=== PATIENT | female | born 1945 | race Caucasian/White ===

== ENCOUNTER 2021-07-27 01:30 | Inpatient (IN) | payer OTHER ==
[2021-07-27] MEDS ORDERED: NA CHLORIDE 0.9% 500 ML ONE (02:03)
[2021-07-27] MEDS ORDERED: ACETAMINOPHEN 325 MG TABLET ONE (02:03)
[2021-07-27] MEDS ORDERED: METOPROLOL TARTRATE 5 MG/5 ML INJ IV ONE ×3 (02:03→02:58)
[2021-07-27 03:01] LABS: Urine RBC <5 /HPF (NONE SEEN)
[2021-07-27 03:02] LABS: Urine Bacteria >50 /HPF (<20); Urine Mucus 1+ /HPF (NONE SEEN)
[2021-07-27 03:08] LABS: Protime INR 1.06
[2021-07-27] MEDS ORDERED: dilTIAZem HCL 25 MG/5 ML VIAL IV ONE (03:15)
[2021-07-27 03:26] LABS: Absolute Lymphocytes (CBC) 0.9 K/uL (0.7-4.9); Hematocrit 38.6 % (36.0-45.0); Lymphocytes % 9.1 % (15.3-44.8); MPV 8.1 fL (7.6-11.3)
[2021-07-27] MEDS ORDERED: ONDANSETRON 4 MG/2 ML VIAL ONE ×2 (03:43→22:11)
[2021-07-27] MEDS ORDERED: FENTANYL CITR 100 MCG/2 ML ONE ×3 (03:43→22:11)
[2021-07-27 03:49] LABS: Albumin 3.1 g/dL (3.4-5.0); Bilirubin Direct 0.1 mg/dL (0-0.2); Bilirubin Total 0.4 mg/dL (0.2-1.0); Protein, Total 7.6 g/dL (6.4-8.2)
[2021-07-27 04:04] LABS: Troponin (Emerg Dept Use Only) 0.1 ng/mL (0.0-0.045)
[2021-07-27 04:06] LABS: Magnesium 1.4 mg/dL (1.8-2.4)
[2021-07-27] MEDS ORDERED: Magnesium Sulfate 2gm IVPB 2 G/50 ML BAG IV ONE (04:12)
[2021-07-27] MEDS ORDERED: POTASSIUM 25 MEQ EFFERV TAB ONE (04:12)
--- NOTE | 2021-07-27 04:48 | ER ---
Nurse's Notes [facility] Name: Neela Staton Age: 76 yrs Sex: Female : 1945 Arrival Date: 07/27/2021 Time: 01:36 Bed 18 Private MD: Diagnosis: Atrail fibrillation with RVR. Elevated Troponin. Cervical strain. S/P Fall. Hypomagnesemia. Hypokalemia Presentation: 07/27 01:43 Chief complaint: Patient states: " I have this pain in my neck that comes and goes." tw5 EMS states: " She was called because she had a fall last night and tonight. Her main complaint is a pain in her neck that is intermediate". Coronavirus screen: Vaccine status: Patient reports receiving the 2nd dose of the covid vaccine. Date October 2020. Ebola Screen: Patient negative for fever greater than or equal to 101.5 degrees Fahrenheit, and additional compatible Ebola Virus Disease symptoms Patient denies exposure to infectious person. Patient denies travel to an Ebola-affected area in the 21 days before illness onset. 01:43 Method Of Arrival: EMS: [facility] tw5 01:48 Care prior to arrival: None. Mechanism of Injury: Fall Daughter states " going to the 5 bathroom with her walker". Trauma event details: Injury occurred in the [facility], Injury occurred: at home. Injury occurred: July 27, 2021 Injury occurred at: 09:00. 01:48 Acuity: BETHANY 3 tw5 02:41 Initial Sepsis Screen: Does the patient meet any 2 criteria? HR > 90 bpm. Does the tw5 patient have a suspected source of infection? No. Patient's initial sepsis screen is negative. Risk Assessment: Do you want to hurt yourself or someone else? Patient reports no desire to harm self or others. Onset of symptoms is unknown. Trauma Activation: Alert Physician: ED Physician; Name: Dr. FARNSWORTH; Notified At: ; Arrived At: Physician: General Surgeon; Name: ; Notified At: ; Arrived At: Physician: Radiology; Name: ; Notified At: ; Arrived At: Physician: Respiratory; Name: ; Notified At: ; Arrived At: Physician: Lab; Name: ; Notified At: ; Arrived At: Trauma Activation: Alert Physician: ED Physician; Name: Paulie; Notified At: 01:46; Arrived At: 01:46 Physician: General Surgeon; Name: N/A; Notified At: 01:46; Arrived At: Physician: Radiology; Name: Poncho; Notified At: 01:46; Arrived At: 01:48 Physician: Respiratory; Name: N/A; Notified At: 01:46; Arrived At: Physician: Lab; Name: N/A; Notified At: 01:46; Arrived At: Historical: - Allergies: 01:58 Codeine; tw5 - Home Meds: 02:34 alprazolam 0.25 mg Oral tab 1 tab twice a day [Active]; esomeprazole magnesium 40 mg tw5 oral cpDR 1 cap once daily [Active]; levothyroxine 100 mcg cap 1 cap once daily [Active]; trazodone 100 mg Oral tab 1 tab once daily [Active]; cyclobenzaprine 10 mg Oral tab 1 tab once daily [Active]; metoprolol succinate 50 mg oral CSpX 1 cap once daily [Active]; ezetimibe 10 mg oral tab 1 tab once daily [Active]; tamsulosin 0.4 mg oral cap 1 cap once daily [Active]; hydrochlorothiazide 25 mg Oral tab 1 tab once daily [Active]; hydrochlorothiazide 25 mg Oral tab 1 tab once daily [Active]; amlodipine 10 mg tab 1 tab once daily [Active]; Cymbalta 30 mg oral cpDR 1 cap once daily [Active]; - Immunization history: Last tetanus immunization: unknown. - Social history:: Smoking status: Patient reports the use of cigarette tobacco products, smokes one-half pack cigarettes per day. Screenin:20 Abuse screen: Denies threats or abuse. Denies injuries from another. Nutritional tw5 screening: No deficits noted. Tuberculosis screening: No symptoms or risk factors identified. Fall Risk Fall in past 12 months (25 points). Secondary diagnosis (15 points) IV access (20 points). Ambulatory Aid- Crutches/Cane/Walker (15 pts). Gait- Weak (10 pts.). Mental Status- Oriented to own ability (0 pts). Primary Survey: 01:48 NO uncontrolled hemorrhage observed. A: Airway: patent. Breathing/Chest: Respiratory tw5 pattern: regular. Circulation: Cardiac rhythm: atrial fibrillation with rapid ventricular response. Disability Alert. Exposure/Environment: All clothing and personal items were removed. Forensic evidence collection is not deemed to be indicated at this time. Items placed in patient belonging bag. Reassessment Airway Airway Patent Breathing/Chest Respiratory pattern Regular Circulation Heart rhythm Atrial fibrillation Disability Alert. Assessment: 01:48 General: Appears in no apparent distress. Behavior is calm, cooperative, appropriate tw5 for age. Pain: Pain currently is 0 out of 10 on a pain scale. at worst was 10 out of 10 on a pain scale. Quality of pain is described as dull, " it a dull and quick pain." Is intermittent. Neuro: Level of Consciousness is awake, alert, obeys commands. 01:52 General: Daughter at the bedside states ' She had Afib at one point in time, but this tw5 Afib is new". 02:05 Derm: Skin is Bruising that is dark purple, on submental area. tw5 02:20 Cardiovascular: Capillary refill < 3 seconds Rhythm is atrial fibrillation with rapid tw5 ventricular response. Respiratory: Airway is patent Trachea midline Respiratory pattern is regular. : Urine is cloudy. 02:20 EENT: Oral mucosa is dry. Derm: Skin is fragile, is thin, with poor turgor Skin is dry, tw5 Skin is normal. 03:23 Reassessment: Patient appears in no apparent distress at this time. No changes from tw5 previously documented assessment. 04:07 Pain: Pain currently is 7 out of 10 on a pain scale. tw5 Vital Signs: 01:43 BP 178 / 79; Pulse 141; Resp 14; Temp 97.9; Pulse Ox 97% on R/A; Weight 81.65 kg; tw5 Height 5 ft. 7 in. (170.18 cm); Pain 0/10; 02:25 BP 135 / 68; Pulse 132; Resp 14; Pulse Ox 98% on R/A; tw5 02:25 BP 132 / 100; Pulse 149; Resp 16; Pulse Ox 99% on R/A; tw5 02:56 BP 139 / 95; Pulse 121; Resp 16; Pulse Ox 97% on R/A; tw5 03:08 BP 124 / 91; Pulse 139; Resp 14; Pulse Ox 97% on R/A; tw5 03:33 BP 115 / 97; Pulse 114; Resp 18; Pulse Ox 95% on R/A; tw5 03:47 Pulse 118; tw5 01:43 Body Mass Index 28.19 (81.65 kg, 170.18 cm) tw5 Homero Coma Score: 01:48 Eye Response: spontaneous(4). Verbal Response: oriented(5). Motor Response: obeys tw5 commands(6). Total: 15. Trauma Score (Adult): 01:48 Eye Response: spontaneous(1); Verbal Response: oriented(1); Motor Response: obeys tw5 commands(2); Systolic BP: > 89 mm Hg(4); Respiratory Rate: 10 to 29 per min(4); [place] Score: 15; Trauma Score: 12 ED Course: 01:36 Patient arrived in ED. mw2 01:36 Flaquito Farnsworth MD is Attending Physician. pkl 01:43 Steffi Burks is Primary Nurse. 01:49 Triage completed. tw 02:05 No apparent distress. Awaiting lab results, Awaiting CT Scan. tw 02:05 Initial lab(s) drawn, by me, sent to lab. Urine collected: straight cath specimen, cloudy, Amount Returned: 100mL. 02:05 Maintain EMS IV. Dressing intact. Good blood return noted. Site clean \\T\\ dry. Gauge \\T\\ tw 5 site: 20 LAC. 02:05 Thermoregulation: warm blanket given to patient. tw 02:16 Basic Metabolic Panel Sent. tw 02:16 Basic Metabolic Panel Sent. 02:16 CBC with Diff Sent. 02:16 Magnesium Sent. tw 02:16 PT-INR Sent. tw 02:16 NT PRO-BNP Sent. tw 02:16 LFT's Sent. 02:16 Troponin (emerg Dept Use Only) Sent. 02:20 X-ray(s) taken. tw 02:20 Patient has correct armband on for positive identification. Placed in gown. Bed in low tw5 position. Call light in reach. Side rails up X 1. Adult w/ patient. site monitor on. Pulse ox on. NIBP on. Door closed. Noise minimized. Lights dimmed. Moved to private room. Verbal reassurance given. 02:[address] tw5 02:26 XRAY Chest (1 view) In Process Unspecified. EDMS 02:[address]. tw5 02:57 Urine Microscopic Only Sent. tw 02:57 NT PRO-BNP Sent. tw 02:57 Magnesium Sent. tw 02:57 LFT's Sent. tw 02:57 CBC with Diff Sent. tw 02:57 PT-INR Sent. tw 02:57 Troponin (emerg Dept Use Only) Sent. tw5 03:02 CT Traumagram (Head C Spine CAP wo con) In Process Unspecified. EDMS 04:05 Notified ED physician of a critical lab result(s). Magnesium of 1.4. Informed by Pat soler from the Lab. 04:44 Reid Blakely DO is Hospitalizing Provider. pkl 09:34 No provider procedures requiring assistance completed. Patient admitted, IV remains in ll1 place. 09:35 Patient maintains SpO2 saturation greater than 95% on room air. ll1 09:35 Patient n/a. ll1 Administered Medications: 02:08 Drug: Tylenol 650 mg Route: PO; tw 02:57 Follow up: Response: No adverse reaction; Pain is unchanged, physician notified tw5 02:11 Drug: Lopressor (metoprolol) 5 mg Route: IVP; Site: left antecubital; 02:57 Follow up: Response: No adverse reaction; Cardiac rhythm is unchanged tw 02:16 Drug: NS 0.9% 1000 ml Route: IV; Rate: 100 ml/hr; Site: left antecubital; tw 07:15 Follow up: Response: No adverse reaction; IV Status: Completed infusion; IV Intake: ll1 500ml 02:57 Drug: Lopressor (metoprolol) 5 mg Route: IVP; Site: left antecubital; tw 02:58 Follow up: Response: No adverse reaction; Cardiac rhythm is unchanged tw 03:05 Drug: Lopressor (metoprolol) 5 mg Route: IVP; Site: left antecubital; tw 03:22 Follow up: Response: No adverse reaction; Cardiac rhythm is unchanged 03:17 Drug: Cardizem (diltiazem) 10 mg Route: IVP; Site: left antecubital; tw5 03:47 Follow up: Pulse 118 bpm; Response: No adverse reaction tw5 03:47 Not Given (Physician Discretion): Cardizem (diltiazem) 10 mg IVP once; Over 2 minutes tw5 03:47 Drug: Zofran (Ondansetron) 4 mg Route: IVP; Site: left antecubital; tw5 04:05 Follow up: Response: No adverse reaction tw5 03:49 Drug: fentaNYL (PF) 25 mcg Route: IVP; Site: left antecubital; tw5 04:11 Follow up: Response: No adverse reaction tw5 04:33 Drug: Magnesium Sulfate 2 grams Route: IVPB; Infused Over: 2 hrs; Site: left tw5 antecubital; 06:45 Follow up: Response: No adverse reaction; IV Status: Completed infusion; IV Intake: ll1 100ml 04:33 Drug: K-Lyte (potassium) Effervescent Tablet 50 mEq Route: PO; tw5 09:33 Follow up: Response: No adverse reaction ll1 05:12 Drug: Lovenox (enoxaparin) 1 mg/kg Route: Sub-Q; Site: left lower abdomen; tw5 09:31 Follow up: Response: No adverse reaction ll1 Intake: 01:48 PO: 0ml; Total: 0ml. tw5 06:45 IV: 100ml; Total: 100ml. ll1 07:15 IV: 500ml; Total: 600ml. ll1 Output: 01:48 Urine: 0ml; Total: 0ml. tw5 Outcome: 04:47 Decision to Hospitalize by Provider. pkl 09:34 Admitted to ICU accompanied by nurse, family with patient, via stretcher, room ER HOLD ll1 30, on monitor, with chart, Report called to PER DIEM INTERPRETER 09:34 Condition: stable 09:34 Instructed on the need for admit. 09:35 Patient's length of stay in the Emergency Department was greater than 2 hours. ll1 09:35 Patient left the ED. ll1 Signatures: Dispatcher [employer] EDMS Flaquito Farnsworth MD MD pkl Shira Hardwick, RN RN lp1 Abe Steward mw2 Owen Millan RN RN ll1 Steffi Burks tw5
--- NOTE | 2021-07-27 04:48 | EDPHYS ---
Physician Documentation [facility] Name: Neela Staton Age: 76 yrs Sex: Female : 1945 Arrival Date: 07/27/2021 Time: 01:36 Bed 18 Private MD: ED Physician Flaquito Apodaca HPI: 07/27 01:58 This 76 yrs old Female presents to ER via EMS with complaints of Facial pkl Injury. 01:58 Details of fall: The patient fell from an upright position. Onset: The symptoms/episode pkl began/occurred yesterday, Patient fell again tonight. Associated injuries: The patient sustained injury to the head, neck injury, pain with movement. Historical: - Allergies: 01:58 Codeine; tw5 - Home Meds: 02:34 alprazolam 0.25 mg Oral tab 1 tab twice a day [Active]; esomeprazole magnesium 40 mg tw5 oral cpDR 1 cap once daily [Active]; levothyroxine 100 mcg cap 1 cap once daily [Active]; trazodone 100 mg Oral tab 1 tab once daily [Active]; cyclobenzaprine 10 mg Oral tab 1 tab once daily [Active]; metoprolol succinate 50 mg oral CSpX 1 cap once daily [Active]; ezetimibe 10 mg oral tab 1 tab once daily [Active]; tamsulosin 0.4 mg oral cap 1 cap once daily [Active]; hydrochlorothiazide 25 mg Oral tab 1 tab once daily [Active]; hydrochlorothiazide 25 mg Oral tab 1 tab once daily [Active]; amlodipine 10 mg tab 1 tab once daily [Active]; Cymbalta 30 mg oral cpDR 1 cap once daily [Active]; - Immunization history: Last tetanus immunization: unknown. - Social history:: Smoking status: Patient reports the use of cigarette tobacco products, smokes one-half pack cigarettes per day. ROS: 01:58 Eyes: Negative for injury, pain, redness, and discharge, ENT: Negative for injury, pkl pain, and discharge. 01:58 Neck: Positive for pain with movement. 01:58 Cardiovascular: Negative for chest pain. 01:58 Respiratory: Negative for cough, shortness of breath. 01:58 Abdomen/GI: Negative for abdominal pain, nausea, vomiting, and diarrhea. 01:58 Back: Negative for injury or acute deformity, acute changes. 01:58 : Negative for urinary symptoms. 01:58 MS/extremity: Negative for acute changes, injury or acute deformity. 01:58 Skin: Positive for ecchymosis, of the chin. 01:58 Neuro: Negative for altered mental status, loss of consciousness. Exam: 01:58 Eyes: Pupils equal round and reactive to light, extra-ocular motions intact. Lids and pkl lashes normal. Conjunctiva and sclera are non-icteric and not injected. Cornea within normal limits. Periorbital areas with no swelling, redness, or edema. 01:58 Head/face: Noted is ecchymosis, that is mild, of the chin. 01:58 Neck: ROM/movement: pain, that is moderate, with any movement. 01:58 Chest/axilla: Exam negative for acute changes. 01:58 Cardiovascular: Rate: tachycardic, actual rate is 141 bpm, Rhythm: irregularly irregular. 01:58 ECG was reviewed by the Attending Physician. Atrial fib. with RVR ( 141 ) 01:58 Respiratory: the patient does not display signs of respiratory distress, Respirations: normal, Breath sounds: are clear throughout. 01:58 Abdomen/GI: Bowel sounds: normal, Palpation: abdomen is soft and non-tender, in all quadrants. 01:58 Back: Exam negative for acute changes. 01:58 : Exam negative for acute changes. 01:58 Musculoskeletal/extremity: Exam is negative for acute changes. 01:58 Skin: Exam negative for rash. 01:58 Neuro: Orientation: is normal, Mentation: is normal, Cranial nerves: grossly normal, Motor: is normal. Vital Signs: 01:43 BP 178 / 79; Pulse 141; Resp 14; Temp 97.9; Pulse Ox 97% on R/A; Weight 81.65 kg; tw5 Height 5 ft. 7 in. (170.18 cm); Pain 0/10; 02:25 BP 135 / 68; Pulse 132; Resp 14; Pulse Ox 98% on R/A; tw5 02:25 BP 132 / 100; Pulse 149; Resp 16; Pulse Ox 99% on R/A; tw5 02:56 BP 139 / 95; Pulse 121; Resp 16; Pulse Ox 97% on R/A; tw5 03:08 BP 124 / 91; Pulse 139; Resp 14; Pulse Ox 97% on R/A; tw5 03:33 BP 115 / 97; Pulse 114; Resp 18; Pulse Ox 95% on R/A; tw5 03:47 Pulse 118; tw5 01:43 Body Mass Index 28.19 (81.65 kg, 170.18 cm) tw5 Homero Coma Score: 01:48 Eye Response: spontaneous(4). Verbal Response: oriented(5). Motor Response: obeys tw5 commands(6). Total: 15. Trauma Score (Adult): 01:48 Eye Response: spontaneous(1); Verbal Response: oriented(1); Motor Response: obeys tw5 commands(2); Systolic BP: > 89 mm Hg(4); Respiratory Rate: 10 to 29 per min(4); Homero Score: 15; Trauma Score: 12 MDM: 01:36 Patient medically screened. pkl 04:40 Data reviewed: vital signs, nurses notes, lab test result(s), EKG, radiologic studies, pkl CT scan, plain films. ED course: Talked to Elmer Lui ( COMPOSITION MIXER ) Admit to Dr. Blakely. 07/27 01:54 Order name: Basic Metabolic Panel pkl 07/27 01:54 Order name: CBC with Diff; Complete Time: 03:30 pkl 07/27 01:54 Order name: LFT's; Complete Time: 04:10 pkl 07/27 01:54 Order name: Magnesium; Complete Time: 04:10 pkl 07/27 01:54 Order name: NT PRO-BNP; Complete Time: 04:10 pkl 07/27 01:54 Order name: PT-INR; Complete Time: 03:23 pkl 07/27 01:54 Order name: Troponin (emerg Dept Use Only); Complete Time: 04:10 pkl 07/27 01:54 Order name: COVID-19 SARS RT PCR (Document "Date of Onset" if Symptomatic); Complete pk Time: 03:25 07/27 01:54 Order name: Basic Metabolic Panel; Complete Time: 04:10 EDMS 07/27 02:39 Order name: Urine Microscopic Only; Complete Time: 03:07 mw2 07/27 03:04 Order name: Urine Culture EDMS 07/27 06:51 Order name: Procalcitonin; Complete Time: 19:04 EDMS 07/27 09:04 Order name: Troponin I; Complete Time: 19:04 [facility] 07/27 09:04 Order name: T4 Free; Complete Time: 19:04 [facility] 07/27 01:54 Order name: XRAY Chest (1 view); Complete Time: 19:04 [facility] 07/27 01:54 Order name: EKG; Complete Time: 01:54 [facility] 07/27 01:56 Order name: CT Traumagram (Head C Spine CAP wo con) pk 07/27 09:04 Order name: Thyroid Stimulating Hormone; Complete Time: 19:04 [facility] 07/27 01:54 Order name: Cardiac monitoring; Complete Time: 01:58 [facility] 07/27 01:54 Order name: EKG - Nurse/Tech; Complete Time: 02:16 [facility] 07/27 01:54 Order name: IV Saline Lock; Complete Time: 02:16 [facility] 07/27 01:54 Order name: Labs collected and sent; Complete Time: 02:16 [facility] 07/27 01:54 Order name: O2 Per Protocol; Complete Time: 02:16 [facility] 07/27 01:54 Order name: O2 Sat Monitoring; Complete Time: 02:16 [facility] 07/27 01:54 Order name: Urine Dipstick-Ancillary (obtain specimen); Complete Time: 02:16 pk Administered Medications: 02:08 Drug: Tylenol 650 mg Route: PO; tw5 02:57 Follow up: Response: No adverse reaction; Pain is unchanged, physician notified tw5 02:11 Drug: Lopressor (metoprolol) 5 mg Route: IVP; Site: left antecubital; tw5 02:57 Follow up: Response: No adverse reaction; Cardiac rhythm is unchanged tw5 02:16 Drug: NS 0.9% 1000 ml Route: IV; Rate: 100 ml/hr; Site: left antecubital; tw5 07:15 Follow up: Response: No adverse reaction; IV Status: Completed infusion; IV Intake: ll1 500ml 02:57 Drug: Lopressor (metoprolol) 5 mg Route: IVP; Site: left antecubital; tw5 02:58 Follow up: Response: No adverse reaction; Cardiac rhythm is unchanged tw5 03:05 Drug: Lopressor (metoprolol) 5 mg Route: IVP; Site: left antecubital; tw5 03:22 Follow up: Response: No adverse reaction; Cardiac rhythm is unchanged tw5 03:17 Drug: Cardizem (diltiazem) 10 mg Route: IVP; Site: left antecubital; tw5 03:47 Follow up: Pulse 118 bpm; Response: No adverse reaction tw 03:47 Not Given (Physician Discretion): Cardizem (diltiazem) 10 mg IVP once; Over 2 minutes tw5 03:47 Drug: Zofran (Ondansetron) 4 mg Route: IVP; Site: left antecubital; tw5 04:05 Follow up: Response: No adverse reaction tw5 03:49 Drug: fentaNYL (PF) 25 mcg Route: IVP; Site: left antecubital; tw5 04:11 Follow up: Response: No adverse reaction tw5 04:33 Drug: Magnesium Sulfate 2 grams Route: IVPB; Infused Over: 2 hrs; Site: left tw5 antecubital; 06:45 Follow up: Response: No adverse reaction; IV Status: Completed infusion; IV Intake: ll1 100ml 04:33 Drug: K-Lyte (potassium) Effervescent Tablet 50 mEq Route: PO; tw5 09:33 Follow up: Response: No adverse reaction ll1 05:12 Drug: Lovenox (enoxaparin) 1 mg/kg Route: Sub-Q; Site: left lower abdomen; tw5 09:31 Follow up: Response: No adverse reaction ll1 Disposition Summary: 07/27/21 04:47 Hospitalization Ordered Hospitalization Status: Inpatient Admission pkl Provider: Reid Blakely pkjef Condition: Stable pkl Problem: new pkl Symptoms: are unchanged pkl Bed/Room Type: Standard pkl Location: [facility] ER HOLD(07/27/21 05:22) Room Assignment: ERHOLD-(07/27/21 05:22) cg Diagnosis - Atrail fibrillation with RVR. Elevated Troponin. Cervical strain. S/P pkl Fall. Hypomagnesemia. Hypokalemia Forms: - Medication Reconciliation Form pkl - SBAR form pkl Signatures: Dispatcher [employer] Flaquito Mckeon MD MD pkl Shira Hardwick RN RN lp1 Elmer Lui, CRUZ-C WARDROBE MANAGER-[facility]1 Zo Wallace RN RN Steffi Marin tw5 Owen Millan RN ll1 Corrections: (The following items were deleted from the chart) 04:58 04:47 Telemetry/MedSurg (Inpatient) pkl la1 04:58 04:[facility] 05:22 04:58 Int[facility] cg 05: 04:58 [facility] cg
[2021-07-27] MEDS ORDERED: ENOXAPARIN 80 MG/0.8 ML SQ ONE ×3 (05:09→20:44)
--- NOTE | 2021-07-27 05:13 | P.HP ---
Certification for Inpatient Patient admitted to: Inpatient With expected LOS: >2 Midnights Patient will require the following post-hospital care: None Practitioner: I am a practitioner with admitting privileges, knowledge of patient current condition, hospital course, and medical plan of care. Services: Services provided to patient in accordance with Admission requirements found in Title 42 Section 412.3 of the Code of Federal Regulations Patient History Date of Service: 07/27/21 Primary Care Provider: Out of town Reason for admission: A. fib RVR History of Present Illness: 76-year-old female with history of hypertension, hypothyroidism, anxiety presents emergency department for weakness/multiple falls. Patient reports 2 falls over the course of the last 24 hours patient not sure why she fell denies slipping or tripping, denies loss of consciousness. Patient with bruising noted to chin, face upon arrival patient noted to be in A. fib RVR with rate around 140-150. Patient reports possible remote history of A. fib but not active that she is aware of, patient not on any anticoagulation. Patient was further evaluated in the emergency department labs were significant for potassium 3.0 BUN 19 GFR 56 glucose 134 calcium 8.4 magnesium 1.4 troponin 0.1 BNP 3465 urine microscopic dialysis with greater than 50 bacteria but also 10-20 squamous cells patient denies any urinary symptoms at this time no fever or elevated white blood cell count to suggest urinary tract infection. Covid swab negative patient had CT head neck/chest abdomen pelvis which was negative for any acute findings. Patient received Lopressor 5 mg IV x3 and Cardizem 10 mg IV x2, still in A. fib RVR with rate around 120, ED provider wishes to admit for further evaluation and management of A. fib RVR, hypomagnesemia, hypokalemia. - Past Medical/Surgical History -: Hypertension -: Hypothyroidism -: Anxiety -: Hysterectomy -: Cholecystectomy -: Back/ neck surgeries Psychosocial/ Personal History: Patient lives at home with her daughter - Family History Father -: Heart disease Mother -: Diabetes Sister -: Cancer - Social History Smoking Status: Current every day smoker Counseled patient to stop smoking for: less than 10 minutes Smoking therapy provided: No (Patient declined) Alcohol use: No CD- Drugs: No Caffeine use: Yes Place of Residence: Home Review of Systems 10-point ROS is otherwise unremarkable General: Weakness, Malaise Respiratory: Shortness of Breath, SOB with Excertion Physical Examination - Physical Exam General: Alert, In no apparent distress, Oriented x3 HEENT: Atraumatic, PERRLA, Mucous membr. moist/pink, EOMI, Sclerae nonicteric Neck: Supple, 2+ carotid pulse no bruit, No LAD, Without JVD or thyroid abnormality Respiratory: Clear to auscultation bilaterally, Normal air movement Cardiovascular: Irregular heart rate/rhythm (A. fib RVR rate 130) Capillary refill: <2 Seconds Gastrointestinal: Normal bowel sounds, No tenderness Musculoskeletal: No tenderness Integumentary: No rashes Neurological: Normal speech, Normal strength at 5/5 x4 extr, Normal tone, Normal affect - Studies Laboratory Data (last 24 hrs) 07/27/21 02:53: PT 12.2, INR 1.06 07/27/21 02:53: WBC 9.80, Hgb 12.5, Hct 38.6, Plt Count 298 07/27/21 02:53: Sodium 139, Potassium 3.0 L, BUN 19 H, Creatinine 0.97, Glucose 134 H, Magnesium 1.4 L*, Total Bilirubin 0.4, AST 14 L, ALT 14, Alkaline Phosphatase 89 Assessment and Plan - Plan Assessment: New onset atrial fibrillation with rapid ventricular response and elevated troponin likely demand ischemia Hypomagnesemia, hypokalemia Hypertension Hypothyroidism Anxiety Plan: New onset atrial fibrillation with rapid ventricular response and elevated troponin likely demand ischemia: Patient received 3 doses of IV Lopressor and 2 doses of IV Cardizem in the emergency department, currently receiving IV magnesium/potassium rate currently around 120-130. We will keep as ICU status at this time and monitor on telemetry, patient may require further therapy with possible amiodarone drip if rate does not become better controlled. Cardiology consult in place echocardiogram ordered, will continue patient's metoprolol 50 mg p.o. twice daily, await further recommendations from cardiology. Patient also covered with full dose Lovenox. Hypomagnesemia, hypokalemia: Replaced in ER, protocol in place Hypertension: Have continued metoprolol Hypothyroidism: Continue levothyroxine gather thyroid panel Anxiety: Xanax, trazodone continued DVT PPX: Full dose Lovenox Code status: Full code Discharge Plan: Home Plan to discharge in: 48 Hours - Advance Directives Does patient have a Living Will: No Does patient have a Durable POA for Healthcare: No - Code Status/Comfort Care Code Status Assessed: Yes (Full code) Critical Care: No Time Spent Managing Pts Care (In Minutes): 55
--- NOTE | 2021-07-27 05:58 | P.PN ---
Subjective Date of Service: 07/27/21 Primary Care Provider: Out of town Chief Complaint: A. fib RVR Subjective: Improving Physical Examination - Studies Laboratory Data (last 24 hrs) 07/27/21 02:53: PT 12.2, INR 1.06 07/27/21 02:53: WBC 9.80, Hgb 12.5, Hct 38.6, Plt Count 298 07/27/21 02:53: Sodium 139, Potassium 3.0 L, BUN 19 H, Creatinine 0.97, Glucose 134 H, Magnesium 1.4 L*, Total Bilirubin 0.4, AST 14 L, ALT 14, Alkaline Phosphatase 89 Assessment & Plan Discharge Plan: Home Plan to discharge in: 48 Hours Physician Review Additional Text: COVID: negative CXR: COMPARISON: None TECHNIQUE: AP portable chest image was obtained 07/27/2021 2:26 am . FINDINGS: Lungs are clear. Heart and vasculature are normal. No measurable pleural effusion and no pneumothorax. No gross bone deformity seen. Rib detail is limited on portable imaging. Concerns for rib fracture can be addressed with dedicated rib series or CT chest imaging. No acute aortic findings suspected. IMPRESSION: No acute cardiopulmonary process. Physical Exam: General: Alert, In no apparent distress, Oriented x3 HEENT: Atraumatic, PERRLA, Mucous membr. moist/pink, EOMI, Sclerae nonicteric Neck: Supple, 2+ carotid pulse no bruit, No LAD, Without JVD or thyroid abnormality Respiratory: Clear to auscultation bilaterally, Normal air movement Cardiovascular: A. fib rate around 110-120 Capillary refill: <2 Seconds Gastrointestinal: Normal bowel sounds, No tenderness Musculoskeletal: No tenderness Integumentary: No rashes Neurological: Normal speech, Normal strength at 5/5 x4 extr, Normal tone, Normal affect Impression: New onset atrial fibrillation with rapid ventricular response and elevated troponin likely demand ischemia Hypomagnesemia, hypokalemia Hypertension Hypothyroidism Anxiety Hyperlipidemia GERD Plan: New onset atrial fibrillation with rapid ventricular response and elevated troponin likely demand ischemia: Patient appears stable. Patient received IV Lopressor and IV Cardizem in the emergency room. Patient takes metoprolol at home. Will increase metoprolol to 50 mg 1 pill twice daily. Patient remains on Lovenox at 1 mg/kg subcu twice daily. Patient will require anticoagulation therapy at discharge. Echocardiogram obtained. Cardiology consulted. Await recommendations. Will replace electrolytes. We will continue to monitor closely. Anticipate improvement over the next 48 hours. Hypomagnesemia, hypokalemia: Electrolyte protocol in place. We will continue to monitor and adjust. Hypertension: Will increase metoprolol to 50 mg 1 pill twice daily Hypothyroidism: Continue levothyroxine 100 mcg daily Anxiety: Continue with Xanax as needed. Restart trazodone for insomnia. Hyperlipidemia: Restart home medication Zetia GERD: We will provide PPI. DVT PPX: Full dose Lovenox Code status: Full code Discharge Plan: Home at discharge Time Spent Managing Pts Care (In Minutes): 55
[2021-07-27 06:14] VITALS: BMI 28.1
[2021-07-27] MEDS ORDERED: TRAZODONE 50 MG TABLET PO PRN ×2 (06:26→09:50)
[2021-07-27] MEDS ORDERED: ALPRAZOLAM 0.25 MG TABLET PO PRN (06:26)
[2021-07-27] MEDS ORDERED: ONDANSETRON 4 MG/2 ML VIAL IV PRN (06:26)
[2021-07-27] MEDS ORDERED: PANTOPRAZOLE 40MG TABLET PO ONE (07:11)
[2021-07-27] MEDS ORDERED: METOPROLOL XL 50 MG TAB PO ONE (07:11)
[2021-07-27] MEDS: PANTOPRAZOLE 40MG TABLET PO SCH (07:31)
[2021-07-27] MEDS: METOPROLOL XL 50 MG TAB PO SCH ×2 (07:31→18:00)
[2021-07-27] MEDS: LEVOTHYROXINE SOD 0.1 MG TAB PO SCH (08:01)
[2021-07-27] MEDS ORDERED: TRAMADOL HCL 50 MG TAB ONE (08:02)
[2021-07-27] MEDS: TRAMADOL HCL 50 MG TAB PO PRN (08:04)
[2021-07-27 08:18] VITALS: O2SAT 95
[2021-07-27] MEDS ORDERED: MAGNESIUM SULFATE 1 gm IVPB 1 GM/100 ML BAG IV ONE ×2 (08:20→08:28)
[2021-07-27] MEDS ORDERED: POTASSIUM CL SA 10 MEQ TAB PO ONE ×2 (08:26→08:28)
[2021-07-27 09:00] LABS: Troponin I 0.1 ng/mL (0.0-0.045)
--- NOTE | 2021-07-27 09:01 | RAD REPORT ---
EXAM DESCRIPTION: RAD - Chest Single View - 07/27/2021 2:26 am CLINICAL HISTORY: fall COMPARISON: None TECHNIQUE: AP portable chest image was obtained 07/27/2021 2:26 am . FINDINGS: Lungs are clear. Heart and vasculature are normal. No measurable pleural effusion and no p neumothorax. No gross bone deformity seen. Rib detail is limited on portable imaging. Concerns for ri b fracture can be addressed with dedicated rib series or CT chest imaging. No acute aortic findings s uspected. IMPRESSION: No acute cardiopulmonary process.
[2021-07-27 09:04] LABS: Thyroid Stimulating Hormone 4.94 uIU/mL (0.360-3.740)
[2021-07-27] MEDS ORDERED: HYDROCODONE/APAP 7.5/325 MG TAB PO ONE (11:38)
[2021-07-27] MEDS ORDERED: PNEUMOCOCCAL VACCINE 0.5 ML IMVAC ONE (14:00)
--- NOTE | 2021-07-27 20:03 | RAD REPORT ---
EXAM DESCRIPTION: CT - Head C Spine Cap Wo Con - 07/27/2021 5:59 am CLINICAL HISTORY: 76 years Female fall TECHNIQUE: Multiple axial CT images of the brain and cervical spine were performed followed by sagit simon and coronal reconstructed images. The CT study is performed according to ALARA (as low as reasona chi achievable) or ALARA/IMAGE GENTLY, with automatic adjustment of mA and/or kV according to patient size. Performed on: 07/27/2021 at 2:10 AM COMPARISON: Head CT report from 12/15/2013, CT chest report from 02/12/[address] abdomen and pelvis re port from 02/10/2017. The images were not available for review. FINDINGS: CT HEAD: There is no evidence of mass, acute mass effect or midline shift. There are no acute extra-axial flui d collections. There is no evidence of acute intracranial hemorrhage. There is a probable arachnoid cyst over the left frontal convexity. This was described on the previous brain MRI from 02/26/2015. The cerebral sulci and ventricles are prominent consistent with moderate cerebral volume loss. There are scattered areas of decreased attenuation within the subcortical and periventricular white m atter most consistent with chronic moderate microangiopathy. There are mucous retention cysts within the maxillary sinuses. Paranasal sinuses are otherwise grossl y clear. The mastoid air cells are clear. The orbital contents are grossly unremarkable. No acute osseous abnormalities are identified. No focal soft tissue abnormalities are identified. CT CERVICAL SPINE: The cervical vertebrae are normal in height. There is normal alignment of the vertebrae. There are re mote postsurgical changes of the cervical spine consistent with anterior fusion of C5-C7. There is no evidence to suggest hardware failure. There are intervertebral disc spacers at these levels. The dis c spaces are otherwise well preserved in height. Bone mineralization is normal. The atlanto-axial articulation is preserved and the odontoid process is intact. There is normal alignment of the facet joints on the parasagittal images. There are mild degenerative changes of the cervical spine. There is no evidence of acute fracture or subluxation. There is no significant canal stenosis. Ther e is mild left C5-C6 and mild bilateral C6-C7 neural foraminal stenosis secondary to uncovertebral mendez int hypertrophy. The paravertebral and paraspinal soft tissues are unremarkable. The lung apices reveal mild emphysematous changes. CHEST: Lungs: The lungs are well-expanded. There is mild centrilobular emphysema best appreciated in the upp er lobes. There is mild subpleural interstitial thickening in the lower lobes which is likely related to fibrosis. No focal airspace consolidation is identified. There are no pleural effusions. There is no pneumothorax. The central airways are patent. Heart: The heart is normal in size. There is no pericardial effusion. There are mild coronary art giovanni calcifications. Mediastinum: The mediastinum is unremarkable. The mediastinal vessels are normal in caliber and con tour. There are moderate atherosclerotic calcifications along the thoracic aorta. Bones: No acute osseous abnormalities are identified. The thoracic vertebrae are normal in height and alignment. There is very mild degenerative spurring along the vertebral endplates. The bony thorax i s grossly unremarkable. Soft tissues: No focal soft tissue abnormalities are identified. Lymphadenopathy: No pathologic hilar, mediastinal or axillary lymphadenopathy is identified. ABDOMEN/PELVIS: Liver: The liver is normal in size and configuration. No focal hepatic abnormalities are identified. Liver attenuation is within normal limits. Spleen: The spleen is normal is size, configuration and attenuation. Gallbladder and bile duct: The gallbladder is not well visualized and is likely surgically absent. There is no biliary ductal dilatation. Pancreas: The pancreas is grossly normal in size and configuration. Adrenal Glands: The adrenal glands are normal in size and configuration. Kidneys: The kidneys are normal in size and configuration. There is no evidence of hydronephrosis. Th ere are punctate bilateral nonobstructing renal calculi. There are likely small bilateral renal cysts . Stomach: The stomach is grossly normal. There is a small hiatal hernia. Bowel: The bowel gas pattern is non specific and non obstructive. Appendix: There is no CT evidence of acute appendicitis. Free air: There is no evidence of free air. Free fluid: There is no evidence of free fluid. Vasculature: The aorta is normal in caliber and contour. The inferior vena cava is grossly unremarkab le. There are moderate atherosclerotic calcifications along the abdominal aorta and major branch vess els. Lymphadenopathy: No pathologic lymphadenopathy is identified. Bladder: The bladder is well distended and smooth in contour. Reproductive: The uterus is surgically absent. Bones: No acute osseous abnormalities are identified. There are postsurgical changes of the lumbar sp ine at the L4-L5 level with prior laminectomies. There are degenerative changes of the facet joints a t these levels. Soft tissues: No focal soft tissue abnormalities are identified. There is a small fat-containing vent ral umbilical hernia. IMPRESSION: CT HEAD: 1. There is no evidence of acute intracranial pathology. 2. Moderate cerebral atrophy with findings compatible with chronic microangiopathy. 3. Small bilateral maxillary sinus mucous retention cysts. CT CERVICAL SPINE: 1. No evidence of acute cervical spine injury. 2. Remote anterior cervical fusion of C5-C7 without definite hardware failure. 3. Mild degenerative changes of the cervical spine as described above. CT CHEST: 1. No evidence of acute intrathoracic disease. 2. Mild centrilobular emphysema predominantly involving the upper lobes. 3. Mild parenchymal fibrosis in the dependent portions of the lungs. 4. No definite acute osseous abnormality. No acute thoracic vertebral abnormalities are identified. CT ABDOMEN AND PELVIS: 1. No acute intra-abdominal or intrapelvic pathology. There is no evidence to suggest solid organ inj ury. 2. Remote cholecystectomy and hysterectomy. 3. Punctate bilateral nonobstructing renal calculi. 4. Small hiatal hernia. 5. Remote postsurgical changes of the lumbar spine consistent with prior laminectomies at L4 and L5. No acute lumbar vertebral abnormalities are identified. 6. Small fat-containing ventral umbilical hernia. 7. Moderate atherosclerotic calcifications. Electronically signed by: Lila Curry DO 07/27/2021 4:27 AM [employer] Due to temporary technical issues with the PACS/Fluency reporting system, reports are being signed by the in house radiologists without review as a courtesy to insure prompt reporting. The interpreting radiologist is fully responsible for the content of the report.
[2021-07-27] MEDS: ENOXAPARIN 80 MG/0.8 ML SQ SCH (20:47)
[2021-07-27] MEDS ORDERED: HYDROCODONE/APAP 7.5/325 MG TAB ONE (20:49)
[2021-07-27] MEDS ORDERED: ALPRAZOLAM 0.25 MG TABLET ONE (20:50)
[2021-07-27] MEDS: HYDROCODONE/APAP 7.5/325 MG TAB PO PRN (20:52)
[2021-07-27] MEDS ORDERED: MORPHINE 2 MG/ML SYR ONE (22:28)
[2021-07-27] MEDS: MORPHINE 2 MG/ML SYR IV PRN (22:31)
--- OUTSIDE RECORDS SUMMARY | 2021-07-27 23:28 | XMS REPORT | Continuity of Care Document ---
:1945 Author Organization [facility] t Address [address] [place] [address] 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 [facility] (periphera (periphera 0-15 He alth l arterial l arterial 00:00: occlusive occlusive 00 disease) disease) Rest pain Rest pain Disease Active 2020-09 [facility] of lower of lower 0-15 Health extremity extremity 00:00: due to due to 00 atheroscle atheroscle rosis rosis Allergies, Adverse Reactions, Alerts Allergy Allergy Status Severity Reaction(s) Onset Inactive Treating Comm ents Source Name Type Date Date Clinician Codeine Allergy Active Unknown [facility] to 03-30 [facility] 00:00: e 00 Social History Social Habit Start Date Stop Date Quantity Comments Source Tobacco use and 2021-06-28 2021-06-28 Smokeless tobacco [facility] exposure 00:00:00 00:00:00 non-user Sex Assigned At [birth year] [facility] 00:00:00 00:00:00 Smoking Status Start Date Stop Date Source Smokes tobacco daily 2021-06-28 00:00:00 [facility] Medications Ordered Filled Start Stop Current Ordering Indication Dosage Frequency Signature Comments Components Source Medication Medication Date Date Medication? Clinician (SIG) Name Name traMADol 2020-09- Yes [id number] 50mg Take 1 U T (Ultram) 50 1-02 11-08 tablet (50 H ealth MG tablet 00:00: 05:59 mg total) 00 :00 by mouth every 8 (eight) hours if needed for severe pain for up to 5 days. traMADol 2020-09- Yes [id number] 50mg Q6H Take 1 U T (Ultram) 50 0-15 10-23 tablet (50 H ealth MG tablet 00:00: 04:59 mg total) 00 :00 by mouth every 6 (six) hours if needed for severe pain for up to 7 days. amLODIPine Yes [facility] (Norvasc) 9-19 Health 10 MG 00:00: tablet 00 levothyroxi 2020-0 Yes [facility] ne 9-19 Health (Synthroid, 00:00: Levoxyl) 00 100 MCG tablet tamsulosin Yes [facility] (Flomax) 9-19 Health 0.4 MG 24 00:00: hr capsule 00 amLODIPine 2020-0 Yes [facility] (Norvasc) 9- Health 10 MG 00:00: tablet 00 levothyroxi 2020-0 Yes [facility] ne 9-19 [facility] (Synthroid, 00:00: Levoxyl) 00 100 MCG tablet tamsulosin 0 Yes [facility] (Flomax) 9-19 Health 0.4 MG 24 00:00: hr capsule 00 ALPRAZolam 0 Yes [facility] (Xanax) 9-08 Health 0.25 MG 00:00: tablet 00 ALPRAZolam 2020-0 Yes [facility] (Xanax) 9-08 Health 0.25 MG 00:00: tablet 00 traZODone 2020-0 Yes 100mg Take 100 [facility] (Desyrel) 9-02 mg by Health 100 MG 00:00: mouth tablet 00 every night. traZODone 2020-0 Yes 100mg Take 100 [facility] (Desyrel) 9-02 mg by Health 100 MG 00:00: mouth tablet 00 every night. metoprolol 2020-0 Yes [facility] succinate 05-14 Health XL 00:00: (Toprol-XL) 00 50 MG 24 hr tablet metoprolol 2020-0 Yes [facility] succinate 05-14 Health XL 00:00: (Toprol-XL) 00 50 MG 24 hr tablet ezetimibe 2020-0 Yes [facility] (Zetia) 10 8-15 Health MG tablet 00:00: 00 ezetimibe 1-0 Yes [facility] (Zetia) 10 8-15 Health MG tablet 00:00: 00 esomeprazol 2020-0 Yes 40mg Take 40 mg UT e (NexIUM) 8-06 by mouth [facility]alt [facility] [address] 00:00: every capsule 00 night. hydroCHLORO 1-0 Yes 25mg Take 25 mg [facility] thiazide 8-06 by mouth 1 Healt h (HYDRODiuri 00:00: (one) time l) 25 MG 00 each day tablet in the morning. esomeprazol 1-0 Yes 40mg Take 40 mg [facility] e (NexIUM) 8-06 by mouth [facility] [address] 00:00: every capsule 00 night. hydroCHLORO 2020-0 Yes 25mg Take 25 mg [facility] thiazide 8-06 by mouth 1 Healt h (HYDRODiuri 00:00: (one) time l) 25 MG 00 each day tablet in the morning. cyclobenzap 2020-0 Yes 10mg Take 10 mg UT rine 7-25 by mouth Health (Flexeril) 00:00: every 10 MG 00 night. tablet cyclobenzap 2020-0 Yes 10mg Take 10 mg UT rine 7-25 by mouth Health (Flexeril) 00:00: every 10 MG 00 night. tablet Procedures This patient has no known procedures. Encounters Start End Encounter Admission Attending Care Care Encounter Source Date/Time Date/Time Type Type Clinicians Facility Department ID 2021-07-23 Outpatient [facility] [id number] [place] 10:43:22 [facility] 2021-07-23 Outpatient [facility] [id number] [place] 10:42:25 [facility] 2021-07-23 Outpatient [facility] [id number] [place] 10:36:58 [facility] 2021-07-16 2021-07-16 Office Ko [facility] [id number] [place] 09:51:23 10:45:55 Visit [facility] [id number] [address] [id number] 2021-06-28 2021-06-28 Office Ko [facility] [id number] [place] 09:49:14 10:45:59 Visit [facility] [id number] [address] 1 [id number] Results This patient has no known results.
[2021-07-28 05:58] LABS: Basophils % 1.2 % (0-1.3); Hematocrit 34.4 % (36.0-45.0); Lymphocytes % 19.1 % (15.3-44.8); MPV 8.2 fL (7.6-11.3); RBC Red Blood Cell Count 3.97 M/uL (3.86-4.86)
--- NOTE | 2021-07-28 06:21 | P.PN ---
Subjective Date of Service: 07/28/21 Primary Care Provider: Out of town Chief Complaint: A. fib RVR Subjective: Improving, Doing well Physical Examination - Vital Signs Temperature: 98.1 F Blood Pressure: 170/77 Pulse: 60 Respirations: 14 Pulse Ox (%): 95 Assessment & Plan Discharge Plan: Home Plan to discharge in: 24 Hours Physician Review Additional Text: COVID: negative CXR: COMPARISON: None TECHNIQUE: AP portable chest image was obtained 07/27/2021 2:26 am . FINDINGS: Lungs are clear. Heart and vasculature are normal. No measurable pleural effusion and no pneumothorax. No gross bone deformity seen. Rib detail is limited on portable imaging. Concerns for rib fracture can be addressed with dedicated rib series or CT chest imaging. No acute aortic findings suspected. IMPRESSION: No acute cardiopulmonary process. CT Scan: COMPARISON: Head CT report from 12/15/2013, CT chest report from 02/12/[address] abdomen and pelvis report from 02/10/2017. The images were not available for review. FINDINGS: CT HEAD: There is no evidence of mass, acute mass effect or midline shift. There are no acute extra-axial fluid collections. There is no evidence of acute intracranial hemorrhage. There is a probable arachnoid cyst over the left frontal convexity. This was described on the previous brain MRI from 02/26/2015. The cerebral sulci and ventricles are prominent consistent with moderate cerebral volume loss. There are scattered areas of decreased attenuation within the subcortical and periventricular white matter most consistent with chronic moderate microangiopathy. There are mucous retention cysts within the maxillary sinuses. Paranasal sinuses are otherwise grossly clear. The mastoid air cells are clear. The orbital contents are grossly unremarkable. No acute osseous abnormalities are identified. No focal soft tissue abnormalities are identified. CT CERVICAL SPINE: The cervical vertebrae are normal in height. There is normal alignment of the vertebrae. There are remote postsurgical changes of the cervical spine consistent with anterior fusion of C5-C7. There is no evidence to suggest hardware failure. There are intervertebral disc spacers at these levels. The disc spaces are otherwise well preserved in height. Bone mineralization is normal. The atlanto-axial articulation is preserved and the odontoid process is intact. There is normal alignment of the facet joints on the parasagittal images. There are mild degenerative changes of the cervical spine. There is no evidence of acute fracture or subluxation. There is no significant canal stenosis. There is mild left C5-C6 and mild bilateral C6-C7 neural foraminal stenosis secondary to uncovertebral joint hypertrophy. The paravertebral and paraspinal soft tissues are unremarkable. The lung apices reveal mild emphysematous changes. CHEST: Lungs: The lungs are well-expanded. There is mild centrilobular emphysema best appreciated in the upper lobes. There is mild subpleural interstitial thickening in the lower lobes which is likely related to fibrosis. No focal airspace consolidation is identified. There are no pleural effusions. There is no pn eumothorax. The central airways are patent. Heart: The heart is normal in size. There is no pericardial effusion. There are mild coronary artery calcifications. Mediastinum: The mediastinum is unremarkable. The mediastinal vessels are normal in caliber and contour. There are moderate atherosclerotic calcifications along the thoracic aorta. Bones: No acute osseous abnormalities are identified. The thoracic vertebrae are normal in height and alignment. There is very mild degenerative spurring along the vertebral endplates. The bony thorax is grossly unremarkable. Soft tissues: No focal soft tissue abnormalities are identified. Lymphadenopathy: No pathologic hilar, mediastinal or axillary lymphadenopathy is identified. ABDOMEN/PELVIS: Liver: The liver is normal in size and configuration. No focal hepatic abnormalities are identified. Liver attenuation is within normal limits. Spleen: The spleen is normal is size, configuration and attenuation. Gallbladder and bile duct: The gallbladder is not well visualized and is likely surgically absent. There is no biliary ductal dilatation. Pancreas: The pancreas is grossly normal in size and configuration. Adrenal Glands: The adrenal glands are normal in size and configuration. Kidneys: The kidneys are normal in size and configuration. There is no evidence of hydronephrosis. There are punctate bilateral nonobstructing renal calculi. There are likely small bilateral renal cysts. Stomach: The stomach is grossly normal. There is a small hiatal hernia. Bowel: The bowel gas pattern is non specific and non obstructive. Appendix: There is no CT evidence of acute appendicitis. Free air: There is no evidence of free air. Free fluid: There is no evidence of free fluid. Vasculature: The aorta is normal in caliber and contour. The inferior vena cava is grossly unremarkable. There are moderate atherosclerotic calcifications along the abdominal aorta and major branch vessels. Lymphadenopathy: No pathologic lymphadenopathy is identified. Bladder: The bladder is well distended and smooth in contour. Reproductive: The uterus is surgically absent. Bones: No acute osseous abnormalities are identified. There are postsurgical changes of the lumbar spine at the L4-L5 level with prior laminectomies. There are degenerative changes of the facet joints at these levels. Soft tissues: No focal soft tissue abnormalities are identified. There is a small fat-containing ventral umbilical hernia. IMPRESSION: CT HEAD: 1. There is no evidence of acute intracranial pathology. 2. Moderate cerebral atrophy with findings compatible with chronic microangiopathy. 3. Small bilateral maxillary sinus mucous retention cysts. CT CERVICAL SPINE: 1. No evidence of acute cervical spine injury. 2. Remote anterior cervical fusion of C5-C7 without definite hardware failure. 3. Mild degenerative changes of the cervical spine as described above. CT CHEST: 1. No evidence of acute intrathoracic disease. 2. Mild centrilobular emphysema predominantly involving the upper lobes. 3. Mild parenchymal fibrosis in the dependent portions of the lungs. 4. No definite acute osseous abnormality. No acute thoracic vertebral abnormalities are identified. CT ABDOMEN AND PELVIS: 1. No acute intra-abdominal or intrapelvic pathology. There is no evidence to suggest solid organ injury. 2. Remote cholecystectomy and hysterectomy. 3. Punctate bilateral nonobstructing renal calculi. 4. Small hiatal hernia. 5. Remote postsurgical changes of the lumbar spine consistent with prior laminectomies at L4 and L5. No acute lumbar vertebral abnormalities are identified. 6. Small fat-containing ventral umbilical hernia. 7. Moderate atherosclerotic calcifications. Physical Exam: General: Alert, In no apparent distress, Oriented x3 HEENT: Atraumatic, PERRLA, Mucous membr. moist/pink, EOMI, Sclerae nonicteric Neck: Supple, 2+ carotid pulse no bruit, No LAD, Without JVD or thyroid abnormality Respiratory: Clear to auscultation bilaterally, Normal air movement Cardiovascular: A. fib rate around 110-120 Capillary refill: <2 Seconds Gastrointestinal: Normal bowel sounds, No tenderness Musculoskeletal: No tenderness Integumentary: No rashes Neurological: Normal speech, Normal strength at 5/5 x4 extr, Normal tone, Normal affect Impression: New onset atrial fibrillation with rapid ventricular response and elevated t roponin likely demand ischemia Hypomagnesemia, hypokalemia Hypertension Hypothyroidism Anxiety Hyperlipidemia Elevated liver function likely related to ischemic demand GERD with hiatal hernia Fall at home with bruise to the right foot Chronic back pain with history of anterior cervical fusion of see 5C7, prior laminectomy to L4-L5 Plan: New onset atrial fibrillation with rapid ventricular response and elevated troponin likely demand ischemia: Patient in sinus rhythm at this time. Continue metoprolol SR 50 mg 1 pill twice daily. Spoke with cardiology yesterday. No intervention required at this time. Cardiology recommends no chronic anticoagulation therapy at discharge due to risk of bleeding and fall. Patient may continue with aspirin 81 mg daily. Will have physical therapy assess ambulation. There was some question of UT await physical therapy recommendations. Likely discharge later today. Hypomagnesemia, hypokalemia: Electrolytes improved. Electrolyte protocol in place. We will continue to monitor and adjust. Hypertension: Blood pressure elevated this morning. Medications have been adjusted. Metoprolol SR increased to 50 mg 1 pill twice daily. Norvasc 10 mg restarted. Hydrochlorothiazide discontinued due to electrolyte abnormality. Hypothyroidism: Continue levothyroxine 100 mcg daily Anxiety: Continue with Xanax as needed. Continue with trazodone. Hyperlipidemia: Hold Zetia due to elevated liver function Elevated liver function likely related to ischemic demand: We will check liver ultrasound. May need to hold her cholesterol medication for at least 1 week. This can be followed as an outpatient. GERD with hiatal hernia: Continue with Protonix 40 mg daily Fall at home with bruise to the right foot: Fall precautions in place. Chronic back pain with history of anterior cervical fusion of see 5C7, prior laminectomy to L4-L5: Continue with medication for pain. Fall precautions in place. Physical therapy to assess ambulation. DVT PPX: Full dose Lovenox Code status: Full code Discharge Plan: Home at discharge Time Spent Managing Pts Care (In Minutes): 55
[2021-07-28 06:24] LABS: Bilirubin Total 0.5 mg/dL (0.2-1.0); Magnesium 2.1 mg/dL (1.8-2.4); Potassium 3.6 mmol/L (3.5-5.1); Protein, Total 7.3 g/dL (6.4-8.2)
[2021-07-28] MEDS ORDERED: POTASSIUM CL SA 10 MEQ TAB PO ONE ×2 (07:06→07:17)
[2021-07-28] MEDS ORDERED: METOPROLOL XL 50 MG TAB PO ONE (07:15)
[2021-07-28] MEDS ORDERED: PANTOPRAZOLE 40MG TABLET PO ONE (07:15)
[2021-07-28] MEDS ORDERED: ENOXAPARIN 80 MG/0.8 ML SQ ONE (07:16)
[2021-07-28] MEDS: PANTOPRAZOLE 40MG TABLET PO SCH (07:19)
[2021-07-28] MEDS: ENOXAPARIN 80 MG/0.8 ML SQ SCH (07:19)
[2021-07-28] MEDS: METOPROLOL XL 50 MG TAB PO SCH (07:19)
[2021-07-28] MEDS: LEVOTHYROXINE SOD 0.1 MG TAB PO SCH (07:19)
[2021-07-28] MEDS ORDERED: MORPHINE 2 MG/ML SYR ONE (07:49)
[2021-07-28] MEDS: MORPHINE 2 MG/ML SYR IV PRN (07:53)
[2021-07-28] MEDS ORDERED: AMLODIPINE 10 MG TAB ONE (08:32)
--- NOTE | 2021-07-28 08:41 | P.DS ---
Admission Date: 07/27/21 Discharge Date: 07/28/21 Primary Care Provider: LAURA Gerard Disposition: ROUTINE DISCHARGE Discharge Condition: GOOD Reason for Admission: A. ayla RVR Consultations: Cardiology-Dr. Kelley Procedures: COVID: negative CXR: COMPARISON: None TECHNIQUE: AP portable chest image was obtained 07/27/2021 2:26 am . FINDINGS: Lungs are clear. Heart and vasculature are normal. No measurable pleural effusion and no pneumothorax. No gross bone deformity seen. Rib detail is limited on portable imaging. Concerns for rib fracture can be addressed with dedicated rib series or CT chest imaging. No acute aortic findings suspected. IMPRESSION: No acute cardiopulmonary process. CT Scan: COMPARISON: Head CT report from 12/15/2013, CT chest report from 02/12/[address] abdomen and pelvis report from 02/10/2017. The images were not available for review. FINDINGS: CT HEAD: There is no evidence of mass, acute mass effect or midline shift. There are no acute extra-axial fluid collections. There is no evidence of acute intracranial hemorrhage. There is a probable arachnoid cyst over the left frontal convexity. This was described on the previous brain MRI from 02/26/2015. The cerebral sulci and ventricles are prominent consistent with moderate cerebral volume loss. There are scattered areas of decreased attenuation within the subcortical and periventricular white matter most consistent with chronic moderate microangiopathy. There are mucous retention cysts within the maxillary sinuses. Paranasal sinuses are otherwise grossly clear. The mastoid air cells are clear. The orbital contents are grossly unremarkable. No acute osseous abnormalities are identified. No focal soft tissue abnormalities are identified. CT CERVICAL SPINE: The cervical vertebrae are normal in height. There is normal alignment of the vertebrae. There are remote postsurgical changes of the cervical spine co nsistent with anterior fusion of C5-C7. There is no evidence to suggest hardware failure. There are intervertebral disc spacers at these levels. The disc spaces are otherwise well preserved in height. Bone mineralization is normal. The atlanto-axial articulation is preserved and the odontoid process is intact. There is normal alignment of the facet joints on the parasagittal images. There are mild degenerative changes of the cervical spine. There is no evidence of acute fracture or subluxation. There is no significant canal stenosis. There is mild left C5-C6 and mild bilateral C6-C7 neural foraminal stenosis secondary to uncovertebral joint hypertrophy. The paravertebral and paraspinal soft tissues are unremarkable. The lung apices reveal mild emphysematous changes. CHEST: Lungs: The lungs are well-expanded. There is mild centrilobular emphysema best appreciated in the upper lobes. There is mild subpleural interstitial thickening in the lower lobes which is likely related to fibrosis. No focal airspace consolidation is identified. There are no pleural effusions. There is no pneumothorax. The central airways are patent. Heart: The heart is normal in size. There is no pericardial effusion. There are mild coronary artery calcifications. Mediastinum: The mediastinum is unremarkable. The mediastinal vessels are normal in caliber and contour. There are moderate atherosclerotic calcifications along the thoracic aorta. Bones: No acute osseous abnormalities are identified. The thoracic vertebrae are normal in height and alignment. There is very mild degenerative spurring along the vertebral endplates. The bony thorax is grossly unremarkable. Soft tissues: No focal soft tissue abnormalities are identified. Lymphadenopathy: No pathologic hilar, mediastinal or axillary lymphadenopathy is identified. ABDOMEN/PELVIS: Liver: The liver is normal in size and configuration. No focal hepatic abnormalities are identified. Liver attenuation is within normal limits. Spleen: The spleen is normal is size, configuration and attenuation. Gallbladder and bile duct: The gallbladder is not well visualized and is likely surgically absent. There is no biliary ductal dilatation. Pancreas: The pancreas is grossly normal in size and configuration. Adrenal Glands: The adrenal glands are normal in size and configuration. Kidneys: The kidneys are normal in size and configuration. There is no evidence of hydronephrosis. There are punctate bilateral nonobstructing renal calculi. There are likely small bilateral renal cysts. Stomach: The stomach is grossly normal. There is a small hiatal hernia. Bowel: The bowel gas pattern is non specific and non obstructive. Appendix: There is no CT evidence of acute appendicitis. Free air: There is no evidence of free air. Free fluid: There is no evidence of free fluid. Vasculature: The aorta is normal in caliber and contour. The inferior vena cava is grossly unremarkable. There are moderate atherosclerotic calcifications along the abdominal aorta and major branch vessels. Lymphadenopathy: No pathologic lymphadenopathy is identified. Bladder: The bladder is well distended and smooth in contour. Reproductive: The uterus is surgically absent. Bones: No acute osseous abnormalities are identified. There are postsurgical changes of the lumbar spine at the L4-L5 level with prior laminectomies. There are degenerative changes of the facet joints at these levels. Soft tissues: No focal soft tissue abnormalities are identified. There is a small fat-containing ventral umbilical hernia. IMPRESSION: CT HEAD: 1. There is no evidence of acute intracranial pathology. 2. Moderate cerebral atrophy with findings compatible with chronic microangiopathy. 3. Small bilateral maxillary sinus mucous retention cysts. CT CERVICAL SPINE: 1. No evidence of acute cervical spine injury. 2. Remote anterior cervical fusion of C5-C7 without definite hardware failure. 3. Mild degenerative changes of the cervical spine as described above. CT CHEST: 1. No evidence of acute intrathoracic disease. 2. Mild centrilobular emphysema predominantly involving the upper lobes. 3. Mild parenchymal fibrosis in the dependent portions of the lungs. 4. No definite acute osseous abnormality. No acute thoracic vertebral abnormalities are identified. CT ABDOMEN AND PELVIS: 1. No acute intra-abdominal or intrapelvic pathology. There is no evidence to suggest solid organ injury. 2. Remote cholecystectomy and hysterectomy. 3. Punctate bilateral nonobstructing renal calculi. 4. Small hiatal hernia. 5. Remote postsurgical changes of the lumbar spine consistent with prior laminectomies at L4 and L5. No acute lumbar vertebral abnormalities are identified. 6. Small fat-containing ventral umbilical hernia. 7. Moderate atherosclerotic calcifications. Liver US: COMPARISON: No comparisons FINDINGS: The liver has a normal echotexture. No masses identifiedNo focal liver lesion or intrahepatic biliary dilatation.No evidence of portal vein thrombosis. Cholecystectomy.Common bile duct measures 5 millimeters. IMPRESSION: Unremarkable appearance of the liver. Cholecystectomy. Right knee xray: COMPARISON: <Comparisons> FINDINGS: No acute fracture. No malalignment. No significant focal degenerative changes. Arterial stent at the level of the mid femur. IMPRESSION: No acute osseous abnormality involving the right knee. Right foot xray: COMPARISON: No comparisonsNo comparisons FINDINGS: No acute fracture. No malalignment. Midfoot degenerative changes are noted. Calcaneal spurring. IMPRESSION: No acute osseous abnormality involving the right foot. Medical Problem List: New onset atrial fibrillation with rapid ventricular response and elevated tro ponin likely demand ischemia Hypomagnesemia, hypokalemia Hypertension Hypothyroidism Anxiety Hyperlipidemia Elevated liver function likely related to ischemic demand GERD with hiatal hernia Fall at home with bruise to the right foot Chronic back pain with history of anterior cervical fusion of see 5C7, prior laminectomy to L4-L5 Brief History of Present Illness: 76-year-old female with history of hypertension, hypothyroidism, chronic pain, GERD. Patient presented to the emergency room with increase weakness and multiple falls. She has had 2 falls over the course of 24 hours. Patient had bruising to the right foot. Upon her evaluation patient found to have atrial fibrillation with RVR. Rate around 140. Patient reports history of remote atrial fibrillation that was paroxysmal. Patient was evaluated further. CT scan of the head, neck, chest and pelvis showed no acute findings. Patient with chronic changes to her cervical and lumbar spine. Patient given Lopressor and Cardizem with improvement. Patient admitted for further evaluation and treatment. Hospital Course: Patient presented with fall. Patient with remote history of paroxysmal atrial fibrillation. Patient found to have atrial fibrillation with RVR. Patient was treated in the ER. She was admitted for further evaluation and treatment. Mild elevation in troponin likely ischemic demand noted. Patient was seen and evaluated by cardiology. Her condition improved. Cardiology suspected some orthostatic hypotension with her use of hydrochlorothiazide and Flomax. Both were discontinued and medications were adjusted. Metoprolol was increased to 50 mg 1 pill twice daily. Patient now in normal sinus rhythm. No further intervention needed at this time. White count within normal range. Procalcitonin was elevated but no evidence of infection noted. There was some suspicion of UTI but urine culture was negative. Chest x-ray unremarkable. CT scan of the head, neck, chest, abdomen and pelvis showed no acute findings. At discharge patient will continue with metoprolol SR 50 mg 1 pill twice daily for hypertension and atrial fibrillation. Cardiology recommends no chronic anticoagulation therapy at this time. At discharge she will continue with aspirin 81 mg daily. Recommend follow-up with cardiology in 1 to 2 weeks to follow-up his hospitalization. Further evaluation can be done as an outpatient. Patient is from [facility]. Daughter plans to find a PCP and cardiology in the area to continue patient's care. Patient also presented with fall at home. Patient has bruising to the right foot. Patient with chronic back pain with history of anterior cervical fusion to the C5-C7 region and prior laminectomy to L4-L5 region. X-rays to the right foot and knee unremarkable. Patient will continue with physical therapy recommendations. Fall precautions in place. At discharge patient will continue with Cymbalta 60 mg daily. Patient also takes Flexeril 10 mg daily. This should be used as needed for muscle spasm. Physical therapy worked with the patient and felt patient can be discharged home. No need for skilled placement. Physical therapy recommended pain control. I will arrange for home health and physical therapy at discharge with social media content specialist. This will likely be done tomorrow. Family wants to use [facility]. A limited supply of tramadol 50 mg 1 pill 3 times a day as needed for pain will be provided. Recommend to establish care with pain management in the local area to further address her pain. Patient has history of hypertension. Blood pressures were elevated upon admission. Medications were adjusted during the course of her stay. Cardiology suspected orthostatic hypertension as a cause of her falls. He recommended discontinuing hydrochlorothiazide due to the hypokalemia and discontinuing Flomax. Blood pressure medications were adjusted. Blood pressure improved. At discharge she will continue with metoprolol SR 50 mg 1 pill twice daily and Norvasc 10 mg daily. Recommend to monitor her blood pressure daily. Recommend to maintain blood pressure less than 130/80. If blood pressures remain above 140/90 further adjustment in her medication may be required. Additional medication would be considered. Recommend follow-up with her PCP within 1 week to follow-up his hospitalization. Patient also had some hypomagnesia and hypokalemia. Hydrochlorothiazide has been discontinued due to her hypokalemia. Electrolyte protocol improved her overall status. At discharge recommend to recheck labBMP and magnesium in 1 week to monitor progress. Patient with hypothyroidism. Overall stable. At discharge recommend to continue levothyroxine 100 mcg daily. Patient with anxiety. At discharge patient may continue with her medications including Xanax 0.25 mg 1 pill twice daily as needed for anxiety and trazodone 100 mg at bedtime as needed for insomnia. Patient with hyperlipidemia. Patient takes Zetia 10 mg daily daily. Patient had mild elevation in liver function likely from her ischemic demand. Liver ultrasound obtained. Recommend to hold Zetia for at least 1 week. Recommend to recheck labCMP in 1 week. If improved Zetia can be restarted. If elevated liver function test still noted this will need to be further evaluated by her PCP or GI. Patient with GERD and hiatal hernia. At discharge she will continue with Nexium 40 mg daily. Vital Signs/Physical Exam: Temp Pulse Resp BP Pulse Ox 98.1 F 60 14 170/77 H 95 07/28/21 08:40 07/28/21 08:40 07/28/21 08:40 07/28/21 08:40 07/28/21 08:40 General: Alert, In no apparent distress, Oriented x3, Cooperative HEENT: Atraumatic Neck: Supple Respiratory: Clear to auscultation bilaterally, Normal air movement Cardiovascular: Normal pulses, Regular rate/rhythm Gastrointestinal: Normal bowel sounds, No tenderness, No masses, No rebound, No guarding Musculoskeletal: No erythema, No tenderness, No warmth Integumentary: No tenderness/swelling, No erythema, No warmth, No cyanosis, Other (Some bruising to the right foot due to recent fall) Neurological: Normal speech, Normal strength at 5/5 x4 extr, Normal tone, Normal affect Laboratory Data at Discharge: WBC 5.40 K/uL (4.3-10.9) D 07/28/21 05:33 Hgb 11.3 g/dL (12.0-15.0) L 07/28/21 05:33 Hct 34.4 % (36.0-45.0) L 07/28/21 05:33 Plt Count 257 K/uL (152-406) 07/28/21 05:33 PT 12.2 SECONDS (9.5-12.5) 07/27/21 02:53 INR 1.06 07/27/21 02:53 Sodium 138 mmol/L (136-145) 07/28/21 05:33 Potassium 3.6 mmol/L (3.5-5.1) 07/28/21 05:33 BUN 20 mg/dL (7-18) H 07/28/21 05:33 Creatinine 1.05 mg/dL (0.55-1.3) 07/28/21 05:33 Glucose 95 mg/dL (74-106) 07/28/21 05:33 Magnesium 2.1 mg/dL (1.8-2.4) D 07/28/21 05:33 Total Bilirubin 0.5 mg/dL (0.2-1.0) 07/28/21 05:33 AST 271 U/L (15-37) H D 07/28/21 05:33 ALT 128 U/L (12-78) H D 07/28/21 05:33 Alkaline Phosphatase 170 U/L (45-117) H D 07/28/21 05:33 Troponin I 0.09 ng/mL (0.0-0.045) H 07/27/21 15:00 Home Medications: ALPRAZolam [Xanax*] 0.25 mg BID 07/27/21 Duloxetine HCl [Cymbalta] 60 mg DAILY 07/27/21 Esomeprazole Magnesium 40 mg DAILY 07/27/21 Ezetimibe 10 mg DAILY 07/27/21 Levothyroxine [Synthroid*] 0.1 mg DAILY 07/27/21 Trazodone [Desyrel*] 100 mg DAILY 07/27/21 Amlodipine [Norvasc*] 10 mg PO DAILY #30 tab 07/28/21 Aspirin [Aspirin EC 81 MG] 81 mg PO DAILY #90 tablet. 07/28/21 Metoprolol Succinate [Toprol Xl*] 50 mg PO BID 6AM 6PM #60 tab 07/28/21 New Medications: Aspirin [Aspirin EC 81 MG] 81 mg PO DAILY #90 tablet. Amlodipine [Norvasc*] 10 mg PO DAILY #30 tab Metoprolol Succinate [Toprol Xl*] 50 mg PO BID 6AM 6PM #60 tab Physician Discharge Instructions: Patient presented with fall. Patient with remote history of paroxysmal atrial fibrillation. Patient found to have atrial fibrillation with RVR. Patient was treated in the ER. She was admitted for further evaluation and treatment. Mild elevation in troponin likely ischemic demand noted. Patient was seen and evaluated by cardiology. Her condition improved. Cardiology suspected some orthostatic hypotension with her use of hydrochlorothiazide and Flomax. Both were discontinued and medications were adjusted. Metoprolol was increased to 50 mg 1 pill twice daily. Patient now in normal sinus rhythm. No further intervention needed at this time. White count within normal range. Procalcitonin was elevated but no evidence of infection noted. There was some suspicion of UTI but urine culture was negative. Chest x-ray unremarkable. CT scan of the head, neck, chest, abdomen and pelvis showed no acute findings. At discharge patient will continue with metoprolol SR 50 mg 1 pill twice daily for hypertension and atrial fibrillation. Cardiology recommends no chronic anticoagulation therapy at this time. At discharge she will continue with aspirin 81 mg daily. Recommend follow-up with cardiology in 1 to 2 weeks to follow-up his hospitalization. Further evaluation can be done as an outpatient. Patient is from [facility]. Daughter plans to find a PCP and cardiology in the area to continue patient's care. Patient also presented with fall at home. Patient has bruising to the right foot. Patient with chronic back pain with history of anterior cervical fusion to the C5-C7 region and prior laminectomy to L4-L5 region. X-rays to the right foot and knee unremarkable. Patient will continue with physical therapy recommendations. Fall precautions in place. At discharge patient will continue with Cymbalta 60 mg daily. Patient also takes Flexeril 10 mg daily. This should be used as needed for muscle spasm. Physical therapy worked with the patient and felt patient can be discharged home. No need for skilled placement. Physical therapy recommended pain control. I will arrange for home health and physical therapy at discharge with social media content specialist. This will likely be done tomorrow. Family wants to use [facility]. A limited supply of tramadol 50 mg 1 pill 3 times a day as needed for pain will be provided. Recommend to establish care with pain management in the local area to further address her pain. Patient has history of hypertension. Blood pressures were elevated upon admission. Medications were adjusted during the course of her stay. Cardiology suspected orthostatic hypertension as a cause of her falls. He recommended discontinuing hydrochlorothiazide due to the hypokalemia and discontinuing Flomax. Blood pressure medications were adjusted. Blood pressure improved. At discharge she will continue with metoprolol SR 50 mg 1 pill twice daily and Norvasc 10 mg daily. Recommend to monitor her blood pressure daily. Recommend to maintain blood pressure less than 130/80. If blood pressures remain above 140/90 further adjustment in her medication may be required. Additional m edication would be considered. Recommend follow-up with her PCP within 1 week to follow-up his hospitalization. Patient also had some hypomagnesia and hypokalemia. Hydrochlorothiazide has been discontinued due to her hypokalemia. Electrolyte protocol improved her overall status. At discharge recommend to recheck labBMP and magnesium in 1 week to monitor progress. Patient with hypothyroidism. Overall stable. At discharge recommend to continue levothyroxine 100 mcg daily. Patient with anxiety. At discharge patient may continue with her medications including Xanax 0.25 mg 1 pill twice daily as needed for anxiety and trazodone 100 mg at bedtime as needed for insomnia. Patient with hyperlipidemia. Patient takes Zetia 10 mg daily daily. Patient had mild elevation in liver function likely from her ischemic demand. Liver ultrasound obtained. Recommend to hold Zetia for at least 1 week. Recommend to recheck labCMP in 1 week. If improved Zetia can be restarted. If elevated liver function test still noted this will need to be further evaluated by her PCP or GI. Patient with GERD and hiatal hernia. At discharge she will continue with Nexium 40 mg daily. Diet: AHA Activity: Fall precautions Followup: Jayy Linda MD [ACTIVE - CAN ADMIT] - Scott Kelley MD [ACTIVE - CAN ADMIT] - NONE,NONE [Primary Care Provider] - Time spent managing pt's care (in minutes): 55
[2021-07-28] MEDS ORDERED: EZETIMIBE 10 MG TAB PO SCH (09:00)
[2021-07-28] MEDS ORDERED: HOME MED 1 EA UNK (Esomeprazole Magnesium [Esomeprazole Magnesium] 40 MG Capsule.Dr) PO SCH (09:00)
[2021-07-28] MEDS ORDERED: DULOXETINE 30 MG CAP PO SCH (09:00)
[2021-07-28] MEDS ORDERED: AMLODIPINE 10 MG TAB PO SCH (09:00)
--- NOTE | 2021-07-28 09:34 | RAD REPORT ---
EXAM DESCRIPTION: US - Liver Only - 07/28/2021 8:59 am CLINICAL HISTORY: elevated Liver function COMPARISON: No comparisons FINDINGS: The liver has a normal echotexture. No masses identifiedNo focal liver lesion or intrahepa tic biliary dilatation.No evidence of portal vein thrombosis. Cholecystectomy.Common bile duct measures 5 millimeters. IMPRESSION: Unremarkable appearance of the liver. Cholecystectomy.
--- NOTE | 2021-07-28 10:48 | RAD REPORT ---
EXAM DESCRIPTION: RAD - Knee Right 2 View - 07/28/2021 10:24 am CLINICAL HISTORY: recent fall and bruising COMPARISON: <Comparisons> FINDINGS: No acute fracture. No malalignment. No significant focal degenerative changes. Arterial st ent at the level of the mid femur. IMPRESSION: No acute osseous abnormality involving the right knee.
--- NOTE | 2021-07-28 10:48 | RAD REPORT ---
EXAM DESCRIPTION: RAD - Foot Right 3 View - 07/28/2021 10:24 am CLINICAL HISTORY: recent fall and bruising COMPARISON: No comparisonsNo comparisons FINDINGS: No acute fracture. No malalignment. Midfoot degenerative changes are noted. Calcaneal spur ring. IMPRESSION: No acute osseous abnormality involving the right foot.
[2021-07-28 11:15] VITALS: TEMP 97.8
[2021-07-28] MEDS ORDERED: HYDROCODONE/APAP 7.5/325 MG TAB ONE (12:37)
[2021-07-28] MEDS: HYDROCODONE/APAP 7.5/325 MG TAB PO PRN (12:38)
[2021-07-28] MEDS ORDERED: TRAMADOL HCL 50 MG TAB ONE (14:11)
[2021-07-28] MEDS: TRAMADOL HCL 50 MG TAB PO PRN (14:15)
[2021-07-28 14:28] VITALS: BP 146/79
== END 2021-07-28 15:28 | disposition home or self-care (01) | DRG 309 ==
LOC: ER 01:30 → ERHOLD 05:01
PROVIDERS: ADMIT Family Medicine; ATTEND Family Medicine
DX: I48.91 Unspecified atrial fibrillation (principal); I24.8 Other forms of acute ischemic heart disease; I95.1 Orthostatic hypotension; F17.210 Nicotine dependence, cigarettes, uncomplicated; E83.42 Hypomagnesemia; I10 Essential (primary) hypertension; E03.9 Hypothyroidism, unspecified; F41.9 Anxiety disorder, unspecified; K21.9 Gastro-esophageal reflux disease without esophagitis; K44.9 Diaphragmatic hernia without obstruction or gangrene; M62.838 Other muscle spasm; G89.29 Other chronic pain; M54.9 Dorsalgia, unspecified; E78.5 Hyperlipidemia, unspecified; E87.6 Hypokalemia; S09.93XA Unspecified injury of face, initial encounter; S19.9XXA Unspecified injury of neck, initial encounter; S90.31XA Contusion of right foot, initial encounter; R77.8 Other specified abnormalities of plasma proteins; W18.30XA Fall on same level, unspecified, initial encounter; Z88.5 Allergy status to narcotic agent; Z79.899 Other long term (current) drug therapy; Z79.82 Long term (current) use of aspirin; Z79.890 Hormone replacement therapy; Z90.710 Acquired absence of both cervix and uterus; Z20.822 Contact with and (suspected) exposure to COVID-19
CPT/HCPCS: 36415; 70450; 71045; 71250; 72125; 76705; 80048; 80053; 80061; 80076; 81015; 83735; 83880; 84145; 84439; 84443; 84484; 85025; 85610; 87086; 87088; 93005; 96361; 96365; 96366; 96372; 96375; 99285; J2270; J2405; J3010; J3475; J7040; U0003

== ENCOUNTER 2021-08-24 10:04 | Inpatient (IN) | payer OTHER ==
--- OUTSIDE RECORDS SUMMARY | 2021-08-24 10:07 | XMS REPORT | Continuity of Care Document ---
:1945 Author Organization [facility] t Address [address] [place] [address] [place] [id number] Care Team Providers Name Role Phone KO Attending Clinician Unavailable Payers Payer Name Policy Type Policy Number Effective Date Expiration Date S juan [employer] MED[employer]ARE PPO [id number] 2017 00:00:00 Problems Condition Condition Condition Status [...] Allergy Active Unknown [facility] 03-30 [facility] 00:00: e 00 Social History Social Habit Start Date Stop Date Quantity Comments Source Tobacco use and 2021-06-28 2021-06-28 Smokeless tobacco [facility] exposure 00:00:00 00:00:00 non-user Sex Assigned At [birth year] [place] [facility] 00:00:00 00:00:00 Smoking Status Start Date Stop Date Source Smokes tobacco daily 2021-06-28 00:00:00 [facility] Medications Ordered Filled Start Stop Current Ordering Indication Dosage Frequency Signature Comments Components Source Medication Medication Date Date Medication? Clinician (SIG) Name Name traMADol 2020-09- Yes [id number] 50mg Take 1 U T (Ultram) 50 1-02 11-08 tablet (50 H ealth MG tablet 00:00: 05:59 mg total) 00 :00 by mouth every 8 (eight) hours if needed for severe pain for up to 5 days. traMADol 2020-09- Yes [id number] 50mg Q6H Take 1 U T (Ultram) 50 0-15 10-23 tablet (50 [facility] e[facility] MG tablet 00:00: 04:59 mg total) 00 :00 by mouth every 6 (six) hours if needed for severe pain for up to 7 days. amLODIPine 2020-0 Yes [facility] (Norvasc) 9-19 Health 10 MG 00:00: tablet 00 levothyroxi 2020-0 Yes UT ne 9-19 Health (Synthroid, 00:00: Levoxyl) 00 100 MCG tablet tamsulosin Yes [facility] (Flomax) 9-19 Health 0.4 MG 24 00:00: hr capsule 00 amLODIPine 2020-0 Yes [facility] (Norvasc) 9-19 Health 10 MG 00:00: tablet 00 levothyroxi 2020-0 Yes UT ne 9-19 Health (Synthroid, 00:00: Levoxyl) 00 100 MCG tablet tamsulosin 0 Yes [facility] (Flomax) 9-19 Health 0.4 MG 24 00:00: hr capsule 00 ALPRAZolam 2020-0 Yes UT (Xanax) 9-08 [...] every night. metoprolol 2020-0 Yes UT succinate 8-31 Health XL 00:00: (Toprol-XL) 00 50 MG 24 hr tablet metoprolol 2020-0 Yes [facility] succinate 8-31 Health XL 00:00: (Toprol-XL) 00 50 MG 24 hr tablet ezetimibe 2020-0 Yes UT (Zetia) 10 8-15 Health MG tablet 00:00: 00 ezetimibe 1-0 Yes UT (Zetia) 10 8-15 Health MG tablet 00:00: 00 esomeprazol 2021-0 Yes 40mg Take 40 mg UT e (NexIUM) 8-06 by mouth Healt h [address] 00:00: every capsule 00 night. hydroCHLORO 2021-0 Yes 25mg Take 25 mg UT thiazide 8-06 by mouth 1 Healt h (HYDRODiuri 00:00: (one) time l) 25 MG 00 each day tablet in the morning. esomeprazol 2021-0 Yes 40mg Take 40 mg UT e (NexIUM) 8-06 by mouth Healt h [address] 00:00: every capsule 00 night. hydroCHLORO 2021-0 Yes 25mg Take 25 mg UT thiazide 8-06 by mouth 1 Healt h (HYDRODiuri 00:00: (one) time l) 25 MG 00 each day tablet in the morning. cyclobenzap 1-0 Yes 10mg Take 10 mg UT rine 7-25 by mouth Health (Flexeril) 00:00: every 10 MG 00 night. tablet cyclobenzap 1-0 Yes 10mg Take 10 mg UT rine 7-25 by mouth Health (Flexeril) 00:00: every 10 MG 00 night. tablet Procedures This patient has no known procedures. Encounters Start End Encounter Admission Attending Care Care Encounter Source Date/Time Date/Time Type Type Clinicians Facility Department ID 2021-08-19 Outpatient KO [facility] [id number] [place] 07:57:20 [facility] 2021-08-19 Outpatient [facility] [id number] [place] 07:56:39 [facility] 2021-08-19 Outpatient [facility] [id number] [place] 07:55:37 [facility] 2021-07-23 Outpatient [facility] [id number] [place] 10:43:22 [facility] 2021-07-23 Outpatient [facility] [id number] [place] 10:42:25 [facility] 2021-07-23 Outpatient [facility] [id number] [place] 10:36:58 [facility] 2021-07-16 2021-07-16 Office Ko [facility] [id number] [place] 09:51:23 10:45:55 Visit [facility] 350..13.58 Celestino lang ANGELITAMACIEJ 1 [id number] 2 2021-06-28 2021-06-28 Office ESPERANZA Connell [facility] [id number] [place] 09:49:14 10:45:59 Visit [facility] 350...58 Celestino lang [place] 1 [id number] 2 Results This patient has no known results.
[2021-08-24] MEDS ORDERED: NA CHLORIDE 0.9% 100 ML ONE (10:50)
[2021-08-24] MEDS ORDERED: AZITHROMYCIN 500 MG INJ IVPB ONE (10:50)
[2021-08-24] MEDS ORDERED: IPRATROPIUM BROM 0.5MG/2.5ML ONE ×2 (10:50→11:49)
[2021-08-24] MEDS ORDERED: ALBUTEROL 2.5 MG/3 ML NEB SOL ONE ×2 (10:50→11:49)
[2021-08-24] MEDS ORDERED: FUROSEMIDE 20 MG/ 2ML VIAL ONE (10:51)
[2021-08-24] MEDS ORDERED: METHYLPREDNISOLONE 125 MG INJ ONE (10:51)
[2021-08-24 10:59] LABS: Absolute Lymphocytes (CBC) 0.9 K/uL (0.7-4.9); Basophils % 0.9 % (0-1.3); Hematocrit 34.3 % (36.0-45.0); Lymphocytes % 8.7 % (15.3-44.8); MPV 8.2 fL (7.6-11.3); RBC Red Blood Cell Count 3.98 M/uL (3.86-4.86)
[2021-08-24 11:00] LABS: Protime INR 1.64
[2021-08-24 11:14] LABS: Albumin 3.2 g/dL (3.4-5.0); Bilirubin Direct 0.1 mg/dL (0-0.2); Bilirubin Total 0.4 mg/dL (0.2-1.0); Magnesium 1.7 mg/dL (1.8-2.4); Potassium 3.3 mmol/L (3.5-5.1); Troponin (Emerg Dept Use Only) 0.13 ng/mL (0.0-0.045)
--- NOTE | 2021-08-24 11:43 | RAD REPORT ---
EXAM DESCRIPTION: RAD - Chest Single View - 08/24/2021 10:59 am CLINICAL HISTORY: CONGESTION COMPARISON: Chest Single View dated 07/27/2021 FINDINGS: Lines: None. Lungs: Mild increased prominence of the pulmonary interstitium. Pleural: No significant pleural effusions or pneumothorax. Cardiac: The heart size is within normal limits. Bones: No acute fractures. ACDF in the cervical spine. Other: IMPRESSION: Nonspecific increased prominence of the pulmonary interstitium could reflect mild infect ion or inflammation.
[2021-08-24] MEDS ORDERED: ONDANSETRON 4 MG/2 ML VIAL ONE (11:46)
--- NOTE | 2021-08-24 11:50 | ER ---
Nurse's Notes [facility] Name: Neela Staton Age: 76 yrs Sex: Female : 1945 Arrival Date: 08/24/2021 Time: 10:04 Bed 13 Private MD: James Linda C Diagnosis: COPD/ Chronic obstructive pulmonary disease, unspecified;Acute on chronic systolic (congestive) heart failure Presentation: 08/24 10:15 Chief complaint: Patient states: SOB/difficulty breathing throughout the night; family vg1 member stated earlier this morning pt 'clutched chest'; at this time pt denies chest pain. Pt states had a stent placed in Right leg x1 month ago and 'it collapsed' about two weeks ago. Pt appears to have CHERYL leg swelling and Right foot appears to be purple in color and tender to touch. Pt 90% RA. Coronavirus screen: Vaccine status: Patient reports receiving the 2nd dose of the covid vaccine. Client denies travel out of the [place] in the last 14 days. Ebola Screen: Patient negative for fever greater than or equal to 101.5 degrees Fahrenheit, and additional compatible Ebola Virus Disease symptoms. Initial Sepsis Screen: Does the patient meet any 2 criteria? RR > 20 per min. Does the patient have a suspected source of infection? No. Patient's initial sepsis screen is negative. Risk Assessment: Do you want to hurt yourself or someone else? Patient reports no desire to harm self or others. Onset of symptoms was August 24, 2021. 10:15 Method Of Arrival: Wheelchair vg1 10:15 Acuity: BETHANY 2 vg1 Triage Assessment: 10:18 General: Appears in no apparent distress. uncomfortable, Behavior is cooperative. Pain: vg1 Complains of pain in chest and right leg Pain currently is 9 out of 10 on a pain scale. Respiratory: Reports shortness of breath at rest on exertion labored breathing Onset: The symptoms/episode began/occurred this morning, the patient has moderate shortness of breath. Historical: - Allergies: 10:18 Codeine; vg1 - Home Meds: 10:18 alprazolam 0.25 mg Oral tab 1 tab twice a day [Active]; amlodipine 10 mg tab 1 tab once vg1 daily [Active]; cyclobenzaprine 10 mg Oral tab 1 tab once daily [Active]; Cymbalta 30 mg Oral cpDR 1 cap once daily [Active]; esomeprazole magnesium 40 mg Oral cpDR 1 cap once daily [Active]; ezetimibe 10 mg Oral tab 1 tab once daily [Active]; hydrochlorothiazide 25 mg Oral tab 1 tab once daily [Active]; levothyroxine 100 mcg cap 1 cap once daily [Active]; metoprolol succinate 50 mg Oral CSpX 1 cap once daily [Active]; tamsulosin 0.4 mg Oral cap 1 cap once daily [Active]; trazodone 100 mg Oral tab 1 tab once daily [Active]; - PMHx: 10:18 Hypertensive disorder; Atrial fibrillation; vg1 - Immunization history:: Client reports receiving the 2nd dose of the Covid vaccine. - Social history:: Smoking status: Patient reports the use of cigarette tobacco products, smokes one-half pack cigarettes per day, Patient/guardian denies using alcohol, street drugs, The patient lives. - Family history:: not pertinent. Screenin:25 Abuse screen: Denies threats or abuse. Denies injuries from another. Nutritional jg9 screening: No deficits noted. Tuberculosis screening: No symptoms or risk factors identified. Fall Risk None identified. Assessment: 10:20 General: Appears uncomfortable, Behavior is calm, cooperative, appropriate for age. jg9 Pain: Denies pain. Neuro: No deficits noted. Cardiovascular: No deficits noted. Cardiovascular: 2+ non-pitting edema. Respiratory: Reports shortness of breath acute onset lastnight. Respiratory: Breath sounds are diminished bilaterally. worse on left. GI: No deficits noted. : No deficits noted. EENT: No deficits noted. Derm: No deficits noted. Musculoskeletal: No deficits noted. 10:20 Respiratory: Respiratory effort is unlabored. jg9 10:20 Respiratory: Airway is patent. jg9 10:26 Cardiovascular: Rhythm is sinus rhythm. jg9 11:46 Reassessment: Patient placed on purwick. jg9 14:52 Reassessment: Patient and/or family updated on plan of care and expected duration. Pain jg9 level reassessed. Patient states feeling better. Patient states symptoms have improved. Vital Signs: 10:15 BP 170 / 87; Pulse 80; Resp 28; Temp 97.6(O); Pulse Ox 98% on 3 lpm NC; Weight 77.56 vg1 kg; Height 5 ft. 7 in. (170.18 cm); Pain 9/10; 10:30 BP 149 / 85; Pulse 82; Resp 23; Pulse Ox 100% on 1.5 lpm NC; jg9 11:30 BP 165 / 89; Pulse 85; Resp 24; Pulse Ox 96% on 1.5 lpm NC; jg9 12:30 BP 172 / 88; Pulse 84; Resp 20; Pulse Ox 95% on 1.2 lpm NC; jg9 13:30 BP 145 / 75; Pulse 82; Resp 19 S; Pulse Ox 93% on 1.5 lpm NC; jg9 14:00 BP 151 / 68; Pulse 84; Resp 19 S; Pulse Ox 93% on 1.5 lpm NC; jg9 10:15 Body Mass Index 26.78 (77.56 kg, 170.18 cm) vg1 ED Course: 10:04 Patient arrived in ED. as 10:05 James Linda MD is Private Physician. as 10:08 Kapil Burnett MD is Attending Physician. ma2 10:14 Neo Laguna, RN is Primary Nurse. mr2 10:18 Triage completed. vg1 10:18 Arm band placed on. vg1 10:21 Primary Nurse role handed off by Neo Laguna, SUHAIL jg9 10:21 Lulu Catalan is Primary Nurse. jg9 10:26 Patient has correct armband on for positive identification. Bed in low position. Call jg9 light in reach. 10:42 First set of blood cultures drawn by me. kj1 10:44 First set of blood cultures drawn Second set of blood cultures drawn by me. kv1 10:44 Initial lab(s) drawn, by me, sent to lab. kv1 10:44 Inserted saline lock: 20 gauge in left antecubital area, using aseptic technique. Blood kv1 collected. 10:59 XRAY CXR (1 view) In Process Unspecified. EDMS 11:50 James Linda MD is Hospitalizing Provider. ma2 12:00 BMP Sent. jg9 14:53 No provider procedures requiring assistance completed. jg9 14:53 Patient admitted, IV remains in place. jg9 15:00 urine output 350mL. jg9 Administered Medications: 11:04 Drug: SOLU-Medrol (methylPrednisoLONE) 125 mg Route: IVP; Site: left antecubital; jg9 11:30 Follow up: Response: No adverse reaction jg9 11:05 Drug: Albuterol 2.5 mg Route: Inhalation; jg9 11:30 Follow up: Response: No adverse reaction; Wheezing increased jg9 11:05 Drug: AtroVENT (ipratropium) Aerosol 0.5 mg Route: Inhalation; jg9 11:30 Follow up: Response: No adverse reaction; Wheezing increased jg9 11:08 Drug: Lasix (furosemide) 20 mg Route: IVP; Site: left antecubital; jg9 11:57 Follow up: Response: No adverse reaction; Other jg9 11:12 Drug: AZITHromycin 500 mg Route: IVPB; Infused Over: 1 hrs; Site: left antecubital; jg9 13:00 Follow up: IV Status: Completed infusion; IV Intake: 250ml j9 11:47 Drug: Zofran (Ondansetron) 4 mg Route: IVP; Site: left antecubital; jg9 12:00 Follow up: Response: Nausea is decreased jg9 11:47 Drug: morphine 2 mg Route: IVP; Site: left antecubital; ll1 12:00 Follow up: Response: No change in condition j9 11:56 Drug: Albuterol 2.5 mg Route: Inhalation; jg9 12:46 Follow up: Response: No adverse reaction; Marked relief of symptoms jg9 11:56 CANCELLED (incorrect dosagee): morphine 4 mg IVP once; RASS on ADMIN: Combtv4, Very ll1 Agttd3, Agttd2, Rstlss1, AlertClm0, Drwsy-1, Lt Sdtn-2, Mod Sdtn-3, Dp Sdtn-4, UnArsble-5 11:57 Drug: AtroVENT (ipratropium) Aerosol 0.5 mg Route: Inhalation; jg9 12:46 Follow up: Response: No adverse reaction; Marked relief of symptoms j9 Intake: 13:00 IV: 250ml; Total: 250ml. jg9 Outcome: 11:50 Decision to Hospitalize by Provider. ma2 14:52 Admitted to Tele accompanied by tech, via stretcher, with oxygen, Report called to amanda Chew RN 14:53 Condition: stable jg9 14:53 Patient left the ED. jg9 Signatures: Dispatcher [employer] Nani Ching Mohammad, MD MD ma2 Cinthya Ma kj1 Rajani Wallace RN RN vg1 Owen Millan RN RN ll1 Neo Laguna RN RN mr2 Hossein, Lulu jg9 Ebenezer Lopez kv1 Corrections: (The following items were deleted from the chart) 10:50 10:49 Initial lab(s) drawn, by me, sent to lab. kv1 kv1 10:52 10:49 Inserted saline lock: 20 gauge in left antecubital area, using aseptic technique. kv1 Blood collected. kv1 11:56 11:55 morphine 4 mg IVP in left antecubital jg9 ll1
[2021-08-24] MEDS ORDERED: MORPHINE 2 MG/ML SYR ONE (11:51)
--- NOTE | 2021-08-24 11:51 | EDPHYS ---
Physician Documentation [facility] Name: Neela Staton Age: 76 yrs Sex: Female : 1945 Arrival Date: 08/24/2021 Time: 10:04 Bed 13 Private MD: James Linda C ED Physician Kapil Burnett HPI: 08/24 10:31 This 76 yrs old Female presents to ER via Wheelchair with complaints of Breathing ma2 Difficulty. 10:31 The patient has shortness of breath with light activity. Onset: The symptoms/episode ma2 began/occurred gradually, 2 day(s) ago. Associated signs and symptoms: Pertinent negatives: productive cough, dizziness, hemoptysis, nausea. Severity of symptoms: At their worst the symptoms were moderate in the emergency department the symptoms are unchanged. The patient has not experienced similar symptoms in the past. Historical: - Allergies: 10:18 Codeine; vg1 - Home Meds: 10:18 alprazolam 0.25 mg Oral tab 1 tab twice a day [Active]; amlodipine 10 mg tab 1 tab once vg1 daily [Active]; cyclobenzaprine 10 mg Oral tab 1 tab once daily [Active]; Cymbalta 30 mg Oral cpDR 1 cap once daily [Active]; esomeprazole magnesium 40 mg Oral cpDR 1 cap once daily [Active]; ezetimibe 10 mg Oral tab 1 tab once daily [Active]; hydrochlorothiazide 25 mg Oral tab 1 tab once daily [Active]; levothyroxine 100 mcg cap 1 cap once daily [Active]; metoprolol succinate 50 mg Oral CSpX 1 cap once daily [Active]; tamsulosin 0.4 mg Oral cap 1 cap once daily [Active]; trazodone 100 mg Oral tab 1 tab once daily [Active]; - PMHx: 10:18 Hypertensive disorder; Atrial fibrillation; vg1 - Immunization history:: Client reports receiving the 2nd dose of the Covid vaccine. - Social history:: Smoking status: Patient reports the use of cigarette tobacco products, smokes one-half pack cigarettes per day, Patient/guardian denies using alcohol, street drugs, The patient lives. - Family history:: not pertinent. ROS: 10:31 Constitutional: Negative for fever, chills, and weight loss. ma2 10:31 All other systems are negative. Exam: 10:31 Constitutional: This is a well developed, well nourished patient who is awake, alert, ma2 and in no acute distress. ENT: Nares patent. No nasal discharge, no septal abnormalities noted. Tympanic membranes are normal and external auditory canals are clear. Oropharynx with no redness, swelling, or masses, exudates, or evidence of obstruction, uvula midline. Mucous membranes moist. Neck: Trachea midline, no thyromegaly or masses palpated, and no cervical lymphadenopathy. Supple, full range of motion without nuchal rigidity, or vertebral point tenderness. No Meningismus. Chest/axilla: Normal chest wall appearance and motion. Nontender with no deformity. No lesions are appreciated. Cardiovascular: Regular rate and rhythm with a normal S1 and S2. No gallops, murmurs, or rubs. Normal PMI, no JVD. No pulse deficits. Respiratory: Lungs bilaterally rales and wheezes, , clear to percussion. No rales, rhonchi or wheezes noted. No increased work of breathing, no retractions or nasal flaring. Abdomen/GI: Soft, non-tender, with normal bowel sounds. No distension or tympany. No guarding or rebound. No evidence of tenderness throughout. Skin: Warm, dry with normal turgor. Normal color with no rashes, no lesions, and no evidence of cellulitis. MS/ Extremity: Pulses equal, no cyanosis. Neurovascular intact. Full, normal range of motion. Neuro: Awake and alert, GCS 15, oriented to person, place, time, and situation. Cranial nerves II-XII grossly intact. Motor strength 5/5 in all extremities. Sensory grossly intact. Cerebellar exam normal. Normal gait. Vital Signs: 10:15 BP 170 / 87; Pulse 80; Resp 28; Temp 97.6(O); Pulse Ox 98% on 3 lpm NC; Weight 77.56 vg1 kg; Height 5 ft. 7 in. (170.18 cm); Pain 9/10; 10:30 BP 149 / 85; Pulse 82; Resp 23; Pulse Ox 100% on 1.5 lpm NC; jg9 11:30 BP 165 / 89; Pulse 85; Resp 24; Pulse Ox 96% on 1.5 lpm NC; jg9 12:30 BP 172 / 88; Pulse 84; Resp 20; Pulse Ox 95% on 1.2 lpm NC; jg9 13:30 BP 145 / 75; Pulse 82; Resp 19 S; Pulse Ox 93% on 1.5 lpm NC; jg9 14:00 BP 151 / 68; Pulse 84; Resp 19 S; Pulse Ox 93% on 1.5 lpm NC; jg9 10:15 Body Mass Index 26.78 (77.56 kg, 170.18 cm) vg1 MDM: 10:08 Patient medically screened. ma2 11:49 Differential diagnosis: asthma, Bronchitis Chronic Obstructive Pulmonary Disease ma2 pneumonia, reactive airway disease. Data reviewed: vital signs, nurses notes, EMS record, residential records. Counseling: I had a detailed discussion with the patient and/or guardian regarding: the historical points, exam findings, and any diagnostic results supporting the discharge/admit diagnosis, the presence of at least one elevated blood pressure reading (>120/80) during this emergency department visit, lab results, the need for outpatient follow up. 08/24 10:27 Order name: BMP vt2 08/24 10:27 Order name: Blood Culture Adult (2) [facility] 08/24 10:27 Order name: CBC with Diff; Complete Time: 11:24 ma2 08/24 10:27 Order name: CPK; Complete Time: 11:24 ma2 08/24 10:27 Order name: Ckmb; Complete Time: 11:24 ma2 08/24 10:27 Order name: D-Dimer; Complete Time: 11:24 ma2 08/24 10:27 Order name: Hepatic Function; Complete Time: 11:24 ma2 08/24 10:27 Order name: Lipase; Complete Time: 11:24 ma2 08/24 10:27 Order name: Magnesium; Complete Time: 11:24 ma2 08/24 10:27 Order name: NT PRO-BNP; Complete Time: 11:24 ma2 08/24 10:27 Order name: PT-INR; Complete Time: 11:24 ma2 08/24 10:27 Order name: Ptt, Activated; Complete Time: 11:24 ma2 08/24 10:27 Order name: Troponin (emerg Dept Use Only); Complete Time: 11:24 ma2 08/24 10:28 Order name: Basic Metabolic Panel; Complete Time: 11:24 EDMS 08/24 10:27 Order name: XRAY CXR (1 view) ma2 08/24 11:02 Order name: CT Chest For PE Angio ma2 08/24 11:57 Order name: COVID-19 SARS RT PCR (Document "Date of Onset" if Symptomatic) em1 08/24 12:01 Order name: Basic Metabolic Panel EDMS 08/24 12:01 Order name: Basic Metabolic Panel EDMS 08/24 12:01 Order name: Troponin I EDMS 08/24 12:01 Order name: Troponin I EDMS 08/24 12:01 Order name: Troponin I EDMS 08/24 12:01 Order name: Troponin I EDMS 08/24 12:02 Order name: CBC with Automated Diff EDMS 08/24 12:02 Order name: CBC with Automated Diff EDMS 08/24 12:34 Order name: CT EDMS 08/24 10:27 Order name: EKG; Complete Time: 10:28 vt2 08/24 10:27 Order name: Cardiac monitoring; Complete Time: 10:44 vt2 08/24 10:27 Order name: EKG - Nurse/Tech; Complete Time: 10:48 ma2 08/24 10:27 Order name: IV Saline Lock; Complete Time: 10:48 ma2 08/24 10:27 Order name: Labs collected and sent; Complete Time: 10:48 ma2 08/24 10:27 Order name: O2 Per Protocol; Complete Time: 10:44 ma2 08/24 10:27 Order name: O2 Sat Monitoring; Complete Time: 10:44 ma2 08/24 12:01 Order name: CONS Physician Consult EDRI 08/24 12:01 Order name: 60g Consistent Carbohydrate (ADA 1800/2000) EDMS 08/24 12:01 Order name: EKG Electrocardiogram EDMS 08/24 12:01 Order name: EKG Electrocardiogram EDMS 08/24 12:02 Order name: EKG Electrocardiogram EDMS 08/24 12:02 Order name: EKG Electrocardiogram EDRI Administered Medications: 11:04 Drug: SOLU-Medrol (methylPrednisoLONE) 125 mg Route: IVP; Site: left antecubital; jg9 11:30 Follow up: Response: No adverse reaction j9 11:05 Drug: Albuterol 2.5 mg Route: Inhalation; jg9 11:30 Follow up: Response: No adverse reaction; Wheezing increased jg9 11:05 Drug: AtroVENT (ipratropium) Aerosol 0.5 mg Route: Inhalation; jg9 11:30 Follow up: Response: No adverse reaction; Wheezing increased j9 11:08 Drug: Lasix (furosemide) 20 mg Route: IVP; Site: left antecubital; jg9 11:57 Follow up: Response: No adverse reaction; Other j9 11:12 Drug: AZITHromycin 500 mg Route: IVPB; Infused Over: 1 hrs; Site: left antecubital; jg9 13:00 Follow up: IV Status: Completed infusion; IV Intake: 250ml j9 11:47 Drug: Zofran (Ondansetron) 4 mg Route: IVP; Site: left antecubital; j9 12:00 Follow up: Response: Nausea is decreased j9 11:47 Drug: morphine 2 mg Route: IVP; Site: left antecubital; ll1 12:00 Follow up: Response: No change in condition j9 11:56 Drug: Albuterol 2.5 mg Route: Inhalation; jg9 12:46 Follow up: Response: No adverse reaction; Marked relief of symptoms j9 11:56 CANCELLED (incorrect dosagee): morphine 4 mg IVP once; RASS on ADMIN: Combtv4, Very ll1 Agttd3, Agttd2, Rstlss1, AlertClm0, Drwsy-1, Lt Sdtn-2, Mod Sdtn-3, Dp Sdtn-4, UnArsble-5 11:57 Drug: AtroVENT (ipratropium) Aerosol 0.5 mg Route: Inhalation; j9 12:46 Follow up: Response: No adverse reaction; Marked relief of symptoms jg9 Disposition Summary: 08/24/21 11:50 Hospitalization Ordered Hospitalization Status: Inpatient Admission ma2 Provider: James Linda Location: Telemetry/MedSur (Inpatient) ma2 Condition: Stable ma2 Problem: new ma2 Symptoms: are unchanged ma2 Bed/Room Type: [facility] Room Assignment: 228(08/24/21 14:26) eb Diagnosis - COPD/ Chronic obstructive pulmonary disease, unspecified ma2 - Acute on chronic systolic (congestive) heart failure ma2 Forms: - Medication Reconciliation Form ma2 - SBAR form vt2 Signatures: Dispatcher [employer] EDKapil Black MD MD ma2 Toya Kelley Victoria RN RN imtiaz1 Owen Millan RN RN ll1 Lulu Catalan jg9 Corrections: (The following items were deleted from the chart) 11:51 11:50 Subsequent non-ST elevation (NSTEMI) myocardial infarction vt2 [facility] 11:56 11:55 morphine 4 mg IVP once; RASS on ADMIN: Combtv4, Very Agttd3, Agttd2, Rstlss1, ll1 AlertClm0, Drwsy-1, Lt Sdtn-2, Mod Sdtn-3, Dp Sdtn-4, UnArsble-5 ordered. 9 11:56 11:55 morphine 4 mg IVP once; RASS on ADMIN: Combtv4, Very Agttd3, Agttd2, Rstlss1, ll1 AlertClm0, Drwsy-1, Lt Sdtn-2, Mod Sdtn-3, Dp Sdtn-4, UnArsble-5 given. 9 11:56 11:56 morphine 4 mg IVP once; RASS on ADMIN: Combtv4, Very Agttd3, Agttd2, Rstlss1, ll1 AlertClm0, Drwsy-1, Lt Sdtn-2, Mod Sdtn-3, Dp Sdtn-4, UnArsble-5 ordered. [facility] 14:26 11:50 dionisio londono
[2021-08-24] MEDS ORDERED: HYDROCODONE/APAP 5/325 MG TAB PO PRN (11:57)
--- NOTE | 2021-08-24 12:33 | RAD REPORT ---
EXAM DESCRIPTION: CT - Chest For Pe Angio - 08/24/2021 12:21 pm CLINICAL HISTORY: CONGESTION COMPARISON: Chest Single View dated 08/24/2021 FINDINGS: Chest Wall: No suspicious thyroid nodules or pathologic lymphadenopathy. Lungs: Interlobular septal thickening. Emphysema. Pleura: Small pleural effusions. Mediastinum/jazzy: No pathologic lymphadenopathy. Small hiatal hernia. Pulmonary arteries/Aorta: No filling defect. Multi-vessel coronary artery disease. Cardiomegaly. Upper abdomen: No acute abnormality. Left upper pole renal cyst. Indeterminate 8 mm lesion in the upp er pole left kidney. Bones: No acute abnormality. ACDF in the cervical spine. All CT scans are performed using dose optimization technique as appropriate and may include automated exposure control or mA/KV adjustment according to patient size. IMPRESSION: Negative for pulmonary embolism. Interstitial pulmonary edema with small bilateral pleur al effusions.
[2021-08-24] MEDS ORDERED: POTASSIUM CL SA 10 MEQ TAB PO ONE (14:14)
[2021-08-24] MEDS ORDERED: MAGNESIUM SULFATE 1 gm IVPB 1 GM/100 ML BAG IV ONE (14:52)
[2021-08-24 15:47] VITALS: BMI 26.7
[2021-08-24] MEDS: FUROSEMIDE 20 MG/ 2ML VIAL IV SCH (16:01)
--- NOTE | 2021-08-24 18:23 | CON ---
Date of Consultation: 08/24/2021 Reason For Consultation: Shortness of breath and congestive heart failure. History Of Present Illness: This is a 76-year-old female with a past medical history of hypertension , hypothyroidism, atrial fibrillation, presented with shortness of breath and orthopnea. This starte d at night. She could not lay flat. She became scared, but upon arrival to the emergency room after receiving Lasix, she feels much better. Symptoms had completely resolved. Past Medical History: As outlined above in the HPI. Medications: Refer to reconciliation sheet for detailed list. Allergies: CODEINE. Family History: No premature coronary artery disease or cancer. Social History: Does not smoke or drink. Does not use any drugs. Review of Systems: All systems reviewed and they were negative except as mentioned in HPI. Physical Examination: Vital Signs: Temperature is 97.7, pulse 78, breathing 19, blood pressure is 153/78, saturating 93%. General: Pleasant elderly female, in no apparent distress. Head and Neck: Pupils are equal, reactive to light. Intact eye movements. No JVD. No cervical lym phadenopathy. Neck is supple. Thyroid is not enlarged. Lungs: Clear to auscultation bilaterally. No rhonchi, rales, crackles. No accessory muscle use. Heart: Irregularly irregular. No extra sounds. Abdomen: Soft, nontender. Bowel sounds positive. No organomegaly. No masses or hernia. No rigidi ty or rebound. Extremities: No edema, clubbing, or cyanosis. Intact pulses. Skin: No rash. Neurologic: Alert, awake, oriented x3. No acute focal deficits appreciated. Investigations: Creatinine is 1.0. Troponin 0.16. NT-proBNP 6551. Chest CTA showed a pulmonary ed nathalia. Assessment And Recommendation: 1.Acute congestive heart failure exacerbation. She is known to have normal ejection fraction, likel y diastolic dysfunction, doing much better with Lasix. Continue diuresis. She will benefit probably from increased dose of Lasix to 40 mg q.12 hours and monitor BUN, creatinine, electrolytes carefully . 2.Borderline elevated troponin. We will obtain the records from the office on the last ischemic wor kup that was done on her and further plan will be made accordingly. SR/MODL Voice ID: [id number] Report ID: [id number]
--- NOTE | 2021-08-24 18:35 | HP ---
Date of Admission: 08/24/2021 Chief Complaint: Chest pain and shortness of breath. History Of Present Illness: This is a 76-year-old female patient who started to have shortness of br eath this morning without any activity. She also started to have complaints of chest pain in the mid dle of the chest associated with this shortness of breath. Denies any cough, cold, congestion, fever , chills, nausea, vomiting. Today, she was brought into emergency room, and after she was evaluated, she was admitted to the hospital. I saw her in the emergency room, and when I saw her, her daughter and were present with her at bedside. Allergies: TO CODEINE CAUSING NAUSEA. Medications: Alprazolam 0.25 mg at bedtime, aspirin 81 mg daily, duloxetine 60 mg 2 times a day, eso meprazole 40 mg daily, levothyroxine 100 mcg daily, metoprolol 50 mg 2 times a day, tramadol 50 mg 2 times a day as needed for pain, trazodone 100 mg at bedtime, Eliquis 5 mg 2 times a day. Review of Systems: Respiratory: As mentioned above. Cardiovascular: As mentioned above. All other systems reviewed and negative. Past Medical History: Significant for hypothyroidism, COPD, hypertension, hyperlipidemia, paroxysmal atrial fibrillation, aortic atherosclerosis, peripheral vascular disease, gastroesophageal reflux di sease, kidney stone, osteoarthritis at multiple sites, anemia, anxiety, hypokalemia, hypomagnesemia. Past Surgical History: Stent placement in right leg in May 2021 and stent placement in left le g in 2000, cholecystectomy, hysterectomy, back surgery, cervical spine surgery. Family History: Father had heart disease. Mother had diabetes. Social History: The patient continues to smoke and denies any alcohol use. Immunization History: The patient had her COVID-19 vaccine, first dose on November 15, 2020, second dose on December 18, 2020 and her influenza vaccine was in May 2021. Physical Examination: Vital Signs: Temperature 97.6, pulse 80, respiratory rate 28, blood pressure 170/87, oxygen saturati on 98% on 3 L nasal cannula oxygen. Height 5 feet 7 inches, weight 171 pounds. General: Awake, alert, oriented, not in distress. HEENT: Head atraumatic, normocephalic. Conjunctivae nonerythematous. Sclerae white. Mouth, no thr ush or edema noted. Ears/Nose, no mass, lesion, discharge noted. Neck: Supple. No JVD, lymph nodes, bruit, thyromegaly noted. Lungs: Bilateral good equal air entry. Clear to auscultation. No rhonchi. Presence of rales noted i n bilateral lung bases. The patient not using any accessory muscles of respiration. Heart: Normal heart sounds, no murmur or gallop. Abdomen: Soft, bowel sounds normal. No guarding, rigidity, tenderness, mass, hepatosplenomegaly, dis tention, or bruit noted. Extremities: No leg edema. No calf tenderness. Skin: No rash, ulcer, cellulitis. Lymphatics: No lymph node enlargement in neck, supraclavicular, infraclavicular region. Neuro: No focal neurological deficit. Chest: Unremarkable. External Genitalia: Deferred. Rectal: Deferred. Laboratory Data: Sodium 140, potassium 3.3, chloride 106, bicarb 27, BUN 18, creatinine 1.08, glucos e 129, magnesium 1.7. Liver function tests unremarkable. Troponin 0.13 on the first set, second set 0.16. ProBNP 6551. Lipase 53. White count 10.1, hemoglobin 11, platelets 274. INR 1.64. D-dimer 841. COVID-19 test negative. Chest x-ray, increased prominence of pulmonary interstitial marking. CAT scan of the chest per PE protocol was negative for pulmonary embolism, but presence of interstit ial pulmonary edema with small bilateral pleural effusion. Impression: 1.Pulmonary edema. 2.Hypokalemia. 3.Hypomagnesemia. 4.Anemia, unspecified. 5.Paroxysmal atrial fibrillation. 6.Hypertension. 7.Hyperlipidemia. 8.Peripheral vascular disease. 9.Gastroesophageal reflux disease. 10.Insomnia. 11.Anxiety. 12.Hypothyroidism. 13.Chronic obstructive pulmonary disease. Plan: We will go ahead and admit the patient to hospital for further evaluation and management of th is problem. The patient is appropriate for inpatient and is expected to spend 2 midnights in [facility]. We will continue current medications. Get serial cardiac enzymes. Consult Cardiology. Get echo with Doppler. The patient has significant factors to have underlying coronary artery disease and wi ll follow up with wildlife ecology professor regarding further evaluation and management of this problem. The ivroy ent received 1 dose of Lasix 20 mg IV in the emergency room. We will continue Lasix. Continue Eliqu is. We will replace potassium per order and I will see her tomorrow for followup. Details and plan of treatment discussed with her. We will continue oxygen nebulizer treatment per order, and I will s ee her tomorrow morning for followup. LUIS/STEPHANI Voice ID: [id number]
[2021-08-24] MEDS: APIXABAN 5 MG TABLET PO SCH (20:20)
[2021-08-24] MEDS: METOPROLOL TAR 50 MG TAB PO SCH (20:21)
[2021-08-24] MEDS: DULOXETINE 30 MG CAP PO SCH (20:21)
[2021-08-24] MEDS: ALPRAZOLAM 0.25 MG TABLET PO SCH (20:21)
[2021-08-24] MEDS: POTASSIUM CL SA 10 MEQ TAB PO SCH (20:21)
[2021-08-24] MEDS: TRAZODONE 50 MG TABLET PO SCH (20:21)
[2021-08-25 03:43] LABS: Absolute Lymphocytes (CBC) 0.5 K/uL (0.7-4.9); Basophils % 0.3 % (0-1.3); Hematocrit 28.8 % (36.0-45.0); Lymphocytes % 7.9 % (15.3-44.8); MPV 8.2 fL (7.6-11.3); RBC Red Blood Cell Count 3.37 M/uL (3.86-4.86)
[2021-08-25 04:00] LABS: Magnesium 1.7 mg/dL (1.8-2.4); Potassium 4.4 mmol/L (3.5-5.1)
[2021-08-25] MEDS: PANTOPRAZOLE 40MG TABLET PO SCH (05:33)
[2021-08-25] MEDS: LEVOTHYROXINE SOD 0.1 MG TAB PO SCH (05:33)
[2021-08-25] MEDS ORDERED: MAGNESIUM SULFATE 1 gm IVPB 1 GM/100 ML BAG IV ONE (06:00)
[2021-08-25] MEDS: ALBUTEROL 2.5 MG/3 ML NEB SOL NEB PRN ×3 (06:40→18:11)
[2021-08-25] MEDS: APIXABAN 5 MG TABLET PO SCH ×2 (09:29→20:33)
[2021-08-25] MEDS: METOPROLOL TAR 50 MG TAB PO SCH ×2 (09:30→20:33)
[2021-08-25] MEDS: POTASSIUM CL SA 10 MEQ TAB PO SCH ×2 (09:30→20:32)
[2021-08-25] MEDS: DULOXETINE 30 MG CAP PO SCH ×2 (09:30→20:33)
[2021-08-25] MEDS: ASPIRIN EC 81 MG TAB PO SCH (09:30)
[2021-08-25] MEDS: AMLODIPINE 10 MG TAB PO SCH (09:31)
[2021-08-25] MEDS: FUROSEMIDE 20 MG/ 2ML VIAL IV SCH (09:31)
[2021-08-25] MEDS: DULERA 200/5 (MOMETASONE/FORMOTEROL) INHALER IH SCH ×2 (11:00→20:31)
--- NOTE | 2021-08-25 11:36 | PN ---
Date of Progress Note: 08/25/2021 Subjective: The patient was seen this morning for followup. No new complaints or problems reported by the patient. She still gets short of breath with any activity. For example, even adjusting the covers on her and changing position, she feels like she gets short of breath. Objective: Vital Signs: Reviewed. HEENT: Unremarkable. Lungs: Bilateral good equal air entry with presence of some rales noted in lung bases, unchanged from yesterday. The patient also has some wheezing present with expiration. Heart: Sounds normal. Abdomen: Soft. Bowel sounds normal. No guarding, rigidity, tenderness, or distention. Extremities: No leg edema. Laboratory Data: White count 6.4, hemoglobin 9.3. Sodium 141, potassium 4.4, chloride 106, bicarb 28, BUN 22, creatinine 1.12, glucose 120, magnesium 1.7, triglycerides 84, total cholesterol 141, LDL 85. Impression: 1. Acute exacerbation of chronic obstructive pulmonary disease. 2. Congestive heart failure, chronic, diastolic, with acute exacerbation. 3. Hypomagnesemia. 4. Anemia. 5. Hypertension. 6. Hyperlipidemia. 7. Peripheral vascular disease. Plan: We will go ahead and replace magnesium per protocol, increase dose of Lasix from 20 mg 2 times a day to 40 mg 2 times a day. Continue nebulizer treatment per order. We will add Dulera inhaler 2 puffs 2 times a day and continue to follow with hand cutter. We will repeat blood work tomorrow morning. LUIS/MODL Voice ID: [id number] Report ID: [id number]
[2021-08-25] MEDS ORDERED: FUROSEMIDE 20 MG/ 2ML VIAL IV SCH (17:00)
--- NOTE | 2021-08-25 17:30 | PN ---
Date of Progress Note: 08/25/2021 Subjective: Seen by bedside. She is having some shortness of breath and wheezing. Review of Systems: Mild shortness of breath with wheezing. No cough, nausea, vomiting, diarrhea. No dysuria, polyuria, or urinary urgency. All other systems reviewed and are negative. Physical Examination: Vital Signs: Temperature is 97.6, pulse 78, breathing at 26, blood pressure is 137/74, saturating 94 %. General: Pleasant elderly female, no apparent distress. Head and Neck: Pupils are equal, reactive to light. Intact eye movements. No JVD. No cervical lym phadenopathy. Neck: Supple. Thyroid is not enlarged. Lungs: Wheezing bilaterally. No accessory muscle use or muscle retraction. Heart: Irregularly irregular. No extra sounds. Abdomen: Soft, nontender. Bowel sounds positive. No organomegaly. No masses or hernia. No rigidi ty or rebound. Extremities: No edema, clubbing, or cyanosis. Intact pulses. Skin: No rash. Neuro: Alert, oriented x3. No acute focal deficits appreciated. Instigation: Creatinine is 1.1. Troponin 0.18. Assessment And Recommendations: 1.Acute on chronic diastolic heart failure exacerbation. Responding well to diuretics. Continue cu rrent management and re-evaluate labs in the morning. Might need to start backing off on IV Lasix to p.o. Lasix by tomorrow morning due to slight rise in her BUN. 2.Elevated troponin could be due to demand. We will give further recommendations on this once all records were reviewed on her last stress test. SR/MODL Voice ID: [id number] Report ID: [id number]
[2021-08-25] MEDS: TRAZODONE 50 MG TABLET PO SCH (20:32)
[2021-08-25] MEDS: ALPRAZOLAM 0.25 MG TABLET PO SCH (20:33)
[2021-08-26 04:06] LABS: Absolute Lymphocytes (CBC) 1.6 K/uL (0.7-4.9); Basophils % 0.9 % (0-1.3); Hematocrit 28.7 % (36.0-45.0); Lymphocytes % 18.2 % (15.3-44.8); MPV 8.5 fL (7.6-11.3); RBC Red Blood Cell Count 3.35 M/uL (3.86-4.86)
[2021-08-26 04:26] LABS: Magnesium 1.8 mg/dL (1.8-2.4); Potassium 3.7 mmol/L (3.5-5.1)
[2021-08-26] MEDS ORDERED: POTASSIUM CL SA 10 MEQ TAB PO ONE (04:29)
[2021-08-26] MEDS ORDERED: MAGNESIUM SULFATE 1 gm IVPB 1 GM/100 ML BAG IV ONE (04:29)
[2021-08-26] MEDS: PANTOPRAZOLE 40MG TABLET PO SCH (06:05)
[2021-08-26] MEDS: LEVOTHYROXINE SOD 0.1 MG TAB PO SCH (06:05)
[2021-08-26] MEDS ORDERED: METOPROLOL TARTRATE 5 MG/5 ML INJ IV STA (06:33)
[2021-08-26] MEDS ORDERED: DIGOXIN 0.25 MG/ML AMP IV ONE (07:00)
[2021-08-26] MEDS: ASPIRIN EC 81 MG TAB PO SCH (08:32)
[2021-08-26] MEDS: FUROSEMIDE 40 MG TABLET PO SCH (08:33)
[2021-08-26] MEDS: POTASSIUM CL SA 10 MEQ TAB PO SCH ×2 (08:33→20:57)
[2021-08-26] MEDS: AMLODIPINE 10 MG TAB PO SCH (08:33)
[2021-08-26] MEDS: DULOXETINE 30 MG CAP PO SCH ×2 (08:33→20:57)
[2021-08-26] MEDS: METOPROLOL TAR 50 MG TAB PO SCH ×2 (08:34→20:57)
[2021-08-26] MEDS: APIXABAN 5 MG TABLET PO SCH ×2 (08:34→20:56)
[2021-08-26] MEDS: predniSONE 20 MG TAB PO SCH (08:34)
[2021-08-26] MEDS: DULERA 200/5 (MOMETASONE/FORMOTEROL) INHALER IH SCH ×2 (08:42→21:02)
--- NOTE | 2021-08-26 14:00 | ECHO ---
HEIGHT: 5 ft 7 in WEIGHT: 171 lb 0 oz DATE OF STUDY: 08/26/[address]: Jayy Linda MD 2-DIMENSIONAL: YES M.MODE: YES DOPPLER: YES COLOR FLOW: YES TDS: NO PORTABLE: NO DEFINITY: NO BUBBLE STUDY: NO DIAGNOSIS: DYSPNEA CARDIAC HISTORY: CATHERIZATION: SURGERY: PROSTHETIC VALVE: PACEMAKER: MEASUREMENTS (cm) DIASTOLIC (NORMALS) SYSTOLIC (NORMALS) IVSd 1.1 (0.6-1.2) LA Diam 3.5 (1.9-4.0) LVEF 52% LVIDd 5.1 (3.5-5.7) LVIDs 3.7 (2.0-3.5) %FS 27% LVPWd 1.2 (0.6-1.2) Ao Diam 2.9 (2.0-3.7) 2 DIMENSIONAL ASSESSMENT: RIGHT ATRIUM: NORMAL LEFT ATRIUM: NORMAL RIGHT VENTRICLE: NORMAL LEFT VENTRICLE: NORMAL TRICUSPID VALVE: MODERATE TRICUSPID REGURGITATION MITRAL VALVE: MODERATE MITRAL REGURGITATION PULMONIC VALVE: NORMAL AORTIC VALVE: NORMAL PERICARDIAL EFFUSION: NONE AORTIC ROOT: NORMAL LEFT VENTRICULAR WALL MOTION: NORMAL. DOPPLER/COLOR FLOW: SEE BELOW. COMMENTS: NORMAL LEFT VENTRICULAR EJECTION FRACTION 55-60%. ATRIAL FIBRILLATION. MODERATE TRICUSPID REGURGITATION. MODERATE MTIRAL REGURGITATION. RIGHT VENTRICULAR SYSTOLIC PRESSURE OF 55-60mmHg, RIGHT ATRIAL PRESSURE GREATER THAN 20mmHg. TECHNOLOGIST: JOSELUIS GONSALEZ
--- NOTE | 2021-08-26 20:41 | PN ---
Date of Progress Note: 08/26/2021 Subjective: The patient was seen this morning for followup. She was lying in bed, not in any distre ss. On nasal cannula oxygen. She still gets short of breath with any activity as she reports and do es not feel much better compared to yesterday. Objective: Vital Signs: Reviewed. HEENT: Examination unremarkable. Lungs: Clear to auscultation. No rales. No wheezing. Heart: Sounds normal. Abdomen: Soft. Bowel sounds normal. No guarding, rigidity, tenderness, or distention. Extremities: No leg edema. Laboratory Data: White count 8.6, hemoglobin 9.3, platelets . Sodium 141, potassium 3.7, chloride 101, bicarb 32, BUN 23, creatinine 1.03, glucose 93, magnesium . Impression: 1.Acute exacerbation of chronic obstructive pulmonary disease. 2.Congestive heart failure, chronic, diastolic, with acute exacerbation. 3.Hypertension. 4.Type 2 diabetes mellitus. Plan: We will go ahead and consult Physical Therapy to help ambulate the patient. We will discontin ue IV Lasix and start her on Lasix 40 mg p.o. daily. Continue current inhaler Dulera 2 puffs 2 times a day as prescribed yesterday and we will start her on prednisone 20 mg daily. I have talked to res piratory therapist to try to wean off oxygen as long as oxygen saturation remains more than 90%. I w ill see her tomorrow for followup. This morning, she had rapid ventricular rate with atrial fibrilla tion. Heart rate was anywhere between 130 to 150 range and IV Lopressor x1 dose and IV digoxin was o rdered for her for rate control. The patient remains on Eliquis as anticoagulation therapy. LUIS/MODL Voice ID: [id number] Report ID: [id number]
[2021-08-26] MEDS: TRAZODONE 50 MG TABLET PO SCH (20:57)
[2021-08-26] MEDS: ALPRAZOLAM 0.25 MG TABLET PO SCH (20:57)
[2021-08-27] MEDS: PANTOPRAZOLE 40MG TABLET PO SCH (05:29)
[2021-08-27] MEDS: LEVOTHYROXINE SOD 0.1 MG TAB PO SCH (05:29)
[2021-08-27 05:53] LABS: Magnesium 2.1 mg/dL (1.8-2.4); Potassium 3.7 mmol/L (3.5-5.1)
[2021-08-27] MEDS: DULERA 200/5 (MOMETASONE/FORMOTEROL) INHALER IH SCH (08:02)
[2021-08-27] MEDS: ASPIRIN EC 81 MG TAB PO SCH (08:04)
[2021-08-27] MEDS: APIXABAN 5 MG TABLET PO SCH (08:05)
[2021-08-27] MEDS: predniSONE 20 MG TAB PO SCH (08:05)
[2021-08-27] MEDS: AMLODIPINE 10 MG TAB PO SCH (08:05)
[2021-08-27] MEDS: FUROSEMIDE 40 MG TABLET PO SCH (08:05)
[2021-08-27] MEDS: DULOXETINE 30 MG CAP PO SCH (08:05)
[2021-08-27] MEDS: POTASSIUM CL SA 10 MEQ TAB PO SCH (08:05)
[2021-08-27] MEDS ORDERED: METOPROLOL TAR 50 MG TAB PO SCH (09:00)
[2021-08-27 09:57] VITALS: O2SAT 93
[2021-08-27 10:33] VITALS: BP 129/61; TEMP 98.1
--- NOTE | 2021-08-28 06:39 | DS ---
Date of Discharge: 08/27/2021 Disposition: Discharged to go home. Physical Examination: HEENT: Unremarkable. Lungs: Clear to auscultation. No wheezing. No rales. Heart: Heart sounds normal. Abdomen: Soft, bowel sounds normal. No guarding, rigidity, tenderness, or distention. Extremities: No leg edema. Laboratory Data: Last chemistry done today; sodium 141, potassium 3.7, chloride 103, bicarb 33, BUN 20, creatinine 0.93, glucose 87, magnesium 2.1. Her hemoglobin A1c done on 08/25/2021 was 6.1. Her triglyceride 84, total cholesterol 141, HDL 39, and LDL 85. Echocardiogram done during this hospital ization shows ejection fraction 52%, moderate tricuspid regurgitation, moderate mitral regurgitation, and atrial fibrillation. Discharge Medications And Instructions: Medications except following changes include, 1.Metoprolol dose 250 mg and the patient to take 1-1/2 tablet by mouth 2 times a day. 2.Furosemide 40 mg daily. 3.Dulera inhaler 200 mcg, takes 2 puffs by mouth 2 times a day. 4.Add prednisone 10 mg tablets, patient to take 2 tablets daily for 4 days, then 1 tablet daily for 4 days, then half a tablet daily for 4 days, then stop. 5.Follow up at my office in 2 weeks. Hospital Course: This is a 76-year-old pleasant female patient, admitted to the hospital with shortn ess of breath problem. Please see dictated H and P for more information. After the patient came int o the emergency room, she was evaluated and admitted to the hospital with congestive heart failure an d chronic obstructive pulmonary disease exacerbation. The patient was started on IV Lasix. Cardiolo gy consultation was requested. Home medications were continued including her Eliquis. We did go up on the dose of metoprolol because of her atrial fibrillation with rapid ventricular rate. She remain ed in atrial fibrillation throughout this hospitalization and heart rate was faster, more than [address] of the time. We had to go up on the dose of Lasix and she responded well to a combination of diur etic therapy as well as oxygen nebulizer treatment and subsequently we had to add Dulera inhaler and oral prednisone. Overall with combination of all those her symptoms have improved. We were able to wean off oxygen and her room air oxygen saturation is normal. The patient was discharged to go home in stable and improved condition today with above-mentioned medications and instructions. The bunny t will follow up at my office in 2 weeks. Final Diagnoses: 1.Congestive heart failure, chronic, diastolic, with acute exacerbation. 2.Acute exacerbation of chronic obstructive pulmonary disease. 3.Peripheral vascular disease. 4.Hypertension. 5.Atrial fibrillation, chronic. 6.Chronic anticoagulation therapy. 7.Hyperlipidemia. LUIS/MODL Voice ID: [id number] Report ID: [id number]
== END 2021-08-27 09:30 | disposition home or self-care (01) | DRG 291 ==
LOC: ER 10:04 → ERHOLD 11:59 → 2ND 14:44
PROVIDERS: ADMIT Internal Medicine; ATTEND Internal Medicine
DX: I11.0 Hypertensive heart disease with heart failure (principal); I50.33 Acute on chronic diastolic (congestive) heart failure; J44.1 Chronic obstructive pulmonary disease with (acute) exacerbation; E78.5 Hyperlipidemia, unspecified; K21.9 Gastro-esophageal reflux disease without esophagitis; F41.9 Anxiety disorder, unspecified; E03.9 Hypothyroidism, unspecified; E11.9 Type 2 diabetes mellitus without complications; M19.90 Unspecified osteoarthritis, unspecified site; I73.9 Peripheral vascular disease, unspecified; G47.00 Insomnia, unspecified; D64.9 Anemia, unspecified; I48.0 Paroxysmal atrial fibrillation; E83.42 Hypomagnesemia; F17.210 Nicotine dependence, cigarettes, uncomplicated; E87.6 Hypokalemia; Z88.5 Allergy status to narcotic agent; Z79.890 Hormone replacement therapy; Z79.899 Other long term (current) drug therapy; Z79.82 Long term (current) use of aspirin; Z79.01 Long term (current) use of anticoagulants; Z90.49 Acquired absence of other specified parts of digestive tract; Z90.710 Acquired absence of both cervix and uterus; Z20.822 Contact with and (suspected) exposure to COVID-19
CPT/HCPCS: 36415; 71045; 71275; 80048; 80061; 80076; 82550; 82553; 83036; 83690; 83735; 83880; 84132; 84484; 85025; 85379; 85610; 85730; 87040; 93005; 93306; 94640; 96365; 96366; 96375; 97116; 97161; 97530; 99285; J0456; J1160; J1940; J2270; J2405; J2930; J3475; J7512; J7606; Q9967; U0003

== ENCOUNTER 2021-09-12 12:03 | Day surgery (SDC) | payer OTHER ==
[2021-09-10 15:16] LABS: Absolute Lymphocytes (CBC) 1.2 K/uL (0.7-4.9); Hematocrit 38.5 % (36.0-45.0); Lymphocytes % 15.6 % (15.3-44.8); MPV 8.1 fL (7.6-11.3); RBC Red Blood Cell Count 4.59 M/uL (3.86-4.86)
[2021-09-10 15:19] LABS: Protime INR 1.7
[~2021-09-12 12:03] MED LIST: HEPA 1000U/500MLS 2,000 UNIT/1,000 ML BAG IV ONE
[2021-09-12] MEDS ORDERED: NA CHLORIDE 0.9% 500 ML ONE (12:30)
[2021-09-12] MEDS ORDERED: MIDAZOLAM HCL 2 MG/2 ML INJ ONE (13:08)
[2021-09-12] MEDS ORDERED: VERAPAMIL HCL 10 MG/4 ML VIAL IV ONE (13:09)
[2021-09-12] MEDS ORDERED: FENTANYL CITR 100 MCG/2 ML ONE (13:09)
[2021-09-12] MEDS ORDERED: NITROGLYCERIN 100 MCG/ML SYR (for cath lab use only) IV ONE (13:09)
[2021-09-12] MEDS ORDERED: HEPARIN 5000 UNIT/ML 1 ML VIAL ONE (13:09)
[2021-09-12] MEDS ORDERED: ATROPINE SULF 1 MG/10 ML SYR IV ONE (13:09)
[2021-09-12] MEDS ORDERED: NITROGLYCERIN/D5W 25 MG/250 ML BTL IV ONE (13:10)
[2021-09-12] MEDS ORDERED: LIDOCAINE 1% 20 ML MDV ONE (13:49)
[2021-09-12] MEDS ORDERED: REGADENOSON 0.4 MG/5 ML SYR IV ONE (14:10)
[2021-09-12 15:28] VITALS: TEMP 97
[2021-09-12 17:25] VITALS: O2SAT 98
[2021-09-12 19:22] VITALS: BP 144/88
--- NOTE | 2021-09-16 19:54 | OP ---
Date of Procedure: 09/12/2021 Surgeon: STEPHANIE WATERS Procedures Performed: 1.Selective coronary angiogram. 2.FFR of OM1 branch, which was not significant of 0.87. 3.Right heart catheterization. Indication: Shortness of breath. Persistent shortness of breath. The access right radial artery 6- Mexican closed with TR band complications and right IJ 7-Mexican closed with manual pressure. Complications: None. Bleeding: Less than 20 mL. Description Of Procedure: After risks, benefits, and alternatives were explained, patient agreed to proceed. Also informed consent, the patient was brought into the cardiac catheterization laboratory, prepped and draped in usual sterile fashion. We access right radial artery using pediatric micropun cture kit, placed a 6-Mexican slender sheath and took a 5-Mexican tiger 4.0 catheter in the aortic root , engaged left main and the right coronary artery, took standard views and we gave systemic heparin a nd took a pressure wire into the aortic root, Equalized pressures and then after therapeutic ACT, we passed the pressure wire into the OM1 branch and we gave Lexiscan and FFR was recorded at 0.87. The wire was removed and pullback there was no drift. We then removed the catheter and sheath, placed TR band for hemostasis. The right IJ was accessed under ultrasound guidance and using micropuncture ki t and placed a 7-Mexican pinnacle catheter and then took a 7-Mexican balloon tipped [place] catheter into the RA, RV, PA, and took waveform and pressure and then obtained cardiac output and then removed the [place] catheter. Sheath was removed and placed a pressure with good hemostasis. Findings: 1.Left main is large and normal. 2.LAD has a diffuse mid 40% to 50% stenosis and rest of the arteries with luminal irregularities. 3.Left circumflex OM1 large vessel with diffuse 60% stenosis. FFR was -0.87 and distal left circumf jodie was a large vessel with 80% to 90% stenosis and it is large and dominant number of 4 RCA small no ndominant with diffuse 70% proximal stenosis. 4.Right heart catheterization numbers; RA pressure was 5, RV pressure was 22/2 with mean of 6. PA p ressure was 20/8, mean of 16. Pulmonary wedge pressure was 9 mmHg. 5.Severe left circumflex disease distally. No plan for staged PCI and at the same time, we will do the FFR of the LAD. 6.Moderate LAD disease and moderate OM1 disease and the OM1 FFR was -0.87. We will plan on doing FF R of the LAD once we fix the distal circ. 7.The severe proximal RCA stenosis, but it is a small non dominant. 8.Normal filling pressures. Impression: 1.Severe left circumflex distal stenosis, otherwise more coronary artery disease. 2.Normal filling pressures. Plan: PCI of the distal left circumflex in [place] or [place] complex intervention, which we will plan on doing stent. Also, we will plan on doing in the near future. The patient has severe periph eral vascular disease and she is getting a bypass surgery. We will wait on doing the left distal cir c until she gets the bypass surgery done as she is going to be placed on anti-platelet. Procedure #2: Peripheral angiogram was done also distal aorta aortogram with runoff. We took the pi gtail catheter into the distal aorta and evaluated distal aorta and runoff and then removed the brandy ter. Findings: Apparently on the findings on the peripheral angiogram; distal aorta is patent in bilatera l femoral arteries showing bilateral common iliac arteries are patent. Then, bilateral femoral arter ies are patent. There is a CTA of the right SFA and CTA of the left SFA profunda bilaterally patent and she has stents in both of the face are both occluded. Conclusion: 1.Moderate coronary artery disease with the exception of distal left circumflex. 2.Severe peripheral vascular disease. Plan: We will await on the Vascular Surgery to do an aortofemoral bypass bilaterally, and then we wi ll bring the patient back for a PCI of the left circumflex and FFR of LAD. SR/MODL Voice ID: [id number] Report ID: [id number]
== END 2021-09-12 19:56 | disposition home or self-care (01) ==
LOC: CCL 12:03
PROVIDERS: ATTEND Internal Medicine
DX: I25.10 Atherosclerotic heart disease of native coronary artery without angina pectoris (principal); I70.213 Atherosclerosis of native arteries of extremities with intermittent claudication, bilateral legs; I70.92 Chronic total occlusion of artery of the extremities; I48.91 Unspecified atrial fibrillation; I10 Essential (primary) hypertension; Z01.810 Encounter for preprocedural cardiovascular examination; Z87.891 Personal history of nicotine dependence; Z20.822 Contact with and (suspected) exposure to COVID-19; Z88.3 Allergy status to other anti-infective agents; Z88.6 Allergy status to analgesic agent; Z82.49 Family history of ischemic heart disease and other diseases of the circulatory system
CPT/HCPCS: 93005 ×2; 85025; 80048; 36415; 85610; 85730; 93456; 75630; 93571; U0003; C1893; J1644 ×2; J3010; J2785; J7040; J2250

== ENCOUNTER 2021-11-07 15:35 | Emergency (ER) | payer OTHER ==
--- OUTSIDE RECORDS SUMMARY | 2021-11-07 15:37 | XMS REPORT | Continuity of Care Document ---
:1945 Author Organization [facility] t Address [address] [place] [address] Care Team Providers Name Role Phone Unknown Primary Care Physician Unavailable KO Attending Clinician Unavailable [id number] Attending Clinician Unavailable LUBA GRIFFITH Attending Clinician Unavailable NOHEMI VELEZ Attending Clinician Unavailable [id number] Admitting Clinician Unavailable LUBA GRIFFITH Admitting Clinician Unavailable Payers Payer Name Policy Type Policy Number Effective Date Expiration Date S ourzeynep [employer] MEDICARE [id number] 2020 2024 PPO 00:00:00 00:00:00 Problems Condition Condition Condition Status Onset Resolution Last Treating Co mments Source Name Details Category Date Date Treatment Clinician Date Post-opera Post-opera Disease Active U T tive state tive state 10-15 He alth 00:00: 00 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 -06 [facility] foot, foot, 00:00: limited to limited to 00 breakdown breakdown of skin of skin PAOD PAOD Disease Active 2020-09 UT (periphera [...] ents Source Name Type Date Date Clinician Rober Allergy Active Unknown [facility] to 03-30 [facility] 00:00: e 00 Social History Social Habit Start Date Stop Date Quantity Comments Source Tobacco use and 2021-06-28 2021-06-28 Smokeless tobacco [facility] exposure 00:00:00 00:00:00 non-user Sex Assigned At [birth year] [facility] 00:00:00 00:00:00 Smoking Status Start Date Stop Date Source Smokes tobacco daily 2021-06-28 00:00:00 [facility] Medications Ordered Filled Start Stop Current Ordering Indication Dosage Frequency Signature Comments Components Source Medication Medication Date Date Medication? Clinician (SIG) Name Name Apixaban 2020-09 Yes Take by [facility] (ELIQUIS 2-06 mouth. Health PO) 12:07: 12 ASPIRIN 2020-09 Yes Take by [facility] ADULT PO 2-06 mouth. Health 12:07: 12 traMADol 2020-09- No [id number] 50mg Take 1 U T (Ultram) 50 - 11-08 tablet (50 H ealth MG tablet 00:00: 05:59 mg total) 00 :00 by mouth every 8 (eight) hours if needed for severe pain for up to 5 days. traMADol 2020-09- No [id number] 50mg Q6H Take 1 U T (Ultram) 50 0-15 10-23 tablet (50 H ealth MG tablet 00:00: 04:59 mg total) 00 :00 by mouth every 6 (six) hours if needed for severe pain for up to 7 days. amLODIPine Yes [facility] (Norvasc) 06-02 Health 10 MG 00:00: tablet 00 levothyroxi Yes UT ne 06-02 Health (Synthroid, 00:00: Levoxyl) 00 100 MCG tablet tamsulosin Yes [facility] (Flomax) 06-02 Health 0.4 MG 24 00:00: hr capsule 00 amLODIPine Yes [facility] (Norvasc) 06-02 Health 10 MG 00:00: tablet 00 levothyroxi Yes UT ne - Health (Synthroid, 00:00: Levoxyl) 00 100 MCG tablet tamsulosin 2021-0 Yes [facility] (Flomax) 9-19 Health 0.4 MG [...] Health 0.25 MG 00:00: tablet 00 ALPRAZolam 0 Yes UT (Xanax) 9-08 Health 0.25 MG 00:00: tablet 00 traZODone 2020-0 Yes 100mg Take 100 [facility] (Desyrel) 9-02 mg by Health 100 MG 00:00: mouth tablet 00 every night. traZODone 0 Yes 100mg Take 100 [facility] (Desyrel) 9-02 mg by Health 100 MG 00:00: mouth tablet 00 every night. traZODone 2020-0 Yes 100mg Take 100 UT (Desyrel) 9-02 mg by Health 100 MG 00:00: mouth tablet 00 every night. metoprolol 0 Yes UT succinate 8- Health XL 00:00: (Toprol-XL) 00 50 MG 24 hr tablet metoprolol 2020-0 Yes UT succinate 05-14 Health XL 00:00: (Toprol-XL) 00 50 MG 24 hr tablet metoprolol 2020-0 Yes UT succinate 8-31 Health XL 00:00: (Toprol-XL) 00 50 MG 24 hr tablet ezetimibe 2020-0 Yes UT (Zetia) 10 8-15 Health MG tablet 00:00: 00 ezetimibe 2020-0 Yes UT (Zetia) 10 8-15 Health MG tablet 00:00: 00 ezetimibe 2020-0 Yes UT (Zetia) 10 8-15 [...] each day tablet in the morning. cyclobenzap 2021-0 Yes 10mg Take 10 mg UT rine 7-25 by mouth Health (Flexeril) 00:00: every 10 MG 00 night. tablet cyclobenzap 2021-0 Yes 10mg Take 10 mg UT rine 7-25 by mouth Health (Flexeril) 00:00: every 10 MG 00 night. tablet cyclobenzap 2021-0 Yes 10mg Take 10 mg UT rine 7-25 by mouth Health (Flexeril) 00:00: every 10 MG 00 night. tablet Procedures This patient has no known procedures. Encounters Start End Encounter Admission Attending Care Care Encounter Source Date/Time Date/Time Type Type Clinicians Facility Department ID 2021-11-06 Outpatient [facility] [id number] [place] 11:27:26 [facility] 2021-10-22 Outpatient 3 [id number] E[facility] CRD [id number] [facility] 10:32:05 2072021-10-16 Outpatient 3 [id number] [facility] REF [id number] [facility] 10:31:34 2012021-10-01 Outpatient [facility] [id number] [place] 01:05:41 [facility] 2021-09-27 Inpatient KO, [facility] [id number] 14:57:03 [facility] [id number] [place] 14:24:58 [facility] 2021-09-16 Outpatient [facility] [id number] [place] 08:56:13 [facility] 2021-09-16 Outpatient [facility] [id number] [place] 08:54:24 [facility] 2021-08-19 Outpatient KO, [facility] [id number] [place] 07:57:20 [facility] 2021-08-19 Outpatient [facility] [id number] [place] 07:56:39 Health 2021-08-19 Outpatient [facility] [id number] [place] 07:55:37 [facility] 2021-07-23 Outpatient [facility] [id number] [place] 10:43:22 [facility] 2021-07-23 Outpatient KO, [facility] [id number] [place] 10:42:25 [facility] 2021-07-23 Outpatient [facility] [id number] [place] 10:36:58 [facility] 2021-11-06 2021-11-06 Office Ko [facility] [id number] [place] 10:45:00 11:24:42 Visit Arash [facility] [id number] [facility] [id number] 2021-09-27 2021-09-27 Emergency E ROSIE, [facility]SE [facility]SE [id number] 16:11:00 16:11:00 LAKSHMI ayoub [facility] 2021-07-16 2021-07-16 Office Ko [facility] [id number] [place] 09:51:23 10:45:[address] [facility] [id number] [facility] [place] 1 [id number] 2021-06-28 2021-06-28 Office Ko [facility] [id number] [place] 09:49:14 10:45:59 Visit [facility] [id number] [facility] [place] 1 [id number] Results This patient has no known results.
[2021-11-07 16:09] LABS: Absolute Lymphocytes (CBC) 1.1 K/uL (0.7-4.9); Lymphocytes % 17.4 % (15.3-44.8); MPV 7.4 fL (7.6-11.3)
[2021-11-07 16:22] LABS: Protime INR 1.73
[2021-11-07 16:40] LABS: Albumin 2.9 g/dL (3.4-5.0); Bilirubin Direct 0.1 mg/dL (0-0.2); Bilirubin Total 0.4 mg/dL (0.2-1.0); Magnesium 1.5 mg/dL (1.8-2.4); Protein, Total 7.3 g/dL (6.4-8.2); Troponin High Sensitivity 692.1 pg/mL (<58.9)
[2021-11-07 16:44] LABS: Potassium 2.9 mmol/L (3.5-5.1)
[2021-11-07 17:03] LABS: Urine Blood Negative (Negative); Urine Glucose Negative (Negative); Urine Protein Negative (Negative); Urine Specific Gravity 1.015 (1.005-1.030)
--- NOTE | 2021-11-07 17:03 | RAD REPORT ---
EXAM DESCRIPTION: US - Extremity Venous Uni Ltd - 11/07/2021 4:46 pm CLINICAL HISTORY: Pain;Swelling COMPARISON: Lower Extremity Artery Uni Ltd dated 11/07/2021 TECHNIQUE: Real-time sonographic evaluation of the lower extremity deep venous systems was performed using color Doppler, grayscale, and compression. FINDINGS: Normal compressibility, flow augmentation, phasic flow and spontaneous flow is identified in the right lower extremity deep venous systems. No intraluminal filling defects seen. 2.5 cm x 2.6 cm cystic mass in the medial aspect of the right thigh. IMPRESSION: No DVT in the right lower extremity. Cystic mass in the right thigh. This could be relat ed to trauma. Other etiologies not excluded. Recommend clinical correlation.
--- NOTE | 2021-11-07 17:05 | RAD REPORT ---
EXAM DESCRIPTION: US - Lower Extremity Artery Uni Ltd - 11/07/2021 4:53 pm CLINICAL HISTORY: Leg pain COMPARISON: None FINDINGS: Color Doppler, grayscale, and spectral analysis was performed. The right common femoral artery and superficial femoral artery to the midportion or occluded. Unable to assess the additional lower extremity vessels due to patient intolerant of pain. 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 Unable to evaluate the more distal lower extremity arteries due to patient's pain.
--- NOTE | 2021-11-07 17:09 | RAD REPORT ---
EXAM DESCRIPTION: RAD - Chest Single View - 11/07/2021 5:04 pm CLINICAL HISTORY: general weakness COMPARISON: Chest Single View dated 08/24/2021; Chest Single View dated 07/27/2021 FINDINGS: Lines: None. Lungs: No evidence of edema or pneumonia. Pleural: No significant pleural effusions or pneumothorax. Cardiac: Mild cardiomegaly. Bones: No acute fractures. ACDF in the cervical spine. Other: IMPRESSION: No acute cardiopulmonary disease.
[2021-11-07] MEDS ORDERED: ONDANSETRON 4 MG/2 ML VIAL ONE ×2 (17:10→18:31)
[2021-11-07] MEDS ORDERED: MORPHINE 4 MG/ML SYR ONE ×2 (17:12→18:27)
[2021-11-07 17:15] LABS: Urine Bacteria <20 /HPF (<20); Urine RBC <5 /HPF (NONE SEEN)
[2021-11-07] MEDS ORDERED: Magnesium Sulfate 2gm IVPB 2 G/50 ML BAG IV ONE (17:37)
[2021-11-07] MEDS ORDERED: KCL 20 MEQ/100 mL IVPB 100 ML IV ONE (17:37)
--- NOTE | 2021-11-07 17:51 | RAD REPORT ---
EXAM DESCRIPTION: CT - Head Brain Wo Cont - 11/07/2021 5:28 pm CLINICAL HISTORY: WEAKNESS COMPARISON: No comparisons TECHNIQUE: All CT scans are performed using dose optimization technique as appropriate and may inclu de automated exposure control or mA/KV adjustment according to patient size. FINDINGS: No intracranial hemorrhage, hydrocephalus or extra-axial fluid collection.No areas of brai n edema or evidence of midline shift. Chronic small vessel ischemic changes which are moderate. Cereb ral atrophy. Mucous retention cysts in the maxillary sinuses The calvarium is intact. IMPRESSION: No acute intracranial abnormality.
[2021-11-07] MEDS ORDERED: HYDRALAZINE HCL 20 MG/ML VIAL ONE (17:52)
[2021-11-07] MEDS ORDERED: NA CHLORIDE 0.9% 250 ML ONE (18:07)
--- NOTE | 2021-11-07 18:23 | ER ---
Nurse's Notes [facility] Name: Neela Staton Age: 76 yrs Sex: Female : 1945 Arrival Date: 11/07/2021 Time: 15:36 Bed 25 Private MD: Diagnosis: Non ST elevation [place];Right Femerol Artery Occlusion;Chronic atrial fibrillation Presentation: 11/07 15:47 Chief complaint: Patient states: generalized weakness, loss of appetite "for a while" eo2 EMS states: low BP reported by home health nurse, generalized weakess. Coronavirus screen: Vaccine status: Patient reports receiving the 2nd dose of the covid vaccine. with booster Client denies travel out of the [place] in the last 14 days. Ebola Screen: Patient negative for fever greater than or equal to 101.5 degrees Fahrenheit, and additional compatible Ebola Virus Disease symptoms Patient denies exposure to infectious person. Patient denies travel to an Ebola-affected area in the 21 days before illness onset. Initial Sepsis Screen: Does the patient meet any 2 criteria? No. Patient's initial sepsis screen is negative. Does the patient have a suspected source of infection? No. Patient's initial sepsis screen is negative. Risk Assessment: Do you want to hurt yourself or someone else? Patient reports no desire to harm self or others. Onset of symptoms is unknown. 15:47 Method Of Arrival: EMS: [facility] eo2 15:47 Acuity: BETHANY 2 eo2 Triage Assessment: 15:51 General: Appears in no apparent distress. comfortable, Behavior is calm, cooperative. eo2 Pain: Complains of pain in right leg. Historical: - Allergies: 15:50 Codeine; eo2 - Home Meds: 15:50 alprazolam 0.25 mg Oral tab 1 tab twice a day [Active]; amlodipine 10 mg tab 1 tab once eo2 daily [Active]; cyclobenzaprine 10 mg Oral tab 1 tab once daily [Active]; Cymbalta 30 mg Oral cpDR 1 cap once daily [Active]; esomeprazole magnesium 40 mg Oral cpDR 1 cap once daily [Active]; ezetimibe 10 mg Oral tab 1 tab once daily [Active]; hydrochlorothiazide 25 mg Oral tab 1 tab once daily [Active]; levothyroxine 100 mcg cap 1 cap once daily [Active]; metoprolol succinate 50 mg Oral CSpX 1 cap once daily [Active]; tamsulosin 0.4 mg Oral cap 1 cap once daily [Active]; trazodone 100 mg Oral tab 1 tab once daily [Active]; - PMHx: 15:50 Atrial fibrillation; Hypertensive disorder; eo2 15:51 GERD; Hypothyroidism; HIGH CHOLESTEROL; DEPRESSION; eo2 - Immunization history:: Adult Immunizations up to date, COVID X 3 DOSES. - Social history:: Smoking status: Patient/guardian denies using alcohol, street drugs, tobacco products. Screenin:53 Abuse screen: Denies threats or abuse. Denies injuries from another. Nutritional eo2 screening: No deficits noted. Tuberculosis screening: No symptoms or risk factors identified. Fall Risk None identified. Assessment: 15:53 General: Appears in no apparent distress. distressed, Behavior is calm, cooperative. eo2 Neuro: Level of Consciousness is awake, alert, obeys commands, Oriented to person, place, time, situation, Reports weakness Generalized Denies dizziness, headache. Cardiovascular: Denies chest pain, shortness of breath, Capillary refill < 3 seconds. Respiratory: Airway is patent Trachea midline Respiratory effort is even, unlabored, Respiratory pattern is regular, symmetrical, Breath sounds are clear bilaterally. GI: Reports loss of appetite Patient currently denies abdominal pain, nausea, vomiting. Musculoskeletal: Reports pain in right leg had vascular bypass surgery- unable to state when, noted bruising to distal thigh. 16:46 General: Informed primary nurse and P.A lab results K 2.9; Trop 692.10. cb5 18:10 Reassessment: Pt reporting epigastric pain and headache, Unruly WALDEN made aware. eo2 19:26 General: I had visited with the pt and her and was ready to call report, when halley her Covid came back positive. The transfer center was notified, as well as, the pt and her . We are awaiting another bed assignment, at present. She was to go to [facility] [place] and the number to call report, would have been, . . Vital Signs: 15:47 BP 146 / 79; Pulse 61; Resp 15; Temp 98.8; Pulse Ox 98% ; Weight 72.57 kg; Height 5 ft. eo2 7 in. (170.18 cm); Pain 3/10; 16:54 BP 207 / 95; Pulse 66; Resp 19; Pulse Ox 99% on 2 lpm NC; Pain 6/10; eo2 17:46 BP 205 / 80 LA (/reg); Pulse 65; Resp 17; Pulse Ox 100% ; Pain 0/10; eo2 18:00 BP 145 / 101; Pulse 79; Resp 19; Pulse Ox 99% on 2 lpm NC; eo2 18:30 BP 156 / 90; Pulse 76; Resp 20; Pulse Ox 100% ; Pain 10/10; eo2 19:23 BP 138 / 75; Pulse 68; Resp 16; Temp 98.5; Pulse Ox 100% on 2 lpm NC; Pain 3/10; halley 22:00 BP 109 / 66; Pulse 79; Resp 16; Pulse Ox 96% on R/A; ss7 23:02 BP 110 / 62; Pulse 73; Resp 18; Pulse Ox 100% ; lr4 15:47 Body Mass Index 25.06 (72.57 kg, 170.18 cm) eo2 17:46 Unruly PA aware eo2 Vitals: 18:30 Cardiac Rhythm Assessment Atrial fibrillation. eo2 ED Course: 15:36 Patient arrived in ED. am2 15:44 Unruly Urias PA is PHCP. cp 15:45 Carlos Hollingsworth MD is Attending Physician. cp 15:47 Kathleen Malagon, SUHAIL is Primary Nurse. eo2 15:50 Triage completed. eo2 15:51 Arm band placed on. eo2 15:53 Patient has correct armband on for positive identification. Pulse ox on. NIBP on. Door eo2 closed. Noise minimized. Warm blanket given. 15:53 No provider procedures requiring assistance completed. Maintain EMS IV. Dressing eo2 intact. 20g R.AC. 15:56 EKG done, by ED staff. lr4 15:58 Patient taken to ultrasound. via wheelchair. eo2 15:58 Basic Metabolic Panel Sent. eo2 15:58 CBC with Automated Diff Sent. eo2 15:58 Liver (Hepatic) Function Sent. eo2 15:58 Urine Microscopic Only Sent. eo2 15:58 Basic Metabolic Panel Sent. eo2 15:58 CBC with Diff Sent. eo2 15:58 LFT's Sent. eo2 16:05 LE Artery Uni Ltd Sent. lr4 16:06 US Extremity Venous Unilateral Ltd Sent. lr4 16:46 US Extremity Venous Unilateral Ltd In Process Unspecified. EDMS 16:53 US LE Artery Uni Ltd In Process Unspecified. EDMS 17:04 XRAY Chest (1 view) In Process Unspecified. EDMS 17:27 CT Head Brain wo Cont In Process Unspecified. EDMS 17:51 Transfer initiated with Sarah at the [facility]. em1 17:53 SARS-COV-2 RT PCR (Document "Date of Onset" if Symptomatic) Sent. eo2 18:30 Inserted saline lock: 22 gauge in left forearm, using aseptic technique. eo2 18:46 [facility] transfer called to request extension. em1 19:00 Report given to Stephanie JANG. eo2 19:07 acceptance from [facility] at 1908. mb4 19:19 Notified Nurse Practitioner and/or Physician Bracer of a critical lab result(s), bb COVID positive. 19:22 notified Sara at [facility] of pt's +covid19 status. She advised to mb4 standby, she will call back shortly. 19:28 Warm blanket given. Verbal reassurance given. halley 20:19 Report given to Kelsey with [facility]. ss7 20:23 [facility] ETA one hour. mb4 22:16 Repositioned patient. Cleaned of incontinence. ss7 23:02 Patient transferred, IV remains in place. lr4 23:06 Pt transported via stretcher per [facility] in [facility]. Heparin at \\T\\26ml/hr continues ss7 during transport. All personal belongings in one bag being sent with patient. Administered Medications: 16:55 CANCELLED (Physician Discretion): Aspirin Chewable Tablet 324 mg PO once; 81 mg tablets cp x 4 17:15 Drug: morphine 4 mg Route: IVP; Site: right antecubital; eo2 18:11 Follow up: Response: No adverse reaction; Pain is decreased; right leg Pain is decreasedeo2 17:15 Drug: Zofran (Ondansetron) 4 mg Route: IVP; Site: right antecubital; eo2 18:12 Follow up: Response: No adverse reaction eo2 17:43 Drug: Potassium Chloride 20 mEq Route: IV; Rate: calculated rate; Site: right eo2 antecubital; 20:00 Follow up: IV Status: Completed infusion ss7 17:43 Drug: Magnesium Sulfate 2 grams Route: IVPB; Infused Over: 2 hrs; Site: right eo2 antecubital; 19:22 Follow up: Response: No adverse reaction; IV Status: Completed infusion; IV Intake: 50mlbo 20:00 Follow up: IV Status: Completed infusion ss7 17:54 Drug: hydrALAZINE 10 mg Route: IVP; Site: right antecubital; eo2 18:40 Follow up: Response: No adverse reaction; Blood pressure is lowered eo2 18:07 Drug: NS 0.9% 250 ml Route: IV; Rate: 75 ml/hr; Site: right antecubital; eo2 18:35 Drug: ProTONIX (pantoprazole) 40 mg Route: IVP; Site: left forearm; eo2 19:01 Follow up: Response: No adverse reaction eo2 18:36 Drug: Zofran (Ondansetron) 4 mg Route: IVP; Site: left forearm; eo2 19:01 Follow up: Response: No adverse reaction; Nausea is decreased eo2 18:37 Drug: morphine 4 mg Route: IVP; Site: left forearm; eo2 19:01 Follow up: Response: No adverse reaction; Pain is decreased eo2 19:41 Drug: Heparin (DVT/PE Drip) 18 units/kg/hr - (HEParin 21167 units, D5W 500 ml) halley {Co-Signature: ss7 (Stephanie Ortega RN).} Route: IV; Rate: 26 mg/hr; Site: left forearm; 23:08 Follow up: Response: No adverse reaction ss7 Intake: 19:22 IV: 50ml; Total: 50ml. halley Outcome: 18:22 ER care complete, transfer ordered by MD. ramirez 22:26 Discharged to home ss7 22:26 Condition: good 22:26 Discharge instructions given to patient. 23:16 Patient left the ED. ss7 Signatures: Dispatcher [employer] EDMS Sara Roberts RN RN bb Martinez, Eric em1 Unruly Urias PA PA Nazanin Macedo am2 Giulia Amado mb4 Sara Walker RN RN halley Kathleen Malagon RN RN eo2 Deborah Herrera RN RN cb5 Stephanie Ortega RN RN ss7 Tarsha Cervantes RN RN lr4 Stephanie Ortega RN ss7 Corrections: (The following items were deleted from the chart) 17:44 16:54 BP 207 / 95; Pulse 66bpm; Resp 19bpm; Pulse Ox 99% 2 lpm Nasal Cannula; Pain eo2 3/10; eo2
--- NOTE | 2021-11-07 18:23 | EDPHYS ---
Physician Documentation [facility] Name: Neela Staton Age: 76 yrs Sex: Female : 1945 Arrival Date: 11/07/2021 Time: 15:36 Bed 25 Private MD: ED Physician Carlos Hollingsworth HPI: 11/07 15:45 This 76 yrs old Female presents to ER via EMS with complaints of Weakness and Right Leg cp Pain. 15:45 The patient's problem is reported as weakness, that is generalized, fatigue. cp 15:45 Onset: The symptoms/episode began/occurred today. cp 15:45 Duration: The episode is continuous. Associated signs and symptoms: Pertinent cp negatives: abdominal pain, chest pain, confusion, diarrhea, dizziness, palpitations, vomiting, fever. Patient's baseline: Neuro: alert and fully oriented, Motor: no deficits, Ambulation: walks without assistance, Speech: normal. Historical: - Allergies: 15:50 Codeine; eo2 - Home Meds: 15:50 alprazolam 0.25 mg Oral tab 1 tab twice a day [Active]; amlodipine 10 mg tab 1 tab once eo2 daily [Active]; cyclobenzaprine 10 mg Oral tab 1 tab once daily [Active]; Cymbalta 30 mg Oral cpDR 1 cap once daily [Active]; esomeprazole magnesium 40 mg Oral cpDR 1 cap once daily [Active]; ezetimibe 10 mg Oral tab 1 tab once daily [Active]; hydrochlorothiazide 25 mg Oral tab 1 tab once daily [Active]; levothyroxine 100 mcg cap 1 cap once daily [Active]; metoprolol succinate 50 mg Oral CSpX 1 cap once daily [Active]; tamsulosin 0.4 mg Oral cap 1 cap once daily [Active]; trazodone 100 mg Oral tab 1 tab once daily [Active]; - PMHx: 15:50 Atrial fibrillation; Hypertensive disorder; eo2 15:51 GERD; Hypothyroidism; HIGH CHOLESTEROL; DEPRESSION; eo2 - Immunization history:: Adult Immunizations up to date, COVID X 3 DOSES. - Social history:: Smoking status: Patient/guardian denies using alcohol, street drugs, tobacco products. ROS: 15:50 Constitutional: Negative for body aches, chills, fever, poor PO intake. cp 15:50 Cardiovascular: Negative for chest pain. cp 15:50 Respiratory: Negative for cough, shortness of breath, wheezing. 15:50 Abdomen/GI: Negative for abdominal pain, nausea, vomiting, and diarrhea. 15:50 Eyes: Negative for injury, pain, redness, and discharge. cp 15:50 ENT: Negative for ear pain, sore throat, difficulty swallowing, difficulty handling secretions. 15:50 Neuro: Positive for weakness, Negative for altered mental status, dizziness, headache, numbness, syncope. 15:50 Skin: Negative for cellulitis, rash. cp 15:50 All other systems are negative. Exam: 15:55 Constitutional: The patient appears in no acute distress, alert, awake, cp non-diaphoretic, non-toxic, well developed, well nourished. 15:55 Head/Face: Normocephalic, atraumatic. cp 15:55 Eyes: Periorbital structures: appear normal, Pupils: equal, round, and reactive to light and accomodation, Extraocular movements: intact throughout, Conjunctiva: normal, no exudate, no injection, Sclera: no appreciated abnormality, Lids and lashes: appear normal, bilaterally. 15:55 ENT: External ear(s): are unremarkable, Ear canal(s): are normal, clear, TM's: dullness, bilaterally, Nose: is normal, Mouth: Lips: moist, Oral mucosa: pink and intact, moist, Posterior pharynx: Airway: no evidence of obstruction, patent. 15:55 Neck: ROM/movement: is normal, is supple, without pain, no range of motions limitations. 15:55 Chest/axilla: Inspection: normal, Palpation: is normal, no crepitus, no tenderness. 15:55 Cardiovascular: Rate: normal, Rhythm: regular, Edema: is not appreciated, JVD: is not appreciated. 15:55 Respiratory: the patient does not display signs of respiratory distress, Respirations: normal, no use of accessory muscles, no retractions, labored breathing, is not present, Breath sounds: are clear throughout, no decreased breath sounds, no stridor, no wheezing. 15:55 Abdomen/GI: Inspection: abdomen appears normal, Bowel sounds: active, all quadrants, Palpation: abdomen is soft and non-tender, in all quadrants. 15:55 Back: pain, is absent, ROM is normal. 15:55 Neuro: Orientation: to person, place \\T\\ time. Mentation: is normal, Cerebellar function: Romberg testing is negative, Motor: moves all fours, strength is normal, Sensation: is normal. 16:01 ECG was reviewed by the Attending Physician. 18:08 Radiologist reports: no acute findings Vital Signs: 15:47 BP 146 / 79; Pulse 61; Resp 15; Temp 98.8; Pulse Ox 98% ; Weight 72.57 kg; Height 5 ft. eo2 7 in. (170.18 cm); Pain 3/10; 16:54 BP 207 / 95; Pulse 66; Resp 19; Pulse Ox 99% on 2 lpm NC; Pain 6/10; eo2 17:46 BP 205 / 80 LA (/reg); Pulse 65; Resp 17; Pulse Ox 100% ; Pain 0/10; eo2 18:00 BP 145 / 101; Pulse 79; Resp 19; Pulse Ox 99% on 2 lpm NC; eo2 18:30 BP 156 / 90; Pulse 76; Resp 20; Pulse Ox 100% ; Pain 10/10; eo2 19:23 BP 138 / 75; Pulse 68; Resp 16; Temp 98.5; Pulse Ox 100% on 2 lpm NC; Pain 3/10; halley 22:00 BP 109 / 66; Pulse 79; Resp 16; Pulse Ox 96% on R/A; ss7 23:02 BP 110 / 62; Pulse 73; Resp 18; Pulse Ox 100% ; lr4 15:47 Body Mass Index 25.06 (72.57 kg, 170.18 cm) eo2 17:46 Unruly PA aware eo2 MDM: 15:48 Patient medically screened. cp 16:00 Differential diagnosis: CVA, TIA, metabolic disorder, drug effects, acute SC, cp dehydration, UTI. 18:10 Data reviewed: vital signs, nurses notes, lab test result(s), EKG, radiologic studies, CT scan, plain films, ultrasound, I have discussed the patient's presentation/case with the attending Emergency Department Physician; and as a result, I will transfer patient. 18:10 Test interpretation: by ED physician or midlevel provider: ECG, plain radiologic studies. 19:10 Physician consultation: was contacted at 19:05, regarding regarding transfer, to [facility]. patient's condition, accepting physician will be DR Edward Garcia. Wants Heparin drip started. 11/07 15:46 Order name: Basic Metabolic Panel 11/07 15:46 Order name: CBC with Diff 11/07 15:46 Order name: LFT's 11/07 15:46 Order name: Magnesium; Complete Time: 16:47 cp 11/07 16:51 Interpretation: Abnormal: MG 1.5. 11/07 15:46 Order name: NT PRO-BNP; Complete Time: 16:47 cp 11/07 16:47 Interpretation: Abnormal: NT PRO-BNP 3815. 11/07 15:46 Order name: PT-INR; Complete Time: 16:47 cp 11/07 16:52 Interpretation: Reviewed. 11/07 15:46 Order name: Troponin HS; Complete Time: 16:47 cp 11/07 18:20 Interpretation: Troponin HS 692.10; Reviewed. 11/07 15:46 Order name: XRAY Chest (1 view); Complete Time: 17:14 11/07 15:46 Order name: Urine Microscopic Only; Complete Time: 18:02 11/07 15:47 Order name: Basic Metabolic Panel; Complete Time: 16:47 EDMS 11/07 16:53 Interpretation: Normal except: K 2.9; CO2 33; GFR 53; CA 8.2. 11/07 15:47 Order name: CBC with Automated Diff; Complete Time: 16:47 EDMS 11/07 16:52 Interpretation: Normal except: HGB 10.8; HCT 33.0; MCV 78.5; MCH 25.6; RDW 17.8; MPV cp 7.4; MN% 13.9. 11/07 15:47 Order name: Liver (Hepatic) Function; Complete Time: 16:47 EDMS 11/07 17:03 Order name: Urine Dipstick-Ancillary; Complete Time: 17:14 EDMS 11/07 17:42 Order name: SARS-COV-2 RT PCR (Document "Date of Onset" if Symptomatic) em1 11/07 15:46 Order name: EKG; Complete Time: 15:47 11/07 15:46 Order name: Cardiac monitoring; Complete Time: 16:06 11/07 15:46 Order name: CT Head Brain wo Cont; Complete Time: 18:02 cp 11/07 18:02 Interpretation: Report reviewed. cp 11/07 15:48 Order name: Extremity Venous Unilateral Ltd; Complete Time: 17:14 cp 11/07 15:48 Order name: LE Artery Uni Ltd; Complete Time: 17:14 cp 11/07 15:46 Order name: EKG - Nurse/Tech; Complete Time: 15:58 cp 11/07 15:46 Order name: IV Saline Lock; Complete Time: 15:58 cp 11/07 15:46 Order name: Labs collected and sent; Complete Time: 15:58 cp 11/07 15:46 Order name: O2 Per Protocol; Complete Time: 15:58 cp 11/07 15:46 Order name: O2 Sat Monitoring; Complete Time: 15:58 cp 11/07 15:46 Order name: Urine Dipstick-Ancillary (obtain specimen); Complete Time: 17:04 cp EC:01 Rate is 64 beats/min. Rhythm is irregular. QRS interval is normal. QT interval is cp normal. Interpreted by me. Reviewed by me. Administered Medications: 16:55 CANCELLED (Physician Discretion): Aspirin Chewable Tablet 324 mg PO once; 81 mg tablets cp x 4 17:15 Drug: morphine 4 mg Route: IVP; Site: right antecubital; eo2 18:11 Follow up: Response: No adverse reaction; Pain is decreased; right leg Pain is decreasedeo2 17:15 Drug: Zofran (Ondansetron) 4 mg Route: IVP; Site: right antecubital; eo2 18:12 Follow up: Response: No adverse reaction eo2 17:43 Drug: Potassium Chloride 20 mEq Route: IV; Rate: calculated rate; Site: right eo2 antecubital; 20:00 Follow up: IV Status: Completed infusion ss7 17:43 Drug: Magnesium Sulfate 2 grams Route: IVPB; Infused Over: 2 hrs; Site: right eo2 antecubital; 19:22 Follow up: Response: No adverse reaction; IV Status: Completed infusion; IV Intake: 50mlbo 20:00 Follow up: IV Status: Completed infusion ss7 17:54 Drug: hydrALAZINE 10 mg Route: IVP; Site: right antecubital; eo2 18:40 Follow up: Response: No adverse reaction; Blood pressure is lowered eo2 18:07 Drug: NS 0.9% 250 ml Route: IV; Rate: 75 ml/hr; Site: right antecubital; eo2 18:35 Drug: ProTONIX (pantoprazole) 40 mg Route: IVP; Site: left forearm; eo2 19:01 Follow up: Response: No adverse reaction eo2 18:36 Drug: Zofran (Ondansetron) 4 mg Route: IVP; Site: left forearm; eo2 19:01 Follow up: Response: No adverse reaction; Nausea is decreased eo2 18:37 Drug: morphine 4 mg Route: IVP; Site: left forearm; eo2 19:01 Follow up: Response: No adverse reaction; Pain is decreased eo2 19:41 Drug: Heparin (DVT/PE Drip) 18 units/kg/hr - (HEParin 84507 units, D5W 500 ml) halley {Co-Signature: ss7 (Stephanie Ortega RN).} Route: IV; Rate: 26 mg/hr; Site: left forearm; 23:08 Follow up: Response: No adverse reaction ss7 Disposition Summary: 11/07/21 18:22 Transfer Ordered Transfer Location: [facility] cp Reason: Higher level of care cp Condition: Stable cp Problem: new cp Symptoms: have improved cp Accepting Physician: DR Edward Garcia(11/07/21 23:16) ss7 Diagnosis - Non ST elevation SC cp - Right Femerol Artery Occlusion cp - Chronic atrial fibrillation cp Forms: - Medication Reconciliation Form cp - SBAR form cp Signatures: Dispatcher [employer] EDHI Unruly Urias PA PA cp Sara Walker RN RN bo Owoade, Eunice, RN RN eo2 Stephanie Ortega RN RN ss7 Stephanie Ortega RN ss7 Corrections: (The following items were deleted from the chart) 16:55 16:55 Aspirin Chewable Tablet 324 mg PO once; 81 mg tablets x 4 ordered. cp cp 19:15 18:22 Doctor cp cp 19:16 19:15 DR Edward Garcia cp cp 23:16 19:16 DR Edward Garcia cp ss7 11/08 02:30 11/07 15:45 The patient's problem is reported as weakness, that is generalized, cp cp
[2021-11-07] MEDS ORDERED: FAMOTIDINE 20 MG/2 ML VIAL IV ONE (18:27)
[2021-11-07] MEDS ORDERED: PANTOPRAZOLE 40 MG INJ ONE (18:28)
[2021-11-07] MEDS ORDERED: HEPARIN/D5W 25,000 UNIT/500 ML BAG IV ONE (19:33)
[2021-11-08 00:57] VITALS: TEMP 98.5
[2021-11-08 00:59] VITALS: BP 110/62; O2SAT 100
== END 2021-11-07 23:16 | disposition short-term general hospital (02) ==
LOC: ER 15:35
DX: I21.4 Non-ST elevation (NSTEMI) myocardial infarction (principal); U07.1 COVID-19; I70.90 Unspecified atherosclerosis; I48.20 Chronic atrial fibrillation, unspecified; I10 Essential (primary) hypertension; E03.9 Hypothyroidism, unspecified; E78.00 Pure hypercholesterolemia, unspecified; F32.A Depression, unspecified; Z88.5 Allergy status to narcotic agent
CPT/HCPCS: 93005; 85025; 80048; 36415; 83735; 85610; 80076; 84484; 83880; 70450; 71045; 93926; 93971; 99285; U0003; J0360; C9113; J3480; J3475; J7050; J1644; J2405 ×2; 81003; 81015

== ENCOUNTER 2022-01-31 15:53 | Inpatient (IN) | payer OTHER ==
--- OUTSIDE RECORDS SUMMARY | 2022-01-31 15:57 | XMS REPORT | Continuity of Care Document ---
:[address] [facility] t Address [address] [place] [address] Care Team Providers Name Role Phone Unknown Primary Care Physician Unavailable GLADIS Attending Clinician Unavailable Chayo Attending Clinician Unavailable [id number] Attending Clinician Unavailable LUBA CONNELL Attending Clinician Unavailable Galindo Attending Clinician Unavailable NOHEMI VELEZ Attending Clinician Unavailable Cabrera Linda Admitting Clinician Unavailable Physician, Primary or Family Admitting Clinician Unavailabl e [id number] Admitting Clinician Unavailable LUBA CONNELL Admitting Clinician Unavailable Chayo Admitting Clinician Unavailable Payers Payer Name Policy Type Policy Number Effective Date Expiration Date S juan [employer]ET[employer] MEDICARE [id number] 2020 2024 PPO 00:00:00 00:00:00 Problems Condition Condition Condition Status Onset Resolution Last Treating Co mments Source Name Details Category Date Date Treatment Clinician Date Post-opera Post-opera Disease Active U T tive state tive state 10-15 He alth 00:00: 00 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 2-06 He alth foot, foot, 00:00: limited to [...] ents Source Name Type Date Date Clinician No Known DA Active U [facility] Allergie 3-07 Clear s 00:00: Sampson 00 [facility] codeine DA Active [place] [facility] 307 Clear HERNIA 00:00: Sampson 00 [facility] Codeine Allergy Active Unknown [facility] to 03-30 [facility] 00:00: e 00 Social History Social Habit Start Date Stop Date Quantity Comments Source Tobacco use and 2021-06-28 2021-06-28 Smokeless tobacco [facility] exposure 00:00:00 00:00:00 non-user Sex Assigned At [birth year] [facility] 00:00:[facility] 00:00:00 Smoking Status Start Date Stop Date Source Smokes tobacco daily 2021-06-28 00:00:00 [facility] Medications Ordered Filled Start Stop Current Ordering Indication Dosage Frequency Signature Comments Components Source Medication Medication Date Date Medication? Clinician (SIG) Name Name acetaminoph Yes [id number] 1{tbl} Take 1 UT en-codeine 5-02 tablet by [facility] (TYLENOL/CO 00:00: mouth DEINE #3) 00 every 4 300-30 MG (four) tablet hours if needed for severe pain. naloxone 2022- Yes [id number] .4mg Administer UT (Narcan) 2 11-18 03-08 0.4 mL Health MG/2ML 00:00: 05:59 (0.4 mg injection 00 :00 total) into affected nostril(s) if needed for opioid reversal. May repeat every 2-3 minutes as needed until medical assistance available. naloxone 2022- Yes [id number] .4mg Administer [facility] (Narcan) 2 11-18-08 0.4 mL Health MG/2ML 00:00: 05:59 (0.4 mg injection 00 :00 total) into affected nostril(s) if needed for opioid reversal. May repeat every 2-3 minutes as needed until medical assistance available. naloxone 2022- Yes [id number] .4mg Administer UT (Narcan) 2 11-18- 0.4 mL Health MG/2ML 00:00: 05:59 (0.4 mg injection 00 :00 total) into affected nostril(s) if needed for opioid reversal. May repeat every 2-3 minutes as needed until medical assistance available. naloxone 2022- Yes [id number] .4mg Administer UT (Narcan) 2 11-18- 0.4 mL Health MG/2ML 00:00: 05:59 (0.4 mg injection 00 :00 total) into affected nostril(s) if needed for opioid reversal. May repeat every 2-3 minutes as needed until medical assistance available. traMADol 2021- Yes [id number] 50mg Take 1 UT (Ultram) 50 11-18 tablet (50 H ealth MG tablet 00:00: 05:59 mg total) 00 :00 by mouth every 8 (eight) hours if needed for severe pain for up to 5 days. Apixaban 2020-09 Yes Take by UT (ELIQUIS 2-06 mouth. Health PO) 12:07: 12 ASPIRIN 2020-09 Yes Take by [facility] ADULT PO 2-06 mouth. Health 12:07: 12 Apixaban 2020-09 Yes Take by UT (ELIQUIS 2-06 mouth. Health PO) 12:07: 12 ASPIRIN 2020-09 Yes Take by UT ADULT PO 2-06 mouth. Health 12:07: 12 Apixaban 2020-09 Yes Take by UT (ELIQUIS 2-06 mouth. Health PO) 12:07: 12 ASPIRIN 2020-09 Yes Take by UT ADULT PO 2-06 mouth. Health 12:07: 12 Apixaban 2020-09 Yes Take by UT (ELIQUIS 2-06 mouth. Health PO) 12:07: 12 ASPIRIN 2020-09 Yes Take by UT ADULT PO 2-06 mouth. Health 12:07: 12 Apixaban 2020-09 Yes Take by MD (ELIQUIS 2-06 mouth. Health PO) 12:07: 12 ASPIRIN 2020-09 Yes Take by MD ADULT PO 2-06 mouth. Health 12:07: 12 traMADol 2020-09- No [id number] 50mg Take 1 U T (Ultram) 50 1-02 11-08 tablet (50 H ealth MG tablet 00:00: 05:59 mg total) 00 :00 by mouth every 8 (eight) hours if needed for severe pain for up to 5 days. traMADol 2020-09- No [id number] 50mg Q6H Take 1 U T (Ultram) 50 0-15 10-23 tablet (50 H ealth MG tablet 00:00: 04:59 mg total) 00 :00 by mouth every 6 (six) hours if needed for severe pain for up to 7 days. amLODIPine Yes UT (Norvasc) 9- Health 10 MG 00:00: tablet 00 levothyroxi 0 Yes UT ne 9- Health (Synthroid, 00:00: Levoxyl) 00 100 MCG tablet tamsulosin 0 Yes UT (Flomax) 9 Health 0.4 MG 24 00:00: hr capsule 00 amLODIPine 2020-0 Yes UT (Norvasc) 9 Health 10 MG 00:00: tablet 00 levothyroxi 2020-0 Yes UT ne 9- Health (Synthroid, 00:00: Levoxyl) 00 100 MCG tablet tamsulosin 0 Yes UT (Flomax) 9-19 Health 0.4 MG 24 00:00: hr capsule 00 amLODIPine 2020-0 Yes UT (Norvasc) 9- Health 10 MG 00:00: tablet 00 levothyroxi 2020-0 Yes UT ne 9-19 Health (Synthroid, 00:00: Levoxyl) 00 100 MCG tablet tamsulosin 2020-0 Yes UT (Flomax) 9-19 Health 0.4 MG 24 00:00: hr capsule 00 amLODIPine 2020-0 Yes UT (Norvasc) 9- Health 10 MG 00:00: tablet 00 levothyroxi 2020-0 Yes UT ne 9-19 Health (Synthroid, 00:00: Levoxyl) 00 100 MCG tablet tamsulosin 2020-0 Yes UT (Flomax) 9-19 Health 0.4 MG 24 00:00: hr capsule 00 amLODIPine 2020-0 Yes UT (Norvasc) 9-19 Health 10 MG 00:00: tablet 00 levothyroxi 2020-0 Yes UT ne 9-19 Health (Synthroid, 00:00: Levoxyl) 00 100 MCG tablet tamsulosin 2020-0 Yes UT (Flomax) 9-19 Health 0.4 MG 24 00:00: hr capsule 00 amLODIPine 2020-0 Yes UT (Norvasc) 9-19 Health 10 MG 00:00: tablet 00 levothyroxi 2020-0 Yes UT ne 9-19 Health (Synthroid, 00:00: Levoxyl) 00 100 MCG tablet tamsulosin 2020-0 Yes UT (Flomax) 919 Health 0.4 MG 24 00:00: hr capsule 00 amLODIPine 2020-0 Yes UT (Norvasc) 9-19 Health 10 MG 00:00: tablet 00 levothyroxi 2020-0 Yes UT ne 9-19 Health (Synthroid, 00:00: Levoxyl) 00 100 MCG tablet tamsulosin 2020-0 Yes UT (Flomax) 9-19 Health 0.4 MG [...] 00:00: mouth tablet 00 every night. traZODone 1-0 Yes 100mg Take 100 UT (Desyrel) 9-02 mg by Health 100 MG 00:00: mouth tablet 00 every night. traZODone 1-0 Yes 100mg Take 100 UT (Desyrel) 9-02 mg by Health 100 MG 00:00: mouth tablet 00 every night. traZODone 1-0 Yes 100mg Take 100 UT (Desyrel) 9-02 mg by Health 100 MG 00:00: mouth tablet 00 every night. traZODone 1-0 Yes 100mg Take 100 UT (Desyrel) 9-02 mg by Health 100 MG 00:00: mouth tablet 00 every night. traZODone 1-0 Yes 100mg Take 100 UT (Desyrel) 9-02 mg by Health 100 MG 00:00: mouth tablet 00 every night. traZODone 2020-0 Yes 100mg Take 100 UT (Desyrel) 9-02 mg by Health 100 MG 00:00: mouth tablet 00 every night. metoprolol 2020-0 Yes UT succinate 8 Health XL 00:00: (Toprol-XL) 00 50 MG 24 hr tablet metoprolol 2020-0 Yes UT succinate 8 Health XL 00:00: (Toprol-XL) 00 50 MG 24 hr tablet metoprolol 2020-0 Yes UT succinate 8 Health XL 00:00: (Toprol-XL) 00 50 MG 24 hr tablet metoprolol 2020-0 Yes UT succinate 8 Health XL 00:00: (Toprol-XL) 00 50 MG 24 hr tablet metoprolol 2020-0 Yes UT succinate 8 Health XL 00:00: (Toprol-XL) 00 50 MG 24 hr tablet metoprolol 2020-0 Yes UT succinate 8 Health XL 00:00: (Toprol-XL) 00 50 MG 24 hr tablet metoprolol 2020-0 Yes UT succinate 8 Health XL 00:00: (Toprol-XL) 00 50 MG 24 hr tablet ezetimibe 2020-0 Yes UT (Zetia) 10 8-15 Health MG tablet 00:00: 00 ezetimibe 2021-0 Yes UT (Zetia) 10 8-15 Health MG tablet 00:00: 00 ezetimibe 2021-0 Yes UT (Zetia) 10 8-15 Health MG tablet 00:00: 00 ezetimibe 2021-0 Yes UT (Zetia) 10 8-15 Health MG tablet 00:00: 00 ezetimibe 2021-0 Yes UT (Zetia) 10 8-15 Health MG tablet 00:00: 00 ezetimibe 2021-0 Yes UT (Zetia) 10 8-15 Health MG tablet 00:00: 00 ezetimibe 2021-0 Yes UT (Zetia) 10 8-15 Health MG [...] every 10 MG 00 night. tablet cyclobenzap Yes 10mg Take 10 mg UT rine 7-25 by mouth Health (Flexeril) 00:00: every 10 MG 00 night. tablet Procedures Procedure Date / Time Performed Performing Clinician Ronald phillips [id number] 2021-11-20 00:00:00 ALDMO [facility] Encounters Start End Encounter Admission Attending Care Care Encounter Source Date/Time Date/Time Type Type Clinicians Facility Department ID 2022-01-30 Outpatient [facility] [id number] MD 08:25:37 [id number] [facility] 2022-01-13 [facility] [id number] MD 08:01:11 ARASH [id number] [facility] 2022-01-10 [facility] [id number] MD 01:05:02 ARASH [id number] [facility] 2022-01-08 Outpatient [facility] [id number] MD 08:51:18 [id number] [facility] 2022-01-01 [facility] [id number] MD 08:50:28 ARASH [id number] [facility] 2021-12-16 Inpatient HECTOR OlmosBERONICA OUTD [id number] [facility] 10:30:00 Ortiz [id number] [facility] 2021-12-05 [facility] [id number] MD 13:45:58 ARASH [id number] [facility] 2021-12-04 [facility] [id number] [facility] 08:40:17 ARASH [id number] [facility] 2021-12-03 [facility] [id number] [facility] 12:29:19 ARASH [id number] [facility] 2021-11-21 Outpatient [facility] [id number] [place] 10:56:53 [facility] 2021-11-21 Outpatient [facility] [id number] UT 10:55:46 [facility] 2021-11-18 Inpatient TRINI Olmos OUTD [id number] [facility] 13:00:00 Ortiz [id number] [facility] 2021-10-22 Outpatient [id number] [facility] CRD [id number] [facility] 10:32:05 [id number] 2021-10-16 Outpatient [id number] [facility] REF [id number] [facility] 10:31:34 2012021-10-01 Outpatient GLADIS, [facility] [id number] [place] 01:05:41 [facility] 2021-09-27 Inpatient GLADIS SE [facility] [id number] 14:57:03 [facility] 2021-09-24 Outpatient GLADIS, [facility] [id number] UT 14:24:58 [facility] 2021-09-16 Outpatient [facility] [id number] [place] 08:56:13 [facility] 2021-09-16 Outpatient [facility] [id number] UT 08:54:24 [facility] 2021-08-19 Outpatient GLADIS, [facility] [id number] UT 07:57:20 [facility] 2021-08-19 Outpatient [facility] [id number] UT 07:56:39 [facility] 2021-08-19 Outpatient [facility] [id number] UT 07:55:37 [facility] 2021-07-23 Outpatient [facility] [id number] UT 10:43:22 [facility] 2021-07-23 Outpatient GLADIS, [facility] [id number] [place] 10:42:25 [facility] 2021-07-23 Outpatient [facility] [id number] UT 10:36:58 [facility] 2022-01-13 2022-01-13 Office ESPERANZA Connell [facility] [id number] MD 10:00:00 10:15:00 Visit Arash CAMILLA [id number] [facility]key [place] [id number] [facility] [id number] 1 2022-01-01 2022-01-01 Telephonic ESPERANZA Connell [id number] MD 07:45:00 08:52:16 Encounter Arash BROTHERS [id number] [facility] [id number] 2021-12-18 2021-12-18 Outpatient TRINI Olmos [facility] [id number] [facility] 05:16:00 05:16:00 Ortiz [id number] [facility] 2021-12-18 2021-12-18 Outpatient TRINI Olmos [id number] [facility] 05:16:00 05:16:00 Ortiz 70 [facility] 2021-12-04 2021-12-04 Telephonic ESPERANZA Connell [id number] UT 07:45:00 08:47:54 Encounter Arash BROTHERS [id number] [facility] [id number] 2021-11-20 2021-11-21 Inpatient ANISA Medley, [facility] INTE.02 [id number] [facility] 14:27:00 13:39:00 [facility] [id number] [facility] 2021-11-20 2021-11-21 Inpatient EL Galindo, [facility] INTE.02 [id number] [facility] 14:27:00 13:39:00 [facility] 30 [facility] 2021-11-18 2021-11-18 Office ESPERANZA CONNELL [facility] [id number] UT 10:00:00 10:15:00 Visit ARASH SAMPSON [id number] [place]estino lang [facility]ABI[facility] [id number] [facility] [id number] 2021-11-06 2021-11-06 Office ESPERANZA Connell [id number] UT 10:45:00 11:24:42 Visit Arash BROTHERS [id number] Celestino alth [facility] [id number] 2021-09-27 2021-09-27 Emergency E ROSIE, MHSE [facility]SE [id number] 16:11:00 16:11:[address] [facility] 2021-07-16 2021-07-16 Office ESPERANZA Connell [facility] [id number] UT 09:51:23 10:45:55 Visit Arash MED [id number] [facility] [place] [address] [id number] 2021-06-28 2021-06-28 Office ESPERANZA Connell [facility] [id number] UT 09:49:14 10:45:59 Visit Arash MED [id number] [facility] [place] [id number] Results Test Description Test Time Test Comments Results Result Comments Source CBC W/AUTO DIFF 2021-12-18 15:36:00 Test Item Value Reference Range Interpretation Comme nts WHITE BLOOD CELL (test code = 12.0 x10 3/uL 4.5-11.0 H WBC) RED BLOOD CELL (test code = 3.62 x10 6/uL 3.54-5.02 N RBC) HEMOGLOBIN (test code = HGB) 8.9 g/dL 11.0-15.0 L HEMATOCRIT (test code = HCT) 29.4 % 33.0-45.0 L MEAN CELL VOLUME (test code = 81.2 fL 81.0-99.0 N MCV) MEAN CELL HGB (test code = MCH) 24.6 pg 27.0-33.0 L MEAN CELL HGB CONCETRATION 30.3 g/dL 33.0-37.0 L (test code = MCHC) RED CELL DISTRIBUTION WIDTH CV 16.5 % 11.5-14.5 H (test code = RDW) RED CELL DISTRIBUTION WIDTH SD 48.8 fL 37.0-54.0 N (test code = RDW-SD) PLATELET COUNT (test code = 237 x10 3/uL 150-400 N PLT) MEAN PLATELET VOLUME (test code 9.2 fL 7.0-9.0 H = MPV) NEUTROPHIL % (test code = NT%) 80.8 % 56.0-77.0 H LYMPHOCYTE % (test code = LY%) 10.8 % 14.0-32.0 L NEUTROPHIL # (test code = NT#) 9.69 x10 3/uL 2.0-7.6 H LYMPHOCYTE # (test code = LY#) 1.30 x10 3/uL 1.0-3.8 N MANUAL DIFF REQUIRED (test code NO SLIDE REVIEWED, CONSISTENT = MDIFF) WITH AUTO DIFF. IMMATURE GRANULOCYTE % (test 0.4 % 0.0-2.0 N code = IG%) MONOCYTE % (test code = MO%) 6.4 % 4.8-9.0 N EOSINOPHIL % (test code = EO%) 1.1 % 0.3-3.7 N BASOPHIL % (test code = BA%) 0.5 % 0.0-2.0 N NUCLEATED RBC % (test code = 0.0 % 0-0 N NRBC%) IMMATURE GRANULOCYTE # (test 0.05 x10 3/uL 0.00-0.03 H code = IG#) MONOCYTE # (test code = MO#) 0.77 x10 3/uL 0.1-0.8 N EOSINOPHIL # (test code = EO#) 0.13 x10 3/uL 0.0-0.2 N BASOPHIL # (test code = BA#) 0.06 x10 3/uL 0.0-0.2 N NUCLEATED RBC # (test code = 0.00 x10 3/uL 0.0-0.1 N NRBC#) BASIC METABOLIC [id number] 15:06:00 Test Item Value Reference Range Interpretation Comments SODIUM (test code = NA) 137 mEq/L 134-147 N POTASSIUM (test code = 3.7 mEq/L 3.4-5.0 N K) CHLORIDE (test code = 101 mEq/L 100-108 N CL) CARBON DIOXIDE (test 31 mEq/l 21-33 N code = CO2) ANION GAP (test code = 9 0-20 N GAP) GLUCOSE (test code = 140 mg/dL 70-110 H GLU) BLOOD UREA NITROGEN 10 mg/dL 7-18 N (test code = BUN) GLOMERULAR FILTRATION 60.7 70-80 L Units of measure = RATE (test code = GFR) ml/mi n/1.73 m2 CREATININE (test code = 0.9 mg/dL 0.6-1.3 N CREAT) CALCIUM (test code = 8.4 mg/dL 8.0-10.5 N CA) [id number] 12:54:00 Test Item Value Reference Range Interpretation Comments ACT-ISTAT (test code 273 SEC 74-137 H Perform ed 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 = ACTI) 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 [facility] [id number] 12:41:00 Test Item Value Reference Range Interpretation Comments ACT-ISTAT (test code 273 SEC 74-137 H Perform ed 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 = ACTI) 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 [facility] [id number] 12:27:00 Test Item Value Reference Range Interpretation Comments ACT-ISTAT (test code 249 SEC 74-137 H Perform ed 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 = ACTI) 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 Agustina t performance dep ends on theamount of vi anais (antigen) in th e sample.This agustina t has not been FDA cleare d or approved; the t est hasbeen authori zed by FDA under an Em ergency Use Authorizati on(EUA) for use by labo ratories certified under the CLIA thatmeet the requirements to perform moderate, high or waivedcomplexit y tests. BASIC METABOLIC [id number] 12:47:00 Test Item Value Reference Range Interpretation Comments SODIUM (test code = NA) 142 mEq/L 134-147 N POTASSIUM (test code = 3.6 mEq/L 3.4-5.0 N K) CHLORIDE (test code = 103 mEq/L 100-108 N CL) CARBON DIOXIDE (test 31 mEq/l 21-33 N code = CO2) ANION GAP (test code = 11 0-20 N GAP) GLUCOSE (test code = 117 mg/dL 70-110 H GLU) BLOOD UREA NITROGEN 10 mg/dL 7-18 N (test code = BUN) GLOMERULAR FILTRATION 48.2 70-80 L Units of measure = RATE (test code = GFR) ml/mi n/1.73 m2 CREATININE (test code = 1.1 mg/dL 0.6-1.3 N CREAT) CALCIUM (test code = 8.4 mg/dL 8.0-10.5 N CA) PROTHROMBIN [id number] 12:47:00 Test Item Value Reference Range Interpretation Comments PROTHROMBIN TIME 23.4 SECONDS 9.3-12.9 H PATIENT (test code = PTP) INTERNATIONAL NORMAL 2.1 0.8-1.2 H TARGET RATIO (test code = INR BY IN DICATION INR) Indication INR1. Prophyl axis of venous thrombos is 2.0 - 3. 0 (orthopedic william carol), Prophylaxis of venous thrombos is (other than hig h-risk surgery), Violeta tment of Deep Vein Thrombosis/Pulm onary Embolism, Preve ntion of systemic emb olism - Tissue heart va lves, Acute Myocardia l Infarction (to prevent systemic embo lism), Valvular heart disease, Atri al Fibrillation, Bileaflet mecha nical valve in aortic position.2. Mec hanical prosthetic valv es (high risk), 2.5 - 3.5 Presence of Lupus Anticoagu lant or Antiphospholi pid Antibodies, Pre vention of systemic e mbolism - Acute Myocard ial Infarction (t o prevent recurre nt infarct). CBC W/AUTO [id number] 12:33:00 Test Item Value Reference Range Interpretation Comments WHITE BLOOD CELL (test code = 8.4 x10 3/uL 4.5-11.0 N WBC) RED BLOOD CELL (test code = 3.88 x10 6/uL 3.54-5.02 N RBC) HEMOGLOBIN (test code = HGB) 9.2 g/dL 11.0-15.0 L HEMATOCRIT (test code = HCT) 31.9 % 33.0-45.0 L MEAN CELL VOLUME (test code = 82.2 fL 81.0-99.0 N MCV) MEAN CELL HGB (test code = MCH) 23.7 pg 27.0-33.0 L MEAN CELL HGB CONCETRATION 28.8 g/dL 33.0-37.0 L (test code = MCHC) RED CELL DISTRIBUTION WIDTH CV 16.4 % 11.5-14.5 H (test code = RDW) RED CELL DISTRIBUTION WIDTH SD 49.8 fL 37.0-54.0 N (test code = RDW-SD) PLATELET COUNT (test code = 277 x10 3/uL 150-400 N PLT) MEAN PLATELET VOLUME (test code 9.5 fL 7.0-9.0 H = MPV) NEUTROPHIL % (test code = NT%) 75.4 % 56.0-77.0 N IMMATURE GRANULOCYTE % (test 0.2 % 0.0-2.0 N code = IG%) LYMPHOCYTE % (test code = LY%) 14.2 % 14.0-32.0 N MONOCYTE % (test code = MO%) 9.1 % 4.8-9.0 H EOSINOPHIL % (test code = EO%) 0.0 % 0.3-3.7 L BASOPHIL % (test code = BA%) 1.1 % 0.0-2.0 N NUCLEATED RBC % (test code = 0.0 % 0-0 N NRBC%) NEUTROPHIL # (test code = NT#) 6.33 x10 3/uL 2.0-7.6 N IMMATURE GRANULOCYTE # (test 0.02 x10 3/uL 0.00-0.03 N code = IG#) LYMPHOCYTE # (test code = LY#) 1.19 x10 3/uL 1.0-3.8 N MONOCYTE # (test code = MO#) 0.76 x10 3/uL 0.1-0.8 N EOSINOPHIL # (test code = EO#) 0.00 x10 3/uL 0.0-0.2 N BASOPHIL # (test code = BA#) 0.09 x10 3/uL 0.0-0.2 N NUCLEATED RBC # (test code = 0.00 x10 3/uL 0.0-0.1 N NRBC#) MANUAL DIFF REQUIRED (test code NO = MDIFF) [id number] 08:53:00 Test Item Value Reference Range Interpretation Comments ACT-ISTAT (test code 148 SEC 74-137 H Perform ed 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 = ACTI) 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 [facility] BASIC METABOLIC [id number] 07:56:00 Test Item Value Reference Range Interpretation Comments SODIUM (test code = NA) 141 mEq/L 134-147 N POTASSIUM (test code = 4.1 mEq/L 3.4-5.0 N K) CHLORIDE (test code = 102 mEq/L 100-108 N CL) CARBON DIOXIDE (test 30 mEq/l 21-33 N code = CO2) ANION GAP (test code = 13 0-20 N GAP) GLUCOSE (test code = 124 mg/dL 70-110 H GLU) BLOOD UREA NITROGEN 15 mg/dL 7-18 N (test code = BUN) GLOMERULAR FILTRATION 39.7 70-80 L Units of measure = RATE (test code = GFR) ml/mi n/1.73 m2 CREATININE (test code = 1.3 mg/dL 0.6-1.3 N CREAT) CALCIUM (test code = 8.7 mg/dL 8.0-10.5 N CA) CBC W/AUTO [id number] 06:58:00 Test Item Value Reference Range Interpretation Comments WHITE BLOOD CELL (test code = 6.5 x10 3/uL 4.5-11.0 N WBC) RED BLOOD CELL (test code = 3.69 x10 6/uL 3.54-5.02 N RBC) HEMOGLOBIN (test code = HGB) 9.2 g/dL 11.0-15.0 L HEMATOCRIT (test code = HCT) 30.9 % 33.0-45.0 L MEAN CELL VOLUME (test code = 83.7 fL 81.0-99.0 N MCV) MEAN CELL HGB (test code = MCH) 24.9 pg 27.0-33.0 L MEAN CELL HGB CONCETRATION 29.8 g/dL 33.0-37.0 L (test code = MCHC) RED CELL DISTRIBUTION WIDTH CV 16.5 % 11.5-14.5 H (test code = RDW) PLATELET COUNT (test code = 302 x10 3/uL 150-400 N PLT) NEUTROPHIL % (test code = NT%) 86.9 % 56.0-77.0 H LYMPHOCYTE % (test code = LY%) 9.2 % 14.0-32.0 L NEUTROPHIL # (test code = NT#) 5.69 x10 3/uL 2.0-7.6 N LYMPHOCYTE # (test code = LY#) 0.60 x10 3/uL 1.0-3.8 L MANUAL DIFF REQUIRED (test code NO = MDIFF) RED CELL DISTRIBUTION WIDTH SD 50.8 fL 37.0-54.0 N (test code = RDW-SD) MEAN PLATELET VOLUME (test code 10.2 fL 7.0-9.0 H = MPV) IMMATURE GRANULOCYTE % (test 0.3 % 0.0-2.0 N code = IG%) MONOCYTE % (test code = MO%) 3.4 % 4.8-9.0 L EOSINOPHIL % (test code = EO%) 0.0 % 0.3-3.7 L BASOPHIL % (test code = BA%) 0.2 % 0.0-2.0 N NUCLEATED RBC % (test code = 0.0 % 0-0 N NRBC%) IMMATURE GRANULOCYTE # (test 0.02 x10 3/uL 0.00-0.03 N code = IG#) MONOCYTE # (test code = MO#) 0.22 x10 3/uL 0.1-0.8 N EOSINOPHIL # (test code = EO#) 0.00 x10 3/uL 0.0-0.2 N BASOPHIL # (test code = BA#) 0.01 x10 3/uL 0.0-0.2 N NUCLEATED RBC # (test code = 0.00 x10 3/uL 0.0-0.1 N NRBC#) [id number] 13:45:00 Test Item Value Reference Range Interpretation Comments ACT-ISTAT (test code 261 SEC 74-137 H Perform ed 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 = ACTI) 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 [facility] - XR CHEST 1 [id number] 00:00:00 [facility] : 1945 Sex: F FAX: Jayy Jefferson MD [phone] [place]: St: ADM FAX: Ortiz Glasgow MD [phone] FAX: Alan Toussaint [phone] Name: EDUARDO LA [facility] : 1945 Age/S: 76/F [address] [place] [address] Blvd Unit #: [id number] Loc: [place] [address] Phys: Alan Toussaint Acct: [id number] Dis Date: Status: ADM IN PHONE #: [phone] Exam Date: 11/20/2021 1551 FAX #: [phone] Reason: WATCHMAN EXAMS: CPT CODE: [id number] XR CHEST 1 V 45306 PROCEDURE INFORMATION: Exam: XR Chest Exam date and time: 11/20/2021 3:38 PM Age: 76 years old Clinical indication: Device placement; Other: Watchman TECHNIQUE: Imaging protocol: XR of the chest. Views: 1 view. COMPARISON: CR XR CHEST 2 V 11/18/2021 3:54 PM FINDINGS: Lungs: See "Pleural spaces" finding. Pleural spaces: No gross active pleural, parenchymal, or mediastinal abnormalities noted. Heart/Mediastinum: See "Pleural spaces" finding. Bones/joints: The visualized bones of the thorax are grossly unremarkable. The patient has had an anterior cervical fusion in the lower cervical spine. Soft tissues: No acute abnormality in the chest. IMPRESSION: No acute abnormality in the chest. No radiopaquedevice is seen in the chest. at 1604 Reported and signed by: Brooke Beaver M.D. CC: Jayy Linda MD; Ortiz Domingo MD; Alan Toussaint Technologist: RT Alexis(R) Trnscrd Date/Time/By: 11/20/2021 (1256) : By: [email or web address] Orig Print D/T: S: 11/20/2021 (2001) PAGE 1 Signed ReportBASIC METABOLIC [id number] 15:14:00 Test Item Value Reference Range Interpretation Comments SODIUM (test code = NA) 144 mEq/L 134-147 N POTASSIUM (test code = 4.2 mEq/L 3.4-5.0 N K) CHLORIDE (test code = 104 mEq/L 100-108 N CL) CARBON DIOXIDE (test 31 mEq/l 21-33 N code = CO2) ANION GAP (test code = 13 0-20 N GAP) GLUCOSE (test code = 113 mg/dL 70-110 H GLU) BLOOD UREA NITROGEN 13 mg/dL 7-18 N (test code = BUN) GLOMERULAR FILTRATION 39.7 70-80 L Units of measure = RATE (test code = GFR) ml/mi n/1.73 m2 CREATININE (test code = 1.3 mg/dL 0.6-1.3 N CREAT) CALCIUM (test code = 8.3 mg/dL 8.0-10.5 N CA) [id number] 15:14:00 Test Item Value Reference Range Interpretation Comments PREALBUMIN (test code = PREALB) 12.4 mg/dL 16.0-40.0 L PROTHROMBIN [id number] 15:06:00 Test Item Value Reference Range Interpretation Comments PROTHROMBIN TIME 21.7 SECONDS 9.3-12.9 H PATIENT (test code = PTP) INTERNATIONAL NORMAL 1.9 0.8-1.2 H TARGET RATIO (test code = INR BY IN DICATION INR) Indication INR1. Prophyl axis of venous thrombos is 2.0 - 3. 0 (orthopedic william carol), Prophylaxis of venous thrombos is (other than hig h-risk surgery), Violeta tment of Deep Vein Thrombosis/Pulm onary Embolism, Preve ntion of systemic emb olism - Tissue heart va lves, Acute Myocardia l Infarction (to prevent systemic embo lism), Valvular heart disease, Atri al Fibrillation, Bileaflet mecha nical valve in aortic position.2. Mec hanical prosthetic valv es (high risk), 2.5 - 3.5 Presence of Lupus Anticoagu lant or Antiphospholi pid Antibodies, Pre vention of systemic e mbolism - Acute Myocard ial Infarction (t o prevent recurre nt infarct). CBC W/AUTO [id number] 14:51:00 Test Item Value Reference Range Interpretation Comments WHITE BLOOD CELL (test code = 7.8 x10 3/uL 4.5-11.0 N WBC) RED BLOOD CELL (test code = 3.93 x10 6/uL 3.54-5.02 N RBC) HEMOGLOBIN (test code = HGB) 9.9 g/dL 11.0-15.0 L HEMATOCRIT (test code = HCT) 33.0 % 33.0-45.0 N MEAN CELL VOLUME (test code = 84.0 fL 81.0-99.0 N MCV) MEAN CELL HGB (test code = MCH) 25.2 pg 27.0-33.0 L MEAN CELL HGB CONCETRATION 30.0 g/dL 33.0-37.0 L (test code = MCHC) RED CELL DISTRIBUTION WIDTH CV 16.6 % 11.5-14.5 H (test code = RDW) PLATELET COUNT (test code = 308 x10 3/uL 150-400 N PLT) NEUTROPHIL % (test code = NT%) 68.6 % 56.0-77.0 N LYMPHOCYTE % (test code = LY%) 17.5 % 14.0-32.0 N NEUTROPHIL # (test code = NT#) 5.34 x10 3/uL 2.0-7.6 N LYMPHOCYTE # (test code = LY#) 1.36 x10 3/uL 1.0-3.8 N MANUAL DIFF REQUIRED (test code NO = MDIFF) RED CELL DISTRIBUTION WIDTH SD 51.4 fL 37.0-54.0 N (test code = RDW-SD) MEAN PLATELET VOLUME (test code 10.2 fL 7.0-9.0 H = MPV) IMMATURE GRANULOCYTE % (test 0.3 % 0.0-2.0 N code = IG%) MONOCYTE % (test code = MO%) 12.6 % 4.8-9.0 H EOSINOPHIL % (test code = EO%) 0.0 % 0.3-3.7 L BASOPHIL % (test code = BA%) 1.0 % 0.0-2.0 N NUCLEATED RBC % (test code = 0.0 % 0-0 N NRBC%) IMMATURE GRANULOCYTE # (test 0.02 x10 3/uL 0.00-0.03 N code = IG#) MONOCYTE # (test code = MO#) 0.98 x10 3/uL 0.1-0.8 H EOSINOPHIL # (test code = EO#) 0.00 x10 3/uL 0.0-0.2 N BASOPHIL # (test code = BA#) 0.08 x10 3/uL 0.0-0.2 N NUCLEATED RBC # (test code = 0.00 x10 3/uL 0.0-0.1 N NRBC#) - XR CHEST 2 [id number] 00:00:00 [facility] 1945 Sex: F FAX: Jayy Jefferson MD [phone] [place]: St: PRE FAX: Ortiz Glasgow MD [phone] Name: EDUARDO LA [facility] : 1945 Age/S: 76/F [address] [place] [address] Unit #: [id number] Loc: [place] [address] Phys: Ortiz Domingo MD Acct: [id number] Dis Date: Status: PRE [facility] [place] PHONE #: [phone] Exam Date: 11/18/2021 0968 FAX #: [phone] Reason: PREOP EXAMS: CPT CODE: [id number] XR CHEST 2 V 32835 PROCEDURE INFORMATION: Exam: XR Chest Exam date and time: 11/18/2021 3:54 PM Age: 76 years old Clinical indication: Other: Preop TECHNIQUE: Imaging protocol: XR of the chest. Views: 2 views. COMPARISON: No relevant prior studies available. The heart is normal in size. The thoracic aorta is mildly tortuous and contains atherosclerotic calcification. The lungs appear clear. The pulmonary vasculature is normal in caliber. No acute pleural space abnormalities are detected. IMPRESSION:1. No radiographic evidence of acute cardiopulmonary disease. SL: 131 at 7846 Reported and signed by: Saad Arboleda M.D. CC: Jayy Linda MD; Ortiz Domingo MD Technologist: RT Bayron(R) Trnscrd Date/Time/By: 11/18/2021 (1635) : By: [email or web address] Orig Print D/T: S: 11/18/2021 (7435) PAGE 1 Signed Report
[2022-01-31 17:51] LABS: Absolute Lymphocytes (CBC) 0.8 K/uL (0.7-4.9); Hematocrit 32.2 % (36.0-45.0); Lymphocytes % 8.4 % (15.3-44.8); MPV 7.3 fL (7.6-11.3); RBC Red Blood Cell Count 4.44 M/uL (3.86-4.86)
[2022-01-31 17:52] LABS: Protime INR 1.13
[2022-01-31 18:04] LABS: Albumin 3.1 g/dL (3.4-5.0); Bilirubin Direct 0.3 mg/dL (0-0.2); Bilirubin Total 0.6 mg/dL (0.2-1.0); Magnesium 1.7 mg/dL (1.8-2.4); Potassium 3.6 mmol/L (3.5-5.1); Protein, Total 8.4 g/dL (6.4-8.2)
--- NOTE | 2022-01-31 18:20 | RAD REPORT ---
EXAM DESCRIPTION: RAD - Chest Single View - 01/31/2022 5:54 pm CLINICAL HISTORY: SOB COMPARISON: Two view chest 01/30/2022, portable 11/07/2021 TECHNIQUE: AP portable chest image was obtained 01/31/2022 5:54 pm . FINDINGS: Extensive interstitial lung pattern noted without a focal consolidation or mass. Interstit ial pattern is similar or less pronounced compared to January 30 imaging. Lung pattern is more pronounced than seen on the November 07 study which is more likely the patient's baseline. Hilar regions are prominent but stable. Heart and vasculature are normal. No measurable pleural effus ion and no pneumothorax. No acute bony abnormality seen. No acute aortic findings suspected. IMPRESSION: Diffusely prominent interstitial pattern suspected to be a mild interstitial edema or in filtrate superimposed on chronic disease.
[2022-01-31 18:25] LABS: Troponin High Sensitivity 743.8 pg/mL (<58.9)
[2022-01-31] MEDS ORDERED: FUROSEMIDE 40 MG/4 ML VIAL ONE (18:37)
--- NOTE | 2022-01-31 19:13 | RAD REPORT ---
EXAM DESCRIPTION: US - Extremity Venous Uni Ltd - 01/31/2022 6:23 pm CLINICAL HISTORY: SWELLING COMPARISON: None. TECHNIQUE: Real-time sonographic evaluation of the right lower extremity deep venous systems was per formed. FINDINGS: Normal compressibility, flow augmentation, phasic flow and spontaneous flow are identified in the right lower extremity common femoral, superficial femoral, popliteal and posterior tibial vei ns. No intraluminal filling defects seen. IMPRESSION: No DVT in the right lower extremity.
[2022-01-31] MEDS ORDERED: ASPIRIN 81 MG CHEWABLE TABLET ONE (19:21)
[2022-01-31] MEDS ORDERED: ENOXAPARIN 80 MG/0.8 ML SQ ONE (19:22)
[2022-01-31] MEDS ORDERED: MAGNESIUM SULFATE 1 gm IVPB 1 GM/100 ML BAG IV ONE (19:22)
--- NOTE | 2022-01-31 19:27 | ER ---
Nurse's Notes [facility] Name: Neela Staton Age: 77 yrs Sex: Female : 1945 Arrival Date: 01/31/2022 Time: 15:58 Bed 6 Private MD: Diagnosis: Unspecified combined systolic (congestive) and diastolic (congestive) heart failure;Non ST elevation [place];Hypertensive heart disease with heart failure Presentation: 01/31 16:14 Chief complaint: Patient states: "I've been having trouble breathing, especially when ss I'm laying down. I had an XRAY yesterday and they told me I have fluid on my lungs. Dr. Linda told me to come in if it didn't get any better.". Coronavirus screen: Client denies travel out of the [place] in the last 14 days. Ebola Screen: Patient denies exposure to infectious person. Patient denies travel to an Ebola-affected area in the 21 days before illness onset. Initial Sepsis Screen: Does the patient meet any 2 criteria? No. Patient's initial sepsis screen is negative. Does the patient have a suspected source of infection? No. Patient's initial sepsis screen is negative. Risk Assessment: Do you want to hurt yourself or someone else? Patient reports no desire to harm self or others. Onset of symptoms was January 27, 2022. 16:14 Method Of Arrival: Ambulatory 16:14 Acuity: BETHANY 2 ss Historical: - Allergies: 16:16 Codeine; ss - PMHx: 16:16 Atrial fibrillation; GERD; Depression; High Cholesterol; Hypertensive disorder; ss Hypothyroidism; - PSHx: 18:00 Right leg stent; aa5 - Immunization history:: Client reports receiving the 2nd dose of the Covid vaccine. - Social history:: Smoking status: Patient denies any tobacco usage or history of. Screenin:00 Abuse screen: Denies threats or abuse. Nutritional screening: No deficits noted. aa5 Tuberculosis screening: No symptoms or risk factors identified. Fall Risk IV access (20 points). Assessment: 18:00 General: Appears comfortable, Behavior is calm, cooperative. Pain: Complains of pain in aa5 head Quality of pain is described as aching. Neuro: Level of Consciousness is awake, alert, obeys commands, Oriented to person, place, time, situation. Cardiovascular: Heart tones S1 S2 present Edema is 2+ to right lower extremity, pt reports swelling x 3-4 days ago, reports right leg stent placed back in October 2021. Rhythm is atrial fibrillation. Respiratory: Reports shortness of breath at rest on exertion since 3-4 days ago. Airway is patent Respiratory effort is even, unlabored, Respiratory pattern is regular, symmetrical, tachypnea Breath sounds with crackles in left posterior lower lobe and right posterior lower lobe. GI: Abdomen is round non-distended, Bowel sounds present X 4 quads. Abd is soft and non tender X 4 quads. : Pt reports urinary incontinence. EENT: No signs and/or symptoms were reported regarding the EENT system. Derm: Skin is pink, warm \\T\\ dry. Musculoskeletal: Range of motion: intact in all extremities. 18:02 Reassessment: Awaiting US. aa5 18:06 Reassessment: US at bedside. . aa5 18:40 Reassessment: Purewick female external catheter placed to suction.. aa5 18:40 Reassessment: Patient is alert, oriented x 3, equal unlabored respirations, skin aa5 warm/dry/pink. 19:50 General: Appears in no apparent distress. Behavior is cooperative. Pain: Denies pain. sm5 Neuro: No deficits noted. Level of Consciousness is awake, alert, obeys commands, Oriented to person, place, time, situation. Cardiovascular: Capillary refill < 3 seconds Patient's skin is warm and dry. Respiratory: Airway is patent Trachea midline Respiratory effort is even, unlabored. 20:34 Reassessment: attempted report to floor, nurse unavailable. sm5 21:30 Reassessment: No changes from previously documented assessment. Patient and/or family sm5 updated on plan of care and expected duration. Pain level reassessed. Patient is alert, oriented x 3, equal unlabored respirations, skin warm/dry/pink. 22:32 Reassessment: No changes from previously documented assessment. Patient and/or family sm5 updated on plan of care and expected duration. Pain level reassessed. Vital Signs: 16:14 Pulse 82; Resp 15; Temp 98.6(TE); Pulse Ox 99% on R/A; Weight 73.03 kg; Height 5 ft. 7 ss in. (170.18 cm); Pain 0/10; 16:17 BP 203 / 114; ss 18:00 BP 216 / 89; Pulse 79; Resp 25 S; Pulse Ox 99% on R/A; aa5 18:30 BP 214 / 80; Pulse 80; Resp 22 S; Pulse Ox 98% on R/A; aa5 19:40 BP 158 / 119; Pulse 86; Resp 20; Pulse Ox 97% on R/A; sm5 21:07 BP 187 / 89; Pulse 79; Resp 17; Pulse Ox 95% on R/A; sm5 16:14 Body Mass Index 25.22 (73.03 kg, 170.18 cm) ED Course: 15:58 Patient arrived in ED. ds1 16:14 Unruly Urias PA is PHCP. cp 16:14 Kapil Burnett MD is Attending Physician. cp 16:16 Triage completed. ss 16:16 Arm band placed on right wrist. ss 16:55 Unruly Urias PA is PHCP. cp 16:55 Kapil Burnett MD is Attending Physician. cp 17:43 Inserted saline lock: 20 gauge in left antecubital area, using aseptic technique. Blood tp1 collected. 17:44 Bed in low position. Call light in reach. tp1 17:46 Basic Metabolic Panel Sent. mb7 17:46 CBC with Diff Sent. mb7 17:46 PT-INR Sent. mb7 17:46 Troponin HS Sent. mb7 17:46 Magnesium Sent. mb7 17:46 NT PRO-BNP Sent. mb7 17:46 LFT's Sent. mb7 17:50 Parisa Cerda RN is Primary Nurse. aa5 17:56 XRAY Chest (1 view) In Process Unspecified. EDMS 17:56 EKG done, by ED staff, reviewed by Unruly WALDEN. mb7 18:00 Client placed on continuous cardiac and pulse oximetry monitoring. NIBP monitoring aa5 applied. 18:00 Patient has correct armband on for positive identification. Placed in gown. Bed in low aa5 position. Call light in reach. Side rails up X 1. Adult w/ patient. 18:25 US Extremity Venous Unilateral Ltd In Process Unspecified. EDMS 18:53 No provider procedures requiring assistance completed. Patient maintains SpO2 aa5 saturation greater than 95% on room air. 19:05 Report given to SUHAIL Renae. aa5 19:24 James Linda MD is Hospitalizing Provider. cp 19:48 COVID-19 SARS RT PCR (Document "Date of Onset" if Symptomatic) Sent. sm5 22:32 Patient admitted, IV remains in place. sm5 Administered Medications: 18:48 Drug: Lasix (furosemide) 40 mg Route: IVP; Site: left antecubital; aa5 22:20 Follow up: Response: No adverse reaction 5 19:26 Drug: Aspirin Chewable Tablet 324 mg Route: PO; sm5 22:20 Follow up: Response: No adverse reaction 5 19:26 Drug: Magnesium Sulfate 1 grams Route: IVPB; Infused Over: 1 hrs; Site: left sm5 antecubital; 20:30 Follow up: IV Status: Completed infusion; IV Intake: 100ml 5 19:26 Drug: Lovenox (enoxaparin) 1 mg/kg Route: Sub-Q; Site: right lower abdomen; sm5 22:19 Follow up: Response: No adverse reaction 5 19:48 Not Given (Hemodynamic Parameters): hydrALAZINE 10 mg IVP once 5 19:48 Drug: carvedilol 25 mg Route: PO; sm5 22:19 Follow up: Response: No adverse reaction 5 Medication: 21:05 VIS not applicable for this client. sm5 Intake: 20:30 IV: 100ml; Total: 100ml. 5 Output: 19:49 Urine: 950ml (Voided); Total: 950ml. 5 Outcome: 19:26 Decision to Hospitalize by Provider. cp 21:30 Admitted to Med/surg accompanied by nurse, via stretcher, room 206, Report called to domingo Wu RN 22:32 Condition: stable sm5 22:32 Instructed on the need for admit. 22:33 Patient left the ED. 5 Signatures: Dispatcher [employer] EDMS Alicia Brown RN RN Blanca Rasmussen ds1 Parisa Cerda RN RN aa5 Mimi Dupont RN RN ss Unruly Urias PA PA cp Parker, Tiffany tp1 Isabela Barnes mb7 Batool Flores RN RN sm5 Corrections: (The following items were deleted from the chart) 16:17 16:14 Acuity: BETHANY 3 ss ss 19:24 18:00 Respiratory: Reports shortness of breath at rest on exertion since 3-4 days ago. aa5 Airway is patent Respiratory effort is even, unlabored, Respiratory pattern is regular, symmetrical, Breath sounds with crackles in left posterior lower lobe and right posterior lower lobe aa5
--- NOTE | 2022-01-31 19:27 | EDPHYS ---
Physician Documentation [facility] Name: Neela Staton Age: 77 yrs Sex: Female : 1945 Arrival Date: 01/31/2022 Time: 15:58 Bed 6 Private MD: ED Physician Kapil Burnett HPI: 01/31 17:27 This 77 yrs old Female presents to ER via Ambulatory with complaints of Shortness of cp Breath, Abnormal Radiology results. 17:27 The patient has shortness of breath when lying flat. Onset: The symptoms/episode cp began/occurred 5 day(s) ago. Duration: The symptoms are continuous, and are steadily getting worse. Associated signs and symptoms: Pertinent positives: swelling of right leg. Historical: - Allergies: 16:16 Codeine; ss - PMHx: 16:16 Atrial fibrillation; GERD; Depression; High Cholesterol; Hypertensive disorder; ss Hypothyroidism; - PSHx: 18:00 Right leg stent; aa5 - Immunization history:: Client reports receiving the 2nd dose of the Covid vaccine. - Social history:: Smoking status: Patient denies any tobacco usage or history of. ROS: 17:30 Constitutional: Negative for body aches, chills, fever, poor PO intake. cp 17:30 Eyes: Negative for injury, pain, redness, and discharge. cp 17:30 ENT: Negative for drainage from ear(s), ear pain, sore throat, difficulty swallowing, difficulty handling secretions. 17:30 Cardiovascular: Positive for edema, Negative for chest pain, palpitations. 17:30 Respiratory: Positive for orthopnea, Negative for cough, wheezing. 17:30 Abdomen/GI: Negative for abdominal pain, nausea, vomiting, and diarrhea. 17:30 Neuro: Negative for altered mental status, headache, syncope, weakness. 17:30 All other systems are negative. Exam: 17:35 Constitutional: The patient appears in no acute distress, alert, awake, cp non-diaphoretic, non-toxic, well developed, well nourished. 17:35 Head/Face: Normocephalic, atraumatic. cp 17:35 Eyes: Periorbital structures: appear normal, Conjunctiva: normal, no exudate, no injection, Sclera: no appreciated abnormality, Lids and lashes: appear normal, bilaterally. 17:35 ENT: External ear(s): are unremarkable, Nose: is normal, Mouth: Lips: moist, Oral mucosa: moist, Posterior pharynx: Airway: no evidence of obstruction, patent. 17:35 Neck: ROM/movement: is normal, is supple, without pain, no range of motions limitations. 17:35 Chest/axilla: Inspection: normal, Palpation: is normal, no crepitus, no tenderness. 17:35 Cardiovascular: Rate: normal, Rhythm: regular, Edema: ankle edema, that is mild, JVD: is not appreciated. 17:35 Respiratory: the patient does not display signs of respiratory distress, Respirations: normal, no use of accessory muscles, no retractions, labored breathing, is not present, Breath sounds: rhonchi, that are mild, are heard diffusely, stridor, is not appreciated, wheezing: is not appreciated. 17:35 Abdomen/GI: Inspection: abdomen appears normal, Palpation: abdomen is soft and non-tender, in all quadrants. 17:35 Back: pain, is absent, ROM is normal. 17:35 Skin: cellulitis, is not appreciated, no rash present. 17:35 Neuro: Orientation: to person, place \\T\\ time. Mentation: is normal, Motor: moves all fours, strength is normal, Sensation: no obvious gross deficits. 17:53 ECG was reviewed by the Attending Physician. Vital Signs: 16:14 Pulse 82; Resp 15; Temp 98.6(TE); Pulse Ox 99% on R/A; Weight 73.03 kg; Height 5 ft. 7 ss in. (170.18 cm); Pain 0/10; 16:17 BP 203 / 114; ss 18:00 BP 216 / 89; Pulse 79; Resp 25 S; Pulse Ox 99% on R/A; aa5 18:30 BP 214 / 80; Pulse 80; Resp 22 S; Pulse Ox 98% on R/A; aa5 19:40 BP 158 / 119; Pulse 86; Resp 20; Pulse Ox 97% on R/A; sm5 21:07 BP 187 / 89; Pulse 79; Resp 17; Pulse Ox 95% on R/A; sm5 16:14 Body Mass Index 25.22 (73.03 kg, 170.18 cm) MDM: 17:41 Patient medically screened. cp 18:00 Differential diagnosis: CHF exacerbation, Chronic Obstructive Pulmonary Disease cp pneumonia, Pneumothorax pulmonary edema, Pulmonary Embolism Sepsis Unstable Angina. 19:25 Data reviewed: vital signs, nurses notes, lab test result(s), EKG, radiologic studies, cp plain films, ultrasound. 01/31 17:30 Order name: Basic Metabolic Panel; Complete Time: 18:33 cp 01/31 18:33 Interpretation: Normal except: NA 135; GFR 61. 01/31 17:30 Order name: CBC with Diff; Complete Time: 18:33 cp 01/31 18:33 Interpretation: Normal except: HGB 9.8; HCT 32.2; MCV 72.6; MCH 22.1; MCHC 30.4; PLT cp 411; RDW 19.7; MPV 7.3; SARAH% 82.2; LYM% 8.4. 01/31 17:30 Order name: LFT's; Complete Time: 18:33 cp 01/31 18:34 Interpretation: Normal except: AST 14; ALK 175; BILID 0.3; TP 8.4; ALB 3.1; GLOB 5.3; cp A/G 0.6. 01/31 17:30 Order name: Magnesium; Complete Time: 18:33 cp 01/31 18:35 Interpretation: Abnormal: MG 1.7. 01/31 17:30 Order name: NT PRO-BNP; Complete Time: 18:33 cp 01/31 18:35 Interpretation: NT PRO-BNP 9299; Reviewed. 01/31 17:30 Order name: PT-INR; Complete Time: 18:33 cp 01/31 17:30 Order name: Troponin HS; Complete Time: 18:33 cp 01/31 18:35 Interpretation: Abnormal: Troponin HS 743.8. 01/31 19:36 Order name: COVID-19 SARS RT PCR (Document "Date of Onset" if Symptomatic) sm5 01/31 19:52 Order name: Basic Metabolic Panel [facility] 01/31 19:52 Order name: Basic Metabolic Panel [facility] 01/31 19:52 Order name: CBC with Automated Diff [facility] 01/31 19:52 Order name: CBC with Automated Diff [facility] 01/31 19:52 Order name: NT PRO-BNP [facility] 01/31 19:52 Order name: NT PRO-BNP [facility] 01/31 17:30 Order name: XRAY Chest (1 view); Complete Time: 18:33 cp 01/31 17:30 Order name: EKG; Complete Time: 17:30 cp 01/31 17:30 Order name: Cardiac monitoring; Complete Time: 17:46 cp 01/31 17:30 Order name: EKG - Nurse/Tech; Complete Time: 17:50 cp 01/31 17:30 Order name: IV Saline Lock; Complete Time: 17:44 cp 01/31 17:30 Order name: Labs collected and sent; Complete Time: 17:44 cp 01/31 17:30 Order name: US Extremity Venous Unilateral Ltd; Complete Time: 19:23 cp 01/31 19:23 Interpretation: Report reviewed. cp 01/31 19:52 Order name: Low Sodium EDMS 01/31 19:52 Order name: EKG Electrocardiogram EDMS 01/31 19:52 Order name: EKG Electrocardiogram EDMS 01/31 17:30 Order name: O2 Per Protocol; Complete Time: 17:44 cp 01/31 17:30 Order name: O2 Sat Monitoring; Complete Time: 17:46 cp EC:53 Rate is 78 beats/min. Rhythm is irregular. QRS interval is normal. QT interval is cp normal. Interpreted by me. Reviewed by me. Administered Medications: 18:48 Drug: Lasix (furosemide) 40 mg Route: IVP; Site: left antecubital; aa5 22:20 Follow up: Response: No adverse reaction sm5 19:26 Drug: Aspirin Chewable Tablet 324 mg Route: PO; sm5 22:20 Follow up: Response: No adverse reaction 5 19:26 Drug: Magnesium Sulfate 1 grams Route: IVPB; Infused Over: 1 hrs; Site: left sm5 antecubital; 20:30 Follow up: IV Status: Completed infusion; IV Intake: 100ml sm5 19:26 Drug: Lovenox (enoxaparin) 1 mg/kg Route: Sub-Q; Site: right lower abdomen; sm5 22:19 Follow up: Response: No adverse reaction 5 19:48 Not Given (Hemodynamic Parameters): hydrALAZINE 10 mg IVP once sm5 19:48 Drug: carvedilol 25 mg Route: PO; sm5 22:19 Follow up: Response: No adverse reaction 5 Disposition Summary: 01/31/22 19:26 Hospitalization Ordered Hospitalization Status: Inpatient Admission cp Provider: James Linda cp Location: Telemetry/MedSurg (Inpatient) cp Condition: Stable cp Problem: new cp Symptoms: have improved cp Bed/Room Type: Standard cp Room Assignment: 206(01/31/22 20:47) mw Diagnosis - Unspecified combined systolic (congestive) and diastolic (congestive) heart failure cp - Non ST elevation [place] cp - Hypertensive heart disease with heart failure cp Forms: - Medication Reconciliation Form cp - SBAR form cp Signatures: Dispatcher [employer] EDAlicia Conn RN RN mw Calderon, Audri, RN RN aa5 Mimi Dupont RN RN ss Page, Corey, IRAM PA Batool Tian RN RN sm5 Corrections: (The following items were deleted from the chart) 20:47 19:26 cp mw
[2022-01-31] MEDS ORDERED: ONDANSETRON 4 MG/2 ML VIAL IV PRN (19:44)
[2022-01-31] MEDS ORDERED: carvediloL 6.25 MG TAB ONE (19:45)
[2022-01-31 23:47] VITALS: BMI 25.2
[2022-01-31] MEDS: ENOXAPARIN 80 MG/0.8 ML SQ SCH (23:55)
[2022-02-01] MEDS: PANTOPRAZOLE 40MG TABLET PO SCH ×2 (00:32→20:16)
[2022-02-01] MEDS: CODEINE 30MG/APAP 300MG TAB PO PRN ×3 (00:33→22:45)
[2022-02-01] MEDS: TICAGRELOR 90 MG TABLET PO SCH ×3 (00:33→20:14)
[2022-02-01] MEDS: DULOXETINE 30 MG CAP PO SCH ×3 (00:33→20:14)
[2022-02-01] MEDS: ALPRAZOLAM 0.25 MG TABLET PO PRN ×2 (00:33→20:19)
[2022-02-01] MEDS: MAGNESIUM OXIDE 400 MG TAB PO SCH ×3 (00:34→20:14)
[2022-02-01] MEDS: carvediloL 25 MG TAB PO SCH ×2 (00:35→08:50)
[2022-02-01 03:37] LABS: Absolute Lymphocytes (CBC) 0.9 K/uL (0.7-4.9); Lymphocytes % 10.9 % (15.3-44.8); MPV 7.2 fL (7.6-11.3); RBC Red Blood Cell Count 4.16 M/uL (3.86-4.86)
[2022-02-01 04:12] LABS: Potassium 3.2 mmol/L (3.5-5.1)
[2022-02-01] MEDS ORDERED: carvediloL 25 MG TAB PO SCH (06:00)
[2022-02-01] MEDS: AMLODIPINE 10 MG TAB PO SCH (08:49)
[2022-02-01] MEDS: ENOXAPARIN 80 MG/0.8 ML SQ SCH ×2 (08:51→20:15)
[2022-02-01] MEDS: FUROSEMIDE 40 MG/4 ML VIAL IV SCH ×2 (08:51→16:18)
[2022-02-01] MEDS ORDERED: POTASSIUM CL SA 10 MEQ TAB PO SCH (09:00)
[2022-02-01] MEDS ORDERED: DIGOXIN 0.125 MG TABLET PO SCH (09:00)
[2022-02-01] MEDS ORDERED: POTASSIUM CL SA 10 MEQ TAB PO ONE ×2 (10:51→20:00)
--- NOTE | 2022-02-01 11:07 | EKG ---
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
[2022-02-01] MEDS ORDERED: lisinopriL 10 MG TAB PO ONE (14:05)
[2022-02-01] MEDS: lisinopriL 10 MG TAB PO SCH (20:14)
[2022-02-01] MEDS: ATORVASTATIN 40 MG TAB PO SCH (20:15)
[2022-02-01] MEDS ORDERED: ATORVASTATIN 40 MG TAB PO SCH (21:00)
[2022-02-02] MEDS: cloNIDine HCL 0.1 MG TAB PO PRN (01:34)
[2022-02-02 04:08] LABS: Absolute Lymphocytes (CBC) 1.1 K/uL (0.7-4.9); Hematocrit 28.2 % (36.0-45.0); Lymphocytes % 13.9 % (15.3-44.8); MPV 7.2 fL (7.6-11.3); RBC Red Blood Cell Count 3.88 M/uL (3.86-4.86)
[2022-02-02 04:25] LABS: Magnesium 1.7 mg/dL (1.8-2.4); Potassium 3.9 mmol/L (3.5-5.1)
[2022-02-02] MEDS: ENOXAPARIN 80 MG/0.8 ML SQ SCH (09:00)
[2022-02-02] MEDS ORDERED: POTASSIUM CL SA 10 MEQ TAB PO ONE (09:00)
[2022-02-02] MEDS: AMLODIPINE 10 MG TAB PO SCH (09:22)
[2022-02-02] MEDS: TICAGRELOR 90 MG TABLET PO SCH ×2 (09:22→20:07)
[2022-02-02] MEDS: lisinopriL 10 MG TAB PO SCH ×2 (09:23→20:07)
[2022-02-02] MEDS: FUROSEMIDE 40 MG/4 ML VIAL IV SCH ×2 (09:23→16:44)
[2022-02-02] MEDS: MAGNESIUM OXIDE 400 MG TAB PO SCH ×2 (09:23→20:07)
[2022-02-02] MEDS: DULOXETINE 30 MG CAP PO SCH ×2 (09:23→20:07)
--- NOTE | 2022-02-02 09:27 | RAD REPORT ---
EXAM DESCRIPTION: RAD - Chest Pa And Lat (2 Views) - 02/02/2022 9:11 am CLINICAL HISTORY: CHF COMPARISON: Portable 01/31/2022, two view chest 01/30/2022 TECHNIQUE: Frontal and lateral views of the chest were obtained. FINDINGS: The lungs are fibrotic with diffusely prominent interstitial pattern showing improvement f rom prior day imaging. Heart size is upper normal. Upper lobe vasculature within normal limits. Trac hea is in midline. No pleural effusion or pneumothorax seen. No acute bony finding noted. No aortic abnormality. IMPRESSION: Interstitial edema/ infiltrate pattern shows slight improvement from prior day imaging.
[2022-02-02] MEDS: ATORVASTATIN 40 MG TAB PO SCH (20:06)
[2022-02-02] MEDS: PANTOPRAZOLE 40MG TABLET PO SCH (20:06)
--- NOTE | 2022-02-02 20:06 | PN ---
Ms. Staton is 77. Admitted on 01/31/[address] Linda with non-STEMI. Overnight, blood pressure is improved to 180/80. She is still in atrial fibrillation at a rate of 71, O2 saturation 96% on ro om air, mildly anemic at 8.9. Her creatinine is 1.0. Her last troponin was 675, which has decreased . She is presently on Xanax, amlodipine, digoxin, Lovenox, Lasix. She is on carvedilol. She is on clonidine and lisinopril. We can probably still afford increasing her lisinopril. She is on maximum dose of carvedilol. Again, consider hydralazine and/or Procardia for her blood pressure. Hold Love nox, plan for catheterization in the morning. RADHA/STEPHANI Voice ID: [id number] Report ID: [id number]
[2022-02-02] MEDS: ALPRAZOLAM 0.25 MG TABLET PO PRN (20:10)
--- NOTE | 2022-02-02 20:36 | CON ---
Date of Consultation: 02/01/2022 Reason For Consultation: Non-STEMI. History Of Present Illness: Ms. Staton is a 77-year-old woman. Has had a history of coronary a rtery disease. She is status post LAD and circumflex stents recently. She is known to have 100% SFA bilaterally. She has a history of atrial fibrillation, depression, hypertension, gastroesophageal r eflux, and hypothyroidism. Came in with shortness of breath, was found to have an elevated troponin of 743.8. She was hypertensive at 214/80. Her BNP is 9299. She had a venous Doppler that was negat kayley. Chest x-ray shows chronic interstitial changes. Denied any nausea, vomiting, diaphoresis, PND, orthopnea, pedal edema, palpitation, or syncope. Denied any fever or chills. Past Medical History: As stated above. Allergies: SHE IS ALLERGIC TO CODEINE. Review of Systems: Negative. Social History: Negative. Family History: Negative. Medications: Include Xanax, aspirin, Lipitor, Norvasc, Coreg, Neurontin, Lasix, Synthroid, Cymbalta, Brilinta, and inhalers. Physical Examination: Vital Signs: Stable, although she was in atrial fibrillation which is new, rate controlled. HEENT: Negative. Neck: Supple without any bruit, lymphadenopathy, JVD, or thyromegaly. Chest: Clear to auscultation and percussion. Cardiac: Revealed atrial fibrillation. No murmurs, gallops, or rubs. Abdomen: Benign. Extremities: Revealed no clubbing, cyanosis, or edema. Diagnostic Data: As stated earlier. Impression And Plan: 1.History of coronary artery disease, status post LAD and circumflex stent with new onset shortness of breath and positive troponin. We will plan for heart catheterization in the near future. The pat ient understands the risk and the benefits of the procedure and she agreed to proceed. 2.Peripheral arterial disease. I think she already had an SFA stent on the right. 3.Atrial fibrillation. I believe she has had a Watchman and anticoagulation. 4.Hypertension, very poorly controlled. We need to increase further dosages of her medications that she is taking already, which include Norvasc and Coreg and consider hydralazine and/or Procardia. H er other problems include gastroesophageal reflux disease, depression and hypothyroidism, all of them are stable. She is mildly anemic. Again, her main issues is a non-STEMI and we will plan for heart catheterization on the [address] Domingo. She understands the risk and the benefits of the procedure. She agreed to proceed. I will discuss the case further with Dr. Linda. RADHA/STEPHANI Voice ID: [id number] Report ID: [id number]
[2022-02-02] MEDS: CODEINE 30MG/APAP 300MG TAB PO PRN (22:14)
[2022-02-03] MEDS: CODEINE 30MG/APAP 300MG TAB PO PRN ×3 (05:45→21:44)
[2022-02-03] MEDS ORDERED: HEPA 1000U/500MLS 1,000 UNIT/500 ML BAG IV ONE (07:01)
--- NOTE | 2022-02-03 07:10 | PN ---
Date of Progress Note: 02/02/2022 Subjective: The patient was seen this morning for followup. No new complaints or problems reported by patient. She was feeling much better. Denies any chest pain. No shortness of breath. No nausea . No vomiting. Objective: Vital Signs: Reviewed. HEENT: Examination unremarkable. Lungs: Clear to auscultation. Not in respiratory distress. No rales. No wheezing. Heart: Sounds normal. Abdomen: Soft. Bowel sounds normal. No guarding, rigidity, tenderness, distention. Extremities: No leg edema. Laboratory Data: White count 8, hemoglobin 8.9, platelets 360. Sodium 138, potassium 3.9, chloride 104, bicarb 27, BUN 14, creatinine 1, glucose 100, magnesium 1.7, triglyceride , total chol esterol 82, LDL 29, HDL 28. Impression: 1.Non ST elevation myocardial infarction. 2.Coronary artery disease. 3.Hypertension. 4.Peripheral vascular disease. 5.Hyperlipidemia. 6.Hypomagnesemia. 7.Anemia. 8.Congestive heart failure. Plan: We will go ahead and continue current Lasix. Make adjustment on antihypertensive medication a s it becomes necessary. We will go ahead and continue current anticoagulation therapy. Replace magn esium per order and details were discussed with the patient's daughter who was at bedside. The patie nt is scheduled to have cardiac cath tomorrow and further plan of treatment will depend on findings of cardiac cath. LUIS/MODL Voice ID: [id number] Report ID: [id number]
[2022-02-03] MEDS ORDERED: LIDOCAINE 1% 20 ML MDV ONE (08:16)
[2022-02-03] MEDS: DULOXETINE 30 MG CAP PO SCH ×2 (08:35→21:36)
[2022-02-03] MEDS: MAGNESIUM OXIDE 400 MG TAB PO SCH ×2 (08:35→21:00)
[2022-02-03] MEDS: AMLODIPINE 10 MG TAB PO SCH (08:35)
[2022-02-03] MEDS: lisinopriL 10 MG TAB PO SCH ×2 (08:35→21:36)
[2022-02-03] MEDS: TICAGRELOR 90 MG TABLET PO SCH ×2 (08:36→21:36)
[2022-02-03] MEDS: FUROSEMIDE 40 MG/4 ML VIAL IV SCH ×2 (08:36→16:35)
[2022-02-03] MEDS ORDERED: NA CHLORIDE 0.9% 500 ML ONE (09:43)
[2022-02-03] MEDS ORDERED: NA CHLORIDE 0.9% 0 ML ONE (09:52)
[2022-02-03] MEDS ORDERED: MIDAZOLAM HCL 2 MG/2 ML INJ ONE (09:52)
[2022-02-03] MEDS ORDERED: ATROPINE SULF 1 MG/10 ML SYR IV ONE (09:52)
[2022-02-03] MEDS ORDERED: FENTANYL CITR 100 MCG/2 ML ONE (09:52)
--- NOTE | 2022-02-03 12:19 | HP ---
Date of Admission: 01/31/2022 Chief Complaint: Shortness of breath. History Of Present Illness: This is a very pleasant 77-year-old female patient, who came into emerge ncy room with complaints of shortness of breath and after she was evaluated in emergency room, she wa s admitted to the hospital. The patient came to see me recently on 01/29/2022 with few days history of paroxysmal nocturnal dyspnea and orthopnea and shortness of breath with any day to day activity an d she actually had run out of her furosemide and did not take it for almost a week and her blood pres sure was elevated, so we did send a refill for her furosemide, but also made adjustment on her antihy pertensive medication and day before yesterday, she contacted me and informed me that she was not imp roving and not getting any worse either, so I did inform her that if she feels like her symptoms get any worse, then she was to come to emergency room and she did come to ER yesterday because her shortn ess of breath was getting worse. After she was evaluated, she was admitted to the hospital with CHF exacerbation problem. Medications: Furosemide 40 mg daily, levothyroxine 100 mcg daily, digoxin 0.125 mg daily, amlodipine 10 mg daily which was just started 3 days ago, alprazolam 0.25 mg at bedtime, aspirin 81 mg daily, a torvastatin 40 mg daily at bedtime, carvedilol 25 mg 2 times a day, duloxetine 60 mg 2 times a day, e someprazole 40 mg daily, Dulera inhaler 2 puffs 2 times a day, gabapentin 100 mg 2 times a day, magne sium oxide 400 mg daily, Metamucil fiber gummies she takes 3 fiber gummies daily, Brilinta 90 mg 2 ti mes a day, potassium chloride 10 mEq daily, trazodone 100 mg daily at bedtime, tramadol 50 mg 2 times a day as needed for pain. Allergies: TO CODEINE CAUSING NAUSEA. Review of Systems: Cardiovascular: As mentioned above. All other systems reviewed and negative. Past Medical History: Significant for hypothyroidism, COPD, hypertension, hyperlipidemia, paroxysmal atrial fibrillation, coronary artery disease, aortic atherosclerosis, peripheral vascular disease, g astroesophageal reflux disease, kidney stone, osteoarthritis at multiple sites, anemia, anxiety, hypo kalemia, hypomagnesemia. Past Surgical History: Coronary artery angioplasty with stent placement on December 18, 2021, Watchman m edications procedure on november 20, 2021, right leg stent in May 2021, left leg stent in 2000, cho lecystectomy, hysterectomy, back surgery, cervical spine surgery. Family History: Father had heart disease. Mother had diabetes. Social History: Prior history of smoking, not at present time. Use of alcohol negative. Physical Examination: Vital Signs: Temperature 97.5, pulse 68, respiratory rate 16, blood pressure 187/86, oxygen saturati on 94% on room air. Height 5 feet 7 inches, weight 161 pounds. General: Awake, alert, oriented, not in distress. HEENT: Head atraumatic, normocephalic. Conjunctivae nonerythematous. Sclerae white. Mouth, no thr ush or edema noted. Ears/Nose, no mass, lesion, discharge noted. Neck: Supple. No JVD, lymph nodes, bruit, thyromegaly noted. Lungs: Presence of rales noted in lower lung yi. Not using any accessory muscles of respiration . Heart: Normal heart sounds, no murmur or gallop. Abdomen: Soft, bowel sounds normal. No guarding, rigidity, tenderness, mass, hepatosplenomegaly, dis tention, or bruit noted. Extremities: Bilateral grade 1 pedal edema. Skin: No rash, ulcer, cellulitis. Lymphatics: No lymph node enlargement in neck, supraclavicular, infraclavicular region. Neuro: No focal neurological deficit. Chest: Unremarkable. External Genitalia: Deferred. Rectal: Deferred. Laboratory Data: Yesterday; white count 9.4, hemoglobin 9.8, platelets 411. Today; white count 7.9, hemoglobin 9.5, platelets 362. Yesterday; sodium 135, potassium 3.6, chloride 102, bicarb 26, BUN 1 6, creatinine 0.96, glucose 98, magnesium 1.7, total bilirubin 0.6, AST 14, ALT 24, alkaline phosphat ase 175. First troponin level 743, second troponin 641, and last troponin 649. ProBNP 9299 yesterda y and today 6968. This morning; sodium 144, potassium 3.2, chloride 108, bicarb 26, BUN 16, creatini ne 0.92, glucose 103. COVID-19 test negative. Venous Doppler of right leg was negative for DVT and chest x-ray shows interstitial edema. Impression: 1.Acute pulmonary edema. 2.Congestive heart failure, diastolic, chronic, with acute exacerbation. 3.Anemia, chronic. 4.Hypokalemia. 5.Hypomagnesemia. 6.Coronary artery disease. 7.Non-ST segment elevation myocardial infarction. 8.Paroxysmal atrial fibrillation. 9.Peripheral vascular disease. 10.Aortic atherosclerosis. 11.Hyperlipidemia. 12.Hypertension, uncontrolled. 13.Chronic obstructive pulmonary disease. 14.Hypothyroidism. 15.Anxiety. Plan: We will go ahead and admit the patient to hospital for further evaluation and management of th is problem. The patient is appropriate for inpatient and is expected to spend 2 midnights in [facility]. We will go ahead and give her anticoagulation therapy per order, consult staff development nurse Dr. Kelley and details were discussed with him. Dr. Kelley is planning to do cardiac cath on her on Thursday to see any further cardiac intervention needs to be done or not depends on the cardiac cath results. W e will continue high dose statin therapy, continue antihypertensive medication. The patient has sign ificant sinus bradycardia with longest pause was 2.5 seconds this morning as reported by nursing staf f and with that, we will discontinue digoxin and carvedilol and if she still continues to have signif icant bradycardia with pause to qualify for pacemaker, then that should be considered in the future, but no such intervention is needed at this point. Continue her treatment for COPD. We will continue her other home medications including her treatment for her chronic health conditions. Details were discussed w geri her and her . LUIS/MODL Voice ID: [id number]
--- NOTE | 2022-02-03 15:25 | OP ---
Surgeon: Scott Kelley MD Philosophy Instructor: Ms. Jessica Adhikari. Brought to the [facility] today as an inpatient because of a non-STEMI, shortness of breath, congestive heart failure. History of CAD, and PAD. She was admitted to Dr. Linda on 01/31/2022. Procedure In Detail: In the [facility] today, she was brought into the [facility] as an inpatient. She was prepped and draped in routine sterile fashion. She underwent left heart catheterization, selecti ve coronary arteriogram, and a right common femoral artery angiogram. She was given Versed and fenta nyl for sedation, prepped and draped in routine sterile fashion. A 6-Guinean sheath introduced in the right common femoral artery successfully using 10 cc of lidocaine and Seldinger technique. I had di fficulty wiring the common femoral artery, so an angiogram was done showing an 80% common femoral art giovanni stenosis on the right. She had a patent stent in the SFA on the right. I had to use a Missy wi re to cross the lesion. César catheter 6-[place]inean left and right were used to cannulate the left natalya n and right main respectively. Her RCA had a 50% to 60% long RCA stenosis, but it is a small vessel, nondominant. Circumflex was very large with a circumflex stent that is patent. She was left domina nt. She had a 50% to 60% stenosis in the OM. The LAD appeared to be open with minimal diffuse plaqu ing throughout. There were no complications. Total conscious sedation was 45 minutes. Blood loss w as 5 mL. Hemostasis was obtained by holding pressure because of the severe stenosis in the right com mon femoral artery. I did not use a StarClose or Angio-Seal. Postoperative Diagnosis: Severe PAD. She will need a common femoral artery angioplasty and stent la ter. We will stage that. Moderate coronary artery disease. Continue medical therapy. The patient will remain at bedrest for 6 hours after the procedure. I would rather keep her overnigh t and sent her home in the morning, just observe her groin and her right lower extremity. Regarding her coronary arteries, we will continue aspirin, statin and Plavix for now. If she has any more pain down the road, we will reconsider doing a stent in the OM and may be the RCA. I will discuss the ca se further with Dr. Linda. NB/STEPHANI Voice ID: [id number] Report ID: [id number]
[2022-02-03] MEDS: cloNIDine HCL 0.1 MG TAB PO PRN (16:47)
[2022-02-03] MEDS ORDERED: MORPHINE 2 MG/ML SYR IV PRN (17:31)
--- NOTE | 2022-02-03 20:25 | PN ---
Date of Progress Note: 02/03/2022 Subjective: The patient was seen this morning for followup. No new complaints or problems reported by the patient. She was lying in bed, not in distress. No chest pain. No shortness of breath. Objective: Vital Signs: Reviewed. HEENT: Unremarkable. Lungs: Clear to auscultation. Heart: Sounds normal. Abdomen: Soft. Bowel sounds normal. No guarding, rigidity, tenderness, distention. Extremities: No leg edema. Impression: 1.Non-ST segment elevation myocardial infarction. 2.Coronary artery disease. 3.Peripheral vascular disease. 4.Hypertension. 5.Hyperlipidemia. Plan: The patient had a cardiac cath procedure done today. Dr. Kelley called me after the procedur e was done and informed me that the patient's stent that was placed this year by Dr. Domingo appears t o be patent, no evidence of any stenosis there. She has other area of coronary artery disease, but n o intervention was needed today for that. Dr. Kelley did detect some significant stenosis in the ar maine in her groin and he suggested that on an elective outpatient basis, she will need some further i ntervention for that and he will assist her when she comes back to his office for followup. The ivory ent was complaining of pain in her right foot and requested some medications for that as Tylenol was not helping, morphine was ordered and I will see her tomorrow for followup and possible discharge to go home tomorrow. LUIS/MODL Voice ID: [id number] Report ID: [id number]
[2022-02-03] MEDS ORDERED: ATORVASTATIN 80 MG TAB PO SCH (21:00)
[2022-02-03] MEDS: PANTOPRAZOLE 40MG TABLET PO SCH (21:37)
[2022-02-03] MEDS: ALPRAZOLAM 0.25 MG TABLET PO PRN (21:44)
[2022-02-04 03:59] VITALS: O2SAT 94
[2022-02-04 04:23] VITALS: BP 148/69; TEMP 98
[2022-02-04] MEDS: AMLODIPINE 10 MG TAB PO SCH (08:06)
[2022-02-04] MEDS: lisinopriL 10 MG TAB PO SCH (08:06)
[2022-02-04] MEDS: MAGNESIUM OXIDE 400 MG TAB PO SCH (08:07)
[2022-02-04] MEDS: TICAGRELOR 90 MG TABLET PO SCH (08:07)
[2022-02-04] MEDS: DULOXETINE 30 MG CAP PO SCH (08:07)
[2022-02-04] MEDS: FUROSEMIDE 40 MG/4 ML VIAL IV SCH (08:07)
--- NOTE | 2022-02-04 10:22 | ECHO ---
HEIGHT: 5 ft 7 in WEIGHT: 161 lb 1.6 oz DATE OF STUDY: 02/03/[address]: Scott Kelley MD 2-DIMENSIONAL: YES M.MODE: YES DOPPLER: YES COLOR FLOW: YES TDS: PORTABLE: YES DEFINITY: BUBBLE STUDY: DIAGNOSIS: CHEST PAIN CARDIAC HISTORY: CATHERIZATION: YES SURGERY: PROSTHETIC VALVE: PACEMAKER: MEASUREMENTS (cm) DIASTOLIC (NORMALS) SYSTOLIC (NORMALS) IVSd 0.9 (0.6-1.2) LA Diam 3.2 (1.9-4.0) LVEF 61% LVIDd 4.7 (3.5-5.7) LVIDs 3.1 (2.0-3.5) %FS 33% LVPWd 1.0 (0.6-1.2) Ao Diam 3.0 (2.0-3.7) 2 DIMENSIONAL ASSESSMENT: RIGHT ATRIUM: NORMAL LEFT ATRIUM: NORMAL RIGHT VENTRICLE: NORMAL LEFT VENTRICLE: NORMAL TRICUSPID VALVE: NORMAL MITRAL VALVE: NORMAL PULMONIC VALVE: NORMAL AORTIC VALVE: NORMAL PERICARDIAL EFFUSION: NONE AORTIC ROOT: NORMAL LEFT VENTRICULAR WALL MOTION: NORMAL DOPPLER/COLOR FLOW: TRICUSPID REGURGITATION MILD COMMENTS: ATRIAL FIBRILLATION. TRICUSPID REGURGITATION - NORMAL RIGHT VENTRICULAR SYSTOLIC PRESSURE. NORMAL LEFT VENTRICULAR SIZE AND FUNCTION. TECHNOLOGIST: JOSELUIS EVANS
--- NOTE | 2022-02-05 08:54 | DS ---
Date of Discharge: 02/04/2022 Disposition: Discharged to go home. Physical Examination: HEENT: Unremarkable. Lungs: Clear to auscultation. Heart: Sounds normal. Abdomen: Soft. Bowel sounds normal. No guarding, rigidity, tenderness, distention. Extremities: No leg edema. Laboratory Data: Upon admission, white count 9.4, hemoglobin 9.8, platelets 411 and on 02/02/2022, w dione count 8, hemoglobin 8.9, platelets 360. Chemistry on 02/02/2022, sodium 138, potassium 3.9, chl oride 104, bicarb 27, BUN 14, creatinine 1, glucose 100, magnesium 1.7. Her LDL cholesterol was 29. Her last troponin was 675, the one prior to that was 649. Potassium was 3.2 on 02/01/2022 and it wa s corrected. First troponin was 743 when she was admitted. Discharge Medications And Instructions: 1.Follow up with Dr. Linda next week on Thursday, which is 02/11/2022. Call office for appointment. 2.Follow up with Dr. Kelley in 2 weeks. 3.Stop digoxin. 4.Stop carvedilol. 5.Continue all your other home medications as below: Levothyroxine 100 mcg daily, amlodipine 10 mg daily, alprazolam 0.25 mg at bedtime, aspirin 81 mg daily, atorvastatin 40 mg daily at bedtime, dulox etine 60 mg 2 times a day, esomeprazole 40 mg daily, Dulera inhaler 2 puffs 2 times a day, gabapentin 100 mg 2 times a day, Metamucil fiber gummies 3 fiber gummies daily, Brilinta 90 mg 2 times a day, p otassium chloride 10 mEq daily, trazodone 100 mg daily at bedtime, tramadol 50 mg 2 times a day as ne eded for pain. 6.Change furosemide 40 mg tablet, the patient to take 1 tablet 2 times a day and magnesium oxide 400 mg 2 times a day. 7.New medication, lisinopril 20 mg take 1 tablet 2 times a day. Hospital Course: A 77-year-old female patient admitted to the hospital with shortness of breath. Pl ease see dictated H and P for more information. The patient was admitted to the hospital with acute pulmonary edema and acute exacerbation of chronic diastolic heart failure. Her cardiac enzymes were abnormal indicating non-STEMI. She did not have any chest pain. Cardiology consultation was request ed from Dr. Kelley. The patient was given anticoagulation therapy using Lovenox. Her home medicati ons were continued. She did have bradycardia with sinus pauses, maximum was 2.5 second pause, so we discontinued digoxin and carvedilol as per discussion with instrumentation supervisor and we did start her on lisin opril for blood pressure control. Cardiac cath was done yesterday by instrumentation supervisor and stent that was placed a few months ago appears patent. No evidence of any stent closure and remaining coronary art giovanni disease that was noted to be stable. No intervention was done during this cardiac cath procedure . The patient was noted to have some peripheral vascular disease, which was apparent at the time of cardiac catheterization and instrumentation supervisor will pursue further intervention on an elective outpatient b asis for that. The patient's shortness of breath problem has resolved with appropriate diuretic ther apy. Her venous Doppler of leg was negative for DVT and chest x-ray had shown interstitial edema whe n she came into the hospital. Final Diagnoses: 1.Acute pulmonary edema. 2.Congestive heart failure, chronic, diastolic, with acute exacerbation. 3.Hji-EK-jgnoexndt myocardial infarction. 4.Hypokalemia. 5.Hypomagnesemia. 6.Anemia, chronic. 7.Hypertension. 8.Coronary artery disease. 9.Hyperlipidemia. 10.Peripheral vascular disease. 11.Paroxysmal atrial fibrillation. 12.Aortic atherosclerosis. 13.Chronic obstructive pulmonary disease. 14.Hypothyroidism. 15.Anxiety. LUIS/MODL Voice ID: [id number] Report ID: [id number]
== END 2022-02-04 09:27 | disposition home or self-care (01) | DRG 280 ==
LOC: ER 15:53 → ERHOLD 19:42 → 2ND 21:53
PROVIDERS: ADMIT Internal Medicine; ATTEND Internal Medicine
PROC: B2011ZZ Plain Radiography of Multiple Coronary Arteries using Low Osmolar Contrast (ICD-10-PCS; principal; 2022-02-03)
PROC: B40F1ZZ Plain Radiography of Right Lower Extremity Arteries using Low Osmolar Contrast (ICD-10-PCS; 2022-02-03)
DX: I21.4 Non-ST elevation (NSTEMI) myocardial infarction (principal); I50.33 Acute on chronic diastolic (congestive) heart failure; I11.0 Hypertensive heart disease with heart failure; E87.6 Hypokalemia; E83.42 Hypomagnesemia; I48.0 Paroxysmal atrial fibrillation; E78.5 Hyperlipidemia, unspecified; I25.10 Atherosclerotic heart disease of native coronary artery without angina pectoris; F32.A Depression, unspecified; K21.9 Gastro-esophageal reflux disease without esophagitis; E03.9 Hypothyroidism, unspecified; D64.9 Anemia, unspecified; J44.9 Chronic obstructive pulmonary disease, unspecified; M15.9 Polyosteoarthritis, unspecified; I70.0 Atherosclerosis of aorta; F41.9 Anxiety disorder, unspecified; I70.201 Unspecified atherosclerosis of native arteries of extremities, right leg; Z95.5 Presence of coronary angioplasty implant and graft; Z20.822 Contact with and (suspected) exposure to COVID-19
CPT/HCPCS: 36415; 71045; 71046; 80048; 80061; 80076; 83735; 83880; 84132; 84484; 85025; 85610; 93005; 93306; 93454; 93971; 96365; 96372; 96375; 99285; C1893; J0583; J1644; J1940; J2250; J2270; J2405; J3010; J3475; J7040; Q9966; U0003

== ENCOUNTER 2022-02-17 10:52 | Inpatient (IN) | payer OTHER ==
--- OUTSIDE RECORDS SUMMARY | 2022-02-17 10:57 | XMS REPORT | Continuity of Care Document ---
:1945 Author Organization [facility] t Address [address] [place] [address] Care Team Providers Name Role Phone Unknown Primary Care Physician Unavailable GLADIS Attending Clinician Unavailable Chayo Attending Clinician Unavailable [id number] Attending Clinician Unavailable LUBA CONNELL Attending Clinician Unavailable Galindo Attending Clinician Unavailable NOHEMI VELEZ Attending Clinician Unavailable Cabrera Linda Admitting Clinician Unavailable Physician, Primary or Family Admitting Clinician Unavailabl e [id number] Admitting Clinician Unavailable LUBA CONNELL Admitting Clinician Unavailable Chayo Admitting Clinician Unavailable Payers Payer Name Policy Type Policy Number Effective Date Expiration Date S juan [employer] MEDICARE [id number] 2020 2024 PPO 00:00:00 00:00:00 Problems Condition [...] Allergie 3-07 Clear s 00:00: Sampson 00 [facility] codeine DA Active SD AFFECTS [facility] 307 Clear HERNIA 00:00: Sampson 00 [facility] Codeine Allergy Active Unknown [facility] to 03-30 [facility] 00:00: e 00 Social History Social Habit Start Date Stop Date Quantity Comments Source Tobacco use and 2021-06-28 2021-06-28 Smokeless tobacco [facility] exposure 00:00:00 00:00:00 non-user Sex Assigned At [birth year] [facility] 00:00:00 00:00:00 Smoking Status Start Date Stop Date Source Smokes tobacco daily 2021-06-28 00:00:00 [facility] Medications Ordered Filled Start Stop Current Ordering Indication Dosage Frequency Signature Comments Components Source Medication Medication Date Date Medication? Clinician (SIG) Name Name acetaminoph Yes [id number] 1{tbl} Take 1 UT en-codeine 5-02 tablet by [facility] (TYLENOL/CO 00:00: mouth DEINE #3) 00 every 4 300-30 MG (four) tablet hours if needed for severe pain. naloxone 2022- No [id number] .4mg Administer UT (Narcan) 2 11-18 03-08 0.4 mL Health MG/2ML 00:00: 05:59 (0.4 mg injection 00 :00 total) into affected nostril(s) if needed for opioid reversal. May repeat every 2-3 minutes as needed until medical assistance available. naloxone 2022- No [id number] .4mg Administer [facility] (Narcan) 2 11-18-08 0.4 mL Health MG/2ML 00:00: 05:59 (0.4 mg injection 00 :00 total) into affected nostril(s) if needed for opioid reversal. May repeat every 2-3 minutes as needed until medical assistance available. naloxone 2022- No [id number] .4mg Administer UT (Narcan) 2 11-18- 0.4 mL Health MG/2ML 00:00: 05:59 (0.4 mg injection 00 :00 total) into affected nostril(s) if needed for opioid reversal. May repeat every 2-3 minutes as needed until medical assistance available. naloxone 2022- No [id number] .4mg Administer UT (Narcan) 2 11-18 0.4 mL Health MG/2ML 00:00: 05:59 (0.4 mg injection 00 :00 total) into affected nostril(s) if needed for opioid reversal. May repeat every 2-3 minutes as needed until medical assistance available. traMADol 2021- No [id number] 50mg Take 1 UT (Ultram) 50 11-18 [...] 12:07: 12 Apixaban 2020-09 Yes Take by OR (ELIQUIS 2-06 mouth. Health PO) 12:07: 12 ASPIRIN 2020-09 Yes Take by OR ADULT PO 2-06 mouth. Health 12:07: 12 traMADol 2020-09- No [id number] 50mg Take 1 U T (Ultram) 50 1-02 11-08 tablet (50 H ealth MG tablet 00:00: 05:59 mg total) 00 :00 by mouth every 8 (eight) hours if needed for severe pain for up to 5 days. traMADol 2020-09- No [id number] 50mg Q6H Take 1 U T (Ultram) [...] / Time Performed Performing Clinician Ronald phillips [id number] 2021-11-20 00:00:00 ALDMO [facility] Encounters Start End Encounter Admission Attending Care Care Encounter Source Date/Time Date/Time Type Type Clinicians Facility Department ID 2022-02-06 Outpatient [facility] [id number] [place] 08:35:31 [id number] [facility] 2022-01-30 Outpatient [facility] [id number] [place] 08:25:37 [id number] [facility] 2022-01-13 Outpatient [facility] [id number] [place] 08:01:11 ARASH [id number] [facility] 2022-01-10 Inpatient [facility] [id number] [place] 01:05:02 ARASH [id number] [facility] 2022-01-08 Outpatient [facility] [id number] [place] 08:51:18 [id number] [facility] 2022-01-01 Outpatient [facility] [id number] [place] 08:50:28 ARASH [id number] [facility] 2021-12-16 Inpatient HECTOR OlmosBERONICA OUTD [id number] [facility] 10:30:00 Ortiz [id number] [facility] 2021-12-05 Outpatient [facility] [id number] [place] 13:45:58 ARASH [id number] [facility] 2021-12-04 Outpatient [facility] [id number] [place] 08:40:17 ARASH [id number] [facility] 2021-12-03 Outpatient [facility] [id number] [place] 12:29:19 ARASH [id number] [facility] 2021-11-21 Outpatient [facility] [id number] [place] 10:56:53 [facility] 2021-11-21 Outpatient [facility] [id number] [place] 10:55:46 [facility] 2021-11-18 Inpatient TRINI Olmos OUTD [id number] [facility] 13:00:00 Ortiz [id number] [facility] 2021-10-22 Outpatient [id number] [facility] CRD [id number] [facility] 10:32:05 2072021-10-16 Outpatient 3 [id number] [facility] REF [id number] [facility] 10:31:34 2012021-10-01 Outpatient GLADIS [facility] [id number] [place] 01:05:41 [facility] 2021-09-27 Inpatient GLADIS MHSE [facility]SE [id number] 14:57:03 [facility] 2021-09-24 Outpatient GLADIS [facility] [id number] [place] 14:24:58 [facility] 2021-09-16 Outpatient [facility] [id number] [place] 08:56:13 [facility] 2021-09-16 Outpatient [facility] [id number] [place] 08:54:24 [facility] 2021-08-19 Outpatient GLADIS, [facility] [id number] [place] 07:57:20 [facility] 2021-08-19 Outpatient [facility] [id number] OR 07:56:39 [facility] 2021-08-19 Outpatient [facility] [id number] OR 07:55:37 [facility] 2021-07-23 Outpatient [facility] [id number] [place] 10:43:22 [facility] 2021-07-23 Outpatient GLADIS, [facility] [id number] [place] 10:42:25 [facility] 2021-07-23 Outpatient [facility] [id number] [place] 10:36:58 [facility] 2022-01-13 2022-01-13 Office ESPERANZA Connell [facility] [id number] [place] 10:00:00 10:15:00 Visit Arash SAMPSON [id number] [facility] [id number] 2022-01-01 2022-01-01 Telephonic ESPERANZA Connell [id number] [place] 07:45:00 08:52:16 Encounter Arash BROTHERS [id number] [facility] [id number] 2021-12-18 2021-12-18 Outpatient HECTOR OlmosCL OUTD [id number] [facility] 05:16:00 05:16:00 Ortiz [id number] [facility] 2021-12-18 2021-12-18 Outpatient ANISA Domingo, HCACL HCACL [id number] [facility] 05:16:00 05:16:00 Ortiz 70 [facility] 2021-12-04 2021-12-04 Telephonic ESPERANZA Connell [id number] [place] 07:45:00 08:47:54 Encounter Arash BROTHERS [id number] [facility] CLINIC [id number] 2021-11-20 2021-11-21 Inpatient ANISA Medley, HCACL INTE.02 [id number] [facility] 14:27:00 13:39:00 [facility] [id number] [facility] 2021-11-20 2021-11-21 Inpatient ANISA Medley, HCACL INTE.02 [id number] [facility] 14:27:00 13:39:00 [facility] 30 [facility] 2021-11-18 2021-11-18 Office ESPERANZA CONNELL [facility] [id number] [place] 10:00:00 10:15:00 Visit ARASH SAMPSON [id number] He alth FABIEN 9.2.7.2.686 [facility] [id number] 2021-11-06 2021-11-06 Office ESPERANZA Connell [id number] [place] 10:45:00 11:24:42 Visit Arash BROTHERS [id number] He [facility] CLINIC [id number] 2021-09-27 2021-09-27 Emergency E BARTSOFF, MHSE MHSE [id number] 16:11:00 16:11:00 [facility] 2021-07-16 2021-07-16 Office ESPERANZA Connell [facility] [id number] UT 09:51:23 10:45:55 Visit Arash GAVIN [id number] He alth PLAZA 1 [id number] [id number] 2021-06-28 2021-06-28 Office ESPERANZA Connell [facility] [id number] UT 09:49:14 10:45:59 Visit Arash [facility] [id number] He rickey LOZANO 1 [id number] [id number] Results Test Description Test Time Test [...] x10 3/uL 0.0-0.1 N NRBC#) BASIC METABOLIC [id number] 15:06:00 Test Item Value Reference Range Interpretation [...] code = 8.4 mg/dL 8.0-10.5 N CA) [id number] 12:54:00 Test Item Value Reference Range Interpretation Comments ACT-ISTAT (test code 273 SEC 74-137 H Perform ed 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 = 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 BASIC METABOLIC [id number] 12:47:00 Test Item Value Reference Range Interpretation [...] = 8.4 mg/dL 8.0-10.5 N CA) PROTHROMBIN [id number] 12:47:00 Test Item Value Reference Range Interpretation [...] o prevent recurre nt infarct). 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 [facility] BASIC METABOLIC [id number] 07:56:00 Test Item Value Reference Range Interpretation [...] 8.7 mg/dL 8.0-10.5 N CA) CBC W/AUTO [id number] 06:58:00 Test Item Value Reference Range Interpretation [...] = 0.00 x10 3/uL 0.0-0.1 N NRBC#) [id number] 13:45:00 Test Item Value Reference Range Interpretation Comments ACT-ISTAT (test code 261 SEC 74-137 H 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 ed 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 = 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 [facility] - XR CHEST 1 [id number] 00:00:00 [facility] 1945 Sex: F FAX: Jayy Jefferson MD [phone] [place]: St: ADM FAX: Ortiz Glasgow MD [phone] FAX: Alan Toussaint [phone] Name: EDUARDO LA [facility] [place] : 1945 Age/S: 76/F [address] [place] [address] Unit #: [id number] Loc: [place] [address] Phys: Alan Toussaint Acct: [id number] Dis Date: Status: ADM IN PHONE #: [phone] Exam Date: 11/20/2021 1558 FAX #: [phone] Reason: WATCHMAN EXAMS: CPT CODE: [id number] XR CHEST 1 V 93511 PROCEDURE INFORMATION: Exam: XR Chest Exam date [...] Toussaint Technologist: RT Alexis(R) Trnscrd Date/Time/By: 11/20/2021 (6030) : By: [email or web address] Orig Print D/T: S: 11/20/2021 (4824) PAGE 1 Signed ReportPREALBUMIN 2021-11-18 15:14:00 Test Item Value Reference Range Interpretation Comments PREALBUMIN (test code = PREALB) 12.4 mg/dL 16.0-40.0 L BASIC METABOLIC [id number] 15:14:00 Test Item Value Reference Range Interpretation [...] code = 8.3 mg/dL 8.0-10.5 N CA) PROTHROMBIN [id number] 15:06:00 Test Item Value Reference Range Interpretation [...] o prevent recurre nt infarct). CBC W/AUTO [id number] 14:51:00 Test Item Value Reference Range Interpretation [...] 0.0-0.1 N NRBC#) - XR CHEST 2 [id number] 00:00:00 [facility] IRENA : 1945 Sex: F FAX: Jayy Jefferson MD [phone] [place]: St: PRE FAX: Ortiz Glasgow MD [phone] Name: EDUARDO LA [facility] : 1945 Age/S: 76/F [address] [place] [address] Unit #: [id number] Loc: [place] [address] Phys: Ortiz Domingo MD Acct: [id number] Dis Date: Status: PRE [facility] PHONE #: [phone] Exam Date: 11/18/2021 2029 FAX #: [phone] Reason: PREOP EXAMS: CPT CODE: [id number] XR CHEST 2 V 81497 PROCEDURE INFORMATION: Exam: XR Chest Exam date [...] of acute cardiopulmonary disease. SL: 131 at 9488 Reported and signed by: Saad Arboleda M.D. CC: Jayy Linda MD; Ortiz Domingo MD Technologist: RT Bayron(R) Trnscrd Date/Time/By: 11/18/2021 (2055) : By: Richi Orig Print D/T: S: 11/18/2021 (6440) PAGE 1 Signed Report
--- NOTE | 2022-02-17 11:48 | RAD REPORT ---
EXAM DESCRIPTION: RAD - Chest Single View - 02/17/2022 11:31 am CLINICAL HISTORY: PALPITATIONS Chest pain. COMPARISON: Chest Pa And Lat (2 Views) dated 02/02/2022; Chest Single View dated 01/31/2022; Chest Pa And Lat (2 Views) dated 01/30/2022; Chest Single View dated 11/07/2021 FINDINGS: Portable technique limits examination quality. The lungs are emphysematous but grossly clear. The heart is normal in size. No displaced fractures. IMPRESSION: No acute intrathoracic process suspected.
[2022-02-17 12:14] LABS: Absolute Lymphocytes (CBC) 0.8 K/uL (0.7-4.9); Hematocrit 35.5 % (36.0-45.0); Lymphocytes % 6.7 % (15.3-44.8); MPV 7.3 fL (7.6-11.3); RBC Red Blood Cell Count 4.92 M/uL (3.86-4.86)
--- NOTE | 2022-02-17 12:15 | ER ---
Nurse's Notes [facility] Name: Neela Staton Age: 77 yrs Sex: Female : 1945 Arrival Date: 02/17/2022 Time: 10:54 Bed 8 Private MD: James Linda C Diagnosis: Persistent atrial fibrillation;Hypokalemia Presentation: 02/17 11:10 Chief complaint: Patient states: was sent by Dr. Domingo , was seen by him this morning iw , was tols she was in Afib , has hx of afib, is also SOB, was admitted two weeks ago. Coronavirus screen: At this time, the client does not indicate any symptoms associated with coronavirus-19. Ebola Screen: Patient negative for fever greater than or equal to 101.5 degrees Fahrenheit, and additional compatible Ebola Virus Disease symptoms Patient denies exposure to infectious person. Patient denies travel to an Ebola-affected area in the 21 days before illness onset. No symptoms or risks identified at this time. Initial Sepsis Screen: Does the patient meet any 2 criteria? No. Patient's initial sepsis screen is negative. Does the patient have a suspected source of infection? No. Patient's initial sepsis screen is negative. Risk Assessment: Do you want to hurt yourself or someone else? Patient reports no desire to harm self or others. Onset of symptoms was February 17, 2022. 11:10 Method Of Arrival: Wheelchair iw 11:10 Acuity: BETHANY 3 iw 11:43 Acuity: BETHANY 2 iw Historical: - Allergies: 11:11 Codeine; iw - PMHx: 11:11 Atrial fibrillation; Depression; GERD; High Cholesterol; Hypertensive disorder; iw Hypothyroidism; 14:35 Neuropathy; aa5 - PSHx: 11:11 right leg stent; iw 14:35 heart stent; aa5 - Immunization history:: Flu vaccine status is unknown. - Family history:: not pertinent. - Social history:: Smoking status: unknown. - Hospitalizations: : The patient was recently seen at [facility]. Screenin:00 Abuse screen: Denies threats or abuse. Nutritional screening: No deficits noted. aa5 Tuberculosis screening: No symptoms or risk factors identified. Fall Risk None identified. Assessment: 11:40 General: Appears comfortable, Behavior is calm, cooperative. Pain: Denies pain. Neuro: aa5 Level of Consciousness is awake, alert, obeys commands, Oriented to person, place, time, situation. Cardiovascular: Denies chest pain, nausea, palpitations, Heart tones S1 S2 present Rhythm is atrial fibrillation with rapid ventricular response. Respiratory: Airway is patent Respiratory effort is even, unlabored, Respiratory pattern is regular, symmetrical, Denies shortness of breath. GI: Abdomen is round non-distended, Bowel sounds present X 4 quads. Abd is soft and non tender X 4 quads. Patient currently denies nausea, vomiting. : No signs and/or symptoms were reported regarding the genitourinary system. EENT: No signs and/or symptoms were reported regarding the EENT system. Derm: Skin is pink, warm \T\ dry. Musculoskeletal: Range of motion: intact in all extremities. 12:20 Reassessment: Pt resting in bed with eyes closed, respirations even and unlabored. . aa5 Cardiovascular: Rhythm is atrial fibrillation with rapid ventricular response. 12:37 Reassessment: Awaiting Amiodarone Drip from Pharmacy. aa5 12:50 Reassessment: Pt resting in bed with eyes closed, denies any complaints. . aa5 13:30 Reassessment: Patient is alert, oriented x 3, equal unlabored respirations, skin aa5 warm/dry/pink. Pt sitting up in bed watching TV. . 14:35 Reassessment: Patient is alert, oriented x 3, equal unlabored respirations, skin aa5 warm/dry/pink. Pt c/o luda leg pain, HR increased to 121 bpm, pt reports hx of neuropathy. MD was notified. . 15:45 Reassessment: Patient is alert, oriented x 3, equal unlabored respirations, skin aa5 warm/dry/pink. Patient states feeling better. Patient states symptoms have improved. 16:59 Reassessment: Patient is alert, oriented x 3, equal unlabored respirations, skin aa5 warm/dry/pink. Pt requesting pain medication, MD notified, see NOV. . 16:59 Cardiovascular: Rhythm is atrial fibrillation with rapid ventricular response. aa5 17:30 Reassessment: Patient is alert, oriented x 3, equal unlabored respirations, skin aa5 warm/dry/pink. Patient states feeling better. Patient states symptoms have improved. 17:30 Cardiovascular: Rhythm is atrial fibrillation. aa5 18:30 Reassessment: Patient is alert, oriented x 3, equal unlabored respirations, skin aa5 warm/dry/pink. Pt sitting up in bed eating dinner. . Vital Signs: 11:10 BP 130 / 69; Pulse 98; Resp 16; Temp 97.7(TE); Pulse Ox 99% on R/A; iw 11:48 BP 168 / 85; Pulse 112; Resp 18 S; Pulse Ox 99% on R/A; aa5 12:00 BP 121 / 73; Pulse 107; Resp 18 S; Pulse Ox 99% on R/A; aa5 12:30 BP 141 / 68; Pulse 119; Resp 16 S; Pulse Ox 100% on R/A; aa5 13:00 BP 105 / 86; Pulse 103; Resp 17 S; Pulse Ox 100% on R/A; aa5 13:30 BP 126 / 80; Pulse 107; Resp 16 S; Pulse Ox 100% on R/A; aa5 14:30 BP 116 / 88; Pulse 121; Resp 20 S; Pulse Ox 100% on R/A; aa5 15:00 BP 116 / 80; Pulse 128; Resp 16 S; Pulse Ox 99% on R/A; aa5 15:30 BP 147 / 93; Pulse 128; Resp 16 S; Pulse Ox 98% on R/A; aa5 16:00 BP 151 / 95; Pulse 122; Resp 14 S; Temp 97.9(TE); Pulse Ox 98% on R/A; aa5 16:30 BP 134 / 91; Pulse 118; Resp 16 S; Pulse Ox 98% on R/A; aa5 17:30 BP 127 / 85; Pulse 99; Resp 16 S; Pulse Ox 99% on R/A; aa5 ED Course: 10:54 Patient arrived in ED. am2 10:54 James Linda MD is Private Physician. am2 11:06 Robin Dee MD is Attending Physician. rn 11:11 Triage completed. iw 11:11 Arm band placed on. iw 11:33 XRAY Chest (1 view) In Process Unspecified. EDMS 11:40 Patient has correct armband on for positive identification. Placed in gown. Bed in low aa5 position. Call light in reach. Side rails up X2. Client placed on continuous cardiac and pulse oximetry monitoring. NIBP monitoring applied. 12:04 Parisa Cerda, RN is Primary Nurse. aa5 12:10 Inserted saline lock: 20 gauge in left antecubital area, using aseptic technique. Blood mb7 collected. 12:10 EKG done, by ED staff, reviewed by Robin Dee MD. mb7 12:10 CBC with Diff Sent. mb7 12:10 Basic Metabolic Panel Sent. mb7 12:11 NT PRO-BNP Sent. mb7 12:11 Troponin HS Sent. mb7 12:11 PT-INR Sent. mb7 12:15 James Linda MD is Hospitalizing Provider. rn 13:50 Missed attempt(s): 22 gauge in left forearm. Bleeding controlled, band aid applied, aa5 catheter tip intact. 13:55 Missed attempt(s): 22 gauge in left antecubital area. Bleeding controlled, band aid aa5 applied, catheter tip intact. 14:00 Inserted saline lock: 22 gauge in right forearm, using aseptic technique. aa5 14:00 Repeat lab(s) drawn. by pr, sent to lab. aa5 17:40 No provider procedures requiring assistance completed. Patient admitted, IV remains in aa5 place. 19:00 Report given to SUHAIL Jj and SUHAIL Kapadia. aa5 19:06 Primary Nurse role handed off by Parisa Cerda RN tw5 19:06 Steffi Burks is Primary Nurse. tw5 Administered Medications: 12:16 Drug: amiodarone 150 mg Volume: 100 ml; Route: IVPB; Infused Over: 10 mins; Site: left aa5 antecubital; 12:26 Follow up: IV Status: Completed infusion aa5 12:50 Drug: amiodarone 900 mg, D5W 500 ml Route: IVPB; Rate: 1 mg/min; Site: left antecubital;aa5 18:50 Follow up: Rate change 0.5 mg/min aa5 19:06 Follow up: currently at 0.5 \T\ 1850 tw5 14:34 Not Given (Duplicate Order): Potassium Chloride 10 mEq IV at calculated rate once; rn administer over 1-2 hours 15:20 Drug: Demerol (meperidine) 12.5 mg Route: IVP; Site: right forearm; aa5 15:45 Follow up: Response: No adverse reaction; Pain is decreased aa5 15:22 Drug: Potassium Chloride 20 mEq Route: IV; Rate: calculated rate; Site: right forearm; aa5 16:00 Follow up: Response: No adverse reaction aa5 16:59 Drug: Demerol (meperidine) 12.5 mg Route: IVP; Site: right forearm; aa5 17:05 Follow up: Response: No adverse reaction aa5 Medication: 21:51 VIS not applicable for this client. tw5 Intake: Outcome: 12:15 Decision to Hospitalize by Provider. rn 21:51 Admitted to ICU accompanied by nurse, via wheelchair, room 6, with chart, Report called tw5 to called to Romina. 21:51 Condition: stable tw5 21:51 Discharge instructions given to patient, Instructed on the need for admit. 21:58 Patient left the ED. tw5 Signatures: Dispatcher [employer] EDNaya Harris, RN RN Robin Dee MD MD rn Calderon, Audri, RN RN aa5 Nazanin Mendoza Tiffany tw5 Isabela Barnes mb7 Corrections: (The following items were deleted from the chart) 11:43 11:10 BP 130 / 69; Pulse 98bpm; Resp 16bpm; Pulse Ox 99% RA; iw
--- NOTE | 2022-02-17 12:15 | EDPHYS ---
Physician Documentation [facility] Name: Neela Staton Age: 77 yrs Sex: Female : 1945 Arrival Date: 02/17/2022 Time: 10:54 Bed 8 Private MD: James Linda C ED Physician Robin Dee HPI: 02/17 11:46 This 77 yrs old Female presents to ER via Wheelchair with complaints of afib. rn 11:46 The patient presents with a history of irregular heart beat. Context: The symptoms rn occur at rest. Onset: The symptoms/episode began/occurred at an unknown time. Duration: The patient or guardian reports a single episode. Modifying factors: The symptoms are aggravated by nothing. The symptoms are alleviated by nothing. Severity of symptoms: At their worst the symptoms were moderate in the emergency department the symptoms are unchanged. The patient has experienced similar episodes in the past. The patient has been recently seen by a physician:. Sent by Dr. Domingo for afib with RVR, wants patient admitted and placed on Amiodarone drip. Pt reports mild sob but no chest pain.. Historical: - Allergies: 11:11 Codeine; iw - PMHx: 11:11 Atrial fibrillation; Depression; GERD; High Cholesterol; Hypertensive disorder; iw Hypothyroidism; 14:35 Neuropathy; aa5 - PSHx: 11:11 right leg stent; iw 14:35 heart stent; aa5 - Immunization history:: Flu vaccine status is unknown. - Family history:: not pertinent. - Social history:: Smoking status: unknown. - Hospitalizations: : The patient was recently seen at [facility]. ROS: 11:46 Constitutional: Negative for fever, chills, and weight loss, Eyes: Negative for injury, rn pain, redness, and discharge, Neck: Negative for injury, pain, and swelling, Cardiovascular: + palpitations, neg for chest pain Respiratory: + mild sob Abdomen/GI: Negative for abdominal pain, nausea, vomiting, diarrhea, and constipation, MS/Extremity: Negative for injury and deformity, Skin: Negative for injury, rash, and discoloration, Neuro: Negative for headache, weakness, numbness, tingling, and seizure. Exam: 11:46 Constitutional: This is a well developed, well nourished patient who is awake, alert, rn and in no acute distress. Head/Face: Normocephalic, atraumatic. Eyes: Periorbital areas with no swelling, redness, or edema. Cardiovascular: Tachycardic, irregular Respiratory: No increased work of breathing, no retractions or nasal flaring. Skin: Warm, dry MS/ Extremity: Pulses equal, no cyanosis. Neuro: Awake and alert, GCS 15 11:47 ECG was reviewed by the Attending Physician. rn Vital Signs: 11:10 BP 130 / 69; Pulse 98; Resp 16; Temp 97.7(TE); Pulse Ox 99% on R/A; iw 11:48 BP 168 / 85; Pulse 112; Resp 18 S; Pulse Ox 99% on R/A; aa5 12:00 BP 121 / 73; Pulse 107; Resp 18 S; Pulse Ox 99% on R/A; aa5 12:30 BP 141 / 68; Pulse 119; Resp 16 S; Pulse Ox 100% on R/A; aa5 13:00 BP 105 / 86; Pulse 103; Resp 17 S; Pulse Ox 100% on R/A; aa5 13:30 BP 126 / 80; Pulse 107; Resp 16 S; Pulse Ox 100% on R/A; aa5 14:30 BP 116 / 88; Pulse 121; Resp 20 S; Pulse Ox 100% on R/A; aa5 15:00 BP 116 / 80; Pulse 128; Resp 16 S; Pulse Ox 99% on R/A; aa5 15:30 BP 147 / 93; Pulse 128; Resp 16 S; Pulse Ox 98% on R/A; aa5 16:00 BP 151 / 95; Pulse 122; Resp 14 S; Temp 97.9(TE); Pulse Ox 98% on R/A; aa5 16:30 BP 134 / 91; Pulse 118; Resp 16 S; Pulse Ox 98% on R/A; aa5 17:30 BP 127 / 85; Pulse 99; Resp 16 S; Pulse Ox 99% on R/A; aa5 MDM: 11:06 Patient medically screened. rn 12:14 Differential diagnosis: arrythmia, dehydration. Data reviewed: vital signs, nurses rn notes, EKG, and as a result, I will admit patient. Counseling: I had a detailed discussion with the patient and/or guardian regarding: the historical points, exam findings, and any diagnostic results supporting the discharge/admit diagnosis. Admission orders: after a detailed discussion of the patient's condition and case, the admit orders are written by me. 15:01 ED course: Troponin decreased, likely rate related, patient doing better. . rn 15:01 ED course: Pt requests pain medication for her legs, allergic to codeine, will give rn 12.5 mg demerol and reeval.. 02/17 11:06 Order name: Basic Metabolic Panel; Complete Time: 12:46 rn 02/17 11:06 Order name: CBC with Diff; Complete Time: 12:38 rn 02/17 11:06 Order name: NT PRO-BNP; Complete Time: 12:46 rn 02/17 11:06 Order name: PT-INR; Complete Time: 12:38 rn 02/17 11:06 Order name: Troponin HS; Complete Time: 12:46 rn 02/17 12:15 Order name: SARS-COV-2 RT PCR (Document "Date of Onset" if Symptomatic) 02/17 13:58 Order name: Basic Metabolic Panel EDMS 02/17 13:58 Order name: Basic Metabolic Panel EDMS 02/17 13:58 Order name: CBC with Automated Diff EDMS 02/17 13:58 Order name: CBC with Automated Diff EDMS 02/17 13:58 Order name: Troponin High Sensitivity EDMS 02/17 13:58 Order name: Troponin High Sensitivity EDMS 02/17 13:58 Order name: Troponin High Sensitivity EDMS 02/17 13:58 Order name: Troponin High Sensitivity EDMS 02/17 11:06 Order name: XRAY Chest (1 view); Complete Time: 11:49 rn 02/17 11:06 Order name: EKG; Complete Time: 11:07 rn 02/17 11:06 Order name: Cardiac monitoring; Complete Time: 12:10 rn 02/17 11:06 Order name: EKG - Nurse/Tech; Complete Time: 11:42 rn 02/17 11:06 Order name: IV Saline Lock; Complete Time: 12:10 rn 02/17 11:06 Order name: Labs collected and sent; Complete Time: 12:10 rn 02/17 13:58 Order name: EKG Electrocardiogram EDMS 02/17 13:58 Order name: EKG Electrocardiogram EDWV 02/17 13:58 Order name: EKG Electrocardiogram EDWV 02/17 13:58 Order name: EKG Electrocardiogram EDWV 02/17 11:06 Order name: O2 Per Protocol; Complete Time: 12:18 rn 02/17 11:06 Order name: O2 Sat Monitoring; Complete Time: 12:18 rn EC:47 Rate is 120 beats/min. Rhythm is irregularly irregular. QRS [place] is Normal. [place] interval rn is normal. QRS interval is normal. QT interval is normal. No Q waves. T waves are Normal. No ST changes noted. Clinical impression: Atrial Fibrillation. Interpreted by me. Reviewed by me. Administered Medications: 12:16 Drug: amiodarone 150 mg Volume: 100 ml; Route: IVPB; Infused Over: 10 mins; Site: left aa5 antecubital; 12:26 Follow up: IV Status: Completed infusion aa5 12:50 Drug: amiodarone 900 mg, D5W 500 ml Route: IVPB; Rate: 1 mg/min; Site: left antecubital;aa5 18:50 Follow up: Rate change 0.5 mg/min aa5 19:06 Follow up: currently at 0.5 \\T\\ 1850 tw5 14:34 Not Given (Duplicate Order): Potassium Chloride 10 mEq IV at calculated rate once; rn administer over 1-2 hours 15:20 Drug: Demerol (meperidine) 12.5 mg Route: IVP; Site: right forearm; aa5 15:45 Follow up: Response: No adverse reaction; Pain is decreased aa5 15:22 Drug: Potassium Chloride 20 mEq Route: IV; Rate: calculated rate; Site: right forearm; aa5 16:00 Follow up: Response: No adverse reaction aa5 16:59 Drug: Demerol (meperidine) 12.5 mg Route: IVP; Site: right forearm; aa5 17:05 Follow up: Response: No adverse reaction aa5 Disposition Summary: 02/17/22 12:15 Hospitalization Ordered Hospitalization Status: Inpatient Admission rn Provider: James Linda rn Location: Intensive Care Unit rn Condition: Stable rn Problem: an acute exacerbation rn Symptoms: have improved rn Bed/Room Type: Standard rn Room Assignment: 6-(02/17/22 20:42) bb Diagnosis - Persistent atrial fibrillation rn - Hypokalemia rn Forms: - Medication Reconciliation Form rn - SBAR form rn Signatures: Dispatcher [employer] Sara Reaves RN RN bb Naya Russell RN Robin Batista MD MD rn Calderon, Audri, Steffi Malik RN tw5 Corrections: (The following items were deleted from the chart) 20:42 12:15 reginaldo sultana
[2022-02-17] MEDS ORDERED: AMIODARONE HCL 150 MG/3 ML INJ IV ONE (12:17)
[2022-02-17] MEDS ORDERED: D5W 100 ML IV ONE (12:17)
[2022-02-17 12:22] LABS: Protime INR 1.04
[2022-02-17 12:45] LABS: Potassium 2.7 mmol/L (3.5-5.1); Troponin High Sensitivity 438.6 pg/mL (<58.9)
[2022-02-17] MEDS ORDERED: AMIODARONE HCL 900 MG in Dextrose 5%-Water 482 ML IV SCH ×2 (12:45→12:50)
--- NOTE | 2022-02-17 13:18 | EKG ---
Test Date: 2022-02-17 Test Time: 11:34:52 Back Maker: NIXON MEASUREMENT RESULTS: Intervals: Rate: 120 [place]: QRSD: 76 QT: 318 QTc: 449 [place]: P: FL: QRS: 60 T: 254 INTERPRETIVE STATEMENTS: Atrial fibrillation with rapid ventricular response ST & T wave abnormality, consider inferior ischemia or digitalis effect ST & T wave abnormality, consider anterolateral ischemia or digitalis effect Abnormal ECG Compared to ECG 01/31/2022 17:48:40 Possible ischemia now present ST (T wave) deviation still present Electronically Signed On 02-17-22 13:17:48 CDT by Ortiz Domingo
[2022-02-17] MEDS ORDERED: ONDANSETRON 4 MG/2 ML VIAL IV PRN (13:51)
[2022-02-17] MEDS ORDERED: NA CHLORIDE 0.9% 500 ML ONE (15:27)
[2022-02-17] MEDS ORDERED: MEPERIDINE HCL 25 MG/ML SYR ONE (15:27)
[2022-02-17] MEDS ORDERED: KCL 20 MEQ/100 mL IVPB 100 ML IV ONE (15:28)
[2022-02-17 22:38] VITALS: BMI 23.5
[2022-02-17] MEDS: lisinopriL 20 MG TAB PO SCH (23:17)
[2022-02-17] MEDS: DULOXETINE 30 MG CAP PO SCH (23:17)
[2022-02-17] MEDS: ALPRAZOLAM 0.25 MG TABLET PO SCH (23:17)
[2022-02-18] MEDS: MORPHINE 2 MG/ML SYR IV PRN ×2 (00:51→09:41)
[2022-02-18 05:03] LABS: Absolute Lymphocytes (CBC) 1.2 K/uL (0.7-4.9); Hematocrit 31.9 % (36.0-45.0); Lymphocytes % 11.3 % (15.3-44.8); MPV 7.5 fL (7.6-11.3); RBC Red Blood Cell Count 4.45 M/uL (3.86-4.86)
[2022-02-18 05:17] LABS: Potassium 2.6 mmol/L (3.5-5.1)
[2022-02-18] MEDS ORDERED: POTASSIUM 25 MEQ EFFERV TAB PO ONE ×2 (05:51→10:00)
--- NOTE | 2022-02-18 07:34 | HP ---
Date of Admission: 02/17/2022 Chief Complaint: Rapid heartbeat. History Of Present Illness: This is a 77-year-old very pleasant female patient who had appointment to see reservations sales supervisor, Dr. Domingo, today and she went to his office and was noted to have atrial fibrillation with rapid ventricular rate. The patient feels like a rapid heartbeat feeling when she has this kind of episode, and she was sent to emergency room by Dr. Domingo with instruction to start her on IV amiodarone drip. When she was evaluated, she was started on such treatment and I was contacted requesting admission to the hospital. I saw her this evening in the emergency room. She still had atrial fibrillation, but her heart rate was well controlled. It was between 90 to 100 per minute. She did not have any chest pain. No shortness of breath. No other complaints reported. No vomiting. No diarrhea. Medications: List reviewed. Allergies: TO CODEINE CAUSING NAUSEA. Review of Systems: Cardiovascular: As mentioned above. All other systems reviewed and negative. Past Medical History: Hypothyroidism, COPD, hypertension, hyperlipidemia, paroxysmal atrial fibrillation, coronary artery disease, peripheral vascular disease, aortic atherosclerosis, gastroesophageal reflux disease, kidney stone, osteoarthritis at multiple sites anemia, anxiety, hypokalemia, and hypomagnesemia and chronic diastolic heart failure. The patient had cardioversion for atrial fibrillation on February 28, 2022, and it was successful. She converted to sinus rhythm at that time. Past Surgical History: Coronary artery angioplasty with stent placement on December 19, 2019, Watchman's procedure on November 20, 2021, right leg stent in May 2021, left leg stent in 2000, cholecystectomy, hysterectomy, back surgery, and cervical spine surgery. Family History: Father had heart disease. Mother had diabetes. Social History: Prior history of smoking, not at present time. Use of alcohol negative. Physical Examination: Vital Signs: Height 5 feet 7 inches, weight 150 pounds. Temperature 97.7, pulse 98, respiratory rate 16, blood pressure 130/69, oxygen saturation 99%. General: Awake, alert, oriented, not in distress. HEENT: Head atraumatic, normocephalic. Conjunctivae nonerythematous. Sclerae white. Mouth, no thrush or edema noted. Ears/Nose, no mass, lesion, discharge noted. Neck: Supple. No JVD, lymph nodes, bruit, thyromegaly noted. Lungs: Bilateral good equal air entry. Clear to auscultation. No rhonchi. No rales. Heart: Normal heart sounds, no murmur or gallop. Abdomen: Soft, bowel sounds normal. No guarding, rigidity, tenderness, mass, hepatosplenomegaly, distention, or bruit noted. Extremities: No leg edema. No calf tenderness. Skin: No rash, ulcer, cellulitis. Lymphatics: No lymph node enlargement in neck, supraclavicular, infraclavicular region. Neuro: No focal neurological deficit. Chest: Unremarkable. External Genitalia: Deferred. Rectal: Deferred. Laboratory Data: White count 12.3, hemoglobin 10.9, platelets 449. Sodium 136, potassium 2.7, chloride 98, bicarb 27, BUN 24, creatinine 1.40. Troponin 438, second troponin 415, and third troponin this evening was 388. Impression: 1. Atrial fibrillation with rapid ventricular rate. 2. Coronary artery disease. 3. Hypertension. 4. Hyperlipidemia. 5. Peripheral vascular disease. 6. Hypokalemia. 7. Anemia. Plan: We will go ahead and admit the patient to hospital for further evaluation and management of this problem. The patient is appropriate for inpatient and is expected to spend 2 midnights in hospital. We will consult Cardiology. Replace electrolyte per protocol. Continue IV amiodarone drip per order and home medications will be continued per order. Details and plan of treatment discussed with the patient. The patient had Watchman procedure done by Dr. Domingo about 2 to 3 months ago, so any decision for anticoagulation therapy, we will leave it up to the reservations sales supervisor. Continue her antiplatelet therapy. The details and plan of treatment discussed with her. LUIS/MODL Voice ID: [id number] CJ
[2022-02-18] MEDS: lisinopriL 20 MG TAB PO SCH ×2 (07:58→19:52)
[2022-02-18] MEDS: TICAGRELOR 90 MG TABLET PO SCH ×2 (07:59→19:50)
[2022-02-18] MEDS: FUROSEMIDE 40 MG TABLET PO SCH (07:59)
[2022-02-18] MEDS: DULOXETINE 30 MG CAP PO SCH ×2 (07:59→19:51)
[2022-02-18] MEDS: LEVOTHYROXINE SOD 0.1 MG TAB PO SCH (07:59)
[2022-02-18] MEDS: ASPIRIN EC 81 MG TAB PO SCH (07:59)
[2022-02-18] MEDS: AMLODIPINE 10 MG TAB PO SCH (07:59)
[2022-02-18] MEDS ORDERED: PNEUMOCOCCAL VACCINE 0.5 ML IMVAC ONE (08:00)
[2022-02-18] MEDS: AMIODARONE HCL 200 MG TAB PO SCH ×2 (08:55→19:50)
[2022-02-18] MEDS: ENOXAPARIN 80 MG/0.8 ML SQ SCH ×2 (09:40→19:51)
--- NOTE | 2022-02-18 09:52 | EKG ---
Test Date: 2022-02-17 Test Time: 12:34:06 Gum Mixer: ALP MEASUREMENT RESULTS: Intervals: Rate: 98 [place]: QRSD: 74 QT: 328 QTc: 418 [place]: P: [place]: QRS: 77 T: 257 INTERPRETIVE STATEMENTS: Atrial fibrillation ST & T wave abnormality, consider inferior ischemia ST & T wave abnormality, consider anterolateral ischemia Abnormal ECG Compared to ECG 02/17/2022 12:33:36 No significant changes Electronically Signed On 02-18-22 09:49:54 CDT by Scott Kelley
--- NOTE | 2022-02-18 09:53 | EKG ---
Test Date: 2022-02-17 Test Time: 12:33:36 Retail Event And Sales Assistant: ALP MEASUREMENT RESULTS: Intervals: Rate: 98 [place]: QRSD: 80 QT: 328 QTc: 418 [place]: P: [place]: QRS: 74 T: 265 INTERPRETIVE STATEMENTS: Atrial fibrillation ST & T wave abnormality, consider inferior ischemia ST & T wave abnormality, consider anterolateral ischemia Abnormal ECG Compared to ECG 02/17/2022 11:34:52 No significant changes Electronically Signed On 02-18-22 09:49:55 CDT by Scott Kelley
[2022-02-18] MEDS ORDERED: MAGNESIUM SULFATE 1 gm IVPB 1 GM/100 ML BAG IV ONE (12:00)
[2022-02-18] MEDS ORDERED: POTASSIUM CL SA 10 MEQ TAB PO ONE (19:00)
[2022-02-18] MEDS: ALPRAZOLAM 0.25 MG TABLET PO SCH (19:51)
--- NOTE | 2022-02-18 20:35 | PN ---
Date of Progress Note: 02/18/2022 Subjective: The patient was seen this morning for followup. She was lying in bed, not in distress in ICU, on IV amiodarone drip. Still remains in atrial fibrillation with rapid ventricular rate anywhere between 110 to 120 per minute. Blood pressure is stable. Denies any chest pain or shortness of breath. Objective: Vital Signs: Reviewed. HEENT: Unremarkable. Lungs: Clear to auscultation. Heart: Sounds normal. Abdomen: Soft. Bowel sounds normal. No guarding, rigidity, tenderness, distention. Extremities: No leg edema. Laboratory Data: White count 10.6, hemoglobin 10, platelets 374. Sodium 136, potassium 2.6, chloride 101 bicarb 28, BUN 19, creatinine 1.03, glucose 106, magnesium 1.7. Impression: 1. Atrial fibrillation with rapid ventricular rate. 2. Hypokalemia. 3. Hypomagnesemia. 4. Anemia. 5. Hypertension. 6. Chronic obstructive pulmonary disease. 7. Hyperlipidemia. 8. Coronary artery disease. Plan: We will go ahead and continue current medications. Continue amiodarone. Details were discussed with aurist, Dr. Kelley who informed me that he will change the patient from IV to oral amiodarone, and by tomorrow if she does not convert to sinus rhythm, consider electrical cardioversion. The patient had a Watchman procedure done, so aurist is not recommending any anticoagulation therapy for her. The patient will continue to receive Brilinta. Continue current antihypertensive medication and statin therapy. The patient will get Lovenox as Dr. Kelley has ordered it and I will see her tomorrow for followup. Replace potassium as per order. LUIS/MODL Voice ID: [id number] Report ID: [id number]
[2022-02-18] MEDS ORDERED: ATORVASTATIN 40 MG TAB PO SCH (21:00)
[2022-02-18] MEDS ORDERED: HOME MED 1 EA UNK (Esomeprazole Mag Trihydrate [Nexium] 40 MG Capsule.Dr) PO SCH (21:00)
[2022-02-18] MEDS ORDERED: PANTOPRAZOLE 40MG TABLET PO SCH (21:00)
[2022-02-19] MEDS: MORPHINE 2 MG/ML SYR IV PRN ×3 (00:33→14:27)
[2022-02-19 05:33] LABS: Magnesium 1.8 mg/dL (1.8-2.4); Potassium 3.3 mmol/L (3.5-5.1)
[2022-02-19] MEDS: LEVOTHYROXINE SOD 0.1 MG TAB PO SCH (06:30)
[2022-02-19] MEDS ORDERED: MIDAZOLAM HCL 2 MG/2 ML INJ ONE (06:47)
[2022-02-19] MEDS ORDERED: MIDAZOLAM HCL 5 ML ONE (06:47)
[2022-02-19] MEDS ORDERED: FLUMAZENIL 0.1 MG/ML (5 mL VIAL) IV ONE (06:47)
[2022-02-19] MEDS ORDERED: METOPROLOL TARTRATE 5 MG/5 ML INJ IV ONE (06:47)
[2022-02-19] MEDS ORDERED: ATROPINE SULF 1 MG/10 ML SYR IV ONE (06:48)
[2022-02-19] MEDS ORDERED: NA CHLORIDE 0.9% 500 ML ONE (07:20)
[2022-02-19] MEDS: DULOXETINE 30 MG CAP PO SCH (09:00)
[2022-02-19] MEDS: ENOXAPARIN 80 MG/0.8 ML SQ SCH (09:00)
[2022-02-19] MEDS: AMIODARONE HCL 200 MG TAB PO SCH (09:13)
[2022-02-19] MEDS: lisinopriL 20 MG TAB PO SCH (09:50)
[2022-02-19] MEDS: FUROSEMIDE 40 MG TABLET PO SCH (09:51)
[2022-02-19] MEDS: ASPIRIN EC 81 MG TAB PO SCH (09:51)
[2022-02-19] MEDS: TICAGRELOR 90 MG TABLET PO SCH (09:51)
[2022-02-19] MEDS: AMLODIPINE 10 MG TAB PO SCH (09:51)
--- NOTE | 2022-02-19 10:11 | OP ---
Date of Procedure: 02/19/2022 Surgeon: Scott Kelley MD Balling Machine Operator: Ms. Viky Wallace. Indication: Ms. Staton is 77, admitted to Dr. Linda on 02/17/2022 with recurrent atrial fibrilla tion, symptomatic. Failed IV amiodarone, switched to p.o. amiodarone. She has had a Watchman before . Anticoagulations were not needed. She was on Lovenox. Proceudre In Detail: Brought to the senior label specialist today as an inpatient, received 8 mg of IV push of Vers ed for sedation. She received 1 shock of 200 joules and converted to sinus rhythm. There were no co mplications or blood loss. Postoperative Diagnosis: Successful cardioversion of atrial fibrillation to sinus bradycardia. Plan: To continue amiodarone 400 b.i.d. for a week and then switch to 200 mg daily. The case was di scussed with Dr. Linda. The patient can go home after she wakes up. I will see her in the office in 2 weeks. RADHA/STEPHANI Voice ID: [id number] Report ID: [id number]
[2022-02-19] MEDS ORDERED: POTASSIUM 25 MEQ EFFERV TAB PO ONE (11:50)
[2022-02-19] MEDS ORDERED: PNEUMOCOCCAL VACCINE 0.5 ML IMVAC ONE (13:00)
[2022-02-19 15:01] VITALS: TEMP 97.3
[2022-02-19] MEDS ORDERED: AMIODARONE HCL 200 MG TAB PO ONE (16:00)
[2022-02-19 16:45] VITALS: O2SAT 98
[2022-02-19 16:58] VITALS: BP 134/77
--- NOTE | 2022-02-20 13:43 | CON ---
Date of Consultation: 02/18/2022 Reason For Consultation: Atrial fibrillation. History Of Present Illness: Ms. Staton is 77. Has had a history of Watchman procedure for paro xysmal atrial fibrillation. 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 Has a history of paroxysmal atrial fibrillation, hypertension, dysli pidemia, and depression. Came in with rapid ventricular response, atrial fibrillation, rate of in 16 0s, was placed on IV amiodarone overnight. Her heart rate is controlled, but she remains in atrial f ibrillation. She is on Lovenox. She is not on anticoagulants p.o. because she was not tolerated, th is is why she had the Watchman. The patient complains of shortness of breath and palpitation. Denie s nausea, vomiting, diaphoresis, PND, orthopnea, pedal edema, or syncope. Denied any chest pain. De nies any fever or chills. Past Medical History: As stated above. Allergies: INCLUDE IODINE. Review of Systems: Negative. Social History: Negative. Family History: Noncontributory. Medications: Listed by Dr. Linda. In addition to that, she is on amiodarone IV, now on Lovenox. Physical Examination: Vital Signs: Heart rate was 130. Vital signs otherwise stable. Afebrile. HEENT: Negative. Neck: Supple with no bruit. Chest: Clear. Cardiac: Revealed atrial fibrillation. Abdomen: Benign. Extremities: Revealed no clubbing, cyanosis, or edema. Diagnostic Data: Showed a potassium of 2.6, troponin of 385. Impression And Plan: 1.Recurrent atrial fibrillation, failed IV amiodarone. The patient has had a Watchman, but she has never had an ablation or shock. I will plan to do a cardioversion tomorrow. Keep her on p.o. amioda salvatore 400 b.i.d., keep her on Lovenox. 2.Potassium of 2.6, needs to be corrected. 3.Allergy to iodine. 4.Elevated troponin secondary to atrial fibrillation. 5.History of coronary artery disease, status post stent, stable. 6.Peripheral arterial disease, stable. 7.Hypertension, well controlled. 8.Dyslipidemia, well controlled. 9.Depression. Again, continue amiodarone p.o. Continue Lovenox. Correct potassium. Cardioversion on the morning of 02/19/2022. If the cardioversion fails, we will consider ablation. RADHA/STEPHANI Voice ID: [id number] Report ID: [id number]
--- NOTE | 2022-02-20 14:21 | EKG ---
Test Date: 2022-02-19 Test Time: 07:43:16 Instructor Physical: NIXON MEASUREMENT RESULTS: Intervals: Rate: 74 MN: 168 QRSD: 68 QT: 462 QTc: 512 [place]: P: 63 MN: 168 QRS: 14 T: 80 INTERPRETIVE STATEMENTS: Sinus rhythm with marked sinus arrhythmia Septal infarct, age undetermined Prolonged QT Abnormal ECG Compared to ECG 02/17/2022 12:34:06 Myocardial infarct finding now present Prolonged QT interval now present Atrial fibrillation no longer present ST (T wave) deviation no longer present Possible ischemia no longer present Electronically Signed On 02-20-22 14:19:26 CDT by Ortiz Domingo
--- NOTE | 2022-03-11 10:41 | DS ---
Date of Discharge: 02/19/2022 Disposition: Discharged to go home. Physical Examination: HEENT: Unremarkable. Lungs: Clear to auscultation. Heart: Sounds normal. Abdomen: Soft. Bowel sounds normal. No guarding, rigidity, tenderness, or distention. Extremities: No leg edema. Laboratory Data: Upon admission on 02/17/2022; white count 12.3, hemoglobin 10.9, platelets 449. Da y after admission; white count was 10.6, hemoglobin 10, and platelets 374. Last chemistry on the day of discharge; sodium 137, potassium 3.3, chloride 101, bicarb 30, BUN 16, creatinine 1, glucose 104, magnesium 1.8. Potassium was low 80 on 11/18/2021 and potassium was 2.6. Magnesium level was 1.7. Upon admission; sodium 136, potassium 2.7, chloride 98, bicarb 27, BUN 24, creatinine 1.4. Initial troponin 438, second troponin 415, third troponin 388, and last troponin 385. Discharge Medications And Instructions: Continue all of your home medication as below which is; 1.Levothyroxine 100 mcg daily. 2.Amlodipine 10 mg daily. 3.Alprazolam 0.25 mg at bedtime. 4.Aspirin 81 mg daily. 5.Atorvastatin 40 mg daily at bedtime. 6.Duloxetine 60 mg 2 times a day. 7.Esomeprazole 40 mg daily. 8.Dulera inhaler 2 puffs by mouth 2 times a day. 9.Gabapentin 100 mg 2 times a day. 10.Metamucil fiber gummies, take 3 fiber gummies daily. 11.Brilinta 90 mg 2 times a day. 12.Trazodone 100 mg daily at bedtime. 13.Tramadol 50 mg 2 times a day as needed for pain. 14.Furosemide 40 mg 2 times a day. 15.Magnesium oxide 400 mg 2 times a day. 16.Lisinopril 20 mg 2 times a day. 17.Change potassium chloride 20 mEq, take 1 tablet by mouth 2 times a day. 18.Start amiodarone 200 mg, take 2 tablets by mouth 2 times a day for 1 week, then 1 tablet by mouth daily. 19.Follow up at my office next week on 02/26/2022. Call for appointment. 20.Followup with Dr. Kelley in 2 weeks. Hospital Course: This is a 77-year-old very pleasant female patient, who was admitted to [facility] with rapid heartbeat feeling. Please see dictated H and P for more information. The patient was a dmitted to the hospital with atrial fibrillation with rapid ventricular rate. Cardiology consultatio n was requested from Dr. Kelley and IV amiodarone was started. After IV amiodarone was started, the patient still remained in atrial fibrillation with rapid ventricular rate. She was kept in ICU and after IV amiodarone was loaded, Dr. Kelley took her to cardiac greenskeeper laborer for cardioversion where she was cardioverted to sinus rhythm. Subsequently, she was moved back to ICU and we were planning to di [facility], but prior to discharge, atrial fibrillation and Dr. Kelley suggested for her to go home with above-mentioned medications on outpatient basis. He will decide further plan of action on her. Final Diagnoses: 1.Atrial fibrillation with rapid ventricular rate. 2.Coronary artery disease. 3.Hypokalemia. 4.Hypomagnesemia. 5.Anemia. 6.Hypertension. 7.Hyperlipidemia. 8.Peripheral vascular disease. LUIS/MODL Voice ID: [id number] Report ID: [id number]
== END 2022-02-19 16:35 | disposition home or self-care (01) | DRG 310 ==
LOC: ER 10:52 → ERHOLD 13:56 → 3RD-ICU 21:21
PROVIDERS: ADMIT Internal Medicine; ATTEND Internal Medicine
PROC: 5A2204Z Restoration of Cardiac Rhythm, Single (ICD-10-PCS; principal; 2022-02-17)
DX: I48.91 Unspecified atrial fibrillation (principal); I25.10 Atherosclerotic heart disease of native coronary artery without angina pectoris; I10 Essential (primary) hypertension; E87.6 Hypokalemia; E83.42 Hypomagnesemia; E78.5 Hyperlipidemia, unspecified; I73.9 Peripheral vascular disease, unspecified; D64.9 Anemia, unspecified; J44.9 Chronic obstructive pulmonary disease, unspecified; F32.A Depression, unspecified; E03.9 Hypothyroidism, unspecified; G62.9 Polyneuropathy, unspecified; K21.9 Gastro-esophageal reflux disease without esophagitis; Z20.822 Contact with and (suspected) exposure to COVID-19; Z95.5 Presence of coronary angioplasty implant and graft; Z95.820 Peripheral vascular angioplasty status with implants and grafts; Z88.6 Allergy status to analgesic agent; Z91.041 Radiographic dye allergy status
CPT/HCPCS: 36415; 71045; 80048; 83735; 83880; 84132; 84484; 85025; 85610; 90471; 90732; 93005; 99285; J0282; J2175; J2250; J2270; J3475; J3480; J7040; J7060; U0003

== ENCOUNTER 2022-02-27 07:30 | Day surgery (SDC) | payer OTHER ==
[2022-02-26 14:50] LABS: Potassium 4.6 mmol/L (3.5-5.1)
[~2022-02-27 07:30] MED LIST changes: +ATROPINE SULF 1 MG/10 ML SYR IV ONE; +FENTANYL CITR 100 MCG/2 ML ONE; -HEPA 1000U/500MLS 2,000 UNIT/1,000 ML BAG IV ONE; +METOPROLOL TARTRATE 5 MG/5 ML INJ IV ONE; +MIDAZOLAM HCL 10 ML ONE; +MIDAZOLAM HCL 2 MG/2 ML INJ ONE
[2022-02-27] MEDS ORDERED: NA CHLORIDE 0.9% 500 ML ONE (08:51)
[2022-02-27 10:38] VITALS: TEMP 97
[2022-02-27 10:39] VITALS: BP 145/67; O2SAT 97
--- NOTE | 2022-02-28 14:57 | OP ---
Surgeon: Scott Kelley MD [employer]anal[employer] Team Lead: Ms. Viky Wallace. Procedure: Direct current cardioversion. Indication: Atrial fibrillation. History Of Present Illness: Ms. Staton is 77, had failed amiodarone. She is status post Watchm an for paroxysmal atrial fibrillation. She is not on anticoagulation. She has been on IV amiodarone as well as 100 mg p.o. b.i.d. for a week and she remained in atrial fibrillation. She is now on 200 mg twice a day. Procedure In Detail: Ms. Staton was brought to the recovery room today and underwent sedation w ith 11 mg of Versed. She received 1 shock of 200 joules and she converted to sinus rhythm. The ivory ent tolerated the procedure well without any complication. Final Diagnosis: Status post successful cardioversion of atrial fibrillation to sinus rhythm. She d oes not need anticoagulation. We will continue amiodarone 200 b.i.d. She can go home when she wakes up. I will see her in the office in 2 weeks. RADHA/STEPHANI Voice ID: [id number] Report ID: [id number]
--- NOTE | 2022-03-01 09:00 | EKG ---
Test Date: 2022-02-27 Test Time: 09:09:58 Abattoir Manager: NIXON MEASUREMENT RESULTS: Intervals: Rate: 64 PA: 148 QRSD: 74 QT: 452 QTc: 466 [place]: P: -29 PA: 148 QRS: 13 T: 70 INTERPRETIVE STATEMENTS: Normal sinus rhythm Normal ECG Compared to ECG 02/19/2022 07:43:16 Sinus arrhythmia no longer present Myocardial infarct finding no longer present Prolonged QT interval no longer present Electronically Signed On 03-01-22 08:55:47 CDT by Scott Kelley
== END 2022-02-27 10:30 | disposition home or self-care (01) ==
LOC: CCL 07:30
DX: I48.91 Unspecified atrial fibrillation (principal); I50.9 Heart failure, unspecified; F17.210 Nicotine dependence, cigarettes, uncomplicated; Z79.82 Long term (current) use of aspirin; Z88.3 Allergy status to other anti-infective agents; Z88.6 Allergy status to analgesic agent; Z79.899 Other long term (current) drug therapy; Z20.822 Contact with and (suspected) exposure to COVID-19; Z82.49 Family history of ischemic heart disease and other diseases of the circulatory system
CPT/HCPCS: 93005; 80048; 36415; 85730; 92960; U0003; J2250 ×2; J7040; J3010

== ENCOUNTER 2022-03-03 09:45 | Observation (INO) | payer OTHER ==
--- OUTSIDE RECORDS SUMMARY | 2022-03-03 09:50 | XMS REPORT | Continuity of Care Document ---
:1945 Author Organization [facility] t Address [address] [place] [address] Care Team Providers Name Role Phone Unknown Primary Care Physician Unavailable GLADIS Attending Clinician Unavailable Chayo Attending Clinician Unavailable [id number] Attending Clinician Unavailable LUBA CONNELL Attending Clinician Unavailable Galindo Attending Clinician Unavailable NOHEMI VELEZ Attending Clinician Unavailable Cabrera Linda Admitting Clinician Unavailable Physician, Primary or Family Admitting Clinician Unavailabl e [id number] Admitting Clinician Unavailable LUBA CONNELL Admitting Clinician Unavailable Chayo Admitting Clinician Unavailable Payers Payer Name Policy Type Policy Number Effective Date Expiration Date S juan [employer] MEDICARE [id number] 2020 2024 PPO 00:00:00 00:00:00 Problems Condition [...] Allergie 3-07 Clear s 00:00: Sampson 00 [facility] codeine DA Active [place] [facility] 307 Clear HERNIA 00:00: Sampson 00 [facility] Codeine Allergy Active Unknown [place] to 03-30 [facility] 00:00: e 00 Social History Social Habit Start Date Stop Date Quantity Comments Source Tobacco use and 2021-06-28 2021-06-28 Smokeless tobacco [facility] exposure 00:00:00 00:00:00 non-user Sex Assigned At 1945 [address] [facility] 00:00:00 00:00:00 Smoking Status Start Date Stop Date Source Smokes tobacco daily 2021-06-28 00:00:00 [facility] Medications Ordered Filled Start Stop Current Ordering Indication Dosage Frequency Signature Comments Components Source Medication Medication Date Date Medication? Clinician (SIG) Name Name acetaminoph Yes [id number] 1{tbl} Take 1 [place] en-codeine 5-02 tablet by [facility] (TYLENOL/CO 00:00: mouth DEINE #3) 00 every 4 300-30 MG (four) tablet hours if needed for severe pain. naloxone 2022- No [id number] .4mg Administer [place] (Narcan) 2 11-18 03-08 0.4 mL Health MG/2ML 00:00: 05:59 (0.4 mg injection 00 :00 total) into affected nostril(s) if needed for opioid reversal. May repeat every 2-3 minutes as needed until medical assistance available. naloxone 2022- No [id number] .4mg Administer [place] (Narcan) 2 11-18-08 0.4 mL Health MG/2ML 00:00: 05:59 (0.4 mg injection 00 :00 total) into affected nostril(s) if needed for opioid reversal. May repeat every 2-3 minutes as needed until medical assistance available. naloxone 2022- No [id number] .4mg Administer [place] (Narcan) 2 11-18- 0.4 mL Health MG/2ML 00:00: 05:59 (0.4 mg injection 00 :00 total) into affected nostril(s) if needed for opioid reversal. May repeat every 2-3 minutes as needed until medical assistance available. naloxone 2022- No [id number] .4mg Administer UT (Narcan) 2 11-18 0.4 mL Health MG/2ML 00:00: 05:59 (0.4 mg injection 00 :00 total) into affected nostril(s) if needed for opioid reversal. May repeat every 2-3 minutes as needed until medical assistance available. traMADol 2021- No [id number] 50mg Take 1 UT (Ultram) 50 11-18 [...] 12:07: 12 Apixaban 2020-[address] (ELIQUIS 2-06 mouth. Health PO) 12:07: 12 ASPIRIN 2020-[address] ADULT PO 2-06 mouth. Health 12:07: 12 traMADol 2020-09- No [id number] 50mg Take 1 U T (Ultram) 50 1-02 11-08 tablet (50 H ealth MG tablet 00:00: 05:59 mg total) 00 :00 by mouth every 8 (eight) hours if needed for severe pain for up to 5 days. traMADol 2020-09- No [id number] 50mg Q6H Take 1 U T (Ultram) [...] / Time Performed Performing Clinician Ronald phillips [id number] 2021-11-20 00:00:00 ALDMO [facility] Encounters Start End Encounter Admission Attending Care Care Encounter Source Date/Time Date/Time Type Type Clinicians Facility Department ID 2022-02-06 Outpatient [facility] [id number] CT 08:35:[id number] [facility] 2022-01-30 Outpatient [facility] [id number] CT 08:25:[id number] [facility] 2022-01-13 [facility] [id number] CT 08:01:11 ARASH [id number] [facility] 2022-01-10 [facility] [id number] CT 01:05:02 ARASH [id number] [facility] 2022-01-08 Outpatient [facility] [id number] CT 08:51:[id number] [facility] 2022-01-01 [facility] [id number] CT 08:50:28 ARASH [id number] [facility] 2021-12-16 Inpatient HECTOR OlmosBERONICA OUTD [id number] [facility] 10:30:00 Ortiz [id number] [facility] 2021-12-05 [facility] [id number] [place] 13:45:58 ARASH [id number] [facility] 2021-12-04 [facility] [id number] [place] 08:40:17 ARASH [id number] [facility] 2021-12-03 Out[facility] [id number] [place] 12:29:19 ARASH [id number] [facility] 2021-11-21 Outpatient [facility] [id number] [place] 10:56:[address] [facility] 2021-11-21 Outpatient [facility] [id number] [place] 10:55:[address] [facility] 2021-11-18 Inpatient TRINI Olmos OUTD [id number] [facility] 13:00:00 Ortiz [id number] [facility] 2021-10-22 Outpatient [id number] ENC[facility] CRD [id number] [facility] 10:32:05 2072021-10-16 Outpatient [id number] [facility] REF [id number] [facility] 10:31:34 2012021-10-01 Outpatient GLADIS [facility] [id number] [place] 01:05:41 [facility] 2021-09-27 Inpatient GLADIS MHSE MHSE [id number] 14:57:03 [facility] 2021-09-24 Outpatient GLADIS [facility] [id number] [place] 14:24:58 [facility] 2021-09-16 Outpatient [facility] [id number] [place] 08:56:[address] [facility] 2021-09-16 Outpatient [facility] [id number] [place] 08:54:[address] [facility] 2021-08-19 Outpatient GLADIS, [facility] [id number] [place] 07:57:20 [facility] 2021-08-19 Outpatient [facility] [id number] CT 07:56:[address] [facility] 2021-08-19 Outpatient [facility] [id number] CT 07:55:[address] [facility] 2021-07-23 Outpatient [facility] [id number] [place] 10:43:[address] [facility] 2021-07-23 Outpatient GLADIS, [facility] [id number] [place] 10:42:25 [facility] 2021-07-23 Outpatient [facility] [id number] [place] 10:36:[address] [facility] 2022-01-13 2022-01-13 Office ESPERANZA Connell [facility] [id number] 10:00:00 10:15:00 Visit Arash SAMPSON [id number] rickey CONN 9.2.7.2.686 [facility] [id number] 2022-01-01 2022-01-01 Telephonic ESPERANZA Connell [id number] [place] 07:45:00 08:52:16 Encounter Arash BROTHERS [id number] [facility] [id number] 2021-12-18 2021-12-18 Outpatient HECTOR OlmosCL OUTD [id number] [facility] 05:16:00 05:16:00 Ortiz [id number] [facility] 2021-12-18 2021-12-18 Outpatient ANISA Domingo, HCACL HCACL [id number] [facility] 05:16:00 05:16:00 Ortiz 70 [facility] 2021-12-04 2021-12-04 Telephonic ESPERANZA Connell [id number] [place] 07:45:00 08:47:54 Encounter Arash BROTHERS [id number] [facility] CLINIC [id number] 2021-11-20 2021-11-21 Inpatient ANISA Medley, HCACL INTE.02 [id number] [facility] 14:27:00 13:39:00 [facility] [id number] [facility] 2021-11-20 2021-11-21 Inpatient ANISA Medley, HCACL INTE.02 [id number] [facility] 14:27:00 13:39:00 [facility] 2021-11-18 2021-11-18 Office ESPERANZA CONNELL [facility] [id number] [place] 10:00:00 10:15:00 Visit ARASH SAMPSON [id number] He alth FABIEN 9.2.7.2.686 [facility] [id number] 2021-11-06 2021-11-06 Office ESPERANZA Connell [id number] [place] 10:45:00 11:24:42 Visit Arash BROTHERS [id number] He [facility] CLINIC [id number] [id number] 2021-09-27 2021-09-27 Emergency E BARTSOFF, MHSE MHSE [id number] 16:11:00 16:11:00 [facility] 2021-07-16 2021-07-16 Office ESPERANZA Connell [facility] [id number] [place] 09:51:23 10:45:55 Visit Arash GAVIN [id number] He alth [place] 1 9.2.7.2.686 [id number] 2021-06-28 2021-06-28 Office ESPERANZA Connell [facility] [id number] UT 09:49:14 10:45:59 Visit Arash [facility] [id number] He rickey LOZANO 1 [id number] [id number] Results Test Description Test Time Test [...] x10 3/uL 0.0-0.1 N NRBC#) BASIC METABOLIC [id number] 15:06:00 Test Item Value Reference Range Interpretation [...] code = 8.4 mg/dL 8.0-10.5 N CA) [id number] 12:54:00 Test Item Value Reference Range Interpretation Comments ACT-ISTAT (test code 273 SEC 74-137 H Perform ed 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 = ACTI) agency operator at [facility] [id number] 12:41:00 Test Item Value Reference Range Interpretation Comments ACT-ISTAT (test code 273 SEC 74-137 H Perform ed 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 = ACTI) agency operator at [facility] [id number] 12:27:00 Test Item Value Reference Range Interpretation Comments ACT-ISTAT (test code 249 SEC 74-137 H Perform ed 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 = ACTI) agency operator at [facility] COVID 19 Asymptomatic IH [id number] 09:36:00 Test Item Value Reference Range Interpretation [...] high or waivedcomplexit y tests. BASIC METABOLIC [id number] 12:47:00 Test Item Value Reference Range Interpretation [...] = 8.4 mg/dL 8.0-10.5 N CA) PROTHROMBIN [id number] 12:47:00 Test Item Value Reference Range Interpretation [...] o prevent recurre nt infarct). CBC W/AUTO [id number] 12:33:00 Test Item Value Reference Range Interpretation [...] DIFF REQUIRED (test code NO = MDIFF) [id number] 08:53:00 Test Item Value Reference Range Interpretation Comments ACT-ISTAT (test code 148 SEC 74-137 H Perform ed 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 = ACTI) agency operator at [facility] BASIC METABOLIC [id number] 07:56:00 Test Item Value Reference Range Interpretation [...] 8.7 mg/dL 8.0-10.5 N CA) CBC W/AUTO [id number] 06:58:00 Test Item Value Reference Range Interpretation [...] = 0.00 x10 3/uL 0.0-0.1 N NRBC#) [id number] 13:45:00 Test Item Value Reference Range Interpretation Comments ACT-ISTAT (test code 261 SEC 74-137 H Perform ed 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 = ACTI) agency operator at [facility] - XR CHEST 1 [id number] 00:00:00 [facility] 1945 Sex: F FAX: Jayy Jefferson MD [phone] [place]: St: ADM FAX: Ortiz Glasgow MD [phone] FAX: Alan Toussaint [phone] Name: EDUARDO LA [facility] [place] : 1945 Age/S: 76/F [address] [place] [address] Unit #: [id number] Loc: [place] [address] Phys: Alan Toussaint Acct: [id number] Dis Date: Status: ADM IN PHONE #: [phone] Exam Date: 11/20/2021 1558 FAX #: [phone] Reason: WATCHMAN EXAMS: CPT CODE: [id number] XR CHEST 1 V 49699 PROCEDURE INFORMATION: Exam: XR Chest Exam date [...] Brooke Beaver M.D. CC: Jayy Linda MD; rOtiz Domingo MD; Alan Toussaint Technologist: RT lAexis(R) Trnscrd Date/Time/By: 11/20/2021 (2323) : By: [email or web address] Orig Print D/T: S: 11/20/2021 (9486) PAGE 1 Signed ReportPREALBUMIN 2021-11-18 15:14:00 Test Item Value Reference Range Interpretation Comments PREALBUMIN (test code = PREALB) 12.4 mg/dL 16.0-40.0 L BASIC METABOLIC [id number] 15:14:00 Test Item Value Reference Range Interpretation [...] = 8.3 mg/dL 8.0-10.5 N CA) PROTHROMBIN [id number] 15:06:00 Test Item Value Reference Range Interpretation [...] o prevent recurre nt infarct). CBC W/AUTO [id number] 14:51:00 Test Item Value Reference Range Interpretation [...] 0.0-0.1 N NRBC#) - XR CHEST 2 [id number] 00:00:00 [facility] IRENA : 1945 Sex: F FAX: Jayy Jefferson MD [phone] [place]: St: PRE FAX: Ortiz Glasgow MD [phone] Name: EDUARDO LA [facility] : 1945 Age/S: 76/F [address] [place] [address] Unit #: [id number] Loc: [place] [address] Phys: Ortiz Domingo MD Acct: [id number] Dis Date: Status: PRE [facility] PHONE #: [phone] Exam Date: 11/18/2021 4228 FAX #: [phone] Reason: PREOP EXAMS: CPT CODE: [id number] XR CHEST 2 V 79572 PROCEDURE INFORMATION: Exam: XR Chest Exam date [...] of acute cardiopulmonary disease. SL: 131 at 1866 Reported and signed by: Saad Arboleda M.D. CC: Jayy Linda MD; Ortiz Domingo MD Technologist: RT Bayron(R) Trnscrd Date/Time/By: 11/18/2021 (3866) : By: Richi Orig Print D/T: S: 11/18/2021 (2535) PAGE 1 Signed Report
[2022-03-03] MEDS ORDERED: NA CHLORIDE 0.9% 500 ML ONE (10:14)
[2022-03-03] MEDS ORDERED: NA CHLORIDE 0.9% 1,000 ML ONE (10:14)
--- NOTE | 2022-03-03 11:01 | RAD REPORT ---
EXAM DESCRIPTION: RAD - Chest Single View - 03/03/2022 10:27 am CLINICAL HISTORY: COUGH COMPARISON: Portable 02/17/2022 TECHNIQUE: AP portable chest image was obtained 03/03/2022 10:27 am . FINDINGS: Chronic baseline interstitial lung pattern is seen with no superimposed mass or consolidat ion. Interstitial pattern is similar to comparison. Heart and vasculature are normal. No measurable p leural effusion and no pneumothorax. No acute bony abnormality seen. No acute aortic findings suspect ed. IMPRESSION: No acute cardiopulmonary process. No significant change from comparison study.
[2022-03-03 11:03] LABS: Absolute Lymphocytes (CBC) 0.7 K/uL (0.7-4.9); Hematocrit 34.4 % (36.0-45.0); Lymphocytes % 11.1 % (15.3-44.8); MPV 7.7 fL (7.6-11.3); RBC Red Blood Cell Count 4.82 M/uL (3.86-4.86)
[2022-03-03 11:06] LABS: Protime INR 0.97
[2022-03-03 11:28] LABS: Albumin 3.2 g/dL (3.4-5.0); Bilirubin Direct 0.1 mg/dL (0-0.2); Bilirubin Total 0.3 mg/dL (0.2-1.0); Magnesium 2.1 mg/dL (1.8-2.4); Potassium 3.6 mmol/L (3.5-5.1); Protein, Total 7.6 g/dL (6.4-8.2)
--- NOTE | 2022-03-03 11:28 | ER ---
Nurse's Notes [facility] Name: Neela Staton Age: 77 yrs Sex: Female : 1945 Arrival Date: 03/03/2022 Time: 09:46 Bed 2 Private MD: James Linda C Diagnosis: Weakness;Paroxysmal atrial fibrillation;Low back pain;Unspecified kidney failure Presentation: 03/03 10:00 Chief complaint: Patient states: "Dr. Tracy did a cardioversion recently and today I jd3 am back in A-fib and having some low blood pressure. we called his office and they said to come to the ER and probably get transfer for a pacemaker placement.". Coronavirus screen: At this time, the client does not indicate any symptoms associated with coronavirus-19. Ebola Screen: No symptoms or risks identified at this time. Initial Sepsis Screen: Does the patient meet any 2 criteria? No. Patient's initial sepsis screen is negative. Does the patient have a suspected source of infection? No. Patient's initial sepsis screen is negative. Risk Assessment: Do you want to hurt yourself or someone else? Patient reports no desire to harm self or others. Onset of symptoms was March 03, 2022. 10:00 Method Of Arrival: Wheelchair jd3 10:00 Acuity: BETHANY 2 jd3 Historical: - Allergies: 10:02 Codeine; jd3 - PMHx: 10:02 Atrial fibrillation; Depression; GERD; High Cholesterol; Hypertensive disorder; jd3 Hypothyroidism; neuropathy; - PSHx: 10:02 heart stent; right leg stent; jd3 - Immunization history:: Adult Immunizations up to date, Client reports receiving the 2nd dose of the Covid vaccine, Pneumococcal vaccine is up to date. - Social history:: Smoking status: Patient/guardian denies using tobacco, Stopped _ months ago 7. Screenin:04 Abuse screen: Denies threats or abuse. Nutritional screening: No deficits noted. jd3 Tuberculosis screening: No symptoms or risk factors identified. Fall Risk Ambulatory Aid- None/Bed Rest/Nurse Assist (0 pts). Gait- Weak (10 pts.). Mental Status- Oriented to own ability (0 pts). Total Ingram Fall Scale indicates No Risk (0-24 pts). Assessment: 10:03 General: Appears in no apparent distress. uncomfortable, Behavior is calm, cooperative, jd3 appropriate for age, Reports general weakness/fatigue. Pain: Complains of pain in chest Quality of pain is described as aching, pressure. Neuro: Wade Agitation-Sedation Scale (RASS): 0 - Alert and Calm Level of Consciousness is awake, alert, obeys commands, Oriented to person, place, time, situation. Cardiovascular: Heart tones present Capillary refill < 3 seconds Patient's skin is warm and dry. Rhythm is atrial fibrillation. Respiratory: Reports shortness of breath Airway is patent Respiratory effort is even, unlabored, Respiratory pattern is regular, symmetrical, Breath sounds are clear bilaterally. Denies cough. GI: No signs and/or symptoms were reported involving the gastrointestinal system. : No signs and/or symptoms were reported regarding the genitourinary system. EENT: No signs and/or symptoms were reported regarding the EENT system. Derm: Skin is intact, Skin is dry, Skin is normal, Skin temperature is warm. Musculoskeletal: Circulation, motion, and sensation intact. Range of motion: intact in all extremities. 10:11 Cardiovascular: Rhythm is sinus rhythm. jd3 11:21 Reassessment: Patient appears in no apparent distress at this time. No changes from jd3 previously documented assessment. Patient and/or family updated on plan of care and expected duration. Pain level reassessed. Patient is alert, oriented x 3, equal unlabored respirations, skin warm/dry/pink. 12:53 Reassessment: Patient appears in no apparent distress at this time. No changes from jd3 previously documented assessment. Patient and/or family updated on plan of care and expected duration. Pain level reassessed. Patient is alert, oriented x 3, equal unlabored respirations, skin warm/dry/pink. 12:54 Cardiovascular: Rhythm is atrial fibrillation. jd3 13:07 Reassessment: pt medicated with home meds per list from recent discharge. meds jd3 confirmed with pt. 13:54 Reassessment: Patient appears in no apparent distress at this time. No changes from jd3 previously documented assessment. Patient and/or family updated on plan of care and expected duration. Pain level reassessed. Patient is alert, oriented x 3, equal unlabored respirations, skin warm/dry/pink. 14:00 Reassessment: report attempt made. was told Rochelle JANG will call back. jd3 Vital Signs: 10:03 BP 152 / 89; Pulse 118; Resp 18 S; Temp 97.9(O); Pulse Ox 100% on R/A; Weight 66.68 kg jd3 (R); Height 5 ft. 7 in. (170.18 cm) (R); Pain 3/10; 10:12 Pulse 73; jd3 11:21 BP 183 / 73; Pulse 66; Resp 17 S; Pulse Ox 100% on R/A; jd3 12:53 BP 162 / 105; Pulse 105; Resp 18 S; Pulse Ox 100% on R/A; jd3 13:54 BP 156 / 94; Pulse 107; Resp 16 S; Pulse Ox 100% on R/A; jd3 10:03 Body Mass Index 23.02 (66.68 kg, 170.18 cm) jd3 12:53 provider notified of eleveated heart rate jd3 ED Course: 09:46 Patient arrived in ED. am2 09:47 James Linda MD is Private Physician. am2 09:47 Unruly Veras MD is Attending Physician. melchor 09:54 Maury Garcia, SUHAIL is Primary Nurse. jd3 10:02 Triage completed. jd3 10:03 Arm band placed on. EKG completed in triage. Results shown to MD. jd3 10:04 Patient has correct armband on for positive identification. Bed in low position. Call j light in reach. Side rails up X2. Adult w/ patient. Client placed on continuous cardiac and pulse oximetry monitoring. NIBP monitoring applied. vehicle monitor technician on. Pulse ox on. NIBP on. 10:12 EKG done, by ED staff, reviewed by Unruly Veras MD. mb7 10:28 XRAY Chest (1 view) In Process Unspecified. EDMS 10:29 Missed attempt(s): 20 gauge in right forearm. Bleeding controlled, band aid applied, em1 catheter tip intact. 10:48 Inserted saline lock: 22 gauge in left forearm, using aseptic technique. Blood jd3 collected. 11:26 James Linda MD is Hospitalizing Provider. melchor 13:53 No provider procedures requiring assistance completed. Patient admitted, IV remains in jd3 place. Administered Medications: 10:48 Drug: NS 0.9% 500 ml Route: IV; Rate: bolus; Site: left forearm; jd3 10:48 Drug: NS 0.9% 1000 ml Route: IV; Rate: 125 ml/hr; Site: left forearm; jd3 12:46 Drug: Lovenox (enoxaparin) 60 mg Route: Sub-Q; Site: abdomen; jd3 12:46 Drug: Aspirin 81 mg Route: PO; jd3 12:46 Drug: Brilinta - Ticagrelor 90 mg Route: PO; jd3 13:04 Drug: amiodarone 200 mg Route: PO; jd3 13:04 Drug: amLODIPine 10 mg Route: PO; jd3 13:04 Drug: Lisinopril 20 mg Route: PO; jd3 13:04 Drug: Furosemide 40 mg Route: PO; jd3 13:04 Drug: Magnesium 400 mg Route: PO; jd3 Medication: 10:04 VIS not applicable for this client. jd3 Outcome: 11:28 Decision to Hospitalize by Provider. melchor 14:47 Admitted to Tele accompanied by tech, via stretcher, room 216, with chart, Report jd3 called to Alecia JANG 14:47 Condition: stable 14:47 Instructed on the need for admit. 15:00 Patient left the ED. jd3 Signatures: Dispatcher [employer] Unruly Mandujano MD MD cha Martinez, Eric em1 Nazanin Mendoza am2 Maury Garcia RN RN Isabela Dennis mb7
--- NOTE | 2022-03-03 11:28 | EDPHYS ---
Physician Documentation [facility] Name: Neela Staton Age: 77 yrs Sex: Female : 1945 Arrival Date: 03/03/2022 Time: 09:46 Bed 2 Private MD: James Linda C ED Physician Unruly Veras HPI: 03/03 10:15 This 77 yrs old Female presents to ER via Wheelchair with complaints of afib, melchor Blood Pressure Problem - LOW, Back Pain. 10:15 The patient presents with pain that is chronic. melchor Historical: - Allergies: 10:02 Codeine; jd3 - PMHx: 10:02 Atrial fibrillation; Depression; GERD; High Cholesterol; Hypertensive disorder; jd3 Hypothyroidism; neuropathy; - PSHx: 10:02 heart stent; right leg stent; jd3 - Immunization history:: Adult Immunizations up to date, Client reports receiving the 2nd dose of the Covid vaccine, Pneumococcal vaccine is up to date. - Social history:: Smoking status: Patient/guardian denies using tobacco, Stopped _ months ago 7. ROS: 10:16 Constitutional: Negative for fever, chills, and weight loss, Eyes: Negative for injury, melchor pain, redness, and discharge, ENT: Negative for injury, pain, and discharge, Neck: Negative for injury, pain, and swelling, Respiratory: Negative for shortness of breath, cough, wheezing, and pleuritic chest pain, Abdomen/GI: Negative for abdominal pain, nausea, vomiting, diarrhea, and constipation, Back: Negative for injury and pain, : Negative for injury, bleeding, discharge, and swelling, MS/Extremity: Negative for injury and deformity, Skin: Negative for injury, rash, and discoloration, Psych: Negative for depression, anxiety, suicide ideation, homicidal ideation, and hallucinations, Allergy/Immunology: Negative for hives, rash, and allergies, Endocrine: Negative for neck swelling, polydipsia, polyuria, polyphagia, and marked weight changes, Hematologic/Lymphatic: Negative for swollen nodes, abnormal bleeding, and unusual bruising. 10:16 Cardiovascular: Positive for palpitations. 10:16 Neuro: Positive for weakness. Exam: 10:16 Constitutional: This is a well developed, well nourished patient who is awake, alert, melchor and in no acute distress. Head/Face: Normocephalic, atraumatic. Eyes: Pupils equal round and reactive to light, extra-ocular motions intact. Lids and lashes normal. Conjunctiva and sclera are non-icteric and not injected. Cornea within normal limits. Periorbital areas with no swelling, redness, or edema. ENT: Nares patent. No nasal discharge, no septal abnormalities noted. Tympanic membranes are normal and external auditory canals are clear. Oropharynx with no redness, swelling, or masses, exudates, or evidence of obstruction, uvula midline. Mucous membranes moist. Neck: Trachea midline, no thyromegaly or masses palpated, and no cervical lymphadenopathy. Supple, full range of motion without nuchal rigidity, or vertebral point tenderness. No Meningismus. Chest/axilla: Normal chest wall appearance and motion. Nontender with no deformity. No lesions are appreciated. Cardiovascular: Regular rate and rhythm with a normal S1 and S2. No gallops, murmurs, or rubs. Normal PMI, no JVD. No pulse deficits. Respiratory: Lungs have equal breath sounds bilaterally, clear to auscultation and percussion. No rales, rhonchi or wheezes noted. No increased work of breathing, no retractions or nasal flaring. Abdomen/GI: Soft, non-tender, with normal bowel sounds. No distension or tympany. No guarding or rebound. No evidence of tenderness throughout. Back: No spinal tenderness. No costovertebral tenderness. Full range of motion. Skin: Warm, dry with normal turgor. Normal color with no rashes, no lesions, and no evidence of cellulitis. MS/ Extremity: Pulses equal, no cyanosis. Neurovascular intact. Full, normal range of motion. Neuro: Awake and alert, GCS 15, oriented to person, place, time, and situation. Cranial nerves II-XII grossly intact. Motor strength 5/5 in all extremities. Sensory grossly intact. Cerebellar exam normal. Normal gait. Psych: Awake, alert, with orientation to person, place and time. Behavior, mood, and affect are within normal limits. 10:16 Musculoskeletal/extremity: DVT Exam: No signs of deep vein thrombosis. no pain, no swelling, no tenderness, negative Homans' sign noted on exam, no appreciated bluish discoloration, no erythema, no increased warmth. 10:19 ECG was reviewed by the Attending Physician. [facility] Vital Signs: 10:03 BP 152 / 89; Pulse 118; Resp 18 S; Temp 97.9(O); Pulse Ox 100% on R/A; Weight 66.68 kg jd3 (R); Height 5 ft. 7 in. (170.18 cm) (R); Pain 3/10; 10:12 Pulse 73; jd3 11:21 BP 183 / 73; Pulse 66; Resp 17 S; Pulse Ox 100% on R/A; jd3 12:53 BP 162 / 105; Pulse 105; Resp 18 S; Pulse Ox 100% on R/A; jd3 13:54 BP 156 / 94; Pulse 107; Resp 16 S; Pulse Ox 100% on R/A; jd3 10:03 Body Mass Index 23.02 (66.68 kg, 170.18 cm) jd3 12:53 provider notified of eleveated heart rate jd3 MDM: 09:47 Patient medically screened. [facility] 10:20 Differential diagnosis: arrythmia, dehydration, chronic back pain, Fatigue melchor Osteoarthritis. Data reviewed: vital signs, nurses notes, lab test result(s), EKG, radiologic studies, plain films. Data interpreted: software administrator: rate is 73 beats/min, rhythm is regular, Pulse oximetry: on room air is 100 %. Test interpretation: by ED physician or midlevel provider: ECG, plain radiologic studies. Counseling: I had a detailed discussion with the patient and/or guardian regarding: the historical points, exam findings, and any diagnostic results supporting the discharge/admit diagnosis, lab results, radiology results, the need for further work-up and treatment in the hospital. 03/03 09:54 Order name: Basic Metabolic Panel [facility] 03/03 09:54 Order name: CBC with Diff [facility] 03/03 09:54 Order name: LFT's [facility] 03/03 09:54 Order name: Magnesium [facility] 03/03 09:54 Order name: NT PRO-BNP [facility] 03/03 09:54 Order name: PT-INR; Complete Time: 11:19 [facility] 03/03 09:54 Order name: Troponin HS [facility] 03/03 09:54 Order name: XRAY Chest (1 view); Complete Time: 11:05 [facility] 03/03 09:54 Order name: TSH [facility] 03/03 10:22 Order name: SARS-COV-2 RT PCR (Document "Date of Onset" if Symptomatic) [facility] 03/03 11:36 Order name: T4 Free [facility] 03/03 12:05 Order name: Manual Differential [facility] 03/03 09:54 Order name: EKG; Complete Time: 09:54 [facility] 03/03 09:54 Order name: Cardiac monitoring; Complete Time: 10:05 [facility] 03/03 09:54 Order name: EKG - Nurse/Tech; Complete Time: 10:05 [facility] 03/03 09:54 Order name: IV Saline Lock; Complete Time: 10:49 [facility] 03/03 09:54 Order name: Labs collected and sent; Complete Time: 10:49 [facility] 03/03 09:54 Order name: O2 Per Protocol; Complete Time: 10:06 [facility] 03/03 09:54 Order name: O2 Sat Monitoring; Complete Time: 10:05 [facility] 03/03 11:44 Order name: CONS Physician Consult EDMS EC:19 Rate is 76 beats/min. Rhythm is regular. QRS [place] is Normal. CA interval is normal. QRS melchor interval is normal. QT interval is normal. No Q waves. T waves are Normal. No ST changes noted. Clinical impression: Normal ECG and No evidence of ischemia. Interpreted by me. Reviewed by me. Administered Medications: 10:48 Drug: NS 0.9% 500 ml Route: IV; Rate: bolus; Site: left forearm; jd3 10:48 Drug: NS 0.9% 1000 ml Route: IV; Rate: 125 ml/hr; Site: left forearm; jd3 12:46 Drug: Lovenox (enoxaparin) 60 mg Route: Sub-Q; Site: abdomen; jd3 12:46 Drug: Aspirin 81 mg Route: PO; jd3 12:46 Drug: Brilinta - Ticagrelor 90 mg Route: PO; jd3 13:04 Drug: amiodarone 200 mg Route: PO; jd3 13:04 Drug: amLODIPine 10 mg Route: PO; jd3 13:04 Drug: Lisinopril 20 mg Route: PO; jd3 13:04 Drug: Furosemide 40 mg Route: PO; jd3 13:04 Drug: Magnesium 400 mg Route: PO; jd3 Disposition Summary: 03/03/22 11:28 Hospitalization Ordered Hospitalization Status: Observation melchor Provider: James Linda cha Location: Telemetry/MedSurg (observation) melchor Condition: Fair melchor Problem: new melchor Symptoms: have improved melchor Bed/Room Type: Standard melchor Room Assignment: 216(03/03/22 13:41) dw Diagnosis - Weakness melchor - Paroxysmal atrial fibrillation melchor - Low back pain melchor - Unspecified kidney failure melchor Forms: - Medication Reconciliation Form melchor - SBAR form melchor Signatures: Dispatcher [employer] Violet Bloom RN RN dw Anderson, Corey, MD MD cha Davies, Jonathon, RN RN jd3 Corrections: (The following items were deleted from the chart) 13:41 11:28 melchor dw
[2022-03-03 11:30] LABS: Troponin High Sensitivity 272.4 pg/mL (<58.9)
[2022-03-03 11:34] LABS: Thyroid Stimulating Hormone 20.6 uIU/mL (0.360-3.740)
[2022-03-03 12:05] LABS: Anisocytosis SLIGHT; Blood Morphology Comment NOTED (NOT SEEN); Hypochromasia 1+; Platelet Estimate ADEQ
[2022-03-03] MEDS ORDERED: ENOXAPARIN 60 MG/0.6 ML SQ ONE (12:20)
[2022-03-03] MEDS ORDERED: ASPIRIN EC 81 MG TAB PO ONE (12:20)
[2022-03-03] MEDS ORDERED: TICAGRELOR 90 MG TABLET PO ONE (12:20)
[2022-03-03] MEDS ORDERED: AMLODIPINE 10 MG TAB ONE (13:06)
[2022-03-03] MEDS ORDERED: MAGNESIUM OXIDE 400 MG TAB ONE (13:06)
[2022-03-03] MEDS ORDERED: lisinopriL 20 MG TAB ONE (13:06)
[2022-03-03] MEDS ORDERED: AMIODARONE HCL 200 MG TAB ONE (13:06)
[2022-03-03] MEDS ORDERED: FUROSEMIDE 40 MG TABLET ONE (13:06)
[2022-03-03] MEDS: NA CHLORIDE 0.9% 1,000 ML IV SCH ×2 (15:47→22:07)
[2022-03-03] MEDS ORDERED: ONDANSETRON 4 MG/2 ML VIAL IV PRN (15:47)
[2022-03-03] MEDS ORDERED: ACETAMINOPHEN 325 MG TABLET PO PRN (15:52)
[2022-03-03] MEDS ORDERED: MORPHINE 2 MG/ML SYR IV PRN (15:53)
[2022-03-03 16:19] VITALS: BMI 23.0
--- NOTE | 2022-03-03 19:25 | CON ---
Date of Consultation: 03/03/2022 Reason For Consultation: Atrial fibrillation. History Of Present Illness: A 77-year-old female with history of atrial fibrillation, coronary arter y disease status post PCI in the past, peripheral vascular disease, and she is status post interventi on on her lower extremity and Watchman placement, presented with palpitations, shortness of breath on exertion, found to be in atrial fibrillation with rapid ventricular response. The patient was cardi overted recently back into atrial fibrillation. Past Medical History: As outlined above in the HPI. Medications: Refer to reconciliation sheet for detailed list. Allergies: CODEINE. Family History: No premature coronary artery disease or cancer. Social History: Does not drink, use any drugs. Review of Systems: All systems reviewed and they were negative except for what mentioned in HPI. Physical Examination: Vital Signs: Reviewed. Head and Neck: Pupils are equal, reactive to light. Intact eye movements. No JVD. No cervical lym phadenopathy. Neck is supple. Thyroid is not enlarged. Lungs: Clear to auscultation bilaterally. No rhonchi, wheezing, or crackles. No accessory muscle u se. Heart: Irregularly irregular. No extra sounds. Abdomen: Soft, nontender. Bowel sounds positive. No organomegaly. No masses or hernia. No rigidi ty or rebound. Extremities: No clubbing or cyanosis. Intact pulses. Skin: No rash. Neurologic: Alert, awake, oriented x3. No acute focal deficits appreciated. Investigations: Labs were reviewed. Troponin is 272. BNP is 450 and hemoglobin is 11.1. Assessment And Recommendations: 1.Atrial fibrillation with rapid ventricular response. Recommend to load again with IV amiodarone a nd monitor carefully on telemetry and monitor liver function tests while doing that and we will plan for outpatient atrial fibrillation ablation since she is having recurrent hospitalization due to rapi d atrial fibrillation. 2.Elevated troponins. No chest pain. Trend troponin further and decision on further workup will be made accordingly. 3.Hypothyroidism. Her TSH is very high. Recommend adjustment of her thyroid medications and close monitoring of her TSH level. SR/MODL Voice ID: [id number] Report ID: [id number]
[2022-03-03] MEDS: TICAGRELOR 90 MG TABLET PO SCH (20:48)
[2022-03-03] MEDS: AMIODARONE HCL 200 MG TAB PO SCH (20:48)
[2022-03-04 04:44] LABS: Hematocrit 29.2 % (36.0-45.0); Lymphocytes % 14.2 % (15.3-44.8); MPV 7.7 fL (7.6-11.3); RBC Red Blood Cell Count 4.04 M/uL (3.86-4.86)
[2022-03-04 05:04] LABS: Potassium 3.1 mmol/L (3.5-5.1)
[2022-03-04] MEDS: NA CHLORIDE 0.9% 1,000 ML IV SCH (05:07)
[2022-03-04] MEDS ORDERED: LEVOTHYROXINE SOD 0.1 MG TAB PO SCH (07:30)
[2022-03-04] MEDS ORDERED: POTASSIUM CL SA 10 MEQ TAB PO SCH (09:00)
[2022-03-04] MEDS ORDERED: ASPIRIN EC 81 MG TAB PO SCH (09:00)
[2022-03-04] MEDS: AMIODARONE HCL 200 MG TAB PO SCH (09:00)
[2022-03-04] MEDS ORDERED: GABAPENTIN 100 MG CAP PO SCH (09:00)
[2022-03-04] MEDS ORDERED: DULOXETINE 30 MG CAP PO SCH (09:00)
[2022-03-04] MEDS ORDERED: lisinopriL 20 MG TAB PO SCH (09:00)
[2022-03-04] MEDS ORDERED: MAGNESIUM OXIDE 400 MG TAB PO SCH (09:00)
[2022-03-04] MEDS ORDERED: FUROSEMIDE 40 MG TABLET PO SCH (09:00)
[2022-03-04] MEDS ORDERED: AMLODIPINE 10 MG TAB PO SCH (09:00)
[2022-03-04 09:06] VITALS: BP 185/92; TEMP 98.4
[2022-03-04 09:26] VITALS: O2SAT 97
[2022-03-04] MEDS: TICAGRELOR 90 MG TABLET PO SCH (09:26)
[2022-03-04] MEDS ORDERED: ATORVASTATIN 40 MG TAB PO SCH (21:00)
--- NOTE | 2022-03-05 06:54 | HP ---
Date of Admission: 03/03/2022 Chief Complaint: Low blood pressure and nausea. History Of Present Illness: This is a 77-year-old female patient, who has chronic back pain and came into emergency room with low blood pressure, says her blood pressure at home was around 80/50 or so. She was also having some nausea problem. No vomiting. No diarrhea. After she came into emergency room, she was admitted to the hospital. The patient reports that every now and then, she feels like she still has atrial fibrillation problem with some palpitation type of feeling, and obviously, we w ill monitor that while in the hospital on hall monitor. Medications: List reviewed. Allergies: TO CODEINE CAUSING NAUSEA. Review of Systems: Cardiovascular: As mentioned above. GI: As mentioned above. All other systems reviewed and negative. Past Medical History: Hypothyroidism, COPD, hypertension, hyperlipidemia, paroxysmal atrial fibrilla tion, coronary artery disease, peripheral vascular disease, aortic atherosclerosis, gastroesophageal reflux disease, kidney stone, osteoarthritis at multiple sites anemia, anxiety, hypokalemia, and hypo magnesemia and chronic diastolic heart failure. The patient had cardioversion for atrial fibrillatio n on no February 28, 2022, and it was successful. She converted to sinus rhythm at that time. Past Surgical History: Coronary artery angioplasty with stent placement on December 19, 2019, Watchman's procedure on November 20, 2021, right leg stent in May 2021, left leg stent in 2000, cholecystecto my, hysterectomy, back surgery, and cervical spine surgery. Family History: Father had heart disease. Mother had diabetes. Social History: Prior history of smoking, not at present time. Use of alcohol negative. Physical Examination: Vital Signs: Temperature 97.9, pulse 67, respiratory rate 14, blood pressure 117/59, and oxygen satu ration 97%. Height 5 feet 7 inches, weight 147 pounds. General: Awake, alert, oriented, not in distress. HEENT: Head atraumatic, normocephalic. Conjunctivae nonerythematous. Sclerae white. Mouth, no thr ush or edema noted. Ears/Nose, no mass, lesion, discharge noted. Neck: Supple. No JVD, lymph nodes, bruit, thyromegaly noted. Lungs: Bilateral good equal air entry. Clear to auscultation. No rhonchi. No rales. Heart: Normal heart sounds, no murmur or gallop. Abdomen: Soft, bowel sounds normal. No guarding, rigidity, tenderness, mass, hepatosplenomegaly, dis tention, or bruit noted. Extremities: No leg edema. No calf tenderness. Skin: No rash, ulcer, cellulitis. Lymphatics: No lymph node enlargement in neck, supraclavicular, infraclavicular region. Neuro: No focal neurological deficit. Chest: Unremarkable. External Genitalia: Deferred. Rectal: Deferred. Laboratory Data: White count 6.7, hemoglobin 11.1, and platelets 389. Sodium 135, potassium 3.6, ch loride 101, bicarb 26, BUN 21, creatinine 1.36, and glucose 99. Troponin 272. TSH 20.6. Upon revie w of her multiple prior hospital admission, her troponin always has been remaining high and this is t he lowest value that we have seen since October of this year. Chest x-ray, no acute cardiopulmonary changes. Impression: 1.Hypotension. 2.Hypothyroidism. 3.Chronic diastolic heart failure. 4.Anemia, chronic, unspecified. 5.Coronary artery disease. 6.Paroxysmal atrial fibrillation. 7.Peripheral vascular disease. 8.Aortic atherosclerosis. 9.Hyperlipidemia. 10.Hypertension. 11.Chronic obstructive pulmonary disease. 12.Anxiety. Plan: Admit the patient to hospital for further evaluation and management of this problem. We will consult Cardiology. The patient's nurse had informed me that the patient has not picked up her Brili nta prescription from the pharmacy and the patient does not remember exactly what she takes. I have reviewed her prior hospital admissions and medication list and I am not sure whether she is taking he r medication as prescribed or not, so it will be best for her to bring all her medication bottles to the office when she comes to see me so we can go over her medications and give her appropriate recomm endation. I will discuss details with barrel stave inspector. I will see her tomorrow for followup, monitor h er on telemetry for any recurrence of atrial fibrillation, and if that happens, obviously she will ne ed to consider ablation procedure. She has a Watchman's device in place, so she does not need any an ticoagulation at this time. LUIS/MODL Voice ID: [id number]
--- NOTE | 2022-03-05 07:09 | DS ---
Date of Discharge: 03/04/2022 Disposition: Discharged to go home. Physical Examination: HEENT: Unremarkable. Lungs: Clear to auscultation. Heart: Sounds normal. Abdomen: rigidity, tenderness, distention. Extremities: No leg edema. Laboratory Data: Sodium 136, potassium 3.1, chloride 102, bicarb 26, BUN 21, creatinine 1.19, glucos e 130. White count 7.1, hemoglobin 9.4, platelets . Discharge Diagnoses: 1.Hypotension. 2.Paroxysmal atrial fibrillation. 3.Chronic diastolic heart failure. 4.Hypertension. 5.Hyperlipidemia. 6.Coronary artery disease. 7.Peripheral vascular disease. 8.Hypokalemia. 9.Anemia, unspecified. 10.Aortic atherosclerosis. 11.Chronic obstructive pulmonary disease. 12.Hypothyroidism. Hospital Course: This is a 77-year-old very pleasant female patient, admitted to the hospital with l ow blood pressure problem. Please see dictated H and P for more information. After patient was eval uated, admitted to the hospital. We monitored her on telemetry, as patient reports that every now an d then she feels like she may still have some atrial fibrillation problem. Ever since she was admitt ed to hospital to telemetry unit, she has not had any recurrence of atrial fibrillation at all. She has remained in sinus rhythm. Hemodynamically, she is stable. Nurse has raised concern about her ma y not be taking medications as she should and what I have instructed today is that I would like to se e her tomorrow at office with all her medication bottles, so we can make sure that she is taking her medication as prescribed. I did talk to Dr. Kelley today and his planning to do 1 week long Holter monitor on her to document and see if there is any evidence of recurrence of atrial fibrillation afte r her cardioversion, which was done on February 28. If the patient still continues to have atrial fibr illation problem, then Dr. Kelley will refer her for ablation therapy. I will see her tomorrow for followup. LUIS/MODL Voice ID: [id number] Report ID: [id number]
--- NOTE | 2022-03-05 07:22 | EKG ---
Test Date: 2022-03-04 Test Time: 09:31:13 Sound System Installer: NIXON MEASUREMENT RESULTS: Intervals: Rate: 63 MN: 168 QRSD: 76 QT: 518 QTc: 530 [place]: P: 64 MN: 168 QRS: 49 T: 76 INTERPRETIVE STATEMENTS: Normal sinus rhythm Septal infarct, age undetermined Prolonged QT Abnormal ECG Compared to ECG 03/03/2022 10:04:58 Myocardial infarct finding now present Prolonged QT interval now present Electronically Signed On 03-05-22 07:17:46 CDT by Scott Kelley
--- NOTE | 2022-03-05 07:27 | EKG ---
Test Date: 2022-03-03 Test Time: 10:04:58 Supervisor Customer Services: HARIS MEASUREMENT RESULTS: Intervals: Rate: 76 NV: 128 QRSD: 80 QT: 416 QTc: 468 [place]: P: 76 NV: 128 QRS: 67 T: 84 INTERPRETIVE STATEMENTS: Normal sinus rhythm Normal ECG Compared to ECG 02/27/2022 09:09:58 No significant changes Electronically Signed On 03-05-22 07:19:58 CDT by Scott Kelley
== END 2022-03-04 10:39 | disposition home or self-care (01) ==
LOC: ER 09:45 → ERHOLD 11:39 → 2ND 14:36
PROVIDERS: ADMIT Internal Medicine; ATTEND Internal Medicine
DX: I95.9 Hypotension, unspecified (principal); I48.0 Paroxysmal atrial fibrillation; I11.0 Hypertensive heart disease with heart failure; I50.32 Chronic diastolic (congestive) heart failure; E03.9 Hypothyroidism, unspecified; I25.10 Atherosclerotic heart disease of native coronary artery without angina pectoris; I70.0 Atherosclerosis of aorta; E87.6 Hypokalemia; E78.5 Hyperlipidemia, unspecified; G89.29 Other chronic pain; M54.50 Low back pain, unspecified; I73.9 Peripheral vascular disease, unspecified; D64.9 Anemia, unspecified; J44.9 Chronic obstructive pulmonary disease, unspecified; K21.9 Gastro-esophageal reflux disease without esophagitis; M15.9 Polyosteoarthritis, unspecified; F41.9 Anxiety disorder, unspecified; Z20.822 Contact with and (suspected) exposure to COVID-19; Z87.891 Personal history of nicotine dependence; Z95.5 Presence of coronary angioplasty implant and graft; Z95.820 Peripheral vascular angioplasty status with implants and grafts; Z88.5 Allergy status to narcotic agent; Z90.49 Acquired absence of other specified parts of digestive tract; Z90.710 Acquired absence of both cervix and uterus; Z82.49 Family history of ischemic heart disease and other diseases of the circulatory system; Z83.3 Family history of diabetes mellitus
CPT/HCPCS: 93005 ×2; 85025 ×2; 80048 ×2; 36415; 83735; 85610; 80076; 84443; 84484 ×3; 84439; 83880; 71045; 96372; 99285; U0003; J1650; J7040; J7030 ×2; G0378 ×3

== ENCOUNTER 2022-08-17 08:31 | Observation (INO) | payer OTHER ==
--- OUTSIDE RECORDS SUMMARY | 2022-08-17 08:37 | XMS REPORT | Continuity of Care Document ---
:1945 Author Organization [facility] t Address [address] [place] [address] Care Team Providers Name Role Phone Unknown, Physician Primary Care Physician Unavailable ARASH CONNELL Attending Clinician Unavailable [id number] Attending Clinician Unavailable ARASH CONNELL Attending Clinician Unavailable Minesh Gallegos Attending Clinician RICHIE MARTIN Attending Clinician Unavailable Soha Montelongo Attending Clinician Ortiz Domingo Attending Clinician Unavailable Kenny Medley Attending Clinician Unavailable Severo Coleman Attending Clinician Darius Ybarra Attending Clinician Arash Connell Attending Clinician Sasha Valenzuela Attending Clinician LAKSHMI VELEZ Attending Clinician Unavailable [id number] Admitting Clinician Unavailable ARASH CONNELL Admitting Clinician Unavailable Jayy Linda Admitting Clinician Unavailable Ortiz Domingo Admitting Clinician Unavailable Reza Rojo Admitting Clinician Sasha Valenzuela Admitting Clinician Arash Connell Admitting Clinician Janny Wrencandaceluis Terell Admitting Clinician Payers Payer Name Policy Type Policy Number Effective Date Expiration Date S juan [employer] MEDICARE [id number] 2020 2024 PPO 00:00:00 00:00:00 Problems Condition [...] Source Name Type Date Date Clinician Codeine Propensi Active GI 2021-09 " It Methodi ty to Intolerance 0-[address] adverse 00:00: [facility]atal [facility]osp[facility] reaction 00 hernia" l s to drug No Known DA Active [facility] Allergie 3-07 Clear s 00:00: Sampson 00 [facility] codeine DA Active [place] [facility] HIATAL 3-07 Clear HERNIA 00:00: Sampson 00 [facility] Codeine Allergy Active Unknown [facility] to 7-17 Health substanc 00:00: e 00 Social History Social Habit Start Date Stop Date Quantity Comments Source Tobacco use and 2021-06-28 2021-06-28 Smokeless tobacco [facility] exposure 00:00:00 00:00:00 non-user Sex Assigned At [birth year] [facility] 00:[facility]00 Hospital Smoking Status Start Date Stop Date Source Tobacco smoking consumption unknown [facility] Smokes tobacco daily 2021-06-28 00:00:00 [facility] Medications Ordered Filled Start Stop Current Ordering Indication Dosage Frequency Signature Comments Components Source Medication Medication Date Date Medication? Clinician (SIG) Name Name acetaminoph Yes [id number] 1{tbl} Take 1 UT en-codeine 5-02 tablet by [facility]al th (TYLENOL/CO 00:00: mouth DEINE #3) 00 every 4 300-30 MG (four) tablet hours if needed for severe pain. naloxone 2022- No [id number] .4mg Administer UT (Narcan) 2 11-18-08 0.4 mL Health MG/2ML 00:00: 05:59 (0.4 mg injection 00 :00 total) into affected nostril(s) if needed for opioid reversal. May repeat every 2-3 minutes as needed until medical assistance available. naloxone 2022- No [id number] .4mg Administer [facility] (Narcan) 2 11-18-08 0.4 mL Health MG/2ML 00:00: 05:59 (0.4 mg injection 00 :00 total) into affected nostril(s) if needed for opioid reversal. May repeat every 2-3 minutes as needed until medical assistance available. naloxone 2022- No [id number] .4mg Administer [facility] (Narcan) 2 11-18-08 0.4 mL Health MG/2ML 00:00: 05:59 (0.4 mg injection 00 :00 total) into affected nostril(s) if needed for opioid reversal. May repeat every 2-3 minutes as needed until medical assistance available. naloxone 2022- No [id number] .4mg Administer [facility] (Narcan) 2 11-18-08 0.4 mL Health MG/2ML 00:00: 05:59 (0.4 mg injection 00 :00 total) into affected nostril(s) if needed for opioid reversal. May repeat every 2-3 minutes as needed until medical assistance available. traMADol 2021- No [id number] 50mg Take 1 UT (Ultram) 50 3-07 03-13 tablet (50 H ealth MG tablet 00:00: [...] 12:07: 12 ASPIRIN 2020-09 Yes Take by NM ADULT PO 2-06 mouth. Health 12:07: 12 traMADol 2020-09- No [id number] 50mg Take 1 U T (Ultram) 50 1-02 11-08 tablet (50 H ealth MG tablet 00:00: 05:59 mg total) 00 :00 by mouth every 8 (eight) hours if needed for severe pain for up to 5 days. traMADol 2020-09- No [id number] 50mg Q6H Take 1 U T (Ultram) 50 0-15 10-23 tablet (50 H ealth MG tablet 00:00: 04:59 mg total) 00 :00 by mouth every 6 (six) hours if needed for severe pain for up to 7 days. amLODIPine 2021-0 Yes UT (Norvasc) 9-19 Health 10 MG [...] MG 24 00:00: hr capsule 00 amLODIPine 1-0 Yes UT (Norvasc) 9-19 Health 10 MG 00:00: tablet 00 levothyroxi 2021-0 Yes UT ne 9-19 Health (Synthroid, 00:00: Levoxyl) 00 100 MCG tablet tamsulosin 2020-0 Yes UT (Flomax) 9-19 Health 0.4 MG 24 00:00: hr capsule 00 amLODIPine 1-0 Yes UT (Norvasc) 9-19 Health 10 MG 00:00: tablet 00 levothyroxi 2021-0 Yes UT ne 9-19 Health (Synthroid, 00:00: Levoxyl) 00 100 MCG tablet tamsulosin 1-0 Yes UT (Flomax) 9-19 Health 0.4 MG 24 00:00: hr capsule 00 amLODIPine 0 Yes UT (Norvasc) 06-02 Health 10 MG 00:00: tablet 00 levothyroxi 2020-0 Yes UT ne 9 Health (Synthroid, 00:00: Levoxyl) 00 100 MCG tablet tamsulosin 0 Yes UT (Flomax) 9 Health 0.4 MG 24 00:00: hr capsule 00 ALPRAZolam 0 Yes UT (Xanax) 908 Health 0.25 MG 00:00: tablet 00 ALPRAZolam 0 Yes UT (Xanax) 08 Health 0.25 MG 00:00: tablet 00 ALPRAZolam 0 Yes UT (Xanax) 05-22 Health 0.25 MG 00:00: tablet 00 ALPRAZolam 0 Yes UT (Xanax) 08 Health 0.25 MG 00:00: tablet 00 ALPRAZolam 0 Yes UT (Xanax) 05-22 Health 0.25 MG 00:00: tablet 00 ALPRAZolam 0 Yes UT (Xanax) 908 Health 0.25 MG 00:00: tablet 00 ALPRAZolam 0 Yes UT (Xanax) 908 Health 0.25 MG 00:00: tablet 00 traZODone [...] 00 50 MG 24 hr tablet metoprolol 0 Yes UT succinate 05-14 Health XL 00:00: (Toprol-XL) 00 50 MG 24 hr tablet metoprolol 0 Yes UT succinate 05-14 Health XL 00:00: (Toprol-XL) 00 50 MG 24 hr tablet metoprolol 0 Yes UT succinate 05-14 Health XL 00:00: (Toprol-XL) 00 50 MG 24 hr tablet metoprolol 0 Yes UT succinate 05-14 Health XL 00:00: (Toprol-XL) 00 50 MG 24 hr tablet metoprolol 0 Yes UT succinate 05-14 Health XL 00:00: (Toprol-XL) 00 50 MG 24 hr tablet metoprolol 0 Yes UT succinate 05-14 Health XL 00:00: [...] 00:00: every 10 MG 00 night. tablet Vital Signs Vital Name Observation Time Observation Value Comments Source Body height 2022-07-09 14:00:00 170.2 cm [facility] Body weight 2022-07-09 14:00:00 73.936 kg [facility] BMI 2022-07-09 14:00:00 25.53 kg/m2 [facility] Procedures Procedure Date / Time Performed Performing Clinician [facility] e CT ANGIOGRAM ABDOMINAL 2022-07-09 15:35:12 Richie Martin [facility] AORTA AND BILATERAL ILIOFEMORAL RUNOFF W WO CONTRAST POC CREATININE 2022-07-09 14:13:00 Javier Nunes [facility] ESTIMATED GFR 2022-07-09 14:13:00 Javier Nunes [facility] [id number] 2021-11-20 00:00:00 [facility] Clear [facility] Plan of Care Planned Activity Planned Date Details Comments Source Future Scheduled 2022-07-17 HEPATITIS B VACCINES Met [facility] Test 07:30:39 (1 of 3 - 3-dose series) [code = HEPATITIS B VACCINES (1 of 3 - 3-dose series)] Future Scheduled 2022-07-17 COVID-19 VACCINE (#1) [facility] Test 07:30:39 [code = COVID-19 VACCINE (#1)] Future Scheduled 2022-07-17 Hepatitis C screening Me [facility] Test 07:30:39 (procedure) [code = 926330761] Future Scheduled 2022-07-17 SHINGLES VACCINES (1 Met [facility] Test 07:30:39 of 2) [code = SHINGLES VACCINES (1 of 2)] Future Scheduled 2022-07-17 INFLUENZA VACCINE Method [facility] Test 07:30:39 [code = INFLUENZA VACCINE] Future Scheduled 2022-07-17 65+ PNEUMOCOCCAL Methodi [facility] Test 07:30:39 VACCINE (2 - PCV) [code = 65+ PNEUMOCOCCAL VACCINE (2 - PCV)] Encounters Start End Encounter Admission Attending Care Care Encounter Source Date/Time Date/Time Type Type Clinicians Facility Department ID 2022-04-03 Outpatient JUSTEN CONNELL [facility]SE [id number] 15:59:49 [facility] 2021-11-21 Outpatient [facility] [id number] [place] 10:56:53 Health 2021-11-21 Outpatient [facility] [id number] [place] 10:55:46 Health 2021-10-22 Outpatient 3 [id number] E[facility] CRD [id number] [facility] 10:32:05 [facility] 2021-10-16 Outpatient 3 [id number] ENC[facility] REF [id number] [facility] 10:31:34 [facility] 2021-10-01 [facility] [id number] [place] 01:05:41 [facility] 2021-09-27 Inpatient JUSTEN CONNELL [facility]SE [id number] 14:57:03 [facility] 2021-09-24 Outpatient KO [facility] [id number] [place] 14:24:58 [facility] 2021-09-16 Outpatient [facility] [id number] [place] 08:56:13 [facility] 2021-09-16 Outpatient [facility] [id number] [place] 08:54:24 [facility] 2021-08-19 Outpatient KO, [facility] [id number] [place] 07:57:20 [facility] 2021-08-19 Outpatient [facility] [id number] [place] 07:56:39 [facility] 2021-08-19 Outpatient [facility] [id number] [place] 07:55:37 [facility] 2021-07-23 Outpatient [facility] [id number] [place] 10:43:22 [facility] 2021-07-23 Outpatient KO, [facility] [id number] UT 10:42:25 [facility] 2021-07-23 Outpatient [facility] [id number] [place] 10:36:58 [facility] 2022-07-23 2022-07-23 Outpatient RATNA GallegosSCHMELIA [id number] 13:00:00 13:00:00 Minesh 06 [facility] 2022-07-09 2022-07-09 [facility] [id number] [place] 00:00:00 00:00:00 DIVYANG [address] 2022-07-03 2022-07-03 Transcribe Danii, 1.2.840.1 [id number] Methodi 00:00:00 00:00:00 Orders Divmariah C 63403.1.1 125 3.430.2.7 Hospit a .3.715394 l .8 2022-05-23 2022-05-23 Outpatient GOLD GallegosSCHMELIA MALCOLMSCHER [id number] 13:15:00 23:59:59 Minesh 05 [facility] 2022-04-29 2022-04-29 Outpatient KO [facility] [id number] [place] 10:00:00 10:00:00 [facility] 2022-04-10 2022-04-10 Outpatient RATNA GallegosSCHMELIA [id number] 08:15:00 23:59:59 Minesh 04 [facility] 2022-03-10 2022-03-10 Outpatient RATNA GallegosSCHER [id number] 11:30:00 23:59:59 Minesh 03 Andrei 2022-02-19 2022-02-19 Outpatient GOLD GallegosSCHMELIA MHMISCHER [id number] 15:15:00 15:15:00 Minesh 02 Andrei 2022-01-13 2022-01-13 Office ESPERANZA Connell [facility] 1.2.840.114 [id number] UT 10:00:00 10:15:00 Visit Arash CAMILLA [id number] [facility] CONN 9.2.7.2.686 CLINIC [id number] 2022-01-06 2022-01-06 [facility] [id number] 09:20:00 09:20:00 Soha Valencia 2022-01-01 2022-01-01 Telephonic ESPERANZA Connell 1.2.840.114 [id number] UT 07:45:00 08:52:16 Encounter Arash BROTHERS [id number] [facility] 9.2.7.2.686 [id number] 2021-12-18 2021-12-18 Inpatient ANISA Domingo, HCACL OUTD [id number] [facility] 05:16:00 05:16:00 Ortiz 70 [facility] 2021-12-04 2021-12-04 Telephonic ESPERANZA Connell 1.2.840.114 [id number] UT 07:45:00 08:47:54 Encounter Arash SILVERTER [id number] [facility] 9.2.7.2.686 [id number] 2021-11-20 2021-11-21 Inpatient ANISA Medley, HCACL INTE.02 [id number] [facility] 14:27:00 13:39:00 Molham 30 [facility] 2021-11-18 2021-11-18 Office KO [facility] 1.2.840.114 [id number] UT 10:00:00 10:15:00 Visit ARASH SAMPSON [id number] Celestino CONN 9.2.7.2.686 [facility] [id number] 2021-11-08 2021-11-11 Outpatient JUSTEN Coleman MHSE [id number] 00:30:00 12:32:00 Saliluis 55 Nochito[facility]wilfredo 2021-11-08 2021-11-08 Outpatient Jared, MHSE MHSE [id number] 00:30:00 00:30:00 Severo 55 Nochitojiwilfredo 2021-11-06 2021-11-06 Office ESPERANZA Connell 1.2.840.114 [id number] UT 10:45:00 11:24:42 Visit Arash SILVERTER 350.1.13.58 [facility] 9.2.7.2.686 [id number] 2021-11-04 2021-11-04 Outpatient Reginald, MHMG MG [id number] 09:40:00 23:59:59 Soha L 2021-10-11 2021-10-22 Outpatient Tate, MHSE MHSE [id number] 10:31:00 17:05:00 Darius 2021-10-11 2021-10-11 Outpatient Ko, MHSE MHSE [id number] 13:30:00 13:30:00 Arash Tsai 2021-10-11 2021-10-11 Outpatient Bianca, MHSE MHSE [id number] 10:31:00 10:31:00 Sasha 2021-10-11 2021-10-11 Outpatient Bianca, MHSE MHSE [id number] 10:31:00 10:31:00 Sasha 2021-10-11 2021-10-11 Outpatient Tate, MHSE MHSE [id number] 10:31:00 10:31:00 Darius 2021-09-27 2021-09-30 Outpatient Bianca, MHSE MHSE [id number] 16:11:44 15:55:00 Sasha 2021-09-27 2021-09-27 Outpatient Bianca, MHSE MHSE [id number] 16:11:44 16:11:44 Sasha 2021-09-27 2021-09-27 Emergency E ROSIE, MHSE MHSE [id number] MH 16:11:00 16:11:00 LAKSHMI ayoub [facility] 2021-07-16 2021-07-16 Office ESPERANZA Connell [facility] 1.2.840.114 [id number] NM 09:51:23 10:45:55 Visit [facility] 350.1.13.58 [address] 9.2.7.2.686 [id number] 2021-07-02 2021-07-02 Outpatient Ko [facility] [id number] 09:10:00 17:16:00 Arash Eulalio 2021-07-02 2021-07-02 Outpatient Ko [facility] [id number] 09:10:00 17:16:00 Arash Eulalio 2021-06-28 2021-06-28 Office Ko [facility] 1.2.840.114 [id number] NM 09:49:14 10:45:59 Visit [facility] 350.1.13.58 [address] 9.2.7.2.686 [id number] 2021-06-16 2021-06-16 Outpatient PRIV PRIV [id number] [facility] 00:00:00 00:00:00 [id number] Medica l Results Test Description Test Time Test Comments [...] x10 3/uL 0.0-0.1 N NRBC#) BASIC METABOLIC [id number] 15:06:00 Test Item Value Reference Range Interpretation [...] code = 8.4 mg/dL 8.0-10.5 N CA) [id number] 12:54:00 Test Item Value Reference Range Interpretation Comments ACT-ISTAT (test code 273 SEC 74-137 H Perform ed 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 = ACTI) 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 BASIC METABOLIC [id number] 12:47:00 Test Item Value Reference Range Interpretation [...] = 8.4 mg/dL 8.0-10.5 N CA) PROTHROMBIN [id number] 12:47:00 Test Item Value Reference Range Interpretation Comments PROTHROMBIN TIME 23.4 SECONDS 9.3-12.9 H PATIENT (test code = PTP) INTERNATIONAL NORMAL 2.1 0.8-1.2 H TARGET INR BY RATIO (test code = INDICATIO N Indication INR) INR1. Prophylax is of venous thrombos is 2.0 - 3.0 (orthoped ic surgery), Proph ylaxis of venous throm bosis (other than hig h-risk surgery), Treat ment of Deep Vein Thrombosis/Pulm onary Embolism, Preve ntion of systemic emb olism - Tissue heart va lves, Acute Myocardia l Infarction (to prevent systemic emboli sm), Valvular heart disease, Atrial Fibrillation, Bileaflet mecha nical valve in aortic position.2. Mec hanical prosthetic valv es (high risk), 2. 5 - 3.5 Presence of Lup us Anticoagulant o r Antiphospholipi d Antibodies, Pre vention of systemic emb olism - Acute Myocardia l Infarction (to prevent recurrent infar ct). 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 LAKEN[facility]: BESSIE, GLENDA [facility] : 1945 Sex: F FAX: Jayy Jefferson MD [phone] [place]: St: ADM FAX: rOtiz Krishnan MD [phone] FAX: Alan Toussaint [phone] Name: EDUARDO LA [facility] : 1945 Age/S: 76/F [address] [place] [address] Unit #: [id number] Loc: [place] [address] Phys: Alan Toussaint [facility] Acct: [id number] Dis Date: Status: ADM IN PHONE #: [phone] Exam Date: 11/20/2021 1558 FAX #: [phone] Reason: WATCHMAN EXAMS: CPT CODE: [id number] XR CHEST 1 V 68780 PROCEDURE INFORMATION: Exam: XR ChestExam date and time: 11/20/2021 3:38 PM Age: 76 years old Clinical indication: Device placement; Other:Watchman TECHNIQUE: Imaging protocol: XR of the chest. [...] No acute abnormality in the chest. No radiopaque device is seen in the chest. at 1604 Reported and signed by: Brooke Beaver M.D. CC: Jayy Linda MD; Ortiz Domingo MD; Alan Toussaint Technologist: XAVI Leonardo) Trnscrd Date/Time/By: 11/20/2021 (7860) : By: [email or web address] Orig Print D/T: S: 11/20/2021 (3135) PAGE 1 Signed [id number] 15:14:00 Test Item Value Reference Range Interpretation Comments PREALBUMIN (test code = PREALB) 12.4 mg/dL 16.0-40.0 L BASIC METABOLIC [id number] 15:14:00 Test Item Value Reference Range Interpretation [...] = 8.3 mg/dL 8.0-10.5 N CA) PROTHROMBIN [id number] 15:06:00 Test Item Value Reference Range Interpretation Comments PROTHROMBIN TIME 21.7 SECONDS 9.3-12.9 H PATIENT (test code = PTP) INTERNATIONAL NORMAL 1.9 0.8-1.2 H TARGET INR BY RATIO (test code = INDICATIO N Indication INR) INR1. Prophylax is of venous thrombos is 2.0 - 3.0 (orthoped ic surgery), Proph ylaxis of venous throm bosis (other than hig h-risk surgery), Treat ment of Deep Vein Thrombosis/Pulm onary Embolism, Preve ntion of systemic emb olism - Tissue heart va lves, Acute Myocardia l Infarction (to prevent systemic emboli sm), Valvular heart disease, Atrial Fibrillation, Bileaflet mecha nical valve in aortic position.2. Mec hanical prosthetic valv es (high risk), 2. 5 - 3.5 Presence of Lup us Anticoagulant o r Antiphospholipi d Antibodies, Pre vention of systemic emb olism - Acute Myocardia l Infarction (to prevent recurrent infar ct). CBC W/AUTO [id number] 14:51:00 Test Item Value Reference Range Interpretation [...] 0.0-0.1 N NRBC#) - XR CHEST 2 [id number] 00:00:00 [facility]: EDUARDO [facility] : 1945 Sex: F FAX: Jayy Jefferson MD [phone] [place]: GC St: PRE FAX: Ortiz Krishnan MD [phone] ---- Name: DAVID LA [facility] [place] : 1945 Age/S: 76/F [address] [place] [address] Blvd Unit #: [id number] Loc: [place] [address] Phys: Ortiz Domingo MD Acct: [id number] Dis Date: Status: PRE SDC PHONE #: Exam Date: 11/18/2021 9274 FAX #: [phone] Reason: PREOP EXAMS: CPT CODE: [id number] XR CHEST 2 V 31433 PROCEDURE INFORMATION: Exam: XR Chest Exam date [...] No acute pleural space abnormalities are detected. IMPRESSION: 1. Noradiographic evidence of acute cardiopulmonary disease. SL: 131 at 6116 Reported and signed by: Saad Arboleda M.D. CC: Jayy Linda MD; Ortiz Domingo MD Technologist: RT Bayron(Ilan) Trnscrd Date/Time/By: 11/18/2021 (798) : By: Richi Orig Print D/T: S: 11/18/2021 (8024) PAGE 1 Signed Report
[2022-08-17] MEDS ORDERED: FUROSEMIDE 40 MG/4 ML VIAL ONE (08:50)
[2022-08-17 09:16] LABS: Absolute Lymphocytes (CBC) 0.7 K/uL (0.7-4.9); Hematocrit 33.8 % (36.0-45.0); Lymphocytes % 10.7 % (15.3-44.8); MPV 7.8 fL (7.6-11.3); RBC Red Blood Cell Count 4.63 M/uL (3.86-4.86)
[2022-08-17 09:29] LABS: Albumin 3.5 g/dL (3.4-5.0); Bilirubin Direct 0.2 mg/dL (0-0.2); Bilirubin Total 0.5 mg/dL (0.2-1.0); Magnesium 2.4 mg/dL (1.8-2.4); Potassium 4.3 mmol/L (3.5-5.1); Protein, Total 8.4 g/dL (6.4-8.2)
[2022-08-17 09:32] LABS: Protime INR 0.99
[2022-08-17 09:33] LABS: Troponin High Sensitivity 258.6 pg/mL (<58.9)
[2022-08-17 09:40] LABS: Urine Blood Trace-lysed (Negative); Urine Glucose Negative (Negative); Urine Protein 3+ (Negative)
[2022-08-17 09:50] LABS: SARS-COV-2 RT PCR NEGATIVE (NEGATIVE)
--- NOTE | 2022-08-17 10:21 | RAD REPORT ---
EXAM DESCRIPTION: RAD - Chest Single View - 08/17/2022 10:01 am CLINICAL HISTORY: DYSPNEA COMPARISON: Single-view chest 03/03/2022 TECHNIQUE: AP portable chest image was obtained 08/17/2022 10:01 am . FINDINGS: No mass or consolidation. Interstitial pattern matches comparison. No hilar mass or lymphadenopathy. Heart and vasculature are normal. No measurable pleural effusion and no pneumothorax. No acute bony abnormality seen. No acute aortic f indings suspected. IMPRESSION: No acute cardiopulmonary process. No significant change from comparison study.
--- NOTE | 2022-08-17 10:29 | ER ---
Nurse's Notes [facility] Simone Name: Neela Staton Age: 77 yrs Sex: Female : 1945 Arrival Date: 08/17/2022 Time: 08:34 Bed 4 Private MD: James Linda C Diagnosis: Dyspnea;Non ST elevation NC;COPD/ Chronic obstructive pulmonary disease with acute lower respiratory infection;Diastolic (congestive) heart failure;Essential (primary) hypertension;UTI/ Urinary tract infection, site not specified Presentation: 08/17 08:37 Chief complaint: Patient's son or daughter states: pt has hx of CHF and has been SOB X iw 2 days. Coronavirus screen: At this time, the client does not indicate any symptoms associated with coronavirus-19. Ebola Screen: Patient negative for fever greater than or equal to 101.5 degrees Fahrenheit, and additional compatible Ebola Virus Disease symptoms Patient denies exposure to infectious person. Patient denies travel to an Ebola-affected area in the 21 days before illness onset. No symptoms or risks identified at this time. Initial Sepsis Screen: Does the patient meet any 2 criteria? No. Patient's initial sepsis screen is negative. Does the patient have a suspected source of infection? No. Patient's initial sepsis screen is negative. Risk Assessment: Do you want to hurt yourself or someone else? Patient reports no desire to harm self or others. Onset of symptoms was August 15, 2022. 08:37 Method Of Arrival: Wheelchair iw 08:37 Acuity: BETHANY 3 iw Triage Assessment: 09:46 Respiratory: Onset: The symptoms/episode began/occurred yesterday, the patient has mild ph shortness of breath. Historical: - Allergies: 08:38 Codeine; iw - PMHx: 08:38 Atrial fibrillation; Depression; GERD; High Cholesterol; Hypertensive disorder; iw Hypothyroidism; neuropathy; - PSHx: 08:38 heart stent; right leg stent; iw - Immunization history:: Adult Immunizations unknown. - Social history:: Smoking status: Patient denies any tobacco usage or history of. Screenin:43 Abuse screen: Denies threats or abuse. Denies injuries from another. Nutritional ph screening: No deficits noted. Tuberculosis screening: No symptoms or risk factors identified. Fall Risk None identified. Assessment: 09:44 General: Appears in no apparent distress. uncomfortable, Behavior is cooperative, ph anxious, crying, fussy, Denies fever. Pain: Complains of pain in chest. Neuro: Level of Consciousness is awake, alert, obeys commands, Oriented to person, place, time, situation. Cardiovascular: Reports chest pain, shortness of breath, Capillary refill < 3 seconds in bilateral fingers Patient's skin is warm and dry. Rhythm is regular. Respiratory: Reports shortness of breath at rest Airway is patent Respiratory effort is even, unlabored, Respiratory pattern is tachypnea. GI: No signs and/or symptoms were reported involving the gastrointestinal system. Derm: Skin is fragile, is thin, Skin is pink, warm \T\ dry. Derm: Wound noted plantar aspect of right third toe. Musculoskeletal: Circulation, motion, and sensation intact. Range of motion: intact in all extremities. Vital Signs: 08:37 BP 154 / 84; Pulse 66; Resp 20; Temp 97.2; Pulse Ox 100% on R/A; Weight 77.11 kg; iw Height 5 ft. 7 in. (170.18 cm); 08:46 BP 154 / 84; Pulse 66; Temp 97.2; Pulse Ox 100% ; Weight 77.11 kg; Height 5 ft. 7 in. eb (170.18 cm); 09:46 BP 190 / 80; Pulse 63; Resp 18; Pulse Ox 100% on 2 lpm NC; ph 11:52 BP 162 / 68; Pulse 65; Resp 22; Pulse Ox 100% on Nebulizer Mask; ph 13:00 BP 157 / 78; Pulse 72; Resp 18; Pulse Ox 99% on R/A; ph 14:00 BP 152 / 76; Pulse 69; Resp 16; Temp 97.9; Pulse Ox 99% on R/A; ph 15:33 BP 158 / 61; Pulse 68; Resp 18; Temp 97.4; Pulse Ox 98% on R/A; ph 08:46 Body Mass Index 26.63 (77.11 kg, 170.18 cm) eb 09:46 placed on oxygen for comfort ph ED Course: 08:34 Patient arrived in ED. mr 08:34 James Linda MD is Private Physician. mr 08:38 Triage completed. iw 08:38 Arm band placed on. iw 08:39 Unruly Veras MD is Attending Physician. melchor 08:47 Jacey Seo, RN is Primary Nurse. ph 09:13 EKG done, by ED staff. rs5 09:17 Patient has correct armband on for positive identification. Placed in gown. Bed in low mm9 position. Call light in reach. Side rails up X2. Adult w/ patient. Warm blanket given. monitoring manager on. Pulse ox on. NIBP on. 09:17 Initial lab(s) drawn, by me, sent to lab. Inserted saline lock: 20 gauge in right mm9 antecubital area, using aseptic technique. Blood collected. 09:25 Inserted saline lock: 22 gauge in left antecubital area, using aseptic technique. ph 09:38 COVID-19/FLU A+B Sent. mm9 09:38 Urine collected: COVID swab sent to lab. mm9 10:02 XRAY Chest (1 view) In Process Unspecified. EDMS 10:27 James Linda MD is Hospitalizing Provider. melchor 14:57 No provider procedures requiring assistance completed. Patient admitted, IV remains in ph place. Administered Medications: 09:29 Drug: Lasix (furosemide) 40 mg Route: IVP; Site: left antecubital; ph 15:35 Follow up: Response: No adverse reaction ph 11:35 Drug: Rocephin (cefTRIAXone) 1 grams Route: IV; Rate: per protocol; Site: left ph antecubital; 12:05 Follow up: Response: No adverse reaction; IV Status: Completed infusion ph 11:40 Drug: SOLU-Medrol (methylPrednisoLONE) 125 mg Route: IVP; Site: left antecubital; ph 15:35 Follow up: Response: No adverse reaction ph 11:40 Drug: Lovenox (enoxaparin) 70 mg Route: Sub-Q; Site: left lower abdomen; ph 15:35 Follow up: Response: No adverse reaction ph 11:45 Drug: Aspirin 81 mg Route: PO; ph 15:35 Follow up: Response: No adverse reaction ph 11:45 Drug: Xopenex (levalbuterol) 2.5 mg Route: Inhalation; ph 15:35 Follow up: Response: No adverse reaction ph 11:45 Drug: AtroVENT (ipratropium) Aerosol 0.5 mg Route: Inhalation; ph 15:35 Follow up: Response: No adverse reaction ph Medication: 09:44 VIS not applicable for this client. ph Outcome: 10:28 Decision to Hospitalize by Provider. [facility] 14:57 Admitted to Tele accompanied by tech, family with patient, via wheelchair, room 404, with chart, Report called to SUHAIL Flores 14:57 Condition: stable 14:57 Instructed on the need for admit. 15:35 Patient left the ED. ph Signatures: Dispatcher [employer] EDUnruly Fang MD MD cha Rivera, Isabela mr Naya Russell RN RN Jacey Seo RN RN ph Botello, Toya Farnsworth Aleisha mm9 Murphy Ma rs5
--- NOTE | 2022-08-17 10:29 | EDPHYS ---
Physician Documentation [facility] Name: Neela Staton Age: 77 yrs Sex: Female : 1945 Arrival Date: 08/17/2022 Time: 08:34 Bed 4 Private MD: James Linda C ED Physician Unruly Veras HPI: 08/17 10:23 This 77 yrs old Female presents to ER via Wheelchair with complaints of melchor Breathing Difficulty, CHF. 10:23 The patient has shortness of breath at rest, with light activity. Onset: The melchor symptoms/episode began/occurred 3 day(s) ago. Duration: The symptoms are continuous, and are steadily getting worse. The patient's shortness of breath is aggravated by nothing, is alleviated by nothing. Associated signs and symptoms: Pertinent positives: non-productive cough. Severity of symptoms: At their worst the symptoms were mild in the emergency department the symptoms are unchanged. The patient has experienced similar episodes in the past, multiple times. Historical: - Allergies: 08:38 Codeine; iw - PMHx: 08:38 Atrial fibrillation; Depression; GERD; High Cholesterol; Hypertensive disorder; iw Hypothyroidism; neuropathy; - PSHx: 08:38 heart stent; right leg stent; iw - Immunization history:: Adult Immunizations unknown. - Social history:: Smoking status: Patient denies any tobacco usage or history of. ROS: 10:24 Constitutional: Negative for fever, chills, and weight loss, Eyes: Negative for injury, melchor pain, redness, and discharge, ENT: Negative for injury, pain, and discharge, Neck: Negative for injury, pain, and swelling, Cardiovascular: Negative for chest pain, palpitations, and edema, Abdomen/GI: Negative for abdominal pain, nausea, vomiting, diarrhea, and constipation, Back: Negative for injury and pain, : Negative for injury, bleeding, discharge, and swelling, MS/Extremity: Negative for injury and deformity, Skin: Negative for injury, rash, and discoloration, Neuro: Negative for headache, weakness, numbness, tingling, and seizure, Psych: Negative for depression, anxiety, suicide ideation, homicidal ideation, and hallucinations, Allergy/Immunology: Negative for hives, rash, and allergies, Endocrine: Negative for neck swelling, polydipsia, polyuria, polyphagia, and marked weight changes, Hematologic/Lymphatic: Negative for swollen nodes, abnormal bleeding, and unusual bruising. 10:24 Respiratory: Positive for cough, dyspnea on exertion, shortness of breath, on exertion. Exam: 10:24 Constitutional: This is a well developed, well nourished patient who is awake, alert, melchor and in no acute distress. Head/Face: Normocephalic, atraumatic. Eyes: Pupils equal round and reactive to light, extra-ocular motions intact. Lids and lashes normal. Conjunctiva and sclera are non-icteric and not injected. Cornea within normal limits. Periorbital areas with no swelling, redness, or edema. ENT: Nares patent. No nasal discharge, no septal abnormalities noted. Tympanic membranes are normal and external auditory canals are clear. Oropharynx with no redness, swelling, or masses, exudates, or evidence of obstruction, uvula midline. Mucous membranes moist. Neck: Trachea midline, no thyromegaly or masses palpated, and no cervical lymphadenopathy. Supple, full range of motion without nuchal rigidity, or vertebral point tenderness. No Meningismus. Chest/axilla: Normal chest wall appearance and motion. Nontender with no deformity. No lesions are appreciated. Cardiovascular: Regular rate and rhythm with a normal S1 and S2. No gallops, murmurs, or rubs. Normal PMI, no JVD. No pulse deficits. Abdomen/GI: Soft, non-tender, with normal bowel sounds. No distension or tympany. No guarding or rebound. No evidence of tenderness throughout. Back: No spinal tenderness. No costovertebral tenderness. Full range of motion. Female : Normal external genitalia. Skin: Warm, dry with normal turgor. Normal color with no rashes, no lesions, and no evidence of cellulitis. MS/ Extremity: Pulses equal, no cyanosis. Neurovascular intact. Full, normal range of motion. Neuro: Awake and alert, GCS 15, oriented to person, place, time, and situation. Cranial nerves II-XII grossly intact. Motor strength 5/5 in all extremities. Sensory grossly intact. Cerebellar exam normal. Normal gait. Psych: Awake, alert, with orientation to person, place and time. Behavior, mood, and affect are within normal limits. 10:24 Respiratory: mild respiratory distress is noted, Respirations: labored breathing, that is mild, Breath sounds: bronchial sounds, that are mild, decreased breath sounds, that are mild, rhonchi, that are mild, stridor, is not appreciated, + upper airway congestion. wheezing: expiratory Respiratory rate: 20 10:25 ECG was reviewed by the Attending Physician. [facility] Vital Signs: 08:37 BP 154 / 84; Pulse 66; Resp 20; Temp 97.2; Pulse Ox 100% on R/A; Weight 77.11 kg; iw Height 5 ft. 7 in. (170.18 cm); 08:46 BP 154 / 84; Pulse 66; Temp 97.2; Pulse Ox 100% ; Weight 77.11 kg; Height 5 ft. 7 in. eb (170.18 cm); 09:46 BP 190 / 80; Pulse 63; Resp 18; Pulse Ox 100% on 2 lpm NC; ph 11:52 BP 162 / 68; Pulse 65; Resp 22; Pulse Ox 100% on Nebulizer Mask; ph 13:00 BP 157 / 78; Pulse 72; Resp 18; Pulse Ox 99% on R/A; ph 14:00 BP 152 / 76; Pulse 69; Resp 16; Temp 97.9; Pulse Ox 99% on R/A; ph 15:33 BP 158 / 61; Pulse 68; Resp 18; Temp 97.4; Pulse Ox 98% on R/A; ph 08:46 Body Mass Index 26.63 (77.11 kg, 170.18 cm) eb 09:46 placed on oxygen for comfort ph MDM: 08:39 Patient medically screened. melchor 10:26 Differential diagnosis: Anemia Anxiety Reaction Bronchitis CHF exacerbation, Chronic melchor Obstructive Pulmonary Disease Myocardial Infarction pulmonary edema, Pulmonary Embolism reactive airway disease. Antibiotic administration: Not indicated. The patient's Wells Deep Vein Thrombosis Score was calculated as follows: Total Score: 0-2 Pts- Low Risk. The patient's pulmonary embolism risk score was calculated as follows: Total Score: 0-2 points. This patient was found to be at low risk for a pulmonary embolism by using the Well's assessment criteria. Immunization status: Pneumococcal vaccine: Influenza vaccine: Data reviewed: vital signs, nurses notes, lab test result(s), EKG, radiologic studies, CT scan, plain films. Data interpreted: portfolio analyst: rate is 63 beats/min, Pulse oximetry: on room air is 100 %. Test interpretation: by ED physician or midlevel provider: ECG, plain radiologic studies. Counseling: I had a detailed discussion with the patient and/or guardian regarding: the historical points, exam findings, and any diagnostic results supporting the discharge/admit diagnosis, lab results, radiology results, the need for outpatient follow up, for definitive care, 08/17 08:41 Order name: Basic Metabolic Panel; Complete Time: 10:15 [facility] 08/17 08:41 Order name: CBC with Diff; Complete Time: 10:15 [facility] 08/17 08:41 Order name: LFT's; Complete Time: 10:15 [facility] 08/17 08:41 Order name: Magnesium; Complete Time: 10:15 [facility] 08/17 08:41 Order name: NT PRO-BNP; Complete Time: 10:15 [facility] 08/17 08:41 Order name: PT-INR; Complete Time: 10:15 [facility] 08/17 08:41 Order name: Troponin HS; Complete Time: 10:15 [facility] 08/17 08:41 Order name: XRAY Chest (1 view); Complete Time: 10:22 [facility] 08/17 08:41 Order name: Lipase; Complete Time: 10:15 [facility] 08/17 08:41 Order name: COVID-19/FLU A+B; Complete Time: 10:15 [facility] 08/17 09:40 Order name: Urine Dipstick-Ancillary; Complete Time: 10:15 [facility] 08/17 10:29 Order name: Urine Microscopic Only [facility] 08/17 08:41 Order name: EKG; Complete Time: 08:42 [facility] 08/17 08:41 Order name: Cardiac monitoring; Complete Time: 09:13 [facility] 08/17 08:41 Order name: EKG - Nurse/Tech; Complete Time: 09:13 [facility] 08/17 08:41 Order name: IV Saline Lock; Complete Time: 09:29 [facility] 08/17 08:41 Order name: Labs collected and sent; Complete Time: 09:29 [facility] 08/17 08:41 Order name: O2 Per Protocol; Complete Time: 09:29 [facility] 08/17 08:41 Order name: O2 Sat Monitoring; Complete Time: 09:29 [facility] 08/17 08:41 Order name: Urine Dipstick-Ancillary (obtain specimen); Complete Time: 09:38 [facility] 08/17 10:35 Order name: CONS Physician Consult [facility] 08/17 11:26 Order name: Diet Heart Healthy; Complete Time: 11:27 ph EC:25 Rate is 64 beats/min. QRS [place] is Normal. [place] interval is normal. QRS interval is melchor normal. QT interval is normal. No Q waves. T waves are Normal. ST Segment is depressed in leads I, aVL, V6. Clinical impression: NSR w/ Non-specific ST/T Changes. Interpreted by me. Reviewed by me. Administered Medications: 09:29 Drug: Lasix (furosemide) 40 mg Route: IVP; Site: left antecubital; ph 15:35 Follow up: Response: No adverse reaction ph 11:35 Drug: Rocephin (cefTRIAXone) 1 grams Route: IV; Rate: per protocol; Site: left ph antecubital; 12:05 Follow up: Response: No adverse reaction; IV Status: Completed infusion ph 11:40 Drug: SOLU-Medrol (methylPrednisoLONE) 125 mg Route: IVP; Site: left antecubital; ph 15:35 Follow up: Response: No adverse reaction ph 11:40 Drug: Lovenox (enoxaparin) 70 mg Route: Sub-Q; Site: left lower abdomen; ph 15:35 Follow up: Response: No adverse reaction ph 11:45 Drug: Aspirin 81 mg Route: PO; ph 15:35 Follow up: Response: No adverse reaction ph 11:45 Drug: Xopenex (levalbuterol) 2.5 mg Route: Inhalation; ph 15:35 Follow up: Response: No adverse reaction ph 11:45 Drug: AtroVENT (ipratropium) Aerosol 0.5 mg Route: Inhalation; ph 15:35 Follow up: Response: No adverse reaction ph Disposition Summary: 08/17/22 10:28 Hospitalization Ordered Hospitalization Status: Inpatient Admission melchor Provider: James Linda cha Location: Telemetry/MedSurg (Inpatient) melchor Condition: Fair melchor Problem: new melchor Symptoms: have improved melchor Bed/Room Type: Standard melchor Room Assignment: 404(08/17/22 14:11) eb Diagnosis - Dyspnea melchor - Non ST elevation [place] melchor - COPD/ Chronic obstructive pulmonary disease with acute lower respiratory infection melchor - Diastolic (congestive) heart failure melchor - Essential (primary) hypertension melchor - UTI/ Urinary tract infection, site not specified melchor Forms: - Medication Reconciliation Form melchor - SBAR form melchor Signatures: Dispatcher [employer] EDMS Rito, Unruly, MD MD melchor Drew, Naya, RN RN iw Seo, Jacey, RN RN ph Kelley, Toya eb Corrections: (The following items were deleted from the chart) 14:11 10:28 melchor londono
[2022-08-17 11:06] LABS: Urine Bacteria <20 /HPF (<20)
[2022-08-17] MEDS ORDERED: METHYLPREDNISOLONE 125 MG INJ ONE (11:07)
[2022-08-17] MEDS ORDERED: ASPIRIN 81 MG CHEWABLE TABLET ONE (11:07)
[2022-08-17] MEDS ORDERED: NA CHLORIDE 0.9% 100 ML IV ONE (11:08)
[2022-08-17] MEDS ORDERED: ENOXAPARIN 80 MG/0.8 ML SQ ONE (11:08)
[2022-08-17] MEDS ORDERED: CEFTRIAXONE 1000 MG/VIAL ONE (11:08)
[2022-08-17] MEDS ORDERED: IPRATROPIUM BROM 0.5MG/2.5ML ONE (11:08)
[2022-08-17] MEDS ORDERED: LEVALBUTEROL 1.25 MG/3 ML NEB ONE (11:08)
[2022-08-17] MEDS: AMLODIPINE 10 MG TAB PO SCH (15:40)
[2022-08-17] MEDS: SERTRALINE HCL 50 MG TAB PO SCH (15:41)
[2022-08-17 15:56] VITALS: BMI 26.6
[2022-08-17] MEDS ORDERED: ACETAMINOPHEN 500 MG TAB PO PRN (16:00)
[2022-08-17] MEDS ORDERED: ALBUTEROL 2.5 MG/3 ML NEB SOL NEB PRN (16:00)
[2022-08-17] MEDS ORDERED: IPRATROPIUM BROM 0.5MG/2.5ML NEB PRN (16:00)
[2022-08-17] MEDS ORDERED: ONDANSETRON 4 MG/2 ML VIAL IV PRN (16:00)
[2022-08-17] MEDS: METHYLPREDNISOLONE 40 MG INJ IV SCH (16:54)
[2022-08-17] MEDS ORDERED: FUROSEMIDE 20 MG/ 2ML VIAL IV SCH (17:00)
[2022-08-17] MEDS ORDERED: ALPRAZOLAM 0.25 MG TABLET PO PRN (20:20)
[2022-08-17] MEDS: POTASSIUM 25 MEQ EFFERV TAB PO SCH (20:36)
[2022-08-17] MEDS: PREGABALIN 50 MG CAP PO SCH (20:36)
[2022-08-17] MEDS: FAMOTIDINE 20 MG/2 ML VIAL IV SCH (20:36)
[2022-08-17] MEDS: lisinopriL 20 MG TAB PO SCH (20:37)
[2022-08-17] MEDS: TICAGRELOR 90 MG TABLET PO SCH (20:37)
[2022-08-17] MEDS: HYDRALAZINE HCL 10 MG TABLET PO SCH (20:37)
[2022-08-17] MEDS: DULOXETINE 30 MG CAP PO SCH (20:37)
[2022-08-17] MEDS ORDERED: ATORVASTATIN 40 MG TAB PO SCH (21:00)
--- NOTE | 2022-08-17 21:33 | HP ---
Date of Admission: 08/17/2022 Chief Complaint: Shortness of breath. History Of Present Illness: This is a 77-year-old very pleasant female patient who came into emergen cy room with few days history of increasing shortness of breath. After patient was evaluated in the emergency room, she was admitted to the hospital. I saw her in the emergency room this morning. Her and daughter both were present at bedside. Allergies: TO CODEINE CAUSING NAUSEA. Medication List: Reviewed. Review of Systems: Respiratory: As mentioned above. All other systems reviewed and negative. Past Medical History: Significant for peripheral vascular disease, hypothyroidism, COPD, hypertensio n, hyperlipidemia, paroxysmal atrial fibrillation, coronary artery disease, peripheral vascular disea se, aortic atherosclerosis, gastroesophageal reflux disease, kidney stone, osteoarthritis at multiple sites, anemia, anxiety, hypokalemia, hypomagnesemia, chronic diastolic heart failure. She had cardi oversion done for atrial fibrillation on February 28, 2022, and it was successful and she converted back to sinus rhythm at that time. Past Surgical History: Coronary artery angioplasty with stent placement on December 19, 2019; Watchman p rocedure on November 20, 2021; right leg stent in May 2021, left leg stent in 2000, cholecystectomy , hysterectomy, back surgery, cervical spine surgery. Family History: Father had heart disease. Mother had diabetes. Social History: Prior history of smoking, not at present time. Use of alcohol negative. Physical Examination: Vital Signs: Height 5 feet 7 inches, weight pounds. Temperature , pulse ____, respiratory rate , blood pressure , oxygen saturation . General: Awake, alert, oriented, not in distress. HEENT: Head atraumatic, normocephalic. Conjunctivae nonerythematous. Sclerae white. Mouth, no thr ush or edema noted. Ears/Nose, no mass, lesion, discharge noted. Neck: Supple. No JVD, lymph nodes, bruit, thyromegaly noted. Lungs: Presence of some rales noted in lower lung field. Not using any accessory muscles of respira tion. Heart: Normal heart sounds, no murmur or gallop. Abdomen: Soft, bowel sounds normal. No guarding, rigidity, tenderness, mass, hepatosplenomegaly, dis tention, or bruit noted. Extremities: No leg edema. No cyanosis. No redness. Right foot fourth toe on the dorsum aspect sanchez s superficial open about 4-5 mm around open wound which is improving as per the patient's daughter an d she applies topical cream as prescribed by her vascular surgeon. Skin: No rash, ulcer, cellulitis. Lymphatics: No lymph node enlargement in neck, supraclavicular, infraclavicular region. Neuro: No focal neurological deficit. Chest: Unremarkable. External Genitalia: Deferred. Rectal: Deferred. Laboratory Data: White count 6.6, hemoglobin 10.7, platelets 393. Influenza A, B, and COVID-19 test negative. Sodium 139, potassium 4.3, chloride 107, bicarb 25, BUN 23, creatinine 1.30, glucose 109. Liver function tests unremarkable except AST 39. Troponin elevated at 258. BNP 1112. Urinalysis: Trace esterase, trace blood, 3+ protein. Impression: 1.Chronic diastolic heart failure, with acute exacerbation. 2.Acute exacerbation of chronic obstructive pulmonary disease. 3.Rule out myocardial infarction. 4.Hypertension. 5.Paroxysmal atrial fibrillation. 6.Peripheral vascular disease. 7.Coronary artery disease. 8.Hyperlipidemia. 9.Aortic atherosclerosis. 10.Anxiety. 11.Osteoarthritis, multiple sites. Plan: Admit patient to hospital for further evaluation and management of this problem. Patient is a ppropriate for inpatient and is expected to spend 2 midnights in hospital. We will consult Cardiolog y. Her elevated troponin level could be due to demand ischemia, but we will further decis ion. Anticoagulation therapy will be given per order. For hypertension, we will give antihypertensi ve medication. Monitor blood pressure. If necessary, adjust medication. For hyperlipidemia, we carson l go ahead and give her statin therapy per order. For her shortness of breath, it is due to acute ex acerbation of COPD and congestive heart failure, we will go ahead and give diuretic therapy, oxygen n ebulizer treatment, IV steroids. We will see her tomorrow for followup. Details and plan of treatme nt discussed with the patient and her family members. LUIS/MODL Voice ID: [id number]
[2022-08-18] MEDS: METHYLPREDNISOLONE 40 MG INJ IV SCH ×2 (00:10→08:42)
[2022-08-18 03:50] LABS: Absolute Lymphocytes (CBC) 0.3 K/uL (0.7-4.9); Hematocrit 27.6 % (36.0-45.0); Lymphocytes % 5.9 % (15.3-44.8); MCV 73.2 fL (80-100); RBC Red Blood Cell Count 3.77 M/uL (3.86-4.86)
[2022-08-18 04:04] LABS: Potassium 3.9 mmol/L (3.5-5.1)
[2022-08-18 04:55] LABS: Blood Morphology Comment NOTED (NOT SEEN); Platelet Estimate ADEQ; Teardrop Cell 1+
[2022-08-18] MEDS ORDERED: LEVOTHYROXINE SOD 0.1 MG TAB PO SCH (06:30)
--- NOTE | 2022-08-18 07:21 | RAD REPORT ---
EXAM DESCRIPTION: RAD - Chest Single View - 08/18/2022 6:24 am CLINICAL HISTORY: Chest Pain COMPARISON: Portable 08/17/2022 TECHNIQUE: AP portable chest image was obtained 08/18/2022 6:24 am . FINDINGS: No new mass or consolidation. Subtle increased density in the right apex is believed to be the affects of the overlying first rib. No similar finding seen on the prior day study. Interstitial markings remain prominent. This is believed to be baseline for the patient but could mask mild inter stitial edema or infiltrate. Heart and vasculature are normal. No measurable pleural effusion and no pneumothorax. No acute bony abnormality seen. No acute aortic findings suspected. IMPRESSION: Stable portable chest as detailed.
[2022-08-18] MEDS ORDERED: INFLUENZA VACCINE (for 6+ mo) 0.5 ML DOSE IMVAC ONE (08:00)
[2022-08-18] MEDS: PREGABALIN 50 MG CAP PO SCH (08:40)
[2022-08-18] MEDS: lisinopriL 20 MG TAB PO SCH (08:40)
[2022-08-18] MEDS: POTASSIUM 25 MEQ EFFERV TAB PO SCH (08:41)
[2022-08-18] MEDS: DULOXETINE 30 MG CAP PO SCH (08:41)
[2022-08-18] MEDS: HYDRALAZINE HCL 10 MG TABLET PO SCH (08:41)
[2022-08-18] MEDS: SERTRALINE HCL 50 MG TAB PO SCH (08:41)
[2022-08-18] MEDS: FAMOTIDINE 20 MG/2 ML VIAL IV SCH (08:42)
[2022-08-18] MEDS: AMLODIPINE 10 MG TAB PO SCH (08:42)
[2022-08-18 08:43] VITALS: BP 172/70
[2022-08-18] MEDS ORDERED: AMIODARONE HCL 200 MG TAB PO SCH (09:00)
[2022-08-18] MEDS ORDERED: ASPIRIN EC 81 MG TAB PO SCH (09:00)
[2022-08-18] MEDS ORDERED: ENOXAPARIN 40 MG/0.4 ML SQ SCH (09:00)
[2022-08-18 09:36] VITALS: TEMP 97.9
[2022-08-18] MEDS: TICAGRELOR 90 MG TABLET PO SCH (09:41)
[2022-08-18 10:04] VITALS: O2SAT 94
--- NOTE | 2022-08-18 11:38 | CON ---
Date of Consultation: 08/18/2022 Reason For Consultation: COPD and congestive heart failure. History Of Present Illness: Ms. Staton is 77. Recently had a cardioversion for atrial fibrilla tion and remained on amiodarone for that and remained in sinus rhythm. Has had a Watchman procedure before. She has a history of hypertension, dyslipidemia, depression, neuropathy, gastroesophageal re flux disease, and hypothyroidism. She also has a history of CAD, status post stent. She has a histo ry of PAD, status post angioplasty. Comes in with shortness of breath, diuresed with 20 mg of Lasix fairly well overnight. Dr. Linda and I think that she probably had more of COPD exacerbation rather t mcclain CHF. Nevertheless, she admitted to eating too much salt and was instructed to be careful with th at. Allergies: SHE IS ALLERGIC TO CODEINE. Review of Systems: Negative. Social History: Negative. Family History: Negative. Medications: Include Xanax, Lipitor Norvasc, Lasix, hydralazine, Synthroid, Lyrica, Brilinta, and li sinopril. Physical Examination: Vital Signs: Stable, sinus rhythm, afebrile. HEENT: Negative. Neck: Supple with no bruit. Chest: Clear to auscultation and percussion. Cardiac: Revealed a regular rhythm and rate. No murmurs, gallops, or rubs. Abdomen: Benign. Extremities: Revealed no clubbing, cyanosis, or edema. Diagnostic Data: Includes a recent normal echocardiogram, sinus rhythm on EKG. Creatinine 1.49, hem oglobin 8.7, troponin is 230. BNP is 1506. Chest x-ray is unremarkable. EKG is normal. Impression And Plan: 1.Chronic obstructive pulmonary disease exacerbation. 2.Renal insufficiency. 3.Mild anemia. 4.Elevated troponin and BNP secondary to demand ischemia. 5.Anxiety. 6.Dyslipidemia. 7.Hypertension, well controlled. 8.Coronary artery disease, status post percutaneous coronary intervention, stable. 9.Peripheral arterial disease, stable. 10.Atrial fibrillation, in sinus rhythm, status post cardioversion, has a Watchman. No need for ant icoagulation. Continue present regimen. Her other problems include gastroesophageal reflux disease, depression, neuropathy, and hypothyroidism, all those problems are stable. Again, I agree with her present regimen. I am comfortable with her going home. I will see her in the office in the near fut ure. It may be reasonable to add a very low dose Lasix to her regimen when she goes home. She will keep an eye on her weight and her salt intake for sure. RADHA/STEPHANI Voice ID: [id number] Report ID: [id number]
--- NOTE | 2022-08-18 13:48 | EKG ---
Test Date: 2022-08-17 Test Time: 08:53:49 Visual Inspector: EARNEST MEASUREMENT RESULTS: Intervals: Rate: 64 ME: 142 QRSD: 76 QT: 506 QTc: 522 [place]: P: 90 ME: 142 QRS: 50 T: 79 INTERPRETIVE STATEMENTS: Normal sinus rhythm Prolonged QT Abnormal ECG Compared to ECG 03/04/2022 09:31:13 Myocardial infarct finding no longer present Electronically Signed On 08-18-22 13:46:20 SLATE WORKER by Ortiz Domingo
--- NOTE | 2022-08-18 13:48 | EKG ---
Test Date: 2022-08-17 Test Time: 08:54:22 [employer] Advisor: EARNEST MEASUREMENT RESULTS: Intervals: Rate: 64 LA: 136 QRSD: 78 QT: 504 QTc: 519 [place]: P: 84 LA: 136 QRS: 42 T: 105 INTERPRETIVE STATEMENTS: Normal sinus rhythm ST & T wave abnormality, consider lateral ischemia Prolonged QT Abnormal ECG Compared to ECG 08/17/2022 08:53:49 ST (T wave) deviation now present Possible ischemia now present Electronically Signed On 08-18-22 13:46:18 COOKY PACKER by Ortiz Domingo
--- NOTE | 2022-08-18 14:09 | ECHO ---
HEIGHT: 5 ft 7 in WEIGHT: 169 lb 15.975 oz DATE OF STUDY: 08/18/[address]: 2-DIMENSIONAL: YES M.MODE: YES DOPPLER: YES COLOR FLOW: YES TDS: PORTABLE: YES DEFINITY: BUBBLE STUDY: DIAGNOSIS: CONGESTIVE HEART FAILURE CARDIAC HISTORY: CATHERIZATION: YES SURGERY: NO PROSTHETIC VALVE: NO PACEMAKER: NO MEASUREMENTS (cm) DIASTOLIC (NORMALS) SYSTOLIC (NORMALS) IVSd 1.1 (0.6-1.2) LA Diam 2.7 (1.9-4.0) LVEF 60-65% LVIDd 5.6 (3.5-5.7) LVIDs 2.7 (2.0-3.5) %FS 53% LVPWd 1.1 (0.6-1.2) Ao Diam 3.0 (2.0-3.7) 2 DIMENSIONAL ASSESSMENT: RIGHT ATRIUM: NORMAL LEFT ATRIUM: NORMAL RIGHT VENTRICLE: NORMAL LEFT VENTRICLE: NORMAL TRICUSPID VALVE: MILD TRICUSPID REGURGITATION MITRAL VALVE: MILD MITRAL REGURGITATION PULMONIC VALVE: NORMAL AORTIC VALVE: NORMAL PERICARDIAL EFFUSION: NONE AORTIC ROOT: NORMAL LEFT VENTRICULAR WALL MOTION: NORMAL DOPPLER/COLOR FLOW: MILD TRICUSPID REGURGITATION, MILD MITRAL REGURGITATION COMMENTS: 1. NORMAL LEFT VENTRICULAR EJECTION FRACTION 60-65% 2. NORMAL WALL MOTION 3. MILD MITRAL REGURGITATION 4. MILD TRICUSPID REGURGITATION 5. GRADE I DIASTOLIC DYSFUNCTION TECHNOLOGIST: EVENS ZAVALA
--- NOTE | 2022-08-19 01:28 | DS ---
Date of Discharge: 08/18/2022 Disposition: Discharged to go home. Physical Examination: HEENT: Unremarkable. Lungs: Clear to auscultation. No wheezing, no rales, not in any respiratory distress. Heart: Sounds normal. Abdomen: Soft. Bowel sounds normal. No guarding, rigidity, tenderness, or distention. Extremities: No leg edema. Discharge Medications And Instructions: 1.Continue all prior home medications. 2.Trelegy inhaler 1 puff by mouth daily and the patient's daughter picked up samples from office and she was instructed about how to use this. Also instructed that the patient should rinse her mouth w ith water after using this inhaler. 3.Prednisone 10 mg tablet the patient to take 3 tablets daily for 3 days, then 2 tablets daily for 3 days, then 1 tablet daily for 3 days, and then stop. 4.Follow up at my office next week. Hospital Course: This is a 77-year-old pleasant female patient admitted to the hospital after she ca me into emergency room with complaints of shortness of breath. Please see dictated H and P for more information. The patient came into our hospital yesterday and after she was evaluated in the ER, she was admitted to the hospital. The patient received IV Lasix, IV steroid therapy, and oxygen nebuliz er treatment. Overall, her condition improved. The patient's room air oxygen saturation is 95% to 9 7% today. Overall, she feels a lot better and medically, she is stable for discharge. Discharge Diagnoses: 1.Acute exacerbation of chronic obstructive pulmonary disease. 2.Hypertension. 3.Hyperlipidemia. 4.Peripheral vascular disease. LUIS/MODL Voice ID: [id number] Report ID: [id number]
== END 2022-08-18 10:59 | disposition home or self-care (01) ==
LOC: ER 08:31 → ERHOLD 10:31 → INTOOBSV 10:31 → 4TH 14:57
PROVIDERS: ADMIT Internal Medicine; ATTEND Internal Medicine
DX: J44.1 Chronic obstructive pulmonary disease with (acute) exacerbation (principal); I73.9 Peripheral vascular disease, unspecified; E03.9 Hypothyroidism, unspecified; I10 Essential (primary) hypertension; I48.0 Paroxysmal atrial fibrillation; I25.10 Atherosclerotic heart disease of native coronary artery without angina pectoris; K21.9 Gastro-esophageal reflux disease without esophagitis; I70.0 Atherosclerosis of aorta; D64.9 Anemia, unspecified; F41.9 Anxiety disorder, unspecified; E87.6 Hypokalemia; E78.5 Hyperlipidemia, unspecified; Z20.822 Contact with and (suspected) exposure to COVID-19
CPT/HCPCS: 96365; 93005 ×2; 93306; 85025 ×2; 80048 ×2; 36415; 83735; 85610; 80076; 84484 ×3; 83690; 83880 ×2; 0240U; 71045 ×2; 96375; 96372; 99285; J1940 ×2; J7614; J7644; J1650; J2930; J2405; J2920 ×3; 81003; 81015; G0378

== ENCOUNTER 2022-08-19 10:02 | Inpatient (IN) | payer OTHER ==
--- OUTSIDE RECORDS SUMMARY | 2022-08-19 10:08 | XMS REPORT | Continuity of Care Document ---
:1945 Author Organization [facility] t Address [address] [place] [address] Dr. [address]. [address] [place] [address] Care Team Providers Name Role Phone Asked, No Pcp Primary Care Physician Unavailable ARASH CONNELL Attending Clinician Unavailable [id number] Attending Clinician Unavailable ARASH CONNELL Attending Clinician Unavailable RICHIE MARTIN Attending Clinician Unavailable Ortiz Domingo Attending Clinician Unavailable Kenny Medley Attending Clinician Unavailable LAKSHMI VELEZ Attending Clinician Unavailable [id number] Admitting Clinician Unavailable ARASH CONNELL Admitting Clinician Unavailable Jayy Linda Admitting Clinician Unavailable Ortiz Domingo Admitting Clinician Unavailable Payers Payer Name Policy Type Policy Number Effective Date Expiration Date S juan AET[employer] MEDICARE [id number] 2020 2024 PPO 00:00:00 00:00:00 Problems Condition Condition Condition Status Onset Resolution Last Treating Co mments Source Name Details Category Date Date Treatment Clinician Date Post-opera Post-opera Disease Active U T tive state tive state 2 He alth 00:00: 00 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 06 He alth foot, foot, 00:00: limited to [...] Source Name Type Date Date Clinician Rober Propi Active GI 2021-09 " It Methodi ty to Intolerance 0-[address] adverse 00:00: [facility] reaction 00 hernia" l s to drug No Known DA Active U [facility] Allergie 3-07 Clear s 00:00: [place] 00 [facility] codeine DA Active [place] [facility] HIATAL 3-07 Clear HERNIA 00:00: [place] 00 [facility] Codeine Allergy Active Unknown [facility] to 7-17 Health substan 00:00: e 00 Social History Social Habit Start Date Stop Date Quantity Comments Source Tobacco use and 2021-06-28 2021-06-28 Smokeless tobacco [facility] exposure 00:00:00 00:00:00 non-user Sex Ass[birth year] Nondenominational 00:00:00 00:00:00 Hospital Smoking Status Start Date Stop Date Source Tobacco smoking consumption unknown [facility] Smokes tobacco daily 2021-06-28 00:00:00 [facility] Medications Ordered Filled Start Stop Current Ordering Indication Dosage Frequency Signature Comments Components Source Medication Medication Date Date Medication? Clinician (SIG) Name Name acetaminoph Yes [id number] 1{tbl} Take 1 UT en-codeine 5-02 tablet by Heal th (TYLENOL/CO 00:00: mouth DEINE #3) 00 every 4 300-30 MG (four) tablet hours if needed for severe pain. naloxone 2022- No [id number] .4mg Administer UT (Narcan) 2 11-18-08 0.4 mL Health MG/2ML 00:00: 05:59 (0.4 mg injection 00 :00 total) into affected nostril(s) if needed for opioid reversal. May repeat every 2-3 minutes as needed until medical assistance available. naloxone 2022- No [id number] .4mg Administer UT (Narcan) 2 11-18-08 0.4 mL Health MG/2ML 00:00: 05:59 (0.4 mg injection 00 :00 total) into affected nostril(s) if needed for opioid reversal. May repeat every 2-3 minutes as needed until medical assistance available. naloxone No [id number] .4mg Administer UT (Narcan) 2 11-18- 0.4 mL Health MG/2ML 00:00: 05:59 (0.4 mg injection 00 :00 total) into affected nostril(s) if needed for opioid reversal. May repeat every 2-3 minutes as needed until medical assistance available. naloxone No [id number] .4mg Administer UT (Narcan) 2 11-18 0.4 mL Health MG/2ML 00:00: 05:59 (0.4 mg injection 00 :00 total) into affected nostril(s) if needed for opioid reversal. May repeat every 2-3 minutes as needed until medical assistance available. traMADol No [id number] 50mg Take 1 UT (Ultram) 50 11-18 [...] 12:07: 12 ASPIRIN 2020-09 Yes Take by ME ADULT PO 2-06 mouth. Health 12:07: 12 Apixaban 2020-09 Yes Take by UT (ELIQUIS 2-06 mouth. Health PO) 12:07: 12 ASPIRIN 2020-09 Yes Take by ME ADULT PO 2-06 mouth. Health 12:07: 12 Apixaban 2020-09 Yes Take by UT (ELIQUIS 2-06 mouth. Health PO) 12:07: 12 ASPIRIN 2020-09 Yes Take by ME ADULT PO 2-06 mouth. Health 12:07: 12 Apixaban 2020-09 Yes Take by ME (ELIQUIS 2-06 mouth. Health PO) 12:07: 12 ASPIRIN 2020-09 Yes Take by ME ADULT PO 2-06 mouth. Health 12:07: 12 traMADol 2020-09- No [id number] 50mg Take 1 U T (Ultram) 50 1-02 11-08 tablet (50 H ealth MG tablet 00:00: 05:59 mg total) 00 :00 by mouth every 8 (eight) hours if needed for severe pain for up to 5 days. traMADol 2020-09- No [id number] 50mg Q6H Take 1 U T (Ultram) [...] MCG tablet tamsulosin 0 Yes UT (Flomax) 9- Health 0.4 MG 24 00:00: hr capsule 00 amLODIPine Yes UT (Norvasc) 9- Health 10 MG 00:00: tablet 00 levothyroxi 2020-0 Yes UT ne 9-19 Health (Synthroid, 00:00: Levoxyl) 00 100 MCG tablet tamsulosin Yes UT (Flomax) 9 Health 0.4 MG 24 00:00: hr capsule 00 amLODIPine 2021-0 Yes UT (Norvasc) 9-19 Health [...] MCG tablet tamsulosin 2020-0 Yes UT (Flomax) 9 Health 0.4 MG 24 00:00: hr capsule 00 amLODIPine 1-0 Yes UT (Norvasc) 9 Health 10 MG 00:00: tablet 00 levothyroxi 2020-0 Yes UT ne 9-19 Health (Synthroid, 00:00: Levoxyl) 00 100 MCG tablet tamsulosin 2020-0 Yes UT (Flomax) 9 Health 0.4 MG 24 00:00: hr capsule 00 amLODIPine 1-0 Yes UT (Norvasc) 9 Health 10 MG 00:00: tablet 00 levothyroxi 1-0 Yes UT ne 9-19 Health (Synthroid, 00:00: Levoxyl) 00 100 MCG tablet tamsulosin 2020-0 Yes UT (Flomax) 9-19 Health 0.4 MG 24 00:00: hr capsule 00 ALPRAZolam 2020-0 Yes UT (Xanax) 9 Health 0.25 MG 00:00: tablet 00 ALPRAZolam 2020-0 Yes UT (Xanax) 908 Health 0.25 MG [...] Source Body height 2022-07-09 14:00:00 170.2 cm [facility] Body weight 2022-07-09 14:00:00 73.936 kg [facility] BMI 2022-07-09 14:00:00 25.53 kg/m2 [facility] Procedures Procedure Date / Time Performed Performing Clinician [facility] e CT ANGIOGRAM ABDOMINAL 2022-07-09 15:35:12 [facility] AORTA AND BILATERAL ILIOFEMORAL RUNOFF W WO CONTRAST POC CREATININE 2022-07-09 14:13:00 [facility] ESTIMATED GFR 2022-07-09 14:13:00 [facility] [id number] [facility] Planned Activity Planned Date Details Comments Source Future Scheduled 2022-07-17 HEPATITIS B VACCINES [facility] Test 07:30:39 (1 of 3 - 3-dose series) [code = HEPATITIS B VACCINES (1 of 3 - 3-dose series)] Future Scheduled 2022-07-17 COVID-19 VACCINE (#1) [facility] Test 07:30:39 [code = COVID-19 VACCINE (#1)] Future Scheduled 2022-07-17 Hepatitis C screening [facility] Test 07:30:39 (procedure) [code = 074135577] Future Scheduled 2022-07-17 SHINGLES VACCINES (1 Met [facility] Test 07:30:39 of 2) [code = SHINGLES VACCINES (1 of 2)] Future Scheduled 2022-07-17 INFLUENZA VACCINE Method is Hospital Test 07:30:39 [code = INFLUENZA VACCINE] Future Scheduled 2022-07-17 65+ PNEUMOCOCCAL Methodi [facility] Test 07:30:39 VACCINE (2 - PCV) [code = 65+ PNEUMOCOCCAL VACCINE (2 - PCV)] Future Scheduled 2022-07-17 HEPATITIS B VACCINES [facility] Test 07:30:39 (1 of 3 - 3-dose series) [code = HEPATITIS B VACCINES (1 of 3 - 3-dose series)] Future Scheduled 2022-07-17 COVID-19 VACCINE (#1) [facility] Test 07:30:39 [code = COVID-19 VACCINE (#1)] Future Scheduled 2022-07-17 Hepatitis C screening [facility] Test 07:30:39 (procedure) [code = [id number]] Future Scheduled 2022-07-17 SHINGLES VACCINES (1 Met [facility] Test 07:30:39 of 2) [code = SHINGLES VACCINES (1 of 2)] Future Scheduled 2022-07-17 INFLUENZA VACCINE Method [facility] Test 07:30:39 [code = INFLUENZA VACCINE] Future Scheduled 2022-07-17 65+ PNEUMOCOCCAL Methodi [facility] Test 07:30:39 VACCINE (2 - PCV) [code = 65+ PNEUMOCOCCAL VACCINE (2 - PCV)] Encounters Start End Encounter Admission Attending Care Care Encounter Source Date/Time Date/Time Type Type Clinicians Facility Department ID 2022-04-03 Outpatient JUSTEN CONNELL SE [id number] 15:59:49 [facility] 2021-11-21 Outpatient [facility] [id number] [place] 10:56:53 Health 2021-11-21 Outpatient [facility] [id number] [place] 10:55:46 Health 2021-10-22 Outpatient [id number] ENCPL CRD [id number] [facility] 10:32:05 [facility] [place] 2021-10-16 Outpatient 3 [id number] ENCPL REF [id number] [facility] 10:31:34 [facility] [place] 2021-10-01 Outpatient GLADIS, [facility] [id number] [place] 01:05:41 [facility] 2021-09-27 Inpatient GLADIS, [facility]SE [facility]SE 7501 14:57:03 [facility] 2021-09-24 Outpatient GLADIS, [facility] [id number] [place] 14:24:58 [facility] 2021-09-16 Outpatient [facility] [id number] [place] 08:56:[address] [facility] 2021-09-16 Outpatient [facility] [id number] [place] 08:54:[address] [facility] 2021-08-19 Outpatient GLADIS, [facility] [id number] [place] 07:57:20 [facility] 2021-08-19 Outpatient [facility] [id number] [place] 07:56:[address] [facility] 2021-08-19 Outpatient [facility] [id number] [place] 07:55:[address] [facility] 2021-07-23 Outpatient [facility] [id number] [place] 10:43:[address] [facility] 2021-07-23 Outpatient GLADIS, [facility] [id number] UT 10:42:25 [facility] 2021-07-23 Outpatient [facility] [id number] [place] 10:36:[address] [facility] 2022-07-09 2022-07-09 Outpatient DANII, [facility] [id number] [place] 00:00:00 00:00:00 DIVYANG [address] 2022-07-03 2022-07-03 Transcribe Ayar, 1.2.840.1 [id number] Methodi 00:00:00 00:00:00 Orders Divyang C 99927.1.[address] 3.430.2.7 Hospit a .3.707963 l .8 2022-07-03 2022-07-03 Transcribe Ayar, 1.2.840.1 [id number] Methodi 00:00:00 00:00:00 Orders Divyang C [address]444.1.[address] 3.430.2.7 Hospit a .3.002386 l .8 2022-04-29 2022-04-29 Outpatient GLADIS, [facility] [id number] UT 10:00:00 10:00:00 [facility] 2022-01-13 2022-01-13 Office ESPERANZA Connell [facility] 1.2.840.114 [id number] UT 10:00:00 10:15:00 Visit Arash CAMILLA [id number] Celestino lang FABIEN [address].7.[address] [facility] [id number] 1 2022-01-01 2022-01-01 Telephonic ESPERANZA Connell 1.2.840.114 [id number] UT 07:45:00 08:52:16 Encounter Arash SERRANO [id number] [facility] 9.2.7.2.686 [id number] 2 2021-12-18 2021-12-18 Inpatient ANISA Domingo, [facility] OUTD [id number] [facility] 05:16:00 05:16:00 Ortiz 70 [facility] 2021-12-04 2021-12-04 Telephonic ESPERANZA Connell 1.2.840.114 [id number] UT 07:45:00 08:47:54 Encounter Arash SERRANO [id number] [facility] 9.2.7.2.686 [id number] 2 2021-11-20 2021-11-21 Inpatient ANISA Medley, [facility]L INTE.02 [id number] [facility] 14:27:00 13:39:00 [place] 30 [facility] 2021-11-18 2021-11-18 Office ESPERANZA CONNELL [facility] 1.2.840.114 [id number] UT 10:00:00 10:15:00 Visit ARASH CAMILLA [id number] Celestino rickey CONN [address].7.[address] [facility] [id number] 2021-11-06 2021-11-06 Office ESPERANZA Connell 1.2.840.114 [id number] UT 10:45:00 11:24:42 Visit Arash SERRANO 350.1.13.58 [facility] 9.2.7.2.686 [id number] 2021-09-27 2021-09-27 Emergency E ROSIE, DANIASE MHSE [id number] MH 16:11:00 16:11:00 LAKSHMI [facility] anitra [facility] 2021-07-16 2021-07-16 Office ESPERANZA Connell [facility] 1.2.840.114 [id number] UT 09:51:23 10:45:55 Visit [facility] [id number] Celestino lang PLAMACIEJ 1 9.2.7.2.686 [id number] 2 2021-06-28 2021-06-28 Office ESPERANZA Connell [facility] 1.2.840.114 [id number] UT 09:49:14 10:45:59 Visit [facility] 350.1.13.58 Celestino alth PLAZA 1 9.2.7.2.686 [id number] 2 2021-06-16 2021-06-16 Outpatient PRIV PRIV [id number] [facility] 00:00:00 00:00:00 [id number] Medica l Results Test Description Test Time [...] x10 3/uL 0.0-0.1 N NRBC#) BASIC METABOLIC [id number] 15:06:00 Test Item Value Reference Range Interpretation [...] code = 8.4 mg/dL 8.0-10.5 N CA) [id number] 12:54:00 Test Item Value Reference Range Interpretation Comments ACT-ISTAT (test code 273 SEC 74-137 H Perform ed 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 = ACTI) power 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 runner operator at [facility] [id number] 12:41:00 Test Item Value Reference Range Interpretation Comments ACT-ISTAT (test code 273 SEC 74-137 H Perform ed 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 = ACTI) 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 BASIC METABOLIC [id number] 12:47:00 Test Item Value Reference Range Interpretation [...] = 8.4 mg/dL 8.0-10.5 N CA) PROTHROMBIN [id number] 12:47:00 Test Item Value Reference Range Interpretation [...] - Acute Myocardia l Infarction (to prevent recurre nt infarct). 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 [facility] BASIC METABOLIC [id number] 07:56:00 Test Item Value Reference Range Interpretation [...] 8.7 mg/dL 8.0-10.5 N CA) CBC W/AUTO [id number] 06:58:00 Test Item Value Reference Range Interpretation [...] = 0.00 x10 3/uL 0.0-0.1 N NRBC#) [id number] 13:45:00 Test Item Value Reference Range Interpretation Comments ACT-ISTAT (test code 261 SEC 74-137 H Perform ed 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 = ACTI) power 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 runner operator at [facility] Ctr - XR CHEST 1 [id number] 00:00:00 [facility] : 1945 Sex: F FAX: Jayy Jefferson MD [phone] [place]: St: ADM FAX: Ortiz Krishnan MD [phone] FAX: Alan Toussaint [phone] Name: EDUARDO [place] [facility] : 1945 Age/S: 76/F [address] [place] [address] Unit #: [id number] Loc: [place] [address] Phys: Alan Toussaint HOUSE STEWARD/STEWARDESS Acct: [id number] Dis Date: Status: ADM IN PHONE #: [phone] Exam Date: 11/20/2021 1558 FAX #: [phone] Reason: WATCHMAN EXAMS: CPT CODE: [id number] XR CHEST 1 V 73759 PROCEDURE INFORMATION: Exam: XR Chest Exam date and time: 11/20/2021 3:38 PM Age: 76 years old Clinical indication: Device placement; Other: Watchman TECHNIQUE: Imaging protocol: XR of the chest. Views: 1 view. COMPARISON: CR XR CHEST 2 V 11/18/2021 3:54 PM FINDINGS: Lungs: See "Pleural spaces" finding. Pleural spaces: No gross active pleural, p arenchymal, or mediastinal abnormalities noted. Heart/Mediastinum: See "Pleural [...] MD; Ortiz Domingo MD; Alan Toussaint Technologist: Shante Perez RT(R) Trnscrd Date/Time/By: 11/20/2021 (9555) : By: [email or web address] Orig Print D/T: S: 11/20/2021 (2600) PAGE 1 Signed [id number] 15:14:00 Test Item Value Reference Range Interpretation Comments PREALBUMIN (test code = PREALB) 12.4 mg/dL 16.0-40.0 L BASIC METABOLIC [id number] 15:14:00 Test Item Value Reference Range Interpretation [...] = 8.3 mg/dL 8.0-10.5 N CA) PROTHROMBIN [id number] 15:06:00 Test Item Value Reference Range Interpretation [...] (to prevent recurrent infar ct). CBC W/AUTO [id number] 14:51:00 Test Item Value Reference Range Interpretation [...] 0.0-0.1 N NRBC#) - XR CHEST 2 [id number] 00:00:00 [facility] : 1945 Sex: F FAX: Jayy Jefferson MD [phone] [place]: St: PRE FAX: Ortiz Krishnan MD [phone] ---- Name: DAVID [place] [facility] : 1945 Age/S: 76/F [address] [place] [address] Unit #: [id number] Loc: [place] [address] Phys: Ortiz Domingo MD Acct: [id number] Dis Date: Status: PRE SDC PHONE #: [phone] Exam Date: 11/18/2021 4431 FAX #: [phone] Reason: PREOP EXAMS: CPT CODE: [id number] XR CHEST 2 V 98816 PROCEDURE INFORMATION: Exam: XR Chest Exam date [...] of acute cardiopulmonary disease. SL: 131 at 2857 Reported and signed by: Saad Arboleda M.D.CC: Jayy Linda MD; Ortiz Domingo MD Technologist: Delmi Muñoz RT(R) Trnscrd Date/Time/By: 11/18/2021 (1789) : By: Richi Orig Print D/T: S: 11/18/2021 (9539) PAGE 1 Signed Report
[2022-08-19 10:51] LABS: Absolute Lymphocytes (CBC) 0.5 K/uL (0.7-4.9); Hematocrit 29.9 % (36.0-45.0); Lymphocytes % 2.6 % (15.3-44.8); MCV 73.9 fL (80-100); MPV 8.2 fL (7.6-11.3); RBC Red Blood Cell Count 4.05 M/uL (3.86-4.86)
[2022-08-19 10:58] LABS: Protime INR 0.95
[2022-08-19 11:13] LABS: ALT/SGPT 69 U/L (12-78); AST/SGOT 76 U/L (15-37); Albumin 3.2 g/dL (3.4-5.0); Alkaline Phosphatase 112 U/L (45-117); BUN Blood Urea Nitrogen 46 mg/dL (7-18); Bicarbonate 25 mmol/L (21-32); Bilirubin Total 0.4 mg/dL (0.2-1.0); Creatine Phosphokinase 50 U/L (26-192); Glomerular Filtration Rate 31 ml/min (=/>90); Glucose Level 114 mg/dL (74-106); NT PRO-BNP 649 pg/mL (<450); Potassium 3.8 mmol/L (3.5-5.1); Protein, Total 7.5 g/dL (6.4-8.2); Sodium Level 137 mmol/L (136-145)
[2022-08-19 11:15] LABS: Bilirubin Direct < 0.1 mg/dL (0-0.2); Troponin High Sensitivity 163.4 pg/mL (<58.9)
[2022-08-19 11:38] LABS: SARS-COV-2 RT PCR NEGATIVE (NEGATIVE)
[2022-08-19 11:54] LABS: Anisocytosis 1+; Blood Morphology Comment NOTED (NOT SEEN); Hypochromasia 1+; Platelet Estimate ADEQ; White Blood Cell Scan OK (OK)
--- NOTE | 2022-08-19 12:16 | RAD REPORT ---
EXAM DESCRIPTION: CT - CTHCSPWOC - 08/19/2022 12:06 pm CLINICAL HISTORY: Trauma, head and neck injury. fall, head injury COMPARISON: No comparisons TECHNIQUE: Axial 5 mm thick images of the head were obtained. Axial 2 mm thick images of the cervical spine were obtained with sagittal and coronal reconstruction images generated and reviewed. All CT scans are performed using dose optimization technique as appropriate and may include automated exposure control or mA/KV adjustment according to patient size. FINDINGS: CT HEAD WITHOUT CONTRAST: No acute hemorrhage, hydrocephalus or extra-axial collection is identified.Moderate generalized brain atrophy is present with advanced periventricular and deep white matter chronic microvascular ischemi c changes.No areas of brain edema or midline shift. Mild mucous retention cysts or polyps in both maxillary antra.The calvarium is intact. CT CERVICAL SPINE WITHOUT CONTRAST: No fracture or subluxation.Bony fusion is present spanning C5-7. 3 mm degenerative anterolisthesis C4 on 5.No prevertebral soft tissues swelling is identified. Upper lung yi are emphysematous. IMPRESSION: No acute intracranial or cervical spine findings. Postoperative fusion changes lower cervical spine.
--- NOTE | 2022-08-19 12:39 | RAD REPORT ---
EXAM DESCRIPTION: Maria C Single View08/19/2022 12:27 pm CLINICAL HISTORY: sob COMPARISON: August 17, 2022 FINDINGS: The lungs appear clear of acute infiltrate. The heart is borderline enlarged IMPRESSION: No acute abnormalities displayed
--- NOTE | 2022-08-19 12:40 | RAD REPORT ---
EXAM DESCRIPTION: RAD - Lumbar Spine 3 Views - 08/19/2022 12:27 pm CLINICAL HISTORY: Pain Radiculopathy COMPARISON: No comparisons FINDINGS: Vertebral body heights appear maintained. No compression fracture noted. Disc thinning is present with small endplate osteophyte, most notable at L4-5. Laminectomy defects are present at L4 a nd L5. Iliac stenting is present. A mild degenerative dextroscoliosis is seen. IMPRESSION: No acute lumbar spine abnormality is seen. Mild lower lumbar degenerative spondylosis with postsurgical changes.
--- NOTE | 2022-08-19 12:43 | RAD REPORT ---
EXAM DESCRIPTION: US - Lower Extremity Arterial Bilat - 08/19/2022 12:25 pm CLINICAL HISTORY: Pain Bilateral leg claudication. COMPARISON: Lower Extremity Artery Uni Ltd dated 06/02/2022 TECHNIQUE: Bilateral lower extremity arterial Doppler examination was performed with grayscale, colo r and Doppler interrogation. FINDINGS: There is a patent right SFA stent. Right-sided flow is partially triphasic and biphasic with adequate amplitude. Left lower extremity arterial flow is diffusely monophasic and blunted suggesting moderate inflow sven nosis. No complete occlusion seen. IMPRESSION: Diffusely monophasic and blunted left lower extremity arterial flow is seen. This likely is related a significant inflow stenosis. No complete occlusion is seen.
--- NOTE | 2022-08-19 12:53 | ER ---
Nurse's Notes [facility] Name: Neela Staton Age: 77 yrs Sex: Female : 1945 Arrival Date: 08/19/2022 Time: 10:04 Bed 15 Private MD: Diagnosis: Unspecified injury of head, initial encounter;Fall on same level from slipping, tripping and stumbling with subsequent striking against object;Facial weakness Presentation: 08/19 10:06 Chief complaint: EMS states: family called and stated the has low blood pressure. kc6 client got weak and fell back against a wall. no LOC. Ebola Screen: No symptoms or risks identified at this time. Initial Sepsis Screen: Does the patient meet any 2 criteria? No. Patient's initial sepsis screen is negative. Does the patient have a suspected source of infection? No. Patient's initial sepsis screen is negative. Risk Assessment: Do you want to hurt yourself or someone else? Patient reports no desire to harm self or others. Onset of symptoms was August 19, 2022. 10:06 Method Of Arrival: EMS: [facility] kc6 10:06 Acuity: BETHANY 2 kc6 10:13 Coronavirus screen: Vaccine status: Patient reports receiving the 2nd dose of the covid kc6 vaccine. At this time, the client does not indicate any symptoms associated with coronavirus-19. Triage Assessment: 10:10 General: Appears in no apparent distress. comfortable, Behavior is calm, cooperative, kc6 appropriate for age. Pain: Complains of pain in left low back and right low back Pain does not radiate. Also complains of no other associated symptoms. Unable to use pain scale. Patient appears quiet, FLACC scale score is 0 out of 10. EENT: No signs and/or symptoms were reported regarding the EENT system. Neuro: Wade Agitation-Sedation Scale (RASS): 0 - Alert and Calm Level of Consciousness is awake, alert, obeys commands, Oriented to person, place, time, situation, Appropriate for age. Cardiovascular: Heart tones S1 S2 present Capillary refill < 3 seconds. Respiratory: Airway is patent Trachea midline Respiratory effort is even, unlabored, Respiratory pattern is regular, symmetrical, Breath sounds are clear bilaterally. GI: No signs and/or symptoms were reported involving the gastrointestinal system. : No signs and/or symptoms were reported regarding the genitourinary system. Derm: No signs and/or symptoms reported regarding the dermatologic system. Skin is intact, Skin is pink, warm \T\ dry. Musculoskeletal: No signs and/or symptoms reported regarding the musculoskeletal system. Circulation, motion, and sensation intact. Capillary refill < 3 seconds, Range of motion: intact in all extremities. Historical: - Allergies: 10:15 Codeine; kc6 - Home Meds: 12:18 Aspirin Oral [Active]; Cymbalta 60 mg oral cpDR [Active]; levothyroxine 100 mcg oral kc6 cap [Active]; furosemide 40 mg oral tab [Active]; lisinopril 20 mg oral tab [Active]; potassium chloride 20 mEq oral TbER [Active]; amlodipine 10 mg oral tab [Active]; magnesium oxide 400 mg magnesium oral tab [Active]; Brilinta 90 mg oral tab [Active]; sertraline 25 mg oral tab [Active]; pregabalin 100 mg oral cap [Active]; amiodarone 200 mg oral tab [Active]; dulera 200/5mcg 2puffs 2xday [Active]; - PMHx: 10:15 Atrial fibrillation; Depression; GERD; High Cholesterol; Hypertensive disorder; kc6 Hypothyroidism; neuropathy; - PSHx: 10:15 heart stent; right leg stent; kc6 - Immunization history:: Client reports receiving the 2nd dose of the Covid vaccine, Flu vaccine status is unknown. - Social history:: Smoking status: Patient denies any tobacco usage or history of. - Family history:: not pertinent. - Hospitalizations: : The patient was recently seen at [facility]. Screenin:28 Abuse screen: Denies threats or abuse. Denies injuries from another. Nutritional kc6 screening: No deficits noted. Tuberculosis screening: No symptoms or risk factors identified. 12:29 Fall Risk Fall in past 12 months (25 points). No secondary diagnosis (0 pts). IV access kc6 (20 points). Ambulatory Aid- None/Bed Rest/Nurse Assist (0 pts). Gait- Weak (10 pts.). Mental Status- Oriented to own ability (0 pts). Total Ingram Fall Scale indicates High Risk Score (45 or more points). Fall prevention measures have been instituted. Side Rails Up X 2 Placed Close to Nursing Station Frequent Obs/Assessments Occuring Family Present and informed to notify staff if the need to leave the bedside As available patient and family educated on Fall Prevention Program and Strategies. Assessment: 10:16 Reassessment: please see triage assessment. kc6 11:16 Reassessment: Patient appears in no apparent distress at this time. [facility] from [facility] previously documented assessment. Patient and/or family updated on plan of care and expected duration. Pain level reassessed. Patient is alert, oriented x 3, equal unlabored respirations, skin warm/dry/pink. 12:16 Reassessment: Patient appears in no apparent distress at this time. No changes from 6 previously documented assessment. Patient and/or family updated on plan of care and expected duration. Pain level reassessed. Patient is alert, oriented x 3, equal unlabored respirations, skin warm/dry/pink. 13:13 Reassessment: Patient appears in no apparent distress at this time. No changes from kc6 previously documented assessment. Patient and/or family updated on plan of care and expected duration. Pain level reassessed. Patient is alert, oriented x 3, equal unlabored respirations, skin warm/dry/pink. 14:10 Reassessment: Patient appears in no apparent distress at this time. No changes from kc6 previously documented assessment. Patient and/or family updated on plan of care and expected duration. Pain level reassessed. Patient is alert, oriented x 3, equal unlabored respirations, skin warm/dry/pink. Vital Signs: 10:06 BP 151 / 61; Pulse 61; Resp 16 S; Temp 97.8(O); Pulse Ox 94% on R/A; Weight 70.31 kg kc6 (R); Height 5 ft. 7 in. (170.18 cm) (R); 13:13 BP 160 / 64; Pulse 65; Resp 20 S; Pulse Ox 99% on R/A; kc6 14:10 BP 142 / 57; Pulse 69; Resp 14 S; Pulse Ox 98% on R/A; kc6 10:06 Body Mass Index 24.28 (70.31 kg, 170.18 cm) 6 ED Course: 10:04 Patient arrived in ED. rn 10:05 Robin Dee MD is Attending Physician. rn 10:06 Shreya Shelton RN is Primary Nurse. 6 10:10 Triage completed. kc6 10:19 Radiology exam delayed due to pt had rt leg scanned in may of this year- waiting to hr see if md wants repeated. 10:44 COVID-19/FLU A+B Sent. kc6 10:44 BMP Sent. kc6 10:44 CBC with Diff Sent. kc6 10:44 CPK Sent. kc6 10:44 Hepatic Function Sent. kc6 10:44 NT PRO-BNP Sent. kc6 10:44 PT-INR Sent. kc6 10:44 Ptt, Activated Sent. kc6 10:44 Troponin HS Sent. kc6 10:45 Maintain EMS IV. Dressing intact. Good blood return noted. Site clean \T\ dry. Gauge \T\ sha 6 site: 20G RAC. 12:08 CT Head C Spine In Process Unspecified. EDMS 12:27 Lower Extremity Arterial Bilat US In Process Unspecified. EDMS 12:29 XRAY CXR (1 view) In Process Unspecified. EDMS 12:29 XRAY Lumbar Spine (3 Views) In Process Unspecified. EDMS 12:41 Inserted saline lock: 20 gauge in left forearm, using aseptic technique. Blood jh5 collected. 12:52 James Linda MD is Hospitalizing Provider. rn 13:04 Straight cath inserted, using sterile technique, 16 Fr. Specimen obtained. Patient jd3 tolerated well. 13:04 Arm band placed on. jd3 13:07 Urine Microscopic Only [facility]. [facility] 15:29 No provider procedures requiring assistance completed. Patient admitted, IV remains in [facility] place. 15:29 Patient has correct armband on for positive identification. Bed in low position. Call [facility] light in reach. Side rails up X2. Adult w/ patient. Administered Medications: 13:34 Drug: Calcium Carbonate 500 mg Route: PO; [facility] 15:30 Follow up: Response: No adverse reaction [facility] 13:34 Drug: Magnesium Sulfate 1 grams Route: IVPB; Infused Over: 1 hrs; Site: right [facility] antecubital; 15:30 Follow up: Response: No adverse reaction; IV Status: Completed infusion [facility] Medication: 15:29 VIS not applicable for this client. [facility] Outcome: 12:53 Decision to Hospitalize by Provider. rn 15:29 Admitted to Med/surg accompanied by tech, via stretcher, with chart, Report [facility] to [facility] SUHAIL Granados 15:29 Condition: stable 15:29 Instructed on the need for admit. 16:10 Patient left the ED. kc6 Signatures: Dispatcher [employer] EDMS Oralia Way Roman, MD MD rn Davies, Jonathon, RN RN jd3 Delmi Miranda RN RN jh5 Shreya Shelton RN RN kc6 Corrections: (The following items were deleted from the chart) 10:13 10:06 BP 151 / 61; Pulse 61bpm; Resp 16bpm; Spontaneous; Pulse Ox 94% RA; Temp 97.8F kc6 Oral; kc6 12:29 12:28 Fall Risk None identified. kc6 kc6
--- NOTE | 2022-08-19 12:53 | EDPHYS ---
Physician Documentation [facility] Name: Neela Staton Age: 77 yrs Sex: Female : 1945 Arrival Date: 08/19/2022 Time: 10:04 Bed 15 Private MD: ED Physician Robin Dee HPI: 08/19 10:31 This 77 yrs old Female presents to ER via EMS with complaints of fall, head injury. rn 10:31 Details of fall: The patient fell from an upright position, while walking. Onset: The rn symptoms/episode began/occurred just prior to arrival. Associated injuries: The patient sustained injury to the head, injury to the low back. Severity of symptoms: At their worst the symptoms were mild, in the emergency department the symptoms are unchanged. The patient has experienced similar episodes in the past. The patient has been recently been admitted at [facility]. Pt reports feels generalized weakness, fell while walking, got lightheaded, no syncope, hit head, has pain to head and lower back. Reports was trying to get ready to go to appt today. Reports takes blood thinners. No extremity injury. . Historical: - Allergies: 10:15 Codeine; kc6 - Home Meds: 12:18 Aspirin Oral [Active]; Cymbalta 60 mg oral cpDR [Active]; levothyroxine 100 mcg oral kc6 cap [Active]; furosemide 40 mg oral tab [Active]; lisinopril 20 mg oral tab [Active]; potassium chloride 20 mEq oral TbER [Active]; amlodipine 10 mg oral tab [Active]; magnesium oxide 400 mg magnesium oral tab [Active]; Brilinta 90 mg oral tab [Active]; sertraline 25 mg oral tab [Active]; pregabalin 100 mg oral cap [Active]; amiodarone 200 mg oral tab [Active]; dulera 200/5mcg 2puffs 2xday [Active]; - PMHx: 10:15 Atrial fibrillation; Depression; GERD; High Cholesterol; Hypertensive disorder; kc6 Hypothyroidism; neuropathy; - PSHx: 10:15 heart stent; right leg stent; kc6 - Immunization history:: Client reports receiving the 2nd dose of the Covid vaccine, Flu vaccine status is unknown. - Social history:: Smoking status: Patient denies any tobacco usage or history of. - Family history:: not pertinent. - Hospitalizations: : The patient was recently seen at [facility]. ROS: 10:31 Constitutional: Negative for fever, chills, and weight loss, Eyes: Negative for injury, rn pain, redness, and discharge, Neck: Negative for injury, pain, and swelling, Cardiovascular: Negative for chest pain, palpitations, and edema, Respiratory: Negative for shortness of breath, cough, wheezing, and pleuritic chest pain, Abdomen/GI: Negative for abdominal pain, nausea, vomiting, diarrhea, and constipation, Back: + lower back pain MS/Extremity: Negative for injury and deformity, Skin: Negative for injury, rash, and discoloration, Neuro: + headache and generalized weakness Exam: 10:31 Constitutional: This is a well developed, well nourished patient who is somnolent, rn slow to respond Head/Face: Normocephalic, no laceration Eyes: Periorbital areas with no swelling, redness, or edema. ENT: dry MM Neck: No midline tenderness Chest/axilla: Normal chest wall appearance and motion. Nontender with no deformity. No lesions are appreciated. Cardiovascular: Irregular rhythm, regular rate Respiratory: No increased work of breathing, no retractions or nasal flaring. Diminished breath sounds bilateral bases Abdomen/GI: Soft, non-tender Back: + perispinal lumbar tenderness without ecchymosis Skin: Warm, dry MS/ Extremity: Palpable pulses dorsalis pedis bilaterally, RLE slightly edematous, no cyanosis. Neuro: Awake and alert, GCS 15, oriented to person, place, time, and situation. Cranial nerves II-XII grossly intact. Motor strength 5/5 in all extremities. Sensory grossly intact. Cerebellar exam normal. Normal gait. 12:45 ECG was reviewed by the Attending Physician. rn Vital Signs: 10:06 BP 151 / 61; Pulse 61; Resp 16 S; Temp 97.8(O); Pulse Ox 94% on R/A; Weight 70.31 kg kc6 (R); Height 5 ft. 7 in. (170.18 cm) (R); 13:13 BP 160 / 64; Pulse 65; Resp 20 S; Pulse Ox 99% on R/A; kc6 14:10 BP 142 / 57; Pulse 69; Resp 14 S; Pulse Ox 98% on R/A; kc6 10:06 Body Mass Index 24.28 (70.31 kg, 170.18 cm) 6 MDM: 10:05 Patient medically screened. rn 12:52 Differential diagnosis: closed head injury, contusion. Data reviewed: vital signs, rn nurses notes, lab test result(s), radiologic studies, CT scan, doppler, plain films, and as a result, I will admit patient. Counseling: I had a detailed discussion with the patient and/or guardian regarding: the historical points, exam findings, and any diagnostic results supporting the discharge/admit diagnosis, lab results, radiology results, the need for further work-up and treatment in the hospital. Response to treatment: the patient's symptoms have mildly improved after treatment, and as a result, I will admit patient. Admission orders: after a detailed discussion of the patient's condition and case, the admit orders are written by me. 08/19 10:12 Order name: BMP; Complete Time: 11:18 rn 08/19 10:12 Order name: Blood Culture Adult (2) rn 08/19 10:12 Order name: CBC with Diff; Complete Time: 12:42 rn 08/19 10:12 Order name: CPK; Complete Time: 11:18 rn 08/19 10:12 Order name: Hepatic Function; Complete Time: 11:18 rn 08/19 10:12 Order name: NT PRO-BNP; Complete Time: 11:18 rn 08/19 10:12 Order name: PT-INR; Complete Time: 11:18 rn 08/19 10:12 Order name: Ptt, Activated; Complete Time: 11:18 rn 08/19 10:12 Order name: Troponin HS; Complete Time: 11:18 rn 08/19 10:12 Order name: XRAY CXR (1 view); Complete Time: 12:42 rn 08/19 10:12 Order name: COVID-19/FLU A+B; Complete Time: 12:42 rn 08/19 10:23 Order name: Urine Microscopic Only; Complete Time: 13:29 rn 08/19 10:56 Order name: CBC Smear Scan; Complete Time: 12:42 EDIN 08/19 13:07 Order name: Urine Dipstick-Ancillary; Complete Time: 13:29 EDIN 08/19 10:12 Order name: EKG; Complete Time: 10:13 rn 08/19 10:12 Order name: Cardiac monitoring; Complete Time: 12:28 rn 08/19 10:12 Order name: EKG - Nurse/Tech; Complete Time: 12:28 rn 08/19 10:12 Order name: IV Saline Lock; Complete Time: 10:44 rn 08/19 10:12 Order name: Labs collected and sent; Complete Time: 10:44 rn 08/19 10:12 Order name: O2 Per Protocol; Complete Time: 10:18 rn 08/19 10:12 Order name: O2 Sat Monitoring; Complete Time: 10:18 rn 08/19 10:12 Order name: CT Head C Spine; Complete Time: 12:42 rn 08/19 10:12 Order name: XRAY Lumbar Spine (3 Views); Complete Time: 12:42 rn 08/19 10:12 Order name: Lower Extremity Arterial Bilat US; Complete Time: 12:51 rn 08/19 10:23 Order name: Urine Dipstick-Ancillary (obtain specimen); Complete Time: 13:05 rn 08/19 10:39 Order name: Lower Extremity Arterial Bilat US rn EC:45 Rate is 61 beats/min. Rhythm is regular. QRS [place] is Normal. WA interval is normal. QRS rn interval is normal. QT interval is prolonged. No Q waves. T waves are Normal. No ST changes noted. Clinical impression: NSR w/ Non-specific ST/T Changes and prolonged QT. Interpreted by me. Reviewed by me. Administered Medications: 13:34 Drug: Calcium Carbonate 500 mg Route: PO; [facility] 15:30 Follow up: Response: No adverse reaction [facility] 13:34 Drug: Magnesium Sulfate 1 grams Route: IVPB; Infused Over: 1 hrs; Site: right [facility] antecubital; 15:30 Follow up: Response: No adverse reaction; IV Status: Completed infusion [facility] Disposition Summary: 08/19/22 12:53 Hospitalization Ordered Hospitalization Status: Observation rn Provider: James Linda rn Location: Telemetry/MedSurg (observation) rn Condition: Stable rn Problem: new rn Symptoms: have improved rn Bed/Room Type: Standard rn Room Assignment: 405(08/19/22 14:38) dw Diagnosis - Unspecified injury of head, initial encounter rn - Fall on same level from slipping, tripping and stumbling with subsequent striking rn against object - Facial weakness rn Forms: - Medication Reconciliation Form rn - SBAR form rn Signatures: Dispatcher [employer] Eden Ramos Diana, RN RN dw Nieto, Roman, MD MD rn Campbell, Kaitlyn, RN RN kc6 Corrections: (The following items were deleted from the chart) 14:36 12:53 rn 14:38 14:36 405 bd 14:38 14:38 [facility]
[2022-08-19 13:07] LABS: Urine Blood Negative (Negative); Urine Glucose Negative (Negative); Urine Protein 2+ (Negative); Urine pH 5.5 (5.0-7.0)
[2022-08-19 13:16] LABS: Renal Epithelial <5 /HPF (None Seen); Urine Bacteria <20 /HPF (<20); Urine Mucus Slight /HPF (None Seen); Urine RBC <5 /HPF (None Seen)
[2022-08-19] MEDS ORDERED: MAGNESIUM SULFATE 1 gm IVPB 1 GM/100 ML BAG IV ONE (13:26)
[2022-08-19] MEDS ORDERED: CALCIUM CARBONATE CHEW 500MG TAB ONE (13:29)
[2022-08-19] MEDS ORDERED: ONDANSETRON 4 MG/2 ML VIAL IV PRN (17:07)
[2022-08-19 20:11] VITALS: BMI 25.8
[2022-08-19] MEDS ORDERED: HYDROCODONE/APAP 5/325 MG TAB PO PRN (20:50)
[2022-08-19] MEDS: MORPHINE 2 MG/ML SYR IV PRN (22:42)
[2022-08-20] MEDS: MORPHINE 2 MG/ML SYR IV PRN (02:35)
[2022-08-20 04:48] LABS: Absolute Lymphocytes (CBC) 0.9 K/uL (0.7-4.9); Hematocrit 29.5 % (36.0-45.0); Lymphocytes % 8.7 % (15.3-44.8); MCV 73.8 fL (80-100); MPV 8.2 fL (7.6-11.3)
[2022-08-20 05:04] LABS: Potassium 4.3 mmol/L (3.5-5.1)
[2022-08-20] MEDS: lisinopriL 20 MG TAB PO SCH ×2 (08:39→20:40)
[2022-08-20] MEDS: methocarbamoL 500 MG TAB PO SCH ×3 (08:40→20:40)
[2022-08-20] MEDS: ASPIRIN 81 MG CHEWABLE TABLET PO SCH (08:41)
[2022-08-20] MEDS: LEVOTHYROXINE SOD 0.1 MG TAB PO SCH (08:41)
[2022-08-20] MEDS: AMIODARONE HCL 200 MG TAB PO SCH (08:42)
[2022-08-20] MEDS: PREGABALIN 50 MG CAP PO SCH ×2 (08:42→20:40)
[2022-08-20] MEDS: FUROSEMIDE 40 MG TABLET PO SCH ×2 (08:42→13:09)
[2022-08-20] MEDS: predniSONE 20 MG TAB PO SCH (08:45)
[2022-08-20] MEDS: AMLODIPINE 10 MG TAB PO SCH (08:46)
[2022-08-20] MEDS: SERTRALINE HCL 50 MG TAB PO SCH (08:47)
[2022-08-20] MEDS: DULOXETINE 30 MG CAP PO SCH ×2 (08:47→20:40)
[2022-08-20] MEDS: MAGNESIUM OXIDE 400 MG TAB PO SCH ×2 (08:49→20:40)
[2022-08-20] MEDS: POTASSIUM CL SA 10 MEQ TAB PO SCH ×2 (08:50→20:40)
[2022-08-20] MEDS: ACETAMINOPHEN 500 MG TAB PO SCH ×3 (08:50→20:40)
[2022-08-20] MEDS: TICAGRELOR 90 MG TABLET PO SCH ×2 (08:53→20:39)
[2022-08-20] MEDS: DULERA 200/5 (MOMETASONE/FORMOTEROL) INHALER IH SCH ×2 (09:00→20:41)
--- NOTE | 2022-08-20 20:31 | HP ---
Date of Admission: 08/19/2022 Chief Complaint: Fall and back pain. History Of Present Illness: This is a 77-year-old female patient who was doing fine in her normal [facility] state [facility] until yesterday. While she was in the bathroom at her daughter's house, she was not using walker, normally at her house she uses walker, but because she was at her daughter's house it was not possible for her to use walker and as she was getting out of the bathroom, she fell backwa rds. No loss of consciousness. Ambulance was called and she was brought into emergency room. After she was evaluated in the ER, she was admitted to the hospital. This morning when I saw her, besides back pain denies any other complaints. She was given hydrocodone for her back pain yesterday, which did not help and she requested more stronger pain medications so IV morphine was ordered and that ac tually has helped her. Physical Examination: Vital Signs: Temperature 97.5, pulse 60, respiratory rate 18, blood pressure 154/65, oxygen saturati on 96% on room air, height 5 feet 7 inches, and weight 165 pounds. General: Awake, alert, oriented, not in distress. HEENT: Head atraumatic, normocephalic. Conjunctivae nonerythematous. Sclerae white. Mouth, no thr ush or edema noted. Ears/Nose, no mass, lesion, discharge noted. Neck: Supple. No JVD, lymph nodes, bruit, thyromegaly noted. Lungs: Bilateral good equal air entry. Clear to auscultation. No rhonchi. No rales. Heart: Normal heart sounds, no murmur or gallop. Abdomen: Soft, bowel sounds normal. No guarding, rigidity, tenderness, mass, hepatosplenomegaly, dis tention, or bruit noted. Extremities: No leg edema. No calf tenderness. Skin: No rash, ulcer, cellulitis. Lymphatics: No lymph node enlargement in neck, supraclavicular, infraclavicular region. Neuro: No focal neurological deficit. Chest: Unremarkable. External Genitalia: Deferred. Rectal: Deferred. Laboratory Data: Yesterday white count 21.3, hemoglobin 9.2, and platelets 373. Today white count i s 10.2, hemoglobin 9.3, and platelets 329. Yesterday sodium 137, potassium 3.8, chloride 105, bicarb 25, BUN 46, creatinine 1.69, and glucose 114. Liver function tests unremarkable except AST 76. Tro ponin 163. Today sodium is 138, potassium 4.3, chloride 106, bicarb 27, BUN 38, creatinine 1.34, and glucose 113. Urinalysis negative. Influenza A and B and COVID-19 test negative. Lumbar spine x-ra y: No acute traumatic injury. Mild lower lumbar spine degenerative changes. CAT scan of the head a nd cervical spine: No acute injury. Arterial Doppler of lower extremity shows evidence of periphera l vascular disease, but no complete occlusion. Chest x-ray: No acute cardiopulmonary changes. Impression: 1.Syncope. 2.Orthostatic hypotension. 3.Chronic diastolic heart failure. 4.Chronic obstructive pulmonary disease. 5.Hypertension. 6.Paroxysmal atrial fibrillation. 7.Coronary artery disease. 8.Peripheral vascular disease. 9.Hyperlipidemia. 10.Aortic atherosclerosis. 11.Anxiety. 12.Osteoarthritis, multiple sites. Plan: We will go ahead and admit patient to hospital for further evaluation and management of this alexia jay. The patient is not 100% sure, but she thinks that very likely she had fainted for a very alivia ef period of time when she fell down, but she was not able to get up on her own until EMS came to hel p her. Today after I saw her orthostatic changes were done and she has significant drop in her blood pressure in standing position from sitting and supine position. We will continue current pain medic ation, re-evaluate her tomorrow, and we will evaluate her medications to see if there is any medicati on that could contribute to this problem and we may have to consider to change medications accordingly. Otherwise, I will see her tomorrow for followup. She was advised to use wa lker all the time. LUIS/MODL Voice ID: [id number]
[2022-08-20] MEDS: PANTOPRAZOLE 40MG TABLET PO SCH (20:40)
[2022-08-20] MEDS: ATORVASTATIN 40 MG TAB PO SCH (20:40)
--- NOTE | 2022-08-21 05:47 | EKG ---
Test Date: 2022-08-19 Test Time: 12:24:59 Electro Tech: GLENNA MEASUREMENT RESULTS: Intervals: Rate: 61 NJ: 152 QRSD: 90 QT: 508 QTc: 511 [place]: P: 64 NJ: 152 QRS: 29 T: 66 INTERPRETIVE STATEMENTS: Normal sinus rhythm Prolonged QT Abnormal ECG Compared to ECG 08/17/2022 08:54:22 ST (T wave) deviation no longer present Possible ischemia no longer present Electronically Signed On 08-21-22 05:44:56 [employer] by Scott Kelley
[2022-08-21] MEDS: LEVOTHYROXINE SOD 0.1 MG TAB PO SCH (06:58)
[2022-08-21] MEDS: DULOXETINE 30 MG CAP PO SCH ×2 (07:46→20:28)
[2022-08-21] MEDS: methocarbamoL 500 MG TAB PO SCH ×3 (07:47→20:29)
[2022-08-21] MEDS: ASPIRIN 81 MG CHEWABLE TABLET PO SCH (07:47)
[2022-08-21] MEDS: SERTRALINE HCL 50 MG TAB PO SCH (07:48)
[2022-08-21] MEDS: TICAGRELOR 90 MG TABLET PO SCH ×2 (07:48→20:29)
[2022-08-21] MEDS: predniSONE 20 MG TAB PO SCH (07:49)
[2022-08-21] MEDS: AMIODARONE HCL 200 MG TAB PO SCH (07:50)
[2022-08-21] MEDS: PREGABALIN 50 MG CAP PO SCH ×2 (07:50→20:29)
[2022-08-21] MEDS: ACETAMINOPHEN 500 MG TAB PO SCH ×3 (07:51→20:29)
[2022-08-21] MEDS: POTASSIUM CL SA 10 MEQ TAB PO SCH ×2 (07:51→20:29)
[2022-08-21] MEDS: MAGNESIUM OXIDE 400 MG TAB PO SCH ×2 (07:52→20:29)
[2022-08-21] MEDS: FUROSEMIDE 40 MG TABLET PO SCH ×2 (07:52→14:12)
[2022-08-21] MEDS: lisinopriL 20 MG TAB PO SCH ×2 (07:53→20:29)
[2022-08-21] MEDS: AMLODIPINE 10 MG TAB PO SCH (07:53)
[2022-08-21] MEDS: DULERA 200/5 (MOMETASONE/FORMOTEROL) INHALER IH SCH ×2 (07:54→20:30)
[2022-08-21] MEDS ORDERED: NA CHLORIDE 0.9% 250 ML IV ONE (08:35)
[2022-08-21] MEDS ORDERED: MIDODRINE HCL 5 MG TABLET PO ONE ×3 (09:45→18:00)
[2022-08-21] MEDS: ATORVASTATIN 40 MG TAB PO SCH (20:29)
[2022-08-21] MEDS: PANTOPRAZOLE 40MG TABLET PO SCH (20:29)
--- NOTE | 2022-08-22 03:23 | PN ---
Date of Progress Note: 08/21/2022 Subjective: Patient was seen this morning for followup. No new complaints or problems reported by h er. Today, her orthostatic vital signs were checked and she still had significant drop in her systol ic blood pressure while she was sitting and even worse while she was standing. Objective: This morning when I saw her: HEENT: Unremarkable. Lungs: Clear to auscultation. Heart: Sounds normal. Abdomen: Soft. Bowel sounds normal. No guarding, rigidity, tenderness, distention. Extremities: No leg edema. Impression: 1.Orthostatic hypotension. 2.Syncope. 3.Hypertension. 4.Hyperlipidemia. 5.Peripheral vascular disease. 6.Chronic obstructive pulmonary disease. Plan: We will go ahead and start the patient on midodrine. Today, we gave her 250 cc of IV fluid halley betro and her orthostatic vitals were measured and she continued to have this problem, so we started he r on midodrine and she received 2 doses of midodrine today and after each dose was given, an hour aft er the dose, we checked her orthostatic vitals and she still continues to have trouble with that, so third dose will be given this evening, and starting tomorrow we will give another dose at 7 a.m. We will repeat the orthostatic vitals tomorrow morning and possibly discharge tomorrow depending on her condition. LUIS/MODL Voice ID: [id number] Report ID: [id number]
[2022-08-22] MEDS ORDERED: MIDODRINE HCL 5 MG TABLET PO ONE ×2 (07:00)
[2022-08-22] MEDS ORDERED: INFLUENZA VACCINE (for 6+ mo) 0.5 ML DOSE IMVAC ONE (08:00)
[2022-08-22] MEDS: LEVOTHYROXINE SOD 0.1 MG TAB PO SCH (08:12)
[2022-08-22] MEDS: ACETAMINOPHEN 500 MG TAB PO SCH (09:00)
[2022-08-22] MEDS: DULERA 200/5 (MOMETASONE/FORMOTEROL) INHALER IH SCH (09:00)
[2022-08-22] MEDS: ASPIRIN 81 MG CHEWABLE TABLET PO SCH (09:04)
[2022-08-22] MEDS: POTASSIUM CL SA 10 MEQ TAB PO SCH (09:04)
[2022-08-22] MEDS: DULOXETINE 30 MG CAP PO SCH (09:04)
[2022-08-22] MEDS: PREGABALIN 50 MG CAP PO SCH (09:04)
[2022-08-22] MEDS: AMLODIPINE 10 MG TAB PO SCH (09:05)
[2022-08-22] MEDS: lisinopriL 20 MG TAB PO SCH (09:05)
[2022-08-22] MEDS: MAGNESIUM OXIDE 400 MG TAB PO SCH (09:05)
[2022-08-22] MEDS: methocarbamoL 500 MG TAB PO SCH (09:05)
[2022-08-22] MEDS: SERTRALINE HCL 50 MG TAB PO SCH (09:06)
[2022-08-22] MEDS: FUROSEMIDE 40 MG TABLET PO SCH (09:07)
[2022-08-22] MEDS: predniSONE 20 MG TAB PO SCH (09:07)
[2022-08-22] MEDS: AMIODARONE HCL 200 MG TAB PO SCH (09:08)
[2022-08-22 09:12] VITALS: TEMP 97.1
[2022-08-22] MEDS: TICAGRELOR 90 MG TABLET PO SCH (09:13)
[2022-08-22 10:08] VITALS: BP 162/70
[2022-08-22 12:21] VITALS: O2SAT 95
== END 2022-08-22 13:34 | disposition home or self-care (01) | DRG 312 ==
LOC: ER 10:02 → ERHOLD 13:50 → 4TH 15:33 → OBSVTOIN 08-21 12:42
PROVIDERS: ADMIT Internal Medicine; ATTEND Internal Medicine
DX: I95.1 Orthostatic hypotension (principal); I50.32 Chronic diastolic (congestive) heart failure; I11.0 Hypertensive heart disease with heart failure; J44.9 Chronic obstructive pulmonary disease, unspecified; S09.90XA Unspecified injury of head, initial encounter; W01.10XA Fall on same level from slipping, tripping and stumbling with subsequent striking against unspecified object, initial encounter; Y92.002 Bathroom of unspecified non-institutional (private) residence as the place of occurrence of the external cause; M54.9 Dorsalgia, unspecified; I48.0 Paroxysmal atrial fibrillation; I73.9 Peripheral vascular disease, unspecified; I25.10 Atherosclerotic heart disease of native coronary artery without angina pectoris; I70.0 Atherosclerosis of aorta; E78.5 Hyperlipidemia, unspecified; E03.9 Hypothyroidism, unspecified; E78.00 Pure hypercholesterolemia, unspecified; K21.9 Gastro-esophageal reflux disease without esophagitis; G62.9 Polyneuropathy, unspecified; M15.9 Polyosteoarthritis, unspecified; R29.810 Facial weakness; F32.A Depression, unspecified; F41.9 Anxiety disorder, unspecified; Z20.822 Contact with and (suspected) exposure to COVID-19; Z95.5 Presence of coronary angioplasty implant and graft; Z95.828 Presence of other vascular implants and grafts; Z23 Encounter for immunization
CPT/HCPCS: 0240U; 36415; 51702; 70450; 71045; 72100; 72125; 80048; 80076; 81003; 81015; 82550; 82947; 83880; 84484; 85025; 85610; 85730; 87040; 90471; 93005; 93925; 96365; 96366; 97112; 97161; 99285; G0378; J2270; J2405; J3475; J3535; J7050; J7512; Q2035

== ENCOUNTER 2022-08-27 19:07 | Inpatient (IN) | payer OTHER ==
[2022-08-27] MEDS ORDERED: FUROSEMIDE 40 MG/4 ML VIAL IV ONE (21:58)
--- OUTSIDE RECORDS SUMMARY | 2022-08-27 21:58 | XMS REPORT | Continuity of Care Document ---
:1945 Author Organization [facility] t Address [address] [place] [address] Care Team Providers Name Role Phone Asked, No Pcp Primary Care Physician Unavailable ARASH CONNELL Attending Clinician Unavailable [id number] Attending Clinician Unavailable ARASH CONNELL Attending Clinician Unavailable Minesh Gallegos Attending Clinician RICHIE MARTIN Attending Clinician Unavailable Soha Montelongo Attending Clinician Ortiz Domingo Attending Clinician Unavailable Kenny Medley Attending Clinician Unavailable Severo Coleman Attending Clinician Darius Ybarra Attending Clinician Arash Connell Attending Clinician Sasha Valenzuela Attending Clinician LAKSHMI VELEZ Attending Clinician Unavailable [id number] Admitting Clinician Unavailable ARASH CONNELL Admitting Clinician Unavailable Jayy Linda Admitting Clinician Unavailable Ortiz Domingo Admitting Clinician Unavailable Reza Rojo Admitting Clinician Sasha Valenzuela Admitting Clinician Arash Connell Admitting Clinician LazaramarcinLori ayoubcandaceluis Terell Admitting Clinician Payers Payer Name Policy Type Policy Number Effective Date Expiration Date Sanjana martinez AETLORI MEDICARE [id number] 2020 2024 PPO 00:00:00 00:00:00 Problems Condition Condition Condition Status Onset Resolution Last Treating Co mments Source Name Details Category Date Date Treatment Clinician Date Post-opera Post-opera Disease Active U T tive state tive state -01 He alth 00:00: 00 Non-healin Non-healin Disease [...] 3-07 Clear s 00:00: Sampson 00 [facility] codeine DA Active [place] [facility] HIATAL 3-07 Clear HERNIA 00:00: Sampson 00 [facility] Codeine Allergy Active Unknown [facility] to 7-17 Health substanc 00:00: e 00 Social History Social Habit Start Date Stop Date Quantity Comments Source Tobacco use and 2021-06-28 2021-06-28 Smokeless tobacco [facility] exposure 00:00:00 00:00:00 non-user Sex Assigned At [birth year] [facility] Smoking Status Start Date Stop Date Source Tobacco smoking consumption unknown [facility] Smokes tobacco daily 2021-06-28 00:00:00 [facility] Medications Ordered Filled Start Stop Current Ordering Indication Dosage Frequency Signature Comments Components Source Medication Medication Date Date Medication? Clinician (SIG) Name Name acetaminoph Yes [id number] 1{tbl} Take 1 UT en-codeine 5-02 tablet by [facility]al [facility] (TYLENOL/CO 00:00: mouth DEINE #3) 00 every 4 300-30 MG (four) tablet hours if needed for severe pain. naloxone 2022- No [id number] .4mg Administer [facility] (Narcan) 2 11-18-08 0.4 mL Health MG/2ML 00:00: 05:59 (0.4 mg injection 00 :00 total) into affected nostril(s) if needed for opioid reversal. May repeat every 2-3 minutes as needed until medical assistance available. naloxone 2022- No [id number] .4mg Administer [facility] (Narcan) 2 11-18-08 0.4 mL Health MG/2ML 00:00: 05:59 (0.4 mg injection 00 :00 total) into affected nostril(s) if needed for opioid reversal. May repeat every 2-3 minutes as needed until medical assistance available. naloxone 2022- No [id number] .4mg Administer [facility] (Narcan) 2 11-18-08 0.4 mL Health MG/2ML 00:00: 05:59 (0.4 mg injection 00 :00 total) into affected nostril(s) if needed for opioid reversal. May repeat every 2-3 minutes as needed until medical assistance available. naloxone 2022- No [id number] .4mg Administer [facility] (Narcan) 2 11-18-08 0.4 mL Health MG/2ML 00:00: 05:59 (0.4 mg injection 00 :00 total) into affected nostril(s) if needed for opioid reversal. May repeat every 2-3 minutes as needed until medical assistance available. traMADol 2021- No [id number] 50mg Take 1 UT (Ultram) 50 3-07 [...] mouth. Health 12:07: 12 traMADol 2020-09- No [id number] 50mg Take 1 U T (Ultram) 50 1-02 11-08 tablet (50 H ealth MG tablet 00:00: 05:59 mg total) 00 :00 by mouth every 8 (eight) hours if needed for severe pain for up to 5 days. traMADol 2020-09- No [id number] 50mg Q6H Take 1 U T (Ultram) [...] capsule 00 amLODIPine 2020-0 Yes UT (Norvasc) 06-02 Health 10 MG 00:00: tablet 00 levothyroxi 2020-0 Yes UT ne 06-02 Health (Synthroid, 00:00: Levoxyl) 00 100 MCG tablet tamsulosin 0 Yes UT (Flomax) 06-02 Health 0.4 MG 24 00:00: hr capsule 00 ALPRAZolam 2020-0 Yes UT (Xanax) 908 Health 0.25 MG 00:00: tablet 00 ALPRAZolam 2020-0 Yes UT (Xanax) 08 Health 0.25 MG [...] 40mg Take 40 mg UT e (NexIUM) 806 by mouth Healt h [address] [...] Source Body height 2022-07-09 14:00:[address] [facility] Body weight 2022-07-09 14:00:[address] [facility] BMI 2022-07-09 14:00:00 25.53 kg/m2 [facility] Procedures Procedure Date / Time Performed Performing Clinician [facility] e CT ANGIOGRAM ABDOMINAL 2022-07-09 15:35:12 [facility] AORTA AND BILATERAL ILIOFEMORAL RUNOFF W WO CONTRAST POC CREATININE 2022-07-09 14:13:00 Javier Nunes [facility] ESTIMATED GFR 2022-07-09 14:13:00 [place], [facility] [id number] 2021-11-20 00:00:00 [facility] Plan of Care Planned Activity Planned Date Details Comments Source Future Scheduled 2022-08-27 COVID-19 VACCINE (#1) [facility] Test 06:40:57 [code = COVID-19 VACCINE (#1)] Future Scheduled 2022-08-27 Hepatitis C screening [facility] Test 06:40:57 (procedure) [code = [id number]] Future Scheduled 2022-08-27 SHINGLES VACCINES (1 Met [facility] Hospital Test 06:40:57 of 2) [code = SHINGLES VACCINES (1 of 2)] Future Scheduled 2022-08-27 INFLUENZA VACCINE Method [facility] Test 06:40:57 [code = INFLUENZA VACCINE] Future Scheduled 2022-08-27 65+ [facility] 06:40:57 VACCINE (2 - PCV) [code = 65+ PNEUMOCOCCAL VACCINE (2 - PCV)] Future Scheduled 2022-07-17 HEPATITIS B VACCINES Met [facility] Test 07:30:39 (1 of 3 - 3-dose series) [code = HEPATITIS B VACCINES (1 of 3 - 3-dose series)] Future Scheduled 2022-07-17 COVID-19 VACCINE (#1) [facility] Test 07:30:39 [code = COVID-19 VACCINE (#1)] Future Scheduled 2022-07-17 Hepatitis C screening [facility] Test 07:30:39 (procedure) [code = [id number]] Future Scheduled 2022-07-17 SHINGLES VACCINES (1 Met [facility] Test 07:30:39 of 2) [code = SHINGLES VACCINES (1 of 2)] Future Scheduled 2022-07-17 INFLUENZA VACCINE Method [facility] Test 07:30:39 [code = INFLUENZA VACCINE] Future Scheduled 2022-07-17 65+ [facility]OCOCCAL [facility] Test 07:30:39 VACCINE (2 - PCV) [code = 65+ PNEUMOCOCCAL VACCINE (2 - PCV)] Future Scheduled 2022-07-17 HEPATITIS B VACCINES Met [facility] Test 07:30:39 (1 of 3 - 3-dose series) [code = HEPATITIS B VACCINES (1 of 3 - 3-dose series)] Future Scheduled 2022-07-17 COVID-19 VACCINE (#1) [facility] Test 07:30:39 [code = COVID-19 VACCINE (#1)] Future Scheduled 2022-07-17 Hepatitis C screening [facility] Test 07:30:39 (procedure) [code = [id number]] Future Scheduled 2022-07-17 SHINGLES VACCINES (1 Met [facility] Test 07:30:39 of 2) [code = SHINGLES VACCINES (1 of 2)] Future Scheduled 2022-07-17 INFLUENZA VACCINE [facility] Test 07:30:39 [code = INFLUENZA VACCINE] Future Scheduled 2022-07-17 65+ P[facility]UMOCOCCAL [facility] Test 07:30:39 VACCINE (2 - PCV) [code = 65+ PNEUMOCOCCAL VACCINE (2 - PCV)] Encounters Start End Encounter Admission Attending Care Care Encounter Source Date/Time Date/Time Type Type Clinicians Facility Department ID 2022-04-03 Outpatient KOJUTSEN [facility]SE [id number] 15:59:49 [facility] 2021-11-21 Outpatient [facility] [id number] [place] 10:56:53 [facility] 2021-11-21 Outpatient [facility] [id number] [place] 10:55:46 [facility] 2021-10-22 Outpatient [id number] E[facility] CRD [facility] 10:32:05 [facility] 2021-10-16 Outpatient 3 [id number] E[facility] REF [id number] [facility] 10:31:34 [facility] [place] [facility] 2021-10-01 Outpatient KO [facility] [id number] [place] 01:05:41 [facility] 2021-09-27 Inpatient KO SE MHSE [id number] 14:57:03 [facility] 2021-09-24 Outpatient KO [facility] [id number] UT 14:24:58 [facility] 2021-09-16 Outpatient [facility] [id number] [place] 08:56:13 [facility] 2021-09-16 Outpatient [facility] [id number] [place] 08:54:24 [facility] 2021-08-19 Outpatient KO [facility] [id number] UT 07:57:20 [facility] 2021-08-19 Outpatient [facility] [id number] [place] 07:56:39 [facility] 2021-08-19 Outpatient [facility] [id number] UT 07:55:37 [facility] 2021-07-23 Outpatient [facility] [id number] UT 10:43:22 [facility] 2021-07-23 Outpatient KO, [facility] [id number] UT 10:42:25 [facility] 2021-07-23 Outpatient [facility] [id number] UT 10:36:58 [facility] 2022-07-23 2022-07-23 Outpatient RATNA Gallegos [id number] 13:00:00 13:00:00 Minesh 06 [facility] 2022-07-09 2022-07-09 Outpatient DANII, [facility] [id number] Elsie 00:00:00 00:00:00 DIVYANG [address] 2022-07-03 2022-07-03 Transcribe Ayar, 1.2.840.1 [id number] Methodi 00:00:00 00:00:00 Orders Divyang C [address]52.1.[address] 3.430.2.7 Hospit a .3.624958 l .8 2022-07-03 2022-07-03 Transcribe Ayar, 1.2.840.1 [id number] Methodi 00:00:00 00:00:00 Orders Divyang C [address]69.1.[address] 3.430.2.7 Hospit a .3.523532 l .8 2022-05-23 2022-05-23 Outpatient RATNA Gallegos [id number] 13:15:00 23:59:59 Minesh 05 [facility] 2022-04-29 2022-04-29 Outpatient [facility] [id number] UT 10:00:00 10:00:00 [facility] 2022-04-10 2022-04-10 Outpatient RATNA Gallegos [id number] 08:15:00 23:59:59 Minesh 04 [facility] 2022-03-10 2022-03-10 Outpatient RATNA Gallegos [id number] 11:30:00 23:59:59 Minesh 03 [facility] 2022-02-19 2022-02-19 [facility] [id number] 15:15:00 15:15:00 Minesh 02 Andrei 2022-01-13 2022-01-13 Office ESPERANZA Connell [facility] 1.2.840.114 [id number] UT 10:00:00 10:15:00 Visit Arash SAMPSON 350.1.13.58 Celestino rickey CONN 9.2.7.2.686 CLINIC [id number] 2022-01-06 2022-01-06 Outpatient DANIA MontelongoMG MG [id number] 09:20:00 09:20:00 Soha Valencia 2022-01-01 2022-01-01 Telephonic ESPERANZA Connell 1.2.840.114 [id number] UT 07:45:00 08:52:16 Encounter Arash SERRANO 350.1.13.58 [facility] 9.2.7.2.686 [id number] 2021-12-18 2021-12-18 Inpatient ANISA Domingo, HECTORCL OUTD [id number] [facility] 05:16:00 05:16:00 Ortiz 70 [facility] 2021-12-04 2021-12-04 Telephonic ESPERANZA Connell 1.2.840.114 [id number] UT 07:45:00 08:47:54 Encounter Arash SERRANO 350.1.13.58 [facility] 9.2.7.2.686 [id number] 2021-11-20 2021-11-21 Inpatient HECTOR AndrewsCL INTE.02 [id number] [facility] 14:27:00 13:39:00 Molham 30 [facility] 2021-11-18 2021-11-18 Office KO [facility] 1.2.840.114 [id number] UT 10:00:00 10:15:00 Visit ARASH SAMPSON 350.1.13.58 Celestino CONN 9.2.7.2.686 [facility] [id number] 2021-11-08 2021-11-11 Outpatient DANIA ColemanSE MHSE [id number] 00:30:00 12:32:00 Severo Phillips 2021-11-08 2021-11-08 Outpatient Jared, MHSE MHSE [id number] 00:30:00 00:30:00 Severo Katz Jacqueline 2021-11-06 2021-11-06 Office ESPERANZA Connell 1.2.840.114 [id number] UT 10:45:00 11:24:42 Visit Arash SERRANO 350.1.13.58 Celestino HART 9.2.7.2.686 [id number] 2021-11-04 2021-11-04 Outpatient Reginald, MHMG MHMG [id number] 09:40:00 23:59:59 Soha Annie 2021-10-11 2021-10-22 Outpatient Tate, MHSE MHSE [id number] 10:31:00 17:05:00 Darius 2021-10-11 2021-10-11 Outpatient Ko, MHSE MHSE [id number] 13:30:00 13:30:00 Arash Myrtle Tsai 2021-10-11 2021-10-11 Outpatient Bianca, MHSE MHSE [id number] 10:31:00 10:31:00 Sasha 2021-10-11 2021-10-11 Outpatient Bianca, MHSE MHSE [id number] 10:31:00 10:31:00 Sasha 2021-10-11 2021-10-11 Outpatient Tate, MHSE MHSE [id number] 10:31:00 10:31:00 Darius 2021-09-27 2021-09-30 Outpatient Bianca, MHSE MHSE [id number] 16:11:44 15:55:00 Sasha 2021-09-27 2021-09-27 Outpatient Bianca, MHSE MHSE [id number] 16:11:44 16:11:44 Sasha 2021-09-27 2021-09-27 Emergency E ROSIE, MHSE MHSE [id number] MH 16:11:00 16:11:00 LAKSHMI [facility]b [facility] 2021-07-16 2021-07-16 Office ESPERANZA Connell [facility] 1.2.840.114 [id number] UT 09:51:23 10:45:55 Visit Arash MED 350.1.13.58 [facility] [address] 1 9.2.7.2.686 [id number] 2021-07-02 2021-07-02 Outpatient JUSTEN Connell [facility] [id number] 09:10:00 17:16:00 Arash Tsai 2021-07-02 2021-07-02 Outpatient JUSTEN Connell [facility] [id number] 09:10:00 17:16:00 Arash Eulalio 2021-06-28 2021-06-28 Office Ko [facility] 1.2.840.114 [id number] UT 09:49:14 10:45:59 Visit [facility] 350.1.13.58 [place] [address] 9.2.7.2.686 [id number] 2021-06-16 2021-06-16 Outpatient PRIV PRIV [id number] [facility] 00:00:00 00:00:00 [id number] Medica l Results Test Description Test Time [...] x10 3/uL 0.0-0.1 N NRBC#) BASIC METABOLIC [id number] 15:06:00 Test Item Value Reference Range Interpretation [...] code = 8.4 mg/dL 8.0-10.5 N CA) [id number] 12:54:00 Test Item Value Reference Range Interpretation Comments ACT-ISTAT (test code 273 SEC 74-137 H Perform ed 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 = ACTI) 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 COVID 19 Asymptomatic IH [id number] 09:36:00 Test Item Value Reference Range Interpretation [...] high or waivedcomplexit y tests. BASIC METABOLIC [id number] 12:47:00 Test Item Value Reference Range Interpretation [...] = 8.4 mg/dL 8.0-10.5 N CA) PROTHROMBIN [id number] 12:47:00 Test Item Value Reference Range Interpretation [...] prevent systemic emboli sm), Valvular heart disease, Atria l Fibrillation, Bileaflet mecha nical valve in aortic position.2. Mec hanical prosthetic valv es (high risk), 2. 5 - 3.5 Presence of Lup us Anticoagulant o r Antiphospholipi d Antibodies, Pre vention of systemic emb olism - Acute Myocardia l Infarction (to prevent recurrent infar ct). 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 : 1945 Age/S: 76/F [address] [place] [address] Unit #: [id number] Loc: [place] [address] Phys: Alan Toussaint [facility] Acct: [id number] Dis Date: Status: ADM IN PHONE #: [phone] Exam Date: 11/20/20218 FAX #: [phone] Reason: WATCHMAN EXAMS: CPT CODE: [id number] XR CHEST 1 V 67236 PROCEDURE INFORMATION: Exam: XR ChestExam date and [...] Ortiz Domingo MD; Alan Toussaint Technologist: RT Alexis(Ilan) Trnscrd Date/Time/By: 11/20/2021 (8463) : By: [email or web address] Orig Print D/T: S: 11/20/2021 (3758) PAGE 1 Signed [id number] 15:14:00 Test Item Value Reference Range Interpretation Comments PREALBUMIN (test code = PREALB) 12.4 mg/dL 16.0-40.0 L BASIC METABOLIC [id number] 15:14:00 Test Item Value Reference Range Interpretation [...] = 8.3 mg/dL 8.0-10.5 N CA) PROTHROMBIN [id number] 15:06:00 Test Item Value Reference Range Interpretation [...] (to prevent recurrent infar ct). CBC W/AUTO [id number] 14:51:00 Test Item Value Reference Range Interpretation [...] 0.0-0.1 N NRBC#) - XR CHEST 2 [id number] 00:00:00 [facility] LA [facility] : 1945 Sex: F FAX: Jayy Jefferson MD [phone] [place]: GC St: PRE FAX: Ortiz Krishnan MD [phone] ---- Name: DAVID LA [facility] [place] : 1945 Age/S: 76/F [address] [place] [address] Blvd Unit #: [id number] Loc: [place] [address] Phys: Ortiz Domingo MD Acct: [id number] Dis Date: Status: PRE SDC PHONE #: Exam Date: 11/18/2021 1552 FAX #: [phone] Reason: PREOP EXAMS: CPT CODE: [id number] XR CHEST 2 V 09660 PROCEDURE INFORMATION: Exam: XR Chest Exam date and time: 11/18/2021 3:54 PM Age: 76years old Clinical indication: Other: Preop TECHNIQUE: Imaging protocol: XR of the chest. Views: 2 views. COMPARISON: No relevant prior studies available. The heart is normal in size. The thoracic aorta is mildly tortuous and contains atherosclerotic calcification. The lungs appear clear. The pulmonary vasculature is normal in caliber. No acute pleural space abnormalities are detected. IMPRESSION: 1. No radiographic evidence of acute cardiopulmonary disease. SL: 131 at 1626 Reported and signed by: Saad Arboleda M.D. CC: Jayy Linda MD; Ortiz Domingo MD Technologist: RT Bayron(R) Trnscrd Date/Time/By: 11/18/2021 (9659) : By: Richi Orig Print D/T: S: 11/18/2021 (9576) PAGE 1 Signed Report
[2022-08-27] MEDS ORDERED: ACETAMINOPHEN 500 MG TAB PO PRN (22:09)
[2022-08-27 22:42] LABS: Magnesium 2.4 mg/dL (1.6-2.4)
[2022-08-27 23:03] VITALS: BMI 22.7
[2022-08-28] MEDS: HYDROCODONE/APAP 5/325 MG TAB PO PRN ×3 (00:10→23:09)
[2022-08-28 03:48] LABS: Absolute Lymphocytes (CBC) 1.1 K/uL (0.7-4.9); Hematocrit 29.6 % (36.0-45.0); Lymphocytes % 12.3 % (15.3-44.8); MCV 72.7 fL (80-100); MPV 7.9 fL (7.6-11.3); RBC Red Blood Cell Count 4.07 M/uL (3.86-4.86)
[2022-08-28 04:08] LABS: Magnesium 2.2 mg/dL (1.6-2.4); Potassium 3.6 mmol/L (3.5-5.1)
[2022-08-28 04:09] LABS: Troponin High Sensitivity 178.9 pg/mL (<58.9)
[2022-08-28] MEDS: MIDODRINE HCL 5 MG TABLET PO SCH ×3 (07:00→16:58)
--- NOTE | 2022-08-28 07:43 | RAD REPORT ---
EXAM DESCRIPTION: RAD - Spine Lumbar W obliques - 08/28/2022 7:28 am CLINICAL HISTORY: back pain COMPARISON: Lumbar Spine 3 Views dated 08/19/2022; Chest Single View dated 08/19/2022 FINDINGS: A five-view lumbar spine examination was performed. Underlying osteopenic changes are present. L2-L5 vertebral body height and alignment have not changed since short interval August 19 imaging. There is slight concavity to the inferior endplate of L1. A slight wedging of the L1 body is seen. L1 posterior wall height is preserved. This may be due to sli ght positioning differences between the 2 examinations rather than an acute L1 process. Slight retrolisthesis of L3 on L4 is noted. There is right lateral tilt of the lumbar spine as part o f a thoracolumbar right convex degenerative scoliotic curvature. No lytic or blastic component has de veloped since the short interval August 19 imaging. Posterior decompression surgical changes noted L 4-L5. Prominent mid and lower lumbar facet joint degenerative changes are present. Oblique imaging is limited in pars interarticularis assessment. Pars defects are not suspected. Posterior L4-5 disc space narrowing present. Very dense nonaneurysmal aortoiliac atherosclerotic calcifications are present. Left iliac artery sven nt in place. IMPRESSION: Slight wedging of the L1 body is suspected though this could be an artifact of differenc es in positioning for the 2 examinations. Osteopenic and degenerative pattern in the lumbar spine is otherwise unchanged. If the patient's symptoms localize to the thoracolumbar junction region, follow-up MR imaging of the lumbar spine could be performed to evaluate for acute marrow edema abnormalities of the L1 vertebral body.
--- NOTE | 2022-08-28 07:47 | RAD REPORT ---
EXAM DESCRIPTION: RAD - Thoracic Spine Ap/Lat - 08/28/2022 7:28 am CLINICAL HISTORY: back pain COMPARISON: Spine Lumbar W obliques dated 08/28/2022 FINDINGS: AP & lateral views of the thoracic spine were obtained. Underlying osteopenic changes are present. There is slight wedging of a vertebral body near the thora columbar junction. This is suspected to be the L1 body based on the lumbar spine imaging. There is sl ight loss in height and concavity to the inferior endplate of the involved vertebral body. The service center appraiser ior wall height is preserved with no central canal encroachment. No associated lytic or blastic compo nent. Elsewhere thoracic vertebrae more normal in height. No pathologic bone process seen. Endplate spurrin g seen throughout the thoracic spine relatively mild in severity. No significant disc space narrowing . No paraspinal masses are identified. Aortic atherosclerotic calcifications are present. IMPRESSION: Slight 10% wedging of a vertebral body near the thoracolumbar junction believed to be th e L1 vertebral body. Posterior wall height is preserved with no canal encroachment. Thoracic vertebrae are osteopenic but otherwise normal in height. Correlation is needed with localizing symptoms to the thoracolumbar junction. If clinically warranted , MR imaging of the lumbar spine could be performed to evaluate for acute compression fracture.
[2022-08-28] MEDS: ENOXAPARIN 40 MG/0.4 ML SQ SCH (08:54)
[2022-08-28] MEDS: TICAGRELOR 90 MG TABLET PO SCH ×2 (08:54→21:54)
[2022-08-28] MEDS: FUROSEMIDE 40 MG/4 ML VIAL IV SCH ×3 (08:54→23:06)
[2022-08-28] MEDS: AMIODARONE HCL 200 MG TAB PO SCH (08:55)
[2022-08-28] MEDS ORDERED: POTASSIUM CL SA 10 MEQ TAB PO ONE (09:00)
[2022-08-28] MEDS ORDERED: AMLODIPINE 10 MG TAB PO ONE (10:04)
[2022-08-28] MEDS ORDERED: ASPIRIN EC 81 MG TAB PO ONE (10:04)
[2022-08-28] MEDS ORDERED: HYDRALAZINE HCL 10 MG TABLET PO ONE (10:04)
[2022-08-28] MEDS ORDERED: lisinopriL 20 MG TAB PO ONE (10:04)
[2022-08-28] MEDS: HYDRALAZINE HCL 10 MG TABLET PO SCH (21:54)
[2022-08-28] MEDS: lisinopriL 20 MG TAB PO SCH (21:55)
[2022-08-28] MEDS ORDERED: cloNIDine HCL 0.1 MG TAB PO PRN (23:07)
[2022-08-29 04:04] VITALS: O2SAT 97
[2022-08-29 04:24] LABS: Potassium 3.2 mmol/L (3.5-5.1)
[2022-08-29] MEDS ORDERED: POTASSIUM CL SA 10 MEQ TAB PO ONE (05:09)
[2022-08-29] MEDS: MIDODRINE HCL 5 MG TABLET PO SCH (07:00)
[2022-08-29 08:30] VITALS: BP 172/89; TEMP 97.4
[2022-08-29] MEDS: TICAGRELOR 90 MG TABLET PO SCH (08:49)
[2022-08-29] MEDS: HYDRALAZINE HCL 10 MG TABLET PO SCH (08:50)
[2022-08-29] MEDS: AMIODARONE HCL 200 MG TAB PO SCH (08:50)
[2022-08-29] MEDS: lisinopriL 20 MG TAB PO SCH (08:50)
[2022-08-29] MEDS: FUROSEMIDE 40 MG/4 ML VIAL IV SCH (08:51)
[2022-08-29] MEDS: ENOXAPARIN 40 MG/0.4 ML SQ SCH (08:54)
[2022-08-29] MEDS: HYDROCODONE/APAP 5/325 MG TAB PO PRN (08:54)
[2022-08-29] MEDS ORDERED: AMLODIPINE 10 MG TAB PO SCH (09:00)
[2022-08-29] MEDS ORDERED: PREGABALIN 50 MG CAP PO SCH (09:00)
[2022-08-29] MEDS ORDERED: ASPIRIN EC 81 MG TAB PO SCH (09:00)
[2022-08-29] MEDS ORDERED: SERTRALINE HCL 50 MG TAB PO SCH (09:00)
--- NOTE | 2022-08-29 18:31 | PN ---
Date of Progress Note: 08/28/2022 Subjective: The patient was seen this morning for followup. She was lying in bed, not in distress. Denies any chest pain. No shortness of breath this morning when I saw her. Objective: Vital Signs: Reviewed. HEENT: Examination unremarkable. Lungs: Bilateral good equal entry except presence of rales noted in lower lung yi, better today than yesterday. Heart: Sounds normal. Abdomen: Soft. Bowel sounds normal. No guarding, rigidity, tenderness, distention. Extremities: No leg edema. Laboratory Data: White count 9.2, hemoglobin 9.4, platelets 381. Sodium 137, potassium 3.6, chlorid e 105, bicarb 26, BUN 23, creatinine 1.20, glucose 98. Impression: 1.Chronic diastolic heart failure, with acute exacerbation. 2.Chronic obstructive pulmonary disease. 3.Hypertension. Plan: We will go ahead and continue current medication. Continue IV diuretic therapy. Continue ant ihypertensive medications. Monitor electrolytes, intake, output. I will see her tomorrow for follow up. LUIS/MODL Voice ID: [id number] Report ID: [id number]
--- NOTE | 2022-08-31 08:25 | DS ---
Date of Discharge: 08/29/2022 Disposition: Discharged to go home. Physical Examination: HEENT: Unremarkable. Lungs: Clear to auscultation. Heart: Sounds normal. Abdomen: Soft. Bowel sounds normal. No guarding, rigidity, tenderness, distention. Extremities: No leg edema. Discharge Medications And Instructions: Continue all prior home medication except following changes; 1.Change furosemide 40 mg take 1-1/2 tablet by mouth 2 times a day. 2.Change potassium chloride 20 mEq, take 1 tablet by mouth 3 times a day. 3.Start [place] 5 mg 1 tablet by mouth 4 times a day as needed for back pain. 4.Start Miacalcin nasal spray, take 1 spray in 1 nostril daily. The patient was advised to make william e to alternate nostril on a daily basis for example right nostril today and left nostril tomorrow. 5.Take cecz-bgz-udzouga calcium supplement, Caltrate plus D 1 tablet by mouth 2 times a day, take it after meal. 6.Follow up at my office during first or second week of September 2022. Call office for appointment. Laboratory Data: Upon admission on 08/28/2022; white count 9.2, hemoglobin 9.4, platelets 388. On D ecember 14; sodium 138, potassium 4, chloride 107, bicarb 27, BUN 23, creatinine 1.18, glucose 109. Troponin 178. Last chemistry on day of discharge; sodium 134, potassium 3.2, chloride 100, bicarb 27 , BUN 20, creatinine 1.18, glucose 114. X-ray of thoracic spine and lumbar spine shows about 10% com pression deformity of L1 spine, also presence of degenerative joint changes noted. Hospital Course: This is a 77-year-old female patient, who was admitted to the hospital with shortne ss of breath complaints. Please see dictated H and P for more information. After the patient was ev aluated at the office, decision was made to admit her to the hospital for congestive heart failure pr oblem. The patient has diastolic heart failure. She takes her medications as prescribed, but for la st few days prior to admission, she was having worsening shortness of breath with paroxysmal nocturna l dyspnea and orthopnea. The patient was also noted to have significant pain in her back with any ch shin of position and she was very uncomfortable. She had fallen down at home with syncopal episode a bout 2 weeks ago and this was determined to be due to orthostatic hypotension during her last [facility] admission. She takes all her medication as prescribed including new medication, midodrine to help with her orthostatic hypotension problem. After we admitted her to the hospital, we started her on I V Lasix. The patient has slightly elevated troponin level, which has been elevated during her last c ouple of admissions every time and this was determined due to demand ischemia. The patient was given IV Lasix. During this hospitalization, we monitored her electrolytes and renal function and her low potassium was corrected according to potassium replacement protocol. She was started on hydrocodone , which actually has helped to control her pain. Overall her back pain is under control. Congestive heart failure has improved with Lasix. Today when I saw her, there was no evidence of any fluid hollins ldup in her lungs and the patient's and daughter both were present at bedside and I did commu nicate with them regarding spine x-ray results. We also talked about conservative management to see if her pain would continue to improve with time, pain medication and also suggested to try using nasa l spray, Miacalcin. If she does not improve with conservative treatment, then 1 may have to consider kyphoplasty type of procedure and all these details were discussed with the patient and the patient' s family member today. The patient was discharged to go home in stable condition today with above-me ntioned medications and instructions. Final Diagnoses: 1.Congestive heart failure, chronic, diastolic, with acute exacerbation. 2.Compression fracture, L1 spine, initial encounter. 3.Orthostatic hypotension. 4.Chronic obstructive pulmonary disease. 5.Osteoarthritis, multiple sites. 6.Hypertension. 7.Paroxysmal atrial fibrillation. 8.Coronary artery disease. 9.Peripheral vascular disease. 10.Hyperlipidemia. 11.Aortic atherosclerosis. 12.Anxiety. LUIS/MODL Voice ID: [id number] Report ID: [id number]
--- NOTE | 2022-08-31 14:28 | HP ---
Date of Admission: 08/27/2022 Chief Complaint: Shortness of breath. History Of Present Illness: This is a 77-year-old very pleasant female patient, who was brought into office today by her daughter and with worsening problem with shortness of breath. For last 3-4 days, her shortness of breath has gotten worse to the extent that at nighttime she has trouble lying in the bed and she has to get up several times during nighttime and has to stay upright in order for her to breathe better. She gets short of breath with any minimal day-to-day activity. Denies any chest pain. No fever. No expectoration. She is also having lot of back pain and pain is worse with any movement. No radiation of pain. After she was evaluated at office, decision was made to go ahead and admit her to the hospital for further evaluation and management of this problem. Allergies: TO CODEINE CAUSING NAUSEA. Medication List: Reviewed. Review of Systems: Respiratory: As mentioned above. All other systems reviewed and negative. Past Medical History: Significant for peripheral vascular disease, hypothyroidism, COPD, hypertension, hyperlipidemia, paroxysmal atrial fibrillation, coronary artery disease, peripheral vascular disease, aortic atherosclerosis, gastroesophageal reflux disease, kidney stone, osteoarthritis at multiple sites, anemia, anxiety, hypokalemia, hypomagnesemia, chronic diastolic heart failure. She had cardioversion done for atrial fibrillation on February 28, 2022, and it was successful and she converted back to sinus rhythm at that time. Past Surgical History: Coronary artery angioplasty with stent placement on December 19, 2019; Watchman procedure on November 20, 2021; right leg stent in May 2021, left leg stent in 2000, cholecystectomy, hysterectomy, back surgery, cervical spine surgery. Family History: Father had heart disease. Mother had diabetes. Social History: Prior history of smoking, not at present time. Use of alcohol negative. Physical Examination: Vital Signs: Temperature 97.6, pulse 63, respiratory rate 17, blood pressure 179/74, oxygen saturation 98%. Height 5 feet 7 inches, weight 145 pounds. General: Awake, alert, oriented, not in distress. HEENT: Head atraumatic, normocephalic. Conjunctivae nonerythematous. Sclerae white. Mouth, no thrush or edema noted. Ears/Nose, no mass, lesion, discharge noted. Neck: Supple. No JVD, lymph nodes, bruit, thyromegaly noted. Lungs: Bilateral good equal entry. Presence of rales noted in lower 1/3 to lower 1/2 of each lung yi. Heart: Normal heart sounds, no murmur or gallop. Abdomen: Soft, bowel sounds normal. No guarding, rigidity, tenderness, mass, hepatosplenomegaly, distention, or bruit noted. Extremities: No leg edema. No calf tenderness. Skin: No rash, ulcer, cellulitis. Lymphatics: No lymph node enlargement in neck, supraclavicular, infraclavicular region. Neuro: No focal neurological deficit. Chest: Unremarkable. External Genitalia: Deferred. Rectal: Deferred. Laboratory Data: Sodium 138, potassium 4, chloride 107, bicarb 27, BUN 23, creatinine 1.18, glucose 109, magnesium 2.4. Impression: 1. Congestive heart failure, chronic, diastolic, with acute exacerbation. 2. Chronic obstructive pulmonary disease. 3. Orthostatic hypotension. 4. Osteoarthritis, multiple sites. 5. Hypertension. 6. Paroxysmal atrial fibrillation. 7. Coronary artery disease. 8. Peripheral vascular disease. 9. Hyperlipidemia. 10. Aortic atherosclerosis. 11. Anxiety. 12. Back pain, rule out compression fracture. Plan: Admit the patient to hospital for further evaluation and management of this problem. We will go ahead and start her on IV Lasix per order. We will repeat spine x-ray including thoracic and lumbar spine. For orthostatic hypotension, we will continue midodrine 2.5 mg 3 times a day. For COPD, continue her nebulizer treatment. We will go ahead and start her on hydrocodone per order for her back pain. For hypertension, we will continue her antihypertensive medication. For hyperlipidemia, continue her statin therapy. We will continue IV Lasix, monitor electrolytes, renal function, and I will see her tomorrow for followup. Details and plan of treatment discussed with the patient and her family. LUIS/MODL Voice ID: [id number]
== END 2022-08-29 13:07 | disposition home or self-care (01) | DRG 291 ==
LOC: 2ND 21:54
PROVIDERS: ADMIT Internal Medicine; ATTEND Internal Medicine
DX: I11.0 Hypertensive heart disease with heart failure (principal); I50.33 Acute on chronic diastolic (congestive) heart failure; I24.8 Other forms of acute ischemic heart disease; M48.56XA Collapsed vertebra, not elsewhere classified, lumbar region, initial encounter for fracture; E03.9 Hypothyroidism, unspecified; E78.5 Hyperlipidemia, unspecified; I95.1 Orthostatic hypotension; I48.0 Paroxysmal atrial fibrillation; I73.9 Peripheral vascular disease, unspecified; I70.0 Atherosclerosis of aorta; F41.9 Anxiety disorder, unspecified; M19.09 Primary osteoarthritis, other specified site; M54.9 Dorsalgia, unspecified; J44.9 Chronic obstructive pulmonary disease, unspecified; K21.9 Gastro-esophageal reflux disease without esophagitis; I25.10 Atherosclerotic heart disease of native coronary artery without angina pectoris; Z88.5 Allergy status to narcotic agent; Z95.5 Presence of coronary angioplasty implant and graft; Z90.49 Acquired absence of other specified parts of digestive tract; Z90.710 Acquired absence of both cervix and uterus; Z20.822 Contact with and (suspected) exposure to COVID-19
CPT/HCPCS: 36415; 72070; 72110; 80048; 83735; 83880; 84132; 84484; 85025; J1650; J1940; U0003

== ENCOUNTER 2022-09-10 18:13 | Emergency (ER) | payer OTHER ==
--- OUTSIDE RECORDS SUMMARY | 2022-09-10 18:17 | XMS REPORT | Continuity of Care Document ---
:1945 Author Organization [facility] t Address [address] [place] [address] Care Team Providers Name Role Phone Asked, No Pcp Primary Care Physician Unavailable ARASH CONNELL Attending Clinician Unavailable [id number] Attending Clinician Unavailable ARASH CONNELL Attending Clinician Unavailable Minesh Gallegos Attending Clinician RICHIE MARTIN Attending Clinician Unavailable Soha Montelongo Attending Clinician Ortiz Domingo Attending Clinician Unavailable Kenny Medley Attending Clinician Unavailable Severo Coleman Attending Clinician Darius Ybarra Attending Clinician Arash Connell Attending Clinician Sasha Valenzuela Attending Clinician LAKSHMI VELEZ Attending Clinician Unavailable [id number] Admitting Clinician Unavailable ARASH CONNELL Admitting Clinician Unavailable Jayy Linda Admitting Clinician Unavailable Ortiz Domingo Admitting Clinician Unavailable Reza Rojo Admitting Clinician Sasha Valenzuela Admitting Clinician Arash Connell Admitting Clinician Janny Wrencandaceluis Terell Admitting Clinician [phone] Payers Payer Name Policy Type Policy Number Effective Date Expiration Date Sanjana martinez [employer] MEDICARE [id number] 2020 2024 PPO 00:00:00 00:00:00 Problems Condition [...] Allergie 3-07 Clear s 00:00: Sampson 00 [facility] codeine DA Active [place] [facility] HIATAL 3-07 Clear HERNIA 00:00: Sampson 00 [facility] Codeine Allergy Active Unknown [facility] to 7-17 Health substanc 00:00: e 00 Social History Social Habit Start Date Stop Date Quantity Comments Source Tobacco use and 2021-06-28 2021-06-28 Smokeless tobacco [facility] exposure 00:00:00 00:00:00 non-user Sex Ass[birth year] At [birth year] [facility] 00:00:00 00:00:00 Hospital Smoking Status Start Date Stop Date Source Tobacco smoking consumption unknown [facility] Smokes tobacco daily 2021-06-28 00:00:00 [facility] Medications Ordered Filled Start Stop Current Ordering Indication Dosage Frequency Signature Comments Components Source Medication Medication Date Date Medication? Clinician (SIG) Name Name acetaminoph Yes [id number] 1{tbl} Take 1 [facility] en-codeine 5-02 tablet by [facility] (TYLENOL/CO 00:00: mouth DEINE #3) 00 every 4 300-30 MG (four) tablet hours if needed for severe pain. naloxone 2022- No [id number] .4mg Administer [facility] (Narcan) 2 11-18-08 0.4 mL Health MG/2ML 00:00: 05:59 (0.4 mg injection 00 :00 total) into affected nostril(s) if needed for opioid reversal. May repeat every 2-3 minutes as needed until medical assistance available. naloxone 2022- No [id number] .4mg Administer [facility] (Narcan) 2 11-18-08 0.4 mL Health MG/2ML 00:00: 05:59 (0.4 mg injection 00 :00 total) into affected nostril(s) if needed for opioid reversal. May repeat every 2-3 minutes as needed until medical assistance available. naloxone 2022- No [id number] .4mg Administer [facility] (Narcan) 2 11-18-08 0.4 mL Health MG/2ML 00:00: 05:59 (0.4 mg injection 00 :00 total) into affected nostril(s) if needed for opioid reversal. May repeat every 2-3 minutes as needed until medical assistance available. naloxone 2022- No [id number] .4mg Administer [facility] (Narcan) 2 11-18-08 0.4 mL Health MG/2ML 00:00: 05:59 (0.4 mg injection 00 :00 total) into affected nostril(s) if needed for opioid reversal. May repeat every 2-3 minutes as needed until medical assistance available. traMADol 2021- No [id number] 50mg Take 1 UT (Ultram) 50 3-07 [...] mouth. Health 12:07: 12 traMADol 2020-09- No [id number] 50mg Take 1 U T (Ultram) 50 1-02 11-08 tablet (50 H ealth MG tablet 00:00: 05:59 mg total) 00 :00 by mouth every 8 (eight) hours if needed for severe pain for up to 5 days. traMADol 2020-09- No [id number] 50mg Q6H Take 1 U T (Ultram) [...] every night. metoprolol 2020-0 Yes UT succinate 831 Health XL 00:00: (Toprol-XL) 00 50 MG [...] Source Body height 2022-07-09 14:00:00 170.2 cm [facility] Body weight 2022-07-09 14:00:00 73.936 kg [facility] BMI 2022-07-09 14:00:00 25.53 kg/m2 [facility] Procedures Procedure Date / Time Performed Performing Clinician [facility] e CT ANGIOGRAM ABDOMINAL 2022-07-09 15:35:12 [facility] AORTA AND BILATERAL ILIOFEMORAL RUNOFF W WO CONTRAST POC CREATININE 2022-07-09 14:13:00 Javier Nunes [facility] ESTIMATED GFR 2022-07-09 14:13:00 [place], Javier Forbes [facility] [id number] 2021-11-20 00:00:00 [facility] Plan of Care Planned Activity Planned Date Details Comments Source Future Scheduled 2022-08-27 COVID-19 VACCINE (#1) [facility] Test 06:40:57 [code = COVID-19 VACCINE (#1)] Future Scheduled 2022-08-27 Hepatitis C screening [facility] Test 06:40:57 (procedure) [code = 292552038] Future Scheduled 2022-08-27 SHINGLES VACCINES (1 [facility] Test 06:40:57 of 2) [code = SHINGLES VACCINES (1 of 2)] Future Scheduled 2022-08-27 INFLUENZA VACCINE [facility] Test 06:40:57 [code = INFLUENZA VACCINE] Future Scheduled 2022-08-27 65+ [facility] Test 06:40:57 VACCINE (2 - PCV) [code = 65+ PNEUMOCOCCAL VACCINE (2 - PCV)] Future Scheduled 2022-08-27 COVID-19 VACCINE (#1) [facility] Test 06:40:57 [code = COVID-19 VACCINE (#1)] Future Scheduled 2022-08-27 Hepatitis C screening [facility] Test 06:40:57 (procedure) [code = 817215534] Future Scheduled 2022-08-27 SHINGLES VACCINES (1 [facility] Test 06:40:57 of 2) [code = SHINGLES VACCINES (1 of 2)] Future Scheduled 2022-08-27 INFLUENZA VACCINE [facility] Test 06:40:57 [code = INFLUENZA VACCINE] Future Scheduled 2022-08-27 65+ PNEUMOCOCCAL Methodi [facility] Test 06:40:57 VACCINE (2 - PCV) [code = 65+ PNEUMOCOCCAL VACCINE (2 - PCV)] Future Scheduled 2022-07-17 HEPATITIS B VACCINES Met [facility] Test 07:30:39 (1 of 3 - 3-dose series) [code = HEPATITIS B VACCINES (1 of 3 - 3-dose series)] Future Scheduled 2022-07-17 COVID-19 VACCINE (#1) [facility] Test 07:30:39 [code = COVID-19 VACCINE (#1)] Future Scheduled 2022-07-17 Hepatitis C screening [facility] Test 07:30:39 (procedure) [code = 885343077] Future Scheduled 2022-07-17 SHINGLES VACCINES (1 Met [facility] Test 07:30:39 of 2) [code = SHINGLES VACCINES (1 of 2)] Future Scheduled 2022-07-17 INFLUENZA VACCINE Method is Hospital Test 07:30:39 [code = INFLUENZA VACCINE] Future Scheduled 2022-07-17 65+ PNEUMOCOCCAL Methodi Hospital Test 07:30:39 VACCINE (2 - PCV) [code = 65+ PNEUMOCOCCAL VACCINE (2 - PCV)] Future Scheduled 2022-07-17 HEPATITIS B VACCINES Met [facility] Test 07:30:39 (1 of 3 - 3-dose series) [code = HEPATITIS B VACCINES (1 of 3 - 3-dose series)] Future Scheduled 2022-07-17 COVID-19 VACCINE (#1) [facility] Test 07:30:39 [code = COVID-19 VACCINE (#1)] Future Scheduled 2022-07-17 Hepatitis C screening [facility] Test 07:30:39 (procedure) [code = [id number]] Future Scheduled 2022-07-17 SHINGLES VACCINES (1 Met [facility] Test 07:30:39 of 2) [code = SHINGLES VACCINES (1 of 2)] Future Scheduled 2022-07-17 INFLUENZA VACCINE [facility] Test 07:30:39 [code = INFLUENZA VACCINE] Future Scheduled 2022-07-17 65+ PNEUMOCOCCAL Methodi [facility] Test 07:30:39 VACCINE (2 - PCV) [code = 65+ PNEUMOCOCCAL VACCINE (2 - PCV)] Encounters Start End Encounter Admission Attending Care Care Encounter Source Date/Time Date/Time Type Type Clinicians Facility Department ID 2022-04-03 Outpatient KO, JUSTEN MHSE [id number] 15:59:49 [facility] 2021-11-21 Outpatient [facility] [id number] [place] 10:56:53 Health 2021-11-21 Outpatient [facility] [id number] [place] 10:55:46 Health 2021-10-22 Outpatient 3 [id number] ENCPL CRD [id number] [facility] 10:32:05 [facility] [place] 2021-10-16 Outpatient 3 [id number] ENCPL REF [id number] [facility] 10:31:34 0202 [facility] [place] 2021-10-01 Outpatient KO, [facility] [id number] [place] 01:05:41 [facility] 2021-09-27 Inpatient KO, MHSE MHSE [id number] MH 14:57:03 [facility] 2021-09-24 Outpatient KO, [facility] [id number] [place] 14:24:58 [facility] 2021-09-16 Outpatient [facility] [id number] [place] 08:56:13 [facility] 2021-09-16 Outpatient [facility] [id number] [place] 08:54:24 [facility] 2021-08-19 Outpatient KO [facility] [id number] [place] 07:57:20 [facility] 2021-08-19 Outpatient [facility] [id number] [place] 07:56:39 [facility] 2021-08-19 Outpatient [facility] [id number] [place] 07:55:37 [facility] 2021-07-23 Outpatient [facility] [id number] [place] 10:43:22 [facility] 2021-07-23 Outpatient KO, [facility] [id number] [place] 10:42:25 [facility] 2021-07-23 Outpatient [facility] [id number] [place] 10:36:58 [facility] 2022-07-23 2022-07-23 [id number] 13:00:00 13:00:00 Minesh 06 [facility] 2022-07-09 2022-07-09 Outpatient DANII [facility] [id number] [facility] 00:00:00 00:00:00 DIVYANG [address] 2022-07-03 2022-07-03 Transcribe Rozar, 1.2.840.1 [id number] Methodi 00:00:00 00:00:00 Orders Divyang C [address].1.[address] 3.430.2.7 Hospit a .3.963720 l .8 2022-07-03 2022-07-03 Transcribe Ayar, 1.2.840.1 [id number] Methodi 00:00:00 00:00:00 Orders Divyang C 15776.1.[address] 3.430.2.7 Hospit a .3.067119 l .8 2022-05-23 2022-05-23 Outpatient GOLD GallegosSCHER MHMISCHER [id number] 13:15:00 23:59:59 Minesh 05 Andrei 2022-04-29 2022-04-29 Outpatient KO [facility] [id number] [place] 10:00:00 10:00:00 [facility] 2022-04-10 2022-04-10 Outpatient DANIA GallegosMISCHER MHMISCHER [id number] 08:15:00 23:59:59 Minesh 04 Andrei 2022-03-10 2022-03-10 Outpatient Rosy MHMISCHER MHMISCHER [id number] 11:30:00 23:59:59 Minesh 03 Andrei 2022-02-19 2022-02-19 Outpatient Rosy GOLDSCHER MHMISCHER [id number] 15:15:00 15:15:00 Minesh 02 Andrei 2022-01-13 2022-01-13 Office Ko [facility] 1.2.840.114 [id number] [place] 10:00:00 10:15:00 Visit Arash SAMPSON 350.1.13.58 rickey CONN 9.2.7.2.686 [facility] [id number] 2022-01-06 2022-01-06 Outpatient Reginald [facility] [id number] 09:20:00 09:20:00 Soha Annie 2022-01-01 2022-01-01 Telephonic ESPERANZA Connell 1.2.840.114 [id number] [place] 07:45:00 08:52:16 Encounter Arash BROTHERS 350.1.13.58 [facility] 9.2.7.2.686 [id number] 2021-12-18 2021-12-18 Inpatient HECTOR OlmosBERONICA OUTD [id number] [facility] 05:16:00 05:16:00 Ortiz 70 [facility] 2021-12-04 2021-12-04 Telephonic ESPERANZA Connell 1.2.840.114 [id number] [place] 07:45:00 08:47:54 Encounter Arash BROTHERS 350.1.13.58 [facility] 9.2.7.2.686 [id number] 2021-11-20 2021-11-21 Inpatient HECTOR nAdrewsCL INTE.02 [id number] [facility] 14:27:00 13:39:00 [facility] 2021-11-18 2021-11-18 Office ESPERANZA CONNELL [facility] 1.2.840.114 [id number] [place] 10:00:00 10:15:00 Visit ARASH SAMPSON 350.1.13.58 [facility] 9.2.7.2.686 [facility] [id number] 2021-11-08 2021-11-11 Outpatient Jared, MHSE MHSE [id number] 00:30:00 12:32:00 Saliluis 55 Jacqueline 2021-11-08 2021-11-08 Outpatient Jared, MHSE MHSE [id number] 00:30:00 00:30:00 Severo 55 Jacqueline 2021-11-06 2021-11-06 Office ESPERANZA Connell 1.2.840.114 [id number] [place] 10:45:00 11:24:42 Visit Arash BROTHERS 350.1.13.58 [facility] 9.2.7.2.686 [id number] 2021-11-04 2021-11-04 Outpatient DANIA MontelongoMG [facility] [id number] 09:40:00 23:59:59 Soha Annie 2021-10-11 2021-10-22 Outpatient Tate, MHSE MHSE [id number] 10:31:00 17:05:00 Darius 2021-10-11 2021-10-11 Outpatient Ko, MHSE MHSE [id number] 13:30:00 13:30:00 Arash Myrtle Eulalio 2021-10-11 2021-10-11 Outpatient Bianca, MHSE MHSE [id number] 10:31:00 10:31:00 Sasha 2021-10-11 2021-10-11 Outpatient Bianca MHSE MHSE [id number] 10:31:00 10:31:00 Sasha 2021-10-11 2021-10-11 Outpatient Tate MHSE MHSE [id number] 10:31:00 10:31:00 Darius 2021-09-27 2021-09-30 [facility] [id number] 16:11:44 15:55:00 Sasha 2021-09-27 2021-09-27 [facility] [id number] 16:11:44 16:11:44 Sasha 2021-09-27 2021-09-27 Emergency E NERYAVELINA, SE SE [id number] 16:11:00 16:11:00 [facility] 2021-07-16 2021-07-16 Office ESPERANZA Connell [facility] 1.2.840.114 [id number] [place] 09:51:23 10:45:55 Visit [facility] 350.1.13.58 [address] 1 9.2.7.2.686 [id number] 2021-07-02 2021-07-02 Outpatient Ko [facility] [id number] 09:10:00 17:16:00 Arash Tsai 2021-07-02 2021-07-02 [facility] [id number] 09:10:00 17:16:00 Arash Eulalio 2021-06-28 2021-06-28 Office ESPERANZA Connell [facility] 1.2.840.114 [id number] [place] 09:49:14 10:45:59 Visit [facility] 350.1.13.58 [address] 9.2.7.2.686 [id number] 2 2021-06-16 2021-06-16 Outpatient PRIV PRIV [id number] [facility] 00:00:00 00:00:00 [id number] Medica l Results Test Description Test Time [...] x10 3/uL 0.0-0.1 N NRBC#) BASIC METABOLIC [id number] 15:06:00 Test Item Value Reference Range Interpretation [...] code = 8.4 mg/dL 8.0-10.5 N CA) [id number] 12:54:00 Test Item Value Reference Range Interpretation Comments ACT-ISTAT (test code 273 SEC 74-137 H Perform ed 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 = ACTI) nitrocellulose operator at [facility] [id number] 12:41:00 Test Item Value Reference Range Interpretation Comments ACT-ISTAT (test code 273 SEC 74-137 H Perform ed 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 = ACTI) nitrocellulose operator at [facility] [id number] 12:27:00 Test Item Value Reference Range Interpretation Comments ACT-ISTAT (test code 249 SEC 74-137 H Perform ed 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 = ACTI) nitrocellulose operator at [facility] COVID 19 Asymptomatic IH [id number] 09:36:00 Test Item Value Reference Range Interpretation [...] on theamount of vi anais (antigen) in e sample.This agustina t has not been FDA cleare d or approved; the t est hasbeen authori zed by FDA under an Em ergency Use Authorizati on(EUA) for use by labo ratories certified under the CLIA thatmeet the requirements to perform moderate, high or waivedcomplexit y tests. BASIC METABOLIC [id number] 12:47:00 Test Item Value Reference Range Interpretation [...] = 8.4 mg/dL 8.0-10.5 N CA) PROTHROMBIN [id number] 12:47:00 Test Item Value Reference Range Interpretation [...] (to prevent recurrent infar ct). CBC W/AUTO [id number] 12:33:00 Test Item Value Reference Range Interpretation [...] DIFF REQUIRED (test code NO = MDIFF) [id number] 08:53:00 Test Item Value Reference Range Interpretation Comments ACT-ISTAT (test code 148 SEC 74-137 H Perform ed 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 = ACTValentina) nitrocellulose operator at [facility] BASIC METABOLIC [id number] 07:56:00 Test Item Value Reference Range Interpretation [...] 8.7 mg/dL 8.0-10.5 N CA) CBC W/AUTO [id number] 06:58:00 Test Item Value Reference Range Interpretation [...] = 0.00 x10 3/uL 0.0-0.1 N NRBC#) [id number] 13:45:00 Test Item Value Reference Range Interpretation Comments RADHA (test code 261 SEC 74-137 H Perform ed 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 = ACTI) nitrocellulose operator at [facility] - XR CHEST 1 [id number] 00[facility]00:[address] [facility] 1945 Sex: F FAX: Jayy Jefferson MD [phone] [place]: St: ADM FAX: Ortiz Krishnan MD [phone] FAX: Alan Toussaint [phone] Name: EDUARDO LA [facility] : 1945 Age/S: 76/F [address] [place] [address] Bl Unit #: [id number] Loc: [place] [address] Phys: Alan ToussaintP Acct: [id number] Dis Date: Status: ADM IN PHONE #: [phone] Exam Date: 11/20/2021 1558 FAX #: [phone] Reason: WATCHMAN EXAMS: CPT CODE: [id number] XR CHEST 1 V 97315 PROCEDURE INFORMATION: Exam: XR Chest Exam date [...] Toussaint Technologist: RT Alexis(Ilan) Trnscrd Date/Time/By: 11/20/2021 (2227) : By: [email or web address] Orig Print D/T: S: 11/20/2021 (5406) PAGE 1 Signed [id number] 15:14:00 Test Item Value Reference Range Interpretation Comments PREALBUMIN (test code = PREALB) 12.4 mg/dL 16.0-40.0 L BASIC METABOLIC [id number] 15:14:00 Test Item Value Reference Range Interpretation [...] = 8.3 mg/dL 8.0-10.5 N CA) PROTHROMBIN [id number] 15:06:00 Test Item Value Reference Range Interpretation [...] (to prevent recurrent infar ct). CBC W/AUTO [id number] 14:51:00 Test Item Value Reference Range Interpretation [...] 0.0-0.1 N NRBC#) - XR CHEST 2 [id number] 00:00:00 [facility] : 1945 Sex: F FAX: Jayy Jefferson MD [phone] [place]: St: PRE FAX: Ortiz Krishnan MD [phone] ---- Name: DAVID LA [facility] : 1945 Age/S: 76/F [address] [place] [address] Unit #: [id number] Loc: [place] [address] Phys: Ortiz Domingo MD Acct: [id number] Dis Date: Status: PRE [facility] PHONE #: Exam Date: 11/18/2021 1551 FAX #: [phone] Reason: PREOP EXAMS: CPT CODE: [id number] XR CHEST 2 V 87478 PROCEDURE INFORMATION: Exam: XR Chest Exam date [...] of acute cardiopulmonary disease. SL: 131 at 7746 Reported and signed by: Saad Arboleda M.D. CC: Jayy Linda MD; Ortiz Domingo MD Technologist: RT Bayron(R[facility] Date/Time/By: 11/18/2021 (9289) : By: Richi Orig Print D/T: S: 11/18/2021 (2496) PAGE 1 Signed Report
--- NOTE | 2022-09-10 20:16 | RAD REPORT ---
EXAM DESCRIPTION: CT - Pelvis Wo Cont - 09/10/2022 7:43 pm CLINICAL HISTORY: fall, L buttock painfollowing fall September 07 COMPARISON: Spine Lumbar W obliques dated 08/28/2022 TECHNIQUE: Axial noncontrast 2 millimeter thick images of the pelvis were obtained. Sagittal and cor onal reformatted images were generated and reviewed. All CT scans are performed using dose optimization technique as appropriate and may include automate d exposure control or mA/KV adjustment according to patient size. FINDINGS: No fracture of the bony pelvis or proximal femora. SI joint degenerative changes minimal. Sacral ala are intact. Hip joint degenerative changes mild for age. Lower lumbar spine degenerative a nd post surgical decompression changes are noted. Contusion changes are seen in the subcutaneous fatty tissues over the left buttocks. The deeper glute al musculature is unremarkable. No suspicious bowel finding. Moderately large stool volume seen throughout the visualized portions of the colon. Dense vascular calcifications are present. Right-sided femoral stenting changes are prese nt. Left common iliac stent in place. IMPRESSION: Contusion in the subcutaneous fatty tissues over the left buttocks with no hematoma. Deeper gluteal musculature on the left shows no suspicious findings. No acute bone finding.
[2022-09-10] MEDS ORDERED: HYDROCODONE/APAP 5/325 MG TAB ONE (20:21)
--- NOTE | 2022-09-10 20:42 | ER ---
Nurse's Notes [facility] Name: Neela Staton Age: 77 yrs Sex: Female : 1945 Arrival Date: 09/10/2022 Time: 18:16 Bed Treatment Private MD: James Linda C Diagnosis: Orthostatic hypotension;Fall on same level, unspecified;Contusion of lower back and pelvis-buttock Presentation: 09/10 18:39 Chief complaint: Patient states: L buttock pain that began after falling from standing ss position on morning. Coronavirus screen: Client denies travel out of the [place] in the last 14 days. Ebola Screen: Patient denies exposure to infectious person. Patient denies travel to an Ebola-affected area in the 21 days before illness onset. Initial Sepsis Screen: Does the patient meet any 2 criteria? No. Patient's initial sepsis screen is negative. Does the patient have a suspected source of infection? No. Patient's initial sepsis screen is negative. Risk Assessment: Do you want to hurt yourself or someone else? Patient reports no desire to harm self or others. Onset of symptoms was September 07, 2022. 18:39 Method Of Arrival: Wheelchair ss 18:39 Acuity: BETHANY 3 ss Historical: - Allergies: 18:41 Codeine; ss - Home Meds: 20:23 midodrine 2.5 mg oral tab 1 tab 3 times per day [Active]; tw5 - PMHx: 18:41 Atrial fibrillation; Depression; GERD; High Cholesterol; Hypertensive disorder; ss Hypothyroidism; neuropathy; - PSHx: 18:41 heart stent; right leg stent; ss - Immunization history:: Client reports receiving the 2nd dose of the Covid vaccine. - Social history:: Smoking status: Patient denies any tobacco usage or history of. Screenin:21 [facility] ED Fall Risk Assessment (Adult) History of falling in the last 3 months, tw5 including since admission Yes- fall prone (multiple falls) (3 pts). Abuse screen: Denies threats or abuse. Denies injuries from another. Nutritional screening: No deficits noted. Tuberculosis screening: No symptoms or risk factors identified. Assessment: 20:21 General: Appears uncomfortable, Behavior is calm, cooperative, appropriate for age. tw5 General: Family reports " She fell lars day and the pain isn't getting any better. It is right under the cleft of the butt ' the butt bone' has a goose egg on it.". Pain: Complains of pain in left gluteal fold Pain currently is 8 out of 10 on a pain scale. Neuro: Level of Consciousness is awake, alert, obeys commands, Oriented to person, place, time, situation. Respiratory: Airway is patent Trachea midline Respiratory effort is even, unlabored. 20:26 General: "Her doctor was worried about her blood pressure that it was dropping each tw5 time she stood up.". 21:01 Reassessment: Patient states feeling better. Patient states symptoms have improved. tw5 Pain: Pain currently is 5 out of 10 on a pain scale. Vital Signs: 18:39 BP 105 / 67; Pulse 83; Resp 16; Temp 98.6(O); Pulse Ox 98% on R/A; Weight 66.68 kg; ss Height 5 ft. 7 in. (170.18 cm); Pain 8/10; 20:21 BP 141 / 52; Pulse 72; Resp 18; Pulse Ox 97% on R/A; Pain 8/10; tw5 20:27 BP 160 / 60 Supine; Pulse 69; Pulse Ox 99% on R/A; tw5 20:27 BP 121 / 58 Sitting; Pulse 92; tw5 20:27 BP 94 / 49 Standing; Pulse 94; tw5 18:39 Body Mass Index 23.02 (66.68 kg, 170.18 cm) ED Course: 18:16 Patient arrived in ED. as 18:16 James Linda MD is Private Physician. as 18:41 Triage completed. ss 18:41 Arm band placed on right wrist. ss 18:56 Ada Stallworth FNP-C is PHCP. snw 18:56 John Lopez MD is Attending Physician. snw 19:45 CT Pelvis wo Cont In Process Unspecified. EDMS 20:16 Steffi Burks is Primary Nurse. tw5 20:21 Patient has correct armband on for positive identification. Bed in low position. Call tw5 light in reach. Side rails up X2. Adult w/ patient. Pulse ox on. NIBP on. Door closed. Noise minimized. Lights dimmed. Warm blanket given. Verbal reassurance given. 20:39 James Linda MD is Referral Physician. snw 21: No provider procedures requiring assistance completed. Patient did not have IV access tw5 during this emergency room visit. Administered Medications: 20:24 Drug: [place] (HYDROcodone-acetaminophen) 5 mg-325 mg 1 tabs Route: PO; tw5 21: Follow up: Response: No adverse reaction; RASS: Alert and Calm (0) tw5 Medication: 20:21 VIS not applicable for this client. tw5 Outcome: 20:41 Discharge ordered by MD. snw 21: Discharged to home via wheelchair, with family. tw5 21: Condition: improved 21: Discharge instructions given to patient, family, Instructed on discharge instructions, follow up and referral plans. Demonstrated understanding of instructions, follow-up care. 21:02 Patient left the ED. tw5 Signatures: Dispatcher [employer] EDMS Ada Stallworth, RONC METER ATTENDANT-Nani Velasco [place], SUHAIL RN Steffi Bell tw5
--- NOTE | 2022-09-10 20:42 | EDPHYS ---
Physician Documentation [facility] Name: Neela Staton Age: 77 yrs Sex: Female : 1945 Arrival Date: 09/10/2022 Time: 18:16 Bed Treatment Private MD: James Linda C ED Physician John Lopez HPI: 09/10 19:59 This 77 yrs old Female presents to ER via Wheelchair with complaints of Fall Injury, snw Blood Pressure Problem. 19:59 Details of fall: The patient fell from an upright position, pt has a hx of orthostatic snw hypotension. Onset: The symptoms/episode began/occurred suddenly, 09/07/22. Associated injuries: The patient sustained injury to the low back, pain with movement, tenderness. Severity of symptoms: At their worst the symptoms were moderate. It is unknown whether or not the patient has had similar symptoms in the past. Sees Dr. Linda. Pt fell upon standing on . Positive pain to buttocks. Historical: - Allergies: 18:41 Codeine; ss - Home Meds: 20:23 midodrine 2.5 mg oral tab 1 tab 3 times per day [Active]; tw5 - PMHx: 18:41 Atrial fibrillation; Depression; GERD; High Cholesterol; Hypertensive disorder; ss Hypothyroidism; neuropathy; - PSHx: 18:41 heart stent; right leg stent; ss - Immunization history:: Client reports receiving the 2nd dose of the Covid vaccine. - Social history:: Smoking status: Patient denies any tobacco usage or history of. ROS: 20:00 Constitutional: Negative for fever, chills, and weight loss, Eyes: Negative for injury, snw pain, redness, and discharge, ENT: Negative for injury, pain, and discharge, Neck: Negative for injury, pain, and swelling, Cardiovascular: Negative for chest pain, palpitations, and edema, Respiratory: Negative for shortness of breath, cough, wheezing, and pleuritic chest pain, Abdomen/GI: Negative for abdominal pain, nausea, vomiting, diarrhea, and constipation, : Negative for injury, bleeding, discharge, and swelling, MS/Extremity: Negative for injury and deformity, Skin: Negative for injury, rash, and discoloration, Neuro: Negative for headache, weakness, numbness, tingling, and seizure, Psych: Negative for depression, anxiety, suicide ideation, homicidal ideation, and hallucinations. 20:00 Back: Positive for injury or acute deformity, pain at rest, pain with movement. Exam: 20:01 Constitutional: This is a well developed, well nourished patient who is awake, alert, snw and in no acute distress. Head/Face: Normocephalic, atraumatic. Eyes: Pupils equal round and reactive to light, extra-ocular motions intact. Lids and lashes normal. Conjunctiva and sclera are non-icteric and not injected. Cornea within normal limits. Periorbital areas with no swelling, redness, or edema. ENT: Nares patent. No nasal discharge, no septal abnormalities noted. Tympanic membranes are normal and external auditory canals are clear. Oropharynx with no redness, swelling, or masses, exudates, or evidence of obstruction, uvula midline. Mucous membranes moist. Neck: Trachea midline, no thyromegaly or masses palpated, and no cervical lymphadenopathy. Supple, full range of motion without nuchal rigidity, or vertebral point tenderness. No Meningismus. Chest/axilla: Normal chest wall appearance and motion. Nontender with no deformity. No lesions are appreciated. Cardiovascular: Regular rate and rhythm with a normal S1 and S2. No gallops, murmurs, or rubs. Normal PMI, no JVD. No pulse deficits. Respiratory: Lungs have equal breath sounds bilaterally, clear to auscultation and percussion. No rales, rhonchi or wheezes noted. No increased work of breathing, no retractions or nasal flaring. Abdomen/GI: Soft, non-tender, with normal bowel sounds. No distension or tympany. No guarding or rebound. No evidence of tenderness throughout. Skin: Warm, dry with normal turgor. Normal color with no rashes, no lesions, and no evidence of cellulitis.Ecchymosis to right hand MS/ Extremity: Pulses equal, no cyanosis. Neurovascular intact. Full, normal range of motion. Neuro: Awake and alert, GCS 15, oriented to person, place, time, and situation. Cranial nerves II-XII grossly intact. Motor strength 5/5 in all extremities. Sensory grossly intact. Cerebellar exam normal. Normal gait. Psych: Awake, alert, with orientation to person, place and time. Behavior, mood, and affect are within normal limits. 20:01 Back: pain, that is moderate, of the sacrum. Vital Signs: 18:39 BP 105 / 67; Pulse 83; Resp 16; Temp 98.6(O); Pulse Ox 98% on R/A; Weight 66.68 kg; ss Height 5 ft. 7 in. (170.18 cm); Pain 8/10; 20:21 BP 141 / 52; Pulse 72; Resp 18; Pulse Ox 97% on R/A; Pain 8/10; tw5 20:27 BP 160 / 60 Supine; Pulse 69; Pulse Ox 99% on R/A; tw5 20:27 BP 121 / 58 Sitting; Pulse 92; tw5 20:27 BP 94 / 49 Standing; Pulse 94; tw5 18:39 Body Mass Index 23.02 (66.68 kg, 170.18 cm) ss MDM: 19:59 Patient medically screened. snw 20:41 Data reviewed: vital signs, nurses notes. Data interpreted: Pulse oximetry: on room air snw is 99 %. Interpretation: normal. Counseling: I had a detailed discussion with the patient and/or guardian regarding: the historical points, exam findings, and any diagnostic results supporting the discharge/admit diagnosis, radiology results, the need for outpatient follow up, to return to the emergency department if symptoms worsen or persist or if there are any questions or concerns that arise at home. Special discussion: Based on the history and exam findings, there is no indication for further emergent testing or inpatient evaluation. I discussed with the patient/guardian the need to see the primary care provider for further evaluation of the symptoms. 09/10 18:43 Order name: CT Pelvis wo Cont; Complete Time: 20:36 ss 09/10 20:25 Order name: Orthostatic Blood Pressure; Complete Time: 20:33 tw5 Administered Medications: 20:24 Drug: [place] (HYDROcodone-acetaminophen) 5 mg-325 mg 1 tabs Route: PO; tw5 21:01 Follow up: Response: No adverse reaction; RASS: Alert and Calm (0) tw5 Disposition Summary: 09/10/22 20:41 Discharge Ordered Location: Home snw Condition: Stable snw Diagnosis - Orthostatic hypotension snw - Fall on same level, unspecified snw - Contusion of lower back and pelvis - buttock snw Followup: snw - With: James Linda MD - When: 1 - 2 days - Reason: Recheck today's complaints, Continuance of care, Re-evaluation by your physician Followup: snw - With: Emergency Department - When: As needed - Reason: Worsening of condition Discharge Instructions: - Discharge Summary Sheet snw - Contusion snw - Fall Prevention in the Home, Adult snw - Orthostatic Hypotension snw Forms: - Medication Reconciliation Form snw - Thank You Letter snw - Antibiotic Education snw - Prescription Opioid Use snw Signatures: Dispatcher [employer] EDMS Ada Stallworth, LEATHER TACKER-C LEATHER TACKER-Csnw Mimi Dupont, RN RN Steffi Burks tw5
[2022-09-10 21:39] VITALS: TEMP 98.6
[2022-09-10 21:41] VITALS: BP 94/49; O2SAT 99
== END 2022-09-10 21:02 | disposition home or self-care (01) ==
LOC: ER 18:13
DX: I95.1 Orthostatic hypotension (principal); S30.0XXA Contusion of lower back and pelvis, initial encounter; W18.30XA Fall on same level, unspecified, initial encounter; I10 Essential (primary) hypertension; Z95.818 Presence of other cardiac implants and grafts; Z88.5 Allergy status to narcotic agent
CPT/HCPCS: 72192

== ENCOUNTER 2022-09-22 13:19 | Observation (INO) | payer OTHER ==
--- OUTSIDE RECORDS SUMMARY | 2022-09-22 13:25 | XMS REPORT | Continuity of Care Document ---
:1945 Author Organization [facility] t Address [address] [place] [address] Care Team Providers Name Role Phone Unknown, Physician Primary Care Physician Unavailable ARASH CONNELL Attending Clinician Unavailable [id number] Attending Clinician Unavailable ARASH CONNELL Attending Clinician Unavailable Minesh Gallegos Attending Clinician RICHIE MARTIN Attending Clinician Unavailable Soha Montelongo Attending Clinician Ortiz Domingo Attending Clinician Unavailable Kenny Medley Attending Clinician Unavailable Severo Coleman Attending Clinician Darius Ybarra Attending Clinician Arash Connell Attending Clinician Sasha Valenzuela Attending Clinician LAKSHMI VELEZ Attending Clinician Unavailable [id number] Admitting Clinician Unavailable ARASH CONNELL Admitting Clinician Unavailable Jayy Linda Admitting Clinician Unavailable Ortiz Domingo Admitting Clinician Unavailable Reza Rojo Admitting Clinician Sasha Valenzuela Admitting Clinician Arash Connell Admitting Clinician Janny Wrencandaceluis Terell Admitting Clinician Payers Payer Name Policy Type Policy Number Effective Date Expiration Date S juan [employer] MEDICARE [id number] 2020 2024 PPO 00:00:00 00:00:00 Problems Condition [...] Allergie 3-07 Clear s 00:00: Sampson 00 [facility] codeine DA Active DE AFFECTS [facility] HIATAL 3-07 Clear HERNIA 00:00: Sampson 00 [facility] Codeine Allergy Active Unknown [facility] to 7-17 Health substanc 00:00: e 00 Social History Social Habit Start Date Stop Date Quantity Comments Source Tobacco use and 2021-06-28 2021-06-28 Smokeless tobacco [facility] exposure 00:00:00 00:00:00 non-user Sex Ass[birth year] [facility] 00:00:00 00:00:00 Hospital Smoking Status Start Date Stop Date Source Tobacco smoking consumption unknown [facility] Smokes tobacco daily 2021-06-28 00:00:00 [facility] Medications Ordered Filled Start Stop Current Ordering Indication Dosage Frequency Signature Comments Components Source Medication Medication Date Date Medication? Clinician (SIG) Name Name acetaminoph Yes [id number] 1{tbl} Take 1 [facility] en-codeine 5-02 tablet by [facility] (TYLENOL/CO 00:00: mouth DEINE #3) 00 every 4 300-30 MG (four) tablet hours if needed for severe pain. naloxone 2022- No [id number] .4mg Administer [facility] (Narcan) 2 11-18-08 0.4 mL Health MG/2ML 00:00: 05:59 (0.4 mg injection 00 :00 total) into affected nostril(s) if needed for opioid reversal. May repeat every 2-3 minutes as needed until medical assistance available. naloxone 2022- No [id number] .4mg Administer [facility] (Narcan) 2 11-18-08 0.4 mL Health MG/2ML 00:00: 05:59 (0.4 mg injection 00 :00 total) into affected nostril(s) if needed for opioid reversal. May repeat every 2-3 minutes as needed until medical assistance available. naloxone 2022- No [id number] .4mg Administer [facility] (Narcan) 2 11-18-08 0.4 mL Health MG/2ML 00:00: 05:59 (0.4 mg injection 00 :00 total) into affected nostril(s) if needed for opioid reversal. May repeat every 2-3 minutes as needed until medical assistance available. naloxone 2022- No [id number] .4mg Administer [facility] (Narcan) 2 11-18-08 0.4 mL Health MG/2ML 00:00: 05:59 (0.4 mg injection 00 :00 total) into affected nostril(s) if needed for opioid reversal. May repeat every 2-3 minutes as needed until medical assistance available. traMADol 2021- No [id number] 50mg Take 1 [facility] (Ultram) 50 3-07 [...] 12:07: 12 ASPIRIN 2020-09 Yes Take by [place] ADULT PO 2-06 mouth. Health 12:07: 12 traMADol 2020-09- No [id number] 50mg Take 1 U T (Ultram) 50 1-02 11-08 tablet (50 H ealth MG tablet 00:00: 05:59 mg total) 00 :00 by mouth every 8 (eight) hours if needed for severe pain for up to 5 days. traMADol 2020-09- No [id number] 50mg Q6H Take 1 U T (Ultram) [...] Source Body height 2022-07-09 14:00:00 170.2 cm [facility] Body weight 2022-07-09 14:00:00 73.936 kg [facility] BMI 2022-07-09 14:00:00 25.53 kg/m2 [facility] Procedures Procedure Date / Time Performed Performing Clinician [facility] e CT ANGIOGRAM ABDOMINAL 2022-07-09 15:35:12 Richie Martin [facility] AORTA AND BILATERAL ILIOFEMORAL RUNOFF W WO CONTRAST POC CREATININE 2022-07-09 14:13:00 Javier Nunes [facility] ESTIMATED GFR 2022-07-09 14:13:00 Javier Nunes [facility] [id number] 2021-11-20 00:00:00 [facility] Plan of Care Planned Activity Planned Date Details Comments Source Future Scheduled 2022-08-27 [facility]ACCINE [facility] Test 06:40:57 [code = INFLUENZA VACCINE] Future Scheduled 2022-08-27 65+ P[facility]UMOCOCCAL [facility] Test 06:40:57 VACCINE (2 - PCV) [code = 65+ PNEUMOCOCCAL VACCINE (2 - PCV)] Future Scheduled 2022-08-27 COVID-19 [facility]ACCINE (#[facility]) [facility] 06:40:57 [code = COVID-19 VACCINE (#1)] Future Scheduled 2022-08-27 [facility] 06[facility]:57 (procedure) [code = [id number]] Future Scheduled 2022-08-27 SHINGLES VACCINES (1 [facility] Test 06:40:57 of 2) [code = SHINGLES VACCINES (1 of 2)] Future Scheduled 2022-08-27 INFLUENZA VACCINE [facility] Test 06:40:57 [code = INFLUENZA VACCINE] Future Scheduled 2022-08-27 65+ PNEUMOCOCCAL [facility] Test 06:40:57 VACCINE (2 - PCV) [code = 65+ PNEUMOCOCCAL VACCINE (2 - PCV)] Future Scheduled 2022-08-27 COVID-19 VACCINE (#[facility]) [facility] Test 06:40:57 [code = COVID-19 VACCINE (#1)] Future Scheduled 2022-08-27 [facility] Test 06:40:57 (procedure) [code = [id number]] Future Scheduled 2022-08-27 SHINGLES VACCINES (1 [facility] Test 06:40:57 of 2) [code = SHINGLES VACCINES (1 of 2)] Future Scheduled 2022-08-27 INFLUENZA VACCINE [facility] Test 06:40:57 [code = INFLUENZA VACCINE] Future Scheduled 2022-08-27 65+ PNEUMOCOCCAL [facility] Test 06:40:57 VACCINE (2 - PCV) [code = 65+ PNEUMOCOCCAL VACCINE (2 - PCV)] Future Scheduled 2022-08-27 COVID-19 VACCINE (#1) [facility] 06:40:57 [code = COVID-19 VACCINE (#1)] Future Scheduled 2022-08-27 [facility] 06:40:57 (procedure) [code = [id number]] Future Scheduled 2022-08-27 SHINGLES VACCINES (1 [facility] Test 06:40:57 of 2) [code = SHINGLES VACCINES (1 of 2)] Future Scheduled 2022-08-27 INFLUENZA VACCINE [facility] Test 06:40:57 [code = INFLUENZA VACCINE] Future Scheduled 2022-08-27 65+ [facility]OCOCCAL [facility] Test 06:40:57 VACCINE (2 - PCV) [code = 65+ PNEUMOCOCCAL VACCINE (2 - PCV)] Future Scheduled 2022-08-27 COVID-19 VACCINE (#1) [facility] 06:40:57 [code = COVID-19 VACCINE (#1)] Future Scheduled 2022-08-27 [facility] 06:40:57 (procedure) [code = 793755281] Future Scheduled 2022-08-27 SHINGLES VACCINES (1 [facility] Test 06:40:57 of 2) [code = SHINGLES VACCINES (1 of 2)] Future Scheduled 2022-08-27 INFLUENZA VACCINE [facility] Test 06:40:57 [code = INFLUENZA VACCINE] Future Scheduled 2022-08-27 65+ PNEUMOCOCCAL [facility] Test 06:40:57 VACCINE (2 - PCV) [code = 65+ PNEUMOCOCCAL VACCINE (2 - PCV)] Future Scheduled 2022-08-27 COVID-19 VACCINE (#1) [facility] 06:40:57 [code = COVID-19 VACCINE (#1)] Future Scheduled 2022-08-27 [facility] Test 06:40:57 (procedure) [code = 655572779] Future Scheduled 2022-08-27 SHINGLES VACCINES (1 [facility] Test 06:40:57 of 2) [code = SHINGLES VACCINES (1 of 2)] Future Scheduled 2022-08-27 INFLUENZA VACCINE [facility] Test 06:40:57 [code = INFLUENZA VACCINE] Future Scheduled 2022-08-27 65+ [facility]OCOCC[facility] Test 06:40:57 VACCINE (2 - PCV) [code = 65+ PNEUMOCOCCAL VACCINE (2 - PCV)] Future Scheduled 2022-08-27 COVID-19 VACCINE (#1) [facility] Test 06:40:57 [code = COVID-19 VACCINE (#1)] Future Scheduled 2022-08-27 Hepatitis C screening [facility] Test 06:40:57 (procedure) [code = 403282186] Future Scheduled 2022-08-27 SHINGLES VACCINES (1 [facility] Test 06:40:57 of 2) [code = SHINGLES VACCINES (1 of 2)] Future Scheduled 2022-07-17 HEPATITIS B VACCINES [facility] Test 07:30:39 (1 of 3 - 3-dose series) [code = HEPATITIS B VACCINES (1 of 3 - 3-dose series)] Future Scheduled 2022-07-17 COVID-19 VACCINE (#1) [facility] Test 07:30:39 [code = COVID-19 VACCINE (#1)] Future Scheduled 2022-07-17 Hepatitis C screening [facility] Test 07:30:39 (procedure) [code = 077997770] Future Scheduled 2022-07-17 SHINGLES VACCINES (1 [facility] Test 07:30:39 of 2) [code = SHINGLES VACCINES (1 of 2)] Future Scheduled 2022-07-17 INFLUENZA VACCINE Method [facility] Test 07:30:39 [code = INFLUENZA VACCINE] Future Scheduled 2022-07-17 65[facility] 07:30:39 VACCINE (2 - PCV) [code = 65+ PNEUMOCOCCAL VACCINE (2 - PCV)] Future Scheduled 2022-07-17 HEPATITIS B VACCINES [facility] Test 07:30:39 (1 of 3 - 3-dose series) [code = HEPATITIS B VACCINES (1 of 3 - 3-dose series)] Future Scheduled 2022-07-17 COVID-19 VACCINE (#1) [facility] Test 07:30:39 [code = COVID-19 VACCINE (#1)] Future Scheduled 2022-07-17 Hepatitis C screening [facility] Test 07:30:39 (procedure) [code = 503697749] Future Scheduled 2022-07-17 SHINGLES VACCINES (1 [facility] Test 07:30:39 of 2) [code = SHINGLES VACCINES (1 of 2)] Future Scheduled 2022-07-17 INFLUENZA VACCINE Method [facility] Test 07:30:39 [code = INFLUENZA VACCINE] Future Scheduled 2022-07-17 65+ [facility]NEUMOCOCC[address] [facility] Test 07:30:39 VACCINE (2 - PCV) [code = 65+ PNEUMOCOCCAL VACCINE (2 - PCV)] Encounters Start End Encounter Admission Attending Care Care Encounter Source Date/Time Date/Time Type Type Clinicians Facility Department ID 2022-04-03 Outpatient JUSTEN CONNELL [facility]SE [id number] 15:59:49 [facility] 2021-11-21 Outpatient [facility] [id number] [place] 10:56:53 Health 2021-11-21 Outpatient [facility] [id number] [place] 10:55:46 Health 2021-10-22 Outpatient 3 [id number] ENCPL CRD [id number] [facility] 10:32:05 [facility] [place] [facility] 2021-10-16 Outpatient 3 [id number] ENCPL REF [id number] [facility] 10:31:34 0[facility] [place] 2021-10-01 Outpatient KO, [facility] [id number] [place] 01:05:41 [facility] 2021-09-27 Inpatient DANIA CONNELLSE MHSE [id number] 14:57:03 [facility] 2021-09-24 Outpatient KO, [facility] [id number] [place] 14:24:58 [facility] 2021-09-16 Outpatient [facility] [id number] [place] 08:56:13 [facility] 2021-09-16 Outpatient [facility] [id number] [place] 08:54:24 [facility] 2021-08-19 Outpatient KO, [facility] [id number] [place] 07:57:20 [facility] 2021-08-19 Outpatient [facility] [id number] [place] 07:56:39 [facility] 2021-08-19 Outpatient [facility] [id number] [place] 07:55:37 [facility] 2021-07-23 Outpatient [facility] [id number] [place] 10:43:22 [facility] 2021-07-23 Outpatient KO, [facility] [id number] [place] 10:42:25 [facility] 2021-07-23 Outpatient [facility] [id number] [place] 10:36:58 [facility] 2022-07-23 2022-07-23 Outpatient Rosy, MHMISCHER MHMISCHER [id number] 13:00:00 13:00:00 Minesh 06 [facility] 2022-07-09 2022-07-09 Outpatient DANII [facility] [id number] [place] 00:00:00 00:00:00 DIVYANG [address] 2022-07-03 2022-07-03 Transcribe Danii, 1.2.840.1 [id number] Methodi 00:00:00 00:00:00 Orders Divyang C [address].1.[address] 3.430.2.7 Hospit a .3.605866 l .8 2022-07-03 2022-07-03 Transcribe Danii, 1.2.840.1 [id number] Methodi 00:00:00 00:00:00 Orders Divyang C [address]57.1.[address] 3.430.2.7 Hospit a .3.275549 l .8 2022-05-23 2022-05-23 Outpatient Evieterence, MHMISCHER MHMISCHER [id number] 13:15:00 23:59:59 Minesh 05 [facility] 2022-04-29 2022-04-29 Outpatient [facility] [id number] [place] 10:00:00 10:00:00 [facility] 2022-04-10 2022-04-10 Outpatient Evieterence, MHMISCHER MHMISCHER [id number] 08:15:00 23:59:59 Minesh 04 [facility] 2022-03-10 2022-03-10 Outpatient Evieterence, MHMISCHER MHMISCHER [id number] 11:30:00 23:59:59 Minesh 03 [facility] 2022-02-19 2022-02-19 Outpatient Evieterence, MHMISCHER MHMISCHER [id number] 15:15:00 15:15:00 Minesh 02 [facility] 2022-01-13 2022-01-13 Office Ko [facility] 1.2.840.114 [id number] [place] 10:00:00 10:15:00 Visit [facility] 350.1.13.58 rickey CONN 9.2.7.2.686 [facility] [id number] 1 2022-01-06 2022-01-06 Outpatient [facility] [id number] 09:20:00 09:20:00 Soha Valencia 01 2022-01-01 2022-01-01 Telephonic ESPERANZA Connell 1.2.840.114 [id number] [place] 07:45:00 08:52:16 Encounter Arash BROTHERS 350.1.13.58 [facility] 9.2.7.2.686 [id number] 2021-12-18 2021-12-18 Inpatient ANISA Domingo, HECTORCL OUTD [id number] [facility] 05:16:00 05:16:00 Ortiz 70 [facility] 2021-12-04 2021-12-04 TelephESPERANZA Carranza 1.2.840.114 [id number] [place] 07:45:00 08:47:54 Encounter Arash BROTHERS 350.1.13.58 [facility] 9.2.7.2.686 [id number] 2021-11-20 2021-11-21 Inpatient ANISA Medley, HECTORCL INTE.02 [id number] [facility] 14:27:00 13:39:00 Molham 30 [facility] 2021-11-18 2021-11-18 Office ESPERANZA CONNELL [facility] 1.2.840.114 [id number] [place] 10:00:00 10:15:00 Visit ARASH SAMPSON 350.1.13.58 Celestino CONN 9.2.7.2.686 [facility] [id number] 2021-11-08 2021-11-11 Outpatient DANIA ColemanSE SE [id number] 00:30:00 12:32:00 Salim 55 Jacqueline 2021-11-08 2021-11-08 Outpatient DANIA ColemanSE SE [id number] 00:30:00 00:30:00 Salim 55 Jacqueline 2021-11-06 2021-11-06 Office ESPERANZA Connell 1.2.840.114 [id number] [place] 10:45:00 11:24:42 Visit Arash BROTHERS 350.1.13.58 Celestino lang [facility] 9.2.7.2.686 [id number] 2 2021-11-04 2021-11-04 Outpatient Reginald, MHMG MG [id number] 09:40:00 23:59:59 Soha L 2021-10-11 2021-10-22 Outpatient Tate, MHSE MHSE [id number] 10:31:00 17:05:00 Darius 2021-10-11 2021-10-11 Outpatient Ko, MHSE MHSE [id number] 13:30:00 13:30:00 Arash 2021-10-11 2021-10-11 Outpatient Bianca, MHSE MHSE [id number] 10:31:00 10:31:00 Sasha 2021-10-11 2021-10-11 Outpatient Bianca, MHSE MHSE [id number] 10:31:00 10:31:00 Sasha 2021-10-11 2021-10-11 Outpatient Tate, MHSE MHSE [id number] 10:31:00 10:31:00 Darius 2021-09-27 2021-09-30 Outpatient Bianca, MHSE MHSE [id number] 16:11:44 15:55:00 Sasha 2021-09-27 2021-09-27 Outpatient Bianca, MHSE MHSE [id number] 16:11:44 16:11:44 Sasha 2021-09-27 2021-09-27 Emergency E ROSIE, MHSE MHSE [id number] 16:11:00 16:11:00 LAKSHMI ayoub [facility] 2021-07-16 2021-07-16 Office ESPERANZA Connell [facility] 1.2.840.114 [id number] [place] 09:51:23 10:45:55 Visit [facility] 350.1.13.58 [address] 1 9.2.7.2.686 [id number] 2 2021-07-02 2021-07-02 Outpatient Ko, MHSE MHSE [id number] 09:10:00 17:16:00 Arash Eulalio 2021-07-02 2021-07-02 Outpatient Ko, MHSE MHSE [id number] 09:10:00 17:16:00 Arash Eulalio 2021-06-28 2021-06-28 Office ESPERANZA Connell [facility] 1.2.840.114 [id number] [place] 09:49:14 10:45:59 Visit [facility] 350.1.13.58 Celestino LOZANO 1 9.2.7.2.686 [id number] 2 2021-06-16 2021-06-16 Outpatient PRIV PRIV [id number] [facility] 00:00:00 00:00:00 [id number] Medica l Results Test Description Test Time [...] x10 3/uL 0.0-0.1 N NRBC#) BASIC METABOLIC [id number] 15:06:00 Test Item Value Reference Range Interpretation [...] code = 8.4 mg/dL 8.0-10.5 N CA) [id number] 12:54:00 Test Item Value Reference Range Interpretation Comments ACT-ISTAT (test code 273 SEC 74-137 H Perform ed 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 = ACTI) 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 BASIC METABOLIC [id number] 12:47:00 Test Item Value Reference Range Interpretation [...] = 8.4 mg/dL 8.0-10.5 N CA) PROTHROMBIN [id number] 12:47:00 Test Item Value Reference Range Interpretation [...] (to prevent recurrent infar ct). 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 - XR CHEST 1 [id number] 00:00:00 [facility] 1945 Sex: F FAX: Jayy Jefferson MD [phone] [place]: St: ADM FAX: Ortiz Krishnan MD [phone] FAX: Alan Toussaint [phone] Name: EDUARDO [facility] [place] : 1945 Age/S: 76/F [address] [place] [address] Unit #: [id number] Loc: [place] [address] Phys: Alan Toussaint Acct: [id number] Dis Date: Status: ADM IN PHONE #: [phone] Exam Date: 11/20/2021 1558 FAX #: [phone] Reason: WATCHMAN EXAMS: CPT CODE: [id number] XR CHEST 1 V 67470 PROCEDURE INFORMATION: Exam: XR Chest Exam date [...] Ortiz Domingo MD; Alan Toussaint Technologist: XAVI Espinoza) Trnscrd Date/Time/By: 11/20/2021 (9773) : By: [email or web address] Orig Print D/T: S: 11/20/2021 (4650) PAGE 1 Signed [id number] 15:14:00 Test Item Value Reference Range Interpretation Comments PREALBUMIN (test code = PREALB) 12.4 mg/dL 16.0-40.0 L BASIC METABOLIC [id number] 15:14:00 Test Item Value Reference Range Interpretation [...] = 8.3 mg/dL 8.0-10.5 N CA) PROTHROMBIN [id number] 15:06:00 Test Item Value Reference Range Interpretation [...] (to prevent recurrent infar ct). CBC W/AUTO [id number] 14:51:00 Test Item Value Reference Range Interpretation [...] 0.0-0.1 N NRBC#) - XR CHEST 2 [id number] 00:00:00 [facility] 1945 Sex: F FAX: Jayy Jefferson MD [phone] [place]: St: PRE FAX: Ortiz Krishnan MD [phone] ---- Name: DAVID LA [facility] : 1945 Age/S: 76/F [address] [place] [address] Unit #: [id number] Loc: [place] [address] Phys: Ortiz Domingo MD Acct: [id number] Dis Date: Status: PRE SDC PHONE #: Exam Date: 11/18/2021 1559 FAX #: [phone] Reason: PREOP EXAMS: CPT CODE: [id number] XR CHEST 2 V 22131 PROCEDURE INFORMATION: Exam: XR Chest Exam date [...] of acute cardiopulmonary disease. SL: 131 at 2696 Reported and signed by: Saad Arboleda M.D. CC: Jayy Linda MD; Ortiz Domingo MD Technologist: RT Bayron(R) Trnscrd Date/Time/By: 11/18/2021 (2529) : By: Richi Orig Print D/T: S: 11/18/2021 (3050) PAGE 1 Signed Report
[2022-09-22] MEDS ORDERED: FAMOTIDINE 20 MG/2 ML VIAL IV ONE (14:24)
[2022-09-22] MEDS ORDERED: NA CHLORIDE 0.9% 1,000 ML ONE ×2 (14:24→21:59)
--- NOTE | 2022-09-22 14:38 | RAD REPORT ---
EXAM DESCRIPTION: CT - Abdomen Pelvis Wo Contrast - 09/22/2022 2:31 pm CLINICAL HISTORY: Abdominal pain. VD COMPARISON: Spine Lumbar W obliques dated 08/28/2022 TECHNIQUE: CT imaging of the abdomen and pelvis was performed without contrast. Solid organ, bowel a nd vascular assessment is limited due to lack of IV and oral contrast. All CT scans are performed using dose optimization technique as appropriate and may include automated exposure control or mA/KV adjustment according to patient size. FINDINGS: The lung bases are mildly emphysematous. No liver mass or biliary dilatation. Cholecystectomy clips. The spleen, pancreas, adrenal glands are normal. Small cysts are present in both kidneys.No hydronephrosis. Aortoiliac atherosclerosis. No bowel obstruction, free air, free fluid or abscess. Mild to moderate stool retained throughout the colon. The appendix is normal. Mild lumbar degenerative changes are present. IMPRESSION: No acute intra-abdominal or pelvic findings. A limited non-contrast examination was performed as detailed.
[2022-09-22 14:39] LABS: Absolute Lymphocytes (CBC) 0.4 K/uL (0.7-4.9); Hematocrit 30.4 % (36.0-45.0); Lymphocytes % 3.4 % (15.3-44.8); MCV 71.9 fL (80-100); MPV 7.3 fL (7.6-11.3); RBC Red Blood Cell Count 4.22 M/uL (3.86-4.86)
[2022-09-22 14:41] LABS: Protime INR 1.08
[2022-09-22 14:48] LABS: SARS-CoV-2 Antigen Rapid Res Negative (Negative)
[2022-09-22 14:54] LABS: Albumin 2.7 g/dL (3.4-5.0); Bilirubin Direct 0.2 mg/dL (0-0.2); Bilirubin Total 0.7 mg/dL (0.2-1.0); Protein, Total 7.1 g/dL (6.4-8.2)
[2022-09-22 14:56] LABS: Magnesium 1.8 mg/dL (1.6-2.4); Potassium 3.6 mmol/L (3.5-5.1)
[2022-09-22 14:57] LABS: Troponin High Sensitivity 105.5 pg/mL (<58.9)
--- NOTE | 2022-09-22 15:38 | RAD REPORT ---
EXAM DESCRIPTION: RAD - Chest Single View - 09/22/2022 3:23 pm CLINICAL HISTORY: COUGH Chest pain. COMPARISON: Chest Single View dated 08/19/2022; Chest Single View dated 08/18/2022; Chest Single View dated 08/17/2022; Chest Single View dated 03/03/2022 FINDINGS: Portable technique limits examination quality. The lungs are emphysematous but grossly clear. The heart is normal in size. No displaced fractures.Lo wer cervical hardware plate. IMPRESSION: No acute intrathoracic process suspected.
--- NOTE | 2022-09-22 16:49 | ER ---
Nurse's Notes [facility] Name: Neela Staton Age: 77 yrs Sex: Female : 1945 Arrival Date: 09/22/2022 Time: 13:21 Bed 19 Private MD: James Robles C Diagnosis: Vomiting;Diarrhea, unspecified;Dehydration;Non ST elevation SD Presentation: 09/22 13:30 Chief complaint: Patient's son or daughter states: can't keep anything down and has iw been having diarrhea for several days, since , was sent by Dr. Robles. Coronavirus screen: Client presents with at least one sign or symptom that may indicate coronavirus-19. Ebola Screen: Patient negative for fever greater than or equal to 101.5 degrees Fahrenheit, and additional compatible Ebola Virus Disease symptoms Patient denies exposure to infectious person. Patient denies travel to an Ebola-affected area in the 21 days before illness onset. No symptoms or risks identified at this time. Initial Sepsis Screen: Does the patient meet any 2 criteria? No. Patient's initial sepsis screen is negative. Does the patient have a suspected source of infection? No. Patient's initial sepsis screen is negative. Risk Assessment: Do you want to hurt yourself or someone else? Patient reports no desire to harm self or others. Onset of symptoms was September 18, 2022. 13:30 Method Of Arrival: Wheelchair iw 13:30 Acuity: BETHANY 3 iw Historical: - Allergies: 13:31 Codeine; iw - Home Meds: 13:31 sertraline 25 mg Oral tab once daily [Active]; amiodarone 200 mg Oral tab once daily iw [Active]; amlodipine 10 mg tab once daily [Active]; aspirin 81 mg oral cap once daily [Active]; BRILINTA 90 mg Oral tab 2 times per day [Active]; Cymbalta 60 mg Oral cpDR twice a day [Active]; furosemide 40 mg Oral tab 2 times per day [Active]; levothyroxine 100 mcg cap once daily [Active]; lisinopril 20 mg Oral tab twice a day [Active]; magnesium oxide 400 mg magnesium Oral tab twice a day [Active]; Dulera 200-5 mcg/actuation inhalation HFAA 2 puffs 2 times per day [Active]; midodrine 5 mg oral tab 3 times per day [Active]; potassium chloride 20 mEq Oral TbER 2 times per day [Active]; Xanax 0.25 mg Oral tab nightly [Active]; Nexium Oral once daily [Active]; - PMHx: 13:31 Atrial fibrillation; Hypertensive disorder; GERD; High Cholesterol; Hypothyroidism; iw neuropathy; Depression; - PSHx: 13:31 heart stent; right leg stent; iw - Immunization history:: Client reports receiving the 2nd dose of the Covid vaccine. - Social history:: Smoking status: Patient denies any tobacco usage or history of. Screenin:46 [facility] ED Fall Risk Assessment (Adult) History of falling in the last 3 months, mb9 including since admission Yes- physiologic fall (2 pts) Confusion or Disorientation No (0 pts) Intoxicated or Sedated No (0 pts) Impaired Gait Yes (1 pt) Mobility Assist Device Used Yes (1 pt) Altered Elimination No (0 pt) Score/Fall Risk Level 3 or more points = High Risk Oriented to surroundings, Maintained a safe environment, Educated pt \T\ family on fall prevention, incl call for assistance when getting out of bed, Hourly rounding (assess needs \T\ fall precautionary measures) done. Abuse screen: Denies threats or abuse. Nutritional screening: No deficits noted. Tuberculosis screening: No symptoms or risk factors identified. Assessment: 13:47 General: Appears uncomfortable, Behavior is calm, cooperative. Pain: Complains of pain mb9 in LLQ Pain does not radiate. Pain currently is 5 out of 10 on a pain scale. Quality of pain is described as aching. Neuro: Wade Agitation-Sedation Scale (RASS): 0 - Alert and Calm Level of Consciousness is awake, alert, obeys commands, Oriented to person, place, time, situation, Appropriate for age. Cardiovascular: Heart tones S1 S2 present Rhythm is regular. Respiratory: Airway is patent Respiratory effort is even, unlabored, Respiratory pattern is regular, symmetrical, Breath sounds are clear bilaterally. GI: Abdomen is flat, non-distended, Bowel sounds present X 4 quads. Abd is soft Abdomen is tender to palpation in left lower quadrant Reports diarrhea, intolerance of fluids, intolerance of food, nausea, vomiting, since . : No signs and/or symptoms were reported regarding the genitourinary system. EENT: No signs and/or symptoms were reported regarding the EENT system. Derm: Skin is fragile, is thin, Skin is dry, Skin is normal, Skin temperature is warm. Musculoskeletal: Capillary refill < 3 seconds. 14:24 Reassessment: pt taken to CT via stretcher. mb9 15:28 Reassessment: No changes from previously documented assessment. Patient and/or family mb9 updated on plan of care and expected duration. Pain level reassessed. Patient is alert, oriented x 3, equal unlabored respirations, skin warm/dry/pink. 17:24 Reassessment: No changes from previously documented assessment. Patient and/or family mb9 updated on plan of care and expected duration. Pain level reassessed. Patient is alert, oriented x 3, equal unlabored respirations, skin warm/dry/pink. 18:45 Reassessment: No changes from previously documented assessment. Patient and/or family mb9 updated on plan of care and expected duration. Pain level reassessed. Patient is alert, oriented x 3, equal unlabored respirations, skin warm/dry/pink. 19:31 Reassessment: Gave report to SUHAIL Davis. mb9 09/23 08:00 Reassessment: nurse attempted to give report. ap3 Vital Signs: 09/22 13:30 BP 99 / 55; Pulse 82; Resp 16; Temp 98.3; Weight 63.96 kg; Height 5 ft. 7 in. (170.18 iw cm); 13:49 BP 136 / 68; Pulse 87; Resp 16; Pulse Ox 99% on R/A; mb9 15:28 BP 158 / 72; Pulse 74; Resp 20; Pulse Ox 99% on R/A; mb9 17:24 BP 175 / 75; Pulse 84; Resp 20; Pulse Ox 100% ; mb9 19:32 BP 169 / 96; Pulse 74; Resp 19; Pulse Ox 100% on R/A; mb9 13:30 Body Mass Index 22.08 (63.96 kg, 170.18 cm) iw ED Course: 13:21 Patient arrived in ED. rg4 13:21 James Robles MD is Private Physician. rg4 13:31 Triage completed. iw 13:35 Arm band placed on. mb9 13:37 Isabela Barnes RN is Primary Nurse. mb9 13:47 Placed in gown. Bed in low position. Call light in reach. Side rails up X 1. Client mb9 placed on continuous cardiac and pulse oximetry monitoring. NIBP monitoring applied. child monitor on. Door closed. Noise minimized. Warm blanket given. 13:50 Unruly Veras MD is Attending Physician. melchor 14:18 Lipase Sent. mb9 14:18 SARS RAPID Sent. mb9 14:19 Basic Metabolic Panel Sent. mb9 14:19 CBC with Diff Sent. mb9 14:19 Troponin HS Sent. mb9 14:19 LFT's Sent. mb9 14:19 Magnesium Sent. mb9 14:19 NT PRO-BNP Sent. mb9 14:19 PT-INR Sent. mb9 14:32 Abdomen In Process Unspecified. EDMS 15:11 XRAY Chest (1 view) In Process Unspecified. EDMS 16:41 James Robles MD is Hospitalizing Provider. [facility] 09/23 09:44 No provider procedures requiring assistance completed. Patient admitted, IV remains in ap3 place. Administered Medications: 09/22 14:18 Not Given (Physician Discretion): Zofran (Ondansetron) 4 mg IVP once; over 2 minutes mb9 14:24 Drug: NS 0.9% 1000 ml Route: IV; Rate: 1 bolus; Site: right antecubital; mb9 15:29 Follow up: Response: No adverse reaction; IV Status: Completed infusion mb9 14:24 Drug: Pepcid (famotidine) 20 mg Route: IVP; Site: right antecubital; mb9 15:29 Follow up: Response: No adverse reaction mb9 16:56 Drug: Aspirin 81 mg Route: PO; mb9 16:56 Drug: Lovenox (enoxaparin) 60 mg Route: Sub-Q; Site: right lower abdomen; mb9 Medication: 13:47 VIS not applicable for this client. mb9 Outcome: 16:48 Decision to Hospitalize by Provider. [facility] 09/23 09:44 Admitted to ER Hold. Please see [facility] for further documentation. ap3 Condition: good Instructed on the need for admit. 10:04 Patient left the ED. ap3 Signatures: Dispatcher [employer] EDDC Unruly Veras MD MD cha Williams, Irene, RN RN iw Garcia, Rubi 4 Nazanin Andreson RN RN ap3 Isabela Barnes RN RN mb9 Corrections: (The following items were deleted from the chart) 09/22 13:35 13:31 Home Meds: dulera 200/5mcg 2puffs 2xday twice a day; iw iw
--- NOTE | 2022-09-22 16:49 | EDPHYS ---
Physician Documentation [facility] Name: Neela Staton Age: 77 yrs Sex: Female : 1945 Arrival Date: 09/22/2022 Time: 13:21 Bed 19 Private MD: James Linda C ED Physician Unruly Veras HPI: 09/22 16:30 This 77 yrs old Female presents to ER via Wheelchair with complaints of melchor Vomiting/Diarrhea. 16:30 The patient presents to the emergency department with nausea, vomiting, diarrhea, melchor abdominal pain, of the right upper quadrant, left upper quadrant, right lower quadrant and left lower quadrant. Onset: The symptoms/episode began/occurred 2 day(s) ago. Possible causes: unknown. The symptoms are aggravated by nothing. The symptoms are alleviated by nothing. Associated signs and symptoms: The patient has no apparent associated signs or symptoms. Severity of symptoms: At their worst the symptoms were mild. The patient has experienced similar episodes in the past, a few times. Historical: - Allergies: 13:31 Codeine; iw - Home Meds: 13:31 sertraline 25 mg Oral tab once daily [Active]; amiodarone 200 mg Oral tab once daily iw [Active]; amlodipine 10 mg tab once daily [Active]; aspirin 81 mg oral cap once daily [Active]; BRILINTA 90 mg Oral tab 2 times per day [Active]; Cymbalta 60 mg Oral cpDR twice a day [Active]; furosemide 40 mg Oral tab 2 times per day [Active]; levothyroxine 100 mcg cap once daily [Active]; lisinopril 20 mg Oral tab twice a day [Active]; magnesium oxide 400 mg magnesium Oral tab twice a day [Active]; Dulera 200-5 mcg/actuation inhalation HFAA 2 puffs 2 times per day [Active]; midodrine 5 mg oral tab 3 times per day [Active]; potassium chloride 20 mEq Oral TbER 2 times per day [Active]; Xanax 0.25 mg Oral tab nightly [Active]; Nexium Oral once daily [Active]; - PMHx: 13:31 Atrial fibrillation; Hypertensive disorder; GERD; High Cholesterol; Hypothyroidism; iw neuropathy; Depression; - PSHx: 13:31 heart stent; right leg stent; iw - Immunization history:: Client reports receiving the 2nd dose of the Covid vaccine. - Social history:: Smoking status: Patient denies any tobacco usage or history of. ROS: 16:31 Constitutional: Negative for fever, chills, and weight loss, Eyes: Negative for injury, melchor pain, redness, and discharge, ENT: Negative for injury, pain, and discharge, Neck: Negative for injury, pain, and swelling, Cardiovascular: Negative for chest pain, palpitations, and edema, Respiratory: Negative for shortness of breath, cough, wheezing, and pleuritic chest pain, Back: Negative for injury and pain, : Negative for injury, bleeding, discharge, and swelling, MS/Extremity: Negative for injury and deformity, Skin: Negative for injury, rash, and discoloration, Neuro: Negative for headache, weakness, numbness, tingling, and seizure, Psych: Negative for depression, anxiety, suicide ideation, homicidal ideation, and hallucinations, Allergy/Immunology: Negative for hives, rash, and allergies, Endocrine: Negative for neck swelling, polydipsia, polyuria, polyphagia, and marked weight changes, Hematologic/Lymphatic: Negative for swollen nodes, abnormal bleeding, and unusual bruising. 16:31 Abdomen/GI: Positive for abdominal pain, nausea and vomiting, diarrhea, of the right upper quadrant, left upper quadrant, right lower quadrant and left lower quadrant. Exam: 16:31 Constitutional: This is a well developed, well nourished patient who is awake, alert, melchor and in no acute distress. Head/Face: Normocephalic, atraumatic. Eyes: Pupils equal round and reactive to light, extra-ocular motions intact. Lids and lashes normal. Conjunctiva and sclera are non-icteric and not injected. Cornea within normal limits. Periorbital areas with no swelling, redness, or edema. ENT: Nares patent. No nasal discharge, no septal abnormalities noted. Tympanic membranes are normal and external auditory canals are clear. Oropharynx with no redness, swelling, or masses, exudates, or evidence of obstruction, uvula midline. Mucous membranes moist. Neck: Trachea midline, no thyromegaly or masses palpated, and no cervical lymphadenopathy. Supple, full range of motion without nuchal rigidity, or vertebral point tenderness. No Meningismus. Cardiovascular: Regular rate and rhythm with a normal S1 and S2. No gallops, murmurs, or rubs. Normal PMI, no JVD. No pulse deficits. Respiratory: Lungs have equal breath sounds bilaterally, clear to auscultation and percussion. No rales, rhonchi or wheezes noted. No increased work of breathing, no retractions or nasal flaring. Abdomen/GI: Soft, non-tender, with normal bowel sounds. No distension or tympany. No guarding or rebound. No evidence of tenderness throughout. Back: No spinal tenderness. No costovertebral tenderness. Full range of motion. Skin: Warm, dry with normal turgor. Normal color with no rashes, no lesions, and no evidence of cellulitis. MS/ Extremity: Pulses equal, no cyanosis. Neurovascular intact. Full, normal range of motion. Neuro: Awake and alert, GCS 15, oriented to person, place, time, and situation. Cranial nerves II-XII grossly intact. Motor strength 5/5 in all extremities. Sensory grossly intact. Cerebellar exam normal. Normal gait. Psych: Awake, alert, with orientation to person, place and time. Behavior, mood, and affect are within normal limits. 16:31 Chest/axilla: Inspection: normal, Palpation: is normal, no crepitus, no tenderness, Axilla: are normal, no acute changes. 16:31 ECG was reviewed by the Attending Physician. 16:31 Abdomen/GI: Inspection: abdomen appears normal, Bowel sounds: active, all quadrants, Palpation: mild abdominal tenderness, in all quadrants. Vital Signs: 13:30 BP 99 / 55; Pulse 82; Resp 16; Temp 98.3; Weight 63.96 kg; Height 5 ft. 7 in. (170.18 iw cm); 13:49 BP 136 / 68; Pulse 87; Resp 16; Pulse Ox 99% on R/A; mb9 15:28 BP 158 / 72; Pulse 74; Resp 20; Pulse Ox 99% on R/A; mb9 17:24 BP 175 / 75; Pulse 84; Resp 20; Pulse Ox 100% ; mb9 19:32 BP 169 / 96; Pulse 74; Resp 19; Pulse Ox 100% on R/A; mb9 13:30 Body Mass Index 22.08 (63.96 kg, 170.18 cm) iw MDM: 13:50 Patient medically screened. melchor 09/22 13:53 Order name: Basic Metabolic Panel; Complete Time: 16:04 [facility] 09/22 13:53 Order name: CBC with Diff; Complete Time: 16:04 [facility] 09/22 13:53 Order name: LFT's; Complete Time: 16:04 [facility] 09/22 13:53 Order name: Magnesium; Complete Time: 16:04 [facility] 09/22 13:53 Order name: NT PRO-BNP; Complete Time: 16:04 [facility] 09/22 13:53 Order name: PT-INR; Complete Time: 16:04 [facility] 09/22 13:53 Order name: Troponin HS; Complete Time: 16:04 [facility] 09/22 13:53 Order name: Stool Culture [facility] 09/22 13:53 Order name: Lipase; Complete Time: 16:04 [facility] 09/22 13:53 Order name: SARS RAPID; Complete Time: 16:04 [facility] 09/22 13:53 Order name: Lactate w/ 2H reflex if indic.; Complete Time: 16:04 [facility] 09/23 03:02 Order name: CBC with Automated Diff [facility] 09/23 03:33 Order name: Comprehensive Metabolic Panel [facility] 09/23 03:33 Order name: Troponin High Sensitivity [facility] 09/22 13:53 Order name: XRAY Chest (1 view); Complete Time: 16:04 [facility] 09/22 13:53 Order name: EKG; Complete Time: 13:53 [facility] 09/22 13:53 Order name: Cardiac monitoring; Complete Time: 13:56 [facility] 09/22 13:53 Order name: EKG - Nurse/Tech; Complete Time: 14:18 [facility] 09/22 13:53 Order name: IV Saline Lock; Complete Time: 14:19 [facility] 09/22 13:53 Order name: Labs collected and sent; Complete Time: 14:19 [facility] 09/22 13:53 Order name: O2 Per Protocol; Complete Time: 13:56 [facility] 09/22 13:53 Order name: CT Abd/Pelvis - Without Contrast [facility] 09/22 13:57 Order name: Abdomen ; Complete Time: 16:04 [facility] 09/22 16:55 Order name: CONS Physician Consult [facility] 09/23 08:40 Order name: RAD [facility] 09/22 13:53 Order name: O2 Sat Monitoring; Complete Time: 13:56 [facility] 09/22 13:53 Order name: IV Saline Lock - Large Bore; Complete Time: 14:18 melchor EC:31 Rate is 71 beats/min. Rhythm is regular. QRS [place] is Normal. NC interval is normal. QRS melchor interval is normal. QT interval is normal. No Q waves. T waves are Normal. ST Segment is depressed in leads II, III, aVF. Clinical impression: [facility]. Administered Medications: 14:18 Not Given (Physician Discretion): Zofran (Ondansetron) 4 mg IVP once; over 2 minutes mb9 14:24 Drug: NS 0.9% 1000 ml Route: IV; Rate: 1 bolus; Site: right antecubital; mb9 15:29 Follow up: Response: No adverse reaction; IV Status: Completed infusion mb9 14:24 Drug: Pepcid (famotidine) 20 mg Route: IVP; Site: right antecubital; mb9 15:29 Follow up: Response: No adverse reaction mb9 16:56 Drug: Aspirin 81 mg Route: PO; mb9 16:56 Drug: Lovenox (enoxaparin) 60 mg Route: Sub-Q; Site: right lower abdomen; mb9 Disposition Summary: 09/22/22 16:48 Hospitalization Ordered Hospitalization Status: Inpatient Admission melchor Provider: James Linda cha Condition: Fair melchor Problem: new melchor Symptoms: have improved melchor Bed/Room Type: Standard [facility] Location: [facility] ER HOLD(09/23/22 09:55) Room Assignment: ERHOLD-(09/23/22 09:55) Diagnosis - Vomiting melchor - Diarrhea, unspecified melchor - Dehydration melchor - Non ST elevation [place] melchor Forms: - Medication Reconciliation Form melchor - SBAR form melchor Signatures: Dispatcher [employer] Eden Ramos Corey, MD MD cha Williams, Irene, RN RN Mimi Dupont RN RN ss Zo Wallace RN RN Isabela Barnes RN RN mb9 Corrections: (The following items were deleted from the chart) 13:35 13:31 Home Meds: dulera 200/5mcg 2puffs 2xday twice a day; iw iw 18:54 16:48 Telemetry/MedSurg (observation) melchor 18:54 16:48 melchor 09/23 07:08 09/22 18:[address] [facility] ER HOLD [facility] 09/23 07:08 09/22 18:54 ERHOLD- cg 09/23 09:47 07:[address] [place] [address] 09:55 07:08 Telemetry/MedSurg (Inpatient) [facility] 09:55 09:47 bd
[2022-09-22] MEDS ORDERED: ASPIRIN 81 MG CHEWABLE TABLET ONE (16:51)
[2022-09-22] MEDS ORDERED: ENOXAPARIN 60 MG/0.6 ML SQ ONE ×2 (16:51→21:59)
[2022-09-22 18:29] VITALS: BMI 22.1
[2022-09-22] MEDS ORDERED: ONDANSETRON 4 MG/2 ML VIAL IV PRN (18:29)
[2022-09-22] MEDS ORDERED: ACETAMINOPHEN 500 MG TAB PO PRN (18:29)
[2022-09-22] MEDS: NA CHLORIDE 0.9% 1,000 ML IV SCH (18:29)
--- NOTE | 2022-09-22 20:40 | CON ---
Date of Consultation: 09/22/2022 Reason For Consultation: Elevated troponin. History Of Present Illness: This is a 77-year-old female very well known to me from the office and h as medical history of atrial fibrillation, status post left atrial appendage closure, history of hype rtension, dyslipidemia, hypothyroidism, coronary artery disease status post cardiac stents in the pas t, and severe peripheral vascular disease status post multiple interventions and surgery who presente d to the emergency room with nausea and diarrhea with some abdominal discomfort. Workup is being don e in the emergency room. Troponin included was slightly elevated. The patient denies having any ilsa st pain and there is no shortness of breath. She is lying flat without difficulty. Past Medical History: As outlined above in the HPI. Medications: Refer to reconciliation sheet for detailed list. Allergies: NO KNOWN DRUG ALLERGIES. Family History: No premature coronary artery disease or cancer. Social History: She does not smoke or drink. Does not use any drugs. Review of Systems: All systems reviewed and they were negative except for what is mentioned in HPI. Physical Examination: Vital Signs: Reviewed. Head And Neck: Pupils are equal and reactive to light. Intact eye movements. No JVD. No cervical lymphadenopathy. Neck is supple. Thyroid is not enlarged. Lungs: Clear to auscultation bilaterally. No rhonchi, wheezing, or crackles. No accessory muscle u se. Heart: Irregular. No extra sounds. Abdomen: Soft, nontender. Bowel sounds positive. No organomegaly. No masses or hernia. No rigidi ty or rebound. Extremities: No edema, clubbing, or cyanosis. Intact pulses. Skin: No rash. Neurologic: Alert, awake, and oriented x3. No acute focal deficits appreciated. Investigations: Troponin was 105. NT-proBNP was 1463. ALT is 212, AST 272, BUN 17, and creatinine 1.23. Assessment And Recommendations: 1.Elevated troponin. There is no chest pain. She is known to have history of coronary artery disea se, but this is likely demand ischemia. Recommend to trend troponin 2 more sets and further recommen dations will be made according to that. Likely she has an intraabdominal issue going on causing diar zuleyka, nausea, and vomiting that could be gastroenteritis or other pathology and workup is in progress . 2.Elevated NT-proBNP. She is known to have history of congestive heart failure with the last echoca rdiogram being done last month on August 18, 2022. The ejection fraction was normal with grade 1 di astolic dysfunction. At this point, the patient is having diarrhea and she appears to be on the dry side. We will monitor her condition closely. /STEPHANI Voice ID: [id number] Report ID: [id number]
[2022-09-22] MEDS ORDERED: ALPRAZOLAM 0.25 MG TABLET PO SCH (21:00)
[2022-09-22] MEDS ORDERED: TICAGRELOR 90 MG TABLET PO SCH (21:00)
[2022-09-22] MEDS ORDERED: ENOXAPARIN 60 MG/0.6 ML SQ SCH (21:00)
[2022-09-22] MEDS ORDERED: Ciprofloxacin 200mg IV 200 MG/100 ML IV.SOLN. IV SCH (21:00)
[2022-09-22] MEDS ORDERED: ALPRAZOLAM 0.25 MG TABLET ONE (21:58)
[2022-09-22] MEDS ORDERED: TICAGRELOR 90 MG TABLET PO ONE (21:59)
[2022-09-22] MEDS ORDERED: CIPROFLOXACIN 400mg IV 400 MG/200 ML BAG IV ONE (22:00)
[2022-09-23] MEDS ORDERED: MORPHINE 2 MG/ML SYR ONE ×2 (00:27→04:46)
[2022-09-23] MEDS ORDERED: ONDANSETRON 4 MG/2 ML VIAL ONE (00:28)
[2022-09-23] MEDS: MORPHINE 2 MG/ML SYR IV PRN ×2 (00:35→04:40)
[2022-09-23] MEDS: NA CHLORIDE 0.9% 1,000 ML IV SCH (01:34)
[2022-09-23 02:43] VITALS: O2SAT 96
[2022-09-23 02:55] LABS: Absolute Lymphocytes (CBC) 0.6 K/uL (0.7-4.9); Hematocrit 27.1 % (36.0-45.0); Lymphocytes % 5.7 % (15.3-44.8); MCV 71.4 fL (80-100); MPV 7.3 fL (7.6-11.3)
[2022-09-23 03:26] LABS: Albumin 2.4 g/dL (3.4-5.0); Bilirubin Total 0.7 mg/dL (0.2-1.0); Potassium 3.3 mmol/L (3.5-5.1); Protein, Total 6.4 g/dL (6.4-8.2)
[2022-09-23 03:43] VITALS: TEMP 97.9
--- NOTE | 2022-09-23 06:31 | HP ---
Date of Admission: 09/22/2022 Chief Complaint: Nausea, vomiting, diarrhea, and feeling weak. History Of Present Illness: A 77-year-old female patient who came into emergency room with 3 to 4 da ys history of nausea, vomiting, diarrhea, and feeling weak. Denies any fever or chills. No blood in stool. No blood in urine. She contacted office with these complaints and was advised to come to em ergency room. After she was evaluated, she was admitted to the hospital. Denies any chest pain or s hortness of breath. Allergies: NO KNOWN ALLERGIES. Physical Examination: Vital Signs: Height 5 feet 7 inches, weight 141 pounds. General: Awake, alert, oriented, not in distress. HEENT: Head atraumatic, normocephalic. Conjunctivae nonerythematous. Sclerae white. Mouth, no thr ush or edema noted. Ears/Nose, no mass, lesion, discharge noted. Neck: Supple. No JVD, lymph nodes, bruit, thyromegaly noted. Lungs: Bilateral good equal air entry. Clear to auscultation. No rhonchi. No rales. Heart: Normal heart sounds, no murmur or gallop. Abdomen: Soft, bowel sounds normal. No guarding, rigidity, tenderness, mass, hepatosplenomegaly, dis tention, or bruit noted. Extremities: No leg edema. No calf tenderness. Skin: No rash, ulcer, cellulitis. Lymphatics: No lymph node enlargement in neck, supraclavicular, infraclavicular region. Neuro: No focal neurological deficit. Chest: Unremarkable. External Genitalia: Deferred. Rectal: Deferred. Laboratory Data: Sodium 136, potassium 3.6, chloride 99, bicarb 27, BUN 17, creatinine 1.23, glucose 102, magnesium 1.8. AST 272, ALT 212, alkaline phosphatase 245. Troponin 105.5, total bilirubin 0. 7, direct bilirubin 0.2, lipase 86. CAT scan of the abdomen and pelvis, no acute intraabdominal find ing. Chest x-ray, no acute intrathoracic process noted. WBC , hemoglobin , plat elets . Impression: 1.Acute gastroenteritis. 2.Chronic obstructive pulmonary disease. 3.Chronic diastolic heart failure. 4.Orthostatic hypotension. 5.Coronary artery disease. 6.Peripheral vascular disease. 7.Hypertension. 8.Paroxysmal atrial fibrillation. 9.Hyperlipidemia. 10.Aortic atherosclerosis. 11.Anxiety. 12.Compression fracture of lumbar spine. Plan: Admit patient to hospital for further evaluation and management of this problem. Patient is a ppropriate for inpatient and is expected to spend 2 midnights in hospital. We will go ahead and give IV Cipro per order. Continue home medications for hypertension per order. Monitor blood pressure. If necessary, adjust antihypertensive medication. For orthostatic hypotension, she is on midodrine. We will continue that. For hyperlipidemia, we will continue her statin therapy. For coronary binu ry disease and elevated troponin level, which could be demand ischemia, Cardiology consultation has ping ramos requested. We will continue her home medication including anti-platelet therapy. COPD problem i s stable and at this time, no further intervention is needed. Details and plan of treatment discusse d with her. I will see her tomorrow for followup. LUIS/MODL Voice ID: [id number]
[2022-09-23] MEDS ORDERED: POTASSIUM CL SA 10 MEQ TAB PO ONE (07:19)
--- NOTE | 2022-09-23 08:40 | RAD REPORT ---
EXAM DESCRIPTION: RAD - Hip Left 2 View - 09/23/2022 8:20 am CLINICAL HISTORY: Left hip pain FINDINGS: No acute fracture or dislocation seen. Left femoral stent in place. Osteoporosis. Mild osteoarthritis left hip
[2022-09-23] MEDS ORDERED: FAMOTIDINE 20 MG TAB PO SCH (09:00)
[2022-09-23] MEDS ORDERED: FAMOTIDINE 20 MG/2 ML VIAL IV SCH (09:00)
[2022-09-23] MEDS ORDERED: ASPIRIN EC 81 MG TAB PO SCH (09:00)
[2022-09-23 09:44] VITALS: BP 117/50
--- NOTE | 2022-09-23 14:24 | EKG ---
Test Date: 2022-09-22 Test Time: 14:04:50 [employer]: MB MEASUREMENT RESULTS: Intervals: Rate: 71 RI: 160 QRSD: 80 QT: 462 QTc: 502 [place]: P: 89 RI: 160 QRS: 82 T: 82 INTERPRETIVE STATEMENTS: Normal sinus rhythm Nonspecific ST abnormality Prolonged QT Abnormal ECG Compared to ECG 08/19/2022 12:24:59 ST (T wave) deviation now present Electronically Signed On 09-23-22 14:22:18 [employer] by Ortiz Domingo
--- NOTE | 2022-09-23 19:28 | DS ---
Date of Discharge: 09/23/2022 Disposition: Discharged to go home. Physical Examination: HEENT: Unremarkable. Lungs: Clear to auscultation. Heart: Sounds normal. Abdomen: Soft. Bowel sounds normal. No guarding, rigidity, tenderness, distention. Extremities: No leg edema. Final Diagnoses: 1.Acute gastroenteritis. 2.Chronic obstructive pulmonary disease. 3.Chronic diastolic heart failure. 4.Orthostatic hypotension. 5.Coronary artery disease. 6.Peripheral vascular disease. 7.Hypertension. 8.Paroxysmal atrial fibrillation. 9.Hyperlipidemia. 10.Aortic atherosclerosis. 11.Anxiety. 12.Compression fracture of lumbar spine. Laboratory Data: Yesterday, white count 11.6, hemoglobin 9.7, platelets 441. Today, white count 10. 10, hemoglobin 8.8, platelets 392. Yesterday, sodium 136, potassium 3.6, chloride 99, bicarb 27, BUN 17, creatinine 1.23, glucose 102. Liver function tests; AST 272, ALT 212, alkaline phosphatase 245. Troponin 105 and this morning, the AST 284, ALT 191, alkaline phosphatase 226. Troponin 105. BUN 16, creatinine 1.04, potassium 3.3, sodium 135. Discharge Medications: Continue all prior home medications except do not take any atorvastatin and d o not take any amiodarone and I have called the patient's daughter this morning and given her instruc tions personally on the phone about stopping these 2 medications in view of abnormal liver function t ests. Instructions: 1.Follow up at my office next week. 2.Patient to come to office day before office appointment to get liver function tests done and will follow up on that. 3.Take Cipro 250 mg 2 times a day for 1 week. Hospital Course: This is a 77-year-old very pleasant female patient admitted to the hospital with na usea, vomiting, diarrhea, feeling weak. After she was admitted to the hospital, she was given IV Cip ro, IV antibiotics, and overall her condition has improved. This morning, she was evaluated and was discharged to go home in stable condition with above-mentioned medications and instructions. LUIS/MODL Voice ID: [id number] Report ID: [id number]
== END 2022-09-23 10:03 | disposition home or self-care (01) ==
LOC: ER 13:19 → ERHOLD 16:51 → INTOOBSV 16:51 → ERHOLD 20:13
PROVIDERS: ADMIT Internal Medicine; ATTEND Internal Medicine
DX: K52.9 Noninfective gastroenteritis and colitis, unspecified (principal); R19.7 Diarrhea, unspecified; J44.9 Chronic obstructive pulmonary disease, unspecified; I50.32 Chronic diastolic (congestive) heart failure; I25.10 Atherosclerotic heart disease of native coronary artery without angina pectoris; I73.9 Peripheral vascular disease, unspecified; I10 Essential (primary) hypertension; I48.0 Paroxysmal atrial fibrillation; E78.5 Hyperlipidemia, unspecified; F41.9 Anxiety disorder, unspecified; I70.0 Atherosclerosis of aorta; M48.56XA Collapsed vertebra, not elsewhere classified, lumbar region, initial encounter for fracture; Z20.822 Contact with and (suspected) exposure to COVID-19
CPT/HCPCS: 36415; 71045; 74176; 80048; 80053; 80076; 83605; 83690; 83735; 83880; 84484; 85025; 85610; 87811; 93005; 96361; 96372; 96374; 99285; G0378; J0744; J1650; J2270; J2405; J7030

== ENCOUNTER 2022-10-13 10:20 | Observation (INO) | payer OTHER ==
--- OUTSIDE RECORDS SUMMARY | 2022-10-13 10:25 | XMS REPORT | Continuity of Care Document ---
:1945 Author Organization [facility] t Address [address] [place] [address] Care Team Providers Name Role Phone Asked, No Pcp Primary Care Physician Unavailable [id number] Attending Clinician Unavailable ARASH CONNELL Attending Clinician Unavailable ARASH CONNELL Attending Clinician Unavailable Minesh Gallegos Attending Clinician RICHIE MARTIN Attending Clinician Unavailable Soha Montelongo Attending Clinician Ortiz Domingo Attending Clinician Unavailable Kenny Medley Attending Clinician Unavailable Severo Coleman Attending Clinician Darius Ybarra Attending Clinician Arash Connell Attending Clinician Sasha Valenzuela Attending Clinician LAKSHMI VELEZ Attending Clinician Unavailable [id number] Admitting Clinician Unavailable ARASH CONNELL Admitting Clinician Unavailable Jayy Linda Admitting Clinician Unavailable Ortiz Domingo Admitting Clinician Unavailable Reza Rojo Admitting Clinician Sasha Valenzuela Admitting Clinician Arash Connell Admitting Clinician Kathy Wren Terell Admitting Clinician Payers Payer Name Policy Type Policy Number Effective Date Expiration Date S ource AETM AETM [id number] AETNA MEDICARE [id number] 2020 2024 PPO 00:00:00 00:00:00 Problems Condition [...] Allergie 3-07 Clear s 00:00: Sampson 00 [facility] codeine DA Active NE AFFECTS [facility] HIATAL 3-07 Clear HERNIA 00:00: Sampson 00 [facility] Codeine Allergy Active Unknown 2019-0 [facility] to 7-17 Health substanc 00:00: e 00 Social History Social Habit Start Date Stop Date Quantity Comments Source Tobacco use and 2021-06-28 2021-06-28 Smokeless tobacco [facility] exposure 00:00:00 00:00:00 non-user Sex Ass[birth year] [facility] 00:00:00 00:00:00 Hospital Smoking Status Start Date Stop Date Source Tobacco smoking consumption unknown [facility] Smokes tobacco daily 2021-06-28 00:00:00 [facility] Medications Ordered Filled Start Stop Current Ordering Indication Dosage Frequency Signature Comments Components Source Medication Medication Date Date Medication? Clinician (SIG) Name Name acetaminoph Yes [id number] 1{tbl} Take 1 UT en-codeine 5-02 tablet by [facility]al [facility] (TYLENOL/CO 00:00: mouth DEINE #3) 00 every 4 300-30 MG (four) tablet hours if needed for severe pain. naloxone 2022- No [id number] .4mg Administer [facility] (Narcan) 2 11-18-08 0.4 mL Health MG/2ML 00:00: 05:59 (0.4 mg injection 00 :00 total) into affected nostril(s) if needed for opioid reversal. May repeat every 2-3 minutes as needed until medical assistance available. naloxone 2022- No [id number] .4mg Administer [facility] (Narcan) 2 11-18-08 0.4 mL Health MG/2ML 00:00: 05:59 (0.4 mg injection 00 :00 total) into affected nostril(s) if needed for opioid reversal. May repeat every 2-3 minutes as needed until medical assistance available. naloxone 2022- No [id number] .4mg Administer [facility] (Narcan) 2 11-18-08 0.4 mL Health MG/2ML 00:00: 05:59 (0.4 mg injection 00 :00 total) into affected nostril(s) if needed for opioid reversal. May repeat every 2-3 minutes as needed until medical assistance available. naloxone 2022- No [id number] .4mg Administer UT (Narcan) 2 11-18-08 0.4 mL Health MG/2ML 00:00: 05:59 (0.4 mg injection 00 :00 total) into affected nostril(s) if needed for opioid reversal. May repeat every 2-3 minutes as needed until medical assistance available. traMADol 2021- No [id number] 50mg Take 1 UT (Ultram) 50 3-07 [...] 12:07: 12 ASPIRIN 2020-09 Yes Take by GA ADULT PO 2-06 mouth. Health 12:07: 12 Apixaban 2020-09 Yes Take by GA (ELIQUIS 2-06 mouth. Health PO) 12:07: 12 ASPIRIN 2020-09 Yes Take by GA ADULT PO 2-06 mouth. Health 12:07: 12 traMADol 2020-09- No [id number] 50mg Take 1 U T (Ultram) 50 1-02 11-08 tablet (50 H ealth MG tablet 00:00: 05:59 mg total) 00 :00 by mouth every 8 (eight) hours if needed for severe pain for up to 5 days. traMADol 2020-09- No [id number] 50mg Q6H Take 1 U T (Ultram) 50 0-15 10-23 tablet (50 H ealth MG tablet 00:00: 04:59 mg total) 00 :00 by mouth every 6 (six) hours if needed for severe pain for up to 7 days. amLODIPine 1-0 Yes [facility] (Norvasc) 9-19 Health [...] tablet 00 ALPRAZolam 0 Yes UT (Xanax) 9 Health 0.25 MG 00:00: tablet 00 ALPRAZolam 0 Yes UT (Xanax) 908 Health 0.25 MG 00:00: tablet 00 ALPRAZolam 0 Yes UT (Xanax) 908 Health 0.25 MG 00:00: tablet 00 ALPRAZolam 0 Yes UT (Xanax) 908 Health 0.25 MG 00:00: tablet 00 ALPRAZolam 0 Yes UT (Xanax) 908 Health 0.25 MG 00:00: tablet 00 traZODone 0 Yes 100mg Take 100 UT [...] every night. metoprolol 0 Yes UT succinate 8-31 Health XL 00:00: [...] Source Body height 2022-07-09 14:00:00 170.2 cm [facility] Body weight 2022-07-09 14:00:00 73.936 kg [facility] BMI 2022-07-09 14:00:00 25.53 kg/m2 [facility] Procedures Procedure Date / Time Performed Performing Clinician [facility] e CT ANGIOGRAM ABDOMINAL 2022-07-09 15:35:12 Richie Martin [facility] AORTA AND BILATERAL ILIOFEMORAL RUNOFF W WO CONTRAST POC CREATININE 2022-07-09 14:13:00 Javier Nunes [facility] ESTIMATED GFR 2022-07-09 14:13:00 Mnaju Javier Forbes [facility] [id number] [facility] Planned Activity Planned Date Details Comments Source Future Scheduled 2022-10-09 COVID-19 VACCINE (#1) [facility] Test 11:17:54 [code = COVID-19 VACCINE (#1)] Future Scheduled 2022-10-09 [facility] Test 11:17:54 (procedure) [code = 670020139] Future Scheduled 2022-10-09 SHINGLES VACCINES (1 [facility] Test 11:17:54 of 2) [code = SHINGLES VACCINES (1 of 2)] Future Scheduled 2022-10-09 INFLUENZA VACCINE [facility] Test 11:17:54 [code = INFLUENZA VACCINE] Future Scheduled 2022-10-09 65+ PNEUMOCOCCAL [facility] Test 11:17:54 VACCINE (2 - PCV) [code = 65+ PNEUMOCOCCAL VACCINE (2 - PCV)] Future Scheduled 2022-09-28 COVID-19 VACCINE (#1) [facility] Test 10:31:23 [code = COVID-19 VACCINE (#1)] Future Scheduled 2022-09-28 [facility] Test 10:31:23 (procedure) [code = 405744114] Future Scheduled 2022-09-28 SHINGLES VACCINES (1 [facility] Test 10:31:23 of 2) [code = SHINGLES VACCINES (1 of 2)] Future Scheduled 2022-09-28 INFLUENZA VACCINE [facility] Test 10:31:23 [code = INFLUENZA VACCINE] Future Scheduled 2022-09-28 65+ PNEUMOCOCCAL [facility] Test 10:31:23 VACCINE (2 - PCV) [code = 65+ PNEUMOCOCCAL VACCINE (2 - PCV)] Future Scheduled 2022-09-28 COVID-19 VACCINE (#1) [facility] Test 10:31:23 [code = COVID-19 VACCINE (#1)] Future Scheduled 2022-09-28 [facility] Test 10:31:23 (procedure) [code = 071780713] Future Scheduled 2022-09-28 SHINGLES VACCINES (1 [facility] Test 10:31:23 of 2) [code = SHINGLES VACCINES (1 of 2)] Future Scheduled 2022-09-28 INFLUENZA VACCINE [facility] Test 10:31:23 [code = INFLUENZA VACCINE] Future Scheduled 2022-09-28 65+ PNEUMOCOCCAL [facility] Test 10:31:23 VACCINE (2 - PCV) [code = 65+ PNEUMOCOCCAL VACCINE (2 - PCV)] Future Scheduled 2022-08-27 COVID-19 VACCINE (#1) [facility] Test 06:40:57 [code = COVID-19 VACCINE (#1)] Future Scheduled 2022-08-27 [facility] Test 06:40:57 (procedure) [code = 086482728] Future Scheduled 2022-08-27 SHINGLES VACCINES (1 [facility] Test 06:40:57 of 2) [code = SHINGLES VACCINES (1 of 2)] Future Scheduled 2022-08-27 INFLUENZA VACCINE [facility] Test 06:40:57 [code = INFLUENZA VACCINE] Future Scheduled 2022-08-27 65+ PNEUMOCOCCAL [facility] Test 06:40:57 VACCINE (2 - PCV) [code = 65+ PNEUMOCOCCAL VACCINE (2 - PCV)] Future Scheduled 2022-08-27 COVID-19 VACCINE (#1) [facility] Test 06:40:57 [code = COVID-19 VACCINE (#1)] Future Scheduled 2022-08-27 [facility] Test 06:40:57 (procedure) [code = 410223076] Future Scheduled 2022-08-27 SHINGLES VACCINES (1 [facility] Test 06:40:57 of 2) [code = SHINGLES VACCINES (1 of 2)] Future Scheduled 2022-08-27 INFLUENZA VACCINE [facility] Test 06:40:57 [code = INFLUENZA VACCINE] Future Scheduled 2022-08-27 65+ PNEUMOCOCCAL [facility] Test 06:40:57 VACCINE (2 - PCV) [code = 65+ PNEUMOCOCCAL VACCINE (2 - PCV)] Future Scheduled 2022-08-27 COVID-19 VACCINE (#1) [facility] Test 06:40:57 [code = COVID-19 VACCINE (#1)] Future Scheduled 2022-08-27 [facility] Test 06:40:57 (procedure) [code = 568191675] Future Scheduled 2022-08-27 SHINGLES VACCINES (1 [facility] Test 06:40:57 of 2) [code [...] (#1)] Future Scheduled 2022-08-27 [facility] Test 06:40:57 (procedure) [code = 961748192] Future Scheduled 2022-08-27 SHINGLES VACCINES (1 [facility] Test 06:40:57 of 2) [code = SHINGLES VACCINES (1 of 2)] Future Scheduled 2022-08-27 [facility]FLUENZA VACCINE [facility] Test 06:40:57 [code = INFLUENZA VACCINE] Future Scheduled 2022-08-27 65+ PNEUMOCOCCAL [facility] Test 06:40:57 VACCINE (2 - PCV) [code = 65+ PNEUMOCOCCAL VACCINE (2 - PCV)] Future Scheduled 2022-08-27 COVID-19 VACCINE (#1) [facility] Test 06:40:57 [code = COVID-19 VACCINE (#1)] Future Scheduled 2022-08-27 [facility] Test 06:40:57 (procedure) [code = 712866189] Future Scheduled 2022-08-27 SHINGLES VACCINES (1 [facility] Test 06:40:57 of 2) [code [...] (#1)] Future Scheduled 2022-08-27 Hepatitis C screening [facility] Test 06:40:57 (procedure) [code = 776037543] Future Scheduled 2022-08-27 SHINGLES VACCINES (1 [facility] Test 06:40:57 of 2) [code = SHINGLES VACCINES (1 of 2)] Future Scheduled 2022-08-27 INFLUENZA VACCINE [facility] Test 06:40:57 [code = INFLUENZA VACCINE] Future Scheduled 2022-08-27 65+ [address] [facility] Test 06:40:57 VACCINE (2 - PCV) [code = 65+ PNEUMOCOCCAL VACCINE (2 - PCV)] Future Scheduled 2022-07-17 HEPATITIS B VACCINES [facility] Test 07:30:39 (1 of 3 - 3-dose series) [code = HEPATITIS B VACCINES (1 of 3 - 3-dose series)] Future Scheduled 2022-07-17 COVID-19 VACCINE (#1) [facility] Test 07:30:39 [code = COVID-19 VACCINE (#1)] Future Scheduled 2022-07-17 Hepatitis C screening [facility] Test 07:30:39 (procedure) [code = 731486899] Future Scheduled 2022-07-17 SHINGLES VACCINES (1 [facility] Test 07:30:39 of 2) [code = SHINGLES VACCINES (1 of 2)] Future Scheduled 2022-07-17 INFLUENZA VACCINE [facility] Test 07:30:39 [code = INFLUENZA VACCINE] Future Scheduled 2022-07-17 65+ [facility]OCO[address] [facility] Test 07:30:39 VACCINE (2 - PCV) [code = 65+ PNEUMOCOCCAL VACCINE (2 - PCV)] Future Scheduled 2022-07-17 HEPATITIS B VACCINES [facility] Test 07:30:39 (1 of 3 - 3-dose series) [code = HEPATITIS B VACCINES (1 of 3 - 3-dose series)] Future Scheduled 2022-07-17 COVID-19 VACCINE (#1) [facility] Test 07:30:39 [code = COVID-19 VACCINE (#1)] Future Scheduled 2022-07-17 Hepatitis C screening [facility] Test 07:30:39 (procedure) [code = 870580372] Future Scheduled 2022-07-17 SHINGLES VACCINES (1 [facility] Test 07:30:39 of 2) [code = SHINGLES VACCINES (1 of 2)] Future Scheduled 2022-07-17 INFLUENZA VACCINE [facility] Test 07:30:39 [code = INFLUENZA VACCINE] Future Scheduled 2022-07-17 65+ [facility]UMOCO[address] [facility] Test 07:30:39 VACCINE (2 - PCV) [code = 65+ PNEUMOCOCCAL VACCINE (2 - PCV)] Encounters Start End Encounter Admission Attending Care Care Encounter Source Date/Time Date/Time Type Type Clinicians Facility Department ID 2022-10-13 Outpatient 3 [id number] [facility] CRD [id number] [facility] 09:51:27 [facility] 2022-09-26 Outpatient 3 [id number] [facility] CRD [id number] [facility] 10:45:58 [facility] [place] [facility] 2022-09-25 Outpatient 3 [id number] [facility] REF [id number] [facility] 12:30:18 0[facility] [place] 2022-04-03 Outpatient JUSTEN CONNELL MHSE [id number] MH 15:59:49 [facility] 2021-11-21 Outpatient [facility] [id number] [place] 10:56:53 Health 2021-11-21 Outpatient [facility] [id number] [place] 10:55:46 Health 2021-10-22 Outpatient 3 [id number] ENC[facility] CRD [id number] [facility] 10:32:05 0208 [facility] [place] 2021-10-16 Outpatient 3 [id number] ENC[facility] REF [id number] [facility] 10:31:34 0202 [facility] [place] 2021-10-01 Outpatient KO [facility] [id number] [place] 01:05:41 [facility] 2021-09-27 Inpatient DANIA CONNELLSE MHSE [id number] MH 14:57:03 [facility] 2021-09-24 Outpatient KO [facility] [id number] [place] 14:24:58 [facility] 2021-09-16 Outpatient [facility] [id number] [place] 08:56:13 [facility] 2021-09-16 Outpatient [facility] [id number] [place] 08:54:24 [facility] 2021-08-19 Outpatient KO, [facility] [id number] [place] 07:57:20 [facility] 2021-08-19 Outpatient [facility] [id number] [place] 07:56:39 [facility] 2021-08-19 Outpatient [facility] [id number] [place] 07:55:37 [facility] 2021-07-23 Outpatient [facility] [id number] UT 10:43:22 [facility] 2021-07-23 Outpatient KO, [facility] [id number] UT 10:42:25 [facility] 2021-07-23 Outpatient [facility] [id number] UT 10:36:58 [facility] 2022-07-23 2022-07-23 Outpatient RATNA Gallegos [id number] 13:00:00 13:00:00 Minesh 06 [facility] 2022-07-09 2022-07-09 [facility] [id number] 067 [place] 00:00:00 00:00:00 DIVYANG [address] 2022-07-03 2022-07-03 Transcribe Ayar, 1.2.840.1 [id number] [id number] Methodi 00:00:00 00:00:00 Orders Divyang C [address]249.1.[address] 3.430.2.7 Hospit a .3.830717 l .8 2022-07-03 2022-07-03 Transcribe Ayar, 1.2.840.1 [id number] [facility]i 00:00:00 00:00:00 Orders Divyang C [address]16.1.[address] 3.430.2.7 Hospit a .3.154458 l .8 2022-05-23 2022-05-23 Outpatient RATNA Gallegos [id number] 13:15:00 23:59:59 Minesh 05 [facility] 2022-04-29 2022-04-29 Outpatient [facility] [id number] UT 10:00:00 10:00:00 [facility] 2022-04-10 2022-04-10 Outpatient RATNA Gallegos [id number] 08:15:00 23:59:59 Minesh 04 Andrei 2022-03-10 2022-03-10 Outpatient GOLD GallegosSCHER MHMISCHER [id number] 11:30:00 23:59:59 Minesh 03 Andrei 2022-02-19 2022-02-19 Outpatient DANIA GallegosMISCHER MHMISCHER [id number] 15:15:00 15:15:00 Minesh 02 Andrei 2022-01-13 2022-01-13 Office ESPERANZA Connell [facility] 1.2.840.114 [id number] [place] 10:00:00 10:15:00 Visit Arash SAMPSON 350.1.13.58 [facility] CONN 9.2.7.2.686 CLINIC [id number] 2022-01-06 2022-01-06 Outpatient [facility] [id number] 09:20:00 09:20:00 Soha Valencia 2022-01-01 2022-01-01 Telephonic ESPERANZA Connell 1.2.840.114 [id number] UT 07:45:00 08:52:16 Encounter Arash SERRANO 350.1.13.58 Health CLINIC 9.2.7.2.686 [id number] 2021-12-18 2021-12-18 Inpatient ANISA Domingo, HECTORCL OUTD [id number] [facility] 05:16:00 05:16:00 Ortiz 70 [facility] 2021-12-04 2021-12-04 Telephonic ESPERANZA Connell 1.2.840.114 [id number] UT 07:45:00 08:47:54 Encounter Arash SERRANO 350.1.13.58 [facility] 9.2.7.2.686 [id number] 2021-11-20 2021-11-21 Inpatient ANISA Medley, HECTORCL INTE.02 [id number] [facility] 14:27:00 13:39:00 Molham 30 [facility] 2021-11-18 2021-11-18 Office ESPERANZA CONNELL [facility] 1.2.840.114 [id number] UT 10:00:00 10:15:00 Visit ARASH SAMPSON 350.1.13.58 Celestino CONN 9.2.7.2.686 [facility] [id number] 2021-11-08 2021-11-11 Outpatient Jared, MHSE MHSE [id number] 00:30:00 12:32:00 Saliluis 55 Noorjijimenaangela 2021-11-08 2021-11-08 Outpatient Jared, MHSE MHSE [id number] 00:30:00 00:30:00 Salim 55 Noorjijimenaai 2021-11-06 2021-11-06 Office ESPERANZA Connell 1.2.840.114 [id number] [place] 10:45:00 11:24:42 Visit Arash SILVERTER 350.1.13.58 [facility] 9.2.7.2.686 [id number] 2021-11-04 2021-11-04 Outpatient Reginald, MHMG MG [id number] 09:40:00 23:59:59 Soha L 2021-10-11 2021-10-22 Outpatient Tate, MHSE MHSE [id number] 10:31:00 17:05:00 Darius 2021-10-11 2021-10-11 Outpatient Ko, MHSE MHSE [id number] 13:30:00 13:30:00 Arash Tsai 2021-10-11 2021-10-11 Outpatient Bianca, MHSE MHSE [id number] 10:31:00 10:31:00 Sasha 2021-10-11 2021-10-11 Outpatient Bianca, MHSE MHSE [id number] 10:31:00 10:31:00 Sasha 2021-10-11 2021-10-11 Outpatient Tate, MHSE MHSE [id number] 10:31:00 10:31:00 Darius 2021-09-27 2021-09-30 Outpatient Bianca, MHSE MHSE [id number] 16:11:44 15:55:00 Sasha 2021-09-27 2021-09-27 Outpatient Bianca, MHSE MHSE [id number] 16:11:44 16:11:44 Sasha 2021-09-27 2021-09-27 Emergency E ROSIE, MHSE MHSE [id number] 16:11:00 16:11:00 LAKSHMI ayoub [facility] 2021-07-16 2021-07-16 Office Ko [facility] 1.2.840.114 [id number] [place] 09:51:23 10:45:55 Visit [facility] 350.1.13.58 [address] 9.2.7.2.686 [id number] 2 2021-07-02 2021-07-02 Outpatient Ko [facility] [id number] 09:10:00 17:16:00 [place] [id number] Eulalio 2021-07-02 2021-07-02 [facility] [id number] 09:10:00 17:16:00 Arash Eulalio 2021-06-28 2021-06-28 Office Ko [facility] 1.2.840.114 [id number] UT 09:49:14 10:45:59 Visit [facility] 350.1.13.58 [address] 9.2.7.2.686 [id number] 2021-06-16 2021-06-16 Outpatient PRIV PRIV [id number] [facility] 00:00:00 00:00:00 [id number] Medica l Results Test Description Test Time [...] x10 3/uL 0.0-0.1 N NRBC#) BASIC METABOLIC [id number] 15:06:00 Test Item Value Reference Range Interpretation [...] code = 8.4 mg/dL 8.0-10.5 N CA) [id number] 12:54:00 Test Item Value Reference Range Interpretation Comments ACT-ISTAT (test code 273 SEC 74-137 H Perform ed 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 = ACTI) 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 BASIC METABOLIC [id number] 12:47:00 Test Item Value Reference Range Interpretation [...] = 8.4 mg/dL 8.0-10.5 N CA) PROTHROMBIN [id number] 12:47:00 Test Item Value Reference Range Interpretation [...] (to prevent recurrent infar ct). 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 [facility] BASIC METABOLIC [id number] 07:56:00 Test Item Value Reference Range Interpretation [...] 8.7 mg/dL 8.0-10.5 N CA) CBC W/AUTO [id number] 06:58:00 Test Item Value Reference Range Interpretation [...] = 0.00 x10 3/uL 0.0-0.1 N NRBC#) [id number] 13:45:00 Test Item Value Reference Range Interpretation Comments ACT-ISTAT (test code 261 SEC 74-137 H Perform ed 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 = ACTI) 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 [facility] - XR CHEST 1 [id number] 00:00:00 [facility] EDUARDO [place] : 1945 Sex: F FAX: Jayy Jefferson MD [phone] Solomon: St: ADM FAX: Ortiz Krishnan MD [phone] FAX: Alan Toussaint [phone] Name: EDUARDO [facility] : 1945 Age/S: 76/F [address] [place] [address] Unit #: [id number] Loc: [place] [address] Phys: Alan Toussaint 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 at 1604 Reported and signed by: Ernesto Anthony CC: Jayy Linda MD; Ortiz Domingo MD; Alan Toussaint Technologist: RT Alexis(Ilan) Trnscrd Date/Time/By: 11/20/2021 (3291) : By: [email or web address] Orig Print D/T: S: 11/20/2021 (3564) PAGE 1 Signed [id number] 15:14:00 Test Item Value Reference Range Interpretation Comments PREALBUMIN (test code = PREALB) 12.4 mg/dL 16.0-40.0 L BASIC METABOLIC [id number] 15:14:00 Test Item Value Reference Range Interpretation [...] = 8.3 mg/dL 8.0-10.5 N CA) PROTHROMBIN [id number] 15:06:00 Test Item Value Reference Range Interpretation [...] (to prevent recurrent infar ct). CBC W/AUTO [id number] 14:51:00 Test Item Value Reference Range Interpretation [...] 0.0-0.1 N NRBC#) - XR CHEST 2 [id number] 00:00:00 [facility]: EDUARDO LA [facility] : 1945 Sex: F FAX: Jayy Jefferson MD [phone] Solomon: St: PRE FAX: Ortiz Krishnan MD [phone] ---- Name: DAVID LA [facility] : 1945 Age/S: 76/F [address] [place] [address] Blvd Unit #: [id number] Loc: [place] [address] Phys: Ortiz Domingo MD Acct: [id number] Dis Date: Status: PRE SDC PHONE #: [phone] Exam Date: 11/18/2021 1553 FAX #: [phone] Reason: PREOP EXAMS: CPT CODE: [id number] XR CHEST 2 V 19843 PROCEDURE INFORMATION: Exam: XR Chest Exam date [...] of acute cardiopulmonary disease. SL: 131 at 0370 Reported and signed by: Saad Arboleda M.D.CC: Jayy Linda MD; Ortiz Domingo MD Technologist: XAVI Verma) Trnscrd Date/Time/By: 11/18/2021 (0148) : By: Richi Orig Print D/T: S: 11/18/2021 (2472) PAGE 1 Signed Report
[2022-10-13] MEDS ORDERED: ONDANSETRON 4 MG/2 ML VIAL ONE (11:06)
[2022-10-13] MEDS ORDERED: Ringers Lactate 1,000 ML IV ONE (11:08)
[2022-10-13 11:18] LABS: Absolute Lymphocytes (CBC) 0.8 K/uL (0.7-4.9); Hematocrit 33.8 % (36.0-45.0); Lymphocytes % 6.7 % (15.3-44.8); MCV 71.8 fL (80-100); MPV 7.3 fL (7.6-11.3); RBC Red Blood Cell Count 4.71 M/uL (3.86-4.86)
[2022-10-13 11:28] LABS: Albumin 2.9 g/dL (3.4-5.0); Potassium 3.1 mmol/L (3.5-5.1)
[2022-10-13 11:30] LABS: Bilirubin Total 0.4 mg/dL (0.2-1.0); Protein, Total 7.9 g/dL (6.4-8.2)
[2022-10-13 12:09] LABS: SARS-COV-2 RT PCR NEGATIVE (NEGATIVE)
--- NOTE | 2022-10-13 12:33 | RAD REPORT ---
EXAM DESCRIPTION: CTAbdomen Pelvis W Contrast - 10/13/2022 11:52 am CLINICAL HISTORY: Abdominal pain. lower abdominal pain, vomiting, diarrhea COMPARISON: Hip Left 2 View dated 09/23/2022 TECHNIQUE: Biphasic CT imaging of the abdomen and pelvis was performed with 100 ml non-ionic IV cont rast. All CT scans are performed using dose optimization technique as appropriate and may include automated exposure control or mA/KV adjustment according to patient size. FINDINGS: The lung bases are clear. The liver, spleen, pancreas, adrenal glands and kidneys are within normal limits. Small benign cysts are present both kidneys. No bowel obstruction, free air, free fluid or abscess. Nonvisualized appendix. Prominent aortoiliac atherosclerosis. No evidence of significant lymphadenopathy. Subacute fracture noted left inferior pubic ramus near the symphysis. IMPRESSION: No acute intra-abdominal or pelvic finding.
--- NOTE | 2022-10-13 13:03 | EDPHYS ---
Physician Documentation [facility] Name: Neela Staton Age: 77 yrs Sex: Female : 1945 Arrival Date: 10/13/2022 Time: 10:22 Bed 15 Private MD: James Linda C ED Physician Robin Dee HPI: 10/13 13:00 This 77 yrs old Female presents to ER via Wheelchair with complaints of Vomiting. jm 13:00 The patient presents to the emergency department with nausea, vomiting. Onset: The jm symptoms/episode began/occurred gradually, 1 week(s) ago. This is a 77-year-old female with history of atrial fibrillation, depression, GERD, hyperlipidemia, hypertension the presents emerged department with multiple episodes of vomiting and diarrhea over the past week. Patient does have some mild abdominal pain. Denies any recent antibiotic use. Was advised by Dr. Linda to go to the ED for further evaluation.. Historical: - Allergies: 10:55 Codeine; jl7 - Home Meds: 10:55 amiodarone 200 mg Oral tab once daily [Active]; amlodipine 5 mg oral tab once daily jl7 [Active]; aspirin 81 mg Oral cap once daily [Active]; BRILINTA 90 mg Oral tab 2 times per day [Active]; Cymbalta 60 mg Oral cpDR twice a day [Active]; Dulera 200-5 mcg/actuation inhalation HFAA 2 puffs 2 times per day [Active]; furosemide 40 mg Oral tab 2 times per day [Active]; levothyroxine 100 mcg cap once daily [Active]; lisinopril 20 mg Oral tab twice a day [Active]; magnesium oxide 400 mg magnesium Oral tab twice a day [Active]; midodrine 5 mg Oral tab 3 times per day [Active]; potassium chloride 20 mEq Oral TbER 2 times per day [Active]; sertraline 25 mg Oral tab once daily [Active]; Xanax 0.25 mg Oral tab nightly [Active]; Nexium Oral once daily [Active]; - PMHx: 10:55 Atrial fibrillation; Depression; GERD; High Cholesterol; Hypertensive disorder; jl7 Hypothyroidism; neuropathy; - Immunization history:: Client reports receiving the 2nd dose of the Covid vaccine. - Social history:: Smoking status: Patient denies any tobacco usage or history of. ROS: 13:00 Constitutional: Negative for fever, chills, and weight loss, Cardiovascular: Negative [facility] for chest pain, palpitations, and edema, Respiratory: Negative for shortness of breath, cough, wheezing, and pleuritic chest pain. 13:00 Abdomen/GI: Positive for abdominal pain, nausea and vomiting, diarrhea. 13:00 All other systems are negative. Exam: 13:00 Constitutional: This is a well developed, well nourished patient who is awake, alert, jmm and in no acute distress. Head/Face: atraumatic. Eyes: EOMI, no conjunctival erythema appreciated ENT: Moist Mucus Membranes Neck: Trachea midline, Supple Chest/axilla: Normal chest wall appearance and motion. Cardiovascular: Regular rate and rhythm. No edema appreciated Respiratory: Normal respirations, no respiratory distress appreciated 13:00 Back: Normal ROM Skin: General appearance color normal MS/ Extremity: Moves all extremities, no obvious deformities appreciated, no edema noted to the lower extremities Neuro: Awake and alert Psych: Behavior is normal, Mood is normal, Patient is cooperative and pleasant 13:00 Abdomen/GI: Inspection: abdomen appears normal, Bowel sounds: normal, Palpation: soft, mild abdominal tenderness, in the left lower quadrant. Vital Signs: 10:45 BP 156 / 73; Pulse 70; Resp 18; Pulse Ox 97% on R/A; db 10:53 BP 110 / 65; Pulse 84; Resp 17 S; Temp 97.4(O); Pulse Ox 99% on R/A; Weight 63.96 kg jl7 (R); Height 5 ft. 7 in. (170.18 cm); Pain 0/10; 13:27 BP 166 / 74; Pulse 73; Resp 18; Pulse Ox 97% on R/A; ld1 15:15 BP 197 / 87; Pulse 78; Resp 18; Pulse Ox 99% ; db 10:53 Body Mass Index 22.08 (63.96 kg, 170.18 cm) jl7 MDM: 10:51 Patient medically screened. [facility] 13:01 Data reviewed: vital signs, nurses notes. Consideration of Admission/Observation [facility] Patient was admitted/placed on observation. Management of patient was discussed with the following: Dr. Linda. I considered the following discharge prescriptions or medication management in the emergency department Medications were administered in the Emergency Department. See MAR. Historians other than the Patient: Daughter and . Counseling: I had a detailed discussion with the patient and/or guardian regarding: the historical points, exam findings, and any diagnostic results supporting the discharge/admit diagnosis, lab results, radiology results, the need for further work-up and treatment in the hospital. 10/13 10:52 Order name: CBC with Diff; Complete Time: 11:25 [facility] 10/13 10:52 Order name: CMP; Complete Time: 11:34 [facility] 10/13 10:52 Order name: Lipase; Complete Time: 11: [facility] 10/13 10:52 Order name: CDIFF [facility] 10/13 10:52 Order name: COVID-19/FLU A+B; Complete Time: 12: [facility] 10/13 12:57 Order name: Hepatitis Panel; Complete Time: 15: [facility] 10/13 10:52 Order name: CT Abd/Pelvis - IV Contrast Only; Complete Time: 12:34 [facility] 10/13 13:09 Order name: Basic Metabolic Panel [facility] 10/13 13:09 Order name: Basic Metabolic Panel [facility] 10/13 13:09 Order name: CBC with Automated Diff [facility] 10/13 13:09 Order name: CBC with Automated Diff [facility] 10/13 13:10 Order name: Clear Liquid [facility] 10/13 10:52 Order name: IV Saline Lock; Complete Time: 11: [facility] 10/13 10:52 Order name: Labs collected and sent; Complete Time: 11:09 [facility] Administered Medications: 11:08 Drug: Zofran (Ondansetron) 4 mg Route: IVP; Site: right antecubital; db 15:54 Follow up: Response: No adverse reaction db 11:08 Drug: Lactated Ringers Solution 1000 ml Route: IV; Rate: 250 ml/hr; Site: right db antecubital; 15:54 Follow up: Response: No adverse reaction; IV Status: Completed infusion; IV Intake: db 1000ml Disposition: 16:24 Co-signature as Attending Physician, Robin Dee MD I reviewed the patient's care rn provided by the Advanced Practice Provider and agree with the diagnosis and treatment plan. Disposition Summary: 10/13/22 13:02 Hospitalization Ordered Hospitalization Status: Observation [facility] Provider: James Linda Location: Telemetry/MedSurg (observation) jmm Condition: Stable jmm Problem: new jmm Symptoms: are unchanged jmm Bed/Room Type: Standard [facility] Room Assignment: 214(10/13/22 15:02) bd Diagnosis - Vomiting jmm - Dehydration jmm - Diarrhea, unspecified jmm Forms: - Medication Reconciliation Form jmm - SBAR form jmm Signatures: Dispatcher [employer] EDEden Diaz Joel, PA PA jmm Robin Dee MD MD rn Leal, Jahala, RN RN jl7 Vanita Castaneda RN RN db Corrections: (The following items were deleted from the chart) 10:57 10:55 PSHx: right leg stent; jl7 jl7 10:57 10:55 PSHx: heart stent; jl7 jl7 15:02 13:02 jmm bd
--- NOTE | 2022-10-13 13:03 | ER ---
Nurse's Notes [facility] Name: Neela Staton Age: 77 yrs Sex: Female : 1945 Arrival Date: 10/13/2022 Time: 10:22 Bed 15 Private MD: James Linda C Diagnosis: Vomiting;Dehydration;Diarrhea, unspecified Presentation: 10/13 10:53 Chief complaint: Patient states: N/V/D x 1 week. Coronavirus screen: Vaccine status: jl7 Patient reports receiving the 2nd dose of the covid vaccine. diarrhea, nausea, vomiting. Client presents with at least one sign or symptom that may indicate coronavirus-19. Ebola Screen: No symptoms or risks identified at this time. Initial Sepsis Screen: Does the patient meet any 2 criteria? No. Patient's initial sepsis screen is negative. Does the patient have a suspected source of infection? No. Patient's initial sepsis screen is negative. Risk Assessment: Do you want to hurt yourself or someone else? Patient reports no desire to harm self or others. Onset of symptoms was October 06, 2022. 10:53 Method Of Arrival: Wheelchair [facility] 10:53 Acuity: BETHANY 3 jl7 Triage Assessment: 10:55 General: Appears in no apparent distress. uncomfortable, Behavior is calm, cooperative, jl7 appropriate for age. Pain: Denies pain. GI: Reports diarrhea, nausea, vomiting. Historical: - Allergies: 10:55 Codeine; jl7 - Home Meds: 10:55 amiodarone 200 mg Oral tab once daily [Active]; amlodipine 5 mg oral tab once daily jl7 [Active]; aspirin 81 mg Oral cap once daily [Active]; BRILINTA 90 mg Oral tab 2 times per day [Active]; Cymbalta 60 mg Oral cpDR twice a day [Active]; Dulera 200-5 mcg/actuation inhalation HFAA 2 puffs 2 times per day [Active]; furosemide 40 mg Oral tab 2 times per day [Active]; levothyroxine 100 mcg cap once daily [Active]; lisinopril 20 mg Oral tab twice a day [Active]; magnesium oxide 400 mg magnesium Oral tab twice a day [Active]; midodrine 5 mg Oral tab 3 times per day [Active]; potassium chloride 20 mEq Oral TbER 2 times per day [Active]; sertraline 25 mg Oral tab once daily [Active]; Xanax 0.25 mg Oral tab nightly [Active]; Nexium Oral once daily [Active]; - PMHx: 10:55 Atrial fibrillation; Depression; GERD; High Cholesterol; Hypertensive disorder; jl7 Hypothyroidism; neuropathy; - Immunization history:: Client reports receiving the 2nd dose of the Covid vaccine. - Social history:: Smoking status: Patient denies any tobacco usage or history of. Screenin:22 [facility] ED Fall Risk Assessment (Adult) History of falling in the last 3 months, db including since admission No falls in past 3 months (0 pts) Confusion or Disorientation No (0 pts) Intoxicated or Sedated No (0 pts) Impaired Gait No (0 pts) Mobility Assist Device Used No (0 pt) Altered Elimination No (0 pt) Score/Fall Risk Level 0 - 2 = Low Risk Oriented to surroundings, Maintained a safe environment. Abuse screen: Denies threats or abuse. Denies injuries from another. Nutritional screening: No deficits noted. Tuberculosis screening: No symptoms or risk factors identified. Assessment: 11:21 Reassessment: Patient appears in no apparent distress at this time. Patient and/or db family updated on plan of care and expected duration. Pain level reassessed. Patient is alert, oriented x 3, equal unlabored respirations, skin warm/dry/pink. vomiting and diarrhea. General: Appears in no apparent distress. comfortable, Behavior is calm, cooperative. Neuro: Level of Consciousness is awake, alert, obeys commands, Oriented to person, place, time, situation. Respiratory: Airway is patent Respiratory effort is even, unlabored, Respiratory pattern is regular, symmetrical. GI: Abdomen is flat, non-distended. GI: Reports diarrhea, nausea, vomiting. 11:53 Reassessment: patient in CT. db 13:00 Reassessment: Patient appears in no apparent distress at this time. No changes from db previously documented assessment. Patient and/or family updated on plan of care and expected duration. Pain level reassessed. Patient is alert, oriented x 3, equal unlabored respirations, skin warm/dry/pink. 14:00 Reassessment: Patient appears in no apparent distress at this time. No changes from db previously documented assessment. Patient and/or family updated on plan of care and expected duration. Pain level reassessed. Patient is alert, oriented x 3, equal unlabored respirations, skin warm/dry/pink. 15:53 Reassessment: Patient appears in no apparent distress at this time. No changes from db previously documented assessment. Patient and/or family updated on plan of care and expected duration. Pain level reassessed. Patient is alert, oriented x 3, equal unlabored respirations, skin warm/dry/pink. family with patient going up to 2nd floor for admission. Vital Signs: 10:45 BP 156 / 73; Pulse 70; Resp 18; Pulse Ox 97% on R/A; db 10:53 BP 110 / 65; Pulse 84; Resp 17 S; Temp 97.4(O); Pulse Ox 99% on R/A; Weight 63.96 kg jl7 (R); Height 5 ft. 7 in. (170.18 cm); Pain 0/10; 13:27 BP 166 / 74; Pulse 73; Resp 18; Pulse Ox 97% on R/A; ld1 15:15 BP 197 / 87; Pulse 78; Resp 18; Pulse Ox 99% ; db 10:53 Body Mass Index 22.08 (63.96 kg, 170.18 cm) jl7 ED Course: 10:22 Patient arrived in ED. as 10:23 James Linda MD is Private Physician. as 10:28 [facility] 10:28 Robin Dee MD is Attending Physician. [facility] 10:55 Triage completed. jl7 10:55 Arm band placed on right wrist. 7 10:56 Vanita Castaneda, RN is Primary Nurse. db 11:09 CBC with Diff Sent. em1 11:09 CMP Sent. em1 11:09 Lipase Sent. em1 11:09 COVID-19/FLU A+B Sent. em1 11:10 Initial lab(s) drawn, by ut, sent to lab. Inserted saline lock: 20 gauge in right em1 antecubital area, using aseptic technique. Blood collected. 11:20 Patient has correct armband on for positive identification. Bed in low position. Call db light in reach. Side rails up X2. Pulse ox on. NIBP on. Warm blanket given. 11:53 CT Abd/Pelvis - IV Contrast Only In Process Unspecified. EDMS 13:02 James Linda MD is Hospitalizing Provider. [facility] 15:44 No provider procedures requiring assistance completed. Patient admitted, IV remains in ld1 place. 15:52 Report given to 2nd floor RN by SUHAIL Vanegas. db Administered Medications: 11:08 Drug: Zofran (Ondansetron) 4 mg Route: IVP; Site: right antecubital; db 15:54 Follow up: Response: No adverse reaction db 11:08 Drug: Lactated Ringers Solution 1000 ml Route: IV; Rate: 250 ml/hr; Site: right db antecubital; 15:54 Follow up: Response: No adverse reaction; IV Status: Completed infusion; IV Intake: db 1000ml Medication: 15:44 VIS not applicable for this client. ld1 Intake: 15:54 IV: 1000ml; Total: 1000ml. db Outcome: 13:02 Decision to Hospitalize by Provider. [facility] 15:44 Admitted to Med/surg room 214, with chart, Report called to SUHAIL Joy ld1 15:44 Condition: stable 15:44 Instructed on the need for admit. 15:58 Patient left the ED. db Signatures: Dispatcher [employer] EDMS Juan Louie PA PA jmm Martinez, Amelia as Martinez, Eric em1 Laura Mohan RN RN jl7 Romina Lay, SUHAIL RN ld1 Vanita Castaneda, SUHAIL RN db Corrections: (The following items were deleted from the chart) 10:57 10:55 PSHx: right leg stent; jl7 jl7 10:57 10:55 PSHx: heart stent; jl7 jl7
[2022-10-13] MEDS ORDERED: ONDANSETRON 4 MG/2 ML VIAL IV PRN (13:05)
[2022-10-13] MEDS ORDERED: ACETAMINOPHEN 500 MG TAB PO PRN (13:05)
[2022-10-13] MEDS ORDERED: LOPERAMIDE HCL 2 MG CAPSULE PO PRN (13:05)
[2022-10-13 14:57] LABS: Hepatitis B Core IgM Nonreactive (Nonreactive); Hepatitis B surface AG Interp. Nonreactive (Nonreactive); Hepatitis C Virus Ab Nonreactive (Nonreactive)
[2022-10-13] MEDS ORDERED: POTASSIUM 25 MEQ EFFERV TAB PO ONE (16:12)
[2022-10-13 16:25] VITALS: BMI 22.1
[2022-10-13] MEDS: NA CHLORIDE 0.9% 1,000 ML IV SCH (17:04)
[2022-10-13] MEDS: TICAGRELOR 90 MG TABLET PO SCH (21:59)
[2022-10-13] MEDS: ALPRAZOLAM 0.25 MG TABLET PO PRN (21:59)
[2022-10-14] MEDS ORDERED: AMLODIPINE 5 MG TAB PO ONE (02:56)
[2022-10-14] MEDS: HYDROCODONE/APAP 5/325 MG TAB PO PRN ×3 (03:08→21:16)
[2022-10-14] MEDS: NA CHLORIDE 0.9% 1,000 ML IV SCH ×2 (05:35→21:15)
[2022-10-14 05:42] LABS: Hematocrit 29.5 % (36.0-45.0); Lymphocytes % 10.3 % (15.3-44.8); MCV 72.4 fL (80-100); MPV 7.2 fL (7.6-11.3); RBC Red Blood Cell Count 4.08 M/uL (3.86-4.86)
[2022-10-14 05:59] LABS: Potassium 3.4 mmol/L (3.5-5.1)
[2022-10-14] MEDS: MIDODRINE HCL 5 MG TABLET PO SCH ×3 (07:00→16:43)
[2022-10-14] MEDS: FUROSEMIDE 40 MG TABLET PO SCH ×2 (08:22→21:17)
[2022-10-14] MEDS: TICAGRELOR 90 MG TABLET PO SCH ×2 (08:22→21:16)
[2022-10-14] MEDS: ASPIRIN 81 MG CHEWABLE TABLET PO SCH (08:23)
[2022-10-14] MEDS: DULOXETINE 30 MG CAP PO SCH ×2 (08:23→21:15)
[2022-10-14] MEDS: lisinopriL 20 MG TAB PO SCH ×2 (08:24→21:20)
[2022-10-14] MEDS: MAGNESIUM OXIDE 400 MG TAB PO SCH ×2 (08:24→21:20)
[2022-10-14] MEDS: SERTRALINE HCL 50 MG TAB PO SCH (08:24)
[2022-10-14] MEDS: AMLODIPINE 10 MG TAB PO SCH (08:24)
[2022-10-14] MEDS: POTASSIUM CL SA 10 MEQ TAB PO SCH ×3 (08:24→21:19)
[2022-10-14] MEDS: DULERA 200/5 (MOMETASONE/FORMOTEROL) INHALER IH SCH ×2 (08:25→21:00)
[2022-10-14] MEDS: LEVOTHYROXINE SOD 0.1 MG TAB PO SCH (08:25)
--- NOTE | 2022-10-14 08:50 | HP ---
Date of Admission: 10/13/2022 Chief Complaint: Nausea, vomiting, and diarrhea. History Of Present Illness: This is a 77-year-old female patient, who came into emergency room with few days history of nausea, vomiting, and diarrhea. The patient reports that every time she eats or drinks anything she ends up having vomiting and diarrhea. Has some abdominal cramps with this, but n o abdominal pain. No fever. No chills. No blood in vomiting and no blood in stool. After she call ed office today, she was advised to come to emergency room as she was not able to keep any food or li quids down into her stomach and after she was evaluated in the ER, she was admitted to the hospital. Physical Examination: Vital Signs: Temperature 97.4, pulse 82, respiratory rate 18, blood pressure 160/86, oxygen saturati on 94% on room air. Height 5 feet 7 inches, weight 141 pounds. General: Awake, alert, oriented, not in distress. HEENT: Head atraumatic, normocephalic. Conjunctivae nonerythematous. Sclerae white. Mouth, no thr ush or edema noted. Ears/Nose, no mass, lesion, discharge noted. Neck: Supple. No JVD, lymph nodes, bruit, thyromegaly noted. Lungs: Bilateral good equal air entry. Clear to auscultation. No rhonchi. No rales. Heart: Normal heart sounds, no murmur or gallop. Abdomen: Soft, bowel sounds normal. No guarding, rigidity, tenderness, mass, hepatosplenomegaly, dis tention, or bruit noted. Extremities: No leg edema. No calf tenderness. Skin: No rash, ulcer, cellulitis. Lymphatics: No lymph node enlargement in neck, supraclavicular, infraclavicular region. Neuro: No focal neurological deficit. Chest: Unremarkable. External Genitalia: Deferred. Rectal: Deferred. Laboratory Data: WBC count 11.4, hemoglobin 10.7, platelets 639. Sodium 136, potassium 3.1, chlorid e 100, bicarb 29, BUN 22, creatinine 1.15, glucose 129. AST 149, ALT 130, alkaline phosphatase 210, total bilirubin 0.4, lipase 182. CAT scan of abdomen and pelvis done in the emergency room shows luda ateral renal cysts and aortic atherosclerosis. No acute intraabdominal findings. Impression: 1.Nausea with vomiting. 2.Diarrhea. 3.Abnormal liver function tests. 4.Anemia. 5.Coronary artery disease. 6.Hypertension. 7.Hypothyroidism. 8.Chronic obstructive pulmonary disease. 9.Hyperlipidemia. 10.Paroxysmal atrial fibrillation. 11.Peripheral vascular disease. 12.Aortic atherosclerosis. 13.Bilateral renal cysts. 14.Gastroesophageal reflux disease. 15.Osteoarthritis, multiple sites. 16.Anxiety. Plan: We will go ahead and admit the patient to hospital for further evaluation and management of th is problem. The patient is appropriate for observation. Her nausea, vomiting, and diarrhea appears small acute gastroenteritis type of picture, but at the same time, nausea and vomiting, we have to ke ep in mind about possibility of acute hepatitis contributing to this such problem also. Her liver fu nction tests actually have improved compared to 3 weeks ago when she was in the hospital. During her last hospital stay, we decided to discharge her to go home with instruction to stop atorvastatin and amiodarone and today when I was talking to her, she could not tell me if she is taking those medicat ions or not. These medications do appear on her home medication list, but at the same time, I am not 100% sure if this medication list is accurate or not, so we will have to communicate with her daught er because at the time of last hospital discharge, I did call the patient's daughter and gave her ins tructions to discontinue those 2 medications. I suspect her abnormal liver function tests could be v giovanni well due to amiodarone. The patient was advised to follow up at my office a week after she was d ischarged from last hospital stay, but she never came back to office for followup visit. We will go ahead and keep her in the hospital overnight, monitor her blood work, replace her potassium. For hyp ertension, we will continue her antihypertensive medication. For coronary artery disease and periphe ral vascular disease, we will continue her anti-platelet therapy per order. We will continue her lev othyroxine for her hypothyroidism. Details and plan of treatment discussed with the patient. I will see her tomorrow morning for followup and we will repeat blood work tomorrow morning. LUIS/MODL Voice ID: [id number]
[2022-10-14] MEDS ORDERED: PANTOPRAZOLE 40MG TABLET PO SCH (21:00)
[2022-10-14] MEDS ORDERED: ATORVASTATIN 40 MG TAB PO SCH (21:00)
[2022-10-14] MEDS: ALPRAZOLAM 0.25 MG TABLET PO PRN (21:19)
[2022-10-14 23:08] VITALS: O2SAT 95
[2022-10-15] MEDS: MIDODRINE HCL 5 MG TABLET PO SCH (07:00)
[2022-10-15] MEDS: NA CHLORIDE 0.9% 1,000 ML IV SCH (08:54)
[2022-10-15] MEDS: MAGNESIUM OXIDE 400 MG TAB PO SCH (09:00)
[2022-10-15] MEDS: DULERA 200/5 (MOMETASONE/FORMOTEROL) INHALER IH SCH (09:00)
[2022-10-15 10:01] VITALS: BP 153/71; TEMP 98.5
[2022-10-15] MEDS: POTASSIUM CL SA 10 MEQ TAB PO SCH (10:05)
[2022-10-15] MEDS: LEVOTHYROXINE SOD 0.1 MG TAB PO SCH (10:06)
[2022-10-15] MEDS: DULOXETINE 30 MG CAP PO SCH (10:06)
[2022-10-15] MEDS: SERTRALINE HCL 50 MG TAB PO SCH (10:06)
[2022-10-15] MEDS: lisinopriL 20 MG TAB PO SCH (10:06)
[2022-10-15] MEDS: AMLODIPINE 10 MG TAB PO SCH (10:07)
[2022-10-15] MEDS: FUROSEMIDE 40 MG TABLET PO SCH (10:07)
[2022-10-15] MEDS: ASPIRIN 81 MG CHEWABLE TABLET PO SCH (10:08)
[2022-10-15] MEDS: TICAGRELOR 90 MG TABLET PO SCH (10:08)
--- NOTE | 2022-10-15 10:47 | PN ---
Date of Progress Note: 10/14/2022 Subjective: Patient was seen this morning for followup. No new complaints or problems reported by h er. No vomiting or diarrhea overnight. She was on clear liquid diet, feels hungry for regular meal. Denies any abdominal pain this morning. Objective: Vital Signs: Reviewed. HEENT: Unremarkable. Lungs: Clear to auscultation. Heart: Sounds normal. Abdomen: Soft. Bowel sounds normal. No guarding, rigidity, tenderness, distention. Extremities: No leg edema. Laboratory Data: White count 9.3, hemoglobin 9.4, platelets 495. Sodium 138, potassium 3.4, chlorid e 103, bicarb 26, BUN 13, creatinine 0.90, glucose 138. Impression: 1.Nausea with vomiting. 2.Diarrhea. 3.Acute hepatitis. 4.Hypertension. 5.Peripheral vascular disease. Plan: We will go ahead and advance her diet to 2 g sodium diet. We will continue current symptomati c treatment for nausea, vomiting. Continue home medications per order for hypertension as well as or thostatic hypotension. She takes midodrine, which will be continued as well. We will not give any amiodarone and depending on how she tolerates her diet, we will decide further plan of treatment for her. LUIS/MODL Voice ID: [id number] Report ID: [id number]
--- NOTE | 2022-10-16 01:50 | DS ---
Date of Discharge: 10/15/2022 Disposition: Discharged to go home. Physical Examination: HEENT: Unremarkable. Lungs: Clear to auscultation. No wheezing. No rales. Heart: Sounds normal. Abdomen: Soft. Bowel sounds normal. No guarding, rigidity, tenderness, or distention. Extremities: No leg edema. Discharge Medications/instructions: 1.Continue all prior home medications except following changes: a.Do not take any amiodarone. b.Do not take any atorvastatin. 2.Follow up at my office next week. 3.Follow up with well puller head in 1 to 2 weeks to discuss different treatment options including tyree belle. Hospital Course: A 77-year-old pleasant female patient came into emergency room with complaints of n ausea, vomiting, diarrhea. Please see dictated H and P for more information. The patient was rose jalloh in the ER, she was admitted to the hospital. Initially, she advanced her diet to regular diet. Since her hospital admission, she has not had any episode of vomiting or diarrhea. Denies any abdomi nal pain. Overall, her condition has remained stable and today she was discharged to go home in stab le condition. Her hepatitis profile came back negative. I suspect that abnormal liver function test was noted is likely due to side effect from amiodarone. I have advised her to discontinue both of t hese medications. The patient was discharged to go home in stable condition with above-mentioned med ications and instructions. Final Diagnoses: 1.Nausea with vomiting. 2.Diarrhea. 3.Abnormal liver function tests. 4.Anemia, unspecified. LUIS/MODL Voice ID: [id number] Report ID: [id number]
== END 2022-10-15 10:57 | disposition home or self-care (01) ==
LOC: ER 10:20 → ERHOLD 13:04 → 2ND 15:44
PROVIDERS: ADMIT Internal Medicine; ATTEND Internal Medicine
DX: R11.2 Nausea with vomiting, unspecified (principal); R19.7 Diarrhea, unspecified; B17.9 Acute viral hepatitis, unspecified; D64.9 Anemia, unspecified; R79.89 Other specified abnormal findings of blood chemistry; I25.10 Atherosclerotic heart disease of native coronary artery without angina pectoris; I10 Essential (primary) hypertension; E03.9 Hypothyroidism, unspecified; J44.9 Chronic obstructive pulmonary disease, unspecified; E78.5 Hyperlipidemia, unspecified; I48.0 Paroxysmal atrial fibrillation; I73.9 Peripheral vascular disease, unspecified; I70.0 Atherosclerosis of aorta; N28.1 Cyst of kidney, acquired; K21.9 Gastro-esophageal reflux disease without esophagitis; M19.90 Unspecified osteoarthritis, unspecified site; F41.9 Anxiety disorder, unspecified; Z20.822 Contact with and (suspected) exposure to COVID-19
CPT/HCPCS: 96361; 85025 ×2; 80048; 36415; 83690; 80053; 0240U; 80074; 74177; 96374; 99285; J3535; J7120; J7030 ×3; J2405 ×2; G0378

== ENCOUNTER 2022-12-02 18:27 | Inpatient (IN) | payer OTHER ==
--- OUTSIDE RECORDS SUMMARY | 2022-12-02 18:39 | XMS REPORT | Continuity of Care Document ---
:1945 Author Organization [facility] t Address [address] [facility] [address] [place] [address] Care Team Providers Name Role Phone Asked, No Pcp Primary Care Physician Unavailable [id number] Attending Clinician Unavailable ARASH CONNELL Attending Clinician Unavailable ARASH CONNELL Attending Clinician Unavailable Minesh Gallegos Attending Clinician RICHIE MARTIN Attending Clinician Unavailable Soha Montelongo Attending Clinician Ortiz Domingo Attending Clinician Unavailable Kenny Medley Attending Clinician Unavailable Severo Coleman Attending Clinician Darius Ybarra Attending Clinician Arash Connell Attending Clinician Sasha Valenzuela Attending Clinician LAKSHMI VELEZ Attending Clinician Unavailable [id number] Admitting Clinician Unavailable ARASH CONNELL Admitting Clinician Unavailable Jayy Linda Admitting Clinician Unavailable Ortiz Domingo Admitting Clinician Unavailable Reza Rojo Admitting Clinician Sasha Valenzuela Admitting Clinician Arash Connell Admitting Clinician AllenJanyn [email or web address] Terell Admitting Clinician [phone] Payers Payer Name Policy Type Policy Number Effective Date Expiration Date S ource AETM AETM [id number] [employer]ET[employer] MEDICARE [id number] 2020 2024 PPO 00:00:00 00:00:00 Problems Condition Condition Condition Status Onset Resolution Last Treating Co mments Source Name Details Category Date Date Treatment Clinician Date UNK UNK Diagnosis Active 2022-04-10 Mem oria Active 03-05 10:25:00 l 03/05/2022 00:00: Luis mckeon 00 [facility] OCCLUDED OCCLUDED Diagnosis Active 2021-12-04 Memoria RIGHT RIGHT 11-07 21:46:00 l FEMORAL FEMORAL 00:00: Obie ARTERY S/P ARTERY S/P 00 PROCED PROCED Active 11/07/2021 [facility] Post-opera Post-opera Disease Active U T tive state tive state 10-15 He alth 00:00: 00 AFIB AFIB Diagnosis Active 2021-09-29 Mem oria Active 09-27 11:55:00 l 09/27/2021 00:00: Luis mckeon MH 00 [facility] CHEST PAIN CHEST Diagnosis Active 2021-09-27 Memoria PAIN 09-27 19:49:00 l Active 00:00: Obie 09/27/2021 00 [facility] DISORDER DISORDER Diagnosis Active 2021-11-07 Memoria OF OF 09-24 21:47:00 l ARTERIES ARTERIES 00:00: Luis mckeon Active 00 09/24/2021 [facility] 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 U T [...] due to 00 atheroscle atheroscle rosis rosis Unspecifie Unspecifi Problem 2021-10-02 Memoria d atrial ed atrial 22:42:05 l fibrillati fibrillati He rmann on on 10/02/2021 [facility] Embolism Embolism Problem 2021-11-13 Memoria and and 22:44:38 l 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 of of arteries arteries of the of the lower lower extremitie extremitie s s 11/13/2021 [facility] Atrial Atrial Problem Resolve 2022-05-26 Mem oria fibrillati fibrillati d 03:23:33 l on on Obie (disorder) (disorder) Resolved Problem 05/26/2022 [facility] Deep Deep Problem Resolve 2022-05-26 Eric oracio venous venous d 03:23:33 l 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 (disorder) (disorder) Resolved Problem 05/26/2022 [facility] Transient Transient Problem Resolve 2022-05-26 Memoria ischemic ischemic d 03:23:33 l attack attack Obie (disorder) (disorder) Resolved Problem 05/26/2022 [facility] Chronic Chronic Problem Active 2022-07-26 M emoria atrial atrial 00:02:46 l fibrillati fibrillati He rmann on on (disorder) (disorder) Active Problem 07/26/2022 [facility] Chronic Chronic Problem Active 2022-07-26 M emoria 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:02:46 l heart heart [place] failure failure (disorder) (disorder) Active Problem 07/26/2022 [facility] Congestive Problem Active 2022-07-26 M emoria heart Congestive 00:02:46 l failure heart Obie (disorder) failure (disorder) Active Problem 07/26/2022 controlled with medication [facility] Dyslipidem Dyslipide Problem Active 2022-07-26 Memoria ia el 00:02:46 l (disorder) (disorder) He rmann Active Problem 07/26/2022 [facility] Gastroesop Gastroeso Problem Active 2022-07-26 Memoria hageal phageal 00:02:46 l reflux reflux Obie disease disease (disorder) (disorder) Active Problem 07/26/2022 controlled with medication [facility] 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-26 Memoria - Deep of - Deep 00:02:46 l Vein Vein Obie Thrombosis Thrombosis (context-d (context-d ependent ependent category) category) Active Problem 07/26/2022 [facility] 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 ) (situation ) Active Problem 07/26/2022 [facility] Hyperlipid Hyperlipi Problem Active 2022-07-26 Memoria emia demia 00:02:46 l (disorder) (disorder) He rmann Active Problem 07/26/2022 controlled with medication [facility] Hypertensi Hypertens Problem Active 2022-07-26 Memoria ve kayley 00:02:46 l disorder, disorder, Herm juan m systemic systemic arterial arterial (disorder) (disorder) Active Problem 07/26/2022 controlled with medication [facility] Hypothyroi Problem Active 2022-07-26 M emoria dism Hypothyroi 00:02:46 l (disorder) dism Luis n (disorder) Active Problem 07/26/2022 [facility] Long-term Problem Active 2022-07-26 Me moria current Long-term 00:02:46 l use of current [place] anticoagul use of ant anticoagul (situation ant ) (situation ) Active Problem 07/26/2022 [facility] Myoclonus Myoclonus Problem Active 2022-07-26 Memoria (finding) (finding) 00:02:46 l Active Obie Problem 07/26/2022 [facility] Peripheral Periphera Problem Active 2022-07-26 Memoria nerve l nerve 00:02:46 l disease disease Obie (disorder) (disorder) Active Problem 07/26/2022 [facility] Peripheral Periphera Problem Active 2022-07-26 Memoria vascular l vascular 00:02:46 l disease disease Obie (disorder) (disorder) Active Problem 07/26/2022 [facility] Benign Benign Problem Active 2021-11-07 Eric oracio essential essential 01:53:16 l hypertensi hypertensi He rmann on on (disorder) (disorder) Active Problem 11/07/2021 [facility] Chronic Problem Active 2021-11-07 Me moria congestive congestive 01:53:16 l heart heart Obie failure failure (disorder) (disorder) Active Problem 11/07/2021 [facility] Constipati Constipat Problem Active 2021-11-07 Memoria on ion 01:53:16 l (disorder) (disorder) He rmann Active Problem 11/07/2021 Medical Group 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:53:16 l lymphoma lymphoma Luis n (disorder) (disorder) Active Problem 11/07/2021 [facility] 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-07 Memoria bladder e bladder 01:53:16 l Active [place] Problem 11/07/2021 [facility] Retention Retention Problem Active 2021-11-07 Memoria of urine of urine 01:53:16 l (disorder) (disorder) He rmann Active Problem 11/07/2021 Medical Group UNSPECIFIE UNSPECIFI Diagnosis Active 2021-09-29 Memoria D ATRIAL ED ATRIAL 11:55:00 l FIBRILLATI FIBRILLATI He rmann ON ON Active [facility] DISORDER DISORDER Diagnosis Active 2021-11-07 Memoria OF OF 21:47:00 l ARTERIES ARTERIES Luis n AND AND ARTERIOLES ARTERIOLES , UNS , UNS Active [facility] DISORDER DISORDER Diagnosis Active 2021-10-21 Memoria OF OF 11:49:00 l ARTERIES ARTERIES Luis n AND AND ARTERIOLES ARTERIOLES , , UNSPECIFIE UNSPECIFIE D D Active [facility] EMBOLISM EMBOLISM Diagnosis Active 2021-12-04 Memoria AND AND 21:46:00 l THROMBOSIS THROMBOSIS He rmann OF OF ARTERIES ARTERIES OF T OF T Active [facility] EMBOLISM EMBOLISM Diagnosis Active 2021-11-11 Memoria AND AND 13:16:00 l THROMBOSIS THROMBOSIS He rmann OF OF ARTERIES ARTERIES OF THE OF THE LOWER LOWER EXTRE EXTRE Active [facility] History of Past Illness Condition Condition Condition Status Onset Resolution Last Treating Co mments Source Name Details Category Date Date Treatment Clinician Date Acute Acute Problem 2021-10-25 2021-10-25 M emoria posthemorr posthemorr 10-14 00:00:43 00:00:43 l hagic hagic 18:05: Obie anemia anemia 13 10/14/2021 10/25/2021 [facility] Allergies, Adverse Reactions, Alerts Allergy Allergy Status Severity Reaction(s) Onset Inactive Treating Comm ents Source Name Type Date Date Clinician Codeine Propensi Active GI 2021-09 " It Methodi ty to Intolerance 0-[address] adverse 00:00: [facility]atal [facility] reaction 00 hernia" l s to drug No Known DA Active [facility] Allergie 3-07 Clear s 00:00: Sampson 00 [facility] codeine DA Active [place] [facility] HIATAL 3-07 Clear HERNIA 00:00: Sampson 00 [facility] codeine codeine Active Memoria sulfate sulfate l [place] Social History Social Habit Start Date Stop Date Quantity Comments Source Social History 2021-10-03 2021-10-03 [facility] william 16:23:14 16:23:14 Tobacco use and 2021-06-28 2021-06-28 Smokeless tobacco [facility] exposure 00:00:00 00:00:00 non-user Sex Ass[birth year] Religious 00:00:00 00:00:00 Hospital Smoking Status Start Date Stop Date Source Tobacco smoking consumption [facility] unknown Tobacco smoking status 2022-05-23 18:21:06 2022-05-23 18:21:06 Luis Ragland Smokes tobacco daily 2021-06-28 00:[facility] Medications Ordered Filled Start Stop Current Ordering Indication Dosage Frequency Signature Comments Components Source Medication Medication Date Date Medication? Clinician (SIG) Name Name Lyrica 100 Yes 100 mg = 1 M emoria mg oral 9-09 cap, PO, l capsule 18:59: BID, # 60 Maribel nn 00 cap, 2 Refill(s), Pharmacy: [facility][id number], 167.64, cm, 05/23/22 13:34:00 CDT, Height, 74.545, kg, 05/23/22 13:34:00 CDT, Weight Lyrica 75 2021-0 No 75 mg = 1 Mem oria mg oral 8-02 cap, PO, l capsule 16:56: BID, # 60 Maribel nn 00 cap, 1 Refill(s), Pharmacy: [facility] #[id number], 165.1, cm, 04/10/22 8:31:00 CDT, Height, 73.239, kg, 04/10/22 8:31:00 CDT, Weight Lyrica 75 0 No 75 mg = 1 Mem oria mg oral 7-29 cap, PO, l capsule 22:23: BID, X 30 Maribel nn 00 day, # 60 cap, 1 Refill(s), Pharmacy: [facility] #[id number], 165.1, cm, 04/10/22 8:31:00 CDT, Height, 73.239, kg, 04/10/22 8:31:00 CDT, Weight gabapentin 2021-0 No 200 mg = 2 M emoria 100 mg oral 7-28 cap, PO, l capsule 14:15: BID, # 120 Herm juan m 00 cap, 3 Refill(s), Pharmacy: [facility] #[id number], 165.1, cm, 04/10/22 8:31:00 CDT, Height, 73.239, kg, 04/10/22 8:31:00 CDT, Weight lisinopril 0 Yes TAKE 1 Memor ia 20 mg oral 6-27 TABLET BY l tablet 16:31: MOUTH [place] 00 TWICE DAILY amLODIPine 0 Yes TAKE 1 Memor ia 10 mg oral 6-27 TABLET BY l tablet 16:31: MOUTH [place] 00 DAILY IN THE MORNING Brilinta Yes TAKE ONE Memor ia (ticagrelor 6-27 (1) l ) 90 mg 16:31: TABLET(S) Maribel nn oral tablet 00 BY MOUTH TWICE A DAY. magnesium Yes 400 mg = 1 Me moria oxide 400 6-27 tab, PO, l mg oral 16:31: Daily, 0 Luis n tablet 00 Refill(s) gabapentin Yes TAKE 1 Memor ia 100 mg oral 6-27 CAPSULE BY l capsule 16:31: MOUTH Obie 00 TWICE DAILY acetaminoph Yes [id number] 1{tbl} Take 1 [facility] en-codeine 5-02 tablet by Heal [facility] (TYLENOL/CO 00:00: mouth DEINE #3) 00 every 4 300-30 MG (four) tablet hours if needed for severe pain. naloxone 2022- No [id number] .4mg Administer [facility] (Narcan) 2 11-18-08 0.4 mL Health MG/2ML 00:00: 05:59 (0.4 mg injection 00 :00 total) into affected nostril(s) if needed for opioid reversal. May repeat every 2-3 minutes as needed until medical assistance available. naloxone 2022- No [id number] .4mg Administer [facility] (Narcan) 2 11-18- 0.4 mL Health MG/2ML 00:00: 05:59 (0.4 mg injection 00 :00 total) into affected nostril(s) if needed for opioid reversal. May repeat every 2-3 minutes as needed until medical assistance available. naloxone 2022- No [id number] .4mg Administer [facility] (Narcan) 2 11-18- 0.4 mL Health MG/2ML 00:00: 05:59 (0.4 mg injection 00 :00 total) into affected nostril(s) if needed for opioid reversal. May repeat every 2-3 minutes as needed until medical assistance available. naloxone 2022- No [id number] .4mg Administer [facility] (Narcan) 2 11-18-08 0.4 mL Health MG/2ML 00:00: 05:59 (0.4 mg injection 00 :00 total) into affected nostril(s) if needed for opioid reversal. May repeat every 2-3 minutes as needed until medical assistance available. traMADol 2021- No [id number] 50mg Take 1 [facility] (Ultram) 50 3-07 03-13 tablet (50 H ealth MG tablet 00:00: 05:59 mg total) 00 :00 by mouth every 8 (eight) hours if needed for severe pain for up to 5 days. Eliquis No Notes: Memoria 2-28 Same as: l 15:00: Eliquis [place] 00 Coreg 25 mg Yes 25 mg = 1 M emoria oral tablet 2-28 tab, PO, l 13:05: BID, # 60 Obie 00 tab, 0 Refill(s), Pharmacy: [facility] #[id number], 170.18, cm, 11/08/21 4:09:00 IRRADIATED F[employer]EL HANDLER, Height, 75.318, kg, 11/08/21 0:40:00 [employer]RADI[employer]ER, Weight carvedilol Yes 25 mg = 1 Me moria 25 MG Oral 2-28 tab, PO, l Tablet 13:05: BID, # 60 Luis n [Coreg] 00 tab, 0 Refill(s), Pharmacy: [facility] #[id number], 170.18, cm, 11/08/21 4:09:00 IRRADIATED F[employer]EL HANDLER, Height, 75.318, kg, 11/08/21 0:40:00 IRRADIATED F[employer]EL HANDLER, Weight atorvastati Yes 40 mg = 1 M emoria n 40 mg 2-28 tab, PO, l oral tablet 13:04: Bedtime, # [place] 00 30 tab, 0 Refill(s), Pharmacy: [facility] #[id number], 170.18, cm, 11/08/21 4:09:00 IRRADIATED F[employer]EL HANDLER, Height, 75.318, kg, 11/08/21 0:40:00 IRRADIATED F[employer]EL HANDLER, Weight doxycycline Yes 100 mg = 2 Memoria hyclate 50 2-28 cap, PO, l MG Oral 13:04: [id number], X Herm juan m Capsule 00 7 day, # 28 cap, 0 Refill(s), Pharmacy: [facility] #[id number], 170.18, cm, 11/08/21 4:09:00 IRRADIATED FUEL HANDLER, Height, 75.318, kg, 11/08/21 0:40:00 IRRADIATED F[employer]EL HANDLER, Weight Magnesium No Notes: Memori a Sulfate 2-28 WASTE: F/P l 13:01: - Sink; E Obie 00 - Municipal Trash Bin Potassium No Notes: Memori a Chloride -27 (Same as: l 18:53: K-Dur 20) Obie 00 "Do Not Crush" Give with food and full glass of water For patients unable to swallow tablet, dissolve in one half glass of water. Allow about 2 minutes for the tablets to disintegra te. Stir before giving to prepare slurry and administer . Please exclude Patient s with feeding tube less than 14 American (Dobhoff, J-tube etc) and pediatric and patients. Protonix No Notes: Memoria 2-27 Tablet l 13:30: should not [place] 00 be chewed or crushed. (Same as: Protonix) tramadol No Notes: Not Mem oria hydrochlori 2-27 to exceed l de 50 MG 06:14: 400mg/day. Her song Oral Tablet 00 (Same As: Ultram) Tramadol No 25 mg, Memoria 11-10 Route: PO, l 06:02: Drug form: Obie 00 TAB, Q6H, Dosing Weight 75.318, kg, PRN Pain Score 4-6, Start date: 11/10/21 0:02:00 IRRADIATED F[employer] HAND[employer]ER, Duration: 30 day, Stop date: 12/10/21 0:01:00 CDT Acetaminoph No Notes: Eric oracio en 325 MG / 2-27 (Same as: l Hydrocodone 06:01: [place] Maribel nn Bitartrate 00 325/5) Do 5 MG Oral not exceed Tablet 4gm/day of [[place] acetaminop 5/325] hen. Rocephin + No Notes: Memor ia Sodium 2-26 (Same As: l Chloride 17:00: Rocephin). Her song 0.9% IV 100 00 Use with mL 100 mL NS and infuse over 30 min MEDICATION WASTE Product Size: 1000 mg Product Wasted: ___ mg doxycycline No 100 mg, 2 M emoria hyclate 2-26 cap, l 17:00: Route: PO, [place] 00 Drug form: CAP, [id number], Dosing Weight 75.318, kg, Start date: 11/09/21 11:00:00 [employer]RAD[employer] HAND[employer]ER, Duration: 5 day, Stop date: 11/13/21 23:00:00 IRRADI[employer] F[employer]EL HANDLER, ABX Indication : Skin/Soft Tissue Infection, 0 Cymbalta No Notes: Memoria 11-09 (Same as: l 15:00: Cymbalta) Obie 00 (Do Not Crush) Dulera 200 No 2 puff, Eric oracio mcg-5 11-09 Route: l mcg/inh 15:00: INHALER, Luis n inhalation 00 Drug Form: aerosol AERO, Dosing Weight 75.318, kg, Q12H, Start date: 11/09/21 9:00:00 IRRADIATED F[employer]EL HANDLER, Duration: 30 day, Stop date: 12/08/21 21:00:00 CDT RN-Pls No RN-Pls Memor ia bring pt's 11-09 bring pt's l DULERA inh 15:00: DULERA inh H ermann to pharmacy 00 to for pharmacy label for label, Attn:RN, Drug form: MISC, Route: MISC, QSHIFT, 11/09/21 9:00:00 IRRADIATED F[employer] HANDLER, Duration: 30 day, Stop date: 12/09/21 8:00:00 CDT, 0 Diltiazem No Notes: Memori a 11-09 (Same as: l 14:00: Cardizem) [place] Before meals phenol No Notes: Memoria 11-09 WASTE: F/P l 13:33: - Black; E Obie - Municipal Trash Bin Artificial No 1 drp, Memor ia Tears 11-09 Route: l 13:33: Each [place] Affected Eye, QID, Drug form: SOLN, PRN Dry Eyes, Start date: 11/09/21 7:33:00 IRRADIATED F[employer] HANDLER, Duration: 30 day, Stop date: 12/09/21 7:32:00 CDT, 0 Dulcolax No Notes: Memoria Laxative 11-09 (Same As: l 13:33: Dulcolax, [place] 00 Correctol) (Do Not Crush) "Do Not Crush" Guaifenesin No Notes: Eric oracio 20 MG/ML 2- (Same as: l Oral 13:33: Robitussin [place] Solution ) Hydralazine No Notes: Eric oracio 2-26 (Same as: l 13:33: Apresoline [place] ) Melatonin 3 No 3 mg, 1 Mem oria MG Extended 2-26 tab, l Release 13:33: Route: PO, Herm juan m Tablet 00 Dosing Weight 75.318, kg, Bedtime, PRN Insomnia, Start date: 11/09/21 7:33:00 IRRADIATED F[employer] HANDLER, Duration: 30 day, Stop date: 12/09/21 7:32:00 CDT Miralax No Notes: Memoria 2-26 Dissolve l 13:33: in 8 oz of Obie water or juice. (Same as: Miralax) Tums No Notes: Memoria 2-26 (Same As: l 13:33: Tums) Obie Calcium Carbonate 500 mg = 200 mg elemental calcium Dose = mg calcium carbonate ( mg elemental calcium) Zofran No Notes: Memoria 2-26 (Same as: l 13:33: Zofran) Obie 00 MEDICATION WASTE Product Size: 4 mg Product Wasted: ___ mg Zyrtec No Notes: Memoria 2-26 (Same As: l 13:33: Zyrtec) [place] 00 Ventolin No Notes: Memoria HFA 90 2 Albuterol l mcg/inh 13:33: 90 [place] inhalation 00 microgram/ aerosol inh 8gm with HFA WASTE: adapter Aerosol - Return to Pharmacy Same as: Ventolin, Proventil Trazodone No Notes: Memori a Hydrochlori 2- (Same As: l de 100 MG 03:00: Desyrel) Herm juan m Oral Tablet 00 atorvastati No Notes: Eric oracio n 2- (Same as: l 03:00: Lipitor) Obie 00 carvedilol No Notes: Memor ia 2-25 Give with l 16:05: food. [place] 00 (Same As: Coreg) Hydralazine No Notes: Eric oracio 2-25 (Same as: l 15:34: Apresoline ) Push over 5 minutes esomeprazol Yes 40 mg = 1 M emoria e 40 mg 2-25 cap, PO, l oral 15:33: Daily [place] delayed 00 release capsule trazodone Yes 100 mg = 1 Me moria 100 mg oral 2-25 tab, PO, l tablet 15:33: Bedtime Dulera 200 Yes 2 puff, Eric oracio mcg-5 2-25 INHALER, l mcg/inh 15:33: Q12H [place] inhalation 00 aerosol Esomeprazol Yes 40 mg = 1 M emoria e 40 MG 2-25 cap, PO, l Enteric 15:33: Daily [place] Coated 00 Capsule Trazodone Yes 100 mg = 1 Me moria Hydrochlori 2-25 tab, PO, l de 100 MG 15:33: Bedtime Maribel nn Oral Tablet 00 Xanax 0.25 Yes 0.25 mg = Me moria mg oral 2-25 1 tab, PO, l tablet 15:32: QPM diltiazem No 60 mg = 1 Mem oria 60 mg oral 2-25 tab, PO, l tablet 15:32: Q8H Alprazolam Yes 0.25 mg = Me moria 0.25 MG 2-25 1 tab, PO, l Oral Tablet 15:32: QPM Luis n [Xanax] 00 levothyroxi Yes 100 Memori a ne 100 mcg 2-25 microgram l (0.1 mg) 15:31: = 1 tab, Maribel nn oral tablet 00 PO, Daily furosemide Yes 40 mg = 1 Me moria 40 mg oral 2-25 tab, PO, l tablet 15:31: Daily 00 Potassium Yes 10 mEq = 1 Me moria Chloride 2-25 tab, PO, l (Eqv-K-Tab) 15:31: Daily Maribel nn 10 mEq oral 00 tablet, extended release Furosemide Yes 40 mg = 1 Me moria 40 MG Oral 2-25 tab, PO, l Tablet 15:31: Daily [place] 00 carvedilol No 12.5 mg = Me moria 12.5 mg 2-25 1 tab, PO, l oral tablet 15:31: Q12H Luis n 00 Digoxin No 125 Memoria 0.125 MG 2-25 microgram l Oral Tablet 15:31: = 1 tab, He rmann 00 PO, Daily, 0 Refill(s) aspirin 81 Yes 81 mg = 1 Me moria mg tablet, 2-25 tab, PO, l enteric 15:30: Daily [place] coated 00 Cymbalta 60 Yes 60 mg = 1 M emoria mg oral 2-25 cap, PO, l delayed 15:30: Daily Obie release 00 capsule Eliquis 5 Yes 5 mg = 1 Eric oracio mg oral 2-25 tab, PO, l tablet 15:30: Q12H [place] 00 Aspirin 81 Yes 81 mg = 1 Me moria MG Enteric 2-25 tab, PO, l Coated 15:30: Daily [place] Tablet 00 duloxetine Yes 60 mg = 1 Me moria 60 MG 2-25 cap, PO, l Enteric 15:30: Daily [place] Coated 00 Capsule [Cymbalta] apixaban 5 Yes 5 mg = 1 Mem oria MG Oral 2-25 tab, PO, l Tablet 15:30: Q12H Obie [Eliquis] 00 Furosemide No Notes: Memor ia 40 MG Oral 2-25 (Same as: l Tablet 15:00: Lasix) May Maribel nn [Lasix] 00 cause GI upset. Give with food or milk. carvedilol No Notes: Memor ia 2-25 Give with l 15:00: food. Obie 00 (Same As: Coreg) Digoxin No Notes: Memoria 0.125 MG 2-25 Take on an l Oral Tablet 15:00: Empty Maribel nn 00 Stomach (Same as: Lanoxin) Famotidine No Notes: Memor ia 2-25 (Same as: l 15:00: Pepcid) [place] 00 Can be dilute in 5-10cc NS IVP: Slow IV push over at least 2 minutes. Saline No Notes: Memoria Flush 0.9% 2-25 (Same as: l 15:00: BD [place] 00 Posiflush) Aspirin No Notes: Do Memor ia 2-25 not crush l 15:00: or chew. [place] 00 (Same As: Ecotrin) 200 ACTUAT No Notes: Memor ia Albuterol 2-25 Albuterol l 0.09 14:00: 90 [place] MG/ACTUAT 00 microgram/ Metered inh 8gm Dose HFA WASTE: Inhaler Aerosol - [Proventil] Return to Pharmacy Same as: Ventolin, Proventil Albuterol No Notes: SEE Me moria 2-25 RT l 14:00: DOCUMENTAT Obie 00 ION (Same as: Proventil) Thyroxine No Notes: Memori a 2-25 Take 1 l 12:30: hour [place] 00 before or 2 hours after meal; Enteral feeds may interefere with the absorption of this medication . (Same as:Levothr oid, Synthroid) Alprazolam No Notes: Memor ia 0.25 MG 2-25 With food l Oral Tablet 11:39: or milk Her song [Xanax] 00 (Same as: Xanax) albuterol No 2 puff, Memor ia 90 mcg/inh 2-25 Route: l inhalation 08:00: INHALER, Her song aerosol 00 Dosing Weight 75.318, kg, RQ6H, Start date: 11/08/21 2:00:00 IRRADIATED F[employer]EL HANDLER, Duration: 30 day, Stop date: 12/07/21 20:00:00 CDT Heparin 80 No Route: Memor ia unit/kg 2-25 IVP, PRN, l Bolus 07:53: 5,400 [place] (Heparin 00 unit, 5.4 Dosing mL, Drug Weight) form: INJ, PRN Heparin Protocol, Start date: 11/08/21 1:53:00 IRRADIATED F[employer]EL HANDLER, Stop date: 12/08/21 2:52:00 CDT, 30 day, 0 Heparin 40 No Route: Memor ia unit/kg 2-25 IVP, PRN, l Bolus 07:53: 2,700 [place]ie (Heparin 00 unit, 2.7 Dosing mL, Drug Weight) form: INJ, PRN Heparin Protocol, Start date: 11/08/21 1:53:00 IRRADIATED FUEL HANDLER, Stop date: 12/08/21 2:52:00 CDT, 30 day, 0 heparin No Notes: Memoria additive 2-25 Total l 25,000 unit 07:53: Concentrat [place]ie [18 00 ion = 50 unit/kg/hr] unit/ ml + Premix Total Diluent volume = Sodium 500 ml Chloride Send Med 0.45% 500 Request 2 mL hours prior to next bag Nystatin No Notes: Memoria 100 UNT/MG 2-25 (Same l Topical 07:48: as:Mycosta Herm juan m Powder 00 tin, Nilstat) For external use only. Bisacodyl No Notes: Memori a 2-25 (Same As: l 07:48: Dulcolax, [place] 00 Bisco-Lax) Docusate No Notes: Memoria Sodium 50 2-25 (Same as l MG / 07:48: Senokot-S) [place] sennosides, 00 Equiv. to LONG-TERM 8.6 MG Bettie-Colac Oral Tablet e. Saline No Notes: Memoria Flush 0.9% 2-25 (Same as: l 07:48: BD [place] 00 Posiflush) Potassium No Notes: Memori a Chloride 2-25 (Same as: l 07:48: KCL) 10 [place] 00 mEq/100ml product recommende d for peripheral line administra tion. Infuse no faster than 10 mEq/hr if given peripheral ly. sodium No Notes: Memoria phosphate 2-25 Infuse l 07:48: over 4 [place] 00 hour. Do not infuse phosphorou s concurrent ly in the same line as TPN or IVF that contains calcium. For double lumen central lines, phosphorou s may be infused in a separate lumen from TPN. potassium No Notes: Memori a phosphate 2-25 (Same as: l 07:48: K [place] 00 Phosphate. ) Do not infuse phosphorou s concurrent ly in the same line as TPN or IVF that contains calcium. For double lumen central lines, phosphorou s may be infused in a separate lumen from TPN. 1 mMol phoshate has 1.47 mEq potassium Infuse over 4 hours Magnesium No Notes: Memori a Sulfate -25 WASTE: F/P l 07:48: - Sink; E [place] - Municipal Trash Bin heparin No 500 mL, Memoria 2-25 Rate: 26 l 07:21: ml/hr, Infuse over: 19.2 hr, Route: IV, Dosing Weight 75.318 kg, Total Volume: 500, Start date: 11/08/21 1:21:00 IRRADIATED F[employer]EL HAND[employer]ER, Duration: 30 day, Stop date: 12/08/21 1:20:00 CDT, BSA: 1.9 m2 Acetaminoph Yes 1 tab, PO, Memoria en 325 MG / 2-08 Q6H, PRN l Hydrocodone 20:36: Pain Score [place] Bitartrate 00 1-3, X 7 5 MG Oral day, # 20 Tablet tab, 0 [[place] Refill(s), ] Pharmacy: [facility] #[id number], 170.1, cm, 10/12/21 5:21:00 IRRADIATED F[employer]EL [employer]ER, Height, 80.005, kg, 10/11/21 17:51:00 IRRADIATED F[employer]EL HAND[employer]ER, Weight Bisacodyl No Notes: Memori a 2-03 (Same As: l 20:26: Dulcolax, Bisco-Lax) Docusate No Notes: Memoria Sodium 50 2-01 (Same as l MG / 15:10: Senokot-S) [place] sennosides, 00 Equiv. to LONG-TERM 8.6 MG Bettie-Colac Oral Tablet e. Miralax No Notes: Memoria 2-01 Dissolve l 15:10: in 8 oz of water or juice. (Same as: Miralax) Docusate No Notes: Memoria Sodium 100 2-01 (Same as: l MG Oral 15:00: Colace) [place] Capsule 00 (Do Not [Colace] Crush) sennosides, No Notes: Eric oracio LONG-TERM 2-01 (Same as: l 13:32: Senokot) [place] 00 Flomax No Notes: Memoria - (Same As: l 23:00: Flomax) [place] "Do Not Crush" Sodium No 250 mL, Memoria Chloride 10-14 Rate: To l 0.9% 11:57: prime line [place] (titrate) 00 and flush 250 mL remaining blood products., Dosing Weight 80.005, kg, Route: IV, Total Volume: 250, Start Date: 10/14/21 5:57:00 IRRADIATED F[employer]EL HAND[employer]ER, Duration: 1 day, Stop date: 10/15/21 5:56:00 IRRADIATED FUEL HAND[employer]ER, Replace Every: 24 hr, 0 remove No 1 patch, Memoria patch 10-14 Route: l 03:00: TOP, [place] Bedtime, Drug form: ERFILM, Start date: 10/13/21 21:00:00 IRRAD[employer]ATED F[employer] HAND[employer]ER, Duration: 30 day, Stop date: 11/11/21 21:00:00 IRRADIATED F[employer]EL HANDLER, 0 lidocaine No 1 patch, Eric oracio 4% patch 10-13 Route: l 18:33: TOP, [place] Daily, Drug form: FILM, Start date: 10/13/21 12:33:00 IRRADIATED FUEL HANDLER, Duration: 30 day, Stop date: 11/12/21 9:00:00 IRRADIATED FUEL HANDLER, 0 Tylenol No Notes: Do Memor ia -30 not exceed l 18:27: 4 gm/day. [place] (Same as: Tylenol) tizanidine No Notes: Memor ia 1-30 (Same As: l 18:27: Zanaflex) [place] Zofran No Notes: Memoria 1-30 (Same as: l 18:27: Zofran) [place] MEDICATION WASTE Product Size: 4 mg Product Wasted: ___ mg Melatonin 3 No Notes: Eric oracio MG Extended 10-13 (Same as: l Release 18:27: Melatonin) Herm juan m Tablet 00 Docusate No 1 tab, Memoria Sodium 50 10-13 Route: PO, l MG / 18:27: Drug Form: [place] sennosides, 00 TAB, LONG-TERM 8.6 MG Dosing Oral Tablet Weight 80.005, kg, BID, PRN Constipati on, Start date: 10/13/21 12:27:00 IRRADIATED F[employer] HAND[employer]ER, Duration: 30 day, Stop date: 11/12/21 12:26:00 IRRADIATED F[employer]EL HANDLER Ceftriaxone No Notes: Eric oracio -30 (Same As: l 17:00: Rocephin). [place] 00 Use with 100 mL NS and infuse over 30 min MEDICATION WASTE Product Size: 1000 mg Product Wasted: ___ mg Levothroid No 100 Memoria 1-30 microgram, l 12:30: 1 tab, [place] 00 Route: PO, Drug form: TAB, Q630AM, Dosing Weight 80.005, kg, Start date: 10/13/21 6:30:00 IRRADIATED F[employer] HAND[employer]ER, Duration: 30 day, Stop date: 11/11/21 6:30:00 IRRADIATED FUEL HANDLER, 0 Trazodone No Notes: Memori a Hydrochlori 10-13 (Same As: l de 100 MG 03:00: Desyrel) Herm juan m Oral Tablet 00 Diltiazem No Notes: Memori a - (Same as: l 22:00: Cardizem) [place] 00 Before meals Dilaudid No Notes: Memoria 10-12 Same as: l 17:57: Dilaudid [place] 00 Albuterol No Notes: SEE Me moria - RT l 17:00: DOCUMENTAT [place] 00 ION (Same as: Proventil) Aspirin 81 No Notes: Do Me moria MG Enteric - not crush l Coated 15:00: or chew. [place] Tablet 00 (Same As: Ecotrin) carvedilol No Notes: Memor ia - Give with l 15:00: food. [place] 00 (Same As: Coreg) Digoxin No Notes: Memoria 0.125 MG - Take on an l Oral Tablet 15:00: Empty Maribel nn 00 Stomach (Same as: Lanoxin) Cymbalta No Notes: Memoria 1- (Same as: l 15:00: Cymbalta) [place] 00 (Do Not Crush) Dulera 100 No 2 puff, Eric oracio mcg-5 10-12 Route: l mcg/inh 15:00: INHALER, Luis n inhalation Drug Form: aerosol AERO, Dosing Weight 80.005, kg, BID, Start date: 10/12/21 9:00:00 IRRADIATED F[employer] HAND[employer]ER, Duration: 30 day, Stop date: 11/10/21 17:00:00 IRRADIATED F[employer] HAND[employer]ER Furosemide No Notes: Memor ia 10-12 (Same as: l 15:00: Lasix) May cause GI upset. Give with food or milk. gabapentin No Notes: Memor ia 10-12 (Same as: l 15:00: Neurontin) Potassium No Notes: Memori a Chloride 10-12 (Same as: l 15:00: K-Dur 10) "Do Not Crush" With food and full glass of water Eliquis No Notes: Memoria 10-12 Same as: l 15:00: Eliquis Pulmicort No Notes: Memori a Respules 10-12 (Same As: l 14:39: Pulmicort respule). Docusate No Notes: Memoria Sodium 50 10-12 (Same as l MG / 14:33: Senokot-S) sennosides, 00 Equiv. to LONG-TERM 8.6 MG Bettie-Colac Oral Tablet e. Acetaminoph No Notes: Eric oracio en 325 MG / 10-12 (Same as: l Hydrocodone 01:07: [place] Maribel nn Bitartrate 00 325/5) Do 5 MG Oral not exceed Tablet 4gm/day of [[place] acetaminop 5/325] hen. Calcium No 1,000 mL, Memor ia Chloride 10-11 Rate: 125 l 0.0014 23:08: ml/hr, [place] MEQ/ML / 00 Infuse Potassium over: 8 Chloride hr, Route: 0.004 IV, Dosing MEQ/ML / Weight Sodium 76.864 kg, Chloride Total 0.103 Volume: MEQ/ML / 1,000, Sodium Start Lactate date: 0.028 10/11/21 MEQ/ML 17:08:00 Injectable [employer]ER, Solution Duration: 30 day, Stop date: 11/10/21 17:07:00 [employer]RADI[employer]ER, BSA: 1.92 m2, 0 Hydralazine 2021-0 No 10 mg, Eric oracio 10-11 Route: l 23:08: IVP, [place] 00 Q20Min, Dosing Weight 76.864, kg, PRN Elevated BP, Start date: 10/11/21 17:08:00 [employer]ER, Duration: 2 doses or times, Stop date: Limited # of times Acetaminoph 2021-0 No 1,000 mg, M emoria en 10-11 Route: PO, l 23:08: Drug form: [place] 00 TAB, ONCE, Dosing Weight 76.864, kg, PRN Pain Score 1-3, Start date: 10/11/21 17:08:00 [employer]ER Fentanyl 2021-0 No 25 Memoria 10-11 microgram, l 23:08: Route: [place] 00 IVP, Q5Min, Dosing Weight 76.864, kg, PRN Pain Score 4-6, Priority: Routine, Start date: 10/11/21 17:08:00 IRRADIATED F[employer] HAND[employer]ER, Duration: 4 doses or times, Stop date: Limited # of times Hydromorpho 2021-0 No 0.5 mg, Mem oria ne 10-11 Route: l 23:08: IVP, [place] 00 Q5Min, Dosing Weight 76.864, kg, PRN Pain Score 7-10, Start date: 10/11/21 17:08:00 IRRADIATED F[employer] HAND[employer]ER, Duration: 4 doses or times, Stop date: Limited # of times Flumazenil 2021-0 No 0.2 mg, Eric oracio 10-11 Route: l 23:08: IVP, PRN, [place] 00 Dosing Weight 76.864, kg, PRN Benzodiaze pine Reversal, Initial dose, Start date: 10/11/21 17:08:00 IRRADIATED F[employer] HAND[employer]ER, Duration: 30 day, Stop date: 11/10/21 17:07:00 IRRADIATED FU[employer] HANDLER Naloxone 2-0 No 0.4 mg, Memori a 10-11 Route: l 23:08: IVP, [place] 00 Q2MIN, Dosing Weight 76.864, kg, PRN Narcotic Reversal, Start date: 10/11/21 17:08:00 IRRADIATED F[employer]EL HANDLER, Duration: 8 doses or times, Stop date: Limited # of times Ondansetron No 4 mg, Memor ia 10-11 Route: l 23:08: IVP, ONCE, Dosing Weight 76.864, kg, PRN Nausea & Vomiting, Start date: 10/11/21 17:08:00 [employer]RADIATED [employer]ER Lovenox No Notes: Memoria 10-11 (Same as: l 23:00: Lovenox) metoprolol No Route: IV, M emoria (ANES) 10-11 Drug form: l 22:53: INJ, ONCE, Stop date: 10/11/21 16:53:00 [employer]RADI[employer] F[employer]ER hydrALAZINE No Route: IV, Memoria (ANES) 10-11 Drug form: l 22:53: INJ, ONCE, Stop date: 10/11/21 16:53:00 IRRADIATED F[employer] HAND[employer]ER ondansetron No Route: IV, Memoria (ANES) 10-11 Drug form: l 22:43: INJ, ONCE, Stop date: 10/11/21 16:43:00 IRRADIATED F[employer] HANDLER glycopyrrol No Route: IV, Memoria ate (ANES) 10-11 Drug form: l 22:43: INJ, ONCE, Stop date: 10/11/21 16:43:00 IRRADIATED F[employer] HAND[employer]ER neostigmine No Route: IV, Memoria (ANES) 10-11 Drug form: l 22:43: INJ, ONCE, Stop date: 10/11/21 16:43:00 IRRADI[employer] F[employer]ER normal No 1,000 mL, Memori a saline 0.9% 10-11 Rate: 100 l IV 1,000 mL 22:37: ml/hr, Infuse over: 10 hr, Route: IV, Dosing Weight 76.864 kg, Total Volume: 1,000, Start date: 10/11/21 16:37:00 IRRADIATED F[employer] HANDLER, Duration: 30 day, Stop date: 11/10/21 16:36:00 IRRADIATED FUEL HANDLER, BSA: 1.92 m2, 0 protamine No Route: IV, Me moria (ANES) 10-11 Drug form: l 22:32: INJ, ONCE, Stop date: 10/11/21 16:32:00 IRRADIATED F[employer] HAND[employer]ER heparin 2021-0 No Route: IV, Eric oracio (ANES) 10-11 Drug form: l 21:11: INJ, ONCE, Stop date: 10/11/21 15:11:00 IRRADIATED F[employer]EL HAND[employer]ER rocuronium No Route: IV, Luis emoria (ANES) 10-11 Drug form: l 20:25: INJ, ONCE, Stop date: 10/11/21 14:25:00 IRRADIATED FUEL HANDLER dexamethaso No Route: IV, Memoria ne (ANES) 10-11 Drug form: l 20:25: INJ, ONCE, Stop date: 10/11/21 14:25:00 IRRADIATED FUEL HANDLER fentaNYL No Route: IV, Mem oria (ANES) 10-11 Drug form: l 19:55: INJ, ONCE, Stop date: 10/11/21 13:55:00 IRRADIATED FUEL HANDLER propofol 2021- No Route: IV, Mem oria (ANES) 10-11 Drug form: l 19:55: INJ, ONCE, Stop date: 10/11/21 13:55:00 IRRADIATED FUEL HANDLER ceFAZolin No Route: IV, Me moria (ANES) 10-11 Drug form: l 19:55: INJ, ONCE, Stop date: 10/11/21 13:55:00 IRRADIATED FUEL HANDLER lidocaine 2021-0 No Route: IV, Me moria (ANES) 10-11 Drug form: l 19:55: INJ, ONCE, Stop date: 10/11/21 13:55:00 IRRADIATED F[employer] HAND[employer]ER vancomycin 2021-0 No Route: IV, M emoria (ANES) 1000 10-11 Drug form: l mg 19:20: INJ, Start date: 10/11/21 13:20:00 IRRADIATED FUEL HANDLER, Stop date: 10/11/21 14:20:00 IRRADIATED F[employer] HAND[employer]ER midazolam 0 No Route: IV, Me moria (ANES) 10-11 Drug form: l 19:09: SOLN, ONCE, Stop date: 10/11/21 13:09:00 IRRADIATED FU[employer] HANDLER Sodium 2021-0 No Route: IV, Memor ia Chloride 10-11 Total l 0.9% IV 18:50: Volume: [place] (ANES) 1000 00 1,000, mL Start date: 10/11/21 12:50:00 IRRADIATED FUEL HANDLER, Stop date: 10/11/21 13:50:00 IRRADIATED FUEL HANDLER Lactated 0 No Route: IV, Mem oria Ringers -28 Total l Injection 18:36: Volume: Maribel nn IV (ANES) 00 1,000, 1000 mL Start date: 10/11/21 12:36:00 IRRADIATED FUEL HANDLER, Stop date: 10/11/21 13:36:00 IRRADIATED FUEL HANDLER Lactated No 1,000 mL, Eric oracio Ringers IV 10-11 Rate: 75 l 1,000 mL 18:34: ml/hr, [place] 00 Infuse over: 13.3 hr, Route: IV, Dosing Weight 76.864 kg, Total Volume: 1,000, Start date: 10/11/21 12:34:00 IRRADIATED FU[employer] HAND[employer]ER, Duration: 30 day, Stop date: 11/10/21 12:33:00 IRRADIATED FUEL HANDLER, BSA: 1.92 m2, 0 Calcium No 1,000 mL, Memor ia Chloride 10-03 Rate: 75 l 0.0014 16:59: ml/hr, [place] MEQ/ML / 00 Infuse Potassium over: 13.3 Chloride hr, Route: 0.004 IV, Dosing MEQ/ML / Weight Sodium 76.864 kg, Chloride Total 0.103 Volume: MEQ/ML / 1,000, Sodium Start Lactate date: 0.028 10/03/21 MEQ/ML 10:59:00 Injectable [employer]ER, Solution Duration: 30 day, Stop date: 11/02/21 10:58:00 IRRADIATED FUEL HANDLER, BSA: 1.92 m2 carvedilol Yes 25 mg = 2 Me moria 12.5 mg 1-17 tab, PO, l oral tablet 20:47: Q12H, # Her song 00 120 tab, 1 Refill(s), Pharmacy: [facility] #[id number], 170.18, cm, 09/29/21 4:04:00 IRRADIATED FUEL HANDLER, Height, 76.864, kg, 09/29/21 4:04:00 IRRADIATED FUEL HANDLER, Weight Digoxin Yes 0.125 mg = Eric oracio 0.125 MG 1-17 1 tab, PO, l Oral Tablet 20:47: Daily, # He rmann 00 30 tab, 1 Refill(s), Pharmacy: [facility] #[id number], 170.18, cm, 09/29/21 4:04:00 IRRADIATED FUEL HANDLER, Height, 76.864, kg, 09/29/21 4:04:00 IRRADIATED FUEL HANDLER, Weight diltiazem Yes 60 mg = 1 Mem oria 60 mg oral 1-17 tab, PO, l tablet 20:47: Q8H, # 90 Luis n 00 tab, 1 Refill(s), Pharmacy: [facility] #[id number], 170.18, cm, 09/29/21 4:04:00 IRRADIATED FUEL HANDLER, Height, 76.864, kg, 09/29/21 4:04:00 IRRADIATED FUEL HANDLER, Weight Docusate Yes 1 tab, PO, Mem oria Sodium 50 1-17 BID, PRN l MG / 20:47: Constipati [place] [facility], 00 on, X 14 LONG-TERM 8.6 MG day, # 30 Oral Tablet tab, 0 Refill(s), Pharmacy: [facility] #[id number], 170.18, cm, 09/29/21 4:04:00 IRRADIATED FUEL HANDLER, Height, 76.864, kg, 09/29/21 4:04:00 IRRADIATED FUEL HANDLER, Weight Docusate No Notes: Memoria Sodium 50 1-17 (Same as l MG / 14:18: Senokot-S) [facility], 00 Equiv. to LONG-TERM 8.6 MG Bettie-Colac Oral Tablet e. Diltiazem No Notes: Memori a 1-16 (Same as: l 23:21: Cardizem) [place] 00 Before meals Potassium No Notes: Memori a Chloride 1-16 (Same as: l 17:15: K-Dur 20) [place] 00 "Do Not Crush" Give with food and full glass of water For patients unable to swallow tablet, dissolve in one half glass of water. Allow about 2 minutes for the tablets to disintegra te. Stir before giving to prepare slurry and administer . Please exclude Patient s with feeding tube less than 14 American (Dobhoff, J-tube etc) and pediatric and patients. Metoprolol No Notes: Memor ia 1-16 (Same as: l 14:44: Lopressor) Push over 2 minutes Trazodone No Notes: Memori a Hydrochlori 1-16 (Same As: l de 100 MG 03:00: Desyrel) Herm juan m Oral Tablet 00 Coreg No Notes: Memoria 1-16 Give with l 03:00: food. [place] 00 (Same As: Coreg) Albuterol No Notes: SEE Me moria 1-15 RT l 17:00: DOCUMENTAT [place] ION (Same as: Proventil) Aspirin 81 No Notes: Do Me moria MG Enteric 1-15 not crush l Coated 15:00: or chew. [place] Tablet (Same As: Ecotrin) Cymbalta No Notes: Memoria 1-15 (Same as: l 15:00: Cymbalta) (Do Not Crush) Esomeprazol No 40 mg, 1 Me moria e 1-15 cap, l 15:00: Route: PO, [place] Drug form: ECCAP, Daily, Dosing Weight 77.273, kg, Start date: 09/28/21 9:00:00 IRRADIATED FUEL HANDLER, Duration: 30 day, Stop date: 10/27/21 9:00:00 IRRADIATED FUEL HANDLER Dulera 100 No 2 puff, Eric oracio mcg-5 1-15 Route: l mcg/inh 15:00: INHALER, Luis n inhalation Drug Form: aerosol AERO, Dosing Weight 77.273, kg, BID, Start date: 09/28/21 9:00:00 IRRADIATED FUEL HANDLER, Duration: 30 day, Stop date: 10/27/21 17:00:00 IRRADIATED FUEL HANDLER gabapentin No Notes: Memor ia 1-15 (Same as: l 15:00: Neurontin) Furosemide No Notes: Memor ia 1-15 (Same as: l 15:00: Lasix) MEDICATION WASTE Product Size: 40 mg Product Wasted: ___ mg metoprolol No Notes: Memor ia tartrate 1-15 (Same as: l 15:00: Lopressor) Saline No Notes: Memoria Flush 0.9% 1-15 (Same as: l 15:00: BD Posiflush) Eliquis No Notes: Memoria 1-15 Same as: l 15:00: Eliquis [place] 00 Digoxin No Notes: Memoria 0.125 MG 1-15 Take on an l Oral Tablet 15:00: Empty Maribel nn Stomach (Same as: Lanoxin) Coreg No Notes: Memoria 1-15 Give with l 15:00: food. [place] (Same As: Coreg) Pulmicort No Notes: Memori a Respules 1-15 (Same As: l 14:36: Pulmicort respule). Protonix No Notes: Memoria 1-15 Tablet l 13:30: should not be chewed or crushed. (Same as: Protonix) Synthroid No 100 Memoria 1-15 microgram, l 12:30: 1 tab, [place] Route: PO, Drug form: TAB, Q630AM, Dosing Weight 77.727, kg, Start date: 09/28/21 6:30:00 IRRADIATED FUEL HANDLER, Duration: 30 day, Stop date: 10/27/21 6:30:00 IRRADIATED FUEL HANDLER, 0 pneumococca No Notes: Eric oracio l capsular 1-15 (Same as: l polysacchar 09:01: Pneumovax H ermann chelsea type 1 56 23) vaccine / Refrigerat pneumococca e l capsular polysacchar che[place]sea type 10A vaccine / pneumococca l capsular polysacchar [place] type 11A vaccine / pneumococca l capsular polysacchar [place] type 12F vaccine / pneumococca l capsular polysacchar Magnesium No Notes: Memori a Sulfate 1-15 WASTE: F/P l 05:58: - Sink; E - Municipal Trash Bin Potassium No Notes: Memori a Chloride 1-15 (Same as: l 05:50: K-Dur 10) "Do Not Crush" With food and full glass of water Ondansetron No Notes: Eric oracio 1-15 (Same as: l 03:44: Zofran) MEDICATION WASTE Product Size: 4 mg Product Wasted: ___ mg Melatonin No Notes: Memori a 1-15 (Same as: l 03:44: Melatonin) Saline No Notes: Memoria Flush 0.9% 1-15 (Same as: l 03:44: BD Posiflush) Hydralazine No Notes: Eric oracio 1-15 (Same as: l 03:40: Apresoline ) Push over 5 minutes Furosemide No Notes: Memor ia 1-15 (Same as: l 03:40: Lasix) MEDICATION WASTE Product Size: 40 mg Product Wasted: ___ mg Nitroglycer No Notes: 1 Me moria in 0.02 1-15 gram is l MG/MG 03:12: approximat Luis n Topical 00 alvarez 1 inch Ointment of nitroglyce rin ointment (20 mg NTG per gram) (Same as:Nitro-B id) Potassium No Notes: Memori a Chloride 1-15 Infuse at l 03:12: a rate of 10 mEq/hr. (Same as: KCL) Lasix No Notes: Memoria 1-15 (Same as: l 03:10: Lasix) MEDICATION WASTE Product Size: 40 mg Product Wasted: ___ mg Aspirin No 325 mg, Memoria 1-15 Route: PO, l 02:51: ONCE, Dosing Weight 77.727, kg, Start date: 09/27/21 20:51:00 IRRADIATED FUEL HANDLER, Stop date: 09/27/21 20:51:00 IRRADIATED FUEL HANDLER Digoxin No Notes: Memoria 1-15 (Same as: l 02:32: Lanoxin) Diltiazem No 60 mg, Memori a 1-15 Route: PO, l 02:27: ONCE, Dosing Weight 77.727, kg, Start date: 09/27/21 20:27:00 IRRADIATED FUEL HANDLER, Stop date: 09/27/21 20:27:00 IRRADIATED FUEL HANDLER Diltiazem No Notes: Memori a 1-15 (Same as: l 01:22: Cardizem) Diltiazem No Notes: Memori a 1-14 (Same as: l 22:46: Cardizem) Saline No Notes: Memoria Flush 0.9% -14 (Same as: l 22:45: BD Posiflush) metoprolol No Notes: Memor ia tartrate 14 (Same as: l 22:44: Lopressor) Vancomycin No 2001 mg: Me moria 1-14 infuse l 22:00: over 2.5 hours For adult patients only: Round to nearest 250 mg per Medical Staff approval MEDICATION WASTE Product Size: 1000 mg Product Wasted: ___ mg Ancef + No Notes: Memoria sterile -14 (Same As: l water 20 mL 22:00: Ancef, Kefzol) MEDICATION WASTE Product Size: 1000 mg Product Wasted: ___ mg Dulera 100 Yes 2 puff, Eric oracio mcg-5 -14 INHALER, l mcg/inh 21:25: BID, # 1 Luis n inhalation 00 ea, 3 aerosol Refill(s) Furosemide Yes 40 mg, PO, M emoria 1-14 Daily, 0 l 21:24: Refill(s) Potassium Yes 10 mEq, Memor ia Chloride 1-14 PO, Daily, l 21:24: 0 Refill(s) gabapentin Yes 100 mg, Eric oracio 1-14 PO, BID, 0 l 21:24: Refill(s) metoprolol No 100 mg, Eric oracio tartrate 1-14 PO, BID, 0 l 21:23: Refill(s) Eliquis Yes 5 mg, PO, Memor ia 1-14 Q12H, 0 l 21:23: Refill(s) Aspirin 81 Yes 81 mg = 1 Me moria MG Enteric 1-14 tab, PO, l Coated 21:22: Daily, # Obie Tablet 00 90 tab, 3 Refill(s) Apixaban 2020-09 Yes Take by ME (ELIQUIS [...] mouth. Health 12:07: 12 traMADol 2020-09- No [id number] 50mg Take 1 U T (Ultram) 50 09-15 tablet (50 H ealth MG tablet 00:00: 05:59 mg total) 00 :00 by mouth every 8 (eight) hours if needed for severe pain for up to 5 days. clopidogrel 2020-09 Yes 75 mg = 1 M emoria 75 MG Oral 0-19 tab, PO, l Tablet 19:20: Daily, # [place] [Plavix] 00 90 tab, 3 Refill(s) heparin 2020-09 No Route: IV, Eric oracio (ANES) 0-19 Drug form: l 18:15: INJ, ONCE, Ob[place] 00 Stop date: 07/02/21 13:15:00 CDT lidocaine 2020-09 No Route: IV, Me moria (ANES) 0-19 Drug form: l 18:04: INJ, ONCE, [place] Stop date: 07/02/21 13:04:00 CDT fentaNYL 2020-09 No Route: IV, Mem oria (ANES) 0-19 Drug form: l 18:04: INJ, ONCE, Stop date: 07/02/21 13:04:00 CDT propofol 2020-09 No Route: IV, Mem oria (ANES) 0-19 Drug form: l 18:04: INJ, ONCE, Stop date: 07/02/21 13:04:00 CDT ondansetron 2020-09 No Route: IV, Memoria (ANES) 0-19 Drug form: l 18:04: INJ, ONCE, Stop date: 07/02/21 13:04:00 CDT ceFAZolin 2020-09 No Route: IV, Me moria (ANES) 0-19 Drug form: l 17:54: INJ, ONCE, Stop date: 07/02/21 12:54:00 CDT midazolam 2020-09 No Route: IV, Me moria (ANES) 0-19 Drug form: l 17:54: SOLN, ONCE, Stop date: 07/02/21 12:54:00 CDT vancomycin 2020-09 No Route: IV, M emoria (ANES) 1000 0-19 Drug form: l mg 17:20: INJ, Start date: 07/02/21 12:20:00 CDT, Stop date: 07/02/21 13:20:00 CDT Lactated 2020-09 No Route: IV, Mem oria Ringers 0-19 Total l Injection 17:12: Volume: Maribel nn IV (ANES) 00 1,000, 1000 mL Start date: 07/02/21 12:12:00 CDT, Stop date: 07/02/21 13:12:00 CDT duloxetine 2020-09 Yes 60 mg = 1 Me moria 60 MG 0-19 cap, PO, l Enteric 15:42: Daily, # Luis n Coated 00 30 cap, 0 Capsule Refill(s) [Cymbalta] Trazodone 2020-09 Yes 100 mg = 1 Me moria Hydrochlori 0-19 tab, PO, l de 100 MG 15:42: Bedtime, # Celestino rmann Oral Tablet 00 30 tab, 0 Refill(s) tamsulosin 2020-09 Yes 0.4 mg = 1 M emoria 0.4 mg oral 0-19 cap, PO, l capsule 15:41: Daily, # Luis n 00 30 cap, 0 Refill(s) Hydrochloro 2020-09 Yes 25 mg = 1 M emoria thiazide 25 0-19 tab, PO, l MG Oral 15:41: Daily, # Luis n Tablet 00 30 tab, 0 Refill(s) amLODIPine 2020-09 Yes 10 mg = 1 Me moria 10 mg oral 0-19 tab, PO, l tablet 15:41: Daily, # Obie 00 90 tab, 0 Refill(s) cyclobenzap 2020-09 Yes 10 mg = 1 M emoria rine 10 mg 0-19 tab, PO, l oral tablet 15:40: Bedtime, 0 Obie 00 Refill(s) metoprolol 2020-09 Yes 50 mg = 1 Me moria tartrate 50 0-19 tab, PO, l mg oral 15:40: BID, # 180 Herm juan m tablet 00 tab, 0 Refill(s) ezetimibe 2020-09 Yes 10 mg = 1 Mem oria 10 mg oral 0-19 tab, PO, l tablet 15:40: Daily, # [place] 00 30 tab, 0 Refill(s) Esomeprazol 2020-09 Yes 40 mg = 1 M emoria e 40 MG 0-19 cap, PO, l Enteric 15:39: Daily, # Luis n Coated 00 30 cap, 0 Capsule Refill(s) Levothroid 2020-09 Yes 100 Memoria 100 mcg 0-19 microgram l (0.1 mg) 15:39: = 1 tab, Maribel nn oral tablet 00 PO, Daily, # 30 tab, 0 Refill(s) Alprazolam 2020-09 Yes 0.25 mg = Me moria 0.25 MG 0-19 1 tab, PO, l Oral Tablet 15:38: BID, PRN He rmann 00 anxiety, stress, # 20 tab, 0 Refill(s) Calcium 2020-09 No 1,000 mL, Memor ia Chloride 0-19 Rate: 75 l 0.0014 15:19: ml/hr, [place] MEQ/ML / 00 Infuse Potassium over: 13.3 Chloride hr, Route: 0.004 IV, Total MEQ/ML / Volume: Sodium 1,000, Chloride Start 0.103 date: MEQ/ML / 07/02/21 Sodium 10:19:00 Lactate CDT, 0.028 Duration: MEQ/ML 1 day, Injectable Stop date: Solution 07/03/21 10:18:00 CDT, 0 Ancef + 2020-09 No Notes: Memoria sterile 0-18 (Same As: l water 20 mL 21:00: Ancef, Herm juan m 00 Kefzol) MEDICATION WASTE Product Size: 1000 mg Product Wasted: ___ mg Vancomycin 2020-09 No 2000 mg: Me moria 0-18 infuse l 21:00: over 2.5 [place] 00 hours For adult patients only: Round to nearest 250 mg per Medical Staff approval MEDICATION WASTE Product Size: 1000 mg Product Wasted: ___ mg traMADol 2020-09 No [id number] 50mg Q6H Take 1 U T (Ultram) [...] Health 0.25 MG 00:00: tablet 00 ALPRAZolam 2021-0 Yes [facility] (Xanax) 9-08 Health 0.25 MG [...] 00 50 MG 24 hr tablet metoprolol 2021-0 Yes [facility] succinate 8-31 Health XL 00:00: (Toprol-XL) 00 50 MG 24 hr tablet metoprolol 2020-0 Yes [facility] succinate 8-31 Health XL 00:00: (Toprol-XL) 00 50 MG 24 hr tablet ezetimibe 1-0 Yes [facility] (Zetia) 10 8-15 [...] Source Body height 2022-07-09 14:00:00 170.2 cm [facility] Body weight 2022-07-09 14:00:00 73.936 kg [facility] BMI 2022-07-09 14:00:00 25.53 kg/m2 [facility] Systolic (mm Hg) 2022-05-23 19:00:00 Eric rial [place] Diastolic (mm Hg) 2022-05-23 19:00:00 [facility] orial [place] Heart Rate 2022-05-23 18:20:00 [facility] [place] Respitory Rate 2022-05-23 18:20:00 Memori al [place] Height 2022-05-23 18:20:00 167.64 cm [facility] Weight 2022-05-23 18:20:00 [facility] BMI Calculated 2022-05-23 18:20:00 Memori al [place] Systolic (mm Hg) 2022-04-10 13:18:00 Eric rial [place] Diastolic (mm Hg) 2022-04-10 13:18:00 [facility] orial [place] Heart Rate 2022-04-10 13:18:00 [facility] [place] Respitory Rate 2022-04-10 13:18:00 Memori al [place] Height 2022-04-10 13:18:[address] [facility]:18[facility] BMI Calculated 2022-04-10 13:18:00 Memori al [place] Systolic (mm Hg) 2022-03-10 16:31:00 [facility] Diastolic (mm Hg) 2022-03-10 16:31:00 [facility] [place] Heart Rate 2022-03-10 16:31:00 [facility] [place] Respitory Rate 2022-03-10 16:31:00 [facility] [place] Height 2022-03-10 16:31:00 170.18 cm [facility] Weight 2022-03-10 16:31:00 [facility] [place] BMI Calculated 2022-03-10 16:31:00 [facility] [place] Temperature Oral (F) 2021-11-11 17:48:00 97.9 F [facility] [place] Heart Rate 2021-11-11 17:48:00 [facility] [place] Respitory Rate 2021-11-11 17:48:00 [facility] [place] Systolic (mm Hg) 2021-11-11 17:48:00 [facility] Diastolic (mm Hg) 2021-11-11 17:48:00 [facility] [place] Respitory Rate 2021-11-11 14:13:00 [facility] [place] Systolic (mm Hg) 2021-11-11 14:13:00 [facility] [place] Diastolic (mm Hg) 2021-11-11 14:13:00 [facility] Temperature Oral (F) 2021-11-11 14:13:00 98.4 F [facility] [place] Respitory Rate 2021-11-11 13:45:00 [facility] [place] Temperature Oral (F) 2021-11-11 09:08:00 98.2 F [facility] [place] Heart Rate 2021-11-11 09:08:00 [facility] Respitory Rate 2021-11-11 09:08:00 [facility] [place] Systolic (mm Hg) 2021-11-11 09:08:00 [facility] Diastolic (mm Hg) 2021-11-11 09:08:00 [facility] [place] Systolic (mm Hg) 2021-11-11 05:21:00 [facility] [place] Diastolic (mm Hg) 2021-11-11 05:21:00 [facility] [place] Heart Rate 2021-11-11 05:21:00 [facility] Temperature Oral (F) 2021-11-11 05:21:00 98.3 F [facility] [place] Respitory Rate 2021-11-11 05:21:00 [facility] [place] Respitory Rate 2021-11-11 02:00:00 [facility] Heart Rate 2021-11-11 01:41:18 [facility] [place] Systolic (mm Hg) 2021-11-11 01:41:07 [facility] [place] Diastolic (mm Hg) 2021-11-11 01:41:07 [facility] Temperature Oral (F) 2021-11-11 01:40:40 98.8 F [facility] [place] Height 2021-11-08 10:09:00 170.18 cm [facility] Height 2021-11-08 06:40:00 170.18 cm [facility] Weight 2021-11-08 06:40:00 [facility] [place] BMI Calculated 2021-11-08 06:40:00 [facility] Heart Rate 2021-11-04 15:51:00 [facility] Systolic (mm Hg) 2021-11-04 15:51:00 [facility] [place] Diastolic (mm Hg) 2021-11-04 15:51:00 [facility] [place] Height 2021-11-04 15:51:00 170.18 cm [facility] [place] Weight 2021-11-04 15:51:00 [facility] BMI Calculated 2021-11-04 15:51:00 [facility] Heart Rate 2021-10-22 13:43:37 [facility] Systolic (mm Hg) 2021-10-22 13:43:33 [facility] [place] Diastolic (mm Hg) 2021-10-22 13:43:33 [facility] [place] Heart Rate 2021-10-22 13:43:33 [facility] Temperature Oral (F) 2021-10-22 13:42:37 98.1 F [facility] Respitory Rate 2021-10-22 12:54:00 [facility] Heart Rate 2021-10-22 05:29:53 [facility] [place] Systolic (mm Hg) 2021-10-22 05:29:29 [facility] [place] Diastolic (mm Hg) 2021-10-22 05:29:29 [facility] [place] Temperature Oral (F) 2021-10-22 05:29:23 98.3 F [facility] Systolic (mm Hg) 2021-10-22 03:16:00 [facility] [place] Diastolic (mm Hg) 2021-10-22 03:16:00 [facility] [place] Respitory Rate 2021-10-22 01:15:00 [facility] [place] Temperature Oral (F) 2021-10-21 21:49:32 97.4 F [facility] [place] Respitory Rate 2021-10-21 14:10:00 [facility] [place] Temperature Oral (F) 2021-10-21 05:14:00 98.6 F [facility] Heart Rate 2021-10-21 05:14:00 [facility] [place] Respitory Rate 2021-10-21 05:14:00 [facility] [place] Systolic (mm Hg) 2021-10-21 05:14:00 [facility] [place] Diastolic (mm Hg) 2021-10-21 05:14:00 [facility] [place] Systolic (mm Hg) 2021-10-21 04:17:00 [facility] [place] Diastolic (mm Hg) 2021-10-21 04:17:00 [facility] Heart Rate 2021-10-21 04:17:00 [facility] Respitory Rate 2021-10-21 01:49:00 [facility] Temperature Oral (F) 2021-10-20 21:41:00 98.7 F [facility] [place] Heart Rate 2021-10-20 21:41:00 [facility] Systolic (mm Hg) 2021-10-20 21:41:00 [facility] [place] Diastolic (mm Hg) 2021-10-20 21:41:00 [facility] [place] Respitory Rate 2021-10-20 13:48:00 [facility] [place] Temperature Oral (F) 2021-10-20 13:27:46 98.4 F [facility] Heart Rate 2021-10-14 05:25:01 [facility] Systolic (mm Hg) 2021-10-14 05:24:53 [facility] [place] Diastolic (mm Hg) 2021-10-14 05:24:53 [facility] [place] Heart Rate 2021-10-14 05:24:53 [facility] Temperature Oral (F) 2021-10-14 05:24:34 100 F [facility] Temperature Oral (F) 2021-10-14 04:22:00 98.6 F [facility] Respitory Rate 2021-10-14 01:00:00 [facility] Heart Rate 2021-10-13 22:10:06 [facility] Respitory Rate 2021-10-13 22:10:06 [facility] [place] Systolic (mm Hg) 2021-10-13 22:09:57 [facility] [place] Diastolic (mm Hg) 2021-10-13 22:09:57 [facility] Temperature Oral (F) 2021-10-13 22:09:47 100.4 F [facility] [place] Systolic (mm Hg) 2021-10-13 21:18:37 [facility] [place] Diastolic (mm Hg) 2021-10-13 21:18:37 [facility] [place] Respitory Rate 2021-10-13 13:33:00 [facility] [place] Height 2021-10-12 11:21:00 170.1 cm [facility] Height 2021-10-11 23:51:00 167.64 cm [facility] Weight 2021-10-11 23:51:00 [facility] [place] BMI Calculated 2021-10-11 23:51:00 [facility] Respitory Rate 2021-10-03 16:20:00 [facility] [place] Systolic (mm Hg) 2021-10-03 16:20:00 [facility] [place] Diastolic (mm Hg) 2021-10-03 16:20:00 [facility] [place] Heart Rate 2021-09-30 21:26:42 [facility] [place] Systolic (mm Hg) 2021-09-30 21:26:10 [facility] [place] Diastolic (mm Hg) 2021-09-30 21:26:10 [facility] Heart Rate 2021-09-30 21:26:10 [facility] Temperature Oral (F) 2021-09-30 21:24:46 98 F [facility] [place] Respitory Rate 2021-09-30 14:01:00 [facility] [place] Heart Rate 2021-09-30 13:52:01 [facility] [place] Systolic (mm Hg) 2021-09-30 13:51:46 [facility] [place] Diastolic (mm Hg) 2021-09-30 13:51:46 [facility] Temperature Oral (F) 2021-09-30 13:50:49 98 F [facility] [place] Systolic (mm Hg) 2021-09-30 06:36:00 [facility] [place] Diastolic (mm Hg) 2021-09-30 06:36:00 [facility] Heart Rate 2021-09-30 06:36:00 [facility] Heart Rate 2021-09-30 05:04:05 [facility] Systolic (mm Hg) 2021-09-30 05:03:59 [facility] [place] Diastolic (mm Hg) 2021-09-30 05:03:59 [facility] Heart Rate 2021-09-30 05:03:59 [facility] Temperature Oral (F) 2021-09-30 05:03:36 97.1 F [facility] [place] Systolic (mm Hg) 2021-09-30 02:40:00 [facility] [place] Diastolic (mm Hg) 2021-09-30 02:40:00 [facility] Respitory Rate 2021-09-30 02:18:00 [facility] [place] Temperature Oral (F) 2021-09-29 22:44:45 97.7 F [facility] [place] Respitory Rate 2021-09-29 14:13:00 [facility] Height 2021-09-29 10:04:00 170.18 cm [facility] Weight 2021-09-29 10:04:00 [facility] BMI Calculated 2021-09-29 10:04:00 [facility] [place] Respitory Rate 2021-09-29 00:52:00 [facility] Temperature Oral (F) 2021-09-28 13:16:08 97.4 F [facility] [place] Height 2021-09-28 08:50:00 170.18 cm [facility] Weight 2021-09-28 08:50:00 [facility] [place] BMI Calculated 2021-09-28 08:50:00 [facility] BMI Calculated 2021-09-27 22:45:00 [facility] [place] Height 2021-09-27 22:19:00 170.18 cm [facility] Weight 2021-09-27 22:19:00 [facility] Heart Rate 2021-09-27 22:10:00 [facility] Respitory Rate 2021-09-27 22:10:00 [facility] [place] Systolic (mm Hg) 2021-09-27 22:10:00 [facility] [place] Diastolic (mm Hg) 2021-09-27 22:10:00 [facility] Height 2021-09-27 21:44:00 170.18 cm [facility] Weight 2021-09-27 21:44:00 [facility] BMI Calculated 2021-09-27 21:44:00 [facility] [place] Respitory Rate 2021-07-02 22:00:00 [facility] [place] Systolic (mm Hg) 2021-07-02 22:00:00 [facility] [place] Diastolic (mm Hg) 2021-07-02 22:00:00 [facility] [place] Respitory Rate 2021-07-02 21:30:00 [facility] [place] Systolic (mm Hg) 2021-07-02 21:30:00 [facility] [place] Diastolic (mm Hg) 2021-07-02 21:30:00 [facility] [place] Respitory Rate 2021-07-02 21:00:00 [facility] [place] Systolic (mm Hg) 2021-07-02 21:00:00 [facility] [place] Diastolic (mm Hg) 2021-07-02 21:00:00 [facility] Heart Rate 2021-07-02 19:08:00 [facility] [place] Heart Rate 2021-07-02 16:17:00 [facility] Height 2021-07-02 15:19:00 170.18 cm [facility] [place] Weight 2021-07-02 15:19:00 [facility] BMI Calculated 2021-07-02 15:19:00 [facility] [place] Procedures Procedure Date / Time Performing Clinician Source Performed CT ANGIOGRAM ABDOMINAL 2022-07-09 15:35:12 Richie Martin [facility] AORTA AND BILATERAL ILIOFEMORAL RUNOFF W WO CONTRAST ESTIMATED GFR 2022-07-09 14:13:00 [facility] POC CREATININE 2022-07-09 14:13:00 [facility] [id number] 2021-11-20 00:00:00 ALDMO [facility] Aortofemoral to popliteal [facility] [place] vascular bypass Coronary artery [facility] [place] closure<sup>1</sup> Placement of [facility] stent<sup>2</sup> Neck procedure [facility] Cholecyst[facility] Plan of Care Planned Activity Planned Date Details Comments Source Future Scheduled 2022-11-19 COVID-19 VACCINE (#1) [facility] Hospital Test 07:00:50 [code = COVID-19 VACCINE (#1)] Future Scheduled 2022-11-19 Hepatitis C screening [facility] Hospital Test 07:00:50 (procedure) [code = 631776020] Future Scheduled 2022-11-19 SHINGLES VACCINES ([address] [facility] Test 07:00:50 of 2) [code = SHINGLES VACCINES (1 of 2)] Future Scheduled 2022-11-19 INFLUENZA VACCINE [facility] Hospital Test 07:00:50 [code = INFLUENZA VACCINE] Future Scheduled 2022-11-19 65+ PNEUMOCOCCAL [facility] Hospital Test 07:00:50 VACCINE (2 - PCV) [code = 65+ PNEUMOCOCCAL VACCINE (2 - PCV)] Future Scheduled 2022-10-09 COVID-19 VACCINE (#1) [facility] Hospital Test 11:17:54 [code = COVID-19 VACCINE (#1)] Future Scheduled 2022-10-09 Hepatitis C screening [facility] Hospital Test 11:17:54 (procedure) [code = [id number]] Future Scheduled 2022-10-09 SHINGLES VACCINES ([address] [facility] Test 11:17:54 of 2) [code = SHINGLES VACCINES (1 of 2)] Future Scheduled 2022-10-09 INFLUENZA VACCINE Method [facility] Hospital Test 11:17:54 [code = INFLUENZA VACCINE] Future Scheduled 2022-10-09 65+ PNEUMOCOCCAL [facility] Hospital Test 11:17:54 VACCINE (2 - PCV) [code = 65+ PNEUMOCOCCAL VACCINE (2 - PCV)] Future Scheduled 2022-09-28 COVID-19 VACCINE (#1) [facility] Hospital Test 10:31:23 [code = COVID-19 VACCINE (#1)] Future Scheduled 2022-09-28 Hepatitis C screening [facility] Hospital Test 10:31:23 (procedure) [code = [id number]] Future Scheduled 2022-09-28 SHINGLES VACCINES (1 Met [facility] Hospital Test 10:31:23 of 2) [code = SHINGLES VACCINES (1 of 2)] Future Scheduled 2022-09-28 INFLUENZA VACCINE Method [facility] Hospital Test 10:31:23 [code = INFLUENZA VACCINE] Future Scheduled 2022-09-28 65+ PNEUMOCOCCAL [facility] Hospital Test 10:31:23 VACCINE (2 - PCV) [code = 65+ PNEUMOCOCCAL VACCINE (2 - PCV)] Future Scheduled 2022-09-28 COVID-19 VACCINE (#1) [facility] Hospital Test 10:31:23 [code = COVID-19 VACCINE (#1)] Future Scheduled 2022-09-28 Hepatitis C screening [facility] Hospital Test 10:31:23 (procedure) [code = [id number]] Future Scheduled 2022-09-28 SHINGLES VACCINES (1 Met [facility] Hospital Test 10:31:23 of 2) [code = SHINGLES VACCINES (1 of 2)] Future Scheduled 2022-09-28 INFLUENZA VACCINE Method [facility] Hospital Test 10:31:23 [code = INFLUENZA VACCINE] Future Scheduled 2022-09-28 65+ PNEUMOCOCCAL [facility] Hospital Test 10:31:23 VACCINE (2 - PCV) [code = 65+ PNEUMOCOCCAL VACCINE (2 - PCV)] Future Scheduled 2022-08-27 COVID-19 VACCINE (#1) [facility] Hospital Test 06:40:57 [code = COVID-19 VACCINE (#1)] Future Scheduled 2022-08-27 Hepatitis C screening [facility] Hospital Test 06:40:57 (procedure) [code = [id number]] Future Scheduled 2022-08-27 SHINGLES VACCINES (1 Met [facility] Hospital Test 06:40:57 of 2) [code = SHINGLES VACCINES (1 of 2)] Future Scheduled 2022-08-27 INFLUENZA VACCINE Method [facility] Hospital Test 06:40:57 [code = INFLUENZA VACCINE] Future Scheduled 2022-08-27 65+ PNEUMOCOCCAL [facility] Hospital Test 06:40:57 VACCINE (2 - PCV) [code = 65+ PNEUMOCOCCAL VACCINE (2 - PCV)] Future Scheduled 2022-08-27 COVID-19 VACCINE (#1) [facility] Hospital Test 06:40:57 [code = COVID-19 VACCINE (#1)] Future Scheduled 2022-08-27 [facility] 06:[facility]:57 (procedure) [code = [id number]] Future Scheduled 2022-08-27 [facility]57 of 2) [code = [facility] Test 06:40:57 (procedure) [code = 452316889] Future Scheduled 2022-08-27 [facility]ACCINES ([facility] 06[facility]:57 of 2) [code = [...] [facility] Test 06:40:57 (procedure) [code = 742491865] Future Scheduled 2022-08-27 [facility]IN[facility] ([facility] 06:40:57 of 2) [code = SHINGLES VACCINES (1 of 2)] Future Scheduled 2022-08-27 INFLUENZA VACCINE [facility] Hospital Test 06:40:57 [code = INFLUENZA VACCINE] Future Scheduled 2022-08-27 65+ [facility]OCOCC[facility] Test 06:40:57 VACCINE (2 - PCV) [code = 65+ PNEUMOCOCCAL VACCINE (2 - PCV)] Future Scheduled 2022-08-27 COVID-19 VACCINE (#1) [facility] 06:40:57 [code = COVID-19 VACCINE (#1)] Future Scheduled 2022-08-27 [facility] Test 06:40:57 (procedure) [code = [id number]] Future Scheduled 2022-08-27 SHINGLES VACCINES (1 Met [facility] Test 06:40:57 of 2) [code = SHINGLES VACCINES (1 of 2)] Future Scheduled 2022-08-27 INFLUENZA VACCINE [facility] Hospital Test 06:40:57 [code = INFLUENZA VACCINE] Future Scheduled 2022-08-27 65+ PNEUMOCOCCAL [facility] Hospital Test 06:40:57 VACCINE (2 - PCV) [code = 65+ PNEUMOCOCCAL VACCINE (2 - PCV)] Future Scheduled 2022-08-27 [facility] 06:40:57 [code = COVID-19 VACCINE (#1)] Future Scheduled 2022-08-27 [facility] Test 06:40:57 (procedure) [code = 907672611] Future Scheduled 2022-08-27 SHINGLES VACCINES (1 Met [facility] Test 06:40:57 of 2) [code = SHINGLES VACCINES (1 of 2)] Future Scheduled 2022-08-27 INFLUENZA VACCINE Method [facility] Hospital Test 06:40:57 [code = INFLUENZA VACCINE] Future Scheduled 2022-08-27 65+ PNEUMOCOCCAL [facility] Test 06:40:57 VACCINE (2 - PCV) [code = 65+ PNEUMOCOCCAL VACCINE (2 - PCV)] Future Scheduled 2022-07-17 HEPATITIS B VACCINES Met [facility] Hospital Test 07:30:39 (1 of 3 - 3-dose series) [code = HEPATITIS B VACCINES (1 of 3 - 3-dose series)] Future Scheduled 2022-07-17 COVID-19 [facility]ACCINE (#1) [facility] 07:30:39 [code = COVID-19 VACCINE (#1)] Future Scheduled 2022-07-17 Hepatitis C screening [facility] Test 07:30:39 (procedure) [code = 169228129] Future Scheduled 2022-07-17 SHINGLES VACCINES (1 Met [facility] Test 07:30:39 of 2) [code = SHINGLES VACCINES (1 of 2)] Future Scheduled 2022-07-17 INFLUENZA VACCINE Method [facility] Test 07:30:39 [code = INFLUENZA VACCINE] Future Scheduled 2022-07-17 65+ PNEUMOCOCCAL [facility] Test 07:30:39 VACCINE (2 - PCV) [code = 65+ PNEUMOCOCCAL VACCINE (2 - PCV)] Future Scheduled 2022-07-17 HEPATITIS B VACCINES Met [facility] Test 07:30:39 (1 of 3 - 3-dose series) [code = HEPATITIS B VACCINES (1 of 3 - 3-dose series)] Future Scheduled 2022-07-17 COVID-19 VACCINE (#1) [facility] Test 07:30:39 [code = COVID-19 VACCINE (#1)] Future Scheduled 2022-07-17 Hepatitis C screening [facility] Test 07:30:39 (procedure) [code = 750814920] Future Scheduled 2022-07-17 SHINGLES VACCINES ([address] [facility] Test 07:30:39 of 2) [code = SHINGLES VACCINES (1 of 2)] Future Scheduled 2022-07-17 INFLUENZA VACCINE [facility] Test 07:30:39 [code = INFLUENZA VACCINE] Future Scheduled 2022-07-17 65+ PNEUMOCOCCAL [facility] Test 07:30:39 VACCINE (2 - PCV) [code = 65+ PNEUMOCOCCAL VACCINE (2 - PCV)] Encounters Start End Encounter Admission Attending Care Care Encounter Source Date/Time Date/Time Type Type Clinicians Facility Department ID 2022-10-13 Outpatient 3 [id number] [facility] CRD [id number] [facility] 09:51:27 [facility] 2022-09-26 Outpatient 3 [id number] [facility] CRD [id number] [facility] 10:45:58 [facility] [place] [facility] 2022-09-25 Outpatient 3 [id number] [facility] REF [id number] [facility] 12:30:18 0[facility] [place] [facility] 2022-04-03 Outpatient DANIA CONNELLSE MHSE [id number] 15:59:49 [facility] 2021-11-21 Outpatient [facility] [id number] [place] 10:56:53 Health 2021-11-21 Outpatient [facility] [id number] [place] 10:55:46 [facility] 2021-10-22 Outpatient 3 [id number] ENCPL CRD [id number] [facility] 10:32:05 0208 [facility] [place] [facility] 2021-10-16 Outpatient 3 [id number] E[facility] REF [id number] [facility] 10:31:34 0202 [facility] [place] [facility] 2021-10-01 Outpatient KO [facility] [id number] [place] 01:05:41 [facility] 2021-09-27 Inpatient KO SE MHSE [id number] 14:57:03 [facility] 2021-09-24 Outpatient KO [facility] [id number] [place] 14:24:58 [facility] 2021-09-16 Outpatient [facility] [id number] [place] 08:56:13 [facility] 2021-09-16 Outpatient [facility] [id number] [place] 08:54:24 [facility] 2021-08-19 Outpatient KO [facility] [id number] [place] 07:57:20 [facility] 2021-08-19 Outpatient [facility] [id number] [place] 07:56:39 [facility] 2021-08-19 Outpatient [facility] [id number] [place] 07:55:37 [facility] 2021-07-23 Outpatient [facility] [id number] [place] 10:43:22 [facility] 2021-07-23 Outpatient KO [facility] [id number] [place] 10:42:25 [facility] 2021-07-23 Outpatient [facility] [id number] [place] 10:36:58 [facility] 2022-07-23 2022-07-23 Ambulatory nullFlavo MNA [id number] [facility] 19:00:00 19:00:00 Pre-Reg r Neurology 06 l Qiana [place] 2022-07-23 2022-07-23 Outpatient MHIE DANIAIE [id number] [facility] 13:00:00 13:00:00 06 l Obie 2022-07-23 2022-07-23 Outpatient RATNA Gallegos [id number] 13:00:00 13:00:00 Minesh Forbes 2022-07-09 2022-07-09 Outpatient DANII [facility] [id number] [place] 00:00:00 00:00:00 DIVYANG [address] 2022-07-03 2022-07-03 Transcribe Ayar, 1.2.840.1 [id number] Methodi 00:00:00 00:00:00 Orders Divyang C [address]14.1.[address] 3.430.2.7 Hospit a .3.675726 l .8 2022-07-03 2022-07-03 Transcribe Ayar, 1.2.840.1 [id number] Methodi 00:00:00 00:00:00 Orders Divyang C [address]444.1.[address] 3.430.2.7 Hospit a .3.493124 l .8 2022-05-23 2022-05-24 Outpatient nullFlavo MNA [id number] [facility] 18:15:00 04:59:59 r Neurology 05 l Qiana Ragland 2022-05-23 2022-05-23 Outpatient RATNA Gallegos [id number] 13:15:00 23:59:59 Minesh Wyatt Andrei 2022-05-23 2022-05-23 Outpatient MHIE DANIAIE [id number] [facility] 13:15:00 13:15:00 05 jef Obie 2022-04-29 2022-04-29 Outpatient [facility] [id number] [place] 10:00:00 10:00:00 [facility] 2022-04-10 2022-04-11 Outpatient nullFlavo MNA [id number] [facility] 13:15:00 04:59:59 r Neurology 04 l Qiana Ragland 2022-04-10 2022-04-10 Outpatient RATNA Gallegos [id number] 08:15:00 23:59:59 Minesh Rigoberto Andrei 2022-04-10 2022-04-10 Outpatient MHIE MHIE [id number] Memoria 08:15:00 08:15:00 04 jef Ragland 2022-03-10 2022-03-11 Outpatient nullFlavo MNA [id number] [facility] 16:30:00 04:59:59 r Neurology 03 l Qiana Ragland 2022-03-10 2022-03-10 [id number] 11:30:00 23:59:59 Minesh Andrei 2022-03-10 2022-03-10 Outpatient MHIE MHIE [id number] [facility] 11:30:00 11:30:00 03 jef Ragland 2022-02-19 2022-02-19 Ambulatory nullFlavo MNA [id number] [facility] 20:15:00 20:15:00 Pre-Reg r Neurology 02 l Catron [place] 2022-02-19 2022-02-19 Outpatient MHIE MHIE [id number] [facility]oria 15:15:00 15:15:00 02 jef Obie 2022-02-19 2022-02-19 Outpatient GOLD GallegosSCHMELIA MHMISCHER [id number] 15:15:00 15:15:00 Minesh Andrei 2022-01-13 2022-01-13 Office ESPERANZA Connell [facility] 1.2.840.114 [id number] [place] 10:00:00 10:15:00 Visit Arash SAMPSON [id number] [facility] 9.2.7.2.686 [facility] [id number] 2022-01-06 2022-01-06 Ambulatory nullFlavo [facility] [id number] Mem[facility] 14:20:00 14:20:00 Pre-Reg r Specialty 01 l [facility] juan m Anil 2022-01-06 2022-01-06 Outpatient PERLITA Montelongo MG [id number] 09:20:00 09:20:00 Soha 2022-01-01 2022-01-01 Telephonic ESPERANZA Connell 1.2.840.114 [id number] [place] 07:45:00 08:52:16 Encounter Arash BROTHERS [id number] [facility] 9.2.7.2.686 [id number] 2021-12-30 2021-12-30 Outpatient MHIE MHIE [id number] [facility] 09:20:00 09:20:00 jef Ragland 2021-12-18 2021-12-18 Inpatient ANISA TjTRINI wells OUTD [id number] [facility] 05:16:00 05:16:00 Ortiz 70 [facility] 2021-12-04 2021-12-04 Telephonic Ko [facility] 1.2.840.114 [id number] [place] 07:45:00 08:47:54 Encounter Arash MAGGIE [id number] [facility] [id number] 2021-11-20 2021-11-21 Inpatient HECTOR AndrewsCL INTE.02 [id number] [facility] 14:27:00 13:39:00 [facility] [facility] 2021-11-18 2021-11-18 Office KO [facility] 1.2.840.114 [id number] [place] 10:00:00 10:15:00 Visit ARASH SAMPSON [id number] [facility] 9.2.7.2.686 [facility] [id number] 2021-11-08 2021-11-11 Inpatient nullFlavo [facility] [id number] Memoria 06:30:00 18:32:00 r Obie 55 [facility] 2021-11-08 2021-11-11 Out[place] [id number] 00:30:00 12:32:00 Saliluis 55 [facility] 2021-11-08 2021-11-08 Outpatient [place], [place] [id number] 00:30:00 00:30:00 Salim 54 [place] 2021-11-06 2021-11-06 Office Ko [facility] [id number] [place] 10:45:00 11:24:42 Visit Arash BROTHERS [id number] [facility] [id number] 2021-11-04 2021-11-05 Outpatient nullFlavo MG [facility] 55 [id number] Memoria 15:40:00 05:59:59 r Specialty 00 l [facility] mcgowan Keene 2021-11-04 2021-11-04 Outpatient Reginald MG MG [id number] 09:40:00 23:59:59 Soha L 00 2021-11-04 2021-11-04 Outpatient MHIE IE [id number] Memoria 09:40:00 09:40:00 00 jef Ragland 2021-10-11 2021-10-22 Inpatient nullFlavo [facility] [id number] Memoria 16:31:00 23:05:00 gloria Ragland [facility] 2021-10-11 2021-10-22 Outpatient Tate, MHSE MHSE [id number] 10:31:00 17:05:00 Darius 2021-10-11 2021-10-11 Outpatient Ko, MHSE MHSE [id number] 13:30:00 13:30:00 Arash Myrtle Eulalio 2021-10-11 2021-10-11 Outpatient Bianca, MHSE MHSE [id number] 10:31:00 10:31:00 Sasha 2021-10-11 2021-10-11 Outpatient Tate, MHSE MHSE [id number] 10:31:00 10:31:00 Darius 2021-10-11 2021-10-11 Outpatient Bianca, MHSE MHSE [id number] 10:31:00 10:31:00 Sasha 2021-09-27 2021-09-30 Inpatient nullFlavo [facility] [id number] Memoria 22:11:44 21:55:00 gloria Ragland [facility] 2021-09-27 2021-09-30 Outpatient Bianca, MHSE MHSE [id number] 16:11:44 15:55:00 Sasha 2021-09-27 2021-09-27 Outpatient Bianca, MHSE MHSE [id number] 16:11:44 16:11:44 Sasha 2021-09-27 2021-09-27 Emergency E ROSIE, MHSE MHSE 7502 MH 16:11:00 16:11:00 [facility] a [facility] 2021-07-16 2021-07-16 Office ESPERANZA [facility] [id number] [place] 09:51:23 10:45:55 Visit [facility] [id number] Cel[place] lang [place] [address] [id number] 2021-07-02 2021-07-02 [facility] [id number] Memoria 14:10:00 22:16:00 Surgery gloria Ragland 00 l [facility] 2021-07-02 2021-07-02 Outpatient Ko [facility] [id number] 175 09:10:00 17:16:00 Arash Tsai 2021-07-02 2021-07-02 Outpatient Ko [facility] [id number] 09:10:00 17:16:00 Arash Tsai 2021-06-28 2021-06-28 Office Ko [facility] [id number] [place] 09:49:14 10:45:59 Visit [facility] [id number] He alth [place] 1 [id number] [id number] 2021-06-16 2021-06-16 Outpatient PRIV PRIV [id number] 9-2 [facility] 00:00:00 00:00:00 [id number] Medica l Results Test Description Test Time [...] x10 3/uL 0.0-0.1 N NRBC#) BASIC METABOLIC [id number] 15:06:00 Test Item Value Reference Range Interpretation [...] code = 8.4 mg/dL 8.0-10.5 N CA) [id number] 12:54:00 Test Item Value Reference Range Interpretation Comments ACT-ISTAT (test code 273 SEC 74-137 H Perform ed 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 = ACTI) 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 BASIC METABOLIC [id number] 12:47:00 Test Item Value Reference Range Interpretation [...] = 8.4 mg/dL 8.0-10.5 N CA) PROTHROMBIN [id number] 12:47:00 Test Item Value Reference Range Interpretation [...] (to prevent recurrent infar ct). 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 [facility] BASIC METABOLIC [id number] 07:56:00 Test Item Value Reference Range Interpretation [...] 8.7 mg/dL 8.0-10.5 N CA) CBC W/AUTO [id number] 06:58:00 Test Item Value Reference Range Interpretation [...] = 0.00 x10 3/uL 0.0-0.1 N NRBC#) [id number] 13:45:00 Test Item Value Reference Range Interpretation Comments ACT-ISTAT (test code 261 SEC 74-137 H Perform ed 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 = ACTI) 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 [facility] - XR CHEST 1 [id number] 00:00:00 [facility]RE[facility] : 1945 Sex: F FAX: Jayy Jefferson MD [phone] [place]: St: ADM FAX: Ortiz Krishnan MD [phone] FAX: Alan Toussaint [phone] Name: EDUARDO LA [facility] : 1945 Age/S: 76/F [address] [place] [address] Unit #: [id number] Loc: [place] [address] Phys: Alan Toussaint [facility] Acct: [id number] Dis Date: Status: ADM IN PHONE #: [phone] Exam Date: 11/20/2021 1558 FAX #: [phone] Reason: WATCHMAN EXAMS: CPT CODE: [id number] XR CHEST 1 V 01465 PROCEDURE INFORMATION: Exam: XR Chest Exam date [...] tissues: No acute abnormality in the chest. IMP RESSION: No acute abnormality in the chest. No radiopaque device is seen in the chest. at 1604 Reported and signed by: Brooke Beaver M.D. CC: Jayy Linda MD; Ortiz Domingo MD; Alan Toussaint Technologist: XAVI Espinoza) Trnscrd Date/Time/By: 11/20/2021 (7021) : By: [email or web address] Orig Print D/T: S: 11/20/2021 (4315) PAGE 1 Signed [id number] 15:14:00 Test Item Value Reference Range Interpretation Comments PREALBUMIN (test code = PREALB) 12.4 mg/dL 16.0-40.0 L BASIC METABOLIC [id number] 15:14:00 Test Item Value Reference Range Interpretation [...] = 8.3 mg/dL 8.0-10.5 N CA) PROTHROMBIN [id number] 15:06:00 Test Item Value Reference Range Interpretation [...] (to prevent recurrent infar ct). CBC W/AUTO [id number] 14:51:00 Test Item Value Reference Range Interpretation [...] 0.0-0.1 N NRBC#) - XR CHEST 2 [id number] 00:00:00 [facility] : 1945 Sex: F FAX: Jayy Jefferson MD [phone] [place]: St: PRE FAX: Ortiz Krishnan MD [phone] ---- Name: DAVID LA [facility] : 1945 Age/S: 76/F [address] [place] [address] Blvd Unit #: [id number] Loc: [place] [address] Phys: Ortiz Domingo MD Acct: [id number] Dis Date: Status: PRE SDC PHONE #: Exam Date: 11/18/2021 1559 FAX #: [phone] Reason: PREOP EXAMS: CPT CODE: [id number] XR CHEST 2 V 09934 PROCEDURE INFORMATION: Exam: XR Chest Exam date and time: 11/18/2021 3:54 PM Age: 76 years old Clinical indication: Other: Preop TECHNIQUE: Imaging protocol: XR of the chest. Views: 2 views. COMPARISON: No relevant prior studies available. The heart is normal in size. The thoracic aortais mildly tortuous and contains atherosclerotic calcification. The lungs appear clear. The pulmonaryvasculature is normal in caliber. No acute pleural space abnormalities are detected. IMPRESSION: 1.No radiographic evidence of acute cardiopulmonary disease. SL: 131 at 4274 Reported and signed by: Saad Arboleda M.D. CC: Jayy Linda MD; Ortiz Domingo MD Technologist: RT Bayron(R) Trnscrd Date/Time/By: 11/18/2021 (4307) : By: [email or web address] Orig Print D/T: S: 11/18/2021 (6309) PAGE 1 Signed [facility]2022-02-28 12:44:00 Test Item Value Reference Range Interpretation Comments Glucose Lvl (test code = Glucose Lvl) 122 70-99 [facility]2022-02-28 12:44:00 Test Item Value Reference Range Interpretation Comments BUN (test code = BUN) 16 7-22 [facility] [id number] 12:44:00 Test Item Value Reference Range Interpretation Comments Creatinine Lvl (test code = Creatinine 1.09 0.50-1.40 Lvl) [facility] [id number] 12:44:00 Test Item Value Reference Range Interpretation Comments Sodium Lvl (test code = Sodium Lvl) 139 135-145 [place] 033772-02-28 12:44:00 Test Item Value Reference Range Interpretation Comments Potassium Lvl (test code = Potassium 3.7 3.5-5.1 Lvl) [place] 033772-02-28 12:44:00 Test Item Value Reference Range Interpretation Comments Chloride Lvl (test code = Chloride Lvl) 106 95-109 [place] 033772-02-28 12:44:00 Test Item Value Reference Range Interpretation Comments CO2 (test code = CO2) 30 24-32 [place] 033772-02-28 12:44:00 Test Item Value Reference Range Interpretation Comments Calcium Lvl (test code = Calcium Lvl) 8.6 8.5-10.5 [place] 033772-02-28 12:44:00 Test Item Value Reference Range Interpretation Comments AGAP (test code = AGAP) 6.7 10.0-20.0 [place] 033772-02-28 12:44:00 Test Item Value Reference Range Interpretation Comments eGFR (test code = eGFR) 49 [id number] 12:44:00 Test Item Value Reference Range Interpretation Comments PTT (test code = PTT) 49.7 s 22.9-35.8 [place] 185092-02-27 19:08:00 Test Item Value Reference Range Interpretation Comments PTT (test code = PTT) 72.2 s 22.9-35.8 [facility]2022-02-27 12:39:00 Test Item Value Reference Range Interpretation Comments Ferritin Lvl (test code = Ferritin Lvl) 25 5-204 [facility]2022-02-27 12:39:00 Test Item Value Reference Range Interpretation Comments Phosphorus (test code = Phosphorus) 3.5 2.5-4.5 [facility]2022-02-27 12:39:00 Test Item Value Reference Range Interpretation Comments Magnesium Lvl (test code = Magnesium 1.7 1.8-2.4 Lvl) [place] 033772-02-27 12:39:00 Test Item Value Reference Range Interpretation Comments Glucose Lvl (test code = Glucose Lvl) 104 70-99 [place] 033772-02-27 12:39:00 Test Item Value Reference Range Interpretation Comments BUN (test code = BUN) 16 7-22 [place] 033772-02-27 12:39:00 Test Item Value Reference Range Interpretation Comments Creatinine Lvl (test code = Creatinine 0.99 0.50-1.40 Lvl) [place] 033772-02-27 12:39:00 Test Item Value Reference Range Interpretation Comments Sodium Lvl (test code = Sodium Lvl) 139 135-145 [place] 033772-02-27 12:39:00 Test Item Value Reference Range Interpretation Comments Potassium Lvl (test code = Potassium 3.2 3.5-5.1 Lvl) [address]02-27 12:39:00 Test Item Value Reference Range Interpretation Comments Chloride Lvl (test code = Chloride Lvl) 106 95-109 [place] 033772-02-27 12:39:00 Test Item Value Reference Range Interpretation Comments CO2 (test code = CO2) 31 24-32 [place] 033772-02-27 12:39:00 Test Item Value Reference Range Interpretation Comments Calcium Lvl (test code = Calcium Lvl) 8.6 8.5-10.5 [place] 033772-02-27 12:39:00 Test Item Value Reference Range Interpretation Comments Total Protein (test code = Total 6.2 6.4-8.4 Protein) [place] 033772-02-27 12:39:00 Test Item Value Reference Range Interpretation Comments Albumin Lvl (test code = Albumin Lvl) 2.5 3.5-5.0 [place] [address]-02-27 12:39:00 Test Item Value Reference Range Interpretation Comments ALT (test code = ALT) 64 See_Comment [Auto mated message] The system which ge nerated this result transmit shubham reference range : <=65. The reference range was not used to interpr et this result as halina l/abnormal. [place] [address]-02-27 12:39:00 Test Item Value Reference Range Interpretation Comments AST (test code = AST) 31 See_Comment [Auto mated message] The system which ge nerated this result transmit shubham reference range : <=37. The reference range was not used to interpr et this result as halina l/abnormal. [place] [address]-02-27 12:39:00 Test Item Value Reference Range Interpretation Comments Alk Phos (test code = Alk Phos) 135 39-136 [place] 033772-02-27 12:39:00 Test Item Value Reference Range Interpretation Comments Bili Total (test code = Bili Total) 0.3 0.2-1.3 [place] 033772-02-27 12:39:00 Test Item Value Reference Range Interpretation Comments AGAP (test code = AGAP) 5.2 10.0-20.0 [place] 033772-02-27 12:39:00 Test Item Value Reference Range Interpretation Comments B/C Ratio (test code = B/C Ratio) 16 1 6-25 [place] 033772-02-27 12:39:00 Test Item Value Reference Range Interpretation Comments Globulin (test code = Globulin) 3.7 2.7-4.2 [place] 033772-02-27 12:39:00 Test Item Value Reference Range Interpretation Comments A/G Ratio (test code = A/G Ratio) 0.7 1 0.7-1.6 [place] [address]-02-27 12:39:00 Test Item Value Reference Range Interpretation Comments eGFR (test code = eGFR) 55 [place] 185092-02-27 12:39:00 Test Item Value Reference Range Interpretation Comments PTT (test code = PTT) 82.2 s 22.9-35.8 [place] [address]-02-27 12:39:00 Test Item Value Reference Range Interpretation Comments WBC (test code = WBC) 5.5 3.7-10.4 [place] [address]-02-27 12:39:00 Test Item Value Reference Range Interpretation Comments RBC (test code = RBC) 3.77 4.20-5.40 [place] [address]-02-27 12:39:00 Test Item Value Reference Range Interpretation Comments Hgb (test code = Hgb) 9.7 12.0-16.0 [place] [address]-02-27 12:39:00 Test Item Value Reference Range Interpretation Comments Hct (test code = Hct) 30.2 36.0-48.0 [place] [address]-02-27 12:39:00 Test Item Value Reference Range Interpretation Comments MCV (test code = MCV) 79.9 80.0-98.0 [place] [address]-02-27 12:39:00 Test Item Value Reference Range Interpretation Comments MCH (test code = MCH) 25.7 pg 27.0-31.0 [place] [address]-02-27 12:39:00 Test Item Value Reference Range Interpretation Comments MCHC (test code = MCHC) 32.2 32.0-36.0 [place] [address]-02-27 12:39:00 Test Item Value Reference Range Interpretation Comments RDW (test code = RDW) 17.8 11.5-14.5 [place] [address]-02-27 12:39:00 Test Item Value Reference Range Interpretation Comments Platelet (test code = Platelet) 224 133-450 [place] 185092-02-27 12:39:00 Test Item Value Reference Range Interpretation Comments MPV (test code = MPV) 7.8 7.4-10.4 [place] [address]-02-27 12:39:00 Test Item Value Reference Range Interpretation Comments Segs (test code = Segs) 56.4 45.0-75.0 [place] [address]-02-27 12:39:00 Test Item Value Reference Range Interpretation Comments Lymphocytes (test code = Lymphocytes) 28.2 20.0-40.0 [place] [address]-02-27 12:39:00 Test Item Value Reference Range Interpretation Comments Monocytes (test code = Monocytes) 14.2 2.0-12.0 [place] [address]-02-27 12:39:00 Test Item Value Reference Range Interpretation Comments Basophils (test code = 1.2 See_Comment [Aut omated message] The Basophils) system which ge nerated this result tra nsmitted reference range : <=1.0. The reference r shin was not used to int erpret this result as normal/abnormal . [place] [address]-02-27 12:39:00 Test Item Value Reference Range Interpretation Comments Neutrophils # (test code = Neutrophils 3.1 1.5-8.1 #) [place] [address]-02-27 12:39:00 Test Item Value Reference Range Interpretation Comments Lymphocytes # (test code = Lymphocytes 1.5 1.0-5.5 #) [id number] 12:39:00 Test Item Value Reference Range Interpretation Comments Monocytes # (test code 0.8 See_Comment [Aut omated message] The = Monocytes #) system which generated this result tra nsmitted reference range : <=0.8. The reference r shin was not used to int erpret this result as normal/abnormal . [place] [address]-02-27 12:39:00 Test Item Value Reference Range Interpretation Comments Basophils # (test code 0.1 See_Comment [Aut omated message] The = Basophils #) system which generated this result tra nsmitted reference range : <=0.2. The reference r shin was not used to int erpret this result as normal/abnormal . [facility] NorthwestCrlqtmfTGUARTILZC5988-41-53 12:39:00 Test Item Value Reference Range Interpretation Comments C-REACTIVE PROTEIN (test code = 6.6 C-REACTIVE PROTEIN) [place] [address]-02-27 04:45:00 Test Item Value Reference Range Interpretation Comments PTT (test code = PTT) 198.0 s 22.9-35.8 [place] 033772-02-26 19:48:00 Test Item Value Reference Range Interpretation Comments Glucose Lvl (test code = Glucose Lvl) 109 70-99 [place] 033772-02-26 19:48:00 Test Item Value Reference Range Interpretation Comments BUN (test code = BUN) 12 7-22 [place] 033772-02-26 19:48:00 Test Item Value Reference Range Interpretation Comments Creatinine Lvl (test code = Creatinine 1.13 0.50-1.40 Lvl) [place] 033772-02-26 19:48:00 Test Item Value Reference Range Interpretation Comments Sodium Lvl (test code = Sodium Lvl) 137 135-145 [place] 033772-02-26 19:48:00 Test Item Value Reference Range Interpretation Comments Potassium Lvl (test code = Potassium 3.8 3.5-5.1 Lvl) [place] 033772-02-26 19:48:00 Test Item Value Reference Range Interpretation Comments Chloride Lvl (test code = Chloride Lvl) 103 95-109 [place] 033772-02-26 19:48:00 Test Item Value Reference Range Interpretation Comments CO2 (test code = CO2) 32 24-32 [place] 033772-02-26 19:48:00 Test Item Value Reference Range Interpretation Comments Calcium Lvl (test code = Calcium Lvl) 8.4 8.5-10.5 [place] 033772-02-26 19:48:00 Test Item Value Reference Range Interpretation Comments Total Protein (test code = Total 6.4 6.4-8.4 Protein) [place] 033772-02-26 19:48:00 Test Item Value Reference Range Interpretation Comments Albumin Lvl (test code = Albumin Lvl) 2.8 3.5-5.0 [place] 033772-02-26 19:48:00 Test Item Value Reference Range Interpretation Comments ALT (test code = ALT) 94 See_Comment [Auto mated message] The system which ge nerated this result transmit shubham reference range : <=65. The reference range was not used to interpr et this result as halina l/abnormal. [place] 033772-02-26 19:48:00 Test Item Value Reference Range Interpretation Comments AST (test code = AST) 69 See_Comment [Auto mated message] The system which ge nerated this result transmit shubham reference range : <=37. The reference range was not used to interpr et this result as halina l/abnormal. [place] 033772-02-26 19:48:00 Test Item Value Reference Range Interpretation Comments Alk Phos (test code = Alk Phos) 154 39-136 [place] 033772-02-26 19:48:00 Test Item Value Reference Range Interpretation Comments Bili Total (test code = Bili Total) 0.3 0.2-1.3 [place] [address]-02-26 19:48:00 Test Item Value Reference Range Interpretation Comments AGAP (test code = AGAP) 5.8 10.0-20.0 [place] 033772-02-26 19:48:00 Test Item Value Reference Range Interpretation Comments B/C Ratio (test code = B/C Ratio) 11 1 6-25 [place] [address]-02-26 19:48:00 Test Item Value Reference Range Interpretation Comments Globulin (test code = Globulin) 3.6 2.7-4.2 [place] 033772-02-26 19:48:00 Test Item Value Reference Range Interpretation Comments A/G Ratio (test code = A/G Ratio) 0.8 1 0.7-1.6 [place] 033772-02-26 19:48:00 Test Item Value Reference Range Interpretation Comments eGFR (test code = eGFR) 47 [place] 033772-02-26 12:38:00 Test Item Value Reference Range Interpretation Comments Magnesium Lvl (test code = Magnesium 1.8 1.8-2.4 Lvl) [place] 033772-02-26 12:38:00 Test Item Value Reference Range Interpretation Comments Phosphorus (test code = Phosphorus) 3.3 2.5-4.5 [place] 033772-02-26 12:38:00 Test Item Value Reference Range Interpretation Comments Procalcitonin Lvl (test 0.06 See_Comment [Au tomated message] code = Procalcitonin Lvl) e system which generated this result transmitted ref erence range: <=0.10. The reference range was not used to interpr et this result as normal/abnormal . [facility] NorthwestLmuuwdhROANOJEDWV1264-70-70 12:38:00 Test Item Value Reference Range Interpretation Comments Digoxin Lvl (test code = Digoxin Lvl) 1.3 0.8-2.0 [place] 033772-02-26 07:36:58 Test Item Value Reference Range Interpretation Comments Glucose Lvl (test code = Glucose Lvl) 103 70-99 [place] 033772-02-26 07:36:58 Test Item Value Reference Range Interpretation Comments BUN (test code = BUN) 14 7-22 [place] 033772-02-26 07:36:58 Test Item Value Reference Range Interpretation Comments Creatinine Lvl (test code = Creatinine 0.97 0.50-1.40 Lvl) [place] 033772-02-26 07:36:58 Test Item Value Reference Range Interpretation Comments Sodium Lvl (test code = Sodium Lvl) 138 135-145 [place] 033772-02-26 07:36:58 Test Item Value Reference Range Interpretation Comments Potassium Lvl (test code = Potassium 3.6 3.5-5.1 Lvl) [place] 033772-02-26 07:36:58 Test Item Value Reference Range Interpretation Comments Chloride Lvl (test code = Chloride Lvl) 102 95-109 [place] 033772-02-26 07:36:58 Test Item Value Reference Range Interpretation Comments CO2 (test code = CO2) 31 24-32 [place] 033772-02-26 07:36:58 Test Item Value Reference Range Interpretation Comments Calcium Lvl (test code = Calcium Lvl) 8.6 8.5-10.5 [place] 033772-02-26 07:36:58 Test Item Value Reference Range Interpretation Comments Total Protein (test code = Total 6.5 6.4-8.4 Protein) [place] 033772-02-26 07:36:58 Test Item Value Reference Range Interpretation Comments Albumin Lvl (test code = Albumin Lvl) 2.8 3.5-5.0 [place] 033772-02-26 07:36:58 Test Item Value Reference Range Interpretation Comments ALT (test code = ALT) 131 See_Comment [Auto mated message] The system which ge nerated this result transmit shubham reference range : <=65. The reference range was not used to interpr et this result as halina l/abnormal. [place] 033772-02-26 07:36:58 Test Item Value Reference Range Interpretation Comments AST (test code = AST) 150 See_Comment [Auto mated message] The system which ge nerated this result transmit shubham reference range : <=37. The reference range was not used to interpr et this result as halina l/abnormal. [place] 033772-02-26 07:36:58 Test Item Value Reference Range Interpretation Comments Alk Phos (test code = Alk Phos) 172 39-136 [place] 033772-02-26 07:36:58 Test Item Value Reference Range Interpretation Comments Bili Total (test code = Bili Total) 0.3 0.2-1.3 [place] 033772-02-26 07:36:58 Test Item Value Reference Range Interpretation Comments AGAP (test code = AGAP) 8.6 10.0-20.0 [place] 033772-02-26 07:36:58 Test Item Value Reference Range Interpretation Comments B/C Ratio (test code = B/C Ratio) 14 1 6-25 [facility] [id number] 07:36:58 Test Item Value Reference Range Interpretation Comments Globulin (test code = Globulin) 3.7 2.7-4.2 [facility] [id number] 07:36:58 Test Item Value Reference Range Interpretation Comments A/G Ratio (test code = A/G Ratio) 0.8 1 0.7-1.6 [facility] [id number] 07:36:58 Test Item Value Reference Range Interpretation Comments eGFR (test code = eGFR) 57 [facility]annCARDIAC [id number] 23:10:00 Test Item Value Reference Range Interpretation Comments HS Troponin I (test code = HS Troponin 676 I) [facility] [id number] 23:09:00 Test Item Value Reference Range Interpretation Comments Phosphorus (test code = Phosphorus) 4.0 2.5-4.5 [facility] [id number] 23:09:00 Test Item Value Reference Range Interpretation Comments Magnesium Lvl (test code = Magnesium 2.0 1.8-2.4 Lvl) [facility] CenterTcypbkiZEORVUWKXH4500-63-53 09:29:00 Test Item Value Reference Range Interpretation Comments Coronavirus (COVID-19) Detected MADELINE (test code = 4*ABN*(11/08/21 3:29 Coronavirus (COVID-19) AM) MADELINE) [facility] [id number] 09:29:00 Test Item Value Reference Range Interpretation Comments UA Color (test code = Yellow *NA*(11/08/21 UA Color) 3:29 AM) [facility] [id number] 09:29:00 Test Item Value Reference Range Interpretation Comments UA Turbidity (test code = Clear (11/08/21 3:29 UA Turbidity) AM) [facility] [id number] 09:29:00 Test Item Value Reference Range Interpretation Comments UA Spec Grav (test code = UA Spec 1.020 1 Grav) [facility] [id number] 09:29:00 Test Item Value Reference Range Interpretation Comments UA pH (test code = UA pH) 6.0 1 5.0-8.0 [facility] [id number] 09:29:00 Test Item Value Reference Range Interpretation Comments UA Protein (test code = UA Protein) 30 mg/dL [facility] [id number] 09:29:00 Test Item Value Reference Range Interpretation Comments UA Glucose (test code Negative (11/08/21 3:29 = UA Glucose) AM) [facility] [id number] 09:29:00 Test Item Value Reference Range Interpretation Comments UA Ketones (test code Negative *NA*(11/08/21 = UA Ketones) 3:29 AM) [facility] AND [id number] 09:29:00 Test Item Value Reference Range Interpretation Comments UA Bili (test code = Negative *NA*(11/08/21 UA Bili) 3:29 AM) [facility] AND [id number] 09:29:00 Test Item Value Reference Range Interpretation Comments UA Blood (test code = Negative (11/08/21 3:29 UA Blood) AM) [facility] AND [id number] 09:29:00 Test Item Value Reference Range Interpretation Comments UA Urobilinogen (test code = UA 2.0 0.1-1.0 Urobilinogen) [facility] AND [id number] 09:29:00 Test Item Value Reference Range Interpretation Comments UA Nitrite (test code Negative (11/08/21 3:29 = UA Nitrite) AM) [facility] [id number] 09:29:00 Test Item Value Reference Range Interpretation Comments UA Leuk Est (test code Trace *ABN*(11/08/21 = UA Leuk Est) 3:29 AM) [facility] [id number] 09:29:00 Test Item Value Reference Range Interpretation Comments UA Sq Epi (test code = UA Sq Moderate /LPF Epi) [facility] [id number] 09:29:00 Test Item Value Reference Range Interpretation Comments UA WBC (test code = 5 See_Comment [Automa shubham message] The UA WBC) system which ge nerated this result transmit shubham reference range : <=5. The reference range was not used to interpr et this result as halina l/abnormal. [facility] [id number] 09:29:00 Test Item Value Reference Range Interpretation Comments UA RBC (test code = 3 See_Comment [Automa shubham message] The UA RBC) system which ge nerated this result transmit shubham reference range : <=2. The reference range was not used to interpr et this result as halina l/abnormal. [facility] [id number] 09:29:00 Test Item Value Reference Range Interpretation Comments UA Mucus (test code = UA Mucus) Few /LPF [facility] CenterannBACTERIAL - [id number] 08:10:00 Test Item Value Reference Range Interpretation Comments MRSA by PCR (test Negative (11/08/21 2:10 code = MRSA by PCR) AM) [facility] [id number] 08:10:00 Test Item Value Reference Range Interpretation Comments BNP (test code = BNP) 134 [facility] [id number] 08:10:00 Test Item Value Reference Range Interpretation Comments HS Troponin I Baseline (test code = HS 612 Troponin I Baseline) [facility] [id number] 08:10:00 Test Item Value Reference Range Interpretation Comments HS Troponin I 1 Hr (test code = HS 599 Troponin I [address]) [facility] [id number] 08:10:00 Test Item Value Reference Range Interpretation Comments HS Troponin I 0 to 1 Hour Delta (test -13 code = HS Troponin I 0 to [address]) [facility]annCHEM [id number] 08:10:00 Test Item Value Reference Range Interpretation Comments Procalcitonin Lvl (test 0.05 See_Comment [Au tomated message] code = Procalcitonin Lvl) Th e system which generated this result transmitted ref erence range: <=0.10. The reference range was not used to interpr et this result as normal/abnormal . [facility] CenterAuuxagyBMJYHAAIKM9415-16-18 08:10:00 Test Item Value Reference Range Interpretation Comments PT (test code = PT) 17.4 s 12.0-14.7 [facility] CenterUsretpjYQDGEGQGSH2467-93-65 08:10:00 Test Item Value Reference Range Interpretation Comments INR (test code = INR) 1.44 1 0.85-1.17 [facility]KbfmfrfNJOCNXYRLD9797-78-67 08:10:00 Test Item Value Reference Range Interpretation Comments WBC (test code = WBC) 5.8 3.7-10.4 [place] [address]-02-25 08:10:00 Test Item Value Reference Range Interpretation Comments RBC (test code = RBC) 4.11 4.20-5.40 [place] [address]-02-25 08:10:00 Test Item Value Reference Range Interpretation Comments Hgb (test code = Hgb) 10.3 12.0-16.0 [place] [address]-02-25 08:10:00 Test Item Value Reference Range Interpretation Comments Hct (test code = Hct) 32.9 36.0-48.0 [place] [address]-02-25 08:10:00 Test Item Value Reference Range Interpretation Comments MCV (test code = MCV) 80.1 80.0-98.0 [place] [address]-02-25 08:10:00 Test Item Value Reference Range Interpretation Comments MCH (test code = MCH) 25.0 pg 27.0-31.0 [place] [address]-02-25 08:10:00 Test Item Value Reference Range Interpretation Comments MCHC (test code = MCHC) 31.2 32.0-36.0 [place] [address]-02-25 08:10:00 Test Item Value Reference Range Interpretation Comments RDW (test code = RDW) 17.6 11.5-14.5 [place] [address]-02-25 08:10:00 Test Item Value Reference Range Interpretation Comments Platelet (test code = Platelet) 269 133-450 [place] [address]-02-25 08:10:00 Test Item Value Reference Range Interpretation Comments MPV (test code = MPV) 7.8 7.4-10.4 [place] [address]-02-25 08:10:00 Test Item Value Reference Range Interpretation Comments Segs (test code = Segs) 72.6 45.0-75.0 [place] [address]-02-25 08:10:00 Test Item Value Reference Range Interpretation Comments Lymphocytes (test code = Lymphocytes) 16.8 20.0-40.0 [place] [address]-02-25 08:10:00 Test Item Value Reference Range Interpretation Comments Monocytes (test code = Monocytes) 9.5 2.0-12.0 [facility] HospitalIfolavsFZRWREXCJU7177-20-73 08:10:00 Test Item Value Reference Range Interpretation Comments Basophils (test code = 1.1 See_Comment [Aut omated message] The Basophils) system which ge nerated this result tra nsmitted reference range : <=1.0. The reference r shin was not used to int erpret this result as normal/abnormal . [facility] HospitalFrrngphYFSWDSQLTH8610-90-62 08:10:00 Test Item Value Reference Range Interpretation Comments Neutrophils # (test code = Neutrophils 4.2 1.5-8.1 #) [facility] HospitalUfrstvqOSRONXIKOT7260-61-97 08:10:00 Test Item Value Reference Range Interpretation Comments Lymphocytes # (test code = Lymphocytes 1.0 1.0-5.5 #) [facility] HospitalNodgzljCKPMVRTOKC7353-79-69 08:10:00 Test Item Value Reference Range Interpretation Comments Monocytes # (test code 0.6 See_Comment [Aut omated message] The = Monocytes #) system which generated this result tra nsmitted reference range : <=0.8. The reference r shin was not used to int erpret this result as normal/abnormal . [facility] H[id number] 08:10:00 Test Item Value Reference Range Interpretation Comments Basophils # (test code 0.1 See_Comment [Aut omated message] The = Basophils #) system which generated this result tra nsmitted reference range : <=0.2. The reference r shin was not used to int erpret this result as normal/abnormal . [facility] [id number] 16:36:00 Test Item Value Reference Range Interpretation Comments Result 2 (Urine Culture) See Result Comment (test code = Result 2 (Urine Culture)) [facility] HospitalHcchnoeCTNDTQHNHW6564-23-15 10:23:00 Test Item Value Reference Range Interpretation Comments WBC (test code = WBC) 6.8 3.7-10.4 [facility] HospitalSeqseukIHVJPHXKCC6661-99-93 10:23:00 Test Item Value Reference Range Interpretation Comments RBC (test code = RBC) 3.46 4.20-5.40 [facility] HospitalWnphetoJQXMXHLZBN7405-01-24 10:23:00 Test Item Value Reference Range Interpretation Comments Hgb (test code = Hgb) 9.1 12.0-16.0 [place] [address]-02-08 10:23:00 Test Item Value Reference Range Interpretation Comments Hct (test code = Hct) 28.9 36.0-48.0 [place] [address]-02-08 10:23:00 Test Item Value Reference Range Interpretation Comments MCV (test code = MCV) 83.6 80.0-98.0 [place] [address]-02-08 10:23:00 Test Item Value Reference Range Interpretation Comments MCH (test code = MCH) 26.4 pg 27.0-31.0 [place] [address]-02-08 10:23:00 Test Item Value Reference Range Interpretation Comments MCHC (test code = MCHC) 31.6 32.0-36.0 [place] [address]-02-08 10:23:00 Test Item Value Reference Range Interpretation Comments RDW (test code = RDW) 18.2 11.5-14.5 [place] [address]-02-08 10:23:00 Test Item Value Reference Range Interpretation Comments Platelet (test code = Platelet) 400 133-450 [facility] HospitalLhqyzklITPLGWZPIE6259-66-29 10:23:00 Test Item Value Reference Range Interpretation Comments MPV (test code = MPV) 7.2 7.4-10.4 [facility]2022-02-07 10:52:00 Test Item Value Reference Range Interpretation Comments Glucose Lvl (test code = Glucose Lvl) 96 70-99 [facility]2022-02-07 10:52:00 Test Item Value Reference Range Interpretation Comments BUN (test code = BUN) 11 7-22 [place] 033772-02-07 10:52:00 Test Item Value Reference Range Interpretation Comments Creatinine Lvl (test code = Creatinine 0.89 0.50-1.40 Lvl) [place] 033772-02-07 10:52:00 Test Item Value Reference Range Interpretation Comments Sodium Lvl (test code = Sodium Lvl) 138 135-145 [facility]2022-02-07 10:52:00 Test Item Value Reference Range Interpretation Comments Potassium Lvl (test code = Potassium 4.0 3.5-5.1 Lvl) [facility]2022-02-07 10:52:00 Test Item Value Reference Range Interpretation Comments Chloride Lvl (test code = Chloride Lvl) 102 95-109 [place] 033772-02-07 10:52:00 Test Item Value Reference Range Interpretation Comments CO2 (test code = CO2) 32 24-32 [facility]2022-02-07 10:52:00 Test Item Value Reference Range Interpretation Comments AGAP (test code = AGAP) 8.0 10.0-20.0 [facility]2022-02-07 10:52:00 Test Item Value Reference Range Interpretation Comments Calcium Lvl (test code = Calcium Lvl) 8.2 8.5-10.5 [facility]2022-02-07 10:52:00 Test Item Value Reference Range Interpretation Comments B/C Ratio (test code = B/C Ratio) 12 1 6-25 [place] 033772-02-07 10:52:00 Test Item Value Reference Range Interpretation Comments Total Protein (test code = Total 5.9 6.4-8.4 Protein) [facility]2022-02-07 10:52:00 Test Item Value Reference Range Interpretation Comments ALT (test code = ALT) 19 See_Comment [Auto mated message] The system which ge nerated this result transmit shubham reference range : <=65. The reference range was not used to interpr et this result as halina l/abnormal. [facility]2022-02-07 10:52:00 Test Item Value Reference Range Interpretation Comments AST (test code = AST) 11 See_Comment [Auto mated message] The system which ge nerated this result transmit shubham reference range : <=37. The reference range was not used to interpr et this result as halina l/abnormal. [place] 033772-02-07 10:52:00 Test Item Value Reference Range Interpretation Comments Alk Phos (test code = Alk Phos) 99 39-136 [facility]2022-02-07 10:52:00 Test Item Value Reference Range Interpretation Comments Bili Total (test code = Bili Total) 0.3 0.2-1.3 [place] 033772-02-07 10:52:00 Test Item Value Reference Range Interpretation Comments eGFR (test code = eGFR) 63 [facility]2022-02-07 10:52:00 Test Item Value Reference Range Interpretation Comments Albumin Lvl (test code = Albumin Lvl) 2.2 3.5-5.0 [facility]2022-02-07 10:52:00 Test Item Value Reference Range Interpretation Comments Globulin (test code = Globulin) 3.7 2.7-4.2 [facility]2022-02-07 10:52:00 Test Item Value Reference Range Interpretation Comments A/G Ratio (test code = A/G Ratio) 0.6 1 0.7-1.6 [facility]2022-02-06 10:05:00 Test Item Value Reference Range Interpretation Comments Glucose Lvl (test code = Glucose Lvl) 116 70-99 [facility]2022-02-06 10:05:00 Test Item Value Reference Range Interpretation Comments BUN (test code = BUN) 13 7-22 [facility]2022-02-06 10:05:00 Test Item Value Reference Range Interpretation Comments Creatinine Lvl (test code = Creatinine 0.95 0.50-1.40 Lvl) [facility]2022-02-06 10:05:00 Test Item Value Reference Range Interpretation Comments Sodium Lvl (test code = Sodium Lvl) 138 135-145 [facility]2022-02-06 10:05:00 Test Item Value Reference Range Interpretation Comments Potassium Lvl (test code = Potassium 3.9 3.5-5.1 Lvl) [facility]2022-02-06 10:05:00 Test Item Value Reference Range Interpretation Comments Chloride Lvl (test code = Chloride Lvl) 101 95-109 [facility]2022-02-06 10:05:00 Test Item Value Reference Range Interpretation Comments CO2 (test code = CO2) 32 24-32 [facility]2022-02-06 10:05:00 Test Item Value Reference Range Interpretation Comments AGAP (test code = AGAP) 8.9 10.0-20.0 [facility]2022-02-06 10:05:00 Test Item Value Reference Range Interpretation Comments Calcium Lvl (test code = Calcium Lvl) 8.4 8.5-10.5 [facility]2022-02-06 10:05:00 Test Item Value Reference Range Interpretation Comments eGFR (test code = eGFR) 58 [facility] HospitalUheilvrJVNJVUHSVV5118-40-82 10:05:00 Test Item Value Reference Range Interpretation Comments WBC (test code = WBC) 8.2 3.7-10.4 [facility] HospitalVuyguupUOOYNYSSRO9498-68-29 10:05:00 Test Item Value Reference Range Interpretation Comments RBC (test code = RBC) 3.43 4.20-5.40 [facility] HospitalWglvgkyYTYZXAVWRX2808-25-02 10:05:00 Test Item Value Reference Range Interpretation Comments Hgb (test code = Hgb) 9.1 12.0-16.0 [facility] HospitalYnstsjgCWVIBSKPBH2286-51-22 10:05:00 Test Item Value Reference Range Interpretation Comments Hct (test code = Hct) 28.5 36.0-48.0 [facility] HospitalImvpapyRBTENTWMDQ7633-48-05 10:05:00 Test Item Value Reference Range Interpretation Comments MCV (test code = MCV) 83.0 80.0-98.0 [place] [address]-02-06 10:05:00 Test Item Value Reference Range Interpretation Comments MCH (test code = MCH) 26.7 pg 27.0-31.0 [facility] HospitalPosnomrAWBRCQWPYJ9781-68-70 10:05:00 Test Item Value Reference Range Interpretation Comments MCHC (test code = MCHC) 32.1 32.0-36.0 [facility] HospitalHajrzxdGAOZXMPTDT3142-12-39 10:05:00 Test Item Value Reference Range Interpretation Comments RDW (test code = RDW) 17.9 11.5-14.5 [facility] HospitalDhgzxbtXNQUXDBZPL1901-83-26 10:05:00 Test Item Value Reference Range Interpretation Comments Platelet (test code = Platelet) 376 133-450 [facility] HospitalFwvjemoDGMDXRJLER3230-34-87 10:05:00 Test Item Value Reference Range Interpretation Comments MPV (test code = MPV) 7.0 7.4-10.4 [facility]2022-02-05 11:10:00 Test Item Value Reference Range Interpretation Comments Glucose Lvl (test code = Glucose Lvl) 109 70-99 [facility]2022-02-05 11:10:00 Test Item Value Reference Range Interpretation Comments BUN (test code = BUN) 14 7-22 [facility]2022-02-05 11:10:00 Test Item Value Reference Range Interpretation Comments Creatinine Lvl (test code = Creatinine 0.92 0.50-1.40 Lvl) [place] 033772-02-05 11:10:00 Test Item Value Reference Range Interpretation Comments Sodium Lvl (test code = Sodium Lvl) 139 135-145 [place] 033772-02-05 11:10:00 Test Item Value Reference Range Interpretation Comments Potassium Lvl (test code = Potassium 3.7 3.5-5.1 Lvl) [place] 033772-02-05 11:10:00 Test Item Value Reference Range Interpretation Comments Chloride Lvl (test code = Chloride Lvl) 103 95-109 [place] 033772-02-05 11:10:00 Test Item Value Reference Range Interpretation Comments CO2 (test code = CO2) 31 24-32 [place] 033772-02-05 11:10:00 Test Item Value Reference Range Interpretation Comments Calcium Lvl (test code = Calcium Lvl) 8.2 8.5-10.5 [place] 033772-02-05 11:10:00 Test Item Value Reference Range Interpretation Comments AGAP (test code = AGAP) 8.7 10.0-20.0 [place] 033772-02-05 11:10:00 Test Item Value Reference Range Interpretation Comments eGFR (test code = eGFR) 60 [facility] HospitalMomhfbpFDSYRUBNVA1650-42-02 11:10:00 Test Item Value Reference Range Interpretation Comments WBC (test code = WBC) 7.2 3.7-10.4 [place] [address]-02-05 11:10:00 Test Item Value Reference Range Interpretation Comments RBC (test code = RBC) 3.30 4.20-5.40 [place] [address]-02-05 11:10:00 Test Item Value Reference Range Interpretation Comments Hgb (test code = Hgb) 8.7 12.0-16.0 [place] [address]-02-05 11:10:00 Test Item Value Reference Range Interpretation Comments Hct (test code = Hct) 27.7 36.0-48.0 [place] [address]-02-05 11:10:00 Test Item Value Reference Range Interpretation Comments MCV (test code = MCV) 84.0 80.0-98.0 [place] [address]-02-05 11:10:00 Test Item Value Reference Range Interpretation Comments MCH (test code = MCH) 26.4 pg 27.0-31.0 [place] [address]-02-05 11:10:00 Test Item Value Reference Range Interpretation Comments MCHC (test code = MCHC) 31.4 32.0-36.0 [place] [address]-02-05 11:10:00 Test Item Value Reference Range Interpretation Comments RDW (test code = RDW) 17.9 11.5-14.5 [place] [address]-02-05 11:10:00 Test Item Value Reference Range Interpretation Comments Platelet (test code = Platelet) 328 133-450 [place] [address]-02-05 11:10:00 Test Item Value Reference Range Interpretation Comments MPV (test code = MPV) 7.2 7.4-10.4 [place] 033772-02-04 11:51:00 Test Item Value Reference Range Interpretation Comments Glucose Lvl (test code = Glucose Lvl) 98 70-99 [place] 033772-02-04 11:51:00 Test Item Value Reference Range Interpretation Comments BUN (test code = BUN) 12 7-22 [place] 033772-02-04 11:51:00 Test Item Value Reference Range Interpretation Comments Creatinine Lvl (test code = Creatinine 0.88 0.50-1.40 Lvl) [place] 033772-02-04 11:51:00 Test Item Value Reference Range Interpretation Comments Sodium Lvl (test code = Sodium Lvl) 140 135-145 [place] 033772-02-04 11:51:00 Test Item Value Reference Range Interpretation Comments Potassium Lvl (test code = Potassium 3.9 3.5-5.1 Lvl) [place] 033772-02-04 11:51:00 Test Item Value Reference Range Interpretation Comments Chloride Lvl (test code = Chloride Lvl) 103 95-109 [place] 033772-02-04 11:51:00 Test Item Value Reference Range Interpretation Comments CO2 (test code = CO2) 32 24-32 [place] 033772-02-04 11:51:00 Test Item Value Reference Range Interpretation Comments Calcium Lvl (test code = Calcium Lvl) 8.5 8.5-10.5 [facility] [id number] 11:51:00 Test Item Value Reference Range Interpretation Comments AGAP (test code = AGAP) 8.9 10.0-20.0 [facility] [id number] 11:51:00 Test Item Value Reference Range Interpretation Comments eGFR (test code = eGFR) 64 [facility] HospitalZqktiukWEWTJPPKOH3442-16-12 11:51:00 Test Item Value Reference Range Interpretation Comments WBC (test code = WBC) 7.1 3.7-10.4 [place] [address]-02-04 11:51:00 Test Item Value Reference Range Interpretation Comments RBC (test code = RBC) 3.54 4.20-5.40 [facility] HospitalVlthnzdDPHSBVOIDF0374-94-10 11:51:00 Test Item Value Reference Range Interpretation Comments Hgb (test code = Hgb) 9.3 12.0-16.0 [place] [address]-02-04 11:51:00 Test Item Value Reference Range Interpretation Comments Hct (test code = Hct) 29.5 36.0-48.0 [place] [address]-02-04 11:51:00 Test Item Value Reference Range Interpretation Comments MCV (test code = MCV) 83.5 80.0-98.0 [facility] HospitalVfxegmjUWOIAVUNDB5402-21-74 11:51:00 Test Item Value Reference Range Interpretation Comments MCH (test code = MCH) 26.3 pg 27.0-31.0 [facility] HospitalIhpgsofSMLIWCXRXO2875-03-70 11:51:00 Test Item Value Reference Range Interpretation Comments MCHC (test code = MCHC) 31.5 32.0-36.0 [facility] HospitalAbqwqnhZCZRUMSUEX7339-37-63 11:51:00 Test Item Value Reference Range Interpretation Comments RDW (test code = RDW) 17.4 11.5-14.5 [place] [address]-02-04 11:51:00 Test Item Value Reference Range Interpretation Comments Platelet (test code = Platelet) 355 133-450 [facility] HospitalSaqiiajTXZNZBANWO9970-63-81 11:51:00 Test Item Value Reference Range Interpretation Comments MPV (test code = MPV) 7.4 7.4-10.4 [facility]fagjsiRJBPZQIHKD6502-35-33 03:17:00 Test Item Value Reference Range Interpretation Comments Coronavirus (COVID-19) Not Detected (10/17/21 MADELINE (test code = 9:17 PM) Coronavirus (COVID-19) MADELINE) [place] [address]-02-02 12:50:00 Test Item Value Reference Range Interpretation Comments Segs (test code = Segs) 70.7 45.0-75.0 [place] [address]-02-02 12:50:00 Test Item Value Reference Range Interpretation Comments Lymphocytes (test code = Lymphocytes) 14.4 20.0-40.0 [place] [address]-02-02 12:50:00 Test Item Value Reference Range Interpretation Comments Monocytes (test code = Monocytes) 14.0 2.0-12.0 [place] [address]-02-02 12:50:00 Test Item Value Reference Range Interpretation Comments Basophils (test code = 0.9 See_Comment [Aut omated message] The Basophils) system which ge nerated this result tra nsmitted reference range : <=1.0. The reference r shin was not used to int erpret this result as normal/abnormal . [facility] HospitalOqijjfcMTXBGPDPUG6984-63-90 12:50:00 Test Item Value Reference Range Interpretation Comments Neutrophils # (test code = Neutrophils 4.3 1.5-8.1 #) [facility] HospitalHvcvfxaJCXBMVQJVX6681-24-69 12:50:00 Test Item Value Reference Range Interpretation Comments Lymphocytes # (test code = Lymphocytes 0.9 1.0-5.5 #) [place] [address]-02-02 12:50:00 Test Item Value Reference Range Interpretation Comments Monocytes # (test code 0.9 See_Comment [Aut omated message] The = Monocytes #) system which generated this result tra nsmitted reference range : <=0.8. The reference r shin was not used to int erpret this result as normal/abnormal . [place] [address]-02-02 12:50:00 Test Item Value Reference Range Interpretation Comments Basophils # (test code 0.1 See_Comment [Aut omated message] The = Basophils #) system which generated this result tra nsmitted reference range : <=0.2. The reference r shin was not used to int erpret this result as normal/abnormal . [address]02-01 12:13:00 Test Item Value Reference Range Interpretation Comments Plt Morph (test code = Normal (10/15/21 6:13 AM) Plt Morph) [place] [address]-02-01 12:13:00 Test Item Value Reference Range Interpretation Comments Segs (test code = Segs) 79.0 45.0-75.0 [place] [address]-02-01 12:13:00 Test Item Value Reference Range Interpretation Comments Bands (test code = 3.0 See_Comment [Automat ed message] The Bands) system which ge nerated this result transmit shubham reference range : <=11.0. The reference r shin was not used to interpr et this result as halina l/abnormal. [place] [address]-02-01 12:13:00 Test Item Value Reference Range Interpretation Comments Lymphocytes (test code = Lymphocytes) 8.0 20.0-40.0 [place] [address]-02-01 12:13:00 Test Item Value Reference Range Interpretation Comments Monocytes (test code = Monocytes) 10.0 2.0-12.0 [place] [address]-02-01 12:13:00 Test Item Value Reference Range Interpretation Comments Neutrophils # (test code = Neutrophils 5.8 1.5-8.1 #) [place] [address]-02-01 12:13:00 Test Item Value Reference Range Interpretation Comments Lymphocytes # (test code = Lymphocytes 0.6 1.0-5.5 #) [place] [address]-02-01 12:13:00 Test Item Value Reference Range Interpretation Comments Monocytes # (test code 0.7 See_Comment [Aut omated message] The = Monocytes #) system which generated this result tra nsmitted reference range : <=0.8. The reference r shin was not used to int erpret this result as normal/abnormal . [place] [address]-02-01 12:13:00 Test Item Value Reference Range Interpretation Comments Microcyte (test code = 1+ *ABN*(10/15/21 6:13 Microcyte) AM) [place] [address]-02-01 12:13:00 Test Item Value Reference Range Interpretation Comments Hypochrom (test code = 1+ (10/15/21 6:13 AM) Hypochrom) [facility] [id number] 15:02:00 Test Item Value Reference Range Interpretation Comments RBC product (test code Product available = RBC product) (10/14/21 9:02 AM) [facility] KEIARLZ2653-98-26 12:40:00 Test Item Value Reference Range Interpretation Comments ABO/Rh (test code = ABO/Rh) O POS [facility] [id number] 12:40:00 Test Item Value Reference Range Interpretation Comments Antibody Scrn (test Negative (10/14/21 6:40 code = Antibody Scrn) AM) [facility] [id number] 11:57:00 Test Item Value Reference Range Interpretation Comments RBC product (test code Product available = RBC product) 4(10/14/21 5:57 AM) [facility] [id number] 10:48:00 Test Item Value Reference Range Interpretation Comments Ferritin Lvl (test code = Ferritin Lvl) 29 5-204 [facility] [id number] 10:48:00 Test Item Value Reference Range Interpretation Comments Iron (test code = Iron) 10 [facility] [id number] 10:48:00 Test Item Value Reference Range Interpretation Comments TIBC (test code = TIBC) 253 [facility] [id number] 10:48:00 Test Item Value Reference Range Interpretation Comments % Satur Fe (test code = % Satur Fe) 4 [facility] [id number] 10:48:00 Test Item Value Reference Range Interpretation Comments Folate Lvl (test code = Folate Lvl) 2.9 [facility]2022-01-31 10:48:00 Test Item Value Reference Range Interpretation Comments Vitamin B12 Lvl (test code = Vitamin 181 B12 Lvl) [facility]FqdkixhCUVLKGPKFP3611-25-41 10:48:00 Test Item Value Reference Range Interpretation Comments Segs (test code = Segs) 75.9 45.0-75.0 [facility] HospitalXbuxjafUDSNTXZGTQ3876-34-93 10:48:00 Test Item Value Reference Range Interpretation Comments Lymphocytes (test code = Lymphocytes) 12.6 20.0-40.0 [facility] HospitalCnkqpslSJIILTQWQP7796-39-27 10:48:00 Test Item Value Reference Range Interpretation Comments Monocytes (test code = Monocytes) 11.0 2.0-12.0 [facility] HospitalRylpygvTYIMWFOLWV6695-97-92 10:48:00 Test Item Value Reference Range Interpretation Comments Basophils (test code = 0.5 See_Comment [Aut omated message] The Basophils) system which ge nerated this result tra nsmitted reference range : <=1.0. The reference r shin was not used to int erpret this result as normal/abnormal . [facility] HospitalPrftxedVMHVIDZOGG0457-33-67 10:48:00 Test Item Value Reference Range Interpretation Comments Neutrophils # (test code = Neutrophils 7.1 1.5-8.1 #) [facility] HospitalSbnqmikTXZIOBDLFP7742-79-76 10:48:00 Test Item Value Reference Range Interpretation Comments Lymphocytes # (test code = Lymphocytes 1.2 1.0-5.5 #) [facility] HospitalSxkstioTHBWWKSBSR9528-52-42 10:48:00 Test Item Value Reference Range Interpretation Comments Monocytes # (test code 1.0 See_Comment [Aut omated message] The = Monocytes #) system which generated this result tra nsmitted reference range : <=0.8. The reference r shin was not used to int erpret this result as normal/abnormal . [facility] HospitalUcifdkyGHBNZTHOBH7235-02-46 10:48:00 Test Item Value Reference Range Interpretation Comments Basophils # (test code 0.1 See_Comment [Aut omated message] The = Basophils #) system which generated this result tra nsmitted reference range : <=0.2. The reference r shin was not used to int erpret this result as normal/abnormal . [facility] HospitalGtwogmsSBVAZQXIEX8503-66-95 10:48:00 Test Item Value Reference Range Interpretation Comments Retic Perf (test code = Yes (10/14/21 4:48 AM) Retic Perf) [facility] HospitalGzrajizMUYSWRQTDP9428-76-48 10:48:00 Test Item Value Reference Range Interpretation Comments Retic Auto (test code = Retic Auto) 1.8 0.5-1.5 [facility] HospitalOehinpmICNURSSKOB9928-70-54 20:45:00 Test Item Value Reference Range Interpretation Comments Hgb (test code = Hgb) 7.7 12.0-16.0 [facility] HospitalKybmjclECVZIOOXUQ0780-00-10 20:45:00 Test Item Value Reference Range Interpretation Comments Hct (test code = Hct) 24.5 36.0-48.0 [facility]annCHE[facility] [id number] 15:44:00 Test Item Value Reference Range Interpretation Comments Lactic Acid Lvl (test code = Lactic 1.8 0.5-2.2 Acid Lvl) [facility]PiwkykaOXSQHCPFKJ2785-50-38 14:53:00 Test Item Value Reference Range Interpretation Comments Coronavirus (COVID-19) Not Detected (10/13/21 MADELINE (test code = 8:53 AM) Coronavirus (COVID-19) MADELINE) [facility] [id number] 14:53:00 Test Item Value Reference Range Interpretation Comments UA Color (test code = Yellow *NA*(10/13/21 UA Color) 8:53 AM) [facility] [id number] 14:53:00 Test Item Value Reference Range Interpretation Comments UA Turbidity (test code = Clear (10/13/21 8:53 UA Turbidity) AM) [facility] [id number] 14:53:00 Test Item Value Reference Range Interpretation Comments UA Spec Grav (test code = UA Spec 1.017 1 Grav) [facility] [id number] 14:53:00 Test Item Value Reference Range Interpretation Comments UA pH (test code = UA pH) 5.0 1 5.0-8.0 [facility] [id number] 14:53:00 Test Item Value Reference Range Interpretation Comments UA Protein (test code = UA Protein) 30 mg/dL [facility] [id number] 14:53:00 Test Item Value Reference Range Interpretation Comments UA Glucose (test code = UA Negative mg/dL Glucose) [facility] [id number] 14:53:00 Test Item Value Reference Range Interpretation Comments UA Ketones (test code = UA Negative mg/dL Ketones) [facility] [id number] 14:53:00 Test Item Value Reference Range Interpretation Comments UA Bili (test code = Negative *NA*(10/13/21 UA Bili) 8:53 AM) [facility] [id number] 14:53:00 Test Item Value Reference Range Interpretation Comments UA Blood (test code = Small *ABN*(10/13/21 UA Blood) 8:53 AM) [facility] [id number] 14:53:00 Test Item Value Reference Range Interpretation Comments UA Urobilinogen (test code = UA 2.0 0.1-1.0 Urobilinogen) [facility] [id number] 14:53:00 Test Item Value Reference Range Interpretation Comments UA Nitrite (test code Negative (10/13/21 8:53 = UA Nitrite) AM) [facility]ann[facility] [id number] 14:53:00 Test Item Value Reference Range Interpretation Comments UA Leuk Est (test code Small *ABN*(10/13/21 = UA Leuk Est) 8:53 AM) [facility]ann[facility] [id number] 14:53:00 Test Item Value Reference Range Interpretation Comments UA Sq Epi (test code = UA Sq Occasional /LPF Epi) [facility] [id number] 14:53:00 Test Item Value Reference Range Interpretation Comments UA WBC (test code = 26 See_Comment [Automa shubham message] The UA WBC) system which ge nerated this result transmit shubham reference range : <=5. The reference range was not used to interpr et this result as halina l/abnormal. [facility]ann[facility] [id number] 14:53:00 Test Item Value Reference Range Interpretation Comments UA RBC (test code = 44 See_Comment [Automa shubham message] The UA RBC) system which ge nerated this result transmit shubham reference range : <=2. The reference range was not used to interpr et this result as halina l/abnormal. [facility] [id number] 14:53:00 Test Item Value Reference Range Interpretation Comments UA Bacteria (test code = UA Occasional /HPF Bacteria) [facility]ann[facility] [id number] 14:53:00 Test Item Value Reference Range Interpretation Comments UA Mucus (test code = UA Mucus) Moderate /LPF [facility] CenterannCulture: [id number] 14:53:00 Test Item Value Reference Range Interpretation Comments Culture: Urine (test code = No Growth Culture: Urine) [facility] CenterannCHEM [id number] 12:16:00 Test Item Value Reference Range Interpretation Comments Glucose Lvl (test code = Glucose Lvl) 121 70-99 [place] 033772-01-30 12:16:00 Test Item Value Reference Range Interpretation Comments BUN (test code = BUN) 18 7-22 [place] 033772-01-30 12:16:00 Test Item Value Reference Range Interpretation Comments Creatinine Lvl (test code = Creatinine 0.97 0.50-1.40 Lvl) [place] 033772-01-30 12:16:00 Test Item Value Reference Range Interpretation Comments Sodium Lvl (test code = Sodium Lvl) 138 135-145 [place] 033772-01-30 12:16:00 Test Item Value Reference Range Interpretation Comments Potassium Lvl (test code = Potassium 4.1 3.5-5.1 Lvl) [place] 033772-01-30 12:16:00 Test Item Value Reference Range Interpretation Comments Chloride Lvl (test code = Chloride Lvl) 105 95-109 [place] 033772-01-30 12:16:00 Test Item Value Reference Range Interpretation Comments CO2 (test code = CO2) 29 24-32 [place] 033772-01-30 12:16:00 Test Item Value Reference Range Interpretation Comments Calcium Lvl (test code = Calcium Lvl) 8.3 8.5-10.5 [place] 033772-01-30 12:16:00 Test Item Value Reference Range Interpretation Comments AGAP (test code = AGAP) 8.1 10.0-20.0 [place] 033772-01-30 12:16:00 Test Item Value Reference Range Interpretation Comments eGFR (test code = eGFR) 57 [place] 185092-01-30 12:16:00 Test Item Value Reference Range Interpretation Comments WBC (test code = WBC) 11.6 3.7-10.4 [place] [address]-01-30 12:16:00 Test Item Value Reference Range Interpretation Comments RBC (test code = RBC) 3.03 4.20-5.40 [place] 185092-01-30 12:16:00 Test Item Value Reference Range Interpretation Comments Hgb (test code = Hgb) 7.7 12.0-16.0 [place] 185092-01-30 12:16:00 Test Item Value Reference Range Interpretation Comments Hct (test code = Hct) 25.0 36.0-48.0 [facility] HospitalKgchzkxJVFBIIEBUX4107-79-19 12:16:00 Test Item Value Reference Range Interpretation Comments MCV (test code = MCV) 82.6 80.0-98.0 [facility] HospitalTswxlemJMAVXSANDZ2209-55-39 12:16:00 Test Item Value Reference Range Interpretation Comments MCH (test code = MCH) 25.5 pg 27.0-31.0 [facility] HospitalSxbvihbJEAFLUAFGA0411-18-21 12:16:00 Test Item Value Reference Range Interpretation Comments MCHC (test code = MCHC) 30.8 32.0-36.0 [facility] HospitalKwutioeOQJGAWNPYG1507-99-83 12:16:00 Test Item Value Reference Range Interpretation Comments RDW (test code = RDW) 17.5 11.5-14.5 [facility] HospitalHweuvtbHTZDEQBYDV0924-18-01 12:16:00 Test Item Value Reference Range Interpretation Comments Platelet (test code = Platelet) 233 133-450 [facility] HospitalXvvdremKROICMOZBS6467-40-51 12:16:00 Test Item Value Reference Range Interpretation Comments MPV (test code = MPV) 7.4 7.4-10.4 [facility] HospitalCogivadUNRXKUPKUK9745-12-71 12:16:00 Test Item Value Reference Range Interpretation Comments Segs (test code = Segs) 79.9 45.0-75.0 [facility] HospitalDtmsrwyUZSLWOTENS4054-86-98 12:16:00 Test Item Value Reference Range Interpretation Comments Lymphocytes (test code = Lymphocytes) 10.4 20.0-40.0 [facility] HospitalUtnqgzwHPKKJWKEDE7758-29-89 12:16:00 Test Item Value Reference Range Interpretation Comments Monocytes (test code = Monocytes) 9.4 2.0-12.0 [place] 185092-01-30 12:16:00 Test Item Value Reference Range Interpretation Comments Basophils (test code = 0.3 See_Comment [Aut omated message] The Basophils) system which ge nerated this result tra nsmitted reference range : <=1.0. The reference r shin was not used to int erpret this result as normal/abnormal . [facility] HospitalVlbemufTHIUWSZEEW1407-07-23 12:16:00 Test Item Value Reference Range Interpretation Comments Neutrophils # (test code = Neutrophils 9.3 1.5-8.1 #) [place] [address]-01-30 12:16:00 Test Item Value Reference Range Interpretation Comments Lymphocytes # (test code = Lymphocytes 1.2 1.0-5.5 #) [place] 1850[address]-01-30 12:16:00 Test Item Value Reference Range Interpretation Comments Monocytes # (test code 1.1 See_Comment [Aut omated message] The = Monocytes #) system which generated this result tra nsmitted reference range : <=0.8. The reference r shin was not used to int erpret this result as normal/abnormal . [place] 033772-01-29 08:52:00 Test Item Value Reference Range Interpretation Comments Glucose Lvl (test code = Glucose Lvl) 130 70-99 [place] 033772-01-29 08:52:00 Test Item Value Reference Range Interpretation Comments BUN (test code = BUN) 13 7-22 [place] 033772-01-29 08:52:00 Test Item Value Reference Range Interpretation Comments Creatinine Lvl (test code = Creatinine 0.88 0.50-1.40 Lvl) [place] 033772-01-29 08:52:00 Test Item Value Reference Range Interpretation Comments Sodium Lvl (test code = Sodium Lvl) 142 135-145 [place] 033772-01-29 08:52:00 Test Item Value Reference Range Interpretation Comments Potassium Lvl (test code = Potassium 4.3 3.5-5.1 Lvl) [place] 033772-01-29 08:52:00 Test Item Value Reference Range Interpretation Comments Chloride Lvl (test code = Chloride Lvl) 110 95-109 [place] 033772-01-29 08:52:00 Test Item Value Reference Range Interpretation Comments CO2 (test code = CO2) 28 24-32 [place] 033772-01-29 08:52:00 Test Item Value Reference Range Interpretation Comments Calcium Lvl (test code = Calcium Lvl) 8.3 8.5-10.5 [place] 033772-01-29 08:52:00 Test Item Value Reference Range Interpretation Comments AGAP (test code = AGAP) 8.3 10.0-20.0 [place] 033772-01-29 08:52:00 Test Item Value Reference Range Interpretation Comments eGFR (test code = eGFR) 63 [place] 185092-01-29 08:52:00 Test Item Value Reference Range Interpretation Comments RBC Morph (test code = Normal (10/12/21 2:52 RBC Morph) AM) [place] 185092-01-29 08:52:00 Test Item Value Reference Range Interpretation Comments Plt Morph (test code = Normal (10/12/21 2:52 Plt Morph) AM) [place] 1850[address]-01-29 08:52:00 Test Item Value Reference Range Interpretation Comments Segs (test code = Segs) 91.1 45.0-75.0 [place] [address]-01-29 08:52:00 Test Item Value Reference Range Interpretation Comments Lymphocytes (test code = Lymphocytes) 4.6 20.0-40.0 [place] [address]-01-29 08:52:00 Test Item Value Reference Range Interpretation Comments Monocytes (test code = Monocytes) 3.9 2.0-12.0 [place] [address]-01-29 08:52:00 Test Item Value Reference Range Interpretation Comments Basophils (test code = 0.4 See_Comment [Aut omated message] The Basophils) system which ge nerated this result tra nsmitted reference range : <=1.0. The reference r shin was not used to int erpret this result as normal/abnormal . [facility] HospitalRaknediMPTWJIYZCI6955-08-55 08:52:00 Test Item Value Reference Range Interpretation Comments Neutrophils # (test code = Neutrophils 9.1 1.5-8.1 #) [place] [address]-01-29 08:52:00 Test Item Value Reference Range Interpretation Comments Lymphocytes # (test code = Lymphocytes 0.5 1.0-5.5 #) [place] [address]-01-29 08:52:00 Test Item Value Reference Range Interpretation Comments Monocytes # (test code 0.4 See_Comment [Aut omated message] The = Monocytes #) system which generated this result tra nsmitted reference range : <=0.8. The reference r shin was not used to int erpret this result as normal/abnormal . [place] [address]-01-29 08:52:00 Test Item Value Reference Range Interpretation Comments WBC (test code = WBC) 9.9 3.7-10.4 [facility] HospitalPxwezqqQAXERADBJZ2171-93-79 08:52:00 Test Item Value Reference Range Interpretation Comments RBC (test code = RBC) 3.80 4.20-5.40 [facility] HospitalQnsjoqpHBUWHSCPLA8932-13-80 08:52:00 Test Item Value Reference Range Interpretation Comments Hgb (test code = Hgb) 10.0 12.0-16.0 [facility]SdgxmhwOVGPNGTHNI7914-37-72 08:52:00 Test Item Value Reference Range Interpretation Comments Hct (test code = Hct) 31.7 36.0-48.0 [facility] NorthwestGpougrmDVYQFENLYA1534-07-66 08:52:00 Test Item Value Reference Range Interpretation Comments MCV (test code = MCV) 83.4 80.0-98.0 [facility] NorthwestZqudthzYCIEVAXSIP1204-34-39 08:52:00 Test Item Value Reference Range Interpretation Comments MCH (test code = MCH) 26.3 pg 27.0-31.0 [facility] NorthwestAiuqsbmYUPVIOHNND7813-02-09 08:52:00 Test Item Value Reference Range Interpretation Comments MCHC (test code = MCHC) 31.6 32.0-36.0 [facility] NorthwestVoxupahGPCDYUTCMF3986-08-45 08:52:00 Test Item Value Reference Range Interpretation Comments RDW (test code = RDW) 17.1 11.5-14.5 [facility] NorthwestUorsxexCZXGHWBIDZ3716-93-16 08:52:00 Test Item Value Reference Range Interpretation Comments Platelet (test code = Platelet) 283 133-450 [facility] HospitalIccpixfSZUKREJAGE6415-27-10 08:52:00 Test Item Value Reference Range Interpretation Comments MPV (test code = MPV) 7.3 7.4-10.4 [facility] [employer] LOWYUCE1854-63-63 19:43:00 Test Item Value Reference Range Interpretation Comments RBC product (test code Product available = RBC product) 5(10/11/21 1:43 PM) [facility] [employer] DCWKQMJ5780-80-20 18:49:00 Test Item Value Reference Range Interpretation Comments ABO/Rh (test code = ABO/Rh) O POS [facility] [employer] [id number] 18:49:00 Test Item Value Reference Range Interpretation Comments Antibody Scrn (test Negative (10/11/21 code = Antibody Scrn) 12:49 PM) [facility] [employer] LESYUQK1675-16-13 17:23:00 Test Item Value Reference Range Interpretation Comments RBC product (test code Product available = RBC product) 4(10/11/21 11:23 AM) [facility] CenterByobetpUIGCKDNTOA7421-30-40 16:38:00 Test Item Value Reference Range Interpretation Comments Coronavirus (COVID-19) Not Detected (10/11/21 MADELINE (test code = 10:38 AM) Coronavirus (COVID-19) MADELINE) [facility] [employer] XUJRVQN2829-08-33 16:24:00 Test Item Value Reference Range Interpretation Comments ABO/Rh (test code = ABO/Rh) O POS [facility] [employer] NFLIYIW4733-10-93 16:24:00 Test Item Value Reference Range Interpretation Comments Antibody Scrn (test Negative (10/03/21 code = Antibody Scrn) 10:24 AM) [facility] PqyizhiLDULZWLXOP4622-92-66 15:00:00 Test Item Value Reference Range Interpretation Comments Coronavirus (COVID-19) Not Detected (10/03/21 MADELINE (test code = 9:00 AM) Coronavirus (COVID-19) MADELINE) [facility] [employer] [id number] 11:56:00 Test Item Value Reference Range Interpretation Comments Glucose Lvl (test code = Glucose Lvl) 111 70-99 [facility] [employer] ZKVHD1723-20-85 11:56:00 Test Item Value Reference Range Interpretation Comments BUN (test code = BUN) 21 7-22 [facility] [employer] UANZG5700-28-72 11:56:00 Test Item Value Reference Range Interpretation Comments Creatinine Lvl (test code = Creatinine 1.29 0.50-1.40 Lvl) [facility] [employer] EFXET8710-72-00 11:56:00 Test Item Value Reference Range Interpretation Comments Sodium Lvl (test code = Sodium Lvl) 141 135-145 [facility] [employer] [id number] 11:56:00 Test Item Value Reference Range Interpretation Comments Potassium Lvl (test code = Potassium 3.9 3.5-5.1 Lvl) [employer] [id number] 11:56:00 Test Item Value Reference Range Interpretation Comments Chloride Lvl (test code = Chloride Lvl) 102 95-109 [facility] [employer] [id number] 11:56:00 Test Item Value Reference Range Interpretation Comments CO2 (test code = CO2) 33 24-32 [place] 033772-01-17 11:56:00 Test Item Value Reference Range Interpretation Comments Calcium Lvl (test code = Calcium Lvl) 8.5 8.5-10.5 [place] 033772-01-17 11:56:00 Test Item Value Reference Range Interpretation Comments AGAP (test code = AGAP) 9.9 10.0-20.0 [place] 033772-01-17 11:56:00 Test Item Value Reference Range Interpretation Comments eGFR (test code = eGFR) 40 [place] 033772-01-17 11:56:00 Test Item Value Reference Range Interpretation Comments Magnesium Lvl (test code = Magnesium 1.9 1.8-2.4 Lvl) [place] 033772-01-17 11:56:00 Test Item Value Reference Range Interpretation Comments Phosphorus (test code = Phosphorus) 3.5 2.5-4.5 [place] 1850[address]-01-17 11:56:00 Test Item Value Reference Range Interpretation Comments Segs (test code = Segs) 61.4 45.0-75.0 [place] [address]-01-17 11:56:00 Test Item Value Reference Range Interpretation Comments Lymphocytes (test code = Lymphocytes) 25.3 20.0-40.0 [place] [address]-01-17 11:56:00 Test Item Value Reference Range Interpretation Comments Monocytes (test code = Monocytes) 12.7 2.0-12.0 [place] [address]-01-17 11:56:00 Test Item Value Reference Range Interpretation Comments Basophils (test code = 0.6 See_Comment [Aut omated message] The Basophils) system which ge nerated this result tra nsmitted reference range : <=1.0. The reference r shin was not used to int erpret this result as normal/abnormal . [place] 1850[address]-01-17 11:56:00 Test Item Value Reference Range Interpretation Comments Neutrophils # (test code = Neutrophils 3.7 1.5-8.1 #) [place] [address]-01-17 11:56:00 Test Item Value Reference Range Interpretation Comments Lymphocytes # (test code = Lymphocytes 1.5 1.0-5.5 #) [facility] HospitalYriddqgYOXLFBYDMX9142-98-16 11:56:00 Test Item Value Reference Range Interpretation Comments Monocytes # (test code 0.8 See_Comment [Aut omated message] The = Monocytes #) system which generated this result tra nsmitted reference range : <=0.8. The reference r shin was not used to int erpret this result as normal/abnormal . [facility] HospitalGnfxasuMVXJJQRXBV9945-75-81 11:56:00 Test Item Value Reference Range Interpretation Comments WBC (test code = WBC) 6.0 3.7-10.4 [facility] HospitalUlpfbonCSJQXVGTYX1821-40-27 11:56:00 Test Item Value Reference Range Interpretation Comments RBC (test code = RBC) 4.13 4.20-5.40 [facility] HospitalFzaifndRSYMIGLXKT5865-97-30 11:56:00 Test Item Value Reference Range Interpretation Comments Hgb (test code = Hgb) 10.9 12.0-16.0 [facility] HospitalNveegpsWNBDFDRXAQ0054-47-01 11:56:00 Test Item Value Reference Range Interpretation Comments Hct (test code = Hct) 34.2 36.0-48.0 [facility] HospitalTsdlrpqIDLSCRTHUZ8341-57-22 11:56:00 Test Item Value Reference Range Interpretation Comments MCV (test code = MCV) 82.9 80.0-98.0 [facility] HospitalBvbrqztFXAQDRAMJH3284-64-00 11:56:00 Test Item Value Reference Range Interpretation Comments MCH (test code = MCH) 26.4 pg 27.0-31.0 [facility] HospitalFqginqhOTHXZHCHGP7205-73-80 11:56:00 Test Item Value Reference Range Interpretation Comments MCHC (test code = MCHC) 31.9 32.0-36.0 [facility] HospitalRchhwhsMKXVXPVLGX3123-54-40 11:56:00 Test Item Value Reference Range Interpretation Comments RDW (test code = RDW) 17.0 11.5-14.5 [facility] HospitalPzkuxbrMPDKETVHRX4423-25-55 11:56:00 Test Item Value Reference Range Interpretation Comments Platelet (test code = Platelet) 279 133-450 [facility] HospitalTmdchgrJZKYLVMYBG7952-82-03 11:56:00 Test Item Value Reference Range Interpretation Comments MPV (test code = MPV) 7.8 7.4-10.4 [facility]2022-01-16 10:21:00 Test Item Value Reference Range Interpretation Comments Glucose Lvl (test code = Glucose Lvl) 110 70-99 [facility]2022-01-16 10:21:00 Test Item Value Reference Range Interpretation Comments BUN (test code = BUN) 17 7-22 [facility]2022-01-16 10:21:00 Test Item Value Reference Range Interpretation Comments Creatinine Lvl (test code = Creatinine 1.17 0.50-1.40 Lvl) [facility]2022-01-16 10:21:00 Test Item Value Reference Range Interpretation Comments Sodium Lvl (test code = Sodium Lvl) 141 135-145 [facility]2022-01-16 10:21:00 Test Item Value Reference Range Interpretation Comments Potassium Lvl (test code = Potassium 3.1 3.5-5.1 Lvl) [facility]2022-01-16 10:21:00 Test Item Value Reference Range Interpretation Comments Chloride Lvl (test code = Chloride Lvl) 99 95-109 [facility]2022-01-16 10:21:00 Test Item Value Reference Range Interpretation Comments CO2 (test code = CO2) 35 24-32 [facility]2022-01-16 10:21:00 Test Item Value Reference Range Interpretation Comments Calcium Lvl (test code = Calcium Lvl) 8.6 8.5-10.5 [facility]2022-01-16 10:21:00 Test Item Value Reference Range Interpretation Comments AGAP (test code = AGAP) 10.1 10.0-20.0 [facility]2022-01-16 10:21:00 Test Item Value Reference Range Interpretation Comments eGFR (test code = eGFR) 45 [facility]2022-01-16 10:21:00 Test Item Value Reference Range Interpretation Comments Magnesium Lvl (test code = Magnesium 1.9 1.8-2.4 Lvl) [facility]2022-01-16 10:21:00 Test Item Value Reference Range Interpretation Comments Phosphorus (test code = Phosphorus) 3.1 2.5-4.5 [facility]BA[facility] 10:21:00 Test Item Value Reference Range Interpretation Comments Segs (test code = Segs) 65.8 45.0-75.0 [facility]nnkqebMVPOIWDBFO1234-48-70 10:21:00 Test Item Value Reference Range Interpretation Comments Lymphocytes (test code = Lymphocytes) 20.6 20.0-40.0 [facility] HospitalZlrqgueLPFMZMIMPF4291-80-98 10:21:00 Test Item Value Reference Range Interpretation Comments Monocytes (test code = Monocytes) 12.8 2.0-12.0 [facility] HospitalUcnxvdsRBLWIXXWTM6592-36-47 10:21:00 Test Item Value Reference Range Interpretation Comments Basophils (test code = 0.8 See_Comment [Aut omated message] The Basophils) system which ge nerated this result tra nsmitted reference range : <=1.0. The reference r shin was not used to int erpret this result as normal/abnormal . [facility] HospitalQchxlojTTJILMRRTT6842-98-95 10:21:00 Test Item Value Reference Range Interpretation Comments Neutrophils # (test code = Neutrophils 4.3 1.5-8.1 #) [facility] HospitalTdkyeyxPHWZFQJJDT1496-79-56 10:21:00 Test Item Value Reference Range Interpretation Comments Lymphocytes # (test code = Lymphocytes 1.3 1.0-5.5 #) [facility] HospitalJujnriqXWBPRGUTAB8568-84-63 10:21:00 Test Item Value Reference Range Interpretation Comments Monocytes # (test code 0.8 See_Comment [Aut omated message] The = Monocytes #) system which generated this result tra nsmitted reference range : <=0.8. The reference r shin was not used to int erpret this result as normal/abnormal . [facility] HospitalYhbrgigMQXXLHBJFT3622-44-43 10:21:00 Test Item Value Reference Range Interpretation Comments WBC (test code = WBC) 6.5 3.7-10.4 [place] [address]-01-16 10:21:00 Test Item Value Reference Range Interpretation Comments RBC (test code = RBC) 4.15 4.20-5.40 [facility] HospitalGfecgefWIJJMRVJTF4650-72-58 10:21:00 Test Item Value Reference Range Interpretation Comments Hgb (test code = Hgb) 11.1 12.0-16.0 [facility] HospitalBkohlwuLECPDBMRYO3601-47-46 10:21:00 Test Item Value Reference Range Interpretation Comments Hct (test code = Hct) 34.2 36.0-48.0 [place] [address]-01-16 10:21:00 Test Item Value Reference Range Interpretation Comments MCV (test code = MCV) 82.3 80.0-98.0 [place] [address]-01-16 10:21:00 Test Item Value Reference Range Interpretation Comments MCH (test code = MCH) 26.7 pg 27.0-31.0 [place] [address]-01-16 10:21:00 Test Item Value Reference Range Interpretation Comments MCHC (test code = MCHC) 32.5 32.0-36.0 [place] [address]-01-16 10:21:00 Test Item Value Reference Range Interpretation Comments RDW (test code = RDW) 16.6 11.5-14.5 [place] [address]-01-16 10:21:00 Test Item Value Reference Range Interpretation Comments Platelet (test code = Platelet) 267 133-450 [facility] HospitalNoxrisdAMOFUIUHNN5770-70-85 10:21:00 Test Item Value Reference Range Interpretation Comments MPV (test code = MPV) 8.2 7.4-10.4 [facility]2022-01-15 10:01:00 Test Item Value Reference Range Interpretation Comments Glucose Lvl (test code = Glucose Lvl) 98 70-99 [facility]2022-01-15 10:01:00 Test Item Value Reference Range Interpretation Comments BUN (test code = BUN) 15 7-22 [facility]2022-01-15 10:01:00 Test Item Value Reference Range Interpretation Comments Creatinine Lvl (test code = Creatinine 1.13 0.50-1.40 Lvl) [facility]2022-01-15 10:01:00 Test Item Value Reference Range Interpretation Comments Sodium Lvl (test code = Sodium Lvl) 142 135-145 [facility]2022-01-15 10:01:00 Test Item Value Reference Range Interpretation Comments Potassium Lvl (test code = Potassium 3.4 3.5-5.1 Lvl) [facility]2022-01-15 10:01:00 Test Item Value Reference Range Interpretation Comments Chloride Lvl (test code = Chloride Lvl) 101 95-109 [facility]2022-01-15 10:01:00 Test Item Value Reference Range Interpretation Comments CO2 (test code = CO2) 35 24-32 [place] 033772-01-15 10:01:00 Test Item Value Reference Range Interpretation Comments Calcium Lvl (test code = Calcium Lvl) 8.3 8.5-10.5 [place] 033772-01-15 10:01:00 Test Item Value Reference Range Interpretation Comments AGAP (test code = AGAP) 9.4 10.0-20.0 [place] 033772-01-15 10:01:00 Test Item Value Reference Range Interpretation Comments eGFR (test code = eGFR) 47 [place] 033772-01-15 10:01:00 Test Item Value Reference Range Interpretation Comments Magnesium Lvl (test code = Magnesium 1.9 1.8-2.4 Lvl) [place] [address]-01-15 10:01:00 Test Item Value Reference Range Interpretation Comments Segs (test code = Segs) 69.2 45.0-75.0 [place] [address]-01-15 10:01:00 Test Item Value Reference Range Interpretation Comments Lymphocytes (test code = Lymphocytes) 19.9 20.0-40.0 [place] [address]-01-15 10:01:00 Test Item Value Reference Range Interpretation Comments Monocytes (test code = Monocytes) 10.2 2.0-12.0 [place] [address]-01-15 10:01:00 Test Item Value Reference Range Interpretation Comments Basophils (test code = 0.7 See_Comment [Aut omated message] The Basophils) system which ge nerated this result tra nsmitted reference range : <=1.0. The reference r shin was not used to int erpret this result as normal/abnormal . [facility] HospitalBrisiagRGJQKMTIMR9476-77-14 10:01:00 Test Item Value Reference Range Interpretation Comments Neutrophils # (test code = Neutrophils 4.2 1.5-8.1 #) [place] [address]-01-15 10:01:00 Test Item Value Reference Range Interpretation Comments Lymphocytes # (test code = Lymphocytes 1.2 1.0-5.5 #) [place] [address]-01-15 10:01:00 Test Item Value Reference Range Interpretation Comments Monocytes # (test code 0.6 See_Comment [Aut omated message] The = Monocytes #) system which generated this result tra nsmitted reference range : <=0.8. The reference r shin was not used to int erpret this result as normal/abnormal . [facility] HospitalByjdbosDURHUCQVLC4652-92-21 10:01:00 Test Item Value Reference Range Interpretation Comments WBC (test code = WBC) 6.0 3.7-10.4 [facility] HospitalUebpgpvRUWIIBBOQT5042-65-20 10:01:00 Test Item Value Reference Range Interpretation Comments RBC (test code = RBC) 3.59 4.20-5.40 [facility] HospitalTaomhwcEYNBEPSDCM8927-59-25 10:01:00 Test Item Value Reference Range Interpretation Comments Hgb (test code = Hgb) 9.8 12.0-16.0 [facility] HospitalEbxkrcmHLNEVMSYFS8516-88-54 10:01:00 Test Item Value Reference Range Interpretation Comments Hct (test code = Hct) 29.8 36.0-48.0 [facility] HospitalYscdwpyKAAMYQCLEC8098-52-68 10:01:00 Test Item Value Reference Range Interpretation Comments MCV (test code = MCV) 82.8 80.0-98.0 [facility] HospitalKziqwvnGHXYFPNREN3580-76-26 10:01:00 Test Item Value Reference Range Interpretation Comments MCH (test code = MCH) 27.3 pg 27.0-31.0 [facility] HospitalVbixldpVCEJCQRICE1003-59-06 10:01:00 Test Item Value Reference Range Interpretation Comments MCHC (test code = MCHC) 32.9 32.0-36.0 [facility] HospitalQstheaxTVEILJZNWL4959-38-62 10:01:00 Test Item Value Reference Range Interpretation Comments RDW (test code = RDW) 16.7 11.5-14.5 [facility]NnnmdtaCRABJKNMGU7706-09-97 10:01:00 Test Item Value Reference Range Interpretation Comments Platelet (test code = Platelet) 248 133-450 [facility]MhgsippPZLDSZXXZV2121-56-41 10:01:00 Test Item Value Reference Range Interpretation Comments MPV (test code = MPV) 8.4 7.4-10.4 [facility] VCKFACH9735-84-73 05:42:00 Test Item Value Reference Range Interpretation Comments HS Troponin I 1 Hr (test code = HS 386.4 Troponin I 1 Hr) [facility] UXSXSXJ4097-88-00 05:42:00 Test Item Value Reference Range Interpretation Comments HS Troponin I 0 to 1 Hour Delta (test 23.4 1 code = HS Troponin I 0 to 1 Hour Delta) [facility] NorthwestCAREpic!AC AKVDFIA2568-27-88 04:43:00 Test Item Value Reference Range Interpretation Comments HS Troponin I Baseline (test code = HS 363.0 Troponin I Baseline) [facility] NorthwestHkkuijzPADPSCZJGH0234-13-76 02:19:00 Test Item Value Reference Range Interpretation Comments Coronavirus (COVID-19) Not Detected (09/27/21 MADELINE (test code = 8:19 PM) Coronavirus (COVID-19) MADELINE) [facility] NorthwestSpeedyboyR[facility] VFMVJGZ6807-04-02 01:49:00 Test Item Value Reference Range Interpretation Comments Total CK (test code = Total CK) 51 12-191 [facility] ZXKTEVQ7492-21-49 01:49:00 Test Item Value Reference Range Interpretation Comments HS Troponin I (test code = HS Troponin 366.9 I) [facility] NorthwestUppidy HAMGHWX5656-67-96 01:49:00 Test Item Value Reference Range Interpretation Comments BNP (test code = BNP) [address] [facility] [id number] 01:49:00 Test Item Value Reference Range Interpretation Comments Glucose Lvl (test code = Glucose Lvl) 114 70-99 [facility] [id number] 01:49:00 Test Item Value Reference Range Interpretation Comments BUN (test code = BUN) 15 04-04 [facility] [id number] 01:49:00 Test Item Value Reference Range Interpretation Comments Creatinine Lvl (test code = Creatinine 1.06 0.50-1.40 Lvl) [facility] [id number] 01:49:00 Test Item Value Reference Range Interpretation Comments Sodium Lvl (test code = Sodium Lvl) 138 135-145 [facility] [id number] 01:49:00 Test Item Value Reference Range Interpretation Comments Potassium Lvl (test code = Potassium 3.5 3.5-5.1 Lvl) [facility] [id number] 01:49:00 Test Item Value Reference Range Interpretation Comments Chloride Lvl (test code = Chloride Lvl) 101 95-109 [facility] [id number] 01:49:00 Test Item Value Reference Range Interpretation Comments CO2 (test code = CO2) 34 24-32 [facility] [id number] 01:49:00 Test Item Value Reference Range Interpretation Comments Calcium Lvl (test code = Calcium Lvl) 8.0 8.5-10.5 [facility]2022-01-15 01:49:00 Test Item Value Reference Range Interpretation Comments Total Protein (test code = Total 6.8 6.4-8.4 Protein) [facility] NorthwestTranquilMed [id number] 01:49:00 Test Item Value Reference Range Interpretation Comments Albumin Lvl (test code = Albumin Lvl) 2.7 3.5-5.0 [facility] [id number] 01:49:00 Test Item Value Reference Range Interpretation Comments ALT (test code = ALT) 126 See_Comment [Auto mated message] The system which ge nerated this result transmit shubham reference range : <=65. The reference range was not used to interpr et this result as halina l/abnormal. [facility] [id number] 01:49:00 Test Item Value Reference Range Interpretation Comments AST (test code = AST) 91 See_Comment [Auto mated message] The system which ge nerated this result transmit shubham reference range : <=37. The reference range was not used to interpr et this result as halina l/abnormal. [facility] [employer] [id number] 01:49:00 Test Item Value Reference Range Interpretation Comments Alk Phos (test code = Alk Phos) 98 39-136 [facility] [employer] [id number] 01:49:00 Test Item Value Reference Range Interpretation Comments Bili Total (test code = Bili Total) 0.9 0.2-1.3 [facility] [id number] 01:49:00 Test Item Value Reference Range Interpretation Comments AGAP (test code = AGAP) 6.5 10.0-20.0 [facility] [id number] 01:49:00 Test Item Value Reference Range Interpretation Comments B/C Ratio (test code = B/C Ratio) 14 1 6-25 [facility] [id number] 01:49:00 Test Item Value Reference Range Interpretation Comments Globulin (test code = Globulin) 4.1 2.7-4.[address]01-15 01:49:00 Test Item Value Reference Range Interpretation Comments A/G Ratio (test code = A/G Ratio) 0.7 1 0.7-1.6 [address]01-15 01:49:00 Test Item Value Reference Range Interpretation Comments eGFR (test code = eGFR) [address]01-15 01:49:00 Test Item Value Reference Range Interpretation Comments Magnesium Lvl (test code = Magnesium 1.4 1.8-2.4 Lvl) [address]01-15 01:49:00 Test Item Value Reference Range Interpretation Comments Phosphorus (test code = Phosphorus) 3.1 2.5-4.5 [place] [address]-01-14 22:57:00 Test Item Value Reference Range Interpretation Comments WBC (test code = WBC) 6.6 3.7-10.4 [place] [address]-01-14 22:57:00 Test Item Value Reference Range Interpretation Comments RBC (test code = RBC) 4.02 4.20-5.40 [place] [address]-01-14 22:57:00 Test Item Value Reference Range Interpretation Comments Hgb (test code = Hgb) 10.8 12.0-16.0 [place] [address]-01-14 22:57:00 Test Item Value Reference Range Interpretation Comments Hct (test code = Hct) 33.6 36.0-48.0 [place] [address]-01-14 22:57:00 Test Item Value Reference Range Interpretation Comments MCV (test code = MCV) 83.7 80.0-98.0 [place] [address]-01-14 22:57:00 Test Item Value Reference Range Interpretation Comments MCH (test code = MCH) 26.9 pg 27.0-31.0 [place] [address]-01-14 22:57:00 Test Item Value Reference Range Interpretation Comments MCHC (test code = MCHC) 32.1 32.0-36.0 [place] [address]-01-14 22:57:00 Test Item Value Reference Range Interpretation Comments RDW (test code = RDW) 16.2 11.5-14.5 [place] [address]-01-14 22:57:00 Test Item Value Reference Range Interpretation Comments Platelet (test code = Platelet) 263 133-450 [place] [address]-01-14 22:57:00 Test Item Value Reference Range Interpretation Comments MPV (test code = MPV) 8.9 7.4-10.4 [place] [address]-01-14 22:57:00 Test Item Value Reference Range Interpretation Comments Segs (test code = Segs) 71.2 45.0-75.0 [place] [address]-01-14 22:57:00 Test Item Value Reference Range Interpretation Comments Lymphocytes (test code = Lymphocytes) 18.4 20.0-40.0 [place] [address]-01-14 22:57:00 Test Item Value Reference Range Interpretation Comments Monocytes (test code = Monocytes) 9.3 2.0-12.0 [place] [address]-01-14 22:57:00 Test Item Value Reference Range Interpretation Comments Basophils (test code = 1.1 See_Comment [Aut omated message] The Basophils) system which ge nerated this result tra nsmitted reference range : <=1.0. The reference r shin was not used to int erpret this result as normal/abnormal . [place] [address]-01-14 22:57:00 Test Item Value Reference Range Interpretation Comments Neutrophils # (test code = Neutrophils 4.7 1.5-8.1 #) [place] [address]-01-14 22:57:00 Test Item Value Reference Range Interpretation Comments Lymphocytes # (test code = Lymphocytes 1.2 1.0-5.5 #) [place] [address]-01-14 22:57:00 Test Item Value Reference Range Interpretation Comments Monocytes # (test code 0.6 See_Comment [Aut omated message] The = Monocytes #) system which generated this result tra nsmitted reference range : <=0.8. The reference r shin was not used to int erpret this result as normal/abnormal . [place] [address]-01-14 22:57:00 Test Item Value Reference Range Interpretation Comments Basophils # (test code 0.1 See_Comment [Aut omated message] The = Basophils #) system which generated this result tra nsmitted reference range : <=0.2. The reference r shin was not used to int erpret this result as normal/abnormal . [facility] NorthwestJjxzhwlNFIICUCAHN1512-35-33 22:51:00 Test Item Value Reference Range Interpretation Comments PT (test code = PT) 18.8 s 12.0-14.7 [facility] HospitalWtwoexzWYJXJGQLDO7383-96-88 22:51:00 Test Item Value Reference Range Interpretation Comments INR (test code = INR) 1.59 1 0.85-1.17 [facility] NorthwestWcfcgfiSTGFIRFWUW2383-85-54 22:51:00 Test Item Value Reference Range Interpretation Comments PTT (test code = PTT) 30.7 s 22.9-35.8 [facility] [employer] [id number] 15:55:00 Test Item Value Reference Range Interpretation Comments ABO/Rh (test code = ABO/Rh) O POS [facility] [id number] 15:55:00 Test Item Value Reference Range Interpretation Comments Antibody Scrn (test Negative (07/02/21 code = Antibody Scrn) 10:55 AM) [facility] [employer] [id number] 15:55:00 Test Item Value Reference Range Interpretation Comments Glucose Lvl (test code = Glucose Lvl) 97 70-99 [facility] [employer] [id number] 15:55:00 Test Item Value Reference Range Interpretation Comments BUN (test code = BUN) 19 7- [facility] [employer] [id number] 15:55:00 Test Item Value Reference Range Interpretation Comments Creatinine Lvl (test code = Creatinine 1.01 0.50-1.40 Lvl) [facility] [id number] 15:55:00 Test Item Value Reference Range Interpretation Comments Sodium Lvl (test code = Sodium Lvl) 140 135-145 [facility] [employer] [id number] 15:55:00 Test Item Value Reference Range Interpretation Comments Potassium Lvl (test code = Potassium 3.2 3.5-5.1 Lvl) [facility] [employer] [id number] 15:55:00 Test Item Value Reference Range Interpretation Comments Chloride Lvl (test code = Chloride Lvl) 102 95-109 [facility] [id number] 15:55:00 Test Item Value Reference Range Interpretation Comments CO2 (test code = CO2) 31 24-32 [facility] HermUNC HealthWZPCK4432-33-03 15:55:00 Test Item Value Reference Range Interpretation Comments Calcium Lvl (test code = Calcium Lvl) 8.8 8.5-10.5 [place] 033771-10-19 15:55:00 Test Item Value Reference Range Interpretation Comments AGAP (test code = AGAP) 10.2 10.0-20.0 [place] 033771-10-19 15:55:00 Test Item Value Reference Range Interpretation Comments eGFR (test code = eGFR) 54 [place] [address]-10-19 15:55:00 Test Item Value Reference Range Interpretation Comments Segs (test code = Segs) 72.3 45.0-75.0 [place] [address]-10-19 15:55:00 Test Item Value Reference Range Interpretation Comments Lymphocytes (test code = Lymphocytes) 16.8 20.0-40.0 [place] [address]-10-19 15:55:00 Test Item Value Reference Range Interpretation Comments Monocytes (test code = Monocytes) 9.8 2.0-12.0 [place] [address]-10-19 15:55:00 Test Item Value Reference Range Interpretation Comments Basophils (test code = 1.1 See_Comment [Aut omated message] The Basophils) system which ge nerated this result tra nsmitted reference range : <=1.0. The reference r shin was not used to int erpret this result as normal/abnormal . [place] [address]-10-19 15:55:00 Test Item Value Reference Range Interpretation Comments Neutrophils # (test code = Neutrophils 4.7 1.5-8.1 #) [place] [address]-10-19 15:55:00 Test Item Value Reference Range Interpretation Comments Lymphocytes # (test code = Lymphocytes 1.1 1.0-5.5 #) [place] [address]-10-19 15:55:00 Test Item Value Reference Range Interpretation Comments Monocytes # (test code 0.6 See_Comment [Aut omated message] The = Monocytes #) system which generated this result tra nsmitted reference range : <=0.8. The reference r shin was not used to int erpret this result as normal/abnormal . [place] [address]-10-19 15:55:00 Test Item Value Reference Range Interpretation Comments Basophils # (test code 0.1 See_Comment [Aut omated message] The = Basophils #) system which generated this result tra nsmitted reference range : <=0.2. The reference r shin was not used to int erpret this result as normal/abnormal . [facility] HospitalXffiiviPDQSMGPYIH2954-69-28 15:55:00 Test Item Value Reference Range Interpretation Comments WBC (test code = WBC) 6.5 3.7-10.4 [facility] HospitalAzcywtjRSFUTTGNVR9880-04-16 15:55:00 Test Item Value Reference Range Interpretation Comments RBC (test code = RBC) 4.02 4.20-5.40 [facility] HospitalStmjcsdKBJFXKHTVW7949-83-50 15:55:00 Test Item Value Reference Range Interpretation Comments Hgb (test code = Hgb) 11.4 12.0-16.0 [facility] HospitalImxnodrMIVMJRDEUM4043-91-28 15:55:00 Test Item Value Reference Range Interpretation Comments Hct (test code = Hct) 35.0 36.0-48.0 [facility] HospitalBfmjrnkGPQBAYZYDK9359-53-75 15:55:00 Test Item Value Reference Range Interpretation Comments MCV (test code = MCV) 86.9 80.0-98.0 [facility] HospitalLzddkcvKHFGJESZKM7894-20-90 15:55:00 Test Item Value Reference Range Interpretation Comments MCH (test code = MCH) 28.4 pg 27.0-31.0 [facility] HospitalJsxqznvYQYMOEMYNX7686-88-38 15:55:00 Test Item Value Reference Range Interpretation Comments MCHC (test code = MCHC) 32.7 32.0-36.0 [facility] HospitalHsjjjfrVTVNDDOQQX6049-06-24 15:55:00 Test Item Value Reference Range Interpretation Comments RDW (test code = RDW) 14.5 11.5-14.5 [facility] HospitalOvpfienXMBZXYXEWK6743-11-94 15:55:00 Test Item Value Reference Range Interpretation Comments Platelet (test code = Platelet) 256 133-450 [facility] HospitalIfngeajHDTDFSICLV2414-78-87 15:55:00 Test Item Value Reference Range Interpretation Comments MPV (test code = MPV) 8.1 7.4-10.4 [place] [address]-10-19 15:55:00 Test Item Value Reference Range Interpretation Comments PT (test code = PT) 12.2 s 12.0-14.7 [facility]cypohCBQDCZJVSA8981-44-92 15:55:00 Test Item Value Reference Range Interpretation Comments INR (test code = INR) 0.91 1 0.85-1.17 [facility] HospitalIeksipmMZGRKVGIBI3931-87-58 15:55:00 Test Item Value Reference Range Interpretation Comments PTT (test code = PTT) 26.8 s 22.9-35.8 [facility] NorthwestRavrqkuVATDGHSEIK3824-85-50 14:24:00 Test Item Value Reference Range Interpretation Comments Coronavirus (COVID-19) Not Detected MADELINE (test code = (07/02/21 9:24 AM) Coronavirus (COVID-19) MADELINE) [facility]
[2022-12-02] MEDS ORDERED: HYDROMORPHONE HCL 1 MG/ML INJ ONE (20:00)
[2022-12-02 20:05] LABS: Absolute Lymphocytes (CBC) 1.2 K/uL (0.7-4.9); Hematocrit 30.1 % (36.0-45.0); Lymphocytes % 6.7 % (15.3-44.8); MCV 73.9 fL (80-100); MPV 7.5 fL (7.6-11.3); RBC Red Blood Cell Count 4.07 M/uL (3.86-4.86)
--- NOTE | 2022-12-02 20:06 | RAD REPORT ---
EXAM DESCRIPTION: RAD - Chest Single View - 12/02/2022 7:32 pm CLINICAL HISTORY: abdominal pain Chest pain. COMPARISON: Chest Single View dated 09/22/2022; Chest Single View dated 08/19/2022; Chest Single View d ated 08/18/2022; Chest Single View dated 08/17/2022 FINDINGS: Portable technique limits examination quality. The lungs are emphysematous but grossly clear. The heart is normal in size. No displaced fractures.Ce rvical spine hardware plate IMPRESSION: COPD.
[2022-12-02 20:12] LABS: Protime INR 1.02
[2022-12-02] MEDS ORDERED: PROMETHAZINE INJ 25 MG/ML AMP ONE (20:26)
[2022-12-02] MEDS ORDERED: NA CHLORIDE 0.9% 250 ML ONE (20:27)
[2022-12-02 20:46] LABS: Potassium 3.8 mEq/L (3.5-5.1)
[2022-12-02 20:47] LABS: Bilirubin Direct 0.4 mg/dL (0-0.2); Bilirubin Total 0.6 mg/dL (0.2-1.0)
[2022-12-02 20:48] LABS: Albumin 2.8 g/dL (3.4-5.0); Anisocytosis 1+; Blood Morphology Comment NOTED (NOT SEEN); Hypochromasia 1+; Platelet Estimate INCR; Protein, Total 8.3 g/dL (6.4-8.2); White Blood Cell Scan OK (OK)
[2022-12-02 20:50] LABS: Troponin High Sensitivity 250.3 (<58.9)
[2022-12-02 21:08] LABS: Magnesium 2.1
--- NOTE | 2022-12-02 21:12 | RAD REPORT ---
EXAM DESCRIPTION: CTAbdomen Pelvis W Contrast - 12/02/2022 9:04 pm CLINICAL HISTORY: Abdominal pain. ABD PAIN COMPARISON: <Comparisons> TECHNIQUE: Biphasic CT imaging of the abdomen and pelvis was performed with 100 ml non-ionic IV cont rast. All CT scans are performed using dose optimization technique as appropriate and may include automated exposure control or mA/KV adjustment according to patient size. FINDINGS: The lung bases are clear.Small hiatal hernia. The liver, spleen, pancreas, adrenal glands and kidneys are within normal limits. Small left renal ca lculus without hydronephrosis. Small left renal cysts. No bowel obstruction, free air, free fluid or abscess. Moderate stool is retained throughout the colo n. The appendix is normal. No evidence of significant lymphadenopathy. Aortoiliac atherosclerosis. Postsurgical lower lumbar spine. IMPRESSION: No acute intra-abdominal or pelvic finding.
--- NOTE | 2022-12-02 21:28 | EDPHYS ---
Physician Documentation [facility] Name: Neela Staton Age: 77 yrs Sex: Female : 1945 Arrival Date: 12/02/2022 Time: 18:35 Bed 13 Private MD: ED Physician Ankit Gonzalez HPI: 12/02 19:31 This 77 yrs old Female presents to ER via Wheelchair with complaints of Abdominal Pain, snw Flank Pain. 19:31 The patient presents with abdominal pain in the right upper quadrant. Onset: The snw symptoms/episode began/occurred acutely, and became persistent. The symptoms radiate to right back. Associated signs and symptoms: Pertinent positives: anorexia, constipation, nausea, +flatus, constant right upper quad pain. The symptoms are described as sharp. Severity of pain: At its worst the pain was moderate severe in the emergency department the pain is unchanged. It is unknown whether or not the patient has had similar symptoms in the past. as noted. Historical: - Allergies: 19:15 Codeine; ll3 - Home Meds: 19:15 Cymbalta 60 mg Oral cpDR twice a day [Active]; levothyroxine 100 mcg cap once daily ll3 [Active]; furosemide 60 mg Oral tab 2 times per day [Active]; lisinopril 20 mg Oral tab nightly [Active]; potassium chloride 20 mEq Oral TbER 2 times per day [Active]; BRILINTA 90 mg Oral tab 2 times per day [Active]; sertraline 25 mg Oral tab once daily [Active]; midodrine 5 mg Oral tab 3 times per day [Active]; Dulera 200-5 mcg/actuation inhalation HFAA 2 puffs 2 times per day [Active]; - PMHx: 19:15 Atrial fibrillation; Depression; GERD; High Cholesterol; Hypertensive disorder; ll3 Hypothyroidism; neuropathy; - PSHx: 19:15 Cholecystectomy; Total abdominal hysterectomy; Back SX; ll3 - Immunization history:: Client reports receiving the 2nd dose of the Covid vaccine. - Social history:: Smoking status: Patient denies any tobacco usage or history of. ROS: 19:29 Eyes: Negative for injury, pain, redness, and discharge, ENT: Negative for injury, snw pain, and discharge, Neck: Negative for injury, pain, and swelling, Cardiovascular: Negative for chest pain, palpitations, and edema, Respiratory: Negative for shortness of breath, cough, wheezing, and pleuritic chest pain. 19:29 Back: Negative for injury and pain, : Negative for injury, bleeding, discharge, and swelling, MS/Extremity: Negative for injury and deformity, Skin: Negative for injury, rash, and discoloration, Neuro: Negative for headache, weakness, numbness, tingling, and seizure, Psych: Negative for depression, anxiety, suicide ideation, homicidal ideation, and hallucinations. 19:29 Constitutional: Positive for abdominal pain 06/23. 19:29 Abdomen/GI: Positive for abdominal pain, nausea, of the right upper quadrant, pt has had cholecystectomy and hysterectomy. 2 weeks ago pt had endoscopy and colonoscopy, numerous polyps removed. Pt had resultant bloating and is now having constant pain to right upper quad. Exam: 19:24 Constitutional: This is a well developed, well nourished patient who is awake, alert, snw and in no acute distress. Head/Face: Normocephalic, atraumatic. Eyes: Pupils equal round and reactive to light, extra-ocular motions intact. Lids and lashes normal. Conjunctiva and sclera are non-icteric and not injected. Cornea within normal limits. Periorbital areas with no swelling, redness, or edema. 19:24 Neck: Trachea midline, no thyromegaly or masses palpated, and no cervical lymphadenopathy. Supple, full range of motion without nuchal rigidity, or vertebral point tenderness. No Meningismus. Chest/axilla: Normal chest wall appearance and motion. Nontender with no deformity. No lesions are appreciated. Cardiovascular: Regular rate and rhythm with a normal S1 and S2. No gallops, murmurs, or rubs. Normal PMI, no JVD. No pulse deficits. vein stripping yesterday and pt was seen today for dopplers of bilateral legs with normal results Respiratory: Lungs have equal breath sounds bilaterally, clear to auscultation and percussion. No rales, rhonchi or wheezes noted. No increased work of breathing, no retractions or nasal flaring. MS/ Extremity: Pulses equal, no cyanosis. Neurovascular intact. Full, normal range of motion. Neuro: Awake and alert, GCS 15, oriented to person, place, time, and situation. Cranial nerves II-XII grossly intact. Motor strength 5/5 in all extremities. Sensory grossly intact. Cerebellar exam normal. Normal gait. Psych: Awake, alert, with orientation to person, place and time. Behavior, mood, and affect are within normal limits. 19:24 Back: No spinal tenderness. No costovertebral tenderness. Full range of motion. Skin: Warm, dry with normal turgor. Normal color with no rashes, no lesions, and no evidence of cellulitis. 19:24 ENT: Mouth: Oral mucosa: dry, noted to have obvious stomatitis. 19:24 Abdomen/GI: Inspection: distension, Bowel sounds: diminished, in all quadrants, Palpation: moderate abdominal tenderness, severe abdominal tenderness, in the right upper quadrant. 21:26 ECG was reviewed by the Attending Physician. EKG demonstrates normal sinus rhythm at 70 sp3 bpm with normal intervals, normal axis, and normal QRS, nonspecific diffuse ST/T changes without evidence of acute ischemia. QTc is 503 which is borderline. Vital Signs: 19:12 BP 172 / 77; Pulse 81; Resp 18; Temp 97.3(O); Pulse Ox 100% on R/A; Weight 63.5 kg (R); ll3 Height 5 ft. 7 in. (R); Pain 10/10; 21:30 BP 190 / 85; Pulse 86; Resp 21; Pulse Ox 99% on R/A; ll3 23:09 BP 176 / 63; Pulse 93; Resp 19; Pulse Ox 99% on R/A; ll3 19:12 Body Mass Index 21.93 (63.50 kg, 170.18 cm) ll3 19:12 Pain Scale: Adult ll3 MDM: 19:23 Patient medically screened. [facility] 19:27 Data reviewed: vital signs, nurses notes. ED course: vein stripping performed per [facility] vascular surgery Thursday. Pt seen today and bilateral lower extremity dopplers had good results. Dr. Ferguson has stat abd CT ordered for tomorrow, will complete that today. 19:52 Transition of care: After a detail discussion of the patient's case, care is snw transferred to Ankit Gonzalez MD. 19:52 I considered the following discharge prescriptions or medication management in the [facility] emergency department Medications were administered in the Emergency Department. See DAVID Duque for 10/10 pain. Discussed hand off with Dr. Gonzalez. 19:54 Differential diagnosis: acute coronary syndrome, gastritis, Mesenteric ischemia or snw infarction, pancreatitis. 12/02 18:38 Order name: Basic Metabolic Panel; Complete Time: 07:56 snw 12/02 18:38 Order name: CBC with Diff; Complete Time: 20:50 snw 12/02 18:38 Order name: LFT's; Complete Time: 07:56 snw 12/02 18:38 Order name: Magnesium; Complete Time: 07:56 snw 12/02 18:38 Order name: NT PRO-BNP; Complete Time: 07:56 snw 12/02 18:38 Order name: PT-INR; Complete Time: 20:16 snw 12/02 18:38 Order name: Troponin HS; Complete Time: 07:56 snw 12/02 18:38 Order name: Lactate w/ 2H reflex if indic.; Complete Time: 07:56 snw 12/02 18:38 Order name: Urinalysis w/ reflexes; Complete Time: 07:56 snw 12/02 20:49 Order name: CBC Smear Scan; Complete Time: 20:50 EDMS 12/02 21:41 Order name: SARS RAPID; Complete Time: 07:56 ll3 12/02 22:10 Order name: Troponin High Sensitivity; Complete Time: 07:56 ll3 12/02 18:38 Order name: XRAY Chest (1 view); Complete Time: 20:16 snw 12/02 19:24 Order name: CT Abd/Pelvis - IV Contrast Only; Complete Time: 07:56 snw 12/02 18:38 Order name: EKG; Complete Time: 18:40 snw 12/02 18:38 Order name: Cardiac monitoring; Complete Time: 20:18 snw 12/02 18:38 Order name: EKG - Nurse/Tech; Complete Time: 21:08 snw 12/02 18:38 Order name: IV Saline Lock; Complete Time: 19:58 snw 12/02 18:38 Order name: Labs collected and sent; Complete Time: 19:58 snw 12/02 18:38 Order name: O2 Per Protocol; Complete Time: 20:18 snw 12/02 18:38 Order name: O2 Sat Monitoring; Complete Time: 20:18 snw Administered Medications: 19:49 CANCELLED (Other Intervention Used): fentaNYL (PF) IVP 25 mcg IVP once snw 20:18 Drug: HYDROmorphone IVP 1 mg Route: IVP; Site: right antecubital; kr3 23:53 Follow up: Response: No adverse reaction ll3 20:29 Drug: Promethazine IVP 6.25 mg Route: IVP; Site: right antecubital; kr3 23:53 Follow up: Response: No adverse reaction ll3 Disposition: 21:26 I agree with the assessment and plan of care. I reviewed the patient's care provided by sp3 Advanced Practice Provider \T\ agree w/ the diagnosis \T\ care plan. I personally saw the pt \T\ performed a substantive portion of the visit, incldng all aspects of the (History/Exam/Medical Decision Making). Disposition Summary: 12/02/22 21:27 Hospitalization Ordered Hospitalization Status: Observation sp3 Provider: Jayy Linda sp3 [facility] sp3 Condition: Stable sp3 Problem: an acute exacerbation sp3 Symptoms: have worsened sp3 Bed/Room Type: Standard sp3 Room Assignment: 232(12/02/22 22:52) Diagnosis - Subsequent non-ST elevation (NSTEMI) myocardial infarction sp3 Forms: - Medication Reconciliation Form sp3 - SBAR form sp3 Signatures: Dispatcher [employer] EDAda Greer FNP-C FNP-CsnZo [place] RN RN cg Ankit Gonzalez MD MD sp3 Cheri Villar RN RN 3 Imani Tijerina RN RN kr3 Corrections: (The following items were deleted from the chart) 19:49 19:24 fentaNYL (PF) IVP 25 mcg IVP once ordered. snw snw 22:52 21:27 sp3 cg
--- NOTE | 2022-12-02 21:28 | ER ---
Nurse's Notes [facility] Name: Neela Staton Age: 77 yrs Sex: Female : 1945 Arrival Date: 12/02/2022 Time: 18:35 Bed 13 Private MD: Diagnosis: Subsequent non-ST elevation (NSTEMI) myocardial infarction Presentation: 12/02 19:12 Chief complaint: Patient states: States had an upper and lower GI and they removed ll3 about 17 polyps 2 weeks ago and has had right sided abdominal pain ever since, states pain is 10/10. Coronavirus screen: Vaccine status: Patient reports receiving the 2nd dose of the covid vaccine. At this time, the client does not indicate any symptoms associated with coronavirus-19. Ebola Screen: No symptoms or risks identified at this time. Initial Sepsis Screen: Does the patient meet any 2 criteria? No. Patient's initial sepsis screen is negative. Does the patient have a suspected source of infection? No. Patient's initial sepsis screen is negative. Risk Assessment: Do you want to hurt yourself or someone else? Patient reports no desire to harm self or others. Onset of symptoms was November 18, 2022. Care prior to arrival: Medication(s) given: Tylenol, at 3:30. 19:12 Method Of Arrival: Wheelchair ll3 19:12 Acuity: BETHANY 3 ll3 Triage Assessment: 19:15 General: Appears uncomfortable, Behavior is calm, cooperative. Pain: Complains of pain ll3 in anterior aspect of right lateral abdomen Pain does not radiate. Pain currently is 10 out of 10 on a pain scale. Pain began 2 weeks ago Is continuous. GI: Abdomen is round non-distended, Abdomen is tender to palpation in right upper quadrant and right lower quadrant Reports constipation, nausea, vomiting. Derm: Skin is pink, warm \T\ dry. Historical: - Allergies: 19:15 Codeine; ll3 - Home Meds: 19:15 Cymbalta 60 mg Oral cpDR twice a day [Active]; levothyroxine 100 mcg cap once daily ll3 [Active]; furosemide 60 mg Oral tab 2 times per day [Active]; lisinopril 20 mg Oral tab nightly [Active]; potassium chloride 20 mEq Oral TbER 2 times per day [Active]; BRILINTA 90 mg Oral tab 2 times per day [Active]; sertraline 25 mg Oral tab once daily [Active]; midodrine 5 mg Oral tab 3 times per day [Active]; Dulera 200-5 mcg/actuation inhalation HFAA 2 puffs 2 times per day [Active]; - PMHx: 19:15 Atrial fibrillation; Depression; GERD; High Cholesterol; Hypertensive disorder; ll3 Hypothyroidism; neuropathy; - PSHx: 19:15 Cholecystectomy; Total abdominal hysterectomy; Back SX; ll3 - Immunization history:: Client reports receiving the 2nd dose of the Covid vaccine. - Social history:: Smoking status: Patient denies any tobacco usage or history of. Screenin:05 [facility] ED Fall Risk Assessment (Adult) History of falling in the last 3 months, ll3 including since admission No falls in past 3 months (0 pts) Confusion or Disorientation No (0 pts) Intoxicated or Sedated No (0 pts) Impaired Gait No (0 pts) Mobility Assist Device Used Yes (1 pt) Altered Elimination No (0 pt) Score/Fall Risk Level 0 - 2 = Low Risk Oriented to surroundings, Maintained a safe environment, Educated pt \T\ family on fall prevention, incl call for assistance when getting out of bed. Abuse screen: Denies threats or abuse. Denies injuries from another. Nutritional screening: No deficits noted. Tuberculosis screening: No symptoms or risk factors identified. Assessment: 19:15 General: See triage assessment. ll3 19:15 GI: Bowel sounds present X 4 quads. ll3 Vital Signs: 19:12 BP 172 / 77; Pulse 81; Resp 18; Temp 97.3(O); Pulse Ox 100% on R/A; Weight 63.5 kg (R); ll3 Height 5 ft. 7 in. (R); Pain 10/10; 21:30 BP 190 / 85; Pulse 86; Resp 21; Pulse Ox 99% on R/A; ll3 23:09 BP 176 / 63; Pulse 93; Resp 19; Pulse Ox 99% on R/A; ll3 19:12 Body Mass Index 21.93 (63.50 kg, 170.18 cm) ll3 19:12 Pain Scale: Adult ll3 ED Course: 18:35 Patient arrived in ED. rg4 18:36 Ada Stallworth FNP-C is PHCP. snw 18:36 Dee, Robin, MD is Attending Physician. snw 19:15 Triage completed. ll3 19:15 Arm band placed on Patient placed in waiting room, Patient notified of wait time. ll3 19:26 Radiology exam delayed due to IV insertion attempt and/or patient not having jg10 appropriate IV at this time. 19:26 Radiology exam delayed due to lab results not completed at this time. jg10 19:34 XRAY Chest (1 view) In Process Unspecified. EDMS 19:51 Imani Tijerina, SUHAIL is Primary Nurse. kr3 19:58 Basic Metabolic Panel Sent. as7 19:58 CBC with Diff Sent. as7 19:58 LFT's Sent. as7 19:58 Magnesium Sent. as7 19:58 NT PRO-BNP Sent. as7 19:58 PT-INR Sent. as7 19:58 Troponin HS Sent. as7 19:58 Inserted saline lock: 20 gauge in right antecubital area, using aseptic technique. as7 Blood collected. 20:02 Attending Physician role handed off by Robin Dee MD sp3 20:02 Ankit Gonzalez MD is Attending Physician. sp3 20:50 Notified ED physician of a critical lab result(s). troponin of 250 [address] Gonzalez notified. bb 21:04 CT completed. jg10 21:06 CT Abd/Pelvis - IV Contrast Only In Process Unspecified. EDMS 21:27 James Linda MD is Hospitalizing Provider. sp3 21:27 Hospitalizing Provider role handed off by James Linda MD sp3 21:27 Jayy Linda MD is Hospitalizing Provider. sp3 23:08 Patient has correct armband on for positive identification. Placed in gown. Bed in low ll3 position. Call light in reach. Side rails up X 1. Adult w/ patient. 23:08 No provider procedures requiring assistance completed. ll3 23:52 Patient admitted, IV remains in place. ll3 Administered Medications: 19:49 CANCELLED (Other Intervention Used): fentaNYL (PF) IVP 25 mcg IVP once snw 20:18 Drug: HYDROmorphone IVP 1 mg Route: IVP; Site: right antecubital; kr3 23:53 Follow up: Response: No adverse reaction ll3 20:29 Drug: Promethazine IVP 6.25 mg Route: IVP; Site: right antecubital; kr3 23:53 Follow up: Response: No adverse reaction ll3 Medication: 23:08 VIS not applicable for this client. ll3 Outcome: 21:27 Decision to Hospitalize by Provider. iveth 23:52 Admitted to Med/surg accompanied by tech, via wheelchair, room 232, with chart, Report ll3 called to SUHAIL Mayes 23:52 Condition: stable 23:52 Instructed on the need for admit. 23:53 Patient left the ED. ll3 Signatures: Dispatcher [employer] EDMS Ada Stallworth, TAXATION ECONOMIST-C TAXATION ECONOMIST-Csnw Sara Roberts RN RN Gunjan Javier rg4 Ankit Gonzalez MD MD sp3 Cheri Villar RN RN ll3 Imani Tijerina RN RN kr3 Doretha Davis0 Kalani Pathak as7 Corrections: (The following items were deleted from the chart) 19:23 19:15 GI: Abdomen is round non-distended, Abdomen is tender to palpation in right upper ll3 quadrant and right lower quadrant ll3
[2022-12-02 22:23] LABS: Specific Gravity > 1.030 (1.005-1.030); Urine Bacteria None Seen /HPF (<20); Urine Bilirubin NEGATIVE (Negative); Urine Blood Negative (Negative); Urine Clarity Clear (Clear); Urine Color Yellow (Yellow); Urine Crystals Unidentified Few /HPF (None Seen); Urine Glucose NEGATIVE (Negative); Urine Protein 1+ (Negative); Urine RBC <5 /HPF (None Seen); Urine Urobilinogen Normal (Normal); Urine pH 6.5 (5.0-7.0)
[2022-12-02 22:26] LABS: SARS-CoV-2 Antigen Rapid Res Negative (Negative)
[2022-12-02] MEDS ORDERED: ONDANSETRON 4 MG/2 ML VIAL IV PRN (23:21)
[2022-12-03] MEDS ORDERED: AMLODIPINE 5 MG TAB PO ONE ×2 (00:19→12:12)
[2022-12-03 00:41] VITALS: BMI 21.9
[2022-12-03] MEDS: DIAZEPAM 5 MG TABLET PO PRN ×2 (00:44→21:06)
[2022-12-03] MEDS: HYDROCODONE/APAP 5/325 MG TAB PO PRN ×4 (00:44→22:56)
[2022-12-03 03:41] LABS: Absolute Lymphocytes (CBC) 1.4 K/uL (0.7-4.9); Hematocrit 25.4 % (36.0-45.0); Lymphocytes % 9.9 % (15.3-44.8); MCV 74.3 fL (80-100); MPV 7.5 fL (7.6-11.3); RBC Red Blood Cell Count 3.42 M/uL (3.86-4.86)
[2022-12-03 03:55] LABS: Magnesium 1.9 mg/dL (1.6-2.4); Phosphorus 2.1 mg/dL (2.5-4.9); Potassium 3.3 mEq/L (3.5-5.1)
[2022-12-03 03:58] LABS: Troponin High Sensitivity 212.3 pg/mL (<58.9)
[2022-12-03] MEDS ORDERED: HOME MED 1 EA UNK (Fluticasone/Umeclidin/Vilanter [Trelegy Ellipta 100-62.5-25] Blst.W.Dev IH SCH (09:00)
[2022-12-03] MEDS: MAGNESIUM OXIDE 400 MG TAB PO SCH ×2 (09:00→21:00)
[2022-12-03] MEDS: MIDODRINE HCL 5 MG TABLET PO SCH ×3 (09:00→17:00)
[2022-12-03] MEDS: ASPIRIN 81 MG CHEWABLE TABLET PO SCH (09:03)
[2022-12-03] MEDS: TICAGRELOR 90 MG TABLET PO SCH ×2 (09:03→21:06)
[2022-12-03] MEDS: SERTRALINE HCL 50 MG TAB PO SCH (09:16)
[2022-12-03] MEDS: FUROSEMIDE 20 MG TABLET PO SCH ×2 (09:17→16:34)
[2022-12-03] MEDS: DULOXETINE 30 MG CAP PO SCH ×2 (09:18→21:06)
[2022-12-03] MEDS: POTASSIUM CL SA 10 MEQ TAB PO SCH ×3 (09:19→21:06)
[2022-12-03] MEDS: LEVOTHYROXINE SOD 0.1 MG TAB PO SCH (09:24)
[2022-12-03] MEDS ORDERED: cloNIDine HCL 0.1 MG TAB PO PRN (12:01)
[2022-12-03] MEDS: ACETAMINOPHEN 500 MG TAB PO PRN (13:34)
[2022-12-03 13:36] LABS: Troponin High Sensitivity 247.7 pg/mL (<58.9)
[2022-12-03 14:47] VITALS: O2SAT 96
--- NOTE | 2022-12-03 16:35 | CON ---
Date of Consultation: 12/03/2022 Reason For Consultation: Elevated troponin. History Of Present Illness: This is a 77-year-old female with past medical history of peripheral vas cular disease, coronary artery disease, atrial fibrillation, dyslipidemia, acid reflux, who presented to the emergency room with some abdominal discomfort. She apparently had colonoscopy recently, mult iple polyps removed. She had a CT scan of the abdomen that was negative. She declines having any ch est pain, but troponin was borderline elevated. Past Medical History: As outlined above in HPI. Medications: Refer to reconciliation sheet for detailed list. Allergies: NO KNOWN DRUG ALLERGIES. Family History: No premature coronary artery disease or cancer. Social History: Does not smoke or drink. Does not use any drugs. Review of Systems: All systems reviewed and they were negative except what mentioned in HPI. Physical Examination: Vital Signs: Reviewed. Head and Neck: Pupils are equal, reactive to light. Intact eye movements. No JVD. No cervical lym phadenopathy. Neck is supple. Thyroid is not enlarged. Lungs: Clear to auscultation bilaterally. No rhonchi, wheezing, or crackles. No accessory muscle u se. Heart: Irregular. No extra sounds. Abdomen: Soft, nontender. Bowel sounds positive. No organomegaly. No masses or hernia. No rigidi ty or rebound. Extremities: No clubbing or cyanosis. Intact pulses. Skin: No rash. Neurologic: Alert, awake, oriented x3. No acute focal deficits appreciated. Investigations: Troponin peaked at 250. BUN is 15, creatinine 0.74, and hemoglobin is 8.1. Assessment And Recommendations: 1.Elevated troponin, possible non-ST elevation myocardial infarction. Plan for coronary angiogram t omorrow. Keep n.p.o. past midnight. 2.Peripheral vascular disease, status post intervention recently. Continue Brilinta and baby aspiri n. 3.Hypertension. Blood pressure is controlled. SR/MODL Voice ID: [id number] Report ID: [id number]
--- NOTE | 2022-12-03 17:22 | EKG ---
Test Date: 2022-12-02 Test Time: 20:40:48 Contract Technician: ELADIO MEASUREMENT RESULTS: Intervals: Rate: 78 FL: 146 QRSD: 70 QT: 442 QTc: 503 [place]: P: 89 FL: 146 QRS: 26 T: 101 INTERPRETIVE STATEMENTS: Normal sinus rhythm with sinus arrhythmia Nonspecific ST and T wave abnormality Prolonged QT Abnormal ECG Compared to ECG 09/22/2022 14:04:50 No significant changes Electronically Signed On 12-03-22 17:20:32 CDT by Ortiz Domingo
[2022-12-03] MEDS ORDERED: ATORVASTATIN 40 MG TAB PO SCH (21:00)
[2022-12-03] MEDS ORDERED: PANTOPRAZOLE 40MG TABLET PO SCH (21:00)
[2022-12-03] MEDS ORDERED: HOME MED 1 EA UNK (Esomeprazole Mag Trihydrate [Nexium] 40 MG Capsule.Dr) PO SCH (21:00)
[2022-12-03] MEDS ORDERED: lisinopriL 20 MG TAB PO SCH (21:00)
[2022-12-04] MEDS: LEVOTHYROXINE SOD 0.1 MG TAB PO SCH (06:04)
[2022-12-04] MEDS: ASPIRIN 81 MG CHEWABLE TABLET PO SCH (06:04)
[2022-12-04] MEDS: TICAGRELOR 90 MG TABLET PO SCH (06:04)
[2022-12-04 06:41] LABS: Absolute Lymphocytes (CBC) 1.2 K/uL (0.7-4.9); Hematocrit 30.4 % (36.0-45.0); MCV 74.2 fL (80-100); MPV 7.5 fL (7.6-11.3)
[2022-12-04 07:00] LABS: Magnesium 2.1 mg/dL (1.6-2.4); Potassium 3.4 mEq/L (3.5-5.1)
[2022-12-04] MEDS ORDERED: ONDANSETRON 4 MG/2 ML VIAL IV PRN (07:11)
--- NOTE | 2022-12-04 07:12 | ECHO ---
HEIGHT: 5 ft 7 in WEIGHT: 140 lb 0 oz DATE OF STUDY: 12/03/[address]: Jayy Linda MD 2-DIMENSIONAL: YES M.MODE: YES DOPPLER: YES COLOR FLOW: YES TDS: PORTABLE: YES DEFINITY: BUBBLE STUDY: DIAGNOSIS: NON ST ELEVATION MYOCARDIAL INFARCTION CARDIAC HISTORY: CATHERIZATION: SURGERY: PROSTHETIC VALVE: PACEMAKER: MEASUREMENTS (cm) DIASTOLIC (NORMALS) SYSTOLIC (NORMALS) IVSd 0.9 (0.6-1.2) LA Diam 4.3 (1.9-4.0) LVEF 62% LVIDd 4.6 (3.5-5.7) LVIDs 3.1 (2.0-3.5) %FS 33% LVPWd 1.1 (0.6-1.2) Ao Diam 3.1 (2.0-3.7) 2 DIMENSIONAL ASSESSMENT: RIGHT ATRIUM: NORMAL LEFT ATRIUM: ENLARGED RIGHT VENTRICLE: NORMAL LEFT VENTRICLE: NORMAL TRICUSPID VALVE: MILD TRICUSPID REGURGITATION MITRAL VALVE: MILD MITRAL REGURGITATION PULMONIC VALVE: NORMAL AORTIC VALVE: NORMAL PERICARDIAL EFFUSION: NONE AORTIC ROOT: NORMAL LEFT VENTRICULAR WALL MOTION: NORMAL DOPPLER/COLOR FLOW: SEE BELOW COMMENTS: 1. NORMAL LEFT VENTRICULAR EJECTION FRACTION 60-65% 2. NORMAL WALL MOTION 3. LEFT ATRIAL ENLARGEMENT 4. MILD TRICUSPID REGURGITATION, MILD MITRAL REGURGITATION TECHNOLOGIST: JOSELUIS EVANS
--- NOTE | 2022-12-04 07:29 | HP ---
LUIS/STEPHANI Voice ID: [id number] [id number]
[2022-12-04] MEDS: MAGNESIUM OXIDE 400 MG TAB PO SCH (09:00)
[2022-12-04] MEDS ORDERED: Fluticasone/Umeclidin/Vilanter [Trelegy Ellipta 100-62.5-25] Blst.W.Dev IH SCH (09:00)
--- NOTE | 2022-12-04 10:13 | HP ---
Date of Admission: 12/03/2022 Chief Complaint: Abdominal pain. History Of Present Illness: This is a 77-year-old female patient with coronary artery disease, peripheral vascular disease, and multiple other chronic comorbidities, came into emergency room with complaints of abdominal pain and after she was evaluated in the ER, she was noted to have abnormal cardiac enzymes and I was contacted requesting admission to the hospital with non-STEMI. The patient denies any chest pain. Denies any shortness of breath or diaphoresis. She has been seeing Dr. Martin, vascular surgeon for her peripheral vascular disease and I did talk to him today and he informed me that in the past he had placed multiple stents in her right leg, almost entirely between the right groin and the right knee area and this week on Thursday, which is day before yesterday, he did another procedure, where on same right leg, had 2 to 3 different areas of blockage inside the stent and also had blockage proximal and distal to the stent area, so he was able to percutaneously intervene all these areas day before yesterday. He did not put another stent. Yesterday, the patient noted that she has bruising on the right posterior and lateral and to some extent anterior abdominal wall area and she does not report any fall or injury. The vascular approach that Dr. Martin performed was through her right foot and there was no puncture site in the groin. CAT scan of the abdomen and pelvis done in the emergency room yesterday after she came in, was negative for any acute intraabdominal changes. Allergies: TO CODEINE. Review of Systems: GI: As mentioned above. Cardiovascular: As mentioned above. All other systems reviewed and negative. Medications: Aspirin 81 mg daily, Brilinta 90 mg 2 times a day, duloxetine 60 mg 2 times a day, Trelegy inhaler 1 puff daily, esomeprazole 40 mg daily, furosemide 40 mg takes 1-1/2 tablet 2 times a day, levothyroxine 100 mcg daily, Linzess 145 mcg daily, lisinopril 20 mg daily at bedtime, magnesium oxide 400 mg 2 times a day, Metamucil 3 fiber gummies daily, methocarbamol 500 mg 3 times a day as needed for back pain and muscle spasm, midodrine 5 mg 3 times a day, potassium chloride 20 mEq 3 times a day, Miacalcin nasal spray daily, sertraline 25 mg daily, trazodone 50 mg takes 3 tablets daily at bedtime. Past Medical History: Significant for hypothyroidism, COPD, hypertension, hyperlipidemia, coronary artery disease, paroxysmal atrial fibrillation, aortic atherosclerosis, peripheral vascular disease, gastroesophageal reflux disease, kidney stone, osteoarthritis at multiple sites, anemia, anxiety, hypokalemia, insomnia, hypomagnesemia. Past Surgical History: Coronary artery stent placement on December 18, 2021, Watchman's procedure on november 20, [address] Domingo, right leg stent placement May 2021, left leg stent placement 2000, cholecystectomy, hysterectomy, back surgery, cervical spine surgery. Family History: Father had heart disease. Mother had diabetes. Social History: Prior history of smoking, alcohol use negative. Physical Examination: Vital Signs: Temperature 98.8, pulse 93, respiratory rate 18, blood pressure 142/72, oxygen saturation 91% on room air. Height 5 feet and 7 inches, weight 140 pounds. General: Awake, alert, oriented, not in distress. HEENT: Head atraumatic, normocephalic. Conjunctivae nonerythematous. Sclerae white. Mouth, no thrush or edema noted. Ears/Nose, no mass, lesion, discharge noted. Neck: Supple. No JVD, lymph nodes, bruit, thyromegaly noted. Lungs: Bilateral good equal air entry. Clear to auscultation. No rhonchi. No rales. Heart: Normal heart sounds, no murmur or gallop. Abdomen: Patient has bruising of her lateral and posterior abdominal wall skin and to some extent, anterior. There is no hematoma. Abdomen soft. No guarding, rigidity, tenderness, or distention. Bowel sounds normoactive. Extremities: No leg edema. No calf tenderness. Skin: No rash, ulcer, cellulitis. Lymphatics: No lymph node enlargement in neck, supraclavicular, infraclavicular region. Neuro: No focal neurological deficit. Chest: Unremarkable. External Genitalia: Deferred. Rectal: Deferred. Laboratory Data: Yesterday; white count 17.4, hemoglobin 9.5, platelets 589. Today; white count 14.2, hemoglobin 8.1, platelets 470. Yesterday; sodium 133, potassium 3.8, chloride 97, bicarb 30, BUN 19, creatinine 0.89, glucose 115. AST 138, ALT 95, alkaline phosphatase 297. Troponin 250 on the first set, second set 215, third set 212. Today; sodium 135, potassium 3.3, chloride 101, bicarb 29, BUN 15, creatinine 0.74, glucose 103. Her chest x-ray shows changes of COPD and CAT scan of the abdomen and pelvis does not show any acute intraabdominal changes or no acute pelvic findings. Impression: 1. Non-ST elevation myocardial infarction. 2. Coronary artery disease. 3. Hypertension. 4. Chronic atrial fibrillation. 5. Peripheral vascular disease. 6. Hyperlipidemia. 7. Chronic obstructive pulmonary disease. 8. Hypothyroidism. 9. Gastroesophageal reflux disease. 10. Anemia. 11. Hypokalemia. 12. Anxiety. 13. Insomnia. Plan: We will go ahead and admit the patient to hospital for further evaluation and management of this problem. The patient is appropriate for inpatient and is expected to spend 2 midnights in hospital. We will go ahead and continue her anti-platelet therapy. Details were discussed with field laborer, Dr. Domingo, who is planning to do cardiac cath procedure tomorrow. I did communicate with the patient's vascular surgeon, Dr. Martin also. At this point, Dr. Martin and I both believe that the bruising that she has on her right side of the abdominal wall is likely due to trauma. She does not recollect any trauma, but at this point, there is no acute intraabdominal findings to worry about, so we will just have to monitor this closely. Anemia quintanilla, she does not need any intervention except monitoring. For low potassium, we will continue to replace potassium per order. For her hypertension, continue antihypertensive therapy and for cholesterol, we will continue her statin therapy. We will get a fasting lipid profile tomorrow morning. Details and plan of treatment discussed with the patient this morning. I will see her tomorrow morning for followup. LUIS/MODL Voice ID: [id number]
[2022-12-04] MEDS ORDERED: REGADENOSON 0.4 MG/5 ML SYR IV ONE (10:18)
[2022-12-04] MEDS: SERTRALINE HCL 50 MG TAB PO SCH (11:29)
[2022-12-04] MEDS: DULOXETINE 30 MG CAP PO SCH (11:30)
[2022-12-04] MEDS: POTASSIUM CL SA 10 MEQ TAB PO SCH (11:30)
[2022-12-04] MEDS: FUROSEMIDE 20 MG TABLET PO SCH (11:30)
[2022-12-04] MEDS: ACETAMINOPHEN 500 MG TAB PO PRN (11:33)
--- NOTE | 2022-12-04 11:34 | RAD REPORT ---
EXAM DESCRIPTION: NM - Rest Stress Cardiac Imaging - 12/04/2022 11:11 am CLINICAL HISTORY: . Chest pain. COMPARISON: No comparisons TECHNIQUE: The patient was administered approximately 10.8 mCi of Tc 99m Sestamibi prior to resting SPECT imaging of the heart. The patient was then administered approximately 28.9 mCi of Tc 99m Sestam ibi following exercise or pharmacologic stress. Multiplanar SPECT images were reviewed. FINDINGS: Splanchnic uptake specially on the rest images somewhat limits evaluation. No stress induc ed ischemic defect is seen to suggest stress induced ischemia. Moderate-sized fixed defect along the apical and mid segments of the left ventricle inferior and inferolateral pereyra. The end diastolic volume is 85 ml, the end systolic volume is 29 ml, and the ejection fraction is 66 %. IMPRESSION: No scintigraphic evidence of stress induced ischemia. Moderate-sized fixed defect along the apical and mid segments of the inferior and inferolateral pereyra , suggestive of an infarct. Normal left ventricular ejection fraction, 66%.
--- NOTE | 2022-12-04 11:50 | TREADPHA ---
DX: NON ST ELEVATION MYOCARDIAL INFARCTION Date of Study: 12/04/2022 Ht: 5' 7 " Wt: 140 lb 0 oz Consulting Physician: JT MEDICATIONS: TYLENOL, NORCO, ASPIRIN, LIPITOR, CATAPRES, VALIUM, CYMBALTA, LASIX, SYNTHROID, LISINOPRIL, MAGNESIUM OXIDE, PROAMATINE, ZOFRAN, PROTONIX, KLOR-CON, ZOLOFT, BRILINTA HISTORY: CARDIAC STENTS TIMES TWO, HYPERTENSION, THYROID, ATRIAL FIBRILLATION, POST WATCHMAN 2021 PHYSICIAL EXAMINATION: RESTING B.P.: 176/70 RESTING H.R.: 79 RESTING EKG: PROTOCOL: PHARMACOLOGIC EXERCISE TIME: 3:30 B.P. AT PEAK STRESS: 140/67 IMPRESSION: LEXISCAN STRESS PERFORMED ORDERED. CARDIOLITE INJECTED PER PROTOCOL. NO SUPRAVENTRICULAR TACHYCARDIA, NO PREMATURE VENTRICULAR COMPLEXES, NO ARRHYTHMIAS NOTED. PATIENT DENIES ANY SHORTNESS OF BREATH OR ANGINA. NO ELECTROCARDIOGRAM CHANGES WITH LEXISCAN.
--- NOTE | 2022-12-04 12:23 | PN ---
Date of Progress Note: 12/04/2022 Subjective: Seen by bedside. Doing clinically doing well. No chest pain, shortness of breath, orth opnea, cough, nausea, vomiting, diarrhea. All other systems reviewed and they were negative. Physical Examination: Vital Signs: Reviewed. Head and Neck: Pupils are equal, reactive to light. Intact eye movements. No JVD. No cervical lym phadenopathy. Neck is supple. Thyroid is not enlarged. Lungs: Clear to auscultation bilaterally. No rhonchi, wheezing, or crackles. No accessory muscle u se. Heart: Irregular. No extra sounds. Abdomen: Soft, nontender. Bowel sounds positive. No organomegaly. No masses or hernia. No rigidi ty or rebound. Extremities: No edema, clubbing, or cyanosis. Intact pulses. Skin: No rash. Neurologic: Alert, awake, oriented x3. No acute focal deficits appreciated. Investigations: BUN 13, creatinine 0.7, troponin 247, and LDL is 149. Stress test was negative for ischemia. Assessment And Recommendations: 1.Elevated troponin. Negative stress test for ischemia. No further cardiac workup is recommended d uring this hospital stay. From Cardiology standpoint, the patient can be released to follow up as an outpatient. Ejection fraction on echo was normal. 2.Dyslipidemia. Continue Lipitor 80 mg at bedtime. 3.Chronic heart failure, diastolic, euvolemic, on Lasix. Continue current management. SR/MODL Voice ID: [id number] Report ID: [id number]
[2022-12-04 13:26] VITALS: BP 137/90; TEMP 98.6
[2022-12-04] MEDS ORDERED: ATORVASTATIN 80 MG TAB PO SCH (21:00)
--- NOTE | 2022-12-04 23:23 | DS ---
Date of Discharge: 12/04/2022 Disposition: Discharged to go home. Physical Examination: HEENT: Unremarkable. Lungs: Clear to auscultation. Heart: Sounds normal. Abdomen: Soft. Bowel sounds normal. No guarding, rigidity, tenderness, or distention. Extremities: No leg edema. Skin: Presence of large area of bruising on the right posterolateral and anterior abdominal wall and this bruising is more today than yesterday. Laboratory Data: Upon admission white count was 17.4, hemoglobin 9.5, and platelets 589. Yesterday white count was 14.2, hemoglobin 8.1, and platelets 470. Today white count is 16.6, hemoglobin 9.5, and platelets 608. Upon admission sodium was 133, potassium 3.8, chloride 97, bicarb 30, BUN 19, cre atinine 0.89 glucose 115, AST 138, ALT 95, and alkaline phosphatase 297. Initial troponin 250, secon d troponin 215, third troponin 212, and last troponin 247. Last chemistry today sodium is 133, potas sium 3.4, chloride 98, bicarb 29, BUN 13, creatinine 0.79, and glucose 123. Total cholesterol 209, t riglyceride 221, LDL 149, and HDL 60. Echocardiogram shows ejection fraction 62% and mild tricuspid and mitral regurgitation. Lexiscan stress test came back negative for stress-induced ischemia. Final Diagnoses: 1.Non-ST elevation myocardial infarction. 2.Coronary artery disease. 3.Anemia, unspecified. 4.Abnormal liver function test. 5.Hypertension. 6.Chronic atrial fibrillation. 7.Peripheral vascular disease. 8.Hyperlipidemia. 9.Chronic obstructive pulmonary disease. 10.Hypothyroidism. 11.Gastroesophageal reflux disease. 12.Hypokalemia. 13.Anxiety. 14.Insomnia. Hospital Course: This 77-year-old very pleasant female patient came into emergency room with complai nts of abdominal pain. Please see dictated H and P for more information. After the patient was eval uated in the ER, she was admitted to the hospital. Her cardiac enzymes were abnormal, consistent wit h non-STEMI. At home she takes aspirin and Brilinta and these 2 antiplatelet therapies were continue d. Cardiology consultation was requested from Dr. Domingo. The patient has extensive bruising on her right abdominal wall and she does not recollect or report any history of fall or injury, but that is what we are suspecting is the underlying cause for this large area of bruising. In any case Dr. jT wells saw her yesterday and we talked about possibility of doing cardiac cath on her, which was ayah sarah scheduled for today, but after I saw her this morning, I noticed that her bruising was worse toda y compared to yesterday, so obviously I was concerned about possibility of more bleeding in this area and more serious complication with bleeding because the procedure of cardiac cath will require IV he patricia use. So I did communicate with Dr. Domingo and we both agreed about concern of bleeding with he patricia use during the cardiac cath procedure and so we decided to do Lexiscan stress test, which was d one today and it came back negative so the patient was discharged to go home in stable condition. Th e patient's LDL is still higher than goal so she takes atorvastatin 40 mg daily. I have instructed h er to take 2 tablets daily so total dose will be 80 mg daily. We will see her at our office for outp atient followup and we will monitor her liver function as well as her lipid profile on outpatient bas is. Her WBC was elevated during this hospital admission, but she does not have any signs or symptoms of any infection anywhere. Chest x-ray was negative for any acute changes. Urinalysis was normal. Clinically, there is no definite evidence of any infection. 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 I have ordered blood cultures today and I will follow up on those results as well. All these details were discussed with the patient's daughter and the patient as well as her this morning. LUIS/MODL Voice ID: [id number] Report ID: [id number]
== END 2022-12-04 14:25 | disposition home or self-care (01) | DRG 281 ==
LOC: ER 18:27 → ERHOLD 21:40 → 2ND 23:00
PROVIDERS: ADMIT Internal Medicine; ATTEND Internal Medicine
DX: I21.4 Non-ST elevation (NSTEMI) myocardial infarction (principal); I48.20 Chronic atrial fibrillation, unspecified; I50.32 Chronic diastolic (congestive) heart failure; I11.0 Hypertensive heart disease with heart failure; E03.9 Hypothyroidism, unspecified; D64.9 Anemia, unspecified; E87.6 Hypokalemia; G47.00 Insomnia, unspecified; F41.9 Anxiety disorder, unspecified; I73.9 Peripheral vascular disease, unspecified; I08.1 Rheumatic disorders of both mitral and tricuspid valves; K21.9 Gastro-esophageal reflux disease without esophagitis; E78.00 Pure hypercholesterolemia, unspecified; I25.10 Atherosclerotic heart disease of native coronary artery without angina pectoris; D72.829 Elevated white blood cell count, unspecified; S30.1XXA Contusion of abdominal wall, initial encounter; R77.8 Other specified abnormalities of plasma proteins; R94.5 Abnormal results of liver function studies; Z90.49 Acquired absence of other specified parts of digestive tract; Z88.5 Allergy status to narcotic agent; Z90.710 Acquired absence of both cervix and uterus; Z79.890 Hormone replacement therapy; Z79.899 Other long term (current) drug therapy; Z20.822 Contact with and (suspected) exposure to COVID-19
CPT/HCPCS: 36415; 71045; 74177; 78452; 80048; 80061; 80076; 81001; 82550; 83605; 83735; 83880; 84100; 84484; 85025; 85610; 87040; 87811; 93005; 93017; 93306; 96374; 96375; 99285; A9500; J1170; J2550; J2785; J7050; Q9967

== ENCOUNTER 2023-03-16 13:29 | Emergency (ER) | payer OTHER ==
--- OUTSIDE RECORDS SUMMARY | 2023-03-16 13:51 | XMS REPORT | Continuity of Care Document ---
:1945 Author Organization [facility] t Address [address] [place] [address] Care Team Providers Name Role Phone Asked, No Pcp Primary Care Physician Unavailable [id number] Attending Clinician Unavailable ARASH CONNELL Attending Clinician Unavailable ARASH CONNELL Attending Clinician Unavailable RICHIE MARTIN Attending Clinician Unavailable Ortiz Domingo Attending Clinician Unavailable Kenny Medley Attending Clinician Unavailable LAKSHMI VELEZ Attending Clinician Unavailable [id number] Admitting Clinician Unavailable ARASH CONNELL Admitting Clinician Unavailable Jayy Linda Admitting Clinician Unavailable Ortiz Domingo Admitting Clinician Unavailable Payers Payer Name Policy Type Policy Number Effective Date Expiration Date S ourzeynep AETNA MEDICARE [id number] 2020 2024 PPO 00:00:00 00:00:00 AETM ISSAC [id number] Problems Condition Condition Condition Status Onset Resolution Last Treating Co mments Source Name Details Category Date Date Treatment Clinician Date UNK UNK Diagnosis Active 2022-04-10 Mem oria Active 03-05 10:25:00 l 03/05/2022 00:00: Luis mckeon 00 [facility] OCCLUDED OCCLUDED Diagnosis Active 2021-12-04 Memoria RIGHT RIGHT 11-07 21:46:00 l FEMORAL FEMORAL 00:00: Obie ARTERY S/P ARTERY S/P 00 PROCED PROCED Active 11/07/2021 [facility] Post-opera Post-opera Disease Active U T tive state tive state 10-15 He alth 00:00: 00 AFIB AFIB Diagnosis Active 2021-09-29 Mem oria Active 09-27 11:55:00 l 09/27/2021 00:00: Luis mckeon 00 [facility] CHEST PAIN CHEST Diagnosis Active 2021-09-27 Memoria PAIN 09-27 19:49:00 l Active 00:00: Obie 09/27/2021 00 [facility] DISORDER DISORDER Diagnosis Active 2021-11-07 Memoria OF OF 09-24 21:47:00 l ARTERIES ARTERIES 00:00: Luis mckeon Active 00 09/24/2021 [facility] 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 U T [...] fibrillati fibrillati He rmann on on 10/02/2021 [facility] Embolism Embolism Problem 2021-11-13 Memoria and and 22:44:38 l 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 of of arteries arteries of the of [facility] extremitie s s 11/13/2021 [facility] Atrial Atrial Problem Resolve 2022-05-26 Mem oria fibrillati fibrillati d 03:23:33 l on on [place] (disorder) (disorder) Resolved Problem 05/26/2022 Medical Group,[facility] Deep Deep Problem Resolve 2022-05-26 Eric oracio venous venous d 03:23:33 l 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 (disorder) (disorder) Resolved Problem 05/26/2022 Medical Group,[facility] Transient Transient Problem Resolve 2022-05-26 Memoria ischemic ischemic d 03:23:33 l attack attack Obie (disorder) (disorder) Resolved Problem 05/26/2022 [facility] Group,[facility] Neuro,[facility] Chronic Chronic Problem Active 2022-07-26 Me moria atrial atrial 00:02:46 l fibrillati fibrillati He rmann on on (disorder) (disorder) Active Problem 07/26/2022 Medical Group,[facility] Chronic Chronic Problem Active 2022-07-26 Me moria 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:02:46 l heart heart [place] failure failure (disorder) (disorder) Active Problem 07/26/2022 Medical Group,[facility] Congestive Congestiv Problem Active 2022-07-26 Memoria heart e heart 00:02:46 l failure failure [place] (disorder) (disorder) Active Problem 07/26/2022 controlled with medication [facility] Dyslipidem Dyslipide Problem Active 2022-07-26 Memoria ia el 00:02:46 l (disorder) (disorder) He rmann Active Problem 07/26/2022 [facility] Gastroeso Problem Active 2022-07-26 Memoria hageal phageal 00:02:46 l reflux reflux Obie disease disease (disorder) (disorder) Active Problem 07/26/2022 controlled with medication [facility] 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-26 Memoria - Deep of - Deep 00:02:46 l Vein Vein [place] Thrombosis Thrombosis (context-d (context-d ependent ependent category) category) Active Problem 07/26/2022 Medical Group,[facility] 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 ) (situation ) Active Problem 07/26/2022 Medical Group,[facility] Neuro,[facility] Hyperlipid Hyperlipi Problem Active 2022-07-26 Memoria emia demia 00:02:46 l (disorder) (disorder) He rmann Active Problem 07/26/2022 controlled with medication [facility] Hypertensi Hypertens Problem Active 2022-07-26 Memoria ve kayley 00:02:46 l disorder, disorder, Herm juan m systemic systemic arterial arterial (disorder) (disorder) Active Problem 07/26/2022 controlled with medication Medical Group,[facility] Hypothyroi Hypothyro Problem Active 2022-07-26 Memoria dism idism 00:02:46 l (disorder) (disorder) He rmann Active Problem 07/26/2022 Medical Group,[facility] Long-term Long-term Problem Active 2022-07-26 Memoria current current 00:02:46 l use of use of [place] anticoagul anticoagul ant ant (situation (situation ) ) Active Problem 07/26/2022 Medical Group,[facility] Myoclonus Myoclonus Problem Active 2022-07-26 Memoria (finding) (finding) 00:02:46 l Active [place] Problem 07/26/2022 [facility] Peripheral Periphera Problem Active 2022-07-26 Memoria nerve l nerve 00:02:46 l disease disease Obie (disorder) (disorder) Active Problem 07/26/2022 [facility] Peripheral Problem Active 2022-07-26 M emoria vascular Peripheral 00:02:46 l disease vascular [place] (disorder) disease (disorder) Active Problem 07/26/2022 Medical Group,[facility] Benign Benign Problem Active 2021-11-07 Mem oria essential essential 01:53:16 l hypertensi hypertensi He rmann on on (disorder) (disorder) Active Problem 11/07/2021 Medical [facility] Chronic Chronic Problem Active 2021-11-07 M emoria congestive congestive 01:53:16 l heart heart [place] failure failure (disorder) (disorder) Active [facility] Constipati Constipat Problem Active 2021-11-07 Memoria on ion 01:53:16 l (disorder) (disorder) He rmann Active Problem 11/07/2021 Medical Group 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-07 Memoria bladder e bladder 01:53:16 l Active [place] Problem 11/07/2021 [facility] Group Retention Problem Active 2021-11-07 Me moria of urine Retention 01:53:16 l (disorder) of urine Herm juan m (disorder) Active Problem 11/07/2021 [facility] UNSPECIFIE UNSPECIFI Diagnosis Active 2021-09-29 Memoria D ATRIAL ED ATRIAL 11:55:00 l FIBRILLATI FIBRILLATI He rmann ON ON Active [facility] DISORDER DISORDER Diagnosis Active 2021-11-07 Memoria OF OF 21:47:00 l ARTERIES ARTERIES Luis n AND AND ARTERIOLES ARTERIOLES , UNS , UNS Active [facility] DISORDER DISORDER Diagnosis Active 2021-10-21 Memoria OF OF 11:49:00 l ARTERIES ARTERIES Luis n AND AND ARTERIOLES ARTERIOLES , , UNSPECIFIE UNSPECIFIE D D Active [facility] EMBOLISM EMBOLISM Diagnosis Active 2021-12-04 Memoria AND AND 21:46:00 l THROMBOSIS THROMBOSIS He rmann OF OF ARTERIES ARTERIES OF T OF T Active [facility] EMBOLISM EMBOLISM Diagnosis Active 2021-11-11 Memoria AND AND 13:16:00 l THROMBOSIS THROMBOSIS He rmann OF OF ARTERIES ARTERIES OF THE OF THE LOWER LOWER EXTRE EXTRE Active [facility] History of Past Illness Condition Condition Condition Status Onset Resolution Last Treating Co mments Source Name Details Category Date Date Treatment Clinician Date Acute Acute Problem 2021-10-25 2021-10-25 M emoria posthemorr posthemorr 10-14 00:00:43 00:00:43 l hagic hagic 18:05: [place] anemia anemia 13 10/14/2021 10/25/2021 [facility] Allergies, Adverse Reactions, Alerts Allergy Allergy Status Severity Reaction(s) Onset Inactive Treating Comm ents Source Name Type Date Date Clinician Rober Amaro Active GI 2021-09 " It Methodi ty to Intolerance 0-[address] adverse 00:00: [facility]atal [facility] reaction 00 hernia" l s to drug No Known DA Active U [facility] Allergie 3-07 Clear s 00:00: Sampson 00 [facility] codeine DA Active MD [facility] HIATAL 3-07 Clear HERNIA 00:00: Sampson 00 [facility] codeine codeine Active Memoria sulfate sulfate l [place] Social History Social Habit Start Date Stop Date Quantity Comments Source Gender identity [facility] Sexual orientation Method [facility] Social History 2021-10-03 2021-10-03 [facility] 16:23:14 16:23:14 Tobacco use and 2021-06-28 2021-06-28 Smokeless [facility] exposure 00:00:00 00:00:00 tobacco non-user Sex Assigned At [birth year] [facility] 00:00:00 00:00:00 Hospital Smoking Status Start Date Stop Date Source Tobacco smoking consumption [facility] unknown Tobacco smoking status 2022-05-23 18:21:06 2022-05-23 18:21:06 [facility] [place] Smokes tobacco daily 2021-06-28 00:00:00 [facility] th Medications Ordered Filled Start Stop Current Ordering Indication Dosage Frequency Signature Comments Components Source Medication Medication Date Date Medication? Clinician (SIG) Name Name Esmer Queen Yes 100 mg = 1 M emoria mg oral 05-23 cap, PO, l capsule 18:59: BID, # 60 Maribel nn 00 cap, 2 Refill(s), Pharmacy: [facility] STORE #[id number], 167.64, cm, 05/23/22 13:34:00 CDT, Height, 74.545, kg, 05/23/22 13:34:00 CDT, Weight Esmer Queen Yes 100 mg = 1 M emoria mg oral 9- cap, PO, l capsule 18:59: BID, # 60 Maribel nn 00 cap, 2 Refill(s), Pharmacy: [facility] STORE #[id number], 167.64, cm, 05/23/22 13:34:00 CDT, Height, 74.545, kg, 05/23/22 13:34:00 CDT, Weight Lyrica 100 2022-0 Yes 100 mg = 1 M emoria mg oral 9-09 cap, PO, l capsule 18:59: BID, # 60 Maribel nn 00 cap, 2 Refill(s), [id number], 167.64, cm, 05/23/22 13:34:00 CDT, Height, 74.545, kg, 05/23/22 13:34:00 CDT, Weight Lyrica 75 2022-0 No 75 mg = 1 Mem oria mg oral 8-02 cap, PO, l capsule 16:56: BID, # 60 Maribel nn 00 cap, 1 Refill(s), [id number], 165.1, cm, 04/10/22 8:31:00 CDT, Height, 73.239, kg, 04/10/22 8:31:00 CDT, Weight Lyrica 75 2022-0 No 75 mg = 1 Mem oria mg oral 8-02 cap, PO, l capsule 16:56: BID, # 60 Maribel nn 00 cap, 1 Refill(s), [facility][id number], 165.1, cm, 04/10/22 8:31:00 CDT, Height, 73.239, kg, 04/10/22 8:31:00 CDT, Weight Lyrica 75 2022-0 No 75 mg = 1 Mem oria mg oral 8-02 cap, PO, l capsule 16:56: BID, # 60 Maribel nn 00 cap, 1 Refill(s), [id number], 165.1, cm, 04/10/22 8:31:00 CDT, Height, 73.239, kg, 04/10/22 8:31:00 CDT, Weight Lyrica 75 2022-0 No 75 mg = 1 Mem oria mg oral 7-29 cap, PO, l capsule 22:23: BID, X 30 Maribel nn 00 day, # 60 cap, 1 Refill(s), Pharmacy: [facility] #[id number], 165.1, cm, 04/10/22 8:31:00 CDT, Height, 73.239, kg, 04/10/22 8:31:00 CDT, Weight Lyrica 75 2022-0 No 75 mg = 1 Mem oria mg oral 7-29 cap, PO, l capsule 22:23: BID, X 30 Maribel nn 00 day, # 60 cap, 1 Refill(s), Pharmacy: [facility] #[id number], 165.1, cm, 04/10/22 8:31:00 CDT, Height, 73.239, kg, 04/10/22 8:31:00 CDT, Weight Lyrica 75 2022-0 No 75 mg = 1 Mem oria mg oral 7-29 cap, PO, l capsule 22:23: BID, X 30 Maribel nn 00 day, # 60 cap, 1 Refill(s), Pharmacy: [facility] #[id number], 165.1, cm, 04/10/22 8:31:00 CDT, Height, 73.239, kg, 04/10/22 8:31:00 CDT, Weight gabapentin 2022-0 No 200 mg = 2 M emoria 100 mg oral 7-28 cap, PO, l capsule 14:15: BID, # 120 Herm juan m 00 cap, 3 Refill(s), Pharmacy: [facility] #[id number], 165.1, cm, 04/10/22 8:31:00 CDT, Height, 73.239, kg, 04/10/22 8:31:00 CDT, Weight gabapentin 2022-0 No 200 mg = 2 M emoria 100 mg oral 7-28 cap, PO, l capsule 14:15: BID, # 120 Herm juan m 00 cap, 3 Refill(s), [id number], 165.1, cm, 04/10/22 8:31:00 CDT, Height, 73.239, kg, 04/10/22 8:31:00 CDT, Weight gabapentin 2022-0 No 200 mg = 2 M emoria 100 mg oral 7-28 cap, PO, l capsule 14:15: BID, # 120 Herm juan m 00 cap, 3 Refill(s), Pharmacy: [facility] #[id number], 165.1, cm, 04/10/22 8:31:00 CDT, Height, 73.239, kg, 04/10/22 8:31:00 CDT, Weight lisinopril Yes TAKE 1 Memor ia 20 mg oral 6-27 TABLET BY l tablet 16:31: MOUTH Obie 00 TWICE DAILY amLODIPine Yes TAKE 1 Memor ia 10 mg oral 6-27 TABLET BY l tablet 16:31: MOUTH [place] 00 DAILY IN THE MORNING Brilinta Yes [...] 6-27 CAPSULE BY l capsule 16:31: MOUTH [place] 00 TWICE DAILY lisinopril Yes TAKE 1 Memor ia 20 mg oral 6-27 TABLET BY l tablet 16:31: MOUTH [place] 00 TWICE DAILY amLODIPine Yes TAKE 1 Memor ia 10 mg oral 6-27 TABLET BY l tablet 16:31: MOUTH Obie 00 DAILY IN THE MORNING Brilin Yes TAKE ONE Memor ia (ticagrelor 6-27 [...] capsule 16:31: MOUTH [place] 00 TWICE DAILY lisinopril Yes TAKE 1 Memor ia 20 mg oral 6-27 TABLET BY l tablet 16:31: MOUTH [place] 00 TWICE DAILY amLODIPine Yes TAKE 1 Memor ia 10 mg oral 6-27 TABLET BY l tablet 16:31: MOUTH [place] 00 DAILY IN THE MORNING Brilinta Yes [...] MOUTH Obie 00 TWICE DAILY acetaminoph Yes [id number] 1{tbl} Take 1 [facility] en-codeine 5-02 tablet by [facility]al [facility] (TYLENOL/CO 00:00: mouth DEINE #3) 00 every 4 300-30 MG (four) tablet hours if needed for severe pain. naloxone 2022- No [id number] .4mg Administer [facility] (Narcan) 2 11-18-08 0.4 mL Health MG/2ML 00:00: 05:59 (0.4 mg injection 00 :00 total) into affected nostril(s) if needed for opioid reversal. May repeat every 2-3 minutes as needed until medical assistance available. naloxone 2022- No [id number] .4mg Administer [place] (Narcan) 2 11-18-08 0.4 mL Health MG/2ML 00:00: 05:59 (0.4 mg injection 00 :00 total) into affected nostril(s) if needed for opioid reversal. May repeat every 2-3 minutes as needed until medical assistance available. naloxone 2022- No [id number] .4mg Administer [place] (Narcan) 2 11-18-08 0.4 mL Health MG/2ML 00:00: 05:59 (0.4 mg injection 00 :00 total) into affected nostril(s) if needed for opioid reversal. May repeat every 2-3 minutes as needed until medical assistance available. naloxone 2022- No [id number] .4mg Administer [place] (Narcan) 2 11-18-08 0.4 mL Health MG/2ML 00:00: 05:59 (0.4 mg injection 00 :00 total) into affected nostril(s) if needed for opioid reversal. May repeat every 2-3 minutes as needed until medical assistance available. traMADol 2021- No [id number] 50mg Take 1 UT (Ultram) 50 3-07 03-13 tablet (50 H ealth MG tablet 00:00: 05:59 mg total) 00 :00 by mouth every 8 (eight) hours if needed for severe pain for up to 5 days. Eliquis No Notes: Memoria 2-28 Same as: l 15:00: Eliquis Obie 00 Eliquis No Notes: Memoria 2-28 Same as: l 15:00: Eliquis Obie 00 Eliquis No Notes: Memoria 2-28 Same as: l 15:00: Eliquis [place] 00 Coreg 25 mg 2021- Yes 25 mg = 1 M emoria oral tablet 2-28 tab, PO, l 13:05: BID, # 60 Obie 00 tab, 0 Refill(s), Pharmacy: [facility] STORE #[id number], 170.18, cm, 11/08/21 4:09:00 MARKET REPORTER, Height, 75.318, kg, 11/08/21 0:40:00 MARKET REPORTER, Weight carvedilol Yes 25 mg = 1 Me moria 25 MG Oral 2-28 tab, PO, l Tablet 13:05: BID, # 60 Luis n [Coreg] 00 tab, 0 Refill(s), Pharmacy: [facility] STORE #[id number], 170.18, cm, 11/08/21 4:09:00 MARKET REPORTER, Height, 75.318, kg, 11/08/21 0:40:00 MARKET REPORTER, Weight Coreg 25 mg 2021-0 Yes 25 mg = 1 M emoria oral tablet 2-28 tab, PO, l 13:05: BID, # 60 [place] 00 tab, 0 Refill(s), Pharmacy: [facility] ST[facility] #[id number], 170.18, cm, 11/08/21 4:09:00 MARKET REPORTER, Height, 75.318, kg, 11/08/21 0:40:00 MARKET REPORTER, Weight carvedilol 2021-0 Yes 25 mg = 1 Me moria 25 MG Oral 2-28 tab, PO, l Tablet 13:05: BID, # 60 Luis n [Coreg] 00 tab, 0 Refill(s), Pharmacy: [facility] #[id number], 170.18, cm, 11/08/21 4:09:00 MARKET REPORTER, Height, 75.318, kg, 11/08/21 0:40:00 MARKET REPORTER, Weight Coreg 25 mg 2021-0 Yes 25 mg = 1 M emoria oral tablet 2-28 tab, PO, l 13:05: BID, # 60 Obie 00 tab, 0 Refill(s), Pharmacy: [facility] #[id number], 170.18, cm, 11/08/21 4:09:00 MARKET REPORTER, Height, 75.318, kg, 11/08/21 0:40:00 MARKET REPORTER, Weight carvedilol 2021-0 Yes 25 mg = 1 Me moria 25 MG Oral 2-28 tab, PO, l Tablet 13:05: BID, # 60 Luis n [Coreg] 00 tab, 0 Refill(s), Pharmacy: [facility] #[id number], 170.18, cm, 11/08/21 4:09:00 MARKET REPORTER, Height, 75.318, kg, 11/08/21 0:40:00 MARKET REPORTER, Weight atorvastati 2021-0 Yes 40 mg = 1 M emoria n 40 mg 2-28 tab, PO, l oral tablet 13:04: Bedtime, # Obie 00 30 tab, 0 Refill(s), Pharmacy: [facility] #[id number], 170.18, cm, 11/08/21 4:09:00 MARKET REPORTER, Height, 75.318, kg, 11/08/21 0:40:00 MARKET REPORTER, Weight doxycycline 2021-0 Yes 100 mg = 2 Memoria hyclate 50 2-28 cap, PO, l MG Oral 13:04: [id number], X Herm juan m Capsule 00 7 day, # 28 cap, 0 Refill(s), Pharmacy: [facility] #[id number], 170.18, cm, 11/08/21 4:09:00 MARKET REPORTER, Height, 75.318, kg, 11/08/21 0:40:00 MARKET REPORTER, Weight atorvastati 2021-0 Yes 40 mg = 1 M emoria n 40 mg 2-28 tab, PO, l oral tablet 13:04: Bedtime, # [place] 00 30 tab, 0 Refill(s), Pharmacy: [facility] #[id number], 170.18, cm, 11/08/21 4:09:00 MARKET REPORTER, Height, 75.318, kg, 11/08/21 0:40:00 MARKET REPORTER, Weight doxycycline Yes 100 mg = 2 Memoria hyclate 50 2-28 cap, PO, l MG Oral 13:04: [id number], X Herm juan m Capsule 00 7 day, # 28 cap, 0 Refill(s), Pharmacy: [facility] #[id number], 170.18, cm, 11/08/21 4:09:00 MARKET REPORTER, Height, 75.318, kg, 11/08/21 0:40:00 MARKET REPORTER, Weight atorvastati Yes 40 mg = 1 M emoria n 40 mg 2-28 tab, PO, l oral tablet 13:04: Bedtime, # Obie 00 30 tab, 0 Refill(s), Pharmacy: [facility] #[id number], 170.18, cm, 11/08/21 4:09:00 MARKET REPORTER, Height, 75.318, kg, 11/08/21 0:40:00 MARKET REPORTER, Weight doxycycline Yes 100 mg = 2 Memoria hyclate 50 2-28 cap, PO, l MG Oral 13:04: [id number], X Herm juan m Capsule 00 7 day, # 28 cap, 0 Refill(s), Pharmacy: [facility] #[id number], 170.18, cm, 11/08/21 4:09:00 MARKET REPORTER, Height, 75.318, kg, 11/08/21 0:40:00 MARKET REPORTER, Weight Magnesium No Notes: Memori a Sulfate 2-28 WASTE: F/P l 13:01: - Sink; E [place] [facility] Magnesium No Notes: Memori a Sulfate 2-28 WASTE: F/P l 13:01: - Sink; E [place] [facility] Magnesium No Notes: Memori a Sulfate 2-28 WASTE: F/P l 13:01: - Sink; [place] [facility] Potassium No Notes: Memori a Chloride 2-27 (Same as: l 18:53: K-Dur 20) [place] 00 "Do Not Crush" Give with food and full glass of water For patients unable to swallow tablet, dissolve in one half glass of water. Allow about 2 minutes for the tablets to disintegra te. Stir before giving to prepare slurry and administer . Please exclude Patient s with feeding tube less than 14 [place]amese (Dobhoff, J-tube etc) and pediatric and patients. Potassium No Notes: Memori a Chloride 2-27 (Same as: l 18:53: K-Dur 20) Obie 00 "Do Not Crush" Give with food and full glass of water For patients unable to swallow tablet, dissolve in one half glass of water. Allow about 2 minutes for the tablets to disintegra te. Stir before giving to prepare slurry and administer . Please exclude Patient s with feeding tube less than 14 [place] (Dobhoff, J-tube etc) and pediatric and patients. Potassium No Notes: Memori a Chloride 2-27 (Same as: l 18:53: K-Dur 20) [place] 00 "Do Not Crush" Give with food and full glass of water For patients unable to swallow tablet, dissolve in one half glass of water. Allow about 2 minutes for the tablets to disintegra te. Stir before giving to prepare slurry and administer . Please exclude Patient s with feeding tube less than 14 [place] (Dobhoff, J-tube etc) and pediatric and patients. Protonix No Notes: Memoria 2-27 Tablet l 13:30: should not Obie 00 be chewed or crushed. (Same as: Protonix) Protonix No Notes: Memoria 2-27 Tablet l 13:30: should not Obie 00 be chewed or crushed. (Same as: Protonix) Protonix No Notes: Memoria 2-27 Tablet l 13:30: should not Obie 00 be chewed or crushed. (Same as: Protonix) tramadol No Notes: Not Mem oria hydrochlori 2-27 to exceed l de 50 MG 06:14: 400mg/day. Her song Oral Tablet 00 (Same As: Ultram) tramadol No Notes: Not Mem oria hydrochlori 11-10 to exceed l de 50 MG 06:14: 400mg/day. Her song Oral Tablet 00 (Same As: Ultram) tramadol No Notes: Not Mem oria hydrochlori 11-10 to exceed l de 50 MG 06:14: 400mg/day. Her song Oral Tablet 00 (Same As: Ultram) Tramadol No 25 mg, Memoria 11-10 Route: PO, l 06:02: Drug form: Obie 00 TAB, Q6H, Dosing Weight 75.318, kg, PRN Pain Score 4-6, Start date: 11/10/21 0:02:00 MARKET REPORTER, Duration: 30 day, Stop date: 12/10/21 0:01:00 CDT Tramadol No 25 mg, Memoria 11-10 Route: PO, l 06:02: Drug form: Obie 00 TAB, Q6H, Dosing Weight 75.318, kg, PRN Pain Score 4-6, Start date: 11/10/21 0:02:00 MARKET REPORTER, Duration: 30 day, Stop date: 12/10/21 0:01:00 CDT Tramadol No 25 mg, Memoria 11-10 Route: PO, l 06:02: Drug form: Obie 00 TAB, Q6H, Dosing Weight 75.318, kg, PRN Pain Score 4-6, Start date: 11/10/21 0:02:00 MARKET REPORTER, Duration: 30 day, Stop date: 12/10/21 0:01:00 CDT Acetaminoph No Notes: Eric oracio en 325 MG / 11-10 (Same as: l Hydrocodone 06:01: Challenge Maribel nn Bitartrate 00 325/5) Do 5 MG Oral not exceed Tablet 4gm/day of [Challenge acetaminop 5/325] hen. Acetaminoph No Notes: Eric oracio en 325 MG / 11-10 (Same as: l Hydrocodone 06:01: Challenge Maribel nn Bitartrate 00 325/5) Do 5 MG Oral not exceed Tablet 4gm/day of [Challenge acetaminop 5/325] hen. Acetaminoph No Notes: Eric oracio en 325 MG / 2-27 (Same as: l Hydrocodone 06:01: Challenge Maribel nn Bitartrate 00 325/5) Do 5 MG Oral not exceed Tablet 4gm/day of [Challenge acetaminop 5/325] hen. Rocephin + 2021-0 No Notes: Memor ia Sodium 2-26 (Same As: l Chloride 17:00: Rocephin). Her song 0.9% IV 100 00 Use with mL 100 mL NS and infuse over 30 min MEDICATION WASTE Product Size: 1000 mg Product Wasted: ___ mg doxycycline 2021-0 No 100 mg, 2 M emoria hyclate 2-26 cap, l 17:00: Route: PO, [place] 00 Drug form: CAP, [id number], Dosing Weight 75.318, kg, Start date: 11/09/21 11:00:00 MARKET REPORTER, Duration: 5 day, Stop date: 11/13/21 23:00:00 MARKET REPORTER, ABX Indication : Skin/Soft Tissue Infection, 0 Rocephin + 2021-0 No Notes: Memor ia Sodium 2-26 (Same As: l Chloride 17:00: Rocephin). Her song 0.9% IV 100 00 Use with mL 100 mL NS and infuse over 30 min MEDICATION WASTE Product Size: 1000 mg Product Wasted: ___ mg doxycycline 2021-0 No 100 mg, 2 M emoria hyclate 2-26 cap, l 17:00: Route: PO, [place] 00 Drug form: CAP, [id number], Dosing Weight 75.318, kg, Start date: 11/09/21 11:00:00 MARKET REPORTER, Duration: 5 day, Stop date: 11/13/21 23:00:00 MARKET REPORTER, ABX Indication : Skin/Soft Tissue Infection, 0 Rocephin + 202-0 No Notes: Memor ia Sodium 2-26 (Same As: l Chloride 17:00: Rocephin). Her song 0.9% IV 100 00 Use with mL 100 mL NS and infuse over 30 min MEDICATION WASTE Product Size: 1000 mg Product Wasted: ___ mg doxycycline 2021-0 No 100 mg, 2 M emoria hyclate 2-26 cap, l 17:00: Route: PO, [place] 00 Drug form: CAP, [id number], Dosing Weight 75.318, kg, Start date: 11/09/21 11:00:00 MARKET REPORTER, Duration: 5 day, Stop date: 11/13/21 23:00:00 MARKET REPORTER, ABX Indication : Skin/Soft Tissue Infection, 0 Cymbalta No Notes: Memoria 2-26 (Same as: l 15:00: Cymbalta) [place] 00 (Do Not Crush) Dulera 200 No 2 puff, Eric oracio mcg-5 11-09 Route: l mcg/inh 15:00: INHALER, Luis n inhalation 00 Drug Form: aerosol AERO, Dosing Weight 75.318, kg, Q12H, Start date: 11/09/21 9:00:00 MARKET REPORTER, Duration: 30 day, Stop date: 12/08/21 21:00:00 CDT RN-Pls No RN-Pls Memor ia bring pt's 11-09 bring pt's l DULERA inh 15:00: DULERA inh H ermann to pharmacy 00 to for pharmacy label for label, Attn:RN, Drug form: MISC, Route: MISC, QSHIFT, 11/09/21 9:00:00 MARKET REPORTER, Duration: 30 day, Stop date: 12/09/21 8:00:00 CDT, 0 Cymbalta No Notes: Memoria - (Same as: l 15:00: Cymbalta) [place] (Do Not Crush) Dulera 200 No 2 puff, Eric oracio mcg-5 11-09 Route: l mcg/inh 15:00: INHALER, Luis n inhalation 00 Drug Form: aerosol AERO, Dosing Weight 75.318, kg, Q12H, Start date: 11/09/21 9:00:00 MARKET REPORTER, Duration: 30 day, Stop date: 12/08/21 21:00:00 CDT RN-Pls No RN-Pls Memor ia bring pt's 11-09 bring pt's l DULERA inh 15:00: DULERA inh H ermann to pharmacy 00 to for pharmacy label for label, Attn:SUHAIL, Drug form: MISC, Route: MISC, QSHIFT, 11/09/21 9:00:00 MARKET REPORTER, Duration: 30 day, Stop date: 12/09/21 8:00:00 CDT, 0 Cymbalta No Notes: Memoria 2- (Same as: l 15:00: Cymbalta) [place] 00 (Do Not Crush) Dulera 200 No 2 puff, Eric oracio mcg-5 11-09 Route: l mcg/inh 15:00: INHALER, Luis n inhalation 00 Drug Form: aerosol AERO, Dosing Weight 75.318, kg, Q12H, Start date: 11/09/21 9:00:00 MARKET REPORTER, Duration: 30 day, Stop date: 12/08/21 21:00:00 CDT RN-Pls No RN-Pls Memor ia bring pt's 11-09 bring pt's l DULERA inh 15:00: DULERA inh H ermann to pharmacy 00 to for pharmacy label for label, Attn:SUHAIL, Drug form: MISC, Route: MISC, QSHIFT, 11/09/21 9:00:00 MARKET REPORTER, Duration: 30 day, Stop date: 12/09/21 8:00:00 CDT, 0 Diltiazem No Notes: Memori a 2-26 (Same as: l 14:00: Cardizem) [place] 00 Before meals Diltiazem No Notes: Memori a 2-26 (Same as: l 14:00: Cardizem) [place] 00 Before meals Diltiazem No Notes: Memori a 2-26 (Same as: l 14:00: Cardizem) [place] 00 Before meals Guaifenesin No Notes: Eric oracio 20 MG/ML 11-09 (Same as: l Oral 13:33: Robitussin [place] Solution 00 ) Hydralazine No Notes: Eric oracio - (Same as: l 13:33: Apresoline [place] 00 ) Melatonin 3 No 3 mg, 1 Mem oria MG Extended 2- tab, l Release 13:33: Route: PO, Herm juan m Tablet 00 Dosing Weight 75.318, kg, Bedtime, PRN Insomnia, Start date: 11/09/21 7:33:00 MARKET REPORTER, Duration: 30 day, Stop date: 12/09/21 7:32:00 CDT Miralax No Notes: Memoria 2- Dissolve l 13:33: in 8 oz of [place] 00 water or juice. (Same as: Miralax) Tums No Notes: Memoria - (Same As: l 13:33: Tums) [place] Calcium Carbonate 500 mg = 200 mg elemental calcium Dose = mg calcium carbonate ( mg elemental calcium) Zofran No Notes: Memoria - (Same as: l 13:33: Zofran) [place] 00 MEDICATION WASTE Product Size: 4 mg Product Wasted: ___ mg Zyrtec No Notes: Memoria - (Same As: l 13:33: Zyrtec) [place] 00 Ventolin No Notes: Memoria HFA 90 11-09 Albuterol l mcg/inh 13:33: 90 [place] inhalation 00 microgram/ aerosol inh 8gm with HFA WASTE: adapter Aerosol - Return to Pharmacy Same as: Ventolin, Proventil phenol No Notes: Memoria 11-09 WASTE: F/P l 13:33: - Black; E [place] - Municipal Trash Bin Artificial No 1 drp, Memor ia Tears 11-09 Route: l 13:33: Each [place] 00 Affected Eye, QID, Drug form: SOLN, PRN Dry Eyes, Start date: 11/09/21 7:33:00 MARKET REPORTER, Duration: 30 day, Stop date: 12/09/21 7:32:00 CDT, 0 Dulcolax No Notes: Memoria Laxative 11-09 (Same As: l 13:33: Dulcolax, [place] 00 Correctol) (Do Not Crush) "Do Not Crush" Guaifenesin No Notes: Eric oracio 20 MG/ML - (Same as: l Oral 13:33: Robitussin [place] Solution ) Hydralazine No Notes: Eric oracio 2-26 (Same as: l 13:33: Apresoline [place] ) Melatonin 3 No 3 mg, 1 Mem oria MG Extended 2-26 tab, l Release 13:33: Route: PO, Herm juan m Tablet 00 Dosing Weight 75.318, kg, Bedtime, PRN Insomnia, Start date: 11/09/21 7:33:00 MARKET REPORTER, Duration: 30 day, Stop date: 12/09/21 7:32:00 CDT Miralax No Notes: Memoria 2-26 Dissolve l 13:33: in 8 oz of [place] water or juice. (Same as: Miralax) Tums No Notes: Memoria 2- (Same As: l 13:33: Tums) [place] Calcium Carbonate 500 mg = 200 mg elemental calcium Dose = mg calcium carbonate ( mg elemental calcium) Zofran No Notes: Memoria 2- (Same as: l 13:33: Zofran) [place] MEDICATION WASTE Product Size: 4 mg Product Wasted: ___ mg Zyrtec No Notes: Memoria 2-26 (Same As: l 13:33: Zyrtec) [place] 00 Ventolin No Notes: Memoria HFA 90 11-09 Albuterol l mcg/inh 13:33: 90 [place] inhalation 00 microgram/ aerosol inh 8gm with HFA WASTE: adapter Aerosol - Return to Pharmacy Same as: Ventolin, Proventil phenol No Notes: Memoria 11-09 WASTE: F/P l 13:33: - Black; E [place] - Municipal Trash Bin Artificial No 1 drp, Memor ia Tears 11-09 Route: l 13:33: Each [place] 00 Affected Eye, QID, Drug form: SOLN, PRN Dry Eyes, Start date: 11/09/21 7:33:00 MARKET REPORTER, Duration: 30 day, Stop date: 12/09/21 7:32:00 CDT, 0 Dulcolax No Notes: Memoria Laxative 2- (Same As: l 13:33: Dulcolax, [place] 00 Correctol) (Do Not Crush) "Do Not Crush" Guaifenesin No Notes: Eric oracio 20 MG/ML - (Same as: l Oral 13:33: Robitussin [place] Solution 00 ) Hydralazine No Notes: Eric oracio 2- (Same as: l 13:33: Apresoline [place] ) Melatonin 3 No 3 mg, 1 Mem oria MG Extended 2- tab, l Release 13:33: Route: PO, Herm juan m Tablet 00 Dosing Weight 75.318, kg, Bedtime, PRN Insomnia, Start date: 11/09/21 7:33:00 MARKET REPORTER, Duration: 30 day, Stop date: 12/09/21 7:32:00 CDT Miralax No Notes: Memoria 2-26 Dissolve l 13:33: in 8 oz of [place] 00 water or juice. (Same as: Miralax) Tums No Notes: Memoria 2- (Same As: l 13:33: Tums) [place] Calcium Carbonate 500 mg = 200 mg elemental calcium Dose = mg calcium carbonate ( mg elemental calcium) Zofran No Notes: Memoria 2- (Same as: l 13:33: Zofran) [place] 00 MEDICATION WASTE Product Size: 4 mg Product Wasted: ___ mg Zyrtec No Notes: Memoria 2-26 (Same As: l 13:33: Zyrtec) [place] 00 Ventolin No Notes: Memoria HFA 90 - Albuterol l mcg/inh 13:33: 90 [place] inhalation 00 microgram/ aerosol inh 8gm with HFA WASTE: adapter Aerosol - Return to Pharmacy Same as: Ventolin, Proventil phenol No Notes: Memoria - WASTE: F/P l 13:33: - Black; E [place] 00 - Municipal Trash Bin Artificial 2022-0 No 1 drp, Memor ia Tears 2- Route: l 13:33: Each Affected Eye, QID, Drug form: SOLN, PRN Dry Eyes, Start date: 11/09/21 7:33:00 MARKET REPORTER, Duration: 30 day, Stop date: 12/09/21 7:32:00 CDT, 0 Dulcolax No Notes: Memoria Laxative 2- (Same As: l 13:33: Dulcolax, Correctol) (Do Not Crush) "Do Not Crush" Trazodone No Notes: Memori a Hydrochlori 2-26 (Same As: l de 100 MG 03:00: Desyrel) Herm juan m Oral Tablet atorvastati No Notes: Eric oracio n 2-26 (Same as: l 03:00: Lipitor) Trazodone No Notes: Memori a Hydrochlori 2-26 (Same As: l de 100 MG 03:00: Desyrel) Herm juan m Oral Tablet 00 atorvastati No Notes: Eric oracio n 2-26 (Same as: l 03:00: Lipitor) Trazodone No Notes: Memori a Hydrochlori 2-26 (Same As: l de 100 MG 03:00: Desyrel) Herm juan m Oral Tablet 00 atorvastati No Notes: Eric oracio n 2-26 (Same as: l 03:00: Lipitor) carvedilol No Notes: Memor ia 2-25 Give with l 16:05: food. (Same As: Coreg) carvedilol No Notes: Memor ia 2-25 Give with l 16:05: food. (Same As: Coreg) carvedilol No Notes: Memor ia 2-25 Give with l 16:05: food. (Same As: Coreg) Hydralazine No Notes: Eric oracio 2-25 (Same as: l 15:34: Apresoline ) Push over 5 minutes Hydralazine No Notes: Eric oracio 2-25 (Same as: l 15:34: Apresoline ) Push over 5 minutes Hydralazine No Notes: Eric oracio 2-25 (Same as: l 15:34: Apresoline ) Push over 5 minutes esomeprazol Yes 40 mg = 1 M emoria e 40 mg 2-25 cap, PO, l oral 15:33: Daily [place] delayed 00 release capsule trazodone Yes 100 mg = 1 Me moria 100 mg oral 2-25 tab, PO, l tablet 15:33: Bedtime [place] 00 Dulera 200 Yes 2 puff, Eric oracio mcg-5 2-25 INHALER, l mcg/inh 15:33: Q12H [place] inhalation aerosol Esomeprazol Yes 40 mg = 1 M emoria e 40 MG 2-25 cap, PO, l Enteric 15:33: Daily [place] Coated 00 Capsule Trazodone Yes 100 mg = 1 Me moria Hydrochlori 2-25 tab, PO, l de 100 MG 15:33: Bedtime Amribel nn Oral Tablet 00 esomeprazol Yes 40 mg = 1 M emoria e 40 mg 2-25 cap, PO, l oral 15:33: Daily [place] delayed 00 release capsule trazodone Yes 100 mg = 1 Me moria 100 mg oral 2-25 tab, PO, l tablet 15:33: Bedtime [place] 200 Yes 2 puff, Eric oracio mcg-5 2-25 INHALER, l mcg/inh 15:33: Q12H [place] inhalation 00 aerosol Esomeprazol Yes 40 mg = 1 M emoria e 40 MG 2-25 cap, PO, l Enteric 15:33: Daily [place] Coated 00 Capsule Trazodone Yes 100 mg = 1 Me moria Hydrochlori 2-25 tab, PO, l de 100 MG 15:33: Bedtime Maribel nn Oral Tablet 00 esomeprazol Yes 40 mg = 1 M emoria e 40 mg 2-25 cap, PO, l oral 15:33: Daily [place] delayed 00 release capsule trazodone Yes 100 mg = 1 Me moria 100 mg oral 2-25 tab, PO, l tablet 15:33: Bedtime [place] 200 Yes 2 puff, Eric oracio mcg-5 2-25 INHALER, l mcg/inh 15:33: Q12H [place] inhalation aerosol Esomeprazol Yes 40 mg = 1 M emoria e 40 MG 2-25 cap, PO, l Enteric 15:33: Daily [place] Coated Capsule Trazodone Yes 100 mg = 1 Me moria Hydrochlori 2-25 tab, PO, l de 100 MG 15:33: Bedtime [place]ibel nn Oral Tablet Alprazolam Yes 0.25 mg = Me moria 0.25 MG 2-25 1 tab, PO, l Oral Tablet 15:32: QPM Luis n [Xanax] Xanax 0.25 Yes 0.25 mg = Me moria mg oral 2-25 1 tab, PO, l tablet 15:32: QPM [place] 00 diltiazem No 60 mg = 1 Mem oria 60 mg oral 2-25 tab, PO, l tablet 15:32: Q8H Alprazolam Yes 0.25 mg = Me moria 0.25 MG 2-25 1 tab, PO, l Oral Tablet 15:32: QPM Luis n [Xanax] Xanax 0.25 Yes 0.25 mg = Me moria mg oral 2-25 1 tab, PO, l tablet 15:32: QPM [place] 00 diltiazem No 60 mg = 1 Mem oria 60 mg oral 2-25 tab, PO, l tablet 15:32: Q8H Alprazolam Yes 0.25 mg = Me moria 0.25 MG 2-25 1 tab, PO, l Oral Tablet 15:32: QPM Luis n [Xanax] Xanax 0.25 Yes 0.25 mg = Me moria mg oral 2-25 1 tab, PO, l tablet 15:32: QPM [place] 00 diltiazem No 60 mg = 1 Mem oria 60 mg oral 2-25 tab, PO, l tablet 15:32: Q8H [place] levothyroxi Yes 100 Memori a ne 100 mcg 2-25 microgram l (0.1 mg) 15:31: = 1 tab, Maribel nn oral tablet 00 PO, Daily furosemide Yes 40 mg = 1 Me moria 40 mg oral 2-25 tab, PO, l tablet 15:31: Daily [place] levothyroxi Yes 100 Memori a ne 100 mcg 2-25 microgram l (0.1 mg) 15:31: = 1 tab, [place]ibel nn oral tablet 00 PO, Daily furosemide Yes 40 mg = 1 Me moria 40 mg oral 2-25 tab, PO, l tablet 15:31: Daily [place] 00 Potassium Yes 10 mEq = 1 Me moria Chloride 2-25 tab, PO, l (Eqv-K-Tab) 15:31: Daily [place] nn 10 mEq oral 00 tablet, extended release Furosemide Yes 40 mg = 1 Me moria 40 MG Oral 2-25 tab, PO, l Tablet 15:31: Daily [place] carvedilol No 12.5 mg = Me moria 12.5 mg 2-25 1 tab, PO, l oral tablet 15:31: Q12H Luis n Digoxin No 125 Memoria 0.125 MG 2-25 microgram l Oral Tablet 15:31: = 1 tab, [place] 00 PO, Daily, 0 Refill(s) Potassium Yes 10 mEq = 1 Me moria Chloride 2-25 tab, PO, l (Eqv-K-Tab) 15:31: Daily [place] nn 10 mEq oral 00 tablet, extended release Furosemide Yes 40 mg = 1 Me moria 40 MG Oral 2-25 tab, PO, l Tablet 15:31: Daily [place] carvedilol No 12.5 mg = Me moria 12.5 mg 2-25 1 tab, PO, l oral tablet 15:31: Q12H Luis n 00 Digoxin No 125 Memoria 0.125 MG 2-25 microgram l Oral Tablet 15:31: = 1 tab, [place] 00 PO, Daily, 0 Refill(s) levothyroxi Yes 100 Memori a ne 100 mcg 2-25 microgram l (0.1 mg) 15:31: = 1 tab, Maribel nn oral tablet 00 PO, Daily furosemide Yes 40 mg = 1 Me moria 40 mg oral 2-25 tab, PO, l tablet 15:31: Daily [place] 00 Potassium Yes 10 mEq = 1 Me moria Chloride 2-25 tab, PO, l (Eqv-K-Tab) 15:31: Daily [place] nn 10 mEq oral 00 tablet, extended release Furosemide Yes 40 mg = 1 Me moria 40 MG Oral 2-25 tab, PO, l Tablet 15:31: Daily [place] 00 carvedilol No 12.5 mg = Me moria 12.5 mg 2-25 1 tab, PO, l oral tablet 15:31: Q12H Luis n 00 Digoxin No 125 Memoria 0.125 MG 2-25 microgram l Oral Tablet 15:31: = 1 tab, [place] 00 PO, Daily, 0 Refill(s) aspirin 81 Yes 81 mg = 1 Me moria mg tablet, 2-25 tab, PO, l enteric 15:30: Daily [place] coated 00 Cymbalta 60 Yes 60 mg = 1 M emoria mg oral 2-25 cap, PO, l delayed 15:30: Daily [place] release 00 capsule Eliquis 5 Yes 5 mg = 1 Eric oracio mg oral 2-25 tab, PO, l tablet 15:30: Q12H [place] 00 Aspirin 81 Yes 81 mg = 1 Me moria MG Enteric 2-25 tab, PO, l Coated 15:30: Daily [place] Tablet 00 duloxetine Yes 60 mg = 1 Me moria 60 MG 2-25 cap, PO, l Enteric 15:30: Daily [place] Coated 00 Capsule [Cymbalta] apixaban 5 Yes 5 mg = 1 Mem oria MG Oral 2-25 tab, PO, l Tablet 15:30: Q12H [place] [Eliquis] 00 aspirin 81 Yes 81 mg = 1 Me moria mg tablet, 2-25 tab, PO, l enteric 15:30: Daily [place] coated 00 Cymbalta 60 Yes 60 mg = 1 M emoria mg oral 2-25 cap, PO, l delayed 15:30: Daily [place] release 00 capsule Eliquis 5 Yes 5 mg = 1 Eric oracio mg oral 2-25 tab, PO, l tablet 15:30: Q12H [place] 00 Aspirin 81 Yes 81 mg = 1 Me moria MG Enteric 2-25 tab, PO, l Coated 15:30: Daily [place] Tablet 00 duloxetine Yes 60 mg = 1 Me moria 60 MG 2-25 cap, PO, l Enteric 15:30: Daily [place] Coated 00 Capsule [Cymbalta] apixaban 5 Yes 5 mg = 1 Mem oria MG Oral 2-25 tab, PO, l Tablet 15:30: Q12H [place] [Eliquis] 00 aspirin 81 Yes 81 mg = 1 Me moria mg tablet, 2-25 tab, PO, l enteric 15:30: Daily [place] coated 00 Cymbalta 60 Yes 60 mg = 1 M emoria mg oral 2-25 cap, PO, l delayed 15:30: Daily [place] release 00 capsule Eliquis 5 Yes 5 mg = 1 Eric oracio mg oral 2-25 tab, PO, l tablet 15:30: Q12H [place] 00 Aspirin 81 Yes 81 mg = 1 Me moria MG Enteric 2-25 tab, PO, l Coated 15:30: Daily [place] Tablet 00 duloxetine Yes 60 mg = 1 Me moria 60 MG 2-25 cap, PO, l Enteric 15:30: Daily [place] Coated 00 Capsule [Cymbalta] apixaban 5 Yes 5 mg = 1 Mem oria MG Oral 2-25 tab, PO, l Tablet 15:30: Q12H [place] [Eliquis] 00 Furosemide No Notes: Memor ia 40 MG Oral 2-25 (Same as: l Tablet 15:00: Lasix) May Maribel nn [Lasix] 00 cause GI upset. Give with food or milk. carvedilol No Notes: Memor ia 2-25 Give with l 15:00: food. [place] 00 (Same As: Coreg) Digoxin No Notes: Memoria 0.125 MG 2-25 Take on an l Oral Tablet 15:00: Empty [place] nn 00 Stomach (Same as: Lanoxin) Famotidine No Notes: Memor ia 2-25 (Same as: l 15:00: Pepcid) [place] 00 Can be dilute in 5-10cc NS IVP: Slow IV push over at least 2 minutes. Saline No Notes: Memoria Flush 0.9% 2-25 (Same as: l 15:00: BD [place] 00 Posiflush) Aspirin No Notes: Do Memor ia 2-25 not crush l 15:00: or chew. [place] 00 (Same As: Ecotrin) Furosemide No Notes: Memor ia 40 MG [...] ia 2-25 (Same as: l 15:00: Pepcid) [place] 00 Can be dilute in 5-10cc NS IVP: Slow IV push over at least 2 minutes. Saline No Notes: Memoria Flush 0.9% 2-25 (Same as: l 15:00: BD [place] 00 Posiflush) Aspirin No Notes: Do Memor ia 2-25 not crush l 15:00: or chew. [place] 00 (Same As: Ecotrin) Furosemide No Notes: Memor ia 40 MG Oral 2-25 (Same as: l Tablet 15:00: Lasix) May Maribel nn [Lasix] 00 cause GI upset. Give with food or milk. carvedilol No Notes: Memor ia 2-25 Give with l 15:00: food. [place] 00 (Same As: Coreg) Digoxin No Notes: Memoria 0.125 MG 2-25 Take on an l Oral Tablet 15:00: Empty [place] nn 00 Stomach (Same as: Lanoxin) Famotidine No Notes: Memor ia 2-25 (Same as: l 15:00: Pepcid) [place] 00 Can be dilute in 5-10cc NS IVP: Slow IV push over at least 2 minutes. Saline No Notes: Memoria Flush 0.9% 2-25 (Same as: l 15:00: BD [place] 00 Posiflush) Aspirin No Notes: Do Memor ia 2-25 not crush l 15:00: or chew. [place] 00 (Same As: Ecotrin) 200 ACTUAT No Notes: Memor ia Albuterol 2-25 Albuterol l 0.09 14:00: 90 [place] MG/ACTUAT 00 microgram/ Metered inh 8gm Dose HFA WASTE: Inhaler Aerosol - [Proventil] Return to Pharmacy Same as: Ventolin, Proventil Albuterol No Notes: SEE Me moria 2-25 RT l 14:00: DOCUMENTAT [place] 00 ION (Same as: Proventil) 200 ACTUAT No Notes: Memor ia Albuterol 2-25 Albuterol l 0.09 14:00: 90 [place] MG/ACTUAT 00 microgram/ Metered inh 8gm Dose HFA WASTE: Inhaler Aerosol - [Proventil] Return to Pharmacy Same as: Ventolin, Proventil Albuterol No Notes: SEE Me moria 2-25 RT l 14:00: DOCUMENTAT [place] 00 ION (Same as: Proventil) 200 ACTUAT No Notes: Memor ia Albuterol 2-25 Albuterol l 0.09 14:00: 90 [place] MG/ACTUAT 00 microgram/ Metered inh 8gm Dose HFA Inhaler WASTE: [Proventil] Aerosol - Return to Pharmacy Same as: Ventolin, Proventil Albuterol No Notes: SEE Me moria 2-25 RT l 14:00: DOCUMENTAT [place] 00 ION (Same as: Proventil) Thyroxine No Notes: Memori a 2-25 Take 1 l 12:30: hour [place] 00 before or 2 hours after meal; Enteral feeds may interefere with the absorption of this medication . (Same as:Levothr oid, Synthroid) Thyroxine No Notes: Memori a 2-25 Take 1 l 12:30: hour [place] 00 before or 2 hours after meal; Enteral feeds may interefere with the absorption of this medication . (Same as:Levothr oid, Synthroid) Thyroxine No Notes: Memori a 2-25 Take 1 l 12:30: hour [place] 00 before or 2 hours after meal; Enteral feeds may interefere with the absorption of this medication . (Same as:Levothr oid, Synthroid) Alprazolam No Notes: Memor ia 0.25 MG 2-25 With food l Oral Tablet 11:39: or milk Her song [Xanax] 00 (Same as: Xanax) Alprazolam No Notes: Memor ia 0.25 MG 2-25 With food l Oral Tablet 11:39: or milk Her song [Xanax] 00 (Same as: Xanax) Alprazolam No Notes: Memor ia 0.25 MG 2-25 With food l Oral Tablet 11:39: or milk Her song [Xanax] 00 (Same as: Xanax) albuterol No 2 puff, Memor ia 90 mcg/inh 2-25 Route: l inhalation 08:00: INHALER, Her song aerosol 00 Dosing Weight 75.318, kg, RQ6H, Start date: 11/08/21 2:00:00 MARKET REPORTER, Duration: 30 day, Stop date: 12/07/21 20:00:00 CDT albuterol 0 No 2 puff, Memor ia 90 mcg/inh 2-25 Route: l inhalation 08:00: INHALER, Her song aerosol 00 Dosing Weight 75.318, kg, RQ6H, Start date: 11/08/21 2:00:00 MARKET REPORTER, Duration: 30 day, Stop date: 12/07/21 20:00:00 CDT albuterol 0 No 2 puff, Memor ia 90 mcg/inh 2-25 Route: l inhalation 08:00: INHALER, Her song aerosol 00 Dosing Weight 75.318, kg, RQ6H, Start date: 11/08/21 2:00:00 MARKET REPORTER, Duration: 30 day, Stop date: 12/07/21 20:00:00 CDT Heparin 80 No Route: Memor ia unit/kg 2-25 IVP, PRN, l Bolus 07:53: 5,400 [place] (Heparin 00 unit, 5.4 Dosing mL, Drug Weight) form: INJ, PRN Heparin Protocol, Start date: 11/08/21 1:53:00 MARKET REPORTER, Stop date: 12/08/21 2:52:00 CDT, 30 day, 0 Heparin 40 No Route: Memor ia unit/kg 2-25 IVP, PRN, l Bolus 07:53: 2,700 [place] (Heparin 00 unit, 2.7 Dosing mL, Drug Weight) form: INJ, PRN Heparin Protocol, Start date: 11/08/21 1:53:00 MARKET REPORTER, Stop date: 12/08/21 2:52:00 CDT, 30 day, 0 heparin No Notes: Memoria additive 2-25 Total l 25,000 unit 07:53: Concentrat [place] [18 00 ion = 50 unit/kg/hr] unit/ ml + Premix Total Diluent volume = Sodium 500 ml Chloride Send Med 0.45% 500 Request 2 mL hours prior to next bag Heparin 80 No Route: Memor ia unit/kg 2-25 IVP, PRN, l Bolus 07:53: 5,400 [place] (Heparin 00 unit, 5.4 Dosing mL, Drug Weight) form: INJ, PRN Heparin Protocol, Start date: 11/08/21 1:53:00 MARKET REPORTER, Stop date: 12/08/21 2:52:00 CDT, 30 day, 0 Heparin 40 No Route: Memor ia unit/kg 2-25 IVP, PRN, l Bolus 07:53: 2,700 [place] (Heparin 00 unit, 2.7 Dosing mL, Drug Weight) form: INJ, PRN Heparin Protocol, Start date: 11/08/21 1:53:00 MARKET REPORTER, Stop date: 12/08/21 2:52:00 CDT, 30 day, 0 heparin No Notes: Memoria additive 2-25 Total l 25,000 unit 07:53: Concentrat [place] [18 00 ion = 50 unit/kg/hr] unit/ ml + Premix Total Diluent volume = Sodium 500 ml Chloride Send Med 0.45% 500 Request 2 mL hours prior to next bag Heparin 80 No Route: Memor ia unit/kg 2-25 IVP, PRN, l Bolus 07:53: 5,400 [place] (Heparin 00 unit, 5.4 Dosing mL, Drug Weight) form: INJ, PRN Heparin Protocol, Start date: 11/08/21 1:53:00 MARKET REPORTER, Stop date: 12/08/21 2:52:00 CDT, 30 day, 0 Heparin 40 No Route: Memor ia unit/kg 2-25 IVP, PRN, l Bolus 07:53: 2,700 [place] (Heparin 00 unit, 2.7 Dosing mL, Drug Weight) form: INJ, PRN Heparin Protocol, Start date: 11/08/21 1:53:00 MARKET REPORTER, Stop date: 12/08/21 2:52:00 CDT, 30 day, [...] Memori a 2-25 (Same As: l 07:48: DulcolaxObie 00 Bisco-Lax) Docusate No Notes: Memoria Sodium 50 2-25 (Same as l MG / 07:48: Senokot-S) [place] sennosides, 00 Equiv. to GROUP HOME 8.6 MG Bettie-Colac Oral Tablet e. Saline No Notes: Memoria Flush 0.9% 2-25 (Same as: l 07:48: BD [place] 00 Posiflush) Potassium No Notes: Memori a Chloride 2-25 (Same as: l 07:48: KCL) 10 [place] 00 mEq/100ml product recommende d for peripheral line administra tion. Infuse no faster than 10 mEq/hr if given peripheral ly. sodium No Notes: Memoria phosphate 2-25 Infuse l 07:48: over 4 [place] 00 hour. Do not infuse phosphorou s concurrent ly in the same line as TPN or IVF that contains calcium. For double lumen central lines, phosphorou s may be infused in a separate lumen from TPN. potassium No Notes: Memori a phosphate 2-25 (Same as: l 07:48: K [place] 00 Phosphate. ) Do not infuse phosphorou s concurrent ly in the same line as TPN or IVF that contains calcium. For double lumen central lines, phosphorou s may be infused in a separate lumen from TPN. 1 mMol phoshate has 1.47 mEq potassium Infuse over 4 hours Magnesium No Notes: Memori a Sulfate 2-25 WASTE: F/P l 07:48: - Sink; E [place] 00 - Municipal Trash Bin Nystatin No Notes: Memoria 100 UNT/MG 2-25 (Same l Topical 07:48: as:Mycosta Herm juan m Powder 00 tin, Nilstat) For external use only. Bisacodyl No Notes: Memori a 2-25 (Same As: l 07:48: Dulcolax, [place] 00 Bisco-Lax) Docusate No Notes: Memoria Sodium 50 2-25 (Same as l MG / 07:48: Senokot-S) [place] sennosides, 00 Equiv. to [facility] 8.6 MG Bettie-Colac Oral Tablet e. Saline No Notes: Memoria Flush 0.9% 2-25 (Same as: l 07:48: BD [place] 00 Posiflush) Potassium No Notes: Memori a Chloride 2-25 (Same as: l 07:48: KCL) 10 [place] 00 mEq/100ml product recommende d for peripheral [...] phosphate 2-25 (Same as: l 07:48: K [place] 00 Phosphate. ) Do not infuse phosphorou s concurrent ly in the same line as TPN or IVF that contains calcium. For double lumen central lines, phosphorou s may be infused in a separate lumen from TPN. 1 mMol phoshate has 1.47 mEq potassium Infuse over 4 hours Magnesium No Notes: Memori a Sulfate 2-25 WASTE: F/P l 07:48: - Sink; E [place] 00 - [facility] Trash Bin Nystatin No Notes: Memoria 100 UNT/MG 2-25 (Same l Topical 07:48: as:Mycosta Herm juan m Powder 00 tin, Nilstat) For external use only. Bisacodyl No Notes: Memori a 2-25 (Same As: l 07:48: Dulcolax, [place] 00 Bisco-Lax) Docusate No Notes: Memoria Sodium 50 2-25 (Same as l MG / 07:48: Senokot-S) [place] sennosides, 00 Equiv. to [facility] 8.6 MG Bettie-Colac Oral Tablet e. Saline No Notes: [facility] Flush 0.9% 2-25 (Same as: l 07:48: BD [place] 00 Posiflush) Potassium No Notes: Memori a Chloride 2-25 (Same as: l 07:48: KCL) 10 [place] 00 mEq/100ml product recommende d for peripheral line administra tion. Infuse no faster than 10 mEq/hr if given peripheral ly. sodium No Notes: Memoria phosphate 2-25 Infuse l 07:48: over 4 [place] 00 hour. Do not infuse phosphorou s concurrent ly in the same line as TPN or IVF that contains calcium. For double lumen central lines, phosphorou s may be infused in a separate lumen from TPN. potassium No Notes: Memori a phosphate 2-25 (Same as: l 07:48: K Phosphate. ) Do not infuse phosphorou s concurrent ly in the same line as TPN or IVF that contains calcium. For double lumen central lines, phosphorou s may be infused in a separate lumen from TPN. 1 mMol phoshate has 1.47 mEq potassium Infuse over 4 hours Magnesium No Notes: Memori a Sulfate 2-25 WASTE: F/P l 07:48: - Sink; E [place] 00 - Municipal Trash Bin heparin No 500 mL, Memoria 2-25 Rate: 26 l 07:21: ml/hr, [place] Infuse over: 19.2 hr, Route: IV, Dosing Weight 75.318 kg, Total Volume: 500, Start date: 11/08/21 1:21:00 MARKET REPORTER, Duration: 30 day, Stop date: 12/08/21 1:20:00 CDT, BSA: 1.9 m2 heparin No 500 mL, Memoria 2-25 Rate: 26 l 07:21: ml/hr, [place] 00 Infuse over: 19.2 hr, Route: IV, Dosing Weight 75.318 kg, Total Volume: 500, Start date: 11/08/21 1:21:00 MARKET REPORTER, Duration: 30 day, Stop date: 12/08/21 1:20:00 CDT, BSA: 1.9 m2 heparin No 500 mL, Memoria 2-25 Rate: 26 l 07:21: ml/hr, [place] 00 Infuse over: 19.2 hr, Route: IV, Dosing Weight 75.318 kg, Total Volume: 500, Start date: 11/08/21 1:21:00 MARKET REPORTER, Duration: 30 day, Stop date: 12/08/21 1:20:00 CDT, BSA: 1.9 m2 Acetaminoph Yes 1 tab, PO, Memoria en 325 MG / 2-08 Q6H, PRN l Hydrocodone 20:36: Pain Score [place] Bitartrate 00 1-3, X 7 5 MG Oral day, # 20 Tablet tab, 0 [Challenge Refill(s), 5/325] [id number], 170.1, cm, 10/12/21 5:21:00 MARKET REPORTER, Height, 80.005, kg, 10/11/21 17:51:00 MARKET REPORTER, Weight Acetaminoph Yes 1 tab, PO, Memoria en 325 MG / 2-08 Q6H, PRN l Hydrocodone 20:36: Pain Score [place] Bitartrate 00 1-3, X 7 5 MG Oral day, # 20 Tablet tab, 0 [Challenge Refill(s), ] Pharmacy: [facility] STORE #[id number], 170.1, cm, 10/12/21 5:21:00 MARKET REPORTER, Height, 80.005, kg, 10/11/21 17:51:00 MARKET REPORTER, Weight Acetaminoph Yes 1 tab, PO, Memoria en 325 MG / 2-08 Q6H, PRN l Hydrocodone 20:36: Pain Score [place] Bitartrate 00 1-3, X 7 5 MG Oral day, # 20 Tablet tab, 0 [Challenge Refill(s), ] Pharmacy: [facility] STORE #[id number], 170.1, cm, 10/12/21 5:21:00 MARKET REPORTER, Height, 80.005, kg, 10/11/21 17:51:00 MARKET REPORTER, Weight Bisacodyl No Notes: Memori a 2-03 (Same As: l 20:26: Dulcolax, [place] 00 Bisco-Lax) Bisacodyl No Notes: Memori a 2-03 (Same As: l 20:26: Dulcolax, [place] 00 Bisco-Lax) Bisacodyl No Notes: Memori a 2-03 (Same As: l 20:26: Dulcolax, [place] 00 Bisco-Lax) Docusate No Notes: Memoria Sodium 50 2-01 (Same as l MG / 15:10: Senokot-S) [place] sennosides, 00 Equiv. to GROUP HOME 8.6 MG Bettie-Colac Oral Tablet e. Miralax No Notes: Memoria 2-01 Dissolve l 15:10: in 8 oz of [place] 00 water or juice. (Same as: Miralax) Docusate No Notes: Memoria Sodium 50 2-01 (Same as l MG / 15:10: Senokot-S) [place] sennosides, 00 Equiv. to GROUP HOME 8.6 MG Bettie-Colac Oral Tablet e. Miralax No Notes: Memoria 2-01 Dissolve l 15:10: in 8 oz of [place] 00 water or juice. (Same as: Miralax) Docusate No Notes: Memoria Sodium 50 2-01 (Same as l MG / 15:10: Senokot-S) [place] sennosides, 00 Equiv. to GROUP HOME 8.6 MG Bettie-Colac Oral Tablet e. Miralax No Notes: Memoria 2-01 Dissolve l 15:10: in 8 oz of [place] 00 water or juice. (Same as: Miralax) Docusate No Notes: Memoria Sodium 100 2-01 (Same as: l MG Oral 15:00: Colace) [place] Capsule 00 (Do Not [Colace] Crush) Docusate No Notes: Memoria Sodium 100 2-01 (Same as: l MG Oral 15:00: Colace) [place] Capsule 00 (Do Not [Colace] Crush) Docusate No Notes: Memoria Sodium 100 2-01 (Same as: l MG Oral 15:00: Colace) [place] Capsule 00 (Do Not [Colace] Crush) sennosides, No Notes: Eric oracio GROUP HOME 2-01 (Same as: l 13:32: Senokot) [place] 00 sennosides, No Notes: Eric oracio GROUP HOME 2-01 (Same as: l 13:32: Senokot) [place] 00 sennosides, No Notes: Eric oracio GROUP HOME 2-01 (Same as: l 13:32: Senokot) [place] 00 Flomax No Notes: Memoria 1-31 (Same As: l 23:00: Flomax) [place] 00 "Do Not Crush" Flomax No Notes: Memoria 1-31 (Same As: l 23:00: Flomax) [place] 00 "Do Not Crush" Flomax 2021-0 No Notes: Memoria 1- (Same As: l 23:00: Flomax) [place] 00 "Do Not Crush" Sodium 2-0 No 250 mL, Memoria Chloride - Rate: To l 0.9% 11:57: prime line [place] (titrate) 00 and flush 250 mL remaining blood products., Dosing Weight 80.005, kg, Route: IV, Total Volume: 250, Start Date: 10/14/21 5:57:00 MARKET REPORTER, Duration: 1 day, Stop date: 10/15/21 5:56:00 MARKET REPORTER, Replace Every: 24 hr, 0 Sodium 2-0 No 250 mL, Memoria Chloride - Rate: To l 0.9% 11:57: prime line [place] (titrate) 00 and flush 250 mL remaining blood products., Dosing Weight 80.005, kg, Route: IV, Total Volume: 250, Start Date: 10/14/21 5:57:00 MARKET REPORTER, Duration: 1 day, Stop date: 10/15/21 5:56:00 MARKET REPORTER, Replace Every: 24 hr, 0 Sodium 2-0 No 250 mL, Memoria Chloride 10-14 Rate: To l 0.9% 11:57: prime line [place] (titrate) 00 and flush 250 mL remaining blood products., Dosing Weight 80.005, kg, Route: IV, Total Volume: 250, Start Date: 10/14/21 5:57:00 MARKET REPORTER, Duration: 1 day, Stop date: 10/15/21 5:56:00 MARKET REPORTER, Replace Every: 24 hr, 0 remove 2021-0 No 1 patch, Memoria patch 10-14 Route: l 03:00: TOP, [place] 00 Bedtime, Drug form: ERFILM, Start date: 10/13/21 21:00:00 MARKET REPORTER, Duration: 30 day, Stop date: 11/11/21 21:00:00 MARKET REPORTER, 0 remove 2-0 No 1 patch, Memoria patch 10-14 Route: l 03:00: TOP, [place] 00 Bedtime, Drug form: ERFILM, Start date: 10/13/21 21:00:00 MARKET REPORTER, Duration: 30 day, Stop date: 11/11/21 21:00:00 MARKET REPORTER, 0 remove 2021- No 1 patch, Memoria patch 10-14 Route: l 03:00: TOP, [place] Bedtime, Drug form: ERFILM, Start date: 10/13/21 21:00:00 MARKET REPORTER, Duration: 30 day, Stop date: 11/11/21 21:00:00 MARKET REPORTER, 0 lidocaine 2021-0 No 1 patch, Eric oracio 4% patch 10-13 Route: l 18:33: TOP, [place] Daily, Drug form: FILM, Start date: 10/13/21 12:33:00 MARKET REPORTER, Duration: 30 day, Stop date: 11/12/21 9:00:00 MARKET REPORTER, 0 lidocaine 2021-0 No 1 patch, Eric oracio 4% patch 10-13 Route: l 18:33: TOP, [place] Daily, Drug form: FILM, Start date: 10/13/21 12:33:00 MARKET REPORTER, Duration: 30 day, Stop date: 11/12/21 9:00:00 MARKET REPORTER, 0 lidocaine 2021-0 No 1 patch, Eric oracio 4% patch 10-13 Route: l 18:33: TOP, [place] Daily, Drug form: FILM, Start date: 10/13/21 12:33:00 MARKET REPORTER, Duration: 30 day, Stop date: 11/12/21 9:00:00 MARKET REPORTER, 0 Tylenol No Notes: Do Memor ia 1-30 not exceed l 18:27: 4 gm/day. [place] 00 (Same as: Tylenol) tizanidine No Notes: Memor ia 1-30 (Same As: l 18:27: Zanaflex) [place] 00 Zofran No Notes: Memoria 1-30 (Same as: l 18:27: Zofran) [place] 00 MEDICATION WASTE Product Size: 4 mg Product Wasted: ___ mg Melatonin 3 No Notes: Eric oracio MG Extended 1-30 (Same as: l Release 18:27: Melatonin) Herm juan m Tablet 00 Docusate No 1 tab, Memoria Sodium 50 1-30 Route: PO, l MG / 18:27: Drug Form: [place] sennosides, 00 TAB, GROUP HOME 8.6 MG Dosing Oral Tablet Weight 80.005, kg, BID, PRN Constipati on, Start date: 10/13/21 12:27:00 MARKET REPORTER, Duration: 30 day, Stop date: 11/12/21 12:26:00 MARKET REPORTER Tylenol No Notes: Do Memor ia 1-30 not exceed l 18:27: 4 gm/day. [place] (Same as: Tylenol) tizanidine No Notes: Memor ia 1-30 (Same As: l 18:27: Zanaflex) [place] Zofran No Notes: Memoria 1-30 (Same as: l 18:27: Zofran) MEDICATION WASTE Product Size: 4 mg Product Wasted: ___ mg Melatonin 3 No Notes: Eric oracio MG Extended 1-30 (Same as: l Release 18:27: Melatonin) Herm juan m Tablet 00 Docusate No 1 tab, Memoria Sodium 50 1-30 Route: PO, l MG / 18:27: Drug Form: [place] sennosides, 00 TAB, GROUP HOME 8.6 MG Dosing Oral Tablet Weight 80.005, kg, BID, PRN Constipati on, Start date: 10/13/21 12:27:00 MARKET REPORTER, Duration: 30 day, Stop date: 11/12/21 12:26:00 MARKET REPORTER Tylenol No Notes: Do Memor ia 1-30 not exceed l 18:27: 4 gm/day. [place] 00 (Same as: Tylenol) tizanidine No Notes: Memor ia 1-30 (Same As: l 18:27: Zanaflex) [place] Zofran No Notes: Memoria 1-30 (Same as: l 18:27: Zofran) [place] 00 MEDICATION WASTE Product Size: 4 mg Product Wasted: ___ mg Melatonin 3 No Notes: Eric oracio MG Extended 1-30 (Same as: l Release 18:27: Melatonin) Herm juan m Tablet 00 Docusate No 1 tab, Memoria Sodium 50 1-30 Route: PO, l MG / 18:27: Drug Form: [place] sennosides, 00 TAB, GROUP HOME 8.6 MG Dosing Oral Tablet Weight 80.005, kg, BID, PRN Constipati on, Start date: 10/13/21 12:27:00 MARKET REPORTER, Duration: 30 day, Stop date: 11/12/21 12:26:00 MARKET REPORTER Ceftriaxone 2-0 No Notes: Eric oracio 1-30 (Same As: l 17:00: Rocephin). Use with 100 mL NS and infuse over 30 min MEDICATION WASTE Product Size: 1000 mg Product Wasted: ___ mg Ceftriaxone 202-0 No Notes: Eric oracio 1-30 (Same As: l 17:00: Rocephin). Use with 100 mL NS and infuse over 30 min MEDICATION WASTE Product Size: 1000 mg Product Wasted: ___ mg Ceftriaxone 2021-0 No Notes: Eric oracio 1-30 (Same As: l 17:00: Rocephin). Use with 100 mL NS and infuse over 30 min MEDICATION WASTE Product Size: 1000 mg Product Wasted: ___ mg Levothroid 202-0 No 100 Memoria 1-30 microgram, l 12:30: 1 tab, Route: PO, Drug form: TAB, Q630AM, Dosing Weight 80.005, kg, Start date: 10/13/21 6:30:00 MARKET REPORTER, Duration: 30 day, Stop date: 11/11/21 6:30:00 MARKET REPORTER, 0 Levothroid 2022-0 No 100 Memoria 1-30 microgram, l 12:30: 1 tab, Route: PO, Drug form: TAB, Q630AM, Dosing Weight 80.005, kg, Start date: 10/13/21 6:30:00 MARKET REPORTER, Duration: 30 day, Stop date: 11/11/21 6:30:00 MARKET REPORTER, 0 Levothroid 2022-0 No 100 Memoria 1-30 microgram, l 12:30: 1 tab, Route: PO, Drug form: TAB, Q630AM, Dosing Weight 80.005, kg, Start date: 10/13/21 6:30:00 MARKET REPORTER, Duration: 30 day, Stop date: 11/11/21 6:30:00 MARKET REPORTER, 0 Trazodone No Notes: Memori a Hydrochlori 1-30 (Same As: l de 100 MG 03:00: Desyrel) Herm juan m Oral Tablet 00 Trazodone No Notes: Memori a Hydrochlori 1-30 (Same As: l de 100 MG 03:00: Desyrel) Herm juan m Oral Tablet 00 Trazodone No Notes: Memori a Hydrochlori 1-30 (Same As: l de 100 MG 03:00: Desyrel) Herm juan m Oral Tablet 00 Diltiazem No Notes: Memori a - (Same as: l 22:00: Cardizem) [place] 00 Before meals Diltiazem No Notes: Memori a - (Same as: l 22:00: Cardizem) [place] 00 Before meals Diltiazem No Notes: Memori a -29 (Same as: l 22:00: Cardizem) [place] 00 Before meals Dilaudid No Notes: Memoria - Same as: l 17:57: Dilaudid [place] 00 Dilaudid No Notes: Memoria - Same as: l 17:57: Dilaudid [place] 00 Dilaudid No Notes: Memoria 10-12 Same as: l 17:57: Dilaudid [place] 00 Albuterol No Notes: SEE Me moria -29 RT l 17:00: DOCUMENTAT [place] 00 ION (Same as: Proventil) Albuterol No Notes: SEE Me moria -29 RT l 17:00: DOCUMENTAT [place] 00 ION (Same as: Proventil) Albuterol No Notes: SEE Me moria -29 RT l 17:00: DOCUMENTAT [place] 00 ION (Same as: Proventil) Aspirin 81 No Notes: Do Me moria MG Enteric 10-12 not crush l Coated 15:00: or chew. [place] Tablet 00 (Same As: Ecotrin) carvedilol No Notes: Memor ia 10-12 Give with l 15:00: food. [place] 00 (Same As: Coreg) Digoxin No Notes: Memoria 0.125 MG 1-29 Take on an l Oral Tablet 15:00: Empty Maribel nn 00 Stomach (Same as: Lanoxin) Cymbalta No Notes: Memoria 1-29 (Same as: l 15:00: Cymbalta) [place] 00 (Do Not Crush) Dulera 100 No 2 puff, Eric oracio mcg-5 - Route: l mcg/inh 15:00: INHALER, Luis n inhalation 00 Drug Form: aerosol AERO, Dosing Weight 80.005, kg, BID, Start date: 10/12/21 9:00:00 MARKET REPORTER, Duration: 30 day, Stop date: 11/10/21 17:00:00 MARKET REPORTER Furosemide No Notes: Memor ia 1-29 (Same as: l 15:00: Lasix) May [place] cause GI upset. Give with food or milk. gabapentin No Notes: Memor ia 1- (Same as: l 15:00: Neurontin) [place] Potassium No Notes: Memori a Chloride - (Same as: l 15:00: K-Dur 10) [place] 00 "Do Not Crush" With food and full glass of water Eliquis No Notes: Memoria 1-29 Same as: l 15:00: Eliquis [place] 00 Aspirin 81 No Notes: Do Me moria MG Enteric - not crush l Coated 15:00: or chew. [place] Tablet 00 (Same As: Ecotrin) carvedilol No Notes: Memor ia 1-29 Give with l 15:00: food. [place] 00 (Same As: Coreg) Digoxin No Notes: Memoria 0.125 MG 1-29 Take on an l Oral Tablet 15:00: Empty [place] nn 00 Stomach (Same as: Lanoxin) Cymbalta No Notes: Memoria 1-29 (Same as: l 15:00: Cymbalta) [place] 00 (Do Not Crush) Dulera 100 No 2 puff, Eric oracio mcg-5 10-12 Route: l mcg/inh 15:00: INHALER, Luis n inhalation 00 Drug Form: aerosol AERO, Dosing Weight 80.005, kg, BID, Start date: 10/12/21 9:00:00 MARKET REPORTER, Duration: 30 day, Stop date: 11/10/21 17:00:00 MARKET REPORTER Furosemide No Notes: Memor ia - (Same as: l 15:00: Lasix) May [place] cause GI upset. Give with food or milk. gabapentin No Notes: Memor ia - (Same as: l 15:00: Neurontin) [place] Potassium No Notes: Memori a Chloride - (Same as: l 15:00: K-Dur 10) [place] "Do Not Crush" With food and full glass of water Eliquis No Notes: Memoria - Same as: l 15:00: Eliquis [place] 00 Aspirin 81 No Notes: Do Me moria MG Enteric 10-12 not crush l Coated 15:00: or chew. [place] Tablet 00 (Same As: Ecotrin) carvedilol No Notes: Memor ia - Give with l 15:00: food. [place] 00 (Same As: Coreg) Digoxin No Notes: Memoria 0.125 MG - Take on an l Oral Tablet 15:00: Empty [place]ibel nn 00 Stomach (Same as: Lanoxin) Cymbalta No Notes: Memoria - (Same as: l 15:00: Cymbalta) [place] 00 (Do Not Crush) Dulera 100 No 2 puff, Eric oracio mcg-5 10-12 Route: l mcg/inh 15:00: INHALER, Luis n inhalation 00 Drug Form: aerosol AERO, Dosing Weight 80.005, kg, BID, Start date: 10/12/21 9:00:00 MARKET REPORTER, Duration: 30 day, Stop date: 11/10/21 17:00:00 MARKET REPORTER Furosemide No Notes: Memor ia - (Same as: l 15:00: Lasix) May [place] cause GI upset. Give with food or milk. gabapentin No Notes: Memor ia 10-12 (Same as: l 15:00: Neurontin) [place] Potassium No Notes: Memori a Chloride 10-12 (Same as: l 15:00: K-Dur 10) [place] "Do Not Crush" With food and full glass of water Eliquis No Notes: Memoria 10-12 Same as: l 15:00: Eliquis [place] 00 Pulmicort No Notes: Memori a Respules - (Same As: l 14:39: Pulmicort [place] 00 respule). Pulmicort No Notes: Memori a Respules - (Same As: l 14:39: Pulmicort [place] 00 respule). Pulmicort No Notes: Memori a Respules - (Same As: l 14:39: Pulmicort [place] 00 respule). Docusate No Notes: Memoria Sodium 50 - (Same as l MG / 14:33: Senokot-S) [place] sennosides, 00 Equiv. to GROUP HOME 8.6 MG Bettie-Col[place] Oral Tablet e. Docusate No Notes: Memoria Sodium 50 - (Same as l MG / 14:33: Senokot-S) [place] sennosides, 00 Equiv. to GROUP HOME 8.6 MG Bettie-[place] Oral Tablet e. Docusate No Notes: Memoria Sodium 50 - (Same as l MG / 14:33: Senokot-S) [place] sennosides, 00 Equiv. to GROUP HOME 8.6 MG Bettie-[place] Oral Tablet e. Acetaminoph No Notes: Eric oracio en 325 MG / 10-12 (Same as: l Hydrocodone 01:07: Challenge [place] nn Bitartrate 00 325/5) Do 5 MG Oral not exceed Tablet 4gm/day of [Challenge acetaminop 5/325] hen. Acetaminoph No Notes: Eric oracio en 325 MG / 10-12 (Same as: l Hydrocodone 01:07: Challenge [place] nn Bitartrate 00 325/5) Do 5 MG Oral not exceed Tablet 4gm/day of [Challenge acetaminop 5/325] hen. Acetaminoph 2021-0 No Notes: Eric oracio en 325 MG / 10-12 (Same as: l Hydrocodone 01:07: Challenge [place] nn Bitartrate 325/5) Do 5 MG Oral not exceed Tablet 4gm/day of [Challenge acetaminop 5/325] hen. Calcium 2021-0 No 1,000 mL, Memor ia Chloride 10-11 Rate: 125 l 0.0014 23:08: ml/hr, [place] MEQ/ML / 00 Infuse Potassium over: 8 Chloride hr, Route: 0.004 IV, Dosing MEQ/ML / Weight Sodium 76.864 kg, Chloride Total 0.103 Volume: MEQ/ML / 1,000, Sodium Start Lactate date: 0.028 10/11/21 MEQ/ML 17:08:00 Injectable MARKET REPORTER, Solution Duration: 30 day, Stop date: 11/10/21 17:07:00 MARKET REPORTER, BSA: 1.92 m2, 0 Hydralazine 2021-0 No 10 mg, Eric oracio 10-11 Route: l 23:08: IVP, [place] 00 Q20Min, Dosing Weight 76.864, kg, PRN Elevated BP, Start date: 10/11/21 17:08:00 MARKET REPORTER, Duration: 2 doses or times, Stop date: Limited # of times Acetaminoph 2021-0 No 1,000 mg, M emoria en 10-11 Route: PO, l 23:08: Drug form: [place] 00 TAB, ONCE, Dosing Weight 76.864, kg, PRN Pain Score 1-3, Start date: 10/11/21 17:08:00 MARKET REPORTER Fentanyl 2021-0 No 25 Memoria 10-11 microgram, l 23:08: Route: [place] 00 IVP, Q5Min, Dosing Weight 76.864, kg, PRN Pain Score 4-6, Priority: Routine, Start date: 10/11/21 17:08:00 MARKET REPORTER, Duration: 4 doses or times, Stop date: Limited # of times Hydromorpho 2021-0 No 0.5 mg, Mem oria ne 10-11 Route: l 23:08: IVP, [place] 00 Q5Min, Dosing Weight 76.864, kg, PRN Pain Score 7-10, Start date: 10/11/21 17:08:00 MARKET REPORTER, Duration: 4 doses or times, Stop date: Limited # of times Flumazenil 2-0 No 0.2 mg, Eric oracio 10-11 Route: l 23:08: IVP, PRN, Dosing Weight 76.864, kg, PRN Benzodiaze pine Reversal, Initial dose, Start date: 10/11/21 17:08:00 MARKET REPORTER, Duration: 30 day, Stop date: 11/10/21 17:07:00 MARKET REPORTER Naloxone 2-0 No 0.4 mg, Memori a 10-11 Route: l 23:08: IVP, [place] 00 Q2MIN, Dosing Weight 76.864, kg, PRN Narcotic Reversal, Start date: 10/11/21 17:08:00 MARKET REPORTER, Duration: 8 doses or times, Stop date: Limited # of times Ondansetron 2-0 No 4 mg, Memor ia 10-11 Route: l 23:08: IVP, ONCE, Dosing Weight 76.864, kg, PRN Nausea & Vomiting, Start date: 10/11/21 17:08:00 MARKET REPORTER Calcium 2-0 No 1,000 mL, Memor ia Chloride 10-11 Rate: 125 l 0.0014 23:08: ml/hr, MEQ/ML / 00 Infuse Potassium over: 8 Chloride hr, Route: 0.004 IV, Dosing MEQ/ML / Weight Sodium 76.864 kg, Chloride Total 0.103 Volume: MEQ/ML / 1,000, Sodium Start Lactate date: 0.028 10/11/21 MEQ/ML 17:08:00 Injectable MARKET REPORTER, Solution Duration: 30 day, Stop date: 11/10/21 17:07:00 MARKET REPORTER, BSA: 1.92 m2, 0 Hydralazine 2-0 No 10 mg, Eric oracio 10-11 Route: l 23:08: IVP, [place] 00 Q20Min, Dosing Weight 76.864, kg, PRN Elevated BP, Start date: 10/11/21 17:08:00 MARKET REPORTER, Duration: 2 doses or times, Stop date: Limited # of times Acetaminoph 2022-0 No 1,000 mg, M roloria en 10-11 Route: PO, l 23:08: Drug form: [place] 00 TAB, ONCE, Dosing Weight 76.864, kg, PRN Pain Score 1-3, Start date: 10/11/21 17:08:00 MARKET REPORTER Fentanyl 2-0 No 25 Memoria 10-11 microgram, l 23:08: Route: [place] 00 IVP, Q5Min, Dosing Weight 76.864, kg, PRN Pain Score 4-6, Priority: Routine, Start date: 10/11/21 17:08:00 MARKET REPORTER, Duration: 4 doses or times, Stop date: Limited # of times Hydromorpho 2021-0 No 0.5 mg, Mem oria ne 10-11 Route: l 23:08: IVP, [place] 00 Q5Min, Dosing Weight 76.864, kg, PRN Pain Score 7-10, Start date: 10/11/21 17:08:00 MARKET REPORTER, Duration: 4 doses or times, Stop date: Limited # of times Flumazenil 2021-0 No 0.2 mg, Eric oracio 10-11 Route: l 23:08: IVP, PRN, Dosing Weight 76.864, kg, PRN Benzodiaze pine Reversal, Initial dose, Start date: 10/11/21 17:08:00 MARKET REPORTER, Duration: 30 day, Stop date: 11/10/21 17:07:00 MARKET REPORTER Naloxone 2-0 No 0.4 mg, Memori a 10-11 Route: l 23:08: IVP, [place] 00 Q2MIN, Dosing Weight 76.864, kg, PRN Narcotic Reversal, Start date: 10/11/21 17:08:00 MARKET REPORTER, Duration: 8 doses or times, Stop date: Limited # of times Ondansetron 2-0 No 4 mg, Memor ia 10-11 Route: l 23:08: IVP, ONCE, [place] 00 Dosing Weight 76.864, kg, PRN Nausea & Vomiting, Start date: 10/11/21 17:08:00 MARKET REPORTER Calcium 2-0 No 1,000 mL, Memor ia Chloride 10-11 Rate: 125 l 0.0014 23:08: ml/hr, [place] MEQ/ML / 00 Infuse Potassium over: 8 Chloride hr, Route: 0.004 IV, Dosing MEQ/ML / Weight Sodium 76.864 kg, Chloride Total 0.103 Volume: MEQ/ML / 1,000, Sodium Start Lactate date: 0.028 10/11/21 MEQ/ML 17:08:00 Injectable MARKET REPORTER, Solution Duration: 30 day, Stop date: 11/10/21 17:07:00 MARKET REPORTER, BSA: 1.92 m2, 0 Hydralazine 2-0 No 10 mg, Eric oracio 10-11 Route: l 23:08: IVP, [place] 00 Q20Min, Dosing Weight 76.864, kg, PRN Elevated BP, Start date: 10/11/21 17:08:00 MARKET REPORTER, Duration: 2 doses or times, Stop date: Limited # of times Acetaminoph 2-0 No 1,000 mg, M emoria en 10-11 Route: PO, l 23:08: Drug form: [place] 00 TAB, ONCE, Dosing Weight 76.864, kg, PRN Pain Score 1-3, Start date: 10/11/21 17:08:00 MARKET REPORTER Fentanyl 2021-0 No 25 Memoria 10-11 microgram, l 23:08: Route: [place] 00 IVP, Q5Min, Dosing Weight 76.864, kg, PRN Pain Score 4-6, Priority: Routine, Start date: 10/11/21 17:08:00 MARKET REPORTER, Duration: 4 doses or times, Stop date: Limited # of times Hydromorpho 2-0 No 0.5 mg, Mem oria ne 10-11 Route: l 23:08: IVP, [place] 00 Q5Min, Dosing Weight 76.864, kg, PRN Pain Score 7-10, Start date: 10/11/21 17:08:00 MARKET REPORTER, Duration: 4 doses or times, Stop date: Limited # of times Flumazenil 2-0 No 0.2 mg, Eric oracio 10-11 Route: l 23:08: IVP, PRN, [place] 00 Dosing Weight 76.864, kg, PRN Benzodiaze pine Reversal, Initial dose, Start date: 10/11/21 17:08:00 MARKET REPORTER, Duration: 30 day, Stop date: 11/10/21 17:07:00 MARKET REPORTER Naloxone 2021-0 No 0.4 mg, Memori a 10-11 Route: l 23:08: IVP, Q2MIN, Dosing Weight 76.864, kg, PRN Narcotic Reversal, Start date: 10/11/21 17:08:00 MARKET REPORTER, Duration: 8 doses or times, Stop date: Limited # of times Ondansetron 0 No 4 mg, Memor ia 10-11 Route: l 23:08: IVP, ONCE, Dosing Weight 76.864, kg, PRN Nausea & Vomiting, Start date: 10/11/21 17:08:00 MARKET REPORTER Lovenox 2021-0 No Notes: Memoria 10-11 (Same as: l 23:00: Lovenox) Lovenox 0 No Notes: Memoria 10-11 (Same as: l 23:00: Lovenox) Lovenox 2021-0 No Notes: Memoria 10-11 (Same as: l 23:00: Lovenox) metoprolol 0 No Route: IV, M emoria (ANES) 10-11 Drug form: l 22:53: INJ, ONCE, Stop date: 10/11/21 16:53:00 MARKET REPORTER hydrALAZINE 2021-0 No Route: IV, Memoria (ANES) 10-11 Drug form: l 22:53: INJ, ONCE, Stop date: 10/11/21 16:53:00 MARKET REPORTER metoprolol 2021-0 No Route: IV, M emoria (ANES) 10-11 Drug form: l 22:53: INJ, ONCE, Stop date: 10/11/21 16:53:00 MARKET REPORTER hydrALAZINE 2021-0 No Route: IV, Memoria (ANES) 10-11 Drug form: l 22:53: INJ, ONCE, Stop date: 10/11/21 16:53:00 MARKET REPORTER metoprolol 2021-0 No Route: IV, M emoria (ANES) 10-11 Drug form: l 22:53: INJ, ONCE, Stop date: 10/11/21 16:53:00 MARKET REPORTER hydrALAZINE 2021-0 No Route: IV, Memoria (ANES) 10-11 Drug form: l 22:53: INJ, ONCE, Stop date: 10/11/21 16:53:00 MARKET REPORTER ondansetron 2021-0 No Route: IV, Memoria (ANES) 10-11 Drug form: l 22:43: INJ, ONCE, Stop date: 10/11/21 16:43:00 MARKET REPORTER glycopyrrol 2021-0 No Route: IV, Memoria ate (ANES) 10-11 Drug form: l 22:43: INJ, ONCE, Stop date: 10/11/21 16:43:00 MARKET REPORTER neostigmine 2021-0 No Route: IV, Memoria (ANES) 10-11 Drug form: l 22:43: INJ, ONCE, Stop date: 10/11/21 16:43:00 MARKET REPORTER ondansetron 2021-0 No Route: IV, Memoria (ANES) 10-11 Drug form: l 22:43: INJ, ONCE, Stop date: 10/11/21 16:43:00 MARKET REPORTER glycopyrrol 2021-0 No Route: IV, Memoria ate (ANES) 10-11 Drug form: l 22:43: INJ, ONCE, Stop date: 10/11/21 16:43:00 MARKET REPORTER neostigmine 2021-0 No Route: IV, Memoria (ANES) 10-11 Drug form: l 22:43: INJ, ONCE, Stop date: 10/11/21 16:43:00 MARKET REPORTER ondansetron 2021-0 No Route: IV, Memoria (ANES) 10-11 Drug form: l 22:43: INJ, ONCE, Stop date: 10/11/21 16:43:00 MARKET REPORTER glycopyrrol 2021-0 No Route: IV, Memoria ate (ANES) 10-11 Drug form: l 22:43: INJ, ONCE, Stop date: 10/11/21 16:43:00 MARKET REPORTER neostigmine 2021-0 No Route: IV, Memoria (ANES) 10-11 Drug form: l 22:43: INJ, ONCE, Stop date: 10/11/21 16:43:00 MARKET REPORTER normal 2021-0 No 1,000 mL, Memori a saline 0.9% - Rate: 100 l IV 1,000 mL 22:37: ml/hr, Herm juan m 00 Infuse over: 10 hr, Route: IV, Dosing Weight 76.864 kg, Total Volume: 1,000, Start date: 10/11/21 16:37:00 MARKET REPORTER, Duration: 30 day, Stop date: 11/10/21 16:36:00 MARKET REPORTER, BSA: 1.92 m2, 0 normal 2021-0 No 1,000 mL, Memori a saline 0.9% 10-11 Rate: 100 l IV 1,000 mL 22:37: ml/hr, Herm juan m 00 Infuse over: 10 hr, Route: IV, Dosing Weight 76.864 kg, Total Volume: 1,000, Start date: 10/11/21 16:37:00 MARKET REPORTER, Duration: 30 day, Stop date: 11/10/21 16:36:00 MARKET REPORTER, BSA: 1.92 m2, 0 normal 2021-0 No 1,000 mL, Memori a saline 0.9% 10-11 Rate: 100 l IV 1,000 mL 22:37: ml/hr, Herm juan m 00 Infuse over: 10 hr, Route: IV, Dosing Weight 76.864 kg, Total Volume: 1,000, Start date: 10/11/21 16:37:00 MARKET REPORTER, Duration: 30 day, Stop date: 11/10/21 16:36:00 MARKET REPORTER, BSA: 1.92 m2, 0 protamine No Route: IV, Me moria (ANES) 10-11 Drug form: l 22:32: INJ, ONCE, Stop date: 10/11/21 16:32:00 MARKET REPORTER protamine 2021-0 No Route: IV, Me moria (ANES) 10-11 Drug form: l 22:32: INJ, ONCE, Stop date: 10/11/21 16:32:00 MARKET REPORTER protamine 2021-0 No Route: IV, Me moria (ANES) 10-11 Drug form: l 22:32: INJ, ONCE, Stop date: 10/11/21 16:32:00 MARKET REPORTER heparin 2021-0 No Route: IV, Eric oracio (ANES) 10-11 Drug form: l 21:11: INJ, ONCE, Stop date: 10/11/21 15:11:00 MARKET REPORTER heparin 2021-0 No Route: IV, Eric oracio (ANES) 10-11 Drug form: l 21:11: INJ, ONCE, Stop date: 10/11/21 15:11:00 MARKET REPORTER heparin 2021-0 No Route: IV, Eric oracio (ANES) 10-11 Drug form: l 21:11: INJ, ONCE, Stop date: 10/11/21 15:11:00 MARKET REPORTER rocuronium 2021-0 No Route: IV, M emoria (ANES) 10-11 Drug form: l 20:25: INJ, ONCE, Stop date: 10/11/21 14:25:00 MARKET REPORTER dexamethaso 2021-0 No Route: IV, Memoria ne (ANES) 10-11 Drug form: l 20:25: INJ, ONCE, Stop date: 10/11/21 14:25:00 MARKET REPORTER rocuronium 2021-0 No Route: IV, M emoria (ANES) 10-11 Drug form: l 20:25: INJ, ONCE, Stop date: 10/11/21 14:25:00 MARKET REPORTER dexamethaso 2021-0 No Route: IV, Memoria ne (ANES) 10-11 Drug form: l 20:25: INJ, ONCE, Stop date: 10/11/21 14:25:00 MARKET REPORTER rocuronium 2-0 No Route: IV, M emoria (ANES) 10-11 Drug form: l 20:25: INJ, ONCE, Stop date: 10/11/21 14:25:00 MARKET REPORTER dexamethaso 2021-0 No Route: IV, Memoria ne (ANES) 10-11 Drug form: l 20:25: INJ, ONCE, Stop date: 10/11/21 14:25:00 MARKET REPORTER fentaNYL 2021-0 No Route: IV, Mem oria (ANES) 10-11 Drug form: l 19:55: INJ, ONCE, Stop date: 10/11/21 13:55:00 MARKET REPORTER propofol 2021-0 No Route: IV, Mem oria (ANES) 10-11 Drug form: l 19:55: INJ, ONCE, Stop date: 10/11/21 13:55:00 MARKET REPORTER ceFAZolin 2021-0 No Route: IV, Me moria (ANES) 10-11 Drug form: l 19:55: INJ, ONCE, Stop date: 10/11/21 13:55:00 MARKET REPORTER lidocaine 2021-0 No Route: IV, Me moria (ANES) 10-11 Drug form: l 19:55: INJ, ONCE, Stop date: 10/11/21 13:55:00 MARKET REPORTER fentaNYL 2021-0 No Route: IV, Mem oria (ANES) 10-11 Drug form: l 19:55: INJ, ONCE, Stop date: 10/11/21 13:55:00 MARKET REPORTER propofol 2021-0 No Route: IV, Mem oria (ANES) 10-11 Drug form: l 19:55: INJ, ONCE, Stop date: 10/11/21 13:55:00 MARKET REPORTER ceFAZolin 2021-0 No Route: IV, Me moria (ANES) 10-11 Drug form: l 19:55: INJ, ONCE, Stop date: 10/11/21 13:55:00 MARKET REPORTER lidocaine 2021-0 No Route: IV, Me moria (ANES) 10-11 Drug form: l 19:55: INJ, ONCE, Stop date: 10/11/21 13:55:00 MARKET REPORTER fentaNYL 2021-0 No Route: IV, Mem oria (ANES) 10-11 Drug form: l 19:55: INJ, ONCE, Stop date: 10/11/21 13:55:00 MARKET REPORTER propofol 2021-0 No Route: IV, Mem oria (ANES) 10-11 Drug form: l 19:55: INJ, ONCE, Stop date: 10/11/21 13:55:00 MARKET REPORTER ceFAZolin 2021-0 No Route: IV, Me moria (ANES) 10-11 Drug form: l 19:55: INJ, ONCE, Stop date: 10/11/21 13:55:00 MARKET REPORTER lidocaine 2021-0 No Route: IV, Me moria (ANES) 10-11 Drug form: l 19:55: INJ, ONCE, Stop date: 10/11/21 13:55:00 MARKET REPORTER vancomycin 2021-0 No Route: IV, Salas sethria (ANES) 1000 10-11 Drug form: l mg 19:20: INJ, Start date: 10/11/21 13:20:00 MARKET REPORTER, Stop date: 10/11/21 14:20:00 MARKET REPORTER vancomycin 2021-0 No Route: IV, Salas sethria (ANES) 1000 10-11 Drug form: l mg 19:20: INJ, Start date: 10/11/21 13:20:00 MARKET REPORTER, Stop date: 10/11/21 14:20:00 MARKET REPORTER vancomycin 2021-0 No Route: IV, Salas sethria (ANES) 1000 10-11 Drug form: l mg 19:20: INJ, Start date: 10/11/21 13:20:00 MARKET REPORTER, Stop date: 10/11/21 14:20:00 MARKET REPORTER midazolam 2021-0 No Route: IV, moria (ANES) 10-11 Drug form: l 19:09: SOLN, [place] 00 ONCE, Stop date: 10/11/21 13:09:00 MARKET REPORTER midazolam 2021-0 No Route: IV, moria (ANES) 10-11 Drug form: l 19:09: SOLN, [place] 00 ONCE, Stop date: 10/11/21 13:09:00 MARKET REPORTER midazolam 2021-0 No Route: IV, moria (ANES) 10-11 Drug form: l 19:09: SOLN, [place] 00 ONCE, Stop date: 10/11/21 13:09:00 MARKET REPORTER Sodium 2021-0 No Route: IV, Memor ia Chloride 10-11 Total l 0.9% IV 18:50: Volume: Obie (ANES) 1000 00 1,000, mL Start date: 10/11/21 12:50:00 MARKET REPORTER, Stop date: 10/11/21 13:50:00 MARKET REPORTER Sodium 2021-0 No Route: IV, Memor ia Chloride 10-11 Total l 0.9% IV 18:50: Volume: [place] (ANES) 1000 1,000, mL Start date: 10/11/21 12:50:00 MARKET REPORTER, Stop date: 10/11/21 13:50:00 MARKET REPORTER Sodium 2-0 No Route: IV, Memor ia Chloride - Total l 0.9% IV 18:50: Volume: [place] (ANES) 1000 00 1,000, mL Start date: 10/11/21 12:50:00 MARKET REPORTER, Stop date: 10/11/21 13:50:00 MARKET REPORTER Lactated 2021-0 No Route: IV, Mem oria Ringers 1-28 Total l Injection 18:36: Volume: Maribel nn IV (ANES) 00 1,000, 1000 mL Start date: 10/11/21 12:36:00 MARKET REPORTER, Stop date: 10/11/21 13:36:00 MARKET REPORTER Lactated 2021-0 No Route: IV, Mem oria Ringers 1-28 Total l Injection 18:36: Volume: Maribel nn IV (ANES) 00 1,000, 1000 mL Start date: 10/11/21 12:36:00 MARKET REPORTER, Stop date: 10/11/21 13:36:00 MARKET REPORTER Lactated 2021-0 No Route: IV, Mem oria Ringers 1-28 Total l Injection 18:36: Volume: Maribel nn IV (ANES) 00 1,000, 1000 mL Start date: 10/11/21 12:36:00 MARKET REPORTER, Stop date: 10/11/21 13:36:00 MARKET REPORTER Lactated 2021-0 No 1,000 mL, Eric oracio Ringers IV 10-11 Rate: 75 l 1,000 mL 18:34: ml/hr, [place] Infuse over: 13.3 hr, Route: IV, Dosing Weight 76.864 kg, Total Volume: 1,000, Start date: 10/11/21 12:34:00 MARKET REPORTER, Duration: 30 day, Stop date: 11/10/21 12:33:00 MARKET REPORTER, BSA: 1.92 m2, 0 Lactated 2021-0 No 1,000 mL, Eric oracio Ringers IV 10-11 Rate: 75 l 1,000 mL 18:34: ml/hr, [place] 00 Infuse over: 13.3 hr, Route: IV, Dosing Weight 76.864 kg, Total Volume: 1,000, Start date: 10/11/21 12:34:00 MARKET REPORTER, Duration: 30 day, Stop date: 11/10/21 12:33:00 MARKET REPORTER, BSA: 1.92 m2, 0 Lactated 2-0 No 1,000 mL, Eric oracio Ringers IV 10-11 Rate: 75 l 1,000 mL 18:34: ml/hr, [place] 00 Infuse over: 13.3 hr, Route: IV, Dosing Weight 76.864 kg, Total Volume: 1,000, Start date: 10/11/21 12:34:00 MARKET REPORTER, Duration: 30 day, Stop date: 11/10/21 12:33:00 MARKET REPORTER, BSA: 1.92 m2, 0 Calcium 2022-0 No 1,000 mL, Memor ia Chloride 1-20 Rate: 75 l 0.0014 16:59: ml/hr, [place] MEQ/ML / 00 Infuse Potassium over: 13.3 Chloride hr, Route: 0.004 IV, Dosing MEQ/ML / Weight Sodium 76.864 kg, Chloride Total 0.103 Volume: MEQ/ML / 1,000, Sodium Start Lactate date: 0.028 10/03/21 MEQ/ML 10:59:00 Injectable MARKET REPORTER, Solution Duration: 30 day, Stop date: 11/02/21 10:58:00 MARKET REPORTER, BSA: 1.92 m2 Calcium 2022-0 No 1,000 mL, Memor ia Chloride 1-20 Rate: 75 l 0.0014 16:59: ml/hr, [place] MEQ/ML / 00 Infuse Potassium over: 13.3 Chloride hr, Route: 0.004 IV, Dosing MEQ/ML / Weight Sodium 76.864 kg, Chloride Total 0.103 Volume: MEQ/ML / 1,000, Sodium Start Lactate date: 0.028 10/03/21 MEQ/ML 10:59:00 Injectable MARKET REPORTER, Solution Duration: 30 day, Stop date: 11/02/21 10:58:00 MARKET REPORTER, BSA: 1.92 m2 Calcium 2022-0 No 1,000 mL, Memor ia Chloride 1-20 Rate: 75 l 0.0014 16:59: ml/hr, Ob[place] MEQ/ML / 00 Infuse Potassium over: 13.3 Chloride hr, Route: 0.004 IV, Dosing MEQ/ML / Weight Sodium 76.864 kg, Chloride Total 0.103 Volume: MEQ/ML / 1,000, Sodium Start Lactate date: 0.028 10/03/21 MEQ/ML 10:59:00 Injectable MARKET REPORTER, Solution Duration: 30 day, Stop date: 11/02/21 10:58:00 MARKET REPORTER, BSA: 1.92 m2 carvedilol 2021-0 Yes 25 mg = 2 Me moria 12.5 mg 1-17 tab, PO, l oral tablet 20:47: Q12H, # Her song 00 120 tab, 1 Refill(s), Pharmacy: [facility] #[id number], 170.18, cm, 09/29/21 4:04:00 MARKET REPORTER, Height, 76.864, kg, 09/29/21 4:04:00 MARKET REPORTER, Weight Digoxin 2021-0 Yes 0.125 mg = Eric oracio 0.125 MG 1-17 1 tab, PO, l Oral Tablet 20:47: Daily, # He rmann 00 30 tab, 1 Refill(s), [id number], 170.18, cm, 09/29/21 4:04:00 MARKET REPORTER, Height, 76.864, kg, 09/29/21 4:04:00 MARKET REPORTER, Weight diltiazem 0 Yes 60 mg = 1 Mem oria 60 mg oral 1-17 tab, PO, l tablet 20:47: Q8H, # 90 Luis n 00 tab, 1 Refill(s), [facility][id number], 170.18, cm, 09/29/21 4:04:00 MARKET REPORTER, Height, 76.864, kg, 09/29/21 4:04:00 MARKET REPORTER, Weight Docusate 2021-0 Yes 1 tab, PO, Mem oria Sodium 50 1-17 BID, PRN l MG / 20:47: Constipati [place] sennosides, 00 on, X 14 GROUP HOME 8.6 MG day, # 30 Oral Tablet tab, 0 Refill(s), [facility][id number], 170.18, cm, 09/29/21 4:04:00 MARKET REPORTER, Height, 76.864, kg, 09/29/21 4:04:00 MARKET REPORTER, Weight carvedilol 2021-0 Yes 25 mg = 2 Me moria 12.5 mg 1-17 tab, PO, l oral tablet 20:47: Q12H, # song 00 120 tab, 1 Refill(s), Pharmacy: [facility] ST[facility] #[id number], 170.18, cm, 09/29/21 4:04:00 MARKET REPORTER, Height, 76.864, kg, 09/29/21 4:04:00 MARKET REPORTER, Weight Digoxin 2021-0 Yes 0.125 mg = Eric oracio 0.125 MG 1-17 1 tab, PO, l Oral Tablet 20:47: Daily, # He rmann 00 30 tab, 1 Refill(s), Pharmacy: [facility] ST[facility] #[id number], 170.18, cm, 09/29/21 4:04:00 MARKET REPORTER, Height, 76.864, kg, 09/29/21 4:04:00 MARKET REPORTER, Weight diltiazem 0 Yes 60 mg = 1 Mem oria 60 mg oral 1-17 tab, PO, l tablet 20:47: Q8H, # 90 Luis n 00 tab, 1 Refill(s), Pharmacy: [facility] ST[facility] #[id number], 170.18, cm, 09/29/21 4:04:00 MARKET REPORTER, Height, 76.864, kg, 09/29/21 4:04:00 MARKET REPORTER, Weight Docusate 0 Yes 1 tab, PO, Mem oria Sodium 50 1-17 BID, PRN l MG / 20:47: [facility], 00 on, X 14 GROUP HOME 8.6 MG day, # 30 Oral Tablet tab, 0 Refill(s), Pharmacy: [facility] ST[facility] #[id number], 170.18, cm, 09/29/21 4:04:00 MARKET REPORTER, Height, 76.864, kg, 09/29/21 4:04:00 MARKET REPORTER, Weight carvedilol 2021-0 Yes 25 mg = 2 Me moria 12.5 mg 1-17 tab, PO, l oral tablet 20:47: Q12H, # song 00 120 tab, 1 Refill(s), Pharmacy: [facility] ST[facility] #[id number], 170.18, cm, 09/29/21 4:04:00 MARKET REPORTER, Height, 76.864, kg, 09/29/21 4:04:00 MARKET REPORTER, Weight Digoxin Yes 0.125 mg = Eric oracio 0.125 MG 1-17 1 tab, PO, l Oral Tablet 20:47: Daily, # He rmann 00 30 tab, 1 Refill(s), Pharmacy: [facility] ST[facility] #[id number], 170.18, cm, 09/29/21 4:04:00 MARKET REPORTER, Height, 76.864, kg, 09/29/21 4:04:00 MARKET REPORTER, Weight diltiazem Yes 60 mg = 1 Mem oria 60 mg oral 1-17 tab, PO, l tablet 20:47: Q8H, # 90 Luis n 00 tab, 1 Refill(s), [facility][id number], 170.18, cm, 09/29/21 4:04:00 MARKET REPORTER, Height, 76.864, kg, 09/29/21 4:04:00 MARKET REPORTER, Weight Docusate Yes 1 tab, PO, Mem oria Sodium 50 1-17 BID, PRN l MG / 20:47: Constipati [place] sennosides, 00 on, X 14 GROUP HOME 8.6 MG day, # 30 Oral Tablet tab, 0 Refill(s), [facility][id number], 170.18, cm, 09/29/21 4:04:00 MARKET REPORTER, Height, 76.864, kg, 09/29/21 4:04:00 MARKET REPORTER, Weight Docusate No Notes: Memoria Sodium 50 1-17 (Same as l MG / 14:18: Senokot-S) Obie sennosides, 00 Equiv. to GROUP HOME 8.6 MG [place]ett[place] Oral Tablet e. Docusate No Notes: Memoria Sodium 50 1-17 (Same as l MG / 14:18: Senokot-S) [place] sennosides, 00 Equiv. to GROUP HOME 8.6 MG Bettie-[place] Oral Tablet e. Docusate No Notes: Memoria Sodium 50 1-17 (Same as l MG / 14:18: Senokot-S) [place] sennosides, 00 Equiv. to GROUP HOME 8.6 MG Bettie-[place] Oral Tablet e. Diltiazem No Notes: Memori a 1-16 (Same as: l 23:21: Cardizem) [place] 00 Before meals Diltiazem No Notes: Memori a 1-16 (Same as: l 23:21: Cardizem) [place] 00 Before meals Diltiazem No Notes: Memori a 1-16 (Same as: l 23:21: Cardizem) [place] 00 Before meals Potassium No Notes: Memori [...] s with feeding tube less than 14 [place] (Dobhoff, J-tube etc) and pediatric and patients. Potassium No Notes: Memori a Chloride 1-16 (Same as: l 17:15: K-Dur 20) [place] 00 "Do Not Crush" Give with food and full glass of water For patients unable to swallow tablet, dissolve in one half glass of water. Allow about 2 minutes for the tablets to disintegra te. Stir before giving to prepare slurry and administer . Please exclude Patient s with feeding tube less than 14 [place] (Dobhoff, J-tube etc) and pediatric and patients. Potassium No Notes: Memori a Chloride 1-16 [...] s with feeding tube less than 14 [place] (Dobhoff, J-tube etc) and pediatric and patients. Metoprolol No Notes: Memor ia 1-16 (Same as: l 14:44: Lopressor) Push over 2 minutes Metoprolol No Notes: Memor ia 1-16 (Same as: l 14:44: Lopressor) [place] Push over 2 minutes Metoprolol No Notes: Memor ia 1-16 (Same as: l 14:44: Lopressor) [place] 00 Push over 2 minutes Trazodone No Notes: Memori a Hydrochlori 1-16 (Same As: l de 100 MG 03:00: Desyrel) Herm juan m Oral Tablet 00 Coreg No Notes: Memoria 1-16 Give with l 03:00: food. [place] 00 (Same As: Coreg) Trazodone No Notes: Memori a Hydrochlori 1-16 (Same As: l de 100 MG 03:00: Desyrel) Herm juan m Oral Tablet 00 Coreg No Notes: Memoria 1-16 Give with l 03:00: food. [place] 00 (Same As: Coreg) Trazodone No Notes: Memori a Hydrochlori 1-16 (Same As: l de 100 MG 03:00: Desyrel) Herm juan m Oral Tablet 00 Coreg No Notes: Memoria 1-16 Give with l 03:00: food. [place] 00 (Same As: Coreg) Albuterol No Notes: SEE Me moria 1-15 RT l 17:00: DOCUMENTAT [place] 00 ION (Same as: Proventil) Albuterol No Notes: SEE Me moria 1-15 RT l 17:00: DOCUMENTAT [place] 00 ION (Same as: Proventil) Albuterol No Notes: SEE Me moria 1-15 RT l 17:00: DOCUMENTAT [place] 00 ION (Same as: Proventil) Aspirin 81 No Notes: Do Me moria MG Enteric 1-15 not crush l Coated 15:00: or chew. [place] Tablet 00 (Same As: Ecotrin) Cymbalta No Notes: Memoria 1-15 (Same as: l 15:00: Cymbalta) [place] 00 (Do Not Crush) Esomeprazol No 40 mg, 1 Me moria e 1-15 cap, l 15:00: Route: PO, [place] 00 Drug form: ECCAP, Daily, Dosing Weight 77.273, kg, Start date: 09/28/21 9:00:00 MARKET REPORTER, Duration: 30 day, Stop date: 10/27/21 9:00:00 MARKET REPORTER Dulera 100 No 2 puff, Eric oracio mcg-5 1-15 Route: l mcg/inh 15:00: INHALER, Luis n inhalation 00 Drug Form: aerosol AERO, Dosing Weight 77.273, kg, BID, Start date: 09/28/21 9:00:00 MARKET REPORTER, Duration: 30 day, Stop date: 10/27/21 17:00:00 MARKET REPORTER gabapentin No Notes: Memor ia 1-15 (Same as: l 15:00: Neurontin) [place] Furosemide No Notes: Memor ia 1-15 (Same as: l 15:00: Lasix) MEDICATION WASTE Product Size: 40 mg Product Wasted: ___ mg metoprolol No Notes: Memor ia tartrate 1-15 (Same as: l 15:00: Lopressor) [place] 00 Saline No Notes: Memoria Flush 0.9% 1-15 (Same as: l 15:00: BD [place] 00 Posiflush) Eliquis No Notes: Memoria 1-15 Same as: l 15:00: Eliquis Digoxin No Notes: Memoria 0.125 MG 1-15 Take on an l Oral Tablet 15:00: Empty Maribel nn 00 Stomach (Same as: Lanoxin) Coreg No Notes: Memoria 1-15 Give with l 15:00: food. Ob[place] (Same As: Coreg) Aspirin 81 No Notes: Do Me moria MG Enteric 1-15 not crush l Coated 15:00: or chew. [place] Tablet 00 (Same As: Ecotrin) Cymbalta No Notes: Memoria 1-15 (Same as: l 15:00: Cymbalta) [place] (Do Not Crush) Esomeprazol No 40 mg, 1 Me moria e 1-15 cap, l 15:00: Route: PO, [place] 00 Drug form: ECCAP, Daily, Dosing Weight 77.273, kg, Start date: 09/28/21 9:00:00 MARKET REPORTER, Duration: 30 day, Stop date: 10/27/21 9:00:00 MARKET REPORTER Dulera 100 No 2 puff, Eric oracio mcg-5 1-15 Route: l mcg/inh 15:00: INHALER, Luis n inhalation 00 Drug Form: aerosol AERO, Dosing Weight 77.273, kg, BID, Start date: 09/28/21 9:00:00 MARKET REPORTER, Duration: 30 day, Stop date: 10/27/21 17:00:00 MARKET REPORTER gabapentin No Notes: Memor ia 1-15 (Same as: l 15:00: Neurontin) [place] Furosemide No Notes: Memor ia 1-15 (Same as: l 15:00: Lasix) MEDICATION WASTE Product Size: 40 mg Product Wasted: ___ mg metoprolol No Notes: Memor ia tartrate 1-15 (Same as: l 15:00: Lopressor) Saline No Notes: Memoria Flush 0.9% 1-15 (Same as: l 15:00: BD [place] 00 Posiflush) Eliquis No Notes: Memoria 1-15 Same as: l 15:00: Eliquis Digoxin No Notes: Memoria 0.125 MG 1-15 Take on an l Oral Tablet 15:00: Empty Maribel nn 00 Stomach (Same as: Lanoxin) Coreg No Notes: Memoria 1-15 Give with l 15:00: food. [place] (Same As: Coreg) Aspirin 81 No Notes: Do Me moria MG Enteric 1-15 not crush l Coated 15:00: or chew. [place] Tablet 00 (Same As: Ecotrin) Cymbalta No Notes: Memoria 1-15 (Same as: l 15:00: Cymbalta) [place] (Do Not Crush) Esomeprazol No 40 mg, 1 Me moria e 1-15 cap, l 15:00: Route: PO, [place] 00 Drug form: ECCAP, Daily, Dosing Weight 77.273, kg, Start date: 09/28/21 9:00:00 MARKET REPORTER, Duration: 30 day, Stop date: 10/27/21 9:00:00 MARKET REPORTER Dulera 100 No 2 puff, Eric oracio mcg-5 1-15 Route: l mcg/inh 15:00: INHALER, Luis n inhalation 00 Drug Form: aerosol AERO, Dosing Weight 77.273, kg, BID, Start date: 09/28/21 9:00:00 MARKET REPORTER, Duration: 30 day, Stop date: 10/27/21 17:00:00 MARKET REPORTER gabapentin No Notes: Memor ia 1-15 (Same as: l 15:00: Neurontin) [place] Furosemide No Notes: Memor ia 1-15 (Same as: l 15:00: Lasix) MEDICATION WASTE Product Size: 40 mg Product Wasted: ___ mg metoprolol No Notes: Memor ia tartrate 1-15 (Same as: l 15:00: Lopressor) [place] 00 Saline No Notes: Memoria Flush 0.9% 1-15 (Same as: l 15:00: BD [place] 00 Posiflush) Eliquis No Notes: Memoria 1-15 Same as: l 15:00: Eliquis Digoxin No Notes: Memoria 0.125 MG 1-15 Take on an l Oral Tablet 15:00: Empty Maribel nn Stomach (Same as: Lanoxin) Coreg No Notes: Memoria 1-15 Give with l 15:00: food. [place] 00 (Same As: Coreg) Pulmicort No Notes: Memori a Respules 1-15 (Same As: l 14:36: Pulmicort Ob[place] 00 respule). Pulmicort No Notes: Memori a Respules 1-15 (Same As: l 14:36: Pulmicort [place] 00 respule). Pulmicort No Notes: Memori a Respules 1-15 (Same As: l 14:36: Pulmicort [place] 00 respule). Protonix 2022-0 No Notes: Memoria 1-15 Tablet l 13:30: should not Obie 00 be chewed or crushed. (Same as: Protonix) Protonix No Notes: Memoria 1-15 Tablet l 13:30: should not [place] 00 be chewed or crushed. (Same as: Protonix) Protonix No Notes: Memoria 1-15 Tablet l 13:30: should not Obie 00 be chewed or crushed. (Same as: Protonix) Synthroid No 100 Memoria 1-15 microgram, l 12:30: 1 tab, Obie 00 Route: PO, Drug form: TAB, Q630AM, Dosing Weight 77.727, kg, Start date: 09/28/21 6:30:00 MARKET REPORTER, Duration: 30 day, Stop date: 10/27/21 6:30:00 MARKET REPORTER, 0 Synthroid No 100 Memoria 1-15 microgram, l 12:30: 1 tab, Obie 00 Route: PO, Drug form: TAB, Q630AM, Dosing Weight 77.727, kg, Start date: 09/28/21 6:30:00 MARKET REPORTER, Duration: 30 day, Stop date: 10/27/21 6:30:00 MARKET REPORTER, 0 Synthroid No 100 Memoria 1-15 microgram, l 12:30: 1 tab, [place] 00 Route: PO, Drug form: TAB, Q630AM, Dosing Weight 77.727, kg, Start date: 09/28/21 6:30:00 MARKET REPORTER, Duration: 30 day, Stop date: 10/27/21 6:30:00 MARKET REPORTER, 0 pneumococca No Notes: Eric oracio l capsular 1-15 (Same as: l polysacchar 09:01: Pneumovax H ermann [place] type 1 56 23) vaccine / Refrigerat pneumococca e l capsular polysacchar [place] type 10A vaccine / pneumococca l capsular polysacchar [place] type 11A vaccine / pneumococca l capsular polysacchar [place] type 12F vaccine / pneumococca l capsular polysacchar pneumococca No Notes: Eric oracio l capsular 1-15 (Same as: l polysacchar 09:01: Pneumovax H ermann [place] type 1 56 23) vaccine / Refrigerat pneumococca e l capsular polysacchar [place] type 10A vaccine / pneumococca l capsular polysacchar [place] type 11A vaccine / pneumococca l capsular polysacchar [place] type 12F vaccine / pneumococca l capsular polysacchar pneumococca No Notes: Eric oracio l capsular [...] WASTE: F/P l 05:58: - Sink; E [place] [facility] Magnesium No Notes: Memori a Sulfate 1-15 WASTE: F/P l 05:58: - Sink; E [place] [facility] Magnesium No Notes: Memori a Sulfate 1-15 WASTE: F/P l 05:58: - Sink; E [place] [facility] Potassium No Notes: Memori a Chloride 1-15 (Same as: l 05:50: K-Dur 10) [place] 00 "Do Not Crush" With food and full glass of water Potassium No Notes: Memori a Chloride 1-15 (Same as: l 05:50: K-Dur 10) [place] 00 "Do Not Crush" With food and full glass of water Potassium No Notes: Memori a Chloride 1-15 (Same as: l 05:50: K-Dur 10) [place] "Do Not Crush" With food and full glass of water Ondansetron No Notes: Eric oracio 1-15 (Same as: l 03:44: Zofran) MEDICATION WASTE Product Size: 4 mg Product Wasted: ___ mg Melatonin No Notes: Memori a 1-15 (Same as: l 03:44: Melatonin) Saline No Notes: Memoria Flush 0.9% 1-15 (Same as: l 03:44: BD [place] 00 Posiflush) Ondansetron No Notes: Eric oracio 1-15 (Same as: l 03:44: Zofran) [place] 00 MEDICATION WASTE Product Size: 4 mg Product Wasted: ___ mg Melatonin No Notes: Memori a 1-15 (Same as: l 03:44: Melatonin) [place] Saline No Notes: Memoria Flush 0.9% 1-15 (Same as: l 03:44: BD [place] 00 Posiflush) Ondansetron No Notes: Eric oracio 1-15 (Same as: l 03:44: Zofran) MEDICATION WASTE Product Size: 4 mg Product Wasted: ___ mg Melatonin No Notes: Memori a 1-15 (Same as: l 03:44: Melatonin) [place] 00 Saline No Notes: Memoria Flush 0.9% 1-15 (Same as: l 03:44: BD Posiflush) Hydralazine No Notes: Eric oracio 1-15 (Same as: l 03:40: Apresoline [place] 00 ) Push over 5 minutes Furosemide No Notes: Memor ia 1-15 (Same as: l 03:40: Lasix) [place] 00 MEDICATION WASTE Product Size: 40 mg Product Wasted: ___ mg Hydralazine No Notes: Eric oracio 1-15 (Same as: l 03:40: Apresoline [place] 00 ) Push over 5 minutes Furosemide No Notes: Memor ia 1-15 (Same as: l 03:40: Lasix) [place] 00 MEDICATION WASTE Product Size: 40 mg Product Wasted: ___ mg Hydralazine No Notes: Eric oracio 1-15 (Same as: l 03:40: Apresoline [place] 00 ) Push over 5 minutes Furosemide No Notes: Memor ia 1-15 (Same as: l 03:40: Lasix) [place] 00 MEDICATION WASTE Product Size: 40 mg Product Wasted: ___ mg Nitroglycer 2022-0 No Notes: 1 Me moria in 0.02 1-15 gram is l MG/MG 03:12: approximat Luis n Topical 00 alvarez 1 inch Ointment of nitroglyce rin ointment (20 mg NTG per gram) (Same as:Nitro-B id) Potassium 0 No Notes: Memori a Chloride 1-15 Infuse at l 03:12: a rate of [place] 00 10 mEq/hr. (Same as: KCL) Nitroglycer 0 No Notes: 1 Me moria in 0.02 1-15 gram is l MG/MG 03:12: approximat Luis n Topical 00 alvarez 1 inch Ointment of nitroglyce rin ointment (20 mg NTG per gram) (Same as:Nitro-B id) Potassium No Notes: Memori a Chloride 1-15 Infuse at l 03:12: a rate of [place] 00 10 mEq/hr. (Same as: KCL) Nitroglycer No Notes: 1 Me moria in 0.02 1-15 gram is l MG/MG 03:12: approximat Luis n Topical 00 alvarez 1 inch Ointment of nitroglyce rin ointment (20 mg NTG per gram) (Same as:Nitro-B id) Potassium 0 No Notes: Memori a Chloride 1-15 Infuse at l 03:12: a rate of [place] 00 10 mEq/hr. (Same as: KCL) Lasix 0 No Notes: Memoria 09-28 (Same as: l 03:10: Lasix) [place] 00 MEDICATION WASTE Product Size: 40 mg Product Wasted: ___ mg Lasix 2021-0 No Notes: Memoria 15 (Same as: l 03:10: Lasix) [place] 00 MEDICATION WASTE Product Size: 40 mg Product Wasted: ___ mg Lasix 2021-0 No Notes: Memoria -15 (Same as: l 03:10: Lasix) [place] 00 MEDICATION WASTE Product Size: 40 mg Product Wasted: ___ mg Aspirin 2021-0 No 325 mg, Memoria 09-28 Route: PO, l 02:51: ONCE, [place] 00 Dosing Weight 77.727, kg, Start date: 09/27/21 20:51:00 [employer], Stop date: 09/27/21 20:51:00 [employer] RE[employer] Aspirin 2021-0 No 325 mg, Memoria 1-15 Route: PO, l 02:51: ONCE, Dosing Weight 77.727, kg, Start date: 09/27/21 20:51:00 MARK[employer] REPORTER, Stop date: 09/27/21 20:51:00 [employer] RE[employer] Aspirin 2021-0 No 325 mg, Memoria 1-15 Route: PO, l 02:51: ONCE, Dosing Weight 77.727, kg, Start date: 09/27/21 20:51:00 MARKET REPORTER, Stop date: 09/27/21 20:51:00 MARKET REPORTER Digoxin 2021-0 No Notes: Memoria 1-15 (Same as: l 02:32: Lanoxin) Digoxin 2021-0 No Notes: Memoria 1-15 (Same as: l 02:32: Lanoxin) Digoxin 2021-0 No Notes: Memoria 1-15 (Same as: l 02:32: Lanoxin) Diltiazem 2021-0 No 60 mg, Memori a 1-15 Route: PO, l 02:27: ONCE, Dosing Weight 77.727, kg, Start date: 09/27/21 20:27:00 MARKET REPORTER, Stop date: 09/27/21 20:27:00 MARKET REPORTER Diltiazem 2021-0 No 60 mg, Memori a 1-15 Route: PO, l 02:27: ONCE, Dosing Weight 77.727, kg, Start date: 09/27/21 20:27:00 MARKET REPORTER, Stop date: 09/27/21 20:27:00 MARKET REPORTER Diltiazem 2021-0 No 60 mg, Memori a 1-15 Route: PO, l 02:27: ONCE, Dosing Weight 77.727, kg, Start date: 09/27/21 20:27:00 MARKET REPORTER, Stop date: 09/27/21 20:27:00 MARKET REPORTER Diltiazem 2021-0 No Notes: Memori a 1-15 (Same as: l 01:22: Cardizem) Diltiazem 2022-0 No Notes: Memori a 1-15 (Same as: l 01:22: Cardizem) Diltiazem No Notes: Memori a 1-15 (Same as: l 01:22: Cardizem) [place] 00 Diltiazem No Notes: Memori a 1-14 (Same as: l 22:46: Cardizem) Diltiazem No Notes: Memori a 1-14 (Same as: l 22:46: Cardizem) Diltiazem No Notes: Memori a 1-14 (Same as: l 22:46: Cardizem) Saline No Notes: Memoria Flush 0.9% 1-14 (Same as: l 22:45: BD [place] Posiflush) Saline No Notes: Memoria Flush 0.9% 1-14 (Same as: l 22:45: BD [place] Posiflush) Saline No Notes: Memoria Flush 0.9% 1-14 (Same as: l 22:45: BD [place] Posiflush) metoprolol No Notes: Memor ia tartrate 1-14 (Same as: l 22:44: Lopressor) metoprolol No Notes: Memor ia tartrate 1-14 (Same as: l 22:44: Lopressor) metoprolol No Notes: Memor ia tartrate 1-14 (Same as: l 22:44: Lopressor) Vancomycin No 2000 mg: Me moria 1-14 infuse l 22:00: over 2.5 [place] 00 hours For adult patients only: Round to nearest 250 mg per Medical Staff approval MEDICATION WASTE Product Size: 1000 mg Product Wasted: ___ mg Ancef + No Notes: Memoria sterile 1-14 (Same As: l water 20 mL 22:00: Ancef, Herm juan m Kefzol) MEDICATION WASTE Product Size: 1000 mg Product Wasted: ___ mg Vancomycin No 2001 mg: Me moria 1-14 infuse l 22:00: over 2.5 [place] 00 hours For adult patients only: Round to nearest 250 mg per Medical Staff approval MEDICATION WASTE Product Size: 1000 mg Product Wasted: ___ mg Ancef + No Notes: Memoria sterile 14 (Same As: l water 20 mL 22:00: Ancef, Herm juan m 00 Kefzol) MEDICATION WASTE Product Size: 1000 mg Product Wasted: ___ mg Vancomycin No 2000 mg: Me moria 1-14 infuse l 22:00: over 2.5 [place] 00 hours For adult patients only: Round to nearest 250 mg per Medical Staff approval MEDICATION WASTE Product Size: 1000 mg Product Wasted: ___ mg Ancef + No Notes: Memoria sterile 14 (Same As: l water 20 mL 22:00: Ancef, Herm juan m 00 Kefzol) MEDICATION WASTE Product Size: 1000 mg Product Wasted: ___ mg Dulera 100 0 Yes 2 puff, Eric oracio mcg-5 -14 INHALER, l mcg/inh 21:25: BID, # 1 Luis n inhalation 00 ea, 3 aerosol Refill(s) Dulera 100 0 Yes 2 puff, Eric oracio mcg-5 -14 INHALER, l mcg/inh 21:25: BID, # 1 Luis n inhalation 00 ea, 3 aerosol Refill(s) Dulera 100 Yes 2 puff, Eric oracio mcg-5 -14 INHALER, l mcg/inh 21:25: BID, # 1 Luis n inhalation 00 ea, 3 aerosol Refill(s) Furosemide Yes 40 mg, PO, M emoria 1-14 Daily, 0 l 21:24: Refill(s) Potassium Yes 10 mEq, Memor ia Chloride 1-14 PO, Daily, l 21:24: 0 [place] 00 Refill(s) gabapentin Yes 100 mg, Eric oracio 1-14 PO, BID, 0 l 21:24: Refill(s) Furosemide Yes 40 mg, PO, M emoria 1-14 Daily, 0 l 21:24: Refill(s) Potassium Yes 10 mEq, Memor ia Chloride 1-14 PO, Daily, l 21:24: 0 Refill(s) gabapentin Yes 100 mg, Eric oracio 1-14 PO, BID, 0 l 21:24: Refill(s) Furosemide Yes 40 mg, PO, M [...] ia 1-14 Q12H, 0 l 21:23: Refill(s) metoprolol No 100 mg, Eric oracio tartrate 1-14 PO, BID, 0 l 21:23: Refill(s) Eliquis Yes 5 mg, PO, Memor ia 1-14 Q12H, 0 l 21:23: Refill(s) metoprolol No 100 mg, Eric oracio tartrate 1-14 PO, BID, 0 l 21:23: Refill(s) Eliquis Yes 5 mg, PO, Memor ia 1-14 Q12H, 0 l 21:23: Refill(s) Aspirin 81 Yes 81 mg = 1 Me moria MG Enteric 1-14 tab, PO, l Coated 21:22: Daily, # [place] Tablet 00 90 tab, 3 Refill(s) Aspirin 81 Yes 81 mg = 1 Me moria MG Enteric 1-14 tab, PO, l Coated 21:22: Daily, # [place] Tablet 00 90 tab, 3 Refill(s) Aspirin 81 Yes 81 mg = 1 Me moria MG Enteric 1-14 tab, PO, l Coated 21:22: Daily, # [place] Tablet 00 90 tab, 3 Refill(s) Apixaban 2020-09 Yes Take by [facility] (ELIQUIS 2-06 mouth. Health PO) 12:07: 12 ASPIRIN 2020-09 Yes Take by [facility] ADULT PO 2-06 mouth. Health 12:07: 12 Apixaban 2020-09 Yes Take by MI (ELIQUIS 2-06 mouth. Health PO) 12:07: 12 ASPIRIN 2020-09 Yes Take by MI ADULT PO 2-06 mouth. Health 12:07: 12 Apixaban 2020-09 Yes Take by MI (ELIQUIS 2-06 mouth. Health PO) 12:07: 12 ASPIRIN 2020-09 Yes Take by MI ADULT PO 2-06 mouth. Health 12:07: 12 Apixaban 2020-09 Yes Take by MI (ELIQUIS 2-06 mouth. Health PO) 12:07: 12 ASPIRIN 2020-09 Yes Take by MI ADULT PO 2-06 mouth. Health 12:07: 12 Apixaban 2020-09 Yes Take by MI (ELIQUIS 2-06 mouth. Health PO) 12:07: 12 ASPIRIN 2020-09 Yes Take by MI ADULT PO 2-06 mouth. Health 12:07: 12 traMADol 2020-09- No [id number] 50mg Take 1 U T (Ultram) 50 09-15-08 tablet (50 H ealth MG tablet 00:00: 05:59 mg total) 00 :00 by mouth every 8 (eight) hours if needed for severe pain for up to 5 days. clopidogrel 2020-09 Yes 75 mg = 1 M emoria 75 MG Oral 0-19 tab, PO, l Tablet 19:20: Daily, # [place] [Plavix] 00 90 tab, 3 Refill(s) clopidogrel 2020-09 Yes 75 mg = 1 M emoria 75 MG Oral 0-19 tab, PO, l Tablet 19:20: Daily, # [place] [Plavix] 00 90 tab, 3 Refill(s) clopidogrel 2020-09 Yes 75 mg = 1 M emoria 75 MG Oral 0-19 tab, PO, l Tablet 19:20: Daily, # [place] [Plavix] 00 90 tab, 3 Refill(s) heparin 2020-09 No Route: IV, Eric oracio (ANES) 0-19 Drug form: l 18:15: INJ, ONCE, Stop date: 07/02/21 13:15:00 CDT heparin 2020-09 No Route: IV, Eric oracio (ANES) 0-19 Drug form: l 18:15: INJ, ONCE, Stop date: 07/02/21 13:15:00 CDT heparin 2020-09 No Route: IV, Eric oracio (ANES) 0-19 Drug form: l 18:15: INJ, ONCE, Stop date: 07/02/21 13:15:00 CDT lidocaine 2020-09 No Route: IV, Me moria (ANES) 0-19 Drug form: l 18:04: INJ, ONCE, Stop date: 07/02/21 13:04:00 CDT fentaNYL 2020-09 [...] INJ, ONCE, Stop date: 07/02/21 13:04:00 CDT lidocaine 2020-09 No Route: IV, Me moria (ANES) 0-19 Drug form: l 18:04: INJ, ONCE, Stop date: 07/02/21 13:04:00 CDT fentaNYL 2020-09 [...] INJ, ONCE, Stop date: 07/02/21 13:04:00 CDT lidocaine 2020-09 No Route: IV, Me moria (ANES) 0-19 Drug form: l 18:04: INJ, ONCE, Stop date: 07/02/21 13:04:00 CDT fentaNYL 2020-09 [...] (ANES) 0-19 Drug form: l 17:54: SOLN, [place] 00 ONCE, Stop date: 07/02/21 12:54:00 CDT ceFAZolin 2020-09 No Route: IV, Me moria (ANES) 0-19 Drug form: l 17:54: INJ, ONCE, Stop date: 07/02/21 12:54:00 CDT midazolam 2020-09 No Route: IV, Me moria (ANES) 0-19 Drug form: l 17:54: SOLN, [place] ONCE, Stop date: 07/02/21 12:54:00 CDT ceFAZolin 2020-09 No Route: IV, Me moria (ANES) 0-19 Drug form: l 17:54: INJ, ONCE, Stop date: 07/02/21 12:54:00 CDT midazolam 2020-09 No Route: IV, moria (ANES) 0-19 Drug form: l 17:54: SOLN, ONCE, Stop date: 07/02/21 12:54:00 CDT vancomycin 2020-09 No Route: IV, [place] emoria (ANES) 1000 0-19 Drug form: l mg 17:20: INJ, Start date: 07/02/21 12:20:00 CDT, Stop date: 07/02/21 13:20:00 CDT vancomycin 2020-09 No Route: IV, [place] emoria (ANES) 1000 0-19 Drug form: l mg 17:20: INJ, Start date: 07/02/21 12:20:00 CDT, Stop date: 07/02/21 13:20:00 CDT vancomycin 2020-09 No Route: IV, [place] emoria (ANES) 1000 0-19 Drug form: l mg 17:20: INJ, Start date: 07/02/21 12:20:00 CDT, Stop date: 07/02/21 13:20:00 CDT Lactated 2020-09 No Route: IV, Mem oria Ringers 0-19 Total l Injection 17:12: Volume: Maribel nn IV (ANES) 00 1,000, 1000 mL Start date: 07/02/21 12:12:00 CDT, Stop date: 07/02/21 13:12:00 CDT Lactated 2020-09 No Route: IV, Mem oria Ringers 0-19 Total l Injection 17:12: Volume: Maribel nn IV (ANES) 00 1,000, 1000 mL Start date: 07/02/21 12:12:00 CDT, Stop date: 07/02/21 13:12:00 CDT Lactated 2020-09 No Route: IV, Mem [...] Oral Tablet 00 30 tab, 0 Refill(s) duloxetine 2020-09 Yes 60 mg = 1 Me moria 60 MG 0-19 cap, PO, l Enteric 15:42: Daily, # Luis n Coated 00 30 cap, 0 Capsule Refill(s) [Cymbalta] Trazodone 2020-09 Yes 100 mg = 1 Me moria Hydrochlori 0-19 tab, PO, l de 100 MG 15:42: Bedtime, # Celestino rmann Oral Tablet 00 30 tab, 0 Refill(s) duloxetine 2020-09 Yes 60 mg = 1 [...] # [place] 00 90 tab, 0 Refill(s) tamsulosin 2020-09 Yes 0.4 [...] tab, PO, l tablet 15:41: Daily, # [place] 00 90 tab, 0 Refill(s) tamsulosin 2020-09 Yes 0.4 [...] PO, l oral tablet 15:40: Bedtime, 0 [place] 00 Refill(s) metoprolol 2020-09 Yes 50 mg = 1 Me moria tartrate 50 0-19 tab, PO, l mg oral 15:40: BID, # 180 Herm juan m tablet 00 tab, 0 Refill(s) ezetimibe 2020-09 Yes 10 mg = 1 Mem oria 10 mg oral 0-19 tab, PO, l tablet 15:40: Daily, # [place] 00 30 tab, 0 Refill(s) cyclobenzap 2020-09 Yes 10 [...] tab, PO, l tablet 15:40: Daily, # [place] 00 30 tab, 0 Refill(s) cyclobenzap 2020-09 Yes 10 mg = 1 M emoria rine 10 mg 0-19 tab, PO, l oral tablet 15:40: Bedtime, 0 [place] 00 Refill(s) metoprolol 2020-09 Yes 50 mg = 1 Me moria tartrate 50 0-19 tab, PO, l mg oral 15:40: BID, # 180 Herm juan m tablet 00 tab, 0 Refill(s) ezetimibe 2020-09 Yes 10 mg = 1 Mem oria 10 mg oral 0-19 tab, PO, l tablet 15:40: Daily, # [place] 00 30 tab, 0 Refill(s) Esomeprazol 2020-09 Yes 40 mg = 1 M emoria e 40 MG 0-19 cap, PO, l Enteric 15:39: Daily, # Luis n Coated 00 30 cap, 0 Capsule Refill(s) Levothroid 2020-09 Yes 100 Memoria 100 mcg 0-19 microgram l (0.1 mg) 15:39: = 1 tab, Maribel nn oral tablet 00 PO, Daily, # 30 tab, 0 Refill(s) Esomeprazol 2020-09 Yes 40 mg = 1 M emoria e 40 MG 0-19 cap, PO, l Enteric 15:39: Daily, # Luis n Coated 00 30 cap, 0 Capsule Refill(s) Levothroid 2020-09 Yes 100 Memoria 100 mcg 0-19 microgram l (0.1 mg) 15:39: = 1 tab, Maribel nn oral tablet 00 PO, Daily, # 30 tab, 0 Refill(s) Esomeprazol 2020-09 Yes [...] anxiety, stress, # 20 tab, 0 Refill(s) Alprazolam 2020-09 Yes 0.25 mg = Me moria 0.25 MG 0-19 1 tab, PO, l Oral Tablet 15:38: BID, PRN He rmann 00 anxiety, stress, # 20 tab, 0 Refill(s) Alprazolam 2020-09 Yes 0.25 [...] Stop date: Solution 07/03/21 10:18:00 CDT, 0 Calcium 2020-09 No 1,000 mL, Memor ia Chloride 0-19 Rate: 75 l 0.0014 15:19: ml/hr, [place] MEQ/ML / 00 Infuse Potassium over: 13.3 Chloride hr, Route: 0.004 IV, Total MEQ/ML / Volume: Sodium 1,000, Chloride Start 0.103 date: MEQ/ML / 07/02/21 Sodium 10:19:00 Lactate CDT, 0.028 Duration: MEQ/ML 1 day, Injectable Stop date: Solution 07/03/21 10:18:00 CDT, 0 Calcium 2020-09 No 1,000 mL, Memor ia Chloride 0-19 Rate: 75 l 0.0014 15:19: ml/hr, [place] MEQ/ML / 00 Infuse Potassium over: 13.3 [...] moria 0-18 infuse l 21:00: over 2.5 [place] 00 hours For adult patients only: Round to nearest 250 mg per Medical Staff approval MEDICATION WASTE Product Size: 1000 mg Product Wasted: ___ mg Ancef + 2020-09 No Notes: Memoria sterile 0-18 (Same As: l water 20 mL 21:00: Ancef, Herm juan m 00 Kefzol) MEDICATION WASTE Product Size: 1000 mg Product Wasted: ___ mg Vancomycin 2020-09 No 2000 mg: Me moria 0-18 infuse l 21:00: over 2.5 [place] 00 hours For adult patients only: Round to nearest 250 mg per Medical Staff approval MEDICATION WASTE Product Size: 1000 mg Product Wasted: ___ mg Ancef + 2020-09 No Notes: Memoria sterile 0-18 (Same As: l water 20 mL 21:00: Ancef, Herm juan m 00 Kefzol) MEDICATION WASTE Product Size: 1000 mg Product Wasted: ___ mg Vancomycin 2020-09 No 2000 mg: Me moria 0-18 infuse l 21:00: over 2.5 [place] 00 hours For adult patients only: Round to nearest 250 mg per Medical Staff approval MEDICATION WASTE Product Size: 1000 mg Product Wasted: ___ mg traMADol 2020-09 No [id number] 50mg Q6H Take 1 U T (Ultram) [...] Observation Time Observation Value Comments Source Body weight 2022-07-09 14:00:00 73.936 kg [facility] BMI 2022-07-09 14:00:00 25.53 kg/m2 [facility] Body height 2022-07-09 14:00:00 170.2 cm [facility] Systolic (mm Hg) 2022-05-23 19:00:00 [facility] juan jose [place] Diastolic (mm Hg) 2022-05-23 19:00:00 [facility] [place] Heart Rate 2022-05-23 18:20:00 [facility] Respitory Rate 2022-05-23 18:20:00 [facility] al [place] Height 2022-05-23 18:20:00 167.64 cm [facility] [place] Weight 2022-05-23 18:20:00 [facility] [place] BMI Calculated 2022-05-23 18:20:00 Memori al [place] Systolic (mm Hg) 2022-04-10 13:18:00 Eric rial [place] Diastolic (mm Hg) 2022-04-10 13:18:00 Mem orial [place] Heart Rate 2022-04-10 13:18:00 [facility] [place] Respitory Rate 2022-04-10 13:18:00 Memori al [place] Height 2022-04-10 13:18:00 165.1 cm [facility] [place] Weight 2022-04-10 13:18:00 [facility] [place] BMI Calculated 2022-04-10 13:18:00 Memori al [place] Systolic (mm Hg) 2022-03-10 16:31:00 Eric rial [place] Diastolic (mm Hg) 2022-03-10 16:31:00 Mem orial [place] Heart Rate 2022-03-10 16:31:00 [facility] [place] Respitory Rate 2022-03-10 16:31:00 Memori al [place] Height 2022-03-10 16:31:00 170.18 cm [facility] [place] Weight 2022-03-10 16:31:00 [facility] [place] BMI Calculated 2022-03-10 16:31:00 Memori al [place] Temperature Oral (F) 2021-11-11 17:48:00 97.9 F [facility] [place] Heart Rate 2021-11-11 17:48:00 [facility] [place] Respitory Rate 2021-11-11 17:48:00 Memori al [place] Systolic (mm Hg) 2021-11-11 17:48:00 Eric rial [place] Diastolic (mm Hg) 2021-11-11 17:48:00 Mem orial [place] Respitory Rate 2021-11-11 14:13:00 Memori al [place] Systolic (mm Hg) 2021-11-11 14:13:00 Eric rial [place] Diastolic (mm Hg) 2021-11-11 14:13:00 Mem orial [place] Temperature Oral (F) 2021-11-11 14:13:00 98.4 F [facility] [place] Respitory Rate 2021-11-11 13:45:00 Memori al [place] Temperature Oral (F) 2021-11-11 09:08:00 98.2 F [facility] [place] Heart Rate 2021-11-11 09:08:00 [facility] [place] Respitory Rate 2021-11-11 09:08:00 Memori al [place] Systolic (mm Hg) 2021-11-11 09:08:00 Eric rial [place] Diastolic (mm Hg) 2021-11-11 09:08:00 Mem orial [place] Systolic (mm Hg) 2021-11-11 05:21:00 Eric rial [place] Diastolic (mm Hg) 2021-11-11 05:21:00 Mem orial [place] Heart Rate 2021-11-11 05:21:00 [facility] [place] Temperature Oral (F) 2021-11-11 05:21:00 98.3 F [facility] [place] Respitory Rate 2021-11-11 05:21:00 Memori al [place] Respitory Rate 2021-11-11 02:00:00 Memori al [place] Heart Rate 2021-11-11 01:41:18 [facility] [place] Systolic (mm Hg) 2021-11-11 01:41:07 Eric rial [place] Diastolic (mm Hg) 2021-11-11 01:41:07 Mem orial [place] Temperature Oral (F) 2021-11-11 01:40:40 98.8 F [facility] [place] Height 2021-11-08 10:09:00 170.18 cm [facility] [place] Height 2021-11-08 06:40:00 170.18 cm [facility] [place] Weight 2021-11-08 06:40:00 [facility] [place] BMI Calculated 2021-11-08 06:40:00 Memori al [place] Heart Rate 2021-11-04 15:51:00 [facility] [place] Systolic (mm Hg) 2021-11-04 15:51:00 Eric rial [place] Diastolic (mm Hg) 2021-11-04 15:51:00 Mem orial [place] Height 2021-11-04 15:51:00 170.18 cm [facility] [place] Weight 2021-11-04 15:51:00 [facility] [place] BMI Calculated 2021-11-04 15:51:00 Memori al [place] Heart Rate 2021-10-22 13:43:37 [facility] [place] Systolic (mm Hg) 2021-10-22 13:43:33 Eric rial [place] Diastolic (mm Hg) 2021-10-22 13:43:33 Mem orial [place] Heart Rate 2021-10-22 13:43:33 [facility] [place] Temperature Oral (F) 2021-10-22 13:42:37 98.1 F [facility] [place] Respitory Rate 2021-10-22 12:54:00 Memori al [place] Heart Rate 2021-10-22 05:29:53 [facility] [place] Systolic (mm Hg) 2021-10-22 05:29:29 Eric rial [place] Diastolic (mm Hg) 2021-10-22 05:29:29 Mem orial [place] Temperature Oral (F) 2021-10-22 05:29:23 98.3 F [facility] [place] Systolic (mm Hg) 2021-10-22 03:16:00 Eric rial [place] Diastolic (mm Hg) 2021-10-22 03:16:00 Mem orial [place] Respitory Rate 2021-10-22 01:15:00 Memori al [place] Temperature Oral (F) 2021-10-21 21:49:32 97.4 F [facility] [place] Respitory Rate 2021-10-21 14:10:00 Memori al [place] Temperature Oral (F) 2021-10-21 05:14:00 98.6 F [facility] [place] Heart Rate 2021-10-21 05:14:00 [facility] [place] Respitory Rate 2021-10-21 05:14:00 Memori al [place] Systolic (mm Hg) 2021-10-21 05:14:00 Eric rial [place] Diastolic (mm Hg) 2021-10-21 05:14:00 Mem orial [place] Systolic (mm Hg) 2021-10-21 04:17:00 Eric rial [place] Diastolic (mm Hg) 2021-10-21 04:17:00 Mem orial [place] Heart Rate 2021-10-21 04:17:00 [facility] [place] Respitory Rate 2021-10-21 01:49:00 Memori al [place] Temperature Oral (F) 2021-10-20 21:41:00 98.7 F [facility] [place] Heart Rate 2021-10-20 21:41:00 [facility] [place] Systolic (mm Hg) 2021-10-20 21:41:00 Eric rial [place] Diastolic (mm Hg) 2021-10-20 21:41:00 Mem orial [place] Respitory Rate 2021-10-20 13:48:00 Memori al [place] Temperature Oral (F) 2021-10-20 13:27:46 98.4 F [facility] [place] Heart Rate 2021-10-14 05:25:01 [facility] [place] Systolic (mm Hg) 2021-10-14 05:24:53 Eric rial [place] Diastolic (mm Hg) 2021-10-14 05:24:53 Mem orial [place] Heart Rate 2021-10-14 05:24:53 [facility] [place] Temperature Oral (F) 2021-10-14 05:24:34 100 F [facility] [place] Temperature Oral (F) 2021-10-14 04:22:00 98.6 F [facility] [place] Respitory Rate 2021-10-14 01:00:00 Memori al [place] Heart Rate 2021-10-13 22:10:06 [facility] [place] Respitory Rate 2021-10-13 22:10:06 Memori al [place] Systolic (mm Hg) 2021-10-13 22:09:57 Eric rial [place] Diastolic (mm Hg) 2021-10-13 22:09:57 Mem orial [place] Temperature Oral (F) 2021-10-13 22:09:47 100.4 F [facility] [place] Systolic (mm Hg) 2021-10-13 21:18:37 Eric rial [place] Diastolic (mm Hg) 2021-10-13 21:18:37 Mem orial [place] Respitory Rate 2021-10-13 13:33:00 Memori al [place] Height 2021-10-12 11:21:00 170.1 cm [facility] [place] Height 2021-10-11 23:51:00 167.64 cm [facility] [place] Weight 2021-10-11 23:51:00 [facility] [place] BMI Calculated 2021-10-11 23:51:00 Memori al [place] Respitory Rate 2021-10-03 16:20:00 Memori al [place] Systolic (mm Hg) 2021-10-03 16:20:00 Eric rial [place] Diastolic (mm Hg) 2021-10-03 16:20:00 Mem orial [place] Heart Rate 2021-09-30 21:26:42 [facility] [place] Systolic (mm Hg) 2021-09-30 21:26:10 Eric rial [place] Diastolic (mm Hg) 2021-09-30 21:26:10 Mem orial [place] Heart Rate 2021-09-30 21:26:10 [facility] [place] Temperature Oral (F) 2021-09-30 21:24:46 98 F [facility] [place] Respitory Rate 2021-09-30 14:01:00 Memori al [place] Heart Rate 2021-09-30 13:52:01 [facility] [place] Systolic (mm Hg) 2021-09-30 13:51:46 Eric rial [place] Diastolic (mm Hg) 2021-09-30 13:51:46 Mem orial [place] Temperature Oral (F) 2021-09-30 13:50:49 98 F [facility] [place] Systolic (mm Hg) 2021-09-30 06:36:00 Eric rial [place] Diastolic (mm Hg) 2021-09-30 06:36:00 Mem orial [place] Heart Rate 2021-09-30 06:36:00 [facility] [place] Heart Rate 2021-09-30 05:04:05 [facility] [place] Systolic (mm Hg) 2021-09-30 05:03:59 Eric rial [place] Diastolic (mm Hg) 2021-09-30 05:03:59 Mem orial [place] Heart Rate 2021-09-30 05:03:59 [facility] [place] Temperature Oral (F) 2021-09-30 05:03:36 97.1 F [facility] [place] Systolic (mm Hg) 2021-09-30 02:40:00 Eric rial [place] Diastolic (mm Hg) 2021-09-30 02:40:00 Mem orial [place] Respitory Rate 2021-09-30 02:18:00 Memori al [place] Temperature Oral (F) 2021-09-29 22:44:45 97.7 F [facility] [place] Respitory Rate 2021-09-29 14:13:00 Memori al [place] Height 2021-09-29 10:04:00 170.18 cm [facility] [place] Weight 2021-09-29 10:04:00 [facility] [place] BMI Calculated 2021-09-29 10:04:00 Memori al [place] Respitory Rate 2021-09-29 00:52:00 Memori al [place] Temperature Oral (F) 2021-09-28 13:16:08 97.4 F [facility] [place] Height 2021-09-28 08:50:00 170.18 cm [facility] [place] Weight 2021-09-28 08:50:00 [facility] [place] BMI Calculated 2021-09-28 08:50:00 Memori al [place] BMI Calculated 2021-09-27 22:45:00 Memori al [place] Height 2021-09-27 22:19:00 170.18 cm [facility] [place] Weight 2021-09-27 22:19:00 [facility] [place] Heart Rate 2021-09-27 22:10:00 [facility] [place] Respitory Rate 2021-09-27 22:10:00 Memori al [place] Systolic (mm Hg) 2021-09-27 22:10:00 Eric rial [place] Diastolic (mm Hg) 2021-09-27 22:10:00 Mem orial [place] Height 2021-09-27 21:44:00 170.18 cm [facility] [place] Weight 2021-09-27 21:44:00 [facility] [place] BMI Calculated 2021-09-27 21:44:00 Memori al [place] Respitory Rate 2021-07-02 22:00:00 Memori al [place] Systolic (mm Hg) 2021-07-02 22:00:00 Eric rial [place] Diastolic (mm Hg) 2021-07-02 22:00:00 Mem orial [place] Respitory Rate 2021-07-02 21:30:00 Memori al [place] Systolic (mm Hg) 2021-07-02 21:30:00 Eric rial [place] Diastolic (mm Hg) 2021-07-02 21:30:00 Mem orial [place] Respitory Rate 2021-07-02 21:00:00 Memori al [place] Systolic (mm Hg) 2021-07-02 21:00:00 Eric rial [place] Diastolic (mm Hg) 2021-07-02 21:00:00 Mem orial [place] Heart Rate 2021-07-02 19:08:00 [facility] [place] Heart Rate 2021-07-02 16:17:00 [facility] [place] Height 2021-07-02 15:19:00 170.18 cm [facility] [place] Weight 2021-07-02 15:19:00 [facility] [place] BMI Calculated 2021-07-02 15:19:00 Verna soto [place] Procedures Procedure Date / Time Performing Clinician Source Performed CT ANGIOGRAM ABDOMINAL 2022-07-09 15:35:12 Richie [facility] AORTA AND BILATERAL ILIOFEMORAL RUNOFF W WO CONTRAST POC CREATININE 2022-07-09 14:13:00 [facility] ESTIMATED GFR 2022-07-09 14:13:00 [facility] [id number] 2021-11-20 00:00:00 [facility] Aortofemoral to popliteal Verna soto [place] vascular bypass Coronary artery [facility] [place] closure<sup>1</sup> Placement of [facility] [place] stent<sup>1</sup> Neck procedure [facility] [place] Hemorrhoidectomy [facility] n Hyste[facility] [facility] Planned Activity Planned Date Details Comments Source Future Scheduled 2023-03-04 COVID-19 VACCINE (#1) [facility] Test 06:53:51 [code = COVID-19 VACCINE (#1)] Future Scheduled 2023-03-04 Hepatitis C screening [facility] Test 06:53:51 (procedure) [code = [id number]] Future Scheduled 2023-03-04 SHINGLES VACCINES (1 [facility] Test 06:53:51 of 2) [code = SHINGLES VACCINES (1 of 2)] Future Scheduled 2023-03-04 65+ [facility]INE (2 - PCV) [code = 65+ PNEUMOCOCCAL VACCINE (2 - PCV)] Future Scheduled 2023-03-04 INFLUENZA VACCINE Method [facility] Test 06:53:51 [code = INFLUENZA VACCINE] Future Scheduled 2023-02-23 65+ [facility] VACCINE (2 - PCV) [code = 65+ PNEUMOCOCCAL VACCINE (2 - PCV)] Future Scheduled 2023-02-23 [facility] 07:20:59 [code = INFLUENZA VACCINE] Future Scheduled 2023-02-23 COVID-19 VACCINE (#1) [facility] Test 07:20:59 [code = COVID-19 VACCINE (#1)] Future Scheduled 2023-02-23 [facility] C screening [facility] Test 07:20:59 (procedure) [code = [id number]] Future Scheduled 2023-02-23 SHINGLES VACCINES (1 Met [facility] Test 07:20:59 of 2) [code = SHINGLES VACCINES (1 of 2)] Future Scheduled 2023-01-22 COVID-19 VACCINE (#1) [facility] Test 16:29:02 [code = COVID-19 VACCINE (#1)] Future Scheduled 2023-01-22 [facility] C [facility] Test 16:29:02 (procedure) [code = [id number]] Future Scheduled 2023-01-22 SHINGLES VACCINES (1 Met [facility] Test 16:29:02 of 2) [code = SHINGLES VACCINES (1 of 2)] Future Scheduled 2023-01-22 65+ [facility] 16:29:02 VACCINE (2 - PCV) [code = 65+ PNEUMOCOCCAL VACCINE (2 - PCV)] Future Scheduled 2023-01-22 IN[facility]UENZA VACCINE [facility] Test 16:29:02 [code = INFLUENZA VACCINE] Future Scheduled 2022-11-19 COVID-19 VACCINE (#1) [facility] Test 07:00:50 [code = COVID-19 VACCINE (#1)] Future Scheduled 2022-11-19 [facility] C [facility] Test 07:00:50 (procedure) [code = [id number]] Future Scheduled 2022-11-19 [facility]INES ([facility] 07:00:50 of 2) [code = SHINGLES VACCINES (1 of 2)] Future Scheduled 2022-11-19 [facility]ZA VACCINE [facility] 07:00:50 [code = INFLUENZA VACCINE] Future Scheduled 2022-11-19 65+ [facility]AL [facility] 07:00:50 VACCINE (2 - PCV) [code = 65+ PNEUMOCOCCAL VACCINE (2 - PCV)] Future Scheduled 2022-11-19 COVID-19 VACCINE (#1) [facility] 07:00:50 [code = COVID-19 VACCINE (#1)] Future Scheduled 2022-11-19 [facility]atitis C [facility] 07:00:50 (procedure) [code = 193095661] Future Scheduled 2022-11-19 SHINGLES VACCINES (1 [facility] Test 07:00:50 of 2) [code = SHINGLES VACCINES (1 of 2)] Future Scheduled 2022-11-19 [facility]UENZA VACCINE [facility] 07:00:50 [code = INFLUENZA VACCINE] Future Scheduled 2022-11-19 65+ [facility]CCAL [facility] 07:00:50 VACCINE (2 - PCV) [code = 65+ PNEUMOCOCCAL VACCINE (2 - PCV)] Future Scheduled 2022-10-09 COVID-19 VACCINE (#1) [facility] 11:17:54 [code = COVID-19 VACCINE (#1)] Future Scheduled 2022-10-09 [facility] 11:17:54 (procedure) [code = 197864967] Future Scheduled 2022-10-09 SHINGLES VACCINES (1 [facility] Test 11:17:54 of 2) [code [...] (#1)] Future Scheduled 2022-09-28 [facility] 10:31:23 (procedure) [code = 000908320] Future Scheduled 2022-09-28 SHINGLES VACCINES (1 [facility] Test 10:31:23 of 2) [code [...] (#1)] Future Scheduled 2022-09-28 [facility] screening [facility] Test 10:31:23 (procedure) [code = 013211111] Future Scheduled 2022-09-28 SHINGLES VACCINES (1 [facility] Test 10:31:23 of 2) [code = SHINGLES VACCINES (1 of 2)] Future Scheduled 2022-09-28 INFLUENZA VACCINE [facility] 10:31:23 [code = INFLUENZA VACCINE] Future Scheduled 2022-09-28 65+ [facility]OCOCCAL [facility] 10:31:23 VACCINE (2 - PCV) [code = 65+ PNEUMOCOCCAL VACCINE (2 - PCV)] Future Scheduled 2022-08-27 COVID-19 VACCINE (#1) [facility] Test 06:40:57 [code = COVID-19 VACCINE (#1)] Future Scheduled 2022-08-27 [facility] C screening [facility] Test 06:40:57 (procedure) [code = 600824841] Future Scheduled 2022-08-27 SHINGLES VACCINES (1 [facility] Test 06:40:57 of 2) [...] (#1)] Future Scheduled 2022-08-27 [facility] Test 06:40:57 (procedure) [code = 074773877] Future Scheduled 2022-08-27 SHINGLES VACCINES (1 [facility] Test 06:40:57 of 2) [facility] 06:40:57 (procedure) [code = 995506101] Future Scheduled 2022-08-27 SHINGLES VACCINES (1 [facility] Test 06:40:57 of 2) [...] (#1)] Future Scheduled 2022-08-27 [facility] 06:40:57 (procedure) [code = 481427737] Future Scheduled 2022-08-27 SHINGLES VACCINES (1 [facility] Test 06:40:57 of 2) [...] [facility] 06:40:57 (procedure) [code = 971106660] Future Scheduled 2022-08-27 SHINGLES VACCINES (1 [facility] Test 06:40:57 of 2) [code = SHINGLES VACCINES (1 of 2)] Future Scheduled 2022-08-27 [facility]ZA [facility]ACCINE [facility] 06:40:57 [code = INFLUENZA VACCINE] Future Scheduled 2022-08-27 65+ [facility]CCAL [facility] 06:40:57 VACCINE (2 - PCV) [code = 65+ PNEUMOCOCCAL VACCINE (2 - PCV)] Future Scheduled 2022-08-27 COVID-19 VACCINE (#1) [facility] Test 06:40:57 [code = COVID-19 VACCINE (#1)] Future Scheduled 2022-08-27 Hepatitis C screening [facility] Test 06:40:57 (procedure) [code = 514351751] Future Scheduled 2022-08-27 SHINGLES VACCINES (1 [facility] Test 06:40:57 of 2) [code = SHINGLES VACCINES (1 of 2)] Future Scheduled 2022-08-27 [facility]FLUENZA VACCINE [facility] Test 06:40:57 [code = INFLUENZA VACCINE] Future Scheduled 2022-08-27 65+ [facility]OCOCCAL [facility] 06:40:57 VACCINE (2 - PCV) [code = 65+ PNEUMOCOCCAL VACCINE (2 - PCV)] Future Scheduled 2022-07-17 HEPATITIS B VACCINES [facility] Test 07:30:39 (1 of 3 - 3-dose series) [code = HEPATITIS B VACCINES (1 of 3 - 3-dose series)] Future Scheduled 2022-07-17 COVID-19 VACCINE (#1) [facility] Test 07:30:39 [code = COVID-19 VACCINE (#1)] Future Scheduled 2022-07-17 Hepatitis C screening [facility] Test 07:30:39 (procedure) [code = 067123825] Future Scheduled 2022-07-17 SHINGLES VACCINES (1 [facility] Test 07:30:39 of 2) [code = SHINGLES VACCINES (1 of 2)] Future Scheduled 2022-07-17 INFLUENZA VACCINE [facility] Test 07:30:39 [code = INFLUENZA VACCINE] Future Scheduled 2022-07-17 65+ [facility]OCOCCAL [facility] 07:30:39 VACCINE (2 - PCV) [code = 65+ PNEUMOCOCCAL VACCINE (2 - PCV)] Future Scheduled 2022-07-17 HEPATITIS B VACCINES [facility] Test 07:30:39 (1 of 3 - 3-dose series) [code = HEPATITIS B VACCINES (1 of 3 - 3-dose series)] Future Scheduled 2022-07-17 COVID-19 VACCINE (#1) [facility] Test 07:30:39 [code = COVID-19 VACCINE (#1)] Future Scheduled 2022-07-17 Hepatitis C screening [facility] Test 07:30:39 (procedure) [code = 055291702] Future Scheduled 2022-07-17 SHINGLES VACCINES (1 [facility] Test 07:30:39 of 2) [code = SHINGLES VACCINES (1 of 2)] Future Scheduled 2022-07-17 INFLUENZA VACCINE [facility] Test 07:30:39 [code = INFLUENZA VACCINE] Future Scheduled 2022-07-17 65+ PNEUMOCOCCAL [facility] Test 07:30:39 VACCINE (2 - PCV) [code = 65+ PNEUMOCOCCAL VACCINE (2 - PCV)] Encounters Start End Encounter Admission Attending Care Care Encounter Source Date/Time Date/Time Type Type Clinicians Facility Department ID 2023-03-02 Outpatient [facility] [id number] [place] 14:34:33 [id number] Health 2022-10-13 Outpatient 3 [id number] E[facility] CRD [id number] [facility] 09:51:27 [facility] [place] 2022-09-26 Outpatient 3 [id number] ENC[facility] CRD [id number] [facility] 10:45:58 0[facility] [place] 2022-09-25 Outpatient 3 [id number] ENC[facility] REF [id number] [facility] 12:30:18 0112 [facility] [place] 2022-04-03 Outpatient KO, DANIASE MHSE [id number] 15:59:49 [facility] 2021-11-21 Outpatient [facility] [id number] [place] 10:56:53 Health 2021-11-21 Outpatient [facility] [id number] [place] 10:55:46 Health 2021-10-22 Outpatient 3 [id number] ENCPL CRD [id number] [facility] 10:32:05 0208 [facility] [place] 2021-10-16 Outpatient 3 [id number] ENC[facility] REF [id number] [facility] 10:31:34 020 [facility] [place] 2021-10-01 Outpatient KO [facility] [id number] [place] 01:05:41 [facility] 2021-09-27 Inpatient KO MHSE MHSE [id number] MH 14:57:03 [facility] 2021-09-24 Outpatient KO [facility] [id number] [place] 14:24:58 [facility] 2021-09-16 Outpatient [facility] [id number] [place] 08:56:13 [facility] 2021-09-16 Outpatient [facility] [id number] [place] 08:54:24 [facility] 2021-08-19 Outpatient KO [facility] [id number] [place] 07:57:20 [facility] 2021-08-19 Outpatient [facility] [id number] [place] 07:56:39 [facility] 2021-08-19 Outpatient [facility] [id number] [place] 07:55:37 [facility] 2021-07-23 Outpatient [facility] [id number] [place] 10:43:22 [facility] 2021-07-23 Outpatient KO [facility] [id number] [place] 10:42:25 [facility] 2021-07-23 Outpatient [facility] [id number] [place] 10:36:58 [facility] 2022-07-23 2022-07-23 Ambulatory nullFlavo MNA [id number] Memoria 19:00:00 19:00:00 Pre-Reg r Neurology 06 l Qiana [place] 2022-07-23 2022-07-23 Outpatient MHIE IE [id number] [facility]oria 13:00:00 13:00:00 06 l [place] 2022-07-09 2022-07-09 Outpatient VERONICA [facility] [id number] [place] 00:00:00 00:00:00 [address] 2022-07-03 2022-07-03 Transcribe Veronica, 1.2.840.1 [id number] [facility] 00:00:00 00:00:00 Orders Divyang C [address]46.1.[address] 3.430.2.7 Hospit a .3.697544 l .8 2022-07-03 2022-07-03 Transcribe Rozshoshana, 1.2.840.1 [id number] [facility] 00:00:00 00:00:00 Orders Richie Rees 76329.1.[address] 3.430.2.7 Hospit a .3.803788 l .8 2022-05-23 2022-05-24 Outpatient nullFlavo MNA [id number] Memoria 18:15:00 04:59:59 r Neurology 05 l Furn[place] 2022-05-23 2022-05-23 Outpatient MHIE MHIE [id number] Memoria 13:15:00 13:15:00 05 l Obie 2022-04-29 2022-04-29 Outpatient KO [facility] [id number] [place] 10:00:00 10:00:00 [facility] 2022-04-10 2022-04-11 Outpatient nullFlavo MNA [id number] Memoria 13:15:00 04:59:59 r Neurology 04 l [place] 2022-04-10 2022-04-10 Outpatient MHIE MHIE [id number] Memoria 08:15:00 08:15:00 04 l [place] 2022-03-10 2022-03-11 Outpatient nullFlavo MNA [id number] Mem[facility] 16:30:00 04:59:59 r Neurology 03 l Qiana Sadlerann 2022-03-10 2022-03-10 Outpatient MHIE MHIE [id number] Memoria 11:30:00 11:30:00 03 l [place] 2022-02-19 2022-02-19 Ambulatory nullFlavo MNA [id number] Memoria 20:15:00 20:15:00 Pre-Reg r Neurology 02 l [place] 2022-02-19 2022-02-19 Outpatient MHIE MHIE [id number] Memoria 15:15:00 15:15:00 02 l [place] 2022-01-13 2022-01-13 Office Ko [facility] 1.2.840.114 [id number] [place] 10:00:00 10:15:00 Visit [facility] 350.1.13.58 [place] 9.2.7.2.686 [facility] [id number] 1 2022-01-06 2022-01-06 Ambulatory nullFlavo [facility] 55 [id number] Memoria 14:20:00 14:20:00 Pre-Reg r Specialty 01 l [facility] [place] [facility] 2022-01-01 2022-01-01 Telephonic ESPERANZA Connell 1.2.840.114 [id number] [place] 07:45:00 08:52:16 Encounter Arash SERRANO 350.1.13.58 [facility] 9.2.7.2.686 [id number] 2 2021-12-30 2021-12-30 Outpatient MHIE IE [id number] Memoria 09:20:00 09:20:00 01 [place]ef [place] 2021-12-18 2021-12-18 Inpatient HECTOR OlmosCL OUTD [id number] [facility] 05:16:00 05:16:00 Ortiz 70 [facility] 2021-12-04 2021-12-04 Telephonic ESPERANZA Connell 1.2.840.114 [id number] [place] 07:45:00 08:47:54 Encounter Arash SERRANO 350.1.13.58 [facility] 9.2.7.2.686 [id number] 2 2021-11-20 2021-11-21 Inpatient HECTOR AndrewsCL INTE.02 [id number] [facility] 14:27:00 13:39:00 [place] 30 [facility] 2021-11-18 2021-11-18 Office ESPERANZA CONNELL [facility] 1.2.840.114 [id number] [place] 10:00:00 10:15:00 Visit ARASH SAMPSON 350.1.13.58 [place] lang FABIEN 9.2.7.2.686 [facility] [id number] 1 2021-11-08 2021-11-11 Inpatient [facility] [id number] Memoria 06:30:00 18:32:[address] [facility] 2021-11-06 2021-11-06 Office ESPERANZA Connell 1.2.840.114 [id number] [place] 10:45:00 11:24:42 Visit Arash SERRANO 350.1.13.58 [facility] 9.2.7.2.686 [id number] 2 2021-11-04 2021-11-05 Outpatient nullFlavo [facility] 55 [id number] Memoria 15:40:00 05:59:59 r Specialty 00 l [facility] [place] 2021-11-04 2021-11-04 Outpatient MHIE MHIE [id number] Memoria 09:40:00 09:40:00 00 l [place] 2021-10-11 2021-10-22 Inpatient nullFlavo [facility] [id number] Memoria 16:31:00 23:05:00 r Obie 01 [place] 2021-09-27 2021-09-30 Inpatient nullFlavo [facility] [id number] Memoria 22:11:44 21:55:00 r Obie 02 [facility] 2021-09-27 2021-09-27 Emergency E ROSIE, SE MHSE [id number] 16:11:00 16:11:00 LAKSHMI ayoub [facility] 2021-07-16 2021-07-16 Office Ko [facility] 1.2.840.114 [id number] [place] 09:51:23 10:45:55 Visit [facility] MED 350.1.13.58 [place] [address] 9.2.7.2.686 [id number] 2 2021-07-02 2021-07-02 Day nullFlavo [facility] [id number] Memoria 14:10:00 22:16:00 Surgery r [place] 2021-06-28 2021-06-28 Office Ko [facility] 1.2.840.114 [id number] [place] 09:49:14 10:45:59 Visit [facility] MED 350.1.13.58 [address] 9.2.7.2.686 [id number] 2 2021-06-16 2021-06-16 Outpatient PRIV PRIV [id number] [facility] 00:00:00 00:00:00 [id number] Medica l 2021-06-16 2021-06-16 Outpatient PRIV PRIV [id number] 9-2 [facility] 00:00:00 00:00:00 [id number] Medica l Results Test Description Test Time [...] x10 3/uL 0.0-0.1 N NRBC#) BASIC METABOLIC [id number] 15:06:00 Test Item Value Reference Range Interpretation [...] code = 8.4 mg/dL 8.0-10.5 N CA) [id number] 12:54:00 Test Item Value Reference Range Interpretation Comments ACT-ISTAT (test code 273 SEC 74-137 H Perform ed 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 = 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 [facility] [id number] 12:41:00 Test Item Value Reference Range Interpretation Comments ACT-ISTAT (test code 273 SEC 74-137 H Perform ed 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 = 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 [facility] [id number] 12:27:00 Test Item Value Reference Range Interpretation Comments ACT-ISTAT (test code 249 SEC 74-137 H 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 BASIC METABOLIC [id number] 12:47:00 Test Item Value Reference Range Interpretation [...] = 8.4 mg/dL 8.0-10.5 N CA) PROTHROMBIN [id number] 12:47:00 Test Item Value Reference Range Interpretation [...] (to prevent recurrent infar ct). 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[facility] BASIC METABOLIC [id number] 07:56:00 Test Item Value Reference Range Interpretation [...] 8.7 mg/dL 8.0-10.5 N CA) CBC W/AUTO [id number] 06:58:00 Test Item Value Reference Range Interpretation [...] = 0.00 x10 3/uL 0.0-0.1 N NRBC#) [id number] 13:45:00 Test Item Value Reference Range Interpretation Comments ACT-ISTAT (test code 261 SEC 74-137 H Perform ed 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 = 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 [facility] - XR CHEST 1 [id number] 00:00:00 [facility] 1945 Sex: F FAX: Jayy Jefferson MD [phone] [place]: St: ADM FAX: Ortiz Krishnan MD [phone] FAX: Alan Toussaint [phone] Name: NEELA LA [facility] : 1945 Age/S: 76/[address] Unit #: [id number] Loc: [place] [address] Phys: Alan Toussaint Acct: [id number] Dis Date: Status: ADM IN PHONE #: [phone] Exam Date: 11/20/2021 1558 FAX #: [phone] Reason: WATCHMAN EXAMS: CPT CODE: [id number] XR CHEST 1 V 27512 PROCEDURE INFORMATION: Exam: XR Chest Exam date [...] Toussaint Technologist: RT Alexis(Ilan) Trnscrd Date/Time/By: 11/20/2021 (4924) : By: [email or web address] Orig Print D/T: S: 11/20/2021 (4181) PAGE 1 Signed ReportBASIC METABOLIC [id number] 15:14:00 Test Item Value Reference Range Interpretation [...] code = 8.3 mg/dL 8.0-10.5 N CA) [id number] 15:14:00 Test Item Value Reference Range Interpretation Comments PREALBUMIN (test code = PREALB) 12.4 mg/dL 16.0-40.0 L PROTHROMBIN [id number] 15:06:00 Test Item Value Reference Range Interpretation [...] (to prevent recurrent infar ct). CBC W/AUTO [id number] 14:51:00 Test Item Value Reference Range Interpretation [...] 0.0-0.1 N NRBC#) - XR CHEST 2 [id number] 00:00:00 [facility] 1945 Sex: F FAX: Jayy Jefferson MD [phone] [place]: St: PRE FAX: Ortiz Krishnan MD [phone] --- Name: NEELA LA [facility] : 1945 Age/S: 76/F [address] [place] [address] Unit #: [id number] Loc: [place] [address] Phys: Ortiz Domingo MD Acct: [id number] Dis Date: Status: PRE [facility] PHONE #: Exam Date: 11/18/2021 1559 FAX #: [phone] Reason: PREOP EXAMS: CPT CODE: [id number] XR CHEST 2 V 04981 PROCEDURE INFORMATION: Exam: XR Chest Exam date [...] Technologist: Delmi Muñoz RT(R) Trnscrd Date/Time/By: 11/18/2021 (1625) : By: [email or web address] Orig Print D/T: S: 11/18/2021 (1647) PAGE 1 [facility]2022-02-28 12:44:00 Test Item Value Reference Range Interpretation Comments Glucose Lvl (test code = Glucose Lvl) 122 70-99 [place] [id number] 12:44:00 Test Item Value Reference Range Interpretation Comments BUN (test code = BUN) 16 7-22 [place] [id number] 12:44:00 Test Item Value Reference Range Interpretation Comments Creatinine Lvl (test code = Creatinine 1.09 0.50-1.40 Lvl) [place] 720082-02-28 12:44:00 Test Item Value Reference Range Interpretation Comments Sodium Lvl (test code = Sodium Lvl) 139 135-145 [place] 720082-02-28 12:44:00 Test Item Value Reference Range Interpretation Comments Potassium Lvl (test code = Potassium 3.7 3.5-5.1 Lvl) [place] 720082-02-28 12:44:00 Test Item Value Reference Range Interpretation Comments Chloride Lvl (test code = Chloride Lvl) 106 95-109 [place] 720082-02-28 12:44:00 Test Item Value Reference Range Interpretation Comments CO2 (test code = CO2) 30 24-32 [place] 720082-02-28 12:44:00 Test Item Value Reference Range Interpretation Comments Calcium Lvl (test code = Calcium Lvl) 8.6 8.5-10.5 [place] 720082-02-28 12:44:00 Test Item Value Reference Range Interpretation Comments AGAP (test code = AGAP) 6.7 10.0-20.0 [place] 720082-02-28 12:44:00 Test Item Value Reference Range Interpretation Comments eGFR (test code = eGFR) 49 [place] [id number] 12:44:00 Test Item Value Reference Range Interpretation Comments PTT (test code = PTT) 49.7 s 22.9-35.8 [place] 720082-02-28 12:44:00 Test Item Value Reference Range Interpretation Comments Glucose Lvl (test code = Glucose Lvl) 122 70-99 [place] 720082-02-28 12:44:00 Test Item Value Reference Range Interpretation Comments BUN (test code = BUN) 16 7-22 [place] 720082-02-28 12:44:00 Test Item Value Reference Range Interpretation Comments Creatinine Lvl (test code = Creatinine 1.09 0.50-1.40 Lvl) [place] 720082-02-28 12:44:00 Test Item Value Reference Range Interpretation Comments Sodium Lvl (test code = Sodium Lvl) 139 135-145 [place] 720082-02-28 12:44:00 Test Item Value Reference Range Interpretation Comments Potassium Lvl (test code = Potassium 3.7 3.5-5.1 Lvl) [place] 720082-02-28 12:44:00 Test Item Value Reference Range Interpretation Comments Chloride Lvl (test code = Chloride Lvl) 106 95-109 [place] 720082-02-28 12:44:00 Test Item Value Reference Range Interpretation Comments CO2 (test code = CO2) 30 24-32 [place] 720082-02-28 12:44:00 Test Item Value Reference Range Interpretation Comments Calcium Lvl (test code = Calcium Lvl) 8.6 8.5-10.5 [place] 720082-02-28 12:44:00 Test Item Value Reference Range Interpretation Comments AGAP (test code = AGAP) 6.7 10.0-20.0 [place] 720082-02-28 12:44:00 Test Item Value Reference Range Interpretation Comments eGFR (test code = eGFR) 49 [place] 475322-02-28 12:44:00 Test Item Value Reference Range Interpretation Comments PTT (test code = PTT) 49.7 s 22.9-35.8 [place] 720082-02-28 12:44:00 Test Item Value Reference Range Interpretation Comments Glucose Lvl (test code = Glucose Lvl) 122 70-99 [place] 720082-02-28 12:44:00 Test Item Value Reference Range Interpretation Comments BUN (test code = BUN) 16 7-22 [place] 720082-02-28 12:44:00 Test Item Value Reference Range Interpretation Comments Creatinine Lvl (test code = Creatinine 1.09 0.50-1.40 Lvl) [place] 720082-02-28 12:44:00 Test Item Value Reference Range Interpretation Comments Sodium Lvl (test code = Sodium Lvl) 139 135-145 [place] 720082-02-28 12:44:00 Test Item Value Reference Range Interpretation Comments Potassium Lvl (test code = Potassium 3.7 3.5-5.1 Lvl) [place] 720082-02-28 12:44:00 Test Item Value Reference Range Interpretation Comments Chloride Lvl (test code = Chloride Lvl) 106 95-109 [place] 720082-02-28 12:44:00 Test Item Value Reference Range Interpretation Comments CO2 (test code = CO2) 30 24-32 [place] 720082-02-28 12:44:00 Test Item Value Reference Range Interpretation Comments Calcium Lvl (test code = Calcium Lvl) 8.6 8.5-10.5 [place] 720082-02-28 12:44:00 Test Item Value Reference Range Interpretation Comments AGAP (test code = AGAP) 6.7 10.0-20.0 [place] 720082-02-28 12:44:00 Test Item Value Reference Range Interpretation Comments eGFR (test code = eGFR) 49 [place] 475322-02-28 12:44:00 Test Item Value Reference Range Interpretation Comments PTT (test code = PTT) 49.7 s 22.9-35.8 [place] 475322-02-27 19:08:00 Test Item Value Reference Range Interpretation Comments PTT (test code = PTT) 72.2 s 22.9-35.8 [place] 475322-02-27 19:08:00 Test Item Value Reference Range Interpretation Comments PTT (test code = PTT) 72.2 s 22.9-35.8 [id number]:08:00 Test Item Value Reference Range Interpretation Comments PTT (test code = PTT) 72.2 s 22.9-35.8 [facility] [id number] 12:39:00 Test Item Value Reference Range Interpretation Comments Ferritin Lvl (test code = Ferritin Lvl) 25 -204 [facility]2022-02-27 12:39:00 Test Item Value Reference Range Interpretation Comments Phosphorus (test code = Phosphorus) 3.5 2.5-4.5 [facility]2022-02-27 12:39:00 Test Item Value Reference Range Interpretation Comments Magnesium Lvl (test code = Magnesium 1.7 1.8-2.4 Lvl) [facility]2022-02-27 12:39:00 Test Item Value Reference Range Interpretation Comments Glucose Lvl (test code = Glucose Lvl) 104 70-99 [facility]2022-02-27 12:39:00 Test Item Value Reference Range Interpretation Comments BUN (test code = BUN) 16 - [facility]2022-02-27 12:39:00 Test Item Value Reference Range Interpretation Comments Creatinine Lvl (test code = Creatinine 0.99 0.50-1.40 Lvl) [facility]2022-02-27 12:39:00 Test Item Value Reference Range Interpretation Comments Sodium Lvl (test code = Sodium Lvl) 139 135-145 [facility]2022-02-27 12:39:00 Test Item Value Reference Range Interpretation Comments Potassium Lvl (test code = Potassium 3.2 3.5-5.1 Lvl) [facility]2022-02-27 12:39:00 Test Item Value Reference Range Interpretation Comments Chloride Lvl (test code = Chloride Lvl) 106 95-109 [facility]2022-02-27 12:39:00 Test Item Value Reference Range Interpretation Comments CO2 (test code = CO2) 31 24-32 [place] 720082-02-27 12:39:00 Test Item Value Reference Range Interpretation Comments Calcium Lvl (test code = Calcium Lvl) 8.6 8.5-10.5 [place] 720082-02-27 12:39:00 Test Item Value Reference Range Interpretation Comments Total Protein (test code = Total 6.2 6.4-8.4 Protein) [facility] [id number] 12:39:00 Test Item Value Reference Range Interpretation Comments Albumin Lvl (test code = Albumin Lvl) 2.5 3.5-5.0 [facility] [id number] 12:39:00 Test Item Value Reference Range Interpretation Comments ALT (test code = ALT) 64 See_Comment [Auto mated message] The system which ge nerated this result transmit shubham reference range : <=65. The reference range was not used to interpr et this result as halina l/abnormal. [facility] [facility] [id number] 12:39:00 Test Item Value Reference Range Interpretation Comments AST (test code = AST) 31 See_Comment [Auto mated message] The system which ge nerated this result transmit shubham reference range : <=37. The reference range was not used to interpr et this result as halina l/abnormal. [facility] [id number] 12:39:00 Test Item Value Reference Range Interpretation Comments Alk Phos (test code = Alk Phos) 135 39-136 [facility] [id number] 12:39:00 Test Item Value Reference Range Interpretation Comments Bili Total (test code = Bili Total) 0.3 0.2-1.3 [facility] [id number] 12:39:00 Test Item Value Reference Range Interpretation Comments AGAP (test code = AGAP) 5.2 10.0-20.0 [facility] [id number] 12:39:00 Test Item Value Reference Range Interpretation Comments B/C Ratio (test code = B/C Ratio) 16 1 6-25 [facility] [id number] 12:39:00 Test Item Value Reference Range Interpretation Comments Globulin (test code = Globulin) 3.7 2.7-4.2 [facility] [id number] 12:39:00 Test Item Value Reference Range Interpretation Comments A/G Ratio (test code = A/G Ratio) 0.7 1 0.7-1.6 [facility] [id number] 12:39:00 Test Item Value Reference Range Interpretation Comments eGFR (test code = eGFR) 55 [facility]WxvbcgiQKXXJLKGEV3608-84-42 12:39:00 Test Item Value Reference Range Interpretation Comments PTT (test code = PTT) 82.2 s 22.9-35.8 [facility] NorthwestObmmhzcPDHYTJGKMK1212-66-02 12:39:00 Test Item Value Reference Range Interpretation Comments WBC (test code = WBC) 5.5 3.7-10.4 [facility] NorthwestCptakjmRGQFGQQCFD7684-43-24 12:39:00 Test Item Value Reference Range Interpretation Comments RBC (test code = RBC) 3.77 4.20-5.40 [facility] NorthwestKniaedoPXIRBOJNCZ4224-44-99 12:39:00 Test Item Value Reference Range Interpretation Comments Hgb (test code = Hgb) 9.7 12.0-16.0 [facility] NorthwestUlvtjjeEOPTKYPLBZ7259-25-41 12:39:00 Test Item Value Reference Range Interpretation Comments Hct (test code = Hct) 30.2 36.0-48.0 [facility] NorthwestNdkljfeZKLZIPMXGW3732-48-75 12:39:00 Test Item Value Reference Range Interpretation Comments MCV (test code = MCV) 79.9 80.0-98.0 [facility] NorthwestXtqoducCLYNDRHWIM1543-05-17 12:39:00 Test Item Value Reference Range Interpretation Comments MCH (test code = MCH) 25.7 pg 27.0-31.0 [facility] NorthwestEodoirmIMFELVFFOJ4647-31-09 12:39:00 Test Item Value Reference Range Interpretation Comments MCHC (test code = MCHC) 32.2 32.0-36.0 [facility] NorthwestXihccnhMOBXAJCIOJ2406-44-66 12:39:00 Test Item Value Reference Range Interpretation Comments RDW (test code = RDW) 17.8 11.5-14.5 [place] 475322-02-27 12:39:00 Test Item Value Reference Range Interpretation Comments Platelet (test code = Platelet) 224 133-450 [facility] NorthwestNsxkxqaCPXSTAQOBY3000-60-16 12:39:00 Test Item Value Reference Range Interpretation Comments MPV (test code = MPV) 7.8 7.4-10.4 [facility] NorthwestJsphardJYVQBINYOE9165-09-62 12:39:00 Test Item Value Reference Range Interpretation Comments Segs (test code = Segs) 56.4 45.0-75.0 [place] [address]-02-27 12:39:00 Test Item Value Reference Range Interpretation Comments Lymphocytes (test code = Lymphocytes) 28.2 20.0-40.0 [facility] NorthwestOktmubjNPPGOIQXUY5581-12-87 12:39:00 Test Item Value Reference Range Interpretation Comments Monocytes (test code = Monocytes) 14.2 2.0-12.0 [facility] NorthwestNspkoxrPJSVQDDVPG5708-35-20 12:39:00 Test Item Value Reference Range Interpretation Comments Basophils (test code = 1.2 See_Comment [Aut omated message] The Basophils) system which ge nerated this result tra nsmitted reference range : <=1.0. The reference r shin was not used to int erpret this result as normal/abnormal . [facility] NorthwestCdvfdgmIQVZEBUNJT3345-41-45 12:39:00 Test Item Value Reference Range Interpretation Comments Neutrophils # (test code = Neutrophils 3.1 1.5-8.1 #) [facility] NorthwestYfcsbvwLGLZHRWDQF0382-94-02 12:39:00 Test Item Value Reference Range Interpretation Comments Lymphocytes # (test code = Lymphocytes 1.5 1.0-5.5 #) [facility] NorthwestBeycjoxSRFIHDZWSV5894-48-93 12:39:00 Test Item Value Reference Range Interpretation Comments Monocytes # (test code 0.8 See_Comment [Aut omated message] The = Monocytes #) system which generated this result tra nsmitted reference range : <=0.8. The reference r shin was not used to int erpret this result as normal/abnormal . [facility] NorthwestTpylzwzOBZOVIKHDE9225-52-04 12:39:00 Test Item Value Reference Range Interpretation Comments Basophils # (test code 0.1 See_Comment [Aut omated message] The = Basophils #) system which generated this result tra nsmitted reference range : <=0.2. The reference r shin was not used to int erpret this result as normal/abnormal . [facility]zlelaqTKEIQDCVSY4710-18-49 12:39:00 Test Item Value Reference Range Interpretation Comments C-REACTIVE PROTEIN (test code = 6.6 C-REACTIVE PROTEIN) [facility]2022-02-27 12:39:00 Test Item Value Reference Range Interpretation Comments Ferritin Lvl (test code = Ferritin Lvl) 25 5-204 [facility] OJKYE2463-29-97 12:39:00 Test Item Value Reference Range Interpretation Comments Phosphorus (test code = Phosphorus) 3.5 2.5-4.5 [place] 720082-02-27 12:39:00 Test Item Value Reference Range Interpretation Comments Magnesium Lvl (test code = Magnesium 1.7 1.8-2.4 Lvl) [place] 720082-02-27 12:39:00 Test Item Value Reference Range Interpretation Comments Glucose Lvl (test code = Glucose Lvl) 104 70-99 [place] 720082-02-27 12:39:00 Test Item Value Reference Range Interpretation Comments BUN (test code = BUN) 16 7-22 [place] 720082-02-27 12:39:00 Test Item Value Reference Range Interpretation Comments Creatinine Lvl (test code = Creatinine 0.99 0.50-1.40 Lvl) [place] 720082-02-27 12:39:00 Test Item Value Reference Range Interpretation Comments Sodium Lvl (test code = Sodium Lvl) 139 135-145 [place] 720082-02-27 12:39:00 Test Item Value Reference Range Interpretation Comments Potassium Lvl (test code = Potassium 3.2 3.5-5.1 Lvl) [place] 720082-02-27 12:39:00 Test Item Value Reference Range Interpretation Comments Chloride Lvl (test code = Chloride Lvl) 106 95-109 [place] 720082-02-27 12:39:00 Test Item Value Reference Range Interpretation Comments CO2 (test code = CO2) 31 24-32 [place] 720082-02-27 12:39:00 Test Item Value Reference Range Interpretation Comments Calcium Lvl (test code = Calcium Lvl) 8.6 8.5-10.5 [place] 720082-02-27 12:39:00 Test Item Value Reference Range Interpretation Comments Total Protein (test code = Total 6.2 6.4-8.4 Protein) [place] 720082-02-27 12:39:00 Test Item Value Reference Range Interpretation Comments Albumin Lvl (test code = Albumin Lvl) 2.5 3.5-5.0 [place] 720082-02-27 12:39:00 Test Item Value Reference Range Interpretation Comments ALT (test code = ALT) 64 See_Comment [Auto mated message] The system which ge nerated this result transmit shubham reference range : <=65. The reference range was not used to interpr et this result as halina l/abnormal. [facility] [id number] 12:39:00 Test Item Value Reference Range Interpretation Comments AST (test code = AST) 31 See_Comment [Auto mated message] The system which ge nerated this result transmit shubham reference range : <=37. The reference range was not used to interpr et this result as halina l/abnormal. [facility] [id number] 12:39:00 Test Item Value Reference Range Interpretation Comments Alk Phos (test code = Alk Phos) 135 39-136 [facility] [id number] 12:39:00 Test Item Value Reference Range Interpretation Comments Bili Total (test code = Bili Total) 0.3 0.2-1.3 [facility] CCZAB8144-14-02 12:39:00 Test Item Value Reference Range Interpretation Comments AGAP (test code = AGAP) 5.2 10.0-20.0 [facility] WLTJX5099-92-24 12:39:00 Test Item Value Reference Range Interpretation Comments B/C Ratio (test code = B/C Ratio) 16 1 6-25 [facility] [id number] 12:39:00 Test Item Value Reference Range Interpretation Comments Globulin (test code = Globulin) 3.7 2.7-4.2 [facility] TMJAI8910-04-17 12:39:00 Test Item Value Reference Range Interpretation Comments A/G Ratio (test code = A/G Ratio) 0.7 1 0.7-1.6 [facility] NKCFL0537-31-36 12:39:00 Test Item Value Reference Range Interpretation Comments eGFR (test code = eGFR) 55 [place] [address]-02-27 12:39:00 Test Item Value Reference Range Interpretation Comments PTT (test code = PTT) 82.2 s 22.9-35.8 [place] [address]-02-27 12:39:00 Test Item Value Reference Range Interpretation Comments WBC (test code = WBC) 5.5 3.7-10.4 [place] [address]-02-27 12:39:00 Test Item Value Reference Range Interpretation Comments RBC (test code = RBC) 3.77 4.20-5.40 [place] [address]-02-27 12:39:00 Test Item Value Reference Range Interpretation Comments Hgb (test code = Hgb) 9.7 12.0-16.0 [place] [address]-02-27 12:39:00 Test Item Value Reference Range Interpretation Comments Hct (test code = Hct) 30.2 36.0-48.0 [place] [address]-02-27 12:39:00 Test Item Value Reference Range Interpretation Comments MCV (test code = MCV) 79.9 80.0-98.0 [place] [address]-02-27 12:39:00 Test Item Value Reference Range Interpretation Comments MCH (test code = MCH) 25.7 pg 27.0-31.0 [place] [address]-02-27 12:39:00 Test Item Value Reference Range Interpretation Comments MCHC (test code = MCHC) 32.2 32.0-36.0 [place] 475322-02-27 12:39:00 Test Item Value Reference Range Interpretation Comments RDW (test code = RDW) 17.8 11.5-14.5 [place] [address]-02-27 12:39:00 Test Item Value Reference Range Interpretation Comments Platelet (test code = Platelet) 224 133-450 [place] 475322-02-27 12:39:00 Test Item Value Reference Range Interpretation Comments MPV (test code = MPV) 7.8 7.4-10.4 [place] [address]-02-27 12:39:00 Test Item Value Reference Range Interpretation Comments Segs (test code = Segs) 56.4 45.0-75.0 [place] [address]-02-27 12:39:00 Test Item Value Reference Range Interpretation Comments Lymphocytes (test code = Lymphocytes) 28.2 20.0-40.0 [place] [address]-02-27 12:39:00 Test Item Value Reference Range Interpretation Comments Monocytes (test code = Monocytes) 14.2 2.0-12.0 [place] [address]-02-27 12:39:00 Test Item Value Reference Range Interpretation Comments Basophils (test code = 1.2 See_Comment [Aut omated message] The Basophils) system which ge nerated this result tra nsmitted reference range : <=1.0. The reference r shin was not used to int erpret this result as normal/abnormal . [facility] NorthwestYziengnVOBURDYUAJ1876-11-68 12:39:00 Test Item Value Reference Range Interpretation Comments Neutrophils # (test code = Neutrophils 3.1 1.5-8.1 #) [place] 475322-02-27 12:39:00 Test Item Value Reference Range Interpretation Comments Lymphocytes # (test code = Lymphocytes 1.5 1.0-5.5 #) [facility] NorthwestTikqhwmLCLYNVHLEL4952-36-39 12:39:00 Test Item Value Reference Range Interpretation Comments Monocytes # (test code 0.8 See_Comment [Aut omated message] The = Monocytes #) system which generated this result tra nsmitted reference range : <=0.8. The reference r shin was not used to int erpret this result as normal/abnormal . [facility] NorthwestYdwyzsbKQWXZMSKVK0472-25-21 12:39:00 Test Item Value Reference Range Interpretation Comments Basophils # (test code 0.1 See_Comment [Aut omated message] The = Basophils #) system which generated this result tra nsmitted reference range : <=0.2. The reference r shin was not used to int erpret this result as normal/abnormal . [facility] HospitalRdzbifpKIERZFTCJJ7018-97-53 12:39:00 Test Item Value Reference Range Interpretation Comments C-REACTIVE PROTEIN (test code = 6.6 C-REACTIVE PROTEIN) [facility]2022-02-27 12:39:00 Test Item Value Reference Range Interpretation Comments Ferritin Lvl (test code = Ferritin Lvl) 25 5-204 [facility]2022-02-27 12:39:00 Test Item Value Reference Range Interpretation Comments Phosphorus (test code = Phosphorus) 3.5 2.5-4.5 [facility]2022-02-27 12:39:00 Test Item Value Reference Range Interpretation Comments Magnesium Lvl (test code = Magnesium 1.7 1.8-2.4 Lvl) [facility]2022-02-27 12:39:00 Test Item Value Reference Range Interpretation Comments Glucose Lvl (test code = Glucose Lvl) 104 70-99 [place] 720082-02-27 12:39:00 Test Item Value Reference Range Interpretation Comments BUN (test code = BUN) 16 7-22 [place] [address]-02-27 12:39:00 Test Item Value Reference Range Interpretation Comments Creatinine Lvl (test code = Creatinine 0.99 0.50-1.40 Lvl) [address]02-27 12:39:00 Test Item Value Reference Range Interpretation Comments Sodium Lvl (test code = Sodium Lvl) 139 135-145 [place] 720082-02-27 12:39:00 Test Item Value Reference Range Interpretation Comments Potassium Lvl (test code = Potassium 3.2 3.5-5.1 Lvl) [address]02-27 12:39:00 Test Item Value Reference Range Interpretation Comments Chloride Lvl (test code = Chloride Lvl) 106 95-109 [address]02-27 12:39:00 Test Item Value Reference Range Interpretation Comments CO2 (test code = CO2) 31 24-32 [place] 720082-02-27 12:39:00 Test Item Value Reference Range Interpretation Comments Calcium Lvl (test code = Calcium Lvl) 8.6 8.5-10.5 [place] [address]-02-27 12:39:00 Test Item Value Reference Range Interpretation Comments Total Protein (test code = Total 6.2 6.4-8.4 Protein) [address]02-27 12:39:00 Test Item Value Reference Range Interpretation Comments Albumin Lvl (test code = Albumin Lvl) 2.5 3.5-5.0 [place] [address]-02-27 12:39:00 Test Item Value Reference Range Interpretation Comments ALT (test code = ALT) 64 See_Comment [Auto mated message] The system which ge nerated this result transmit shubham reference range : <=65. The reference range was not used to interpr et this result as halina l/abnormal. [place] [address]-02-27 12:39:00 Test Item Value Reference Range Interpretation Comments AST (test code = AST) 31 See_Comment [Auto mated message] The system which ge nerated this result transmit shubham reference range : <=37. The reference range was not used to interpr et this result as halina l/abnormal. [place] 720082-02-27 12:39:00 Test Item Value Reference Range Interpretation Comments Alk Phos (test code = Alk Phos) 135 39-136 [place] 720082-02-27 12:39:00 Test Item Value Reference Range Interpretation Comments Bili Total (test code = Bili Total) 0.3 0.2-1.3 [place] 720082-02-27 12:39:00 Test Item Value Reference Range Interpretation Comments AGAP (test code = AGAP) 5.2 10.0-20.0 [place] 720082-02-27 12:39:00 Test Item Value Reference Range Interpretation Comments B/C Ratio (test code = B/C Ratio) 16 1 6-25 [place] 720082-02-27 12:39:00 Test Item Value Reference Range Interpretation Comments Globulin (test code = Globulin) 3.7 2.7-4.2 [place] 720082-02-27 12:39:00 Test Item Value Reference Range Interpretation Comments A/G Ratio (test code = A/G Ratio) 0.7 1 0.7-1.6 [place] 720082-02-27 12:39:00 Test Item Value Reference Range Interpretation Comments eGFR (test code = eGFR) 55 [facility] NorthwestXqryrctWTRADWEZZC1324-95-25 12:39:00 Test Item Value Reference Range Interpretation Comments PTT (test code = PTT) 82.2 s 22.9-35.8 [place] 475322-02-27 12:39:00 Test Item Value Reference Range Interpretation Comments WBC (test code = WBC) 5.5 3.7-10.4 [place] 475322-02-27 12:39:00 Test Item Value Reference Range Interpretation Comments RBC (test code = RBC) 3.77 4.20-5.40 [place] 475322-02-27 12:39:00 Test Item Value Reference Range Interpretation Comments Hgb (test code = Hgb) 9.7 12.0-16.0 [place] 475322-02-27 12:39:00 Test Item Value Reference Range Interpretation Comments Hct (test code = Hct) 30.2 36.0-48.0 [place] 475322-02-27 12:39:00 Test Item Value Reference Range Interpretation Comments MCV (test code = MCV) 79.9 80.0-98.0 [place] 475322-02-27 12:39:00 Test Item Value Reference Range Interpretation Comments MCH (test code = MCH) 25.7 pg 27.0-31.0 [place] 475322-02-27 12:39:00 Test Item Value Reference Range Interpretation Comments MCHC (test code = MCHC) 32.2 32.0-36.0 [place] 475322-02-27 12:39:00 Test Item Value Reference Range Interpretation Comments RDW (test code = RDW) 17.8 11.5-14.5 [place] 475322-02-27 12:39:00 Test Item Value Reference Range Interpretation Comments Platelet (test code = Platelet) 224 133-450 [place] 475322-02-27 12:39:00 Test Item Value Reference Range Interpretation Comments MPV (test code = MPV) 7.8 7.4-10.4 [place] 475322-02-27 12:39:00 Test Item Value Reference Range Interpretation Comments Segs (test code = Segs) 56.4 45.0-75.0 [place] 475322-02-27 12:39:00 Test Item Value Reference Range Interpretation Comments Lymphocytes (test code = Lymphocytes) 28.2 20.0-40.0 [place] [address]-02-27 12:39:00 Test Item Value Reference Range Interpretation Comments Monocytes (test code = Monocytes) 14.2 2.0-12.0 [place] [address]-02-27 12:39:00 Test Item Value Reference Range Interpretation Comments Basophils (test code = 1.2 See_Comment [Aut omated message] The Basophils) system which ge nerated this result tra nsmitted reference range : <=1.0. The reference r shin was not used to int erpret this result as normal/abnormal . [facility] NorthwestMmqbzjyRZJOUZLECH3357-36-04 12:39:00 Test Item Value Reference Range Interpretation Comments Neutrophils # (test code = Neutrophils 3.1 1.5-8.1 #) [place] 475322-02-27 12:39:00 Test Item Value Reference Range Interpretation Comments Lymphocytes # (test code = Lymphocytes 1.5 1.0-5.5 #) [place] [address]-02-27 12:39:00 Test Item Value Reference Range Interpretation Comments Monocytes # (test code 0.8 See_Comment [Aut omated message] The = Monocytes #) system which generated this result tra nsmitted reference range : <=0.8. The reference r shin was not used to int erpret this result as normal/abnormal . [place] 475322-02-27 12:39:00 Test Item Value Reference Range Interpretation Comments Basophils # (test code 0.1 See_Comment [Aut omated message] The = Basophils #) system which generated this result tra nsmitted reference range : <=0.2. The reference r shin was not used to int erpret this result as normal/abnormal . [facility]WmxekeaFWBTLEVTUX4204-01-31 12:39:00 Test Item Value Reference Range Interpretation Comments C-REACTIVE PROTEIN (test code = 6.6 C-REACTIVE PROTEIN) [place] 475322-02-27 04:45:00 Test Item Value Reference Range Interpretation Comments PTT (test code = PTT) 198.0 s 22.9-35.8 [place] [address]-02-27 04:45:00 Test Item Value Reference Range Interpretation Comments PTT (test code = PTT) 198.0 s 22.9-35.8 [place] 475322-02-27 04:45:00 Test Item Value Reference Range Interpretation Comments PTT (test code = PTT) 198.0 s 22.9-35.8 [place] 720082-02-26 19:48:00 Test Item Value Reference Range Interpretation Comments Glucose Lvl (test code = Glucose Lvl) 109 70-99 [place] 720082-02-26 19:48:00 Test Item Value Reference Range Interpretation Comments BUN (test code = BUN) 12 7-22 [facility]2022-02-26 19:48:00 Test Item Value Reference Range Interpretation Comments Creatinine Lvl (test code = Creatinine 1.13 0.50-1.40 Lvl) [place] 720082-02-26 19:48:00 Test Item Value Reference Range Interpretation Comments Sodium Lvl (test code = Sodium Lvl) 137 135-145 [place] 720082-02-26 19:48:00 Test Item Value Reference Range Interpretation Comments Potassium Lvl (test code = Potassium 3.8 3.5-5.1 Lvl) [address]02-26 19:48:00 Test Item Value Reference Range Interpretation Comments Chloride Lvl (test code = Chloride Lvl) 103 95-109 [address]02-26 19:48:00 Test Item Value Reference Range Interpretation Comments CO2 (test code = CO2) 32 24-32 [place] [address]-02-26 19:48:00 Test Item Value Reference Range Interpretation Comments Calcium Lvl (test code = Calcium Lvl) 8.4 8.5-10.5 [place] [address]-02-26 19:48:00 Test Item Value Reference Range Interpretation Comments Total Protein (test code = Total 6.4 6.4-8.4 Protein) [address]02-26 19:48:00 Test Item Value Reference Range Interpretation Comments Albumin Lvl (test code = Albumin Lvl) 2.8 3.5-5.0 [place] 720082-02-26 19:48:00 Test Item Value Reference Range Interpretation Comments ALT (test code = ALT) 94 See_Comment [Auto mated message] The system which ge nerated this result transmit shubham reference range : <=65. The reference range was not used to interpr et this result as halina l/abnormal. [place] 720082-02-26 19:48:00 Test Item Value Reference Range Interpretation Comments AST (test code = AST) 69 See_Comment [Auto mated message] The system which ge nerated this result transmit shubham reference range : <=37. The reference range was not used to interpr et this result as halina l/abnormal. [place] 720082-02-26 19:48:00 Test Item Value Reference Range Interpretation Comments Alk Phos (test code = Alk Phos) 154 39-136 [place] 720082-02-26 19:48:00 Test Item Value Reference Range Interpretation Comments Bili Total (test code = Bili Total) 0.3 0.2-1.3 [place] [address]-02-26 19:48:00 Test Item Value Reference Range Interpretation Comments AGAP (test code = AGAP) 5.8 10.0-20.0 [facility]2022-02-26 19:48:00 Test Item Value Reference Range Interpretation Comments B/C Ratio (test code = B/C Ratio) 11 1 03-08 [place] 720082-02-26 19:48:00 Test Item Value Reference Range Interpretation Comments Globulin (test code = Globulin) 3.6 2.7-4.2 [place] 720082-02-26 19:48:00 Test Item Value Reference Range Interpretation Comments A/G Ratio (test code = A/G Ratio) 0.8 1 0.7-1.6 [place] 720082-02-26 19:48:00 Test Item Value Reference Range Interpretation Comments eGFR (test code = eGFR) 47 [place] 720082-02-26 19:48:00 Test Item Value Reference Range Interpretation Comments Glucose Lvl (test code = Glucose Lvl) 109 70-99 [place] 720082-02-26 19:48:00 Test Item Value Reference Range Interpretation Comments BUN (test code = BUN) 12 04-04 [place] 720082-02-26 19:48:00 Test Item Value Reference Range Interpretation Comments Creatinine Lvl (test code = Creatinine 1.13 0.50-1.40 Lvl) [facility]2022-02-26 19:48:00 Test Item Value Reference Range Interpretation Comments Sodium Lvl (test code = Sodium Lvl) 137 135-145 [place] 720082-02-26 19:48:00 Test Item Value Reference Range Interpretation Comments Potassium Lvl (test code = Potassium 3.8 3.5-5.1 Lvl) [place] 720082-02-26 19:48:00 Test Item Value Reference Range Interpretation Comments Chloride Lvl (test code = Chloride Lvl) 103 95-109 [place] 720082-02-26 19:48:00 Test Item Value Reference Range Interpretation Comments CO2 (test code = CO2) 32 24-32 [place] 720082-02-26 19:48:00 Test Item Value Reference Range Interpretation Comments Calcium Lvl (test code = Calcium Lvl) 8.4 8.5-10.5 [place] 720082-02-26 19:48:00 Test Item Value Reference Range Interpretation Comments Total Protein (test code = Total 6.4 6.4-8.4 Protein) [place] 720082-02-26 19:48:00 Test Item Value Reference Range Interpretation Comments Albumin Lvl (test code = Albumin Lvl) 2.8 3.5-5.0 [facility] [id number] 19:48:00 Test Item Value Reference Range Interpretation Comments ALT (test code = ALT) 94 See_Comment [Auto mated message] The system which ge nerated this result transmit shubham reference range : <=65. The reference range was not used to interpr et this result as halina l/abnormal. [facility] [id number] 19:48:00 Test Item Value Reference Range Interpretation Comments AST (test code = AST) 69 See_Comment [Auto mated message] The system which ge nerated this result transmit shubham reference range : <=37. The reference range was not used to interpr et this result as halina l/abnormal. [facility] [id number] 19:48:00 Test Item Value Reference Range Interpretation Comments Alk Phos (test code = Alk Phos) 154 39-136 [facility] [id number] 19:48:00 Test Item Value Reference Range Interpretation Comments Bili Total (test code = Bili Total) 0.3 0.2-1.3 [facility] [id number] 19:48:00 Test Item Value Reference Range Interpretation Comments AGAP (test code = AGAP) 5.8 10.0-20.0 [facility] [id number] 19:48:00 Test Item Value Reference Range Interpretation Comments B/C Ratio (test code = B/C Ratio) 11 1 6-25 [facility] [id number] 19:48:00 Test Item Value Reference Range Interpretation Comments Globulin (test code = Globulin) 3.6 2.7-4.2 [facility] [id number] 19:48:00 Test Item Value Reference Range Interpretation Comments A/G Ratio (test code = A/G Ratio) 0.8 1 0.7-1.6 [facility] [id number] 19:48:00 Test Item Value Reference Range Interpretation Comments eGFR (test code = eGFR) 47 [place] 720082-02-26 19:48:00 Test Item Value Reference Range Interpretation Comments Glucose Lvl (test code = Glucose Lvl) 109 70-99 [place] 720082-02-26 19:48:00 Test Item Value Reference Range Interpretation Comments BUN (test code = BUN) 12 7-22 [place] 720082-02-26 19:48:00 Test Item Value Reference Range Interpretation Comments Creatinine Lvl (test code = Creatinine 1.13 0.50-1.40 Lvl) [place] 720082-02-26 19:48:00 Test Item Value Reference Range Interpretation Comments Sodium Lvl (test code = Sodium Lvl) 137 135-145 [place] 720082-02-26 19:48:00 Test Item Value Reference Range Interpretation Comments Potassium Lvl (test code = Potassium 3.8 3.5-5.1 Lvl) [place] 720082-02-26 19:48:00 Test Item Value Reference Range Interpretation Comments Chloride Lvl (test code = Chloride Lvl) 103 95-109 [place] [address]-02-26 19:48:00 Test Item Value Reference Range Interpretation Comments CO2 (test code = CO2) 32 24-32 [place] 720082-02-26 19:48:00 Test Item Value Reference Range Interpretation Comments Calcium Lvl (test code = Calcium Lvl) 8.4 8.5-10.5 [place] 720082-02-26 19:48:00 Test Item Value Reference Range Interpretation Comments Total Protein (test code = Total 6.4 6.4-8.4 Protein) [place] 720082-02-26 19:48:00 Test Item Value Reference Range Interpretation Comments Albumin Lvl (test code = Albumin Lvl) 2.8 3.5-5.0 [place] 720082-02-26 19:48:00 Test Item Value Reference Range Interpretation Comments ALT (test code = ALT) 94 See_Comment [Auto mated message] The system which ge nerated this result transmit shubham reference range : <=65. The reference range was not used to interpr et this result as halina l/abnormal. [place] 720082-02-26 19:48:00 Test Item Value Reference Range Interpretation Comments AST (test code = AST) 69 See_Comment [Auto mated message] The system which ge nerated this result transmit shubham reference range : <=37. The reference range was not used to interpr et this result as halina l/abnormal. [facility] [id number] 19:48:00 Test Item Value Reference Range Interpretation Comments Alk Phos (test code = Alk Phos) 154 39-136 [facility] [id number] 19:48:00 Test Item Value Reference Range Interpretation Comments Bili Total (test code = Bili Total) 0.3 0.2-1.3 [place] [address]-02-26 19:48:00 Test Item Value Reference Range Interpretation Comments AGAP (test code = AGAP) 5.8 10.0-20.0 [place] [address]-02-26 19:48:00 Test Item Value Reference Range Interpretation Comments B/C Ratio (test code = B/C Ratio) 11 1 6-25 [place] [address]-02-26 19:48:00 Test Item Value Reference Range Interpretation Comments Globulin (test code = Globulin) 3.6 2.7-4.2 [place] [address]-02-26 19:48:00 Test Item Value Reference Range Interpretation Comments A/G Ratio (test code = A/G Ratio) 0.8 1 0.7-1.6 [place] [address]-02-26 19:48:00 Test Item Value Reference Range Interpretation Comments eGFR (test code = eGFR) 47 [place] 720082-02-26 12:38:00 Test Item Value Reference Range Interpretation Comments Magnesium Lvl (test code = Magnesium 1.8 1.8-2.4 Lvl) [place] 720082-02-26 12:38:00 Test Item Value Reference Range Interpretation Comments Phosphorus (test code = Phosphorus) 3.3 2.5-4.5 [place] [address]-02-26 12:38:00 Test Item Value Reference Range Interpretation Comments Procalcitonin Lvl (test 0.06 See_Comment [Au tomated message] code = Procalcitonin Lvl) Th e system which generated this result transmitted ref erence range: <=0.10. The reference range was not used to interpr et this result as normal/abnormal . [address]02-26 12:38:00 Test Item Value Reference Range Interpretation Comments Digoxin Lvl (test code = Digoxin Lvl) 1.3 0.8-2.0 [place] [address]-02-26 12:38:00 Test Item Value Reference Range Interpretation Comments Magnesium Lvl (test code = Magnesium 1.8 1.8-2.4 Lvl) [place] [address]-02-26 12:38:00 Test Item Value Reference Range Interpretation Comments Phosphorus (test code = Phosphorus) 3.3 2.5-4.5 [place] [address]-02-26 12:38:00 Test Item Value Reference Range Interpretation Comments Procalcitonin Lvl (test 0.06 See_Comment [Au tomated message] code = Procalcitonin Lvl) Th e system which generated this result transmitted ref erence range: <=0.10. The reference range was not used to interpr et this result as normal/abnormal . [place] [address]-02-26 12:38:00 Test Item Value Reference Range Interpretation Comments Digoxin Lvl (test code = Digoxin Lvl) 1.3 0.8-2.0 [place] [address]-02-26 12:38:00 Test Item Value Reference Range Interpretation Comments Magnesium Lvl (test code = Magnesium 1.8 1.8-2.4 Lvl) [place] 720082-02-26 12:38:00 Test Item Value Reference Range Interpretation Comments Phosphorus (test code = Phosphorus) 3.3 2.5-4.5 [place] [address]-02-26 12:38:00 Test Item Value Reference Range Interpretation Comments Procalcitonin Lvl (test 0.06 See_Comment [Au tomated message] code = Procalcitonin Lvl) Th e system which generated this result transmitted ref erence range: <=0.10. The reference range was not used to interpr et this result as normal/abnormal . [place] [address]-02-26 12:38:00 Test Item Value Reference Range Interpretation Comments Digoxin Lvl (test code = Digoxin Lvl) 1.3 0.8-2.0 [place] [address]-02-26 07:36:58 Test Item Value Reference Range Interpretation Comments Glucose Lvl (test code = Glucose Lvl) 103 70-99 [place] 720082-02-26 07:36:58 Test Item Value Reference Range Interpretation Comments BUN (test code = BUN) 14 7-22 [place] 720082-02-26 07:36:58 Test Item Value Reference Range Interpretation Comments Creatinine Lvl (test code = Creatinine 0.97 0.50-1.40 Lvl) [place] 720082-02-26 07:36:58 Test Item Value Reference Range Interpretation Comments Sodium Lvl (test code = Sodium Lvl) 138 135-145 [place] 720082-02-26 07:36:58 Test Item Value Reference Range Interpretation Comments Potassium Lvl (test code = Potassium 3.6 3.5-5.1 Lvl) [place] 720082-02-26 07:36:58 Test Item Value Reference Range Interpretation Comments Chloride Lvl (test code = Chloride Lvl) 102 95-109 [place] 720082-02-26 07:36:58 Test Item Value Reference Range Interpretation Comments CO2 (test code = CO2) 31 24-32 [place] 720082-02-26 07:36:58 Test Item Value Reference Range Interpretation Comments Calcium Lvl (test code = Calcium Lvl) 8.6 8.5-10.5 [place] 720082-02-26 07:36:58 Test Item Value Reference Range Interpretation Comments Total Protein (test code = Total 6.5 6.4-8.4 Protein) [place] 720082-02-26 07:36:58 Test Item Value Reference Range Interpretation Comments Albumin Lvl (test code = Albumin Lvl) 2.8 3.5-5.0 [place] 720082-02-26 07:36:58 Test Item Value Reference Range Interpretation Comments ALT (test code = ALT) 131 See_Comment [Auto mated message] The system which ge nerated this result transmit shubham reference range : <=65. The reference range was not used to interpr et this result as halina l/abnormal. [place] 720082-02-26 07:36:58 Test Item Value Reference Range Interpretation Comments AST (test code = AST) 150 See_Comment [Auto mated message] The system which ge nerated this result transmit shubham reference range : <=37. The reference range was not used to interpr et this result as halina l/abnormal. [facility]2022-02-26 07:36:58 Test Item Value Reference Range Interpretation Comments Alk Phos (test code = Alk Phos) 172 39-136 [place] 720082-02-26 07:36:58 Test Item Value Reference Range Interpretation Comments Bili Total (test code = Bili Total) 0.3 0.2-1.3 [place] 720082-02-26 07:36:58 Test Item Value Reference Range Interpretation Comments AGAP (test code = AGAP) 8.6 10.0-20.0 [facility]2022-02-26 07:36:58 Test Item Value Reference Range Interpretation Comments B/C Ratio (test code = B/C Ratio) 14 1 6- [place] 720082-02-26 07:36:58 Test Item Value Reference Range Interpretation Comments Globulin (test code = Globulin) 3.7 2.7-4.2 [facility]2022-02-26 07:36:58 Test Item Value Reference Range Interpretation Comments A/G Ratio (test code = A/G Ratio) 0.8 1 0.7-1.6 [place] 720082-02-26 07:36:58 Test Item Value Reference Range Interpretation Comments eGFR (test code = eGFR) 57 [place] 720082-02-26 07:36:58 Test Item Value Reference Range Interpretation Comments Glucose Lvl (test code = Glucose Lvl) 103 70-99 [place] 720082-02-26 07:36:58 Test Item Value Reference Range Interpretation Comments BUN (test code = BUN) 14 7- [place] 720082-02-26 07:36:58 Test Item Value Reference Range Interpretation Comments Creatinine Lvl (test code = Creatinine 0.97 0.50-1.40 Lvl) [place] 720082-02-26 07:36:58 Test Item Value Reference Range Interpretation Comments Sodium Lvl (test code = Sodium Lvl) 138 135-145 [place] 720082-02-26 07:36:58 Test Item Value Reference Range Interpretation Comments Potassium Lvl (test code = Potassium 3.6 3.5-5.1 Lvl) [place] [address]-02-26 07:36:58 Test Item Value Reference Range Interpretation Comments Chloride Lvl (test code = Chloride Lvl) 102 95-109 [place] [address]-02-26 07:36:58 Test Item Value Reference Range Interpretation Comments CO2 (test code = CO2) 31 24-32 [place] [address]-02-26 07:36:58 Test Item Value Reference Range Interpretation Comments Calcium Lvl (test code = Calcium Lvl) 8.6 8.5-10.5 [place] [address]-02-26 07:36:58 Test Item Value Reference Range Interpretation Comments Total Protein (test code = Total 6.5 6.4-8.4 Protein) [place] [address]-02-26 07:36:58 Test Item Value Reference Range Interpretation Comments Albumin Lvl (test code = Albumin Lvl) 2.8 3.5-5.0 [place] 720082-02-26 07:36:58 Test Item Value Reference Range Interpretation Comments ALT (test code = ALT) 131 See_Comment [Auto mated message] The system which ge nerated this result transmit shubham reference range : <=65. The reference range was not used to interpr et this result as halina l/abnormal. [place] 720082-02-26 07:36:58 Test Item Value Reference Range Interpretation Comments AST (test code = AST) 150 See_Comment [Auto mated message] The system which ge nerated this result transmit shubham reference range : <=37. The reference range was not used to interpr et this result as halina l/abnormal. [place] 720082-02-26 07:36:58 Test Item Value Reference Range Interpretation Comments Alk Phos (test code = Alk Phos) 172 39-136 [place] 720082-02-26 07:36:58 Test Item Value Reference Range Interpretation Comments Bili Total (test code = Bili Total) 0.3 0.2-1.3 [place] [address]-02-26 07:36:58 Test Item Value Reference Range Interpretation Comments AGAP (test code = AGAP) 8.6 10.0-20.0 [place] 720082-02-26 07:36:58 Test Item Value Reference Range Interpretation Comments B/C Ratio (test code = B/C Ratio) 14 1 6- [place] 720082-02-26 07:36:58 Test Item Value Reference Range Interpretation Comments Globulin (test code = Globulin) 3.7 2.7-4.2 [place] 720082-02-26 07:36:58 Test Item Value Reference Range Interpretation Comments A/G Ratio (test code = A/G Ratio) 0.8 1 0.7-1.6 [place] 720082-02-26 07:36:58 Test Item Value Reference Range Interpretation Comments eGFR (test code = eGFR) 57 [place] 720082-02-26 07:36:58 Test Item Value Reference Range Interpretation Comments Glucose Lvl (test code = Glucose Lvl) 103 70-99 [place] 720082-02-26 07:36:58 Test Item Value Reference Range Interpretation Comments BUN (test code = BUN) 14 - [place] 720082-02-26 07:36:58 Test Item Value Reference Range Interpretation Comments Creatinine Lvl (test code = Creatinine 0.97 0.50-1.40 Lvl) [place] 720082-02-26 07:36:58 Test Item Value Reference Range Interpretation Comments Sodium Lvl (test code = Sodium Lvl) 138 135-145 [place] 720082-02-26 07:36:58 Test Item Value Reference Range Interpretation Comments Potassium Lvl (test code = Potassium 3.6 3.5-5.1 Lvl) [place] 720082-02-26 07:36:58 Test Item Value Reference Range Interpretation Comments Chloride Lvl (test code = Chloride Lvl) 102 95-109 [place] 720082-02-26 07:36:58 Test Item Value Reference Range Interpretation Comments CO2 (test code = CO2) 31 - [place] 720082-02-26 07:36:58 Test Item Value Reference Range Interpretation Comments Calcium Lvl (test code = Calcium Lvl) 8.6 8.5-10.5 [place] 720082-02-26 07:36:58 Test Item Value Reference Range Interpretation Comments Total Protein (test code = Total 6.5 6.4-8.4 Protein) [facility] K Murphy [id number] 07:36:58 Test Item Value Reference Range Interpretation Comments Albumin Lvl (test code = Albumin Lvl) 2.8 3.5-5.0 [facility] K Murphy [id number] 07:36:58 Test Item Value Reference Range Interpretation Comments ALT (test code = ALT) 131 See_Comment [Auto mated message] The system which ge nerated this result transmit shubham reference range : <=65. The reference range was not used to interpr et this result as halina l/abnormal. [facility] K Murphy [id number] 07:36:58 Test Item Value Reference Range Interpretation Comments AST (test code = AST) 150 See_Comment [Auto mated message] The system which ge nerated this result transmit shubham reference range : <=37. The reference range was not used to interpr et this result as halina l/abnormal. [facility] K Murphy [id number] 07:36:58 Test Item Value Reference Range Interpretation Comments Alk Phos (test code = Alk Phos) 172 39-136 [facility] Penem[facility] K Murphy [id number] 07:36:58 Test Item Value Reference Range Interpretation Comments Bili Total (test code = Bili Total) 0.3 0.2-1.3 [facility] K Murphy [id number] 07:36:58 Test Item Value Reference Range Interpretation Comments AGAP (test code = AGAP) 8.6 10.0-20.0 [facility] K Murphy [id number] 07:36:58 Test Item Value Reference Range Interpretation Comments B/C Ratio (test code = B/C Ratio) 14 1 6-25 [facility] K Murphy [id number] 07:36:58 Test Item Value Reference Range Interpretation Comments Globulin (test code = Globulin) 3.7 2.7-4.2 [facility] K Murphy [id number] 07:36:58 Test Item Value Reference Range Interpretation Comments A/G Ratio (test code = A/G Ratio) 0.8 1 0.7-1.6 [facility] K Murphy [id number] 07:36:58 Test Item Value Reference Range Interpretation Comments eGFR (test code = eGFR) 57 [facility] [id number] 23:10:00 Test Item Value Reference Range Interpretation Comments HS Troponin I (test code = HS Troponin 676 I) [facility] [id number] 23:10:00 Test Item Value Reference Range Interpretation Comments HS Troponin I (test code = HS Troponin 676 I) [facility] [id number] 23:10:00 Test Item Value Reference Range Interpretation Comments HS Troponin I (test code = HS Troponin 676 I) [facility] [id number] 23:09:00 Test Item Value Reference Range Interpretation Comments Phosphorus (test code = Phosphorus) 4.0 2.5-4.5 [facility] [id number] 23:09:00 Test Item Value Reference Range Interpretation Comments Magnesium Lvl (test code = Magnesium 2.0 1.8-2.4 Lvl) [facility] [id number] 23:09:00 Test Item Value Reference Range Interpretation Comments Phosphorus (test code = Phosphorus) 4.0 2.5-4.5 [facility] [id number] 23:09:00 Test Item Value Reference Range Interpretation Comments Magnesium Lvl (test code = Magnesium 2.0 1.8-2.4 Lvl) [facility] [id number] 23:09:00 Test Item Value Reference Range Interpretation Comments Phosphorus (test code = Phosphorus) 4.0 2.5-4.5 [facility] [id number] 23:09:00 Test Item Value Reference Range Interpretation Comments Magnesium Lvl (test code = Magnesium 2.0 1.8-2.4 Lvl) [facility] [id number] 09:29:00 Test Item Value Reference Range Interpretation Comments Coronavirus (COVID-19) Detected MADELINE (test code = 4*ABN*(11/08/21 3:29 Coronavirus (COVID-19) AM) MADELINE) [facility] [id number] 09:29:00 Test Item Value Reference Range Interpretation Comments UA Color (test code = Yellow *NA*(11/08/21 UA Color) 3:29 AM) [facility] [id number] 09:29:00 Test Item Value Reference Range Interpretation Comments UA Turbidity (test code = Clear (11/08/21 3:29 UA Turbidity) AM) [facility] AND [id number] 09:29:00 Test Item Value Reference Range Interpretation Comments UA Spec Grav (test code = UA Spec 1.020 1 Grav) [facility] AND [id number] 09:29:00 Test Item Value Reference Range Interpretation Comments UA pH (test code = UA pH) 6.0 1 5.0-8.[address] [facility] AND [id number] 09:29:00 Test Item Value Reference Range Interpretation Comments UA Protein (test code = UA Protein) 30 mg/dL [facility] AND [id number] 09:29:00 Test Item Value Reference Range Interpretation Comments UA Glucose (test code Negative (11/08/21 3:29 = UA Glucose) AM) [facility] AND [id number] 09:29:00 Test Item Value Reference Range Interpretation Comments UA Ketones (test code Negative *NA*(11/08/21 = UA Ketones) 3:29 AM) [facility] AND [id number] 09:29:00 Test Item Value Reference Range Interpretation Comments UA Bili (test code = Negative *NA*(11/08/21 UA Bili) 3:29 AM) [facility] AND [id number] 09:29:00 Test Item Value Reference Range Interpretation Comments UA Blood (test code = Negative (11/08/21 3:29 UA Blood) AM) [facility] AND [id number] 09:29:00 Test Item Value Reference Range Interpretation Comments UA Urobilinogen (test code = UA 2.0 0.1-1.0 Urobilinogen) [facility] AND [id number] 09:29:00 Test Item Value Reference Range Interpretation Comments UA Nitrite (test code Negative (11/08/21 3:29 = UA Nitrite) AM) [facility] AND [id number] 09:29:00 Test Item Value Reference Range Interpretation Comments UA Leuk Est (test code Trace *ABN*(11/08/21 = UA Leuk Est) 3:29 AM) [facility] AND [id number] 09:29:00 Test Item Value Reference Range Interpretation Comments UA Sq Epi (test code = UA Sq Moderate /LPF Epi) [facility] [id number] 09:29:00 Test Item Value Reference Range Interpretation Comments UA WBC (test code = 5 See_Comment [Automa shubham message] The UA WBC) system which ge nerated this result transmit shubham reference range : <=5. The reference range was not used to interpr et this result as halina l/abnormal. [facility] [id number] 09:29:00 Test Item Value Reference Range Interpretation Comments UA RBC (test code = 3 See_Comment [Automa shubham message] The UA RBC) system which ge nerated this result transmit shubham reference range : <=2. The reference range was not used to interpr et this result as halina l/abnormal. [facility] [id number] 09:29:00 Test Item Value Reference Range Interpretation Comments UA Mucus (test code = UA Mucus) Few /LPF [facility] [id number] 09:29:00 Test Item Value Reference Range Interpretation Comments Coronavirus (COVID-19) Detected MADELINE (test code = 4*ABN*(11/08/21 3:29 Coronavirus (COVID-19) AM) MADELINE) [facility] [id number] 09:29:00 Test Item Value Reference Range Interpretation Comments UA Color (test code = Yellow *NA*(11/08/21 UA Color) 3:29 AM) [facility] [id number] 09:29:00 Test Item Value Reference Range Interpretation Comments UA Turbidity (test code = Clear (11/08/21 3:29 UA Turbidity) AM) [facility] [id number] 09:29:00 Test Item Value Reference Range Interpretation Comments UA Spec Grav (test code = UA Spec 1.020 1 Grav) [facility] [id number] 09:29:00 Test Item Value Reference Range Interpretation Comments UA pH (test code = UA pH) 6.0 1 5.0-8.0 [facility] [id number] 09:29:00 Test Item Value Reference Range Interpretation Comments UA Protein (test code = UA Protein) 30 mg/dL [facility] [id number] 09:29:00 Test Item Value Reference Range Interpretation Comments UA Glucose (test code Negative (11/08/21 3:29 = UA Glucose) AM) [facility] [id number] 09:29:00 Test Item Value Reference Range Interpretation Comments UA Ketones (test code Negative *NA*(11/08/21 = UA Ketones) 3:29 AM) [facility] [id number] 09:29:00 Test Item Value Reference Range Interpretation Comments UA Bili (test code = Negative *NA*(11/08/21 UA Bili) 3:29 AM) [facility] [id number] 09:29:00 Test Item Value Reference Range Interpretation Comments UA Blood (test code = Negative (11/08/21 3:29 UA Blood) AM) [facility] [id number] 09:29:00 Test Item Value Reference Range Interpretation Comments UA Urobilinogen (test code = UA 2.0 0.1-1.0 Urobilinogen) [facility] AND [id number] 09:29:00 Test Item Value Reference Range Interpretation Comments UA Nitrite (test code Negative (11/08/21 3:29 = UA Nitrite) AM) [facility] AND [id number] 09:29:00 Test Item Value Reference Range Interpretation Comments UA Leuk Est (test code Trace *ABN*(11/08/21 = UA Leuk Est) 3:29 AM) [facility] AND [id number] 09:29:00 Test Item Value Reference Range Interpretation Comments UA Sq Epi (test code = UA Sq Moderate /LPF Epi) [facility] AND [id number] 09:29:00 Test Item Value Reference Range Interpretation Comments UA WBC (test code = 5 See_Comment [Automa shubham message] The UA WBC) system which ge nerated this result transmit shubham reference range : <=5. The reference range was not used to interpr et this result as halina l/abnormal. [facility] [id number] 09:29:00 Test Item Value Reference Range Interpretation Comments UA RBC (test code = 3 See_Comment [Automa shubham message] The UA RBC) system which ge nerated this result transmit shubham reference range : <=2. The reference range was not used to interpr et this result as halina l/abnormal. [facility] AND [id number] 09:29:00 Test Item Value Reference Range Interpretation Comments UA Mucus (test code = UA Mucus) Few /LPF [id number] 09:29:00 Test Item Value Reference Range Interpretation Comments Coronavirus (COVID-19) Detected MADELINE (test code = 4*ABN*(11/08/21 3:29 Coronavirus (COVID-19) AM) MADELINE) [facility] AND [id number] 09:29:00 Test Item Value Reference Range Interpretation Comments UA Color (test code = Yellow *NA*(11/08/21 UA Color) 3:29 AM) [facility] AND [id number] 09:29:00 Test Item Value Reference Range Interpretation Comments UA Turbidity (test code = Clear (11/08/21 3:29 UA Turbidity) AM) [facility] AND [id number] 09:29:00 Test Item Value Reference Range Interpretation Comments UA Spec Grav (test code = UA Spec 1.020 1 Grav) [facility] AND [id number] 09:29:00 Test Item Value Reference Range Interpretation Comments UA pH (test code = UA pH) 6.0 1 5.0-8.0 [facility] AND [id number] 09:29:00 Test Item Value Reference Range Interpretation Comments UA Protein (test code = UA Protein) 30 mg/dL [facility] AND [id number] 09:29:00 Test Item Value Reference Range Interpretation Comments UA Glucose (test code Negative (11/08/21 3:29 = UA Glucose) AM) [facility] AND [id number] 09:29:00 Test Item Value Reference Range Interpretation Comments UA Ketones (test code Negative *NA*(11/08/21 = UA Ketones) 3:29 AM) [facility] AND [id number] 09:29:00 Test Item Value Reference Range Interpretation Comments UA Bili (test code = Negative *NA*(11/08/21 UA Bili) 3:29 AM) [facility] AND [id number] 09:29:00 Test Item Value Reference Range Interpretation Comments UA Blood (test code = Negative (11/08/21 3:29 [facility]A Blood) AM) [facility] [id number] 09:29:00 Test Item Value Reference Range Interpretation Comments UA Urobilinogen (test code = UA 2.0 0.1-1.0 Urobilinogen) [facility] [id number] 09:29:00 Test Item Value Reference Range Interpretation Comments UA Nitrite (test code Negative (11/08/21 3:29 = UA Nitrite) AM) [facility] [id number] 09:29:00 Test Item Value Reference Range Interpretation Comments UA Leuk Est (test code Trace *ABN*(11/08/21 = UA Leuk Est) 3:29 AM) [facility] [id number] 09:29:00 Test Item Value Reference Range Interpretation Comments UA Sq Epi (test code = UA Sq Moderate /LPF Epi) [facility] [id number] 09:29:00 Test Item Value Reference Range Interpretation Comments UA WBC (test code = 5 See_Comment [Automa shubham message] The UA WBC) system which ge nerated this result transmit shubham reference range : <=5. The reference range was not used to interpr et this result as halina l/abnormal. [facility] [id number] 09:29:00 Test Item Value Reference Range Interpretation Comments UA RBC (test code = 3 See_Comment [Automa shubham message] The UA RBC) system which ge nerated this result transmit shubham reference range : <=2. The reference range was not used to interpr et this result as halina l/abnormal. [facility] [id number] 09:29:00 Test Item Value Reference Range Interpretation Comments UA Mucus (test code = UA Mucus) Few /LPF [facility] - [id number] 08:10:00 Test Item Value Reference Range Interpretation Comments MRSA by PCR (test Negative (11/08/21 2:10 code = MRSA by PCR) AM) [facility] [id number] 08:10:00 Test Item Value Reference Range Interpretation Comments BNP (test code = BNP) 134 [facility] [id number] 08:10:00 Test Item Value Reference Range Interpretation Comments HS Troponin I Baseline (test code = HS 612 Troponin I Baseline) [facility] [id number] 08:10:00 Test Item Value Reference Range Interpretation Comments HS Troponin I 1 Hr (test code = HS 599 Troponin I 1 Hr) [facility] [id number] 08:10:00 Test Item Value Reference Range Interpretation Comments HS Troponin I 0 to 1 Hour Delta (test -13 code = HS Troponin I 0 to 1 Hour Delta) [facility] [id number] 08:10:00 Test Item Value Reference Range Interpretation Comments Procalcitonin Lvl (test 0.05 See_Comment [Au tomated message] code = Procalcitonin Lvl) Th e system which generated this result transmitted ref erence range: <=0.10. The reference range was not used to interpr et this result as normal/abnormal . [facility] NorthwestUfmqqewUPHVDKZBXH3167-72-72 08:10:00 Test Item Value Reference Range Interpretation Comments PT (test code = PT) 17.4 s 12.0-14.7 [place] 475322-02-25 08:10:00 Test Item Value Reference Range Interpretation Comments INR (test code = INR) 1.44 1 0.85-1.17 [place] 475322-02-25 08:10:00 Test Item Value Reference Range Interpretation Comments WBC (test code = WBC) 5.8 3.7-10.4 [facility] NorthwestYsujizkFOSGURUWHP5886-02-34 08:10:00 Test Item Value Reference Range Interpretation Comments RBC (test code = RBC) 4.11 4.20-5.40 [place] 475322-02-25 08:10:00 Test Item Value Reference Range Interpretation Comments Hgb (test code = Hgb) 10.3 12.0-16.0 [place] 475322-02-25 08:10:00 Test Item Value Reference Range Interpretation Comments Hct (test code = Hct) 32.9 36.0-48.0 [place] 475322-02-25 08:10:00 Test Item Value Reference Range Interpretation Comments MCV (test code = MCV) 80.1 80.0-98.0 [place] 475322-02-25 08:10:00 Test Item Value Reference Range Interpretation Comments MCH (test code = MCH) 25.0 pg 27.0-31.0 [place] 475322-02-25 08:10:00 Test Item Value Reference Range Interpretation Comments MCHC (test code = MCHC) 31.2 32.0-36.0 [place] 475322-02-25 08:10:00 Test Item Value Reference Range Interpretation Comments RDW (test code = RDW) 17.6 11.5-14.5 [place] 475322-02-25 08:10:00 Test Item Value Reference Range Interpretation Comments Platelet (test code = Platelet) 269 133-450 [place] 475322-02-25 08:10:00 Test Item Value Reference Range Interpretation Comments MPV (test code = MPV) 7.8 7.4-10.4 [place] 475322-02-25 08:10:00 Test Item Value Reference Range Interpretation Comments Segs (test code = Segs) 72.6 45.0-75.0 [place] 475322-02-25 08:10:00 Test Item Value Reference Range Interpretation Comments Lymphocytes (test code = Lymphocytes) 16.8 20.0-40.0 [place] 475322-02-25 08:10:00 Test Item Value Reference Range Interpretation Comments Monocytes (test code = Monocytes) 9.5 2.0-12.0 [place] [address]-02-25 08:10:00 Test Item Value Reference Range Interpretation Comments Basophils (test code = 1.1 See_Comment [Aut omated message] The Basophils) system which ge nerated this result tra nsmitted reference range : <=1.0. The reference r shin was not used to int erpret this result as normal/abnormal . [facility] NorthwestNxjekraPQBQLSQGTY2811-45-25 08:10:00 Test Item Value Reference Range Interpretation Comments Neutrophils # (test code = Neutrophils 4.2 1.5-8.1 #) [place] 475322-02-25 08:10:00 Test Item Value Reference Range Interpretation Comments Lymphocytes # (test code = Lymphocytes 1.0 1.0-5.5 #) [place] 475322-02-25 08:10:00 Test Item Value Reference Range Interpretation Comments Monocytes # (test code 0.6 See_Comment [Aut omated message] The = Monocytes #) system which generated this result tra nsmitted reference range : <=0.8. The reference r shin was not used to int erpret this result as normal/abnormal . [facility] PasoRyepcqhCBBHDUKFTL6362-72-57 08:10:00 Test Item Value Reference Range Interpretation Comments Basophils # (test code 0.1 See_Comment [Aut omated message] The = Basophils #) system which generated this result tra nsmitted reference range : <=0.2. The reference r shin was not used to int erpret this result as normal/abnormal . [facility] PasoEnSolve BiosystemsBACTERIAL - [id number] 08:10:00 Test Item Value Reference Range Interpretation Comments MRSA by PCR (test Negative (11/08/21 2:10 code = MRSA by PCR) AM) [facility]CARD[facility] [id number] 08:10:00 Test Item Value Reference Range Interpretation Comments BNP (test code = BNP) 134 [facility] PasoEnSolve BiosystemsCARGradient XAC [id number] 08:10:00 Test Item Value Reference Range Interpretation Comments HS Troponin I Baseline (test code = HS 612 Troponin I Baseline) [facility] PasoEnSolve BiosystemsCARDIAC [id number] 08:10:00 Test Item Value Reference Range Interpretation Comments HS Troponin I 1 Hr (test code = HS 599 Troponin I 1 Hr) [facility] PasoEnSolve BiosystemsCARDIAC [id number] 08:10:00 Test Item Value Reference Range Interpretation Comments HS Troponin I 0 to 1 Hour Delta (test -13 code = HS Troponin I 0 to 1 Hour Delta) [facility] PasoEnSolve BiosystemsCHEM [id number] 08:10:00 Test Item Value Reference Range Interpretation Comments Procalcitonin Lvl (test 0.05 See_Comment [Au tomated message] code = Procalcitonin Lvl) Th e system which generated this result transmitted ref erence range: <=0.10. The reference range was not used to interpr et this result as normal/abnormal . [facility] PasoDflcinmADBPMKHEXY2500-56-29 08:10:00 Test Item Value Reference Range Interpretation Comments PT (test code = PT) 17.4 s 12.0-14.7 [facility] PasoPjfmfipYHTIAZMYZU6253-35-03 08:10:00 Test Item Value Reference Range Interpretation Comments INR (test code = INR) 1.44 1 0.85-1.17 [place] 475322-02-25 08:10:00 Test Item Value Reference Range Interpretation Comments WBC (test code = WBC) 5.8 3.7-10.4 [place] 475322-02-25 08:10:00 Test Item Value Reference Range Interpretation Comments RBC (test code = RBC) 4.11 4.20-5.40 [place] 475322-02-25 08:10:00 Test Item Value Reference Range Interpretation Comments Hgb (test code = Hgb) 10.3 12.0-16.0 [place] [address]-02-25 08:10:00 Test Item Value Reference Range Interpretation Comments Hct (test code = Hct) 32.9 36.0-48.0 [place] 475322-02-25 08:10:00 Test Item Value Reference Range Interpretation Comments MCV (test code = MCV) 80.1 80.0-98.0 [place] 475322-02-25 08:10:00 Test Item Value Reference Range Interpretation Comments MCH (test code = MCH) 25.0 pg 27.0-31.0 [place] 475322-02-25 08:10:00 Test Item Value Reference Range Interpretation Comments MCHC (test code = MCHC) 31.2 32.0-36.0 [facility] NorthwestFjjwnrmKLFBARCART0653-17-36 08:10:00 Test Item Value Reference Range Interpretation Comments RDW (test code = RDW) 17.6 11.5-14.5 [place] 475322-02-25 08:10:00 Test Item Value Reference Range Interpretation Comments Platelet (test code = Platelet) 269 133-450 [place] 475322-02-25 08:10:00 Test Item Value Reference Range Interpretation Comments MPV (test code = MPV) 7.8 7.4-10.4 [place] 475322-02-25 08:10:00 Test Item Value Reference Range Interpretation Comments Segs (test code = Segs) 72.6 45.0-75.0 [place] 475322-02-25 08:10:00 Test Item Value Reference Range Interpretation Comments Lymphocytes (test code = Lymphocytes) 16.8 20.0-40.0 [facility]XkqcjtiLVITULIRGO4115-68-[facility] 08:10:00 Test Item Value Reference Range Interpretation Comments Monocytes (test code = Monocytes) 9.5 2.0-12.0 [facility] HospitalYwelbeiPTARUGPTYB6280-95-63 08:10:00 Test Item Value Reference Range Interpretation Comments Basophils (test code = 1.1 See_Comment [Aut omated message] The Basophils) system which ge nerated this result tra nsmitted reference range : <=1.0. The reference r shin was not used to int erpret this result as normal/abnormal . [facility] NorthwestRhinlusPVPKLDBRGQ7307-18-10 08:10:00 Test Item Value Reference Range Interpretation Comments Neutrophils # (test code = Neutrophils 4.2 1.5-8.1 #) [facility] NorthwestDyzvhicZUZXPWZACH4075-19-86 08:10:00 Test Item Value Reference Range Interpretation Comments Lymphocytes # (test code = Lymphocytes 1.0 1.0-5.5 #) [facility] NorthwestVtsmugyYCIACJMAZL5067-38-16 08:10:00 Test Item Value Reference Range Interpretation Comments Monocytes # (test code 0.6 See_Comment [Aut omated message] The = Monocytes #) system which generated this result tra nsmitted reference range : <=0.8. The reference r shin was not used to int erpret this result as normal/abnormal . [facility] NorthwestAkoczvnORMSHYTNEY2303-47-85 08:10:00 Test Item Value Reference Range Interpretation Comments Basophils # (test code 0.1 See_Comment [Aut omated message] The = Basophils #) system which generated this result tra nsmitted reference range : <=0.2. The reference r shin was not used to int erpret this result as normal/abnormal . [facility]BACT[facility] - [id number] 08:10:00 Test Item Value Reference Range Interpretation Comments MRSA by PCR (test Negative (11/08/21 2:10 code = MRSA by PCR) AM) [facility]CARD[facility] [id number] 08:10:00 Test Item Value Reference Range Interpretation Comments BNP (test code = BNP) 134 [facility] [id number] 08:10:00 Test Item Value Reference Range Interpretation Comments HS Troponin I Baseline (test code = HS 612 Troponin I Baseline) [facility] [id number] 08:10:00 Test Item Value Reference Range Interpretation Comments HS Troponin I 1 Hr (test code = HS 599 Troponin I 1 Hr) [facility]AC [id number] 08:10:00 Test Item Value Reference Range Interpretation Comments HS Troponin I 0 to 1 Hour Delta (test -13 code = HS Troponin I 0 to 1 Hour Delta) [facility] HospitalCHEM [id number] 08:10:00 Test Item Value Reference Range Interpretation Comments Procalcitonin Lvl (test 0.05 See_Comment [Au tomated message] code = Procalcitonin Lvl) Th e system which generated this result transmitted ref erence range: <=0.10. The reference range was not used to interpr et this result as normal/abnormal . [facility] NorthwestGquooltISPMCJYEWS3631-74-43 08:10:00 Test Item Value Reference Range Interpretation Comments PT (test code = PT) 17.4 s 12.0-14.7 [facility] NorthwestQdeszyyRTICCILSXV3171-56-91 08:10:00 Test Item Value Reference Range Interpretation Comments INR (test code = INR) 1.44 1 0.85-1.17 [facility] NorthwestWhkpyniQUJQXRHUDI6514-27-02 08:10:00 Test Item Value Reference Range Interpretation Comments WBC (test code = WBC) 5.8 3.7-10.4 [facility] NorthwestCvvmbnvQCRCNZPOJA0291-78-45 08:10:00 Test Item Value Reference Range Interpretation Comments RBC (test code = RBC) 4.11 4.20-5.40 [facility] NorthwestAxricqiSERDJIXFMS2267-03-05 08:10:00 Test Item Value Reference Range Interpretation Comments Hgb (test code = Hgb) 10.3 12.0-16.0 [facility] NorthwestLllrtjpQYICFKNQUB3727-94-99 08:10:00 Test Item Value Reference Range Interpretation Comments Hct (test code = Hct) 32.9 36.0-48.0 [facility] NorthwestDtcuunxEVVZTMDYTH5823-73-69 08:10:00 Test Item Value Reference Range Interpretation Comments MCV (test code = MCV) 80.1 80.0-98.0 [facility] HospitalJsejdraCUQFWRCRGU8031-73-29 08:10:00 Test Item Value Reference Range Interpretation Comments MCH (test code = MCH) 25.0 pg 27.0-31.0 [place] [address]-02-25 08:10:00 Test Item Value Reference Range Interpretation Comments MCHC (test code = MCHC) 31.2 32.0-36.0 [place] 475322-02-25 08:10:00 Test Item Value Reference Range Interpretation Comments RDW (test code = RDW) 17.6 11.5-14.5 [place] 475322-02-25 08:10:00 Test Item Value Reference Range Interpretation Comments Platelet (test code = Platelet) 269 133-450 [place] 475322-02-25 08:10:00 Test Item Value Reference Range Interpretation Comments MPV (test code = MPV) 7.8 7.4-10.4 [place] [address]-02-25 08:10:00 Test Item Value Reference Range Interpretation Comments Segs (test code = Segs) 72.6 45.0-75.0 [place] [address]-02-25 08:10:00 Test Item Value Reference Range Interpretation Comments Lymphocytes (test code = Lymphocytes) 16.8 20.0-40.0 [place] [address]-02-25 08:10:00 Test Item Value Reference Range Interpretation Comments Monocytes (test code = Monocytes) 9.5 2.0-12.0 [place] [address]-02-25 08:10:00 Test Item Value Reference Range Interpretation Comments Basophils (test code = 1.1 See_Comment [Aut omated message] The Basophils) system which ge nerated this result tra nsmitted reference range : <=1.0. The reference r shin was not used to int erpret this result as normal/abnormal . [place] 475322-02-25 08:10:00 Test Item Value Reference Range Interpretation Comments Neutrophils # (test code = Neutrophils 4.2 1.5-8.1 #) [place] [address]-02-25 08:10:00 Test Item Value Reference Range Interpretation Comments Lymphocytes # (test code = Lymphocytes 1.0 1.0-5.5 #) [place] [address]-02-25 08:10:00 Test Item Value Reference Range Interpretation Comments Monocytes # (test code 0.6 See_Comment [Aut omated message] The = Monocytes #) system which generated this result tra nsmitted reference range : <=0.8. The reference r shin was not used to int erpret this result as normal/abnormal . [facility] NorthwestHaanhikOIACVILFDK0518-17-32 08:10:00 Test Item Value Reference Range Interpretation Comments Basophils # (test code 0.1 See_Comment [Aut omated message] The = Basophils #) system which generated this result tra nsmitted reference range : <=0.2. The reference r hsin was not used to int erpret this result as normal/abnormal . [facility] HospitaleTimesheets.comWAKEM[facility] [id number] 16:36:00 Test Item Value Reference Range Interpretation Comments Result 2 (Urine Culture) See Result Comment (test code = Result 2 (Urine Culture)) [facility] [id number] 16:36:00 Test Item Value Reference Range Interpretation Comments Result 2 (Urine Culture) See Result Comment (test code = Result 2 (Urine Culture)) [facility] [id number] 16:36:00 Test Item Value Reference Range Interpretation Comments Result 2 (Urine Culture) See Result Comment (test code = Result 2 (Urine Culture)) [facility] NorthwestEppvhqxUJBPXCLTSE9916-07-38 10:23:00 Test Item Value Reference Range Interpretation Comments WBC (test code = WBC) 6.8 3.7-10.4 [facility] NorthwestRdqhndxQNNKZHDXIA8280-62-72 10:23:00 Test Item Value Reference Range Interpretation Comments RBC (test code = RBC) 3.46 4.20-5.40 [facility] NorthwestLryorhmDDNWXLTWCG1590-67-69 10:23:00 Test Item Value Reference Range Interpretation Comments Hgb (test code = Hgb) 9.1 12.0-16.0 [facility] HospitalMbamjmtWHUQLIFBQX0868-88-91 10:23:00 Test Item Value Reference Range Interpretation Comments Hct (test code = Hct) 28.9 36.0-48.0 [facility] HospitalGvkylxiXSREGNNDMU2768-91-58 10:23:00 Test Item Value Reference Range Interpretation Comments MCV (test code = MCV) 83.6 80.0-98.0 [facility] NorthwestBogebofQGVLJGHXYO5967-53-71 10:23:00 Test Item Value Reference Range Interpretation Comments MCH (test code = MCH) 26.4 pg 27.0-31.0 [facility] NorthwestSgeccveIIRJNIQCXQ9499-95-27 10:23:00 Test Item Value Reference Range Interpretation Comments MCHC (test code = MCHC) 31.6 32.0-36.0 [facility] NorthwestHjkjxwaBRMBAMDVVE1714-38-05 10:23:00 Test Item Value Reference Range Interpretation Comments RDW (test code = RDW) 18.2 11.5-14.5 [facility] NorthwestQyijsbxDLXYYTCZCF9661-08-21 10:23:00 Test Item Value Reference Range Interpretation Comments Platelet (test code = Platelet) 400 133-450 [facility] NorthwestMjdjlwsYZKDAIKAXK8172-77-78 10:23:00 Test Item Value Reference Range Interpretation Comments MPV (test code = MPV) 7.2 7.4-10.4 [facility] NorthwestLqeqextEYDASJIMCG2645-60-40 10:23:00 Test Item Value Reference Range Interpretation Comments WBC (test code = WBC) 6.8 3.7-10.4 [facility] NorthwestFquqasqNGPMVDZLCX2565-78-90 10:23:00 Test Item Value Reference Range Interpretation Comments RBC (test code = RBC) 3.46 4.20-5.40 [facility] NorthwestTjncsbkZLQREKLQAN2446-08-17 10:23:00 Test Item Value Reference Range Interpretation Comments Hgb (test code = Hgb) 9.1 12.0-16.0 [facility] NorthwestBeccupnOBSRJFXUTQ3486-38-43 10:23:00 Test Item Value Reference Range Interpretation Comments Hct (test code = Hct) 28.9 36.0-48.0 [facility] NorthwestDaejjmpZNURPUEKRA3908-82-33 10:23:00 Test Item Value Reference Range Interpretation Comments MCV (test code = MCV) 83.6 80.0-98.0 [facility] NorthwestMhrkslhLTNNLVVTTB9639-20-27 10:23:00 Test Item Value Reference Range Interpretation Comments MCH (test code = MCH) 26.4 pg 27.0-31.0 [facility] NorthwestSsoccoaAJAGQPXUSJ1100-75-57 10:23:00 Test Item Value Reference Range Interpretation Comments MCHC (test code = MCHC) 31.6 32.0-36.0 [facility] NorthwestJytbvpqNRRCIEUTKI9947-39-76 10:23:00 Test Item Value Reference Range Interpretation Comments RDW (test code = RDW) 18.2 11.5-14.5 [place] [address]322-02-08 10:23:00 Test Item Value Reference Range Interpretation Comments Platelet (test code = Platelet) 400 133-450 [facility] NorthwestGvumpiiFUZEVVIJDX1068-82-77 10:23:00 Test Item Value Reference Range Interpretation Comments MPV (test code = MPV) 7.2 7.4-10.4 [facility] NorthwestHxooeqgBMCONBZFNS0157-21-03 10:23:00 Test Item Value Reference Range Interpretation Comments WBC (test code = WBC) 6.8 3.7-10.4 [facility] NorthwestUuitbfzWGYXGPSJNN6514-79-28 10:23:00 Test Item Value Reference Range Interpretation Comments RBC (test code = RBC) 3.46 4.20-5.40 [facility] NorthwestCctbeohOMFRFDEFGZ7977-14-80 10:23:00 Test Item Value Reference Range Interpretation Comments Hgb (test code = Hgb) 9.1 12.0-16.0 [facility] NorthwestAxgigidFQWFOPMPJD6545-25-75 10:23:00 Test Item Value Reference Range Interpretation Comments Hct (test code = Hct) 28.9 36.0-48.0 [facility] NorthwestHsojeagWAPGTHXGRG6693-87-67 10:23:00 Test Item Value Reference Range Interpretation Comments MCV (test code = MCV) 83.6 80.0-98.0 [facility] NorthwestOolhfgsJCRUBHHAJO5454-94-34 10:23:00 Test Item Value Reference Range Interpretation Comments MCH (test code = MCH) 26.4 pg 27.0-31.0 [facility] NorthwestEqlaixeANIJHHYSLN7770-99-12 10:23:00 Test Item Value Reference Range Interpretation Comments MCHC (test code = MCHC) 31.6 32.0-36.0 [facility] NorthwestOhjoeclNQQCRKSUFQ2866-33-32 10:23:00 Test Item Value Reference Range Interpretation Comments RDW (test code = RDW) 18.2 11.5-14.5 [facility] NorthwestTywchlzGGYQVUFHCS5442-54-27 10:23:00 Test Item Value Reference Range Interpretation Comments Platelet (test code = Platelet) 400 133-450 [facility] NorthwestEskruqbPQHDOOFYXV0549-47-62 10:23:00 Test Item Value Reference Range Interpretation Comments MPV (test code = MPV) 7.2 7.4-10.4 [facility]2022-02-07 10:52:00 Test Item Value Reference Range Interpretation Comments Glucose Lvl (test code = Glucose Lvl) 96 70-99 [facility]2022-02-07 10:52:00 Test Item Value Reference Range Interpretation Comments BUN (test code = BUN) 11 7-22 [place] 720082-02-07 10:52:00 Test Item Value Reference Range Interpretation Comments Creatinine Lvl (test code = Creatinine 0.89 0.50-1.40 Lvl) [facility]2022-02-07 10:52:00 Test Item Value Reference Range Interpretation Comments Sodium Lvl (test code = Sodium Lvl) 138 135-145 [place] 720082-02-07 10:52:00 Test Item Value Reference Range Interpretation Comments Potassium Lvl (test code = Potassium 4.0 3.5-5.1 Lvl) [place] 720082-02-07 10:52:00 Test Item Value Reference Range Interpretation Comments Chloride Lvl (test code = Chloride Lvl) 102 95-109 [facility]2022-02-07 10:52:00 Test Item Value Reference Range Interpretation Comments CO2 (test code = CO2) 32 24-32 [facility]2022-02-07 10:52:00 Test Item Value Reference Range Interpretation Comments AGAP (test code = AGAP) 8.0 10.0-20.0 [facility]2022-02-07 10:52:00 Test Item Value Reference Range Interpretation Comments Calcium Lvl (test code = Calcium Lvl) 8.2 8.5-10.5 [place] 720082-02-07 10:52:00 Test Item Value Reference Range Interpretation Comments B/C Ratio (test code = B/C Ratio) 12 1 6-25 [facility]2022-02-07 10:52:00 Test Item Value Reference Range Interpretation Comments Total Protein (test code = Total 5.9 6.4-8.4 Protein) [facility]2022-02-07 10:52:00 Test Item Value Reference Range Interpretation Comments ALT (test code = ALT) 19 See_Comment [Auto mated message] The system which ge nerated this result transmit shubham reference range : <=65. The reference range was not used to interpr et this result as halina l/abnormal. [facility] [id number] 10:52:00 Test Item Value Reference Range Interpretation Comments AST (test code = AST) 11 See_Comment [Auto mated message] The system which ge nerated this result transmit shubham reference range : <=37. The reference range was not used to interpr et this result as halina l/abnormal. [facility]2022-02-07 10:52:00 Test Item Value Reference Range Interpretation Comments Alk Phos (test code = Alk Phos) 99 39-136 [place] 720082-02-07 10:52:00 Test Item Value Reference Range Interpretation Comments Bili Total (test code = Bili Total) 0.3 0.2-1.3 [place] 720082-02-07 10:52:00 Test Item Value Reference Range Interpretation Comments eGFR (test code = eGFR) 63 [facility]2022-02-07 10:52:00 Test Item Value Reference Range Interpretation Comments Albumin Lvl (test code = Albumin Lvl) 2.2 3.5-5.0 [place] 720082-02-07 10:52:00 Test Item Value Reference Range Interpretation Comments Globulin (test code = Globulin) 3.7 2.7-4.2 [facility]2022-02-07 10:52:00 Test Item Value Reference Range Interpretation Comments A/G Ratio (test code = A/G Ratio) 0.6 1 0.7-1.6 [facility]2022-02-07 10:52:00 Test Item Value Reference Range Interpretation Comments Glucose Lvl (test code = Glucose Lvl) 96 70-99 [facility]2022-02-07 10:52:00 Test Item Value Reference Range Interpretation Comments BUN (test code = BUN) 11 7-22 [place] 720082-02-07 10:52:00 Test Item Value Reference Range Interpretation Comments Creatinine Lvl (test code = Creatinine 0.89 0.50-1.40 Lvl) [place] 720082-02-07 10:52:00 Test Item Value Reference Range Interpretation Comments Sodium Lvl (test code = Sodium Lvl) 138 135-145 [place] 720082-02-07 10:52:00 Test Item Value Reference Range Interpretation Comments Potassium Lvl (test code = Potassium 4.0 3.5-5.1 Lvl) [place] 720082-02-07 10:52:00 Test Item Value Reference Range Interpretation Comments Chloride Lvl (test code = Chloride Lvl) 102 95-109 [place] 720082-02-07 10:52:00 Test Item Value Reference Range Interpretation Comments CO2 (test code = CO2) 32 24-32 [facility]2022-02-07 10:52:00 Test Item Value Reference Range Interpretation Comments AGAP (test code = AGAP) 8.0 10.0-20.0 [facility]2022-02-07 10:52:00 Test Item Value Reference Range Interpretation Comments Calcium Lvl (test code = Calcium Lvl) 8.2 8.5-10.5 [facility]2022-02-07 10:52:00 Test Item Value Reference Range Interpretation Comments B/C Ratio (test code = B/C Ratio) 12 1 6-25 [place] 720082-02-07 10:52:00 Test Item Value Reference Range Interpretation Comments Total Protein (test code = Total 5.9 6.4-8.4 Protein) [facility]2022-02-07 10:52:00 Test Item Value Reference Range Interpretation Comments ALT (test code = ALT) 19 See_Comment [Auto mated message] The system which ge nerated this result transmit shubham reference range : <=65. The reference range was not used to interpr et this result as halina l/abnormal. [facility]2022-02-07 10:52:00 Test Item Value Reference Range Interpretation Comments AST (test code = AST) 11 See_Comment [Auto mated message] The system which ge nerated this result transmit shubham reference range : <=37. The reference range was not used to interpr et this result as halina l/abnormal. [place] 720082-02-07 10:52:00 Test Item Value Reference Range Interpretation Comments Alk Phos (test code = Alk Phos) 99 39-136 [facility]2022-02-07 10:52:00 Test Item Value Reference Range Interpretation Comments Bili Total (test code = Bili Total) 0.3 0.2-1.3 [place] 720082-02-07 10:52:00 Test Item Value Reference Range Interpretation Comments eGFR (test code = eGFR) 63 [facility]2022-02-07 10:52:00 Test Item Value Reference Range Interpretation Comments Albumin Lvl (test code = Albumin Lvl) 2.2 3.5-5.0 [facility]2022-02-07 10:52:00 Test Item Value Reference Range Interpretation Comments Globulin (test code = Globulin) 3.7 2.7-4.2 [place] 720082-02-07 10:52:00 Test Item Value Reference Range Interpretation Comments A/G Ratio (test code = A/G Ratio) 0.6 1 0.7-1.6 [place] 720082-02-07 10:52:00 Test Item Value Reference Range Interpretation Comments Glucose Lvl (test code = Glucose Lvl) 96 70-99 [facility]2022-02-07 10:52:00 Test Item Value Reference Range Interpretation Comments BUN (test code = BUN) 11 7-22 [place] 720082-02-07 10:52:00 Test Item Value Reference Range Interpretation Comments Creatinine Lvl (test code = Creatinine 0.89 0.50-1.40 Lvl) [facility]2022-02-07 10:52:00 Test Item Value Reference Range Interpretation Comments Sodium Lvl (test code = Sodium Lvl) 138 135-145 [facility]2022-02-07 10:52:00 Test Item Value Reference Range Interpretation Comments Potassium Lvl (test code = Potassium 4.0 3.5-5.1 Lvl) [facility]2022-02-07 10:52:00 Test Item Value Reference Range Interpretation Comments Chloride Lvl (test code = Chloride Lvl) 102 95-109 [place] 720082-02-07 10:52:00 Test Item Value Reference Range Interpretation Comments CO2 (test code = CO2) 32 24-32 [place] 720082-02-07 10:52:00 Test Item Value Reference Range Interpretation Comments AGAP (test code = AGAP) 8.0 10.0-20.0 [facility]2022-02-07 10:52:00 Test Item Value Reference Range Interpretation Comments Calcium Lvl (test code = Calcium Lvl) 8.2 8.5-10.5 [place] 720082-02-07 10:52:00 Test Item Value Reference Range Interpretation Comments B/C Ratio (test code = B/C Ratio) 12 1 6-25 [facility] [id number] 10:52:00 Test Item Value Reference Range Interpretation Comments Total Protein (test code = Total 5.9 6.4-8.4 Protein) [facility] [id number] 10:52:00 Test Item Value Reference Range Interpretation Comments ALT (test code = ALT) 19 See_Comment [Auto mated message] The system which ge nerated this result transmit shubham reference range : <=65. The reference range was not used to interpr et this result as halina l/abnormal. [facility] [id number] 10:52:00 Test Item Value Reference Range Interpretation Comments AST (test code = AST) 11 See_Comment [Auto mated message] The system which ge nerated this result transmit shubham reference range : <=37. The reference range was not used to interpr et this result as halina l/abnormal. [facility] [id number] 10:52:00 Test Item Value Reference Range Interpretation Comments Alk Phos (test code = Alk Phos) 99 39-136 [facility] [id number] 10:52:00 Test Item Value Reference Range Interpretation Comments Bili Total (test code = Bili Total) 0.3 0.2-1.3 [facility] [id number] 10:52:00 Test Item Value Reference Range Interpretation Comments eGFR (test code = eGFR) 63 [facility] [id number] 10:52:00 Test Item Value Reference Range Interpretation Comments Albumin Lvl (test code = Albumin Lvl) 2.2 3.5-5.0 [facility] [id number] 10:52:00 Test Item Value Reference Range Interpretation Comments Globulin (test code = Globulin) 3.7 2.7-4.2 [facility] Pen[facility] K Murphy [id number] 10:52:00 Test Item Value Reference Range Interpretation Comments A/G Ratio (test code = A/G Ratio) 0.6 1 0.7-1.6 [facility] K [facility] [id number] 10:05:00 Test Item Value Reference Range Interpretation Comments Glucose Lvl (test code = Glucose Lvl) 116 70-99 [facility] K Murphy [id number] 10:05:00 Test Item Value Reference Range Interpretation Comments BUN (test code = BUN) 13 7-22 [facility]2022-02-06 10:05:00 Test Item Value Reference Range Interpretation Comments Creatinine Lvl (test code = Creatinine 0.95 0.50-1.40 Lvl) [facility]2022-02-06 10:05:00 Test Item Value Reference Range Interpretation Comments Sodium Lvl (test code = Sodium Lvl) 138 135-145 [facility]2022-02-06 10:05:00 Test Item Value Reference Range Interpretation Comments Potassium Lvl (test code = Potassium 3.9 3.5-5.1 Lvl) [facility]2022-02-06 10:05:00 Test Item Value Reference Range Interpretation Comments Chloride Lvl (test code = Chloride Lvl) 101 95-109 [facility]2022-02-06 10:05:00 Test Item Value Reference Range Interpretation Comments CO2 (test code = CO2) 32 24-32 [facility]2022-02-06 10:05:00 Test Item Value Reference Range Interpretation Comments AGAP (test code = AGAP) 8.9 10.0-20.0 [facility]2022-02-06 10:05:00 Test Item Value Reference Range Interpretation Comments Calcium Lvl (test code = Calcium Lvl) 8.4 8.5-10.5 [facility]2022-02-06 10:05:00 Test Item Value Reference Range Interpretation Comments eGFR (test code = eGFR) 58 [id number] 10:05:00 Test Item Value Reference Range Interpretation Comments WBC (test code = WBC) 8.2 3.7-10.4 [place] 475322-02-06 10:05:00 Test Item Value Reference Range Interpretation Comments RBC (test code = RBC) 3.43 4.20-5.40 [place] 475322-02-06 10:05:00 Test Item Value Reference Range Interpretation Comments Hgb (test code = Hgb) 9.1 12.0-16.0 [place] 475322-02-06 10:05:00 Test Item Value Reference Range Interpretation Comments Hct (test code = Hct) 28.5 36.0-48.0 [place] 475322-02-06 10:05:00 Test Item Value Reference Range Interpretation Comments MCV (test code = MCV) 83.0 80.0-98.0 [place] 475322-02-06 10:05:00 Test Item Value Reference Range Interpretation Comments MCH (test code = MCH) 26.7 pg 27.0-31.0 [place] 475322-02-06 10:05:00 Test Item Value Reference Range Interpretation Comments MCHC (test code = MCHC) 32.1 32.0-36.0 [place] 475322-02-06 10:05:00 Test Item Value Reference Range Interpretation Comments RDW (test code = RDW) 17.9 11.5-14.5 [place] 475322-02-06 10:05:00 Test Item Value Reference Range Interpretation Comments Platelet (test code = Platelet) 376 666-450 [facility] NorthwestBwvpjxyMAVDAEHZZG6543-34-55 10:05:00 Test Item Value Reference Range Interpretation Comments MPV (test code = MPV) 7.0 7.4-10.4 [facility]2022-02-06 10:05:00 Test Item Value Reference Range Interpretation Comments Glucose Lvl (test code = Glucose Lvl) 116 70-99 [facility]2022-02-06 10:05:00 Test Item Value Reference Range Interpretation Comments BUN (test code = BUN) 13 7-22 [facility]2022-02-06 10:05:00 Test Item Value Reference Range Interpretation Comments Creatinine Lvl (test code = Creatinine 0.95 0.50-1.40 Lvl) [facility]2022-02-06 10:05:00 Test Item Value Reference Range Interpretation Comments Sodium Lvl (test code = Sodium Lvl) 138 135-145 [facility]2022-02-06 10:05:00 Test Item Value Reference Range Interpretation Comments Potassium Lvl (test code = Potassium 3.9 3.5-5.1 Lvl) [facility]2022-02-06 10:05:00 Test Item Value Reference Range Interpretation Comments Chloride Lvl (test code = Chloride Lvl) 101 95-109 [facility]2022-02-06 10:05:00 Test Item Value Reference Range Interpretation Comments CO2 (test code = CO2) 32 24-32 [facility] [id number] 10:05:00 Test Item Value Reference Range Interpretation Comments AGAP (test code = AGAP) 8.9 10.0-20.0 [facility] [id number] 10:05:00 Test Item Value Reference Range Interpretation Comments Calcium Lvl (test code = Calcium Lvl) 8.4 8.5-10.5 [facility] [id number] 10:05:00 Test Item Value Reference Range Interpretation Comments eGFR (test code = eGFR) 58 [facility] NorthwestVcwzlloNCERFBVPSL2119-33-69 10:05:00 Test Item Value Reference Range Interpretation Comments WBC (test code = WBC) 8.2 3.7-10.4 [facility] NorthwestHsilxryPVKJYMVSSN1907-53-07 10:05:00 Test Item Value Reference Range Interpretation Comments RBC (test code = RBC) 3.43 4.20-5.40 [facility] NorthwestWbvstuoCYDVNFSGVP7753-69-95 10:05:00 Test Item Value Reference Range Interpretation Comments Hgb (test code = Hgb) 9.1 12.0-16.0 [facility] NorthwestPieumswXTZFRANABA2390-67-72 10:05:00 Test Item Value Reference Range Interpretation Comments Hct (test code = Hct) 28.5 36.0-48.0 [facility] NorthwestRjlkroqIJVSGNYZVL6571-90-98 10:05:00 Test Item Value Reference Range Interpretation Comments MCV (test code = MCV) 83.0 80.0-98.0 [facility] NorthwestLjsnhofMCBYKQKZVK4331-44-63 10:05:00 Test Item Value Reference Range Interpretation Comments MCH (test code = MCH) 26.7 pg 27.0-31.0 [facility] NorthwestOwlsxdrCNSZWDMPCM0306-53-99 10:05:00 Test Item Value Reference Range Interpretation Comments MCHC (test code = MCHC) 32.1 32.0-36.0 [facility] NorthwestRevvlnxRKAZOFOBNN1827-75-14 10:05:00 Test Item Value Reference Range Interpretation Comments RDW (test code = RDW) 17.9 11.5-14.5 [facility] NorthwestOervkpeXFFOUMBGWK1681-42-90 10:05:00 Test Item Value Reference Range Interpretation Comments Platelet (test code = Platelet) 376 133-450 [facility] NorthwestQlelzwnJNDGEVTOLV8140-58-48 10:05:00 Test Item Value Reference Range Interpretation Comments MPV (test code = MPV) 7.0 7.4-10.4 [facility]2022-02-06 10:05:00 Test Item Value Reference Range Interpretation Comments Glucose Lvl (test code = Glucose Lvl) 116 70-99 [facility]2022-02-06 10:05:00 Test Item Value Reference Range Interpretation Comments BUN (test code = BUN) 13 7-22 [facility]2022-02-06 10:05:00 Test Item Value Reference Range Interpretation Comments Creatinine Lvl (test code = Creatinine 0.95 0.50-1.40 Lvl) [facility]2022-02-06 10:05:00 Test Item Value Reference Range Interpretation Comments Sodium Lvl (test code = Sodium Lvl) 138 135-145 [facility]2022-02-06 10:05:00 Test Item Value Reference Range Interpretation Comments Potassium Lvl (test code = Potassium 3.9 3.5-5.1 Lvl) [facility]2022-02-06 10:05:00 Test Item Value Reference Range Interpretation Comments Chloride Lvl (test code = Chloride Lvl) 101 95-109 [facility]2022-02-06 10:05:00 Test Item Value Reference Range Interpretation Comments CO2 (test code = CO2) 32 24-32 [facility]2022-02-06 10:05:00 Test Item Value Reference Range Interpretation Comments AGAP (test code = AGAP) 8.9 10.0-20.0 [facility]2022-02-06 10:05:00 Test Item Value Reference Range Interpretation Comments Calcium Lvl (test code = Calcium Lvl) 8.4 8.5-10.5 [facility]2022-02-06 10:05:00 Test Item Value Reference Range Interpretation Comments eGFR (test code = eGFR) 58 [facility] NorthwestEqiardgATXIUEPGAU7593-29-83 10:05:00 Test Item Value Reference Range Interpretation Comments WBC (test code = WBC) 8.2 3.7-10.4 [facility] NorthwestZhvbxdvDHDCPKBQRH3916-94-29 10:05:00 Test Item Value Reference Range Interpretation Comments RBC (test code = RBC) 3.43 4.20-5.40 [place] 475322-02-06 10:05:00 Test Item Value Reference Range Interpretation Comments Hgb (test code = Hgb) 9.1 12.0-16.0 [place] 475322-02-06 10:05:00 Test Item Value Reference Range Interpretation Comments Hct (test code = Hct) 28.5 36.0-48.0 [place] 475322-02-06 10:05:00 Test Item Value Reference Range Interpretation Comments MCV (test code = MCV) 83.0 80.0-98.0 [place] 475322-02-06 10:05:00 Test Item Value Reference Range Interpretation Comments MCH (test code = MCH) 26.7 pg 27.0-31.0 [facility] NorthwestCydltnqGJPCLZDTKQ1214-80-04 10:05:00 Test Item Value Reference Range Interpretation Comments MCHC (test code = MCHC) 32.1 32.0-36.0 [facility] NorthwestWmcpuhgLTYFUBNHCC8145-62-48 10:05:00 Test Item Value Reference Range Interpretation Comments RDW (test code = RDW) 17.9 11.5-14.5 [place] 475322-02-06 10:05:00 Test Item Value Reference Range Interpretation Comments Platelet (test code = Platelet) 376 133-450 [facility] NorthwestYiqjtpoZLSKMPVUCI2718-99-13 10:05:00 Test Item Value Reference Range Interpretation Comments MPV (test code = MPV) 7.0 7.4-10.4 [facility]2022-02-05 11:10:00 Test Item Value Reference Range Interpretation Comments Glucose Lvl (test code = Glucose Lvl) 109 70-99 [facility]2022-02-05 11:10:00 Test Item Value Reference Range Interpretation Comments BUN (test code = BUN) 14 7-22 [facility]2022-02-05 11:10:00 Test Item Value Reference Range Interpretation Comments Creatinine Lvl (test code = Creatinine 0.92 0.50-1.40 Lvl) [facility]2022-02-05 11:10:00 Test Item Value Reference Range Interpretation Comments Sodium Lvl (test code = Sodium Lvl) 139 135-145 [facility]2022-02-05 11:10:00 Test Item Value Reference Range Interpretation Comments Potassium Lvl (test code = Potassium 3.7 3.5-5.1 Lvl) [place] 720082-02-05 11:10:00 Test Item Value Reference Range Interpretation Comments Chloride Lvl (test code = Chloride Lvl) 103 95-109 [place] 720082-02-05 11:10:00 Test Item Value Reference Range Interpretation Comments CO2 (test code = CO2) 31 24-32 [place] 720082-02-05 11:10:00 Test Item Value Reference Range Interpretation Comments Calcium Lvl (test code = Calcium Lvl) 8.2 8.5-10.5 [place] 720082-02-05 11:10:00 Test Item Value Reference Range Interpretation Comments AGAP (test code = AGAP) 8.7 10.0-20.0 [place] 720082-02-05 11:10:00 Test Item Value Reference Range Interpretation Comments eGFR (test code = eGFR) 60 [place] 475322-02-05 11:10:00 Test Item Value Reference Range Interpretation Comments WBC (test code = WBC) 7.2 3.7-10.4 [place] 475322-02-05 11:10:00 Test Item Value Reference Range Interpretation Comments RBC (test code = RBC) 3.30 4.20-5.40 [place] 475322-02-05 11:10:00 Test Item Value Reference Range Interpretation Comments Hgb (test code = Hgb) 8.7 12.0-16.0 [place] 475322-02-05 11:10:00 Test Item Value Reference Range Interpretation Comments Hct (test code = Hct) 27.7 36.0-48.0 [place] 475322-02-05 11:10:00 Test Item Value Reference Range Interpretation Comments MCV (test code = MCV) 84.0 80.0-98.0 [place] 475322-02-05 11:10:00 Test Item Value Reference Range Interpretation Comments MCH (test code = MCH) 26.4 pg 27.0-31.0 [place] 475322-02-05 11:10:00 Test Item Value Reference Range Interpretation Comments MCHC (test code = MCHC) 31.4 32.0-36.0 [address]02-05 11:10:00 Test Item Value Reference Range Interpretation Comments RDW (test code = RDW) 17.9 11.5-14.5 [place] 475322-02-05 11:10:00 Test Item Value Reference Range Interpretation Comments Platelet (test code = Platelet) 328 133-450 [place] 475322-02-05 11:10:00 Test Item Value Reference Range Interpretation Comments MPV (test code = MPV) 7.2 7.4-10.4 [facility]2022-02-05 11:10:00 Test Item Value Reference Range Interpretation Comments Glucose Lvl (test code = Glucose Lvl) 109 70-99 [place] 720082-02-05 11:10:00 Test Item Value Reference Range Interpretation Comments BUN (test code = BUN) 14 7-22 [place] 720082-02-05 11:10:00 Test Item Value Reference Range Interpretation Comments Creatinine Lvl (test code = Creatinine 0.92 0.50-1.40 Lvl) [facility]2022-02-05 11:10:00 Test Item Value Reference Range Interpretation Comments Sodium Lvl (test code = Sodium Lvl) 139 135-145 [place] 720082-02-05 11:10:00 Test Item Value Reference Range Interpretation Comments Potassium Lvl (test code = Potassium 3.7 3.5-5.1 Lvl) [facility]2022-02-05 11:10:00 Test Item Value Reference Range Interpretation Comments Chloride Lvl (test code = Chloride Lvl) 103 95-109 [place] 720082-02-05 11:10:00 Test Item Value Reference Range Interpretation Comments CO2 (test code = CO2) 31 24-32 [place] 720082-02-05 11:10:00 Test Item Value Reference Range Interpretation Comments Calcium Lvl (test code = Calcium Lvl) 8.2 8.5-10.5 [place] 720082-02-05 11:10:00 Test Item Value Reference Range Interpretation Comments AGAP (test code = AGAP) 8.7 10.0-20.0 [place] 720082-02-05 11:10:00 Test Item Value Reference Range Interpretation Comments eGFR (test code = eGFR) 60 [facility] NorthwestNgzuehgRAHWGDIARJ5217-30-37 11:10:00 Test Item Value Reference Range Interpretation Comments WBC (test code = WBC) 7.2 3.7-10.4 [place] 475322-02-05 11:10:00 Test Item Value Reference Range Interpretation Comments RBC (test code = RBC) 3.30 4.20-5.40 [place] 475322-02-05 11:10:00 Test Item Value Reference Range Interpretation Comments Hgb (test code = Hgb) 8.7 12.0-16.0 [place] 475322-02-05 11:10:00 Test Item Value Reference Range Interpretation Comments Hct (test code = Hct) 27.7 36.0-48.0 [place] 475322-02-05 11:10:00 Test Item Value Reference Range Interpretation Comments MCV (test code = MCV) 84.0 80.0-98.0 [place] 475322-02-05 11:10:00 Test Item Value Reference Range Interpretation Comments MCH (test code = MCH) 26.4 pg 27.0-31.0 [facility] NorthwestYdhuvldNXUHGWVDKB6697-27-69 11:10:00 Test Item Value Reference Range Interpretation Comments MCHC (test code = MCHC) 31.4 32.0-36.0 [facility] NorthwestLdcfcawAQWCMDGNSB4852-13-06 11:10:00 Test Item Value Reference Range Interpretation Comments RDW (test code = RDW) 17.9 11.5-14.5 [facility] NorthwestAzbpskbPFPOBKGAHO0557-63-27 11:10:00 Test Item Value Reference Range Interpretation Comments Platelet (test code = Platelet) 328 133-450 [facility] NorthwestWfsooiaZJQTJVXGFF6170-16-54 11:10:00 Test Item Value Reference Range Interpretation Comments MPV (test code = MPV) 7.2 7.4-10.4 [facility]2022-02-05 11:10:00 Test Item Value Reference Range Interpretation Comments Glucose Lvl (test code = Glucose Lvl) 109 70-99 [facility]2022-02-05 11:10:00 Test Item Value Reference Range Interpretation Comments BUN (test code = BUN) 14 7-22 [place] 720082-02-05 11:10:00 Test Item Value Reference Range Interpretation Comments Creatinine Lvl (test code = Creatinine 0.92 0.50-1.40 Lvl) [place] 720082-02-05 11:10:00 Test Item Value Reference Range Interpretation Comments Sodium Lvl (test code = Sodium Lvl) 139 135-145 [place] 720082-02-05 11:10:00 Test Item Value Reference Range Interpretation Comments Potassium Lvl (test code = Potassium 3.7 3.5-5.1 Lvl) [place] 720082-02-05 11:10:00 Test Item Value Reference Range Interpretation Comments Chloride Lvl (test code = Chloride Lvl) 103 95-109 [place] 720082-02-05 11:10:00 Test Item Value Reference Range Interpretation Comments CO2 (test code = CO2) 31 24-32 [place] 720082-02-05 11:10:00 Test Item Value Reference Range Interpretation Comments Calcium Lvl (test code = Calcium Lvl) 8.2 8.5-10.5 [place] 720082-02-05 11:10:00 Test Item Value Reference Range Interpretation Comments AGAP (test code = AGAP) 8.7 10.0-20.0 [place] 720082-02-05 11:10:00 Test Item Value Reference Range Interpretation Comments eGFR (test code = eGFR) 60 [place] 475322-02-05 11:10:00 Test Item Value Reference Range Interpretation Comments WBC (test code = WBC) 7.2 3.7-10.4 [place] 475322-02-05 11:10:00 Test Item Value Reference Range Interpretation Comments RBC (test code = RBC) 3.30 4.20-5.40 [place] 475322-02-05 11:10:00 Test Item Value Reference Range Interpretation Comments Hgb (test code = Hgb) 8.7 12.0-16.0 [place] [address]-02-05 11:10:00 Test Item Value Reference Range Interpretation Comments Hct (test code = Hct) 27.7 36.0-48.0 [place] 475322-02-05 11:10:00 Test Item Value Reference Range Interpretation Comments MCV (test code = MCV) 84.0 80.0-98.0 [place] 475322-02-05 11:10:00 Test Item Value Reference Range Interpretation Comments MCH (test code = MCH) 26.4 pg 27.0-31.0 [place] 475322-02-05 11:10:00 Test Item Value Reference Range Interpretation Comments MCHC (test code = MCHC) 31.4 32.0-36.0 [facility] NorthwestWaffqdlJJBXLVPTAR6011-93-79 11:10:00 Test Item Value Reference Range Interpretation Comments RDW (test code = RDW) 17.9 11.5-14.5 [place] 475322-02-05 11:10:00 Test Item Value Reference Range Interpretation Comments Platelet (test code = Platelet) 328 133-450 [place] 475322-02-05 11:10:00 Test Item Value Reference Range Interpretation Comments MPV (test code = MPV) 7.2 7.4-10.4 [place] 720082-02-04 11:51:00 Test Item Value Reference Range Interpretation Comments Sodium Lvl (test code = Sodium Lvl) 140 135-145 [place] 720082-02-04 11:51:00 Test Item Value Reference Range Interpretation Comments Potassium Lvl (test code = Potassium 3.9 3.5-5.1 Lvl) [facility]2022-02-04 11:51:00 Test Item Value Reference Range Interpretation Comments Chloride Lvl (test code = Chloride Lvl) 103 95-109 [place] 720082-02-04 11:51:00 Test Item Value Reference Range Interpretation Comments CO2 (test code = CO2) 32 24-32 [place] 720082-02-04 11:51:00 Test Item Value Reference Range Interpretation Comments Calcium Lvl (test code = Calcium Lvl) 8.5 8.5-10.5 [place] 720082-02-04 11:51:00 Test Item Value Reference Range Interpretation Comments AGAP (test code = AGAP) 8.9 10.0-20.0 [facility]2022-02-04 11:51:00 Test Item Value Reference Range Interpretation Comments eGFR (test code = eGFR) 64 [facility] NorthwestIpxwbiiZXWSNLYZAX7093-18-05 11:51:00 Test Item Value Reference Range Interpretation Comments WBC (test code = WBC) 7.1 3.7-10.4 [place] [address]-02-04 11:51:00 Test Item Value Reference Range Interpretation Comments RBC (test code = RBC) 3.54 4.20-5.40 [place] 475322-02-04 11:51:00 Test Item Value Reference Range Interpretation Comments Hgb (test code = Hgb) 9.3 12.0-16.0 [place] 475322-02-04 11:51:00 Test Item Value Reference Range Interpretation Comments Hct (test code = Hct) 29.5 36.0-48.0 [place] 475322-02-04 11:51:00 Test Item Value Reference Range Interpretation Comments MCV (test code = MCV) 83.5 80.0-98.0 [place] 475322-02-04 11:51:00 Test Item Value Reference Range Interpretation Comments MCH (test code = MCH) 26.3 pg 27.0-31.0 [place] 475322-02-04 11:51:00 Test Item Value Reference Range Interpretation Comments MCHC (test code = MCHC) 31.5 32.0-36.0 [place] 475322-02-04 11:51:00 Test Item Value Reference Range Interpretation Comments RDW (test code = RDW) 17.4 11.5-14.5 [place] 475322-02-04 11:51:00 Test Item Value Reference Range Interpretation Comments Platelet (test code = Platelet) 355 133-450 [facility] NorthwestVyvsfjyZDIFBDEKNC9303-77-96 11:51:00 Test Item Value Reference Range Interpretation Comments MPV (test code = MPV) 7.4 7.4-10.4 [facility]2022-02-04 11:51:00 Test Item Value Reference Range Interpretation Comments Glucose Lvl (test code = Glucose Lvl) 98 70-99 [facility]2022-02-04 11:51:00 Test Item Value Reference Range Interpretation Comments BUN (test code = BUN) 12 - [facility]2022-02-04 11:51:00 Test Item Value Reference Range Interpretation Comments Creatinine Lvl (test code = Creatinine 0.88 0.50-1.40 Lvl) [facility]2022-02-04 11:51:00 Test Item Value Reference Range Interpretation Comments Sodium Lvl (test code = Sodium Lvl) 140 135-145 [place] 720082-02-04 11:51:00 Test Item Value Reference Range Interpretation Comments Potassium Lvl (test code = Potassium 3.9 3.5-5.1 Lvl) [place] 720082-02-04 11:51:00 Test Item Value Reference Range Interpretation Comments Chloride Lvl (test code = Chloride Lvl) 103 95-109 [facility]2022-02-04 11:51:00 Test Item Value Reference Range Interpretation Comments CO2 (test code = CO2) 32 24-32 [place] 720082-02-04 11:51:00 Test Item Value Reference Range Interpretation Comments Calcium Lvl (test code = Calcium Lvl) 8.5 8.5-10.5 [place] 720082-02-04 11:51:00 Test Item Value Reference Range Interpretation Comments AGAP (test code = AGAP) 8.9 10.0-20.0 [place] 720082-02-04 11:51:00 Test Item Value Reference Range Interpretation Comments eGFR (test code = eGFR) 64 [facility] NorthwestVvdcahmJJXQEQCHOI5613-43-75 11:51:00 Test Item Value Reference Range Interpretation Comments WBC (test code = WBC) 7.1 3.7-10.4 [place] 475322-02-04 11:51:00 Test Item Value Reference Range Interpretation Comments RBC (test code = RBC) 3.54 4.20-5.40 [place] 475322-02-04 11:51:00 Test Item Value Reference Range Interpretation Comments Hgb (test code = Hgb) 9.3 12.0-16.0 [place] 475322-02-04 11:51:00 Test Item Value Reference Range Interpretation Comments Hct (test code = Hct) 29.5 36.0-48.0 [place] 475322-02-04 11:51:00 Test Item Value Reference Range Interpretation Comments MCV (test code = MCV) 83.5 80.0-98.0 [place] 475322-02-04 11:51:00 Test Item Value Reference Range Interpretation Comments MCH (test code = MCH) 26.3 pg 27.0-31.0 [place] [address]-02-04 11:51:00 Test Item Value Reference Range Interpretation Comments MCHC (test code = MCHC) 31.5 32.0-36.0 [place] 475322-02-04 11:51:00 Test Item Value Reference Range Interpretation Comments RDW (test code = RDW) 17.4 11.5-14.5 [place] [address]-02-04 11:51:00 Test Item Value Reference Range Interpretation Comments Platelet (test code = Platelet) 355 133-450 [place] 475322-02-04 11:51:00 Test Item Value Reference Range Interpretation Comments MPV (test code = MPV) 7.4 7.4-10.4 [place] 720082-02-04 11:51:00 Test Item Value Reference Range Interpretation Comments Glucose Lvl (test code = Glucose Lvl) 98 70-99 [facility]2022-02-04 11:51:00 Test Item Value Reference Range Interpretation Comments BUN (test code = BUN) 12 7-22 [place] 720082-02-04 11:51:00 Test Item Value Reference Range Interpretation Comments Creatinine Lvl (test code = Creatinine 0.88 0.50-1.40 Lvl) [facility]2022-02-04 11:51:00 Test Item Value Reference Range Interpretation Comments Sodium Lvl (test code = Sodium Lvl) 140 135-145 [place] 720082-02-04 11:51:00 Test Item Value Reference Range Interpretation Comments Potassium Lvl (test code = Potassium 3.9 3.5-5.1 Lvl) [place] 720082-02-04 11:51:00 Test Item Value Reference Range Interpretation Comments Chloride Lvl (test code = Chloride Lvl) 103 95-109 [place] 720082-02-04 11:51:00 Test Item Value Reference Range Interpretation Comments CO2 (test code = CO2) 32 24-32 [place] 720082-02-04 11:51:00 Test Item Value Reference Range Interpretation Comments Calcium Lvl (test code = Calcium Lvl) 8.5 8.5-10.5 [place] 720082-02-04 11:51:00 Test Item Value Reference Range Interpretation Comments AGAP (test code = AGAP) 8.9 10.0-20.0 [facility]2022-02-04 11:51:00 Test Item Value Reference Range Interpretation Comments eGFR (test code = eGFR) 64 [facility] NorthwestVbapeaiQOZNBREBYI6971-54-85 11:51:00 Test Item Value Reference Range Interpretation Comments WBC (test code = WBC) 7.1 3.7-10.4 [place] 475322-02-04 11:51:00 Test Item Value Reference Range Interpretation Comments RBC (test code = RBC) 3.54 4.20-5.40 [place] 475322-02-04 11:51:00 Test Item Value Reference Range Interpretation Comments Hgb (test code = Hgb) 9.3 12.0-16.0 [place] 475322-02-04 11:51:00 Test Item Value Reference Range Interpretation Comments Hct (test code = Hct) 29.5 36.0-48.0 [place] 475322-02-04 11:51:00 Test Item Value Reference Range Interpretation Comments MCV (test code = MCV) 83.5 80.0-98.0 [place] 475322-02-04 11:51:00 Test Item Value Reference Range Interpretation Comments MCH (test code = MCH) 26.3 pg 27.0-31.0 [facility] NorthwestPqbasbuMXXFLQKDMA9084-11-74 11:51:00 Test Item Value Reference Range Interpretation Comments MCHC (test code = MCHC) 31.5 32.0-36.0 [facility] NorthwestGekjlarSGDKHMSHDQ6937-45-63 11:51:00 Test Item Value Reference Range Interpretation Comments RDW (test code = RDW) 17.4 11.5-14.5 [facility] NorthwestWjlmcleYPQXDWKUWW5006-15-57 11:51:00 Test Item Value Reference Range Interpretation Comments Platelet (test code = Platelet) 355 133-450 [facility] NorthwestZdcrxmoVNEBHAFBLS9077-30-81 11:51:00 Test Item Value Reference Range Interpretation Comments MPV (test code = MPV) 7.4 7.4-10.4 [facility]2022-02-04 11:51:00 Test Item Value Reference Range Interpretation Comments Glucose Lvl (test code = Glucose Lvl) 98 70-99 [facility]2022-02-04 11:51:00 Test Item Value Reference Range Interpretation Comments BUN (test code = BUN) 12 04-04 [facility]2022-02-04 11:51:00 Test Item Value Reference Range Interpretation Comments Creatinine Lvl (test code = Creatinine 0.88 0.50-1.40 Lvl) [facility]ERHPKID6636[facility] 03:17:00 Test Item Value Reference Range Interpretation Comments Coronavirus (COVID-19) Not Detected (10/17/21 MADELINE (test code = 9:17 PM) Coronavirus (COVID-19) MADELINE) [place] 632042-02-04 03:17:00 Test Item Value Reference Range Interpretation Comments Coronavirus (COVID-19) Not Detected (10/17/21 MADELINE (test code = 9:17 PM) Coronavirus (COVID-19) MADELINE) [facility]lakeGacimdlYJSVDPHPXA6512-28-60 03:17:00 Test Item Value Reference Range Interpretation Comments Coronavirus (COVID-19) Not Detected (10/17/21 MADELINE (test code = 9:17 PM) Coronavirus (COVID-19) MADELINE) [facility] NorthwestMgycijjHPYWRBIZGE1551-65-38 12:50:00 Test Item Value Reference Range Interpretation Comments Segs (test code = Segs) 70.7 45.0-75.0 [facility] NorthwestShylfnsANVBDLOXGI0086-15-43 12:50:00 Test Item Value Reference Range Interpretation Comments Lymphocytes (test code = Lymphocytes) 14.4 20.0-40.0 [facility] NorthwestPwevmrhVQCRODZNEX1292-94-75 12:50:00 Test Item Value Reference Range Interpretation Comments Monocytes (test code = Monocytes) 14.0 2.0-12.0 [place] 475322-02-02 12:50:00 Test Item Value Reference Range Interpretation Comments Basophils (test code = 0.9 See_Comment [Aut omated message] The Basophils) system which ge nerated this result tra nsmitted reference range : <=1.0. The reference r shin was not used to int erpret this result as normal/abnormal . [facility] NorthwestYknoynoDJJMUZZWIP1770-26-41 12:50:00 Test Item Value Reference Range Interpretation Comments Neutrophils # (test code = Neutrophils 4.3 1.5-8.1 #) [facility] NorthwestXgskbebQEVZSRSMEE2009-70-31 12:50:00 Test Item Value Reference Range Interpretation Comments Lymphocytes # (test code = Lymphocytes 0.9 1.0-5.5 #) [place] 475322-02-02 12:50:00 Test Item Value Reference Range Interpretation Comments Monocytes # (test code 0.9 See_Comment [Aut omated message] The = Monocytes #) system which generated this result tra nsmitted reference range : <=0.8. The reference r shin was not used to int erpret this result as normal/abnormal . [place] 475322-02-02 12:50:00 Test Item Value Reference Range Interpretation Comments Basophils # (test code 0.1 See_Comment [Aut omated message] The = Basophils #) system which generated this result tra nsmitted reference range : <=0.2. The reference r shin was not used to int erpret this result as normal/abnormal . [place] 475322-02-02 12:50:00 Test Item Value Reference Range Interpretation Comments Segs (test code = Segs) 70.7 45.0-75.0 [place] 475322-02-02 12:50:00 Test Item Value Reference Range Interpretation Comments Lymphocytes (test code = Lymphocytes) 14.4 20.0-40.0 [place] 475322-02-02 12:50:00 Test Item Value Reference Range Interpretation Comments Monocytes (test code = Monocytes) 14.0 2.0-12.0 [place] 475322-02-02 12:50:00 Test Item Value Reference Range Interpretation Comments Basophils (test code = 0.9 See_Comment [Aut omated message] The Basophils) system which ge nerated this result tra nsmitted reference range : <=1.0. The reference r shin was not used to int erpret this result as normal/abnormal . [place] 475322-02-02 12:50:00 Test Item Value Reference Range Interpretation Comments Neutrophils # (test code = Neutrophils 4.3 1.5-8.1 #) [place] 475322-02-02 12:50:00 Test Item Value Reference Range Interpretation Comments Lymphocytes # (test code = Lymphocytes 0.9 1.0-5.5 #) [place] 475322-02-02 12:50:00 Test Item Value Reference Range Interpretation Comments Monocytes # (test code 0.9 See_Comment [Aut omated message] The = Monocytes #) system which generated this result tra nsmitted reference range : <=0.8. The reference r shin was not used to int erpret this result as normal/abnormal . [place] 475322-02-02 12:50:00 Test Item Value Reference Range Interpretation Comments Basophils # (test code 0.1 See_Comment [Aut omated message] The = Basophils #) system which generated this result tra nsmitted reference range : <=0.2. The reference r shin was not used to int erpret this result as normal/abnormal . [address]02-02 12:50:00 Test Item Value Reference Range Interpretation Comments Segs (test code = Segs) 70.7 45.0-75.0 [place] 475322-02-02 12:50:00 Test Item Value Reference Range Interpretation Comments Lymphocytes (test code = Lymphocytes) 14.4 20.0-40.0 [place] [address]-02-02 12:50:00 Test Item Value Reference Range Interpretation Comments Monocytes (test code = Monocytes) 14.0 2.0-12.0 [place] [address]-02-02 12:50:00 Test Item Value Reference Range Interpretation Comments Basophils (test code = 0.9 See_Comment [Aut omated message] The Basophils) system which ge nerated this result tra nsmitted reference range : <=1.0. The reference r shin was not used to int erpret this result as normal/abnormal . [place] 475322-02-02 12:50:00 Test Item Value Reference Range Interpretation Comments Neutrophils # (test code = Neutrophils 4.3 1.5-8.1 #) [place] [address]-02-02 12:50:00 Test Item Value Reference Range Interpretation Comments Lymphocytes # (test code = Lymphocytes 0.9 1.0-5.5 #) [place] [address]-02-02 12:50:00 Test Item Value Reference Range Interpretation Comments Monocytes # (test code 0.9 See_Comment [Aut omated message] The = Monocytes #) system which generated this result tra nsmitted reference range : <=0.8. The reference r shin was not used to int erpret this result as normal/abnormal . [facility] NorthwestTsztmgiFCWIGKWFBJ5631-06-94 12:50:00 Test Item Value Reference Range Interpretation Comments Basophils # (test code 0.1 See_Comment [Aut omated message] The = Basophils #) system which generated this result tra nsmitted reference range : <=0.2. The reference r shin was not used to int erpret this result as normal/abnormal . [facility] NorthwestUlyddlbEKVJSQYZSB0771-07-99 12:13:00 Test Item Value Reference Range Interpretation Comments Plt Morph (test code = Normal (10/15/21 6:13 AM) Plt Morph) [facility] NorthwestVfqwslzUJKYOGQFKS2491-94-28 12:13:00 Test Item Value Reference Range Interpretation Comments Segs (test code = Segs) 79.0 45.0-75.0 [facility] NorthwestEejrbeiPEQPFIOPDD4550-40-76 12:13:00 Test Item Value Reference Range Interpretation Comments Bands (test code = 3.0 See_Comment [Automat ed message] The Bands) system which ge nerated this result transmit shubham reference range : <=11.0. The reference r shin was not used to interpr et this result as halina l/abnormal. [facility] NorthwestOnxgzvgMYGQHOXJZS0958-75-90 12:13:00 Test Item Value Reference Range Interpretation Comments Lymphocytes (test code = Lymphocytes) 8.0 20.0-40.0 [facility] NorthwestHmazyjbCJKXBYKSBD0563-66-09 12:13:00 Test Item Value Reference Range Interpretation Comments Monocytes (test code = Monocytes) 10.0 2.0-12.0 [facility] NorthwestVqbqcgfXWQLXABEUJ2400-42-48 12:13:00 Test Item Value Reference Range Interpretation Comments Neutrophils # (test code = Neutrophils 5.8 1.5-8.1 #) [facility] NorthwestMikisqmJFLRPZJZRP1074-49-75 12:13:00 Test Item Value Reference Range Interpretation Comments Lymphocytes # (test code = Lymphocytes 0.6 1.0-5.5 #) [facility] NorthwestLfazohgNWVAHVTLCR8050-28-22 12:13:00 Test Item Value Reference Range Interpretation Comments Monocytes # (test code 0.7 See_Comment [Aut omated message] The = Monocytes #) system which generated this result tra nsmitted reference range : <=0.8. The reference r shin was not used to int erpret this result as normal/abnormal . [place] [address]-02-01 12:13:00 Test Item Value Reference Range Interpretation Comments Microcyte (test code = 1+ *ABN*(10/15/21 6:13 Microcyte) AM) [place] [address]-02-01 12:13:00 Test Item Value Reference Range Interpretation Comments Hypochrom (test code = 1+ (10/15/21 6:13 AM) Hypochrom) [place] [address]-02-01 12:13:00 Test Item Value Reference Range Interpretation Comments Plt Morph (test code = Normal (10/15/21 6:13 AM) Plt Morph) [place] [address]-02-01 12:13:00 Test Item Value Reference Range Interpretation Comments Segs (test code = Segs) 79.0 45.0-75.0 [place] [address]-02-01 12:13:00 Test Item Value Reference Range Interpretation Comments Bands (test code = 3.0 See_Comment [Automat ed message] The Bands) system which ge nerated this result transmit shubham reference range : <=11.0. The reference r shin was not used to interpr et this result as halina l/abnormal. [place] [address]-02-01 12:13:00 Test Item Value Reference Range Interpretation Comments Lymphocytes (test code = Lymphocytes) 8.0 20.0-40.0 [place] [address]-02-01 12:13:00 Test Item Value Reference Range Interpretation Comments Monocytes (test code = Monocytes) 10.0 2.0-12.0 [place] [address]-02-01 12:13:00 Test Item Value Reference Range Interpretation Comments Neutrophils # (test code = Neutrophils 5.8 1.5-8.1 #) [place] [address]-02-01 12:13:00 Test Item Value Reference Range Interpretation Comments Lymphocytes # (test code = Lymphocytes 0.6 1.0-5.5 #) [place] [address]-02-01 12:13:00 Test Item Value Reference Range Interpretation Comments Monocytes # (test code 0.7 See_Comment [Aut omated message] The = Monocytes #) system which generated this result tra nsmitted reference range : <=0.8. The reference r shin was not used to int erpret this result as normal/abnormal . [place] 475322-02-01 12:13:00 Test Item Value Reference Range Interpretation Comments Microcyte (test code = 1+ *ABN*(10/15/21 6:13 Microcyte) AM) [place] 475322-02-01 12:13:00 Test Item Value Reference Range Interpretation Comments Hypochrom (test code = 1+ (10/15/21 6:13 AM) Hypochrom) [place] [address]-02-01 12:13:00 Test Item Value Reference Range Interpretation Comments Plt Morph (test code = Normal (10/15/21 6:13 AM) Plt Morph) [place] 475322-02-01 12:13:00 Test Item Value Reference Range Interpretation Comments Segs (test code = Segs) 79.0 45.0-75.0 [place] [address]-02-01 12:13:00 Test Item Value Reference Range Interpretation Comments Bands (test code = 3.0 See_Comment [Automat ed message] The Bands) system which ge nerated this result transmit shubham reference range : <=11.0. The reference r shin was not used to interpr et this result as halina l/abnormal. [place] 475322-02-01 12:13:00 Test Item Value Reference Range Interpretation Comments Lymphocytes (test code = Lymphocytes) 8.0 20.0-40.0 [place] [address]-02-01 12:13:00 Test Item Value Reference Range Interpretation Comments Monocytes (test code = Monocytes) 10.0 2.0-12.0 [place] [address]-02-01 12:13:00 Test Item Value Reference Range Interpretation Comments Neutrophils # (test code = Neutrophils 5.8 1.5-8.1 #) [place] [address]-02-01 12:13:00 Test Item Value Reference Range Interpretation Comments Lymphocytes # (test code = Lymphocytes 0.6 1.0-5.5 #) [place] [address]-02-01 12:13:00 Test Item Value Reference Range Interpretation Comments Monocytes # (test code 0.7 See_Comment [Aut omated message] The = Monocytes #) system which generated this result tra nsmitted reference range : <=0.8. The reference r shin was not used to int erpret this result as normal/abnormal . [facility] NorthwestDyzmbrlXECIVLUTBB0294-65-48 12:13:00 Test Item Value Reference Range Interpretation Comments Microcyte (test code = 1+ *ABN*(10/15/21 6:13 Microcyte) AM) [facility] NorthwestOzdhirrXVGYMBGSSO1913-00-47 12:13:00 Test Item Value Reference Range Interpretation Comments Hypochrom (test code = 1+ (10/15/21 6:13 AM) Hypochrom) [facility] LXMAULX3711-71-61 15:02:00 Test Item Value Reference Range Interpretation Comments RBC product (test code Product available = RBC product) (10/14/21 9:02 AM) [facility] [id number] 15:02:00 Test Item Value Reference Range Interpretation Comments RBC product (test code Product available = RBC product) (10/14/21 9:02 AM) [facility] [id number] 15:02:00 Test Item Value Reference Range Interpretation Comments RBC product (test code Product available = RBC product) (10/14/21 9:02 AM) [facility] [id number] 12:40:00 Test Item Value Reference Range Interpretation Comments ABO/Rh (test code = ABO/Rh) O POS [facility] [id number] 12:40:00 Test Item Value Reference Range Interpretation Comments Antibody Scrn (test Negative (10/14/21 6:40 code = Antibody Scrn) AM) [facility] [id number] 12:40:00 Test Item Value Reference Range Interpretation Comments ABO/Rh (test code = ABO/Rh) O POS [facility] [id number] 12:40:00 Test Item Value Reference Range Interpretation Comments Antibody Scrn (test Negative (10/14/21 6:40 code = Antibody Scrn) AM) [facility] [id number] 12:40:00 Test Item Value Reference Range Interpretation Comments ABO/Rh (test code = ABO/Rh) O POS [facility] [id number] 12:40:00 Test Item Value Reference Range Interpretation Comments Antibody Scrn (test Negative (10/14/21 6:40 code = Antibody Scrn) AM) [facility] [id number] 11:57:00 Test Item Value Reference Range Interpretation Comments RBC product (test code Product available = RBC product) 4(10/14/21 5:57 AM) [facility] [id number] 11:57:00 Test Item Value Reference Range Interpretation Comments RBC product (test code Product available = RBC product) 4(10/14/21 5:57 AM) [facility] [id number] 11:57:00 Test Item Value Reference Range Interpretation Comments RBC product (test code Product available = RBC product) 4(10/14/21 5:57 AM) [facility]2022-01-31 10:48:00 Test Item Value Reference Range Interpretation Comments Ferritin Lvl (test code = Ferritin Lvl) 29 [facility]2022-01-31 10:48:00 Test Item Value Reference Range Interpretation Comments Iron (test code = Iron) 10 [facility]2022-01-31 10:48:00 Test Item Value Reference Range Interpretation Comments TIBC (test code = TIBC) 253 [facility] [id number] 10:48:00 Test Item Value Reference Range Interpretation Comments % Satur Fe (test code = % Satur Fe) 4 [facility] [id number] 10:48:00 Test Item Value Reference Range Interpretation Comments Folate Lvl (test code = Folate Lvl) 2.9 [facility]2022-01-31 10:48:00 Test Item Value Reference Range Interpretation Comments Vitamin B12 Lvl (test code = Vitamin 181 B12 Lvl) [id number] 10:48:00 Test Item Value Reference Range Interpretation Comments Segs (test code = Segs) 75.9 45.0-75.0 [facility] No[id number] 10:48:00 Test Item Value Reference Range Interpretation Comments Lymphocytes (test code = Lymphocytes) 12.6 20.0-40.0 [facility] NorthwestUvvlnugOEVMDMBDGG2854-06-94 10:48:00 Test Item Value Reference Range Interpretation Comments Monocytes (test code = Monocytes) 11.0 2.0-12.0 [facility] No[id number] 10:48:00 Test Item Value Reference Range Interpretation Comments Basophils (test code = 0.5 See_Comment [Aut omated message] The Basophils) system which ge nerated this result tra nsmitted reference range : <=1.0. The reference r shin was not used to int erpret this result as normal/abnormal . [facility] Nor[id number] 10:48:00 Test Item Value Reference Range Interpretation Comments Neutrophils # (test code = Neutrophils 7.1 1.5-8.1 #) [facility] No[id number] 10:48:00 Test Item Value Reference Range Interpretation Comments Lymphocytes # (test code = Lymphocytes 1.2 1.0-5.5 #) [facility] Northwe[id number] 10:48:00 Test Item Value Reference Range Interpretation Comments Monocytes # (test code 1.0 See_Comment [Aut omated message] The = Monocytes #) system which generated this result tra nsmitted reference range : <=0.8. The reference r shin was not used to int erpret this result as normal/abnormal . [facility] NorthwestRvfrkoxXAKGRMNHIX5655-95-50 10:48:00 Test Item Value Reference Range Interpretation Comments Basophils # (test code 0.1 See_Comment [Aut omated message] The = Basophils #) system which generated this result tra nsmitted reference range : <=0.2. The reference r shin was not used to int erpret this result as normal/abnormal . [facility] NorthwestKracygbTIORLVWVQN0363-51-76 10:48:00 Test Item Value Reference Range Interpretation Comments Retic Perf (test code = Yes (10/14/21 4:48 AM) Retic Perf) [facility] NorthwestFoorimuHKSTQWSFHN3447-13-32 10:48:00 Test Item Value Reference Range Interpretation Comments Retic Auto (test code = Retic Auto) 1.8 0.5-1.5 [facility]2022-01-31 10:48:00 Test Item Value Reference Range Interpretation Comments Ferritin Lvl (test code = Ferritin Lvl) 29 - [facility]2022-01-31 10:48:00 Test Item Value Reference Range Interpretation Comments Iron (test code = Iron) 10 [facility]2022-01-31 10:48:00 Test Item Value Reference Range Interpretation Comments TIBC (test code = TIBC) 253 [facility]2022-01-31 10:48:00 Test Item Value Reference Range Interpretation Comments % Satur Fe (test code = % Satur Fe) 4 [facility]2022-01-31 10:48:00 Test Item Value Reference Range Interpretation Comments Folate Lvl (test code = Folate Lvl) 2.9 [facility]2022-01-31 10:48:00 Test Item Value Reference Range Interpretation Comments Vitamin B12 Lvl (test code = Vitamin 181 B12 Lvl) [place]322-01-31 10:48:00 Test Item Value Reference Range Interpretation Comments Segs (test code = Segs) 75.9 45.0-75.0 [place] 475322-01-31 10:48:00 Test Item Value Reference Range Interpretation Comments Lymphocytes (test code = Lymphocytes) 12.6 20.0-40.0 [place] 475322-01-31 10:48:00 Test Item Value Reference Range Interpretation Comments Monocytes (test code = Monocytes) 11.0 2.0-12.0 [place] 475322-01-31 10:48:00 Test Item Value Reference Range Interpretation Comments Basophils (test code = 0.5 See_Comment [Aut omated message] The Basophils) system which ge nerated this result tra nsmitted reference range : <=1.0. The reference r shin was not used to int erpret this result as normal/abnormal . [facility] NorthwestQpsvomvXDRPXJSQIR7061-27-78 10:48:00 Test Item Value Reference Range Interpretation Comments Neutrophils # (test code = Neutrophils 7.1 1.5-8.1 #) [facility] NorthwestAfbhsebMCIZCPURJL8000-36-21 10:48:00 Test Item Value Reference Range Interpretation Comments Lymphocytes # (test code = Lymphocytes 1.2 1.0-5.5 #) [place] 475322-01-31 10:48:00 Test Item Value Reference Range Interpretation Comments Monocytes # (test code 1.0 See_Comment [Aut omated message] The = Monocytes #) system which generated this result tra nsmitted reference range : <=0.8. The reference r shin was not used to int erpret this result as normal/abnormal . [place] 475322-01-31 10:48:00 Test Item Value Reference Range Interpretation Comments Basophils # (test code 0.1 See_Comment [Aut omated message] The = Basophils #) system which generated this result tra nsmitted reference range : <=0.2. The reference r shin was not used to int erpret this result as normal/abnormal . [facility] NorthwestFxixzvvLTXPOKVPGT2159-21-04 10:48:00 Test Item Value Reference Range Interpretation Comments Retic Perf (test code = Yes (10/14/21 4:48 AM) Retic Perf) [facility] NorthwestNmuyswbKYLTEAVJLM0731-24-06 10:48:00 Test Item Value Reference Range Interpretation Comments Retic Auto (test code = Retic Auto) 1.8 0.5-1.5 [facility]2022-01-31 10:48:00 Test Item Value Reference Range Interpretation Comments Ferritin Lvl (test code = Ferritin Lvl) 29 5-204 [facility]2022-01-31 10:48:00 Test Item Value Reference Range Interpretation Comments Iron (test code = Iron) 10 [facility]2022-01-31 10:48:00 Test Item Value Reference Range Interpretation Comments TIBC (test code = TIBC) 253 [facility]2022-01-31 10:48:00 Test Item Value Reference Range Interpretation Comments % Satur Fe (test code = % Satur Fe) 4 [facility]2022-01-31 10:48:00 Test Item Value Reference Range Interpretation Comments Folate Lvl (test code = Folate Lvl) 2.9 [facility]2022-01-31 10:48:00 Test Item Value Reference Range Interpretation Comments Vitamin B12 Lvl (test code = Vitamin 181 B12 Lvl) [facility] NorthwestQtxkhwyEEDREBHIVS5318-83-83 10:48:00 Test Item Value Reference Range Interpretation Comments Segs (test code = Segs) 75.9 45.0-75.0 [facility] NorthwestZzmnbqzIFJYLVZFOV4361-37-16 10:48:00 Test Item Value Reference Range Interpretation Comments Lymphocytes (test code = Lymphocytes) 12.6 20.0-40.0 [facility] NorthwestJfrnukdEHQWJPANUX6784-04-90 10:48:00 Test Item Value Reference Range Interpretation Comments Monocytes (test code = Monocytes) 11.0 2.0-12.0 [place] 475322-01-31 10:48:00 Test Item Value Reference Range Interpretation Comments Basophils (test code = 0.5 See_Comment [Aut omated message] The Basophils) system which ge nerated this result tra nsmitted reference range : <=1.0. The reference r shin was not used to int erpret this result as normal/abnormal . [facility] NorthwestUfbaperTAVQNXTJKF4050-64-03 10:48:00 Test Item Value Reference Range Interpretation Comments Neutrophils # (test code = Neutrophils 7.1 1.5-8.1 #) [facility] NorthwestPxiubvtDELTCLBVGQ8702-86-81 10:48:00 Test Item Value Reference Range Interpretation Comments Lymphocytes # (test code = Lymphocytes 1.2 1.0-5.5 #) [facility] NorthwestLcagtkmKCTVXETJDQ0676-04-55 10:48:00 Test Item Value Reference Range Interpretation Comments Monocytes # (test code 1.0 See_Comment [Aut omated message] The = Monocytes #) system which generated this result tra nsmitted reference range : <=0.8. The reference r shin was not used to int erpret this result as normal/abnormal . [facility] NorthwestOhqwzeeHLEHZVEFXR4653-66-98 10:48:00 Test Item Value Reference Range Interpretation Comments Basophils # (test code 0.1 See_Comment [Aut omated message] The = Basophils #) system which generated this result tra nsmitted reference range : <=0.2. The reference r shin was not used to int erpret this result as normal/abnormal . [facility] NorthwestRzxywqkMLQCNWXLOF3129-41-95 10:48:00 Test Item Value Reference Range Interpretation Comments Retic Perf (test code = Yes (10/14/21 4:48 AM) Retic Perf) [facility] NorthwestHpajojrEVTBYWNZFU9618-15-22 10:48:00 Test Item Value Reference Range Interpretation Comments Retic Auto (test code = Retic Auto) 1.8 0.5-1.5 [facility] NorthwestVdmbbhcBQMUSWTZNF1009-00-16 20:45:00 Test Item Value Reference Range Interpretation Comments Hgb (test code = Hgb) 7.7 12.0-16.0 [facility] NorthwestRuctjlwCTTFQSUIMJ1053-34-49 20:45:00 Test Item Value Reference Range Interpretation Comments Hct (test code = Hct) 24.5 36.0-48.0 [facility] NorthwestSvhrqfnLRBKCSYTKP3396-67-64 20:45:00 Test Item Value Reference Range Interpretation Comments Hgb (test code = Hgb) 7.7 12.0-16.0 [facility]XUZJ4580[facility] 20:45:00 Test Item Value Reference Range Interpretation Comments Hct (test code = Hct) 24.5 36.0-48.0 [facility] 20:45:00 Test Item Value Reference Range Interpretation Comments Hgb (test code = Hgb) 7.7 12.0-16.0 [facility]YesaqwfHRFSWMZFLV8108-01-73 20:45:00 Test Item Value Reference Range Interpretation Comments Hct (test code = Hct) 24.5 36.0-48.0 [facility] [id number] 15:44:00 Test Item Value Reference Range Interpretation Comments Lactic Acid Lvl (test code = Lactic 1.8 0.5-2.2 Acid Lvl) [facility]2022-01-30 15:44:00 Test Item Value Reference Range Interpretation Comments Lactic Acid Lvl (test code = Lactic 1.8 0.5-2.2 Acid Lvl) [facility]2022-01-30 15:44:00 Test Item Value Reference Range Interpretation Comments Lactic Acid Lvl (test code = Lactic 1.8 0.5-2.2 Acid Lvl) [facility]NckkycoTBPWUZHGKB5953-05-61 14:53:00 Test Item Value Reference Range Interpretation Comments Coronavirus (COVID-19) Not Detected (10/13/21 MADELINE (test code = 8:53 AM) Coronavirus (COVID-19) MADELINE) [facility] [id number] 14:53:00 Test Item Value Reference Range Interpretation Comments UA Color (test code = Yellow *NA*(10/13/21 UA Color) 8:53 AM) [facility] [id number] 14:53:00 Test Item Value Reference Range Interpretation Comments UA Turbidity (test code = Clear (10/13/21 8:53 UA Turbidity) AM) [facility] [id number] 14:53:00 Test Item Value Reference Range Interpretation Comments UA Spec Grav (test code = UA Spec 1.017 1 Grav) [facility] [id number] 14:53:00 Test Item Value Reference Range Interpretation Comments UA pH (test code = UA pH) 5.0 1 5.0-8.0 [facility] [id number] 14:53:00 Test Item Value Reference Range Interpretation Comments UA Protein (test code = UA Protein) 30 mg/dL [facility] [id number] 14:53:00 Test Item Value Reference Range Interpretation Comments UA Glucose (test code = UA Negative mg/dL Glucose) [facility] [id number] 14:53:00 Test Item Value Reference Range Interpretation Comments UA Ketones (test code = UA Negative mg/dL Ketones) [facility] [id number] 14:53:00 Test Item Value Reference Range Interpretation Comments UA Bili (test code = Negative *NA*(10/13/21 UA Bili) 8:53 AM) [facility] [id number] 14:53:00 Test Item Value Reference Range Interpretation Comments UA Blood (test code = Small *ABN*(10/13/21 UA Blood) 8:53 AM) [facility] [id number] 14:53:00 Test Item Value Reference Range Interpretation Comments UA Urobilinogen (test code = UA 2.0 0.1-1.0 Urobilinogen) [facility] [id number] 14:53:00 Test Item Value Reference Range Interpretation Comments UA Nitrite (test code Negative (10/13/21 8:53 = UA Nitrite) AM) [facility] [id number] 14:53:00 Test Item Value Reference Range Interpretation Comments UA Leuk Est (test code Small *ABN*(10/13/21 = UA Leuk Est) 8:53 AM) [facility] [id number] 14:53:00 Test Item Value Reference Range Interpretation Comments UA Sq Epi (test code = UA Sq Occasional /LPF Epi) [facility] [id number] 14:53:00 Test Item Value Reference Range Interpretation Comments UA WBC (test code = 26 See_Comment [Automa shubham message] The UA WBC) system which ge nerated this result transmit shubham reference range : <=5. The reference range was not used to interpr et this result as halina l/abnormal. [facility] [id number] 14:53:00 Test Item Value Reference Range Interpretation Comments UA RBC (test code = 44 See_Comment [Automa shubham message] The UA RBC) system which ge nerated this result transmit shubham reference range : <=2. The reference range was not used to interpr et this result as halina l/abnormal. [facility] [id number] 14:53:00 Test Item Value Reference Range Interpretation Comments UA Bacteria (test code = UA Occasional /HPF Bacteria) [facility] [id number] 14:53:00 Test Item Value Reference Range Interpretation Comments UA Mucus (test code = UA Mucus) Moderate /LPF [facility]: [id number] 14:53:00 Test Item Value Reference Range Interpretation Comments Culture: Urine (test code = No Growth Culture: Urine) [facility] HospitalWodpcocYHQDHJFFNJ3375-95-24 14:53:00 Test Item Value Reference Range Interpretation Comments Coronavirus (COVID-19) Not Detected (10/13/21 MADELINE (test code = 8:53 AM) Coronavirus (COVID-19) MADELINE) [facility] [id number] 14:53:00 Test Item Value Reference Range Interpretation Comments UA Color (test code = Yellow *NA*(10/13/21 UA Color) 8:53 AM) [facility] [id number] 14:53:00 Test Item Value Reference Range Interpretation Comments UA Turbidity (test code = Clear (10/13/21 8:53 UA Turbidity) AM) [facility] [id number] 14:53:00 Test Item Value Reference Range Interpretation Comments UA Spec Grav (test code = UA Spec 1.017 1 Grav) [facility] [id number] 14:53:00 Test Item Value Reference Range Interpretation Comments UA pH (test code = UA pH) 5.0 1 5.0-8.0 [facility] [id number] 14:53:00 Test Item Value Reference Range Interpretation Comments UA Protein (test code = UA Protein) 30 mg/dL [facility] [id number] 14:53:00 Test Item Value Reference Range Interpretation Comments UA Glucose (test code = UA Negative mg/dL Glucose) [facility] [id number] 14:53:00 Test Item Value Reference Range Interpretation Comments UA Ketones (test code = UA Negative mg/dL Ketones) [facility] [id number] 14:53:00 Test Item Value Reference Range Interpretation Comments UA Bili (test code = Negative *NA*(10/13/21 UA Bili) 8:53 AM) [facility] [id number] 14:53:00 Test Item Value Reference Range Interpretation Comments UA Blood (test code = Small *ABN*(10/13/21 UA Blood) 8:53 AM) [facility] AND [id number] 14:53:00 Test Item Value Reference Range Interpretation Comments UA Urobilinogen (test code = UA 2.0 0.1-1.0 Urobilinogen) [facility] [id number] 14:53:00 Test Item Value Reference Range Interpretation Comments UA Nitrite (test code Negative (10/13/21 8:53 = UA Nitrite) AM) [facility] [id number] 14:53:00 Test Item Value Reference Range Interpretation Comments UA Leuk Est (test code Small *ABN*(10/13/21 = UA Leuk Est) 8:53 AM) [facility] [id number] 14:53:00 Test Item Value Reference Range Interpretation Comments UA Sq Epi (test code = UA Sq Occasional /LPF Epi) [facility] AND [id number] 14:53:00 Test Item Value Reference Range Interpretation Comments UA WBC (test code = 26 See_Comment [Automa shubham message] The UA WBC) system which ge nerated this result transmit shubham reference range : <=5. The reference range was not used to interpr et this result as halina l/abnormal. [facility] AND [id number] 14:53:00 Test Item Value Reference Range Interpretation Comments UA RBC (test code = 44 See_Comment [Automa shubham message] The UA RBC) system which ge nerated this result transmit shubham reference range : <=2. The reference range was not used to interpr et this result as halina l/abnormal. [facility] AND [id number] 14:53:00 Test Item Value Reference Range Interpretation Comments UA Bacteria (test code = UA Occasional /HPF Bacteria) [facility] [id number] 14:53:00 Test Item Value Reference Range Interpretation Comments UA Mucus (test code = UA Mucus) Moderate /LPF [facility] [id number] 14:53:00 Test Item Value Reference Range Interpretation Comments Culture: Urine (test code = No Growth Culture: Urine) [facility] Hospit[id number] 14:53:00 Test Item Value Reference Range Interpretation Comments Coronavirus (COVID-19) Not Detected (10/13/21 MADELINE (test code = 8:53 AM) Coronavirus (COVID-19) MADELINE) [facility] [id number] 14:53:00 Test Item Value Reference Range Interpretation Comments UA Color (test code = Yellow *NA*(10/13/21 UA Color) 8:53 AM) [facility] AND [id number] 14:53:00 Test Item Value Reference Range Interpretation Comments UA Turbidity (test code = Clear (10/13/21 8:53 UA Turbidity) AM) [facility] AND [id number] 14:53:00 Test Item Value Reference Range Interpretation Comments UA Spec Grav (test code = UA Spec 1.017 1 Grav) [facility] AND [id number] 14:53:00 Test Item Value Reference Range Interpretation Comments UA pH (test code = UA pH) 5.0 1 5.0-8.0 [facility] AND [id number] 14:53:00 Test Item Value Reference Range Interpretation Comments UA Protein (test code = UA Protein) 30 mg/dL [facility] AND [id number] 14:53:00 Test Item Value Reference Range Interpretation Comments UA Glucose (test code = UA Negative mg/dL Glucose) [facility] AND [id number] 14:53:00 Test Item Value Reference Range Interpretation Comments UA Ketones (test code = UA Negative mg/dL Ketones) [facility] AND [id number] 14:53:00 Test Item Value Reference Range Interpretation Comments UA Bili (test code = Negative *NA*(10/13/21 UA Bili) 8:53 AM) [facility] AND [id number] 14:53:00 Test Item Value Reference Range Interpretation Comments UA Blood (test code = Small *ABN*(10/13/21 UA Blood) 8:53 AM) [facility] [id number] 14:53:00 Test Item Value Reference Range Interpretation Comments UA Urobilinogen (test code = UA 2.0 0.1-1.0 Urobilinogen) [facility] [id number] 14:53:00 Test Item Value Reference Range Interpretation Comments UA Nitrite (test code Negative (10/13/21 8:53 = UA Nitrite) AM) [facility] [id number] 14:53:00 Test Item Value Reference Range Interpretation Comments UA Leuk Est (test code Small *ABN*(10/13/21 = UA Leuk Est) 8:53 AM) [facility] [id number] 14:53:00 Test Item Value Reference Range Interpretation Comments UA Sq Epi (test code = UA Sq Occasional /LPF Epi) [facility] [id number] 14:53:00 Test Item Value Reference Range Interpretation Comments UA WBC (test code = 26 See_Comment [Automa shubham message] The UA WBC) system which ge nerated this result transmit shubham reference range : <=5. The reference range was not used to interpr et this result as halina l/abnormal. [facility] AND [id number] 14:53:00 Test Item Value Reference Range Interpretation Comments UA RBC (test code = 44 See_Comment [Automa shubham message] The UA RBC) system which ge nerated this result transmit shubham reference range : <=2. The reference range was not used to interpr et this result as halina l/abnormal. [facility] [id number] 14:53:00 Test Item Value Reference Range Interpretation Comments UA Bacteria (test code = UA Occasional /HPF Bacteria) [facility] [id number] 14:53:00 Test Item Value Reference Range Interpretation Comments UA Mucus (test code = UA Mucus) Moderate /LPF [facility]: [id number] 14:53:00 Test Item Value Reference Range Interpretation Comments Culture: Urine (test code = No Growth Culture: Urine) [facility] [id number] 12:16:00 Test Item Value Reference Range Interpretation Comments Glucose Lvl (test code = Glucose Lvl) 121 70-99 [place] 720082-01-30 12:16:00 Test Item Value Reference Range Interpretation Comments BUN (test code = BUN) 18 7-22 [place] 720082-01-30 12:16:00 Test Item Value Reference Range Interpretation Comments Creatinine Lvl (test code = Creatinine 0.97 0.50-1.40 Lvl) [place] 720082-01-30 12:16:00 Test Item Value Reference Range Interpretation Comments Sodium Lvl (test code = Sodium Lvl) 138 135-145 [place] 720082-01-30 12:16:00 Test Item Value Reference Range Interpretation Comments Potassium Lvl (test code = Potassium 4.1 3.5-5.1 Lvl) [facility]2022-01-30 12:16:00 Test Item Value Reference Range Interpretation Comments Chloride Lvl (test code = Chloride Lvl) 105 95-109 [facility]2022-01-30 12:16:00 Test Item Value Reference Range Interpretation Comments CO2 (test code = CO2) 29 24-32 [facility]2022-01-30 12:16:00 Test Item Value Reference Range Interpretation Comments Calcium Lvl (test code = Calcium Lvl) 8.3 8.5-10.5 [facility]2022-01-30 12:16:00 Test Item Value Reference Range Interpretation Comments AGAP (test code = AGAP) 8.1 10.0-20.0 [place] 720082-01-30 12:16:00 Test Item Value Reference Range Interpretation Comments eGFR (test code = eGFR) 57 [facility]RijuvqaPLDYZMNXNS5519-60-00 12:16:00 Test Item Value Reference Range Interpretation Comments WBC (test code = WBC) 11.6 3.7-10.4 [place] 475322-01-30 12:16:00 Test Item Value Reference Range Interpretation Comments RBC (test code = RBC) 3.03 4.20-5.40 [place] 475322-01-30 12:16:00 Test Item Value Reference Range Interpretation Comments Hgb (test code = Hgb) 7.7 12.0-16.0 [place] 475322-01-30 12:16:00 Test Item Value Reference Range Interpretation Comments Hct (test code = Hct) 25.0 36.0-48.0 [place] 475322-01-30 12:16:00 Test Item Value Reference Range Interpretation Comments MCV (test code = MCV) 82.6 80.0-98.0 [place] 475322-01-30 12:16:00 Test Item Value Reference Range Interpretation Comments MCH (test code = MCH) 25.5 pg 27.0-31.0 [place] 475322-01-30 12:16:00 Test Item Value Reference Range Interpretation Comments MCHC (test code = MCHC) 30.8 32.0-36.0 [place] 475322-01-30 12:16:00 Test Item Value Reference Range Interpretation Comments RDW (test code = RDW) 17.5 11.5-14.5 [place] 475322-01-30 12:16:00 Test Item Value Reference Range Interpretation Comments Platelet (test code = Platelet) 233 133-450 [facility] NorthwestWymipnkJIWEHOKEWV9400-53-12 12:16:00 Test Item Value Reference Range Interpretation Comments MPV (test code = MPV) 7.4 7.4-10.4 [place] 475322-01-30 12:16:00 Test Item Value Reference Range Interpretation Comments Segs (test code = Segs) 79.9 45.0-75.0 [place] 475322-01-30 12:16:00 Test Item Value Reference Range Interpretation Comments Lymphocytes (test code = Lymphocytes) 10.4 20.0-40.0 [place] 475322-01-30 12:16:00 Test Item Value Reference Range Interpretation Comments Monocytes (test code = Monocytes) 9.4 2.0-12.0 [place] 475322-01-30 12:16:00 Test Item Value Reference Range Interpretation Comments Basophils (test code = 0.3 See_Comment [Aut omated message] The Basophils) system which ge nerated this result tra nsmitted reference range : <=1.0. The reference r shin was not used to int erpret this result as normal/abnormal . [facility] NorthwestOoeeshvEIJPZMFVEC8953-91-59 12:16:00 Test Item Value Reference Range Interpretation Comments Neutrophils # (test code = Neutrophils 9.3 1.5-8.1 #) [facility] NorthwestVtpkvglJXMCBIPZAI3851-40-95 12:16:00 Test Item Value Reference Range Interpretation Comments Lymphocytes # (test code = Lymphocytes 1.2 1.0-5.5 #) [place] 475322-01-30 12:16:00 Test Item Value Reference Range Interpretation Comments Monocytes # (test code 1.1 See_Comment [Aut omated message] The = Monocytes #) system which generated this result tra nsmitted reference range : <=0.8. The reference r shin was not used to int erpret this result as normal/abnormal . [place] 720082-01-30 12:16:00 Test Item Value Reference Range Interpretation Comments Glucose Lvl (test code = Glucose Lvl) 121 70-99 [place] 720082-01-30 12:16:00 Test Item Value Reference Range Interpretation Comments BUN (test code = BUN) 18 7-22 [place] 720082-01-30 12:16:00 Test Item Value Reference Range Interpretation Comments Creatinine Lvl (test code = Creatinine 0.97 0.50-1.40 Lvl) [facility]2022-01-30 12:16:00 Test Item Value Reference Range Interpretation Comments Sodium Lvl (test code = Sodium Lvl) 138 135-145 [place] 720082-01-30 12:16:00 Test Item Value Reference Range Interpretation Comments Potassium Lvl (test code = Potassium 4.1 3.5-5.1 Lvl) [place] 720082-01-30 12:16:00 Test Item Value Reference Range Interpretation Comments Chloride Lvl (test code = Chloride Lvl) 105 95-109 [place] 720082-01-30 12:16:00 Test Item Value Reference Range Interpretation Comments CO2 (test code = CO2) 29 24-32 [place] 720082-01-30 12:16:00 Test Item Value Reference Range Interpretation Comments Calcium Lvl (test code = Calcium Lvl) 8.3 8.5-10.5 [place] 720082-01-30 12:16:00 Test Item Value Reference Range Interpretation Comments AGAP (test code = AGAP) 8.1 10.0-20.0 [facility]2022-01-30 12:16:00 Test Item Value Reference Range Interpretation Comments eGFR (test code = eGFR) 57 [facility] NorthwestYdmbrqiHSOEOINFWL9253-85-60 12:16:00 Test Item Value Reference Range Interpretation Comments WBC (test code = WBC) 11.6 3.7-10.4 [facility] NorthwestSxcdbxlVUZTMVFWWZ0380-85-65 12:16:00 Test Item Value Reference Range Interpretation Comments RBC (test code = RBC) 3.03 4.20-5.40 [facility] NorthwestFkdhsgzGGXRUGJKZK2056-27-17 12:16:00 Test Item Value Reference Range Interpretation Comments Hgb (test code = Hgb) 7.7 12.0-16.0 [place] 475322-01-30 12:16:00 Test Item Value Reference Range Interpretation Comments Hct (test code = Hct) 25.0 36.0-48.0 [facility] NorthwestUpdzsbqGWEAMCCFGW3373-71-66 12:16:00 Test Item Value Reference Range Interpretation Comments MCV (test code = MCV) 82.6 80.0-98.0 [facility] NorthwestOlwqokcUPPKOLFYQW2512-78-75 12:16:00 Test Item Value Reference Range Interpretation Comments MCH (test code = MCH) 25.5 pg 27.0-31.0 [facility] NorthwestFfcsimcTKTBFQWTUR5740-91-50 12:16:00 Test Item Value Reference Range Interpretation Comments MCHC (test code = MCHC) 30.8 32.0-36.0 [facility] NorthwestEjlukvfEXENMJCZZC2927-76-05 12:16:00 Test Item Value Reference Range Interpretation Comments RDW (test code = RDW) 17.5 11.5-14.5 [facility] NorthwestQfeamvgSJAKSEDDZS3753-07-51 12:16:00 Test Item Value Reference Range Interpretation Comments Platelet (test code = Platelet) 233 133-450 [facility] NorthwestPxqhqkhPVRLFSDEYU6799-10-68 12:16:00 Test Item Value Reference Range Interpretation Comments MPV (test code = MPV) 7.4 7.4-10.4 [place] 475322-01-30 12:16:00 Test Item Value Reference Range Interpretation Comments Segs (test code = Segs) 79.9 45.0-75.0 [facility] NorthwestIsynuciRSLCNQYVPR1656-17-09 12:16:00 Test Item Value Reference Range Interpretation Comments Lymphocytes (test code = Lymphocytes) 10.4 20.0-40.0 [place] 475322-01-30 12:16:00 Test Item Value Reference Range Interpretation Comments Monocytes (test code = Monocytes) 9.4 2.0-12.0 [place] 475322-01-30 12:16:00 Test Item Value Reference Range Interpretation Comments Basophils (test code = 0.3 See_Comment [Aut omated message] The Basophils) system which ge nerated this result tra nsmitted reference range : <=1.0. The reference r shin was not used to int erpret this result as normal/abnormal . [place] 475322-01-30 12:16:00 Test Item Value Reference Range Interpretation Comments Neutrophils # (test code = Neutrophils 9.3 1.5-8.1 #) [place] 475322-01-30 12:16:00 Test Item Value Reference Range Interpretation Comments Lymphocytes # (test code = Lymphocytes 1.2 1.0-5.5 #) [place] 475322-01-30 12:16:00 Test Item Value Reference Range Interpretation Comments Monocytes # (test code 1.1 See_Comment [Aut omated message] The = Monocytes #) system which generated this result tra nsmitted reference range : <=0.8. The reference r shin was not used to int erpret this result as normal/abnormal . [place] 720082-01-30 12:16:00 Test Item Value Reference Range Interpretation Comments Glucose Lvl (test code = Glucose Lvl) 121 70-99 [place] 720082-01-30 12:16:00 Test Item Value Reference Range Interpretation Comments BUN (test code = BUN) 18 7-22 [place] 720082-01-30 12:16:00 Test Item Value Reference Range Interpretation Comments Creatinine Lvl (test code = Creatinine 0.97 0.50-1.40 Lvl) [place] 720082-01-30 12:16:00 Test Item Value Reference Range Interpretation Comments Sodium Lvl (test code = Sodium Lvl) 138 135-145 [place] 720082-01-30 12:16:00 Test Item Value Reference Range Interpretation Comments Potassium Lvl (test code = Potassium 4.1 3.5-5.1 Lvl) [place] 720082-01-30 12:16:00 Test Item Value Reference Range Interpretation Comments Chloride Lvl (test code = Chloride Lvl) 105 95-109 [place] 720082-01-30 12:16:00 Test Item Value Reference Range Interpretation Comments CO2 (test code = CO2) 29 24-32 [place] 720082-01-30 12:16:00 Test Item Value Reference Range Interpretation Comments Calcium Lvl (test code = Calcium Lvl) 8.3 8.5-10.5 [place] 720082-01-30 12:16:00 Test Item Value Reference Range Interpretation Comments AGAP (test code = AGAP) 8.1 10.0-20.0 [place] 720082-01-30 12:16:00 Test Item Value Reference Range Interpretation Comments eGFR (test code = eGFR) 57 [place] 475322-01-30 12:16:00 Test Item Value Reference Range Interpretation Comments WBC (test code = WBC) 11.6 3.7-10.4 [place] 475322-01-30 12:16:00 Test Item Value Reference Range Interpretation Comments RBC (test code = RBC) 3.03 4.20-5.40 [place] 475322-01-30 12:16:00 Test Item Value Reference Range Interpretation Comments Hgb (test code = Hgb) 7.7 12.0-16.0 [place] 475322-01-30 12:16:00 Test Item Value Reference Range Interpretation Comments Hct (test code = Hct) 25.0 36.0-48.0 [place] [address]-01-30 12:16:00 Test Item Value Reference Range Interpretation Comments MCV (test code = MCV) 82.6 80.0-98.0 [place] 475322-01-30 12:16:00 Test Item Value Reference Range Interpretation Comments MCH (test code = MCH) 25.5 pg 27.0-31.0 [place] 475322-01-30 12:16:00 Test Item Value Reference Range Interpretation Comments MCHC (test code = MCHC) 30.8 32.0-36.0 [place] 475322-01-30 12:16:00 Test Item Value Reference Range Interpretation Comments RDW (test code = RDW) 17.5 11.5-14.5 [place] 475322-01-30 12:16:00 Test Item Value Reference Range Interpretation Comments Platelet (test code = Platelet) 233 133-450 [facility] NorthwestYhyjlfjLOYWFWSQUS1786-02-75 12:16:00 Test Item Value Reference Range Interpretation Comments MPV (test code = MPV) 7.4 7.4-10.4 [facility] NorthwestYxbxxguRZDYOOMWFD5837-20-39 12:16:00 Test Item Value Reference Range Interpretation Comments Segs (test code = Segs) 79.9 45.0-75.0 [facility] NorthwestHbcsdutFXJQHYFSKV4529-01-62 12:16:00 Test Item Value Reference Range Interpretation Comments Lymphocytes (test code = Lymphocytes) 10.4 20.0-40.0 [place] 475322-01-30 12:16:00 Test Item Value Reference Range Interpretation Comments Monocytes (test code = Monocytes) 9.4 2.0-12.0 [facility] NorthwestRkoahjnMQGLHIMLXX7187-59-69 12:16:00 Test Item Value Reference Range Interpretation Comments Basophils (test code = 0.3 See_Comment [Aut omated message] The Basophils) system which ge nerated this result tra nsmitted reference range : <=1.0. The reference r shin was not used to int erpret this result as normal/abnormal . [facility] NorthwestMaefdwpVEXYJQEVER1093-28-81 12:16:00 Test Item Value Reference Range Interpretation Comments Neutrophils # (test code = Neutrophils 9.3 1.5-8.1 #) [facility] NorthwestPrsoizmUQYIDEHJOC9101-42-14 12:16:00 Test Item Value Reference Range Interpretation Comments Lymphocytes # (test code = Lymphocytes 1.2 1.0-5.5 #) [place] 475322-01-30 12:16:00 Test Item Value Reference Range Interpretation Comments Monocytes # (test code 1.1 See_Comment [Aut omated message] The = Monocytes #) system which generated this result tra nsmitted reference range : <=0.8. The reference r shin was not used to int erpret this result as normal/abnormal . [facility]2022-01-29 08:52:00 Test Item Value Reference Range Interpretation Comments Glucose Lvl (test code = Glucose Lvl) 130 70-99 [place] 720082-01-29 08:52:00 Test Item Value Reference Range Interpretation Comments BUN (test code = BUN) 13 7-22 [place] 720082-01-29 08:52:00 Test Item Value Reference Range Interpretation Comments Creatinine Lvl (test code = Creatinine 0.88 0.50-1.40 Lvl) [place] 720082-01-29 08:52:00 Test Item Value Reference Range Interpretation Comments Sodium Lvl (test code = Sodium Lvl) 142 135-145 [place] 720082-01-29 08:52:00 Test Item Value Reference Range Interpretation Comments Potassium Lvl (test code = Potassium 4.3 3.5-5.1 Lvl) [place] 720082-01-29 08:52:00 Test Item Value Reference Range Interpretation Comments Chloride Lvl (test code = Chloride Lvl) 110 95-109 [place] 720082-01-29 08:52:00 Test Item Value Reference Range Interpretation Comments CO2 (test code = CO2) 28 24-32 [place] 720082-01-29 08:52:00 Test Item Value Reference Range Interpretation Comments Calcium Lvl (test code = Calcium Lvl) 8.3 8.5-10.5 [place] 720082-01-29 08:52:00 Test Item Value Reference Range Interpretation Comments AGAP (test code = AGAP) 8.3 10.0-20.0 [place] 720082-01-29 08:52:00 Test Item Value Reference Range Interpretation Comments eGFR (test code = eGFR) 63 [place] 475322-01-29 08:52:00 Test Item Value Reference Range Interpretation Comments RBC Morph (test code = Normal (10/12/21 2:52 RBC Morph) AM) [place] 475322-01-29 08:52:00 Test Item Value Reference Range Interpretation Comments Plt Morph (test code = Normal (10/12/21 2:52 Plt Morph) AM) [place] 475322-01-29 08:52:00 Test Item Value Reference Range Interpretation Comments Segs (test code = Segs) 91.1 45.0-75.0 [place] 475322-01-29 08:52:00 Test Item Value Reference Range Interpretation Comments Lymphocytes (test code = Lymphocytes) 4.6 20.0-40.0 [place] 475322-01-29 08:52:00 Test Item Value Reference Range Interpretation Comments Monocytes (test code = Monocytes) 3.9 2.0-12.0 [place] 475322-01-29 08:52:00 Test Item Value Reference Range Interpretation Comments Basophils (test code = 0.4 See_Comment [Aut omated message] The Basophils) system which ge nerated this result tra nsmitted reference range : <=1.0. The reference r shin was not used to int erpret this result as normal/abnormal . [place] 475322-01-29 08:52:00 Test Item Value Reference Range Interpretation Comments Neutrophils # (test code = Neutrophils 9.1 1.5-8.1 #) [place] 475322-01-29 08:52:00 Test Item Value Reference Range Interpretation Comments Lymphocytes # (test code = Lymphocytes 0.5 1.0-5.5 #) [place] 475322-01-29 08:52:00 Test Item Value Reference Range Interpretation Comments Monocytes # (test code 0.4 See_Comment [Aut omated message] The = Monocytes #) system which generated this result tra nsmitted reference range : <=0.8. The reference r shin was not used to int erpret this result as normal/abnormal . [place] 475322-01-29 08:52:00 Test Item Value Reference Range Interpretation Comments WBC (test code = WBC) 9.9 3.7-10.4 [place] 475322-01-29 08:52:00 Test Item Value Reference Range Interpretation Comments RBC (test code = RBC) 3.80 4.20-5.40 [place] 475322-01-29 08:52:00 Test Item Value Reference Range Interpretation Comments Hgb (test code = Hgb) 10.0 12.0-16.0 [place] 475322-01-29 08:52:00 Test Item Value Reference Range Interpretation Comments Hct (test code = Hct) 31.7 36.0-48.0 [place] 475322-01-29 08:52:00 Test Item Value Reference Range Interpretation Comments MCV (test code = MCV) 83.4 80.0-98.0 [place] [address]-01-29 08:52:00 Test Item Value Reference Range Interpretation Comments MCH (test code = MCH) 26.3 pg 27.0-31.0 [place] 475322-01-29 08:52:00 Test Item Value Reference Range Interpretation Comments MCHC (test code = MCHC) 31.6 32.0-36.0 [place] 475322-01-29 08:52:00 Test Item Value Reference Range Interpretation Comments RDW (test code = RDW) 17.1 11.5-14.5 [place] 475322-01-29 08:52:00 Test Item Value Reference Range Interpretation Comments Platelet (test code = Platelet) 283 133-450 [place] 475322-01-29 08:52:00 Test Item Value Reference Range Interpretation Comments MPV (test code = MPV) 7.3 7.4-10.4 [place] 720082-01-29 08:52:00 Test Item Value Reference Range Interpretation Comments Glucose Lvl (test code = Glucose Lvl) 130 70-99 [place] 720082-01-29 08:52:00 Test Item Value Reference Range Interpretation Comments BUN (test code = BUN) 13 7-22 [place] 720082-01-29 08:52:00 Test Item Value Reference Range Interpretation Comments Creatinine Lvl (test code = Creatinine 0.88 0.50-1.40 Lvl) [place] 720082-01-29 08:52:00 Test Item Value Reference Range Interpretation Comments Sodium Lvl (test code = Sodium Lvl) 142 135-145 [place] 720082-01-29 08:52:00 Test Item Value Reference Range Interpretation Comments Potassium Lvl (test code = Potassium 4.3 3.5-5.1 Lvl) [place] 720082-01-29 08:52:00 Test Item Value Reference Range Interpretation Comments Chloride Lvl (test code = Chloride Lvl) 110 95-109 [place] 720082-01-29 08:52:00 Test Item Value Reference Range Interpretation Comments CO2 (test code = CO2) 28 24-32 [place] 720082-01-29 08:52:00 Test Item Value Reference Range Interpretation Comments Calcium Lvl (test code = Calcium Lvl) 8.3 8.5-10.5 [place] 720082-01-29 08:52:00 Test Item Value Reference Range Interpretation Comments AGAP (test code = AGAP) 8.3 10.0-20.0 [place] 720082-01-29 08:52:00 Test Item Value Reference Range Interpretation Comments eGFR (test code = eGFR) 63 [place] 475322-01-29 08:52:00 Test Item Value Reference Range Interpretation Comments RBC Morph (test code = Normal (10/12/21 2:52 RBC Morph) AM) [place] 475322-01-29 08:52:00 Test Item Value Reference Range Interpretation Comments Plt Morph (test code = Normal (10/12/21 2:52 Plt Morph) AM) [place] 475322-01-29 08:52:00 Test Item Value Reference Range Interpretation Comments Segs (test code = Segs) 91.1 45.0-75.0 [place] 475322-01-29 08:52:00 Test Item Value Reference Range Interpretation Comments Lymphocytes (test code = Lymphocytes) 4.6 20.0-40.0 [place] 475322-01-29 08:52:00 Test Item Value Reference Range Interpretation Comments Monocytes (test code = Monocytes) 3.9 2.0-12.0 [place] 475322-01-29 08:52:00 Test Item Value Reference Range Interpretation Comments Basophils (test code = 0.4 See_Comment [Aut omated message] The Basophils) system which ge nerated this result tra nsmitted reference range : <=1.0. The reference r shin was not used to int erpret this result as normal/abnormal . [place] 475322-01-29 08:52:00 Test Item Value Reference Range Interpretation Comments Neutrophils # (test code = Neutrophils 9.1 1.5-8.1 #) [place] 475322-01-29 08:52:00 Test Item Value Reference Range Interpretation Comments Lymphocytes # (test code = Lymphocytes 0.5 1.0-5.5 #) [place] 475322-01-29 08:52:00 Test Item Value Reference Range Interpretation Comments Monocytes # (test code 0.4 See_Comment [Aut omated message] The = Monocytes #) system which generated this result tra nsmitted reference range : <=0.8. The reference r shin was not used to int erpret this result as normal/abnormal . [facility] NorthwestZnmapurLYDZDQUQTZ0174-52-45 08:52:00 Test Item Value Reference Range Interpretation Comments WBC (test code = WBC) 9.9 3.7-10.4 [facility] NorthwestDmleuekSCYFJMYBZI6995-53-86 08:52:00 Test Item Value Reference Range Interpretation Comments RBC (test code = RBC) 3.80 4.20-5.40 [facility] NorthwestEawpqlpJKRYJIFBLQ3301-32-14 08:52:00 Test Item Value Reference Range Interpretation Comments Hgb (test code = Hgb) 10.0 12.0-16.0 [facility] NorthwestLxnyougFLWLOZLSUL4154-36-80 08:52:00 Test Item Value Reference Range Interpretation Comments Hct (test code = Hct) 31.7 36.0-48.0 [facility] NorthwestGoqxieqJOPBUQJCUI1526-85-00 08:52:00 Test Item Value Reference Range Interpretation Comments MCV (test code = MCV) 83.4 80.0-98.0 [facility] NorthwestYiurgozLOOEAEZTOW9466-11-27 08:52:00 Test Item Value Reference Range Interpretation Comments MCH (test code = MCH) 26.3 pg 27.0-31.0 [facility] NorthwestSwhpuirDGWXOYFAYX8812-90-29 08:52:00 Test Item Value Reference Range Interpretation Comments MCHC (test code = MCHC) 31.6 32.0-36.0 [facility] NorthwestMiwosouXRSCMWEJZK5580-86-48 08:52:00 Test Item Value Reference Range Interpretation Comments RDW (test code = RDW) 17.1 11.5-14.5 [place] 475322-01-29 08:52:00 Test Item Value Reference Range Interpretation Comments Platelet (test code = Platelet) 283 133-450 [facility] NorthwestVtdractELVTPYRDLZ4270-21-35 08:52:00 Test Item Value Reference Range Interpretation Comments MPV (test code = MPV) 7.3 7.4-10.4 [facility]2022-01-29 08:52:00 Test Item Value Reference Range Interpretation Comments Glucose Lvl (test code = Glucose Lvl) 130 70-99 [place] 720082-01-29 08:52:00 Test Item Value Reference Range Interpretation Comments BUN (test code = BUN) 13 7-22 [place] 720082-01-29 08:52:00 Test Item Value Reference Range Interpretation Comments Creatinine Lvl (test code = Creatinine 0.88 0.50-1.40 Lvl) [place] 720082-01-29 08:52:00 Test Item Value Reference Range Interpretation Comments Sodium Lvl (test code = Sodium Lvl) 142 135-145 [place] 720082-01-29 08:52:00 Test Item Value Reference Range Interpretation Comments Potassium Lvl (test code = Potassium 4.3 3.5-5.1 Lvl) [place] 720082-01-29 08:52:00 Test Item Value Reference Range Interpretation Comments Chloride Lvl (test code = Chloride Lvl) 110 95-109 [place] 720082-01-29 08:52:00 Test Item Value Reference Range Interpretation Comments CO2 (test code = CO2) 28 24-32 [place] 720082-01-29 08:52:00 Test Item Value Reference Range Interpretation Comments Calcium Lvl (test code = Calcium Lvl) 8.3 8.5-10.5 [place] 720082-01-29 08:52:00 Test Item Value Reference Range Interpretation Comments AGAP (test code = AGAP) 8.3 10.0-20.0 [place] 720082-01-29 08:52:00 Test Item Value Reference Range Interpretation Comments eGFR (test code = eGFR) 63 [place] 475322-01-29 08:52:00 Test Item Value Reference Range Interpretation Comments RBC Morph (test code = Normal (10/12/21 2:52 RBC Morph) AM) [place] 475322-01-29 08:52:00 Test Item Value Reference Range Interpretation Comments Plt Morph (test code = Normal (10/12/21 2:52 Plt Morph) AM) [facility] NorthwestNefsfubDKLMQOTALW5763-07-60 08:52:00 Test Item Value Reference Range Interpretation Comments Segs (test code = Segs) 91.1 45.0-75.0 [place] 475322-01-29 08:52:00 Test Item Value Reference Range Interpretation Comments Lymphocytes (test code = Lymphocytes) 4.6 20.0-40.0 [place] 475322-01-29 08:52:00 Test Item Value Reference Range Interpretation Comments Monocytes (test code = Monocytes) 3.9 2.0-12.0 [place] 475322-01-29 08:52:00 Test Item Value Reference Range Interpretation Comments Basophils (test code = 0.4 See_Comment [Aut omated message] The Basophils) system which ge nerated this result tra nsmitted reference range : <=1.0. The reference r shin was not used to int erpret this result as normal/abnormal . [place] 475322-01-29 08:52:00 Test Item Value Reference Range Interpretation Comments Neutrophils # (test code = Neutrophils 9.1 1.5-8.1 #) [place] 475322-01-29 08:52:00 Test Item Value Reference Range Interpretation Comments Lymphocytes # (test code = Lymphocytes 0.5 1.0-5.5 #) [place] 475322-01-29 08:52:00 Test Item Value Reference Range Interpretation Comments Monocytes # (test code 0.4 See_Comment [Aut omated message] The = Monocytes #) system which generated this result tra nsmitted reference range : <=0.8. The reference r shin was not used to int erpret this result as normal/abnormal . [facility]TwoifcgNRFEPDZVMU4392-28-97 08:52:00 Test Item Value Reference Range Interpretation Comments WBC (test code = WBC) 9.9 3.7-10.4 [place] 475322-01-29 08:52:00 Test Item Value Reference Range Interpretation Comments RBC (test code = RBC) 3.80 4.20-5.40 [place] [address]-01-29 08:52:00 Test Item Value Reference Range Interpretation Comments Hgb (test code = Hgb) 10.0 12.0-16.0 [place] [address]686-01-29 08:52:00 Test Item Value Reference Range Interpretation Comments Hct (test code = Hct) 31.7 36.0-48.0 [place] 475322-01-29 08:52:00 Test Item Value Reference Range Interpretation Comments MCV (test code = MCV) 83.4 80.0-98.0 [facility]DENAG[facility]BJA7938[facility]40-36 08:52:00 Test Item Value Reference Range Interpretation Comments MCH (test code = MCH) 26.3 pg 27.0-31.0 [facility] NorthwestMfvuuiaDUDTUXVTLH6308-67-21 08:52:00 Test Item Value Reference Range Interpretation Comments MCHC (test code = MCHC) 31.6 32.0-36.0 [facility] NorthwestSwjwwrzCYPAURFBGN8368-73-49 08:52:00 Test Item Value Reference Range Interpretation Comments RDW (test code = RDW) 17.1 11.5-14.5 [facility] HospitalZfljxftFBVCOBMRXS8397-85-66 08:52:00 Test Item Value Reference Range Interpretation Comments Platelet (test code = Platelet) 283 133-450 [facility] NorthwestRqhvsydLRCDAHQIFU2506-20-14 08:52:00 Test Item Value Reference Range Interpretation Comments MPV (test code = MPV) 7.3 7.4-10.4 [facility] HospitalBiozone Pharmaceuticals [id number] 19:43:00 Test Item Value Reference Range Interpretation Comments RBC product (test code Product available = RBC product) 5(10/11/21 1:43 PM) [facility] [id number] 19:43:00 Test Item Value Reference Range Interpretation Comments RBC product (test code Product available = RBC product) 5(10/11/21 1:43 PM) [facility] [employer] [id number] 19:43:00 Test Item Value Reference Range Interpretation Comments RBC product (test code Product available = RBC product) 5(10/11/21 1:43 PM) [facility] [id number] 18:49:00 Test Item Value Reference Range Interpretation Comments ABO/Rh (test code = ABO/Rh) O POS [facility] [employer] [id number] 18:49:00 Test Item Value Reference Range Interpretation Comments Antibody Scrn (test Negative (10/11/21 code = Antibody Scrn) 12:49 PM) [facility] [id number] 18:49:00 Test Item Value Reference Range Interpretation Comments ABO/Rh (test code = ABO/Rh) O POS [facility] [employer] [id number] 18:49:00 Test Item Value Reference Range Interpretation Comments Antibody Scrn (test Negative (10/11/21 code = Antibody Scrn) 12:49 PM) [facility] [id number] 18:49:00 Test Item Value Reference Range Interpretation Comments ABO/Rh (test code = ABO/Rh) O POS [facility] [id number] 18:49:00 Test Item Value Reference Range Interpretation Comments Antibody Scrn (test Negative (10/11/21 code = Antibody Scrn) 12:49 PM) [facility] [id number] 17:23:00 Test Item Value Reference Range Interpretation Comments RBC product (test code Product available = RBC product) 4(10/11/21 11:23 AM) [facility] [id number] 17:23:00 Test Item Value Reference Range Interpretation Comments RBC product (test code Product available = RBC product) 4(10/11/21 11:23 AM) [facility] [id number] 17:23:00 Test Item Value Reference Range Interpretation Comments RBC product (test code Product available = RBC product) 4(10/11/21 11:23 AM) [id number] 16:38:00 Test Item Value Reference Range Interpretation Comments Coronavirus (COVID-19) Not Detected (10/11/21 MADELINE (test code = 10:38 AM) Coronavirus (COVID-19) MADELINE) [facility]la[id number] 16:38:00 Test Item Value Reference Range Interpretation Comments Coronavirus (COVID-19) Not Detected (10/11/21 MADELINE (test code = 10:38 AM) Coronavirus (COVID-19) MADELINE) [id number] 16:38:00 Test Item Value Reference Range Interpretation Comments Coronavirus (COVID-19) Not Detected (10/11/21 MADELINE (test code = 10:38 AM) Coronavirus (COVID-19) MADELINE) [facility] [id number] 16:24:00 Test Item Value Reference Range Interpretation Comments ABO/Rh (test code = ABO/Rh) O POS [facility] [id number] 16:24:00 Test Item Value Reference Range Interpretation Comments Antibody Scrn (test Negative (10/03/21 code = Antibody Scrn) 10:24 AM) [facility] [employer] [id number] 16:24:00 Test Item Value Reference Range Interpretation Comments ABO/Rh (test code = ABO/Rh) O POS [facility] [employer] [id number] 16:24:00 Test Item Value Reference Range Interpretation Comments Antibody Scrn (test Negative (10/03/21 code = Antibody Scrn) 10:24 AM) [facility] [employer] [id number] 16:24:00 Test Item Value Reference Range Interpretation Comments ABO/Rh (test code = ABO/Rh) O POS [facility] [employer] [id number] 16:24:00 Test Item Value Reference Range Interpretation Comments Antibody Scrn (test Negative (10/03/21 code = Antibody Scrn) 10:24 AM) [facility] [id number] 15:00:00 Test Item Value Reference Range Interpretation Comments Coronavirus (COVID-19) Not Detected (10/03/21 MADELINE (test code = 9:00 AM) Coronavirus (COVID-19) MADELINE) [facility]oSrfrpllTOIOJUQRPW3374-90-17 15:00:00 Test Item Value Reference Range Interpretation Comments Coronavirus (COVID-19) Not Detected (10/03/21 MADELINE (test code = 9:00 AM) Coronavirus (COVID-19) MADELINE) [facility] [id number] 15:00:00 Test Item Value Reference Range Interpretation Comments Coronavirus (COVID-19) Not Detected (10/03/21 MADELINE (test code = 9:00 AM) Coronavirus (COVID-19) MADELINE) [employer]2022-01-17 11:56:00 Test Item Value Reference Range Interpretation Comments Glucose Lvl (test code = Glucose Lvl) 111 70-99 [facility] [employer]2022-01-17 11:56:00 Test Item Value Reference Range Interpretation Comments BUN (test code = BUN) 21 - [facility] Penemarie K Murphy [id number] 11:56:00 Test Item Value Reference Range Interpretation Comments Creatinine Lvl (test code = Creatinine 1.29 0.50-1.40 Lvl) [facility] [employer]2022-01-17 11:56:00 Test Item Value Reference Range Interpretation Comments Sodium Lvl (test code = Sodium Lvl) 141 135-145 [place] 720082-01-17 11:56:00 Test Item Value Reference Range Interpretation Comments Potassium Lvl (test code = Potassium 3.9 3.5-5.1 Lvl) [place] 720082-01-17 11:56:00 Test Item Value Reference Range Interpretation Comments Chloride Lvl (test code = Chloride Lvl) 102 95-109 [place] 720082-01-17 11:56:00 Test Item Value Reference Range Interpretation Comments CO2 (test code = CO2) 33 24-32 [place] 720082-01-17 11:56:00 Test Item Value Reference Range Interpretation Comments Calcium Lvl (test code = Calcium Lvl) 8.5 8.5-10.5 [place] 720082-01-17 11:56:00 Test Item Value Reference Range Interpretation Comments AGAP (test code = AGAP) 9.9 10.0-20.0 [place] 720082-01-17 11:56:00 Test Item Value Reference Range Interpretation Comments eGFR (test code = eGFR) 40 [place] 720082-01-17 11:56:00 Test Item Value Reference Range Interpretation Comments Magnesium Lvl (test code = Magnesium 1.9 1.8-2.4 Lvl) [place] 720082-01-17 11:56:00 Test Item Value Reference Range Interpretation Comments Phosphorus (test code = Phosphorus) 3.5 2.5-4.5 [place] 475322-01-17 11:56:00 Test Item Value Reference Range Interpretation Comments Segs (test code = Segs) 61.4 45.0-75.0 [place] 66[address]-01-17 11:56:00 Test Item Value Reference Range Interpretation Comments Lymphocytes (test code = Lymphocytes) 25.3 20.0-40.0 [place] 66[address]-01-17 11:56:00 Test Item Value Reference Range Interpretation Comments Monocytes (test code = Monocytes) 12.7 2.0-12.0 [place] 66[address]-01-17 11:56:00 Test Item Value Reference Range Interpretation Comments Basophils (test code = 0.6 See_Comment [Aut omated message] The Basophils) system which ge nerated this result tra nsmitted reference range : <=1.0. The reference r shin was not used to int erpret this result as normal/abnormal . [place] 475322-01-17 11:56:00 Test Item Value Reference Range Interpretation Comments Neutrophils # (test code = Neutrophils 3.7 1.5-8.1 #) [facility] No[id number] 11:56:00 Test Item Value Reference Range Interpretation Comments Lymphocytes # (test code = Lymphocytes 1.5 1.0-5.5 #) [place] 475322-01-17 11:56:00 Test Item Value Reference Range Interpretation Comments Monocytes # (test code 0.8 See_Comment [Aut omated message] The = Monocytes #) system which generated this result tra nsmitted reference range : <=0.8. The reference r shin was not used to int erpret this result as normal/abnormal . [place] 475322-01-17 11:56:00 Test Item Value Reference Range Interpretation Comments WBC (test code = WBC) 6.0 3.7-10.4 [place] 475322-01-17 11:56:00 Test Item Value Reference Range Interpretation Comments RBC (test code = RBC) 4.13 4.20-5.40 [place] 475322-01-17 11:56:00 Test Item Value Reference Range Interpretation Comments Hgb (test code = Hgb) 10.9 12.0-16.0 [place] 475322-01-17 11:56:00 Test Item Value Reference Range Interpretation Comments Hct (test code = Hct) 34.2 36.0-48.0 [place] 475322-01-17 11:56:00 Test Item Value Reference Range Interpretation Comments MCV (test code = MCV) 82.9 80.0-98.0 [place] [address]-01-17 11:56:00 Test Item Value Reference Range Interpretation Comments MCH (test code = MCH) 26.4 pg 27.0-31.0 [place] 475322-01-17 11:56:00 Test Item Value Reference Range Interpretation Comments MCHC (test code = MCHC) 31.9 32.0-36.0 [place] 475322-01-17 11:56:00 Test Item Value Reference Range Interpretation Comments RDW (test code = RDW) 17.0 11.5-14.5 [place] 475322-01-17 11:56:00 Test Item Value Reference Range Interpretation Comments Platelet (test code = Platelet) 279 133-450 [place] 475322-01-17 11:56:00 Test Item Value Reference Range Interpretation Comments MPV (test code = MPV) 7.8 7.4-10.4 [place] 720082-01-17 11:56:00 Test Item Value Reference Range Interpretation Comments Glucose Lvl (test code = Glucose Lvl) 111 70-99 [place] 720082-01-17 11:56:00 Test Item Value Reference Range Interpretation Comments BUN (test code = BUN) 21 7-22 [place] 720082-01-17 11:56:00 Test Item Value Reference Range Interpretation Comments Creatinine Lvl (test code = Creatinine 1.29 0.50-1.40 Lvl) [place] 720082-01-17 11:56:00 Test Item Value Reference Range Interpretation Comments Sodium Lvl (test code = Sodium Lvl) 141 135-145 [place] 720082-01-17 11:56:00 Test Item Value Reference Range Interpretation Comments Potassium Lvl (test code = Potassium 3.9 3.5-5.1 Lvl) [facility]2022-01-17 11:56:00 Test Item Value Reference Range Interpretation Comments Chloride Lvl (test code = Chloride Lvl) 102 95-109 [place] 720082-01-17 11:56:00 Test Item Value Reference Range Interpretation Comments CO2 (test code = CO2) 33 24-32 [place] 720082-01-17 11:56:00 Test Item Value Reference Range Interpretation Comments Calcium Lvl (test code = Calcium Lvl) 8.5 8.5-10.5 [place] 720082-01-17 11:56:00 Test Item Value Reference Range Interpretation Comments AGAP (test code = AGAP) 9.9 10.0-20.0 [place] 720082-01-17 11:56:00 Test Item Value Reference Range Interpretation Comments eGFR (test code = eGFR) 40 [place] 720082-01-17 11:56:00 Test Item Value Reference Range Interpretation Comments Magnesium Lvl (test code = Magnesium 1.9 1.8-2.4 Lvl) [facility]2022-01-17 11:56:00 Test Item Value Reference Range Interpretation Comments Phosphorus (test code = Phosphorus) 3.5 2.5-4.5 [place] 475322-01-17 11:56:00 Test Item Value Reference Range Interpretation Comments Segs (test code = Segs) 61.4 45.0-75.0 [place] 475322-01-17 11:56:00 Test Item Value Reference Range Interpretation Comments Lymphocytes (test code = Lymphocytes) 25.3 20.0-40.0 [place] 475322-01-17 11:56:00 Test Item Value Reference Range Interpretation Comments Monocytes (test code = Monocytes) 12.7 2.0-12.0 [place] 475322-01-17 11:56:00 Test Item Value Reference Range Interpretation Comments Basophils (test code = 0.6 See_Comment [Aut omated message] The Basophils) system which ge nerated this result tra nsmitted reference range : <=1.0. The reference r shin was not used to int erpret this result as normal/abnormal . [place] [address]-01-17 11:56:00 Test Item Value Reference Range Interpretation Comments Neutrophils # (test code = Neutrophils 3.7 1.5-8.1 #) [place] [address]-01-17 11:56:00 Test Item Value Reference Range Interpretation Comments Lymphocytes # (test code = Lymphocytes 1.5 1.0-5.5 #) [place] [address]-01-17 11:56:00 Test Item Value Reference Range Interpretation Comments Monocytes # (test code 0.8 See_Comment [Aut omated message] The = Monocytes #) system which generated this result tra nsmitted reference range : <=0.8. The reference r shin was not used to int erpret this result as normal/abnormal . [place] [address]-01-17 11:56:00 Test Item Value Reference Range Interpretation Comments WBC (test code = WBC) 6.0 3.7-10.4 [place] 475322-01-17 11:56:00 Test Item Value Reference Range Interpretation Comments RBC (test code = RBC) 4.13 4.20-5.40 [place] 475322-01-17 11:56:00 Test Item Value Reference Range Interpretation Comments Hgb (test code = Hgb) 10.9 12.0-16.0 [place] 475322-01-17 11:56:00 Test Item Value Reference Range Interpretation Comments Hct (test code = Hct) 34.2 36.0-48.0 [place] 475322-01-17 11:56:00 Test Item Value Reference Range Interpretation Comments MCV (test code = MCV) 82.9 80.0-98.0 [place] 475322-01-17 11:56:00 Test Item Value Reference Range Interpretation Comments MCH (test code = MCH) 26.4 pg 27.0-31.0 [place] 475322-01-17 11:56:00 Test Item Value Reference Range Interpretation Comments MCHC (test code = MCHC) 31.9 32.0-36.0 [place] 475322-01-17 11:56:00 Test Item Value Reference Range Interpretation Comments RDW (test code = RDW) 17.0 11.5-14.5 [place] 475322-01-17 11:56:00 Test Item Value Reference Range Interpretation Comments Platelet (test code = Platelet) 279 133-450 [place] 475322-01-17 11:56:00 Test Item Value Reference Range Interpretation Comments MPV (test code = MPV) 7.8 7.4-10.4 [facility]2022-01-17 11:56:00 Test Item Value Reference Range Interpretation Comments Glucose Lvl (test code = Glucose Lvl) 111 70-99 [place] 720082-01-17 11:56:00 Test Item Value Reference Range Interpretation Comments BUN (test code = BUN) 21 7-22 [place] 720082-01-17 11:56:00 Test Item Value Reference Range Interpretation Comments Creatinine Lvl (test code = Creatinine 1.29 0.50-1.40 Lvl) [place] 720082-01-17 11:56:00 Test Item Value Reference Range Interpretation Comments Sodium Lvl (test code = Sodium Lvl) 141 135-145 [place] 720082-01-17 11:56:00 Test Item Value Reference Range Interpretation Comments Potassium Lvl (test code = Potassium 3.9 3.5-5.1 Lvl) [place] 720082-01-17 11:56:00 Test Item Value Reference Range Interpretation Comments Chloride Lvl (test code = Chloride Lvl) 102 95-109 [place] 720082-01-17 11:56:00 Test Item Value Reference Range Interpretation Comments CO2 (test code = CO2) 33 24-32 [place] 720082-01-17 11:56:00 Test Item Value Reference Range Interpretation Comments Calcium Lvl (test code = Calcium Lvl) 8.5 8.5-10.5 [place] 720082-01-17 11:56:00 Test Item Value Reference Range Interpretation Comments AGAP (test code = AGAP) 9.9 10.0-20.0 [place] 720082-01-17 11:56:00 Test Item Value Reference Range Interpretation Comments eGFR (test code = eGFR) 40 [place] 720082-01-17 11:56:00 Test Item Value Reference Range Interpretation Comments Magnesium Lvl (test code = Magnesium 1.9 1.8-2.4 Lvl) [place] 720082-01-17 11:56:00 Test Item Value Reference Range Interpretation Comments Phosphorus (test code = Phosphorus) 3.5 2.5-4.5 [place] [address]-01-17 11:56:00 Test Item Value Reference Range Interpretation Comments Segs (test code = Segs) 61.4 45.0-75.0 [place] 475322-01-17 11:56:00 Test Item Value Reference Range Interpretation Comments Lymphocytes (test code = Lymphocytes) 25.3 20.0-40.0 [place] [address]-01-17 11:56:00 Test Item Value Reference Range Interpretation Comments Monocytes (test code = Monocytes) 12.7 2.0-12.0 [place] [address]-01-17 11:56:00 Test Item Value Reference Range Interpretation Comments Basophils (test code = 0.6 See_Comment [Aut omated message] The Basophils) system which ge nerated this result tra nsmitted reference range : <=1.0. The reference r shin was not used to int erpret this result as normal/abnormal . [place] [address]-01-17 11:56:00 Test Item Value Reference Range Interpretation Comments Neutrophils # (test code = Neutrophils 3.7 1.5-8.1 #) [place] 475322-01-17 11:56:00 Test Item Value Reference Range Interpretation Comments Lymphocytes # (test code = Lymphocytes 1.5 1.0-5.5 #) [place] 475322-01-17 11:56:00 Test Item Value Reference Range Interpretation Comments Monocytes # (test code 0.8 See_Comment [Aut omated message] The = Monocytes #) system which generated this result tra nsmitted reference range : <=0.8. The reference r shin was not used to int erpret this result as normal/abnormal . [place] [address]-01-17 11:56:00 Test Item Value Reference Range Interpretation Comments WBC (test code = WBC) 6.0 3.7-10.4 [place] 475322-01-17 11:56:00 Test Item Value Reference Range Interpretation Comments RBC (test code = RBC) 4.13 4.20-5.40 [place] [address]-01-17 11:56:00 Test Item Value Reference Range Interpretation Comments Hgb (test code = Hgb) 10.9 12.0-16.0 [place] [address]-01-17 11:56:00 Test Item Value Reference Range Interpretation Comments Hct (test code = Hct) 34.2 36.0-48.0 [place] [address]-01-17 11:56:00 Test Item Value Reference Range Interpretation Comments MCV (test code = MCV) 82.9 80.0-98.0 [place] [address]-01-17 11:56:00 Test Item Value Reference Range Interpretation Comments MCH (test code = MCH) 26.4 pg 27.0-31.0 [place] [address]-01-17 11:56:00 Test Item Value Reference Range Interpretation Comments MCHC (test code = MCHC) 31.9 32.0-36.0 [place] [address]-01-17 11:56:00 Test Item Value Reference Range Interpretation Comments RDW (test code = RDW) 17.0 11.5-14.5 [place] 475322-01-17 11:56:00 Test Item Value Reference Range Interpretation Comments Platelet (test code = Platelet) 279 133-450 [place] 475322-01-17 11:56:00 Test Item Value Reference Range Interpretation Comments MPV (test code = MPV) 7.8 7.4-10.4 [place] 720082-01-16 10:21:00 Test Item Value Reference Range Interpretation Comments Glucose Lvl (test code = Glucose Lvl) 110 70-99 [place] 720082-01-16 10:21:00 Test Item Value Reference Range Interpretation Comments BUN (test code = BUN) 17 7-22 [place] 720082-01-16 10:21:00 Test Item Value Reference Range Interpretation Comments Creatinine Lvl (test code = Creatinine 1.17 0.50-1.40 Lvl) [place] 720082-01-16 10:21:00 Test Item Value Reference Range Interpretation Comments Sodium Lvl (test code = Sodium Lvl) 141 135-145 [place] 720082-01-16 10:21:00 Test Item Value Reference Range Interpretation Comments Potassium Lvl (test code = Potassium 3.1 3.5-5.1 Lvl) [facility]2022-01-16 10:21:00 Test Item Value Reference Range Interpretation Comments Chloride Lvl (test code = Chloride Lvl) 99 95-109 [place] 720082-01-16 10:21:00 Test Item Value Reference Range Interpretation Comments CO2 (test code = CO2) 35 24-32 [place] 720082-01-16 10:21:00 Test Item Value Reference Range Interpretation Comments Calcium Lvl (test code = Calcium Lvl) 8.6 8.5-10.5 [place] 720082-01-16 10:21:00 Test Item Value Reference Range Interpretation Comments AGAP (test code = AGAP) 10.1 10.0-20.0 [place] 720082-01-16 10:21:00 Test Item Value Reference Range Interpretation Comments eGFR (test code = eGFR) 45 [place] 720082-01-16 10:21:00 Test Item Value Reference Range Interpretation Comments Magnesium Lvl (test code = Magnesium 1.9 1.8-2.4 Lvl) [facility]2022-01-16 10:21:00 Test Item Value Reference Range Interpretation Comments Phosphorus (test code = Phosphorus) 3.1 2.5-4.5 [place] 475322-01-16 10:21:00 Test Item Value Reference Range Interpretation Comments Segs (test code = Segs) 65.8 45.0-75.0 [place] 475322-01-16 10:21:00 Test Item Value Reference Range Interpretation Comments Lymphocytes (test code = Lymphocytes) 20.6 20.0-40.0 [place] 475322-01-16 10:21:00 Test Item Value Reference Range Interpretation Comments Monocytes (test code = Monocytes) 12.8 2.0-12.0 [place] 475322-01-16 10:21:00 Test Item Value Reference Range Interpretation Comments Basophils (test code = 0.8 See_Comment [Aut omated message] The Basophils) system which ge nerated this result tra nsmitted reference range : <=1.0. The reference r shin was not used to int erpret this result as normal/abnormal . [facility]su[facility]PZNU[facility]KSJ1959-89-77 10:21:00 Test Item Value Reference Range Interpretation Comments Neutrophils # (test code = Neutrophils 4.3 1.5-8.1 #) [place] 475322-01-16 10:21:00 Test Item Value Reference Range Interpretation Comments Lymphocytes # (test code = Lymphocytes 1.3 1.0-5.5 #) [place] [address]-01-16 10:21:00 Test Item Value Reference Range Interpretation Comments Monocytes # (test code 0.8 See_Comment [Aut omated message] The = Monocytes #) system which generated this result tra nsmitted reference range : <=0.8. The reference r shin was not used to int erpret this result as normal/abnormal . [place] [address]-01-16 10:21:00 Test Item Value Reference Range Interpretation Comments WBC (test code = WBC) 6.5 3.7-10.4 [place] 475322-01-16 10:21:00 Test Item Value Reference Range Interpretation Comments RBC (test code = RBC) 4.15 4.20-5.40 [place] 475322-01-16 10:21:00 Test Item Value Reference Range Interpretation Comments Hgb (test code = Hgb) 11.1 12.0-16.0 [place] 475322-01-16 10:21:00 Test Item Value Reference Range Interpretation Comments Hct (test code = Hct) 34.2 36.0-48.0 [place] 475322-01-16 10:21:00 Test Item Value Reference Range Interpretation Comments MCV (test code = MCV) 82.3 80.0-98.0 [place] 475322-01-16 10:21:00 Test Item Value Reference Range Interpretation Comments MCH (test code = MCH) 26.7 pg 27.0-31.0 [facility] NorthwestZkshifdROSJSWEXPF6321-75-86 10:21:00 Test Item Value Reference Range Interpretation Comments MCHC (test code = MCHC) 32.5 32.0-36.0 [facility] NorthwestVocrtzfQKRHHFBFQF9615-23-18 10:21:00 Test Item Value Reference Range Interpretation Comments RDW (test code = RDW) 16.6 11.5-14.5 [facility] NorthwestAxwcrjqFTANHHGAEM2360-20-58 10:21:00 Test Item Value Reference Range Interpretation Comments Platelet (test code = Platelet) 267 133-450 [facility] NorthwestDesjfubPOXSYQCMDG9808-03-30 10:21:00 Test Item Value Reference Range Interpretation Comments MPV (test code = MPV) 8.2 7.4-10.4 [facility]2022-01-16 10:21:00 Test Item Value Reference Range Interpretation Comments Glucose Lvl (test code = Glucose Lvl) 110 70-99 [facility]2022-01-16 10:21:00 Test Item Value Reference Range Interpretation Comments BUN (test code = BUN) 17 7-22 [place] 720082-01-16 10:21:00 Test Item Value Reference Range Interpretation Comments Creatinine Lvl (test code = Creatinine 1.17 0.50-1.40 Lvl) [place] 720082-01-16 10:21:00 Test Item Value Reference Range Interpretation Comments Sodium Lvl (test code = Sodium Lvl) 141 135-145 [facility]2022-01-16 10:21:00 Test Item Value Reference Range Interpretation Comments Potassium Lvl (test code = Potassium 3.1 3.5-5.1 Lvl) [place] 720082-01-16 10:21:00 Test Item Value Reference Range Interpretation Comments Chloride Lvl (test code = Chloride Lvl) 99 95-109 [place] 720082-01-16 10:21:00 Test Item Value Reference Range Interpretation Comments CO2 (test code = CO2) 35 24-32 [place] 720082-01-16 10:21:00 Test Item Value Reference Range Interpretation Comments Calcium Lvl (test code = Calcium Lvl) 8.6 8.5-10.5 [place] 720082-01-16 10:21:00 Test Item Value Reference Range Interpretation Comments AGAP (test code = AGAP) 10.1 10.0-20.0 [place] 720082-01-16 10:21:00 Test Item Value Reference Range Interpretation Comments eGFR (test code = eGFR) 45 [place] 720082-01-16 10:21:00 Test Item Value Reference Range Interpretation Comments Magnesium Lvl (test code = Magnesium 1.9 1.8-2.4 Lvl) [place] 720082-01-16 10:21:00 Test Item Value Reference Range Interpretation Comments Phosphorus (test code = Phosphorus) 3.1 2.5-4.5 [place] 475322-01-16 10:21:00 Test Item Value Reference Range Interpretation Comments Segs (test code = Segs) 65.8 45.0-75.0 [place] 475322-01-16 10:21:00 Test Item Value Reference Range Interpretation Comments Lymphocytes (test code = Lymphocytes) 20.6 20.0-40.0 [place] 66686-01-16 10:21:00 Test Item Value Reference Range Interpretation Comments Monocytes (test code = Monocytes) 12.8 2.0-12.0 [place] 66686-01-16 10:21:00 Test Item Value Reference Range Interpretation Comments Basophils (test code = 0.8 See_Comment [Aut omated message] The Basophils) system which ge nerated this result tra nsmitted reference range : <=1.0. The reference r shin was not used to int erpret this result as normal/abnormal . [facility] NorthwestQlqnsquHWOCMWSGFL7799-23-40 10:21:00 Test Item Value Reference Range Interpretation Comments Neutrophils # (test code = Neutrophils 4.3 1.5-8.1 #) [facility] NorthwestBcykqgoIICVUYOADY3804-12-04 10:21:00 Test Item Value Reference Range Interpretation Comments Lymphocytes # (test code = Lymphocytes 1.3 1.0-5.5 #) [facility] NorthwestFjrgltcLKTDWWUKQR9812-94-50 10:21:00 Test Item Value Reference Range Interpretation Comments Monocytes # (test code 0.8 See_Comment [Aut omated message] The = Monocytes #) system which generated this result tra nsmitted reference range : <=0.8. The reference r shin was not used to int erpret this result as normal/abnormal . [facility] NorthwestYryvpcaODJPQBGSQJ6178-47-63 10:21:00 Test Item Value Reference Range Interpretation Comments WBC (test code = WBC) 6.5 3.7-10.4 [place] 475322-01-16 10:21:00 Test Item Value Reference Range Interpretation Comments RBC (test code = RBC) 4.15 4.20-5.40 [facility] NorthwestCsfqgcoTPOUMIRYOZ7646-42-95 10:21:00 Test Item Value Reference Range Interpretation Comments Hgb (test code = Hgb) 11.1 12.0-16.0 [facility] NorthwestXlqvpvdSCOUTLFKUJ3773-53-24 10:21:00 Test Item Value Reference Range Interpretation Comments Hct (test code = Hct) 34.2 36.0-48.0 [facility] NorthwestOfbcwqmNMYFRNVPMQ4052-85-20 10:21:00 Test Item Value Reference Range Interpretation Comments MCV (test code = MCV) 82.3 80.0-98.0 [facility] NorthwestNmdqxfiUGFTGZOMVY9620-23-68 10:21:00 Test Item Value Reference Range Interpretation Comments MCH (test code = MCH) 26.7 pg 27.0-31.0 [facility] NorthwestAzgepmsOFTHTULUMF6617-03-88 10:21:00 Test Item Value Reference Range Interpretation Comments MCHC (test code = MCHC) 32.5 32.0-36.0 [place] 475322-01-16 10:21:00 Test Item Value Reference Range Interpretation Comments RDW (test code = RDW) 16.6 11.5-14.5 [place] 475322-01-16 10:21:00 Test Item Value Reference Range Interpretation Comments Platelet (test code = Platelet) 267 133-450 [place] 475322-01-16 10:21:00 Test Item Value Reference Range Interpretation Comments MPV (test code = MPV) 8.2 7.4-10.4 [place] 720082-01-16 10:21:00 Test Item Value Reference Range Interpretation Comments Glucose Lvl (test code = Glucose Lvl) 110 70-99 [place] 720082-01-16 10:21:00 Test Item Value Reference Range Interpretation Comments BUN (test code = BUN) 17 7-22 [place] 720082-01-16 10:21:00 Test Item Value Reference Range Interpretation Comments Creatinine Lvl (test code = Creatinine 1.17 0.50-1.40 Lvl) [place] 720082-01-16 10:21:00 Test Item Value Reference Range Interpretation Comments Sodium Lvl (test code = Sodium Lvl) 141 135-145 [place] 720082-01-16 10:21:00 Test Item Value Reference Range Interpretation Comments Potassium Lvl (test code = Potassium 3.1 3.5-5.1 Lvl) [facility]2022-01-16 10:21:00 Test Item Value Reference Range Interpretation Comments Chloride Lvl (test code = Chloride Lvl) 99 95-109 [place] 720082-01-16 10:21:00 Test Item Value Reference Range Interpretation Comments CO2 (test code = CO2) 35 24-32 [place] 720082-01-16 10:21:00 Test Item Value Reference Range Interpretation Comments Calcium Lvl (test code = Calcium Lvl) 8.6 8.5-10.5 [facility]2022-01-16 10:21:00 Test Item Value Reference Range Interpretation Comments AGAP (test code = AGAP) 10.1 10.0-20.0 [place] 720082-01-16 10:21:00 Test Item Value Reference Range Interpretation Comments eGFR (test code = eGFR) 45 [place] 720082-01-16 10:21:00 Test Item Value Reference Range Interpretation Comments Magnesium Lvl (test code = Magnesium 1.9 1.8-2.4 Lvl) [facility]2022-01-16 10:21:00 Test Item Value Reference Range Interpretation Comments Phosphorus (test code = Phosphorus) 3.1 2.5-4.5 [facility] NorthwestClibgzzONNLVAIKYL5535-04-11 10:21:00 Test Item Value Reference Range Interpretation Comments Segs (test code = Segs) 65.8 45.0-75.0 [facility] NorthwestIkcictjDAPKXRWORX3671-60-45 10:21:00 Test Item Value Reference Range Interpretation Comments Lymphocytes (test code = Lymphocytes) 20.6 20.0-40.0 [place] 475322-01-16 10:21:00 Test Item Value Reference Range Interpretation Comments Monocytes (test code = Monocytes) 12.8 2.0-12.0 [place] 475322-01-16 10:21:00 Test Item Value Reference Range Interpretation Comments Basophils (test code = 0.8 See_Comment [Aut omated message] The Basophils) system which ge nerated this result tra nsmitted reference range : <=1.0. The reference r shin was not used to int erpret this result as normal/abnormal . [facility] NorthwestWcqxlsmVLREAADMMM7053-54-71 10:21:00 Test Item Value Reference Range Interpretation Comments Neutrophils # (test code = Neutrophils 4.3 1.5-8.1 #) [facility] NorthwestHsnvvyxCYNHHFKRSG0150-85-91 10:21:00 Test Item Value Reference Range Interpretation Comments Lymphocytes # (test code = Lymphocytes 1.3 1.0-5.5 #) [facility] NorthwestGxjqawzSPAOLJFGWI3196-48-82 10:21:00 Test Item Value Reference Range Interpretation Comments Monocytes # (test code 0.8 See_Comment [Aut omated message] The = Monocytes #) system which generated this result tra nsmitted reference range : <=0.8. The reference r shin was not used to int erpret this result as normal/abnormal . [facility] NorthwestPiyxlubVTDEHFIBCK9166-45-29 10:21:00 Test Item Value Reference Range Interpretation Comments WBC (test code = WBC) 6.5 3.7-10.4 [place] 475322-01-16 10:21:00 Test Item Value Reference Range Interpretation Comments RBC (test code = RBC) 4.15 4.20-5.40 [place] 475322-01-16 10:21:00 Test Item Value Reference Range Interpretation Comments Hgb (test code = Hgb) 11.1 12.0-16.0 [facility] NorthwestHjxbslkXXNBFPNOHR8274-88-56 10:21:00 Test Item Value Reference Range Interpretation Comments Hct (test code = Hct) 34.2 36.0-48.0 [facility] NorthwestRhxrggsLOTVZKRIFT3501-41-19 10:21:00 Test Item Value Reference Range Interpretation Comments MCV (test code = MCV) 82.3 80.0-98.0 [facility] NorthwestAkkcqhvJEBKUEWPFX3166-99-93 10:21:00 Test Item Value Reference Range Interpretation Comments MCH (test code = MCH) 26.7 pg 27.0-31.0 [facility] NorthwestMdfowsxCIPXFTBOSR5185-55-36 10:21:00 Test Item Value Reference Range Interpretation Comments MCHC (test code = MCHC) 32.5 32.0-36.0 [facility] NorthwestIixpdtcQKXRIUPYVM0705-61-41 10:21:00 Test Item Value Reference Range Interpretation Comments RDW (test code = RDW) 16.6 11.5-14.5 [facility] NorthwestGlvewbvBCBQSVDFQC0705-26-65 10:21:00 Test Item Value Reference Range Interpretation Comments Platelet (test code = Platelet) 267 133-450 [facility] NorthwestPelnchgLLRNNUQNJE5181-98-30 10:21:00 Test Item Value Reference Range Interpretation Comments MPV (test code = MPV) 8.2 7.4-10.4 [facility]2022-01-15 10:01:00 Test Item Value Reference Range Interpretation Comments Glucose Lvl (test code = Glucose Lvl) 98 70-99 [facility]2022-01-15 10:01:00 Test Item Value Reference Range Interpretation Comments BUN (test code = BUN) 15 7-22 [facility]2022-01-15 10:01:00 Test Item Value Reference Range Interpretation Comments Creatinine Lvl (test code = Creatinine 1.13 0.50-1.40 Lvl) [facility]2022-01-15 10:01:00 Test Item Value Reference Range Interpretation Comments Sodium Lvl (test code = Sodium Lvl) 142 135-145 [facility]2022-01-15 10:01:00 Test Item Value Reference Range Interpretation Comments Potassium Lvl (test code = Potassium 3.4 3.5-5.1 Lvl) [facility]2022-01-15 10:01:00 Test Item Value Reference Range Interpretation Comments Chloride Lvl (test code = Chloride Lvl) 101 95-109 [place] 720082-01-15 10:01:00 Test Item Value Reference Range Interpretation Comments CO2 (test code = CO2) 35 24-32 [place] 720082-01-15 10:01:00 Test Item Value Reference Range Interpretation Comments Calcium Lvl (test code = Calcium Lvl) 8.3 8.5-10.5 [place] 720082-01-15 10:01:00 Test Item Value Reference Range Interpretation Comments AGAP (test code = AGAP) 9.4 10.0-20.0 [place] 720082-01-15 10:01:00 Test Item Value Reference Range Interpretation Comments eGFR (test code = eGFR) 47 [place] 720082-01-15 10:01:00 Test Item Value Reference Range Interpretation Comments Magnesium Lvl (test code = Magnesium 1.9 1.8-2.4 Lvl) [facility] NorthwestRfgaasqWONXGFNIUR9401-03-73 10:01:00 Test Item Value Reference Range Interpretation Comments Segs (test code = Segs) 69.2 45.0-75.0 [place] 475322-01-15 10:01:00 Test Item Value Reference Range Interpretation Comments Lymphocytes (test code = Lymphocytes) 19.9 20.0-40.0 [place] 475322-01-15 10:01:00 Test Item Value Reference Range Interpretation Comments Monocytes (test code = Monocytes) 10.2 2.0-12.0 [place] 475322-01-15 10:01:00 Test Item Value Reference Range Interpretation Comments Basophils (test code = 0.7 See_Comment [Aut omated message] The Basophils) system which ge nerated this result tra nsmitted reference range : <=1.0. The reference r shin was not used to int erpret this result as normal/abnormal . [place] 475322-01-15 10:01:00 Test Item Value Reference Range Interpretation Comments Neutrophils # (test code = Neutrophils 4.2 1.5-8.1 #) [place] 475322-01-15 10:01:00 Test Item Value Reference Range Interpretation Comments Lymphocytes # (test code = Lymphocytes 1.2 1.0-5.5 #) [facility] NorthwestNbzvwbhLQVCGPVIWB7007-06-69 10:01:00 Test Item Value Reference Range Interpretation Comments Monocytes # (test code 0.6 See_Comment [Aut omated message] The = Monocytes #) system which generated this result tra nsmitted reference range : <=0.8. The reference r shin was not used to int erpret this result as normal/abnormal . [facility] NorthwestYpebvmlHGNXRTSAUH5326-71-82 10:01:00 Test Item Value Reference Range Interpretation Comments WBC (test code = WBC) 6.0 3.7-10.4 [facility] NorthwestTobtavbDFRMEBHGRD2188-18-21 10:01:00 Test Item Value Reference Range Interpretation Comments RBC (test code = RBC) 3.59 4.20-5.40 [facility] NorthwestPyksyvyDASYAZDTGY7779-07-57 10:01:00 Test Item Value Reference Range Interpretation Comments Hgb (test code = Hgb) 9.8 12.0-16.0 [facility] NorthwestJdsdwwyLWFZNWVJSF4251-43-48 10:01:00 Test Item Value Reference Range Interpretation Comments Hct (test code = Hct) 29.8 36.0-48.0 [facility] NorthwestVdvqpitXZKLPXDJQY6600-74-15 10:01:00 Test Item Value Reference Range Interpretation Comments MCV (test code = MCV) 82.8 80.0-98.0 [facility] NorthwestGixjyhhOFESXTMMNJ4678-85-80 10:01:00 Test Item Value Reference Range Interpretation Comments MCH (test code = MCH) 27.3 pg 27.0-31.0 [facility] NorthwestQdewapnBOBJVXRGHD1783-55-81 10:01:00 Test Item Value Reference Range Interpretation Comments MCHC (test code = MCHC) 32.9 32.0-36.0 [facility] NorthwestAqqqdwqDBCCLTODOT3993-86-39 10:01:00 Test Item Value Reference Range Interpretation Comments RDW (test code = RDW) 16.7 11.5-14.5 [facility] NorthwestBrtanjyMGONCYZGVA0927-94-86 10:01:00 Test Item Value Reference Range Interpretation Comments Platelet (test code = Platelet) 248 133-450 [facility] NorthwestHjmeperZJGKKWBFIB7732-07-45 10:01:00 Test Item Value Reference Range Interpretation Comments MPV (test code = MPV) 8.4 7.4-10.4 [facility]2022-01-15 10:01:00 Test Item Value Reference Range Interpretation Comments Glucose Lvl (test code = Glucose Lvl) 98 70-99 [facility]2022-01-15 10:01:00 Test Item Value Reference Range Interpretation Comments BUN (test code = BUN) 15 7-22 [facility]2022-01-15 10:01:00 Test Item Value Reference Range Interpretation Comments Creatinine Lvl (test code = Creatinine 1.13 0.50-1.40 Lvl) [facility]2022-01-15 10:01:00 Test Item Value Reference Range Interpretation Comments Sodium Lvl (test code = Sodium Lvl) 142 135-145 [facility]2022-01-15 10:01:00 Test Item Value Reference Range Interpretation Comments Potassium Lvl (test code = Potassium 3.4 3.5-5.1 Lvl) [facility]2022-01-15 10:01:00 Test Item Value Reference Range Interpretation Comments Chloride Lvl (test code = Chloride Lvl) 101 95-109 [facility]2022-01-15 10:01:00 Test Item Value Reference Range Interpretation Comments CO2 (test code = CO2) 35 24-32 [facility]2022-01-15 10:01:00 Test Item Value Reference Range Interpretation Comments Calcium Lvl (test code = Calcium Lvl) 8.3 8.5-10.5 [facility]2022-01-15 10:01:00 Test Item Value Reference Range Interpretation Comments AGAP (test code = AGAP) 9.4 10.0-20.0 [facility]2022-01-15 10:01:00 Test Item Value Reference Range Interpretation Comments eGFR (test code = eGFR) 47 [facility]2022-01-15 10:01:00 Test Item Value Reference Range Interpretation Comments Magnesium Lvl (test code = Magnesium 1.9 1.8-2.4 Lvl) [facility] NorthwestBzmgvgzYBQOLMXBWY7101-46-72 10:01:00 Test Item Value Reference Range Interpretation Comments Segs (test code = Segs) 69.2 45.0-75.0 [facility] NorthwestWrbgbbtKEAMETJYCZ8131-68-20 10:01:00 Test Item Value Reference Range Interpretation Comments Lymphocytes (test code = Lymphocytes) 19.9 20.0-40.0 [facility] NorthwestEdxgoasQFUMDBKMMN4459-27-86 10:01:00 Test Item Value Reference Range Interpretation Comments Monocytes (test code = Monocytes) 10.2 2.0-12.0 [facility] NorthwestCdalnyjSDFJTCUBLQ8821-51-17 10:01:00 Test Item Value Reference Range Interpretation Comments Basophils (test code = 0.7 See_Comment [Aut omated message] The Basophils) system which ge nerated this result tra nsmitted reference range : <=1.0. The reference r shin was not used to int erpret this result as normal/abnormal . [facility] NorthwestFfjunmdNZCHKVHTYG3194-74-84 10:01:00 Test Item Value Reference Range Interpretation Comments Neutrophils # (test code = Neutrophils 4.2 1.5-8.1 #) [facility] NorthwestJwxwfaaJZDPZVQYUW8922-73-39 10:01:00 Test Item Value Reference Range Interpretation Comments Lymphocytes # (test code = Lymphocytes 1.2 1.0-5.5 #) [facility] NorthwestKjyfnfhEVHRYNRPRN6310-49-79 10:01:00 Test Item Value Reference Range Interpretation Comments Monocytes # (test code 0.6 See_Comment [Aut omated message] The = Monocytes #) system which generated this result tra nsmitted reference range : <=0.8. The reference r shin was not used to int erpret this result as normal/abnormal . [facility] NorthwestLtywnfeSQDOCSYRDR0493-42-03 10:01:00 Test Item Value Reference Range Interpretation Comments WBC (test code = WBC) 6.0 3.7-10.4 [facility] NorthwestMdtfefiJSRIUJXHZO6710-81-01 10:01:00 Test Item Value Reference Range Interpretation Comments RBC (test code = RBC) 3.59 4.20-5.40 [facility] NorthwestGisqdxsIHDCDJXTVT0325-19-18 10:01:00 Test Item Value Reference Range Interpretation Comments Hgb (test code = Hgb) 9.8 12.0-16.0 [facility] NorthwestJtlctwzUSWGPMGZWO8189-95-65 10:01:00 Test Item Value Reference Range Interpretation Comments Hct (test code = Hct) 29.8 36.0-48.0 [facility] NorthwestKdkaywqTUWOKXETYE8799-30-86 10:01:00 Test Item Value Reference Range Interpretation Comments MCV (test code = MCV) 82.8 80.0-98.0 [place] 475322-01-15 10:01:00 Test Item Value Reference Range Interpretation Comments MCH (test code = MCH) 27.3 pg 27.0-31.0 [facility] NorthwestWkjdmhmCZVATCOLSP1552-73-96 10:01:00 Test Item Value Reference Range Interpretation Comments MCHC (test code = MCHC) 32.9 32.0-36.0 [facility] NorthwestIrpomozMJVHDCVLUS0054-00-13 10:01:00 Test Item Value Reference Range Interpretation Comments RDW (test code = RDW) 16.7 11.5-14.5 [facility] NorthwestNifnslhUVSIYACXMM9092-31-06 10:01:00 Test Item Value Reference Range Interpretation Comments Platelet (test code = Platelet) 248 133-450 [facility] NorthwestEeotwxzGHNOSDEQEV5464-06-82 10:01:00 Test Item Value Reference Range Interpretation Comments MPV (test code = MPV) 8.4 7.4-10.4 [facility]2022-01-15 10:01:00 Test Item Value Reference Range Interpretation Comments Glucose Lvl (test code = Glucose Lvl) 98 70-99 [facility]2022-01-15 10:01:00 Test Item Value Reference Range Interpretation Comments BUN (test code = BUN) 15 7-22 [facility]2022-01-15 10:01:00 Test Item Value Reference Range Interpretation Comments Creatinine Lvl (test code = Creatinine 1.13 0.50-1.40 Lvl) [facility]2022-01-15 10:01:00 Test Item Value Reference Range Interpretation Comments Sodium Lvl (test code = Sodium Lvl) 142 135-145 [facility]2022-01-15 10:01:00 Test Item Value Reference Range Interpretation Comments Potassium Lvl (test code = Potassium 3.4 3.5-5.1 Lvl) [facility]2022-01-15 10:01:00 Test Item Value Reference Range Interpretation Comments Chloride Lvl (test code = Chloride Lvl) 101 95-109 [facility]2022-01-15 10:01:00 Test Item Value Reference Range Interpretation Comments CO2 (test code = CO2) 35 24-32 [facility]2022-01-15 10:01:00 Test Item Value Reference Range Interpretation Comments Calcium Lvl (test code = Calcium Lvl) 8.3 8.5-10.5 [place] 720082-01-15 10:01:00 Test Item Value Reference Range Interpretation Comments AGAP (test code = AGAP) 9.4 10.0-20.0 [facility]2022-01-15 10:01:00 Test Item Value Reference Range Interpretation Comments eGFR (test code = eGFR) 47 [facility]2022-01-15 10:01:00 Test Item Value Reference Range Interpretation Comments Magnesium Lvl (test code = Magnesium 1.9 1.8-2.4 Lvl) [place] 475322-01-15 10:01:00 Test Item Value Reference Range Interpretation Comments Segs (test code = Segs) 69.2 45.0-75.0 [facility] NorthwestTamtsqsKDQBNACIJS1020-87-68 10:01:00 Test Item Value Reference Range Interpretation Comments Lymphocytes (test code = Lymphocytes) 19.9 20.0-40.0 [facility] NorthwestUecvhcrNQPQOHIBWM9838-52-89 10:01:00 Test Item Value Reference Range Interpretation Comments Monocytes (test code = Monocytes) 10.2 2.0-12.0 [facility] NorthwestLuhkexaYPOVPPMUVE7319-21-58 10:01:00 Test Item Value Reference Range Interpretation Comments Basophils (test code = 0.7 See_Comment [Aut omated message] The Basophils) system which ge nerated this result tra nsmitted reference range : <=1.0. The reference r shin was not used to int erpret this result as normal/abnormal . [facility] NorthwestIpfkwerDTHSCQVNWL9881-09-79 10:01:00 Test Item Value Reference Range Interpretation Comments Neutrophils # (test code = Neutrophils 4.2 1.5-8.1 #) [place] 475322-01-15 10:01:00 Test Item Value Reference Range Interpretation Comments Lymphocytes # (test code = Lymphocytes 1.2 1.0-5.5 #) [place] 475322-01-15 10:01:00 Test Item Value Reference Range Interpretation Comments Monocytes # (test code 0.6 See_Comment [Aut omated message] The = Monocytes #) system which generated this result tra nsmitted reference range : <=0.8. The reference r shin was not used to int erpret this result as normal/abnormal . [facility] NorthwestFzgghfjLNAFRBQTYJ3560-91-29 10:01:00 Test Item Value Reference Range Interpretation Comments WBC (test code = WBC) 6.0 3.7-10.4 [facility] NorthwestXaapxocRAXACCWQZK0374-41-72 10:01:00 Test Item Value Reference Range Interpretation Comments RBC (test code = RBC) 3.59 4.20-5.40 [facility] NorthwestFbhyslyZJBEEJVZZI3946-99-16 10:01:00 Test Item Value Reference Range Interpretation Comments Hgb (test code = Hgb) 9.8 12.0-16.0 [facility] NorthwestSyuuisgVAFHTECZIY2744-36-38 10:01:00 Test Item Value Reference Range Interpretation Comments Hct (test code = Hct) 29.8 36.0-48.0 [facility] NorthwestFyclpzjMNPNATQVZU0932-48-78 10:01:00 Test Item Value Reference Range Interpretation Comments MCV (test code = MCV) 82.8 80.0-98.0 [facility] NorthwestNstbfymQCEVODVHMW8599-51-35 10:01:00 Test Item Value Reference Range Interpretation Comments MCH (test code = MCH) 27.3 pg 27.0-31.0 [facility] NorthwestNoqimeiWAYAXVRTYI6156-43-88 10:01:00 Test Item Value Reference Range Interpretation Comments MCHC (test code = MCHC) 32.9 32.0-36.0 [facility] NorthwestBfjmnwoNLCAMIYKWU5492-69-17 10:01:00 Test Item Value Reference Range Interpretation Comments RDW (test code = RDW) 16.7 11.5-14.5 [facility] NorthwestPyikssjSESVRWYJIG9574-75-67 10:01:00 Test Item Value Reference Range Interpretation Comments Platelet (test code = Platelet) 248 133-450 [facility] NorthwestHvbvmirDDBHSENHHI3119-86-34 10:01:00 Test Item Value Reference Range Interpretation Comments MPV (test code = MPV) 8.4 7.4-10.4 [facility] [id number] 05:42:00 Test Item Value Reference Range Interpretation Comments HS Troponin I 1 Hr (test code = HS 386.4 Troponin I 1 Hr) [facility] [id number] 05:42:00 Test Item Value Reference Range Interpretation Comments HS Troponin I 0 to 1 Hour Delta (test 23.4 1 code = HS Troponin I 0 to 1 Hour Delta) [facility] [id number] 05:42:00 Test Item Value Reference Range Interpretation Comments HS Troponin I 1 Hr (test code = HS 386.4 Troponin I 1 Hr) [facility] [id number] 05:42:00 Test Item Value Reference Range Interpretation Comments HS Troponin I 0 to 1 Hour Delta (test 23.4 1 code = HS Troponin I 0 to 1 Hour Delta) [facility] [id number] 05:42:00 Test Item Value Reference Range Interpretation Comments HS Troponin I 1 Hr (test code = HS 386.4 Troponin I 1 Hr) [facility] [id number] 05:42:00 Test Item Value Reference Range Interpretation Comments HS Troponin I 0 to 1 Hour Delta (test 23.4 1 code = HS Troponin I 0 to 1 Hour Delta) [facility] [id number] 04:43:00 Test Item Value Reference Range Interpretation Comments HS Troponin I Baseline (test code = HS 363.0 Troponin I Baseline) [facility] [id number] 04:43:00 Test Item Value Reference Range Interpretation Comments HS Troponin I Baseline (test code = HS 363.0 Troponin I Baseline) [facility] [id number] 04:43:00 Test Item Value Reference Range Interpretation Comments HS Troponin I Baseline (test code = HS 363.0 Troponin I Baseline) [facility]HlzifryDOLJWHXIAJ2486-70-53 02:19:00 Test Item Value Reference Range Interpretation Comments Coronavirus (COVID-19) Not Detected (09/27/21 MADELINE (test code = 8:19 PM) Coronavirus (COVID-19) MADELINE) [facility]SwvxndfPDEYPQYVBW9931-54-86 02:19:00 Test Item Value Reference Range Interpretation Comments Coronavirus (COVID-19) Not Detected (09/27/21 MADELINE (test code = 8:19 PM) Coronavirus (COVID-19) MADELINE) [facility]lakeJthnlreZTICAXUEKX1007-35-18 02:19:00 Test Item Value Reference Range Interpretation Comments Coronavirus (COVID-19) Not Detected (09/27/21 MADELINE (test code = 8:19 PM) Coronavirus (COVID-19) MADELINE) [facility] HospitalBrozengoGSBALFR8931-36-92 01:49:00 Test Item Value Reference Range Interpretation Comments Total CK (test code = Total CK) 51 12-191 [facility] [id number] 01:49:00 Test Item Value Reference Range Interpretation Comments HS Troponin I (test code = HS Troponin 366.9 I) [facility] [id number] 01:49:00 Test Item Value Reference Range Interpretation Comments BNP (test code = BNP) 3 [facility] [id number] 01:49:00 Test Item Value Reference Range Interpretation Comments Glucose Lvl (test code = Glucose Lvl) 114 70-99 [facility] [id number] 01:49:00 Test Item Value Reference Range Interpretation Comments BUN (test code = BUN) 15 7-22 [facility] [id number] 01:49:00 Test Item Value Reference Range Interpretation Comments Creatinine Lvl (test code = Creatinine 1.06 0.50-1.40 Lvl) [facility] [id number] 01:49:00 Test Item Value Reference Range Interpretation Comments Sodium Lvl (test code = Sodium Lvl) 138 135-145 [facility] [id number] 01:49:00 Test Item Value Reference Range Interpretation Comments Potassium Lvl (test code = Potassium 3.5 3.5-5.1 Lvl) [facility] [id number] 01:49:00 Test Item Value Reference Range Interpretation Comments Chloride Lvl (test code = Chloride Lvl) 101 95-109 [facility] [id number] 01:49:00 Test Item Value Reference Range Interpretation Comments CO2 (test code = CO2) 34 24-32 [facility] [id number] 01:49:00 Test Item Value Reference Range Interpretation Comments Calcium Lvl (test code = Calcium Lvl) 8.0 8.5-10.5 [facility] [id number] 01:49:00 Test Item Value Reference Range Interpretation Comments Total Protein (test code = Total 6.8 6.4-8.4 Protein) [facility] [id number] 01:49:00 Test Item Value Reference Range Interpretation Comments Albumin Lvl (test code = Albumin Lvl) 2.7 3.5-5.0 [facility] [id number] 01:49:00 Test Item Value Reference Range Interpretation Comments ALT (test code = ALT) 126 See_Comment [Auto mated message] The system which ge nerated this result transmit shubham reference range : <=65. The reference range was not used to interpr et this result as halina l/abnormal. [facility] [id number] 01:49:00 Test Item Value Reference Range Interpretation Comments AST (test code = AST) 91 See_Comment [Auto mated message] The system which ge nerated this result transmit shubham reference range : <=37. The reference range was not used to interpr et this result as halina l/abnormal. [facility] [id number] 01:49:00 Test Item Value Reference Range Interpretation Comments Alk Phos (test code = Alk Phos) 98 39-136 [facility] [id number] 01:49:00 Test Item Value Reference Range Interpretation Comments Bili Total (test code = Bili Total) 0.9 0.2-1.3 [facility] [id number] 01:49:00 Test Item Value Reference Range Interpretation Comments AGAP (test code = AGAP) 6.5 10.0-20.0 [facility] [id number] 01:49:00 Test Item Value Reference Range Interpretation Comments B/C Ratio (test code = B/C Ratio) 14 1 6-25 [facility] [id number] 01:49:00 Test Item Value Reference Range Interpretation Comments Globulin (test code = Globulin) 4.1 2.7-4.2 [facility] [id number] 01:49:00 Test Item Value Reference Range Interpretation Comments A/G Ratio (test code = A/G Ratio) 0.7 1 0.7-1.6 [facility] [id number] 01:49:00 Test Item Value Reference Range Interpretation Comments eGFR (test code = eGFR) 51 [facility] [id number] 01:49:00 Test Item Value Reference Range Interpretation Comments Magnesium Lvl (test code = Magnesium 1.4 1.8-2.4 Lvl) [facility] [id number] 01:49:00 Test Item Value Reference Range Interpretation Comments Phosphorus (test code = Phosphorus) 3.1 2.5-4.5 [facility] [id number] 01:49:00 Test Item Value Reference Range Interpretation Comments Total CK (test code = Total CK) 51 12-191 [facility] [id number] 01:49:00 Test Item Value Reference Range Interpretation Comments HS Troponin I (test code = HS Troponin 366.9 I) [facility] [id number] 01:49:00 Test Item Value Reference Range Interpretation Comments BNP (test code = BNP) [facility] [id number] 01:49:00 Test Item Value Reference Range Interpretation Comments Glucose Lvl (test code = Glucose Lvl) 114 70-99 [facility] [id number] 01:49:00 Test Item Value Reference Range Interpretation Comments BUN (test code = BUN) 15 7-22 [facility] [id number] 01:49:00 Test Item Value Reference Range Interpretation Comments Creatinine Lvl (test code = Creatinine 1.06 0.50-1.40 Lvl) [facility] [id number] 01:49:00 Test Item Value Reference Range Interpretation Comments Sodium Lvl (test code = Sodium Lvl) 138 135-145 [facility] [id number] 01:49:00 Test Item Value Reference Range Interpretation Comments Potassium Lvl (test code = Potassium 3.5 3.5-5.1 Lvl) [facility] [id number] 01:49:00 Test Item Value Reference Range Interpretation Comments Chloride Lvl (test code = Chloride Lvl) 101 95-109 [facility] [id number] 01:49:00 Test Item Value Reference Range Interpretation Comments CO2 (test code = CO2) 34 24-32 [facility] [id number] 01:49:00 Test Item Value Reference Range Interpretation Comments Calcium Lvl (test code = Calcium Lvl) 8.0 8.5-10.5 [facility] [id number] 01:49:00 Test Item Value Reference Range Interpretation Comments Total Protein (test code = Total 6.8 6.4-8.4 Protein) [facility] [id number] 01:49:00 Test Item Value Reference Range Interpretation Comments Albumin Lvl (test code = Albumin Lvl) 2.7 3.5-5.0 [place] [id number] 01:49:00 Test Item Value Reference Range Interpretation Comments ALT (test code = ALT) 126 See_Comment [Auto mated message] The system which ge nerated this result transmit shubham reference range : <=65. The reference range was not used to interpr et this result as halina l/abnormal. [facility] [id number] 01:49:00 Test Item Value Reference Range Interpretation Comments AST (test code = AST) 91 See_Comment [Auto mated message] The system which ge nerated this result transmit shubham reference range : <=37. The reference range was not used to interpr et this result as halina l/abnormal. [facility] [id number] 01:49:00 Test Item Value Reference Range Interpretation Comments Alk Phos (test code = Alk Phos) 98 39-136 [facility] [id number] 01:49:00 Test Item Value Reference Range Interpretation Comments Bili Total (test code = Bili Total) 0.9 0.2-1.3 [facility] [id number] 01:49:00 Test Item Value Reference Range Interpretation Comments AGAP (test code = AGAP) 6.5 10.0-20.0 [facility] [id number] 01:49:00 Test Item Value Reference Range Interpretation Comments B/C Ratio (test code = B/C Ratio) 14 1 6-25 [facility] [id number] 01:49:00 Test Item Value Reference Range Interpretation Comments Globulin (test code = Globulin) 4.1 2.7-4.2 [facility] [id number] 01:49:00 Test Item Value Reference Range Interpretation Comments A/G Ratio (test code = A/G Ratio) 0.7 1 0.7-1.6 [facility] [id number] 01:49:00 Test Item Value Reference Range Interpretation Comments eGFR (test code = eGFR) 51 [facility] [id number] 01:49:00 Test Item Value Reference Range Interpretation Comments Magnesium Lvl (test code = Magnesium 1.4 1.8-2.4 Lvl) [facility] [id number] 01:49:00 Test Item Value Reference Range Interpretation Comments Phosphorus (test code = Phosphorus) 3.1 2.5-4.5 [facility] [id number] 01:49:00 Test Item Value Reference Range Interpretation Comments Total CK (test code = Total CK) 51 12-191 [facility] [id number] 01:49:00 Test Item Value Reference Range Interpretation Comments HS Troponin I (test code = HS Troponin 366.9 I) [facility] [id number] 01:49:00 Test Item Value Reference Range Interpretation Comments BNP (test code = BNP) 2022 [facility] [id number] 01:49:00 Test Item Value Reference Range Interpretation Comments Glucose Lvl (test code = Glucose Lvl) 114 70-99 [facility] [id number] 01:49:00 Test Item Value Reference Range Interpretation Comments BUN (test code = BUN) 15 7-22 [facility] [id number] 01:49:00 Test Item Value Reference Range Interpretation Comments Creatinine Lvl (test code = Creatinine 1.06 0.50-1.40 Lvl) [facility] [id number] 01:49:00 Test Item Value Reference Range Interpretation Comments Sodium Lvl (test code = Sodium Lvl) 138 135-145 [facility] [id number] 01:49:00 Test Item Value Reference Range Interpretation Comments Potassium Lvl (test code = Potassium 3.5 3.5-5.1 Lvl) [facility] [id number] 01:49:00 Test Item Value Reference Range Interpretation Comments Chloride Lvl (test code = Chloride Lvl) 101 95-109 [facility] [id number] 01:49:00 Test Item Value Reference Range Interpretation Comments CO2 (test code = CO2) 34 24-32 [facility] [id number] 01:49:00 Test Item Value Reference Range Interpretation Comments Calcium Lvl (test code = Calcium Lvl) 8.0 8.5-10.5 [facility] [id number] 01:49:00 Test Item Value Reference Range Interpretation Comments Total Protein (test code = Total 6.8 6.4-8.4 Protein) [facility] [id number] 01:49:00 Test Item Value Reference Range Interpretation Comments Albumin Lvl (test code = Albumin Lvl) 2.7 3.5-5.0 [facility] [id number] 01:49:00 Test Item Value Reference Range Interpretation Comments ALT (test code = ALT) 126 See_Comment [Auto mated message] The system which ge nerated this result transmit shubham reference range : <=65. The reference range was not used to interpr et this result as halina l/abnormal. [facility] [id number] 01:49:00 Test Item Value Reference Range Interpretation Comments AST (test code = AST) 91 See_Comment [Auto mated message] The system which ge nerated this result transmit shubham reference range : <=37. The reference range was not used to interpr et this result as halina l/abnormal. [facility] [id number] 01:49:00 Test Item Value Reference Range Interpretation Comments Alk Phos (test code = Alk Phos) 98 39-136 [facility] [id number] 01:49:00 Test Item Value Reference Range Interpretation Comments Bili Total (test code = Bili Total) 0.9 0.2-1.3 [facility] [id number] 01:49:00 Test Item Value Reference Range Interpretation Comments AGAP (test code = AGAP) 6.5 10.0-20.0 [facility] [id number] 01:49:00 Test Item Value Reference Range Interpretation Comments B/C Ratio (test code = B/C Ratio) 14 1 6-25 [facility] [id number] 01:49:00 Test Item Value Reference Range Interpretation Comments Globulin (test code = Globulin) 4.1 2.7-4.2 [facility] [id number] 01:49:00 Test Item Value Reference Range Interpretation Comments A/G Ratio (test code = A/G Ratio) 0.7 1 0.7-1.6 [facility] [id number] 01:49:00 Test Item Value Reference Range Interpretation Comments eGFR (test code = eGFR) 51 [facility]2022-01-15 01:49:00 Test Item Value Reference Range Interpretation Comments Magnesium Lvl (test code = Magnesium 1.4 1.8-2.4 Lvl) [place] [id number] 01:49:00 Test Item Value Reference Range Interpretation Comments Phosphorus (test code = Phosphorus) 3.1 2.5-4.5 [place] [address]-01-14 22:57:00 Test Item Value Reference Range Interpretation Comments WBC (test code = WBC) 6.6 3.7-10.4 [place] [address]-01-14 22:57:00 Test Item Value Reference Range Interpretation Comments RBC (test code = RBC) 4.02 4.20-5.40 [place] [address]-01-14 22:57:00 Test Item Value Reference Range Interpretation Comments Hgb (test code = Hgb) 10.8 12.0-16.0 [place] [address]-01-14 22:57:00 Test Item Value Reference Range Interpretation Comments Hct (test code = Hct) 33.6 36.0-48.0 [place] 475322-01-14 22:57:00 Test Item Value Reference Range Interpretation Comments MCV (test code = MCV) 83.7 80.0-98.0 [place] [address]-01-14 22:57:00 Test Item Value Reference Range Interpretation Comments MCH (test code = MCH) 26.9 pg 27.0-31.0 [place] 475322-01-14 22:57:00 Test Item Value Reference Range Interpretation Comments MCHC (test code = MCHC) 32.1 32.0-36.0 [place] 475322-01-14 22:57:00 Test Item Value Reference Range Interpretation Comments RDW (test code = RDW) 16.2 11.5-14.5 [place] [address]-01-14 22:57:00 Test Item Value Reference Range Interpretation Comments Platelet (test code = Platelet) 263 133-450 [place] 475322-01-14 22:57:00 Test Item Value Reference Range Interpretation Comments MPV (test code = MPV) 8.9 7.4-10.4 [place] 475322-01-14 22:57:00 Test Item Value Reference Range Interpretation Comments Segs (test code = Segs) 71.2 45.0-75.0 [place] [address]-01-14 22:57:00 Test Item Value Reference Range Interpretation Comments Lymphocytes (test code = Lymphocytes) 18.4 20.0-40.0 [place] [address]-01-14 22:57:00 Test Item Value Reference Range Interpretation Comments Monocytes (test code = Monocytes) 9.3 2.0-12.0 [place] [address]-01-14 22:57:00 Test Item Value Reference Range Interpretation Comments Basophils (test code = 1.1 See_Comment [Aut omated message] The Basophils) system which ge nerated this result tra nsmitted reference range : <=1.0. The reference r shin was not used to int erpret this result as normal/abnormal . [place] [address]-01-14 22:57:00 Test Item Value Reference Range Interpretation Comments Neutrophils # (test code = Neutrophils 4.7 1.5-8.1 #) [place] [address]-01-14 22:57:00 Test Item Value Reference Range Interpretation Comments Lymphocytes # (test code = Lymphocytes 1.2 1.0-5.5 #) [place] [address]-01-14 22:57:00 Test Item Value Reference Range Interpretation Comments Monocytes # (test code 0.6 See_Comment [Aut omated message] The = Monocytes #) system which generated this result tra nsmitted reference range : <=0.8. The reference r shin was not used to int erpret this result as normal/abnormal . [place] [address]-01-14 22:57:00 Test Item Value Reference Range Interpretation Comments Basophils # (test code 0.1 See_Comment [Aut omated message] The = Basophils #) system which generated this result tra nsmitted reference range : <=0.2. The reference r shin was not used to int erpret this result as normal/abnormal . [place] [address]-01-14 22:57:00 Test Item Value Reference Range Interpretation Comments WBC (test code = WBC) 6.6 3.7-10.4 [place] [address]-01-14 22:57:00 Test Item Value Reference Range Interpretation Comments RBC (test code = RBC) 4.02 4.20-5.40 [place] 475322-01-14 22:57:00 Test Item Value Reference Range Interpretation Comments Hgb (test code = Hgb) 10.8 12.0-16.0 [place] 475322-01-14 22:57:00 Test Item Value Reference Range Interpretation Comments Hct (test code = Hct) 33.6 36.0-48.0 [place] 475322-01-14 22:57:00 Test Item Value Reference Range Interpretation Comments MCV (test code = MCV) 83.7 80.0-98.0 [place] 475322-01-14 22:57:00 Test Item Value Reference Range Interpretation Comments MCH (test code = MCH) 26.9 pg 27.0-31.0 [place] 475322-01-14 22:57:00 Test Item Value Reference Range Interpretation Comments MCHC (test code = MCHC) 32.1 32.0-36.0 [place] 475322-01-14 22:57:00 Test Item Value Reference Range Interpretation Comments RDW (test code = RDW) 16.2 11.5-14.5 [place] 475322-01-14 22:57:00 Test Item Value Reference Range Interpretation Comments Platelet (test code = Platelet) 263 133-450 [facility]MpxpmtzHCMGHQKPJX4309-60-91 22:57:00 Test Item Value Reference Range Interpretation Comments MPV (test code = MPV) 8.9 7.4-10.4 [place] 475322-01-14 22:57:00 Test Item Value Reference Range Interpretation Comments Segs (test code = Segs) 71.2 45.0-75.0 [place] 475322-01-14 22:57:00 Test Item Value Reference Range Interpretation Comments Lymphocytes (test code = Lymphocytes) 18.4 20.0-40.0 [place] 475322-01-14 22:57:00 Test Item Value Reference Range Interpretation Comments Monocytes (test code = Monocytes) 9.3 2.0-12.0 [place] 475322-01-14 22:57:00 Test Item Value Reference Range Interpretation Comments Basophils (test code = 1.1 See_Comment [Aut omated message] The Basophils) system which ge nerated this result tra nsmitted reference range : <=1.0. The reference r shin was not used to int erpret this result as normal/abnormal . [place] [address]-01-14 22:57:00 Test Item Value Reference Range Interpretation Comments Neutrophils # (test code = Neutrophils 4.7 1.5-8.1 #) [place] 475322-01-14 22:57:00 Test Item Value Reference Range Interpretation Comments Lymphocytes # (test code = Lymphocytes 1.2 1.0-5.5 #) [place] [address]-01-14 22:57:00 Test Item Value Reference Range Interpretation Comments Monocytes # (test code 0.6 See_Comment [Aut omated message] The = Monocytes #) system which generated this result tra nsmitted reference range : <=0.8. The reference r shin was not used to int erpret this result as normal/abnormal . [place] [address]-01-14 22:57:00 Test Item Value Reference Range Interpretation Comments Basophils # (test code 0.1 See_Comment [Aut omated message] The = Basophils #) system which generated this result tra nsmitted reference range : <=0.2. The reference r shin was not used to int erpret this result as normal/abnormal . [place] 475322-01-14 22:57:00 Test Item Value Reference Range Interpretation Comments WBC (test code = WBC) 6.6 3.7-10.4 [place] 475322-01-14 22:57:00 Test Item Value Reference Range Interpretation Comments RBC (test code = RBC) 4.02 4.20-5.40 [place] [address]-01-14 22:57:00 Test Item Value Reference Range Interpretation Comments Hgb (test code = Hgb) 10.8 12.0-16.0 [place] [address]-01-14 22:57:00 Test Item Value Reference Range Interpretation Comments Hct (test code = Hct) 33.6 36.0-48.0 [place] [address]-01-14 22:57:00 Test Item Value Reference Range Interpretation Comments MCV (test code = MCV) 83.7 80.0-98.0 [place] [address]-01-14 22:57:00 Test Item Value Reference Range Interpretation Comments MCH (test code = MCH) 26.9 pg 27.0-31.0 [place] 475322-01-14 22:57:00 Test Item Value Reference Range Interpretation Comments MCHC (test code = MCHC) 32.1 32.0-36.0 [place] 475322-01-14 22:57:00 Test Item Value Reference Range Interpretation Comments RDW (test code = RDW) 16.2 11.5-14.5 [place] 475322-01-14 22:57:00 Test Item Value Reference Range Interpretation Comments Platelet (test code = Platelet) 263 133-450 [place] 475322-01-14 22:57:00 Test Item Value Reference Range Interpretation Comments MPV (test code = MPV) 8.9 7.4-10.4 [place] 475322-01-14 22:57:00 Test Item Value Reference Range Interpretation Comments Segs (test code = Segs) 71.2 45.0-75.0 [place] 475322-01-14 22:57:00 Test Item Value Reference Range Interpretation Comments Lymphocytes (test code = Lymphocytes) 18.4 20.0-40.0 [place] 475322-01-14 22:57:00 Test Item Value Reference Range Interpretation Comments Monocytes (test code = Monocytes) 9.3 2.0-12.0 [place] 475322-01-14 22:57:00 Test Item Value Reference Range Interpretation Comments Basophils (test code = 1.1 See_Comment [Aut omated message] The Basophils) system which ge nerated this result tra nsmitted reference range : <=1.0. The reference r shin was not used to int erpret this result as normal/abnormal . [place] 475322-01-14 22:57:00 Test Item Value Reference Range Interpretation Comments Neutrophils # (test code = Neutrophils 4.7 1.5-8.1 #) [place] 475322-01-14 22:57:00 Test Item Value Reference Range Interpretation Comments Lymphocytes # (test code = Lymphocytes 1.2 1.0-5.5 #) [place] 475322-01-14 22:57:00 Test Item Value Reference Range Interpretation Comments Monocytes # (test code 0.6 See_Comment [Aut omated message] The = Monocytes #) system which generated this result tra nsmitted reference range : <=0.8. The reference r shin was not used to int erpret this result as normal/abnormal . [place] [address]-01-14 22:57:00 Test Item Value Reference Range Interpretation Comments Basophils # (test code 0.1 See_Comment [Aut omated message] The = Basophils #) system which generated this result tra nsmitted reference range : <=0.2. The reference r shin was not used to int erpret this result as normal/abnormal . [facility]apfdoKQAPFOVNHY3548-24-41 22:51:00 Test Item Value Reference Range Interpretation Comments PT (test code = PT) 18.8 s 12.0-14.7 [place] 475322-01-14 22:51:00 Test Item Value Reference Range Interpretation Comments INR (test code = INR) 1.59 1 0.85-1.17 [place] 475322-01-14 22:51:00 Test Item Value Reference Range Interpretation Comments PTT (test code = PTT) 30.7 s 22.9-35.8 [facility] NorthwestPqqgvrrGXOCEXRQBO6882-09-65 22:51:00 Test Item Value Reference Range Interpretation Comments PT (test code = PT) 18.8 s 12.0-14.7 [facility] NorthwestIkzjaggPMDHRFDNFU0358-18-96 22:51:00 Test Item Value Reference Range Interpretation Comments INR (test code = INR) 1.59 1 0.85-1.17 [place] 475322-01-14 22:51:00 Test Item Value Reference Range Interpretation Comments PTT (test code = PTT) 30.7 s 22.9-35.8 [place] 475322-01-14 22:51:00 Test Item Value Reference Range Interpretation Comments PT (test code = PT) 18.8 s 12.0-14.7 [place] [address]-01-14 22:51:00 Test Item Value Reference Range Interpretation Comments INR (test code = INR) 1.59 1 0.85-1.17 [place] 475322-01-14 22:51:00 Test Item Value Reference Range Interpretation Comments PTT (test code = PTT) 30.7 s 22.9-35.8 [facility] IWZYBHY8807-04-74 15:55:00 Test Item Value Reference Range Interpretation Comments ABO/Rh (test code = ABO/Rh) O POS [facility] [id number] 15:55:00 Test Item Value Reference Range Interpretation Comments Antibody Scrn (test Negative (07/02/21 code = Antibody Scrn) 10:55 AM) [facility] MKVVP7270-87-79 15:55:00 Test Item Value Reference Range Interpretation Comments Glucose Lvl (test code = Glucose Lvl) 97 70-99 [facility] WLWDZ1505-97-18 15:55:00 Test Item Value Reference Range Interpretation Comments BUN (test code = BUN) 19 7- [facility] KUHTE2095-84-07 15:55:00 Test Item Value Reference Range Interpretation Comments Creatinine Lvl (test code = Creatinine 1.01 0.50-1.40 Lvl) [facility] [id number] 15:55:00 Test Item Value Reference Range Interpretation Comments Sodium Lvl (test code = Sodium Lvl) 140 135-145 [facility] ECKGU3315-85-73 15:55:00 Test Item Value Reference Range Interpretation Comments Potassium Lvl (test code = Potassium 3.2 3.5-5.1 Lvl) [facility] XIDRH0930-05-25 15:55:00 Test Item Value Reference Range Interpretation Comments Chloride Lvl (test code = Chloride Lvl) 102 95-109 [facility] TIECX9051-53-31 15:55:00 Test Item Value Reference Range Interpretation Comments CO2 (test code = CO2) 31 24-32 [facility] [id number] 15:55:00 Test Item Value Reference Range Interpretation Comments Calcium Lvl (test code = Calcium Lvl) 8.8 8.5-10.5 [facility] [id number] 15:55:00 Test Item Value Reference Range Interpretation Comments AGAP (test code = AGAP) 10.2 10.0-20.0 [facility] [id number] 15:55:00 Test Item Value Reference Range Interpretation Comments eGFR (test code = eGFR) 54 [facility] NorthwestUjwywrxCQCRNLOASO6169-20-84 15:55:00 Test Item Value Reference Range Interpretation Comments Segs (test code = Segs) 72.3 45.0-75.0 [place] 475321-10-19 15:55:00 Test Item Value Reference Range Interpretation Comments Lymphocytes (test code = Lymphocytes) 16.8 20.0-40.0 [place] 475321-10-19 15:55:00 Test Item Value Reference Range Interpretation Comments Monocytes (test code = Monocytes) 9.8 2.0-12.0 [place] 475321-10-19 15:55:00 Test Item Value Reference Range Interpretation Comments Basophils (test code = 1.1 See_Comment [Aut omated message] The Basophils) system which ge nerated this result tra nsmitted reference range : <=1.0. The reference r shin was not used to int erpret this result as normal/abnormal . [place] 475321-10-19 15:55:00 Test Item Value Reference Range Interpretation Comments Neutrophils # (test code = Neutrophils 4.7 1.5-8.1 #) [facility] NorthwestZoanhnlDOVRUUNZLX9834-95-71 15:55:00 Test Item Value Reference Range Interpretation Comments Lymphocytes # (test code = Lymphocytes 1.1 1.0-5.5 #) [facility] NorthwestFkmufpoVZPJHRKCSF9161-71-66 15:55:00 Test Item Value Reference Range Interpretation Comments Monocytes # (test code 0.6 See_Comment [Aut omated message] The = Monocytes #) system which generated this result tra nsmitted reference range : <=0.8. The reference r shin was not used to int erpret this result as normal/abnormal . [place] 475321-10-19 15:55:00 Test Item Value Reference Range Interpretation Comments Basophils # (test code 0.1 See_Comment [Aut omated message] The = Basophils #) system which generated this result tra nsmitted reference range : <=0.2. The reference r shin was not used to int erpret this result as normal/abnormal . [facility] NorthwestAsxmdctIFAYGXSAAR1722-81-78 15:55:00 Test Item Value Reference Range Interpretation Comments WBC (test code = WBC) 6.5 3.7-10.4 [place] 475321-10-19 15:55:00 Test Item Value Reference Range Interpretation Comments RBC (test code = RBC) 4.02 4.20-5.40 [facility] IjhdcrcXQZHKUNYVD5839-07-46 15:55:00 Test Item Value Reference Range Interpretation Comments Hgb (test code = Hgb) 11.4 12.0-16.0 [facility] WfucahyDMKOOGLDMJ2117-37-52 15:55:00 Test Item Value Reference Range Interpretation Comments Hct (test code = Hct) 35.0 36.0-48.0 [facility] RiftdfwVACZMCNFXL9848-61-77 15:55:00 Test Item Value Reference Range Interpretation Comments MCV (test code = MCV) 86.9 80.0-98.0 [facility] AqcsaiuDGFWCXRUJL4380-00-64 15:55:00 Test Item Value Reference Range Interpretation Comments MCH (test code = MCH) 28.4 pg 27.0-31.0 [facility] YmxaxewRNJYXJDKFT2295-74-26 15:55:00 Test Item Value Reference Range Interpretation Comments MCHC (test code = MCHC) 32.7 32.0-36.0 [facility] LatqvniMIALARFPRH0008-52-05 15:55:00 Test Item Value Reference Range Interpretation Comments RDW (test code = RDW) 14.5 11.5-14.5 [facility] UdlxcnmEKTKGKEKZQ5274-68-19 15:55:00 Test Item Value Reference Range Interpretation Comments Platelet (test code = Platelet) 256 133-450 [facility] PasoRulkxrxHTNRLXSLID8401-26-16 15:55:00 Test Item Value Reference Range Interpretation Comments MPV (test code = MPV) 8.1 7.4-10.4 [facility] PrxjbwhYAIZVCFPME7942-22-34 15:55:00 Test Item Value Reference Range Interpretation Comments PT (test code = PT) 12.2 s 12.0-14.7 [facility] NtehyfxYDNDYCQVHQ1714-03-45 15:55:00 Test Item Value Reference Range Interpretation Comments INR (test code = INR) 0.91 1 0.85-1.17 [facility] SvjasggMZCMQWJGGF2197-01-34 15:55:00 Test Item Value Reference Range Interpretation Comments PTT (test code = PTT) 26.8 s 22.9-35.8 [employer] YWILJGC8960-65-39 15:55:00 Test Item Value Reference Range Interpretation Comments ABO/Rh (test code = ABO/Rh) O POS [employer] IKKKZOJ6199-81-58 15:55:00 Test Item Value Reference Range Interpretation Comments Antibody Scrn (test Negative (07/02/21 code = Antibody Scrn) 10:55 AM) [facility]2021-10-19 15:55:00 Test Item Value Reference Range Interpretation Comments Glucose Lvl (test code = Glucose Lvl) 97 70-99 [facility]2021-10-19 15:55:00 Test Item Value Reference Range Interpretation Comments BUN (test code = BUN) 19 7-22 [facility]2021-10-19 15:55:00 Test Item Value Reference Range Interpretation Comments Creatinine Lvl (test code = Creatinine 1.01 0.50-1.40 Lvl) [facility]2021-10-19 15:55:00 Test Item Value Reference Range Interpretation Comments Sodium Lvl (test code = Sodium Lvl) 140 135-145 [facility] CTGXY4460-93-99 15:55:00 Test Item Value Reference Range Interpretation Comments Potassium Lvl (test code = Potassium 3.2 3.5-5.1 Lvl) [facility]2021-10-19 15:55:00 Test Item Value Reference Range Interpretation Comments Chloride Lvl (test code = Chloride Lvl) 102 95-109 [facility]2021-10-19 15:55:00 Test Item Value Reference Range Interpretation Comments CO2 (test code = CO2) 31 24-32 [facility]2021-10-19 15:55:00 Test Item Value Reference Range Interpretation Comments Calcium Lvl (test code = Calcium Lvl) 8.8 8.5-10.5 [facility]2021-10-19 15:55:00 Test Item Value Reference Range Interpretation Comments AGAP (test code = AGAP) 10.2 10.0-20.0 [facility]2021-10-19 15:55:00 Test Item Value Reference Range Interpretation Comments eGFR (test code = eGFR) 54 [facility] NorthwestRngqgunVWBNHATWWZ2673-36-18 15:55:00 Test Item Value Reference Range Interpretation Comments Segs (test code = Segs) 72.3 45.0-75.0 [facility] NorthwestRufaydrFCVIOUQBZJ9425-68-52 15:55:00 Test Item Value Reference Range Interpretation Comments Lymphocytes (test code = Lymphocytes) 16.8 20.0-40.0 [facility] NorthwestIoqmskzPYDYRBWPYH2760-12-29 15:55:00 Test Item Value Reference Range Interpretation Comments Monocytes (test code = Monocytes) 9.8 2.0-12.0 [facility] NorthwestDgobvlfKXYKPYCAFX8570-35-89 15:55:00 Test Item Value Reference Range Interpretation Comments Basophils (test code = 1.1 See_Comment [Aut omated message] The Basophils) system which ge nerated this result tra nsmitted reference range : <=1.0. The reference r shin was not used to int erpret this result as normal/abnormal . [facility] NorthwestBilcowpUWGBZPJJTM9477-86-60 15:55:00 Test Item Value Reference Range Interpretation Comments Neutrophils # (test code = Neutrophils 4.7 1.5-8.1 #) [facility] NorthwestPqujxmySVLVFEMNEE7671-11-89 15:55:00 Test Item Value Reference Range Interpretation Comments Lymphocytes # (test code = Lymphocytes 1.1 1.0-5.5 #) [facility] NorthwestXtszzcdLOPRRYJXNX8344-72-13 15:55:00 Test Item Value Reference Range Interpretation Comments Monocytes # (test code 0.6 See_Comment [Aut omated message] The = Monocytes #) system which generated this result tra nsmitted reference range : <=0.8. The reference r shin was not used to int erpret this result as normal/abnormal . [facility] NorthwestQpzhoypPGDKMVZPRH1740-97-94 15:55:00 Test Item Value Reference Range Interpretation Comments Basophils # (test code 0.1 See_Comment [Aut omated message] The = Basophils #) system which generated this result tra nsmitted reference range : <=0.2. The reference r shin was not used to int erpret this result as normal/abnormal . [facility] NorthwestHtvflbgVHCEGLEKGC1454-27-03 15:55:00 Test Item Value Reference Range Interpretation Comments WBC (test code = WBC) 6.5 3.7-10.4 [facility] NorthwestFcctvfuUHWURSRIHJ9959-48-55 15:55:00 Test Item Value Reference Range Interpretation Comments RBC (test code = RBC) 4.02 4.20-5.40 [facility] NorthwestVnteomhROZXCBHJCL7232-93-05 15:55:00 Test Item Value Reference Range Interpretation Comments Hgb (test code = Hgb) 11.4 12.0-16.0 [facility] NorthwestPpxismlBWUJGWQSXK4086-88-93 15:55:00 Test Item Value Reference Range Interpretation Comments Hct (test code = Hct) 35.0 36.0-48.0 [facility]oSijaqntYRMQRJXLMF0581-29-63 15:55:00 Test Item Value Reference Range Interpretation Comments MCV (test code = MCV) 86.9 80.0-98.0 [facility] PasoZreuhnuAUVQRQNYAK3399-70-17 15:55:00 Test Item Value Reference Range Interpretation Comments MCH (test code = MCH) 28.4 pg 27.0-31.0 [facility] PasoWkzpwwbGYGWAUMLAB6093-58-62 15:55:00 Test Item Value Reference Range Interpretation Comments MCHC (test code = MCHC) 32.7 32.0-36.0 [facility] BvwayqoLSIMQEUCXD4455-03-94 15:55:00 Test Item Value Reference Range Interpretation Comments RDW (test code = RDW) 14.5 11.5-14.5 [facility] PasoHzmlezaNQNTGZNSIH3583-82-44 15:55:00 Test Item Value Reference Range Interpretation Comments Platelet (test code = Platelet) 256 133-450 [facility] PasoKafmlluEFKMYLVWHA4327-62-25 15:55:00 Test Item Value Reference Range Interpretation Comments MPV (test code = MPV) 8.1 7.4-10.4 [facility] PasoEdmlnalXBCXFTMPTT7140-81-39 15:55:00 Test Item Value Reference Range Interpretation Comments PT (test code = PT) 12.2 s 12.0-14.7 [facility] PasoYlrdacvFYLJSBIGJR9876-96-70 15:55:00 Test Item Value Reference Range Interpretation Comments INR (test code = INR) 0.91 1 0.85-1.17 [facility] PasoRualqwjCVELFBLWGI7221-75-64 15:55:00 Test Item Value Reference Range Interpretation Comments PTT (test code = PTT) 26.8 s 22.9-35.8 [facility] [employer] HWZYMVL8862-23-32 15:55:00 Test Item Value Reference Range Interpretation Comments ABO/Rh (test code = ABO/Rh) O POS [facility] [employer] SUCVDKM7034-03-12 15:55:00 Test Item Value Reference Range Interpretation Comments Antibody Scrn (test Negative (07/02/21 code = Antibody Scrn) 10:55 AM) [facility] Penemarie K Murphy LGZWY9871-21-95 15:55:00 Test Item Value Reference Range Interpretation Comments Glucose Lvl (test code = Glucose Lvl) 97 70-99 [facility]2021-10-19 15:55:00 Test Item Value Reference Range Interpretation Comments BUN (test code = BUN) 19 7-22 [place] 720081-10-19 15:55:00 Test Item Value Reference Range Interpretation Comments Creatinine Lvl (test code = Creatinine 1.01 0.50-1.40 Lvl) [facility]2021-10-19 15:55:00 Test Item Value Reference Range Interpretation Comments Sodium Lvl (test code = Sodium Lvl) 140 135-145 [facility]2021-10-19 15:55:00 Test Item Value Reference Range Interpretation Comments Potassium Lvl (test code = Potassium 3.2 3.5-5.1 Lvl) [facility]2021-10-19 15:55:00 Test Item Value Reference Range Interpretation Comments Chloride Lvl (test code = Chloride Lvl) 102 95-109 [facility]2021-10-19 15:55:00 Test Item Value Reference Range Interpretation Comments CO2 (test code = CO2) 31 24-32 [facility]2021-10-19 15:55:00 Test Item Value Reference Range Interpretation Comments Calcium Lvl (test code = Calcium Lvl) 8.8 8.5-10.5 [facility]2021-10-19 15:55:00 Test Item Value Reference Range Interpretation Comments AGAP (test code = AGAP) 10.2 10.0-20.0 [facility]2021-10-19 15:55:00 Test Item Value Reference Range Interpretation Comments eGFR (test code = eGFR) 54 [facility] NorthwestEabjreiQHKLAIFXMO2608-87-99 15:55:00 Test Item Value Reference Range Interpretation Comments Segs (test code = Segs) 72.3 45.0-75.0 [place] 475321-10-19 15:55:00 Test Item Value Reference Range Interpretation Comments Lymphocytes (test code = Lymphocytes) 16.8 20.0-40.0 [place] 475321-10-19 15:55:00 Test Item Value Reference Range Interpretation Comments Monocytes (test code = Monocytes) 9.8 2.0-12.0 [place] [address]-10-19 15:55:00 Test Item Value Reference Range Interpretation Comments Basophils (test code = 1.1 See_Comment [Aut omated message] The Basophils) system which ge nerated this result tra nsmitted reference range : <=1.0. The reference r shin was not used to int erpret this result as normal/abnormal . [facility] NorthwestGklznwcBCIPQUHRHN8539-55-03 15:55:00 Test Item Value Reference Range Interpretation Comments Neutrophils # (test code = Neutrophils 4.7 1.5-8.1 #) [facility] NorthwestTvtstyhKLRHMYTGDK4867-77-46 15:55:00 Test Item Value Reference Range Interpretation Comments Lymphocytes # (test code = Lymphocytes 1.1 1.0-5.5 #) [facility] NorthwestGpasedsELIMEWBQBN9431-76-77 15:55:00 Test Item Value Reference Range Interpretation Comments Monocytes # (test code 0.6 See_Comment [Aut omated message] The = Monocytes #) system which generated this result tra nsmitted reference range : <=0.8. The reference r shin was not used to int erpret this result as normal/abnormal . [place] 475321-10-19 15:55:00 Test Item Value Reference Range Interpretation Comments Basophils # (test code 0.1 See_Comment [Aut omated message] The = Basophils #) system which generated this result tra nsmitted reference range : <=0.2. The reference r shin was not used to int erpret this result as normal/abnormal . [facility] NorthwestGyknqlsBSMBAJEHCE3612-80-71 15:55:00 Test Item Value Reference Range Interpretation Comments WBC (test code = WBC) 6.5 3.7-10.4 [place] 475321-10-19 15:55:00 Test Item Value Reference Range Interpretation Comments RBC (test code = RBC) 4.02 4.20-5.40 [place] 475321-10-19 15:55:00 Test Item Value Reference Range Interpretation Comments Hgb (test code = Hgb) 11.4 12.0-16.0 [place] 475321-10-19 15:55:00 Test Item Value Reference Range Interpretation Comments Hct (test code = Hct) 35.0 36.0-48.0 [place] 475321-10-19 15:55:00 Test Item Value Reference Range Interpretation Comments MCV (test code = MCV) 86.9 80.0-98.0 [facility] NorthwestYruihzhTVPLRMLQZV5446-12-05 15:55:00 Test Item Value Reference Range Interpretation Comments MCH (test code = MCH) 28.4 pg 27.0-31.0 [facility] NorthwestMrqhukiCVGHAYMLKN8844-64-88 15:55:00 Test Item Value Reference Range Interpretation Comments MCHC (test code = MCHC) 32.7 32.0-36.0 [facility] NorthwestVxqkhugNDNPQVCPLD5366-13-45 15:55:00 Test Item Value Reference Range Interpretation Comments RDW (test code = RDW) 14.5 11.5-14.5 [facility] NorthwestYjnglnrOIRCDORVIG0058-17-42 15:55:00 Test Item Value Reference Range Interpretation Comments Platelet (test code = Platelet) 256 133-450 [facility] NorthwestLdlbobgXFWEEHJTGY7197-65-90 15:55:00 Test Item Value Reference Range Interpretation Comments MPV (test code = MPV) 8.1 7.4-10.4 [facility] NorthwestAzosafpGTBCOLBANA2741-00-26 15:55:00 Test Item Value Reference Range Interpretation Comments PT (test code = PT) 12.2 s 12.0-14.7 [facility] NorthwestTsuvrwtLURAACFROI9231-63-93 15:55:00 Test Item Value Reference Range Interpretation Comments INR (test code = INR) 0.91 1 0.85-1.17 [facility] NorthwestDuqiajdTWYVBTMGRJ8765-03-65 15:55:00 Test Item Value Reference Range Interpretation Comments PTT (test code = PTT) 26.8 s 22.9-35.8 [facility]NvkfrlmAWVAJPMUCW4525-18-20 14:24:00 Test Item Value Reference Range Interpretation Comments Coronavirus (COVID-19) Not Detected MADELINE (test code = (07/02/21 9:24 AM) Coronavirus (COVID-19) MADELINE) [facility]lakeLibwmmiBLISYYMCMD5803-11-44 14:24:00 Test Item Value Reference Range Interpretation Comments Coronavirus (COVID-19) Not Detected MADELINE (test code = (07/02/21 9:24 AM) Coronavirus (COVID-19) MADELINE) [facility]lakeXbiacesPLKHXOSDGF1849-87-86 14:24:00 Test Item Value Reference Range Interpretation Comments Coronavirus (COVID-19) Not Detected MADELINE (test code = (07/02/21 9:24 AM) Coronavirus (COVID-19) MADELINE) [facility] Notes Date/Time Note Provider Source 2022-01-01 13:23:00-00:00 [id number] [place] [address] PATIENT NAME: NEELA LA ADMIT DATE: 12/18/21 ACCOUNT NO: [id number] ROOM NO: AGE: 76 REPORT TYPE: eTRANSESOPHAGEAL ECHO REPORT SEX: F ADMITTING PHYSICIAN: ATTENDING PHYSICIAN:Ortiz Domingo MD *[place] [address] Transesophageal Echocardiogram Patient: Neela La Study Date: 12/18/2021 BP: Location: [facility] URN: [id number] : 1945 Age: 76 Height: 67 in / 170.2 cm Gender: F Weight: 160 .7 lb / 73 kg BMI/BSA: 25.2 kg/m 2 / 1.84 m 2 *Ordering Physician: * Ortiz Domingo *Interpreting Physician: * Chayo Alcantar MD *[employer] Attendant: * Susy Easton Indications: POST WATCHMAN. Study data: Consent: The risks, benefits, and al ternatives to the procedure were explained to the patient and info rmed consent was obtained. Procedure: Initial setup: The patient was brought to the laboratory in the fasting state.Intravenous acce ss was obtained. Surface ECG leads and pulse oximetric signals were monit ored. Sedation. Moderate sedation was administered by cardiology staff. T ransesophageal echocardiography was performed. Topical anesthes ia was obtained using benzocaine spray. A transesophageal probe (SN: [id number]) was inserted by the attending supervisor aircraft cleaning without difficulty. L ocation: Procedure room. Patient status: Outpatient. Patient room n umber: CATHLAB. Study status: Routine. Study completion: The patient t olerated the procedure well. There were no complications. PATIENT NAME: NEELA LA Findings Left ventricle: The cavity size is normal. Systo lic function is normal. Right ventricle: The cavity size is normal. Syst olic function is normal. Left atrium: The atrium is normal in size. Post Watchman: There is no evidence of residual flow around the Watchman oc cluder device. Right atrium: The atrium is normal in size. Mitral valve: The valve is structurally normal. There is no evidence of a vegetation. There is mild regurgit ation. Conclusions Summary: 1. Left ventricle: The cavity size is normal. Sy stolic function is normal. 2. Left atrium: Post Watchman: There is no evide nce of residual flow around the Watchman occluder device. 3. Mitral valve: There is no evidence of a veget ation. Prepared and electronically signed by Chayo Alcantar MD 01/01/2022 13:23 Electronically Signed by Ortiz Domingo MD on at 1323 PATIENT NAME: NEELA LA 2021-12-18 13:15:00-00:00 [id number] [place] [address] PATIENT NAME: NEELA LA ADMIT DATE: 12/18/21 ACCOUNT NO: [id number] ROOM NO: AGE: 76 REPORT TYPE: eELECTROCARDIOGRAM REPORT SEX: F ADMITTING PHYSICIAN: ATTENDING PHYSICIAN:Ortiz Domingo MD Order: [id number] Test Reason : S/P PCI Test Date/Time Stamp: ThuDec 18 2021 13:15:12 Blood Pressure : / mmHG Vent. Rate : 059 BPM Atrial Rate : 312 BPM P-R Int : 000 ms QRS Dur : 074 ms QT Int : 378 ms P-R-T Axes : 000 023 -42 degree s QTc Int : 374 ms Atrial fibrillation with slow ventricular respon se Nonspecific ST and T wave abnormality Abnormal ECG Confirmed by TANYA CENTENO MD ([id number]) on 9:14:18 AM Referred By: Ortiz Domingo Confirmed by:TANYA STEEL MD at 0914 PATIENT NAME: NEELA LA 2021-12-18 13:15:00-00:00 [id number] [place] [address] PATIENT NAME: NEELA LA ADMIT DATE: 12/18/21 ACCOUNT NO: [id number] ROOM NO: AGE: 76 REPORT TYPE: OPERATIVE REPORT SEX: F ADMITTING PHYSICIAN: ATTENDING PHYSICIAN:Ortiz Domingo MD OPERATION DATE: 12/18/2021 PREOPERATIVE DIAGNOSIS: POSTOPERATIVE DIAGNOSIS: SURGEON: Ortiz Domingo MD COAL HANDLER: PROCEDURES PERFORMED: 1. Post-Watchman transesophageal echocardiogram. 2. FFR of the proximal LAD stenosis shows insign ificant at 0.85 to 0.9. 3. PCI of severe distal left circumflex, large v essel. I used 2.75 x 20 mm Synergy drug-eluting stent. COMPLICATIONS: None. BLEEDING: Less than 10 mL. INDICATIONS: 1. Known severe coronary artery disease with ang gracie. 2. Post-Watchman implantation. ACCESS: Right radial artery, 6-Surinamese closed wit h TR band. TOTAL SEDATION TIME: 75 minutes. ANESTHESIA: Local anesthesia, moderate sedation. DESCRIPTION OF PROCEDURE: After risks, benefits, and alternatives were explained, the patient agreed to proceed and sig ivon informed consent. The patient was brought into cardiac catheterization laboratory and then after applying local anesthetic to the back of the thr oat, moderate sedation was applied using Versed and fentanyl, and then VIANCA probe was inserted without difficulties. A VIANCA images were obtained and the n probe was removed without complications. Then the patient was draped in th e usual sterile fashion. She was given 180 of Brilinta. She received aspirin already today. We accessed right radial artery using pediatric micr opuncture kit, placed 6-Surinamese slender sheath and then took a 6-Surinamese XB3.5 guide into the aortic root, engaged the left main, took a Runthrough wire through the left circumflex crossing with the area of stenosis. The area was predilate d and then used a 2.75 x 20 mm Synergy drug-eluting stent with excellent results. Then, I took a Comet wire into the PATIENT NAME: NEELA LA PAT aortic root, pressures were equalized. Heparin w as given throughout the procedure from the beginning to assure A CT level above 250. The Comet wire was then advanced through the LA D and passing the proximal LAD stenosis and FFR was done and it was insignificant value of 0.85 to 0 .9, pulling back there was no drift. Then, final angiogram was satisfactory an d removed the guide and the sheath, placed TR band with good hemostasis. CONCLUSION: 1. Successful PCI of severe distal left circumflex stenosis as outlined above. 2. Moderate LAD stenosis with negative FFR of 0. 85. 3. Satisfactory Watchman device position with no leak or thrombus. PLAN: Aspirin and Brilinta, and discontinue Xare lto. Follow up with me in the office in 1 month. Dictated By: Ortiz Domingo MD WT: OP:EFRA/ESTEPHANIA/NTS Conf#: [id number]/DID#: [id number] Authenticated by Ortiz Domingo MD On 01/15/2022 09:18:51 AM Electronically Signed by Ortiz Domingo MD on at 0918 PATIENT NAME: NEELA LA 2021-12-16 12:05:00-00:00 [id number] [place] [address] PATIENT NAME: NEELA LA ADMIT DATE: ACCOUNT NO: [id number] ROOM NO: AGE: 76 REPORT TYPE: eELECTROCARDIOGRAM REPORT SEX: F ADMITTING PHYSICIAN: ATTENDING PHYSICIAN:Ortiz Domingo MD Order: [id number] Test Reason : PREOP Test Date/Time Stamp: ThuDec 16 2021 12:05:59 Blood Pressure : / mmHG Vent. Rate : 056 BPM Atrial Rate : 300 BPM P-R Int : 000 ms QRS Dur : 074 ms QT Int : 412 ms P-R-T Axes : 000 063 090 degre es QTc Int : 397 ms Atrial fibrillation with slow ventricular respon se Abnormal ECG PRE_OP Confirmed by TANYA CENTENO MD ([id number]) on 3:03:13 PM Referred By: Ortiz Domingo Confirmed by:TANYA STEEL MD at 1503 PATIENT NAME: NEELA LA 2021-11-21 11:05:00-00:00 [facility] ([facility]) Discharge Summary REPORT#:[id number] REPORT STATUS: Signed DATE:11/21/21 TIME: 1105 PATIENT: NEELA LA UNIT #: [id number] ROOM/BED: [place] [address] : 44 AGE: 76 SEX: F ATTEND: Trudy Medley MD ADM AUTHOR: Alan Toussaint * ALL edits or amendments must be made on the Zong/computer document * PCP PCP Discharge to: home General Information Discharge date: 11/21/21 Hospital course: Patient with long standing p ersistent atrial fibrillation, CHADSVASC score of 5, and intolerance to long-term anticoagulation due to high risk for falls. Patient is s/p successful implantation of a 24mm Watchman device in the left atrial appendage. Patient tolerated the procedure without post-op complications. No thrombus was identified in the pre-/intra-op VIANCA. Postoperatively, chest x-ray is negative for any acute process. Post-op echo did not show a pericardial effusion. Patient ambulated without an y difficulty, and heart rate and blood pressure are stable. Right groin suture removed by this TRUCK OPERATOR. No infect ion, bleeding, or hematoma. Patient was provided with post-Watchman discharg e instructions. Patient is to follow up with PCP and supervisor aircraft cleaning in 1 to 2 we eks post discharge. Patient is to follow up with supervisor aircraft cleaning for th e 45-day VIANCA, and for anticoagulation recommendation. Patient is to continue Eliquis until the 45-day VIANCA. If the 45-day VIANCA shows a we ll-seated watchman device with no leaks or thrombus, then Eliquis will be discontinued and the patien t will be initiated on Plavix and continue aspirin. Duration of aspirin is lifelong. Duration of Plavix is 6 months post 45-day VIANCA. Post-Watchman discharge instructions given to th e patient who verbalized understanding, and patient w as instructed to report any complaints of chest pain , shortness of breath, lightheadedness, or dizzi ness to the supervisor aircraft cleaning. Med Rec PCP PCP: PCP: Jayy Linda MD Med Rec Discharge meds: Continue taking these medications: ASPIRIN EC (ECOTRIN) 81 MG TAB.EC [address]IGRAM ORAL DA[address]. D[address] (CYMBALTA) 60 MG CAP.DR 60 MILLIGRAM ORAL DAILY. DULoxetine DR (CYMBALTA) 60 MG CAP.DR 60 MILLIGRAM ORAL BEDTIME. ALPRAZolam (XANAX) 0.25 MG TAB 0.25 MILLIGRAM ORAL BEDTIME. APIXABAN (ELIQUIS) 5 MG TAB 5 MILLIGRAM ORAL TWICE DAILY. LEVOTHYROXINE (SYNTHROID) 100 MCG TAB 100 MICROGRAM ORAL DAILY. ESOMEPRAZOLE MAG DR (NexIUM) 20 MG CAP.DR 20 MILLIGRAM ORAL DAILY. as needed for REFLUX FUROSEMIDE (LASIX) 40 MG TAB 40 MILLIGRAM ORAL DAILY. traZODone (DESYREL) 100 MG TAB 100 MILLIGRAM ORAL BEDTIME. POTASSIUM CHLORIDE ER (MICRO-K) 10 MEQ CAP.SA 10 MILLIEQUIVALENT ORAL DAILY. CARVEDILOL (COREG) 12.5 MG TAB 12.5 MILLIGRAM ORAL TWICE DAILY. DIGOXIN (LANOXIN) 125 MCG TAB 0.125 MILLIGRAM ORAL DAILY. DILTIAZEM (CARDIZEM) 60 MG TAB 60 MILLIGRAM ORAL EVERY 8 HOURS. MOMETASONE/FORMOTEROL (DULERA 200/5 MCG/ACT) 200 MCG-5 MCG/ACTUATION INHALER 2 PUFF INHALATION RT - TWICE DAILY. Objective VS/I O Last Documented: Result Date Time O2 Delivery Nasal cannula 11/21 08 O2 Flow Rate 2 11/21 08 Pulse Ox 93 11/21 0755 B/P 184/87 11/21 0755 B/P Mean 0.0 11/21 0755 Temp 36.9 11/21 0755 Pulse 77 11/21 0755 Resp 15 11/21 0755 24 hour I O ending at 0700: 11/21 0700 11/20 1900 Intake Total Output Total 200 Balance -200 Output, Urine 200 Patient 72.9 kg Weight Weight Stated/Reported Measurement Method PATIENT WEIGHT: Weight (lb): 160 Weight (oz): 11.47 Weight (kg): 72.900 General appearance: alert, awake, oriented Cardiovascular: irregular rhythm Respiratory: clear to auscultation, no distress GI: soft, non-tender Extremities: moves all Neuro/FOUNDER CHAIRMAN AND CHIEF CREATIVE OFFICER: alert, oriented X 3 Skin: dry Wound/incision: Location: Right groin suture removed by this TRUCK OPERATOR. No infect ion, bleeding, or hematoma. Results Findings/Data: Laboratory Tests: 11/21 11/21 11/20 0843 0410 1338 Chemistry Sodium (134 - 147 mEq/L) 141 Potassium (3.4 - 5.0 mEq/L) 4.1 Chloride (100 - 108 mEq/L) 102 Carbon Dioxide (21 - 33 mEq/l) 30 Anion Gap (0 - 20) 13 BUN (7 - 18 mg/dL) 15 Creatinine (0.6 - 1.3 mg/dL) 1.3 Glomerular Filtr Rate (70 - 80) 39.7 L Glucose (70 - 110 mg/dL) 124 H Calcium (8.0 - 10.5 mg/dL) 8.7 Coagulation Activated Coag Time (74 - 137 SEC) 148 H 261 H Hematology WBC (4.5 - 11.0 x10 3/uL) 6.5 RBC (3.54 - 5.02 x10 6/uL) 3.69 Hgb (11.0 - 15.0 g/dL) 9.2 L Hct (33.0 - 45.0 %) 30.9 L MCV (81.0 - 99.0 fL) 83.7 MCH (27.0 - 33.0 pg) 24.9 L MCHC (33.0 - 37.0 g/dL) 29.8 L RDW (11.5 - 14.5 %) 16.5 H Plt Count (150 - 400 x10 3/uL) 302 MPV (7.0 - 9.0 fL) 10.2 H Neut % (Auto) (56.0 - 77.0 %) 86.9 H Lymph % (Auto) (14.0 - 32.0 %) 9.2 L [place] % (Auto) (4.8 - 9.0 %) 3.4 L Eos % (Auto) (0.3 - 3.7 %) 0.0 L Baso % (Auto) (0.0 - 2.0 %) 0.2 Neut # (Auto) (2.0 - 7.6 x10 3/uL) 5.69 Lymph # (Auto) (1.0 - 3.8 x10 3/uL) 0.60 L [place] # (Auto) (0.1 - 0.8 x10 3/uL) 0.22 Eos # (Auto) (0.0 - 0.2 x10 3/uL) 0.00 Baso # (Auto) (0.0 - 0.2 x10 3/uL) 0.01 Abs Immat Gran (auto) (0.00 - 0.03 x10 3/uL) 0. 02 Add Manual Diff NO Immature Gran % (0.0 - 2.0 %) 0.3 Nucleated RBC % (0 - 0 %) 0.0 Nucleated RBCs # (Man) (0.0 - 0.1 x10 3/uL) 0.0 0 Radiology data: Recent Impressions: RADIOLOGY - XR CHEST 1 V 11/20 1557 Report Impression - Status: SIGNED Entered: 11/20/2021 160 IMPRESSION: No acute abnormality in the chest. No radiopaque device is seen in the chest. Impression By: Salas Tinoco Treatments Procedures Treatments Procedures: Left atrial appendage closure using a 24 mm Watc hman FLX closure device. Lab: Chemistry last 24 hrs: 11/21 409 Chemistry Sodium (134 - 147 mEq/L) 141 Potassium (3.4 - 5.0 mEq/L) 4.1 Chloride (100 - 108 mEq/L) 102 BUN (7 - 18 mg/dL) 15 Creatinine (0.6 - 1.3 mg/dL) 1.3 Glucose (70 - 110 mg/dL) 124 H Hematology last 24 hrs: 11/210 Hematology WBC (4.5 - 11.0 x10 3/uL) 6.5 Hgb (11.0 - 15.0 g/dL) 9.2 L Hct (33.0 - 45.0 %) 30.9 L Plt Count (150 - 400 x10 3/uL) 302 Neut % (Auto) (56.0 - 77.0 %) 86.9 H Imaging: Recent Impressions: RADIOLOGY - XR CHEST 1 V 11/20 1557 Report Impression - Status: SIGNED Entered: 11/20/2021 1605 IMPRESSION: No acute abnormality in the chest. No radiopaque device is seen in the chest. Impression By: Salas Tinoco Discharge Instructions PCP PCP: PCP: Jayy Linda MD )( Discharge to: Home/Self Care Discharge Instructions Additional Discharge Routines: Attending Follow- Up )( Diet: Cardiac )( Activity: As Tolerated Follow-up Appointments Attending Physician: Attending Physician: Ortiz Domingo MD Attending physician follow up timeframe: In 1-2 weeks Quality: Discharge Advanced Care Plan 65 or Older Discussed with: patient Electronically Signed by Alan Toussaint o n 11/21/21 at 1114 Electronically Signed by Kenny Medley MD on at 1353 RPT #:[id number] END OF REPORT 2021-11-21 11:02:00-00:00 [phone] [place] [address] PATIENT NAME: NEELA LA ADMIT DATE: 11/20/21 ACCOUNT NO: [id number] ROOM NO: [id number] AGE: 76 REPORT TYPE: eECHOCARDIOGRAM REPORT SEX: F ADMITTING PHYSICIAN:Ortiz Domingo MD ATTENDING PHYSICIAN:Kenny Medley MD *[place] [address] Limited Transthoracic Echocardiogram Patient: Neela La Study Date: 11/21/2021 BP: 171 / 89 Location: [facility] URN: [id number] : 1945 Age: 76 Height: 69 in / 175.3 cm Gender: F Weight: 159 .7 lb / 72.6 kg BMI/BSA: 23.6 kg/m 2 / 1.88 m 2 *Ordering Physician: * Alan Toussaint *Interpreting Physician: * Kenny Medley MD *[employer] Attendant: Liz Yañez Indications: R/O PERICARDIAL EFFUSION. Study data: Transthoracic echocardiogram, limite d study. Procedure: Transthoracic echocardiography was performed. Im ages were obtained using a CIRQY cardiac ultrasound machine. Limited 2D and limited spectral Doppler. Location: Bedside. Patient status: [place]rin[place] weston. Patient room number: 3360. Study status: Routine. Findings Left ventricle: The cavity size is normal. Wall thickness is normal. Systolic function is at the lower limits of norm al. The estimated ejection fraction is 45-49%. Left atrium: The atrium is dilated. Right atrium: The atrium is dilated. PATIENT NAME: NEELA LA PAT Mitral valve: There is mild to moderate regurgit ation. Tricuspid valve: There is moderate regurgitation . Pericardium: A prominent pericardial fat pad is present. There is no pericardial effusion. Systemic veins: Inferior vena cava: The vessel is normal in size . Measurements Left ventricle Value Ref ANEUDY, LAX 4.6 cm 3.8 - 5.2 ESD, LAX 3.4 cm 2.2 - 3.5 ESD/bsa, LAX 1.8 cm/m 2 1.3 - 2.1 FS, LAX 26 % 27 - 45 ESD/bsa major ax, A4C 3.2 cm/m 2 --------- ANEUDY/bsa minor ax, A4C 3.2 cm/m 2 --------- ANEUDY major ax, A2C 7.3 cm --------- ANEUDY/bsa major ax, A2C 3.9 cm/m 2 --------- PW, ED 0.9 cm 0.6 - 0.9 IVS/PW, ED 1.22 --------- EF 50 % 54 - 74 Ventricular septum Value Ref IVS, ED 1.1 cm 0.6 - 0.9 Right ventricle Value Ref Pressure, S 67 mm Hg --------- Mitral valve Value Ref MR peak v 6.13 m/sec --------- Tricuspid valve Value Ref TR peak v 3.77 m/sec <=2.8 Peak RV-RA grad, S 57 mm Hg --------- Pulmonary artery Value Ref Pressure, S 67.0 mm Hg --------- Systemic veins Value Ref Estimated CVP 10 mm Hg --------- Conclusions Summary: 1. Left ventricle: The cavity size is normal. Wa ll thickness is normal. Systolic function is at the lower limits of nor mal. The estimated ejection fraction is 45-49%. 2. Left atrium: The atrium is dilated. 3. Right atrium: The atrium is dilated. 4. Mitral valve: There is mild to moderate regur gitation. 5. Tricuspid valve: There is moderate regurgitat ion. PATIENT NAME: NEELA LA Prepared and electronically signed by Kenny Medley MD 11/21/2021 11:01 Electronically Signed by Kenny Medley MD on 0 11/21/21 at 1102 PATIENT NAME: NEELA LA 2021-11-21 09:20:00-00:00 [facility] REPORT#:[id number] REPORT STATUS: Signed DATE:11/21/21 TIME: 919 PATIENT: NEELA LA UNIT #: [id number] [place]: [facility] : 44 AGE: 76 SEX: F ATTEND: Trudy Medley MD ADM AUTHOR: Linda Shah NP * ALL edits or amendments must be made on the Zong/computer document * Subjective Chief complaint: Doing well, await for d/c home. Patient reports: No: chest pain, nausea. Nursing reports: No: complaints. Comments: Pt is in RA, right groin site soft, no hematoma. Objective General VS/I O: 24 hour I O ending at 0700: 11/20 1900 11/21 0700 Intake Total Output Total 200 Balance -200 Output, Urine 200 Patient 72.9 kg Weight Weight Stated/Reported Measurement Method Vital Signs: Date Time Temp Pulse Resp B/P B/P Pulse O2 O2 Flow FiO2 Mean Ox Delivery Rate 11/21 1111 97.3 72 18 133/74 93.6 95 Room air 11/21 1111 97.3 72 18 133/74 93.6 95 Room air 11/21 0800 Nasal 2 cannula 11/21 0755 98.4 77 15 184/87 0.0 93 Room air 11/21 0528 97.9 80 18 171/89 0.0 93 Room air 11/21 0006 97.7 83 16 154/72 0.0 97 Room air 11/20 2045 97.7 78 18 163/94 0.0 95 Room air 11/20 1800 98.4 78 20 139/77 0.0 95 Room air 11/20 1735 Nasal 2 cannula PATIENT WEIGHT: Weight (lb): 160 Weight (oz): 11.47 Weight (kg): 72.900 Medications: Active Meds + DC'd Last 24 Hrs Aspirin (ASPIRIN) 81 MG DAILY PO (DCD) Digoxin (LANOXIN) 0.125 MG DAILY PO (DCD) Duloxetine HCl (CYMBALTA) 60 MG DAILY PO (DCD) Furosemide (LASIX) 40 MG DAILY PO (DCD) Levothyroxine Sodium (Synthroid) 100 MCG DAILY 0 600 PO (DCD) Diphenhydramine HCl (BENADRYL) 25 MG ONCE ONE PO (DC) Acetaminophen (TYLENOL) 650 MG Q6H PRN PRN PO (D CD) Alprazolam (XANAX 0.25) 0.25 MG BEDTIME PO (DCD) Apixaban (ELIQUIS 5MG TABLET) 5 MG BID PO (DCD) Carvedilol (COREG) 12.5 MG BID PO (DCD) Atropine Sulfate (ATROPINE SULFATE) 0.4 MG ONCE ONE IM (DC) Benzocaine/Butamben/Tetracaine HCl (CETACAINE) 1 APPLIC ONCE ONE MM (DC) Fentanyl Citrate (SUBLIMAZE) 100 MCG ONCE ONE IV (DC) Flumazenil (ROMAZICON) 0.5 MG ONCE ONE IV (DC) Midazolam HCl (VERSED) 5 MG ONCE ONE IV (DC) Sodium Chloride (SODIUM CHLORIDE 0.9%) 500 ML DIR IV (DCD) Diltiazem HCl (CARDIZEM) 60 MG Q8H PO (DCD) Sodium Chloride (SODIUM CHLORIDE 0.9%) 250 ML DIR PRN IV (DCD) Fentanyl Citrate (SUBLIMAZE) 100 MCG PACU Q10MIN PRN PRN IV (DC) Fentanyl Citrate (SUBLIMAZE) 50 MCG PACU Q10MIN PRN PRN IV (DC) Hydralazine HCl (APRESOLINE) 2 MG PACU Q10MIN NH N PRN IV (DC) Hydrocodone Bitart/Acetaminophen (NORCO 5/325) 1 TAB PACU ONCE PO (DC) Hydromorphone HCl (DILAUDID) 1 MG PACU Q10MIN NH N PRN IV (DC) Hydromorphone HCl (DILAUDID) 0.5 MG PACU Q5MIN P RN PRN IV (DC) Insulin Human Lispro (HUMALOG) 0 PACU ONCE PRN S UBQ (DC) Labetalol HCl (LABETALOL HCL) 5 MG PACU Q10MIN P RN PRN IV (DC) Meperidine HCl (DEMEROL 50MG/ML) 12.5 MG PACU ON CE PRN IV (DC) Morphine Sulfate (morphine SULFATE) 2 MG PACU Q1 0MIN PRN PRN IV (DC) Ondansetron HCl (ZOFRAN) 4 MG PACU ONCE PRN IV ( DC) Ropivacaine (NAROPIN 0.5% 150 MG/30mL) 150 MG DIR PRN LOCAL (DC) Tramadol HCl (ULTRAM) 50 MG PACU ONCE PO (DC) Physical Exam General appearance: alert, awake, oriented, no a cute distress, pleasant, conversational, mental status normal, no respira tory distress Head/Eyes: atraumatic, clear cornea, PERRLA ENT: moist mucosal membranes Neck: full range of motion, non-tender, no JVD Cardiovascular: CV assessment: irregularly irregular Respiratory: decreased breath sounds, no distres s Abdomen: soft, non-tender, normal bowel sounds, no distention Genitourinary: no flank pain, no stewart Upper extremity: UE assessment: normal capillary refill, normal temperature, no edema Lower extremity: LE assessment: normal temperature Wound/incision: Location: rt groin puncture site soft, no oozing, no hemat donta Psychiatry: normal affect, normal mood Results Findings/Data: Laboratory Tests 11/21 0410 Chemistry Sodium (134 - 147 mEq/L) 141 Potassium (3.4 - 5.0 mEq/L) 4.1 Chloride (100 - 108 mEq/L) 102 Carbon Dioxide (21 - 33 mEq/l) 30 Anion Gap (0 - 20) 13 BUN (7 - 18 mg/dL) 15 Creatinine (0.6 - 1.3 mg/dL) 1.3 Glomerular Filtr Rate (70 - 80) 39.7 L Glucose (70 - 110 mg/dL) 124 H Calcium (8.0 - 10.5 mg/dL) 8.7 Laboratory Tests 11/21 0843 Coagulation Activated Coag Time (74 - 137 SEC) 148 H Laboratory Tests 11/21 0410 Hematology WBC (4.5 - 11.0 x10 3/uL) 6.5 RBC (3.54 - 5.02 x10 6/uL) 3.69 Hgb (11.0 - 15.0 g/dL) 9.2 L Hct (33.0 - 45.0 %) 30.9 L MCV (81.0 - 99.0 fL) 83.7 MCH (27.0 - 33.0 pg) 24.9 L MCHC (33.0 - 37.0 g/dL) 29.8 L RDW (11.5 - 14.5 %) 16.5 H Plt Count (150 - 400 x10 3/uL) 302 MPV (7.0 - 9.0 fL) 10.2 H Neut % (Auto) (56.0 - 77.0 %) 86.9 H Lymph % (Auto) (14.0 - 32.0 %) 9.2 L [place] % (Auto) (4.8 - 9.0 %) 3.4 L Eos % (Auto) (0.3 - 3.7 %) 0.0 L Baso % (Auto) (0.0 - 2.0 %) 0.2 Neut # (Auto) (2.0 - 7.6 x10 3/uL) 5.69 Lymph # (Auto) (1.0 - 3.8 x10 3/uL) 0.60 L [place] # (Auto) (0.1 - 0.8 x10 3/uL) 0.22 Eos # (Auto) (0.0 - 0.2 x10 3/uL) 0.00 Baso # (Auto) (0.0 - 0.2 x10 3/uL) 0.01 Abs Immat Gran (auto) (0.00 - 0.03 x10 3/uL) 0. 02 Add Manual Diff NO Immature Gran % (0.0 - 2.0 %) 0.3 Nucleated RBC % (0 - 0 %) 0.0 Nucleated RBCs # (Man) (0.0 - 0.1 x10 3/uL) 0.0 0 Radiology data: Recent Impressions: RADIOLOGY - XR CHEST 1 V 11/20 1558 Report Impression - Status: SIGNED Entered: 11/20/2021 4605 IMPRESSION: No acute abnormality in the chest. No radiopaque device is seen in the chest. Impression By: [email or web address] - Salas [place] Results: labs reviewed, vital signs reviewed, vi simon signs stable, rhythm personally rev'd, x-ray personally reviewed, cur rent med profile rev'd Telemetry Interpretation: Atrial fibrillation Diagnosis, Assessment Plan Free Text DxA P Notes Free Text DxA P Notes: - AF s/p Watchman 24mm device insertion. Postop echocardiogram showed ejection fraction 45 to 49%, no effusion, moderate TR. Right groin site soft, no hematoma, no oozing. Hemodynamics stable. Ambulate w/o difficult. Cont Eliquis 5mg po bid, digoxin 0.125 mg p.o. daily, carvedilol 12.5 mg p.o. twice daily and diltiazem 60 mg p.o. 3 times aleyda ly Ok d/c home from cardiac standpoint, f/ u w/ her supervisor aircraft cleaning, Dr. Domingo in 2 wks. - HTN. BP controlled. Carvedilol and diltiazem Electronically Signed by Linda Shah NP on at 1528 Electronically Signed by Kenny Medley MD on at 1353 RPT #:[id number] END OF REPORT 2021-11-20 18:07:00-00:00 [facility] ([facility]) History Physical - Adult REPORT#:[id number] REPORT STATUS: Signed DATE:11/20/21 TIME: 1806 PATIENT: NEELA LA UNIT #: [id number] ROOM/BED: [place] [address] : 44 AGE: 76 SEX: F ATTEND: Trudy Medley MD ADM AUTHOR: Alan Toussaint * ALL edits or amendments must be made on the Zong/computer document * History of Present Illness HPI Chief complaint: s/p Watchman PCP: PCP: Jayy Linda MD HPI: 76 F PMH: Afib Pt is high risk for recurren t falls. ChadsVasc >3. Poor candidate for long-term AC. s/p Watchman Admitted for overnight observation. 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 SHE H A LIVING WILL, AND MPOA, AND WISHES FULL CODE. Medication/Allergy-Vaccine Hx Medications: Home Medications: Medication Dose/Rte/Freq Days Qty Entered Last Max Daily Dose Reviewed ASPIRIN EC (ECOTRIN) 81 MG PO DAILY 11/18/21 Strength: 81 MG TAB.EC [address] (CYMBALTA) 60 MG PO DAILY 11/20/21 Strength: 60 MG CAP.DR [address] (CYMBALTA) 60 MG PO BEDTIME 11/1811/20/21 Strength: 60 MG CAP. 1440 1145 ALPRAZolam (XANAX) 0.25 MG PO BEDTIME 11/18/21 11/20/21 Strength: 0.25 MG TAB 1442 1145 APIXABAN (ELIQUIS) 5 MG PO BID 11/18/21 2 Strength: 5 MG TAB 1442 1145 LEVOTHYROXINE 100 MCG PO DAILY 11/18/21 2 (SYNTHROID) 1443 1145 Strength: 100 MCG TAB ESOMEPRAZOLE MAG DR 20 MG PO 11/18/21 11/20/21 (NexIUM) DAILY PRN REFLUX 1444 1145 Strength: 20 MG CAP. FUROSEMIDE (LASIX) 40 MG PO DAILY 11/18/2106/05 Strength: 40 MG TAB 1445 1145 traZODone (DESYREL) 100 MG PO BEDTIME 11/18/21 11/20/21 Strength: 100 MG TAB 1445 1145 POTASSIUM CHLORIDE ER 10 MEQ PO DAILY 11/18/21 11/20/21 (MICRO-K) 1446 1145 Strength: 10 MEQ CAP.SA CARVEDILOL (COREG) 12.5 MG PO BID 11/18/2106/05 Strength: 12.5 MG TAB 1446 1145 DIGOXIN (LANOXIN) 0.125 MG PO DAILY 11/18/21 Strength: 125 MCG TAB 1447 1145 DILTIAZEM (CARDIZEM) 60 MG PO Q8H 11/18/2106/05 Strength: 60 MG TAB 1447 1145 MOMETASONE/FORMOTEROL 2 PUFF INH RTBID 11/18/21 11/20/21 (DULERA 200/5 MCG/ACT) 1448 1145 Strength: 200 MCG-5 MCG/ACTUATION INHALER Current Hospital Medications: Anti-Infective Agents Sig/Anabel Start time Last Medication Dose Route Stop Time Status Admin Cefazolin Sodium 0 .STK-MED ONE 11/20 1249 DC 0 11/20 (KEFZOL OR ANCEF) .ROUTE 1328 Autonomic Drugs Sig/Anabel Start time Last Medication Dose Route Stop Time Status Admin Atropine Sulfate 0.4 MG ONCE ONE 11/20 1545 DC (ATROPINE SULFATE) IM 11/20 1546 Glycopyrrolate 0 .STK-MED ONE 11/20 1354 DC (GLYCOPYRROLATE) .ROUTE Neostigmine 0 .STK-MED ONE 11/20 1354 DC Methylsulfate .ROUTE (PROSTIGMIN) Phenylephrine HCl 0 .STK-MED ONE 11/20 1246 DC (EMIL-SYNEPHRINE I-PINA 1000MCG/NS 10ML INJ) Rocuronium Eva 0 .STK-MED ONE 11/20 1246 DC (ZEMURON) IV Succinylcholine 0 .STK-MED ONE 11/20 1246 DC Chloride IV (QUELICIN FLIPTOP) Phenylephrine HCl 0 .STK-MED ONE 11/20 1236 DC (EMIL-SYNEPHRINE 10MG/ .ROUTE ML AMP) Blood Formation,Coagulation Sig/Anabel Start time Last Medication Dose Route Stop Time Status Admin Apixaban 5 MG BID 11/20 2100 AC (ELIQUIS 5MG TABLET) PO 12/20 2058 Protamine Sulfate 0 .STK-MED ONE 11/20 1349 DC (PROTAMINE SULFATE) IV Heparin Sodium 0 .STK-MED ONE 11/20 1317 DC (HEPARIN SODIUM) .ROUTE 1328 Heparin Sodium/ 2,000 ML .STK-MED ONE 11/20 131 7 DC 11/20 Sodium Chloride IV 1328 (HEPARIN 2,000 UNITS/ NS 1,000mL) Heparin Sodium 0 .STK-MED ONE 11/20 1246 DC (HEPARIN SODIUM) .ROUTE Cardiovascular Drugs Sig/Anabel Start time Last Medication Dose Route Stop Time Status Admin Digoxin 0.125 MG DAILY 11/21 0900 AC (LANOXIN) PO 12/21 0859 Carvedilol 12.5 MG BID 11/20 2100 AC (COREG) PO 12/20 2058 Diltiazem HCl 60 MG Q8H 11/20 1430 AC (CARDIZEM) PO 12/20 1429 Hydralazine HCl 2 MG PACU Q10MIN PRN PRN 11/20 1300 AC (APRESOLINE) IV 11/20 2053 Labetalol HCl 5 MG PACU Q10MIN PRN PRN 11/20 13 00 AC (LABETALOL HCL) IV 11/20 2053 Lidocaine HCl 0 .STK-MED ONE 11/20 1246 DC (XYLOCAINE) .ROUTE Lidocaine HCl 0 .STK-MED ONE 11/20 1130 DC (XYLOCAINE) .ROUTE Lidocaine HCl 2 ML PREOP ONCALL 11/18 1515 DC (LIDOCAINE HCL/PF) LOCAL 12/18 235 Lidocaine HCl 2 ML PREOP ONCALL 11/18 1515 DC (LIDOCAINE HCL/PF) LOCAL 12/18 235 Central Nervous System Agents Sig/Anabel Start time Last Medication Dose Route Stop Time Status Admin Aspirin 81 MG DAILY 11/21 899 AC (ASPIRIN) PO 12/21 858 Duloxetine HCl 60 MG DAILY 11/21 899 AC (CYMBALTA) PO 12/21 858 Alprazolam 0.25 MG BEDTIME 11/20 2100 AC (XANAX 0.25) PO 12/20 2058 Fentanyl Citrate 100 MCG ONCE ONE 11/20 1545 DC (SUBLIMAZE) IV 11/20 1546 Flumazenil 0.5 MG ONCE ONE 11/20 1545 DC (ROMAZICON) IV 11/20 1546 Midazolam HCl 5 MG ONCE ONE 11/20 1545 DC (VERSED) IV 11/20 1546 Fentanyl Citrate 0 .STK-MED ONE 11/20 1452 DC (SUBLIMAZE) .ROUTE Fentanyl Citrate 100 MCG PACU Q10MIN PRN PRN 1300 AC 11/20 (SUBLIMAZE) IV 11/20 2053 1455 Fentanyl Citrate 50 MCG PACU Q10MIN PRN PRN 1300 AC (SUBLIMAZE) IV 11/20 2053 Hydrocodone Bitart/ 1 TAB PACU ONCE 11/20 1300 CKD Acetaminophen PO 11/20 2053 (NORCO 5/325) Hydromorphone HCl 1 MG PACU Q10MIN PRN PRN 1300 AC (DILAUDID) IV 11/20 2053 Hydromorphone HCl 0.5 MG PACU Q5MIN PRN PRN 1300 AC (DILAUDID) IV 11/20 2053 Meperidine HCl 12.5 MG PACU ONCE PRN 11/20 1300 AC (DEMEROL 50MG/ML) IV 11/20 2053 Morphine Sulfate 2 MG PACU Q10MIN PRN PRN 11/20 1300 AC (morphine SULFATE) IV 11/20 2053 Tramadol HCl 50 MG PACU ONCE 11/20 1300 CKD (ULTRAM) PO 11/20 2053 Fentanyl Citrate 0 .STK-MED ONE 11/20 1249 DC (SUBLIMAZE) .ROUTE Etomidate 0 .STK-MED ONE 11/20 1246 DC (AMIDATE) IV Acetaminophen 1,000 MG PREOP ONCALL 11/18 1515 DC (TYLENOL EXTRA PO 12/18 235 STRENGTH) Gabapentin 200 MG PREOP ONCALL 11/18 1515 DC (NEURONTIN) PO 12/18 2359 Electrolytic, Caloric, And Davon Sig/Anabel Start time Last Medication Dose Route Stop Time Status Admin Furosemide 40 MG DAILY 11/21 0900 AC (LASIX) PO 12/21 0859 Sodium Chloride 500 ML ASDIR 11/20 1545 AC (SODIUM CHLORIDE IV 12/20 1544 0.9%) Sodium Chloride 250 ML ASDIR PRN 11/20 1430 AC (SODIUM CHLORIDE IV 12/20 1429 0.9%) Sodium Chloride 250 ML .STK-MED ONE 11/20 1236 DC (SODIUM CHLORIDE IV 0.9%) Lactated Ringer's 1,000 ML PREOP ONCALL 11/18 1 515 DC (LACTATED RINGERS) IV 12/18 235 Sodium Chloride 500 ML PREOP ONCALL 11/18 1515 DC (SODIUM CHLORIDE IV 12/18 2359 0.9%) Sodium Chloride 500 ML PREOP ONCALL 11/18 1515 DC (SODIUM CHLORIDE IV 12/18 235 0.9%) Sodium Chloride 1,000 ML PREOP ONCALL 11/18 151 5 DC (SODIUM CHLORIDE IV 12/18 2359 0.9%) Sodium Chloride 5 ML ASDIR PRN 11/18 1515 DC (SODIUM CHLORIDE) IV 12/18 1514 Sodium Chloride 10 ML ASDIR PRN 11/18 1515 DC (SODIUM CHLORIDE) IV 12/18 151 Sodium Chloride 250 ML ASDIR PRN 11/18 1515 DC (SODIUM CHLORIDE IV 12/18 151 0.9%) Eye, Ear, Nose And Throat (Een Sig/Anabel Start time Last Medication Dose Route Stop Time Status Admin Dexamethasone Sodium 0 .STK-MED ONE 11/20 1246 DC Phosphate .ROUTE (DECADRON) Gastrointestinal Drugs Sig/Anabel Start time Last Medication Dose Route Stop Time Status Admin Ondansetron HCl 4 MG PACU ONCE PRN 11/20 1300 A C (ZOFRAN) IV 11/20 2053 Ondansetron HCl 0 .STK-MED ONE 11/20 1246 DC (ZOFRAN) .ROUTE Hormones And Synthetic Substit Sig/Anabel Start time Last Medication Dose Route Stop Time Status Admin Levothyroxine Sodium 100 MCG DAILY 0600 11/21 0 600 AC (Synthroid) PO 12/21 0559 Insulin Human Lispro 0 PACU ONCE PRN 11/20 1300 AC (HUMALOG) SUBQ 11/20 2053 Local Anesthetics (Parenteral) Sig/Anabel Start time Last Medication Dose Route Stop Time Status Admin Bupivacaine HCl 0 .STK-MED ONE 11/20 1317 DC (MARCAINE 0.5%) .ROUTE 1328 Ropivacaine 150 MG ASDIR PRN 11/20 1300 AC (NAROPIN 0.5% 150 MG/ LOCAL 11/20 2100 30mL) Skin And Mucous Membrane Agent Sig/Anabel Start time Last Medication Dose Route Stop Time Status Admin Benzocaine/Butamben/ 1 APPLIC ONCE ONE 11/20 15 45 DC Tetracaine HCl MM 11/20 1546 (CETACAINE) Allergies: Coded Allergies: codeine (Mild, AFFECTS HIATAL HERNIA 11/18/21) Physical Exam VS/I O Vital Signs: Date Time Temp Pulse Resp B/P B/P Pulse O2 O2 F low FiO2 Mean Ox Delivery Rate 11/20 1800 36.9 78 20 139/77 0.0 95 Room air 11/20 1512 Nasal 2 cannula PATIENT WEIGHT: Weight (lb): 160 Weight (oz): 11.47 Weight (kg): 72.900 General appearance: alert, awake, oriented Cardiovascular: irregular rhythm Respiratory: clear to auscultation, no distress Abdomen/GI: soft, non-tender Extremities: moves all 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 No radiopaque device is seen in the chest. Impression By: [email or web address] Salas Tejeda Diagnosis, Assessment Plan Orders: Procedure Date/time Status Discharge Order with Parameter 11/21 1000 Activ e CBC W/AUTO DIFF 11/21 0500 Active BASIC METABOLIC PANEL 11/21 0500 Active LIMITED ECHO 11/21 0500 Active XR CHEST 1V 11/20 1558 Complete Change Admit/Attend Doctor 11/20 1438 Active Resuscitation Status 11/20 142 Active Telemetry Monitoring 11/20 142 Active Remove Sutures/Villard 11/20 142 Active Sheath Management 11/20 142 Active Post Procedure: Activity 11/20 142 Active Post Op Vital Signs 11/20 142 Active POSTOP: Bedrest 11/20 1426 Active Assess: Peripheral Pulse 11/20 1426 Active Notify MD - Vitals 11/20 1426 Active MRSA Protocol 11/20 142 Active IV Access 11/20 142 Active Closure Device 11/20 142 Active EKG 11/20 142 Active COVID-19 Risk Assessment 11/20 142 Active LEVEL OF CARE 11/20 142 Active ADMIT PATIENT (CPOE) 11/20 142 Active TRANSFER 11/20 142 Complete ADULT VIANCA COMPLETE 11/20 07 Active ECHO DOPPLER COMP 11/20 07 Active COLOR FLOW DOPPLER 11/20 07 Active Plan discussed with: patient Code Status/Resusc. Discussion Code status: full code Quality: Gen Med Crit Care VTE Prophylaxis VTE prophylaxis initiated: yes Advanced Care Plan 65 or Older Discussed with: patient Discussion included: living will, power of attor joaquin, code status Electronically Signed by Alan Toussaint o n 11/20/21 at 1813 Electronically Signed by Kenny Medley MD on at 1353 RPT #:[id number] END OF REPORT 2021-11-20 15:24:00-00:00 [id number] [address] PATIENT NAME: NEELA LA ADMIT DATE: 11/20/21 ACCOUNT NO: [id number] [place] [facility] [place] 76 REPORT TYPE: eELECTROCARDIOGRAM REPORT SEX: F ADMITTING PHYSICIAN:Ortiz Domingo MD ATTENDING PHYSICIAN:Kenny Medley MD Order: [id number] Test Reason : POST WATCHMAN Test Date/Time Stamp: ThuNov 20 2021 15:24:37 Blood Pressure : / mmHG Vent. Rate : 067 BPM Atrial Rate : 083 BPM P-R Int : 000 ms QRS Dur : 088 ms QT Int : 406 ms P-R-T Axes : 000 023 -89 degree s QTc Int : 429 ms Atrial fibrillation Nonspecific ST and T wave abnormality Abnormal ECG When compared with ECG of 18-NOV-2021 14:21, No significant change was found Confirmed by JESUS MOODY MD ([id number]) on 6:00:05 PM Referred By: Ortiz Domingo Confirmed by:JESUS RUIZ MD at 1800 PATIENT NAME: NEELA LA 2021-11-20 13:59:00-00:00 [id number] [place] [address] PATIENT NAME: NEELA LA ADMIT DATE: 11/20/21 ACCOUNT NO: [id number] ROOM NO: [id number] AGE: 76 REPORT TYPE: OPERATIVE REPORT SEX: F ADMITTING PHYSICIAN:Ortiz Domingo MD ATTENDING PHYSICIAN:Kenny Medley MD OPERATION DATE: 11/20/2021 PROCEDURE PERFORMED: Left atrial appendage closu re using a 24 mm Watchman FLX closure device. INDICATIONS: Atrial fibrillation with inability to tolerate anticoagulation, high risk and high risk of stroke. ACCESS: Right femoral vein, 16-Surinamese closed wit h [id number]-[id number] suture. COMPLICATIONS: None. BLEEDING: Less than 10 mL. DESCRIPTION OF PROCEDURE: After risks, benefits, and alternatives were explained, the patient agreed to proceed and sig ivon informed consent. The patient was brought into the cardiac catheteriza tion laboratory, prepped and draped in sterile fashion. Then, we accessed rig ht femoral vein using micropuncture kit and ultras ound guidance and placed an 8-Surinamese sheath and then upgraded to a 16-Surinamese Cook sheath and gave par tial dose of heparin. Subsequently, took SL1 sheath into the S VC and with Mack advanced across the needle inside, descended into the interatrial se ptum and in the low mid position. Transseptal puncture was done successfully. LA pressure was measured at 11 mmHg. Full dose heparin was given to assur e ACT level above 250 throughout the procedure. Then, I took a n exchange for a Watchman double curve sheath and then took a pigta il through it into the left atrium and then directly advanced into the appendage. Subsequently, appen dage angiogram was done and determined 24-mm Watchman closure device will be suitable for closure. The device was prepped and de-ai red in the usual sterile fashion and then introduced into the Watchman sheath aft er removal of the pigtail and a good bleed back and then device was deployed successfully into the a ppendage. PASS criteria were evaluated and met. As such, the device was relea sed in position and then we remained in a stable position. Then, we took the Watchman sheath and the Cook sheath and placed fxxyem-[id number] suture with go od hemostasis. CONCLUSION: Successful left atrial appendage saniya sure using 24 mm Watchman FLX closure device. Dictated By: Ortiz Domingo MD WT: OP:EFRA/ESTEPHANIA/TAYLOR PATIENT NAME: NEELA LA Conf#: [id number]/DID#: [id number] Authenticated by Ortiz Domingo MD On 11/27/2021 11:44:16 AM Electronically Signed by Ortiz Domingo MD on at 1144 PATIENT NAME: NEELA LA IRENA 2021-11-18 15:20:00-00:00 [facility]L [facility] ([facility] Hospitalist History Physical REPORT#:[id number] REPORT STATUS: Signed DATE:11/18/21 TIME: 1520 PATIENT: NEELA LA UNIT #: [id number] ROOM/BED: : 44 AGE: 76 SEX: F ATTEND: Karina Domingo MD ADM AUTHOR: Alex Lynn MD * ALL edits or amendments must be made on the [employer]/computer document * History of Present Illness HPI Chief complaint: HERE FOR WATCHMAN PREOP EVAL PCP: PCP: Jayy Linda MD HPI: 76 WF WITH CHRONCI A.FIB, ON ELIQUIS BUT AT RISK FOR FALLS/EASY BRUISING, ANEMIA OF CD, HYPOTHYROIDISM, HTN, CAD/STENT, PAD/STENT , DEPRESSION. TODAY SHE HAS NO C/O CP/SOB/ NV/F/C/COUGH/D/SICK CONTACT. SHE HAD COVID VACCINES X3, AND NL USES A WALKER FOR AMBULATION AROUND H ER HOUSE. Informant/historian: patient, prior records History Past Medical Surgical Hx Additional surgical history: LYLA, NECK/BACK Family History Additional family history: FATHER WITH CAD Social History Alcohol use: Denies EtOH use Drug use: Denies recreational drugs Smoking status: Smoking status for patients 13 years old or old er: Former Smoker Additional social history: , RETIRED FROM A [employer]. SHE HAS A LIVING WILL, AND MPOA, AND WISHES FULL CODE. Medication/Allergy-Vaccine Hx Medications: Home Medications: ASPIRIN EC (ECOTRIN) 81 MG PO DAILY DULoxetine DR (CYMBALTA) 60 MG PO DAILY DULoxetine DR (CYMBALTA) 60 MG PO BEDTIME ALPRAZolam (XANAX) 0.25 MG PO BEDTIME APIXABAN (ELIQUIS) 5 MG PO BID LEVOTHYROXINE (SYNTHROID) 100 MCG PO DAILY ESOMEPRAZOLE MAG DR (NexIUM) 20 MG PO DAILY PRN REFLUX FUROSEMIDE (LASIX) 40 MG PO DAILY traZODone (DESYREL) 100 MG PO BEDTIME POTASSIUM CHLORIDE ER (MICRO-K) 10 MEQ PO DAILY CARVEDILOL (COREG) 12.5 MG PO BID DIGOXIN (LANOXIN) 0.125 MG PO DAILY DILTIAZEM (CARDIZEM) 60 MG PO Q8H MOMETASONE/FORMOTEROL (DULERA 200/5 MCG/ACT) 2 P UFF INH RTBID Allergies: Coded Allergies: codeine (Mild, AFFECTS HIATAL HERNIA 11/18/21) Review of Systems Free Text ROS Notes Free Text ROS Notes: 12 POINT ROS WERE REVIEWED AND NEGATIVE. Physical Exam VS/I O: Patient Weight and BMI Weight (kg): 76.300 BMI: 24.8 General appearance: chronically ill appearing, a lert, awake, oriented Neck: no JVD Cardiovascular: irregularly irregular, n ormal heart sounds, no murmur, DISTANT HS Respiratory: aerating well, clear to auscultatio n Abdomen: non-tender, normal bowel sounds, soft Extremities: TRACE PRETIBIAL EDEMA Musculoskeletal: normal inspection Neuro/FOUNDER CHAIRMAN AND [employer]IE[employer] CREATIVE OFFICER: alert, oriented X 3, normal speech, n o motor deficits Skin: normal color Psychiatry: normal affect Results Findings/Data: Laboratory Tests: 11/18 1356 Chemistry Sodium (134 - 147 mEq/L) 144 Potassium (3.4 - 5.0 mEq/L) 4.2 Chloride (100 - 108 mEq/L) 104 Carbon Dioxide (21 - 33 mEq/l) 31 Anion Gap (0 - 20) 13 BUN (7 - 18 mg/dL) 13 Creatinine (0.6 - 1.3 mg/dL) 1.3 Glomerular Filtr Rate (70 - 80) 39.7 L Glucose (70 - 110 mg/dL) 113 H Calcium (8.0 - 10.5 mg/dL) 8.3 Prealbumin (16.0 - 40.0 mg/dL) 12.4 L Coagulation INR (0.8 - 1.2) 1.9 H PT Patient/Control Mix (9.3 - 12.9 SECONDS) 21. 7 H Hematology WBC (4.5 - 11.0 x10 3/uL) 7.8 RBC (3.54 - 5.02 x10 6/uL) 3.93 Hgb (11.0 - 15.0 g/dL) 9.9 L Hct (33.0 - 45.0 %) 33.0 MCV (81.0 - 99.0 fL) 84.0 MCH (27.0 - 33.0 pg) 25.2 L MCHC (33.0 - 37.0 g/dL) 30.0 L RDW (11.5 - 14.5 %) 16.6 H Plt Count (150 - 400 x10 3/uL) 308 MPV (7.0 - 9.0 fL) 10.2 H Neut % (Auto) (56.0 - 77.0 %) 68.6 Lymph % (Auto) (14.0 - 32.0 %) 17.5 [place] % (Auto) (4.8 - 9.0 %) 12.6 H Eos % (Auto) (0.3 - 3.7 %) 0.0 L Baso % (Auto) (0.0 - 2.0 %) 1.0 Neut # (Auto) (2.0 - 7.6 x10 3/uL) 5.34 Lymph # (Auto) (1.0 - 3.8 x10 3/uL) 1.36 [place] # (Auto) (0.1 - 0.8 x10 3/uL) 0.98 H Eos # (Auto) (0.0 - 0.2 x10 3/uL) 0.00 Baso # (Auto) (0.0 - 0.2 x10 3/uL) 0.08 Abs Immat Gran (auto) (0.00 - 0.03 x10 3/uL) 0. 02 Add Manual Diff NO Immature Gran % (0.0 - 2.0 %) 0.3 Nucleated RBC % (0 - 0 %) 0.0 Nucleated RBCs # (Man) (0.0 - 0.1 x10 3/uL) 0.0 0 Laboratory Tests 11/18/21 1356: [Embedded Image Not Available] Diagnosis, Assessment Plan Free Text A P: CHRONIC A.FIB WITH RISKS OF FALLS/EASY BRUISING - PLAN FOR WATCHMAN, PREOP LABS NL, EXCEPT ANEMIA OF CD ANEMIA OF CD - STABLE, NO GI SX, PROCEED WITH WA TCHMAN, AND THEN OFF AC CAD/PAD - STABLE HTN - GOOD DVT PX - ON ELIQUIS NOW Quality: Gen Med Crit Care VTE Prophylaxis VTE prophylaxis initiated: yes Advanced Care Plan 65 or Older Discussed with: patient Discussion included: living will, power of attor joaquin, code status Electronically Signed by Alex Lynn MD on 11/18 at 1527 RPT #:[id number] END OF REPORT 2021-11-18 14:21:00-00:00 [id number] [place] [address] PATIENT NAME: NEELA LA ADMIT DATE: ACCOUNT NO: [id number] ROOM NO: AGE: 76 REPORT TYPE: eELECTROCARDIOGRAM REPORT SEX: F ADMITTING PHYSICIAN: ATTENDING PHYSICIAN:Ortiz Domingo MD Order: [id number] Test Reason : PREOP Test Date/Time Stamp: ThuNov 18 2021 14:21:53 Blood Pressure : / mmHG Vent. Rate : 056 BPM Atrial Rate : 019 BPM P-R Int : 000 ms QRS Dur : 086 ms QT Int : 398 ms P-R-T Axes : 000 064 -85 degree s QTc Int : 384 ms Atrial fibrillation with slow ventricular respon se T wave abnormality, consider inferior ischemia Abnormal ECG No previous ECGs available Confirmed by JESUS MOODY MD ([id number]) on 2 3:57:06 PM Referred By: Ortiz Domingo Confirmed by:JESUS RUIZ MD at 1558 PATIENT NAME: NEELA LA IRENA
[2023-03-16] MEDS ORDERED: NITROGLYCERIN 0.4 MG/TAB SL ONE (14:00)
[2023-03-16 14:16] LABS: Absolute Lymphocytes (CBC) 0.9 K/uL (0.7-4.9); Hematocrit 34.6 % (36.0-45.0); MCV 85.9 fL (80-100); MPV 7.9 fL (7.6-11.3); RBC Red Blood Cell Count 4.03 M/uL (3.86-4.86)
[2023-03-16 14:24] LABS: Protime INR 0.99
[2023-03-16 14:58] LABS: Anisocytosis 3+; Blood Morphology Comment NOTED (NOT SEEN); Platelet Estimate ADEQ; White Blood Cell Scan OK (OK)
[2023-03-16 15:17] LABS: Bilirubin Direct 0.3 mg/dL (0-0.2); Bilirubin Indirect, Calculated 0.4 mg/dL (0.2-0.8); Bilirubin Total 0.7 mg/dL (0.2-1.0); Magnesium 2.2 mg/dL (1.6-2.4); Protein, Total 6.8 g/dL (6.4-8.2)
[2023-03-16 15:18] LABS: Troponin High Sensitivity 622.1 pg/mL (<58.9)
--- NOTE | 2023-03-16 15:21 | RAD REPORT ---
EXAM DESCRIPTION: RAD - Chest Single View - 03/16/2023 3:06 pm CLINICAL HISTORY: CHEST PAIN Chest pain. COMPARISON: Chest Single View dated 12/06/2022; Chest Single View dated 12/02/2022; Chest Single View dated 09/22/2022; Chest Single View dated 08/19/2022 FINDINGS: Portable technique limits examination quality. Mild interstitial pulmonary edema. The heart is normal in size. No displaced fractures.Cervical hardw are plate. IMPRESSION: Mild CHF.
[2023-03-16] MEDS ORDERED: HEPARIN 5000 UNIT/ML 1 ML VIAL ONE (16:05)
[2023-03-16] MEDS ORDERED: LABETALOL HCL 100 MG/20 ML ONE (16:06)
[2023-03-16] MEDS ORDERED: HEPARIN/D5W 25,000 UNIT/500 ML BAG IV ONE (16:06)
[2023-03-16] MEDS ORDERED: LABETALOL 20 MG/4ML SYRINGE IV ONE ×2 (16:08→16:49)
--- NOTE | 2023-03-16 16:34 | ER ---
Nurse's Notes [facility] Name: Neela Staton Age: 78 yrs Sex: Female : 1945 Arrival Date: 03/16/2023 Time: 13:29 Bed 4 Private MD: James Linda C Diagnosis: Subsequent non-ST elevation (NSTEMI) myocardial infarction Presentation: 03/16 13:44 Chief complaint: Patient states: left sided chest pain and headache started last night. eh3 Coronavirus screen: Vaccine status: Patient reports receiving the 2nd dose of the covid vaccine. Ebola Screen: No symptoms or risks identified at this time. Risk Assessment: Do you want to hurt yourself or someone else? Patient reports no desire to harm self or others. Onset of symptoms was March 15, 2023. 13:44 Method Of Arrival: Wheelchair [facility] 13:44 Acuity: BETHANY 3 eh3 Triage Assessment: 13:46 General: Appears in no apparent distress. uncomfortable, Behavior is calm, cooperative, eh3 appropriate for age. Pain: Complains of pain in anterior aspect of left upper chest Pain does not radiate. Neuro: Level of Consciousness is awake, alert, obeys commands, Oriented to person, place, time, situation. Cardiovascular: Capillary refill < 3 seconds Patient's skin is warm and dry. Respiratory: Airway is patent Respiratory effort is even, unlabored, Respiratory pattern is regular, symmetrical. Historical: - Allergies: 13:46 Codeine; eh3 - PMHx: 13:46 Atrial fibrillation; Depression; GERD; High Cholesterol; Hypertensive disorder; eh3 Hypothyroidism; Myocardial infarction; neuropathy; - PSHx: 13:46 back sx; Cholecystectomy; Total abdominal hysterectomy; Watchman; eh3 - Immunization history:: Adult Immunizations up to date. - Social history:: Smoking status: Patient/guardian denies using tobacco, the patient reports quitting approximately 2 years ago, Patient/guardian denies using alcohol. - Family history:: not pertinent. Screenin:47 [facility] ED Fall Risk Assessment (Adult) History of falling in the last 3 months, kc6 including since admission No falls in past 3 months (0 pts) Confusion or Disorientation No (0 pts) Intoxicated or Sedated No (0 pts) Impaired Gait No (0 pts) Mobility Assist Device Used No (0 pt) Altered Elimination No (0 pt) Score/Fall Risk Level 0 - 2 = Low Risk Oriented to surroundings, Maintained a safe environment, Educated pt \T\ family on fall prevention, incl call for assistance when getting out of bed, Assessed \T\ reinforced patient's understanding of fall precautions, Hourly rounding (assess needs \T\ fall precautionary measures) done. Abuse screen: Denies threats or abuse. Denies injuries from another. Nutritional screening: No deficits noted. Tuberculosis screening: No symptoms or risk factors identified. Assessment: 13:45 General: Appears in no apparent distress. comfortable, Behavior is calm, cooperative, kc6 appropriate for age. Pain: Denies pain. Neuro: Wade Agitation-Sedation Scale (RASS): 0 - Alert and Calm Level of Consciousness is awake, alert, obeys commands, Oriented to person, place, time, situation, Appropriate for age. Cardiovascular: Reports chest pain, Heart tones S1 S2 present Capillary refill < 3 seconds Rhythm is sinus rhythm. Respiratory: Airway is patent Trachea midline Respiratory effort is even, unlabored, Respiratory pattern is regular, symmetrical. GI: No signs and/or symptoms were reported involving the gastrointestinal system. : No signs and/or symptoms were reported regarding the genitourinary system. EENT: No signs and/or symptoms were reported regarding the EENT system. Derm: No signs and/or symptoms reported regarding the dermatologic system. Skin is intact, Skin is pink, warm \T\ dry. Musculoskeletal: No signs and/or symptoms reported regarding the musculoskeletal system. Circulation, motion, and sensation intact. Capillary refill < 3 seconds, Range of motion: intact in all extremities. 14:45 Reassessment: Patient appears in no apparent distress at this time. No changes from kc6 previously documented assessment. Patient and/or family updated on plan of care and expected duration. Pain level reassessed. Patient is alert, oriented x 3, equal unlabored respirations, skin warm/dry/pink. 15:45 Reassessment: Patient appears in no apparent distress at this time. No changes from kc6 previously documented assessment. Patient and/or family updated on plan of care and expected duration. Pain level reassessed. Patient is alert, oriented x 3, equal unlabored respirations, skin warm/dry/pink. 16:45 Reassessment: Patient appears in no apparent distress at this time. No changes from kc6 previously documented assessment. Patient and/or family updated on plan of care and expected duration. Pain level reassessed. Patient is alert, oriented x 3, equal unlabored respirations, skin warm/dry/pink. 16:50 Reassessment: attempted to call report to [facility], 14 tower. nurse unavailable kc at this time, would like me to call back. 16:50 Reassessment: SUHAIL Sanchez and Emely Abarca at bedside attempting to start a second IV. kc6 17:45 Reassessment: Patient appears in no apparent distress at this time. No changes from kc6 previously documented assessment. Patient and/or family updated on plan of care and expected duration. Pain level reassessed. Patient is alert, oriented x 3, equal unlabored respirations, skin warm/dry/pink. Vital Signs: 13:44 BP 173 / 103; Pulse 77; Resp 18; Temp 98.7(O); Pulse Ox 100% ; Weight 63.96 kg; Height eh3 5 ft. 6 in. ; Pain 7/10; 14:24 BP 186 / 80; Pulse 71; Resp 17; Pulse Ox 100% on R/A; Pain 0/10; kc6 14:48 BP 143 / 87; kc6 15:16 BP 193 / 99; Pulse 79; Resp 19 S; Pulse Ox 100% on R/A; kc6 16:20 BP 187 / 87; Pulse 74; Resp 17 S; Pulse Ox 100% on R/A; Pain 0/10; kc6 16:50 BP 201 / 86; Pulse 71; Resp 20 S; Pulse Ox 96% on R/A; kc6 16:57 BP 170 / 97; kc6 17:45 BP 163 / 105; Pulse 75; Resp 19 S; Pulse Ox 95% on R/A; kc6 13:44 Body Mass Index 22.76 (63.96 kg, 167.64 cm) eh3 13:44 Pain Scale: Adult eh3 14:24 Pain Scale: Adult kc6 16:20 Pain Scale: Adult kc6 ED Course: 13:31 Patient arrived in ED. im 13:31 James Linda MD is Private Physician. im 13:32 John Lopez MD is Attending Physician. rt 13:40 Shelton, Shreya, RN is Primary Nurse. kc6 13:45 Triage completed. eh3 13:46 Arm band placed on. eh3 13:48 Patient has correct armband on for positive identification. Bed in low position. Call kc6 light in reach. Side rails up X 1. Adult w/ patient. Client placed on continuous cardiac and pulse oximetry monitoring. NIBP monitoring applied. ekg monitor tech on. 13:48 Patient maintains SpO2 saturation greater than 95% on room air. kc6 14:11 Inserted saline lock: 20 gauge in right antecubital area, using aseptic technique. zm Blood collected. 14:11 Ptt, Activated Sent. zm 14:11 PT-INR Sent. zm 14:11 LFT's Sent. zm 14:11 Basic Metabolic Panel Sent. zm 14:11 CBC with Diff Sent. zm 14:11 Magnesium Sent. zm 14:11 NT PRO-BNP Sent. zm 14:11 Troponin HS Sent. zm 14:11 Initial lab(s) drawn, by me, sent to lab. zm 15:08 XRAY Chest (1 view) In Process Unspecified. EDMS 15:51 Transfer initiated with [facility] transfer center. em1 16:45 Missed attempt(s): 20 gauge in left antecubital area. Missed attempt(s): 20 gauge in kc6 left wrist. Missed attempt(s): 20 gauge in right forearm. 16:56 Inserted saline lock: 22 gauge in right wrist, using aseptic technique. zm 18:10 No provider procedures requiring assistance completed. Patient transferred, IV remains kc6 in place. Administered Medications: 13:54 Drug: Nitroglycerin Sublingual 0.4 mg Route: Sublingual; kc6 14:06 Drug: Nitroglycerin Sublingual 0.4 mg Route: Sublingual; kc6 14:47 Drug: Nitroglycerin Sublingual 0.4 mg Route: Sublingual; kc6 15:46 Follow up: Response: No adverse reaction; Blood pressure is unchanged kc6 16:10 Drug: Labetalol IV 10 mg Route: IV; Rate: calculated rate; Site: right antecubital; kc6 16:51 Follow up: Response: No adverse reaction; Blood pressure is lowered; IV Status: kc6 Completed infusion 16:12 Drug: Heparin (DE-Bolus No thrombolytic) - HEParin IVP 60 units/kg {Co-Signature: iw [facility] (Naya Russell RN).} Route: IVP; Site: right antecubital; 16:51 Follow up: Response: No adverse reaction kc6 16:12 Drug: Heparin (DE Drip) - (D5W IV 500 ml, [place] [address] units) 12 units/kg/hr kc6 {Co-Signature: iw (Naya Russell RN).} Route: IV; Rate: calculated rate; Site: right antecubital; 18:10 Follow up: Response: No adverse reaction; IV Status: Infusion continued upon transfer kc6 16:45 Drug: Labetalol IV 10 mg Route: IV; Rate: calculated rate; Site: right antecubital; kc6 18:10 Follow up: Response: No adverse reaction; Blood pressure is lowered; IV Status: kc6 Completed infusion Medication: 18:10 VIS not applicable for this client. kc6 Outcome: 16:33 ER care complete, transfer ordered by . rt 18:10 Transferred by [facility] to [facility], Transfer form completed. kc6 18:10 Condition: stable 18:10 Instructed on the need for transfer. 18:11 Patient left the ED. kc6 Signatures: Dispatcher [employer] Keyur Ching em1 Dinah Seo RN RN 3 Emely Farnsworth Kaitlyn, RN RN kc6 John Lopez MD MD rt Tari Kurtz Irene RN iw Corrections: (The following items were deleted from the chart) 13:51 13:44 63.96 kg; Height 5 ft. 6 in.; BMI: 22.7; Pain 7/10, Adult; 3 3 17:55 17:55 Pulse 158bpm; Pulse Ox 100% RA; kc6 kc6
--- NOTE | 2023-03-16 16:34 | EDPHYS ---
Physician Documentation [facility] Name: Neela Staton Age: 78 yrs Sex: Female : 1945 Arrival Date: 03/16/2023 Time: 13:29 Bed 4 Private MD: James Linda C ED Physician John Lopez HPI: 03/16 14:53 This 78 yrs old Female presents to ER via Wheelchair with complaints of Chest Pain, rt Headache. 14:53 Patient presents to the ED with chest pain starting this morning. It is waxing waning. rt She had a mild nausea as well as mild headache that is since resolved. Patient states that chest pain has improved and is only of discomfort at this time. Of note, patient does have a history of known coronary artery disease with catheterizations performed this year. Denies other acute complaints at this time. Symptoms are moderate in severity, no other aggravating or alleviating factors.. Historical: - Allergies: 13:46 Codeine; eh3 - PMHx: 13:46 Atrial fibrillation; Depression; GERD; High Cholesterol; Hypertensive disorder; eh3 Hypothyroidism; Myocardial infarction; neuropathy; - PSHx: 13:46 back sx; Cholecystectomy; Total abdominal hysterectomy; Watchman; eh3 - Immunization history:: Adult Immunizations up to date. - Social history:: Smoking status: Patient/guardian denies using tobacco, the patient reports quitting approximately 2 years ago, Patient/guardian denies using alcohol. - Family history:: not pertinent. ROS: 14:53 Constitutional: Negative for fever, chills, and weight loss, Respiratory: Negative for rt shortness of breath, cough, wheezing, and pleuritic chest pain, MS/Extremity: Negative for injury and deformity, Skin: Negative for injury, rash, and discoloration, Psych: Negative for depression, anxiety, suicide ideation, homicidal ideation, and hallucinations. 14:53 Cardiovascular: Positive for chest pain, Negative for edema. 14:53 Abdomen/GI: Positive for nausea, Negative for vomiting. Exam: 14:53 Constitutional: This is a well developed, well nourished patient who is awake, alert, rt and in no acute distress. Head/Face: Normocephalic, atraumatic. Chest/axilla: Normal chest wall appearance and motion. Nontender with no deformity. No lesions are appreciated. Cardiovascular: Regular rate and rhythm with a normal S1 and S2. No gallops, murmurs, or rubs. Normal PMI, no JVD. No pulse deficits. Respiratory: Lungs have equal breath sounds bilaterally, clear to auscultation and percussion. No rales, rhonchi or wheezes noted. No increased work of breathing, no retractions or nasal flaring. Abdomen/GI: Soft, non-tender, with normal bowel sounds. No distension or tympany. No guarding or rebound. No evidence of tenderness throughout. Skin: Warm, dry with normal turgor. Normal color with no rashes, no lesions, and no evidence of cellulitis. MS/ Extremity: Pulses equal, no cyanosis. Neurovascular intact. Full, normal range of motion. Neuro: Awake and alert, GCS 15, oriented to person, place, time, and situation. Cranial nerves II-XII grossly intact. Motor strength 5/5 in all extremities. Sensory grossly intact. Cerebellar exam normal. Normal gait. Psych: Awake, alert, with orientation to person, place and time. Behavior, mood, and affect are within normal limits. 14:53 ECG was reviewed by the Attending Physician. Vital Signs: 13:44 BP 173 / 103; Pulse 77; Resp 18; Temp 98.7(O); Pulse Ox 100% ; Weight 63.96 kg; Height eh3 5 ft. 6 in. ; Pain 7/10; 14:24 BP 186 / 80; Pulse 71; Resp 17; Pulse Ox 100% on R/A; Pain 0/10; kc6 14:48 BP 143 / 87; kc6 15:16 BP 193 / 99; Pulse 79; Resp 19 S; Pulse Ox 100% on R/A; kc6 16:20 BP 187 / 87; Pulse 74; Resp 17 S; Pulse Ox 100% on R/A; Pain 0/10; kc6 16:50 BP 201 / 86; Pulse 71; Resp 20 S; Pulse Ox 96% on R/A; kc6 16:57 BP 170 / 97; kc6 17:45 BP 163 / 105; Pulse 75; Resp 19 S; Pulse Ox 95% on R/A; kc6 13:44 Body Mass Index 22.76 (63.96 kg, 167.64 cm) 3 13:44 Pain Scale: Adult eh3 14:24 Pain Scale: Adult kc6 16:20 Pain Scale: Adult kc6 MDM: 13:40 Patient medically screened. rt 16:34 Differential diagnosis: acute myocardial infarction, coronary artery disease congestive rt heart failure pulmonary embolus, thoracic aortic disection. HEART Score: History: Highly Suspicious (2), ECG: Non specific repolarization disturbance / LBTB / PM (1), Age: > or = 65 years (2), Risk Factors: > or = 3 Risk factors for atherosclerotic disease (2), Troponin: > or = 3 x Normal Limit (2), Total Score = 9. The patient was not given aspirin in the Emergency Department. Patient reports taking aspirin within the past 24 hours. Data reviewed: vital signs, nurses notes, old medical records, Reviewed prior cath report from prior hospitalization showing significant coronary artery disease but recommended for medical management. lab test result(s), EKG, radiologic studies. Consideration of Admission/Observation Patient requires transfer as the [employer] Up Tender is currently down.. Management of patient was discussed with the following: Cheesemaking Laborer: Discussed with accepting peoplesoft analyst. States that patient does not need to be n.p.o. at this time.. I considered the following discharge prescriptions or medication management in the emergency department Medications were administered in the Emergency Department. See MAR. Test considered but Not performed: CT: Low suspicion for PE, CT angiogram not indicated.. External Records Reviewed: Inpatient record: . Care significantly affected by the following chronic conditions: Coronary artery disease. Counseling: I had a detailed discussion with the patient and/or guardian regarding: the historical points, exam findings, and any diagnostic results supporting the discharge/admit diagnosis, lab results, radiology results, the need to transfer to another facility. Response to treatment: the patient's symptoms have resolved after treatment. 18:39 ED course: In transit per EMS, called for 216/104, HR 72. EMS protocol for Lopressor snw 5mg okay to give. Pt a\T\o x 3, denies CP, SOB. Troponin trending down.. 03/16 13:48 Order name: Basic Metabolic Panel; Complete Time: 15:30 rt 03/16 13:48 Order name: CBC with Diff; Complete Time: 15:30 rt 03/16 13:48 Order name: Magnesium; Complete Time: 15:30 rt 03/16 13:48 Order name: NT PRO-BNP; Complete Time: 15:30 rt 03/16 13:48 Order name: Troponin HS; Complete Time: 15:30 rt 03/16 13:48 Order name: LFT's; Complete Time: 15:30 rt 03/16 14:04 Order name: PT-INR; Complete Time: 14:58 rt 03/16 14:04 Order name: Ptt, Activated; Complete Time: 14:58 rt 03/16 14:23 Order name: CBC Smear Scan; Complete Time: 15:30 EDMS 03/16 17:50 Order name: Troponin High Sensitivity; Complete Time: 18:39 snw 03/16 13:48 Order name: XRAY Chest (1 view); Complete Time: 15:30 rt 03/16 13:48 Order name: EKG; Complete Time: 14:05 rt 03/16 16:10 Order name: Diet Heart Healthy; Complete Time: 16:10 rt 03/16 13:48 Order name: Cardiac monitoring; Complete Time: 13:49 rt 03/16 13:48 Order name: EKG - Nurse/Tech; Complete Time: 13:49 rt 03/16 13:48 Order name: IV Saline Lock; Complete Time: 14:01 rt 03/16 13:48 Order name: Labs collected and sent; Complete Time: 14:01 rt 03/16 13:48 Order name: O2 Per Protocol; Complete Time: 13:49 rt 03/16 13:48 Order name: O2 Sat Monitoring; Complete Time: 13:49 rt 03/16 14:31 Order name: Labs - recollect needed: green and lavender top please; Complete Time: 14:47em1 03/16 16:10 Order name: Misc. Order: may eat; Complete Time: 16:10 rt EC:53 Rate is 77 beats/min. Rhythm is regular, Normal Sinus Rhythm with No ectopy. QRS [place] rt is Normal. AR interval is normal. QRS interval is normal. QT interval is normal. No Q waves. Clinical impression: NSR w/ Non-specific ST/T Changes. Administered Medications: 13:54 Drug: Nitroglycerin Sublingual 0.4 mg Route: Sublingual; kc6 14:06 Drug: Nitroglycerin Sublingual 0.4 mg Route: Sublingual; kc6 14:47 Drug: Nitroglycerin Sublingual 0.4 mg Route: Sublingual; kc6 15:46 Follow up: Response: No adverse reaction; Blood pressure is unchanged kc6 16:10 Drug: Labetalol IV 10 mg Route: IV; Rate: calculated rate; Site: right antecubital; kc6 16:51 Follow up: Response: No adverse reaction; Blood pressure is lowered; IV Status: kc6 Completed infusion 16:12 Drug: Heparin (TN-Bolus No thrombolytic) - HEParin IVP 60 units/kg {Co-Signature: melinda thurston (Naya Russell RN).} Route: IVP; Site: right antecubital; 16:51 Follow up: Response: No adverse reaction [facility] 16:12 Drug: Heparin (TN Drip) - (D5W IV 500 ml, [place] [address] units) 12 units/kg/hr kc6 {Co-Signature: iw (Naya Russell RN).} Route: IV; Rate: calculated rate; Site: right antecubital; 18:10 Follow up: Response: No adverse reaction; IV Status: Infusion continued upon transfer [facility] 16:45 Drug: Labetalol IV 10 mg Route: IV; Rate: calculated rate; Site: right antecubital; kc6 18:10 Follow up: Response: No adverse reaction; Blood pressure is lowered; IV Status: kc6 Completed infusion Disposition: 16:41 Critical Care:. rt 03/17 12:03 Co-signature as Attending Physician, John Lopez MD I reviewed the patient's care rt provided by the Advanced Practice Provider and agree with the diagnosis and treatment plan. Disposition Summary: 03/16/23 16:33 Transfer Ordered Transfer Location: [facility] rt Reason: Higher level of care rt Condition: Fair rt Problem: new rt Symptoms: have improved rt Accepting Physician: Daniel(03/16/23 18:11) kc6 Diagnosis - Subsequent non-ST elevation (NSTEMI) myocardial infarction rt Forms: - Medication Reconciliation Form rt - SBAR form rt Critical care time excluding procedures: 03/16 16:41 Critical care time: Bedside Care: 30 minutes, Consultation: 10 minutes. Total time: 40 rt minutes Signatures: Dispatcher [employer] Ada Elias FNP-C HYDROELECTRIC PRODUCTION MANAGER-Keyur Velasco em1 Dinah Seo RN RN 3 Shreya Shelton RN RN kc6 John Lopez MD MD rt Naya Russell RN iw Corrections: (The following items were deleted from the chart) 18:11 16:33 Daniel renteria kc6
[2023-03-16 18:55] VITALS: TEMP 98.7
[2023-03-16 19:03] VITALS: BP 163/105; O2SAT 95
--- NOTE | 2023-03-18 12:36 | EKG ---
Test Date: 2023-03-16 Test Time: 13:55:30 Licensed Staff Mft: JENNIFER MEASUREMENT RESULTS: Intervals: Rate: 77 RI: 136 QRSD: 68 QT: 434 QTc: 491 [place]: P: 64 RI: 136 QRS: 24 T: 66 INTERPRETIVE STATEMENTS: Normal sinus rhythm Nonspecific ST abnormality Prolonged QT Abnormal ECG Compared to ECG 12/29/2022 07:14:36 ST (T wave) deviation now present Prolonged QT interval now present Electronically Signed On 03-18-23 12:33:29 CDT by Ortiz Domingo
== END 2023-03-16 18:11 | disposition short-term general hospital (02) ==
LOC: ER 13:29
DX: I22.2 Subsequent non-ST elevation (NSTEMI) myocardial infarction (principal); I21.9 Acute myocardial infarction, unspecified; I10 Essential (primary) hypertension; I48.91 Unspecified atrial fibrillation; I25.2 Old myocardial infarction; Z88.5 Allergy status to narcotic agent
CPT/HCPCS: 96365; 93005; 85025; 80048; 36415; 83735; 85610; 80076; 85730; 84484 ×2; 83880; 71045; 96375; 99285; J1644

== ENCOUNTER 2023-07-07 13:59 | Inpatient (IN) | payer OTHER ==
--- OUTSIDE RECORDS SUMMARY | 2023-07-07 14:27 | XMS REPORT | Continuity of Care Document ---
:1945 Author Organization [facility] t Address [address] [place] [address] [place] [id number] Care Team Providers Name Role Phone KETURAH OQUENDO Primary Care Physician Unavailable JULITO ROBERTS Attending Clinician Unavailable ALYSON WALL Attending Clinician Unavailable [id number] Attending Clinician Unavailable ARASH CONNELL Attending Clinician Unavailable ARASH CONNELL Attending Clinician Unavailable John JANG, Jania Ramirez Attending Clinician Unavailable Amanda Pineda MD Attending Clinician Miri Keller MD Attending Clinician Mae BENAVIDEZ, Alyson Jones Attending Clinician Aleisha Ramirez DO Attending Clinician Rafy BENAVIDEZ, Alexa Reid Attending Clinician ALEXA SAN Attending Clinician Unavailable Armando BENAVIDEZ, Julito Mobley Attending Clinician [phone] NATALI, AMANDA MOIMN Attending Clinician Unavailable RICHIE FOY Attending Clinician Unavailable Ortiz Domingo Attending Clinician Unavailable Kenny Medley Attending Clinician Unavailable LAKSHMI VELEZ Attending Clinician Unavailable MIRI KELLER Admitting Clinician Unavailable [id number] Admitting Clinician Unavailable ARASH CONNELL Admitting Clinician Unavailable Keturah Oquendo Admitting Clinician Unavailable Ortiz Domingo Admitting Clinician Unavailable Payers Payer Name Policy Type Policy Number Effective Date Expiration Date S juan AETNA MEDICARE [id number] 2021 HMO POS PPO 00:00:00 AETNA MEDICARE [id number] 2020 2024 PPO 00:00:00 00:00:00 AETM AETM [id number] Problems Condition Condition Condition Status Onset Resolution Last Treating Co mments Source Name Details Category Date Date Treatment Clinician Date RYLEY RCA RYLEY RCA Disease Active [facility] Paroxysmal Paroxysmal Disease Recurre [facility] atrial atrial nce 03-20 [facility] fibrillati fibrillati 00:00: Me dical on on 00 Center Presence Presence Disease [facility] Watchman Watchman 00:00: Medica l left left 00 Center atrial atrial appendage appendage closure closure device device NSTEMI NSTEMI Disease Recurre [facility] (non-ST (non-ST nce 03-17 [facility] elevated elevated 00:00: Medica l myocardial myocardial 00 Ce nter infarction infarction ) ) PAD PAD Disease Recurre [facility] (periphera (periphera nce 03-17 [facility] l artery l artery 00:00: Medica l disease) disease) 00 Center CAD CAD Disease Active [facility] (coronary (coronary 03-17 [facility] s artery artery 00:00: Medical disease) disease) 00 Center HTN HTN Disease Active [facility] (hypertens (hypertens 7-04 [facility] ion) ion) 00:00: Medical 00 [place] HLD HLD Disease Active [facility] (hyperlipi (hyperlipi 03-17 [facility] demia) demia) 00:00: Medical 00 [place] UNK UNK Diagnosis Active 2022-04-10 Mem oria Active 03-05 10:25:00 l 03/05/2022 00:00: Luis mckeon 00 [facility] OCCLUDED OCCLUDED Diagnosis Active 2021-12-04 Memoria RIGHT RIGHT 11-07 21:46:00 l FEMORAL FEMORAL 00:00: Obie ARTERY S/P ARTERY S/P 00 PROCED PROCED Active 11/07/2021 [facility] Post-opera Post-opera Disease Active U T tive state tive state 10-15 He alth 00:00: 00 AFIB AFIB Diagnosis Active 2021-09-29 Mem oria Active 09-27 11:55:00 l 09/27/2021 00:00: Luis mckeon 00 [facility] CHEST PAIN CHEST Diagnosis Active 2021-09-27 Memoria PAIN 09-27 19:49:00 l Active 00:00: Obie 09/27/2021 00 [facility] DISORDER DISORDER Diagnosis Active 2021-11-07 Memoria OF OF 09-24 21:47:00 l ARTERIES ARTERIES 00:00: uLis mckeon Active 00 09/24/2021 [facility] 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 [facility] [...] fibrillati fibrillati He rmann on on 10/02/2021 [facility] Embolism Embolism Problem 2021-11-13 Memoria and and 22:44:38 l 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 of of arteries arteries of the of the [facility] doral extremitie s s 11/13/2021 [facility] Atrial Atrial Problem Resolve 2022-05-26 Mem oria fibrillati fibrillati d 03:23:33 l on on Obie (disorder) (disorder) Resolved Problem 05/26/2022 [facility] [place] [place] her Neuro,[facility] Deep Deep Problem Resolve 2022-05-26 Eric oracio venous venous d 03:23:33 l 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 (disorder) (disorder) Resolved Problem 05/26/2022 [facility] [place] [place] her Neuro,[facility] Transient Transient Problem Resolve 2022-05-26 Memoria ischemic ischemic d 03:23:33 l attack attack Obie (disorder) (disorder) Resolved Problem 05/26/2022 [facility] [place] [place] [facility] Chronic Problem Active 2022-07-26 Me moria atrial atrial 00:02:46 l fibrillati fibrillati He rmann on on (disorder) (disorder) Active Problem 07/26/2022 [facility] [place] [place] her [facility] Chronic Chronic Problem Active 2022-07-26 Me moria 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:02:46 l heart heart Obie failure failure (disorder) (disorder) Active Problem 07/26/2022 [facility] [place] [place] her [facility] Congestive Congestiv Problem Active 2022-07-26 Memoria heart e heart 00:02:46 l failure failure Obie (disorder) (disorder) Active Problem 07/26/2022 controlled with medication [facility] Dyslipidem Dyslipide Problem Active 2022-07-26 Memoria ia el 00:02:46 l (disorder) (disorder) He rmann Active Problem 07/26/2022 [facility] [place] [place] her Neuro,[facility] Gastroesop Gastroeso Problem Active 2022-07-26 Memoria hageal phageal 00:02:46 l reflux reflux Obie disease disease (disorder) (disorder) Active Problem 07/26/2022 controlled with medication [facility] 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-26 Memoria - Deep of - Deep 00:02:46 l Vein Vein Morral Thrombosis Thrombosis (context-d (context-d ependent ependent category) category) Active Problem 07/26/2022 [facility] [place] [place] her [facility] 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 ) (situation ) Active Problem 07/26/2022 [facility] [place] [place] her Neuro,[facility] Hypothyroi Hypothyro Problem Active 2022-07-26 Memoria dism idism 00:02:46 l (disorder) (disorder) He rmann Active Problem 07/26/2022 [facility] [place] [place] her [facility] Long-term Long-term Problem Active 2022-07-26 Memoria current current 00:02:46 l use of use of Obie anticoagul anticoagul ant ant (situation (situation ) ) Active Problem 07/26/2022 [facility] [place] [place] her [facility] Myoclonus Myoclonus Problem Active 2022-07-26 Memoria (finding) (finding) 00:02:46 l Active Obie Problem 07/26/2022 [facility] Peripheral Periphera Problem Active 2022-07-26 Memoria nerve l nerve 00:02:46 l disease disease Morral (disorder) (disorder) Active Problem 07/26/2022 [facility] Peripheral Problem Active 2022-07-26 M emoria vascular Peripheral 00:02:46 l disease vascular Morral (disorder) disease (disorder) Active Problem 07/26/2022 [facility] [place] [place] her Neuro,[facility] Benign Benign Problem Active 2021-11-07 Mem oria essential essential 01:53:16 l hypertensi hypertensi He rmann on on (disorder) (disorder) Active Problem 11/07/2021 [facility] Chronic Chronic Problem Active 2021-11-07 Me moria congestive congestive 01:53:16 l heart heart Morral failure failure (disorder) (disorder) Active Problem 11/07/2021 [facility] Constipati Constipat Problem Active 2021-11-07 Memoria on ion 01:53:16 l (disorder) (disorder) He rmann Active Problem 11/07/2021 Medical Group 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:53:16 l lymphoma lymphoma Luis n (disorder) (disorder) Active Problem 11/07/2021 Medical Group,[facility] 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-07 Memoria bladder e bladder 01:53:16 l Active Morral Problem 11/07/2021 Medical Group Retention Problem Active 2021-11-07 Me moria of urine Retention 01:53:16 l (disorder) of urine Herm juan m (disorder) Active Problem 11/07/2021 [facility] UNSPECIFIE UNSPECIFI Diagnosis Active 2021-09-29 Memoria D ATRIAL ED ATRIAL 11:55:00 l FIBRILLATI FIBRILLATI He rmann ON ON Active [facility] DISORDER DISORDER Diagnosis Active 2021-11-07 Memoria OF OF 21:47:00 l ARTERIES ARTERIES Luis n AND AND ARTERIOLES ARTERIOLES , UNS , UNS Active [facility] DISORDER DISORDER Diagnosis Active 2021-10-21 Memoria OF OF 11:49:00 l ARTERIES ARTERIES Luis n AND AND ARTERIOLES ARTERIOLES , , UNSPECIFIE UNSPECIFIE D D Active [facility] EMBOLISM EMBOLISM Diagnosis Active 2021-12-04 Memoria AND AND 21:46:00 l THROMBOSIS THROMBOSIS He rmann OF OF ARTERIES ARTERIES OF T OF T Active [facility] EMBOLISM EMBOLISM Diagnosis Active 2021-11-11 Memoria AND AND 13:16:00 l THROMBOSIS THROMBOSIS He rmann OF OF ARTERIES ARTERIES OF THE OF THE LOWER LOWER EXTRE EXTRE Active [facility] History of Past Illness Condition Condition Condition Status Onset Resolution Last Treating Co mments Source Name Details Category Date Date Treatment Clinician Date Acute Acute Problem 2021-10-25 2021-10-25 M emoria posthemorr posthemorr 10-14 00:00:43 00:00:43 l hagic hagic 18:05: Obie anemia anemia 13 10/14/2021 [facility] Allergies, Adverse Reactions, Alerts Allergy Allergy Status Severity Reaction(s) Onset Inactive Treating Comm ents Source Name Type Date Date Clinician Rober Amaro Active GI 2021-09 " It Methodi ty to Intolerance 0-[address] adverse 00:00: hiatal [facility]osp[facility] reaction 00 hernia" l s to drug No Known DA Active [facility] Allergie 3-07 Clear s 00:00: Sampson 00 [facility] codeine DA Active [facility] HIATAL -07 Clear HERNIA 00:00: Sampson 00 [facility] NO KNOWN Allergy Active [facility] codeine codeine Active Memoria sulfate sulfate l Morral Social History Social Habit Start Date Stop Date Quantity Comments Source Gender identity [facility] Sexual orientation Method ist Hospital History [facility] History of tobacco Current smoker [facility] Alcohol intake 2023-03-30 2023-03-30 Ex-drinker [facility] 00:[facility] 00:00:00 (finding) Medical Center History [facility] 2023-03-17 2023-03-[address] [facility] Transport Med 00:00:00 00:00:[address] History [facility] 2023-03-17 2023-03-[address] [facility] Housing Unable to 00:00:00 00:00:00 Medical Center Pay History [facility] 2023-03-17 2023-03-[address] [facility] Housing Places 00:00:00 00:00:00 Medical Ce nter Lived History [facility] 2023-03-17 2023-03-[address] [facility] Housing Homeless 00:00:00 00:00:00 Medical Center Last Year Tobacco use and 2023-03-16 2023-03-[address] [facility] exposure 00:00:00 00:00:00 tobacco non-user Medical Center Social History 2021-10-03 2021-10-03 [facility] william 16:23:14 16:23:14 Sex Assigned At [address] [facility] 00:00:00 00:00:00 Medical Center Smoking Status Start Date Stop Date Source Tobacco [facility] consumption unknown Ex-smoker 2023-03-16 00:00:00 2023-03-[address] [facility] 00:00:00 Center Smokes tobacco daily 2021-06-28 00:00:00 [facility] Medications Ordered Filled Start Stop Current Ordering Indication Dosage Frequency Signature Comments Components Source Medication Medication Date Date Medication? Clinician (SIG) Name Name aspirin 81 2023-0 Yes 81mg QD Take 1 [facility] MG EC 7-09 tablet (81 [facility] tablet 14:28: mg total) Medica l 02 by mouth Center daily. DULoxetine 2023-0 Yes 60mg Q.5D Take 1 [facility] (CYMBALTA) 7-09 capsule [facility] 60 MG 14:28: (60 mg Medical capsule 02 total) by Center mouth 2 (two) times daily. levothyroxi 2023-0 Yes 100ug Take [address] [facility] ne 7-09 tablet [facility] (SYNTHROID, 14:28: (100 mcg Me dical LEVOTHROID) 02 total) by [facility] ter 100 MCG mouth tablet Every morning on an empty stomach. lisinopriL 2023-0 Yes 20mg Take 1 [facility] (PRINIVIL,Z 7-09 tablet (20 [facility] ESTRIL) 20 14:28: mg total) Me dical MG tablet 02 by mouth Center Daily (1800). potassium 2023-0 Yes 20meq Q.5D Take [address] chloride 7-09 mEq by [facility]ukes (KLOR-CON) 14:28: mouth 2 Medi lorena 20 mEq 02 (two) Center packet times daily. magnesium 2023-0 Yes 400mg Q.5D Take 1 [facility] oxide 7-09 tablet [facility] (MAG-OX) 14:28: (400 mg Medica l 400 mg 02 total) by Center (241.3 mg mouth 2 magnesium) (two) tablet times daily. ticagrelor 2023-0 Yes Q.5D Take by [facility] (BRILINTA) 7-09 mouth 2 [facility] 90 mg Tab 14:28: (two) Medical tablet 02 times Center daily. sertraline 2023-0 Yes 25mg QD Take 1 [facility] (ZOLOFT) 25 7-09 tablet (25 [facility] MG tablet 14:28: mg total) Med ical 02 by mouth Center daily. atorvastati 2023-0 Yes 80mg Take [address] [facility] n (LIPITOR) 7-09 tablet (80 [facility] 80 MG 14:28: mg total) Medical tablet 02 by mouth Center Daily (1800). ezetimibe 2023-0 Yes 20mg QD Take [address] (ZETIA) 10 7-09 tablets [facility]ukes mg tablet 14:28: (20 mg Medica l 02 total) by Center mouth daily. famotidine 0 Yes 20mg Take 1 [facility] (PEPCID) 20 03-22 tablet (20 [facility] MG tablet 14:28: mg total) Med ical 02 by mouth Center every night as needed for Heartburn. omeprazole 0 Yes 40mg QD Take 1 [facility] (PriLOSEC) 03-22 capsule [facility] 40 MG 14:28: (40 mg Medical capsule 02 total) by Center mouth daily. midodrine 0 Yes 5mg Q.[id number] Take [address] [facility] (PROAMATINE 03-22 [id number] tablet (5 [facility] ) 5 MG 14:28: 3D mg total) Medica l tablet 02 by mouth 3 Center (three) times daily. calcitonin, Yes 1{spray QD [address] salmon, 03-22 } Nasal [facility]ukes (MIACALCIN) 14:28: route Medic al 200 02 daily. Center unit/actuat ion nasal spray furosemide 2022- No 60mg Q.5D Take 1.[address] (LASIX) 40 03-22 tablets [facility] MG tablet 14:28: 00:00 (60 mg Medic al 02 :00 total) by Center mouth 2 (two) times daily. ferrous 2022-2023- No 325mg Take [address] [facility] sulfate 325 03-21 tablet [facility] (65 FE) MG 00:00: 23:59 (325 mg Med ical tablet 00 :00 total) by Center mouth every other day. furosemide 2023- No 40mg QD Take [address] [facility] [facility] (LASIX) 40 03-20- tablet (40 [facility] MG tablet 00:00: 23:59 mg total) Me dical 00 :00 by mouth Center daily. carvediloL 2023- No 6.25mg Q.5D Take [address] (COREG) 03-20 tablet [facility] 6.25 MG 00:00: 23:59 (6.25 mg Medic al tablet 00 :00 total) by Center mouth 2 (two) times daily. Lyrica 100 Yes 100 mg = 1 M emoria mg oral 05-23 cap, PO, l capsule 18:59: BID, # 60 Maribel nn 00 cap, 2 Refill(s), Pharmacy: [facility] #[id number], 167.64, cm, 05/23/22 13:34:00 CDT, Height, 74.545, kg, 05/23/22 13:34:00 CDT, Weight Lyrica 100 2022-0 Yes 100 mg = 1 M emoria mg oral 9-09 cap, PO, l capsule 18:59: BID, # 60 Maribel nn 00 cap, 2 Refill(s), Pharmacy: [facility] #[id number], 167.64, cm, 05/23/22 13:34:00 CDT, Height, 74.545, kg, 05/23/22 13:34:00 CDT, Weight Lyrica 100 2022-0 Yes 100 mg = 1 M emoria mg oral 9-09 cap, PO, l capsule 18:59: BID, # 60 Maribel nn 00 cap, 2 Refill(s), Pharmacy: [facility] #[id number], 167.64, cm, 05/23/22 13:34:00 CDT, Height, 74.545, kg, 05/23/22 13:34:00 CDT, Weight Lyrica 75 2022-0 No 75 mg = 1 Mem oria mg oral 8-02 cap, PO, l capsule 16:56: BID, # 60 Maribel nn 00 cap, 1 Refill(s), Pharmacy: [facility] #[id number], 165.1, cm, 04/10/22 8:31:00 CDT, Height, 73.239, kg, 04/10/22 8:31:00 CDT, Weight Lyrica 75 2022-0 No 75 mg = 1 Mem oria mg oral 8-02 cap, PO, l capsule 16:56: BID, # 60 Maribel nn 00 cap, 1 Refill(s), Pharmacy: [facility] #[id number], 165.1, cm, 04/10/22 8:31:00 CDT, Height, 73.239, kg, 04/10/22 8:31:00 CDT, Weight Lyrica 75 2022-0 No 75 mg = 1 Mem oria mg oral 8-02 cap, PO, l capsule 16:56: BID, # 60 Maribel nn 00 cap, 1 Refill(s), Pharmacy: [facility] #[id number], 165.1, cm, 04/10/22 8:31:00 CDT, Height, 73.239, kg, 04/10/22 8:31:00 CDT, Weight Lyrica 75 2022-0 No 75 mg = 1 Mem oria mg oral 7-29 cap, PO, l capsule 22:23: BID, X 30 Maribel nn 00 day, # 60 cap, 1 Refill(s), Pharmacy: [facility] #[id number], 165.1, cm, 04/10/22 8:31:00 CDT, Height, 73.239, kg, 04/10/22 8:31:00 CDT, Weight Lyrica 75 2022-0 No 75 mg = 1 Mem oria mg oral 7-29 cap, PO, l capsule 22:23: BID, X 30 Maribel nn 00 day, # 60 cap, 1 Refill(s), Pharmacy: [facility] #[id number], 165.1, cm, 04/10/22 8:31:00 CDT, Height, 73.239, kg, 04/10/22 8:31:00 CDT, Weight Lyrica 75 2022-0 No 75 mg = 1 Mem oria mg oral 7-29 cap, PO, l capsule 22:23: BID, X 30 Maribel nn 00 day, # 60 cap, 1 Refill(s), [id number], 165.1, cm, 04/10/22 8:31:00 CDT, Height, 73.239, kg, 04/10/22 8:31:00 CDT, Weight gabapentin 2022-0 No 200 mg = 2 M emoria 100 mg oral 7-28 cap, PO, l capsule 14:15: BID, # 120 Herm juan m 00 cap, 3 Refill(s), [id number], 165.1, cm, 04/10/22 8:31:00 CDT, Height, 73.239, kg, 04/10/22 8:31:00 CDT, Weight gabapentin 2022-0 No 200 mg = 2 M emoria 100 mg oral 7-28 cap, PO, l capsule 14:15: BID, # 120 Herm juan m 00 cap, 3 Refill(s), Pharmacy: [facility] #[id number], 165.1, cm, 04/10/22 8:31:00 CDT, Height, 73.239, kg, 04/10/22 8:31:00 CDT, Weight gabapentin No 200 mg = 2 M emoria 100 mg oral 7-28 cap, PO, l capsule 14:15: BID, # 120 Herm juan m 00 cap, 3 Refill(s), Pharmacy: [facility] #[id number], 165.1, cm, 04/10/22 8:31:00 CDT, Height, 73.239, kg, 04/10/22 8:31:00 CDT, Weight lisinopril Yes TAKE 1 Memor ia 20 mg oral 6-27 TABLET BY l tablet 16:31: MOUTH Morral 00 TWICE DAILY amLODIPine Yes TAKE 1 Memor ia 10 mg oral 6-27 TABLET BY l tablet 16:31: MOUTH Obie 00 DAILY IN THE MORNING Brilinta Yes [...] 6-27 TABLET BY l tablet 16:31: MOUTH Morral 00 TWICE DAILY amLODIPine 0 Yes TAKE 1 Memor ia 10 mg oral 6-27 TABLET BY l tablet 16:31: MOUTH Obie 00 DAILY IN THE MORNING Brilinta Yes [...] MOUTH Obie 00 DAILY IN THE MORNING Brilinta Yes [...] MOUTH Obie 00 TWICE DAILY acetaminoph Yes [id number] 1{tbl} Take 1 [facility] en-codeine 5-02 tablet by Heal th (TYLENOL/CO 00:00: mouth DEINE #3) 00 every 4 300-30 MG (four) tablet hours if needed for severe pain. naloxone 2022- No [id number] .4mg Administer [facility] (Narcan) 2 11-18-08 0.4 mL Health MG/2ML 00:00: 05:59 (0.4 mg injection 00 :00 total) into affected nostril(s) if needed for opioid reversal. May repeat every 2-3 minutes as needed until medical assistance available. naloxone 2022- No [id number] .4mg Administer UT (Narcan) 2 11-18 03-08 0.4 mL Health MG/2ML 00:00: 05:59 (0.4 mg injection 00 :00 total) into affected nostril(s) if needed for opioid reversal. May repeat every 2-3 minutes as needed until medical assistance available. naloxone 2022- No [id number] .4mg Administer UT (Narcan) 2 11-18 0.4 mL Health MG/2ML 00:00: 05:59 (0.4 mg injection 00 :00 total) into affected nostril(s) if needed for opioid reversal. May repeat every 2-3 minutes as needed until medical assistance available. naloxone 2022- No [id number] .4mg Administer UT (Narcan) 2 11-18 0.4 mL Health MG/2ML 00:00: 05:59 (0.4 mg injection 00 :00 total) into affected nostril(s) if needed for opioid reversal. May repeat every 2-3 minutes as needed until medical assistance available. traMADol 2021- No [id number] 50mg Take 1 UT (Ultram) 50 11-18 tablet (50 H ealth MG tablet 00:00: 05:59 mg total) 00 :00 by mouth every 8 (eight) hours if needed for severe pain for up to 5 days. Eliquis No Notes: Memoria 2-28 Same as: l 15:00: Eliquis Morral 00 Eliquis No Notes: Memoria 2-28 Same as: l 15:00: Eliquis Obie 00 Eliquis No Notes: Memoria 2-28 Same as: l 15:00: Eliquis Morral 00 Coreg 25 mg Yes 25 mg = 1 M emoria oral tablet 2-28 tab, PO, l 13:05: BID, # 60 Obie 00 tab, 0 Refill(s), Pharmacy: [facility] #[id number], 170.18, cm, 11/08/21 4:09:00 [employer], Height, 75.318, kg, 11/08/21 0:40:00 [employer], Weight carvedilol Yes 25 mg = 1 Me moria 25 MG Oral 2-28 tab, PO, l Tablet 13:05: BID, # 60 Luis n [Coreg] 00 tab, 0 Refill(s), Pharmacy: [facility] #[id number], 170.18, cm, 11/08/21 4:09:00 [employer], Height, 75.318, kg, 11/08/21 0:40:00 [employer], Weight Coreg 25 mg 2022-0 Yes 25 mg = 1 M emoria oral tablet 2-28 tab, PO, l 13:05: BID, # 60 Obie 00 tab, 0 Refill(s), Pharmacy: [facility] #[id number], 170.18, cm, 11/08/21 4:09:00 [employer], Height, 75.318, kg, 11/08/21 0:40:00 [employer], Weight carvedilol 2021-0 Yes 25 mg = 1 Me moria 25 MG Oral 2-28 tab, PO, l Tablet 13:05: BID, # 60 Luis n [Coreg] 00 tab, 0 Refill(s), Pharmacy: [facility] #[id number], 170.18, cm, 11/08/21 4:09:00 [employer], Height, 75.318, kg, 11/08/21 0:40:00 [employer], Weight Coreg 25 mg 2-0 Yes 25 mg = 1 M emoria oral tablet 2-28 tab, PO, l 13:05: BID, # 60 Morral 00 tab, 0 Refill(s), Pharmacy: [facility] #[id number], 170.18, cm, 11/08/21 4:09:00 [employer], Height, 75.318, kg, 11/08/21 0:40:00 [employer], Weight carvedilol 2-0 Yes 25 mg = 1 Me moria 25 MG Oral 2-28 tab, PO, l Tablet 13:05: BID, # 60 Luis n [Coreg] 00 tab, 0 Refill(s), Pharmacy: [facility] #[id number], 170.18, cm, 11/08/21 4:09:00 [employer], Height, 75.318, kg, 11/08/21 0:40:00 [employer], Weight atorvastati 2022-0 Yes 40 mg = 1 M emoria n 40 mg 2-28 tab, PO, l oral tablet 13:04: Bedtime, # Morral 00 30 tab, 0 Refill(s), Pharmacy: [facility] #[id number], 170.18, cm, 11/08/21 4:09:00 [employer], Height, 75.318, kg, 11/08/21 0:40:00 [employer], Weight doxycycline 2021-0 Yes 100 mg = 2 Memoria hyclate 50 2-28 cap, PO, l MG Oral 13:04: [id number], X Herm juan m Capsule 00 7 day, # 28 cap, 0 Refill(s), [id number], 170.18, cm, 11/08/21 4:09:00 [employer], Height, 75.318, kg, 11/08/21 0:40:00 [employer], Weight atorvastati 2021-0 Yes 40 mg = 1 M emoria n 40 mg 2-28 tab, PO, l oral tablet 13:04: Bedtime, # Obie 00 30 tab, 0 Refill(s), [id number], 170.18, cm, 11/08/21 4:09:00 [employer], Height, 75.318, kg, 11/08/21 0:40:00 [employer], Weight doxycycline 2021-0 Yes 100 mg = 2 Memoria hyclate 50 2-28 cap, PO, l MG Oral 13:04: [id number], X Herm juan m Capsule 00 7 day, # 28 cap, 0 Refill(s), [id number], 170.18, cm, 11/08/21 4:09:00 [employer], Height, 75.318, kg, 11/08/21 0:40:00 [employer], Weight atorvastati 2021-0 Yes 40 mg = 1 M emoria n 40 mg 2-28 tab, PO, l oral tablet 13:04: Bedtime, # Obie 00 30 tab, 0 Refill(s), [facility] [id number], 170.18, cm, 11/08/21 4:09:00 [employer], Height, 75.318, kg, 11/08/21 0:40:00 [employer], Weight doxycycline 2021-0 Yes 100 mg = 2 Memoria hyclate 50 2-28 cap, PO, l MG Oral 13:04: [id number], X Herm juan m Capsule 00 7 day, # 28 cap, 0 Refill(s), Pharmacy: [facility] #[id number], 170.18, cm, 11/08/21 4:09:00 [employer], Height, 75.318, kg, 11/08/21 0:40:00 [employer], Weight Magnesium 2021-0 No Notes: Memori a Sulfate 2-28 WASTE: F/P l 13:01: - Sink; E Morral 00 - Municipal Trash Bin Magnesium 2021-0 No Notes: Memori a Sulfate 2-28 WASTE: F/P l 13:01: - Sink; E Obie 00 - Municipal Trash Bin Magnesium 2021-0 No Notes: Memori a Sulfate 2-28 WASTE: F/P l 13:01: - Sink; E Obie 00 - Municipal Trash Bin Potassium 2021-0 No Notes: Memori a Chloride 2-27 (Same as: l 18:53: K-Dur 20) Morral 00 "Do Not Crush" Give with food and full glass of water For patients unable to swallow tablet, dissolve in one half glass of water. Allow about 2 minutes for the tablets to disintegra te. Stir before giving to prepare slurry and administer . Please exclude Patient s with feeding tube less than 14 Indonesian (Dobhoff, J-tube etc) and pediatric and patients. Potassium 2021-0 No Notes: Memori a Chloride 2-27 (Same [...] s with feeding tube less than 14 Indonesian (Dobhoff, J-tube etc) and pediatric and patients. Potassium 2021-0 No Notes: Memori a Chloride 2-27 (Same as: l 18:53: K-Dur 20) Morral 00 "Do Not Crush" Give with food and full glass of water For patients unable to swallow tablet, dissolve in one half glass of water. Allow about 2 minutes for the tablets to disintegra te. Stir before giving to prepare slurry and administer . Please exclude Patient s with feeding tube less than 14 Indonesian (Dobhoff, J-tube etc) and pediatric and patients. Protonix 2021-0 No Notes: Memoria 2-27 Tablet l 13:30: should not Morral 00 be chewed or crushed. (Same as: Protonix) Protonix No Notes: Memoria 2-27 Tablet l 13:30: should not Obie 00 be chewed or crushed. (Same as: Protonix) Protonix 0 No Notes: Memoria 2-27 Tablet l 13:30: should not Morral 00 be chewed or crushed. (Same as: Protonix) tramadol No Notes: Not Mem oria hydrochlori 2-27 to exceed l de 50 MG 06:14: 400mg/day. Her song Oral Tablet 00 (Same As: Ultram) tramadol No Notes: Not Mem oria hydrochlori 2-27 to exceed l de 50 MG 06:14: 400mg/day. Her sogn Oral Tablet 00 (Same As: Ultram) tramadol No Notes: Not Mem oria hydrochlori 2-27 to exceed l de 50 MG 06:14: 400mg/day. Her song Oral Tablet 00 (Same As: Ultram) Tramadol 0 No 25 mg, Memoria 2-27 Route: PO, l 06:02: Drug form: Obie 00 TAB, Q6H, Dosing Weight 75.318, kg, PRN Pain Score 4-6, Start date: 11/10/21 0:02:00 [employer], Duration: 30 day, Stop date: 12/10/21 0:01:00 CDT Tramadol 2021-0 No 25 mg, Memoria 2-27 Route: PO, l 06:02: Drug form: Morral 00 TAB, Q6H, Dosing Weight 75.318, kg, PRN Pain Score 4-6, Start date: 11/10/21 0:02:00 [employer], Duration: 30 day, Stop date: 12/10/21 0:01:00 CDT Tramadol 2021-0 No 25 mg, Memoria 2-27 Route: PO, l 06:02: Drug form: Obie 00 TAB, Q6H, Dosing Weight 75.318, kg, PRN Pain Score 4-6, Start date: 11/10/21 0:02:00 [employer], Duration: 30 day, Stop date: 12/10/21 0:01:00 CDT Acetaminoph 2021-0 No Notes: Eric oracio en 325 MG / 2-27 (Same as: l Hydrocodone 06:01: [place] Maribel nn Bitartrate 00 325/5) Do 5 MG Oral not exceed Tablet 4gm/day of [[place] acetaminop 5/325] hen. Acetaminoph No Notes: Eric oracio en 325 MG / 2-27 (Same as: l Hydrocodone 06:01: [place] Maribel nn Bitartrate 00 325/5) Do 5 MG Oral not exceed Tablet 4gm/day of [[place] acetaminop 5/325] hen. Acetaminoph No Notes: Eric oracio en 325 MG / 2-27 (Same as: l Hydrocodone 06:01: [place] Maribel nn Bitartrate 00 325/5) Do 5 MG Oral not exceed Tablet 4gm/day of [[place] acetaminop 5/325] hen. Rocephin + No Notes: Memor ia Sodium 2-26 (Same As: l Chloride 17:00: Rocephin). Her song 0.9% IV 100 00 Use with mL 100 mL NS and infuse over 30 min MEDICATION WASTE Product Size: 1000 mg Product Wasted: ___ mg doxycycline 0 No 100 mg, 2 M emoria hyclate 2-26 cap, l 17:00: Route: PO, Obie 00 Drug form: CAP, [id number], Dosing Weight 75.318, kg, Start date: 11/09/21 11:00:00 [employer], Duration: 5 day, Stop date: 11/13/21 23:00:00 [employer], ABX Indication : Skin/Soft Tissue Infection, 0 Rocephin + No Notes: Memor ia Sodium 2-26 (Same As: l Chloride 17:00: Rocephin). Her song 0.9% IV 100 00 Use with mL 100 mL NS and infuse over 30 min MEDICATION WASTE Product Size: 1000 mg Product Wasted: ___ mg doxycycline 2021-0 No 100 mg, 2 M emoria hyclate 2-26 cap, l 17:00: Route: PO, Morral 00 Drug form: CAP, [id number], Dosing Weight 75.318, kg, Start date: 11/09/21 11:00:00 [employer], Duration: 5 day, Stop date: 11/13/21 23:00:00 [employer], ABX Indication : Skin/Soft Tissue Infection, 0 Rocephin + No Notes: Memor ia Sodium - (Same As: l Chloride 17:00: Rocephin). Her song 0.9% IV 100 00 Use with mL 100 mL NS and infuse over 30 min MEDICATION WASTE Product Size: 1000 mg Product Wasted: ___ mg doxycycline No 100 mg, 2 M emoria hyclate - cap, l 17:00: Route: PO, Morral 00 Drug form: CAP, [id number], Dosing Weight 75.318, kg, Start date: 11/09/21 11:00:00 [employer], Duration: 5 day, Stop date: 11/13/21 23:00:00 [employer], ABX Indication : Skin/Soft Tissue Infection, 0 Cymbalta No Notes: Memoria - (Same as: l 15:00: Cymbalta) Morral 00 (Do Not Crush) Dulera 200 No 2 puff, Eric oracio mcg-5 11-09 Route: l mcg/inh 15:00: INHALER, Luis n inhalation 00 Drug Form: aerosol AERO, Dosing Weight 75.318, kg, Q12H, Start date: 11/09/21 9:00:00 [employer], Duration: 30 day, Stop date: 12/08/21 21:00:00 CDT RN-Pls No RN-Pls Memor ia bring pt's - bring pt's l DULERA inh 15:00: DULERA inh H ermann to pharmacy 00 to for pharmacy label for label, Attn:SUHAIL, Drug form: MISC, Route: MISC, QSHIFT, 11/09/21 9:00:00 [employer], Duration: 30 day, Stop date: 12/09/21 8:00:00 CDT, 0 Cymbalta No Notes: Memoria 2-26 (Same as: l 15:00: Cymbalta) Obie 00 (Do Not Crush) Dulera 200 No 2 puff, Eric oracio mcg-5 11-09 Route: l mcg/inh 15:00: INHALER, Luis n inhalation 00 Drug Form: aerosol AERO, Dosing Weight 75.318, kg, Q12H, Start date: 11/09/21 9:00:00 [employer], Duration: 30 day, Stop date: 12/08/21 21:00:00 CDT RN-Pls No RN-Pls Memor ia bring pt's - bring pt's l DULERA inh 15:00: DULERA inh H ermann to pharmacy 00 to for pharmacy label for label, Attn:SUHAIL, Drug form: MISC, Route: MISC, QSHIFT, 11/09/21 9:00:00 [employer], Duration: 30 day, Stop date: 12/09/21 8:00:00 CDT, 0 Cymbalta No Notes: Memoria - (Same as: l 15:00: Cymbalta) Morral (Do Not Crush) Dulera 200 No 2 puff, Eric oracio mcg-5 11-09 Route: l mcg/inh 15:00: INHALER, Luis n inhalation 00 Drug Form: aerosol AERO, Dosing Weight 75.318, kg, Q12H, Start date: 11/09/21 9:00:00 [employer], Duration: 30 day, Stop date: 12/08/21 21:00:00 CDT RN-Pls No RN-Pls Memor ia bring pt's - bring pt's l DULERA inh 15:00: DULERA inh H ermann to pharmacy 00 to for pharmacy label for label, Attn:SUHAIL, Drug form: MISC, Route: MISC, QSHIFT, 11/09/21 9:00:00 [employer], Duration: 30 day, Stop date: 12/09/21 8:00:00 CDT, 0 Diltiazem No Notes: Memori a 2-26 (Same as: l 14:00: Cardizem) Obie 00 Before meals Diltiazem No Notes: Memori a 2-26 (Same as: l 14:00: Cardizem) Morral 00 Before meals Diltiazem No Notes: Memori a 2-26 (Same as: l 14:00: Cardizem) Obie Before meals Guaifenesin No Notes: Eric oracio 20 MG/ML 2- (Same as: l Oral 13:33: Robitussin Morral Solution ) Hydralazine No Notes: Eric oracio 2-26 (Same as: l 13:33: Apresoline Obie ) Melatonin 3 No 3 mg, 1 Mem oria MG Extended 2- tab, l Release 13:33: Route: PO, Herm juan m Tablet 00 Dosing Weight 75.318, kg, Bedtime, PRN Insomnia, Start date: 11/09/21 7:33:00 [employer], Duration: 30 day, Stop date: 12/09/21 7:32:00 CDT Miralax No Notes: Memoria 2-26 Dissolve l 13:33: in 8 oz of Obie water or juice. (Same as: Miralax) Tums No Notes: Memoria 2-26 (Same As: l 13:33: Tums) Morral 00 Calcium Carbonate 500 mg = 200 mg elemental calcium Dose = mg calcium carbonate ( mg elemental calcium) Zofran No Notes: Memoria 2-26 (Same as: l 13:33: Zofran) Morral MEDICATION WASTE Product Size: 4 mg Product Wasted: ___ mg Zyrtec No Notes: Memoria 2-26 (Same As: l 13:33: Zyrtec) Obie 00 Ventolin No Notes: Memoria HFA 90 11-09 Albuterol l mcg/inh 13:33: 90 Morral inhalation 00 microgram/ aerosol inh 8gm with HFA WASTE: adapter Aerosol - Return to Pharmacy Same as: Ventolin, Proventil phenol No Notes: Memoria - WASTE: F/P l 13:33: - Black; E Mor[place] 00 - Municipal Trash Bin Artificial No 1 drp, Memor ia Tears - Route: l 13:33: Each Morral 00 Affected Eye, QID, Drug form: SOLN, PRN Dry Eyes, Start date: 11/09/21 7:33:00 [employer], Duration: 30 day, Stop date: 12/09/21 7:32:00 CDT, 0 Dulcolax No Notes: Memoria Laxative 2- (Same As: l 13:33: Dulcolax, Obie 00 Correctol) (Do Not Crush) "Do Not Crush" Guaifenesin No Notes: Eric oracio 20 MG/ML - (Same as: l Oral 13:33: Robitussin Morral Solution ) Hydralazine No Notes: Eric oracio 2- (Same as: l 13:33: Apresoline Morral ) Melatonin 3 No 3 mg, 1 Mem oria MG Extended 2- tab, l Release 13:33: Route: PO, Herm juan m Tablet 00 Dosing Weight 75.318, kg, Bedtime, PRN Insomnia, Start date: 11/09/21 7:33:00 [employer], Duration: 30 day, Stop date: 12/09/21 7:32:00 CDT Miralax No Notes: Memoria 2-26 Dissolve l 13:33: in 8 oz of Obie water or juice. (Same as: Miralax) Tums No Notes: Memoria 2-26 (Same As: l 13:33: Tums) Morral Calcium Carbonate 500 mg = 200 mg elemental calcium Dose = mg calcium carbonate ( mg elemental calcium) Zofran No Notes: Memoria 2-26 (Same as: l 13:33: Zofran) Obie MEDICATION WASTE Product Size: 4 mg Product Wasted: ___ mg Zyrtec No Notes: Memoria 2-26 (Same As: l 13:33: Zyrtec) Morral 00 Ventolin No Notes: Memoria HFA 90 2- Albuterol l mcg/inh 13:33: 90 Morral inhalation 00 microgram/ aerosol inh 8gm with HFA WASTE: adapter Aerosol - Return to Pharmacy Same as: Gayatri Russ phenol No Notes: Memoria - WASTE: F/P l 13:33: - Black; E [place] 00 - Municipal Trash Bin Artificial No 1 drp, Memor ia Tears 11-09 Route: l 13:33: Each Obie 00 Affected Eye, QID, Drug form: SOLN, PRN Dry Eyes, Start date: 11/09/21 7:33:00 [employer], Duration: 30 day, Stop date: 12/09/21 7:32:00 CDT, 0 Dulcolax No Notes: Memoria Laxative - (Same As: l 13:33: Dulcolax, Obie 00 Correctol) (Do Not Crush) "Do Not Crush" Guaifenesin No Notes: Eric oracio 20 MG/ML - (Same as: l Oral 13:33: Robitussin Morral Solution ) Hydralazine No Notes: Eric oracio - (Same as: l 13:33: Apresoline Morral ) Melatonin 3 No 3 mg, 1 Mem oria MG Extended 2- tab, l Release 13:33: Route: PO, Herm juan m Tablet 00 Dosing Weight 75.318, kg, Bedtime, PRN Insomnia, Start date: 11/09/21 7:33:00 [employer], Duration: 30 day, Stop date: 12/09/21 7:32:00 [...] 2-26 (Same as: l 13:33: Zofran) Obie MEDICATION WASTE Product Size: 4 mg Product Wasted: ___ mg Zyrtec No Notes: Memoria 2- (Same As: l 13:33: Zyrtec) Ventolin No Notes: Memoria HFA 90 11-09 Albuterol l mcg/inh 13:33: 90 [place]ral inhalation 00 microgram/ aerosol inh 8gm with HFA WASTE: adapter Aerosol - Return to Pharmacy Same as: Ventolin, Proventil phenol No Notes: Memoria 11-09 WASTE: F/P l 13:33: - Black; E [place]ral 00 - Municipal Trash Bin Artificial No 1 drp, Memor ia Tears 11-09 Route: l 13:33: Each Affected Eye, QID, Drug form: SOLN, PRN Dry Eyes, Start date: 11/09/21 7:33:00 [employer], Duration: 30 day, Stop date: 12/09/21 7:32:00 CDT, 0 Dulcolax No Notes: Memoria Laxative - (Same As: l 13:33: Dulcolax, Correctol) (Do [...] oracio 2-25 (Same as: l 15:34: Apresoline Morral ) Push over 5 minutes Hydralazine No Notes: Eric oracio 2-25 (Same as: l 15:34: Apresoline Obie ) Push over 5 minutes Hydralazine No Notes: Eric oracio 2-25 (Same as: l 15:34: Apresoline Morral ) Push over 5 minutes esomeprazol Yes [...] 2-25 cap, PO, l Enteric 15:33: Daily Morral Coated 00 Capsule Trazodone Yes 100 mg [...] 2-25 tab, PO, l tablet 15:33: Bedtime Obie 00 Dulera 200 Yes 2 puff, Eric oracio mcg-5 2-25 INHALER, l mcg/inh 15:33: Q12H Morral inhalation 00 aerosol Esomeprazol Yes 40 mg = 1 M emoria e 40 MG 2-25 cap, PO, l Enteric 15:33: Daily Obie Coated 00 Capsule Trazodone Yes 100 mg [...] 2-25 tab, PO, l tablet 15:33: Bedtime Obie 00 Dulera 200 Yes 2 puff, Eric oracio mcg-5 2-25 INHALER, l mcg/inh 15:33: Q12H Obie inhalation aerosol Esomeprazol Yes 40 mg = 1 M emoria e 40 MG 2-25 cap, PO, l Enteric 15:33: Daily Obie Coated 00 Capsule Trazodone Yes 100 mg = 1 Me moria Hydrochlori 2-25 tab, PO, l de 100 MG 15:33: Bedtime Maribel nn Oral Tablet 00 Alprazolam Yes 0.25 mg = Me moria 0.25 MG 2-25 1 tab, PO, l Oral Tablet 15:32: QPM Luis n [Xanax] Xanax 0.25 Yes 0.25 mg = Me moria mg oral 2-25 1 tab, PO, l tablet 15:32: QPM Obie 00 diltiazem No 60 mg = 1 Mem oria 60 mg oral 2-25 tab, PO, l tablet 15:32: Q8H Obie 00 Alprazolam Yes 0.25 mg = Me moria 0.25 MG 2-25 1 tab, PO, l Oral Tablet 15:32: QPM Luis n [Xanax] 00 Xanax 0.25 Yes 0.25 mg = Me moria mg oral 2-25 1 tab, PO, l tablet 15:32: QPM diltiazem No 60 mg = 1 Mem oria 60 mg oral 2-25 tab, PO, l tablet 15:32: Q8H Alprazolam Yes 0.25 mg = Me moria 0.25 MG 2-25 1 tab, PO, l Oral Tablet 15:32: QPM Luis n [Xanax] 00 Xanax 0.25 Yes 0.25 mg = Me moria mg oral 2-25 1 tab, PO, l tablet 15:32: QPM diltiazem No 60 mg = 1 Mem oria 60 mg oral 2-25 tab, PO, l tablet 15:32: Q8H levothyroxi Yes 100 Memori a ne 100 mcg 2-25 microgram l (0.1 mg) 15:31: = 1 tab, Maribel nn oral tablet 00 PO, Daily furosemide Yes 40 mg = 1 Me moria 40 mg oral 2-25 tab, PO, l tablet 15:31: Daily levothyroxi Yes 100 Memori a ne 100 mcg 2-25 microgram l (0.1 mg) 15:31: = 1 tab, Maribel nn oral tablet 00 PO, Daily furosemide Yes 40 mg = 1 Me moria 40 mg oral 2-25 tab, PO, l tablet 15:31: Daily Potassium Yes 10 mEq = 1 Me moria Chloride 2-25 tab, PO, l (Eqv-K-Tab) 15:31: Daily Maribel nn 10 mEq oral 00 tablet, extended release Furosemide Yes 40 mg = 1 Me moria 40 MG Oral 2-25 tab, PO, l Tablet 15:31: Daily carvedilol No 12.5 mg = Me moria 12.5 mg 2-25 1 tab, PO, l oral tablet 15:31: Q12H Luis n 00 Digoxin No 125 Memoria 0.125 MG 2-25 microgram l Oral Tablet 15:31: = 1 tab, He rmann 00 PO, Daily, 0 Refill(s) Potassium 2022-0 Yes 10 mEq = 1 Me moria Chloride 2-25 tab, PO, l (Eqv-K-Tab) 15:31: Daily Maribel nn 10 mEq oral 00 tablet, extended release Furosemide Yes 40 mg = 1 Me moria 40 MG Oral 2-25 tab, PO, l Tablet 15:31: Daily Obie 00 carvedilol No 12.5 mg = Me [...] tab, PO, l tablet 15:31: Daily Obie 00 Potassium Yes 10 mEq = 1 Me moria Chloride 2-25 tab, PO, l (Eqv-K-Tab) 15:31: Daily Maribel nn 10 mEq oral 00 tablet, extended release Furosemide Yes 40 mg = 1 Me moria 40 MG Oral 2-25 tab, PO, l Tablet 15:31: Daily Obie 00 carvedilol No 12.5 mg = Me [...] 2-25 cap, PO, l delayed 15:30: Daily Morral release 00 capsule Eliquis 5 Yes 5 mg = 1 Eric oracio mg oral 2-25 tab, PO, l tablet 15:30: Q12H Morral 00 Aspirin 81 Yes 81 mg = 1 Me moria MG Enteric 2-25 tab, PO, l Coated 15:30: Daily Morral Tablet duloxetine Yes 60 mg = 1 Me moria 60 MG 2-25 cap, PO, l Enteric 15:30: Daily Obie Coated Capsule [Cymbalta] apixaban 5 Yes 5 mg = 1 Mem oria MG Oral 2-25 tab, PO, l Tablet 15:30: Q12H [place]ral [Eliquis] aspirin 81 Yes 81 mg = 1 Me moria mg tablet, 2-25 tab, PO, l enteric 15:30: Daily Obie coated Cymbalta 60 Yes 60 mg = 1 M emoria mg oral 2-25 cap, PO, l delayed 15:30: Daily Obie release 00 capsule Eliquis 5 Yes 5 mg = 1 Eric oracio mg oral 2-25 tab, PO, l tablet 15:30: Q12H Morral Aspirin 81 Yes 81 mg = 1 Me moria MG Enteric 2-25 tab, PO, l Coated 15:30: Daily Obie Tablet duloxetine Yes 60 mg = 1 Me moria 60 MG 2-25 cap, PO, l Enteric 15:30: Daily Obie Coated Capsule [Cymbalta] apixaban 5 Yes 5 mg = 1 Mem oria MG Oral 2-25 tab, PO, l Tablet 15:30: Q12H Obie [Eliquis] aspirin 81 Yes 81 mg = 1 Me moria mg tablet, 2-25 tab, PO, l enteric 15:30: Daily Obie coated Cymbalta 60 Yes 60 mg = 1 M emoria mg oral 2-25 cap, PO, l delayed 15:30: Daily Obie release 00 capsule Eliquis 5 Yes 5 mg = 1 Eric oracio mg oral 2-25 tab, PO, l tablet 15:30: Q12H Obie Aspirin 81 Yes 81 mg = 1 Me moria MG Enteric 2-25 tab, PO, l Coated 15:30: Daily Morral Tablet 00 duloxetine Yes 60 mg = 1 Me moria 60 MG 2-25 cap, PO, l Enteric 15:30: Daily Morral Coated 00 Capsule [Cymbalta] apixaban 5 Yes 5 mg = 1 Mem oria MG Oral 2-25 tab, PO, l Tablet 15:30: Q12H Morral [Eliquis] 00 Furosemide No Notes: Memor ia 40 MG Oral 2-25 (Same as: l Tablet 15:00: Lasix) May Maribel nn [Lasix] 00 cause GI upset. Give with food or milk. carvedilol No Notes: Memor ia 2-25 Give with l 15:00: food. Morral 00 (Same As: Coreg) Digoxin No Notes: [...] 2-25 not crush l 15:00: or chew. Morral 00 (Same As: Ecotrin) Furosemide No Notes: [...] 0.9% 2-25 (Same as: l 15:00: BD Morral 00 Posiflush) Aspirin No Notes: Do Memor ia 2-25 not crush l 15:00: or chew. Obie 00 (Same As: Ecotrin) Furosemide No Notes: Memor ia 40 MG Oral 2-25 (Same as: l Tablet 15:00: Lasix) May Maribel nn [Lasix] 00 cause GI upset. Give with food or milk. carvedilol No Notes: Memor ia 2-25 Give with l 15:00: food. Morral 00 (Same As: Coreg) Digoxin No Notes: Memoria 0.125 MG 2-25 Take on an l Oral Tablet 15:00: Empty Maribel nn 00 Stomach (Same as: Lanoxin) Famotidine No Notes: Memor ia 2-25 (Same as: l 15:00: Pepcid) Morral 00 Can be dilute in 5-10cc NS IVP: Slow IV push over at least 2 minutes. Saline No Notes: Memoria Flush 0.9% 2-25 (Same as: l 15:00: BD Obie 00 Posiflush) Aspirin No Notes: Do Memor ia 2-25 not crush l 15:00: or chew. Obie 00 (Same As: Ecotrin) 200 ACTUAT No Notes: Memor ia Albuterol 2-25 Albuterol l 0.09 14:00: 90 Morral MG/ACTUAT 00 microgram/ Metered inh 8gm Dose HFA WASTE: Inhaler Aerosol - [Proventil] Return to Pharmacy Same as: Ventolin, Proventil Albuterol No Notes: SEE Me moria 2-25 RT l 14:00: DOCUMENTAT Obie 00 ION (Same as: Proventil) 200 ACTUAT No Notes: Memor ia Albuterol 2-25 Albuterol l 0.09 14:00: 90 Morral MG/ACTUAT 00 microgram/ Metered inh 8gm Dose [...] Me moria 2-25 RT l 14:00: DOCUMENTAT [place] 00 ION (Same as: Proventil) Thyroxine No Notes: Memori a 2-25 Take 1 l 12:30: hour Morral 00 before or 2 hours after meal; Enteral feeds may interefere with the absorption of this medication . (Same as:Levothr oid, Synthroid) Thyroxine No Notes: Memori a 2-25 Take 1 l 12:30: hour Morral 00 before or 2 hours after meal; Enteral feeds may interefere with the absorption of this medication . (Same as:Levothr oid, Synthroid) Thyroxine No Notes: Memori a 2-25 Take 1 l 12:30: hour Morral 00 before or 2 hours after meal; [...] 75.318, kg, RQ6H, Start date: 11/08/21 2:00:00 [employer], Duration: 30 day, Stop date: 12/07/21 20:00:00 CDT albuterol 2021-0 No 2 puff, Memor ia 90 mcg/inh 2-25 Route: l inhalation 08:00: INHALER, Her song aerosol 00 Dosing Weight 75.318, kg, RQ6H, Start date: 11/08/21 2:00:00 [employer], Duration: 30 day, Stop date: 12/07/21 20:00:00 CDT albuterol 2021- No 2 puff, Memor ia 90 mcg/inh 2-25 Route: l inhalation 08:00: INHALER, Her song aerosol 00 Dosing Weight 75.318, kg, RQ6H, Start date: 11/08/21 2:00:00 [employer], Duration: 30 day, Stop date: 12/07/21 20:00:00 CDT Heparin 80 No Route: Memor ia unit/kg 2-25 IVP, PRN, l Bolus 07:53: 5,400 Obie (Heparin 00 unit, 5.4 Dosing mL, Drug Weight) form: INJ, PRN Heparin Protocol, Start date: 11/08/21 1:53:00 [employer], Stop date: 12/08/21 2:52:00 CDT, 30 day, 0 Heparin 40 No Route: Memor ia unit/kg 2-25 IVP, PRN, l Bolus 07:53: 2,700 Obie (Heparin 00 unit, 2.7 Dosing mL, Drug Weight) form: INJ, PRN Heparin Protocol, Start date: 11/08/21 1:53:00 [employer], Stop date: 12/08/21 2:52:00 CDT, 30 day, 0 heparin No Notes: Memoria additive 2-25 Total l 25,000 unit 07:53: Concentrat Morral [18 00 ion = 50 unit/kg/hr] unit/ ml + Premix Total Diluent volume = Sodium 500 ml Chloride Send Med 0.45% 500 Request 2 mL hours prior to next bag Heparin 80 No Route: Memor ia unit/kg 2-25 IVP, PRN, l Bolus 07:53: 5,400 Morral (Heparin 00 unit, 5.4 Dosing mL, Drug Weight) form: INJ, PRN Heparin Protocol, Start date: 11/08/21 1:53:00 [employer], Stop date: 12/08/21 2:52:00 CDT, 30 day, 0 Heparin 40 No Route: Memor ia unit/kg 2-25 IVP, PRN, l Bolus 07:53: 2,700 Morral (Heparin 00 unit, 2.7 Dosing mL, Drug Weight) form: INJ, PRN Heparin Protocol, Start date: 11/08/21 1:53:00 [employer], Stop date: 12/08/21 2:52:00 CDT, 30 day, [...] PRN Heparin Protocol, Start date: 11/08/21 1:53:00 [employer], Stop date: 12/08/21 2:52:00 CDT, 30 day, 0 Heparin 40 No Route: Memor ia unit/kg 2-25 IVP, PRN, l Bolus 07:53: 2,700 Obie (Heparin 00 unit, 2.7 Dosing mL, Drug Weight) form: INJ, PRN Heparin Protocol, Start date: 11/08/21 1:53:00 [employer], Stop date: 12/08/21 2:52:00 CDT, 30 day, [...] 07:48: Senokot-S) Obie sennosides, 00 Equiv. to MCFP 8.6 MG Bettie-Colac Oral Tablet e. Saline [...] WASTE: F/P l 07:48: - Sink; E Morral 00 - Municipal Trash Bin Nystatin No Notes: Memoria 100 UNT/MG 2-25 (Same l Topical 07:48: as:Mycosta Herm juan m Powder 00 tin, Nilstat) For external use only. Bisacodyl No Notes: Memori a 2-25 (Same As: l 07:48: Dulcolax, Morral 00 Bisco-Lax) Docusate No Notes: Memoria Sodium 50 2-25 (Same as l MG / 07:48: Senokot-S) Obie sennosides, 00 Equiv. to MCFP 8.6 MG Bettie-Colac Oral Tablet e. Saline [...] phosphate 2-25 Infuse l 07:48: over 4 Morral 00 hour. Do not infuse phosphorou s concurrent ly in the same line as TPN or IVF that contains calcium. For double lumen central lines, phosphorou s may be infused in a separate lumen from TPN. potassium No Notes: Memori a phosphate 2-25 (Same as: l 07:48: K [place]ral 00 Phosphate. ) Do not infuse phosphorou [...] E Obie 00 - Municipal Trash Bin Nystatin No Notes: Memoria 100 UNT/MG 2-25 (Same l Topical 07:48: as:Mycosta Herm juan m Powder 00 tin, Nilstat) For external use only. Bisacodyl No Notes: Memori a 2-25 (Same As: l 07:48: Dulcolax, [place] 00 Bisco-Lax) Docusate No Notes: Memoria Sodium 50 2-25 (Same as l MG / 07:48: Senokot-S) [place] sennosides, 00 Equiv. to MCFP 8.6 MG Bettie-Colac Oral Tablet e. Saline No Notes: Memoria Flush 0.9% 2-25 (Same as: l 07:48: BD Obie Posiflush) Potassium 0 No Notes: Memori a Chloride 2-25 (Same as: l 07:48: KCL) 10 [place] 00 mEq/100ml product recommende d for peripheral line administra tion. Infuse no faster than 10 mEq/hr if given peripheral ly. sodium 0 No Notes: Memoria phosphate 2-25 Infuse l [...] mEq potassium Infuse over 4 hours Magnesium 0 No Notes: Memori a Sulfate 2-25 WASTE: F/P l 07:48: - Sink; E [place] 00 - [employer] Trash [facility] heparin 2021-0 No 500 mL, Memoria 2-25 Rate: 26 l 07:21: ml/hr, [place] 00 Infuse over: 19.2 hr, Route: IV, Dosing Weight 75.318 kg, Total Volume: 500, Start date: 11/08/21 1:21:00 [employer], Duration: 30 day, Stop date: 12/08/21 1:20:00 CDT, BSA: 1.9 m2 heparin 2021-0 No 500 mL, Memoria 2-25 Rate: 26 l 07:21: ml/hr, [place] Infuse over: 19.2 hr, Route: IV, Dosing Weight 75.318 kg, Total Volume: 500, Start date: 11/08/21 1:21:00 [employer], Duration: 30 day, Stop date: 12/08/21 1:20:00 CDT, BSA: 1.9 m2 heparin 2021-0 No 500 mL, Memoria 2-25 Rate: 26 l 07:21: ml/hr, [place] 00 Infuse over: 19.2 hr, Route: IV, Dosing Weight 75.318 kg, Total Volume: 500, Start date: 11/08/21 1:21:00 [employer], Duration: 30 day, Stop date: 12/08/21 1:20:00 CDT, BSA: 1.9 m2 Acetaminoph Yes 1 tab, PO, Memoria en 325 MG / 2-08 Q6H, PRN l Hydrocodone 20:36: Pain Score [place] Bitartrate 00 1-3, X 7 5 MG Oral day, # 20 Tablet tab, 0 [[place] Refill(s), 5/325] Pharmacy: [facility] #[id number], 170.1, cm, 10/12/21 5:21:00 [employer], Height, 80.005, kg, 10/11/21 17:51:00 [employer], Weight Acetaminoph Yes 1 tab, PO, Memoria en 325 MG / 2-08 Q6H, PRN l Hydrocodone 20:36: Pain Score Morral Bitartrate 00 1-3, X 7 5 MG Oral day, # 20 Tablet tab, 0 [[place] Refill(s), 5/325] Pharmacy: [facility] #[id number], 170.1, cm, 10/12/21 5:21:00 [employer], Height, 80.005, kg, 10/11/21 17:51:00 [employer], Weight Acetaminoph Yes 1 tab, PO, Memoria en 325 MG / 2-08 Q6H, PRN l Hydrocodone 20:36: Pain Score Obie Bitartrate 00 1-3, X 7 5 MG Oral day, # 20 Tablet tab, 0 [[place] Refill(s), 5/325] Pharmacy: [facility] #[id number], 170.1, cm, 10/12/21 5:21:00 [employer], Height, 80.005, kg, 10/11/21 17:51:00 [employer], Weight Bisacodyl No Notes: Memori a 2-03 (Same As: l 20:26: Dulcolax, Morral Bisco-Lax) Bisacodyl No Notes: Memori a 2-03 (Same As: l 20:26: Dulcolax, Obie 00 Bisco-Lax) Bisacodyl No Notes: Memori a 2-03 (Same As: l 20:26: Dulcolax, Morral 00 Bisco-Lax) Docusate No Notes: Memoria Sodium 50 2-01 (Same as l MG / 15:10: Senokot-S) Obie sennosides, 00 Equiv. to MCFP 8.6 MG Bettie-Colac Oral Tablet e. Miralax No Notes: Memoria 2-01 Dissolve l 15:10: in 8 oz of Morral 00 water or juice. (Same as: Miralax) Docusate No Notes: Memoria Sodium 50 2-01 (Same as l MG / 15:10: Senokot-S) Morral sennosides, 00 Equiv. to MCFP 8.6 MG Bettie-Colac Oral Tablet e. Miralax No Notes: Memoria 2-01 Dissolve l 15:10: in 8 oz of Obie 00 water or juice. (Same as: Miralax) Docusate No Notes: Memoria Sodium 50 2-01 (Same as l MG / 15:10: Senokot-S) Morral sennosides, 00 Equiv. to MCFP 8.6 MG Bettie-Colac Oral Tablet e. Miralax [...] [Colace] Crush) sennosides, No Notes: Eric oracio MCFP 2-01 (Same as: l 13:32: Senokot) Morral 00 sennosides, No Notes: Eric oracio MCFP 2-01 (Same as: l 13:32: Senokot) Morral 00 sennosides, No Notes: Eric oracio MCFP 2-01 (Same as: l 13:32: Senokot) Obie 00 Flomax No Notes: Memoria 1-31 (Same As: l 23:00: Flomax) Obie 00 "Do Not Crush" Flomax No Notes: Memoria 1-31 (Same As: l 23:00: Flomax) Obie 00 "Do Not Crush" Flomax No Notes: Memoria 1-31 (Same As: l 23:00: Flomax) Morral 00 "Do Not Crush" Sodium 2021-0 No 250 mL, Memoria Chloride 1- Rate: To l 0.9% 11:57: prime line Obie (titrate) 00 and flush 250 mL remaining blood products., Dosing Weight 80.005, kg, Route: IV, Total Volume: 250, Start Date: 10/14/21 5:57:00 [employer], Duration: 1 day, Stop date: 10/15/21 5:56:00 [employer], Replace Every: 24 hr, 0 Sodium 2022-0 No 250 mL, Memoria Chloride - Rate: To l 0.9% 11:57: prime line Obie (titrate) 00 and flush 250 mL remaining blood products., Dosing Weight 80.005, kg, Route: IV, Total Volume: 250, Start Date: 10/14/21 5:57:00 [employer], Duration: 1 day, Stop date: 10/15/21 5:56:00 [employer], Replace Every: 24 hr, 0 Sodium 2022-0 No 250 mL, Memoria Chloride 1- Rate: To l 0.9% 11:57: prime line Obie (titrate) 00 and flush 250 mL remaining blood products., Dosing Weight 80.005, kg, Route: IV, Total Volume: 250, Start Date: 10/14/21 5:57:00 [employer], Duration: 1 day, Stop date: 10/15/21 5:56:00 [employer], Replace Every: 24 hr, 0 remove 2021-0 No 1 patch, Memoria patch - Route: l 03:00: TOP, Obie 00 Bedtime, Drug form: ERFILM, Start date: 10/13/21 21:00:00 [employer], Duration: 30 day, Stop date: 11/11/21 21:00:00 [employer], 0 remove 2021-0 No 1 patch, Memoria patch 10-14 Route: l 03:00: TOP, Obie 00 Bedtime, Drug form: ERFILM, Start date: 10/13/21 21:00:00 [employer], Duration: 30 day, Stop date: 11/11/21 21:00:00 [employer], 0 remove 2021-0 No 1 patch, Memoria patch - Route: l 03:00: TOP, Morral 00 Bedtime, Drug form: ERFILM, Start date: 10/13/21 21:00:00 [employer], Duration: 30 day, Stop date: 11/11/21 21:00:00 [employer], 0 lidocaine 2-0 No 1 patch, Eric oracio 4% patch 10-13 Route: l 18:33: TOP, Obie 00 Daily, Drug form: FILM, Start date: 10/13/21 12:33:00 [employer], Duration: 30 day, Stop date: 11/12/21 9:00:00 [employer], 0 lidocaine 2-0 No 1 patch, Eric oracio 4% patch 10-13 Route: l 18:33: TOP, Obie 00 Daily, Drug form: FILM, Start date: 10/13/21 12:33:00 [employer], Duration: 30 day, Stop date: 11/12/21 9:00:00 [employer], 0 lidocaine 2-0 No 1 patch, Eric oracio 4% patch 10-13 Route: l 18:33: TOP, Morral 00 Daily, Drug form: FILM, Start date: 10/13/21 12:33:00 [employer], Duration: 30 day, Stop date: 11/12/21 9:00:00 [employer], 0 Tylenol 2021-0 No Notes: Do Memor ia 1-30 not exceed l 18:27: 4 gm/day. Obie 00 (Same as: Tylenol) tizanidine 2021-0 No Notes: Memor ia 1-30 (Same As: l 18:27: Zanaflex) Obie 00 Zofran No Notes: Memoria 1-30 (Same as: l 18:27: Zofran) Obie MEDICATION WASTE Product Size: 4 mg Product Wasted: ___ mg Melatonin 3 No Notes: Eric oracio MG Extended 1-30 (Same as: l Release 18:27: Melatonin) Herm juan m Tablet 00 Docusate No 1 tab, Memoria Sodium 50 1-30 Route: PO, l MG / 18:27: Drug Form: [place] sennosides, 00 TAB, MCFP 8.6 MG Dosing Oral Tablet Weight 80.005, kg, BID, PRN Constipati on, Start date: 10/13/21 12:27:00 [employer], Duration: 30 day, Stop date: 11/12/21 12:26:00 [employer] Tylenol No Notes: Do Memor ia 1-30 not exceed l 18:27: 4 gm/day. Obie (Same as: Tylenol) tizanidine No Notes: Memor ia 1-30 (Same As: l 18:27: Zanaflex) Obie Zofran No Notes: Memoria 1-30 (Same as: l 18:27: Zofran) Morral MEDICATION WASTE Product Size: 4 mg Product Wasted: ___ mg Melatonin 3 No Notes: Eric orcaio MG Extended 1-30 (Same as: l Release 18:27: Melatonin) Herm juan m Tablet 00 Docusate No 1 tab, Memoria Sodium 50 1-30 Route: PO, l MG / 18:27: Drug Form: [place] sennosides, 00 TAB, MCFP 8.6 MG Dosing Oral Tablet Weight 80.005, kg, BID, PRN Constipati on, Start date: 10/13/21 12:27:00 [employer], Duration: 30 day, Stop date: 11/12/21 12:26:00 [employer] Tylenol No Notes: Do Memor ia 1-30 not exceed l 18:27: 4 gm/day. Obie (Same as: Tylenol) tizanidine No Notes: Memor ia 1-30 (Same As: l 18:27: Zanaflex) Obie 00 Zofran No Notes: Memoria -30 (Same as: l 18:27: Zofran) Morral 00 MEDICATION WASTE Product Size: 4 mg Product Wasted: ___ mg Melatonin 3 No Notes: Eric oracio MG Extended -30 (Same as: l Release 18:27: Melatonin) Herm juan m Tablet 00 Docusate No 1 tab, Memoria Sodium 50 -30 Route: PO, l MG / 18:27: Drug Form: Ob[place] sennosides, 00 TAB, MCFP 8.6 MG Dosing Oral Tablet Weight 80.005, kg, BID, PRN Constipati on, Start date: 10/13/21 12:27:00 [employer], Duration: 30 day, Stop date: 11/12/21 12:26:00 [employer] Ceftriaxone No Notes: Eric oracio -30 (Same As: l 17:00: Rocephin). Obie 00 Use with 100 mL NS and infuse over 30 min MEDICATION WASTE Product Size: 1000 mg Product Wasted: ___ mg Ceftriaxone No Notes: Eric oracio -30 (Same As: l 17:00: Rocephin). Morral 00 Use with 100 mL NS and infuse over 30 min MEDICATION WASTE Product Size: 1000 mg Product Wasted: ___ mg Ceftriaxone No Notes: Eric oracio -30 (Same As: l 17:00: Rocephin). Obie 00 Use with 100 mL NS and infuse over 30 min MEDICATION WASTE Product Size: 1000 mg Product Wasted: ___ mg Levothroid No 100 Memoria 1-30 microgram, l 12:30: 1 tab, Obie 00 Route: PO, Drug form: TAB, Q630AM, Dosing Weight 80.005, kg, Start date: 10/13/21 6:30:00 [employer], Duration: 30 day, Stop date: 11/11/21 6:30:00 [employer], 0 Levothroid 2022-0 No 100 Memoria 1-30 microgram, l 12:30: 1 tab, Morral 00 Route: PO, Drug form: TAB, Q630AM, Dosing Weight 80.005, kg, Start date: 10/13/21 6:30:00 [employer], Duration: 30 day, Stop date: 11/11/21 6:30:00 [employer], 0 Levothroid No 100 Memoria 1-30 microgram, l 12:30: 1 tab, Morral 00 Route: PO, Drug form: TAB, Q630AM, Dosing Weight 80.005, kg, Start date: 10/13/21 6:30:00 [employer], Duration: 30 day, Stop date: 11/11/21 6:30:00 [employer], 0 Trazodone No Notes: Memori a Hydrochlori [...] Tablet 00 Diltiazem No Notes: Memori a 1-29 (Same as: l 22:00: Cardizem) Obie 00 Before meals Diltiazem No Notes: Memori a 1-29 (Same as: l 22:00: Cardizem) Morral 00 Before meals Diltiazem No Notes: Memori a 1-29 (Same as: l 22:00: Cardizem) Morral 00 Before meals Dilaudid No Notes: Memoria 1- Same as: l 17:57: Dilaudid Obie 00 Dilaudid No Notes: Memoria 1- Same as: l 17:57: Dilaudid Obie 00 Dilaudid No Notes: Memoria - Same as: l 17:57: Dilaudid Obie 00 Albuterol No Notes: SEE Me moria 10-12 RT l 17:00: DOCUMENTAT Obie 00 ION (Same as: Proventil) Albuterol No Notes: SEE Me moria 1-29 RT l 17:00: DOCUMENTAT Morral 00 ION (Same as: Proventil) Albuterol No Notes: SEE Me moria 1-29 RT l 17:00: DOCUMENTAT Obie 00 ION (Same as: Proventil) Aspirin 81 No Notes: Do Me moria MG Enteric - not crush l Coated 15:00: or chew. Morral Tablet 00 (Same As: Ecotrin) carvedilol No Notes: Memor ia 1- Give with l 15:00: food. Morral 00 (Same As: Coreg) Digoxin No Notes: Memoria 0.125 MG - Take on an l Oral Tablet 15:00: Empty Maribel nn 00 Stomach (Same as: Lanoxin) Cymbalta No Notes: Memoria 1- (Same as: l 15:00: Cymbalta) Morral (Do Not Crush) Dulera 100 No 2 puff, Eric oracio mcg-5 10-12 Route: l mcg/inh 15:00: INHALER, Luis n inhalation 00 Drug Form: aerosol AERO, Dosing Weight 80.005, kg, BID, Start date: 10/12/21 9:00:00 [employer], Duration: 30 day, Stop date: 11/10/21 17:00:00 [employer] Furosemide No Notes: Memor ia 1-29 (Same as: l 15:00: Lasix) May Morral cause GI upset. Give with food or milk. gabapentin No Notes: Memor ia - (Same as: l 15:00: Neurontin) Obie 00 Potassium No Notes: Memori a Chloride - (Same as: l 15:00: K-Dur 10) Obie 00 "Do Not Crush" With food and full glass of water Eliquis No Notes: Memoria 1-29 Same as: l 15:00: Eliquis Obie 00 Aspirin 81 No Notes: Do Me moria MG Enteric -29 not crush l Coated 15:00: or chew. Morral Tablet 00 (Same As: Ecotrin) carvedilol No Notes: Memor ia 1-29 Give with l 15:00: food. Obie 00 (Same As: Coreg) Digoxin No Notes: Memoria 0.125 MG 1-29 Take on an l Oral Tablet 15:00: Empty Maribel nn 00 Stomach (Same as: Lanoxin) Cymbalta No Notes: Memoria 1-29 (Same as: l 15:00: Cymbalta) Obie 00 (Do Not Crush) Dulera 100 No 2 puff, Eric oracio mcg-5 10-12 Route: l mcg/inh 15:00: INHALER, Luis n inhalation 00 Drug Form: aerosol AERO, Dosing Weight 80.005, kg, BID, Start date: 10/12/21 9:00:00 [employer], Duration: 30 day, Stop date: 11/10/21 17:00:00 [employer] Furosemide No Notes: Memor ia 1-29 (Same as: l 15:00: Lasix) May Obie cause GI upset. Give with food or milk. gabapentin No Notes: Memor ia 1-29 (Same as: l 15:00: Neurontin) Obie 00 Potassium No Notes: Memori a Chloride - (Same as: l 15:00: K-Dur 10) Morral 00 "Do Not Crush" With food and full glass of water Eliquis No Notes: Memoria 1-29 Same as: l 15:00: Eliquis [place] 00 Aspirin 81 No Notes: Do Me moria MG Enteric - not crush l Coated 15:00: or chew. Morral Tablet 00 (Same As: Ecotrin) carvedilol No Notes: Memor ia 1-29 Give with l 15:00: food. Obie 00 (Same As: Coreg) Digoxin No Notes: Memoria 0.125 MG 1-29 Take on an l Oral Tablet 15:00: Empty Maribel nn 00 Stomach (Same as: Lanoxin) Cymbalta No Notes: Memoria 1-29 (Same as: l 15:00: Cymbalta) Morral 00 (Do Not Crush) Dulera 100 No 2 puff, Eric oracio mcg-5 10-12 Route: l mcg/inh 15:00: INHALER, Luis n inhalation 00 Drug Form: aerosol AERO, Dosing Weight 80.005, kg, BID, Start date: 10/12/21 9:00:00 [employer], Duration: 30 day, Stop date: 11/10/21 17:00:00 [employer] Furosemide No Notes: Memor ia - (Same as: l 15:00: Lasix) May cause GI upset. Give with food or milk. gabapentin No Notes: Memor ia - (Same as: l 15:00: Neurontin) Obie Potassium No Notes: Memori a Chloride 10-12 (Same as: l 15:00: K-Dur 10) "Do Not Crush" With food and full glass of water Eliquis No Notes: Memoria - Same as: l 15:00: Eliquis Obie 00 Pulmicort No Notes: Memori a Respules - (Same As: l 14:39: Pulmicort Morral 00 respule). Pulmicort No Notes: Memori a Respules -29 (Same As: l 14:39: Pulmicort Morral 00 respule). Pulmicort No Notes: Memori a Respules - (Same As: l 14:39: Pulmicort Morral 00 respule). Docusate No Notes: Memoria Sodium 50 1-29 (Same as l MG / 14:33: Senokot-S) Morral sennosides, 00 Equiv. to MCFP 8.6 MG Bettie-Colac Oral Tablet e. Docusate No Notes: Memoria Sodium 50 1-29 (Same as l MG / 14:33: Senokot-S) Morral sennosides, 00 Equiv. to MCFP 8.6 MG Bettie-Colac Oral Tablet e. Docusate No Notes: Memoria Sodium 50 1-29 (Same as l MG / 14:33: Senokot-S) Obie sennosides, 00 Equiv. to MCFP 8.6 MG Bettie-Colac Oral Tablet e. Acetaminoph No Notes: Eric oracio en 325 MG / 10-12 (Same as: l Hydrocodone 01:07: [place] Maribel nn Bitartrate 00 325/5) Do 5 MG Oral not exceed Tablet 4gm/day of [[place] acetaminop 5/325] hen. Acetaminoph No Notes: Eric oracio en 325 MG / 10-12 (Same as: l Hydrocodone 01:07: [place] Maribel nn Bitartrate 00 325/5) Do 5 MG Oral not exceed Tablet 4gm/day of [[place] acetaminop 5/325] hen. Acetaminoph No Notes: Eric oracio en 325 MG / 10-12 (Same as: l Hydrocodone 01:07: [place] Maribel nn Bitartrate 00 325/5) Do 5 MG Oral not exceed Tablet 4gm/day of [[place] acetaminop 5/325] hen. Calcium No 1,000 mL, Memor ia Chloride 10-11 Rate: 125 l 0.0014 23:08: ml/hr, Obie MEQ/ML / 00 Infuse Potassium over: 8 Chloride hr, Route: 0.004 IV, Dosing MEQ/ML / Weight Sodium 76.864 kg, Chloride Total 0.103 Volume: MEQ/ML / 1,000, Sodium Start Lactate date: 0.028 10/11/21 MEQ/ML 17:08:00 Injectable [employer], Solution Duration: 30 day, Stop date: 11/10/21 17:07:00 [employer], BSA: 1.92 m2, 0 Hydralazine No 10 mg, Eric oracio 10-11 Route: l 23:08: IVP, Obie 00 Q20Min, Dosing Weight 76.864, kg, PRN Elevated BP, Start date: 10/11/21 17:08:00 [employer], Duration: 2 doses or times, Stop date: Limited # of times Acetaminoph 0 No 1,000 mg, M emoria en 10-11 Route: PO, l 23:08: Drug form: Morral 00 TAB, ONCE, Dosing Weight 76.864, kg, PRN Pain Score 1-3, Start date: 10/11/21 17:08:00 [employer] Fentanyl 2021-0 No 25 Memoria 10-11 microgram, l 23:08: Route: Obie 00 IVP, Q5Min, Dosing Weight 76.864, kg, PRN Pain Score 4-6, Priority: Routine, Start date: 10/11/21 17:08:00 [employer], Duration: 4 doses or times, Stop date: Limited # of times Hydromorpho 2021-0 No 0.5 mg, Mem oria ne 10-11 Route: l 23:08: IVP, Obie 00 Q5Min, Dosing Weight 76.864, kg, PRN Pain Score 7-10, Start date: 10/11/21 17:08:00 [employer], Duration: 4 doses or times, Stop date: Limited # of times Flumazenil 2021-0 No 0.2 mg, Eric oracio 10-11 Route: l 23:08: IVP, PRN, Dosing Weight 76.864, kg, PRN Benzodiaze pine Reversal, Initial dose, Start date: 10/11/21 17:08:00 [employer], Duration: 30 day, Stop date: 11/10/21 17:07:00 [employer] Naloxone 2021-0 No 0.4 mg, Memori a 10-11 Route: l 23:08: IVP, Obie 00 Q2MIN, Dosing Weight 76.864, kg, PRN Narcotic Reversal, Start date: 10/11/21 17:08:00 [employer], Duration: 8 doses or times, Stop date: Limited # of times Ondansetron 2-0 No 4 mg, Memor ia 10-11 Route: l 23:08: IVP, ONCE, Obie 00 Dosing Weight 76.864, kg, PRN Nausea & Vomiting, Start date: 10/11/21 17:08:00 [employer] Calcium 2-0 No 1,000 mL, Memor ia Chloride 10-11 Rate: 125 l 0.0014 23:08: ml/hr, Morral MEQ/ML / 00 Infuse Potassium over: 8 Chloride hr, Route: 0.004 IV, Dosing MEQ/ML / Weight Sodium 76.864 kg, Chloride Total 0.103 Volume: MEQ/ML / 1,000, Sodium Start Lactate date: 0.028 10/11/21 MEQ/ML 17:08:00 Injectable [employer], Solution Duration: 30 day, Stop date: 11/10/21 17:07:00 [employer], BSA: 1.92 m2, 0 Hydralazine 2022-0 No 10 mg, Eric oracio 10-11 Route: l 23:08: IVP, Morral 00 Q20Min, Dosing Weight 76.864, kg, PRN Elevated BP, Start date: 10/11/21 17:08:00 [employer], Duration: 2 doses or times, Stop date: Limited # of times Acetaminoph 2-0 No 1,000 mg, M emoria en 10-11 Route: PO, l 23:08: Drug form: Obie 00 TAB, ONCE, Dosing Weight 76.864, kg, PRN Pain Score 1-3, Start date: 10/11/21 17:08:00 [employer] Fentanyl 2021-0 No 25 Memoria 10-11 microgram, l 23:08: Route: Obie 00 IVP, Q5Min, Dosing Weight 76.864, kg, PRN Pain Score 4-6, Priority: Routine, Start date: 10/11/21 17:08:00 [employer], Duration: 4 doses or times, Stop date: Limited # of times Hydromorpho 2-0 No 0.5 mg, Mem oria ne 10-11 Route: l 23:08: IVP, Obie 00 Q5Min, Dosing Weight 76.864, kg, PRN Pain Score 7-10, Start date: 10/11/21 17:08:00 [employer], Duration: 4 doses or times, Stop date: Limited # of times Flumazenil 2-0 No 0.2 mg, Eric oracio 10-11 Route: l 23:08: IVP, PRN, Morral 00 Dosing Weight 76.864, kg, PRN Benzodiaze pine Reversal, Initial dose, Start date: 10/11/21 17:08:00 [employer], Duration: 30 day, Stop date: 11/10/21 17:07:00 [employer] Naloxone 2-0 No 0.4 mg, Memori a 10-11 Route: l 23:08: IVP, Obie 00 Q2MIN, Dosing Weight 76.864, kg, PRN Narcotic Reversal, Start date: 10/11/21 17:08:00 [employer], Duration: 8 doses or times, Stop date: Limited # of times Ondansetron 2-0 No 4 mg, Memor ia 10-11 Route: l 23:08: IVP, ONCE, Morral 00 Dosing Weight 76.864, kg, PRN Nausea & Vomiting, Start date: 10/11/21 17:08:00 [employer] Calcium 2-0 No 1,000 mL, Memor ia Chloride 10-11 Rate: 125 l 0.0014 23:08: ml/hr, Obie MEQ/ML / 00 Infuse Potassium over: 8 Chloride hr, Route: 0.004 IV, Dosing MEQ/ML / Weight Sodium 76.864 kg, Chloride Total 0.103 Volume: MEQ/ML / 1,000, Sodium Start Lactate date: 0.028 10/11/21 MEQ/ML 17:08:00 Injectable [employer], Solution Duration: 30 day, Stop date: 11/10/21 17:07:00 [employer], BSA: 1.92 m2, 0 Hydralazine 2-0 No 10 mg, Eric oracio 10-11 Route: l 23:08: IVP, Morral 00 Q20Min, Dosing Weight 76.864, kg, PRN Elevated BP, Start date: 10/11/21 17:08:00 [employer], Duration: 2 doses or times, Stop date: Limited # of times Acetaminoph 2-0 No 1,000 mg, M emoria en 10-11 Route: PO, l 23:08: Drug form: Morral TAB, ONCE, Dosing Weight 76.864, kg, PRN Pain Score 1-3, Start date: 10/11/21 17:08:00 [employer] Fentanyl 2-0 No 25 Memoria 10-11 microgram, l 23:08: Route: Obie 00 IVP, Q5Min, Dosing Weight 76.864, kg, PRN Pain Score 4-6, Priority: Routine, Start date: 10/11/21 17:08:00 [employer], Duration: 4 doses or times, Stop date: Limited # of times Hydromorpho 2-0 No 0.5 mg, Mem oria ne 10-11 Route: l 23:08: IVP, Morral 00 Q5Min, Dosing Weight 76.864, kg, PRN Pain Score 7-10, Start date: 10/11/21 17:08:00 [employer], Duration: 4 doses or times, Stop date: Limited # of times Flumazenil 2021-0 No 0.2 mg, Eric oracio 10-11 Route: l 23:08: IVP, PRN, Obie 00 Dosing Weight 76.864, kg, PRN Benzodiaze pine Reversal, Initial dose, Start date: 10/11/21 17:08:00 [employer], Duration: 30 day, Stop date: 11/10/21 17:07:00 [employer] Naloxone 2021-0 No 0.4 mg, Memori a 10-11 Route: l 23:08: IVP, Morral 00 Q2MIN, Dosing Weight 76.864, kg, PRN Narcotic Reversal, Start date: 10/11/21 17:08:00 [employer], Duration: 8 doses or times, Stop date: Limited # of times Ondansetron 0 No 4 mg, Memor ia 10-11 Route: l 23:08: IVP, ONCE, Obie 00 Dosing Weight 76.864, kg, PRN Nausea & Vomiting, Start date: 10/11/21 17:08:00 [employer] Lovenox 2021-0 No Notes: Memoria 10-11 (Same as: l 23:00: Lovenox) Lovenox 0 No Notes: Memoria 10-11 (Same as: l 23:00: Lovenox) Lovenox 0 No Notes: Memoria 10-11 (Same as: l 23:00: Lovenox) metoprolol 0 No Route: IV, M emoria (ANES) 10-11 Drug form: l 22:53: INJ, ONCE, Stop date: 10/11/21 16:53:00 [employer] hydrALAZINE 0 No Route: IV, Memoria (ANES) 10-11 Drug form: l 22:53: INJ, ONCE, Stop date: 10/11/21 16:53:00 [employer] metoprolol 0 No Route: IV, M emoria (ANES) 10-11 Drug form: l 22:53: INJ, ONCE, Stop date: 10/11/21 16:53:00 [employer] hydrALAZINE 2021-0 No Route: IV, Memoria (ANES) 10-11 Drug form: l 22:53: INJ, ONCE, Stop date: 10/11/21 16:53:00 [employer] metoprolol 2021-0 No Route: IV, M emoria (ANES) 10-11 Drug form: l 22:53: INJ, ONCE, Stop date: 10/11/21 16:53:00 [employer] hydrALAZINE 2021-0 No Route: IV, Memoria (ANES) 10-11 Drug form: l 22:53: INJ, ONCE, Stop date: 10/11/21 16:53:00 [employer] ondansetron 2021-0 No Route: IV, Memoria (ANES) 10-11 Drug form: l 22:43: INJ, ONCE, Stop date: 10/11/21 16:43:00 [employer] glycopyrrol 2021-0 No Route: IV, Memoria ate (ANES) 10-11 Drug form: l 22:43: INJ, ONCE, Stop date: 10/11/21 16:43:00 [employer] neostigmine 2021-0 No Route: IV, Memoria (ANES) 10-11 Drug form: l 22:43: INJ, ONCE, Stop date: 10/11/21 16:43:00 [employer] ondansetron 2021-0 No Route: IV, Memoria (ANES) 10-11 Drug form: l 22:43: INJ, ONCE, Stop date: 10/11/21 16:43:00 [employer] glycopyrrol 2021-0 No Route: IV, Memoria ate (ANES) 10-11 Drug form: l 22:43: INJ, ONCE, Stop date: 10/11/21 16:43:00 [employer] neostigmine 2021-0 No Route: IV, Memoria (ANES) 10-11 Drug form: l 22:43: INJ, ONCE, Stop date: 10/11/21 16:43:00 [employer] ondansetron 2022-0 No Route: IV, Memoria (ANES) 10-11 Drug form: l 22:43: INJ, ONCE, [place] 00 Stop date: 10/11/21 16:43:00 [employer] glycopyrrol No Route: IV, Memoria ate (ANES) 10-11 Drug form: l 22:43: INJ, ONCE, [place] 00 Stop date: 10/11/21 16:43:00 [employer] neostigmine No Route: IV, Memoria (ANES) 10-11 Drug form: l 22:43: INJ, ONCE, Obie Stop date: 10/11/21 16:43:00 [employer] normal No 1,000 mL, Memori a saline 0.9% 10-11 Rate: 100 l IV 1,000 mL 22:37: ml/hr, Herm juan m 00 Infuse over: 10 hr, Route: IV, Dosing Weight 76.864 kg, Total Volume: 1,000, Start date: 10/11/21 16:37:00 [employer], Duration: 30 day, Stop date: 11/10/21 16:36:00 [employer], BSA: 1.92 m2, 0 normal No 1,000 mL, Memori a saline 0.9% 10-11 Rate: 100 l IV 1,000 mL 22:37: ml/hr, Herm juan m 00 Infuse over: 10 hr, Route: IV, Dosing Weight 76.864 kg, Total Volume: 1,000, Start date: 10/11/21 16:37:00 [employer], Duration: 30 day, Stop date: 11/10/21 16:36:00 [employer], BSA: 1.92 m2, 0 normal 0 No 1,000 mL, Memori a saline 0.9% 10-11 Rate: 100 l IV 1,000 mL 22:37: ml/hr, Herm juan m 00 Infuse over: 10 hr, Route: IV, Dosing Weight 76.864 kg, Total Volume: 1,000, Start date: 10/11/21 16:37:00 [employer], Duration: 30 day, Stop date: 11/10/21 16:36:00 [employer], BSA: 1.92 m2, 0 protamine No Route: IV, Me moria (ANES) 10-11 Drug form: l 22:32: INJ, ONCE, Stop date: 10/11/21 16:32:00 [employer] protamine 2021-0 No Route: IV, Me moria (ANES) 10-11 Drug form: l 22:32: INJ, ONCE, Stop date: 10/11/21 16:32:00 [employer] protamine 2021-0 No Route: IV, Me moria (ANES) 10-11 Drug form: l 22:32: INJ, ONCE, Stop date: 10/11/21 16:32:00 [employer] AND [employer] heparin 2021-0 No Route: IV, Eric oracio (ANES) 10-11 Drug form: l 21:11: INJ, ONCE, Stop date: 10/11/21 15:11:00 [employer] heparin 2021-0 No Route: IV, Eric oracio (ANES) 10-11 Drug form: l 21:11: INJ, ONCE, Stop date: 10/11/21 15:11:00 [employer] heparin 2021-0 No Route: IV, Eric oracio (ANES) 10-11 Drug form: l 21:11: INJ, ONCE, Stop date: 10/11/21 15:11:00 [employer] rocuronium 2021-0 No Route: IV, M emoria (ANES) 10-11 Drug form: l 20:25: INJ, ONCE, Stop date: 10/11/21 14:25:00 [employer] dexamethaso 202-0 No Route: IV, Memoria ne (ANES) 10-11 Drug form: l 20:25: INJ, ONCE, Stop date: 10/11/21 14:25:00 [employer] rocuronium 2022-0 No Route: IV, M emoria (ANES) 10-11 Drug form: l 20:25: INJ, ONCE, Stop date: 10/11/21 14:25:00 [employer] dexamethaso 2021-0 No Route: IV, Memoria ne (ANES) 10-11 Drug form: l 20:25: INJ, ONCE, Stop date: 10/11/21 14:25:00 [employer] rocuronium 2022-0 No Route: IV, M emoria (ANES) 10-11 Drug form: l 20:25: INJ, ONCE, Stop date: 10/11/21 14:25:00 [employer] dexamethaso 2021-0 No Route: IV, Memoria ne (ANES) 10-11 Drug form: l 20:25: INJ, ONCE, Stop date: 10/11/21 14:25:00 [employer] fentaNYL 2021-0 No Route: IV, Mem oria (ANES) 10-11 Drug form: l 19:55: INJ, ONCE, Stop date: 10/11/21 13:55:00 [employer] propofol 2021-0 No Route: IV, Mem oria (ANES) 10-11 Drug form: l 19:55: INJ, ONCE, Stop date: 10/11/21 13:55:00 [employer] ceFAZolin 2021-0 No Route: IV, Me moria (ANES) 10-11 Drug form: l 19:55: INJ, ONCE, Stop date: 10/11/21 13:55:00 [employer] lidocaine 2021-0 No Route: IV, Me moria (ANES) 10-11 Drug form: l 19:55: INJ, ONCE, Stop date: 10/11/21 13:55:00 [employer] fentaNYL 2021-0 No Route: IV, Mem oria (ANES) 10-11 Drug form: l 19:55: INJ, ONCE, Stop date: 10/11/21 13:55:00 [employer] propofol 2021-0 No Route: IV, Mem oria (ANES) 10-11 Drug form: l 19:55: INJ, ONCE, Stop date: 10/11/21 13:55:00 [employer] ceFAZolin 2021-0 No Route: IV, Me moria (ANES) 10-11 Drug form: l 19:55: INJ, ONCE, Stop date: 10/11/21 13:55:00 [employer] lidocaine 2021-0 No Route: IV, Me moria (ANES) 10-11 Drug form: l 19:55: INJ, ONCE, Stop date: 10/11/21 13:55:00 [employer] fentaNYL 2021-0 No Route: IV, Mem oria (ANES) 10-11 Drug form: l 19:55: INJ, ONCE, Stop date: 10/11/21 13:55:00 [employer] propofol 2021-0 No Route: IV, Mem oria (ANES) 10-11 Drug form: l 19:55: INJ, ONCE, Stop date: 10/11/21 13:55:00 [employer] ceFAZolin 2021-0 No Route: IV, Me moria (ANES) 10-11 Drug form: l 19:55: INJ, ONCE, Stop date: 10/11/21 13:55:00 [employer] lidocaine 2021-0 No Route: IV, Me moria (ANES) 10-11 Drug form: l 19:55: INJ, ONCE, Stop date: 10/11/21 13:55:00 [employer] vancomycin 2021-0 No Route: IV, M emoria (ANES) 1000 10-11 Drug form: l mg 19:20: INJ, Start date: 10/11/21 13:20:00 [employer], Stop date: 10/11/21 14:20:00 [employer] vancomycin 2021-0 No Route: IV, M emoria (ANES) 1000 10-11 Drug form: l mg 19:20: INJ, Start date: 10/11/21 13:20:00 [employer], Stop date: 10/11/21 14:20:00 [employer] vancomycin 2021-0 No Route: IV, M emoria (ANES) 1000 10-11 Drug form: l mg 19:20: INJ, Start date: 10/11/21 13:20:00 [employer], Stop date: 10/11/21 14:20:00 [employer] midazolam 2021-0 No Route: IV, Me moria (ANES) 10-11 Drug form: l 19:09: SOLN, Obie ONCE, Stop date: 10/11/21 13:09:00 [employer] midazolam 2-0 No Route: IV, Me moria (ANES) 10-11 Drug form: l 19:09: SOLN, Morral 00 ONCE, Stop date: 10/11/21 13:09:00 [employer] midazolam 2-0 No Route: IV, Me moria (ANES) 10-11 Drug form: l 19:09: SOLN, Morral 00 ONCE, Stop date: 10/11/21 13:09:00 [employer] Sodium 2-0 No Route: IV, Memor ia Chloride 1-28 Total l 0.9% IV 18:50: Volume: Morral (ANES) 1000 00 1,000, mL Start date: 10/11/21 12:50:00 [employer], Stop date: 10/11/21 13:50:00 [employer] Sodium 2022-0 No Route: IV, Memor ia Chloride 1-28 Total l 0.9% IV 18:50: Volume: Obie (ANES) 1000 00 1,000, mL Start date: 10/11/21 12:50:00 [employer], Stop date: 10/11/21 13:50:00 [employer] Sodium 2022-0 No Route: IV, Memor ia Chloride 1-28 Total l 0.9% IV 18:50: Volume: Morral (ANES) 1000 00 1,000, mL Start date: 10/11/21 12:50:00 [employer], Stop date: 10/11/21 13:50:00 [employer] Lactated 2022-0 No Route: IV, Mem oria Ringers 1-28 Total l Injection 18:36: Volume: Maribel nn IV (ANES) 00 1,000, 1000 mL Start date: 10/11/21 12:36:00 [employer], Stop date: 10/11/21 13:36:00 [employer] Lactated 2-0 No Route: IV, Mem oria Ringers 1-28 Total l Injection 18:36: Volume: Maribel nn IV (ANES) 00 1,000, 1000 mL Start date: 10/11/21 12:36:00 [employer], Stop date: 10/11/21 13:36:00 [employer] Lactated 2-0 No Route: IV, Mem oria Ringers 1-28 Total l Injection 18:36: Volume: Maribel nn IV (ANES) 00 1,000, 1000 mL Start date: 10/11/21 12:36:00 [employer], Stop date: 10/11/21 13:36:00 [employer] Lactated 2021-0 No 1,000 mL, Eric oracio Ringers IV 1-28 Rate: 75 l 1,000 mL 18:34: ml/hr, Obie 00 Infuse over: 13.3 hr, Route: IV, Dosing Weight 76.864 kg, Total Volume: 1,000, Start date: 10/11/21 12:34:00 [employer], Duration: 30 day, Stop date: 11/10/21 12:33:00 [employer], BSA: 1.92 m2, 0 Lactated 2022-0 No 1,000 mL, Erci oracio Ringers IV 10-11 Rate: 75 l 1,000 mL 18:34: ml/hr, Obie 00 Infuse over: 13.3 hr, Route: IV, Dosing Weight 76.864 kg, Total Volume: 1,000, Start date: 10/11/21 12:34:00 [employer], Duration: 30 day, Stop date: 11/10/21 12:33:00 [employer], BSA: 1.92 m2, 0 Lactated 2-0 No 1,000 mL, Eric oracio Ringers IV 10-11 Rate: 75 l 1,000 mL 18:34: ml/hr, Morral 00 Infuse over: 13.3 hr, Route: IV, Dosing Weight 76.864 kg, Total Volume: 1,000, Start date: 10/11/21 12:34:00 [employer], Duration: 30 day, Stop date: 11/10/21 12:33:00 [employer], BSA: 1.92 m2, 0 Calcium 2-0 No 1,000 mL, Memor ia Chloride 1-20 Rate: 75 l 0.0014 16:59: ml/hr, Morral MEQ/ML / 00 Infuse Potassium over: 13.3 Chloride hr, Route: 0.004 IV, Dosing MEQ/ML / Weight Sodium 76.864 kg, Chloride Total 0.103 Volume: MEQ/ML / 1,000, Sodium Start Lactate date: 0.028 10/03/21 MEQ/ML 10:59:00 Injectable [employer], Solution Duration: 30 day, Stop date: 11/02/21 10:58:00 [employer], BSA: 1.92 m2 Calcium 2022-0 No 1,000 mL, Memor ia Chloride 1-20 Rate: 75 l 0.0014 16:59: ml/hr, Obie MEQ/ML / 00 Infuse Potassium over: 13.3 Chloride hr, Route: 0.004 IV, Dosing MEQ/ML / Weight Sodium 76.864 kg, Chloride Total 0.103 Volume: MEQ/ML / 1,000, Sodium Start Lactate date: 0.028 10/03/21 MEQ/ML 10:59:00 Injectable [employer], Solution Duration: 30 day, Stop date: 11/02/21 10:58:00 [employer], BSA: 1.92 m2 Calcium 2021-0 No 1,000 mL, Memor ia Chloride 1-20 Rate: 75 l 0.0014 16:59: ml/hr, Morral MEQ/ML / 00 Infuse Potassium over: 13.3 Chloride hr, Route: 0.004 IV, Dosing MEQ/ML / Weight Sodium 76.864 kg, Chloride Total 0.103 Volume: MEQ/ML / 1,000, Sodium Start Lactate date: 0.028 10/03/21 MEQ/ML 10:59:00 Injectable [employer], Solution Duration: 30 day, Stop date: 11/02/21 10:58:00 [employer], BSA: 1.92 m2 carvedilol 2021-0 Yes 25 mg = 2 Me moria 12.5 mg 1-17 tab, PO, l oral tablet 20:47: Q12H, # Her song 00 120 tab, 1 Refill(s), Pharmacy: [facility] #[id number], 170.18, cm, 09/29/21 4:04:00 [employer], Height, 76.864, kg, 09/29/21 4:04:00 [employer], Weight Digoxin 2021-0 Yes 0.125 mg = Eric oracio 0.125 MG 1-17 1 tab, PO, l Oral Tablet 20:47: Daily, # He rmann 00 30 tab, 1 Refill(s), [id number], 170.18, cm, 09/29/21 4:04:00 [employer], Height, 76.864, kg, 09/29/21 4:04:00 [employer], Weight diltiazem 2021-0 Yes 60 mg = 1 Mem oria 60 mg oral 1-17 tab, PO, l tablet 20:47: Q8H, # 90 Luis n 00 tab, 1 Refill(s), [id number], 170.18, cm, 09/29/21 4:04:00 [employer], Height, 76.864, kg, 09/29/21 4:04:00 [employer], Weight Docusate 2021-0 Yes 1 tab, PO, Mem oria Sodium 50 1-17 BID, PRN l MG / 20:47: Constipati Obie sennosides, 00 on, X 14 MCFP 8.6 MG day, # 30 Oral Tablet tab, 0 Refill(s), Pharmacy: [facility] STORE #[id number], 170.18, cm, 09/29/21 4:04:00 [employer], Height, 76.864, kg, 09/29/21 4:04:00 [employer], Weight carvedilol 2021-0 Yes 25 mg = 2 Me moria 12.5 mg 1-17 tab, PO, l oral tablet 20:47: Q12H, # Her song 00 120 tab, 1 Refill(s), Pharmacy: [facility] ST[facility] #[id number], 170.18, cm, 09/29/21 4:04:00 [employer], Height, 76.864, kg, 09/29/21 4:04:00 [employer], Weight Digoxin 0 Yes 0.125 mg = Eric oracio 0.125 MG 1-17 1 tab, PO, l Oral Tablet 20:47: Daily, # He rmann 00 30 tab, 1 Refill(s), Pharmacy: [facility] ST[facility] #[id number], 170.18, cm, 09/29/21 4:04:00 [employer], Height, 76.864, kg, 09/29/21 4:04:00 [employer], Weight diltiazem 0 Yes 60 mg = 1 Mem oria 60 mg oral 1-17 tab, PO, l tablet 20:47: Q8H, # 90 Luis n 00 tab, 1 Refill(s), Pharmacy: [facility] ST[facility] #[id number], 170.18, cm, 09/29/21 4:04:00 [employer], Height, 76.864, kg, 09/29/21 4:04:00 [employer], Weight Docusate 2021-0 Yes 1 tab, PO, Mem oria Sodium 50 1-17 BID, PRN l MG / 20:47: Constipati Morral sennosides, 00 on, X 14 MCFP 8.6 MG day, # 30 Oral Tablet tab, 0 Refill(s), Pharmacy: [facility] ST[facility] #[id number], 170.18, cm, 09/29/21 4:04:00 [employer], Height, 76.864, kg, 09/29/21 4:04:00 [employer], Weight carvedilol Yes 25 mg = 2 Me moria 12.5 mg 1-17 tab, PO, l oral tablet 20:47: Q12H, # Her song 00 120 tab, 1 Refill(s), Pharmacy: [facility] ST[facility] #[id number], 170.18, cm, 09/29/21 4:04:00 [employer], Height, 76.864, kg, 09/29/21 4:04:00 [employer], Weight Digoxin Yes 0.125 mg = Eric oracio 0.125 MG 1-17 1 tab, PO, l Oral Tablet 20:47: Daily, # He rmann 00 30 tab, 1 Refill(s), Pharmacy: [facility] ST[facility] #[id number], 170.18, cm, 09/29/21 4:04:00 [employer], Height, 76.864, kg, 09/29/21 4:04:00 [employer], Weight diltiazem Yes 60 mg = 1 Mem oria 60 mg oral 1-17 tab, PO, l tablet 20:47: Q8H, # 90 Luis n 00 tab, 1 Refill(s), Pharmacy: [facility] ST[facility] #[id number], 170.18, cm, 09/29/21 4:04:00 [employer], Height, 76.864, kg, 09/29/21 4:04:00 [employer], Weight Docusate Yes 1 tab, PO, Mem oria Sodium 50 1-17 BID, PRN l MG / 20:47: Constipati Obie sennosides, 00 on, X 14 MCFP 8.6 MG day, # 30 Oral Tablet tab, 0 Refill(s), Pharmacy: [facility] ST[facility] #[id number], 170.18, cm, 09/29/21 4:04:00 [employer], Height, 76.864, kg, 09/29/21 4:04:00 [employer], Weight Docusate No Notes: Memoria Sodium 50 1-17 (Same as l MG / 14:18: Senokot-S) Obie sennosides, 00 Equiv. to MCFP 8.6 MG Bettie-Colac Oral Tablet e. Docusate No Notes: Memoria Sodium 50 1-17 (Same as l MG / 14:18: Senokot-S) Obie sennosides, 00 Equiv. to MCFP 8.6 MG Bettie-Colac Oral Tablet e. Docusate No Notes: Memoria Sodium 50 1-17 (Same as l MG / 14:18: Senokot-S) Obie sennosides, 00 Equiv. to MCFP 8.6 MG Bettie-Colac Oral Tablet e. Diltiazem No Notes: Memori a 1-16 (Same as: l 23:21: Cardizem) Obie 00 Before meals Diltiazem No Notes: Memori a 1-16 (Same as: l 23:21: Cardizem) Morral 00 Before meals Diltiazem No Notes: Memori a 1-16 (Same as: l 23:21: Cardizem) Obie 00 Before meals Potassium No Notes: Memori a Chloride 1-16 (Same as: l 17:15: K-Dur 20) Morral 00 "Do Not Crush" Give with food and full glass of water For patients unable to swallow tablet, dissolve in one half glass of water. Allow about 2 minutes for the tablets to disintegra te. Stir before giving to prepare slurry and administer . Please exclude Patient s with feeding tube less than 14 Indonesian (Dobhoff, J-tube etc) and pediatric and patients. Potassium 0 No Notes: Memori a Chloride 1-16 (Same [...] s with feeding tube less than 14 Indonesian (Dobhoff, J-tube etc) and pediatric and patients. Potassium 0 No Notes: Memori a Chloride 1-16 (Same as: l 17:15: K-Dur 20) Morral 00 "Do Not Crush" Give with food and full glass of water For patients unable to swallow tablet, dissolve in one half glass of water. Allow about 2 minutes for the tablets to disintegra te. Stir before giving to prepare slurry and administer . Please exclude Patient s with feeding tube less than 14 Indonesian (Dobhoff, J-tube etc) and pediatric and patients. Metoprolol No Notes: Memor ia 1-16 (Same as: l 14:44: Lopressor) Obie 00 Push over 2 minutes Metoprolol No Notes: Memor ia 1-16 (Same as: l 14:44: Lopressor) Obie Push over 2 minutes Metoprolol No Notes: Memor ia 1-16 (Same as: l 14:44: Lopressor) Obie Push over 2 minutes Trazodone No Notes: Memori a Hydrochlori 1-16 (Same As: l de 100 MG 03:00: Desyrel) Herm juan m Oral Tablet 00 Coreg No Notes: Memoria 1-16 Give with l 03:00: food. Obie 00 (Same As: Coreg) Trazodone No Notes: Memori a Hydrochlori 1-16 (Same As: l de 100 MG 03:00: Desyrel) Herm juan m Oral Tablet 00 Coreg No Notes: Memoria 1-16 Give with l 03:00: food. Obie 00 (Same As: Coreg) Trazodone No Notes: [...] Me moria 1-15 RT l 17:00: DOCUMENTAT Morral 00 ION (Same as: Proventil) Albuterol No Notes: SEE Me moria 1-15 RT l 17:00: DOCUMENTAT Morral 00 ION (Same as: Proventil) Aspirin 81 No Notes: Do Me moria MG Enteric 1-15 not crush l Coated 15:00: or chew. Morral Tablet 00 (Same As: Ecotrin) Cymbalta No Notes: Memoria 1-15 (Same as: l 15:00: Cymbalta) Morral (Do Not Crush) Esomeprazol No 40 mg, 1 Me moria e 1-15 cap, l 15:00: Route: PO, Morral Drug form: ECCAP, Daily, Dosing Weight 77.273, kg, Start date: 09/28/21 9:00:00 [employer], Duration: 30 day, Stop date: 10/27/21 9:00:00 [employer] Dulera 100 No 2 puff, Eric oracio mcg-5 1-15 Route: l mcg/inh 15:00: INHALER, Luis n inhalation 00 Drug Form: aerosol AERO, Dosing Weight 77.273, kg, BID, Start date: 09/28/21 9:00:00 [employer], Duration: 30 day, Stop date: 10/27/21 17:00:00 [employer] gabapentin No Notes: Memor ia 1-15 (Same [...] 1-15 Give with l 15:00: food. Obie 00 (Same As: Coreg) Aspirin 81 No Notes: Do Me moria MG Enteric 1-15 not crush l Coated 15:00: or chew. Obie Tablet 00 (Same As: Ecotrin) Cymbalta No Notes: Memoria 1-15 (Same as: l 15:00: Cymbalta) Obie (Do Not Crush) Esomeprazol No 40 mg, 1 Me moria e 1-15 cap, l 15:00: Route: PO, Morral Drug form: ECCAP, Daily, Dosing Weight 77.273, kg, Start date: 09/28/21 9:00:00 [employer], Duration: 30 day, Stop date: 10/27/21 9:00:00 [employer] Dulera 100 No 2 puff, Eric oracio mcg-5 1-15 Route: l mcg/inh 15:00: INHALER, Luis n inhalation 00 Drug Form: aerosol AERO, Dosing Weight 77.273, kg, BID, Start date: 09/28/21 9:00:00 [employer], Duration: 30 day, Stop date: 10/27/21 17:00:00 [employer] gabapentin No Notes: Memor ia 1-15 (Same [...] Memoria 1-15 (Same as: l 15:00: Cymbalta) Morral (Do Not Crush) Esomeprazol No 40 mg, 1 Me moria e 1-15 cap, l 15:00: Route: PO, Morral Drug form: ECCAP, Daily, Dosing Weight 77.273, kg, Start date: 09/28/21 9:00:00 [employer], Duration: 30 day, Stop date: 10/27/21 9:00:00 [employer] Dulera 100 No 2 puff, Eric oracio mcg-5 1-15 Route: l mcg/inh 15:00: INHALER, Luis n inhalation 00 Drug Form: aerosol AERO, Dosing Weight 77.273, kg, BID, Start date: 09/28/21 9:00:00 [employer], Duration: 30 day, Stop date: 10/27/21 17:00:00 [employer] gabapentin No Notes: Memor ia 1-15 (Same [...] nn 00 Stomach (Same as: Lanoxin) Coreg 2022-0 No Notes: Memoria 1-15 Give with l 15:00: food. Obie 00 (Same As: Coreg) Pulmicort No Notes: Memori a Respules 1-15 (Same As: l 14:36: Pulmicort Morral 00 respule). Pulmicort 0 No Notes: Memori a Respules 1-15 (Same As: l 14:36: Pulmicort Obie 00 respule). Pulmicort 0 No Notes: Memori a Respules 1-15 (Same As: l 14:36: Pulmicort Obie 00 respule). Protonix No Notes: Memoria 1-15 Tablet l 13:30: should not Morral 00 be chewed or crushed. (Same as: Protonix) Protonix 0 No Notes: Memoria 1-15 Tablet l 13:30: should not Morral 00 be chewed or crushed. (Same as: Protonix) Protonix 0 No Notes: Memoria 1-15 Tablet l 13:30: should not Morral 00 be chewed or crushed. (Same as: Protonix) Synthroid 2021-0 No 100 Memoria 1-15 microgram, l 12:30: 1 tab, Obie 00 Route: PO, Drug form: TAB, Q630AM, Dosing Weight 77.727, kg, Start date: 09/28/21 6:30:00 [employer], Duration: 30 day, Stop date: 10/27/21 6:30:00 [employer], 0 Synthroid 2021-0 No 100 Memoria 1-15 microgram, l 12:30: 1 tab, Obie 00 Route: PO, Drug form: TAB, Q630AM, Dosing Weight 77.727, kg, Start date: 09/28/21 6:30:00 [employer], Duration: 30 day, Stop date: 10/27/21 6:30:00 [employer], 0 Synthroid 2021-0 No 100 Memoria 1-15 microgram, l 12:30: 1 tab, Obie 00 Route: PO, Drug form: TAB, Q630AM, Dosing Weight 77.727, kg, Start date: 09/28/21 6:30:00 [employer], Duration: 30 day, Stop date: 10/27/21 6:30:00 [employer], 0 pneumococca No Notes: Eric oracio l [...] - Sink; E - Municipal Trash Bin Magnesium No Notes: Memori a Sulfate 1-15 WASTE: F/P l 05:58: - Sink; E - Municipal Trash Bin Magnesium No Notes: [...] a 1-15 (Same as: l 03:44: Melatonin) Obie Saline No Notes: Memoria Flush 0.9% 1-15 (Same as: l 03:44: BD Obie Posiflush) Ondansetron No Notes: Eric oracio 1-15 (Same as: l 03:44: Zofran) MEDICATION WASTE Product Size: 4 mg Product Wasted: ___ mg Melatonin No Notes: Memori a 1-15 (Same as: l 03:44: Melatonin) Morral 00 Saline No Notes: Memoria Flush 0.9% 1-15 (Same as: l 03:44: BD Morral 00 Posiflush) Ondansetron No Notes: Eric oracio 1-15 (Same as: l 03:44: Zofran) MEDICATION WASTE Product Size: 4 mg Product Wasted: ___ mg Melatonin No Notes: Memori a 1-15 (Same as: l 03:44: Melatonin) Morral 00 Saline No Notes: Memoria Flush 0.9% 1-15 (Same as: l 03:44: BD Obie Posiflush) Hydralazine No Notes: Eric oracio 1-15 (Same as: l 03:40: Apresoline Obie 00 ) Push over 5 minutes Furosemide No Notes: Memor ia 1-15 (Same as: l 03:40: Lasix) MEDICATION WASTE Product Size: 40 mg Product Wasted: ___ mg Hydralazine No Notes: Eric oracio 1-15 (Same as: l 03:40: Apresoline Obie 00 ) Push over 5 minutes Furosemide 2022-0 No Notes: Memor ia 1-15 (Same as: l 03:40: Lasix) Morral 00 MEDICATION WASTE Product Size: 40 mg Product Wasted: ___ mg Hydralazine No Notes: Eric oracio 1-15 (Same as: l 03:40: Apresoline Morral 00 ) Push over 5 minutes Furosemide No Notes: Memor ia 1-15 (Same as: l 03:40: Lasix) Morral 00 MEDICATION WASTE Product Size: 40 mg Product Wasted: ___ mg Nitroglycer No Notes: 1 Me moria in 0.02 1-15 gram is l MG/MG 03:12: approximat Luis n Topical 00 alvarez 1 inch Ointment of nitroglyce rin ointment (20 mg NTG per gram) (Same as:Nitro-B id) Potassium No Notes: Memori a Chloride 1-15 Infuse at l 03:12: a rate of Obie 00 10 mEq/hr. (Same as: KCL) Nitroglycer No Notes: 1 Me moria in 0.02 1-15 gram is l MG/MG 03:12: approximat Luis n Topical 00 alvarez 1 inch Ointment of nitroglyce rin ointment (20 mg NTG per gram) (Same as:Nitro-B id) Potassium No Notes: Memori a Chloride 1-15 Infuse at l 03:12: a rate of Obie 00 10 mEq/hr. (Same as: KCL) Nitroglycer No Notes: 1 Me moria in 0.02 1-15 gram is l MG/MG 03:12: approximat Luis n Topical 00 alvarez 1 inch Ointment of nitroglyce rin ointment (20 mg NTG per gram) (Same as:Nitro-B id) Potassium No Notes: Memori a Chloride 1-15 Infuse at l 03:12: a rate of Obie 00 10 mEq/hr. (Same as: KCL) Lasix No Notes: Memoria 1-15 (Same as: l 03:10: Lasix) Morral 00 MEDICATION WASTE Product Size: 40 mg Product Wasted: ___ mg Lasix 2021-0 No Notes: Memoria 1-15 (Same as: l 03:10: Lasix) MEDICATION WASTE Product Size: 40 mg Product Wasted: ___ mg Lasix 2021-0 No Notes: Memoria 1-15 (Same as: l 03:10: Lasix) MEDICATION WASTE Product Size: 40 mg Product Wasted: ___ mg Aspirin 2021-0 No 325 mg, Memoria 115 Route: PO, l 02:51: ONCE, Dosing Weight 77.727, kg, Start date: 09/27/21 20:51:00 [employer], Stop date: 09/27/21 20:51:00 [employer] Aspirin 2021-0 No 325 mg, Memoria 15 Route: PO, l 02:51: ONCE, Dosing Weight 77.727, kg, Start date: 09/27/21 20:51:00 [employer], Stop date: 09/27/21 20:51:00 [employer] Aspirin 2021-0 No 325 mg, Memoria 1-15 Route: PO, l 02:51: ONCE, Dosing Weight 77.727, kg, Start date: 09/27/21 20:51:00 [employer], Stop date: 09/27/21 20:51:00 [employer] Digoxin 2021-0 No Notes: Memoria 1-15 (Same as: l 02:32: Lanoxin) Digoxin 2021-0 No Notes: Memoria 1-15 (Same as: l 02:32: Lanoxin) Digoxin 2021-0 No Notes: Memoria 1-15 (Same as: l 02:32: Lanoxin) Diltiazem 2021-0 No 60 mg, Memori a 1-15 Route: PO, l 02:27: ONCE, Dosing Weight 77.727, kg, Start date: 09/27/21 20:27:00 [employer], Stop date: 09/27/21 20:27:00 [employer] Diltiazem 2021-0 No 60 mg, Memori a 1-15 Route: PO, l 02:27: ONCE, Dosing Weight 77.727, kg, Start date: 09/27/21 20:27:00 [employer], Stop date: 09/27/21 20:27:00 [employer] Diltiazem No 60 mg, Memori a 1-15 Route: PO, l 02:27: ONCE, Dosing Weight 77.727, kg, Start date: 09/27/21 20:27:00 [employer], Stop date: 09/27/21 20:27:00 [employer] Diltiazem No Notes: Memori a 1-15 (Same [...] 0.9% 1-14 (Same as: l 22:45: BD Morral Posiflush) Saline No Notes: Memoria Flush 0.9% 1-14 (Same as: l 22:45: BD Obie 00 Posiflush) Saline No Notes: Memoria Flush 0.9% 1-14 (Same as: l 22:45: BD Obie Posiflush) metoprolol No Notes: Memor ia tartrate 1-14 (Same as: l 22:44: Lopressor) metoprolol No Notes: Memor ia tartrate 1-14 (Same as: l 22:44: Lopressor) metoprolol No Notes: Memor ia tartrate 1-14 (Same as: l 22:44: Lopressor) Obie 00 Vancomycin No 2001 mg: Me moria 1-14 infuse l 22:00: over 2.5 Morral 00 hours For adult patients only: Round to nearest 250 mg per Medical Staff approval MEDICATION WASTE Product Size: 1000 mg Product Wasted: ___ mg Ancef + No Notes: Memoria sterile 1-14 (Same As: l water 20 mL 22:00: Ancef, Herm juan m Kefzol) MEDICATION WASTE Product Size: 1000 mg Product Wasted: ___ mg Vancomycin 2021- No 2001 mg: Me moria 1-14 infuse l 22:00: over 2.5 Morral 00 hours For adult patients only: Round to nearest 250 mg per Medical Staff approval MEDICATION WASTE Product Size: 1000 mg Product Wasted: ___ mg Ancef + No Notes: Memoria sterile 1-14 (Same As: l water 20 mL 22:00: Ancef, Herm juan m Kefzol) MEDICATION WASTE Product Size: 1000 mg Product Wasted: ___ mg Vancomycin 2021- No 2001 mg: Me moria 1-14 infuse [...] 0 Yes 2 puff, Eric oracio mcg-5 1-14 INHALER, l mcg/inh 21:25: BID, # 1 Luis n inhalation 00 ea, 3 aerosol Refill(s) Dulera 100 0 Yes 2 puff, Eric oracio mcg-5 -14 INHALER, l mcg/inh 21:25: BID, # 1 Luis n inhalation 00 ea, 3 aerosol Refill(s) Dulera 100 0 Yes 2 puff, Eric oracio mcg-5 1-14 INHALER, l mcg/inh 21:25: BID, # 1 Luis n inhalation 00 ea, 3 aerosol Refill(s) Furosemide 0 Yes 40 mg, PO, M emoria 1-14 Daily, 0 l 21:24: Refill(s) Potassium 0 Yes 10 mEq, Memor ia Chloride 1-14 PO, Daily, l 21:24: 0 Refill(s) gabapentin 0 Yes 100 mg, Eric oracio 1-14 PO, BID, 0 l 21:24: Refill(s) Furosemide 0 Yes 40 mg, PO, M emoria 1-14 Daily, 0 l 21:24: Refill(s) Potassium 0 Yes 10 mEq, Memor ia Chloride 1-14 PO, Daily, l 21:24: 0 Refill(s) gabapentin 0 Yes 100 mg, Eric oracio 1-14 PO, BID, 0 l 21:24: Refill(s) Furosemide 0 Yes 40 mg, PO, M emoria 1-14 Daily, 0 l 21:24: Refill(s) Potassium 0 Yes 10 mEq, Memor ia Chloride 1-14 PO, Daily, l 21:24: 0 Refill(s) gabapentin 0 Yes 100 mg, Eric oracio 1-14 PO, BID, 0 l 21:24: Refill(s) metoprolol No 100 mg, Eric oracio tartrate 1-14 PO, BID, 0 l 21:23: Refill(s) Eliquis Yes 5 mg, PO, Memor ia 1-14 Q12H, 0 l 21:23: Refill(s) metoprolol 0 No 100 mg, Eric oracio tartrate 1-14 PO, BID, 0 l 21:23: Refill(s) Eliquis Yes 5 mg, PO, Memor ia 1-14 Q12H, 0 l 21:23: Refill(s) metoprolol 0 No 100 mg, Eric oracio tartrate 1-14 PO, BID, 0 l 21:23: Refill(s) Morral 00 Eliquis 0 Yes 5 mg, PO, Memor ia 1-14 Q12H, 0 l 21:23: Refill(s) Obie 00 Aspirin 81 2021-0 Yes 81 mg = 1 Me moria MG Enteric 1-14 tab, PO, l Coated 21:22: Daily, # Morral Tablet 00 90 tab, 3 Refill(s) Aspirin 81 0 Yes 81 mg = 1 Me moria MG Enteric 1-14 tab, PO, l Coated 21:22: Daily, # Morral Tablet 00 90 tab, 3 Refill(s) Aspirin 81 0 Yes 81 mg = 1 Me moria MG Enteric 1-14 tab, PO, l Coated 21:22: Daily, # Morral Tablet 00 90 tab, 3 Refill(s) Apixaban 2020-09 Yes Take by MO (ELIQUIS 2-06 mouth. Health PO) 12:07: 12 ASPIRIN 2020-09 Yes Take by MO ADULT PO 2-06 mouth. Health 12:07: 12 Apixaban 2020-09 Yes Take by MO (ELIQUIS 2-06 mouth. Health PO) 12:07: 12 ASPIRIN 2020-09 Yes Take by MO ADULT PO 2-06 mouth. Health 12:07: 12 Apixaban 2020-09 Yes Take by MO (ELIQUIS 2-06 mouth. Health PO) 12:07: 12 ASPIRIN 2020-09 Yes Take by MO ADULT PO 2-06 mouth. Health 12:07: 12 Apixaban 2020-09 Yes Take by MO (ELIQUIS 2-06 mouth. Health PO) 12:07: 12 ASPIRIN 2020-09 Yes Take by MO ADULT PO 2-06 mouth. Health 12:07: 12 Apixaban 2020-09 Yes Take by MO (ELIQUIS 2-06 mouth. Health PO) 12:07: 12 ASPIRIN 2020-09 Yes Take by MO ADULT PO 2-06 mouth. Health 12:07: 12 traMADol 2020-09- No [id number] 50mg Take 1 U T (Ultram) 50 09-15 11-08 tablet (50 H ealth MG tablet 00:00: 05:59 mg total) 00 :00 by mouth every 8 (eight) hours if needed for severe pain for up to 5 days. clopidogrel 2020-09 Yes 75 mg = 1 M emoria 75 MG Oral 0-19 tab, PO, l Tablet 19:20: Daily, # Morral [Plavix] 00 90 tab, 3 Refill(s) clopidogrel 2020-09 Yes 75 mg = 1 M emoria 75 MG Oral 0-19 tab, PO, l Tablet 19:20: Daily, # Morral [Plavix] 00 90 tab, 3 Refill(s) clopidogrel [...] SOLN, ONCE, Stop date: 07/02/21 12:54:00 CDT ceFAZolin 2020-09 No Route: IV, Me moria (ANES) 0-19 Drug form: l 17:54: INJ, ONCE, Stop date: 07/02/21 12:54:00 CDT midazolam 2020-09 No Route: IV, Me moria (ANES) 0-19 Drug form: l 17:54: SOLN, ONCE, Stop date: 07/02/21 12:54:00 CDT ceFAZolin [...] 13:20:00 CDT vancomycin 2020-09 No Route: IV, M emoria (ANES) 1000 0-19 Drug form: l mg 17:20: INJ, Start date: 07/02/21 12:20:00 CDT, Stop date: 07/02/21 13:20:00 CDT vancomycin 2020-09 No Route: IV, M [...] l de 100 MG 15:42: Bedtime, # He rmann Oral Tablet 00 30 tab, 0 Refill(s) duloxetine 2020-09 Yes 60 mg = 1 Me moria 60 MG 0-19 cap, PO, l Enteric 15:42: Daily, # Luis n Coated 00 30 cap, 0 Capsule Refill(s) [Cymbalta] Trazodone 2020-09 Yes 100 mg = 1 Me moria Hydrochlori 0-19 tab, PO, l de 100 MG 15:42: Bedtime, # He rmann Oral Tablet 00 30 tab, 0 Refill(s) duloxetine 2020-09 Yes 60 mg = 1 Me moria 60 MG 0-19 cap, PO, l Enteric 15:42: Daily, # Luis n Coated 00 30 cap, 0 Capsule Refill(s) [Cymbalta] Trazodone 2020-09 Yes 100 mg = 1 Me moria Hydrochlori 0-19 tab, PO, l de 100 MG 15:42: Bedtime, # He rmann Oral Tablet 00 30 tab, 0 [...] tab, PO, l tablet 15:41: Daily, # Morral 00 90 tab, 0 Refill(s) cyclobenzap 2020-09 Yes 10 mg = 1 M emoria rine 10 mg 0-19 tab, PO, l oral tablet 15:40: Bedtime, 0 Morral 00 Refill(s) metoprolol 2020-09 Yes 50 mg [...] tab, PO, l tablet 15:40: Daily, # Morral 00 30 tab, 0 Refill(s) cyclobenzap 2020-09 [...] tab, PO, l tablet 15:40: Daily, # Morral 00 30 tab, 0 Refill(s) Esomeprazol 2020-09 [...] 0-19 Rate: 75 l 0.0014 15:19: ml/hr, Morral MEQ/ML / 00 Infuse Potassium over: 13.3 Chloride hr, Route: 0.004 IV, Total MEQ/ML / Volume: Sodium 1,000, Chloride Start 0.103 date: MEQ/ML / 07/02/21 Sodium 10:19:00 Lactate CDT, 0.028 Duration: MEQ/ML 1 day, Injectable Stop date: Solution 07/03/21 10:18:00 CDT, 0 Calcium 2020-09 No 1,000 mL, Memor ia Chloride 0-19 Rate: 75 l 0.0014 15:19: ml/hr, Morral MEQ/ML / 00 Infuse Potassium over: 13.3 [...] moria 0-18 infuse l 21:00: over 2.5 Obie 00 hours For adult patients only: Round to nearest 250 mg per Medical Staff approval MEDICATION WASTE Product Size: 1000 mg Product Wasted: ___ mg Ancef + 2020-09 No Notes: Memoria sterile 0-18 (Same As: l water 20 mL 21:00: Ancef, Herm juan m Kefzol) MEDICATION WASTE Product Size: 1000 mg Product Wasted: ___ mg Vancomycin 2020-09 No 2000 mg: Me moria 0-18 infuse l 21:00: over 2.5 Obie 00 hours For adult [...] moria 0-18 infuse l 21:00: over 2.5 Morral 00 hours For adult patients only: Round to nearest 250 mg per Medical Staff approval MEDICATION WASTE Product Size: 1000 mg Product Wasted: ___ mg traMADol 2020-09- No [id number] 50mg Q6H Take 1 U T (Ultram) 50 0-15 10-23 tablet (50 H ealth MG tablet 00:00: 04:59 mg total) 00 :00 by mouth every 6 (six) hours if needed for severe pain for up to 7 days. amLODIPine Yes [facility] (Norvasc) 9 [facility] 10 MG 00:00: tablet 00 levothyroxi 0 Yes [facility] (Synthroid, 00:00: Levoxyl) 00 100 MCG tablet tamsulosin Yes [facility] (Flomax) 06-02 Health 0.4 MG 24 00:00: hr capsule 00 amLODIPine 0 Yes [facility] (Norvasc) [facility] 10 MG 00:00: tablet 00 levothyroxi 2020-0 Yes [facility] (Synthroid, 00:00: Levoxyl) 00 100 MCG tablet tamsulosin 0 Yes [facility] (Flomax) 9 [facility] 0.4 MG 24 00:00: hr capsule 00 amLODIPine 2020-0 Yes [facility] (Norvasc) 9 [facility] 10 MG 00:00: tablet 00 levothyroxi 2020-0 Yes [facility] (Synthroid, 00:00: [...] Name Observation Time Observation Value Comments Source HEIGHT 2023-03-16 19:20:00 167.6 cm WEIGHT 2023-03-16 19:20:00 64.32 kg HEIGHT 2023-03-16 19:20:00 167.6 cm WEIGHT 2023-03-16 19:20:00 64.32 kg HEIGHT 2023-03-16 19:20:00 167.6 cm WEIGHT 2023-03-16 19:20:00 64.32 kg Heart rate 2023-03-21 11:57:00 77 /min [facility] Systolic blood 2023-03-21 11:35:00 143 mm[Hg] [facility] Diastolic blood 2023-03-21 11:35:00 77 mm[Hg] [facility] Body temperature 2023-03-21 11:35:00 36.61 [facility] Respiratory rate 2023-03-21 11:35:00 20 /min [facility] Oxygen saturation in 2023-03-21 11:35:00 98 /min [facility] Arterial blood by Medical Ce nter Pulse oximetry Body height 2023-03-16 19:20:00 167.6 cm [facility] Body weight 2023-03-16 19:20:00 64.32 kg [facility] BMI 2023-03-16 19:20:00 22.89 kg/m2 [facility] Body weight 2022-07-09 14:00:00 73.936 kg [facility] BMI 2022-07-09 14:00:00 25.53 kg/m2 [facility] Body height 2022-07-09 14:00:00 170.2 cm [facility] Systolic (mm Hg) 2022-05-23 19:00:00 Ericting ingram Morral Diastolic (mm Hg) 2022-05-23 19:00:00 Mem orial Morral Heart Rate 2022-05-23 18:20:00 [facility] Respitory Rate 2022-05-23 18:20:00 Memori al Morral Height 2022-05-23 18:20:00 167.64 cm [facility] Weight 2022-05-23 18:20:00 [facility] BMI Calculated 2022-05-23 18:20:00 Memori al Morral Systolic (mm Hg) 2022-04-10 13:18:00 Erci rial Obie Diastolic (mm Hg) 2022-04-10 13:18:00 Mem orial Morral Heart Rate 2022-04-10 13:18:00 [facility] Respitory Rate 2022-04-10 13:18:00 Memori al Morral Height 2022-04-10 13:18:00 165.1 cm [facility] Weight 2022-04-10 13:18:00 [facility] BMI Calculated 2022-04-10 13:18:00 Memori al Obie Systolic (mm Hg) 2022-03-10 16:31:00 Eric rial Morral Diastolic (mm Hg) 2022-03-10 16:31:00 Mem orial Morral Heart Rate 2022-03-10 16:31:00 [facility] Respitory Rate 2022-03-10 16:31:00 Memori al Obie Height 2022-03-10 16:31:00 170.18 cm [facility] Weight 2022-03-10 16:31:00 [facility] BMI Calculated 2022-03-10 16:31:00 Memori al Morral Temperature Oral (F) 2021-11-11 17:48:00 97.9 F [facility] Heart Rate 2021-11-11 17:48:00 [facility] Respitory Rate 2021-11-11 17:48:00 Memori al Obie Systolic (mm Hg) 2021-11-11 17:48:00 Eric rial Morral Diastolic (mm Hg) 2021-11-11 17:48:00 Mem orial Obie Respitory Rate 2021-11-11 14:13:00 Memori al Obie Systolic (mm Hg) 2021-11-11 14:13:00 Eric rial Obie Diastolic (mm Hg) 2021-11-11 14:13:00 Mem orial Obie Temperature Oral (F) 2021-11-11 14:13:00 98.4 F [facility]ie Respitory Rate 2021-11-11 13:45:00 Memori al Morral Temperature Oral (F) 2021-11-11 09:08:00 98.2 F [facility] Heart Rate 2021-11-11 09:08:00 [facility] Respitory Rate 2021-11-11 09:08:00 Memori al Morral Systolic (mm Hg) 2021-11-11 09:08:00 Eric rial Morral Diastolic (mm Hg) 2021-11-11 09:08:00 Mem orial Obie Systolic (mm Hg) 2021-11-11 05:21:00 Eirc rial Morral Diastolic (mm Hg) 2021-11-11 05:21:00 Mem orial Obie Heart Rate 2021-11-11 05:21:00 [facility] Temperature Oral (F) 2021-11-11 05:21:00 98.3 F [facility] Respitory Rate 2021-11-11 05:21:00 Memori al Obie Respitory Rate 2021-11-11 02:00:00 Memori al Obie Heart Rate 2021-11-11 01:41:18 [facility] Systolic (mm Hg) 2021-11-11 01:41:07 Eric rial Morral Diastolic (mm Hg) 2021-11-11 01:41:07 Mem orial Obie Temperature Oral (F) 2021-11-11 01:40:40 98.8 F [facility] Height 2021-11-08 10:09:00 170.18 cm [facility] Height 2021-11-08 06:40:00 170.18 cm [facility] Weight 2021-11-08 06:40:00 [facility] BMI Calculated 2021-11-08 06:40:00 Memori al Morral Heart Rate 2021-11-04 15:51:00 [facility] Obie Systolic (mm Hg) 2021-11-04 15:51:00 Eric rial Morral Diastolic (mm Hg) 2021-11-04 15:51:00 Mem orial Obie Height 2021-11-04 15:51:00 170.18 cm [facility] Weight 2021-11-04 15:51:00 [facility] BMI Calculated 2021-11-04 15:51:00 Memori al Morral Heart Rate 2021-10-22 13:43:37 [facility]ie Systolic (mm Hg) 2021-10-22 13:43:33 Eric rial Morral Diastolic (mm Hg) 2021-10-22 13:43:33 Mem orial Morral Heart Rate 2021-10-22 13:43:33 [facility] Temperature Oral (F) 2021-10-22 13:42:37 98.1 F [facility] Respitory Rate 2021-10-22 12:54:00 Memori al Obie Heart Rate 2021-10-22 05:29:53 [facility]ie Systolic (mm Hg) 2021-10-22 05:29:29 Eric rial Morral Diastolic (mm Hg) 2021-10-22 05:29:29 Mem orial Morral Temperature Oral (F) 2021-10-22 05:29:23 98.3 F [facility] Systolic (mm Hg) 2021-10-22 03:16:00 Eric rial Morral Diastolic (mm Hg) 2021-10-22 03:16:00 Mem orial Obie Respitory Rate 2021-10-22 01:15:00 Memori al Morral Temperature Oral (F) 2021-10-21 21:49:32 97.4 F [facility] Respitory Rate 2021-10-21 14:10:00 Memori al Morral Temperature Oral (F) 2021-10-21 05:14:00 98.6 F [facility] Heart Rate 2021-10-21 05:14:00 [facility] Respitory Rate 2021-10-21 05:14:00 Memori al Obie Systolic (mm Hg) 2021-10-21 05:14:00 Eric rial Obie Diastolic (mm Hg) 2021-10-21 05:14:00 Mem orial Obie Systolic (mm Hg) 2021-10-21 04:17:00 Eric rial Obie Diastolic (mm Hg) 2021-10-21 04:17:00 Mem orial Obie Heart Rate 2021-10-21 04:17:00 [facility] Respitory Rate 2021-10-21 01:49:00 Memori al Morral Temperature Oral (F) 2021-10-20 21:41:00 98.7 F [facility] Heart Rate 2021-10-20 21:41:00 [facility] Systolic (mm Hg) 2021-10-20 21:41:00 Eric rial Morral Diastolic (mm Hg) 2021-10-20 21:41:00 Mem orial Obie Respitory Rate 2021-10-20 13:48:00 Memori al Obie Temperature Oral (F) 2021-10-20 13:27:46 98.4 F [facility] Heart Rate 2021-10-14 05:25:01 [facility] Systolic (mm Hg) 2021-10-14 05:24:53 Eric rial Morral Diastolic (mm Hg) 2021-10-14 05:24:53 Mem orial Obie Heart Rate 2021-10-14 05:24:53 [facility] Obie Temperature Oral (F) 2021-10-14 05:24:34 100 F [facility] Temperature Oral (F) 2021-10-14 04:22:00 98.6 F [facility] Respitory Rate 2021-10-14 01:00:00 Memori al Obie Heart Rate 2021-10-13 22:10:06 [facility] Respitory Rate 2021-10-13 22:10:06 Memori al Morral Systolic (mm Hg) 2021-10-13 22:09:57 Eric rial Obie Diastolic (mm Hg) 2021-10-13 22:09:57 Mem orial Morral Temperature Oral (F) 2021-10-13 22:09:47 100.4 F [facility] Obie Systolic (mm Hg) 2021-10-13 21:18:37 Eric rial Morral Diastolic (mm Hg) 2021-10-13 21:18:37 Mem orial Morral Respitory Rate 2021-10-13 13:33:00 Memori al Obie Height 2021-10-12 11:21:00 170.1 cm [facility] Height 2021-10-11 23:51:00 167.64 cm [facility] Weight 2021-10-11 23:51:00 [facility] BMI Calculated 2021-10-11 23:51:00 Memori al Morral Respitory Rate 2021-10-03 16:20:00 Memori al Morral Systolic (mm Hg) 2021-10-03 16:20:00 Eric rial Morral Diastolic (mm Hg) 2021-10-03 16:20:00 Mem orial Morral Heart Rate 2021-09-30 21:26:42 [facility] Systolic (mm Hg) 2021-09-30 21:26:10 Eric rial Obie Diastolic (mm Hg) 2021-09-30 21:26:10 Mem orial Obie Heart Rate 2021-09-30 21:26:10 [facility]ie Temperature Oral (F) 2021-09-30 21:24:46 98 F [facility] Respitory Rate 2021-09-30 14:01:00 Memori al Morral Heart Rate 2021-09-30 13:52:01 [facility] Systolic (mm Hg) 2021-09-30 13:51:46 Eric rial Obie Diastolic (mm Hg) 2021-09-30 13:51:46 Mem orial Obie Temperature Oral (F) 2021-09-30 13:50:49 98 F [facility] Systolic (mm Hg) 2021-09-30 06:36:00 Eric rial Obie Diastolic (mm Hg) 2021-09-30 06:36:00 Mem orial Obie Heart Rate 2021-09-30 06:36:00 [facility] Heart Rate 2021-09-30 05:04:05 [facility] Systolic (mm Hg) 2021-09-30 05:03:59 Eric rial Obie Diastolic (mm Hg) 2021-09-30 05:03:59 Mem orial Obie Heart Rate 2021-09-30 05:03:59 [facility] Temperature Oral (F) 2021-09-30 05:03:36 97.1 F [facility] Systolic (mm Hg) 2021-09-30 02:40:00 Eric rial Obie Diastolic (mm Hg) 2021-09-30 02:40:00 Mem orial Morral Respitory Rate 2021-09-30 02:18:00 Memori al Morral Temperature Oral (F) 2021-09-29 22:44:45 97.7 F [facility] Respitory Rate 2021-09-29 14:13:00 Memori al Morral Height 2021-09-29 10:04:00 170.18 cm [facility] Weight 2021-09-29 10:04:00 [facility] BMI Calculated 2021-09-29 10:04:00 Memori al Obie Respitory Rate 2021-09-29 00:52:00 Memori al Morral Temperature Oral (F) 2021-09-28 13:16:08 97.4 F [facility] Height 2021-09-28 08:50:00 170.18 cm [facility] Weight 2021-09-28 08:50:00 [facility] BMI Calculated 2021-09-28 08:50:00 Memori al Morral BMI Calculated 2021-09-27 22:45:00 Memori al Obie Height 2021-09-27 22:19:00 170.18 cm [facility] Weight 2021-09-27 22:19:00 [facility] Heart Rate 2021-09-27 22:10:00 [facility] Respitory Rate 2021-09-27 22:10:00 Memori al Morral Systolic (mm Hg) 2021-09-27 22:10:00 Eric rial Obie Diastolic (mm Hg) 2021-09-27 22:10:00 Mem orial Morral Height 2021-09-27 21:44:00 170.18 cm [facility] Weight 2021-09-27 21:44:00 [facility] BMI Calculated 2021-09-27 21:44:00 Memori al Obie Respitory Rate 2021-07-02 22:00:00 Memori al Morral Systolic (mm Hg) 2021-07-02 22:00:00 Eric rial Obie Diastolic (mm Hg) 2021-07-02 22:00:00 Mem orial Obie Respitory Rate 2021-07-02 21:30:00 Memori al Obie Systolic (mm Hg) 2021-07-02 21:30:00 Eric rial Morral Diastolic (mm Hg) 2021-07-02 21:30:00 Mem orial Obie Respitory Rate 2021-07-02 21:00:00 Memori al Obie Systolic (mm Hg) 2021-07-02 21:00:00 Eric rial Morral Diastolic (mm Hg) 2021-07-02 21:00:00 Mem orial Morral Heart Rate 2021-07-02 19:08:00 [facility] Heart Rate 2021-07-02 16:17:00 [facility] Height 2021-07-02 15:19:00 170.18 cm [facility] Weight 2021-07-02 15:19:00 [facility] BMI Calculated 2021-07-02 15:19:00 Verna Valadez Procedures Procedure Date / Time Performing Clinician Source Performed POCT-ACT 2023-03-21 04:58:00 Rafy Alexa [facility] BASIC METABOLIC PANEL 2023-03-21 04:57:00 Alba Bruner [facility] CBC (HEMOGRAM ONLY) 2023-03-21 04:57:00 Alba Bruner [facility] POCT-ACT 2023-03-21 03:09:00 [facility] POCT-ACT 2023-03-21 00:09:00 Rafy [facility] POCT-ACT 2023-03-20 21:59:00 Rafy Ho[facility] POCT-ACT 2023-03-20 19:48:00 Rafy Hoag [facility] POCT-ACT 2023-03-20 15:03:00 Rafy Hoag [facility] CATHETERIZATION, HEART, 2023-03-20 13:57:00 Julito Roberts [facility] LEFT, WITH PERCUTANEOUS [facility] CORONARY INTERVENTION CBC W/PLT COUNT & AUTO 2023-03-20 12:19:00 [facility] HIGH SENSITIVITY TROPONIN I 2023-03-20 12:19:00 Rafy Hoag [facility] LACTIC ACID, VENOUS 2023-03-20 12:19:00 Rafy [facility] CBC W/PLT COUNT & AUTO 2023-03-20 12:19:00 Rafy [facility] COMPREHENSIVE METABOLIC 2023-03-20 12:19:00 Rafy [facility] POCT-BLOOD GASES, VENOUS 2023-03-20 12:19:00 Ali, Hiba [facility] POCT-SODIUM 2023-03-20 12:19:00 [facility] POCT-POTASSIUM 2023-03-20 12:19:00 [facility] POCT-HEMOGLOBIN 2023-03-20 12:19:00 Rafy Hoag [facility] POCT-HEMATOCRIT 2023-03-20 12:19:00 Rafy Ho[facility] POCT-GLUCOSE 2023-03-20 12:19:00 Rafy Hoag [facility] POCT-GLUCOSE METER 2023-03-20 11:57:00 Rafy [facility] ABORH, MANUAL 2023-03-20 05:34:00 Arabella Muñoz [facility] TYPE AND SCREEN, AUTOMATED 2023-03-20 04:16:00 Alba Bruner [facility] BASIC METABOLIC PANEL 2023-03-20 04:16:00 Alba Bruner I [facility] CBC (HEMOGRAM ONLY) 2023-03-20 04:16:00 Alba Bruner [facility] APTT 2023-03-20 04:16:00 Alyson Wall [facility] APTT 2023-03-19 20:38:00 Alyson Wall [facility] APTT 2023-03-19 14:37:00 Alyson Wall [facility] APTT 2023-03-19 12:36:00 Alyson Wall [facility] APTT 2023-03-19 05:27:00 Alyson Wall [facility] APTT 2023-03-18 22:49:00 Alyson Wall [facility] APTT 2023-03-18 16:45:00 Alyson Wall [facility] ARTERIAL DOPPLER LEGS 2023-03-18 15:45:00 Julito Roberts [facility] BILATERAL [facility] CAROTID DOPPLER BILATERAL 2023-03-18 15:45:00 Julito Roberts [facility] 2D ECHO W/ DOPPLER 2023-03-18 14:29:00 Alba Bruner [facility] (CW/PW/COLOR) [facility] APTT 2023-03-18 06:22:00 Alyson Wall [facility] CBC (HEMOGRAM ONLY) 2023-03-18 04:20:00 Alyson Wall [facility] BASIC METABOLIC PANEL 2023-03-18 04:20:00 Alyson Wall [facility] MAGNESIUM 2023-03-18 04:20:00 Alyson Wall [facility] TSH/FREE T4 IF INDICATED 2023-03-18 04:20:00 Julito Roberts [facility] IRON, TIBC, % SAT. (WITHOUT 2023-03-18 04:20:00 Alba Bruner [facility] FERRITIN) Medical Center FERRITIN 2023-03-18 04:20:00 Alba Bruner [facility] APTT 2023-03-18 00:14:00 Alyson Wall [facility] B-TYPE NATRIURETIC FACTOR 2023-03-17 17:24:00 Alyson Wall [facility] (BNP) [facility] APTT 2023-03-17 17:24:00 Alyson Wall [facility] XR CHEST 1 VIEW PORTABLE / 2023-03-17 15:09:00 Alba Bruner [facility] BEDSIDE [facility] APTT 2023-03-17 10:19:00 Miri Keller [facility] ECG 12-LEAD 2023-03-17 05:27:51 Julito Roberts [facility] ECG 12-LEAD 2023-03-17 05:27:51 Unknown, Hl7 Doctor [facility] APTT 2023-03-17 04:25:00 [facility] CBC (HEMOGRAM ONLY) 2023-03-17 04:25:00 [facility] COMPREHENSIVE METABOLIC 2023-03-17 04:25:00 [facility] HIGH SENSITIVITY TROPONIN I 2023-03-17 04:25:00 [facility] PLATELET COUNT 2023-03-16 21:55:00 [facility] APTT 2023-03-16 21:55:00 [facility] LIPID PANEL 2023-03-16 21:55:00 [facility] CARDIAC CATH REPORT - SCAN 2023-03-16 00:00:00 Provider, [facility] EKG-SCANNED 2023-03-16 00:00:00 Provider, [facility] VASCULAR DIAGRAM -SCAN 2023-03-16 00:00:00 Provider, [facility] CT ANGIOGRAM ABDOMINAL 2022-07-09 15:35:12 Richie [facility] AORTA AND BILATERAL ILIOFEMORAL RUNOFF W WO CONTRAST POC CREATININE 2022-07-09 14:13:00 [facility] ESTIMATED GFR 2022-07-09 14:13:00 [facility] [id number] 2021-11-20 00:00:00 ALDMO [facility] Aortofemoral to popliteal [facility] vascular bypass Coronary artery [facility] closure<sup>1</sup> Placement of [facility] stent<sup>1</sup> Neck procedure [facility] Hemorrhoidectomy [facility] Hysterectomy [facility] Cholecystectomy [facility] Plan of Care Planned Activity Planned Date Details Comments Source Future Scheduled 2024-03-16 Tobacco Cessation [facility] Test 00:00:00 [facility] (12+) [code = Tobacco Cessation Counseling and Screening (12+)] Future Scheduled 2023-07-01 Hepatitis C screening [facility] Test 05:50:12 (procedure) [code = [id number]] Future Scheduled 2023-07-01 SHINGLES VACCINES (1 Met [facility] Test 05:50:12 of 2) [code = SHINGLES VACCINES (1 of 2)] Future Scheduled 2023-07-01 RSV VACCINES > 60 YR [facility] Test 05:50:12 (1 - 1-dose 60+ series) [code = RSV VACCINES > 60 YR (1 - 1-dose 60+ series)] Future Scheduled 2023-07-01 65+ [facility] 05:50:12 VACCINE (2 - PCV) [code = 65+ PNEUMOCOCCAL VACCINE (2 - PCV)] Future Scheduled 2023-07-01 INFLUENZA VACCINE (#1) [facility] 05:50:12 [code = INFLUENZA VACCINE (#1)] Future Scheduled 2023-07-01 COVID-19 VACCINE (#1) [facility] Test 05:50:12 [code = COVID-19 VACCINE (#1)] Future Scheduled 2023-05-15 Influenza Vaccine (#1) [facility] Test 00:00:00 [code = Influenza Medical Ce nter Vaccine (#1)] Future Scheduled 2023-03-04 COVID-19 VACCINE (#1) [facility] Test 06:53:51 [code = COVID-19 VACCINE (#1)] Future Scheduled 2023-03-04 Hepatitis C screening [facility] Test 06:53:51 (procedure) [code = [id number]] Future Scheduled 2023-03-04 SHINGLES VACCINES (1 Met [facility] Test 06:53:51 of 2) [code = SHINGLES VACCINES (1 of 2)] Future Scheduled 2023-03-04 65+ [facility] Test 06:53:51 VACCINE (2 - PCV) [code = 65+ PNEUMOCOCCAL VACCINE (2 - PCV)] Future Scheduled 2023-03-04 INFLUENZA VACCINE Method [facility] Test 06:53:51 [code = INFLUENZA VACCINE] Future Scheduled 2023-02-23 COVID-19 VACCINE (#1) [facility] Test 07:20:59 [code = COVID-19 VACCINE (#1)] Future Scheduled 2023-02-23 Hepatitis C screening [facility] Test 07:20:59 (procedure) [code = 523460155] Future Scheduled 2023-02-23 SHINGLES VACCINES (1 Met [facility] Test 07:20:59 of 2) [code = SHINGLES VACCINES (1 of 2)] Future Scheduled 2023-02-23 65+ PNEUMOCOCCAL Methodi Hospital Test 07:20:59 VACCINE (2 - PCV) [code = 65+ PNEUMOCOCCAL VACCINE (2 - PCV)] Future Scheduled 2023-02-23 INFLUENZA VACCINE Method is Hospital Test 07:20:59 [code = INFLUENZA VACCINE] Future Scheduled 2023-01-22 COVID-19 VACCINE (#1) [facility] Hospital Test 16:29:02 [code = COVID-19 VACCINE (#1)] Future Scheduled 2023-01-22 Hepatitis C screening [facility] Hospital Test 16:29:02 (procedure) [code = 108492763] Future Scheduled 2023-01-22 SHINGLES VACCINES (1 Met [facility] Test 16:29:02 of 2) [code = SHINGLES VACCINES (1 of 2)] Future Scheduled 2023-01-22 65+ PNEUMOCOCCAL [facility] Hospital Test 16:29:02 VACCINE (2 - PCV) [code = 65+ PNEUMOCOCCAL VACCINE (2 - PCV)] Future Scheduled 2023-01-22 INFLUENZA VACCINE Method [facility] Hospital Test 16:29:02 [code = INFLUENZA VACCINE] Future Scheduled 2022-11-19 COVID-19 VACCINE (#1) [facility] Hospital Test 07:00:50 [code = COVID-19 VACCINE (#1)] Future Scheduled 2022-11-19 Hepatitis C screening [facility] Hospital Test 07:00:50 (procedure) [code = [id number]] Future Scheduled 2022-11-19 SHINGLES VACCINES (1 Met [facility] Test 07:00:50 of 2) [code = SHINGLES VACCINES (1 of 2)] Future Scheduled 2022-11-19 INFLUENZA VACCINE Method is Hospital Test 07:00:50 [code = INFLUENZA VACCINE] Future Scheduled 2022-11-19 65+ PNEUMOCOCCAL [facility] Hospital Test 07:00:50 VACCINE (2 - PCV) [code = 65+ PNEUMOCOCCAL VACCINE (2 - PCV)] Future Scheduled 2022-11-19 COVID-19 VACCINE (#1) [facility] Test 07:00:50 [code = COVID-19 VACCINE (#1)] Future Scheduled 2022-11-19 [facility] Test 07:00:50 (procedure) [code = [id number]] Future Scheduled 2022-11-19 SHINGLES VACCINES (1 Met [facility] Test 07:00:50 of 2) [code = SHINGLES VACCINES (1 of 2)] Future Scheduled 2022-11-19 INFLUENZA VACCINE Method ist Hospital Test 07:00:50 [code = INFLUENZA VACCINE] Future Scheduled 2022-11-19 65+ PNEUMOCOCCAL [facility] Hospital Test 07:00:50 VACCINE (2 - PCV) [code = 65+ PNEUMOCOCCAL VACCINE (2 - PCV)] Future Scheduled 2022-10-09 COVID-19 VACCINE (#1) [facility] Test 11:17:54 [code = COVID-19 VACCINE (#1)] Future Scheduled 2022-10-09 [facility]atitis C [facility] Test 11:17:54 (procedure) [code = 442763709] Future Scheduled 2022-10-09 SHINGLES VACCINES (1 Met [facility] Test 11:17:54 of 2) [code = SHINGLES VACCINES (1 of 2)] Future Scheduled 2022-10-09 INFLUENZA VACCINE Method ist Hospital Test 11:17:54 [code = INFLUENZA VACCINE] Future Scheduled 2022-10-09 65+ PNEUMOCOCCAL [facility] Hospital Test 11:17:54 VACCINE (2 - PCV) [code = 65+ PNEUMOCOCCAL VACCINE (2 - PCV)] Future Scheduled 2022-09-28 COVID-19 VACCINE (#1) [facility] Test 10:31:23 [code = COVID-19 VACCINE (#1)] Future Scheduled 2022-09-28 [facility] Test 10:31:23 (procedure) [code = 703875812] Future Scheduled 2022-09-28 SHINGLES VACCINES (1 Met [facility] Test 10:31:23 of 2) [code = [...] [facility] Test 10:31:23 (procedure) [code = 128530636] Future Scheduled 2022-09-28 SHINGLES VACCINES (1 Met [facility] Test 10:31:23 of 2) [code = SHINGLES VACCINES (1 of 2)] Future Scheduled 2022-09-28 INFLUENZA VACCINE Method ist Hospital Test 10:31:23 [code = INFLUENZA VACCINE] Future Scheduled 2022-09-28 65+ [facility]OCOCCAL [facility] Test 10:31:23 VACCINE (2 - PCV) [code = 65+ PNEUMOCOCCAL VACCINE (2 - PCV)] Future Scheduled 2022-09-[address] [facility] Test 00:00:00 WELLNESS (YEAR 2 or Medical Center FIRST YEAR if no IPPE) [code = MEDICARE ANNUAL WELLNESS (YEAR 2 or FIRST YEAR if no IPPE)] Future Scheduled 2022-09-[address] [facility] Test 00:00:00 (12+) [code = Medical Center DEPRESSION SCREENING (12+)] Future Scheduled 2022-09-14 FALLS RISK SCREENING [facility] Test 00:00:00 [code = FALLS RISK Medical C enter SCREENING] Future Scheduled 2022-08-27 COVID-19 VACCINE (#1) [facility] Test 06:40:57 [code = COVID-19 VACCINE (#1)] Future Scheduled 2022-08-27 [facility] Test 06:40:57 (procedure) [code = 587436871] Future Scheduled 2022-08-27 SHINGLES VACCINES (1 Met [...] [facility] Test 06:40:57 (procedure) [code = 489476461] Future Scheduled 2022-08-27 SHINGLES VACCINES (1 Met [...] PCV)] Future Scheduled 2022-08-27 COVID-19 [facility]ACCINE (#1) [facility] 06:40:57 [code = COVID-19 VACCINE (#1)] Future Scheduled 2022-08-27 [facility] Test 06:40:57 (procedure) [code = 886106068] Future Scheduled 2022-08-27 SHINGLES VACCINES (1 Met [...] [facility] Test 06:40:57 (procedure) [code = 523280846] Future Scheduled 2022-08-27 [facility] 06:40:57 of 2) [code = SHINGLES VACCINES (1 of 2)] Future Scheduled 2022-08-27 INFLUENZA VACCINE Method ist Hospital Test 06:40:57 [code = INFLUENZA VACCINE] Future Scheduled 2022-08-27 65+ PNEUMOCOCCAL Method[facility] Hospital Test 06:40:57 VACCINE (2 - PCV) [code = 65+ PNEUMOCOCCAL VACCINE (2 - PCV)] Future Scheduled 2022-08-27 COVID-19 VACCINE (#1) [facility] Test 06:40:57 [code = COVID-19 VACCINE (#1)] Future Scheduled 2022-08-27 Hepatitis C screening [facility] Hospital Test 06:40:57 (procedure) [code = 174227648] Future Scheduled 2022-08-27 SHINGLES VACCINES (1 Met [...] PCV)] Future Scheduled 2022-08-27 COVID-19 VACCINE (#1) [facility] Test 06:40:57 [code = COVID-19 VACCINE (#1)] Future Scheduled 2022-08-27 Hepatitis C screening [facility] Hospital Test 06:40:57 (procedure) [code = 081273471] Future Scheduled 2022-08-27 SHINGLES VACCINES (1 Met [...] series)] Future Scheduled 2022-07-17 COVID-19 VACCINE (#1) [facility] Hospital Test 07:30:39 [code = COVID-19 VACCINE (#1)] Future Scheduled 2022-07-17 Hepatitis C screening [facility] Hospital Test 07:30:39 (procedure) [code = 409409848] Future Scheduled 2022-07-17 SHINGLES VACCINES (1 Met [facility] Test 07:30:39 of 2) [code = SHINGLES VACCINES (1 of 2)] Future Scheduled 2022-07-17 INFLUENZA VACCINE Method [facility] Test 07:30:39 [code = INFLUENZA [...] series)] Future Scheduled 2022-07-17 COVID-19 VACCINE (#1) [facility] Hospital Test 07:30:39 [code = COVID-19 VACCINE (#1)] Future Scheduled 2022-07-17 Hepatitis C screening [facility] Test 07:30:39 (procedure) [code = 069518274] Future Scheduled 2022-07-17 SHINGLES VACCINES (1 Met [facility] Test 07:30:39 of 2) [code = SHINGLES VACCINES (1 of 2)] Future Scheduled 2022-07-17 INFLUENZA VACCINE Method [facility] Test 07:30:39 [code = INFLUENZA VACCINE] Future Scheduled 2022-07-17 65+ PNEUMOCOCCAL [facility] Hospital Test 07:30:39 VACCINE (2 - PCV) [code = 65+ PNEUMOCOCCAL VACCINE (2 - PCV)] Future Scheduled 1994-01-18 SHINGLES VACCINES ([address] [facility] Test 00:00:00 of 2) [code = SHINGLES Medic al Center VACCINES (1 of 2)] Future Scheduled 1963-01-18 DTAP/TDAP/TD VACCINES [facility] Test 00:00:00 (1 - Tdap) [code = Medical C enter DTAP/TDAP/TD VACCINES (1 - Tdap)] Future Scheduled 1962-01-18 HEPATITIS C SCREENING [facility] Test 00:00:00 [code = HEPATITIS C Medical Center SCREENING] Future Scheduled 1950-01-18 PNEUMOCOCCAL 65+ YRS [facility] Test 00:00:00 (1 - PCV) [code = Medical Ce nter PNEUMOCOCCAL 65+ YRS (1 - PCV)] Future Scheduled 1944 COVID-19 VACCINE (#1) [facility] Test 00:00:00 [code = COVID-[address] VACCINE (#1)] Future Scheduled 1944 DXA SCAN [code = DXA [facility] Test 00:00:00 SCAN] Medical Center Encounters Start End Encounter Admission Attending Care Care Encounter Source Date/Time Date/Time Type Type Clinicians Facility Department ID 2023-03-18 Inpatient ER ARMANDO SLE SLE [id number] [facility] 12:56:05 JULITO 2023-03-18 Inpatient ER ARMANDO SLEH SLEH [id number] [facility] 12:55:57 JULITO 2023-03-18 Inpatient ER MAE SLEH SLEH [id number] [facility] 11:16:35 ALYSON 2023-03-17 Inpatient ER MAE SLEH SLEH [id number] [facility] 12:40:00 ALYSON 2023-03-02 Outpatient [facility] [id number] [place] 14:34:33 [id number] Health 2022-10-13 Outpatient 3 [id number] ENCPL CRD [id number] [facility] 09:51:27 0130 [facility] [place] 2022-09-26 Outpatient 3 [id number] ENCPL CRD [id number] [facility] 10:45:58 0113 [facility] [place] 2022-09-25 Outpatient 3 [id number] ENCPL REF [id number] [facility] 12:30:18 0112 [facility] [place] 2022-04-03 Outpatient DANIA CONNELL MHSE [id number] 15:59:49 [facility] 2021-11-21 Outpatient [facility] [id number] [place] 10:56:53 Health 2021-11-21 Outpatient [facility] [id number] [place] 10:55:46 Health 2021-10-22 Outpatient 3 [id number] ENCPL CRD [id number] [facility] 10:32:05 0208 [facility] [place] 2021-10-16 Outpatient 3 [id number] ENCPL REF [id number] [facility] 10:31:34 0202 [facility] [place] 2021-10-01 Outpatient GLADIS [facility] [id number] [place] 01:05:41 [facility] 2021-09-27 Inpatient GLADIS, MHSE MHSE [id number] MH 14:57:03 [facility] 2021-09-24 Outpatient GLADIS, [facility] [id number] [place] 14:24:58 [facility] 2021-09-16 Outpatient [facility] [id number] [place] 08:56:13 [facility] 2021-09-16 Outpatient [facility] [id number] [place] 08:54:24 [facility] 2021-08-19 Outpatient GLADIS, [facility] [id number] [place] 07:57:20 [facility] 2021-08-19 Outpatient [facility] [id number] [place] 07:56:39 [facility] 2021-08-19 Outpatient [facility] [id number] [place] 07:55:37 [facility] 2021-07-23 Outpatient [facility] [id number] [place] 10:43:22 [facility] 2021-07-23 Outpatient GLADIS, [facility] [id number] [place] 10:42:25 [facility] 2021-07-23 Outpatient [facility] [id number] [place] 10:36:58 [facility] 2023-04-03 2023-04-03 Documentat John [facility] [id number] 00:[facility]00 00:00:00 ron Blumga James [facility] 2023-03-16 2023-03-21 [facility] [id number] 19:21:00 14:28:00 Encounter Miri Keller Alyson [facility] er Ali, Hiba Franklin 2023-03-16 2023-03-21 Inpatient ER ALI, HIBA [facility] Cardiology [id number] [facility] 19:21:00 14:28:00 2023-03-20 2023-03-20 Surgery Armando [facility] [id number] 12:52:00 14:49:00 Julito Mob[facility] 2023-03-17 2023-03-17 Orders [facility] [id number] 00:00:00 00:00:00 Only [facility] 2023-03-16 2023-03-16 Travel [facility] [id number] [facility] 00:[facility] 00:00:00 [facility] 2022-07-23 2022-07-23 Outpatient MHIE MHIE [id number] Memoria 13:00:00 13:00:00 06 [facility] 2022-07-23 2022-07-23 Outpatient MHIE MHIE [id number] Memoria 13:00:00 13:00:00 06 [facility] 2022-07-09 2022-07-09 [facility] [id number] [place] 00:00:00 00:00:00 DIVYANG [address] 2022-07-03 2022-07-03 Transcribe Veronica, 1.2.840.1 [id number] Methodi 00:00:00 00:00:00 Orders Divmickyg C [address]27.1.[address] 3.430.2.7 Hospit a .3.301378 l .8 2022-05-23 2022-05-23 Outpatient MHIE MHIE [id number] Memoria 13:15:00 13:15:00 05 [facility] 2022-05-23 2022-05-23 Outpatient MHIE MHIE [id number] Memoria 13:15:00 13:15:00 05 jef SadlerObie 2022-04-29 2022-04-[address] [facility] [id number] [place] 10:00:00 10:00:00 [facility] 2022-04-10 2022-04-10 Outpatient MHIE MHIE [id number] Memoria 08:15:00 08:15:00 04 [facility] 2022-04-10 2022-04-10 Outpatient MHIE MHIE [id number] Memoria 08:15:00 08:15:00 04 jef Morral 2022-03-10 2022-03-10 Outpatient MHIE MHIE [id number] Memoria 11:30:00 11:30:00 03 [facility] 2022-03-10 2022-03-10 Outpatient MHIE MHIE [id number] Memoria 11:30:00 11:30:00 03 jef SadlerObie 2022-02-19 2022-02-19 Outpatient MHIE MHIE [id number] Memoria 15:15:00 15:15:00 02 jef Morral 2022-02-19 2022-02-19 Outpatient MHIE MHIE [id number] Memoria 15:15:00 15:15:00 02 jef Morral 2022-01-13 2022-01-13 Office ESPERANZA Connell [facility] 1.2.840.114 [id number] [place] 10:00:00 10:15:00 Visit Arash SAMPSON [id number] [facility] 9.2.7.2.686 [facility] [id number] 1 2022-01-01 2022-01-01 Telephonic ESPERANZA Connell 1.2.840.114 [id number] [place] 07:45:00 08:52:16 Encounter Arash BROTHERS [id number] [facility]IN[facility] 9.2.7.2.686 [id number] 2 2021-12-30 2021-12-30 Outpatient MHIE MHIE [id number] Memoria 09:20:00 09:20:00 01 jef SadlerMorral 2021-12-30 2021-12-30 Outpatient MHIE MHIE [id number] Memoria 09:20:00 09:20:00 01 jef Morral 2021-12-18 2021-12-18 Inpatient ANISA Domingo, HECTORCL OUTD [id number] [facility] 05:16:00 05:16:00 Ortiz 70 [facility] 2021-12-04 2021-12-04 Telephonic ESPERANZA Connell 1.2.840.114 [id number] [place] 07:45:00 08:47:54 Encounter Arash BROTHERS 350.1.13.58 Health CLINIC 9.2.7.2.686 [id number] 2021-11-20 2021-11-21 Inpatient ANISA EsthelaHECTOR sherCL INTE.02 [id number] [facility] 14:27:00 13:39:00 [place] 30 [facility] 2021-11-18 2021-11-18 Office ESPERANZA CONNELL [facility] 1.2.840.114 [id number] [place] 10:00:00 10:15:00 Visit ARASH SAMPSON 350.1.13.58 He alth FABIEN 9.2.7.2.686 [facility] [id number] 1 2021-11-08 2021-11-11 [facility] [id number] Memoria 06:30:00 18:32:00 r Obie 54 l [facility] 2021-11-06 2021-11-06 Office ESPERANZA Connell 1.2.840.114 [id number] [place] 10:45:00 11:24:42 Visit Arash BROTHERS 350.1.13.58 He alth CLINIC 9.2.7.2.686 [id number] 2 2021-11-04 2021-11-04 Outpatient MHIE MHIE [id number] Memoria 09:40:00 09:40:00 00 l Morral 2021-11-04 2021-11-04 Outpatient MHIE MHIE [id number] Memoria 09:40:00 09:40:00 00 [facility] 2021-10-11 2021-10-22 [facility] [id number] Memoria 16:31:00 23:05:00 r Obie 01 l [facility] 2021-09-27 2021-09-30 [facility] [id number] Memoria 22:11:44 21:55:00 r Obie 02 l [facility] 2021-09-27 2021-09-27 Emergency E BARTSOFF, MHSE MHSE [id number] 16:11:00 16:11:00 LAKSHMI [facility] 2021-07-16 2021-07-16 Office ESPERANZA Connell [facility] 1.2.840.114 [id number] [place] 09:51:23 10:45:55 Visit [facility] 350.1.13.58 [address] 9.2.7.2.686 [id number] 2 2021-07-02 2021-07-02 Day nullFlavo [facility] [id number] Memoria 14:10:00 22:16:00 Surgery r Obie 00 l [facility] 2021-06-28 2021-06-28 Office ESPERANZA Connell [facility] 1.2.840.114 [id number] [place] 09:49:14 10:45:59 Visit [facility] 350.1.13.[address] 9.2.7.2.686 [id number] 2 2021-06-16 2021-06-16 Outpatient PRIV PRIV [id number] [facility] 00:00:00 00:00:00 [id number] Medica l 2021-06-16 2021-06-16 Outpatient PRIV PRIV [id number] 9-2 [facility] 00:00:00 00:00:00 [id number] Medica l Results Test Description Test Time Test Comments Results Result Comments Source POC ACTIVATED CLOTTING TIME 2023-03-21 07:12:26 Test Item Value Reference Range Interpretation Comme nts Activated Clotting Time (test 155 sec : 74-137 seconds, Baseline: TESTED AT code = 3184-9) [facility] [address] [facility], [address]: Cryptography Teacher/Techni zainab ID = [id number] for VIANCA, VIANEY [id number] 07:12:26 Test Item Value Reference Range Interpretation Comments ACTIVATED CLOTTING TIME 155 sec : 74 -137 seconds, (BEAKER) (test code = Baseli ne: TESTED AT 441) [facility] [address] [facility], [address]: Cryptography Teacher/Techni zainab ID = [id number] for TE E, VIANEY CBC (HEMOGRAM ONLY)2023-03-21 06:16:28 Test Item Value Reference Range Interpretation Comments WHITE BLOOD CELL COUNT 10.1 K/ L 3.5-10.5 (BEAKER) (test code = 775) RED BLOOD CELL COUNT 3.36 M/ L 3.93-5.22 L (BEAKER) (test code = 761) HEMOGLOBIN (BEAKER) 9.3 GM/DL 11.2-15.7 L (test code = 410) HEMATOCRIT (BEAKER) 29.7 % 34.1-44.9 L (test code = 411) MEAN CORPUSCULAR 88 fL 79-95 VOLUME (BEAKER) (test code = 753) MEAN CORPUSCULAR 27.7 pg 25.6-32.2 HEMOGLOBIN (BEAKER) (test code = 751) MEAN CORPUSCULAR 31.3 GM/DL 32.2-35.5 L HEMOGLOBIN CONC (BEAKER) (test code = 752) RED CELL DISTRIBUTION Unable to report due WIDTH (BEAKER) (test to [facility] RBC code = 412) population distribution. PLATELET COUNT 210 K/CU MM 150-450 (BEAKER) (test code = 756) MEAN PLATELET VOLUME 9.9 fL 9.4-12.3 (BEAKER) (test code = 754) NUCLEATED RED BLOOD 0 /100 WBC 0-0 CELLS (BEAKER) (test code = 413) BASIC METABOLIC [id number] 05:45:40 Test Item Value Reference Range Interpretation Comments SODIUM (BEAKER) 139 meq/L 136-145 (test code = 381) POTASSIUM 3.4 meq/L 3.5-5.1 L (BEAKER) (test code = 379) CHLORIDE (BEAKER) 109 meq/L 98-107 H (test code = 382) CO2 (BEAKER) 21 meq/L 22-29 L (test code = 355) BLOOD UREA 17 mg/dL 7-21 NITROGEN (BEAKER) (test code = 354) CREATININE 0.78 mg/dL 0.57-1.25 (BEAKER) (test code = 358) GLUCOSE RANDOM 110 mg/dL 70-105 H (BEAKER) (test code = 652) CALCIUM (BEAKER) 8.4 mg/dL 8.4-10.2 (test code = 697) EGFR (BEAKER) 77 Interpretatio n of eGFR (test code = mL/min/1.73 values Stage De scription 1092) sq m Result G1 Elsie l or high >=90 G2 Mildly decreased 60-89 G3a Mildl y to moderately 45-5 9 G3b Moderately to s everely 30-44 G4 Severl y decreased 15-29 G5 Kidney failure <15Reported eGF R is based on the CKD-EPI 2021 equation that d oes not use a race coefficientEsti mated GFR is not as accur ate as Creatinine Stephanie myers in predicting glom erular filtration rate . Estimated GFR is not appl icable for dialysis patien ts Cryptography Teacher ID - [id number] 03:26:49 Test Item Value Reference Range Interpretation Comments ACTIVATED CLOTTING TIME 155 sec : 74 -137 seconds, (BEAKER) (test code = Baseli ne: TESTED AT 441) [facility] [address] [place], [address]: Cryptography Teacher/Techni zainab ID = [id number] for ICO (V), ALEISHA Crane [id number] 00:26:29 Test Item Value Reference Range Interpretation Comments ACTIVATED CLOTTING TIME 161 sec : 74 -137 seconds, (BEAKER) (test code = Baseli ne: TESTED AT 441) [address], [address]: Cryptography Teacher/Techni zainab ID = [id number] for ICO (V), ALEISHA Crane [id number] 22:13:15 Test Item Value Reference Range Interpretation Comments ACTIVATED CLOTTING TIME 167 sec : 74 -137 seconds, (BEAKER) (test code = Baseli ne: TESTED AT 441) [address], [facility] 30: Cryptography Teacher/Techni zainab ID = [id number] for ICO (V), ALEISHA Crane [id number] 20:02:32 Test Item Value Reference Range Interpretation Comments ACTIVATED CLOTTING TIME 173 sec : 74 -137 seconds, (BEAKER) (test code = Baseli ne: TESTED AT 441) [address], [facility] 30: Cryptography Teacher/Techni zainab ID = [id number] for ICO (V), ALEISHA Crane CBC W/PLT COUNT & AUTO [id number] 15:22:27 Test Item Value Reference Range Interpretation Comments WHITE BLOOD CELL COUNT 8.3 K/ L 3.5-10.5 (BEAKER) (test code = 775) RED BLOOD CELL COUNT 4.31 M/ L 3.93-5.22 (BEAKER) (test code = 761) HEMOGLOBIN (BEAKER) 11.7 GM/DL 11.2-15.7 (test code = 410) HEMATOCRIT (BEAKER) 39.1 % 34.1-44.9 (test code = 411) MEAN CORPUSCULAR 91 fL 79-95 VOLUME (BEAKER) (test code = 753) MEAN CORPUSCULAR 27.1 pg 25.6-32.2 HEMOGLOBIN (BEAKER) (test code = 751) MEAN CORPUSCULAR 29.9 GM/DL 32.2-35.5 L HEMOGLOBIN CONC (BEAKER) (test code = 752) RED CELL DISTRIBUTION Unable to report due WIDTH (BEAKER) (test to abno al RBC code = 412) population distribution. PLATELET COUNT 224 K/CU MM 150-450 (BEAKER) (test code = 756) MEAN PLATELET VOLUME 10.8 fL 9.4-12.3 (BEAKER) (test code = 754) NUCLEATED RED BLOOD 0 /100 WBC 0-0 CELLS (BEAKER) (test code = 413) NEUTROPHILS RELATIVE 80 % PERCENT (BEAKER) (test code = 429) LYMPHOCYTES RELATIVE 9 % PERCENT (BEAKER) (test code = 430) MONOCYTES RELATIVE 9 % PERCENT (BEAKER) (test code = 431) EOSINOPHILS RELATIVE 0 % PERCENT (BEAKER) (test code = 432) BASOPHILS RELATIVE 1 % PERCENT (BEAKER) (test code = 437) NEUTROPHILS ABSOLUTE 6.70 K/ L 1.56-6.13 H COUNT (BEAKER) (test code = 670) LYMPHOCYTES ABSOLUTE 0.75 K/ L 1.18-3.74 L COUNT (BEAKER) (test code = 414) MONOCYTES ABSOLUTE 0.76 K/ L 0.24-0.36 H COUNT (BEAKER) (test code = 415) EOSINOPHILS ABSOLUTE 0.00 K/ L 0.04-0.36 L COUNT (BEAKER) (test code = 416) BASOPHILS ABSOLUTE 0.06 K/ L 0.01-0.08 COUNT (BEAKER) (test code = 417) IMMATURE 0.80 % 0.00-1.00 GRANULOCYTES-RELATIVE PERCENT (BEAKER) (test code = 2801) [id number] 15:18:40 Test Item Value Reference Range Interpretation Comments ACTIVATED CLOTTING TIME 317 sec : 74 -137 seconds, (BEAKER) (test code = Baseli ne: TESTED AT 441) [facility] [address] [facility] [place], [address]: Cryptography Teacher/Techni zainab ID = [id number] for DESIRAE MONTERO LACTIC ACID, [id number] 14:01:05 Test Item Value Reference Range Interpretation Comments LACTATE BLOOD VENOUS (2) (BEAKER) 1.92 mmol/L 0.50-2.00 (test code = 2872) Cryptography Teacher ID - ELENAIGH SENSITIVITY TROPONIN [id number] 13:57:49 Test Item Value Reference Range Interpretation Comments HIGH SENSITIVITY TROPONIN I (test 33 pg/ml <=17 H code = 1397890) Cryptography Teacher ID - Cristiano CUTTING TABLE OPERATOR FIRST STAT High Sensitivity Troponin-I results should be used in conjunction with other diagnostic information such as ECG, clinical observations and information, and patientsymptoms to aid in the diagnosis of MA. COMPREHENSIVE METABOLIC [id number] 13:28:32 Test Item Value Reference Range Interpretation Comments TOTAL PROTEIN 5.9 gm/dL 6.0-8.3 L (BEAKER) (test code = 770) ALBUMIN (BEAKER) 2.9 g/dL 3.5-5.0 L (test code = 1145) ALKALINE 122 U/L 40-150 PHOSPHATASE (BEAKER) (test code = 346) BILIRUBIN TOTAL 0.7 mg/dL 0.2-1.2 (BEAKER) (test code = 377) SODIUM (BEAKER) 139 meq/L 136-145 (test code = 381) POTASSIUM (BEAKER) 3.6 meq/L 3.5-5.1 (test code = 379) CHLORIDE (BEAKER) 109 meq/L 98-107 H (test code = 382) CO2 (BEAKER) (test 20 meq/L 22-29 L code = 355) BLOOD UREA 18 mg/dL 7-21 NITROGEN (BEAKER) (test code = 354) CREATININE 0.88 mg/dL 0.57-1.25 (BEAKER) (test code = 358) GLUCOSE RANDOM 137 mg/dL 70-105 H (BEAKER) (test code = 652) CALCIUM (BEAKER) 8.4 mg/dL 8.4-10.2 (test code = 697) AST (SGOT) 68 U/L 5-34 H (BEAKER) (test code = 353) ALT (SGPT) 39 U/L 6-55 (BEAKER) (test code = 347) EGFR (BEAKER) 67 Interpretatio n of eGFR (test code = 1092) mL/min/1.[address] age Description sq m Result G1 Elsie l or high >=90 G2 Mildly decreased 60-89 G3a Mildl y to moderately 45-5 9 G3b Moderately to s everely 30-44 G4 Severl y decreased 15-29 G5 Kidney failure <15Reported eGF R is based on the CKD-EPI 2020 equation that d oes not use a race coefficientEsti mated GFR is not as accur ate as Creatinine Stephanie myers in predicting glom erular filtration rate . Estimated GFR is not appl icable for dialysis patien ts Cryptography Teacher ID - MARCOPOC [id number] 12:32:17 Test Item Value Reference Range Interpretation Comments POC-Glucose (test code = 136 mg/dL 70-110 H : T ESTED AT [facility] 1855) 6720 [facility], [address]: Cryptography Teacher/Techni zainab ID = [id number] for ELIZABETH, BEVERLY Lab Interpretation (test Abnormal code = 08057-8) [facility][id number] 12:32:17 Test Item Value Reference Range Interpretation Comments POC-GLUCOSE ([facility]) 136 mg/dL 70-110 H : TESTE D AT [facility] 6720 (test code = 1855) [facility], [address]: Cryptography Teacher/Techni zainab ID = [id number] for PAIG E, BEVERLY WEWO-[id number] 12:32:16 Test Item Value Reference Range Interpretation Comments POC-Hemoglobin (test code 12.6 g/dL 12.0-15.0 : TESTED AT [facility] = 1856) 67[address] [facility], 7[address] 30: Cryptography Teacher/Techni zainab ID = [id number] for ELIZABETH, BEVERLY Lab Interpretation (test Normal code = 34527-5) [facility] CenterVdxzubEWXU-[id number] 12:32:16 Test Item Value Reference Range Interpretation Comments POC-Hematocrit (test code = 37 % 36-45 : 1856) Cryptography Teacher/Techni zainab ID = [id number] for ELIZABETH, BEVERLY Lab Interpretation (test Normal code = 29594-5) [facility] CenterXreyufSSPP-[id number] 12:32:16 Test Item Value Reference Range Interpretation Comments POC-HEMOGLOBIN 12.6 g/dL 12.0-15.0 : TESTED AT [facility] 6720 [facility] (test code [facility], = 185) [address]: Cryptography Teacher/Techni zainab ID = [id number] for PAIG E, BEVERLY TROB-[id number] 12:32:16 Test Item Value Reference Range Interpretation Comments POC-HEMATOCRIT 37 % 36-45 : Cryptography Teacher/Te chnician ID = (BEAKER) (test code = 255657 for EILZABETH, BEVERLY 1857) POC-Blood gases, [id number] 12:32:15 Test Item Value Reference Range Interpretation Comments Temp. Celsius-POC (test code = 1834) FIO2-POC (test code = 1835) pH, Venous-POC 7.360 7.320-7.420 : TESTED AT [facility] 6720 (test code = 1842) [place], [address] PCO2, Venous-POC 42.1 See_Comment If pO2 is > 180, pCO2 may (test code = 1843) be positi vely biased [Automated mess age] The system which ge nerated this result tra nsmitted reference range : 41.0 - 51.0 mm Hg. The reference range was not u sed to interpret this result as normal/abnormal . PO2, Venous-POC 34.0 See_Comment [Automated message] The (test code = 1844) system wh [facility] generated this result tra nsmitted reference range : 25.0 - 40.0 mm Hg. The reference range was not u sed to interpret this result as normal/abnormal . SO2, Venous-POC 64.0 % 40.0-70.0 (test code = 1845) HCO3, Venous-POC 23.8 meq/L 21.0-29.0 (test code = 1846) BE, Venous-POC -2.0 meq/L -2.0-3.0 : Cryptography Teacher/Te chnician ID (test code = 1847) = [id number] for BEVERLY JOHNSON [facility]-[id number] 12:32:15 Test Item Value Reference Range Interpretation Comments POC-Potassium (test code 3.5 meq/L 3.6-5.5 L : T ESTED AT [facility] = 1540) 6720 [facility] [place], [address]: Cryptography Teacher/Techni zainab ID = [id number] for BEVERLY JOHNSON Lab Interpretation (test Abnormal code = 16333-4) [facility]-Byfyut5294-50-33 12:32:15 Test Item Value Reference Range Interpretation Comments POC-Sodium (test code = 140 meq/L 135-148 : TE STED AT [facility] 1542) 67[address] [facility], 770 30: Cryptography Teacher/Techni zainab ID = [id number] for MATHEW JOHNSONNDA Lab Interpretation (test Normal code = 97709-0) [facility] CenterPOCT-BLOOD GASES, [id number] 12:32:15 Test Item Value Reference Range Interpretation Comments TEMP, CELSIUS-POC (BEAKER) (test code = 1834) FIO2-POC (BEAKER) (test code = 1835) PH, VENOUS-POC 7.360 7.320-7.420 : TESTED AT [place] [address] (BEAKER) (test code [facility], = 1842) [address] PCO2, VENOUS-POC 42.1 mm Hg 41.0-51.0 If pO2 is > 180, pCO2 may (BEAKER) (test code be posit ively biased = 1843) PO2, VENOUS-POC 34.0 mm Hg 25.0-40.0 (BEAKER) (test code = 1844) SO2, VENOUS-POC 64.0 % 40.0-70.0 (BEAKER) (test code = 1845) HCO3, VENOUS-POC 23.8 meq/L 21.0-29.0 (BEAKER) (test code = 1846) BASE EXCESS, -2.0 meq/L -2.0-3.0 : Cryptography Teacher/Tech nician ID VENOUS-POC (BEAKER) = [id number] for ELIZABETH, (test code = 1847) BEVERLY [id number] 12:32:15 Test Item Value Reference Range Interpretation Comments POC-SODIUM (BEAKER) 140 meq/L 135-148 : TESTED AT [place] [address] (test code = 1542) [facility], [address]: Cryptography Teacher/Techni zainab ID = [id number] for PAIG E, BEVERLY MZNA-[id number] 12:32:15 Test Item Value Reference Range Interpretation Comments POC-POTASSIUM 3.5 meq/L 3.6-5.5 L : TESTED AT [place] [address] (BEAKER) (test code [facility], = 1540) [address]: Cryptography Teacher/Techni zainab ID = [id number] for PAIG E, BEVERLY POC-Glucose [id number] 12:07:53 Test Item Value Reference Range Interpretation Comments POC-Glucose Meter (test 137 mg/dL 70-110 H : TE STED AT [facility] code = 1538) 6720 [place], [address]: Cryptography Teacher/Techni zainab ID = [id number] for Steffi Patel Lab Interpretation (test Abnormal code = 59552-6) [facility]PO[facility] [id number] 12:07:53 Test Item Value Reference Range Interpretation Comments POC-GLUCOSE METER 137 mg/dL 70-110 H : TESTED A T [facility] 6720 (BEAKER) (test code = [facility], 1538) [address]: Cryptography Teacher/Techni zainab ID = [id number] for Steffi Downing CBC (HEMOGRAM ONLY)2023-03-20 06:36:55 Test Item Value Reference Range Interpretation Comments WHITE BLOOD CELL COUNT 8.2 K/ L 3.5-10.5 (BEAKER) (test code = 775) RED BLOOD CELL COUNT 3.63 M/ L 3.93-5.22 L (BEAKER) (test code = 761) HEMOGLOBIN (BEAKER) 9.9 GM/DL 11.2-15.7 L (test code = 410) HEMATOCRIT (BEAKER) 32.6 % 34.1-44.9 L (test code = 411) MEAN CORPUSCULAR 90 fL 79-95 VOLUME (BEAKER) (test code = 753) MEAN CORPUSCULAR 27.3 pg 25.6-32.2 HEMOGLOBIN (BEAKER) (test code = 751) MEAN CORPUSCULAR 30.4 GM/DL 32.2-35.5 L HEMOGLOBIN CONC (BEAKER) (test code = 752) RED CELL DISTRIBUTION Unable to report due WIDTH (BEAKER) (test to [facility] RBC code = 412) population distribution. PLATELET COUNT 204 K/CU MM 150-450 (BEAKER) (test code = 756) MEAN PLATELET VOLUME 10.2 fL 9.4-12.3 (BEAKER) (test code = 754) NUCLEATED RED BLOOD 0 /100 WBC 0-0 CELLS (BEAKER) (test code = 413) BASIC METABOLIC [id number] 05:34:51 Test Item Value Reference Range Interpretation Comments SODIUM (BEAKER) 141 meq/L 136-145 (test code = 381) POTASSIUM 3.5 meq/L 3.5-5.1 (BEAKER) (test code = 379) CHLORIDE (BEAKER) 107 meq/L 98-107 (test code = 382) CO2 (BEAKER) 23 meq/L 22-29 (test code = 355) BLOOD UREA 19 mg/dL 7-21 NITROGEN (BEAKER) (test code = 354) CREATININE 0.87 mg/dL 0.57-1.25 (BEAKER) (test code = 358) GLUCOSE RANDOM 108 mg/dL 70-105 H (BEAKER) (test code = 652) CALCIUM (BEAKER) 8.6 mg/dL 8.4-10.2 (test code = 697) EGFR (BEAKER) 68 Interpretatio n of eGFR (test code = mL/min/1.73 values Stage De scription 1092) sq m Result G1 Elsie l or high >=90 G2 Mildly decreased 60-89 G3a Mildl y to moderately 45-5 9 G3b Moderately to s everely 30-44 G4 Severl y decreased 15-29 G5 Kidney failure <15Reported eGF R is based on the CKD-EPI 2020 equation that d oes not use a race coefficientEsti mated GFR is not as accur ate as Creatinine Stephanie lucia in predicting glom erular filtration rate . Estimated GFR is not appl icable for dialysis patien ts Cryptography Teacher ID - [id number] 05:26:15 Test Item Value Reference Range Interpretation Comments PARTIAL THROMBOPLASTIN TIME 54.4 seconds 22.5-36.0 H (BEAKER) (test code = 760) [id number] 21:18:54 Test Item Value Reference Range Interpretation Comments PARTIAL THROMBOPLASTIN TIME 71.6 seconds 22.5-36.0 H (BEAKER) (test code = 760) [id number] 14:56:16 Test Item Value Reference Range Interpretation Comments PARTIAL THROMBOPLASTIN TIME 59.1 seconds 22.5-36.0 H (BEAKER) (test code = 760) [id number] 13:20:14 Test Item Value Reference Range Interpretation Comments PARTIAL THROMBOPLASTIN TIME 123.0 seconds 22.5-36.0 H (BEAKER) (test code = 760) [id number] 06:28:13 Test Item Value Reference Range Interpretation Comments PARTIAL THROMBOPLASTIN TIME 71.6 seconds 22.5-36.0 H (BEAKER) (test code = 760) [id number] 23:50:11 Test Item Value Reference Range Interpretation Comments PARTIAL THROMBOPLASTIN TIME 97.6 seconds 22.5-36.0 H (BEAKER) (test code = 760) [id number] 17:16:54 Test Item Value Reference Range Interpretation Comments PARTIAL THROMBOPLASTIN TIME 89.5 seconds 22.5-36.0 H (BEAKER) (test code = 760) IRON, TIBC, % SAT. (WITHOUT FERRITIN)2023-03-18 13:49:04 Test Item Value Reference Range Interpretation Comments IRON (BEAKER) (test code = 547) 47.0 ug/dL 40.0-160.0 TOTAL IRON BINDING CAPACITY 300 ug/dL 250-450 (BEAKER) (test code = 769) IRON % SATURATION (2) (BEAKER) 16 % 20-55 L (test code = 2590) Cryptography Teacher ID - [id number] 07:36:31 Test Item Value Reference Range Interpretation Comments PARTIAL THROMBOPLASTIN TIME 112.8 seconds 22.5-36.0 H (BEAKER) (test code = 760) [id number] 07:33:19 Test Item Value Reference Range Interpretation Comments FERRITIN (BEAKER) (test code = 260.87 ng/mL 5.00-275.00 361) Cryptography Teacher ID - bvTSH/FREE T4 IF [id number] 06:03:12 Test Item Value Reference Range Interpretation Comments THYROID STIMULATING HORMONE 0.490 uIU/mL 0.350-4.940 (BEAKER) (test code = 772) Cryptography Teacher ID - bvCBC (HEMOGRAM ONLY)2023-03-18 05:52:36 Test Item Value Reference Range Interpretation Comments WHITE BLOOD CELL COUNT (BEAKER) 8.8 K/ L 3.5-10.5 (test code = 775) RED BLOOD CELL COUNT (BEAKER) 3.65 M/ L 3.93-5.22 L (test code = 761) HEMOGLOBIN (BEAKER) (test code = 10.1 GM/DL 11.2-15.7 L 410) HEMATOCRIT (BEAKER) (test code = 31.9 % 34.1-44.9 L 411) MEAN CORPUSCULAR VOLUME (BEAKER) 87 fL 79-95 (test code = 753) MEAN CORPUSCULAR HEMOGLOBIN 27.7 pg 25.6-32.2 (BEAKER) (test code = 751) MEAN CORPUSCULAR HEMOGLOBIN CONC 31.7 GM/DL 32.2-35.5 L (BEAKER) (test code = 752) RED CELL DISTRIBUTION WIDTH 28.1 % 11.7-14.4 H (BEAKER) (test code = 412) PLATELET COUNT (BEAKER) (test 214 K/CU MM 150-450 code = 756) MEAN PLATELET VOLUME (BEAKER) 10.2 fL 9.4-12.3 (test code = 754) NUCLEATED RED BLOOD CELLS 0 /100 WBC 0-0 (BEAKER) (test code = 413) [id number] 05:41:27 Test Item Value Reference Range Interpretation Comments MAGNESIUM (BEAKER) (test code = 1.6 mg/dL 1.6-2.6 627) Cryptography Teacher ID - ADMINBASIC METABOLIC [id number] 05:41:26 Test Item Value Reference Range Interpretation Comments SODIUM (BEAKER) 137 meq/L 136-145 (test code = 381) POTASSIUM 3.5 meq/L 3.5-5.1 (BEAKER) (test code = 379) CHLORIDE (BEAKER) 103 meq/L 98-107 (test code = 382) CO2 (BEAKER) 24 meq/L 22-29 (test code = 355) BLOOD UREA 17 mg/dL 7-21 NITROGEN (BEAKER) (test code = 354) CREATININE 0.80 mg/dL 0.57-1.25 (BEAKER) (test code = 358) GLUCOSE RANDOM 104 mg/dL 70-105 (BEAKER) (test code = 652) CALCIUM (BEAKER) 8.3 mg/dL 8.4-10.2 L (test code = 697) EGFR (BEAKER) 75 Interpretatio n of eGFR (test code = mL/min/1.73 values Stage De scription 1092) sq m Result G1 Elsie l or high >=90 G2 Mildly decreased 60-89 G3a Mildl y to moderately 45- 59 G3b Moderately to s everely 30-44 G4 Severl y decreased 15-29 G5 Kidney failure <15Reported eGF R is based on the CKD-EPI 2020 equation that d oes not use a race coefficientEsti mated GFR is not as accur ate as Creatinine Stephanie lucia in predicting glom erular filtration rate . Estimated GFR is not appl icable for dialysis patien ts Cryptography Teacher ID - [id number] 02:54:20 Test Item Value Reference Range Interpretation Comments PARTIAL THROMBOPLASTIN TIME 70.8 seconds 22.5-36.0 H (BEAKER) (test code = 760) B-TYPE NATRIURETIC FACTOR (BNP)2023-03-17 18:36:22 Test Item Value Reference Range Interpretation Comments B-TYPE NATRIURETIC PEPTIDE (BEAKER) 857 pg/mL 0-100 H (test code = 700) Cryptography Teacher ID - [id number] 17:52:42 Test Item Value Reference Range Interpretation Comments PARTIAL THROMBOPLASTIN TIME 50.7 seconds 22.5-36.0 H (BEAKER) (test code = 760) XR CHEST 1 VIEW PORTABLE / [id number] 15:43:11 [facility] 1945 Sex: FXR CHEST 1 VIEW PORTABLE / BEDSIDETECHNIQUE: Frontal view(s) of the chest.INDICATION: eval pulmonary edemaeval pulmonary edemaCOMPARISON: NoneFINDINGS/IMPRESSION:Lines/Tubes: NoneLungs/pleura: No focal consolidation or definite interstitial pulmonaryedema. No pleural effusion. No pneumothorax.Heart and Mediastinum: Unremarkable.Soft Tissues and Bones: Surgical hardware in the lower cervical spine.Electronically Signed By: Amy Elliott03/17/2023 15:45 CDTWorkstation Name: [id number] 10:40:12 Test Item Value Reference Range Interpretation Comments PARTIAL THROMBOPLASTIN TIME 69.9 seconds 22.5-36.0 H (BEAKER) (test code = 760) COMPREHENSIVE METABOLIC [id number] 10:04:18 Test Item Value Reference Range Interpretation Comments TOTAL PROTEIN 7.3 gm/dL 6.0-8.3 (BEAKER) (test code = 770) ALBUMIN (BEAKER) 3.6 g/dL 3.5-5.0 (test code = 1145) ALKALINE 183 U/L 40-150 H PHOSPHATASE (BEAKER) (test code = 346) BILIRUBIN TOTAL 1.1 mg/dL 0.2-1.2 (BEAKER) (test code = 377) SODIUM (BEAKER) 139 meq/L 136-145 (test code = 381) POTASSIUM (BEAKER) 3.4 meq/L 3.5-5.1 L (test code = 379) CHLORIDE (BEAKER) 104 meq/L 98-107 (test code = 382) CO2 (BEAKER) (test 24 meq/L 22-29 code = 355) BLOOD UREA 14 mg/dL 7-21 NITROGEN (BEAKER) (test code = 354) CREATININE 0.81 mg/dL 0.57-1.25 (BEAKER) (test code = 358) GLUCOSE RANDOM 99 mg/dL 70-105 (BEAKER) (test code = 652) CALCIUM (BEAKER) 8.8 mg/dL 8.4-10.2 (test code = 697) AST (SGOT) 76 U/L 5-34 H (BEAKER) (test code = 353) ALT (SGPT) 43 U/L 6-55 (BEAKER) (test code = 347) EGFR (BEAKER) 74 Interpretatio n of eGFR (test code = 1092) mL/min/1.[address] age Description sq m Result G1 Elsie l or high >=90 G2 Mildly decreased 60-89 G3a Mildl y to moderately 45-5 9 G3b Moderately to s everely 30-44 G4 Severl y decreased 15-29 G5 Kidney failure <15Reported eGF R is based on the CKD-EPI 2020 equation that d oes not use a race coefficientEsti mated GFR is not as accur ate as Creatinine Stephanie myers in predicting glom erular filtration rate . Estimated GFR is not appl icable for dialysis patien ts Cryptography Teacher ID - EOOHIGH SENSITIVITY TROPONIN [id number] 05:52:17 Test Item Value Reference Range Interpretation Comments HIGH SENSITIVITY TROPONIN I (test 91 pg/ml <=17 H code = 1296945) Cryptography Teacher ID - EOOThe CUTTING TABLE OPERATOR FIRST STAT High Sensitivity Troponin-I results should be used in conjunction with other diagnostic information such as ECG, clinical observations and information, and patient symptoms to aid in the diagnosis of MA.CBC (HEMOGRAM ONLY)2023-03-17 05:33:12 Test Item Value Reference Range Interpretation Comments WHITE BLOOD CELL COUNT (BEAKER) 10.0 K/ L 3.5-10.5 (test code = 775) RED BLOOD CELL COUNT (BEAKER) 3.84 M/ L 3.93-5.22 L (test code = 761) HEMOGLOBIN (BEAKER) (test code = 10.5 GM/DL 11.2-15.7 L 410) HEMATOCRIT (BEAKER) (test code = 33.9 % 34.1-44.9 L 411) MEAN CORPUSCULAR VOLUME (BEAKER) 88 fL 79-95 (test code = 753) MEAN CORPUSCULAR HEMOGLOBIN 27.3 pg 25.6-32.2 (BEAKER) (test code = 751) MEAN CORPUSCULAR HEMOGLOBIN CONC 31.0 GM/DL 32.2-35.5 L (BEAKER) (test code = 752) RED CELL DISTRIBUTION WIDTH 29.0 % 11.7-14.4 H (BEAKER) (test code = 412) PLATELET COUNT (BEAKER) (test 243 K/CU MM 150-450 code = 756) MEAN PLATELET VOLUME (BEAKER) 10.0 fL 9.4-12.3 (test code = 754) NUCLEATED RED BLOOD CELLS 0 /100 WBC 0-0 (BEAKER) (test code = 413) [id number] 04:52:05 Test Item Value Reference Range Interpretation Comments PARTIAL THROMBOPLASTIN TIME 49.1 seconds 22.5-36.0 H (BEAKER) (test code = 760) LIPID [id number] 22:38:48 Test Item Value Reference Range Interpretation Comments TRIGLYCERIDES (BEAKER) (test code = 83 mg/dL 540) CHOLESTEROL (BEAKER) (test code = 93 mg/dL 631) HDL CHOLESTEROL (BEAKER) (test code 32 mg/dL = 976) LDL CHOLESTEROL CALCULATED (BEAKER) 44 mg/dL (test code = 633) Triglyceride Reference Range: Low Risk <150 Borderline 150-199 High Risk 200- 499 Very High Risk >=500Cholesterol Reference Range: Low Risk <200 Borderline 200-239 High Risk >240HDL Cholesterol Reference Range: Low Risk >=60 High Risk <40LDL Cholesterol Reference Range: Optimal <100 Near Optimal 100-129 Borderline 130-159 High 160-189 Very High >=190 Cryptography Teacher ID - [id number] 22:16:26 Test Item Value Reference Range Interpretation Comments PARTIAL THROMBOPLASTIN TIME 37.5 seconds 22.5-36.0 H (AKER) (test code = 760) PLATELET [id number] 22:06:41 Test Item Value Reference Range Interpretation Comments PLATELET COUNT (HERBAKER) (test 238 K/CU MM 150-450 code = 756) Cryptography Teacher ID - [id number] W/AUTO [id number] 15:36:00 Test Item Value Reference Range Interpretation Comments WHITE BLOOD CELL 12.0 x10 3/uL 4.5-11.0 H (test code = WBC) RED BLOOD CELL (test 3.62 x10 6/uL 3.54-5.02 N code = RBC) HEMOGLOBIN (test code 8.9 g/dL 11.0-15.0 L = HGB) HEMATOCRIT (test code 29.4 % 33.0-45.0 L = HCT) MEAN CELL VOLUME 81.2 fL 81.0-99.0 N (test code = MCV) MEAN CELL HGB (test 24.6 pg 27.0-33.0 L code = MCH) MEAN CELL HGB 30.3 g/dL 33.0-37.0 L CONCETRATION (test code = MCHC) RED CELL DISTRIBUTION 16.5 % 11.5-14.5 H WIDTH CV (test code = RDW) RED CELL DISTRIBUTION 48.8 fL 37.0-54.0 N WIDTH SD (test code = RDW-SD) PLATELET COUNT (test 237 x10 3/uL 150-400 N code = PLT) MEAN PLATELET VOLUME 9.2 fL 7.0-9.0 H (test code = MPV) NEUTROPHIL % (test 80.8 % 56.0-77.0 H code = NT%) LYMPHOCYTE % (test 10.8 % 14.0-32.0 L code = LY%) NEUTROPHIL # (test 9.69 x10 3/uL 2.0-7.6 H code = NT#) LYMPHOCYTE # (test 1.30 x10 3/uL 1.0-3.8 N code = LY#) MANUAL DIFF REQUIRED NO SLIDE R DON, (test code = MDIFF) CONSISTE NT WITH AUTO DIFF. IMMATURE GRANULOCYTE 0.4 % 0.0-2.0 N % (test code = IG%) MONOCYTE % (test code 6.4 % 4.8-9.0 N = MO%) EOSINOPHIL % (test 1.1 % 0.3-3.7 N code = EO%) BASOPHIL % (test code 0.5 % 0.0-2.0 N = BA%) NUCLEATED RBC % (test 0.0 % 0-0 N code = NRBC%) IMMATURE GRANULOCYTE 0.05 x10 3/uL 0.00-0.03 H # (test code = IG#) MONOCYTE # (test code 0.77 x10 3/uL 0.1-0.8 N = MO#) EOSINOPHIL # (test 0.13 x10 3/uL 0.0-0.2 N code = EO#) BASOPHIL # (test code 0.06 x10 3/uL 0.0-0.2 N = BA#) NUCLEATED RBC # (test 0.00 x10 3/uL 0.0-0.1 N code = NRBC#) BASIC METABOLIC [id number] 15:06:00 Test Item Value Reference Range Interpretation [...] code = 8.4 mg/dL 8.0-10.5 N CA) [id number] 12:54:00 Test Item Value Reference Range Interpretation Comments ACT-ISTAT (test code 273 SEC 74-137 H Perform ed 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 = ACTI) 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 BASIC METABOLIC [id number] 12:47:00 Test Item Value Reference Range Interpretation [...] = 8.4 mg/dL 8.0-10.5 N CA) PROTHROMBIN [id number] 12:47:00 Test Item Value Reference Range Interpretation [...] (to prevent recurrent infar ct). 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 [facility] BASIC METABOLIC [id number] 07:56:00 Test Item Value Reference Range Interpretation [...] 8.7 mg/dL 8.0-10.5 N CA) CBC W/AUTO [id number] 06:58:00 Test Item Value Reference Range Interpretation [...] = 0.00 x10 3/uL 0.0-0.1 N NRBC#) [id number] 13:45:00 Test Item Value Reference Range Interpretation Comments ACT-ISTAT (test code 261 SEC 74-137 H Perform ed 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 = ACTI) 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 [facility] - XR CHEST 1 [id number] 00:00:00 [facility]UFFIE IRENA : 1945 Sex: F FAX: Keturah Jefferson MD [phone] [place]: St: ADM FAX: Ortiz Krishnan MD [phone] FAX: Alan Toussaint [phone] Name: EDUARDO LA [facility] : 1945 Age/S: 76/F [address] [place] [address] Unit #: [id number] Loc: [place] [address] Phys: Alan Toussaint PHOTOENGRAVING HELPER Acct: [id number] Dis Date: Status: ADM IN PHONE #: [phone] Exam Date: 11/20/20218 FAX #: [phone] Reason: WATCHMAN EXAMS: CPT CODE: [id number] XR CHEST 1 V 68488 PROCEDURE INFORMATION: Exam: XR Chest Exam date [...] and signed by: Brooke Beaver M.D. CC: Keturah Oquendo MD; Ortiz Domingo MD; Alan Toussaint Technologist: RT Alexis(R) Trnscrd Date/Time/By: 11/20/2021 (8826) : By: [email or web address] Orig Print D/T: S: 11/20/2021 (4934) PAGE 1 Signed [id number] 15:14:00 Test Item Value Reference Range Interpretation Comments PREALBUMIN (test code = PREALB) 12.4 mg/dL 16.0-40.0 L BASIC METABOLIC [id number] 15:14:00 Test Item Value Reference Range Interpretation [...] = 8.3 mg/dL 8.0-10.5 N CA) PROTHROMBIN [id number] 15:06:00 Test Item Value Reference Range Interpretation [...] (to prevent recurrent infar ct). CBC W/AUTO [id number] 14:51:00 Test Item Value Reference Range Interpretation [...] 0.0-0.1 N NRBC#) - XR CHEST 2 [id number] 00:00:00 [facility] ED[facility] : 1945 Sex: F FAX: Keturah Jefferson MD [phone] [place]: [address]: PRE FAX: Ortiz Krishnan MD [phone] ---- Name: DAVID LA [facility] : 1945 Age/S: 76/F [address] [place] [address] Blvd Unit #: [id number] Loc: [place] [address] Phys: Ortiz Domingo MD Acct: [id number] Dis Date: Status: PRE SDC PHONE #: Exam Date: 11/18/2021 6305 FAX #: [phone] Reason: PREOP EXAMS: CPT CODE: [id number] XR CHEST 2 V 34318 PROCEDURE INFORMATION: Exam: XR Chest Exam date [...] of acute cardiopulmonary disease. SL: 131 at 6336 Reported and signed by: Saad Arboleda M.D.CC: Keturah Oquendo MD; Ortiz Domingo MD Technologist: Delmi Muñoz RT(R) Trnscrd Date/Time/By: 11/18/2021 (327) : By: Richi Orig Print D/T: S: 11/18/2021 (9756) PAGE 1 Signed [facility]2022-02-28 12:44:00 Test Item Value Reference Range Interpretation Comments Glucose Lvl (test code = Glucose Lvl) 122 70-99 [facility]2022-02-28 12:44:00 Test Item Value Reference Range Interpretation Comments BUN (test code = BUN) 16 7-22 [facility] [facility] 12:44:00 Test Item Value Reference Range Interpretation Comments Creatinine Lvl (test code = Creatinine 1.09 0.50-1.40 Lvl) [place] 154502-02-28 12:44:00 Test Item Value Reference Range Interpretation Comments Sodium Lvl (test code = Sodium Lvl) 139 135-145 [place] 154502-02-28 12:44:00 Test Item Value Reference Range Interpretation Comments Potassium Lvl (test code = Potassium 3.7 3.5-5.1 Lvl) [place] 154502-02-28 12:44:00 Test Item Value Reference Range Interpretation Comments Chloride Lvl (test code = Chloride Lvl) 106 95-109 [place] 154502-02-28 12:44:00 Test Item Value Reference Range Interpretation Comments CO2 (test code = CO2) 30 24-32 [place] 154502-02-28 12:44:00 Test Item Value Reference Range Interpretation Comments Calcium Lvl (test code = Calcium Lvl) 8.6 8.5-10.5 [place] 154502-02-28 12:44:00 Test Item Value Reference Range Interpretation Comments AGAP (test code = AGAP) 6.7 10.0-20.0 [place] 154502-02-28 12:44:00 Test Item Value Reference Range Interpretation Comments eGFR (test code = eGFR) 49 [id number] 12:44:00 Test Item Value Reference Range Interpretation Comments PTT (test code = PTT) 49.7 s 22.9-35.8 [place] 154502-02-28 12:44:00 Test Item Value Reference Range Interpretation Comments Glucose Lvl (test code = Glucose Lvl) 122 70-99 [place] 154502-02-28 12:44:00 Test Item Value Reference Range Interpretation Comments BUN (test code = BUN) 16 7-22 [place] 154502-02-28 12:44:00 Test Item Value Reference Range Interpretation Comments Creatinine Lvl (test code = Creatinine 1.09 0.50-1.40 Lvl) [place] 154502-02-28 12:44:00 Test Item Value Reference Range Interpretation Comments Sodium Lvl (test code = Sodium Lvl) 139 135-145 [place] 154502-02-28 12:44:00 Test Item Value Reference Range Interpretation Comments Potassium Lvl (test code = Potassium 3.7 3.5-5.1 Lvl) [place] 154502-02-28 12:44:00 Test Item Value Reference Range Interpretation Comments Chloride Lvl (test code = Chloride Lvl) 106 95-109 [place] 154502-02-28 12:44:00 Test Item Value Reference Range Interpretation Comments CO2 (test code = CO2) 30 24-32 [place] 154502-02-28 12:44:00 Test Item Value Reference Range Interpretation Comments Calcium Lvl (test code = Calcium Lvl) 8.6 8.5-10.5 [place] 154502-02-28 12:44:00 Test Item Value Reference Range Interpretation Comments AGAP (test code = AGAP) 6.7 10.0-20.0 [place] 154502-02-28 12:44:00 Test Item Value Reference Range Interpretation Comments eGFR (test code = eGFR) 49 [id number] 12:44:00 Test Item Value Reference Range Interpretation Comments PTT (test code = PTT) 49.7 s 22.9-35.8 [place] 154502-02-28 12:44:00 Test Item Value Reference Range Interpretation Comments Glucose Lvl (test code = Glucose Lvl) 122 70-99 [place] 154502-02-28 12:44:00 Test Item Value Reference Range Interpretation Comments BUN (test code = BUN) 16 7-22 [place] 154502-02-28 12:44:00 Test Item Value Reference Range Interpretation Comments Creatinine Lvl (test code = Creatinine 1.09 0.50-1.40 Lvl) [place] 154502-02-28 12:44:00 Test Item Value Reference Range Interpretation Comments Sodium Lvl (test code = Sodium Lvl) 139 135-145 [place] 154502-02-28 12:44:00 Test Item Value Reference Range Interpretation Comments Potassium Lvl (test code = Potassium 3.7 3.5-5.1 Lvl) [place] 154502-02-28 12:44:00 Test Item Value Reference Range Interpretation Comments Chloride Lvl (test code = Chloride Lvl) 106 95-109 [place] 154502-02-28 12:44:00 Test Item Value Reference Range Interpretation Comments CO2 (test code = CO2) 30 24-32 [facility]2022-02-28 12:44:00 Test Item Value Reference Range Interpretation Comments Calcium Lvl (test code = Calcium Lvl) 8.6 8.5-10.5 [facility]2022-02-28 12:44:00 Test Item Value Reference Range Interpretation Comments AGAP (test code = AGAP) 6.7 10.0-20.0 [facility]2022-02-28 12:44:00 Test Item Value Reference Range Interpretation Comments eGFR (test code = eGFR) 49 [id number] 12:44:00 Test Item Value Reference Range Interpretation Comments PTT (test code = PTT) 49.7 s 22.9-35.8 [place] 658532-02-27 19:08:00 Test Item Value Reference Range Interpretation Comments PTT (test code = PTT) 72.2 s 22.9-35.8 [place] 658532-02-27 19:08:00 Test Item Value Reference Range Interpretation Comments PTT (test code = PTT) 72.2 s 22.9-35.8 [place] [address]-02-27 19:08:00 Test Item Value Reference Range Interpretation Comments PTT (test code = PTT) 72.2 s 22.9-35.8 [facility]2022-02-27 12:39:00 Test Item Value Reference Range Interpretation Comments Ferritin Lvl (test code = Ferritin Lvl) 25 5-204 [facility]2022-02-27 12:39:00 Test Item Value Reference Range Interpretation Comments Phosphorus (test code = Phosphorus) 3.5 2.5-4.5 [place] 154502-02-27 12:39:00 Test Item Value Reference Range Interpretation Comments Magnesium Lvl (test code = Magnesium 1.7 1.8-2.4 Lvl) [place] 154502-02-27 12:39:00 Test Item Value Reference Range Interpretation Comments Glucose Lvl (test code = Glucose Lvl) 104 70-99 [facility]2022-02-27 12:39:00 Test Item Value Reference Range Interpretation Comments BUN (test code = BUN) 16 7-22 [place] 154502-02-27 12:39:00 Test Item Value Reference Range Interpretation Comments Creatinine Lvl (test code = Creatinine 0.99 0.50-1.40 Lvl) [place] 154502-02-27 12:39:00 Test Item Value Reference Range Interpretation Comments Sodium Lvl (test code = Sodium Lvl) 139 135-145 [place] 154502-02-27 12:39:00 Test Item Value Reference Range Interpretation Comments Potassium Lvl (test code = Potassium 3.2 3.5-5.1 Lvl) [place] 154502-02-27 12:39:00 Test Item Value Reference Range Interpretation Comments Chloride Lvl (test code = Chloride Lvl) 106 95-109 [place] 154502-02-27 12:39:00 Test Item Value Reference Range Interpretation Comments CO2 (test code = CO2) 31 24-32 [place] 154502-02-27 12:39:00 Test Item Value Reference Range Interpretation Comments Calcium Lvl (test code = Calcium Lvl) 8.6 8.5-10.5 [place] 154502-02-27 12:39:00 Test Item Value Reference Range Interpretation Comments Total Protein (test code = Total 6.2 6.4-8.4 Protein) [place] 154502-02-27 12:39:00 Test Item Value Reference Range Interpretation Comments Albumin Lvl (test code = Albumin Lvl) 2.5 3.5-5.0 [place] 154502-02-27 12:39:00 Test Item Value Reference Range Interpretation Comments ALT (test code = ALT) 64 See_Comment [Auto mated message] The system which ge nerated this result transmit shubham reference range : <=65. The reference range was not used to interpr et this result as elsie l/abnormal. [place] 154502-02-27 12:39:00 Test Item Value Reference Range Interpretation Comments AST (test code = AST) 31 See_Comment [Auto mated message] The system which ge nerated this result transmit shubham reference range : <=37. The reference range was not used to interpr et this result as elsie l/abnormal. [place] 154502-02-27 12:39:00 Test Item Value Reference Range Interpretation Comments Alk Phos (test code = Alk Phos) 135 39-136 [place] 154502-02-27 12:39:00 Test Item Value Reference Range Interpretation Comments Bili Total (test code = Bili Total) 0.3 0.2-1.3 [place] 154502-02-27 12:39:00 Test Item Value Reference Range Interpretation Comments AGAP (test code = AGAP) 5.2 10.0-20.0 [place] 154502-02-27 12:39:00 Test Item Value Reference Range Interpretation Comments B/C Ratio (test code = B/C Ratio) 16 1 6-25 [place] 154502-02-27 12:39:00 Test Item Value Reference Range Interpretation Comments Globulin (test code = Globulin) 3.7 2.7-4.2 [place] 154502-02-27 12:39:00 Test Item Value Reference Range Interpretation Comments A/G Ratio (test code = A/G Ratio) 0.7 1 0.7-1.6 [place] 154502-02-27 12:39:00 Test Item Value Reference Range Interpretation Comments eGFR (test code = eGFR) 55 [place] 658532-02-27 12:39:00 Test Item Value Reference Range Interpretation Comments PTT (test code = PTT) 82.2 s 22.9-35.8 [place] 658532-02-27 12:39:00 Test Item Value Reference Range Interpretation Comments WBC (test code = WBC) 5.5 3.7-10.4 [place] 658532-02-27 12:39:00 Test Item Value Reference Range Interpretation Comments RBC (test code = RBC) 3.77 4.20-5.40 [place] [address]-02-27 12:39:00 Test Item Value Reference Range Interpretation Comments Hgb (test code = Hgb) 9.7 12.0-16.0 [place] [address]-02-27 12:39:00 Test Item Value Reference Range Interpretation Comments Hct (test code = Hct) 30.2 36.0-48.0 [place] [address]-02-27 12:39:00 Test Item Value Reference Range Interpretation Comments MCV (test code = MCV) 79.9 80.0-98.0 [place] [address]-02-27 12:39:00 Test Item Value Reference Range Interpretation Comments MCH (test code = MCH) 25.7 pg 27.0-31.0 [place] 658532-02-27 12:39:00 Test Item Value Reference Range Interpretation Comments MCHC (test code = MCHC) 32.2 32.0-36.0 [place] 658532-02-27 12:39:00 Test Item Value Reference Range Interpretation Comments RDW (test code = RDW) 17.8 11.5-14.5 [place] 658532-02-27 12:39:00 Test Item Value Reference Range Interpretation Comments Platelet (test code = Platelet) 224 133-450 [place] 658532-02-27 12:39:00 Test Item Value Reference Range Interpretation Comments MPV (test code = MPV) 7.8 7.4-10.4 [place] 658532-02-27 12:39:00 Test Item Value Reference Range Interpretation Comments Segs (test code = Segs) 56.4 45.0-75.0 [place] 658532-02-27 12:39:00 Test Item Value Reference Range Interpretation Comments Lymphocytes (test code = Lymphocytes) 28.2 20.0-40.0 [place] 658532-02-27 12:39:00 Test Item Value Reference Range Interpretation Comments Monocytes (test code = Monocytes) 14.2 2.0-12.0 [place] 658532-02-27 12:39:00 Test Item Value Reference Range Interpretation Comments Basophils (test code = 1.2 See_Comment [Aut omated message] The Basophils) system which ge nerated this result tra nsmitted reference range : <=1.0. The reference r shin was not used to int erpret this result as normal/abnormal . [place] 658532-02-27 12:39:00 Test Item Value Reference Range Interpretation Comments Neutrophils # (test code = Neutrophils 3.1 1.5-8.1 #) [place] 658532-02-27 12:39:00 Test Item Value Reference Range Interpretation Comments Lymphocytes # (test code = Lymphocytes 1.5 1.0-5.5 #) [place] 658532-02-27 12:39:00 Test Item Value Reference Range Interpretation Comments Monocytes # (test code 0.8 See_Comment [Aut omated message] The = Monocytes #) system which generated this result tra nsmitted reference range : <=0.8. The reference r shin was not used to int erpret this result as normal/abnormal . [id number] 12:[facility]00 Test Item Value Reference Range Interpretation Comments Basophils # (test code 0.1 See_Comment [Aut omated message] The = Basophils #) system which generated this result tra nsmitted reference range : <=0.2. The reference r shin was not used to int erpret this result as normal/abnormal . [id number] 12:39:00 Test Item Value Reference Range Interpretation Comments C-REACTIVE PROTEIN (test code = 6.6 C-REACTIVE PROTEIN) [facility]2022-02-27 12:39:00 Test Item Value Reference Range Interpretation Comments Ferritin Lvl (test code = Ferritin Lvl) 25 [facility]2022-02-27 12:39:00 Test Item Value Reference Range Interpretation Comments Phosphorus (test code = Phosphorus) 3.5 2.5-4.5 [facility]2022-02-27 12:39:00 Test Item Value Reference Range Interpretation Comments Magnesium Lvl (test code = Magnesium 1.7 1.8-2.4 Lvl) [facility]2022-02-27 12:39:00 Test Item Value Reference Range Interpretation Comments Glucose Lvl (test code = Glucose Lvl) 104 70-99 [facility]2022-02-27 12:39:00 Test Item Value Reference Range Interpretation Comments BUN (test code = BUN) 16 7-22 [facility]2022-02-27 12:39:00 Test Item Value Reference Range Interpretation Comments Creatinine Lvl (test code = Creatinine 0.99 0.50-1.40 Lvl) [facility]2022-02-27 12:39:00 Test Item Value Reference Range Interpretation Comments Sodium Lvl (test code = Sodium Lvl) 139 135-145 [place] 154502-02-27 12:39:00 Test Item Value Reference Range Interpretation Comments Potassium Lvl (test code = Potassium 3.2 3.5-5.1 Lvl) [place] 154502-02-27 12:39:00 Test Item Value Reference Range Interpretation Comments Chloride Lvl (test code = Chloride Lvl) 106 95-109 [place] 154502-02-27 12:39:00 Test Item Value Reference Range Interpretation Comments CO2 (test code = CO2) 31 24-32 [place] 154502-02-27 12:39:00 Test Item Value Reference Range Interpretation Comments Calcium Lvl (test code = Calcium Lvl) 8.6 8.5-10.5 [place] 154502-02-27 12:39:00 Test Item Value Reference Range Interpretation Comments Total Protein (test code = Total 6.2 6.4-8.4 Protein) [place] 154502-02-27 12:39:00 Test Item Value Reference Range Interpretation Comments Albumin Lvl (test code = Albumin Lvl) 2.5 3.5-5.0 [place] 154502-02-27 12:39:00 Test Item Value Reference Range Interpretation Comments ALT (test code = ALT) 64 See_Comment [Auto mated message] The system which ge nerated this result transmit shubham reference range : <=65. The reference range was not used to interpr et this result as elsie l/abnormal. [place] 154502-02-27 12:39:00 Test Item Value Reference Range Interpretation Comments AST (test code = AST) 31 See_Comment [Auto mated message] The system which ge nerated this result transmit shubham reference range : <=37. The reference range was not used to interpr et this result as elsie l/abnormal. [place] 154502-02-27 12:39:00 Test Item Value Reference Range Interpretation Comments Alk Phos (test code = Alk Phos) 135 39-136 [place] 154502-02-27 12:39:00 Test Item Value Reference Range Interpretation Comments Bili Total (test code = Bili Total) 0.3 0.2-1.3 [place] 154502-02-27 12:39:00 Test Item Value Reference Range Interpretation Comments AGAP (test code = AGAP) 5.2 10.0-20.0 [facility] [id number] 12:39:00 Test Item Value Reference Range Interpretation Comments B/C Ratio (test code = B/C Ratio) 16 1 6-25 [facility]2022-02-27 12:39:00 Test Item Value Reference Range Interpretation Comments Globulin (test code = Globulin) 3.7 2.7-4.2 [place] 154502-02-27 12:39:00 Test Item Value Reference Range Interpretation Comments A/G Ratio (test code = A/G Ratio) 0.7 1 0.7-1.6 [place] 154502-02-27 12:39:00 Test Item Value Reference Range Interpretation Comments eGFR (test code = eGFR) 55 [facility]omWIQPBNQPYF7467-44-82 12:39:00 Test Item Value Reference Range Interpretation Comments PTT (test code = PTT) 82.2 s 22.9-35.8 [place] 658532-02-27 12:39:00 Test Item Value Reference Range Interpretation Comments WBC (test code = WBC) 5.5 3.7-10.4 [facility]OxtxmobWYQJPKFJVM1629-75-43 12:39:00 Test Item Value Reference Range Interpretation Comments RBC (test code = RBC) 3.77 4.20-5.40 [id number] 12:39:00 Test Item Value Reference Range Interpretation Comments Hgb (test code = Hgb) 9.7 12.0-16.0 [facility] HospitalFwukqjhGFPSDBWQUP6050-28-59 12:39:00 Test Item Value Reference Range Interpretation Comments Hct (test code = Hct) 30.2 36.0-48.0 [place] 658532-02-27 12:39:00 Test Item Value Reference Range Interpretation Comments MCV (test code = MCV) 79.9 80.0-98.0 [place] 658532-02-27 12:39:00 Test Item Value Reference Range Interpretation Comments MCH (test code = MCH) 25.7 pg 27.0-31.0 [place] 658532-02-27 12:39:00 Test Item Value Reference Range Interpretation Comments MCHC (test code = MCHC) 32.2 32.0-36.0 [place] 658532-02-27 12:39:00 Test Item Value Reference Range Interpretation Comments RDW (test code = RDW) 17.8 11.5-14.5 [place] [address]-02-27 12:39:00 Test Item Value Reference Range Interpretation Comments Platelet (test code = Platelet) 224 133-450 [place] [address]-02-27 12:39:00 Test Item Value Reference Range Interpretation Comments MPV (test code = MPV) 7.8 7.4-10.4 [place] [address]-02-27 12:39:00 Test Item Value Reference Range Interpretation Comments Segs (test code = Segs) 56.4 45.0-75.0 [place] [address]-02-27 12:39:00 Test Item Value Reference Range Interpretation Comments Lymphocytes (test code = Lymphocytes) 28.2 20.0-40.0 [place] [address]-02-27 12:39:00 Test Item Value Reference Range Interpretation Comments Monocytes (test code = Monocytes) 14.2 2.0-12.0 [place] [address]-02-27 12:39:00 Test Item Value Reference Range Interpretation Comments Basophils (test code = 1.2 See_Comment [Aut omated message] The Basophils) system which ge nerated this result tra nsmitted reference range : <=1.0. The reference r shin was not used to int erpret this result as normal/abnormal . [place] [address]-02-27 12:39:00 Test Item Value Reference Range Interpretation Comments Neutrophils # (test code = Neutrophils 3.1 1.5-8.1 #) [place] [address]-02-27 12:39:00 Test Item Value Reference Range Interpretation Comments Lymphocytes # (test code = Lymphocytes 1.5 1.0-5.5 #) [place] [address]-02-27 12:39:00 Test Item Value Reference Range Interpretation Comments Monocytes # (test code 0.8 See_Comment [Aut omated message] The = Monocytes #) system which generated this result tra nsmitted reference range : <=0.8. The reference r shin was not used to int erpret this result as normal/abnormal . [place] [address]-02-27 12:39:00 Test Item Value Reference Range Interpretation Comments Basophils # (test code 0.1 See_Comment [Aut omated message] The = Basophils #) system which generated this result tra nsmitted reference range : <=0.2. The reference r shin was not used to int erpret this result as normal/abnormal . [id number] 12:39:00 Test Item Value Reference Range Interpretation Comments C-REACTIVE PROTEIN (test code = 6.6 C-REACTIVE PROTEIN) [facility]2022-02-27 12:39:00 Test Item Value Reference Range Interpretation Comments Ferritin Lvl (test code = Ferritin Lvl) 25 5-204 [facility]2022-02-27 12:39:00 Test Item Value Reference Range Interpretation Comments Phosphorus (test code = Phosphorus) 3.5 2.5-4.5 [facility]2022-02-27 12:39:00 Test Item Value Reference Range Interpretation Comments Magnesium Lvl (test code = Magnesium 1.7 1.8-2.4 Lvl) [place] 154502-02-27 12:39:00 Test Item Value Reference Range Interpretation Comments Glucose Lvl (test code = Glucose Lvl) 104 70-99 [facility]2022-02-27 12:39:00 Test Item Value Reference Range Interpretation Comments BUN (test code = BUN) 16 7-22 [facility]2022-02-27 12:39:00 Test Item Value Reference Range Interpretation Comments Creatinine Lvl (test code = Creatinine 0.99 0.50-1.40 Lvl) [facility]2022-02-27 12:39:00 Test Item Value Reference Range Interpretation Comments Sodium Lvl (test code = Sodium Lvl) 139 135-145 [facility]2022-02-27 12:39:00 Test Item Value Reference Range Interpretation Comments Potassium Lvl (test code = Potassium 3.2 3.5-5.1 Lvl) [facility]2022-02-27 12:39:00 Test Item Value Reference Range Interpretation Comments Chloride Lvl (test code = Chloride Lvl) 106 95-109 [facility]2022-02-27 12:39:00 Test Item Value Reference Range Interpretation Comments CO2 (test code = CO2) 31 24-32 [facility]2022-02-27 12:39:00 Test Item Value Reference Range Interpretation Comments Calcium Lvl (test code = Calcium Lvl) 8.6 8.5-10.5 [facility] [id number] 12:39:00 Test Item Value Reference Range Interpretation Comments Total Protein (test code = Total 6.2 6.4-8.4 Protein) [place] 154502-02-27 12:39:00 Test Item Value Reference Range Interpretation Comments Albumin Lvl (test code = Albumin Lvl) 2.5 3.5-5.0 [facility] [id number] 12:39:00 Test Item Value Reference Range Interpretation Comments ALT (test code = ALT) 64 See_Comment [Auto mated message] The system which ge nerated this result transmit shubham reference range : <=65. The reference range was not used to interpr et this result as elsie l/abnormal. [facility] [id number] 12:39:00 Test Item Value Reference Range Interpretation Comments AST (test code = AST) 31 See_Comment [Auto mated message] The system which ge nerated this result transmit shubham reference range : <=37. The reference range was not used to interpr et this result as elsie l/abnormal. [facility] [id number] 12:39:00 Test Item Value Reference Range Interpretation Comments Alk Phos (test code = Alk Phos) 135 39-136 [facility] [id number] 12:39:00 Test Item Value Reference Range Interpretation Comments Bili Total (test code = Bili Total) 0.3 0.2-1.3 [facility] [id number] 12:39:00 Test Item Value Reference Range Interpretation Comments AGAP (test code = AGAP) 5.2 10.0-20.0 [email or web address] [id number] 12:39:00 Test Item Value Reference Range Interpretation Comments B/C Ratio (test code = B/C Ratio) 16 1 6-25 [facility] [id number] 12:39:00 Test Item Value Reference Range Interpretation Comments Globulin (test code = Globulin) 3.7 2.7-4.2 [email or web address] [id number] 12:39:00 Test Item Value Reference Range Interpretation Comments A/G Ratio (test code = A/G Ratio) 0.7 1 0.7-1.6 [email or web address] [id number] 12:39:00 Test Item Value Reference Range Interpretation Comments eGFR (test code = eGFR) 55 [place] 658532-02-27 12:39:00 Test Item Value Reference Range Interpretation Comments PTT (test code = PTT) 82.2 s 22.9-35.8 [place] [address]-02-27 12:39:00 Test Item Value Reference Range Interpretation Comments WBC (test code = WBC) 5.5 3.7-10.4 [place] [address]-02-27 12:39:00 Test Item Value Reference Range Interpretation Comments RBC (test code = RBC) 3.77 4.20-5.40 [place] [address]-02-27 12:39:00 Test Item Value Reference Range Interpretation Comments Hgb (test code = Hgb) 9.7 12.0-16.0 [place] [address]-02-27 12:39:00 Test Item Value Reference Range Interpretation Comments Hct (test code = Hct) 30.2 36.0-48.0 [place] [address]-02-27 12:39:00 Test Item Value Reference Range Interpretation Comments MCV (test code = MCV) 79.9 80.0-98.0 [place] [address]-02-27 12:39:00 Test Item Value Reference Range Interpretation Comments MCH (test code = MCH) 25.7 pg 27.0-31.0 [place] [address]-02-27 12:39:00 Test Item Value Reference Range Interpretation Comments MCHC (test code = MCHC) 32.2 32.0-36.0 [place] [address]-02-27 12:39:00 Test Item Value Reference Range Interpretation Comments RDW (test code = RDW) 17.8 11.5-14.5 [place] [address]-02-27 12:39:00 Test Item Value Reference Range Interpretation Comments Platelet (test code = Platelet) 224 133-450 [place] 658532-02-27 12:39:00 Test Item Value Reference Range Interpretation Comments MPV (test code = MPV) 7.8 7.4-10.4 [place] [address]-02-27 12:39:00 Test Item Value Reference Range Interpretation Comments Segs (test code = Segs) 56.4 45.0-75.0 [place] 658532-02-27 12:39:00 Test Item Value Reference Range Interpretation Comments Lymphocytes (test code = Lymphocytes) 28.2 20.0-40.0 [place] 658532-02-27 12:39:00 Test Item Value Reference Range Interpretation Comments Monocytes (test code = Monocytes) 14.2 2.0-12.0 [place] 658532-02-27 12:39:00 Test Item Value Reference Range Interpretation Comments Basophils (test code = 1.2 See_Comment [Aut omated message] The Basophils) system which ge nerated this result tra nsmitted reference range : <=1.0. The reference r shin was not used to int erpret this result as normal/abnormal . [place] 658532-02-27 12:39:00 Test Item Value Reference Range Interpretation Comments Neutrophils # (test code = Neutrophils 3.1 1.5-8.1 #) [place] 658532-02-27 12:39:00 Test Item Value Reference Range Interpretation Comments Lymphocytes # (test code = Lymphocytes 1.5 1.0-5.5 #) [facility] Test Item Value Reference Range Interpretation Comments Monocytes # (test code 0.8 See_Comment [Aut omated message] The = Monocytes #) system which generated this result tra nsmitted reference range : <=0.8. The reference r shin was not used to int erpret this result as normal/abnormal . [place] 658532-02-27 12:39:00 Test Item Value Reference Range Interpretation Comments Basophils # (test code 0.1 See_Comment [Aut omated message] The = Basophils #) system which generated this result tra nsmitted reference range : <=0.2. The reference r shin was not used to int erpret this result as normal/abnormal . [place] 500822-02-27 12:39:00 Test Item Value Reference Range Interpretation Comments C-REACTIVE PROTEIN (test code = 6.6 C-REACTIVE PROTEIN) [place] 658532-02-27 04:45:00 Test Item Value Reference Range Interpretation Comments PTT (test code = PTT) 198.0 s 22.9-35.8 [place] 658532-02-27 04:45:00 Test Item Value Reference Range Interpretation Comments PTT (test code = PTT) 198.0 s 22.9-35.8 [place] 658532-02-27 04:45:00 Test Item Value Reference Range Interpretation Comments PTT (test code = PTT) 198.0 s 22.9-35.8 [place] 154502-02-26 19:48:00 Test Item Value Reference Range Interpretation Comments Glucose Lvl (test code = Glucose Lvl) 109 70-99 [place] 154502-02-26 19:48:00 Test Item Value Reference Range Interpretation Comments BUN (test code = BUN) 12 7-22 [place] 154502-02-26 19:48:00 Test Item Value Reference Range Interpretation Comments Creatinine Lvl (test code = Creatinine 1.13 0.50-1.40 Lvl) [place] 154502-02-26 19:48:00 Test Item Value Reference Range Interpretation Comments Sodium Lvl (test code = Sodium Lvl) 137 135-145 [place] 154502-02-26 19:48:00 Test Item Value Reference Range Interpretation Comments Potassium Lvl (test code = Potassium 3.8 3.5-5.1 Lvl) [place] 154502-02-26 19:48:00 Test Item Value Reference Range Interpretation Comments Chloride Lvl (test code = Chloride Lvl) 103 95-109 [place] 154502-02-26 19:48:00 Test Item Value Reference Range Interpretation Comments CO2 (test code = CO2) 32 24-32 [place] 154502-02-26 19:48:00 Test Item Value Reference Range Interpretation Comments Calcium Lvl (test code = Calcium Lvl) 8.4 8.5-10.5 [place] 154502-02-26 19:48:00 Test Item Value Reference Range Interpretation Comments Total Protein (test code = Total 6.4 6.4-8.4 Protein) [place] 154502-02-26 19:48:00 Test Item Value Reference Range Interpretation Comments Albumin Lvl (test code = Albumin Lvl) 2.8 3.5-5.0 [place] 154502-02-26 19:48:00 Test Item Value Reference Range Interpretation Comments ALT (test code = ALT) 94 See_Comment [Auto mated message] The system which ge nerated this result transmit shubham reference range : <=65. The reference range was not used to interpr et this result as elsie l/abnormal. [facility] APSX [id number] 19:48:00 Test Item Value Reference Range Interpretation Comments AST (test code = AST) 69 See_Comment [Auto mated message] The system which ge nerated this result transmit shubham reference range : <=37. The reference range was not used to interpr et this result as elsie l/abnormal. [facility] [id number] 19:48:00 Test Item Value Reference Range Interpretation Comments Alk Phos (test code = Alk Phos) 154 39-136 [facility] APSX [id number] 19:48:00 Test Item Value Reference Range Interpretation Comments Bili Total (test code = Bili Total) 0.3 0.2-1.3 [facility] [id number] 19:48:00 Test Item Value Reference Range Interpretation Comments AGAP (test code = AGAP) 5.8 10.0-20.0 [facility] [id number] 19:48:00 Test Item Value Reference Range Interpretation Comments B/C Ratio (test code = B/C Ratio) 11 1 6-25 [facility] [id number] 19:48:00 Test Item Value Reference Range Interpretation Comments Globulin (test code = Globulin) 3.6 2.7-4.2 [facility] APSX [id number] 19:48:00 Test Item Value Reference Range Interpretation Comments A/G Ratio (test code = A/G Ratio) 0.8 1 0.7-1.6 [facility] [id number] 19:48:00 Test Item Value Reference Range Interpretation Comments eGFR (test code = eGFR) 47 [facility] APSX [id number] 19:48:00 Test Item Value Reference Range Interpretation Comments Glucose Lvl (test code = Glucose Lvl) 109 70-99 [facility] [id number] 19:48:00 Test Item Value Reference Range Interpretation Comments BUN (test code = BUN) 12 7-22 [facility] [id number] 19:48:00 Test Item Value Reference Range Interpretation Comments Creatinine Lvl (test code = Creatinine 1.13 0.50-1.40 Lvl) [place] 154502-02-26 19:48:00 Test Item Value Reference Range Interpretation Comments Sodium Lvl (test code = Sodium Lvl) 137 135-145 [place] 154502-02-26 19:48:00 Test Item Value Reference Range Interpretation Comments Potassium Lvl (test code = Potassium 3.8 3.5-5.1 Lvl) [place] [address]-02-26 19:48:00 Test Item Value Reference Range Interpretation Comments Chloride Lvl (test code = Chloride Lvl) 103 95-109 [place] [address]-02-26 19:48:00 Test Item Value Reference Range Interpretation Comments CO2 (test code = CO2) 32 24-32 [place] 154502-02-26 19:48:00 Test Item Value Reference Range Interpretation Comments Calcium Lvl (test code = Calcium Lvl) 8.4 8.5-10.5 [place] [address]-02-26 19:48:00 Test Item Value Reference Range Interpretation Comments Total Protein (test code = Total 6.4 6.4-8.4 Protein) [place] 154502-02-26 19:48:00 Test Item Value Reference Range Interpretation Comments Albumin Lvl (test code = Albumin Lvl) 2.8 3.5-5.0 [place] 154502-02-26 19:48:00 Test Item Value Reference Range Interpretation Comments ALT (test code = ALT) 94 See_Comment [Auto mated message] The system which [employer] nerated this result transmit shubham reference range : <=65. The reference range was not used to interpr et this result as elsie l/abnormal. [place] 154502-02-26 19:48:00 Test Item Value Reference Range Interpretation Comments AST (test code = AST) 69 See_Comment [Auto mated message] The system which [employer] nerated this result transmit shubham reference range : <=37. The reference range was not used to interpr et this result as elsie l/abnormal. [place] 154502-02-26 19:48:00 Test Item Value Reference Range Interpretation Comments Alk Phos (test code = Alk Phos) 154 39-136 [address]02-26 19:48:00 Test Item Value Reference Range Interpretation Comments Bili Total (test code = Bili Total) 0.3 0.2-1.3 [place] 154502-02-26 19:48:00 Test Item Value Reference Range Interpretation Comments AGAP (test code = AGAP) 5.8 10.0-20.0 [place] 154502-02-26 19:48:00 Test Item Value Reference Range Interpretation Comments B/C Ratio (test code = B/C Ratio) 11 1 6-25 [place] 154502-02-26 19:48:00 Test Item Value Reference Range Interpretation Comments Globulin (test code = Globulin) 3.6 2.7-4.2 [place] 154502-02-26 19:48:00 Test Item Value Reference Range Interpretation Comments A/G Ratio (test code = A/G Ratio) 0.8 1 0.7-1.6 [place] 154502-02-26 19:48:00 Test Item Value Reference Range Interpretation Comments eGFR (test code = eGFR) 47 [place] 154502-02-26 19:48:00 Test Item Value Reference Range Interpretation Comments Glucose Lvl (test code = Glucose Lvl) 109 70-99 [place] 154502-02-26 19:48:00 Test Item Value Reference Range Interpretation Comments BUN (test code = BUN) 12 -22 [place] 154502-02-26 19:48:00 Test Item Value Reference Range Interpretation Comments Creatinine Lvl (test code = Creatinine 1.13 0.50-1.40 Lvl) [place] 154502-02-26 19:48:00 Test Item Value Reference Range Interpretation Comments Sodium Lvl (test code = Sodium Lvl) 137 135-145 [place] 154502-02-26 19:48:00 Test Item Value Reference Range Interpretation Comments Potassium Lvl (test code = Potassium 3.8 3.5-5.1 Lvl) [place] 154502-02-26 19:48:00 Test Item Value Reference Range Interpretation Comments Chloride Lvl (test code = Chloride Lvl) 103 95-109 [place] 154502-02-26 19:48:00 Test Item Value Reference Range Interpretation Comments CO2 (test code = CO2) 32 24-32 [facility]2022-02-26 19:48:00 Test Item Value Reference Range Interpretation Comments Calcium Lvl (test code = Calcium Lvl) 8.4 8.5-10.5 [facility]2022-02-26 19:48:00 Test Item Value Reference Range Interpretation Comments Total Protein (test code = Total 6.4 6.4-8.4 Protein) [facility]2022-02-26 19:48:00 Test Item Value Reference Range Interpretation Comments Albumin Lvl (test code = Albumin Lvl) 2.8 3.5-5.0 [facility] [id number] 19:48:00 Test Item Value Reference Range Interpretation Comments ALT (test code = ALT) 94 See_Comment [Auto mated message] The system which ge nerated this result transmit shubham reference range : <=65. The reference range was not used to interpr et this result as elsie l/abnormal. [facility] [id number] 19:48:00 Test Item Value Reference Range Interpretation Comments AST (test code = AST) 69 See_Comment [Auto mated message] The system which ge nerated this result transmit shubham reference range : <=37. The reference range was not used to interpr et this result as elsie l/abnormal. [facility] [id number] 19:48:00 Test Item Value Reference Range Interpretation Comments Alk Phos (test code = Alk Phos) 154 39-136 [facility] [id number] 19:48:00 Test Item Value Reference Range Interpretation Comments Bili Total (test code = Bili Total) 0.3 0.2-1.3 [facility] [id number] 19:48:00 Test Item Value Reference Range Interpretation Comments AGAP (test code = AGAP) 5.8 10.0-20.0 [facility] [id number] 19:48:00 Test Item Value Reference Range Interpretation Comments B/C Ratio (test code = B/C Ratio) 11 1 6-25 [facility] [id number] 19:48:00 Test Item Value Reference Range Interpretation Comments Globulin (test code = Globulin) 3.6 2.7-4.2 [place] [address]-02-26 19:48:00 Test Item Value Reference Range Interpretation Comments A/G Ratio (test code = A/G Ratio) 0.8 1 0.7-1.6 [address]02-26 19:48:00 Test Item Value Reference Range Interpretation Comments eGFR (test code = eGFR) [address]02-26 12:38:00 Test Item Value Reference Range Interpretation Comments Magnesium Lvl (test code = Magnesium 1.8 1.8-2.4 Lvl) [address]02-26 12:38:00 Test Item Value Reference Range Interpretation Comments Phosphorus (test code = Phosphorus) 3.3 2.5-4.5 [address]02-26 12:38:00 Test Item Value Reference Range Interpretation Comments Procalcitonin Lvl (test 0.06 See_Comment [Au tomated message] code = Procalcitonin Lvl) Th e system which generated this result transmitted ref erence range: <=0.10. The reference range was not used to interpr et this result as normal/abnormal . [address]02-26 12:38:00 Test Item Value Reference Range Interpretation Comments Digoxin Lvl (test code = Digoxin Lvl) 1.3 0.8-2.0 [address]02-26 12:38:00 Test Item Value Reference Range Interpretation Comments Magnesium Lvl (test code = Magnesium 1.8 1.8-2.4 Lvl) [address]02-26 12:38:00 Test Item Value Reference Range Interpretation Comments Phosphorus (test code = Phosphorus) 3.3 2.5-4.5 [address]02-26 12:38:00 Test Item Value Reference Range Interpretation Comments Procalcitonin Lvl (test 0.06 See_Comment [Au tomated message] code = Procalcitonin Lvl) Th e system which generated this result transmitted ref erence range: <=0.10. The reference range was not used to interpr et this result as normal/abnormal . [address]02-26 12:38:00 Test Item Value Reference Range Interpretation Comments Digoxin Lvl (test code = Digoxin Lvl) 1.3 0.8-2.0 [place] 154502-02-26 12:38:00 Test Item Value Reference Range Interpretation Comments Magnesium Lvl (test code = Magnesium 1.8 1.8-2.4 Lvl) [place] 154502-02-26 12:38:00 Test Item Value Reference Range Interpretation Comments Phosphorus (test code = Phosphorus) 3.3 2.5-4.5 [place] 154502-02-26 12:38:00 Test Item Value Reference Range Interpretation Comments Procalcitonin Lvl (test 0.06 See_Comment [Au tomated message] code = Procalcitonin Lvl) e system which generated this result transmitted ref erence range: <=0.10. The reference range was not used to interpr et this result as normal/abnormal . [id number] 12:38:00 Test Item Value Reference Range Interpretation Comments Digoxin Lvl (test code = Digoxin Lvl) 1.3 0.8-2.0 [place] 154502-02-26 07:36:58 Test Item Value Reference Range Interpretation Comments Glucose Lvl (test code = Glucose Lvl) 103 70-99 [place] 154502-02-26 07:36:58 Test Item Value Reference Range Interpretation Comments BUN (test code = BUN) 14 7-22 [place] [address]-02-26 07:36:58 Test Item Value Reference Range Interpretation Comments Creatinine Lvl (test code = Creatinine 0.97 0.50-1.40 Lvl) [place] 154502-02-26 07:36:58 Test Item Value Reference Range Interpretation Comments Sodium Lvl (test code = Sodium Lvl) 138 135-145 [place] 154502-02-26 07:36:58 Test Item Value Reference Range Interpretation Comments Potassium Lvl (test code = Potassium 3.6 3.5-5.1 Lvl) [place] 154502-02-26 07:36:58 Test Item Value Reference Range Interpretation Comments Chloride Lvl (test code = Chloride Lvl) 102 95-109 [place] 154502-02-26 07:36:58 Test Item Value Reference Range Interpretation Comments CO2 (test code = CO2) 31 24-32 [place] 154502-02-26 07:36:58 Test Item Value Reference Range Interpretation Comments Calcium Lvl (test code = Calcium Lvl) 8.6 8.5-10.5 [place] 154502-02-26 07:36:58 Test Item Value Reference Range Interpretation Comments Total Protein (test code = Total 6.5 6.4-8.4 Protein) [place] [address]-02-26 07:36:58 Test Item Value Reference Range Interpretation Comments Albumin Lvl (test code = Albumin Lvl) 2.8 3.5-5.0 [place] [address]-02-26 07:36:58 Test Item Value Reference Range Interpretation Comments ALT (test code = ALT) 131 See_Comment [Auto mated message] The system which ge nerated this result transmit shubham reference range : <=65. The reference range was not used to interpr et this result as elsie l/abnormal. [place] 154502-02-26 07:36:58 Test Item Value Reference Range Interpretation Comments AST (test code = AST) 150 See_Comment [Auto mated message] The system which ge nerated this result transmit shubham reference range : <=37. The reference range was not used to interpr et this result as elsie l/abnormal. [place] 154502-02-26 07:36:58 Test Item Value Reference Range Interpretation Comments Alk Phos (test code = Alk Phos) 172 39-136 [place] 154502-02-26 07:36:58 Test Item Value Reference Range Interpretation Comments Bili Total (test code = Bili Total) 0.3 0.2-1.3 [place] 154502-02-26 07:36:58 Test Item Value Reference Range Interpretation Comments AGAP (test code = AGAP) 8.6 10.0-20.0 [facility] [id number] 07:36:58 Test Item Value Reference Range Interpretation Comments B/C Ratio (test code = B/C Ratio) 14 1 6-25 [place] 154502-02-26 07:36:58 Test Item Value Reference Range Interpretation Comments Globulin (test code = Globulin) 3.7 2.7-4.2 [place] 154502-02-26 07:36:58 Test Item Value Reference Range Interpretation Comments A/G Ratio (test code = A/G Ratio) 0.8 1 0.7-1.6 [place] [address]-02-26 07:36:58 Test Item Value Reference Range Interpretation Comments eGFR (test code = eGFR) 57 [place] 154502-02-26 07:36:58 Test Item Value Reference Range Interpretation Comments Glucose Lvl (test code = Glucose Lvl) 103 70-99 [place] 154502-02-26 07:36:58 Test Item Value Reference Range Interpretation Comments BUN (test code = BUN) 14 -22 [place] 154502-02-26 07:36:58 Test Item Value Reference Range Interpretation Comments Creatinine Lvl (test code = Creatinine 0.97 0.50-1.40 Lvl) [place] 154502-02-26 07:36:58 Test Item Value Reference Range Interpretation Comments Sodium Lvl (test code = Sodium Lvl) 138 135-145 [place] 154502-02-26 07:36:58 Test Item Value Reference Range Interpretation Comments Potassium Lvl (test code = Potassium 3.6 3.5-5.1 Lvl) [place] 154502-02-26 07:36:58 Test Item Value Reference Range Interpretation Comments Chloride Lvl (test code = Chloride Lvl) 102 95-109 [place] 154502-02-26 07:36:58 Test Item Value Reference Range Interpretation Comments CO2 (test code = CO2) 31 24-32 [place] 154502-02-26 07:36:58 Test Item Value Reference Range Interpretation Comments Calcium Lvl (test code = Calcium Lvl) 8.6 8.5-10.5 [place] 154502-02-26 07:36:58 Test Item Value Reference Range Interpretation Comments Total Protein (test code = Total 6.5 6.4-8.4 Protein) [place] 154502-02-26 07:36:58 Test Item Value Reference Range Interpretation Comments Albumin Lvl (test code = Albumin Lvl) 2.8 3.5-5.0 [place] 154502-02-26 07:36:58 Test Item Value Reference Range Interpretation Comments ALT (test code = ALT) 131 See_Comment [Auto mated message] The system which ge nerated this result transmit shubham reference range : <=65. The reference range was not used to interpr et this result as elsie l/abnormal. [facility] [id number] 07:36:58 Test Item Value Reference Range Interpretation Comments AST (test code = AST) 150 See_Comment [Auto mated message] The system which ge nerated this result transmit shubham reference range : <=37. The reference range was not used to interpr et this result as elsie l/abnormal. [facility] [id number] 07:36:58 Test Item Value Reference Range Interpretation Comments Alk Phos (test code = Alk Phos) 172 39-136 [facility] [id number] 07:36:58 Test Item Value Reference Range Interpretation Comments Bili Total (test code = Bili Total) 0.3 0.2-1.3 [facility] [id number] 07:36:58 Test Item Value Reference Range Interpretation Comments AGAP (test code = AGAP) 8.6 10.0-20.0 [facility] [id number] 07:36:58 Test Item Value Reference Range Interpretation Comments B/C Ratio (test code = B/C Ratio) 14 1 6-25 [facility] [id number] 07:36:58 Test Item Value Reference Range Interpretation Comments Globulin (test code = Globulin) 3.7 2.7-4.2 [facility] [id number] 07:36:58 Test Item Value Reference Range Interpretation Comments A/G Ratio (test code = A/G Ratio) 0.8 1 0.7-1.6 [facility] [id number] 07:36:58 Test Item Value Reference Range Interpretation Comments eGFR (test code = eGFR) 57 [place] 154502-02-26 07:36:58 Test Item Value Reference Range Interpretation Comments Glucose Lvl (test code = Glucose Lvl) 103 70-99 [facility] [id number] 07:36:58 Test Item Value Reference Range Interpretation Comments BUN (test code = BUN) 14 7-22 [facility] [id number] 07:36:58 Test Item Value Reference Range Interpretation Comments Creatinine Lvl (test code = Creatinine 0.97 0.50-1.40 Lvl) [place] 154502-02-26 07:36:58 Test Item Value Reference Range Interpretation Comments Sodium Lvl (test code = Sodium Lvl) 138 135-145 [place] 154502-02-26 07:36:58 Test Item Value Reference Range Interpretation Comments Potassium Lvl (test code = Potassium 3.6 3.5-5.1 Lvl) [place] 154502-02-26 07:36:58 Test Item Value Reference Range Interpretation Comments Chloride Lvl (test code = Chloride Lvl) 102 95-109 [place] [address]-02-26 07:36:58 Test Item Value Reference Range Interpretation Comments CO2 (test code = CO2) 31 24-32 [place] 154502-02-26 07:36:58 Test Item Value Reference Range Interpretation Comments Calcium Lvl (test code = Calcium Lvl) 8.6 8.5-10.5 [place] 154502-02-26 07:36:58 Test Item Value Reference Range Interpretation Comments Total Protein (test code = Total 6.5 6.4-8.4 Protein) [place] 154502-02-26 07:36:58 Test Item Value Reference Range Interpretation Comments Albumin Lvl (test code = Albumin Lvl) 2.8 3.5-5.0 [place] 154502-02-26 07:36:58 Test Item Value Reference Range Interpretation Comments ALT (test code = ALT) 131 See_Comment [Auto mated message] The system which ge nerated this result transmit shubham reference range : <=65. The reference range was not used to interpr et this result as elsie l/abnormal. [place] 154502-02-26 07:36:58 Test Item Value Reference Range Interpretation Comments AST (test code = AST) 150 See_Comment [Auto mated message] The system which ge nerated this result transmit shubham reference range : <=37. The reference range was not used to interpr et this result as elsie l/abnormal. [place] 154502-02-26 07:36:58 Test Item Value Reference Range Interpretation Comments Alk Phos (test code = Alk Phos) 172 39-136 [place] 154502-02-26 07:36:58 Test Item Value Reference Range Interpretation Comments Bili Total (test code = Bili Total) 0.3 0.2-1.3 [facility] [id number] 07:36:58 Test Item Value Reference Range Interpretation Comments AGAP (test code = AGAP) 8.6 10.0-20.0 [facility] [id number] 07:36:58 Test Item Value Reference Range Interpretation Comments B/C Ratio (test code = B/C Ratio) 14 1 6-25 [facility] [id number] 07:36:58 Test Item Value Reference Range Interpretation Comments Globulin (test code = Globulin) 3.7 2.7-4.2 [facility] [id number] 07:36:58 Test Item Value Reference Range Interpretation Comments A/G Ratio (test code = A/G Ratio) 0.8 1 0.7-1.6 [facility] [id number] 07:36:58 Test Item Value Reference Range Interpretation Comments eGFR (test code = eGFR) 57 [facility] [id number] 23:10:00 Test Item Value Reference Range Interpretation Comments HS Troponin I (test code = HS Troponin 676 I) [facility] [id number] 23:10:00 Test Item Value Reference Range Interpretation Comments HS Troponin I (test code = HS Troponin 676 I) [facility] [id number] 23:10:00 Test Item Value Reference Range Interpretation Comments HS Troponin I (test code = HS Troponin 676 I) [facility] [id number] 23:09:00 Test Item Value Reference Range Interpretation Comments Phosphorus (test code = Phosphorus) 4.0 2.5-4.5 [facility] [id number] 23:09:00 Test Item Value Reference Range Interpretation Comments Magnesium Lvl (test code = Magnesium 2.0 1.8-2.4 Lvl) [facility] [id number] 23:09:00 Test Item Value Reference Range Interpretation Comments Phosphorus (test code = Phosphorus) 4.0 2.5-4.5 [facility] [facility] [place] APSX [id number] 23:09:00 Test Item Value Reference Range Interpretation Comments Magnesium Lvl (test code = Magnesium 2.0 1.8-2.4 Lvl) [facility] [id number] 23:09:00 Test Item Value Reference Range Interpretation Comments Phosphorus (test code = Phosphorus) 4.0 2.5-4.5 [facility] MorralCHEM [id number] 23:09:00 Test Item Value Reference Range Interpretation Comments Magnesium Lvl (test code = Magnesium 2.0 1.8-2.4 Lvl) [id number] 09:29:00 Test Item Value Reference Range Interpretation Comments Coronavirus (COVID-19) Detected MADELINE (test code = 4*ABN*(11/08/21 3:29 Coronavirus (COVID-19) AM) MADELINE) [facility] AND [id number] 09:29:00 Test Item Value Reference Range Interpretation Comments UA Color (test code = Yellow *NA*(11/08/21 UA Color) 3:29 AM) [facility] AND [id number] 09:29:00 Test Item Value Reference Range Interpretation Comments UA Turbidity (test code = Clear (11/08/21 3:29 UA Turbidity) AM) [facility] AND [id number] 09:29:00 Test Item Value Reference Range Interpretation Comments UA Spec Grav (test code = UA Spec 1.020 1 Grav) [facility] AND [id number] 09:29:00 Test Item Value Reference Range Interpretation Comments UA pH (test code = UA pH) 6.0 1 5.0-8.0 [facility] AND [id number] 09:29:00 Test Item Value Reference Range Interpretation Comments UA Protein (test code = UA Protein) 30 mg/dL [facility] AND [id number] 09:29:00 Test Item Value Reference Range Interpretation Comments UA Glucose (test code Negative (11/08/21 3:29 = UA Glucose) AM) [facility] AND [id number] 09:29:00 Test Item Value Reference Range Interpretation Comments UA Ketones (test code Negative *NA*(11/08/21 = UA Ketones) 3:29 AM) [facility] AND [id number] 09:29:00 Test Item Value Reference Range Interpretation Comments UA Bili (test code = Negative *NA*(11/08/21 UA Bili) 3:29 AM) [facility] [id number] 09:29:00 Test Item Value Reference Range Interpretation Comments UA Blood (test code = Negative (11/08/21 3:29 UA Blood) AM) [facility] [id number] 09:29:00 Test Item Value Reference Range Interpretation Comments UA Urobilinogen (test code = UA 2.0 0.1-1.0 Urobilinogen) [facility] [id number] 09:29:00 Test Item Value Reference Range Interpretation Comments UA Nitrite (test code Negative (11/08/21 3:29 = UA Nitrite) AM) [facility] [id number] 09:29:00 Test Item Value Reference Range Interpretation Comments UA Leuk Est (test code Trace *ABN*(11/08/21 = UA Leuk Est) 3:29 AM) [facility] AND [id number] 09:29:00 Test Item Value Reference Range Interpretation Comments UA Sq Epi (test code = UA Sq Moderate /LPF Epi) [facility] AND [id number] 09:29:00 Test Item Value Reference Range Interpretation Comments UA WBC (test code = 5 See_Comment [Automa shubham message] The UA WBC) system which ge nerated this result transmit shubham reference range : <=5. The reference range was not used to interpr et this result as elsie l/abnormal. [facility] AND [id number] 09:29:00 Test Item Value Reference Range Interpretation Comments UA RBC (test code = 3 See_Comment [Automa shubham message] The UA RBC) system which ge nerated this result transmit shubham reference range : <=2. The reference range was not used to interpr et this result as elsie l/abnormal. [facility] [id number] 09:29:00 Test Item Value Reference Range Interpretation Comments UA Mucus (test code = UA Mucus) Few /LPF [facility] [id number] 09:29:00 Test Item Value Reference Range Interpretation Comments Coronavirus (COVID-19) Detected MADELINE (test code = 4*ABN*(11/08/21 3:29 Coronavirus (COVID-19) AM) MADELINE) [facility] [place]annJE[facility] AND [id number] 09:29:00 Test Item Value Reference Range Interpretation Comments UA Color (test code = Yellow *NA*(11/08/21 UA Color) 3:29 AM) [facility] [id number] 09:29:00 Test Item Value Reference Range Interpretation Comments UA Turbidity (test code = Clear (11/08/21 3:29 UA Turbidity) AM) [facility] AND [id number] 09:29:00 Test Item Value Reference Range Interpretation Comments UA Spec Grav (test code = UA Spec 1.020 1 Grav) [facility] AND [id number] 09:29:00 Test Item Value Reference Range Interpretation Comments UA pH (test code = UA pH) 6.0 1 5.0-8.0 [facility] AND [id number] 09:29:00 Test Item Value Reference Range Interpretation Comments UA Protein (test code = UA Protein) 30 mg/dL [facility] AND [id number] 09:29:00 Test Item Value Reference Range Interpretation Comments UA Glucose (test code Negative (11/08/21 3:29 = UA Glucose) AM) [facility] AND [id number] 09:29:00 Test Item Value Reference Range Interpretation Comments UA Ketones (test code Negative *NA*(11/08/21 = UA Ketones) 3:29 AM) [facility] [place]annJE[facility] AND [id number] 09:29:00 Test Item Value Reference Range Interpretation Comments UA Bili (test code = Negative *NA*(11/08/21 UA Bili) 3:29 AM) [facility] AND [id number] 09:29:00 Test Item Value Reference Range Interpretation Comments UA Blood (test code = Negative (11/08/21 3:29 UA Blood) AM) [facility] AND [id number] 09:29:00 Test Item Value Reference Range Interpretation Comments UA Urobilinogen (test code = UA 2.0 0.1-1.0 Urobilinogen) [facility] [id number] 09:29:00 Test Item Value Reference Range Interpretation Comments UA Nitrite (test code Negative (11/08/21 3:29 = UA Nitrite) AM) [facility] [id number] 09:29:00 Test Item Value Reference Range Interpretation Comments UA Leuk Est (test code Trace *ABN*(11/08/21 = UA Leuk Est) 3:29 AM) [facility] [id number] 09:29:00 Test Item Value Reference Range Interpretation Comments UA Sq Epi (test code = UA Sq Moderate /LPF Epi) [facility] [id number] 09:29:00 Test Item Value Reference Range Interpretation Comments UA WBC (test code = 5 See_Comment [Automa shubham message] The UA WBC) system which ge nerated this result transmit shubham reference range : <=5. The reference range was not used to interpr et this result as eslie l/abnormal. [facility] [id number] 09:29:00 Test Item Value Reference Range Interpretation Comments UA RBC (test code = 3 See_Comment [Automa shubham message] The UA RBC) system which ge nerated this result transmit shubham reference range : <=2. The reference range was not used to interpr et this result as elsie l/abnormal. [facility] [id number] 09:29:00 Test Item Value Reference Range Interpretation Comments UA Mucus (test code = UA Mucus) Few /LPF [facility] [id number] 09:29:00 Test Item Value Reference Range Interpretation Comments Coronavirus (COVID-19) Detected MADELINE (test code = 4*ABN*(11/08/21 3:29 Coronavirus (COVID-19) AM) MADELINE) [facility] [id number] 09:29:00 Test Item Value Reference Range Interpretation Comments UA Color (test code = Yellow *NA*(11/08/21 UA Color) 3:29 AM) [facility] [id number] 09:29:00 Test Item Value Reference Range Interpretation Comments UA Turbidity (test code = Clear (11/08/21 3:29 UA Turbidity) AM) [facility] [id number] 09:29:00 Test Item Value Reference Range Interpretation Comments UA Spec Grav (test code = UA Spec 1.020 1 Grav) [facility] [id number] 09:29:00 Test Item Value Reference Range Interpretation Comments UA pH (test code = UA pH) 6.0 1 5.0-8.0 [facility] AND [id number] 09:29:00 Test Item Value Reference Range Interpretation Comments UA Protein (test code = UA Protein) 30 mg/dL [facility] AND [id number] 09:29:00 Test Item Value Reference Range Interpretation Comments UA Glucose (test code Negative (11/08/21 3:29 = UA Glucose) AM) [facility] AND [id number] 09:29:00 Test Item Value Reference Range Interpretation Comments UA Ketones (test code Negative *NA*(11/08/21 = UA Ketones) 3:29 AM) [facility] AND [id number] 09:29:00 Test Item Value Reference Range Interpretation Comments UA Bili (test code = Negative *NA*(11/08/21 UA Bili) 3:29 AM) [facility] AND [id number] 09:29:00 Test Item Value Reference Range Interpretation Comments UA Blood (test code = Negative (11/08/21 3:29 UA Blood) AM) [facility] AND [id number] 09:29:00 Test Item Value Reference Range Interpretation Comments UA Urobilinogen (test code = UA 2.0 0.1-1.0 Urobilinogen) [facility] AND [id number] 09:29:00 Test Item Value Reference Range Interpretation Comments UA Nitrite (test code Negative (11/08/21 3:29 = UA Nitrite) AM) [facility] AND [id number] 09:29:00 Test Item Value Reference Range Interpretation Comments UA Leuk Est (test code Trace *ABN*(11/08/21 = UA Leuk Est) 3:29 AM) [facility] AND [id number] 09:29:00 Test Item Value Reference Range Interpretation Comments UA Sq Epi (test code = UA Sq Moderate /LPF Epi) [facility] AND [id number] 09:29:00 Test Item Value Reference Range Interpretation Comments UA WBC (test code = 5 See_Comment [Automa shubham message] The UA WBC) system which ge nerated this result transmit shubham reference range : <=5. The reference range was not used to interpr et this result as elsie l/abnormal. [facility] [place]oriyaannURINE AND [id number] 09:29:00 Test Item Value Reference Range Interpretation Comments UA RBC (test code = 3 See_Comment [Automa shubham message] The UA RBC) system which ge nerated this result transmit shubham reference range : <=2. The reference range was not used to interpr et this result as elsie l/abnormal. [facility] [place] [facility]yaannURINE AND [id number] 09:29:00 Test Item Value Reference Range Interpretation Comments UA Mucus (test code = UA Mucus) Few /LPF [facility]annBACT[facility] - [id number] 08:10:00 Test Item Value Reference Range Interpretation Comments MRSA by PCR (test Negative (11/08/21 2:10 code = MRSA by PCR) AM) [facility]annCARDIAC [id number] 08:10:00 Test Item Value Reference Range Interpretation Comments BNP (test code = BNP) 134 [facility]annCARDIAC [id number] 08:10:00 Test Item Value Reference Range Interpretation Comments HS Troponin I Baseline (test code = HS 612 Troponin I Baseline) [facility]annCARDIAC [id number] 08:10:00 Test Item Value Reference Range Interpretation Comments HS Troponin I 1 Hr (test code = HS 599 Troponin I 1 Hr) [facility]annCARDIAC [id number] 08:10:00 Test Item Value Reference Range Interpretation Comments HS Troponin I 0 to 1 Hour Delta (test -13 code = HS Troponin I 0 to 1 Hour Delta) [facility]annCHEM [id number] 08:10:00 Test Item Value Reference Range Interpretation Comments Procalcitonin Lvl (test 0.05 See_Comment [Au tomated message] code = Procalcitonin Lvl) Th e system which generated this result transmitted ref erence range: <=0.10. The reference range was not used to interpr et this result as normal/abnormal . [facility] [id number] 08:10:00 Test Item Value Reference Range Interpretation Comments PT (test code = PT) 17.4 s 12.0-14.7 [facility] CenterRmrdethKVNEVJGKPS5525-19-10 08:10:00 Test Item Value Reference Range Interpretation Comments INR (test code = INR) 1.44 1 0.85-1.17 [id number] 08:10:00 Test Item Value Reference Range Interpretation Comments WBC (test code = WBC) 5.8 3.7-10.4 [facility] [id number] 08:10:00 Test Item Value Reference Range Interpretation Comments RBC (test code = RBC) 4.11 4.20-5.40 [facility] Hos[id number] 08:10:00 Test Item Value Reference Range Interpretation Comments Hgb (test code = Hgb) 10.3 12.0-16.0 [place] 658532-02-25 08:10:00 Test Item Value Reference Range Interpretation Comments Hct (test code = Hct) 32.9 36.0-48.0 [facility] H[id number] 08:10:00 Test Item Value Reference Range Interpretation Comments MCV (test code = MCV) 80.1 80.0-98.0 [facility] HospitalGwmbfaeDTIADJSWZM5372-25-04 08:10:00 Test Item Value Reference Range Interpretation Comments MCH (test code = MCH) 25.0 pg 27.0-31.0 [facility] Hos[id number] 08:10:00 Test Item Value Reference Range Interpretation Comments MCHC (test code = MCHC) 31.2 32.0-36.0 [facility] H[id number] 08:10:00 Test Item Value Reference Range Interpretation Comments RDW (test code = RDW) 17.6 11.5-14.5 [facility] H[id number] 08:10:00 Test Item Value Reference Range Interpretation Comments Platelet (test code = Platelet) 269 133-450 [facility] Ho[id number] 08:10:00 Test Item Value Reference Range Interpretation Comments MPV (test code = MPV) 7.8 7.4-10.4 [place] 658532-02-25 08:10:00 Test Item Value Reference Range Interpretation Comments Segs (test code = Segs) 72.6 45.0-75.0 [place] 658532-02-25 08:10:00 Test Item Value Reference Range Interpretation Comments Lymphocytes (test code = Lymphocytes) 16.8 20.0-40.0 [place] 658532-02-25 08:10:00 Test Item Value Reference Range Interpretation Comments Monocytes (test code = Monocytes) 9.5 2.0-12.0 [facility] Hos[id number] 08:10:00 Test Item Value Reference Range Interpretation Comments Basophils (test code = 1.1 See_Comment [Aut omated message] The Basophils) system which ge nerated this result tra nsmitted reference range : <=1.0. The reference r shin was not used to int erpret this result as normal/abnormal . [facility] Ho[id number] 08:10:00 Test Item Value Reference Range Interpretation Comments Neutrophils # (test code = Neutrophils 4.2 1.5-8.1 #) [facility] HospitalXnosxsxURNLXOHONE2930-27-07 08:10:00 Test Item Value Reference Range Interpretation Comments Lymphocytes # (test code = Lymphocytes 1.0 1.0-5.5 #) [facility] HospitalThvvaglBJXXFKLIYP4497-14-09 08:10:00 Test Item Value Reference Range Interpretation Comments Monocytes # (test code 0.6 See_Comment [Aut omated message] The = Monocytes #) system which generated this result tra nsmitted reference range : <=0.8. The reference r shin was not used to int erpret this result as normal/abnormal . [facility] HospitalNbffkueWFHOZCXKHO5289-12-87 08:10:00 Test Item Value Reference Range Interpretation Comments Basophils # (test code 0.1 See_Comment [Aut omated message] The = Basophils #) system which generated this result tra nsmitted reference range : <=0.2. The reference r shin was not used to int erpret this result as normal/abnormal . [facility] - [id number] 08:10:00 Test Item Value Reference Range Interpretation Comments MRSA by PCR (test Negative (11/08/21 2:10 code = MRSA by PCR) AM) [facility]manCARDIAC [id number] 08:10:00 Test Item Value Reference Range Interpretation Comments BNP (test code = BNP) 134 [facility] [id number] 08:10:00 Test Item Value Reference Range Interpretation Comments HS Troponin I Baseline (test code = HS 612 Troponin I Baseline) [facility]aufmanTanslerAC [id number] 08:10:00 Test Item Value Reference Range Interpretation Comments HS Troponin I 1 Hr (test code = HS 599 Troponin I 1 Hr) [facility]manCARDIAC [id number] 08:10:00 Test Item Value Reference Range Interpretation Comments HS Troponin I 0 to 1 Hour Delta (test -13 code = HS Troponin I 0 to 1 Hour Delta) [facility]manCHEM [id number] 08:10:00 Test Item Value Reference Range Interpretation Comments Procalcitonin Lvl (test 0.05 See_Comment [Au tomated message] code = Procalcitonin Lvl) Th e system which generated this result transmitted ref erence range: <=0.10. The reference range was not used to interpr et this result as normal/abnormal . [facility] HospitalHxlraruFFMRUMHBWE0456-30-06 08:10:00 Test Item Value Reference Range Interpretation Comments PT (test code = PT) 17.4 s 12.0-14.7 [facility] HospitalNqfkjtxTXKYSZZKEP1652-27-99 08:10:00 Test Item Value Reference Range Interpretation Comments INR (test code = INR) 1.44 1 0.85-1.17 [facility] HospitalWezwqudTTBQTVLGPU6050-45-64 08:10:00 Test Item Value Reference Range Interpretation Comments WBC (test code = WBC) 5.8 3.7-10.4 [facility] HospitalFbsapkzKAJMIJHYVZ9974-55-97 08:10:00 Test Item Value Reference Range Interpretation Comments RBC (test code = RBC) 4.11 4.20-5.40 [facility] HospitalPagzikcZCDHQRQSON6028-42-06 08:10:00 Test Item Value Reference Range Interpretation Comments Hgb (test code = Hgb) 10.3 12.0-16.0 [facility] HospitalAhgjoctUWDEYGNVOR8278-62-57 08:10:00 Test Item Value Reference Range Interpretation Comments Hct (test code = Hct) 32.9 36.0-48.0 [place] 658532-02-25 08:10:00 Test Item Value Reference Range Interpretation Comments MCV (test code = MCV) 80.1 80.0-98.0 [place] 658532-02-25 08:10:00 Test Item Value Reference Range Interpretation Comments MCH (test code = MCH) 25.0 pg 27.0-31.0 [place] 658532-02-25 08:10:00 Test Item Value Reference Range Interpretation Comments MCHC (test code = MCHC) 31.2 32.0-36.0 [place] 658532-02-25 08:10:00 Test Item Value Reference Range Interpretation Comments RDW (test code = RDW) 17.6 11.5-14.5 [place] 658532-02-25 08:10:00 Test Item Value Reference Range Interpretation Comments Platelet (test code = Platelet) 269 133-450 [place] 658532-02-25 08:10:00 Test Item Value Reference Range Interpretation Comments MPV (test code = MPV) 7.8 7.4-10.4 [place] [address]-02-25 08:10:00 Test Item Value Reference Range Interpretation Comments Segs (test code = Segs) 72.6 45.0-75.0 [place] [address]-02-25 08:10:00 Test Item Value Reference Range Interpretation Comments Lymphocytes (test code = Lymphocytes) 16.8 20.0-40.0 [place] 658532-02-25 08:10:00 Test Item Value Reference Range Interpretation Comments Monocytes (test code = Monocytes) 9.5 2.0-12.0 [place] [address]-02-25 08:10:00 Test Item Value Reference Range Interpretation Comments Basophils (test code = 1.1 See_Comment [Aut omated message] The Basophils) system which ge nerated this result tra nsmitted reference range : <=1.0. The reference r shin was not used to int erpret this result as normal/abnormal . [place] 658532-02-25 08:10:00 Test Item Value Reference Range Interpretation Comments Neutrophils # (test code = Neutrophils 4.2 1.5-8.1 #) [place] [address]-02-25 08:10:00 Test Item Value Reference Range Interpretation Comments Lymphocytes # (test code = Lymphocytes 1.0 1.0-5.5 #) [place] [address]-02-25 08:10:00 Test Item Value Reference Range Interpretation Comments Monocytes # (test code 0.6 See_Comment [Aut omated message] The = Monocytes #) system which generated this result tra nsmitted reference range : <=0.8. The reference r shin was not used to int erpret this result as normal/abnormal . [facility] CenterDjaawwqFWQLFHSMWJ9635-81-36 08:10:00 Test Item Value Reference Range Interpretation Comments Basophils # (test code 0.1 See_Comment [Aut omated message] The = Basophils #) system which generated this result tra nsmitted reference range : <=0.2. The reference r shin was not used to int erpret this result as normal/abnormal . [facility] CenterannBACTERIAL - [id number] 08:10:00 Test Item Value Reference Range Interpretation Comments MRSA by PCR (test Negative (11/08/21 2:10 code = MRSA by PCR) AM) [facility]annCARDIAC [id number] 08:10:00 Test Item Value Reference Range Interpretation Comments BNP (test code = BNP) 134 [facility] CenterannCARDIAC [id number] 08:10:00 Test Item Value Reference Range Interpretation Comments HS Troponin I Baseline (test code = HS 612 Troponin I Baseline) [facility]annCARDIAC [id number] 08:10:00 Test Item Value Reference Range Interpretation Comments HS Troponin I 1 Hr (test code = HS 599 Troponin I 1 Hr) [facility] CenterannCARDIAC [id number] 08:10:00 Test Item Value Reference Range Interpretation Comments HS Troponin I 0 to 1 Hour Delta (test -13 code = HS Troponin I 0 to 1 Hour Delta) [facility] CenterannCHEM [id number] 08:10:00 Test Item Value Reference Range Interpretation Comments Procalcitonin Lvl (test 0.05 See_Comment [Au tomated message] code = Procalcitonin Lvl) Th e system which generated this result transmitted ref erence range: <=0.10. The reference range was not used to interpr et this result as normal/abnormal . [facility] CenterEqgkduvRAQCNPELUU1399-52-24 08:10:00 Test Item Value Reference Range Interpretation Comments PT (test code = PT) 17.4 s 12.0-14.7 [facility] CenterXrxgfuiFLCASAYAER6893-96-28 08:10:00 Test Item Value Reference Range Interpretation Comments INR (test code = INR) 1.44 1 0.85-1.17 [facility] CenterSswybjuPFKORAFEOW7724-97-84 08:10:00 Test Item Value Reference Range Interpretation Comments WBC (test code = WBC) 5.8 3.7-10.4 [place] 658532-02-25 08:10:00 Test Item Value Reference Range Interpretation Comments RBC (test code = RBC) 4.11 4.20-5.40 [place] 658532-02-25 08:10:00 Test Item Value Reference Range Interpretation Comments Hgb (test code = Hgb) 10.3 12.0-16.0 [place] [address]-02-25 08:10:00 Test Item Value Reference Range Interpretation Comments Hct (test code = Hct) 32.9 36.0-48.0 [place] [address]-02-25 08:10:00 Test Item Value Reference Range Interpretation Comments MCV (test code = MCV) 80.1 80.0-98.0 [place] [address]-02-25 08:10:00 Test Item Value Reference Range Interpretation Comments MCH (test code = MCH) 25.0 pg 27.0-31.0 [place] 658532-02-25 08:10:00 Test Item Value Reference Range Interpretation Comments MCHC (test code = MCHC) 31.2 32.0-36.0 [place] 658532-02-25 08:10:00 Test Item Value Reference Range Interpretation Comments RDW (test code = RDW) 17.6 11.5-14.5 [place] 658532-02-25 08:10:00 Test Item Value Reference Range Interpretation Comments Platelet (test code = Platelet) 269 133-450 [place] 658532-02-25 08:10:00 Test Item Value Reference Range Interpretation Comments MPV (test code = MPV) 7.8 7.4-10.4 [place] [address]-02-25 08:10:00 Test Item Value Reference Range Interpretation Comments Segs (test code = Segs) 72.6 45.0-75.0 [place] 658532-02-25 08:10:00 Test Item Value Reference Range Interpretation Comments Lymphocytes (test code = Lymphocytes) 16.8 20.0-40.0 [place] 658532-02-25 08:10:00 Test Item Value Reference Range Interpretation Comments Monocytes (test code = Monocytes) 9.5 2.0-12.0 [facility]WIQBHFRYQO1152-78-17 08:10:00 Test Item Value Reference Range Interpretation Comments Basophils (test code = 1.1 See_Comment [Aut omated message] The Basophils) system which ge nerated this result tra nsmitted reference range : <=1.0. The reference r shin was not used to int erpret this result as normal/abnormal . [facility]DuspbwyJTTPMARXIO6718-38-24 08:10:00 Test Item Value Reference Range Interpretation Comments Neutrophils # (test code = Neutrophils 4.2 1.5-8.1 #) [facility] HospitalMmwzsobLEDWEPZYFE0368-52-83 08:10:00 Test Item Value Reference Range Interpretation Comments Lymphocytes # (test code = Lymphocytes 1.0 1.0-5.5 #) [facility] HospitalUvwgupeXULIYHBFBF0558-88-56 08:10:00 Test Item Value Reference Range Interpretation Comments Monocytes # (test code 0.6 See_Comment [Aut omated message] The = Monocytes #) system which generated this result tra nsmitted reference range : <=0.8. The reference r shin was not used to int erpret this result as normal/abnormal . [facility] HospitalWschorbNCHBPGBBSP4284-81-18 08:10:00 Test Item Value Reference Range Interpretation Comments Basophils # (test code 0.1 See_Comment [Aut omated message] The = Basophils #) system which generated this result tra nsmitted reference range : <=0.2. The reference r shin was not used to int erpret this result as normal/abnormal . [facility] [id number] 16:36:00 Test Item Value Reference Range Interpretation Comments Result 2 (Urine Culture) See Result Comment (test code = Result 2 (Urine Culture)) [facility] [id number] 16:36:00 Test Item Value Reference Range Interpretation Comments Result 2 (Urine Culture) See Result Comment (test code = Result 2 (Urine Culture)) [facility] [id number] 16:36:00 Test Item Value Reference Range Interpretation Comments Result 2 (Urine Culture) See Result Comment (test code = Result 2 (Urine Culture)) [facility] HospitalYwjlqpcTWQRLXOZXO7622-02-54 10:23:00 Test Item Value Reference Range Interpretation Comments WBC (test code = WBC) 6.8 3.7-10.4 [facility] HospitalFkixzngNBAIEHUVFO3416-83-24 10:23:00 Test Item Value Reference Range Interpretation Comments RBC (test code = RBC) 3.46 4.20-5.40 [facility] HospitalTqxytvzLRDKLTDEWV2026-54-18 10:23:00 Test Item Value Reference Range Interpretation Comments Hgb (test code = Hgb) 9.1 12.0-16.0 [facility] HospitalGgfrzljEODPZEJEJA7002-22-16 10:23:00 Test Item Value Reference Range Interpretation Comments Hct (test code = Hct) 28.9 36.0-48.0 [facility] HospitalAjnwkerUDHIXJDKXG7503-52-28 10:23:00 Test Item Value Reference Range Interpretation Comments MCV (test code = MCV) 83.6 80.0-98.0 [facility] HospitalTxsbxrrKYYRXORHML8322-06-57 10:23:00 Test Item Value Reference Range Interpretation Comments MCH (test code = MCH) 26.4 pg 27.0-31.0 [facility] HospitalCookjxwCLGGDYJOET6422-43-09 10:23:00 Test Item Value Reference Range Interpretation Comments MCHC (test code = MCHC) 31.6 32.0-36.0 [facility] HospitalOqdwajfRPGEIOKAYK7651-53-92 10:23:00 Test Item Value Reference Range Interpretation Comments RDW (test code = RDW) 18.2 11.5-14.5 [facility] HospitalNedzyniDAZGYPECOD6090-58-36 10:23:00 Test Item Value Reference Range Interpretation Comments Platelet (test code = Platelet) 400 133-450 [facility] HospitalHfytehlCIBEYWDJAJ6664-14-45 10:23:00 Test Item Value Reference Range Interpretation Comments MPV (test code = MPV) 7.2 7.4-10.4 [facility] HospitalRekqshyDZMKJQURVW2832-12-96 10:23:00 Test Item Value Reference Range Interpretation Comments WBC (test code = WBC) 6.8 3.7-10.4 [facility] HospitalTdkfrraEDHEMGGLQM2007-20-94 10:23:00 Test Item Value Reference Range Interpretation Comments RBC (test code = RBC) 3.46 4.20-5.40 [facility] HospitalSybryjgBVMOLDQXOP8773-18-70 10:23:00 Test Item Value Reference Range Interpretation Comments Hgb (test code = Hgb) 9.1 12.0-16.0 [place] [address]-02-08 10:23:00 Test Item Value Reference Range Interpretation Comments Hct (test code = Hct) 28.9 36.0-48.0 [facility] HospitalPbhxadfQGDGTEPJJZ7570-56-60 10:23:00 Test Item Value Reference Range Interpretation Comments MCV (test code = MCV) 83.6 80.0-98.0 [place] 658532-02-08 10:23:00 Test Item Value Reference Range Interpretation Comments MCH (test code = MCH) 26.4 pg 27.0-31.0 [place] 658532-02-08 10:23:00 Test Item Value Reference Range Interpretation Comments MCHC (test code = MCHC) 31.6 32.0-36.0 [facility] HospitalJzktrclQCXFVTEHUI5245-73-06 10:23:00 Test Item Value Reference Range Interpretation Comments RDW (test code = RDW) 18.2 11.5-14.5 [place] 658532-02-08 10:23:00 Test Item Value Reference Range Interpretation Comments Platelet (test code = Platelet) 400 133-450 [facility] HospitalAwamghfAMXNVKWUNC7150-90-60 10:23:00 Test Item Value Reference Range Interpretation Comments MPV (test code = MPV) 7.2 7.4-10.4 [facility] HospitalIdqqczlLIEHDDWWJQ8760-42-96 10:23:00 Test Item Value Reference Range Interpretation Comments WBC (test code = WBC) 6.8 3.7-10.4 [facility] HospitalXkgzwbvLDVZSBXWYC3590-25-26 10:23:00 Test Item Value Reference Range Interpretation Comments RBC (test code = RBC) 3.46 4.20-5.40 [facility] HospitalThewetvWEUWWROAHJ3060-64-98 10:23:00 Test Item Value Reference Range Interpretation Comments Hgb (test code = Hgb) 9.1 12.0-16.0 [place] [address]-02-08 10:23:00 Test Item Value Reference Range Interpretation Comments Hct (test code = Hct) 28.9 36.0-48.0 [place] 658532-02-08 10:23:00 Test Item Value Reference Range Interpretation Comments MCV (test code = MCV) 83.6 80.0-98.0 [place] 658532-02-08 10:23:00 Test Item Value Reference Range Interpretation Comments MCH (test code = MCH) 26.4 pg 27.0-31.0 [facility] HospitalEzxpuhrLAWCDIRCSC8585-82-82 10:23:00 Test Item Value Reference Range Interpretation Comments MCHC (test code = MCHC) 31.6 32.0-36.0 [place] 658532-02-08 10:23:00 Test Item Value Reference Range Interpretation Comments RDW (test code = RDW) 18.2 11.5-14.5 [facility] HospitalCgezfdlBPNTTARRWZ6202-36-57 10:23:00 Test Item Value Reference Range Interpretation Comments Platelet (test code = Platelet) 400 133-450 [facility] HospitalOrgimuzIWSLEFRIFK8875-01-79 10:23:00 Test Item Value Reference Range Interpretation Comments MPV (test code = MPV) 7.2 7.4-10.4 [facility]2022-02-07 10:52:00 Test Item Value Reference Range Interpretation Comments Glucose Lvl (test code = Glucose Lvl) 96 70-99 [facility]2022-02-07 10:52:00 Test Item Value Reference Range Interpretation Comments BUN (test code = BUN) 11 7-22 [facility]2022-02-07 10:52:00 Test Item Value Reference Range Interpretation Comments Creatinine Lvl (test code = Creatinine 0.89 0.50-1.40 Lvl) [facility]2022-02-07 10:52:00 Test Item Value Reference Range Interpretation Comments Sodium Lvl (test code = Sodium Lvl) 138 135-145 [facility]2022-02-07 10:52:00 Test Item Value Reference Range Interpretation Comments Potassium Lvl (test code = Potassium 4.0 3.5-5.1 Lvl) [facility]2022-02-07 10:52:00 Test Item Value Reference Range Interpretation Comments Chloride Lvl (test code = Chloride Lvl) 102 95-109 [facility]2022-02-07 10:52:00 Test Item Value Reference Range Interpretation Comments CO2 (test code = CO2) 32 24-32 [facility]2022-02-07 10:52:00 Test Item Value Reference Range Interpretation Comments AGAP (test code = AGAP) 8.0 10.0-20.0 [place] 154502-02-07 10:52:00 Test Item Value Reference Range Interpretation Comments Calcium Lvl (test code = Calcium Lvl) 8.2 8.5-10.5 [email or web address] [id number] 10:52:00 Test Item Value Reference Range Interpretation Comments B/C Ratio (test code = B/C Ratio) 12 1 6-25 [facility] [id number] 10:52:00 Test Item Value Reference Range Interpretation Comments Total Protein (test code = Total 5.9 6.4-8.4 Protein) [email or web address] [id number] 10:52:00 Test Item Value Reference Range Interpretation Comments ALT (test code = ALT) 19 See_Comment [Auto mated message] The system which ge nerated this result transmit shubham reference range : <=65. The reference range was not used to interpr et this result as elsie l/abnormal. [email or web address] [id number] 10:52:00 Test Item Value Reference Range Interpretation Comments AST (test code = AST) 11 See_Comment [Auto mated message] The system which ge nerated this result transmit shubham reference range : <=37. The reference range was not used to interpr et this result as elsie l/abnormal. [facility] APSX [id number] 10:52:00 Test Item Value Reference Range Interpretation Comments Alk Phos (test code = Alk Phos) 99 39-136 [facility] [id number] 10:52:00 Test Item Value Reference Range Interpretation Comments Bili Total (test code = Bili Total) 0.3 0.2-1.3 [facility] APSX [id number] 10:52:00 Test Item Value Reference Range Interpretation Comments eGFR (test code = eGFR) 63 [facility] [id number] 10:52:00 Test Item Value Reference Range Interpretation Comments Albumin Lvl (test code = Albumin Lvl) 2.2 3.5-5.0 [facility] [id number] 10:52:00 Test Item Value Reference Range Interpretation Comments Globulin (test code = Globulin) 3.7 2.7-4.2 [facility] APSX [id number] 10:52:00 Test Item Value Reference Range Interpretation Comments A/G Ratio (test code = A/G Ratio) 0.6 1 0.7-1.6 [place] 154502-02-07 10:52:00 Test Item Value Reference Range Interpretation Comments Glucose Lvl (test code = Glucose Lvl) 96 70-99 [place] 154502-02-07 10:52:00 Test Item Value Reference Range Interpretation Comments BUN (test code = BUN) 11 7-22 [place] 154502-02-07 10:52:00 Test Item Value Reference Range Interpretation Comments Creatinine Lvl (test code = Creatinine 0.89 0.50-1.40 Lvl) [place] 154502-02-07 10:52:00 Test Item Value Reference Range Interpretation Comments Sodium Lvl (test code = Sodium Lvl) 138 135-145 [place] 154502-02-07 10:52:00 Test Item Value Reference Range Interpretation Comments Potassium Lvl (test code = Potassium 4.0 3.5-5.1 Lvl) [place] 154502-02-07 10:52:00 Test Item Value Reference Range Interpretation Comments Chloride Lvl (test code = Chloride Lvl) 102 95-109 [place] 154502-02-07 10:52:00 Test Item Value Reference Range Interpretation Comments CO2 (test code = CO2) 32 24-32 [facility]2022-02-07 10:52:00 Test Item Value Reference Range Interpretation Comments AGAP (test code = AGAP) 8.0 10.0-20.0 [place] 154502-02-07 10:52:00 Test Item Value Reference Range Interpretation Comments Calcium Lvl (test code = Calcium Lvl) 8.2 8.5-10.5 [place] 154502-02-07 10:52:00 Test Item Value Reference Range Interpretation Comments B/C Ratio (test code = B/C Ratio) 12 1 6-25 [place] 154502-02-07 10:52:00 Test Item Value Reference Range Interpretation Comments Total Protein (test code = Total 5.9 6.4-8.4 Protein) [facility]2022-02-07 10:52:00 Test Item Value Reference Range Interpretation Comments ALT (test code = ALT) 19 See_Comment [Auto mated message] The system which ge nerated this result transmit shubham reference range : <=65. The reference range was not used to interpr et this result as elsie l/abnormal. [email or web address] [id number] 10:52:00 Test Item Value Reference Range Interpretation Comments AST (test code = AST) 11 See_Comment [Auto mated message] The system which ge nerated this result transmit shubham reference range : <=37. The reference range was not used to interpr et this result as elsie l/abnormal. [facility] [id number] 10:52:00 Test Item Value Reference Range Interpretation Comments Alk Phos (test code = Alk Phos) 99 39-136 [facility] [id number] 10:52:00 Test Item Value Reference Range Interpretation Comments Bili Total (test code = Bili Total) 0.3 0.2-1.3 [facility] [id number] 10:52:00 Test Item Value Reference Range Interpretation Comments eGFR (test code = eGFR) 63 [facility] [id number] 10:52:00 Test Item Value Reference Range Interpretation Comments Albumin Lvl (test code = Albumin Lvl) 2.2 3.5-5.0 [facility] [id number] 10:52:00 Test Item Value Reference Range Interpretation Comments Globulin (test code = Globulin) 3.7 2.7-4.2 [facility] [id number] 10:52:00 Test Item Value Reference Range Interpretation Comments A/G Ratio (test code = A/G Ratio) 0.6 1 0.7-1.6 [facility] [id number] 10:52:00 Test Item Value Reference Range Interpretation Comments Glucose Lvl (test code = Glucose Lvl) 96 70-99 [facility] [id number] 10:52:00 Test Item Value Reference Range Interpretation Comments BUN (test code = BUN) 11 7-22 [facility] [id number] 10:52:00 Test Item Value Reference Range Interpretation Comments Creatinine Lvl (test code = Creatinine 0.89 0.50-1.40 Lvl) [facility] [id number] 10:52:00 Test Item Value Reference Range Interpretation Comments Sodium Lvl (test code = Sodium Lvl) 138 135-145 [place] 154502-02-07 10:52:00 Test Item Value Reference Range Interpretation Comments Potassium Lvl (test code = Potassium 4.0 3.5-5.1 Lvl) [facility]2022-02-07 10:52:00 Test Item Value Reference Range Interpretation Comments Chloride Lvl (test code = Chloride Lvl) 102 95-109 [place] 154502-02-07 10:52:00 Test Item Value Reference Range Interpretation Comments CO2 (test code = CO2) 32 24-32 [place] 154502-02-07 10:52:00 Test Item Value Reference Range Interpretation Comments AGAP (test code = AGAP) 8.0 10.0-20.0 [place] 154502-02-07 10:52:00 Test Item Value Reference Range Interpretation Comments Calcium Lvl (test code = Calcium Lvl) 8.2 8.5-10.5 [place] 154502-02-07 10:52:00 Test Item Value Reference Range Interpretation Comments B/C Ratio (test code = B/C Ratio) 12 1 6-25 [place] 154502-02-07 10:52:00 Test Item Value Reference Range Interpretation Comments Total Protein (test code = Total 5.9 6.4-8.4 Protein) [facility]2022-02-07 10:52:00 Test Item Value Reference Range Interpretation Comments ALT (test code = ALT) 19 See_Comment [Auto mated message] The system which ge nerated this result transmit shubham reference range : <=65. The reference range was not used to interpr et this result as elsie l/abnormal. [facility]2022-02-07 10:52:00 Test Item Value Reference Range Interpretation Comments AST (test code = AST) 11 See_Comment [Auto mated message] The system which ge nerated this result transmit shubham reference range : <=37. The reference range was not used to interpr et this result as elsie l/abnormal. [place] 154502-02-07 10:52:00 Test Item Value Reference Range Interpretation Comments Alk Phos (test code = Alk Phos) 99 39-136 [facility]2022-02-07 10:52:00 Test Item Value Reference Range Interpretation Comments Bili Total (test code = Bili Total) 0.3 0.2-1.3 [facility]2022-02-07 10:52:00 Test Item Value Reference Range Interpretation Comments eGFR (test code = eGFR) 63 [facility]2022-02-07 10:52:00 Test Item Value Reference Range Interpretation Comments Albumin Lvl (test code = Albumin Lvl) 2.2 3.5-5.0 [facility]2022-02-07 10:52:00 Test Item Value Reference Range Interpretation Comments Globulin (test code = Globulin) 3.7 2.7-4.2 [facility]2022-02-07 10:52:00 Test Item Value Reference Range Interpretation Comments A/G Ratio (test code = A/G Ratio) 0.6 1 0.7-1.6 [place] 154502-02-06 10:05:00 Test Item Value Reference Range Interpretation Comments Glucose Lvl (test code = Glucose Lvl) 116 70-99 [facility]2022-02-06 10:05:00 Test Item Value Reference Range Interpretation Comments BUN (test code = BUN) 13 7-22 [facility]2022-02-06 10:05:00 Test Item Value Reference Range Interpretation Comments Creatinine Lvl (test code = Creatinine 0.95 0.50-1.40 Lvl) [facility]2022-02-06 10:05:00 Test Item Value Reference Range Interpretation Comments Sodium Lvl (test code = Sodium Lvl) 138 135-145 [facility]2022-02-06 10:05:00 Test Item Value Reference Range Interpretation Comments Potassium Lvl (test code = Potassium 3.9 3.5-5.1 Lvl) [facility]2022-02-06 10:05:00 Test Item Value Reference Range Interpretation Comments Chloride Lvl (test code = Chloride Lvl) 101 95-109 [facility]2022-02-06 10:05:00 Test Item Value Reference Range Interpretation Comments CO2 (test code = CO2) 32 24-32 [facility]2022-02-06 10:05:00 Test Item Value Reference Range Interpretation Comments AGAP (test code = AGAP) 8.9 10.0-20.0 [place] 154502-02-06 10:05:00 Test Item Value Reference Range Interpretation Comments Calcium Lvl (test code = Calcium Lvl) 8.4 8.5-10.5 [facility]2022-02-06 10:05:00 Test Item Value Reference Range Interpretation Comments eGFR (test code = eGFR) 58 [facility]XidbrwxDRLKSFWQDY2405-62-84 10:05:00 Test Item Value Reference Range Interpretation Comments WBC (test code = WBC) 8.2 3.7-10.4 [facility] HospitalNzwmipvEMVWIZUPNI9206-17-83 10:05:00 Test Item Value Reference Range Interpretation Comments RBC (test code = RBC) 3.43 4.20-5.40 [facility] HospitalKfufhrnUHKFVNXQZO8663-05-82 10:05:00 Test Item Value Reference Range Interpretation Comments Hgb (test code = Hgb) 9.1 12.0-16.0 [facility] HospitalDqhuqnbCEYPYJXLDY5421-05-27 10:05:00 Test Item Value Reference Range Interpretation Comments Hct (test code = Hct) 28.5 36.0-48.0 [facility] HospitalVkbwwtpCVKKGSRKIN5846-92-63 10:05:00 Test Item Value Reference Range Interpretation Comments MCV (test code = MCV) 83.0 80.0-98.0 [facility] HospitalFlfvjgmSJDDTXOKWB2581-96-62 10:05:00 Test Item Value Reference Range Interpretation Comments MCH (test code = MCH) 26.7 pg 27.0-31.0 [facility] HospitalKkibrskANPNOBLJDT5064-31-15 10:05:00 Test Item Value Reference Range Interpretation Comments MCHC (test code = MCHC) 32.1 32.0-36.0 [facility] HospitalXbptfovEUOJNFADRH1951-06-48 10:05:00 Test Item Value Reference Range Interpretation Comments RDW (test code = RDW) 17.9 11.5-14.5 [facility] HospitalBskeoumDSRWIDDUQI0718-38-40 10:05:00 Test Item Value Reference Range Interpretation Comments Platelet (test code = Platelet) 376 133-450 [facility] HospitalMlcwcejWNUDJNQSEF0798-06-54 10:05:00 Test Item Value Reference Range Interpretation Comments MPV (test code = MPV) 7.0 7.4-10.4 [facility]2022-02-06 10:05:00 Test Item Value Reference Range Interpretation Comments Glucose Lvl (test code = Glucose Lvl) 116 70-99 [facility]2022-02-06 10:05:00 Test Item Value Reference Range Interpretation Comments BUN (test code = BUN) 13 7-22 [place] 154502-02-06 10:05:00 Test Item Value Reference Range Interpretation Comments Creatinine Lvl (test code = Creatinine 0.95 0.50-1.40 Lvl) [place] 154502-02-06 10:05:00 Test Item Value Reference Range Interpretation Comments Sodium Lvl (test code = Sodium Lvl) 138 135-145 [place] 154502-02-06 10:05:00 Test Item Value Reference Range Interpretation Comments Potassium Lvl (test code = Potassium 3.9 3.5-5.1 Lvl) [facility]2022-02-06 10:05:00 Test Item Value Reference Range Interpretation Comments Chloride Lvl (test code = Chloride Lvl) 101 95-109 [place] 154502-02-06 10:05:00 Test Item Value Reference Range Interpretation Comments CO2 (test code = CO2) 32 24-32 [place] 154502-02-06 10:05:00 Test Item Value Reference Range Interpretation Comments AGAP (test code = AGAP) 8.9 10.0-20.0 [facility]2022-02-06 10:05:00 Test Item Value Reference Range Interpretation Comments Calcium Lvl (test code = Calcium Lvl) 8.4 8.5-10.5 [place] 154502-02-06 10:05:00 Test Item Value Reference Range Interpretation Comments eGFR (test code = eGFR) 58 [facility] HospitalQbhfswlTQAQFGXJAJ5066-90-37 10:05:00 Test Item Value Reference Range Interpretation Comments WBC (test code = WBC) 8.2 3.7-10.4 [place] 658532-02-06 10:05:00 Test Item Value Reference Range Interpretation Comments RBC (test code = RBC) 3.43 4.20-5.40 [place] 658532-02-06 10:05:00 Test Item Value Reference Range Interpretation Comments Hgb (test code = Hgb) 9.1 12.0-16.0 [place] 658532-02-06 10:05:00 Test Item Value Reference Range Interpretation Comments Hct (test code = Hct) 28.5 36.0-48.0 [place] 658532-02-06 10:05:00 Test Item Value Reference Range Interpretation Comments MCV (test code = MCV) 83.0 80.0-98.0 [place] 658532-02-06 10:05:00 Test Item Value Reference Range Interpretation Comments MCH (test code = MCH) 26.7 pg 27.0-31.0 [facility] HospitalNpejiglPPVZYBJSKG5225-62-82 10:05:00 Test Item Value Reference Range Interpretation Comments MCHC (test code = MCHC) 32.1 32.0-36.0 [place] 658532-02-06 10:05:00 Test Item Value Reference Range Interpretation Comments RDW (test code = RDW) 17.9 11.5-14.5 [place] 658532-02-06 10:05:00 Test Item Value Reference Range Interpretation Comments Platelet (test code = Platelet) 376 133-450 [facility] HospitalYtwgbajTWSSTFSUGF2602-55-71 10:05:00 Test Item Value Reference Range Interpretation Comments MPV (test code = MPV) 7.0 7.4-10.4 [facility]2022-02-06 10:05:00 Test Item Value Reference Range Interpretation Comments Glucose Lvl (test code = Glucose Lvl) 116 70-99 [facility]2022-02-06 10:05:00 Test Item Value Reference Range Interpretation Comments BUN (test code = BUN) 13 7-22 [facility]2022-02-06 10:05:00 Test Item Value Reference Range Interpretation Comments Creatinine Lvl (test code = Creatinine 0.95 0.50-1.40 Lvl) [facility]2022-02-06 10:05:00 Test Item Value Reference Range Interpretation Comments Sodium Lvl (test code = Sodium Lvl) 138 135-145 [facility]2022-02-06 10:05:00 Test Item Value Reference Range Interpretation Comments Potassium Lvl (test code = Potassium 3.9 3.5-5.1 Lvl) [facility]2022-02-06 10:05:00 Test Item Value Reference Range Interpretation Comments Chloride Lvl (test code = Chloride Lvl) 101 95-109 [facility]2022-02-06 10:05:00 Test Item Value Reference Range Interpretation Comments CO2 (test code = CO2) 32 24-32 [facility]2022-02-06 10:05:00 Test Item Value Reference Range Interpretation Comments AGAP (test code = AGAP) 8.9 10.0-20.0 [facility]2022-02-06 10:05:00 Test Item Value Reference Range Interpretation Comments Calcium Lvl (test code = Calcium Lvl) 8.4 8.5-10.5 [facility]2022-02-06 10:05:00 Test Item Value Reference Range Interpretation Comments eGFR (test code = eGFR) 58 [facility]swYMGHNZXHRM8217-39-80 10:05:00 Test Item Value Reference Range Interpretation Comments WBC (test code = WBC) 8.2 3.7-10.4 [facility]NykqjdvHVFGYAMLVS6036-88-22 10:05:00 Test Item Value Reference Range Interpretation Comments RBC (test code = RBC) 3.43 4.20-5.40 [facility] HospitalYmzqrrePZSAMVLEAJ9888-72-37 10:05:00 Test Item Value Reference Range Interpretation Comments Hgb (test code = Hgb) 9.1 12.0-16.0 [facility] HospitalZmpxelcVTJKIWJWRP0856-25-69 10:05:00 Test Item Value Reference Range Interpretation Comments Hct (test code = Hct) 28.5 36.0-48.0 [facility]HkvkrvzJJPDYJGOOW8447-77-94 10:05:00 Test Item Value Reference Range Interpretation Comments MCV (test code = MCV) 83.0 80.0-98.0 [place] 658532-02-06 10:05:00 Test Item Value Reference Range Interpretation Comments MCH (test code = MCH) 26.7 pg 27.0-31.0 [place] 658532-02-06 10:05:00 Test Item Value Reference Range Interpretation Comments MCHC (test code = MCHC) 32.1 32.0-36.0 [facility] HospitalUmrmyppHDJGFYXAME4569-57-44 10:05:00 Test Item Value Reference Range Interpretation Comments RDW (test code = RDW) 17.9 11.5-14.5 [facility] HospitalFmeuxlqEKAEFWGBGZ1853-96-90 10:05:00 Test Item Value Reference Range Interpretation Comments Platelet (test code = Platelet) 376 133-450 [place] 658532-02-06 10:05:00 Test Item Value Reference Range Interpretation Comments MPV (test code = MPV) 7.0 7.4-10.4 [facility]2022-02-05 11:10:00 Test Item Value Reference Range Interpretation Comments BUN (test code = BUN) 14 7-22 [place] 154502-02-05 11:10:00 Test Item Value Reference Range Interpretation Comments Creatinine Lvl (test code = Creatinine 0.92 0.50-1.40 Lvl) [place] 154502-02-05 11:10:00 Test Item Value Reference Range Interpretation Comments Sodium Lvl (test code = Sodium Lvl) 139 135-145 [place] 154502-02-05 11:10:00 Test Item Value Reference Range Interpretation Comments Potassium Lvl (test code = Potassium 3.7 3.5-5.1 Lvl) [place] 154502-02-05 11:10:00 Test Item Value Reference Range Interpretation Comments Chloride Lvl (test code = Chloride Lvl) 103 95-109 [place] 154502-02-05 11:10:00 Test Item Value Reference Range Interpretation Comments CO2 (test code = CO2) 31 24-32 [facility]2022-02-05 11:10:00 Test Item Value Reference Range Interpretation Comments Calcium Lvl (test code = Calcium Lvl) 8.2 8.5-10.5 [place] 154502-02-05 11:10:00 Test Item Value Reference Range Interpretation Comments AGAP (test code = AGAP) 8.7 10.0-20.0 [place] 154502-02-05 11:10:00 Test Item Value Reference Range Interpretation Comments eGFR (test code = eGFR) 60 [place] 658532-02-05 11:10:00 Test Item Value Reference Range Interpretation Comments WBC (test code = WBC) 7.2 3.7-10.4 [place] 658532-02-05 11:10:00 Test Item Value Reference Range Interpretation Comments RBC (test code = RBC) 3.30 4.20-5.40 [place] 658532-02-05 11:10:00 Test Item Value Reference Range Interpretation Comments Hgb (test code = Hgb) 8.7 12.0-16.0 [place] [address]-02-05 11:10:00 Test Item Value Reference Range Interpretation Comments Hct (test code = Hct) 27.7 36.0-48.0 [place] 658532-02-05 11:10:00 Test Item Value Reference Range Interpretation Comments MCV (test code = MCV) 84.0 80.0-98.0 [place] 658532-02-05 11:10:00 Test Item Value Reference Range Interpretation Comments MCH (test code = MCH) 26.4 pg 27.0-31.0 [place] 658532-02-05 11:10:00 Test Item Value Reference Range Interpretation Comments MCHC (test code = MCHC) 31.4 32.0-36.0 [place] 658532-02-05 11:10:00 Test Item Value Reference Range Interpretation Comments RDW (test code = RDW) 17.9 11.5-14.5 [place] 658532-02-05 11:10:00 Test Item Value Reference Range Interpretation Comments Platelet (test code = Platelet) 328 133-450 [facility]AhqxkttFUEMTGNTND0917-74-81 11:10:00 Test Item Value Reference Range Interpretation Comments MPV (test code = MPV) 7.2 7.4-10.4 [facility]2022-02-05 11:10:00 Test Item Value Reference Range Interpretation Comments Glucose Lvl (test code = Glucose Lvl) 109 70-99 [facility]2022-02-05 11:10:00 Test Item Value Reference Range Interpretation Comments BUN (test code = BUN) 14 7-22 [place] 154502-02-05 11:10:00 Test Item Value Reference Range Interpretation Comments Creatinine Lvl (test code = Creatinine 0.92 0.50-1.40 Lvl) [facility]2022-02-05 11:10:00 Test Item Value Reference Range Interpretation Comments Sodium Lvl (test code = Sodium Lvl) 139 135-145 [place] 154502-02-05 11:10:00 Test Item Value Reference Range Interpretation Comments Potassium Lvl (test code = Potassium 3.7 3.5-5.1 Lvl) [place] 154502-02-05 11:10:00 Test Item Value Reference Range Interpretation Comments Chloride Lvl (test code = Chloride Lvl) 103 95-109 [place] 154502-02-05 11:10:00 Test Item Value Reference Range Interpretation Comments CO2 (test code = CO2) 31 24-32 [place] 154502-02-05 11:10:00 Test Item Value Reference Range Interpretation Comments Calcium Lvl (test code = Calcium Lvl) 8.2 8.5-10.5 [place] 154502-02-05 11:10:00 Test Item Value Reference Range Interpretation Comments AGAP (test code = AGAP) 8.7 10.0-20.0 [place] 154502-02-05 11:10:00 Test Item Value Reference Range Interpretation Comments eGFR (test code = eGFR) 60 [place] 658532-02-05 11:10:00 Test Item Value Reference Range Interpretation Comments WBC (test code = WBC) 7.2 3.7-10.4 [place] 658532-02-05 11:10:00 Test Item Value Reference Range Interpretation Comments RBC (test code = RBC) 3.30 4.20-5.40 [place] 658532-02-05 11:10:00 Test Item Value Reference Range Interpretation Comments Hgb (test code = Hgb) 8.7 12.0-16.0 [place] 658532-02-05 11:10:00 Test Item Value Reference Range Interpretation Comments Hct (test code = Hct) 27.7 36.0-48.0 [place] [address]-02-05 11:10:00 Test Item Value Reference Range Interpretation Comments MCV (test code = MCV) 84.0 80.0-98.0 [place] [address]-02-05 11:10:00 Test Item Value Reference Range Interpretation Comments MCH (test code = MCH) 26.4 pg 27.0-31.0 [place] 658532-02-05 11:10:00 Test Item Value Reference Range Interpretation Comments MCHC (test code = MCHC) 31.4 32.0-36.0 [place] 658532-02-05 11:10:00 Test Item Value Reference Range Interpretation Comments RDW (test code = RDW) 17.9 11.5-14.5 [place] 658532-02-05 11:10:00 Test Item Value Reference Range Interpretation Comments Platelet (test code = Platelet) 328 133-450 [place] 658532-02-05 11:10:00 Test Item Value Reference Range Interpretation Comments MPV (test code = MPV) 7.2 7.4-10.4 [place] 154502-02-05 11:10:00 Test Item Value Reference Range Interpretation Comments Glucose Lvl (test code = Glucose Lvl) 109 70-99 [place] 154502-02-05 11:10:00 Test Item Value Reference Range Interpretation Comments BUN (test code = BUN) 14 7-22 [place] 154502-02-05 11:10:00 Test Item Value Reference Range Interpretation Comments Creatinine Lvl (test code = Creatinine 0.92 0.50-1.40 Lvl) [place] 154502-02-05 11:10:00 Test Item Value Reference Range Interpretation Comments Sodium Lvl (test code = Sodium Lvl) 139 135-145 [place] 154502-02-05 11:10:00 Test Item Value Reference Range Interpretation Comments Potassium Lvl (test code = Potassium 3.7 3.5-5.1 Lvl) [facility]2022-02-05 11:10:00 Test Item Value Reference Range Interpretation Comments Chloride Lvl (test code = Chloride Lvl) 103 95-109 [place] 154502-02-05 11:10:00 Test Item Value Reference Range Interpretation Comments CO2 (test code = CO2) 31 24-32 [place] 154502-02-05 11:10:00 Test Item Value Reference Range Interpretation Comments Calcium Lvl (test code = Calcium Lvl) 8.2 8.5-10.5 [place] 154502-02-05 11:10:00 Test Item Value Reference Range Interpretation Comments AGAP (test code = AGAP) 8.7 10.0-20.0 [place] 154502-02-05 11:10:00 Test Item Value Reference Range Interpretation Comments eGFR (test code = eGFR) 60 [place] 658532-02-05 11:10:00 Test Item Value Reference Range Interpretation Comments WBC (test code = WBC) 7.2 3.7-10.4 [place] 658532-02-05 11:10:00 Test Item Value Reference Range Interpretation Comments RBC (test code = RBC) 3.30 4.20-5.40 [place] 658532-02-05 11:10:00 Test Item Value Reference Range Interpretation Comments Hgb (test code = Hgb) 8.7 12.0-16.0 [facility] HospitalBupppsaHQNNGMCAIM7242-83-75 11:10:00 Test Item Value Reference Range Interpretation Comments Hct (test code = Hct) 27.7 36.0-48.0 [facility] HospitalYqqszkbTGXFDKGQHS5795-63-82 11:10:00 Test Item Value Reference Range Interpretation Comments MCV (test code = MCV) 84.0 80.0-98.0 [place] 658532-02-05 11:10:00 Test Item Value Reference Range Interpretation Comments MCH (test code = MCH) 26.4 pg 27.0-31.0 [facility] HospitalFykbsxuHZJZHOMONI5421-98-19 11:10:00 Test Item Value Reference Range Interpretation Comments MCHC (test code = MCHC) 31.4 32.0-36.0 [facility] HospitalUxoqjrmKHWWLIMARW6465-00-27 11:10:00 Test Item Value Reference Range Interpretation Comments RDW (test code = RDW) 17.9 11.5-14.5 [facility] HospitalFdokpudRNXZLDUAEK4348-82-07 11:10:00 Test Item Value Reference Range Interpretation Comments Platelet (test code = Platelet) 328 133-450 [facility] HospitalLrftsoiTHQRJZFXGS2249-41-04 11:10:00 Test Item Value Reference Range Interpretation Comments MPV (test code = MPV) 7.2 7.4-10.4 [facility]2022-02-05 11:10:00 Test Item Value Reference Range Interpretation Comments Glucose Lvl (test code = Glucose Lvl) 109 70-99 [facility]2022-02-04 11:51:00 Test Item Value Reference Range Interpretation Comments Glucose Lvl (test code = Glucose Lvl) 98 70-99 [facility]2022-02-04 11:51:00 Test Item Value Reference Range Interpretation Comments BUN (test code = BUN) 12 -22 [place] 154502-02-04 11:51:00 Test Item Value Reference Range Interpretation Comments Creatinine Lvl (test code = Creatinine 0.88 0.50-1.40 Lvl) [place] 154502-02-04 11:51:00 Test Item Value Reference Range Interpretation Comments Sodium Lvl (test code = Sodium Lvl) 140 135-145 [place] 154502-02-04 11:51:00 Test Item Value Reference Range Interpretation Comments Potassium Lvl (test code = Potassium 3.9 3.5-5.1 Lvl) [place] 154502-02-04 11:51:00 Test Item Value Reference Range Interpretation Comments Chloride Lvl (test code = Chloride Lvl) 103 95-109 [place] 154502-02-04 11:51:00 Test Item Value Reference Range Interpretation Comments CO2 (test code = CO2) 32 24-32 [place] 154502-02-04 11:51:00 Test Item Value Reference Range Interpretation Comments Calcium Lvl (test code = Calcium Lvl) 8.5 8.5-10.5 [place] 154502-02-04 11:51:00 Test Item Value Reference Range Interpretation Comments AGAP (test code = AGAP) 8.9 10.0-20.0 [place] 154502-02-04 11:51:00 Test Item Value Reference Range Interpretation Comments eGFR (test code = eGFR) 64 [place] 658532-02-04 11:51:00 Test Item Value Reference Range Interpretation Comments WBC (test code = WBC) 7.1 3.7-10.4 [place] 658532-02-04 11:51:00 Test Item Value Reference Range Interpretation Comments RBC (test code = RBC) 3.54 4.20-5.40 [place] [address]-02-04 11:51:00 Test Item Value Reference Range Interpretation Comments Hgb (test code = Hgb) 9.3 12.0-16.0 [place] [address]-02-04 11:51:00 Test Item Value Reference Range Interpretation Comments Hct (test code = Hct) 29.5 36.0-48.0 [place] [address]-02-04 11:51:00 Test Item Value Reference Range Interpretation Comments MCV (test code = MCV) 83.5 80.0-98.0 [place] 658532-02-04 11:51:00 Test Item Value Reference Range Interpretation Comments MCH (test code = MCH) 26.3 pg 27.0-31.0 [place] 658532-02-04 11:51:00 Test Item Value Reference Range Interpretation Comments MCHC (test code = MCHC) 31.5 32.0-36.0 [place] 658532-02-04 11:51:00 Test Item Value Reference Range Interpretation Comments RDW (test code = RDW) 17.4 11.5-14.5 [place] 658532-02-04 11:51:00 Test Item Value Reference Range Interpretation Comments Platelet (test code = Platelet) 355 133-450 [place] 658532-02-04 11:51:00 Test Item Value Reference Range Interpretation Comments MPV (test code = MPV) 7.4 7.4-10.4 [facility]2022-02-04 11:51:00 Test Item Value Reference Range Interpretation Comments Glucose Lvl (test code = Glucose Lvl) 98 70-99 [facility]2022-02-04 11:51:00 Test Item Value Reference Range Interpretation Comments BUN (test code = BUN) 12 7-22 [facility]2022-02-04 11:51:00 Test Item Value Reference Range Interpretation Comments Creatinine Lvl (test code = Creatinine 0.88 0.50-1.40 Lvl) [place] 154502-02-04 11:51:00 Test Item Value Reference Range Interpretation Comments Sodium Lvl (test code = Sodium Lvl) 140 135-145 [place] 154502-02-04 11:51:00 Test Item Value Reference Range Interpretation Comments Potassium Lvl (test code = Potassium 3.9 3.5-5.1 Lvl) [place] 154502-02-04 11:51:00 Test Item Value Reference Range Interpretation Comments Chloride Lvl (test code = Chloride Lvl) 103 95-109 [place] 154502-02-04 11:51:00 Test Item Value Reference Range Interpretation Comments CO2 (test code = CO2) 32 24-32 [place] 154502-02-04 11:51:00 Test Item Value Reference Range Interpretation Comments Calcium Lvl (test code = Calcium Lvl) 8.5 8.5-10.5 [facility]2022-02-04 11:51:00 Test Item Value Reference Range Interpretation Comments AGAP (test code = AGAP) 8.9 10.0-20.0 [facility]2022-02-04 11:51:00 Test Item Value Reference Range Interpretation Comments eGFR (test code = eGFR) 64 [facility] HospitalDxmzpnyDCRDJXFGXW3089-31-36 11:51:00 Test Item Value Reference Range Interpretation Comments WBC (test code = WBC) 7.1 3.7-10.4 [place] 658532-02-04 11:51:00 Test Item Value Reference Range Interpretation Comments RBC (test code = RBC) 3.54 4.20-5.40 [facility] HospitalJydqvvgRDUUDCQONU9898-43-53 11:51:00 Test Item Value Reference Range Interpretation Comments Hgb (test code = Hgb) 9.3 12.0-16.0 [place] 658532-02-04 11:51:00 Test Item Value Reference Range Interpretation Comments Hct (test code = Hct) 29.5 36.0-48.0 [place] 658532-02-04 11:51:00 Test Item Value Reference Range Interpretation Comments MCV (test code = MCV) 83.5 80.0-98.0 [facility] HospitalSazmugzMOVUMRXNCE5457-61-34 11:51:00 Test Item Value Reference Range Interpretation Comments MCH (test code = MCH) 26.3 pg 27.0-31.0 [place] 658532-02-04 11:51:00 Test Item Value Reference Range Interpretation Comments MCHC (test code = MCHC) 31.5 32.0-36.0 [place] 658532-02-04 11:51:00 Test Item Value Reference Range Interpretation Comments RDW (test code = RDW) 17.4 11.5-14.5 [place] 658532-02-04 11:51:00 Test Item Value Reference Range Interpretation Comments Platelet (test code = Platelet) 355 133-450 [facility] HospitalLmilmbnCUYMCOTQIJ0724-75-24 11:51:00 Test Item Value Reference Range Interpretation Comments MPV (test code = MPV) 7.4 7.4-10.4 [place] 154502-02-04 11:51:00 Test Item Value Reference Range Interpretation Comments Glucose Lvl (test code = Glucose Lvl) 98 70-99 [place] 154502-02-04 11:51:00 Test Item Value Reference Range Interpretation Comments BUN (test code = BUN) 12 7-22 [place] 154502-02-04 11:51:00 Test Item Value Reference Range Interpretation Comments Creatinine Lvl (test code = Creatinine 0.88 0.50-1.40 Lvl) [place] 154502-02-04 11:51:00 Test Item Value Reference Range Interpretation Comments Sodium Lvl (test code = Sodium Lvl) 140 135-145 [place] 154502-02-04 11:51:00 Test Item Value Reference Range Interpretation Comments Potassium Lvl (test code = Potassium 3.9 3.5-5.1 Lvl) [place] 154502-02-04 11:51:00 Test Item Value Reference Range Interpretation Comments Chloride Lvl (test code = Chloride Lvl) 103 95-109 [place] 154502-02-04 11:51:00 Test Item Value Reference Range Interpretation Comments CO2 (test code = CO2) 32 24-32 [place] 154502-02-04 11:51:00 Test Item Value Reference Range Interpretation Comments Calcium Lvl (test code = Calcium Lvl) 8.5 8.5-10.5 [place] 154502-02-04 11:51:00 Test Item Value Reference Range Interpretation Comments AGAP (test code = AGAP) 8.9 10.0-20.0 [place] 154502-02-04 11:51:00 Test Item Value Reference Range Interpretation Comments eGFR (test code = eGFR) 64 [place] 658532-02-04 11:51:00 Test Item Value Reference Range Interpretation Comments WBC (test code = WBC) 7.1 3.7-10.4 [place] 658532-02-04 11:51:00 Test Item Value Reference Range Interpretation Comments RBC (test code = RBC) 3.54 4.20-5.40 [place] 658532-02-04 11:51:00 Test Item Value Reference Range Interpretation Comments Hgb (test code = Hgb) 9.3 12.0-16.0 [facility] HospitalQnojkcaJKYPCRGIBA6973-63-56 11:51:00 Test Item Value Reference Range Interpretation Comments Hct (test code = Hct) 29.5 36.0-48.0 [facility] HospitalVppptlqQWUUKAVLXI0873-11-36 11:51:00 Test Item Value Reference Range Interpretation Comments MCV (test code = MCV) 83.5 80.0-98.0 [facility] HospitalVwmwwsuTHBQWBSCUJ4962-89-11 11:51:00 Test Item Value Reference Range Interpretation Comments MCH (test code = MCH) 26.3 pg 27.0-31.0 [facility] HospitalSfjlnipJGYFRFRGIF5300-06-01 11:51:00 Test Item Value Reference Range Interpretation Comments MCHC (test code = MCHC) 31.5 32.0-36.0 [facility] HospitalEdireobNFNTFBBBQS5380-20-40 11:51:00 Test Item Value Reference Range Interpretation Comments RDW (test code = RDW) 17.4 11.5-14.5 [facility] HospitalHumxxxuMCNQQKDRYH0787-48-13 11:51:00 Test Item Value Reference Range Interpretation Comments Platelet (test code = Platelet) 355 133-450 [facility] HospitalNllktniWQWEIJLOJO8574-00-36 11:51:00 Test Item Value Reference Range Interpretation Comments MPV (test code = MPV) 7.4 7.4-10.4 [facility] 03:17:00 Test Item Value Reference Range Interpretation Comments Coronavirus (COVID-19) Not Detected (10/17/21 MADELINE (test code = 9:17 PM) Coronavirus (COVID-19) MADELINE) [facility]qxjyeXTPPUZKZZV8846-91-96 03:17:00 Test Item Value Reference Range Interpretation Comments Coronavirus (COVID-19) Not Detected (10/17/21 MADELINE (test code = 9:17 PM) Coronavirus (COVID-19) MADELINE) [facility]LiurdvqRRCIJAQLMK4696-03-04 03:17:00 Test Item Value Reference Range Interpretation Comments Coronavirus (COVID-19) Not Detected (10/17/21 MADELINE (test code = 9:17 PM) Coronavirus (COVID-19) MADELINE) [facility] HospitalCdgarzoYUBPHEGAKW8768-00-97 12:50:00 Test Item Value Reference Range Interpretation Comments Segs (test code = Segs) 70.7 45.0-75.0 [place] 658532-02-02 12:50:00 Test Item Value Reference Range Interpretation Comments Lymphocytes (test code = Lymphocytes) 14.4 20.0-40.0 [place] 658532-02-02 12:50:00 Test Item Value Reference Range Interpretation Comments Monocytes (test code = Monocytes) 14.0 2.0-12.0 [place] 658532-02-02 12:50:00 Test Item Value Reference Range Interpretation Comments Basophils (test code = 0.9 See_Comment [Aut omated message] The Basophils) system which ge nerated this result tra nsmitted reference range : <=1.0. The reference r shin was not used to int erpret this result as normal/abnormal . [place] 658532-02-02 12:50:00 Test Item Value Reference Range Interpretation Comments Neutrophils # (test code = Neutrophils 4.3 1.5-8.1 #) [place] 658532-02-02 12:50:00 Test Item Value Reference Range Interpretation Comments Lymphocytes # (test code = Lymphocytes 0.9 1.0-5.5 #) [place] 658532-02-02 12:50:00 Test Item Value Reference Range Interpretation Comments Monocytes # (test code 0.9 See_Comment [Aut omated message] The = Monocytes #) system which generated this result tra nsmitted reference range : <=0.8. The reference r shin was not used to int erpret this result as normal/abnormal . [place] 658532-02-02 12:50:00 Test Item Value Reference Range Interpretation Comments Basophils # (test code 0.1 See_Comment [Aut omated message] The = Basophils #) system which generated this result tra nsmitted reference range : <=0.2. The reference r hsin was not used to int erpret this result as normal/abnormal . [place] 658532-02-02 12:50:00 Test Item Value Reference Range Interpretation Comments Segs (test code = Segs) 70.7 45.0-75.0 [place] [address]-02-02 12:50:00 Test Item Value Reference Range Interpretation Comments Lymphocytes (test code = Lymphocytes) 14.4 20.0-40.0 [place] [address]-02-02 12:50:00 Test Item Value Reference Range Interpretation Comments Monocytes (test code = Monocytes) 14.0 2.0-12.0 [place] 658532-02-02 12:50:00 Test Item Value Reference Range Interpretation Comments Basophils (test code = 0.9 See_Comment [Aut omated message] The Basophils) system which ge nerated this result tra nsmitted reference range : <=1.0. The reference r shin was not used to int erpret this result as normal/abnormal . [place] 658532-02-02 12:50:00 Test Item Value Reference Range Interpretation Comments Neutrophils # (test code = Neutrophils 4.3 1.5-8.1 #) [place] 658532-02-02 12:50:00 Test Item Value Reference Range Interpretation Comments Lymphocytes # (test code = Lymphocytes 0.9 1.0-5.5 #) [place] 658532-02-02 12:50:00 Test Item Value Reference Range Interpretation Comments Monocytes # (test code 0.9 See_Comment [Aut omated message] The = Monocytes #) system which generated this result tra nsmitted reference range : <=0.8. The reference r shin was not used to int erpret this result as normal/abnormal . [place] 658532-02-02 12:50:00 Test Item Value Reference Range Interpretation Comments Basophils # (test code 0.1 See_Comment [Aut omated message] The = Basophils #) system which generated this result tra nsmitted reference range : <=0.2. The reference r shin was not used to int erpret this result as normal/abnormal . [facility] HospitalZkrpumsOJQJVTOUFN1544-60-05 12:50:00 Test Item Value Reference Range Interpretation Comments Segs (test code = Segs) 70.7 45.0-75.0 [place] 658532-02-02 12:50:00 Test Item Value Reference Range Interpretation Comments Lymphocytes (test code = Lymphocytes) 14.4 20.0-40.0 [place] 658532-02-02 12:50:00 Test Item Value Reference Range Interpretation Comments Monocytes (test code = Monocytes) 14.0 2.0-12.0 [place] 658532-02-02 12:50:00 Test Item Value Reference Range Interpretation Comments Basophils (test code = 0.9 See_Comment [Aut omated message] The Basophils) system which ge nerated this result tra nsmitted reference range : <=1.0. The reference r shin was not used to int erpret this result as normal/abnormal . [facility] HospitalBgpqfqzNTEUQWOVFK9974-62-70 12:50:00 Test Item Value Reference Range Interpretation Comments Neutrophils # (test code = Neutrophils 4.3 1.5-8.1 #) [place] 658532-02-02 12:50:00 Test Item Value Reference Range Interpretation Comments Lymphocytes # (test code = Lymphocytes 0.9 1.0-5.5 #) [place] 658532-02-02 12:50:00 Test Item Value Reference Range Interpretation Comments Monocytes # (test code 0.9 See_Comment [Aut omated message] The = Monocytes #) system which generated this result tra nsmitted reference range : <=0.8. The reference r shin was not used to int erpret this result as normal/abnormal . [facility] Hos[id number] 12:50:00 Test Item Value Reference Range Interpretation Comments Basophils # (test code 0.1 See_Comment [Aut omated message] The = Basophils #) system which generated this result tra nsmitted reference range : <=0.2. The reference r shin was not used to int erpret this result as normal/abnormal . [facility]lusyREDTYTWVYO1819-50-89 12:13:00 Test Item Value Reference Range Interpretation Comments Plt Morph (test code = Normal (10/15/21 6:13 AM) Plt Morph) [place]8532-02-01 12:13:00 Test Item Value Reference Range Interpretation Comments Segs (test code = Segs) 79.0 45.0-75.0 [place] 658532-02-01 12:13:00 Test Item Value Reference Range Interpretation Comments Bands (test code = 3.0 See_Comment [Automat ed message] The Bands) system which ge nerated this result transmit shubham reference range : <=11.0. The reference r shin was not used to interpr et this result as elsie l/abnormal. [facility]LgcfdpnRUZSAMELRD8425-07-02 12:13:00 Test Item Value Reference Range Interpretation Comments Lymphocytes (test code = Lymphocytes) 8.0 20.0-40.0 [place] 658532-02-01 12:13:00 Test Item Value Reference Range Interpretation Comments Monocytes (test code = Monocytes) 10.0 2.0-12.0 [place] [address]-02-01 12:13:00 Test Item Value Reference Range Interpretation Comments Neutrophils # (test code = Neutrophils 5.8 1.5-8.1 #) [place] 658532-02-01 12:13:00 Test Item Value Reference Range Interpretation Comments Lymphocytes # (test code = Lymphocytes 0.6 1.0-5.5 #) [place] [address]-02-01 12:13:00 Test Item Value Reference Range Interpretation Comments Monocytes # (test code 0.7 See_Comment [Aut omated message] The = Monocytes #) system which generated this result tra nsmitted reference range : <=0.8. The reference r shin was not used to int erpret this result as normal/abnormal . [place] 658532-02-01 12:13:00 Test Item Value Reference Range Interpretation Comments Microcyte (test code = 1+ *ABN*(10/15/21 6:13 Microcyte) AM) [place] [address]-02-01 12:13:00 Test Item Value Reference Range Interpretation Comments Hypochrom (test code = 1+ (10/15/21 6:13 AM) Hypochrom) [place] [address]-02-01 12:13:00 Test Item Value Reference Range Interpretation Comments Plt Morph (test code = Normal (10/15/21 6:13 AM) Plt Morph) [place] [address]-02-01 12:13:00 Test Item Value Reference Range Interpretation Comments Segs (test code = Segs) 79.0 45.0-75.0 [place] [address]-02-01 12:13:00 Test Item Value Reference Range Interpretation Comments Bands (test code = 3.0 See_Comment [Automat ed message] The Bands) system which ge nerated this result transmit shubham reference range : <=11.0. The reference r shin was not used to interpr et this result as elsie l/abnormal. [place] [address]-02-01 12:13:00 Test Item Value Reference Range Interpretation Comments Lymphocytes (test code = Lymphocytes) 8.0 20.0-40.0 [place] [address]-02-01 12:13:00 Test Item Value Reference Range Interpretation Comments Monocytes (test code = Monocytes) 10.0 2.0-12.0 [place] [address]-02-01 12:13:00 Test Item Value Reference Range Interpretation Comments Neutrophils # (test code = Neutrophils 5.8 1.5-8.1 #) [place] 658532-02-01 12:13:00 Test Item Value Reference Range Interpretation Comments Lymphocytes # (test code = Lymphocytes 0.6 1.0-5.5 #) [place] [address]-02-01 12:13:00 Test Item Value Reference Range Interpretation Comments Monocytes # (test code 0.7 See_Comment [Aut omated message] The = Monocytes #) system which generated this result tra nsmitted reference range : <=0.8. The reference r shin was not used to int erpret this result as normal/abnormal . [place] 658532-02-01 12:13:00 Test Item Value Reference Range Interpretation Comments Microcyte (test code = 1+ *ABN*(10/15/21 6:13 Microcyte) AM) [place] [address]-02-01 12:13:00 Test Item Value Reference Range Interpretation Comments Hypochrom (test code = 1+ (10/15/21 6:13 AM) Hypochrom) [place] [address]-02-01 12:13:00 Test Item Value Reference Range Interpretation Comments Plt Morph (test code = Normal (10/15/21 6:13 AM) Plt Morph) [place] [address]-02-01 12:13:00 Test Item Value Reference Range Interpretation Comments Segs (test code = Segs) 79.0 45.0-75.0 [place] [address]-02-01 12:13:00 Test Item Value Reference Range Interpretation Comments Bands (test code = 3.0 See_Comment [Automat ed message] The Bands) system which ge nerated this result transmit shubham reference range : <=11.0. The reference r shin was not used to interpr et this result as elsie l/abnormal. [facility] Hos[id number] 12:13:00 Test Item Value Reference Range Interpretation Comments Lymphocytes (test code = Lymphocytes) 8.0 20.0-40.0 [facility] HospitalVheyitkAMRFTIRYDX3268-13-12 12:13:00 Test Item Value Reference Range Interpretation Comments Monocytes (test code = Monocytes) 10.0 2.0-12.0 [facility] HospitalBlrlfxfTZAQIYBLGS4567-26-83 12:13:00 Test Item Value Reference Range Interpretation Comments Neutrophils # (test code = Neutrophils 5.8 1.5-8.1 #) [facility] HospitalGavgrgoKKNKBUCPWZ3313-00-10 12:13:00 Test Item Value Reference Range Interpretation Comments Lymphocytes # (test code = Lymphocytes 0.6 1.0-5.5 #) [facility] HospitalWmtfprmZGCQADXKXB0068-25-43 12:13:00 Test Item Value Reference Range Interpretation Comments Monocytes # (test code 0.7 See_Comment [Aut omated message] The = Monocytes #) system which generated this result tra nsmitted reference range : <=0.8. The reference r shin was not used to int erpret this result as normal/abnormal . [facility] HospitalJckalnyVMXTZUXSKQ4382-47-51 12:13:00 Test Item Value Reference Range Interpretation Comments Microcyte (test code = 1+ *ABN*(10/15/21 6:13 Microcyte) AM) [facility] HospitalXghjkmeCIUCFPSZCC9561-89-33 12:13:00 Test Item Value Reference Range Interpretation Comments Hypochrom (test code = 1+ (10/15/21 6:13 AM) Hypochrom) [facility] [id number] 15:02:00 Test Item Value Reference Range Interpretation Comments RBC product (test code Product available = RBC product) (10/14/21 9:02 AM) [facility] [id number] 15:02:00 Test Item Value Reference Range Interpretation Comments RBC product (test code Product available = RBC product) (10/14/21 9:02 AM) [facility] [id number] 15:02:00 Test Item Value Reference Range Interpretation Comments RBC product (test code Product available = RBC product) (10/14/21 9:02 AM) [facility] [id number] 12:40:00 Test Item Value Reference Range Interpretation Comments ABO/Rh (test code = ABO/Rh) O POS [facility] [id number] 12:40:00 Test Item Value Reference Range Interpretation Comments Antibody Scrn (test Negative (10/14/21 6:40 code = Antibody Scrn) AM) [facility] [id number] 12:40:00 Test Item Value Reference Range Interpretation Comments ABO/Rh (test code = ABO/Rh) O POS [facility] [id number] 12:40:00 Test Item Value Reference Range Interpretation Comments Antibody Scrn (test Negative (10/14/21 6:40 code = Antibody Scrn) AM) [facility] [id number] 12:40:00 Test Item Value Reference Range Interpretation Comments ABO/Rh (test code = ABO/Rh) O POS [facility] [id number] 12:40:00 Test Item Value Reference Range Interpretation Comments Antibody Scrn (test Negative (10/14/21 6:40 code = Antibody Scrn) AM) [facility] [id number] 11:57:00 Test Item Value Reference Range Interpretation Comments RBC product (test code Product available = RBC product) 4(10/14/21 5:57 AM) [facility] [id number] 11:57:00 Test Item Value Reference Range Interpretation Comments RBC product (test code Product available = RBC product) 4(10/14/21 5:57 AM) [facility] [id number] 11:57:00 Test Item Value Reference Range Interpretation Comments RBC product (test code Product available = RBC product) 4(10/14/21 5:57 AM) [facility] [id number] 10:48:00 Test Item Value Reference Range Interpretation Comments Ferritin Lvl (test code = Ferritin Lvl) 29 [facility] [id number] 10:48:00 Test Item Value Reference Range Interpretation Comments Iron (test code = Iron) 10 [facility] [id number] 10:48:00 Test Item Value Reference Range Interpretation Comments TIBC (test code = TIBC) 253 [facility] [id number] 10:48:00 Test Item Value Reference Range Interpretation Comments % Satur Fe (test code = % Satur Fe) 4 [facility]2022-01-31 10:48:00 Test Item Value Reference Range Interpretation Comments Folate Lvl (test code = Folate Lvl) 2.9 [facility]2022-01-31 10:48:00 Test Item Value Reference Range Interpretation Comments Vitamin B12 Lvl (test code = Vitamin 181 B12 Lvl) [place] 658532-01-31 10:48:00 Test Item Value Reference Range Interpretation Comments Segs (test code = Segs) 75.9 45.0-75.0 [place] 658532-01-31 10:48:00 Test Item Value Reference Range Interpretation Comments Lymphocytes (test code = Lymphocytes) 12.6 20.0-40.0 [place] 658532-01-31 10:48:00 Test Item Value Reference Range Interpretation Comments Monocytes (test code = Monocytes) 11.0 2.0-12.0 [place] 658532-01-31 10:48:00 Test Item Value Reference Range Interpretation Comments Basophils (test code = 0.5 See_Comment [Aut omated message] The Basophils) system which ge nerated this result tra nsmitted reference range : <=1.0. The reference r shin was not used to int erpret this result as normal/abnormal . [place] 658532-01-31 10:48:00 Test Item Value Reference Range Interpretation Comments Neutrophils # (test code = Neutrophils 7.1 1.5-8.1 #) [place] 658532-01-31 10:48:00 Test Item Value Reference Range Interpretation Comments Lymphocytes # (test code = Lymphocytes 1.2 1.0-5.5 #) [place] [address]-01-31 10:48:00 Test Item Value Reference Range Interpretation Comments Monocytes # (test code 1.0 See_Comment [Aut omated message] The = Monocytes #) system which generated this result tra nsmitted reference range : <=0.8. The reference r shin was not used to int erpret this result as normal/abnormal . [place] 658532-01-31 10:48:00 Test Item Value Reference Range Interpretation Comments Basophils # (test code 0.1 See_Comment [Aut omated message] The = Basophils #) system which generated this result tra nsmitted reference range : <=0.2. The reference r shin was not used to int erpret this result as normal/abnormal . [facility] HospitalRtcbbhxPJOBOERWOL7922-98-64 10:48:00 Test Item Value Reference Range Interpretation Comments Retic Perf (test code = Yes (10/14/21 4:48 AM) Retic Perf) [facility] HospitalOkcftqkDKWEJSNDXU1923-31-61 10:48:00 Test Item Value Reference Range Interpretation Comments Retic Auto (test code = Retic Auto) 1.8 0.5-1.5 [facility]2022-01-31 10:48:00 Test Item Value Reference Range Interpretation Comments Ferritin Lvl (test code = Ferritin Lvl) 29 -204 [facility]2022-01-31 10:48:00 Test Item Value Reference Range Interpretation Comments Iron (test code = Iron) 10 [facility]2022-01-31 10:48:00 Test Item Value Reference Range Interpretation Comments TIBC (test code = TIBC) 253 [facility]2022-01-31 10:48:00 Test Item Value Reference Range Interpretation Comments % Satur Fe (test code = % Satur Fe) 4 [facility]2022-01-31 10:48:00 Test Item Value Reference Range Interpretation Comments Folate Lvl (test code = Folate Lvl) 2.9 [facility]2022-01-31 10:48:00 Test Item Value Reference Range Interpretation Comments Vitamin B12 Lvl (test code = Vitamin 181 B12 Lvl) [facility] HospitalGfhzfbkCJISLEZEPO7701-37-74 10:48:00 Test Item Value Reference Range Interpretation Comments Segs (test code = Segs) 75.9 45.0-75.0 [facility] HospitalBymicedEDYMVFWVEL6658-67-65 10:48:00 Test Item Value Reference Range Interpretation Comments Lymphocytes (test code = Lymphocytes) 12.6 20.0-40.0 [facility] HospitalNljjdhhWXIDZBOIPL7802-05-45 10:48:00 Test Item Value Reference Range Interpretation Comments Monocytes (test code = Monocytes) 11.0 2.0-12.0 [facility] HospitalPglufbdVRMCGEOYXV9872-27-46 10:48:00 Test Item Value Reference Range Interpretation Comments Basophils (test code = 0.5 See_Comment [Aut omated message] The Basophils) system which ge nerated this result tra nsmitted reference range : <=1.0. The reference r shin was not used to int erpret this result as normal/abnormal . [facility] HospitalMwqjnjwZKIOFHARFR2334-98-68 10:48:00 Test Item Value Reference Range Interpretation Comments Neutrophils # (test code = Neutrophils 7.1 1.5-8.1 #) [facility] HospitalQtfdptkATGYSISUWK0463-91-87 10:48:00 Test Item Value Reference Range Interpretation Comments Lymphocytes # (test code = Lymphocytes 1.2 1.0-5.5 #) [facility] HospitalLuhmtwqCXWVIQJBIP8457-29-95 10:48:00 Test Item Value Reference Range Interpretation Comments Monocytes # (test code 1.0 See_Comment [Aut omated message] The = Monocytes #) system which generated this result tra nsmitted reference range : <=0.8. The reference r shin was not used to int erpret this result as normal/abnormal . [facility] HospitalOessqwjVKDZVMWTJD0152-37-04 10:48:00 Test Item Value Reference Range Interpretation Comments Basophils # (test code 0.1 See_Comment [Aut omated message] The = Basophils #) system which generated this result tra nsmitted reference range : <=0.2. The reference r shin was not used to int erpret this result as normal/abnormal . [facility] HospitalEozjasaRWTANNCPXN3811-34-44 10:48:00 Test Item Value Reference Range Interpretation Comments Retic Perf (test code = Yes (10/14/21 4:48 AM) Retic Perf) [facility] HospitalFggapdfCPQHYKKFAO3633-65-74 10:48:00 Test Item Value Reference Range Interpretation Comments Retic Auto (test code = Retic Auto) 1.8 0.5-1.5 [facility]2022-01-31 10:48:00 Test Item Value Reference Range Interpretation Comments Ferritin Lvl (test code = Ferritin Lvl) 29 5-204 [facility]2022-01-31 10:48:00 Test Item Value Reference Range Interpretation Comments Iron (test code = Iron) 10 [facility]2022-01-31 10:48:00 Test Item Value Reference Range Interpretation Comments TIBC (test code = TIBC) 253 [facility]2022-01-31 10:48:00 Test Item Value Reference Range Interpretation Comments % Satur Fe (test code = % Satur Fe) 4 [facility]2022-01-31 10:48:00 Test Item Value Reference Range Interpretation Comments Folate Lvl (test code = Folate Lvl) 2.9 [facility]2022-01-31 10:48:00 Test Item Value Reference Range Interpretation Comments Vitamin B12 Lvl (test code = Vitamin 181 B12 Lvl) [facility] HospitalFmrspwpJLRNWBGPRW9502-90-97 10:48:00 Test Item Value Reference Range Interpretation Comments Segs (test code = Segs) 75.9 45.0-75.0 [place] 658532-01-31 10:48:00 Test Item Value Reference Range Interpretation Comments Lymphocytes (test code = Lymphocytes) 12.6 20.0-40.0 [place] 658532-01-31 10:48:00 Test Item Value Reference Range Interpretation Comments Monocytes (test code = Monocytes) 11.0 2.0-12.0 [place] 658532-01-31 10:48:00 Test Item Value Reference Range Interpretation Comments Basophils (test code = 0.5 See_Comment [Aut omated message] The Basophils) system which ge nerated this result tra nsmitted reference range : <=1.0. The reference r shin was not used to int erpret this result as normal/abnormal . [facility] HospitalLdeudfbPMZNXBWDYA3764-58-78 10:48:00 Test Item Value Reference Range Interpretation Comments Neutrophils # (test code = Neutrophils 7.1 1.5-8.1 #) [facility] HospitalHuevvhqNBPCPGLKDP9760-38-74 10:48:00 Test Item Value Reference Range Interpretation Comments Lymphocytes # (test code = Lymphocytes 1.2 1.0-5.5 #) [place]8532-01-31 10:48:00 Test Item Value Reference Range Interpretation Comments Monocytes # (test code 1.0 See_Comment [Aut omated message] The = Monocytes #) system which generated this result tra nsmitted reference range : <=0.8. The reference r shin was not used to int erpret this result as normal/abnormal . [place]8532-01-31 10:48:00 Test Item Value Reference Range Interpretation Comments Basophils # (test code 0.1 See_Comment [Aut omated message] The = Basophils #) system which generated this result tra nsmitted reference range : <=0.2. The reference r shin was not used to int erpret this result as normal/abnormal . [facility] HospitalCyahszcYVMOZIAPDK7483-41-10 10:48:00 Test Item Value Reference Range Interpretation Comments Retic Perf (test code = Yes (10/14/21 4:48 AM) Retic Perf) [facility] HospitalUrhwfjxFMJFNJBICM8640-90-20 10:48:00 Test Item Value Reference Range Interpretation Comments Retic Auto (test code = Retic Auto) 1.8 0.5-1.5 [place]8532-01-30 20:45:00 Test Item Value Reference Range Interpretation Comments Hgb (test code = Hgb) 7.7 12.0-16.0 [place] 658532-01-30 20:45:00 Test Item Value Reference Range Interpretation Comments Hct (test code = Hct) 24.5 36.0-48.0 [place]8532-01-30 20:45:00 Test Item Value Reference Range Interpretation Comments Hgb (test code = Hgb) 7.7 12.0-16.0 [place]8532-01-30 20:45:00 Test Item Value Reference Range Interpretation Comments Hct (test code = Hct) 24.5 36.0-48.0 [place] 658532-01-30 20:45:00 Test Item Value Reference Range Interpretation Comments Hgb (test code = Hgb) 7.7 12.0-16.0 [place] 658532-01-30 20:45:00 Test Item Value Reference Range Interpretation Comments Hct (test code = Hct) 24.5 36.0-48.0 [place] 154502-01-30 15:44:00 Test Item Value Reference Range Interpretation Comments Lactic Acid Lvl (test code = Lactic 1.8 0.5-2.2 Acid Lvl) [facility]2022-01-30 15:44:00 Test Item Value Reference Range Interpretation Comments Lactic Acid Lvl (test code = Lactic 1.8 0.5-2.2 Acid Lvl) [place] 154502-01-30 15:44:00 Test Item Value Reference Range Interpretation Comments Lactic Acid Lvl (test code = Lactic 1.8 0.5-2.2 Acid Lvl) [facility] 14:53:00 Test Item Value Reference Range Interpretation Comments Coronavirus (COVID-19) Not Detected (10/13/21 MADELINE (test code = 8:53 AM) Coronavirus (COVID-19) MADELINE) [facility] AND [id number] 14:53:00 Test Item Value Reference Range Interpretation Comments UA Color (test code = Yellow *NA*(10/13/21 UA Color) 8:53 AM) [facility] AND [id number] 14:53:00 Test Item Value Reference Range Interpretation Comments UA Turbidity (test code = Clear (10/13/21 8:53 UA Turbidity) AM) [facility] AND [id number] 14:53:00 Test Item Value Reference Range Interpretation Comments UA Spec Grav (test code = UA Spec 1.017 1 Grav) [facility] AND [id number] 14:53:00 Test Item Value Reference Range Interpretation Comments UA pH (test code = UA pH) 5.0 1 5.0-8.0 [facility] AND [id number] 14:53:00 Test Item Value Reference Range Interpretation Comments UA Protein (test code = UA Protein) 30 mg/dL [facility] AND [id number] 14:53:00 Test Item Value Reference Range Interpretation Comments UA Glucose (test code = UA Negative mg/dL Glucose) [facility] AND [id number] 14:53:00 Test Item Value Reference Range Interpretation Comments UA Ketones (test code = UA Negative mg/dL Ketones) [facility] AND [id number] 14:53:00 Test Item Value Reference Range Interpretation Comments UA Bili (test code = Negative *NA*(10/13/21 UA Bili) 8:53 AM) [facility] AND [id number] 14:53:00 Test Item Value Reference Range Interpretation Comments UA Blood (test code = Small *ABN*(10/13/21 UA Blood) 8:53 AM) [facility] AND [id number] 14:53:00 Test Item Value Reference Range Interpretation Comments UA Urobilinogen (test code = UA 2.0 0.1-1.0 Urobilinogen) [facility] AND [id number] 14:53:00 Test Item Value Reference Range Interpretation Comments UA Nitrite (test code Negative (10/13/21 8:53 = UA Nitrite) AM) [facility] AND [id number] 14:53:00 Test Item Value Reference Range Interpretation Comments UA Leuk Est (test code Small *ABN*(10/13/21 = UA Leuk Est) 8:53 AM) [facility] AND [id number] 14:53:00 Test Item Value Reference Range Interpretation Comments UA Sq Epi (test code = UA Sq Occasional /LPF Epi) [facility] AND [id number] 14:53:00 Test Item Value Reference Range Interpretation Comments UA WBC (test code = 26 See_Comment [Automa shubham message] The UA WBC) system which ge nerated this result transmit shubham reference range : <=5. The reference range was not used to interpr et this result as elsie l/abnormal. [facility] AND [id number] 14:53:00 Test Item Value Reference Range Interpretation Comments UA RBC (test code = 44 See_Comment [Automa shubham message] The UA RBC) system which ge nerated this result transmit shubham reference range : <=2. The reference range was not used to interpr et this result as elsie l/abnormal. [facility] AND [id number] 14:53:00 Test Item Value Reference Range Interpretation Comments UA Bacteria (test code = UA Occasional /HPF Bacteria) [facility] AND [id number] 14:53:00 Test Item Value Reference Range Interpretation Comments UA Mucus (test code = UA Mucus) Moderate /[facility] [id number] 14:53:00 Test Item Value Reference Range Interpretation Comments Culture: Urine (test code = No Growth Culture: Urine) [id number] 14:53:00 Test Item Value Reference Range Interpretation Comments Coronavirus (COVID-19) Not Detected (10/13/21 MADELINE (test code = 8:53 AM) Coronavirus (COVID-19) MADELINE) [facility] AND [id number] 14:53:00 Test Item Value Reference Range Interpretation Comments UA Color (test code = Yellow *NA*(10/13/21 UA Color) 8:53 AM) [facility] AND [id number] 14:53:00 Test Item Value Reference Range Interpretation Comments UA Turbidity (test code = Clear (10/13/21 8:53 UA Turbidity) AM) [facility] AND [id number] 14:53:00 Test Item Value Reference Range Interpretation Comments UA Spec Grav (test code = UA Spec 1.017 1 Grav) [facility] AND [id number] 14:53:00 Test Item Value Reference Range Interpretation Comments UA pH (test code = UA pH) 5.0 1 5.0-8.0 [facility] AND [id number] 14:53:00 Test Item Value Reference Range Interpretation Comments UA Protein (test code = UA Protein) 30 mg/dL [facility] AND [id number] 14:53:00 Test Item Value Reference Range Interpretation Comments UA Glucose (test code = UA Negative mg/dL Glucose) [facility] AND [id number] 14:53:00 Test Item Value Reference Range Interpretation Comments UA Ketones (test code = UA Negative mg/dL Ketones) [facility] AND [id number] 14:53:00 Test Item Value Reference Range Interpretation Comments UA Bili (test code = Negative *NA*(10/13/21 UA Bili) 8:53 AM) [facility] AND [id number] 14:53:00 Test Item Value Reference Range Interpretation Comments UA Blood (test code = Small *ABN*(10/13/21 UA Blood) 8:53 AM) [facility] AND [id number] 14:53:00 Test Item Value Reference Range Interpretation Comments UA Urobilinogen (test code = UA 2.0 0.1-1.0 Urobilinogen) [facility] AND [id number] 14:53:00 Test Item Value Reference Range Interpretation Comments UA Nitrite (test code Negative (10/13/21 8:53 = UA Nitrite) AM) [facility] AND [id number] 14:53:00 Test Item Value Reference Range Interpretation Comments UA Leuk Est (test code Small *ABN*(10/13/21 = UA Leuk Est) 8:53 AM) [facility] AND [id number] 14:53:00 Test Item Value Reference Range Interpretation Comments UA Sq Epi (test code = UA Sq Occasional /LPF Epi) [facility] AND [id number] 14:53:00 Test Item Value Reference Range Interpretation Comments UA WBC (test code = 26 See_Comment [Automa shubham message] The UA WBC) system which ge nerated this result transmit shubham reference range : <=5. The reference range was not used to interpr et this result as elsie l/abnormal. [facility] AND [id number] 14:53:00 Test Item Value Reference Range Interpretation Comments UA RBC (test code = 44 See_Comment [Automa shubham message] The UA RBC) system which ge nerated this result transmit shubham reference range : <=2. The reference range was not used to interpr et this result as elsie l/abnormal. [facility] AND [id number] 14:53:00 Test Item Value Reference Range Interpretation Comments UA Bacteria (test code = UA Occasional /HPF Bacteria) [facility] AND [id number] 14:53:00 Test Item Value Reference Range Interpretation Comments UA Mucus (test code = UA Mucus) Moderate /[facility]F [facility] [id number] 14:53:00 Test Item Value Reference Range Interpretation Comments Culture: Urine (test code = No Growth Culture: Urine) [id number] 14:53:00 Test Item Value Reference Range Interpretation Comments Coronavirus (COVID-19) Not Detected (10/13/21 MADELINE (test code = 8:53 AM) Coronavirus (COVID-19) MADELINE) [facility] AND [id number] 14:53:00 Test Item Value Reference Range Interpretation Comments UA Color (test code = Yellow *NA*(10/13/21 UA Color) 8:53 AM) [facility] AND [id number] 14:53:00 Test Item Value Reference Range Interpretation Comments UA Turbidity (test code = Clear (10/13/21 8:53 UA Turbidity) AM) [facility] AND [id number] 14:53:00 Test Item Value Reference Range Interpretation Comments UA Spec Grav (test code = UA Spec 1.017 1 Grav) [facility] AND [id number] 14:53:00 Test Item Value Reference Range Interpretation Comments UA pH (test code = UA pH) 5.0 1 5.0-8.0 [facility] AND [id number] 14:53:00 Test Item Value Reference Range Interpretation Comments UA Protein (test code = UA Protein) 30 mg/dL [facility] AND [id number] 14:53:00 Test Item Value Reference Range Interpretation Comments UA Glucose (test code = UA Negative mg/dL Glucose) [facility] AND [id number] 14:53:00 Test Item Value Reference Range Interpretation Comments UA Ketones (test code = UA Negative mg/dL Ketones) [facility] AND [id number] 14:53:00 Test Item Value Reference Range Interpretation Comments UA Bili (test code = Negative *NA*(10/13/21 UA Bili) 8:53 AM) [facility] AND [id number] 14:53:00 Test Item Value Reference Range Interpretation Comments UA Blood (test code = Small *ABN*(10/13/21 UA Blood) 8:53 AM) [facility] AND [id number] 14:53:00 Test Item Value Reference Range Interpretation Comments UA Urobilinogen (test code = UA 2.0 0.1-1.0 Urobilinogen) [facility] AND [id number] 14:53:00 Test Item Value Reference Range Interpretation Comments UA Nitrite (test code Negative (10/13/21 8:53 = UA Nitrite) AM) [facility] AND [id number] 14:53:00 Test Item Value Reference Range Interpretation Comments UA Leuk Est (test code Small *ABN*(10/13/21 = UA Leuk Est) 8:53 AM) [facility] AND [id number] 14:53:00 Test Item Value Reference Range Interpretation Comments UA Sq Epi (test code = UA Sq Occasional /LPF Epi) [facility] AND [id number] 14:53:00 Test Item Value Reference Range Interpretation Comments UA WBC (test code = 26 See_Comment [Automa shubham message] The UA WBC) system which ge nerated this result transmit shubham reference range : <=5. The reference range was not used to interpr et this result as elsie l/abnormal. [facility] AND [id number] 14:53:00 Test Item Value Reference Range Interpretation Comments UA RBC (test code = 44 See_Comment [Automa shubham message] The UA RBC) system which ge nerated this result transmit shubham reference range : <=2. The reference range was not used to interpr et this result as elsie l/abnormal. [facility] AND [id number] 14:53:00 Test Item Value Reference Range Interpretation Comments UA Bacteria (test code = UA Occasional /HPF Bacteria) [facility] AND [id number] 14:53:00 Test Item Value Reference Range Interpretation Comments UA Mucus (test code = UA Mucus) Moderate /LPF [facility] [id number] 14:53:00 Test Item Value Reference Range Interpretation Comments Culture: Urine (test code = No Growth Culture: Urine) [facility]2022-01-30 12:16:00 Test Item Value Reference Range Interpretation Comments Glucose Lvl (test code = Glucose Lvl) 121 70-99 [facility]2022-01-30 12:16:00 Test Item Value Reference Range Interpretation Comments BUN (test code = BUN) 18 7-22 [facility]2022-01-30 12:16:00 Test Item Value Reference Range Interpretation Comments Creatinine Lvl (test code = Creatinine 0.97 0.50-1.40 Lvl) [facility]2022-01-30 12:16:00 Test Item Value Reference Range Interpretation Comments Sodium Lvl (test code = Sodium Lvl) 138 135-145 [facility]2022-01-30 12:16:00 Test Item Value Reference Range Interpretation Comments Potassium Lvl (test code = Potassium 4.1 3.5-5.1 Lvl) [facility]2022-01-30 12:16:00 Test Item Value Reference Range Interpretation Comments Chloride Lvl (test code = Chloride Lvl) 105 95-109 [facility]2022-01-30 12:16:00 Test Item Value Reference Range Interpretation Comments CO2 (test code = CO2) 29 24-32 [facility]2022-01-30 12:16:00 Test Item Value Reference Range Interpretation Comments Calcium Lvl (test code = Calcium Lvl) 8.3 8.5-10.5 [facility]2022-01-30 12:16:00 Test Item Value Reference Range Interpretation Comments AGAP (test code = AGAP) 8.1 10.0-20.0 [facility]2022-01-30 12:16:00 Test Item Value Reference Range Interpretation Comments eGFR (test code = eGFR) 57 [place] 658532-01-30 12:16:00 Test Item Value Reference Range Interpretation Comments WBC (test code = WBC) 11.6 3.7-10.4 [place] 658532-01-30 12:16:00 Test Item Value Reference Range Interpretation Comments RBC (test code = RBC) 3.03 4.20-5.40 [place] 658532-01-30 12:16:00 Test Item Value Reference Range Interpretation Comments Hgb (test code = Hgb) 7.7 12.0-16.0 [place] 658532-01-30 12:16:00 Test Item Value Reference Range Interpretation Comments Hct (test code = Hct) 25.0 36.0-48.0 [place] 658532-01-30 12:16:00 Test Item Value Reference Range Interpretation Comments MCV (test code = MCV) 82.6 80.0-98.0 [place] 658532-01-30 12:16:00 Test Item Value Reference Range Interpretation Comments MCH (test code = MCH) 25.5 pg 27.0-31.0 [place] 658532-01-30 12:16:00 Test Item Value Reference Range Interpretation Comments MCHC (test code = MCHC) 30.8 32.0-36.0 [place] 658532-01-30 12:16:00 Test Item Value Reference Range Interpretation Comments RDW (test code = RDW) 17.5 11.5-14.5 [id number] 12:16:00 Test Item Value Reference Range Interpretation Comments Platelet (test code = Platelet) 233 133-450 [id number] 12:16:00 Test Item Value Reference Range Interpretation Comments MPV (test code = MPV) 7.4 7.4-10.4 [place] 658532-01-30 12:16:00 Test Item Value Reference Range Interpretation Comments Segs (test code = Segs) 79.9 45.0-75.0 [facility] H[id number] 12:16:00 Test Item Value Reference Range Interpretation Comments Lymphocytes (test code = Lymphocytes) 10.4 20.0-40.0 [place] 658532-01-30 12:16:00 Test Item Value Reference Range Interpretation Comments Monocytes (test code = Monocytes) 9.4 2.0-12.0 [facility] [id number] 12:16:00 Test Item Value Reference Range Interpretation Comments Basophils (test code = 0.3 See_Comment [Aut omated message] The Basophils) system which ge nerated this result tra nsmitted reference range : <=1.0. The reference r shin was not used to int erpret this result as normal/abnormal . [facility] Hos[id number] 12:16:00 Test Item Value Reference Range Interpretation Comments Neutrophils # (test code = Neutrophils 9.3 1.5-8.1 #) [facility] [id number] 12:16:00 Test Item Value Reference Range Interpretation Comments Lymphocytes # (test code = Lymphocytes 1.2 1.0-5.5 #) [facility] H[id number] 12:16:00 Test Item Value Reference Range Interpretation Comments Monocytes # (test code 1.1 See_Comment [Aut omated message] The = Monocytes #) system which generated this result tra nsmitted reference range : <=0.8. The reference r shin was not used to int erpret this result as normal/abnormal . [facility]2022-01-30 12:16:00 Test Item Value Reference Range Interpretation Comments Glucose Lvl (test code = Glucose Lvl) 121 70-99 [place] 154502-01-30 12:16:00 Test Item Value Reference Range Interpretation Comments BUN (test code = BUN) 18 7-22 [place] 154502-01-30 12:16:00 Test Item Value Reference Range Interpretation Comments Creatinine Lvl (test code = Creatinine 0.97 0.50-1.40 Lvl) [place] 154502-01-30 12:16:00 Test Item Value Reference Range Interpretation Comments Sodium Lvl (test code = Sodium Lvl) 138 135-145 [place] 154502-01-30 12:16:00 Test Item Value Reference Range Interpretation Comments Potassium Lvl (test code = Potassium 4.1 3.5-5.1 Lvl) [place] 154502-01-30 12:16:00 Test Item Value Reference Range Interpretation Comments Chloride Lvl (test code = Chloride Lvl) 105 95-109 [place] 154502-01-30 12:16:00 Test Item Value Reference Range Interpretation Comments CO2 (test code = CO2) 29 24-32 [place] 154502-01-30 12:16:00 Test Item Value Reference Range Interpretation Comments Calcium Lvl (test code = Calcium Lvl) 8.3 8.5-10.5 [place] 154502-01-30 12:16:00 Test Item Value Reference Range Interpretation Comments AGAP (test code = AGAP) 8.1 10.0-20.0 [place] 154502-01-30 12:16:00 Test Item Value Reference Range Interpretation Comments eGFR (test code = eGFR) 57 [place] 658532-01-30 12:16:00 Test Item Value Reference Range Interpretation Comments WBC (test code = WBC) 11.6 3.7-10.4 [place] 658532-01-30 12:16:00 Test Item Value Reference Range Interpretation Comments RBC (test code = RBC) 3.03 4.20-5.40 [place] 658532-01-30 12:16:00 Test Item Value Reference Range Interpretation Comments Hgb (test code = Hgb) 7.7 12.0-16.0 [place] [address]-01-30 12:16:00 Test Item Value Reference Range Interpretation Comments Hct (test code = Hct) 25.0 36.0-48.0 [place] 658532-01-30 12:16:00 Test Item Value Reference Range Interpretation Comments MCV (test code = MCV) 82.6 80.0-98.0 [place] 658532-01-30 12:16:00 Test Item Value Reference Range Interpretation Comments MCH (test code = MCH) 25.5 pg 27.0-31.0 [place] 658532-01-30 12:16:00 Test Item Value Reference Range Interpretation Comments MCHC (test code = MCHC) 30.8 32.0-36.0 [facility] H[id number] 12:16:00 Test Item Value Reference Range Interpretation Comments RDW (test code = RDW) 17.5 11.5-14.5 [facility] H[id number] 12:16:00 Test Item Value Reference Range Interpretation Comments Platelet (test code = Platelet) 233 133-450 [facility] HospitalLqfqnqdLOAVQZUING6913-21-24 12:16:00 Test Item Value Reference Range Interpretation Comments MPV (test code = MPV) 7.4 7.4-10.4 [place] 658532-01-30 12:16:00 Test Item Value Reference Range Interpretation Comments Segs (test code = Segs) 79.9 45.0-75.0 [place] 658532-01-30 12:16:00 Test Item Value Reference Range Interpretation Comments Lymphocytes (test code = Lymphocytes) 10.4 20.0-40.0 [facility] Hos[id number] 12:16:00 Test Item Value Reference Range Interpretation Comments Monocytes (test code = Monocytes) 9.4 2.0-12.0 [place] 658532-01-30 12:16:00 Test Item Value Reference Range Interpretation Comments Basophils (test code = 0.3 See_Comment [Aut omated message] The Basophils) system which ge nerated this result tra nsmitted reference range : <=1.0. The reference r shin was not used to int erpret this result as normal/abnormal . [facility] Hos[id number] 12:16:00 Test Item Value Reference Range Interpretation Comments Neutrophils # (test code = Neutrophils 9.3 1.5-8.1 #) [place] 658532-01-30 12:16:00 Test Item Value Reference Range Interpretation Comments Lymphocytes # (test code = Lymphocytes 1.2 1.0-5.5 #) [facility] Hos[id number] 12:16:00 Test Item Value Reference Range Interpretation Comments Monocytes # (test code 1.1 See_Comment [Aut omated message] The = Monocytes #) system which generated this result tra nsmitted reference range : <=0.8. The reference r shin was not used to int erpret this result as normal/abnormal . [place] 154502-01-30 12:16:00 Test Item Value Reference Range Interpretation Comments Glucose Lvl (test code = Glucose Lvl) 121 70-99 [place] 154502-01-30 12:16:00 Test Item Value Reference Range Interpretation Comments BUN (test code = BUN) 18 7-22 [place] 154502-01-30 12:16:00 Test Item Value Reference Range Interpretation Comments Creatinine Lvl (test code = Creatinine 0.97 0.50-1.40 Lvl) [place] 154502-01-30 12:16:00 Test Item Value Reference Range Interpretation Comments Sodium Lvl (test code = Sodium Lvl) 138 135-145 [place] 154502-01-30 12:16:00 Test Item Value Reference Range Interpretation Comments Potassium Lvl (test code = Potassium 4.1 3.5-5.1 Lvl) [facility]2022-01-30 12:16:00 Test Item Value Reference Range Interpretation Comments Chloride Lvl (test code = Chloride Lvl) 105 95-109 [place] 154502-01-30 12:16:00 Test Item Value Reference Range Interpretation Comments CO2 (test code = CO2) 29 24-32 [place] 154502-01-30 12:16:00 Test Item Value Reference Range Interpretation Comments Calcium Lvl (test code = Calcium Lvl) 8.3 8.5-10.5 [place] 154502-01-30 12:16:00 Test Item Value Reference Range Interpretation Comments AGAP (test code = AGAP) 8.1 10.0-20.0 [place] 154502-01-30 12:16:00 Test Item Value Reference Range Interpretation Comments eGFR (test code = eGFR) 57 [place] 658532-01-30 12:16:00 Test Item Value Reference Range Interpretation Comments WBC (test code = WBC) 11.6 3.7-10.4 [place] 658532-01-30 12:16:00 Test Item Value Reference Range Interpretation Comments RBC (test code = RBC) 3.03 4.20-5.40 [place] 658532-01-30 12:16:00 Test Item Value Reference Range Interpretation Comments Hgb (test code = Hgb) 7.7 12.0-16.0 [place] 658532-01-30 12:16:00 Test Item Value Reference Range Interpretation Comments Hct (test code = Hct) 25.0 36.0-48.0 [facility] HospitalBhtxjflMNSQTGXPSB1125-22-33 12:16:00 Test Item Value Reference Range Interpretation Comments MCV (test code = MCV) 82.6 80.0-98.0 [place] 658532-01-30 12:16:00 Test Item Value Reference Range Interpretation Comments MCH (test code = MCH) 25.5 pg 27.0-31.0 [facility] HospitalSqcooxoBIUDFOCZIJ2526-69-88 12:16:00 Test Item Value Reference Range Interpretation Comments MCHC (test code = MCHC) 30.8 32.0-36.0 [facility] HospitalDuhdosrMDMXQKBVKC7566-70-14 12:16:00 Test Item Value Reference Range Interpretation Comments RDW (test code = RDW) 17.5 11.5-14.5 [facility] HospitalHilirtiHLRXVYUMCA7819-25-12 12:16:00 Test Item Value Reference Range Interpretation Comments Platelet (test code = Platelet) 233 133-450 [facility] HospitalKbouvdoDVXRUAPUZD8699-81-47 12:16:00 Test Item Value Reference Range Interpretation Comments MPV (test code = MPV) 7.4 7.4-10.4 [place] 658532-01-30 12:16:00 Test Item Value Reference Range Interpretation Comments Segs (test code = Segs) 79.9 45.0-75.0 [facility] HospitalUzrrsvqURIPLZXFPO2770-06-09 12:16:00 Test Item Value Reference Range Interpretation Comments Lymphocytes (test code = Lymphocytes) 10.4 20.0-40.0 [place] 658532-01-30 12:16:00 Test Item Value Reference Range Interpretation Comments Monocytes (test code = Monocytes) 9.4 2.0-12.0 [place] 658532-01-30 12:16:00 Test Item Value Reference Range Interpretation Comments Basophils (test code = 0.3 See_Comment [Aut omated message] The Basophils) system which ge nerated this result tra nsmitted reference range : <=1.0. The reference r shin was not used to int erpret this result as normal/abnormal . [place] 658532-01-30 12:16:00 Test Item Value Reference Range Interpretation Comments Neutrophils # (test code = Neutrophils 9.3 1.5-8.1 #) [place] 658532-01-30 12:16:00 Test Item Value Reference Range Interpretation Comments Lymphocytes # (test code = Lymphocytes 1.2 1.0-5.5 #) [place] 658532-01-30 12:16:00 Test Item Value Reference Range Interpretation Comments Monocytes # (test code 1.1 See_Comment [Aut omated message] The = Monocytes #) system which generated this result tra nsmitted reference range : <=0.8. The reference r shin was not used to int erpret this result as normal/abnormal . [place] 154502-01-29 08:52:00 Test Item Value Reference Range Interpretation Comments Glucose Lvl (test code = Glucose Lvl) 130 70-99 [place] 154502-01-29 08:52:00 Test Item Value Reference Range Interpretation Comments BUN (test code = BUN) 13 7-22 [place] 154502-01-29 08:52:00 Test Item Value Reference Range Interpretation Comments Creatinine Lvl (test code = Creatinine 0.88 0.50-1.40 Lvl) [place] 154502-01-29 08:52:00 Test Item Value Reference Range Interpretation Comments Sodium Lvl (test code = Sodium Lvl) 142 135-145 [place] 154502-01-29 08:52:00 Test Item Value Reference Range Interpretation Comments Potassium Lvl (test code = Potassium 4.3 3.5-5.1 Lvl) [place] 154502-01-29 08:52:00 Test Item Value Reference Range Interpretation Comments Chloride Lvl (test code = Chloride Lvl) 110 95-109 [place] 154502-01-29 08:52:00 Test Item Value Reference Range Interpretation Comments CO2 (test code = CO2) 28 24-32 [place] 154502-01-29 08:52:00 Test Item Value Reference Range Interpretation Comments Calcium Lvl (test code = Calcium Lvl) 8.3 8.5-10.5 [place] 154502-01-29 08:52:00 Test Item Value Reference Range Interpretation Comments AGAP (test code = AGAP) 8.3 10.0-20.0 [place] 154502-01-29 08:52:00 Test Item Value Reference Range Interpretation Comments eGFR (test code = eGFR) 63 [place] 658532-01-29 08:52:00 Test Item Value Reference Range Interpretation Comments RBC Morph (test code = Normal (10/12/21 2:52 RBC Morph) AM) [place] 658532-01-29 08:52:00 Test Item Value Reference Range Interpretation Comments Plt Morph (test code = Normal (10/12/21 2:52 Plt Morph) AM) [place] 658532-01-29 08:52:00 Test Item Value Reference Range Interpretation Comments Segs (test code = Segs) 91.1 45.0-75.0 [place] 658532-01-29 08:52:00 Test Item Value Reference Range Interpretation Comments Lymphocytes (test code = Lymphocytes) 4.6 20.0-40.0 [place] 658532-01-29 08:52:00 Test Item Value Reference Range Interpretation Comments Monocytes (test code = Monocytes) 3.9 2.0-12.0 [place] 658532-01-29 08:52:00 Test Item Value Reference Range Interpretation Comments Basophils (test code = 0.4 See_Comment [Aut omated message] The Basophils) system which ge nerated this result tra nsmitted reference range : <=1.0. The reference r shin was not used to int erpret this result as normal/abnormal . [place] 658532-01-29 08:52:00 Test Item Value Reference Range Interpretation Comments Neutrophils # (test code = Neutrophils 9.1 1.5-8.1 #) [place] 658532-01-29 08:52:00 Test Item Value Reference Range Interpretation Comments Lymphocytes # (test code = Lymphocytes 0.5 1.0-5.5 #) [place] 658532-01-29 08:52:00 Test Item Value Reference Range Interpretation Comments Monocytes # (test code 0.4 See_Comment [Aut omated message] The = Monocytes #) system which generated this result tra nsmitted reference range : <=0.8. The reference r shin was not used to int erpret this result as normal/abnormal . [facility] HospitalOsfdkgcALBWZDYFJH8052-51-42 08:52:00 Test Item Value Reference Range Interpretation Comments WBC (test code = WBC) 9.9 3.7-10.4 [place] 658532-01-29 08:52:00 Test Item Value Reference Range Interpretation Comments RBC (test code = RBC) 3.80 4.20-5.40 [place] 658532-01-29 08:52:00 Test Item Value Reference Range Interpretation Comments Hgb (test code = Hgb) 10.0 12.0-16.0 [place] 658532-01-29 08:52:00 Test Item Value Reference Range Interpretation Comments Hct (test code = Hct) 31.7 36.0-48.0 [place] 658532-01-29 08:52:00 Test Item Value Reference Range Interpretation Comments MCV (test code = MCV) 83.4 80.0-98.0 [place] 658532-01-29 08:52:00 Test Item Value Reference Range Interpretation Comments MCH (test code = MCH) 26.3 pg 27.0-31.0 [place] 658532-01-29 08:52:00 Test Item Value Reference Range Interpretation Comments MCHC (test code = MCHC) 31.6 32.0-36.0 [place] 658532-01-29 08:52:00 Test Item Value Reference Range Interpretation Comments RDW (test code = RDW) 17.1 11.5-14.5 [place] 658532-01-29 08:52:00 Test Item Value Reference Range Interpretation Comments Platelet (test code = Platelet) 283 133-450 [place] 658532-01-29 08:52:00 Test Item Value Reference Range Interpretation Comments MPV (test code = MPV) 7.3 7.4-10.4 [place] 154502-01-29 08:52:00 Test Item Value Reference Range Interpretation Comments Glucose Lvl (test code = Glucose Lvl) 130 70-99 [facility]2022-01-29 08:52:00 Test Item Value Reference Range Interpretation Comments BUN (test code = BUN) 13 7-22 [place] 154502-01-29 08:52:00 Test Item Value Reference Range Interpretation Comments Creatinine Lvl (test code = Creatinine 0.88 0.50-1.40 Lvl) [place] 154502-01-29 08:52:00 Test Item Value Reference Range Interpretation Comments Sodium Lvl (test code = Sodium Lvl) 142 135-145 [place] 154502-01-29 08:52:00 Test Item Value Reference Range Interpretation Comments Potassium Lvl (test code = Potassium 4.3 3.5-5.1 Lvl) [place] 154502-01-29 08:52:00 Test Item Value Reference Range Interpretation Comments Chloride Lvl (test code = Chloride Lvl) 110 95-109 [place] 154502-01-29 08:52:00 Test Item Value Reference Range Interpretation Comments CO2 (test code = CO2) 28 24-32 [place] 154502-01-29 08:52:00 Test Item Value Reference Range Interpretation Comments Calcium Lvl (test code = Calcium Lvl) 8.3 8.5-10.5 [place] 154502-01-29 08:52:00 Test Item Value Reference Range Interpretation Comments AGAP (test code = AGAP) 8.3 10.0-20.0 [place] 154502-01-29 08:52:00 Test Item Value Reference Range Interpretation Comments eGFR (test code = eGFR) 63 [place] 658532-01-29 08:52:00 Test Item Value Reference Range Interpretation Comments RBC Morph (test code = Normal (10/12/21 2:52 RBC Morph) AM) [place] 658532-01-29 08:52:00 Test Item Value Reference Range Interpretation Comments Plt Morph (test code = Normal (10/12/21 2:52 Plt Morph) AM) [id number] 08:52:00 Test Item Value Reference Range Interpretation Comments Segs (test code = Segs) 91.1 45.0-75.0 [place] 658532-01-29 08:52:00 Test Item Value Reference Range Interpretation Comments Lymphocytes (test code = Lymphocytes) 4.6 20.0-40.0 [place] 658532-01-29 08:52:00 Test Item Value Reference Range Interpretation Comments Monocytes (test code = Monocytes) 3.9 2.0-12.0 [place] 658532-01-29 08:52:00 Test Item Value Reference Range Interpretation Comments Basophils (test code = 0.4 See_Comment [Aut omated message] The Basophils) system which ge nerated this result tra nsmitted reference range : <=1.0. The reference r shin was not used to int erpret this result as normal/abnormal . [place] 658532-01-29 08:52:00 Test Item Value Reference Range Interpretation Comments Neutrophils # (test code = Neutrophils 9.1 1.5-8.1 #) [place] 658532-01-29 08:52:00 Test Item Value Reference Range Interpretation Comments Lymphocytes # (test code = Lymphocytes 0.5 1.0-5.5 #) [place] 658532-01-29 08:52:00 Test Item Value Reference Range Interpretation Comments Monocytes # (test code 0.4 See_Comment [Aut omated message] The = Monocytes #) system which generated this result tra nsmitted reference range : <=0.8. The reference r shin was not used to int erpret this result as normal/abnormal . [id number] 08:52:00 Test Item Value Reference Range Interpretation Comments WBC (test code = WBC) 9.9 3.7-10.4 [place] 658532-01-29 08:52:00 Test Item Value Reference Range Interpretation Comments RBC (test code = RBC) 3.80 4.20-5.40 [place] 658532-01-29 08:52:00 Test Item Value Reference Range Interpretation Comments Hgb (test code = Hgb) 10.0 12.0-16.0 [place] [address]-01-29 08:52:00 Test Item Value Reference Range Interpretation Comments Hct (test code = Hct) 31.7 36.0-48.0 [place] 658532-01-29 08:52:00 Test Item Value Reference Range Interpretation Comments MCV (test code = MCV) 83.4 80.0-98.0 [place] 658532-01-29 08:52:00 Test Item Value Reference Range Interpretation Comments MCH (test code = MCH) 26.3 pg 27.0-31.0 [place] 658532-01-29 08:52:00 Test Item Value Reference Range Interpretation Comments MCHC (test code = MCHC) 31.6 32.0-36.0 [place] 658532-01-29 08:52:00 Test Item Value Reference Range Interpretation Comments RDW (test code = RDW) 17.1 11.5-14.5 [place] 658532-01-29 08:52:00 Test Item Value Reference Range Interpretation Comments Platelet (test code = Platelet) 283 133-450 [place] 658532-01-29 08:52:00 Test Item Value Reference Range Interpretation Comments MPV (test code = MPV) 7.3 7.4-10.4 [place] 154502-01-29 08:52:00 Test Item Value Reference Range Interpretation Comments Glucose Lvl (test code = Glucose Lvl) 130 70-99 [place] 154502-01-29 08:52:00 Test Item Value Reference Range Interpretation Comments BUN (test code = BUN) 13 7-22 [place] 154502-01-29 08:52:00 Test Item Value Reference Range Interpretation Comments Creatinine Lvl (test code = Creatinine 0.88 0.50-1.40 Lvl) [place] 154502-01-29 08:52:00 Test Item Value Reference Range Interpretation Comments Sodium Lvl (test code = Sodium Lvl) 142 135-145 [place] 154502-01-29 08:52:00 Test Item Value Reference Range Interpretation Comments Potassium Lvl (test code = Potassium 4.3 3.5-5.1 Lvl) [place] 154502-01-29 08:52:00 Test Item Value Reference Range Interpretation Comments Chloride Lvl (test code = Chloride Lvl) 110 95-109 [place] 154502-01-29 08:52:00 Test Item Value Reference Range Interpretation Comments CO2 (test code = CO2) 28 24-32 [place] 154502-01-29 08:52:00 Test Item Value Reference Range Interpretation Comments Calcium Lvl (test code = Calcium Lvl) 8.3 8.5-10.5 [place] 154502-01-29 08:52:00 Test Item Value Reference Range Interpretation Comments AGAP (test code = AGAP) 8.3 10.0-20.0 [place] 154502-01-29 08:52:00 Test Item Value Reference Range Interpretation Comments eGFR (test code = eGFR) 63 [place] 658532-01-29 08:52:00 Test Item Value Reference Range Interpretation Comments RBC Morph (test code = Normal (10/12/21 2:52 RBC Morph) AM) [place] 658532-01-29 08:52:00 Test Item Value Reference Range Interpretation Comments Plt Morph (test code = Normal (10/12/21 2:52 Plt Morph) AM) [place] 658532-01-29 08:52:00 Test Item Value Reference Range Interpretation Comments Segs (test code = Segs) 91.1 45.0-75.0 [place] 658532-01-29 08:52:00 Test Item Value Reference Range Interpretation Comments Lymphocytes (test code = Lymphocytes) 4.6 20.0-40.0 [place] 658532-01-29 08:52:00 Test Item Value Reference Range Interpretation Comments Monocytes (test code = Monocytes) 3.9 2.0-12.0 [place] 658532-01-29 08:52:00 Test Item Value Reference Range Interpretation Comments Basophils (test code = 0.4 See_Comment [Aut omated message] The Basophils) system which ge nerated this result tra nsmitted reference range : <=1.0. The reference r shin was not used to int erpret this result as normal/abnormal . [facility]HbcarflAXVUSCWKWG5882-86-36 08:52:00 Test Item Value Reference Range Interpretation Comments Neutrophils # (test code = Neutrophils 9.1 1.5-8.1 #) [place] 658532-01-29 08:52:00 Test Item Value Reference Range Interpretation Comments Lymphocytes # (test code = Lymphocytes 0.5 1.0-5.5 #) [place] 658532-01-29 08:52:00 Test Item Value Reference Range Interpretation Comments Monocytes # (test code 0.4 See_Comment [Aut omated message] The = Monocytes #) system which generated this result tra nsmitted reference range : <=0.8. The reference r shin was not used to int erpret this result as normal/abnormal . [facility] HospitalEzspertJRUYVECQEK0409-94-57 08:52:00 Test Item Value Reference Range Interpretation Comments WBC (test code = WBC) 9.9 3.7-10.4 [facility] HospitalYxapustYMSPNZBDSQ5357-31-80 08:52:00 Test Item Value Reference Range Interpretation Comments RBC (test code = RBC) 3.80 4.20-5.40 [facility] HospitalOwctpvnIPFPAKKOZN4694-71-63 08:52:00 Test Item Value Reference Range Interpretation Comments Hgb (test code = Hgb) 10.0 12.0-16.0 [facility] HospitalVherjbvQEESNIYKBQ7554-92-95 08:52:00 Test Item Value Reference Range Interpretation Comments Hct (test code = Hct) 31.7 36.0-48.0 [facility] HospitalFxujraoSGSQAIJDVW5015-47-49 08:52:00 Test Item Value Reference Range Interpretation Comments MCV (test code = MCV) 83.4 80.0-98.0 [facility] HospitalZxgaxyeCWHBJYSDDR3167-86-81 08:52:00 Test Item Value Reference Range Interpretation Comments MCH (test code = MCH) 26.3 pg 27.0-31.0 [facility] HospitalXibhqbxBYXCDMZDSR7093-41-09 08:52:00 Test Item Value Reference Range Interpretation Comments MCHC (test code = MCHC) 31.6 32.0-36.0 [facility] HospitalIwynkjiCNTCUJGERT5920-52-47 08:52:00 Test Item Value Reference Range Interpretation Comments RDW (test code = RDW) 17.1 11.5-14.5 [facility] HospitalTphgxcnFCFDBBZIND4407-25-57 08:52:00 Test Item Value Reference Range Interpretation Comments Platelet (test code = Platelet) 283 133-450 [facility] HospitalJcxqggmGPKLRHOXZX7019-92-05 08:52:00 Test Item Value Reference Range Interpretation Comments MPV (test code = MPV) 7.3 7.4-10.4 [facility] [id number] 19:43:00 Test Item Value Reference Range Interpretation Comments RBC product (test code Product available = RBC product) 5(10/11/21 1:43 PM) [facility] [id number] 19:43:00 Test Item Value Reference Range Interpretation Comments RBC product (test code Product available = RBC product) 5(10/11/21 1:43 PM) [facility] [id number] 19:43:00 Test Item Value Reference Range Interpretation Comments RBC product (test code Product available = RBC product) 5(10/11/21 1:43 PM) [facility] [id number] 18:49:00 Test Item Value Reference Range Interpretation Comments ABO/Rh (test code = ABO/Rh) O POS [facility] [id number] 18:49:00 Test Item Value Reference Range Interpretation Comments Antibody Scrn (test Negative (10/11/21 code = Antibody Scrn) 12:49 PM) [facility] [id number] 18:49:00 Test Item Value Reference Range Interpretation Comments ABO/Rh (test code = ABO/Rh) O POS [facility] [id number] 18:49:00 Test Item Value Reference Range Interpretation Comments Antibody Scrn (test Negative (10/11/21 code = Antibody Scrn) 12:49 PM) [facility] [id number] 18:49:00 Test Item Value Reference Range Interpretation Comments ABO/Rh (test code = ABO/Rh) O POS [facility] [id number] 18:49:00 Test Item Value Reference Range Interpretation Comments Antibody Scrn (test Negative (10/11/21 code = Antibody Scrn) 12:49 PM) [facility] [id number] 17:23:00 Test Item Value Reference Range Interpretation Comments RBC product (test code Product available = RBC product) 4(10/11/21 11:23 AM) [facility] [id number] 17:23:00 Test Item Value Reference Range Interpretation Comments RBC product (test code Product available = RBC product) 4(10/11/21 11:23 AM) [facility] [id number] 17:23:00 Test Item Value Reference Range Interpretation Comments RBC product (test code Product available = RBC product) 4(10/11/21 11:23 AM) [id number] 16:38:00 Test Item Value Reference Range Interpretation Comments Coronavirus (COVID-19) Not Detected (10/11/21 MADELINE (test code = 10:38 AM) Coronavirus (COVID-19) MADELINE) [facility]xzydlzDYNZPZDGKA8619-67-27 16:38:00 Test Item Value Reference Range Interpretation Comments Coronavirus (COVID-19) Not Detected (10/11/21 MADELINE (test code = 10:38 AM) Coronavirus (COVID-19) MADELINE) [facility] CenterOqqrtqfCMIXFRJEDV0995-83-25 16:38:00 Test Item Value Reference Range Interpretation Comments Coronavirus (COVID-19) Not Detected (10/11/21 MADELINE (test code = 10:38 AM) Coronavirus (COVID-19) MADELINE) [facility] [id number] 16:24:00 Test Item Value Reference Range Interpretation Comments ABO/Rh (test code = ABO/Rh) O POS [facility] [id number] 16:24:00 Test Item Value Reference Range Interpretation Comments Antibody Scrn (test Negative (10/03/21 code = Antibody Scrn) 10:24 AM) [facility] [id number] 16:24:00 Test Item Value Reference Range Interpretation Comments ABO/Rh (test code = ABO/Rh) O POS [facility] [id number] 16:24:00 Test Item Value Reference Range Interpretation Comments Antibody Scrn (test Negative (10/03/21 code = Antibody Scrn) 10:24 AM) [facility] [id number] 16:24:00 Test Item Value Reference Range Interpretation Comments ABO/Rh (test code = ABO/Rh) O POS [facility] [id number] 16:24:00 Test Item Value Reference Range Interpretation Comments Antibody Scrn (test Negative (10/03/21 code = Antibody Scrn) 10:24 AM) [facility] [id number] 15:00:00 Test Item Value Reference Range Interpretation Comments Coronavirus (COVID-19) Not Detected (10/03/21 MADELINE (test code = 9:00 AM) Coronavirus (COVID-19) MADELINE) [facility] [id number] 15:00:00 Test Item Value Reference Range Interpretation Comments Coronavirus (COVID-19) Not Detected (10/03/21 MADELINE (test code = 9:00 AM) Coronavirus (COVID-19) MADELINE) [id number] 15:00:00 Test Item Value Reference Range Interpretation Comments Coronavirus (COVID-19) Not Detected (10/03/21 MADELINE (test code = 9:00 AM) Coronavirus (COVID-19) MADELINE) [facility]2022-01-17 11:56:00 Test Item Value Reference Range Interpretation Comments Glucose Lvl (test code = Glucose Lvl) 111 70-99 [place] 154502-01-17 11:56:00 Test Item Value Reference Range Interpretation Comments BUN (test code = BUN) 21 7-22 [place] 154502-01-17 11:56:00 Test Item Value Reference Range Interpretation Comments Creatinine Lvl (test code = Creatinine 1.29 0.50-1.40 Lvl) [facility]2022-01-17 11:56:00 Test Item Value Reference Range Interpretation Comments Sodium Lvl (test code = Sodium Lvl) 141 135-145 [place] 154502-01-17 11:56:00 Test Item Value Reference Range Interpretation Comments Potassium Lvl (test code = Potassium 3.9 3.5-5.1 Lvl) [facility]2022-01-17 11:56:00 Test Item Value Reference Range Interpretation Comments Chloride Lvl (test code = Chloride Lvl) 102 95-109 [facility]2022-01-17 11:56:00 Test Item Value Reference Range Interpretation Comments CO2 (test code = CO2) 33 24-32 [facility]2022-01-17 11:56:00 Test Item Value Reference Range Interpretation Comments Calcium Lvl (test code = Calcium Lvl) 8.5 8.5-10.5 [facility]2022-01-17 11:56:00 Test Item Value Reference Range Interpretation Comments AGAP (test code = AGAP) 9.9 10.0-20.0 [place] 154502-01-17 11:56:00 Test Item Value Reference Range Interpretation Comments eGFR (test code = eGFR) 40 [facility]2022-01-17 11:56:00 Test Item Value Reference Range Interpretation Comments Magnesium Lvl (test code = Magnesium 1.9 1.8-2.4 Lvl) [facility]2022-01-17 11:56:00 Test Item Value Reference Range Interpretation Comments Phosphorus (test code = Phosphorus) 3.5 2.5-4.5 [place] [address]-01-17 11:56:00 Test Item Value Reference Range Interpretation Comments Segs (test code = Segs) 61.4 45.0-75.0 [place] [address]-01-17 11:56:00 Test Item Value Reference Range Interpretation Comments Lymphocytes (test code = Lymphocytes) 25.3 20.0-40.0 [place] [address]-01-17 11:56:00 Test Item Value Reference Range Interpretation Comments Monocytes (test code = Monocytes) 12.7 2.0-12.0 [place] [address]-01-17 11:56:00 Test Item Value Reference Range Interpretation Comments Basophils (test code = 0.6 See_Comment [Aut omated message] The Basophils) system which ge nerated this result tra nsmitted reference range : <=1.0. The reference r shin was not used to int erpret this result as normal/abnormal . [place] [address]-01-17 11:56:00 Test Item Value Reference Range Interpretation Comments Neutrophils # (test code = Neutrophils 3.7 1.5-8.1 #) [place] [address]-01-17 11:56:00 Test Item Value Reference Range Interpretation Comments Lymphocytes # (test code = Lymphocytes 1.5 1.0-5.5 #) [place] [address]-01-17 11:56:00 Test Item Value Reference Range Interpretation Comments Monocytes # (test code 0.8 See_Comment [Aut omated message] The = Monocytes #) system which generated this result tra nsmitted reference range : <=0.8. The reference r shin was not used to int erpret this result as normal/abnormal . [place] [address]-01-17 11:56:00 Test Item Value Reference Range Interpretation Comments WBC (test code = WBC) 6.0 3.7-10.4 [place] [address]-01-17 11:56:00 Test Item Value Reference Range Interpretation Comments RBC (test code = RBC) 4.13 4.20-5.40 [place] [address]-01-17 11:56:00 Test Item Value Reference Range Interpretation Comments Hgb (test code = Hgb) 10.9 12.0-16.0 [place] 658532-01-17 11:56:00 Test Item Value Reference Range Interpretation Comments Hct (test code = Hct) 34.2 36.0-48.0 [place] 658532-01-17 11:56:00 Test Item Value Reference Range Interpretation Comments MCV (test code = MCV) 82.9 80.0-98.0 [place] 658532-01-17 11:56:00 Test Item Value Reference Range Interpretation Comments MCH (test code = MCH) 26.4 pg 27.0-31.0 [place] 658532-01-17 11:56:00 Test Item Value Reference Range Interpretation Comments MCHC (test code = MCHC) 31.9 32.0-36.0 [place] 658532-01-17 11:56:00 Test Item Value Reference Range Interpretation Comments RDW (test code = RDW) 17.0 11.5-14.5 [place] [address]-01-17 11:56:00 Test Item Value Reference Range Interpretation Comments Platelet (test code = Platelet) 279 133-450 [place] 658532-01-17 11:56:00 Test Item Value Reference Range Interpretation Comments MPV (test code = MPV) 7.8 7.4-10.4 [place] 154502-01-17 11:56:00 Test Item Value Reference Range Interpretation Comments Glucose Lvl (test code = Glucose Lvl) 111 70-99 [place] 154502-01-17 11:56:00 Test Item Value Reference Range Interpretation Comments BUN (test code = BUN) 21 7-22 [place] 154502-01-17 11:56:00 Test Item Value Reference Range Interpretation Comments Creatinine Lvl (test code = Creatinine 1.29 0.50-1.40 Lvl) [place] 154502-01-17 11:56:00 Test Item Value Reference Range Interpretation Comments Sodium Lvl (test code = Sodium Lvl) 141 135-145 [place] 154502-01-17 11:56:00 Test Item Value Reference Range Interpretation Comments Potassium Lvl (test code = Potassium 3.9 3.5-5.1 Lvl) [place] 154502-01-17 11:56:00 Test Item Value Reference Range Interpretation Comments Chloride Lvl (test code = Chloride Lvl) 102 95-109 [place] 154502-01-17 11:56:00 Test Item Value Reference Range Interpretation Comments CO2 (test code = CO2) 33 24-32 [place] 154502-01-17 11:56:00 Test Item Value Reference Range Interpretation Comments Calcium Lvl (test code = Calcium Lvl) 8.5 8.5-10.5 [place] 154502-01-17 11:56:00 Test Item Value Reference Range Interpretation Comments AGAP (test code = AGAP) 9.9 10.0-20.0 [place] 154502-01-17 11:56:00 Test Item Value Reference Range Interpretation Comments eGFR (test code = eGFR) 40 [place] 154502-01-17 11:56:00 Test Item Value Reference Range Interpretation Comments Magnesium Lvl (test code = Magnesium 1.9 1.8-2.4 Lvl) [place] 154502-01-17 11:56:00 Test Item Value Reference Range Interpretation Comments Phosphorus (test code = Phosphorus) 3.5 2.5-4.5 [place] [address]-01-17 11:56:00 Test Item Value Reference Range Interpretation Comments Segs (test code = Segs) 61.4 45.0-75.0 [place] [address]-01-17 11:56:00 Test Item Value Reference Range Interpretation Comments Lymphocytes (test code = Lymphocytes) 25.3 20.0-40.0 [place] [address]-01-17 11:56:00 Test Item Value Reference Range Interpretation Comments Monocytes (test code = Monocytes) 12.7 2.0-12.0 [place] [address]-01-17 11:56:00 Test Item Value Reference Range Interpretation Comments Basophils (test code = 0.6 See_Comment [Aut omated message] The Basophils) system which ge nerated this result tra nsmitted reference range : <=1.0. The reference r shin was not used to int erpret this result as normal/abnormal . [facility]vm[facility]sgZMUYHIBEZE0782-87-34 11:56:00 Test Item Value Reference Range Interpretation Comments Neutrophils # (test code = Neutrophils 3.7 1.5-8.1 #) [facility]fxqonkNCIVQDQFXV8739-58-59 11:56:00 Test Item Value Reference Range Interpretation Comments Lymphocytes # (test code = Lymphocytes 1.5 1.0-5.5 #) [place] 658532-01-17 11:56:00 Test Item Value Reference Range Interpretation Comments Monocytes # (test code 0.8 See_Comment [Aut omated message] The = Monocytes #) system which generated this result tra nsmitted reference range : <=0.8. The reference r shin was not used to int erpret this result as normal/abnormal . [place] 658532-01-17 11:56:00 Test Item Value Reference Range Interpretation Comments WBC (test code = WBC) 6.0 3.7-10.4 [place] 658532-01-17 11:56:00 Test Item Value Reference Range Interpretation Comments RBC (test code = RBC) 4.13 4.20-5.40 [place] 658532-01-17 11:56:00 Test Item Value Reference Range Interpretation Comments Hgb (test code = Hgb) 10.9 12.0-16.0 [place] 658532-01-17 11:56:00 Test Item Value Reference Range Interpretation Comments Hct (test code = Hct) 34.2 36.0-48.0 [place] 658532-01-17 11:56:00 Test Item Value Reference Range Interpretation Comments MCV (test code = MCV) 82.9 80.0-98.0 [place] 658532-01-17 11:56:00 Test Item Value Reference Range Interpretation Comments MCH (test code = MCH) 26.4 pg 27.0-31.0 [place] 658532-01-17 11:56:00 Test Item Value Reference Range Interpretation Comments MCHC (test code = MCHC) 31.9 32.0-36.0 [place] 658532-01-17 11:56:00 Test Item Value Reference Range Interpretation Comments RDW (test code = RDW) 17.0 11.5-14.5 [place] [address]-01-17 11:56:00 Test Item Value Reference Range Interpretation Comments Platelet (test code = Platelet) 279 133-450 [place] 658532-01-17 11:56:00 Test Item Value Reference Range Interpretation Comments MPV (test code = MPV) 7.8 7.4-10.4 [place] 154502-01-17 11:56:00 Test Item Value Reference Range Interpretation Comments Glucose Lvl (test code = Glucose Lvl) 111 70-99 [place] 154502-01-17 11:56:00 Test Item Value Reference Range Interpretation Comments BUN (test code = BUN) 21 7-22 [place] 154502-01-17 11:56:00 Test Item Value Reference Range Interpretation Comments Creatinine Lvl (test code = Creatinine 1.29 0.50-1.40 Lvl) [place] 154502-01-17 11:56:00 Test Item Value Reference Range Interpretation Comments Sodium Lvl (test code = Sodium Lvl) 141 135-145 [place] 154502-01-17 11:56:00 Test Item Value Reference Range Interpretation Comments Potassium Lvl (test code = Potassium 3.9 3.5-5.1 Lvl) [place] 154502-01-17 11:56:00 Test Item Value Reference Range Interpretation Comments Chloride Lvl (test code = Chloride Lvl) 102 95-109 [place] 154502-01-17 11:56:00 Test Item Value Reference Range Interpretation Comments CO2 (test code = CO2) 33 24-32 [place] 154502-01-17 11:56:00 Test Item Value Reference Range Interpretation Comments Calcium Lvl (test code = Calcium Lvl) 8.5 8.5-10.5 [place] 154502-01-17 11:56:00 Test Item Value Reference Range Interpretation Comments AGAP (test code = AGAP) 9.9 10.0-20.0 [place] 154502-01-17 11:56:00 Test Item Value Reference Range Interpretation Comments eGFR (test code = eGFR) 40 [place] 154502-01-17 11:56:00 Test Item Value Reference Range Interpretation Comments Magnesium Lvl (test code = Magnesium 1.9 1.8-2.4 Lvl) [facility]2022-01-17 11:56:00 Test Item Value Reference Range Interpretation Comments Phosphorus (test code = Phosphorus) 3.5 2.5-4.5 [place] 658532-01-17 11:56:00 Test Item Value Reference Range Interpretation Comments Segs (test code = Segs) 61.4 45.0-75.0 [place] 658532-01-17 11:56:00 Test Item Value Reference Range Interpretation Comments Lymphocytes (test code = Lymphocytes) 25.3 20.0-40.0 [place] [address]-01-17 11:56:00 Test Item Value Reference Range Interpretation Comments Monocytes (test code = Monocytes) 12.7 2.0-12.0 [place] 658532-01-17 11:56:00 Test Item Value Reference Range Interpretation Comments Basophils (test code = 0.6 See_Comment [Aut omated message] The Basophils) system which ge nerated this result tra nsmitted reference range : <=1.0. The reference r shin was not used to int erpret this result as normal/abnormal . [place] 658532-01-17 11:56:00 Test Item Value Reference Range Interpretation Comments Neutrophils # (test code = Neutrophils 3.7 1.5-8.1 #) [place] 658532-01-17 11:56:00 Test Item Value Reference Range Interpretation Comments Lymphocytes # (test code = Lymphocytes 1.5 1.0-5.5 #) [place] 658532-01-17 11:56:00 Test Item Value Reference Range Interpretation Comments Monocytes # (test code 0.8 See_Comment [Aut omated message] The = Monocytes #) system which generated this result tra nsmitted reference range : <=0.8. The reference r shin was not used to int erpret this result as normal/abnormal . [place] [address]-01-17 11:56:00 Test Item Value Reference Range Interpretation Comments WBC (test code = WBC) 6.0 3.7-10.4 [place] 658532-01-17 11:56:00 Test Item Value Reference Range Interpretation Comments RBC (test code = RBC) 4.13 4.20-5.40 [place] [address]-01-17 11:56:00 Test Item Value Reference Range Interpretation Comments Hgb (test code = Hgb) 10.9 12.0-16.0 [place] 658532-01-17 11:56:00 Test Item Value Reference Range Interpretation Comments Hct (test code = Hct) 34.2 36.0-48.0 [place] [address]-01-17 11:56:00 Test Item Value Reference Range Interpretation Comments MCV (test code = MCV) 82.9 80.0-98.0 [place] 658532-01-17 11:56:00 Test Item Value Reference Range Interpretation Comments MCH (test code = MCH) 26.4 pg 27.0-31.0 [place] 658532-01-17 11:56:00 Test Item Value Reference Range Interpretation Comments MCHC (test code = MCHC) 31.9 32.0-36.0 [place] 658532-01-17 11:56:00 Test Item Value Reference Range Interpretation Comments RDW (test code = RDW) 17.0 11.5-14.5 [place] 658532-01-17 11:56:00 Test Item Value Reference Range Interpretation Comments Platelet (test code = Platelet) 279 133-450 [place] 658532-01-17 11:56:00 Test Item Value Reference Range Interpretation Comments MPV (test code = MPV) 7.8 7.4-10.4 [facility]2022-01-16 10:21:00 Test Item Value Reference Range Interpretation Comments Glucose Lvl (test code = Glucose Lvl) 110 70-99 [place] 154502-01-16 10:21:00 Test Item Value Reference Range Interpretation Comments BUN (test code = BUN) 17 7-22 [place] 154502-01-16 10:21:00 Test Item Value Reference Range Interpretation Comments Creatinine Lvl (test code = Creatinine 1.17 0.50-1.40 Lvl) [place] 154502-01-16 10:21:00 Test Item Value Reference Range Interpretation Comments Sodium Lvl (test code = Sodium Lvl) 141 135-145 [facility]2022-01-16 10:21:00 Test Item Value Reference Range Interpretation Comments Potassium Lvl (test code = Potassium 3.1 3.5-5.1 Lvl) [place] 154502-01-16 10:21:00 Test Item Value Reference Range Interpretation Comments Chloride Lvl (test code = Chloride Lvl) 99 95-109 [place] 154502-01-16 10:21:00 Test Item Value Reference Range Interpretation Comments CO2 (test code = CO2) 35 24-32 [place] 154502-01-16 10:21:00 Test Item Value Reference Range Interpretation Comments Calcium Lvl (test code = Calcium Lvl) 8.6 8.5-10.5 [place] 154502-01-16 10:21:00 Test Item Value Reference Range Interpretation Comments AGAP (test code = AGAP) 10.1 10.0-20.0 [place] 154502-01-16 10:21:00 Test Item Value Reference Range Interpretation Comments eGFR (test code = eGFR) 45 [place] 154502-01-16 10:21:00 Test Item Value Reference Range Interpretation Comments Magnesium Lvl (test code = Magnesium 1.9 1.8-2.4 Lvl) [place] 154502-01-16 10:21:00 Test Item Value Reference Range Interpretation Comments Phosphorus (test code = Phosphorus) 3.1 2.5-4.5 [place] 658532-01-16 10:21:00 Test Item Value Reference Range Interpretation Comments Segs (test code = Segs) 65.8 45.0-75.0 [place] 658532-01-16 10:21:00 Test Item Value Reference Range Interpretation Comments Lymphocytes (test code = Lymphocytes) 20.6 20.0-40.0 [place] [address]-01-16 10:21:00 Test Item Value Reference Range Interpretation Comments Monocytes (test code = Monocytes) 12.8 2.0-12.0 [place] 658532-01-16 10:21:00 Test Item Value Reference Range Interpretation Comments Basophils (test code = 0.8 See_Comment [Aut omated message] The Basophils) system which ge nerated this result tra nsmitted reference range : <=1.0. The reference r shin was not used to int erpret this result as normal/abnormal . [place] 658532-01-16 10:21:00 Test Item Value Reference Range Interpretation Comments Neutrophils # (test code = Neutrophils 4.3 1.5-8.1 #) [facility]NF6799[facility] 10:21:00 Test Item Value Reference Range Interpretation Comments Lymphocytes # (test code = Lymphocytes 1.3 1.0-5.5 #) [facility]GujpcmlLDFSUPTYBI7232-29-42 10:21:00 Test Item Value Reference Range Interpretation Comments Monocytes # (test code 0.8 See_Comment [Aut omated message] The = Monocytes #) system which generated this result tra nsmitted reference range : <=0.8. The reference r shin was not used to int erpret this result as normal/abnormal . [facility] HospitalLhfmsxnOXRYMAZBAW9715-60-14 10:21:00 Test Item Value Reference Range Interpretation Comments WBC (test code = WBC) 6.5 3.7-10.4 [facility] HospitalTlcidhcKSDFEOHKRJ3706-81-71 10:21:00 Test Item Value Reference Range Interpretation Comments RBC (test code = RBC) 4.15 4.20-5.40 [facility] HospitalUjufjihBDRMQCCAYC1462-63-46 10:21:00 Test Item Value Reference Range Interpretation Comments Hgb (test code = Hgb) 11.1 12.0-16.0 [facility] HospitalTejcbdcHSONSXAPEX9159-53-43 10:21:00 Test Item Value Reference Range Interpretation Comments Hct (test code = Hct) 34.2 36.0-48.0 [facility] HospitalGgmixozZBNBCBXNDH2173-14-78 10:21:00 Test Item Value Reference Range Interpretation Comments MCV (test code = MCV) 82.3 80.0-98.0 [facility] HospitalHhlkryyNNIFMXUJQB0717-30-96 10:21:00 Test Item Value Reference Range Interpretation Comments MCH (test code = MCH) 26.7 pg 27.0-31.0 [place] 658532-01-16 10:21:00 Test Item Value Reference Range Interpretation Comments MCHC (test code = MCHC) 32.5 32.0-36.0 [place]8532-01-16 10:21:00 Test Item Value Reference Range Interpretation Comments RDW (test code = RDW) 16.6 11.5-14.5 [facility] HospitalYwnizmgWZAGOIADZI4188-99-78 10:21:00 Test Item Value Reference Range Interpretation Comments Platelet (test code = Platelet) 267 133-450 [facility]TSNPJIRENU0923[facility]21-20 10:21:00 Test Item Value Reference Range Interpretation Comments MPV (test code = MPV) 8.2 7.4-10.4 [facility]2022-01-16 10:21:00 Test Item Value Reference Range Interpretation Comments Glucose Lvl (test code = Glucose Lvl) 110 70-99 [facility]2022-01-16 10:21:00 Test Item Value Reference Range Interpretation Comments BUN (test code = BUN) 17 7-22 [facility]2022-01-16 10:21:00 Test Item Value Reference Range Interpretation Comments Creatinine Lvl (test code = Creatinine 1.17 0.50-1.40 Lvl) [facility]2022-01-16 10:21:00 Test Item Value Reference Range Interpretation Comments Sodium Lvl (test code = Sodium Lvl) 141 135-145 [facility]2022-01-16 10:21:00 Test Item Value Reference Range Interpretation Comments Potassium Lvl (test code = Potassium 3.1 3.5-5.1 Lvl) [facility]2022-01-16 10:21:00 Test Item Value Reference Range Interpretation Comments Chloride Lvl (test code = Chloride Lvl) 99 95-109 [facility]2022-01-16 10:21:00 Test Item Value Reference Range Interpretation Comments CO2 (test code = CO2) 35 24-32 [facility]2022-01-16 10:21:00 Test Item Value Reference Range Interpretation Comments Calcium Lvl (test code = Calcium Lvl) 8.6 8.5-10.5 [facility]2022-01-16 10:21:00 Test Item Value Reference Range Interpretation Comments AGAP (test code = AGAP) 10.1 10.0-20.0 [facility]2022-01-16 10:21:00 Test Item Value Reference Range Interpretation Comments eGFR (test code = eGFR) 45 [facility]2022-01-16 10:21:00 Test Item Value Reference Range Interpretation Comments Magnesium Lvl (test code = Magnesium 1.9 1.8-2.4 Lvl) [facility]2022-01-16 10:21:00 Test Item Value Reference Range Interpretation Comments Phosphorus (test code = Phosphorus) 3.1 2.5-4.5 [place] 658532-01-16 10:21:00 Test Item Value Reference Range Interpretation Comments Segs (test code = Segs) 65.8 45.0-75.0 [place]8532-01-16 10:21:00 Test Item Value Reference Range Interpretation Comments Lymphocytes (test code = Lymphocytes) 20.6 20.0-40.0 [place]8532-01-16 10:21:00 Test Item Value Reference Range Interpretation Comments Monocytes (test code = Monocytes) 12.8 2.0-12.0 [place]8532-01-16 10:21:00 Test Item Value Reference Range Interpretation Comments Basophils (test code = 0.8 See_Comment [Aut omated message] The Basophils) system which ge nerated this result tra nsmitted reference range : <=1.0. The reference r shin was not used to int erpret this result as normal/abnormal . [place] 658532-01-16 10:21:00 Test Item Value Reference Range Interpretation Comments Neutrophils # (test code = Neutrophils 4.3 1.5-8.1 #) [place]8532-01-16 10:21:00 Test Item Value Reference Range Interpretation Comments Lymphocytes # (test code = Lymphocytes 1.3 1.0-5.5 #) [place] [address]-01-16 10:21:00 Test Item Value Reference Range Interpretation Comments Monocytes # (test code 0.8 See_Comment [Aut omated message] The = Monocytes #) system which generated this result tra nsmitted reference range : <=0.8. The reference r shin was not used to int erpret this result as normal/abnormal . [place] [address]-01-16 10:21:00 Test Item Value Reference Range Interpretation Comments WBC (test code = WBC) 6.5 3.7-10.4 [place] [address]-01-16 10:21:00 Test Item Value Reference Range Interpretation Comments RBC (test code = RBC) 4.15 4.20-5.40 [place] 658532-01-16 10:21:00 Test Item Value Reference Range Interpretation Comments Hgb (test code = Hgb) 11.1 12.0-16.0 [place]8532-01-16 10:21:00 Test Item Value Reference Range Interpretation Comments Hct (test code = Hct) 34.2 36.0-48.0 [place]8532-01-16 10:21:00 Test Item Value Reference Range Interpretation Comments MCV (test code = MCV) 82.3 80.0-98.0 [place]8532-01-16 10:21:00 Test Item Value Reference Range Interpretation Comments MCH (test code = MCH) 26.7 pg 27.0-31.0 [facility] HospitalTofkdyiGJMLUHGZEB8691-49-72 10:21:00 Test Item Value Reference Range Interpretation Comments MCHC (test code = MCHC) 32.5 32.0-36.0 [place] 658532-01-16 10:21:00 Test Item Value Reference Range Interpretation Comments RDW (test code = RDW) 16.6 11.5-14.5 [place]8532-01-16 10:21:00 Test Item Value Reference Range Interpretation Comments Platelet (test code = Platelet) 267 133-450 [facility] HospitalTaldoyuXGXQRENQHK7180-11-30 10:21:00 Test Item Value Reference Range Interpretation Comments MPV (test code = MPV) 8.2 7.4-10.4 [facility]2022-01-16 10:21:00 Test Item Value Reference Range Interpretation Comments Glucose Lvl (test code = Glucose Lvl) 110 70-99 [facility]2022-01-16 10:21:00 Test Item Value Reference Range Interpretation Comments BUN (test code = BUN) 17 7-22 [place] 154502-01-16 10:21:00 Test Item Value Reference Range Interpretation Comments Creatinine Lvl (test code = Creatinine 1.17 0.50-1.40 Lvl) [facility]2022-01-16 10:21:00 Test Item Value Reference Range Interpretation Comments Sodium Lvl (test code = Sodium Lvl) 141 135-145 [facility]2022-01-16 10:21:00 Test Item Value Reference Range Interpretation Comments Potassium Lvl (test code = Potassium 3.1 3.5-5.1 Lvl) [place] 154502-01-16 10:21:00 Test Item Value Reference Range Interpretation Comments Chloride Lvl (test code = Chloride Lvl) 99 95-109 [place] 154502-01-16 10:21:00 Test Item Value Reference Range Interpretation Comments CO2 (test code = CO2) 35 24-32 [place] 154502-01-16 10:21:00 Test Item Value Reference Range Interpretation Comments Calcium Lvl (test code = Calcium Lvl) 8.6 8.5-10.5 [place] 154502-01-16 10:21:00 Test Item Value Reference Range Interpretation Comments AGAP (test code = AGAP) 10.1 10.0-20.0 [place] 154502-01-16 10:21:00 Test Item Value Reference Range Interpretation Comments eGFR (test code = eGFR) 45 [place] 154502-01-16 10:21:00 Test Item Value Reference Range Interpretation Comments Magnesium Lvl (test code = Magnesium 1.9 1.8-2.4 Lvl) [facility]2022-01-16 10:21:00 Test Item Value Reference Range Interpretation Comments Phosphorus (test code = Phosphorus) 3.1 2.5-4.5 [place] 658532-01-16 10:21:00 Test Item Value Reference Range Interpretation Comments Segs (test code = Segs) 65.8 45.0-75.0 [place] 658532-01-16 10:21:00 Test Item Value Reference Range Interpretation Comments Lymphocytes (test code = Lymphocytes) 20.6 20.0-40.0 [place] [address]-01-16 10:21:00 Test Item Value Reference Range Interpretation Comments Monocytes (test code = Monocytes) 12.8 2.0-12.0 [place] [address]-01-16 10:21:00 Test Item Value Reference Range Interpretation Comments Basophils (test code = 0.8 See_Comment [Aut omated message] The Basophils) system which ge nerated this result tra nsmitted reference range : <=1.0. The reference r shin was not used to int erpret this result as normal/abnormal . [place]8532-01-16 10:21:00 Test Item Value Reference Range Interpretation Comments Neutrophils # (test code = Neutrophils 4.3 1.5-8.1 #) [facility]OnfcjjaOIRKFXUAZS9153-75-16 10:21:00 Test Item Value Reference Range Interpretation Comments Lymphocytes # (test code = Lymphocytes 1.3 1.0-5.5 #) [place]8532-01-16 10:21:00 Test Item Value Reference Range Interpretation Comments Monocytes # (test code 0.8 See_Comment [Aut omated message] The = Monocytes #) system which generated this result tra nsmitted reference range : <=0.8. The reference r shin was not used to int erpret this result as normal/abnormal . [place]8532-01-16 10:21:00 Test Item Value Reference Range Interpretation Comments WBC (test code = WBC) 6.5 3.7-10.4 [place]8532-01-16 10:21:00 Test Item Value Reference Range Interpretation Comments RBC (test code = RBC) 4.15 4.20-5.40 [place]8532-01-16 10:21:00 Test Item Value Reference Range Interpretation Comments Hgb (test code = Hgb) 11.1 12.0-16.0 [place] [address]-01-16 10:21:00 Test Item Value Reference Range Interpretation Comments Hct (test code = Hct) 34.2 36.0-48.0 [place] [address]-01-16 10:21:00 Test Item Value Reference Range Interpretation Comments MCV (test code = MCV) 82.3 80.0-98.0 [place] [address]-01-16 10:21:00 Test Item Value Reference Range Interpretation Comments MCH (test code = MCH) 26.7 pg 27.0-31.0 [place] 658532-01-16 10:21:00 Test Item Value Reference Range Interpretation Comments MCHC (test code = MCHC) 32.5 32.0-36.0 [place] [address]-01-16 10:21:00 Test Item Value Reference Range Interpretation Comments RDW (test code = RDW) 16.6 11.5-14.5 [place] 658532-01-16 10:21:00 Test Item Value Reference Range Interpretation Comments Platelet (test code = Platelet) 267 133-450 [place] 658532-01-16 10:21:00 Test Item Value Reference Range Interpretation Comments MPV (test code = MPV) 8.2 7.4-10.4 [place] 154502-01-15 10:01:00 Test Item Value Reference Range Interpretation Comments Glucose Lvl (test code = Glucose Lvl) 98 70-99 [place] 154502-01-15 10:01:00 Test Item Value Reference Range Interpretation Comments BUN (test code = BUN) 15 7-22 [facility]2022-01-15 10:01:00 Test Item Value Reference Range Interpretation Comments Creatinine Lvl (test code = Creatinine 1.13 0.50-1.40 Lvl) [facility]2022-01-15 10:01:00 Test Item Value Reference Range Interpretation Comments Sodium Lvl (test code = Sodium Lvl) 142 135-145 [place] 154502-01-15 10:01:00 Test Item Value Reference Range Interpretation Comments Potassium Lvl (test code = Potassium 3.4 3.5-5.1 Lvl) [facility]2022-01-15 10:01:00 Test Item Value Reference Range Interpretation Comments Chloride Lvl (test code = Chloride Lvl) 101 95-109 [facility]2022-01-15 10:01:00 Test Item Value Reference Range Interpretation Comments CO2 (test code = CO2) 35 24-32 [facility]2022-01-15 10:01:00 Test Item Value Reference Range Interpretation Comments Calcium Lvl (test code = Calcium Lvl) 8.3 8.5-10.5 [facility]2022-01-15 10:01:00 Test Item Value Reference Range Interpretation Comments AGAP (test code = AGAP) 9.4 10.0-20.0 [place] 154502-01-15 10:01:00 Test Item Value Reference Range Interpretation Comments eGFR (test code = eGFR) 47 [facility]2022-01-15 10:01:00 Test Item Value Reference Range Interpretation Comments Magnesium Lvl (test code = Magnesium 1.9 1.8-2.4 Lvl) [facility]FvlsuxrGSOUWHQBHB6023-60-25 10:01:00 Test Item Value Reference Range Interpretation Comments Segs (test code = Segs) 69.2 45.0-75.0 [facility] HospitalDqmslfePGCDNAANWD5844-63-02 10:01:00 Test Item Value Reference Range Interpretation Comments Lymphocytes (test code = Lymphocytes) 19.9 20.0-40.0 [facility] HospitalJuzfeykQUSBGXWVIH0861-91-11 10:01:00 Test Item Value Reference Range Interpretation Comments Monocytes (test code = Monocytes) 10.2 2.0-12.0 [facility] HospitalYybadrxKDOPDPXDHU6909-01-69 10:01:00 Test Item Value Reference Range Interpretation Comments Basophils (test code = 0.7 See_Comment [Aut omated message] The Basophils) system which ge nerated this result tra nsmitted reference range : <=1.0. The reference r shin was not used to int erpret this result as normal/abnormal . [facility] HospitalRrauuvaYWTABCLNHU8765-07-92 10:01:00 Test Item Value Reference Range Interpretation Comments Neutrophils # (test code = Neutrophils 4.2 1.5-8.1 #) [facility] HospitalJmqflszKXUPMWUGZZ3810-36-04 10:01:00 Test Item Value Reference Range Interpretation Comments Lymphocytes # (test code = Lymphocytes 1.2 1.0-5.5 #) [facility] HospitalVphbymwSOATQKGMFA2018-31-12 10:01:00 Test Item Value Reference Range Interpretation Comments Monocytes # (test code 0.6 See_Comment [Aut omated message] The = Monocytes #) system which generated this result tra nsmitted reference range : <=0.8. The reference r shin was not used to int erpret this result as normal/abnormal . [facility] HospitalTsobmviAGTAMLXYIC3557-26-45 10:01:00 Test Item Value Reference Range Interpretation Comments WBC (test code = WBC) 6.0 3.7-10.4 [facility] HospitalOfisyrfAZUCEYXZPY2561-75-37 10:01:00 Test Item Value Reference Range Interpretation Comments RBC (test code = RBC) 3.59 4.20-5.40 [place]8532-01-15 10:01:00 Test Item Value Reference Range Interpretation Comments Hgb (test code = Hgb) 9.8 12.0-16.0 [place]8532-01-15 10:01:00 Test Item Value Reference Range Interpretation Comments Hct (test code = Hct) 29.8 36.0-48.0 [place]8532-01-15 10:01:00 Test Item Value Reference Range Interpretation Comments MCV (test code = MCV) 82.8 80.0-98.0 [facility] HospitalSelfhioWROHVTXQUG5665-48-32 10:01:00 Test Item Value Reference Range Interpretation Comments MCH (test code = MCH) 27.3 pg 27.0-31.0 [facility] HospitalOltbalcMXWHWMSBSS5767-24-13 10:01:00 Test Item Value Reference Range Interpretation Comments MCHC (test code = MCHC) 32.9 32.0-36.0 [facility] HospitalJuqahnvCLSLBMXVLH5195-13-01 10:01:00 Test Item Value Reference Range Interpretation Comments RDW (test code = RDW) 16.7 11.5-14.5 [place]8532-01-15 10:01:00 Test Item Value Reference Range Interpretation Comments Platelet (test code = Platelet) 248 133-450 [facility] HospitalBtngmhbQXEPPZVNZH8379-50-69 10:01:00 Test Item Value Reference Range Interpretation Comments MPV (test code = MPV) 8.4 7.4-10.4 [facility]2022-01-15 10:01:00 Test Item Value Reference Range Interpretation Comments Glucose Lvl (test code = Glucose Lvl) 98 70-99 [facility]2022-01-15 10:01:00 Test Item Value Reference Range Interpretation Comments BUN (test code = BUN) 15 7-22 [facility]2022-01-15 10:01:00 Test Item Value Reference Range Interpretation Comments Creatinine Lvl (test code = Creatinine 1.13 0.50-1.40 Lvl) [facility]2022-01-15 10:01:00 Test Item Value Reference Range Interpretation Comments Sodium Lvl (test code = Sodium Lvl) 142 135-145 [facility]2022-01-15 10:01:00 Test Item Value Reference Range Interpretation Comments Potassium Lvl (test code = Potassium 3.4 3.5-5.1 Lvl) [facility]2022-01-15 10:01:00 Test Item Value Reference Range Interpretation Comments Chloride Lvl (test code = Chloride Lvl) 101 95-109 [facility]2022-01-15 10:01:00 Test Item Value Reference Range Interpretation Comments CO2 (test code = CO2) 35 24-32 [place] 154502-01-15 10:01:00 Test Item Value Reference Range Interpretation Comments Calcium Lvl (test code = Calcium Lvl) 8.3 8.5-10.5 [place] 154502-01-15 10:01:00 Test Item Value Reference Range Interpretation Comments AGAP (test code = AGAP) 9.4 10.0-20.0 [place] 154502-01-15 10:01:00 Test Item Value Reference Range Interpretation Comments eGFR (test code = eGFR) 47 [place] 154502-01-15 10:01:00 Test Item Value Reference Range Interpretation Comments Magnesium Lvl (test code = Magnesium 1.9 1.8-2.4 Lvl) [place]8532-01-15 10:01:00 Test Item Value Reference Range Interpretation Comments Segs (test code = Segs) 69.2 45.0-75.0 [facility] HospitalRnixpzgKOZXCFLMNG2288-77-38 10:01:00 Test Item Value Reference Range Interpretation Comments Lymphocytes (test code = Lymphocytes) 19.9 20.0-40.0 [place]8532-01-15 10:01:00 Test Item Value Reference Range Interpretation Comments Monocytes (test code = Monocytes) 10.2 2.0-12.0 [facility] HospitalFgqlzybKKXORYETGD6690-52-83 10:01:00 Test Item Value Reference Range Interpretation Comments Basophils (test code = 0.7 See_Comment [Aut omated message] The Basophils) system which ge nerated this result tra nsmitted reference range : <=1.0. The reference r shin was not used to int erpret this result as normal/abnormal . [facility] HospitalGxuumktJPJFREMZCH9914-85-54 10:01:00 Test Item Value Reference Range Interpretation Comments Neutrophils # (test code = Neutrophils 4.2 1.5-8.1 #) [facility] HospitalJjqgutlNTQVJGCDRY0122-55-32 10:01:00 Test Item Value Reference Range Interpretation Comments Lymphocytes # (test code = Lymphocytes 1.2 1.0-5.5 #) [place]8532-01-15 10:01:00 Test Item Value Reference Range Interpretation Comments Monocytes # (test code 0.6 See_Comment [Aut omated message] The = Monocytes #) system which generated this result tra nsmitted reference range : <=0.8. The reference r shin was not used to int erpret this result as normal/abnormal . [facility] HospitalUcqvvouVJCOUVALHO7144-01-81 10:01:00 Test Item Value Reference Range Interpretation Comments WBC (test code = WBC) 6.0 3.7-10.4 [facility] HospitalBevynnvENPLTTSAWA0704-14-84 10:01:00 Test Item Value Reference Range Interpretation Comments RBC (test code = RBC) 3.59 4.20-5.40 [facility] HospitalBtdpsrjJRQYSHGJYH2652-13-85 10:01:00 Test Item Value Reference Range Interpretation Comments Hgb (test code = Hgb) 9.8 12.0-16.0 [facility] HospitalSdcdykcRMDYAYPEQB7163-92-51 10:01:00 Test Item Value Reference Range Interpretation Comments Hct (test code = Hct) 29.8 36.0-48.0 [facility]MohturqXRZOULWEJL6680-01-29 10:01:00 Test Item Value Reference Range Interpretation Comments MCV (test code = MCV) 82.8 80.0-98.0 [facility] HospitalXffsjbuDOANUEXAYZ7400-11-76 10:01:00 Test Item Value Reference Range Interpretation Comments MCH (test code = MCH) 27.3 pg 27.0-31.0 [facility] HospitalLduaurjTCKZQIJGCZ9241-38-22 10:01:00 Test Item Value Reference Range Interpretation Comments MCHC (test code = MCHC) 32.9 32.0-36.0 [facility] HospitalOsotvccDFQFHJHUEY2403-79-79 10:01:00 Test Item Value Reference Range Interpretation Comments RDW (test code = RDW) 16.7 11.5-14.5 [facility] HospitalUenjutaANNRACVCWN8554-29-22 10:01:00 Test Item Value Reference Range Interpretation Comments Platelet (test code = Platelet) 248 133-450 [facility] HospitalHkdtskhIGJJBVOSDM1429-92-47 10:01:00 Test Item Value Reference Range Interpretation Comments MPV (test code = MPV) 8.4 7.4-10.4 [facility] [id number] 10:01:00 Test Item Value Reference Range Interpretation Comments Glucose Lvl (test code = Glucose Lvl) 98 70-99 [facility] [id number] 10:01:00 Test Item Value Reference Range Interpretation Comments BUN (test code = BUN) 15 7-22 [place] 154502-01-15 10:01:00 Test Item Value Reference Range Interpretation Comments Creatinine Lvl (test code = Creatinine 1.13 0.50-1.40 Lvl) [facility]2022-01-15 10:01:00 Test Item Value Reference Range Interpretation Comments Sodium Lvl (test code = Sodium Lvl) 142 135-145 [facility]2022-01-15 10:01:00 Test Item Value Reference Range Interpretation Comments Potassium Lvl (test code = Potassium 3.4 3.5-5.1 Lvl) [place] 154502-01-15 10:01:00 Test Item Value Reference Range Interpretation Comments Chloride Lvl (test code = Chloride Lvl) 101 95-109 [facility]2022-01-15 10:01:00 Test Item Value Reference Range Interpretation Comments CO2 (test code = CO2) 35 24-32 [facility]2022-01-15 10:01:00 Test Item Value Reference Range Interpretation Comments Calcium Lvl (test code = Calcium Lvl) 8.3 8.5-10.5 [facility]2022-01-15 10:01:00 Test Item Value Reference Range Interpretation Comments AGAP (test code = AGAP) 9.4 10.0-20.0 [facility]2022-01-15 10:01:00 Test Item Value Reference Range Interpretation Comments eGFR (test code = eGFR) 47 [facility]2022-01-15 10:01:00 Test Item Value Reference Range Interpretation Comments Magnesium Lvl (test code = Magnesium 1.9 1.8-2.4 Lvl) [facility] H[id number] 10:01:00 Test Item Value Reference Range Interpretation Comments Segs (test code = Segs) 69.2 45.0-75.0 [facility] HospitalCxapdavNOIFXVKQDK2263-27-52 10:01:00 Test Item Value Reference Range Interpretation Comments Lymphocytes (test code = Lymphocytes) 19.9 20.0-40.0 [facility] HospitalYyvetizKBLYYPYQNL0030-27-49 10:01:00 Test Item Value Reference Range Interpretation Comments Monocytes (test code = Monocytes) 10.2 2.0-12.0 [facility] HospitalWjtvmstFXGWGZRITN1541-97-18 10:01:00 Test Item Value Reference Range Interpretation Comments Basophils (test code = 0.7 See_Comment [Aut omated message] The Basophils) system which ge nerated this result tra nsmitted reference range : <=1.0. The reference r shin was not used to int erpret this result as normal/abnormal . [facility] HospitalDhkkelkBMKSZAHYJE9604-02-79 10:01:00 Test Item Value Reference Range Interpretation Comments Neutrophils # (test code = Neutrophils 4.2 1.5-8.1 #) [facility] HospitalDbraqciUDGSFHUSGV6949-34-40 10:01:00 Test Item Value Reference Range Interpretation Comments Lymphocytes # (test code = Lymphocytes 1.2 1.0-5.5 #) [facility] HospitalVybwbydHWLCCNXSJU3442-48-37 10:01:00 Test Item Value Reference Range Interpretation Comments Monocytes # (test code 0.6 See_Comment [Aut omated message] The = Monocytes #) system which generated this result tra nsmitted reference range : <=0.8. The reference r shin was not used to int erpret this result as normal/abnormal . [facility] HospitalCfoyunjUKUESGWPTF9490-32-86 10:01:00 Test Item Value Reference Range Interpretation Comments WBC (test code = WBC) 6.0 3.7-10.4 [facility] HospitalCurvrlpPQMTDDWEDM6888-86-77 10:01:00 Test Item Value Reference Range Interpretation Comments RBC (test code = RBC) 3.59 4.20-5.40 [facility] HospitalSxrihlnKQSTGTRWDD7048-65-41 10:01:00 Test Item Value Reference Range Interpretation Comments Hgb (test code = Hgb) 9.8 12.0-16.0 [facility] HospitalCbuacnlAVNZCIHJKK1452-58-52 10:01:00 Test Item Value Reference Range Interpretation Comments Hct (test code = Hct) 29.8 36.0-48.0 [facility] HospitalVhkatdoHCRNVTLVZX6799-27-04 10:01:00 Test Item Value Reference Range Interpretation Comments MCV (test code = MCV) 82.8 80.0-98.0 [facility] HospitalEpbhymxWWUULTZFCJ5318-51-38 10:01:00 Test Item Value Reference Range Interpretation Comments MCH (test code = MCH) 27.3 pg 27.0-31.0 [facility] HospitalDsictinOXUBKVYKQA8537-51-57 10:01:00 Test Item Value Reference Range Interpretation Comments MCHC (test code = MCHC) 32.9 32.0-36.0 [facility]MtxlbnpSPQQBBGBVO9407-63-59 10:01:00 Test Item Value Reference Range Interpretation Comments RDW (test code = RDW) 16.7 11.5-14.5 [facility]manOsrjloyOJRJUQQKZY5728-01-22 10:01:00 Test Item Value Reference Range Interpretation Comments Platelet (test code = Platelet) 248 133-450 [facility]manJbuvdrtAEZVRYOGBY5377-98-40 10:01:00 Test Item Value Reference Range Interpretation Comments MPV (test code = MPV) 8.4 7.4-10.4 [facility] [id number] 05:42:00 Test Item Value Reference Range Interpretation Comments HS Troponin I 1 Hr (test code = HS 386.4 Troponin I 1 Hr) [facility] [id number] 05:42:00 Test Item Value Reference Range Interpretation Comments HS Troponin I 0 to 1 Hour Delta (test 23.4 1 code = HS Troponin I 0 to 1 Hour Delta) [facility] [id number] 05:42:00 Test Item Value Reference Range Interpretation Comments HS Troponin I 1 Hr (test code = HS 386.4 Troponin I 1 Hr) [facility] [id number] 05:42:00 Test Item Value Reference Range Interpretation Comments HS Troponin I 0 to 1 Hour Delta (test 23.4 1 code = HS Troponin I 0 to 1 Hour Delta) [facility] [id number] 05:42:00 Test Item Value Reference Range Interpretation Comments HS Troponin I 1 Hr (test code = HS 386.4 Troponin I 1 Hr) [facility] [id number] 05:42:00 Test Item Value Reference Range Interpretation Comments HS Troponin I 0 to 1 Hour Delta (test 23.4 1 code = HS Troponin I 0 to 1 Hour Delta) [facility] [id number] 04:43:00 Test Item Value Reference Range Interpretation Comments HS Troponin I Baseline (test code = HS 363.0 Troponin I Baseline) [facility] [id number] 04:43:00 Test Item Value Reference Range Interpretation Comments HS Troponin I Baseline (test code = HS 363.0 Troponin I Baseline) [facility] CenterSwift BiosciencesAC [id number] 04:43:00 Test Item Value Reference Range Interpretation Comments HS Troponin I Baseline (test code = HS 363.0 Troponin I Baseline) [facility] CenterHrfphxgFDXNKHRUUM0772-28-34 02:19:00 Test Item Value Reference Range Interpretation Comments Coronavirus (COVID-19) Not Detected (09/27/21 MADELINE (test code = 8:19 PM) Coronavirus (COVID-19) MADELINE) [facility]manZlidvslLAGBHFRAAV0766-44-15 02:19:00 Test Item Value Reference Range Interpretation Comments Coronavirus (COVID-19) Not Detected (09/27/21 MADELINE (test code = 8:19 PM) Coronavirus (COVID-19) MADELINE) [facility] CenterUufroxhMGFTQKZJXD9977-65-94 02:19:00 Test Item Value Reference Range Interpretation Comments Coronavirus (COVID-19) Not Detected (09/27/21 MADELINE (test code = 8:19 PM) Coronavirus (COVID-19) MADELINE) [facility] CenterK[facility] Technology [id number] 01:49:00 Test Item Value Reference Range Interpretation Comments Total CK (test code = Total CK) 51 12-191 [facility] CenterK[facility] [id number] 01:49:00 Test Item Value Reference Range Interpretation Comments HS Troponin I (test code = HS Troponin 366.9 I) [facility] CenterK[facility] [id number] 01:49:00 Test Item Value Reference Range Interpretation Comments BNP (test code = BNP) 2022 [facility] APSX [id number] 01:49:00 Test Item Value Reference Range Interpretation Comments Glucose Lvl (test code = Glucose Lvl) 114 70-99 [facility] CenterBeautyStat.com [id number] 01:49:00 Test Item Value Reference Range Interpretation Comments BUN (test code = BUN) 15 - [facility] CenterBe[facility] [id number] 01:49:00 Test Item Value Reference Range Interpretation Comments Creatinine Lvl (test code = Creatinine 1.06 0.50-1.40 Lvl) [facility] CenterBe[facility] [id number] 01:49:00 Test Item Value Reference Range Interpretation Comments Sodium Lvl (test code = Sodium Lvl) 138 135-145 [place] 154502-01-15 01:49:00 Test Item Value Reference Range Interpretation Comments Potassium Lvl (test code = Potassium 3.5 3.5-5.1 Lvl) [place] [address]-01-15 01:49:00 Test Item Value Reference Range Interpretation Comments Chloride Lvl (test code = Chloride Lvl) 101 95-109 [place] 154502-01-15 01:49:00 Test Item Value Reference Range Interpretation Comments CO2 (test code = CO2) 34 24-32 [place] 154502-01-15 01:49:00 Test Item Value Reference Range Interpretation Comments Calcium Lvl (test code = Calcium Lvl) 8.0 8.5-10.5 [place] 154502-01-15 01:49:00 Test Item Value Reference Range Interpretation Comments Total Protein (test code = Total 6.8 6.4-8.4 Protein) [address]01-15 01:49:00 Test Item Value Reference Range Interpretation Comments Albumin Lvl (test code = Albumin Lvl) 2.7 3.5-5.0 [place] 154502-01-15 01:49:00 Test Item Value Reference Range Interpretation Comments ALT (test code = ALT) 126 See_Comment [Auto mated message] The system which ge nerated this result transmit shubham reference range : <=65. The reference range was not used to interpr et this result as elsie l/abnormal. [place] 154502-01-15 01:49:00 Test Item Value Reference Range Interpretation Comments AST (test code = AST) 91 See_Comment [Auto mated message] The system which ge nerated this result transmit shubham reference range : <=37. The reference range was not used to interpr et this result as elsie l/abnormal. [place] 154502-01-15 01:49:00 Test Item Value Reference Range Interpretation Comments Alk Phos (test code = Alk Phos) 98 39-136 [place] 154502-01-15 01:49:00 Test Item Value Reference Range Interpretation Comments Bili Total (test code = Bili Total) 0.9 0.2-1.3 [place] [address]-01-15 01:49:00 Test Item Value Reference Range Interpretation Comments AGAP (test code = AGAP) 6.5 10.0-20.0 [facility] APSX [id number] 01:49:00 Test Item Value Reference Range Interpretation Comments B/C Ratio (test code = B/C Ratio) 14 1 6-25 [facility] CenterBe[facility]yStat.[facility] [id number] 01:49:00 Test Item Value Reference Range Interpretation Comments Globulin (test code = Globulin) 4.1 2.7-4.2 [facility] CenterBe[facility]Stat[facility] [id number] 01:49:00 Test Item Value Reference Range Interpretation Comments A/G Ratio (test code = A/G Ratio) 0.7 1 0.7-1.6 [facility] CenterBe[facility] [id number] 01:49:00 Test Item Value Reference Range Interpretation Comments eGFR (test code = eGFR) 51 [facility] CenterBe[facility] [id number] 01:49:00 Test Item Value Reference Range Interpretation Comments Magnesium Lvl (test code = Magnesium 1.4 1.8-2.4 Lvl) [facility] [id number] 01:49:00 Test Item Value Reference Range Interpretation Comments Phosphorus (test code = Phosphorus) 3.1 2.5-4.5 [facility] CenterAction EngineCARConspireAC [id number] 01:49:00 Test Item Value Reference Range Interpretation Comments Total CK (test code = Total CK) 51 12-191 [facility] CenterK[facility] Technology [id number] 01:49:00 Test Item Value Reference Range Interpretation Comments HS Troponin I (test code = HS Troponin 366.9 I) [facility] CenterK[facility] [id number] 01:49:00 Test Item Value Reference Range Interpretation Comments BNP (test code = BNP) 3 [facility] APSX [id number] 01:49:00 Test Item Value Reference Range Interpretation Comments Glucose Lvl (test code = Glucose Lvl) 114 70-99 [facility] CenterBe[facility] [id number] 01:49:00 Test Item Value Reference Range Interpretation Comments BUN (test code = BUN) 15 7-22 [facility] CenterBe[facility] [id number] 01:49:00 Test Item Value Reference Range Interpretation Comments Creatinine Lvl (test code = Creatinine 1.06 0.50-1.40 Lvl) [facility] CenterBe[facility] [id number] 01:49:00 Test Item Value Reference Range Interpretation Comments Sodium Lvl (test code = Sodium Lvl) 138 135-145 [place] 154502-01-15 01:49:00 Test Item Value Reference Range Interpretation Comments Potassium Lvl (test code = Potassium 3.5 3.5-5.1 Lvl) [place] 154502-01-15 01:49:00 Test Item Value Reference Range Interpretation Comments Chloride Lvl (test code = Chloride Lvl) 101 95-109 [place] 154502-01-15 01:49:00 Test Item Value Reference Range Interpretation Comments CO2 (test code = CO2) 34 24-32 [place] 154502-01-15 01:49:00 Test Item Value Reference Range Interpretation Comments Calcium Lvl (test code = Calcium Lvl) 8.0 8.5-10.5 [place] 154502-01-15 01:49:00 Test Item Value Reference Range Interpretation Comments Total Protein (test code = Total 6.8 6.4-8.4 Protein) [place] 154502-01-15 01:49:00 Test Item Value Reference Range Interpretation Comments Albumin Lvl (test code = Albumin Lvl) 2.7 3.5-5.0 [place] 154502-01-15 01:49:00 Test Item Value Reference Range Interpretation Comments ALT (test code = ALT) 126 See_Comment [Auto mated message] The system which ge nerated this result transmit shubham reference range : <=65. The reference range was not used to interpr et this result as elsie l/abnormal. [place] 154502-01-15 01:49:00 Test Item Value Reference Range Interpretation Comments AST (test code = AST) 91 See_Comment [Auto mated message] The system which ge nerated this result transmit shubham reference range : <=37. The reference range was not used to interpr et this result as elsie l/abnormal. [place] 154502-01-15 01:49:00 Test Item Value Reference Range Interpretation Comments Alk Phos (test code = Alk Phos) 98 39-136 [place] 154502-01-15 01:49:00 Test Item Value Reference Range Interpretation Comments Bili Total (test code = Bili Total) 0.9 0.2-1.3 [facility] [id number] 01:49:00 Test Item Value Reference Range Interpretation Comments AGAP (test code = AGAP) 6.5 10.0-20.0 [facility] CenterBe[facility]Stat[facility] [id number] 01:49:00 Test Item Value Reference Range Interpretation Comments B/C Ratio (test code = B/C Ratio) 14 1 6-25 [facility]Be[facility] [id number] 01:49:00 Test Item Value Reference Range Interpretation Comments Globulin (test code = Globulin) 4.1 2.7-4.2 [facility]Be[facility] [id number] 01:49:00 Test Item Value Reference Range Interpretation Comments A/G Ratio (test code = A/G Ratio) 0.7 1 0.7-1.6 [facility] CenterBe[facility] [id number] 01:49:00 Test Item Value Reference Range Interpretation Comments eGFR (test code = eGFR) 51 [facility] CenterBe[facility] [id number] 01:49:00 Test Item Value Reference Range Interpretation Comments Magnesium Lvl (test code = Magnesium 1.4 1.8-2.4 Lvl) [facility]Be[facility] [id number] 01:49:00 Test Item Value Reference Range Interpretation Comments Phosphorus (test code = Phosphorus) 3.1 2.5-4.5 [facility] CenterKrat[facility] Technology [id number] 01:49:00 Test Item Value Reference Range Interpretation Comments Total CK (test code = Total CK) 51 12-191 [facility] CenterMEPS Real-Time2022-01-15 01:49:00 Test Item Value Reference Range Interpretation Comments HS Troponin I (test code = HS Troponin 366.9 I) [facility] CenterK[facility] [id number] 01:49:00 Test Item Value Reference Range Interpretation Comments BNP (test code = BNP) 2023 [facility]Be[facility] [id number] 01:49:00 Test Item Value Reference Range Interpretation Comments Glucose Lvl (test code = Glucose Lvl) 114 70-99 [facility]Be[facility] [id number] 01:49:00 Test Item Value Reference Range Interpretation Comments BUN (test code = BUN) 15 7-22 [facility] [id number] 01:49:00 Test Item Value Reference Range Interpretation Comments Creatinine Lvl (test code = Creatinine 1.06 0.50-1.40 Lvl) [place] 154502-01-15 01:49:00 Test Item Value Reference Range Interpretation Comments Sodium Lvl (test code = Sodium Lvl) 138 135-145 [place] 154502-01-15 01:49:00 Test Item Value Reference Range Interpretation Comments Potassium Lvl (test code = Potassium 3.5 3.5-5.1 Lvl) [place] 154502-01-15 01:49:00 Test Item Value Reference Range Interpretation Comments Chloride Lvl (test code = Chloride Lvl) 101 95-109 [place] 154502-01-15 01:49:00 Test Item Value Reference Range Interpretation Comments CO2 (test code = CO2) 34 24-32 [place] 154502-01-15 01:49:00 Test Item Value Reference Range Interpretation Comments Calcium Lvl (test code = Calcium Lvl) 8.0 8.5-10.5 [place] 154502-01-15 01:49:00 Test Item Value Reference Range Interpretation Comments Total Protein (test code = Total 6.8 6.4-8.4 Protein) [place] 154502-01-15 01:49:00 Test Item Value Reference Range Interpretation Comments Albumin Lvl (test code = Albumin Lvl) 2.7 3.5-5.0 [place] 154502-01-15 01:49:00 Test Item Value Reference Range Interpretation Comments ALT (test code = ALT) 126 See_Comment [Auto mated message] The system which ge nerated this result transmit shubham reference range : <=65. The reference range was not used to interpr et this result as elsie l/abnormal. [place] 154502-01-15 01:49:00 Test Item Value Reference Range Interpretation Comments AST (test code = AST) 91 See_Comment [Auto mated message] The system which ge nerated this result transmit shubham reference range : <=37. The reference range was not used to interpr et this result as elsie l/abnormal. [place] [address]-01-15 01:49:00 Test Item Value Reference Range Interpretation Comments Alk Phos (test code = Alk Phos) 98 39-136 [place] 154502-01-15 01:49:00 Test Item Value Reference Range Interpretation Comments Bili Total (test code = Bili Total) 0.9 0.2-1.3 [place] 154502-01-15 01:49:00 Test Item Value Reference Range Interpretation Comments AGAP (test code = AGAP) 6.5 10.0-20.0 [place] 154502-01-15 01:49:00 Test Item Value Reference Range Interpretation Comments B/C Ratio (test code = B/C Ratio) 14 1 6-25 [place] 154502-01-15 01:49:00 Test Item Value Reference Range Interpretation Comments Globulin (test code = Globulin) 4.1 2.7-4.2 [place] 154502-01-15 01:49:00 Test Item Value Reference Range Interpretation Comments A/G Ratio (test code = A/G Ratio) 0.7 1 0.7-1.6 [place] 154502-01-15 01:49:00 Test Item Value Reference Range Interpretation Comments eGFR (test code = eGFR) 51 [place] 154502-01-15 01:49:00 Test Item Value Reference Range Interpretation Comments Magnesium Lvl (test code = Magnesium 1.4 1.8-2.4 Lvl) [place] 154502-01-15 01:49:00 Test Item Value Reference Range Interpretation Comments Phosphorus (test code = Phosphorus) 3.1 2.5-4.5 [place] 658532-01-14 22:57:00 Test Item Value Reference Range Interpretation Comments WBC (test code = WBC) 6.6 3.7-10.4 [place] [address]-01-14 22:57:00 Test Item Value Reference Range Interpretation Comments RBC (test code = RBC) 4.02 4.20-5.40 [place] [address]-01-14 22:57:00 Test Item Value Reference Range Interpretation Comments Hgb (test code = Hgb) 10.8 12.0-16.0 [place] 658532-01-14 22:57:00 Test Item Value Reference Range Interpretation Comments Hct (test code = Hct) 33.6 36.0-48.0 [place] 658532-01-14 22:57:00 Test Item Value Reference Range Interpretation Comments MCV (test code = MCV) 83.7 80.0-98.0 [place] 658532-01-14 22:57:00 Test Item Value Reference Range Interpretation Comments MCH (test code = MCH) 26.9 pg 27.0-31.0 [place] 658532-01-14 22:57:00 Test Item Value Reference Range Interpretation Comments MCHC (test code = MCHC) 32.1 32.0-36.0 [place] 658532-01-14 22:57:00 Test Item Value Reference Range Interpretation Comments RDW (test code = RDW) 16.2 11.5-14.5 [place] 658532-01-14 22:57:00 Test Item Value Reference Range Interpretation Comments Platelet (test code = Platelet) 263 133-450 [place] 658532-01-14 22:57:00 Test Item Value Reference Range Interpretation Comments MPV (test code = MPV) 8.9 7.4-10.4 [place] 658532-01-14 22:57:00 Test Item Value Reference Range Interpretation Comments Segs (test code = Segs) 71.2 45.0-75.0 [place] 658532-01-14 22:57:00 Test Item Value Reference Range Interpretation Comments Lymphocytes (test code = Lymphocytes) 18.4 20.0-40.0 [place] 658532-01-14 22:57:00 Test Item Value Reference Range Interpretation Comments Monocytes (test code = Monocytes) 9.3 2.0-12.0 [place] 658532-01-14 22:57:00 Test Item Value Reference Range Interpretation Comments Basophils (test code = 1.1 See_Comment [Aut omated message] The Basophils) system which ge nerated this result tra nsmitted reference range : <=1.0. The reference r shin was not used to int erpret this result as normal/abnormal . [place] 658532-01-14 22:57:00 Test Item Value Reference Range Interpretation Comments Neutrophils # (test code = Neutrophils 4.7 1.5-8.1 #) [place] 658532-01-14 22:57:00 Test Item Value Reference Range Interpretation Comments Lymphocytes # (test code = Lymphocytes 1.2 1.0-5.5 #) [place] 658532-01-14 22:57:00 Test Item Value Reference Range Interpretation Comments Monocytes # (test code 0.6 See_Comment [Aut omated message] The = Monocytes #) system which generated this result tra nsmitted reference range : <=0.8. The reference r shin was not used to int erpret this result as normal/abnormal . [place] 658532-01-14 22:57:00 Test Item Value Reference Range Interpretation Comments Basophils # (test code 0.1 See_Comment [Aut omated message] The = Basophils #) system which generated this result tra nsmitted reference range : <=0.2. The reference r shin was not used to int erpret this result as normal/abnormal . [place] 658532-01-14 22:57:00 Test Item Value Reference Range Interpretation Comments WBC (test code = WBC) 6.6 3.7-10.4 [place] 658532-01-14 22:57:00 Test Item Value Reference Range Interpretation Comments RBC (test code = RBC) 4.02 4.20-5.40 [place] 658532-01-14 22:57:00 Test Item Value Reference Range Interpretation Comments Hgb (test code = Hgb) 10.8 12.0-16.0 [place] 658532-01-14 22:57:00 Test Item Value Reference Range Interpretation Comments Hct (test code = Hct) 33.6 36.0-48.0 [place] 658532-01-14 22:57:00 Test Item Value Reference Range Interpretation Comments MCV (test code = MCV) 83.7 80.0-98.0 [place] 658532-01-14 22:57:00 Test Item Value Reference Range Interpretation Comments MCH (test code = MCH) 26.9 pg 27.0-31.0 [place] 658532-01-14 22:57:00 Test Item Value Reference Range Interpretation Comments MCHC (test code = MCHC) 32.1 32.0-36.0 [place] 658532-01-14 22:57:00 Test Item Value Reference Range Interpretation Comments RDW (test code = RDW) 16.2 11.5-14.5 [place] 658532-01-14 22:57:00 Test Item Value Reference Range Interpretation Comments Platelet (test code = Platelet) 263 133-450 [place] [address]-01-14 22:57:00 Test Item Value Reference Range Interpretation Comments MPV (test code = MPV) 8.9 7.4-10.4 [place] [address]-01-14 22:57:00 Test Item Value Reference Range Interpretation Comments Segs (test code = Segs) 71.2 45.0-75.0 [place] [address]-01-14 22:57:00 Test Item Value Reference Range Interpretation Comments Lymphocytes (test code = Lymphocytes) 18.4 20.0-40.0 [place] [address]-01-14 22:57:00 Test Item Value Reference Range Interpretation Comments Monocytes (test code = Monocytes) 9.3 2.0-12.0 [place] [address]-01-14 22:57:00 Test Item Value Reference Range Interpretation Comments Basophils (test code = 1.1 See_Comment [Aut omated message] The Basophils) system which ge nerated this result tra nsmitted reference range : <=1.0. The reference r shin was not used to int erpret this result as normal/abnormal . [place] [address]-01-14 22:57:00 Test Item Value Reference Range Interpretation Comments Neutrophils # (test code = Neutrophils 4.7 1.5-8.1 #) [place] [address]-01-14 22:57:00 Test Item Value Reference Range Interpretation Comments Lymphocytes # (test code = Lymphocytes 1.2 1.0-5.5 #) [place] [address]-01-14 22:57:00 Test Item Value Reference Range Interpretation Comments Monocytes # (test code 0.6 See_Comment [Aut omated message] The = Monocytes #) system which generated this result tra nsmitted reference range : <=0.8. The reference r shin was not used to int erpret this result as normal/abnormal . [place] [address]-01-14 22:57:00 Test Item Value Reference Range Interpretation Comments Basophils # (test code 0.1 See_Comment [Aut omated message] The = Basophils #) system which generated this result tra nsmitted reference range : <=0.2. The reference r shin was not used to int erpret this result as normal/abnormal . [place] [address]-01-14 22:57:00 Test Item Value Reference Range Interpretation Comments WBC (test code = WBC) 6.6 3.7-10.4 [place] [address]-01-14 22:57:00 Test Item Value Reference Range Interpretation Comments RBC (test code = RBC) 4.02 4.20-5.40 [place] [address]-01-14 22:57:00 Test Item Value Reference Range Interpretation Comments Hgb (test code = Hgb) 10.8 12.0-16.0 [place] [address]-01-14 22:57:00 Test Item Value Reference Range Interpretation Comments Hct (test code = Hct) 33.6 36.0-48.0 [place] [address]-01-14 22:57:00 Test Item Value Reference Range Interpretation Comments MCV (test code = MCV) 83.7 80.0-98.0 [place] [address]-01-14 22:57:00 Test Item Value Reference Range Interpretation Comments MCH (test code = MCH) 26.9 pg 27.0-31.0 [place] [address]-01-14 22:57:00 Test Item Value Reference Range Interpretation Comments MCHC (test code = MCHC) 32.1 32.0-36.0 [place] [address]-01-14 22:57:00 Test Item Value Reference Range Interpretation Comments RDW (test code = RDW) 16.2 11.5-14.5 [place] [address]-01-14 22:57:00 Test Item Value Reference Range Interpretation Comments Platelet (test code = Platelet) 263 133-450 [place] 658532-01-14 22:57:00 Test Item Value Reference Range Interpretation Comments MPV (test code = MPV) 8.9 7.4-10.4 [place] [address]-01-14 22:57:00 Test Item Value Reference Range Interpretation Comments Segs (test code = Segs) 71.2 45.0-75.0 [place] [address]-01-14 22:57:00 Test Item Value Reference Range Interpretation Comments Lymphocytes (test code = Lymphocytes) 18.4 20.0-40.0 [place] [address]-01-14 22:57:00 Test Item Value Reference Range Interpretation Comments Monocytes (test code = Monocytes) 9.3 2.0-12.0 [place] 658532-01-14 22:57:00 Test Item Value Reference Range Interpretation Comments Basophils (test code = 1.1 See_Comment [Aut omated message] The Basophils) system which ge nerated this result tra nsmitted reference range : <=1.0. The reference r shin was not used to int erpret this result as normal/abnormal . [place] 658532-01-14 22:57:00 Test Item Value Reference Range Interpretation Comments Neutrophils # (test code = Neutrophils 4.7 1.5-8.1 #) [place] 658532-01-14 22:57:00 Test Item Value Reference Range Interpretation Comments Lymphocytes # (test code = Lymphocytes 1.2 1.0-5.5 #) [place] 658532-01-14 22:57:00 Test Item Value Reference Range Interpretation Comments Monocytes # (test code 0.6 See_Comment [Aut omated message] The = Monocytes #) system which generated this result tra nsmitted reference range : <=0.8. The reference r shin was not used to int erpret this result as normal/abnormal . [place] [address]-01-14 22:57:00 Test Item Value Reference Range Interpretation Comments Basophils # (test code 0.1 See_Comment [Aut omated message] The = Basophils #) system which generated this result tra nsmitted reference range : <=0.2. The reference r shin was not used to int erpret this result as normal/abnormal . [facility]so[facility]OS[facility]CD5207-92-38 22:51:00 Test Item Value Reference Range Interpretation Comments PT (test code = PT) 18.8 s 12.0-14.7 [place] 658532-01-14 22:51:00 Test Item Value Reference Range Interpretation Comments INR (test code = INR) 1.59 1 0.85-1.17 [place] 658532-01-14 22:51:00 Test Item Value Reference Range Interpretation Comments PTT (test code = PTT) 30.7 s 22.9-35.8 [place] 658532-01-14 22:51:00 Test Item Value Reference Range Interpretation Comments PT (test code = PT) 18.8 s 12.0-14.7 [facility] 22:51:00 Test Item Value Reference Range Interpretation Comments INR (test code = INR) 1.59 1 0.85-1.17 [facility] HospitalRmsrqulJTPVJDWGEE1705-44-39 22:51:00 Test Item Value Reference Range Interpretation Comments PTT (test code = PTT) 30.7 s 22.9-35.8 [facility]bf[facility]hbPXNDIYHVAW8916-09-02 22:51:00 Test Item Value Reference Range Interpretation Comments PT (test code = PT) 18.8 s 12.0-14.7 [facility]pgvkogWHUVGIWMUD2013-[facility] 22:51:00 Test Item Value Reference Range Interpretation Comments INR (test code = INR) 1.59 1 0.85-1.17 [facility]mdkosbOCLURICRHX5659-53-58 22:51:00 Test Item Value Reference Range Interpretation Comments PTT (test code = PTT) 30.7 s 22.9-35.8 [facility] [employer] [facility] [id number] 15:55:00 Test Item Value Reference Range Interpretation Comments ABO/Rh (test code = ABO/Rh) O POS [facility] [employer] [id number] 15:55:00 Test Item Value Reference Range Interpretation Comments Antibody Scrn (test Negative (07/02/21 code = Antibody Scrn) 10:55 AM) [facility] [id number] 15:55:00 Test Item Value Reference Range Interpretation Comments Glucose Lvl (test code = Glucose Lvl) 97 70-99 [facility] [id number] 15:55:00 Test Item Value Reference Range Interpretation Comments BUN (test code = BUN) 19 - [facility] [id number] 15:55:00 Test Item Value Reference Range Interpretation Comments Creatinine Lvl (test code = Creatinine 1.01 0.50-1.40 Lvl) [facility] [id number] 15:55:00 Test Item Value Reference Range Interpretation Comments Sodium Lvl (test code = Sodium Lvl) 140 135-145 [facility] [id number] 15:55:00 Test Item Value Reference Range Interpretation Comments Potassium Lvl (test code = Potassium 3.2 3.5-5.1 Lvl) [place] 154501-10-19 15:55:00 Test Item Value Reference Range Interpretation Comments Chloride Lvl (test code = Chloride Lvl) 102 95-109 [place] 154501-10-19 15:55:00 Test Item Value Reference Range Interpretation Comments CO2 (test code = CO2) 31 24-32 [place] 154501-10-19 15:55:00 Test Item Value Reference Range Interpretation Comments Calcium Lvl (test code = Calcium Lvl) 8.8 8.5-10.5 [place] 154501-10-19 15:55:00 Test Item Value Reference Range Interpretation Comments AGAP (test code = AGAP) 10.2 10.0-20.0 [place] 154501-10-19 15:55:00 Test Item Value Reference Range Interpretation Comments eGFR (test code = eGFR) 54 [place] 658531-10-19 15:55:00 Test Item Value Reference Range Interpretation Comments Segs (test code = Segs) 72.3 45.0-75.0 [place] 658531-10-19 15:55:00 Test Item Value Reference Range Interpretation Comments Lymphocytes (test code = Lymphocytes) 16.8 20.0-40.0 [place] 658531-10-19 15:55:00 Test Item Value Reference Range Interpretation Comments Monocytes (test code = Monocytes) 9.8 2.0-12.0 [place] 658531-10-19 15:55:00 Test Item Value Reference Range Interpretation Comments Basophils (test code = 1.1 See_Comment [Aut omated message] The Basophils) system which ge nerated this result tra nsmitted reference range : <=1.0. The reference r shin was not used to int erpret this result as normal/abnormal . [facility] HospitalDcknxylPBMUJQRMAZ7843-77-17 15:55:00 Test Item Value Reference Range Interpretation Comments Neutrophils # (test code = Neutrophils 4.7 1.5-8.1 #) [facility] HospitalUbtymenWXTVXHDTGG7817-45-28 15:55:00 Test Item Value Reference Range Interpretation Comments Lymphocytes # (test code = Lymphocytes 1.1 1.0-5.5 #) [place] 658531-10-19 15:55:00 Test Item Value Reference Range Interpretation Comments Monocytes # (test code 0.6 See_Comment [Aut omated message] The = Monocytes #) system which generated this result tra nsmitted reference range : <=0.8. The reference r shin was not used to int erpret this result as normal/abnormal . [facility] HospitalBmhqcpbWHKXMRYVTX0348-81-85 15:55:00 Test Item Value Reference Range Interpretation Comments Basophils # (test code 0.1 See_Comment [Aut omated message] The = Basophils #) system which generated this result tra nsmitted reference range : <=0.2. The reference r shin was not used to int erpret this result as normal/abnormal . [facility] HospitalYsvbzymRSCHTFZVDS4595-58-37 15:55:00 Test Item Value Reference Range Interpretation Comments WBC (test code = WBC) 6.5 3.7-10.4 [place] 658531-10-19 15:55:00 Test Item Value Reference Range Interpretation Comments RBC (test code = RBC) 4.02 4.20-5.40 [place] 658531-10-19 15:55:00 Test Item Value Reference Range Interpretation Comments Hgb (test code = Hgb) 11.4 12.0-16.0 [facility]SbkgabvDABXCHGGOD8316-88-29 15:55:00 Test Item Value Reference Range Interpretation Comments Hct (test code = Hct) 35.0 36.0-48.0 [place] 658531-10-19 15:55:00 Test Item Value Reference Range Interpretation Comments MCV (test code = MCV) 86.9 80.0-98.0 [place] 658531-10-19 15:55:00 Test Item Value Reference Range Interpretation Comments MCH (test code = MCH) 28.4 pg 27.0-31.0 [place] 658531-10-19 15:55:00 Test Item Value Reference Range Interpretation Comments MCHC (test code = MCHC) 32.7 32.0-36.0 [place] 658531-10-19 15:55:00 Test Item Value Reference Range Interpretation Comments RDW (test code = RDW) 14.5 11.5-14.5 [facility] HospitalKquyrlpUOHOKZOVGZ9449-38-26 15:55:00 Test Item Value Reference Range Interpretation Comments Platelet (test code = Platelet) 256 133-450 [facility] CenterHonzuouWNQHYFIIEZ4109-52-90 15:55:00 Test Item Value Reference Range Interpretation Comments MPV (test code = MPV) 8.1 7.4-10.4 [facility] CenterZnalqqhNXLISAHCXU6077-00-73 15:55:00 Test Item Value Reference Range Interpretation Comments PT (test code = PT) 12.2 s 12.0-14.7 [facility] RgqhdilIAFYDDKEUI0392-55-01 15:55:00 Test Item Value Reference Range Interpretation Comments INR (test code = INR) 0.91 1 0.85-1.17 [facility] CenterJdlikjiBOVGBWTGJN5273-05-98 15:55:00 Test Item Value Reference Range Interpretation Comments PTT (test code = PTT) 26.8 s 22.9-35.8 [facility] [employer] [id number] 15:55:00 Test Item Value Reference Range Interpretation Comments ABO/Rh (test code = ABO/Rh) O POS [facility] [employer] [id number] 15:55:00 Test Item Value Reference Range Interpretation Comments Antibody Scrn (test Negative (07/02/21 code = Antibody Scrn) 10:55 AM) [facility] [id number] 15:55:00 Test Item Value Reference Range Interpretation Comments Glucose Lvl (test code = Glucose Lvl) 97 70-99 [facility] [id number] 15:55:00 Test Item Value Reference Range Interpretation Comments BUN (test code = BUN) 19 7-22 [facility] [id number] 15:55:00 Test Item Value Reference Range Interpretation Comments Creatinine Lvl (test code = Creatinine 1.01 0.50-1.40 Lvl) [facility] [id number] 15:55:00 Test Item Value Reference Range Interpretation Comments Sodium Lvl (test code = Sodium Lvl) 140 135-145 [facility] [id number] 15:55:00 Test Item Value Reference Range Interpretation Comments Potassium Lvl (test code = Potassium 3.2 3.5-5.1 Lvl) [facility] [id number] 15:55:00 Test Item Value Reference Range Interpretation Comments Chloride Lvl (test code = Chloride Lvl) 102 95-109 [place] 154501-10-19 15:55:00 Test Item Value Reference Range Interpretation Comments CO2 (test code = CO2) 31 24-32 [place] 154501-10-19 15:55:00 Test Item Value Reference Range Interpretation Comments Calcium Lvl (test code = Calcium Lvl) 8.8 8.5-10.5 [place] 154501-10-19 15:55:00 Test Item Value Reference Range Interpretation Comments AGAP (test code = AGAP) 10.2 10.0-20.0 [place] 154501-10-19 15:55:00 Test Item Value Reference Range Interpretation Comments eGFR (test code = eGFR) 54 [place] 658531-10-19 15:55:00 Test Item Value Reference Range Interpretation Comments Segs (test code = Segs) 72.3 45.0-75.0 [place] 658531-10-19 15:55:00 Test Item Value Reference Range Interpretation Comments Lymphocytes (test code = Lymphocytes) 16.8 20.0-40.0 [place] 658531-10-19 15:55:00 Test Item Value Reference Range Interpretation Comments Monocytes (test code = Monocytes) 9.8 2.0-12.0 [place] 658531-10-19 15:55:00 Test Item Value Reference Range Interpretation Comments Basophils (test code = 1.1 See_Comment [Aut omated message] The Basophils) system which ge nerated this result tra nsmitted reference range : <=1.0. The reference r shin was not used to int erpret this result as normal/abnormal . [facility] HospitalXcznozzNPRADVIZKG1633-32-34 15:55:00 Test Item Value Reference Range Interpretation Comments Neutrophils # (test code = Neutrophils 4.7 1.5-8.1 #) [place] 658531-10-19 15:55:00 Test Item Value Reference Range Interpretation Comments Lymphocytes # (test code = Lymphocytes 1.1 1.0-5.5 #) [place] 658531-10-19 15:55:00 Test Item Value Reference Range Interpretation Comments Monocytes # (test code 0.6 See_Comment [Aut omated message] The = Monocytes #) system which generated this result tra nsmitted reference range : <=0.8. The reference r shin was not used to int erpret this result as normal/abnormal . [facility] HospitalAtqyqjtOMRJCKJCRA7427-83-85 15:55:00 Test Item Value Reference Range Interpretation Comments Basophils # (test code 0.1 See_Comment [Aut omated message] The = Basophils #) system which generated this result tra nsmitted reference range : <=0.2. The reference r shin was not used to int erpret this result as normal/abnormal . [facility] HospitalFvbyfywFKRAAJSOQO4799-23-30 15:55:00 Test Item Value Reference Range Interpretation Comments WBC (test code = WBC) 6.5 3.7-10.4 [facility] HospitalHdlsibdMCJLXSZNJG0749-08-20 15:55:00 Test Item Value Reference Range Interpretation Comments RBC (test code = RBC) 4.02 4.20-5.40 [place] 658531-10-19 15:55:00 Test Item Value Reference Range Interpretation Comments Hgb (test code = Hgb) 11.4 12.0-16.0 [place] 658531-10-19 15:55:00 Test Item Value Reference Range Interpretation Comments Hct (test code = Hct) 35.0 36.0-48.0 [facility] HospitalXdcwadwVFPTLLDRRP2590-86-53 15:55:00 Test Item Value Reference Range Interpretation Comments MCV (test code = MCV) 86.9 80.0-98.0 [place] 658531-10-19 15:55:00 Test Item Value Reference Range Interpretation Comments MCH (test code = MCH) 28.4 pg 27.0-31.0 [facility] HospitalWwjikpyVZDVGSWXXS7969-43-34 15:55:00 Test Item Value Reference Range Interpretation Comments MCHC (test code = MCHC) 32.7 32.0-36.0 [place] 658531-10-19 15:55:00 Test Item Value Reference Range Interpretation Comments RDW (test code = RDW) 14.5 11.5-14.5 [place] 658531-10-19 15:55:00 Test Item Value Reference Range Interpretation Comments Platelet (test code = Platelet) 256 133-450 [facility] HospitalJnhsrfvIQBIEIBMTN9113-74-08 15:55:00 Test Item Value Reference Range Interpretation Comments MPV (test code = MPV) 8.1 7.4-10.4 [facility]lsrfkpNYGHNOLZEB4140[facility] 15:55:00 Test Item Value Reference Range Interpretation Comments PT (test code = PT) 12.2 s 12.0-14.7 [facility] HospitalRzyhiuaPWLTTQDAIT3029-38-56 15:55:00 Test Item Value Reference Range Interpretation Comments INR (test code = INR) 0.91 1 0.85-1.17 [facility]JjwlwjuLQOPRIXKTL5846-41-35 15:55:00 Test Item Value Reference Range Interpretation Comments PTT (test code = PTT) 26.8 s 22.9-35.8 [facility] [id number] 15:55:00 Test Item Value Reference Range Interpretation Comments ABO/Rh (test code = ABO/Rh) O POS [facility] [employer] [facility] [id number] 15:55:00 Test Item Value Reference Range Interpretation Comments Antibody Scrn (test Negative (07/02/21 code = Antibody Scrn) 10:55 AM) [facility] [id number] 15:55:00 Test Item Value Reference Range Interpretation Comments Glucose Lvl (test code = Glucose Lvl) 97 70-99 [facility] VIPIZ3527-03-24 15:55:00 Test Item Value Reference Range Interpretation Comments BUN (test code = BUN) 19 7-22 [facility] [id number] 15:55:00 Test Item Value Reference Range Interpretation Comments Creatinine Lvl (test code = Creatinine 1.01 0.50-1.40 Lvl) [facility] [id number] 15:55:00 Test Item Value Reference Range Interpretation Comments Sodium Lvl (test code = Sodium Lvl) 140 135-145 [facility] ZGTHQ4758-30-01 15:55:00 Test Item Value Reference Range Interpretation Comments Potassium Lvl (test code = Potassium 3.2 3.5-5.1 Lvl) [facility] [id number] 15:55:00 Test Item Value Reference Range Interpretation Comments Chloride Lvl (test code = Chloride Lvl) 102 95-109 [facility] [id number] 15:55:00 Test Item Value Reference Range Interpretation Comments CO2 (test code = CO2) 31 24-32 [facility] [id number] 15:55:00 Test Item Value Reference Range Interpretation Comments Calcium Lvl (test code = Calcium Lvl) 8.8 8.5-10.5 [facility]2021-10-19 15:55:00 Test Item Value Reference Range Interpretation Comments AGAP (test code = AGAP) 10.2 10.0-20.0 [facility]2021-10-19 15:55:00 Test Item Value Reference Range Interpretation Comments eGFR (test code = eGFR) 54 [place] 658531-10-19 15:55:00 Test Item Value Reference Range Interpretation Comments Segs (test code = Segs) 72.3 45.0-75.0 [place] 658531-10-19 15:55:00 Test Item Value Reference Range Interpretation Comments Lymphocytes (test code = Lymphocytes) 16.8 20.0-40.0 [facility] HospitalLwnfsbuXMBSAWWFYJ0327-98-85 15:55:00 Test Item Value Reference Range Interpretation Comments Monocytes (test code = Monocytes) 9.8 2.0-12.0 [place] 658531-10-19 15:55:00 Test Item Value Reference Range Interpretation Comments Basophils (test code = 1.1 See_Comment [Aut omated message] The Basophils) system which ge nerated this result tra nsmitted reference range : <=1.0. The reference r shin was not used to int erpret this result as normal/abnormal . [place] 658531-10-19 15:55:00 Test Item Value Reference Range Interpretation Comments Neutrophils # (test code = Neutrophils 4.7 1.5-8.1 #) [place] 658531-10-19 15:55:00 Test Item Value Reference Range Interpretation Comments Lymphocytes # (test code = Lymphocytes 1.1 1.0-5.5 #) [place] 658531-10-19 15:55:00 Test Item Value Reference Range Interpretation Comments Monocytes # (test code 0.6 See_Comment [Aut omated message] The = Monocytes #) system which generated this result tra nsmitted reference range : <=0.8. The reference r shin was not used to int erpret this result as normal/abnormal . [place] 658531-10-19 15:55:00 Test Item Value Reference Range Interpretation Comments Basophils # (test code 0.1 See_Comment [Aut omated message] The = Basophils #) system which generated this result tra nsmitted reference range : <=0.2. The reference r shin was not used to int erpret this result as normal/abnormal . [facility] HospitalMoqefslUDQVHZJGXA5468-89-04 15:55:00 Test Item Value Reference Range Interpretation Comments WBC (test code = WBC) 6.5 3.7-10.4 [facility] HospitalKsuxamaXXUZAEIRWU2764-43-41 15:55:00 Test Item Value Reference Range Interpretation Comments RBC (test code = RBC) 4.02 4.20-5.40 [facility] HospitalEdsjcowHUOBZJYWJU1299-85-40 15:55:00 Test Item Value Reference Range Interpretation Comments Hgb (test code = Hgb) 11.4 12.0-16.0 [facility] HospitalVezoitrIIVGUAHUII1284-53-34 15:55:00 Test Item Value Reference Range Interpretation Comments Hct (test code = Hct) 35.0 36.0-48.0 [facility] HospitalIvtlpagPDOBDUPWIR6418-55-36 15:55:00 Test Item Value Reference Range Interpretation Comments MCV (test code = MCV) 86.9 80.0-98.0 [facility] HospitalEwmpghcWNYZJFTYMY4534-97-69 15:55:00 Test Item Value Reference Range Interpretation Comments MCH (test code = MCH) 28.4 pg 27.0-31.0 [facility] HospitalCorelskHKDMGESJZL7831-08-74 15:55:00 Test Item Value Reference Range Interpretation Comments MCHC (test code = MCHC) 32.7 32.0-36.0 [facility] HospitalWmaryyaCQAZDPUQTY2997-43-41 15:55:00 Test Item Value Reference Range Interpretation Comments RDW (test code = RDW) 14.5 11.5-14.5 [facility] HospitalJogzxyiFOKFSPIXYN8001-42-05 15:55:00 Test Item Value Reference Range Interpretation Comments Platelet (test code = Platelet) 256 133-450 [facility] HospitalMcjkqioUALXBKHGFA0419-50-98 15:55:00 Test Item Value Reference Range Interpretation Comments MPV (test code = MPV) 8.1 7.4-10.4 [facility] HospitalXgylhxiDHSWPMJAQR8748-04-17 15:55:00 Test Item Value Reference Range Interpretation Comments PT (test code = PT) 12.2 s 12.0-14.7 [facility] HospitalKtetdoaMKAHLQBEUS8265-36-66 15:55:00 Test Item Value Reference Range Interpretation Comments INR (test code = INR) 0.91 1 0.85-1.17 [facility] HospitalTbkjyzrZLLARWLRFA1126-15-04 15:55:00 Test Item Value Reference Range Interpretation Comments PTT (test code = PTT) 26.8 s 22.9-35.8 [place] 500821-10-19 14:24:00 Test Item Value Reference Range Interpretation Comments Coronavirus (COVID-19) Not Detected MADELINE (test code = (07/02/21 9:24 AM) Coronavirus (COVID-19) MADELINE) [facility]DN[facility]72[facility] 14:24:00 Test Item Value Reference Range Interpretation Comments Coronavirus (COVID-19) Not Detected MADELINE (test code = (07/02/21 9:24 AM) Coronavirus (COVID-19) MADELINE) [facility]EsxhqcqTZLKOQRUOA0086-75-00 14:24:00 Test Item Value Reference Range Interpretation Comments Coronavirus (COVID-19) Not Detected MADELINE (test code = (07/02/21 9:24 AM) Coronavirus (COVID-19) MADELINE) [facility]
[2023-07-07 14:55] LABS: Absolute Lymphocytes (CBC) 0.9 K/uL (0.7-4.9); Lymphocytes % 12.6 % (15.3-44.8); MCV 90.2 fL (80-100); MPV 8.1 fL (7.6-11.3); Platelets 199 thou/uL (152-406); RBC Red Blood Cell Count 4.21 M/uL (3.86-4.86)
[2023-07-07] MEDS ORDERED: AMLODIPINE 10 MG TAB ONE (14:57)
[2023-07-07] MEDS ORDERED: LABETALOL HCL 100 MG TAB ONE (14:57)
[2023-07-07] MEDS ORDERED: NA CHLORIDE 0.9% 1,000 ML ONE (14:58)
[2023-07-07] MEDS ORDERED: LABETALOL HCL 100 MG/20 ML ONE (14:58)
[2023-07-07 15:09] LABS: Protime INR 1.09
[2023-07-07 15:19] LABS: Albumin 3.1 g/dL (3.4-5.0); Bilirubin Direct 0.2 mg/dL (0-0.2); Bilirubin Indirect, Calculated 0.2 mg/dL (0.2-0.8); Bilirubin Total 0.4 mg/dL (0.2-1.0); Magnesium 1.9 mg/dL (1.6-2.4); Potassium 3.3 mEq/L (3.5-5.1); Troponin High Sensitivity 707.8 pg/mL (<58.9)
--- NOTE | 2023-07-07 15:46 | ER ---
Nurse's Notes [facility] Name: Neela Staton Age: 78 yrs Sex: Female : 1945 Arrival Date: 07/07/2023 Time: 13:59 Bed 6 Private MD: Jmaes Linda C Diagnosis: Headache;Essential (primary) hypertension;Non ST elevation ND;Hypokalemia Presentation: 07/07 14:15 Chief complaint: Patient states: she went to physical therapy and they would not allow ap3 her to participate due to her having high blood pressure. it is reported her blood pressure was 210/100 at PT. patient reports headache, but no changes in vision at this time. patient states she is on blood pressure medications and took them as prescribed this morning. Coronavirus screen: At this time, the client does not indicate any symptoms associated with coronavirus-19. Ebola Screen: No symptoms or risks identified at this time. Initial Sepsis Screen: Does the patient meet any 2 criteria? No. Patient's initial sepsis screen is negative. Does the patient have a suspected source of infection? No. Patient's initial sepsis screen is negative. Risk Assessment: Do you want to hurt yourself or someone else? Patient reports no desire to harm self or others. Onset of symptoms was July 07, 2023. 14:15 Method Of Arrival: Wheelchair ap3 14:17 Acuity: BETHANY 2 ap3 Triage Assessment: 14:17 General: Appears in no apparent distress. Behavior is calm, cooperative, appropriate ap3 for age. Pain: Complains of pain in head Pain currently is 8 out of 10 on a pain scale. Neuro: Level of Consciousness is awake, alert, obeys commands, Oriented to person, place, time, situation. Cardiovascular: Patient's skin is warm and dry. Respiratory: Airway is patent Respiratory effort is even, unlabored, Respiratory pattern is regular, symmetrical. Historical: - Allergies: 14:16 Codeine; ap3 - Home Meds: 15:27 Aspirin Oral once [Active]; Cymbalta 60 mg oral capsule,delayed release (e.c.) 2 times aa5 per day [Active]; levothyroxine 100 mcg oral capsule once [Active]; Furosemide 60mg Oral 2 times per day for edema [Active]; magnesium oxide 400 mg magnesium Oral tablet 2 times per day [Active]; Brilinta 90 mg oral tablet 2 times per day [Active]; sertraline 25 mg oral tablet once [Active]; lisinopril 20 mg Oral tablet once [Active]; atorvastatin 80 mg oral tablet every day at bedtime [Active]; ezetimibe 10 mg oral tablet once [Active]; famotidine 20 mg Oral tablet [Active]; omeprazole 40 mg Oral capsule,delayed release (e.c.) once [Active]; Trelegy Ellipta 100-62.5-25 mcg inhalation Blister, With Inhalation Device once [Active]; calcitonin (salmon) 200 unit/actuation intranasal spray, non-aerosol once [Active]; Dulera 200-5 mcg/actuation inhalation HFA Aerosol Inhaler 2 puffs 2 times per day [Active]; 16:02 carvedilol 6.25 mg oral tablet 2 times per day [Active]; aa5 20:10 amiodarone 200 mg Oral tab once daily [Active]; amlodipine 5 mg tab once daily la4 [Active]; aspirin 81 mg Oral cap once daily [Active]; furosemide 60 mg Oral tab 2 times per day [Active]; midodrine 5 mg Oral tab 3 times per day [Active]; Nexium Oral once daily [Active]; potassium chloride 20 mEq Oral TbER 2 times per day [Active]; Xanax 0.25 mg Oral tab nightly [Active]; - PMHx: 14:16 Atrial fibrillation; Depression; GERD; High Cholesterol; Hypertensive disorder; ap3 Hypothyroidism; Myocardial infarction; neuropathy; - PSHx: 20:10 back sx; Cholecystectomy; Total abdominal hysterectomy; watchman; la4 - Immunization history:: Client reports having NOT received the Covid vaccine. - Social history:: Smoking status: Patient denies any tobacco usage or history of. Screenin:18 Abuse screen: Denies threats or abuse. Nutritional screening: No deficits noted. ap3 Tuberculosis screening: No symptoms or risk factors identified. 20:10 [facility] ED Fall Risk Assessment (Adult) Score/Fall Risk Level 3 or more points = High la4 Risk Oriented to surroundings, Maintained a safe environment, Educated pt \\T\\ family on fall prevention, incl call for assistance when getting out of bed, Provided non-skid footwear, Hourly rounding (assess needs \\T\\ fall precautionary measures) done. Assessment: 14:35 General: Appears comfortable, Behavior is calm, cooperative. Pain: Complains of pain in aa5 head Quality of pain is described as aching, Pain began unknown, pt unable to recall. Is continuous. Neuro: Level of Consciousness is awake, alert, obeys commands, Oriented to person, place, time, situation, Pt seems forgetful, pt states "I guess I am a little forgetful today" . Garnetter are equal bilaterally Moves all extremities. Speech is normal, Facial symmetry appears normal, Pupils are PERRLA. Cardiovascular: Heart tones S1 S2 present Rhythm is regular. Respiratory: Airway is patent Respiratory effort is even, unlabored, Respiratory pattern is regular, symmetrical. GI: Abdomen is non-distended, Bowel sounds present X 4 quads. Abd is soft and non tender X 4 quads. Patient currently denies nausea, vomiting. : No signs and/or symptoms were reported regarding the genitourinary system. EENT: No signs and/or symptoms were reported regarding the EENT system. Derm: Skin is pink, warm \\T\\ dry. Musculoskeletal: Range of motion: intact in all extremities. 15:05 Reassessment: Pt back from CT scan . aa5 15:05 Reassessment: Soiled brief noted, pt cleaned, clean bed sheets applied, clean brief aa5 applied. . 15:05 Reassessment: Pt's family at bedside. . aa5 15:23 Reassessment: Soiled brief noted, pt cleaned and clean brief applied. Socks also aa5 provided for comfort. . 16:00 Reassessment: Patient is alert, oriented x 3, equal unlabored respirations, skin aa5 warm/dry/pink. 17:11 Reassessment: Patient is alert, oriented x 3, equal unlabored respirations, skin aa5 warm/dry/pink. 18:30 Reassessment: Dr. Linda at bedside . aa5 18:50 Reassessment: Pt cleaned, soiled brief noted, clean brief applied. Call pagan within aa5 reach. . 18:50 Reassessment: Patient is alert, oriented x 3, equal unlabored respirations, skin aa5 warm/dry/pink. 20:06 General: Appears in no apparent distress. comfortable, Behavior is calm, cooperative, la4 appropriate for age. Neuro: No deficits noted. Level of Consciousness is awake, alert, obeys commands, Oriented to person, place, time, situation, Moves all extremities. Speech is normal. Cardiovascular: No deficits noted. Reports Headache Denies chest pain, Heart tones S2 Capillary refill < 3 seconds Pulses are all present. Rhythm is atrial fibrillation With PVC's. Respiratory: No deficits noted. Airway is patent Trachea midline Respiratory effort is even, unlabored, Respiratory pattern is regular, symmetrical. Vital Signs: 14:17 Pulse 73; Resp 18; Temp 98.8; Pulse Ox 98% ; Weight 65.32 kg; ap3 14:28 BP 260 / 133; ap3 14:41 BP 229 / 113; aa5 15:25 BP 232 / 96; Pulse 61; Resp 16 S; Pulse Ox 98% on R/A; aa5 15:40 Pulse 58; aa5 15:41 BP 200 / 127; Pulse 59; Resp 18 S; Pulse Ox 98% on R/A; aa5 16:00 BP 220 / 101; Pulse 60; Resp 19 S; Pulse Ox 99% on R/A; aa5 16:14 BP 202 / 117; Pulse 67; Resp 16 S; Pulse Ox 97% on R/A; aa5 16:34 BP 199 / 86; Pulse 68; Pulse Ox 95% on R/A; aa5 16:47 BP 204 / 79; Pulse 65; Resp 16 S; Pulse Ox 97% on R/A; aa5 17:11 BP 173 / 115; Pulse 67; Resp 16 S; Pulse Ox 97% on R/A; aa5 17:30 BP 195 / 99; Pulse 69; Resp 16 S; Pulse Ox 98% on R/A; aa5 18:15 BP 213 / 73; Pulse 65; Resp 18 S; Temp 97.8(TE); Pulse Ox 97% on R/A; aa5 18:45 BP 213 / 83; Pulse 68; Resp 17 S; Pulse Ox 97% on R/A; aa5 19:12 BP 195 / 98; Pulse 66; Pulse Ox 97% ; la4 19:45 BP 185 / 91; Pulse 67 MON; Resp 18 S; Temp 98.3(O); Pulse Ox 98% on R/A; Pain 0/10; la4 19:45 Pain Scale: Adult la4 15:25 MD notified of current BP aa5 15:40 MD notified of bradycardia. aa5 16:34 notified of updated BP reading. Annie mario currently on hold per MD VO. aa5 18:15 Dr. Linda notified of elevated BP. aa5 Vitals: 19:45 Cardiac Rhythm Assessment Atrial fibrillation W/PVC's. la4 Homero Coma Score: 19:45 Eye Response: spontaneous(4). Motor Response: obeys commands(6). Verbal Response: la4 oriented(5). Total: 15. ED Course: 14:02 Patient arrived in ED. mr 14:02 James Linda MD is Private Physician. mr 14:14 Unruly Veras MD is Attending Physician. melchor 14:18 Triage completed. ap3 14:18 Arm band placed on left wrist. ap3 14:30 Parisa Cerda, SUHAIL is Primary Nurse. aa5 14:31 Placed in gown. Bed in low position. Call light in reach. Side rails up X2. Cardiac ap3 monitor on. Pulse ox on. NIBP on. 14:40 Initial lab(s) drawn, by me, sent to lab. Inserted saline lock: 20 gauge in right aa5 forearm, using aseptic technique. Blood collected. 14:54 XRAY Chest (1 view) In Process Unspecified. EDMS 14:56 CT Head Brain wo Cont In Process Unspecified. EDMS 15:44 James Linda MD is Hospitalizing Provider. melchor 18:50 IV discontinued, intact, bleeding controlled, No redness/swelling at site. Pressure aa5 dressing applied, Pt c/o pain to IV site, 20G to R FA, no swelling noted, draws blood, and flushes easily, pt requesting IV to be d/c'd. 18:58 Inserted saline lock: 20 gauge in left forearm, using aseptic technique. aa5 19:09 Report given to SUHAIL Miller. aa5 20:08 Report given to Gurdeep JANG patient going to room 206. la4 20:11 Primary Nurse role handed off by Parisa Cerda, SUHAIL as6 20:12 Provided Education on: plan of care. la4 20:14 No provider procedures requiring assistance completed. la4 Administered Medications: 15:37 Discontinued: mg IV at per protocol once over 2 mins melchor 15:08 Drug: Norvasc PO 10 mg PO once Route: PO; aa5 16:00 Follow up: Response: No adverse reaction aa5 15:08 Drug: Labetalol PO 100 mg PO once Route: PO; aa5 16:00 Follow up: Response: No adverse reaction aa5 15:10 Drug: Labetalol IV 20 mg IV at per protocol once over 2 mins Route: IV; Rate: per aa5 protocol; Infused Over: 2 mins; Site: right forearm; 15:39 Follow up: IV Status: Completed infusion aa5 15:12 Drug: NS 0.9% IV 1000 ml IV at 125 ml/hr continuous Route: IV; Rate: 125 ml/hr; Site: aa left forearm; 18:59 Follow up: IV fluids now infusing to L FA aa5 15:36 CANCELLED (Duplicate Order): [id number] mg IV at per protocol once over 2 mins melchor 15:50 Drug: Aspirin PO Chewable Tablet 81 mg PO once Route: PO; aa5 17:00 Follow up: Response: No adverse reaction aa5 15:50 Drug: Enalaprilat IV 2.5 mg IV at per protocol once; (slow IV push) Route: IV; Rate: aa5 per protocol; Site: right forearm; 16:00 Follow up: Response: No adverse reaction aa5 15:50 Drug: Enalapril PO 5 mg PO once Route: PO; aa5 17:30 Follow up: Response: No adverse reaction; Blood pressure is lowered aa5 16:01 Not Given (Physician Discretion; HR 58bpm): [id number] mg IV at per protocol once aa5 16:01 Not Given (Physician Discretion; HR 58bpmm): [id number] mg IV at per protocol once aa5 16:39 Not Given (bp improved ): [id number] mg/hr IV at per protocol See Administration melchor Instructions; (Standard concentration 25 mg / 250 mL NS); Recommended max rate 15 mg/hr; Titrate 2.5 mg/hr as often as every 15 minutes to achieve goal (see titration policy); Goal parameter SBP less than 160 mmHg 18:30 Drug: cloNIDine PO 0.1 mg PO once Route: PO; aa5 18:59 Follow up: Response: No adverse reaction aa5 Medication: 20:12 VIS not applicable for this client. la4 Intake: Outcome: 15:46 Decision to Hospitalize by Provider. melchor 20:09 Admitted to Med/surg accompanied by family kelsea with patient, via stretcher, Report la4 called to Gurdeep JANG 20:09 Condition: stable 20:09 Instructed on the need for admit, plan of care 20:38 Patient left the ED. nw1 Signatures: Dispatcher [employer] Unruly Mandujano MD MD cha Rivera, Isabela, Reg Reg mr Cerda, Parisa, RN RN aa5 Nazanin Anderson, RN RN ap3 Parviz Wise, RN RN as6 Celestino Monique, RN RN la4 Sury Russell, RN RN nw1 Corrections: (The following items were deleted from the chart) 15:23 14:35 Cardiovascular: Heart tones S1 S2 present Rhythm is aa5 aa5 15:23 14:35 Neuro: Level of Consciousness is awake, alert, obeys commands, Oriented to aa5 person, place, time, situation, Pt seems forgetful, pt states "I guess I am a little forgetful today" . Garnetter are equal bilaterally Moves all extremities. Speech is normal, Facial symmetry appears normal, Pupils are PERRLA, aa5 16:03 15:25 BP 232 / 96; Pulse 61bpm; Resp 16bpm; Spontaneous; Pulse Ox 98% RA; aa5 aa5 16:41 16:34 BP 199 / 86; Pulse 68bpm; Pulse Ox 95% RA; aa5 aa5
--- NOTE | 2023-07-07 15:46 | EDPHYS ---
Physician Documentation [facility] Name: Neela Staton Age: 78 yrs Sex: Female : 1945 Arrival Date: 07/07/2023 Time: 13:59 Bed 6 Private MD: James Linda C ED Physician Unruly Veras HPI: 07/07 14:36 This 78 yrs old Female presents to ER via Wheelchair with complaints of High melchor Blood Pressure. 14:36 The patient has elevated blood pressure and discovered this at [facility]. Onset: The symptoms/episode began/occurred at an unknown time. Modifying factors: The symptoms are aggravated by activity, The symptoms are alleviated by remaining still. Associated signs and symptoms: Pertinent positives: headache. Severity of symptoms: At its worst the blood pressure was moderate, in the emergency department the blood pressure is unchanged. The patient has not experienced similar symptoms in the past. Historical: - Allergies: 14:16 Codeine; ap3 - Home Meds: 15:27 Aspirin Oral once [Active]; Cymbalta 60 mg oral capsule,delayed release (e.c.) 2 times aa5 per day [Active]; levothyroxine 100 mcg oral capsule once [Active]; Furosemide 60mg Oral 2 times per day for edema [Active]; magnesium oxide 400 mg magnesium Oral tablet 2 times per day [Active]; Brilinta 90 mg oral tablet 2 times per day [Active]; sertraline 25 mg oral tablet once [Active]; lisinopril 20 mg Oral tablet once [Active]; atorvastatin 80 mg oral tablet every day at bedtime [Active]; ezetimibe 10 mg oral tablet once [Active]; famotidine 20 mg Oral tablet [Active]; omeprazole 40 mg Oral capsule,delayed release (e.c.) once [Active]; Trelegy Ellipta 100-62.5-25 mcg inhalation Blister, With Inhalation Device once [Active]; calcitonin (salmon) 200 unit/actuation intranasal spray, non-aerosol once [Active]; Dulera 200-5 mcg/actuation inhalation HFA Aerosol Inhaler 2 puffs 2 times per day [Active]; 16:02 carvedilol 6.25 mg oral tablet 2 times per day [Active]; aa5 20:10 amiodarone 200 mg Oral tab once daily [Active]; amlodipine 5 mg tab once daily la4 [Active]; aspirin 81 mg Oral cap once daily [Active]; furosemide 60 mg Oral tab 2 times per day [Active]; midodrine 5 mg Oral tab 3 times per day [Active]; Nexium Oral once daily [Active]; potassium chloride 20 mEq Oral TbER 2 times per day [Active]; Xanax 0.25 mg Oral tab nightly [Active]; - PMHx: 14:16 Atrial fibrillation; Depression; GERD; High Cholesterol; Hypertensive disorder; ap3 Hypothyroidism; Myocardial infarction; neuropathy; - PSHx: 20:10 back sx; Cholecystectomy; Total abdominal hysterectomy; watchman; la4 - Immunization history:: Client reports having NOT received the Covid vaccine. - Social history:: Smoking status: Patient denies any tobacco usage or history of. ROS: 14:38 Constitutional: Negative for fever, chills, and weight loss, Eyes: Negative for injury, melchor pain, redness, and discharge, ENT: Negative for injury, pain, and discharge, Neck: Negative for injury, pain, and swelling, Cardiovascular: Negative for chest pain, palpitations, and edema, Respiratory: Negative for shortness of breath, cough, wheezing, and pleuritic chest pain, Abdomen/GI: Negative for abdominal pain, nausea, vomiting, diarrhea, and constipation, Back: Negative for injury and pain, : Negative for injury, bleeding, discharge, and swelling, MS/Extremity: Negative for injury and deformity, Skin: Negative for injury, rash, and discoloration, Psych: Negative for depression, anxiety, suicide ideation, homicidal ideation, and hallucinations, Allergy/Immunology: Negative for hives, rash, and allergies, Endocrine: Negative for neck swelling, polydipsia, polyuria, polyphagia, and marked weight changes, Hematologic/Lymphatic: Negative for swollen nodes, abnormal bleeding, and unusual bruising, 14:38 Neuro: Positive for headache, weakness, Exam: 14:38 Constitutional: This is a well developed, well nourished patient who is awake, alert, melchor and in no acute distress. Head/Face: Normocephalic, atraumatic. Eyes: Pupils equal round and reactive to light, extra-ocular motions intact. Lids and lashes normal. Conjunctiva and sclera are non-icteric and not injected. Cornea within normal limits. Periorbital areas with no swelling, redness, or edema. ENT: Nares patent. No nasal discharge, no septal abnormalities noted. Tympanic membranes are normal and external auditory canals are clear. Oropharynx with no redness, swelling, or masses, exudates, or evidence of obstruction, uvula midline. Mucous membranes moist. Neck: Trachea midline, no thyromegaly or masses palpated, and no cervical lymphadenopathy. Supple, full range of motion without nuchal rigidity, or vertebral point tenderness. No Meningismus. Chest/axilla: Normal chest wall appearance and motion. Nontender with no deformity. No lesions are appreciated. Cardiovascular: Regular rate and rhythm with a normal S1 and S2. No gallops, murmurs, or rubs. Normal PMI, no JVD. No pulse deficits. Respiratory: Lungs have equal breath sounds bilaterally, clear to auscultation and percussion. No rales, rhonchi or wheezes noted. No increased work of breathing, no retractions or nasal flaring. Abdomen/GI: Soft, non-tender, with normal bowel sounds. No distension or tympany. No guarding or rebound. No evidence of tenderness throughout. Back: No spinal tenderness. No costovertebral tenderness. Full range of motion. Female : Normal external genitalia. Skin: Warm, dry with normal turgor. Normal color with no rashes, no lesions, and no evidence of cellulitis. MS/ Extremity: Pulses equal, no cyanosis. Neurovascular intact. Full, normal range of motion. Neuro: Awake and alert, GCS 15, oriented to person, place, time, and situation. Cranial nerves II-XII grossly intact. Motor strength 5/5 in all extremities. Sensory grossly intact. Cerebellar exam normal. Normal gait. Psych: Awake, alert, with orientation to person, place and time. Behavior, mood, and affect are within normal limits. 15:57 ECG was reviewed by the Attending Physician. melchor Vital Signs: 14:17 Pulse 73; Resp 18; Temp 98.8; Pulse Ox 98% ; Weight 65.32 kg; ap3 14:28 BP 260 / 133; ap3 14:41 BP 229 / 113; aa5 15:25 BP 232 / 96; Pulse 61; Resp 16 S; Pulse Ox 98% on R/A; aa5 15:40 Pulse 58; aa5 15:41 BP 200 / 127; Pulse 59; Resp 18 S; Pulse Ox 98% on R/A; aa5 16:00 BP 220 / 101; Pulse 60; Resp 19 S; Pulse Ox 99% on R/A; aa5 16:14 BP 202 / 117; Pulse 67; Resp 16 S; Pulse Ox 97% on R/A; aa5 16:34 BP 199 / 86; Pulse 68; Pulse Ox 95% on R/A; aa5 16:47 BP 204 / 79; Pulse 65; Resp 16 S; Pulse Ox 97% on R/A; aa5 17:11 BP 173 / 115; Pulse 67; Resp 16 S; Pulse Ox 97% on R/A; aa5 17:30 BP 195 / 99; Pulse 69; Resp 16 S; Pulse Ox 98% on R/A; aa5 18:15 BP 213 / 73; Pulse 65; Resp 18 S; Temp 97.8(TE); Pulse Ox 97% on R/A; aa5 18:45 BP 213 / 83; Pulse 68; Resp 17 S; Pulse Ox 97% on R/A; aa5 19:12 BP 195 / 98; Pulse 66; Pulse Ox 97% ; la4 19:45 BP 185 / 91; Pulse 67 MON; Resp 18 S; Temp 98.3(O); Pulse Ox 98% on R/A; Pain 0/10; la4 19:45 Pain Scale: Adult la4 15:25 MD notified of current BP aa5 15:40 MD notified of bradycardia. aa5 16:34 MD notified of updated BP reading. Annie mario currently on hold per MD VO. aa5 18:15 Dr. Linda notified of elevated BP. aa5 Homero Coma Score: 19:45 Eye Response: spontaneous(4). Motor Response: obeys commands(6). Verbal Response: la4 oriented(5). Total: 15. MDM: 14:14 Patient medically screened. melchor 14:39 Differential diagnosis: hypertensive crisis, Malignant HTN, CVA, intracerebral melchor hemorrhage. Differential Diagnosis altered mental status. Data reviewed: vital signs, nurses notes, lab test result(s), EKG, radiologic studies, CT scan, plain films. Consideration of Admission/Observation Patient was admitted/placed on observation. Escalation of care including admission/observation considered. I considered the following discharge prescriptions or medication management in the emergency department Medications were administered in the Emergency Department. See MAR. Independent interpretation of the following test(s) in the Emergency Department EKG: See my EKG interpretation above. Test considered but Not performed: MRI: no mri brain. Care significantly affected by the following chronic conditions: Hypertension, high cholesterol, depression, a fib. Counseling: I had a detailed discussion with the patient and/or guardian regarding the historical points, exam findings, and any diagnostic results supporting the discharge/admit diagnosis, the presence of at least one elevated blood pressure reading (>120/80) during this emergency department visit, lab results, radiology results, the need for further work-up and treatment in the hospital. 07/07 14:14 Order name: Basic Metabolic Panel; Complete Time: 15:34 [facility] 07/07 14:14 Order name: CBC with Diff; Complete Time: 15:34 [facility] 07/07 14:14 Order name: LFT's; Complete Time: 15:34 [facility] 07/07 14:14 Order name: Magnesium; Complete Time: 15:34 [facility] 07/07 14:14 Order name: NT PRO-BNP; Complete Time: 15:34 [facility] 07/07 14:14 Order name: PT-INR; Complete Time: 15:34 [facility] 07/07 14:14 Order name: Troponin HS; Complete Time: 15:34 [facility] 07/07 14:14 Order name: Urinalysis w/ reflexes [facility] 07/07 20:06 Order name: Potassium [facility] 07/07 20:06 Order name: Troponin High Sensitivity [facility] 07/07 14:14 Order name: XRAY Chest (1 view); Complete Time: 17:38 [facility] 07/07 14:34 Order name: CT Head Brain wo Cont; Complete Time: 17:38 melchor 07/07 14:14 Order name: EKG; Complete Time: 14:15 07/07 15:52 Order name: CONS Physician Consult [facility] 07/07 14:14 Order name: Cardiac monitoring; Complete Time: 14:28 melchor 07/07 14:14 Order name: EKG - Nurse/Tech; Complete Time: 15:12 melchor 07/07 14:14 Order name: IV Saline Lock; Complete Time: 14:41 07/07 14:14 Order name: Labs collected and sent; Complete Time: 14:41 [facility] 07/07 14:14 Order name: O2 Per Protocol; Complete Time: 14: [facility] 07/07 14:14 Order name: O2 Sat Monitoring; Complete Time: : [facility] EC:57 Rate is 66 beats/min. Rhythm is regular. QRS [place] is Normal. MI interval is normal. QRS melchor interval is normal. QT interval is prolonged at 471 msec. No Q waves. T waves are Normal. No ST changes noted. Clinical impression: NSR w/ Non-specific ST/T Changes and No evidence of ischemia. Interpreted by me. Reviewed by me. Administered Medications: 15:37 Discontinued: [id number] mg IV at per protocol once over 2 mins melchor 15:08 Drug: Norvasc PO 10 mg PO once Route: PO; aa5 16:00 Follow up: Response: No adverse reaction aa5 15:08 Drug: Labetalol PO 100 mg PO once Route: PO; aa5 16:00 Follow up: Response: No adverse reaction aa5 15:10 Drug: Labetalol IV 20 mg IV at per protocol once over 2 mins Route: IV; Rate: per aa5 protocol; Infused Over: 2 mins; Site: right forearm; 15:39 Follow up: IV Status: Completed infusion aa5 15:12 Drug: NS 0.9% IV 1000 ml IV at 125 ml/hr continuous Route: IV; Rate: 125 ml/hr; Site: [facility] left forearm; 18:59 Follow up: IV fluids now infusing to L FA aa5 15:36 CANCELLED (Duplicate Order): [id number] mg IV at per protocol once over 2 mins melchor 15:50 Drug: Aspirin PO Chewable Tablet 81 mg PO once Route: PO; aa5 17:00 Follow up: Response: No adverse reaction aa5 15:50 Drug: Enalaprilat IV 2.5 mg IV at per protocol once; (slow IV push) Route: IV; Rate: aa5 per protocol; Site: right forearm; 16:00 Follow up: Response: No adverse reaction aa5 15:50 Drug: Enalapril PO 5 mg PO once Route: PO; aa5 17:30 Follow up: Response: No adverse reaction; Blood pressure is lowered aa5 16:01 Not Given (Physician Discretion; HR 58bpm): [id number] mg IV at per protocol once aa5 16:01 Not Given (Physician Discretion; HR 58bpmm): [id number] mg IV at per protocol once aa5 16:39 Not Given (bp improved ): nicardipine5 mg/hr IV at per protocol See Administration melchor Instructions; (Standard concentration 25 mg / 250 mL NS); Recommended max rate 15 mg/hr; Titrate 2.5 mg/hr as often as every 15 minutes to achieve goal (see titration policy); Goal parameter SBP less than 160 mmHg 18:30 Drug: cloNIDine PO 0.1 mg PO once Route: PO; aa5 18:59 Follow up: Response: No adverse reaction aa5 Disposition Summary: 07/07/23 15:46 Hospitalization Ordered Notes: Hospitalization Status: Inpatient Admission melchor Provider: James Linda melchor Condition: Fair melchor Problem: new melchor Symptoms: have improved melchor Bed/Room Type: Standard melchor Location: Telemetry/MedSurg (Inpatient)(07/07/23 16:39) melchor Room Assignment: [facility](07/07/23 19:49) Diagnosis - Headache melchor - Essential (primary) hypertension melchor - Non ST elevation AL melchor - Hypokalemia melchor Forms: - Medication Reconciliation Form melchor - SBAR form melchor - Leadership Thank You Letter melchor Signatures: Dispatcher [employer] EDMS Eden Hamlin bd Alicia Brown RN Unruly Nguyễn MD MD cha Williams, Irene RN Parisa Rosado RN RN aa5 Mimi Osorio RN RN ss Prokisch, Amanda, RN RN ap3 Celestino Moniuqe RN RN la4 Corrections: (The following items were deleted from the chart) 15:36 15:34 Labetalol IV 20 mg IV at per protocol once over 2 mins ordered. melchor melchor 16:09 15:46 melchor bd 16:15 15:46 Telemetry/MedSurg (Inpatient) melchor iw 16:15 16:09 203 bd iw 16:16 16:15 [facility] ER HOLD iw melchor 16:16 16:15 ERHOLD- iw melchor 16:39 16:16 Intensive Care Unit melchor melchor 16:39 16:16 melchor melchor 19:49 16:39 melchor
--- NOTE | 2023-07-07 15:50 | RAD REPORT ---
EXAM DESCRIPTION: CT - Head Brain Wo Cont - 07/07/2023 2:55 pm CLINICAL HISTORY: HEADACHE COMPARISON: Head Brain Wo Cont dated 12/06/2022; Head Brain Wo Cont dated 11/07/2021 TECHNIQUE: Noncontrast head CT images were obtained without IV contrast. Multiplanar reformats were generated and reviewed. All CT scans are performed using dose optimization technique as appropriate and may include automated exposure control or mA/KV adjustment according to patient size. FINDINGS: No intracranial hemorrhage, mass, or edema. Midline structures are unremarkable. Stable ventricular caliber with diffuse parenchymal volume loss. Triangular focus of near CSF density in the left subinsular region, stable, suggestive of a remote in farct. Patchy periventricular and deep white matter hypoattenuation, stable in extent, nonspecific, m ost suggestive of chronic small vessel ischemic changes Baptiste-white matter differentiation is otherwise preserved, without evidence of acute infarct. No abnor mal extra-axial fluid collections. Mastoid air cells are well aerated. Mucous retention cysts in the maxillary sinuses bilaterally. No acute bony findings. IMPRESSION: No evidence of an acute intracranial process. Stable chronic findings as above.
[2023-07-07] MEDS ORDERED: ASPIRIN 81 MG CHEWABLE TABLET ONE (15:59)
[2023-07-07] MEDS ORDERED: ENALAPRILAT 1.25 MG/ML VIAL IV ONE (16:00)
[2023-07-07] MEDS ORDERED: ENALAPRIL 10 MG TAB ONE (16:00)
--- NOTE | 2023-07-07 16:41 | RAD REPORT ---
EXAM DESCRIPTION: RADChest Single View07/07/2023 2:52 pm CLINICAL HISTORY: COUGH COMPARISON: Chest Single View dated 03/16/2023; Chest Single View dated 12/06/2022; Chest Single View d ated 12/02/2022; Chest Single View dated 09/22/2022 TECHNIQUE: Portable AP view of the chest. FINDINGS: The lungs are clear. Stable chronic interstitial changes which may relate to COPD. Stable tortuosity the thoracic aorta. No pneumothorax or effusion. The cardiomediastinal contours are unrema rkable. IMPRESSION: No acute cardiopulmonary process.
[2023-07-07] MEDS ORDERED: cloNIDine HCL 0.1 MG TAB ONE (18:43)
[2023-07-07] MEDS ORDERED: ACETAMINOPHEN 500 MG TAB PO PRN (19:07)
[2023-07-07 20:04] LABS: Potassium 3.1 mEq/L (3.5-5.1)
[2023-07-07 20:06] LABS: Troponin High Sensitivity 706.8 pg/mL (<58.9)
[2023-07-07] MEDS ORDERED: ENALAPRIL 10 MG TAB PO SCH (21:00)
[2023-07-07] MEDS ORDERED: FAMOTIDINE 20 MG/2 ML VIAL IV SCH (21:00)
[2023-07-07] MEDS ORDERED: LABETALOL HCL 100 MG TAB PO SCH (21:00)
[2023-07-07] MEDS: ATORVASTATIN 80 MG TAB PO SCH (22:05)
[2023-07-07] MEDS: TICAGRELOR 90 MG TABLET PO SCH (22:05)
[2023-07-07] MEDS: POTASSIUM 25 MEQ EFFERV TAB PO SCH (22:05)
[2023-07-07] MEDS: FAMOTIDINE 20 MG TAB PO SCH (22:05)
[2023-07-07] MEDS: lisinopriL 20 MG TAB PO SCH (22:05)
[2023-07-07] MEDS: MORPHINE 4 MG/ML SYR IV PRN (23:54)
[2023-07-07] MEDS: ONDANSETRON 4 MG/2 ML VIAL IV PRN (23:54)
[2023-07-08 03:22] LABS: Absolute Lymphocytes (CBC) 0.9 K/uL (0.7-4.9); Hematocrit 34.9 % (36.0-45.0); Lymphocytes % 8.4 % (15.3-44.8); MCV 90.5 fL (80-100); MPV 8.3 fL (7.6-11.3); Platelets 181 thou/uL (152-406); RBC Red Blood Cell Count 3.86 M/uL (3.86-4.86)
[2023-07-08 03:34] LABS: Potassium 3.8 mEq/L (3.5-5.1)
--- NOTE | 2023-07-08 04:42 | HP ---
Date of Admission: 07/07/2023 Chief Complaint: High blood pressure and headaches. History Of Present Illness: This is a 78-year-old very pleasant female patient who was doing fine in her normal usual state of health and today she went for her outpatient physical therapy and after about 6 minutes of exercise, her blood pressure was checked and it was 210/110, so her therapy was discontinued and she was sent over to the emergency room. After she came to ER, her blood pressure was noted to be elevated, but she also was complaining of having headache. She never had any chest pain or shortness of breath. Further workup was done in the emergency room and she was admitted to the hospital and she received multiple medications in the emergency room for high blood pressure and when I saw her, her systolic blood pressure was still around 210 systolic. Clonidine 0.1 mg p.o. x1 dose was ordered at that time when I saw her. Her daughter was present with her at bedside. Allergies: TO CODEINE. Review of Systems: STUDY MANAGER: As mentioned above. Cardiovascular: As mentioned above. All other systems reviewed and negative. Medications: List reviewed. Past Medical History: Significant for hypothyroidism, COPD, hypertension, hyperlipidemia, coronary artery disease, paroxysmal atrial fibrillation, aortic atherosclerosis, peripheral vascular disease, gastroesophageal reflux disease, kidney stone, osteoarthritis at multiple sites, anemia, anxiety, hypokalemia, insomnia, hypomagnesemia. Past Surgical History: Coronary artery stent placement on December 18, 2021, Watchman's procedure on november 20, [address] Domingo, right leg stent placement May 2021, left leg stent placement 2000, cholecystectomy, hysterectomy, back surgery, cervical spine surgery. Family History: Father had heart disease. Mother had diabetes. Social History: Prior history of smoking, alcohol use negative. Physical Examination: Vital Signs: Height 5 feet 7 inches, weight 144 pounds, temperature 98.4, pulse 65, respiratory rate 16, blood pressure 175/77, oxygen saturation 96%. General: Awake, alert, oriented, not in distress. HEENT: Head atraumatic, normocephalic. Conjunctivae nonerythematous. Sclerae white. Mouth, no thrush or edema noted. Ears/Nose, no mass, lesion, discharge noted. Neck: Supple. No JVD, lymph nodes, bruit, thyromegaly noted. Lungs: Bilateral good equal air entry. Clear to auscultation. No rhonchi. No rales. Heart: Normal heart sounds, no murmur or gallop. Abdomen: Soft, bowel sounds normal. No guarding, rigidity, tenderness, mass, hepatosplenomegaly, distention, or bruit noted. Extremities: No leg edema. No calf tenderness. Skin: No rash, ulcer, cellulitis. Lymphatics: No lymph node enlargement in neck, supraclavicular, infraclavicular region. Neuro: No focal neurological deficit. Chest: Unremarkable. External Genitalia: Deferred. Rectal: Deferred. Laboratory Data: White count 7.5, hemoglobin 13, platelets 199. Sodium 139, potassium 3.3, chloride 106, bicarb 28, BUN 13, creatinine 0.86, glucose 96. Liver function tests, AST 61, ALT 57, alkaline phosphatase 171. Troponin 707, and proBNP 6298. Chest x-ray was unremarkable. No acute changes. CAT scan of the head, no acute intracranial changes. Impression: 1. Non ST-segment elevation myocardial infarction. 2. Coronary artery disease. 3. Hypertension. 4. Hyperlipidemia. 5. Abnormal liver function test. 6. Hypokalemia. 7. Peripheral vascular disease. 8. Insomnia. 9. Depression. 10. Chronic obstructive pulmonary disease. 11. Hypothyroidism. 12. Gastroesophageal reflux disease. 13. Atrial fibrillation. Plan: We will go ahead and admit the patient to hospital for further evaluation and management of this problem. The patient is appropriate for inpatient and is expected to spend 2 midnights in hospital. We will consult Cardiology for coronary artery disease and non-STEMI problem. For blood pressure, she will receive multiple antihypertensive medications in emergency room. I have started her on clonidine. We will monitor her blood pressure. Continue home medications per order and adjust antihypertensive medication as it becomes necessary. For her hyperlipidemia, we will go ahead and continue her statin therapy per order. Hypothyroidism will be managed with continuation of her levothyroxine. We will continue her medication for gastroesophageal reflux disease. No need for further intervention on it. Details and plan of treatment discussed with her and her daughter who was at bedside and I will see her tomorrow morning for followup. LUIS/MODL Voice ID: [id number] MTDD
[2023-07-08] MEDS: MORPHINE 4 MG/ML SYR IV PRN ×2 (05:28→11:12)
[2023-07-08] MEDS: ONDANSETRON 4 MG/2 ML VIAL IV PRN (05:28)
[2023-07-08] MEDS: PANTOPRAZOLE 40MG TABLET PO SCH (05:29)
[2023-07-08] MEDS: LEVOTHYROXINE SOD 0.1 MG TAB PO SCH (05:29)
[2023-07-08] MEDS ORDERED: INFLUENZA VACCINE (for 6+ mo) 0.5 ML DOSE IMVAC ONE (08:00)
[2023-07-08] MEDS: MAGNESIUM OXIDE 400 MG TAB PO SCH ×2 (09:00→20:52)
[2023-07-08] MEDS: carvediloL 12.5 MG TAB PO SCH ×2 (09:08→16:22)
[2023-07-08] MEDS: SERTRALINE HCL 50 MG TAB PO SCH (09:08)
[2023-07-08] MEDS: TICAGRELOR 90 MG TABLET PO SCH ×2 (09:08→20:51)
[2023-07-08] MEDS: FUROSEMIDE 40 MG TABLET PO SCH (09:08)
[2023-07-08] MEDS: DULOXETINE 30 MG CAP PO SCH (09:10)
[2023-07-08] MEDS: POTASSIUM 25 MEQ EFFERV TAB PO SCH ×2 (09:10→20:51)
[2023-07-08] MEDS: ASPIRIN EC 81 MG TAB PO SCH (09:11)
[2023-07-08] MEDS: lisinopriL 20 MG TAB PO SCH ×2 (09:11→20:52)
[2023-07-08] MEDS: DULERA 200/5 (MOMETASONE/FORMOTEROL) INHALER IH SCH ×2 (11:14→20:50)
[2023-07-08] MEDS: cloNIDine HCL 0.1 MG TAB PO PRN ×2 (11:45→23:45)
[2023-07-08] MEDS: ALPRAZOLAM 0.25 MG TABLET PO PRN ×2 (11:45→20:52)
--- NOTE | 2023-07-08 13:34 | ECHO ---
HEIGHT: ft in WEIGHT: lb oz DATE OF STUDY: 07/08/[address]: Unruly Veras MD 2-DIMENSIONAL: YES M.MODE: YES DOPPLER: YES COLOR FLOW: YES TDS: PORTABLE: YES DEFINITY: BUBBLE STUDY: DIAGNOSIS: CHEST PAIN, NON ST ELEVATION MYOCARDIAL INFARCTION CARDIAC HISTORY: CATHERIZATION: YES SURGERY: NO PROSTHETIC VALVE: NO PACEMAKER: NO MEASUREMENTS (cm) DIASTOLIC (NORMALS) SYSTOLIC (NORMALS) IVSd 1.2 (0.6-1.2) LA Diam 4.0 (1.9-4.0) LVEF 59% LVIDd 3.4 (3.5-5.7) LVIDs 2.4 (2.0-3.5) %FS 30% LVPWd 1.2 (0.6-1.2) Ao Diam 2.9 (2.0-3.7) 2 DIMENSIONAL ASSESSMENT: RIGHT ATRIUM: NORMAL LEFT ATRIUM: ENLARGED RIGHT VENTRICLE: NORMAL LEFT VENTRICLE: LEFT VENTRICULAR HYPERTROPHY TRICUSPID VALVE: MILD TRICUSPID REGURGITATION MITRAL VALVE: MILD MITRAL REGURGITATION PULMONIC VALVE: NORMAL AORTIC VALVE: NORMAL PERICARDIAL EFFUSION: NONE AORTIC ROOT: NORMAL LEFT VENTRICULAR WALL MOTION: NORMAL DOPPLER/COLOR FLOW: SEE BELOW COMMENTS: 1. NORMAL LEFT VENTRICULAR EJECTION FRACTION 55-60% 2. NORMAL WALL MOTION 3. MODERATE DIASTOLIC DYSFUNCTION 4. LEFT ATRIAL ENLARGEMENT 5. SEVERE PULMONARY HYPERTENSION WITH RIGHT VENTRICULAR SYSTOLIC PRESSURE GREATER THAN 60 mmHg TECHNOLOGIST: EVENS ZAVALA
[2023-07-08] MEDS: ATORVASTATIN 80 MG TAB PO SCH (20:51)
[2023-07-08] MEDS: FAMOTIDINE 20 MG TAB PO SCH (20:52)
[2023-07-09] MEDS: LEVOTHYROXINE SOD 0.1 MG TAB PO SCH (05:40)
[2023-07-09] MEDS: PANTOPRAZOLE 40MG TABLET PO SCH (05:40)
--- NOTE | 2023-07-09 08:07 | PN ---
Date of Progress Note: 07/08/2023 Subjective: The patient was seen this morning for followup. She was lying in bed. Denies any heada lisa, chest pain, shortness of breath. No nausea, vomiting. She did not sleep well last night and wa s requesting some medication to help her sleep tonight. Objective: Vital Signs: Reviewed. HEENT: Unremarkable. Lungs: Clear to auscultation. Heart: Sounds normal. Abdomen: Soft. Bowel sounds normal. No guarding, rigidity, tenderness, distention. Extremities: No leg edema. Laboratory Data: White count 11, hemoglobin 11.8, platelets 181. Sodium 139, potassium 3.8, chlorid e 107, bicarb 30, BUN 12, creatinine 0.77, glucose 113. Impression: 1.Fke-AF-wwghnrpmy myocardial infarction. 2.Hypertension, uncontrolled. 3.Anemia. 4.Coronary artery disease. 5.Hyperlipidemia. Plan: We will go ahead and continue current statin therapy. Continue current antihypertensive medic ation. Today, blood pressure was high again and clonidine was ordered for p.r.n. use. We will follo w up with pail bailer. Alprazolam 0.25 mg at bedtime for p.r.n. use was ordered for insomnia. LUIS/MODL Voice ID: [id number] Report ID: [id number]
[2023-07-09] MEDS: FUROSEMIDE 40 MG TABLET PO SCH (08:59)
[2023-07-09] MEDS: TICAGRELOR 90 MG TABLET PO SCH (08:59)
[2023-07-09] MEDS: POTASSIUM 25 MEQ EFFERV TAB PO SCH (08:59)
[2023-07-09] MEDS: lisinopriL 20 MG TAB PO SCH (09:00)
[2023-07-09] MEDS: carvediloL 12.5 MG TAB PO SCH (09:00)
[2023-07-09] MEDS: MAGNESIUM OXIDE 400 MG TAB PO SCH (09:00)
[2023-07-09] MEDS: DULOXETINE 30 MG CAP PO SCH (09:01)
[2023-07-09] MEDS: SERTRALINE HCL 50 MG TAB PO SCH (09:01)
[2023-07-09] MEDS: DULERA 200/5 (MOMETASONE/FORMOTEROL) INHALER IH SCH (09:02)
[2023-07-09] MEDS: ASPIRIN EC 81 MG TAB PO SCH (09:02)
[2023-07-09] MEDS: cloNIDine HCL 0.1 MG TAB PO PRN (10:26)
[2023-07-09 15:18] VITALS: BP 140/71; TEMP 98.5; O2SAT 96; BMI 22.5
--- NOTE | 2023-07-10 01:34 | DS ---
Date of Discharge: 07/09/2023 Disposition: Discharged to go home. Physical Examination: HEENT: Unremarkable. Lungs: Clear to auscultation. Heart: Sounds normal. Abdomen: Soft. Bowel sounds normal. No guarding, rigidity, tenderness, distention. Extremities: No leg edema. Laboratory Data: Upon admission on 07/07/2023, white count was 7.5, hemoglobin 13, platelets 199. Y esterday, white count 11, hemoglobin 11.8, platelets 181. Upon admission, sodium 139, potassium 3.3, chloride 106, bicarb 28, BUN 13, creatinine 0.86, glucose 96. Liver function tests; AST 61, ALT 57, alkaline phosphatase 171. Initial troponin 707 and repeat troponin was 706. Yesterday chemistry; s odium 139, potassium 3.8, chloride 107, bicarb 30, BUN 12, creatinine 0.77, glucose 113. Echocardiog venancio shows ejection fraction 59%, severe pulmonary hypertension, moderate diastolic dysfunction. Norm al left ventricular wall motion. Hospital Course: A 78-year-old pleasant female patient came into emergency room with complaints of h igh blood pressure and headache. Please see dictated H and P for more information. After the patien sea was evaluated in the ER, she was admitted to the hospital. Cardiology consultation was requested f james Domingo. The patient's overall condition remained stable. She did not have any chest pain. We continued her home medication, adjusted her antihypertensive medication and overall her condition has remained stable. This morning, she was feeling much better. Blood pressure was normal and I did communicate with flanging roll operator and he did not have any further recommendation at this point and he sanchez s released her to go home from cardiac point of view. Medically, she is stable for discharge. Final Diagnoses: 1.Aqo-EF-nvhlhldem myocardial infarction. 2.Hypertension. 3.Hypokalemia. 4.Anemia, unspecified. 5.Coronary artery disease. 6.Hyperlipidemia. 7.Abnormal liver function tests. 8.Peripheral vascular disease. 9.Insomnia. 10.Depression. 11.Chronic obstructive pulmonary disease. 12.Hypothyroidism. 13.Gastroesophageal reflux disease. 14.Paroxysmal atrial fibrillation. Discharge Medications And Instructions: Continue all prior home medications except following changes : 1.Stop carvedilol 6.25 mg dose and start carvedilol 12.5 mg 2 times a day. 2.Start amlodipine 5 mg 2 times a day. 3.Start clonidine 0.1 mg 3 times a day as needed for systolic blood pressure higher than 160. 4.Follow up at my office next week. LUIS/STEPHANI Voice ID: [id number] Report ID: [id number]
--- NOTE | 2023-07-10 15:50 | EKG ---
Test Date: 2023-07-07 Test Time: 15:12:41 Molder Offbearer: JAYLAN MEASUREMENT RESULTS: Intervals: Rate: 66 NV: 150 QRSD: 76 QT: 450 QTc: 471 [place]: P: 62 NV: 150 QRS: 31 T: 106 INTERPRETIVE STATEMENTS: Normal sinus rhythm with sinus arrhythmia Nonspecific ST and T wave abnormality Prolonged QT Abnormal ECG Compared to ECG 03/16/2023 13:55:30 No significant changes Electronically Signed On 07-10-23 15:44:16 CDT by Ortiz Domingo
== END 2023-07-09 15:10 | disposition home or self-care (01) | DRG 282 ==
LOC: ER 13:59 → ERHOLD 15:47 → 2ND 20:10
PROVIDERS: ADMIT Internal Medicine; ATTEND Internal Medicine
DX: I21.4 Non-ST elevation (NSTEMI) myocardial infarction (principal); I10 Essential (primary) hypertension; E03.9 Hypothyroidism, unspecified; E87.6 Hypokalemia; I73.9 Peripheral vascular disease, unspecified; I48.0 Paroxysmal atrial fibrillation; M19.09 Primary osteoarthritis, other specified site; G47.00 Insomnia, unspecified; F32.A Depression, unspecified; D64.9 Anemia, unspecified; E78.00 Pure hypercholesterolemia, unspecified; K21.9 Gastro-esophageal reflux disease without esophagitis; J44.9 Chronic obstructive pulmonary disease, unspecified; I27.20 Pulmonary hypertension, unspecified; I25.10 Atherosclerotic heart disease of native coronary artery without angina pectoris; I25.2 Old myocardial infarction; R94.5 Abnormal results of liver function studies; Z88.5 Allergy status to narcotic agent; Z95.5 Presence of coronary angioplasty implant and graft; Z79.82 Long term (current) use of aspirin; Z79.01 Long term (current) use of anticoagulants; Z90.49 Acquired absence of other specified parts of digestive tract; Z79.890 Hormone replacement therapy; Z79.899 Other long term (current) drug therapy; Z90.710 Acquired absence of both cervix and uterus; Z28.310 Unvaccinated for COVID-19
CPT/HCPCS: 36415; 70450; 71045; 80048; 80076; 83735; 83880; 84132; 84484; 85025; 85610; 93005; 93306; 96365; 96375; 99285; J2405; J3535; J7030

== ENCOUNTER 2023-11-13 13:30 | Inpatient (IN) | payer OTHER ==
--- NOTE | 2023-11-13 14:40 | RAD REPORT ---
EXAM DESCRIPTION: Maria C Single View3 2:26 pm CLINICAL HISTORY: Chest pain COMPARISON: 2022 FINDINGS: Mild bilateral social lung opacities. Heart is mildly enlarged IMPRESSION: These findings may indicate mild CHF
[2023-11-13] MEDS ORDERED: LEVALBUTEROL 1.25 MG/3 ML NEB ONE (14:43)
[2023-11-13 15:01] LABS: Protime INR 1.22
[2023-11-13 15:02] LABS: Absolute Basophils 0.1 K/uL (0-0.5); Absolute Lymphocytes (CBC) 0.9 K/uL (0.7-4.9); Basophils % 0.7 % (0-1.3); Hematocrit 32.4 % (36.0-45.0); Lymphocytes % 9.7 % (15.3-44.8); MCV 85.8 fL (80-100); MPV 7.8 fL (7.6-11.3); Platelets 279 thou/uL (152-406); RBC Red Blood Cell Count 3.78 M/uL (3.86-4.86)
[2023-11-13 15:32] LABS: Albumin 3.5 g/dL (3.4-5.0); Albumin/Globulin Ratio 0.7 (1.1-1.8); Anion Gap 7.6 mEq/L (5.0-15.0); Bilirubin Direct 0.3 mg/dL (0-0.2); Bilirubin Indirect, Calculated 0.4 mg/dL (0.2-0.8); Bilirubin Total 0.7 mg/dL (0.2-1.0); Magnesium 2.1 mg/dL (1.6-2.4); Potassium 4.6 mEq/L (3.5-5.1); Protein, Total 8.2 g/dL (6.4-8.2)
[2023-11-13 15:35] LABS: Troponin High Sensitivity 263.6 pg/mL (<58.9)
[2023-11-13 15:38] LABS: SARS-COV-2 RT PCR NEGATIVE (NEGATIVE)
--- NOTE | 2023-11-13 16:28 | ER ---
Nurse's Notes [facility] Name: Neela Staton Age: 78 yrs Sex: Female : 1945 Arrival Date: 11/13/2023 Time: 13:30 Bed 13 Private MD: James Linda C Diagnosis: Acute on chronic combined systolic (congestive) and diastolic (congestive) heart failure;COPD/ Chronic obstructive pulmonary disease with (acute) exacerbation Presentation: 11/12 13:58 Chief complaint: SOB, worse when supine x 4 days. Also c/o cough. Denies fever. hb Coronavirus screen: At this time, the client does not indicate any symptoms associated with coronavirus-19. Ebola Screen: No symptoms or risks identified at this time. Initial Sepsis Screen: Does the patient meet any 2 criteria? HR > 90 bpm. No. Patient's initial sepsis screen is negative. Does the patient have a suspected source of infection? No. Patient's initial sepsis screen is negative. Risk Assessment: Do you want to hurt yourself or someone else? Patient reports no desire to harm self or others. Onset of symptoms was November 10, 2023. 13:58 Method Of Arrival: Wheelchair hb 13:58 Acuity: BETHANY 3 hb Triage Assessment: 14:00 General: Appears in no apparent distress. Behavior is calm, cooperative. Pain: Denies hb pain. Neuro: Level of Consciousness is awake, alert, obeys commands, Oriented to person, place, time, situation. Cardiovascular: Patient's skin is warm and dry. Respiratory: Reports shortness of breath at rest cough that is non-productive, Respiratory effort is even, unlabored, Respiratory pattern is regular, symmetrical, Onset: The symptoms/episode began/occurred 4 days, the patient has moderate shortness of breath. Historical: - Allergies: 14:00 Codeine; hb - Home Meds: 14:13 diltiazem HCl 60 mg Oral tablet twice a day [Active]; Cymbalta 60 mg Oral capsule 2 hb times per day [Active]; Furosemide 60mg Oral 2 times per day for EDEMA [Active]; lisinopril 20 mg Oral tablet 2 times per day [Active]; magnesium oxide 400 mg magnesium oral capsule 2 times per day [Active]; carvedilol 6.25 mg oral tablet 2 times per day [Active]; amiodarone 200 mg Oral tab 2 times per day [Active]; sertraline 25 mg Oral tablet daily [Active]; aspirin 81 mg Oral cap once daily [Active]; levothyroxine 100 mcg capsule daily [Active]; omeprazole 40 mg Oral capsule daily [Active]; methscopolamine oral daily [Active]; clopidogrel oral daily [Active]; atorvastatin 80 mg oral tablet [Active]; famotidine 20 mg Oral tablet [Active]; Potassium Chloride Oral daily [Active]; trazodone 150 mg Oral tablet every day at bedtime [Active]; Trelegy Ellipta inhalation daily [Active]; Dulera 200-5 mcg/actuation inhalation HFA Aerosol Inhaler 2 times per day [Active]; calcitonin (salmon) 200 unit/actuation intranasal spray, non-aerosol daily [Active]; - PMHx: 14:00 Atrial fibrillation; GERD; Myocardial infarction; Depression; neuropathy; hb Hypothyroidism; Hypertensive disorder; High Cholesterol; - PSHx: 14:00 back sx; Cholecystectomy; Total abdominal hysterectomy; 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 - Social history:: Smoking status: Patient/guardian denies using tobacco. Screenin:39 [facility] ED Fall Risk Assessment (Adult) History of falling in the last 3 months, me1 including since admission No falls in past 3 months (0 pts) Confusion or Disorientation No (0 pts) Intoxicated or Sedated No (0 pts) Impaired Gait No (0 pts) Mobility Assist Device Used No (0 pt) Altered Elimination No (0 pt) Score/Fall Risk Level 0 - 2 = Low Risk Maintained a safe environment, Provided non-skid footwear, Hourly rounding (assess needs \T\ fall precautionary measures) done. Abuse screen: Denies threats or abuse. Nutritional screening: No deficits noted. Tuberculosis screening: No symptoms or risk factors identified. Assessment: 15:39 General: Appears ill, well groomed, well developed, well nourished, Behavior is calm, me1 cooperative, appropriate for age, Reports SOB, worse when supine x 4 days. Also c/o cough. Denies fever. Pain: Denies pain. Neuro: Level of Consciousness is awake, alert, obeys commands, Oriented to person, place, time, situation, Appropriate for age. Cardiovascular: Capillary refill < 3 seconds Patient's skin is warm and dry. Rhythm is atrial fibrillation. Respiratory: Airway is patent Trachea midline Respiratory effort is even, unlabored, Respiratory pattern is regular, symmetrical, Breath sounds are clear bilaterally. Respiratory: Reports shortness of breath at rest cough that is. GI:. Vital Signs: 13:58 BP 141 / 108; Pulse 105; Resp 20; Temp 97.4(TE); Pulse Ox 97% on R/A; Weight 72.12 kg; hb Height 5 ft. 7 in. ; Pain 0/10; 14:33 BP 147 / 101; Pulse 101; Resp 19; Pulse Ox 96% on R/A; me1 15:00 BP 156 / 99; Pulse 100; Resp 20; Pulse Ox 100% on R/A; me1 15:30 BP 142 / 101; Pulse 111; Resp 18; Pulse Ox 98% on R/A; me1 16:30 BP 138 / 53; Pulse 91; Resp 20; Pulse Ox 96% on R/A; me1 16:30 BP 114 / 51; Pulse 87; Resp 19; Pulse Ox 94% on R/A; me1 13:58 Body Mass Index 24.90 (72.12 kg, 170.18 cm) hb 13:58 Pain Scale: Adult hb ED Course: 13:32 Patient arrived in ED. mr 13:32 James Linda MD is Private Physician. mr 13:45 [facility]ph Gandara [facility] sb4 13:45 Alejandro Molina DO is Attending Physician. sb4 14:00 Triage completed. hb 14:00 Arm band placed on. hb 14:13 Sasha Hernandez, SUHAIL is Primary Nurse. me1 14:28 XRAY CXR (1 view) In Process Unspecified. EDMS 14:41 Inserted saline lock: 22 gauge in right antecubital area, using aseptic technique. me1 14:41 COVID-19/FLU A+B Sent. me1 14:41 BMP Sent. me1 14:41 Blood Culture Adult (2) Sent. me1 14:41 CBC with Diff Sent. me1 14:41 Hepatic Function Sent. me1 14:41 Lipase Sent. me1 14:41 Magnesium Sent. me1 14:41 NT PRO-BNP Sent. me1 14:41 PT-INR Sent. me1 14:41 Ptt, Activated Sent. me1 14:41 Troponin HS Sent. me1 15:39 Patient has correct armband on for positive identification. Bed in low position. Call me1 light in reach. Side rails up X2. Provided Education on: POC. Verbalized understanding. . 15:39 No provider procedures requiring assistance completed. me1 16:28 Kapil Ramirez MD is Hospitalizing Provider. sb4 17:41 Patient admitted, IV remains in place. me1 Administered Medications: 14:47 Drug: Levalbuterol Inhalation 1.25 mg Inhalation once Route: Inhalation; me1 15:45 Follow up: Response: No adverse reaction; Wheezing diminished me1 Medication: 15:39 VIS not applicable for this client. me1 Outcome: 16:28 Decision to Hospitalize by Provider. sb4 17:41 Admitted to Med/surg accompanied by tech, via wheelchair, room 207, with chart, Report me1 called to SUHAIL Mckeon 17:41 Condition: stable 17:41 Instructed on the need for admit, 18:21 Patient left the ED. me1 Signatures: Dispatcher [employer] EDNM Isabela Ruvalcaba, Reg Reg mr Elif Amado, RN RN Steph Manley, PA-C PA-C sb4 Sasha Hernandez, RN RN me1 Corrections: (The following items were deleted from the chart) 15:39 13:58 Chief complaint: SOB, worse when supine x 4 days. Also c/o cough. Denies fever. hbme1
--- NOTE | 2023-11-13 16:29 | EDPHYS ---
Physician Documentation [facility] Name: Neela Staton Age: 78 yrs Sex: Female : 1945 Arrival Date: 11/13/2023 Time: 13:30 Bed 13 Private MD: James Linda C ED Physician Alejandro Molina HPI: 11/12 14:05 This 78 yrs old Female presents to ER via Wheelchair with complaints of shortness of sb4 breath. 14:06 The patient has shortness of breath at rest. Onset: The symptoms/episode began/occurred sb4 3 day(s) ago. Duration: The symptoms are continuous. The patient's shortness of breath is aggravated by exertion, prone position, is alleviated by inhaler, rest. Associated signs and symptoms: Pertinent positives: non-productive cough. The patient has experienced similar episodes in the past, a few times. The patient has not recently seen a physician. Historical: - Allergies: 14:00 Codeine; hb - Home Meds: 14:13 diltiazem HCl 60 mg Oral tablet twice a day [Active]; Cymbalta 60 mg Oral capsule 2 hb times per day [Active]; Furosemide 60mg Oral 2 times per day for EDEMA [Active]; lisinopril 20 mg Oral tablet 2 times per day [Active]; magnesium oxide 400 mg magnesium oral capsule 2 times per day [Active]; carvedilol 6.25 mg oral tablet 2 times per day [Active]; amiodarone 200 mg Oral tab 2 times per day [Active]; sertraline 25 mg Oral tablet daily [Active]; aspirin 81 mg Oral cap once daily [Active]; levothyroxine 100 mcg capsule daily [Active]; omeprazole 40 mg Oral capsule daily [Active]; methscopolamine oral daily [Active]; clopidogrel oral daily [Active]; atorvastatin 80 mg oral tablet [Active]; famotidine 20 mg Oral tablet [Active]; Potassium Chloride Oral daily [Active]; trazodone 150 mg Oral tablet every day at bedtime [Active]; Trelegy Ellipta inhalation daily [Active]; Dulera 200-5 mcg/actuation inhalation HFA Aerosol Inhaler 2 times per day [Active]; calcitonin (salmon) 200 unit/actuation intranasal spray, non-aerosol daily [Active]; - PMHx: 14:00 Atrial fibrillation; GERD; Myocardial infarction; Depression; neuropathy; hb Hypothyroidism; Hypertensive disorder; High Cholesterol; - PSHx: 14:00 back sx; Cholecystectomy; Total abdominal hysterectomy; 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 - Social history:: Smoking status: Patient/guardian denies using tobacco. ROS: 14:07 Constitutional: Negative for fever, chills, and weight loss, sb4 14:07 Respiratory: Positive for cough, dyspnea on exertion, orthopnea, shortness of breath, wheezing, 14:07 All other systems are negative, Exam: 14:07 Constitutional: This is a well developed, well nourished patient who is awake, alert, sb4 and in no acute distress. Head/Face: Normocephalic, atraumatic. Eyes: Extra-ocular motions intact. Periorbital areas with no swelling, redness, or edema. ENT: Mucous membranes moist. Cardiovascular: Regular rate and rhythm with a normal S1 and S2. Respiratory: Lungs have equal breath sounds bilaterally, clear to auscultation and percussion. No rales, rhonchi or wheezes noted. No increased work of breathing, no retractions or nasal flaring. Abdomen/GI: Soft, non-tender, no distension. Back: No spinal tenderness. No costovertebral tenderness. Full range of motion. Skin: Warm, dry with normal turgor. Normal color with no rashes, no lesions, and no evidence of cellulitis. MS/ Extremity: Pulses equal, no cyanosis. Neurovascular intact. Full, normal range of motion. Neuro: Awake and alert, GCS 15, oriented to person, place, time, and situation. Motor strength 5/5 in all extremities. Sensory grossly intact. Vital Signs: 13:58 BP 141 / 108; Pulse 105; Resp 20; Temp 97.4(TE); Pulse Ox 97% on R/A; Weight 72.12 kg; hb Height 5 ft. 7 in. ; Pain 0/10; 14:33 BP 147 / 101; Pulse 101; Resp 19; Pulse Ox 96% on R/A; me1 15:00 BP 156 / 99; Pulse 100; Resp 20; Pulse Ox 100% on R/A; me1 15:30 BP 142 / 101; Pulse 111; Resp 18; Pulse Ox 98% on R/A; me1 16:30 BP 138 / 53; Pulse 91; Resp 20; Pulse Ox 96% on R/A; me1 16:30 BP 114 / 51; Pulse 87; Resp 19; Pulse Ox 94% on R/A; me1 13:58 Body Mass Index 24.90 (72.12 kg, 170.18 cm) hb 13:58 Pain Scale: Adult hb MDM: 13:55 Patient medically screened. sb4 14:07 ED course: lungs are clear in all lobes on auscultation, patient is not in any acute sb4 distress, saturating 100% on RA. 16:27 Data reviewed: vital signs, nurses notes, lab test result(s), EKG, radiologic studies, sb4 and as a result, I will admit patient. Consideration of Admission/Observation Patient was admitted/placed on observation. Counseling: I had a detailed discussion with the patient and/or guardian regarding the historical points, exam findings, and any diagnostic results supporting the discharge/admit diagnosis, the presence of at least one elevated blood pressure reading (>120/80) during this emergency department visit, lab results, radiology results, the need for further work-up and treatment in the hospital. 11/12 14:05 Order name: BMP; Complete Time: 15:36 sb4 11/12 14:05 Order name: Blood Culture Adult (2) sb4 11/12 14:05 Order name: CBC with Diff; Complete Time: 15:03 sb4 11/12 14:05 Order name: Hepatic Function; Complete Time: 15:36 sb4 11/12 14:05 Order name: Lipase; Complete Time: 15:36 sb4 11/12 14:05 Order name: Magnesium; Complete Time: 15:36 sb4 11/12 14:05 Order name: NT PRO-BNP; Complete Time: 15:36 sb4 11/12 14:05 Order name: PT-INR; Complete Time: 15:01 sb4 11/12 14:05 Order name: Ptt, Activated; Complete Time: 15:01 sb4 11/12 14:05 Order name: Troponin HS; Complete Time: 15:36 sb4 11/12 14:05 Order name: COVID-19/FLU A+B; Complete Time: 15:40 sb4 11/12 17:18 Order name: Thyroid Stimulating Hormone EDWI 11/12 17:18 Order name: CBC with Automated Diff EDMS 11/12 17:18 Order name: CBC with Automated Diff EDMS 11/12 17:18 Order name: CBC with Automated Diff EDMS 11/12 17:18 Order name: CBC with Automated Diff EDMS 11/12 17:18 Order name: Comprehensive Metabolic Panel EDMS 11/12 17:18 Order name: Comprehensive Metabolic Panel EDMS 11/12 17:18 Order name: Comprehensive Metabolic Panel EDMS 11/12 17:18 Order name: Comprehensive Metabolic Panel EDMS 11/12 17:18 Order name: Lipid Profile EDMS 11/12 17:18 Order name: Lipid Profile EDMS 11/12 17:18 Order name: Magnesium EDMS 11/12 17:18 Order name: Magnesium EDMS 11/12 17:18 Order name: Troponin High Sensitivity EDMS 11/12 17:18 Order name: Troponin High Sensitivity EDMS 11/12 17:18 Order name: Troponin High Sensitivity EDMS 11/12 17:18 Order name: Troponin High Sensitivity EDMS 11/12 14:05 Order name: XRAY CXR (1 view); Complete Time: 14:46 sb4 11/12 17:19 Order name: Barium Swallow Modified EDMS 11/12 14:05 Order name: EKG; Complete Time: 14:05 sb4 11/12 17:18 Order name: CONS Physician Consult EDWI 11/12 17:18 Order name: Physical Therapy Consult EDMS 11/12 17:32 Order name: Social Service Consult EDMS 11/12 14:05 Order name: Cardiac monitoring; Complete Time: 15:21 sb4 11/12 14:05 Order name: EKG - Nurse/Tech; Complete Time: 15:21 sb4 11/12 14:05 Order name: IV Saline Lock; Complete Time: 14:41 sb4 11/12 14:05 Order name: Labs collected and sent; Complete Time: 14:41 sb4 11/12 14:05 Order name: O2 Per Protocol; Complete Time: 14:41 sb4 11/12 14:05 Order name: O2 Sat Monitoring; Complete Time: 14:41 sb4 EC:19 Rate is 107 beats/min. Rhythm is irregularly irregular, A fib. QRS interval is normal sb4 at 82 msec. QT interval is normal at [address] changes noted. Clinical impression: Atrial Fibrillation. Interpreted by me. Reviewed by me. Administered Medications: 14:47 Drug: Levalbuterol Inhalation 1.25 mg Inhalation once Route: Inhalation; me1 15:45 Follow up: Response: No adverse reaction; Wheezing diminished me1 Disposition: 14:37 I was immediately available on-site in the Emergency Department for consultation in the ms3 care of the patient. Disposition Summary: 11/13/23 16:28 Hospitalization Ordered Notes: Hospitalization Status: Observation sb4 Provider: Kapil Ramirez sb4 Location: Telemetry/MedSur (observation) sb4 Condition: Fair sb4 Problem: an acute exacerbation sb4 Symptoms: are unchanged sb4 Bed/Room Type: Standard sb4 Room Assignment: 207(11/13/23 17:23) [id number] Diagnosis - Acute on chronic combined systolic (congestive) and diastolic (congestive) heart sb4 failure - COPD/ Chronic obstructive pulmonary disease with (acute) exacerbation sb4 Forms: - Medication Reconciliation Form sb4 - SBAR form sb4 - Leadership Thank You Letter sb4 Signatures: Dispatcher [employer] EDElif Will, RN RN Alejandro Molina DO DO ms3 Steph Gandara, PA-C PA-C sb4 Sasha Hernandez RN RN me1 Janelle Vaughan [email or web address] Corrections: (The following items were deleted from the chart) 17:23 16:28 sb4 [id number]
[2023-11-13] MEDS ORDERED: IPRATROPIUM BROM 0.5MG/2.5ML NEB PRN (16:58)
[2023-11-13] MEDS ORDERED: ALBUTEROL 2.5 MG/3 ML NEB SOL NEB PRN (16:58)
[2023-11-13] MEDS ORDERED: SODIUM CHLORIDE 0.9% 10ML INJ IV PRN (16:58)
[2023-11-13] MEDS: FUROSEMIDE 40 MG/4 ML VIAL IV SCH ×2 (17:00→18:39)
--- NOTE | 2023-11-13 17:24 | P.HP ---
Certification for Inpatient Patient admitted to: Inpatient With expected LOS: >2 Midnights Patient will require the following post-hospital care: Home Health Services Practitioner: I am a practitioner with admitting privileges, knowledge of patient current condition, hospital course, and medical plan of care. Services: Services provided to patient in accordance with Admission requirements found in Title 42 Section 412.3 of the Code of Federal Regulations Patient History Date of Service: 11/14/23 Primary Care Provider: Dr. Linda Reason for admission: a. fib RVR, CHF, COPD, Elevated trop History of Present Illness: Ms. Staton is a [address]. She has a past history of CHF, COPD, A-fib with RVR. She sees Dr. Domingo. Most recent echo was 07/08/2023 showing diastolic dysfunction, severe pulmonary hypertension with preserved ejection fraction of 59%. She presents to the ED with shortness of breath and weakness. Upon evaluation she is overloaded, significant pitting edema to lower extremities, chest x-ray shows mild bilateral lung opacities with a mildly enlarged heart. Room air saturation 81%. Ms. Staton does not have oxygen at home. SpO2 up to 100% on 2 L via nasal cannula. H&H is 10.6 and 32.4 may be dilutional, electrolytes unremarkable except for creatinine of 1.19, BUN 26, GFR 47. Her troponin is 263.6 (this is low normal to her previous). EKG shows A-fib with RVR. She takes amiodarone twice daily, diltiazem, and carvedilol. She takes a baby aspirin and Plavix 75 mg daily. Ms. Staton relays a history of choking and difficulty swallowing at times on a chronic basis. This was to be evaluated in the next week. Will do a swallow study before giving an AHA diet. She will be admitted for aggressive diuresis and management of other acute on chronic problems. Allergies codeine Adverse Reaction (Verified 11/13/23 21:06) worsen my hernia Home medications list reviewed: Yes Home Medications: Amiodarone HCl [Cordarone*] 200 mg PO BID 11/14/23 Aspirin Chewable [Aspirin Chewable*] 81 mg PO DAILY 11/14/23 Atorvastatin Calcium [Lipitor] 80 mg PO BEDTIME 11/14/23 Clopidogrel Bisulfate [Plavix*] 75 mg PO DAILY 11/14/23 Diltiazem HCl [Diltiazem 12Hr ER] 60 mg PO BID 11/14/23 Duloxetine HCl [Cymbalta] 60 mg PO BID 11/14/23 Famotidine [Pepcid*] 20 mg PO BEDTIME 11/14/23 Fluticasone/Umeclidin/Vilanter [Trelegy Ellipta 100-62.5-25] 1 puff IH DAILY 11/14/23 Furosemide [Lasix*] 60 mg PO BID 11/14/23 Levothyroxine Sodium 100 mcg PO DAILY 11/14/23 Lisinopril [Zestril] 20 mg PO BID 11/14/23 Magnesium Oxide [Magnesium] 400 mg PO BID 11/14/23 Methscopolamine [place] 5 mg PO DAILY 11/14/23 Mometasone/Formoterol [Dulera 200 Mcg/5 Mcg Inhaler] 2 puff IH BID 11/14/23 Omeprazole [Prilosec] 40 mg PO DAILY 11/14/23 Potassium Chloride [Klor-Con 10] 10 meq PO DAILY 11/14/23 Sertraline [Zoloft*] 25 mg PO DAILY 11/14/23 Trazodone HCl 150 mg PO BEDTIME 11/14/23 carvediloL [Carvedilol] 6.25 mg PO BID 11/14/23 - Past Medical/Surgical History Diabetic: No -: Hypertension -: Hypothyroidism -: Depression -: non-hodgkins lymphoma 2009 -: Hx DVT -: CHF -: Afib -: Incontinence -: Hysterectomy -: Cholecystectomy -: Watchman procedure -: Cardiac stent 2021 -: RLE stent -: Hemorrhoidectomy Psychosocial/ Personal History: Patient lives at home with her daughter - Family History Father -: Heart disease Mother -: Diabetes Sister -: Cancer - Social History Smoking Status: Former smoker Alcohol use: No CD- Drugs: No Caffeine use: Yes Place of Residence: Home (with Daughter) Review of Systems 10-point ROS is otherwise unremarkable General: Weakness Eyes: Unremarkable ENT: Unremarkable Respiratory: Shortness of Breath, SOB with Excertion, As per HPI Cardiovascular: Other (weakness, edema), As per HPI Gastrointestinal: Unremarkable Genitourinary: Unremarkable Musculoskeletal: Unremarkable Integumentary: Unremarkable Neurological: Unremarkable Lymphatics: Unremarkable Physical Examination - Vital Signs Pulse Ox (%): 81 (RA) - Physical Exam General: Alert, Oriented x3, Mild distress, Other (sitting on stretcher, no O2, SpO2 between 81) HEENT: Atraumatic, Normocephalic Neck: Supple Respiratory: Normal air movement Cardiovascular: Abnormal S3, Other (pitting edema lower extremities), Irregular heart rate/rhythm Capillary refill: <2 Seconds Gastrointestinal: Soft and benign Musculoskeletal: No clubbing Integumentary: No rashes Neurological: Normal speech, Normal tone Lymphatics: No axilla or inguinal lymphadenopathy External genitalia: Deferred Rectal: Deferred - Studies Laboratory Data (last 24 hrs) 11/13/23 11/13/23 11/13/23 14:36 14:36 14:36 WBC 9.50 Hgb 10.6 L Hct 32.4 L Plt Count 279 PT 13.3 H INR 1.22 APTT 33.3 Sodium 139 Potassium 4.6 BUN 26 H Creatinine 1.19 H Glucose 128 H Magnesium 2.1 Total Bilirubin 0.7 AST 40 H ALT 44 Alkaline Phosphatase 155 H Lipase 26 Assessment and Plan - Plan Subjective: Patient's shortness of breath has worsened Patient's PND/orthopnea has worsened. Edema of the lower extremities has worsened. Patient's congestive heart failure is decompensated. Dyspnea on exertion DX: (1.) CHF - Diastolic dysfunction with preserved EF (65%)/Pulmonary Hypertension with elevated troponin (2.) A. fib with RVR (3.) COPD exacerbation (4.) dysphagia (chronic) Plan: 1. Echocardiogram 07/08/23 Moderate diastolic dysfunction, severe pulmonary hypertension, preserved EF 65% 2. Continue BRANDON inhibitor (monitor creatinine) 3. Continue Carvedilol and amiodarone 4. Cardiology consultation 5. Aggressive diuresis 6. Strict I's and O's 7. Trend troponin - (263.6 in ED) likely elevated 2nd to overload 8. Continue ASA and Plavix 9. Daily weight 10. Continue home COPD medications, nebs, and Dulera, O2 to keep SpO2 > 90%, spot check sats, set up home O2, PT and cardiac rehab consultation 11. Education regarding diet and treatment of congestive heart failure 12. Bedside swallow screen, barium swallow, speech eval 13. GI and DVT prophylaxis - protonix/Lovenox - Advance Directives Does patient have a Living Will: Yes Does patient have a Durable POA for Healthcare: Yes
[2023-11-13 18:19] LABS: Thyroid Stimulating Hormone 8.92 uIU/mL (0.358-3.740)
[2023-11-13] MEDS: carvediloL 6.25 MG TAB PO SCH (18:39)
[2023-11-13] MEDS: DULOXETINE 30 MG CAP PO SCH (20:05)
[2023-11-13] MEDS: DULERA 200/5 (MOMETASONE/FORMOTEROL) INHALER IH SCH (20:05)
[2023-11-13] MEDS: AMIODARONE HCL 200 MG TAB PO SCH (20:05)
[2023-11-13] MEDS: ATORVASTATIN 80 MG TAB PO SCH (20:05)
[2023-11-13] MEDS: PANTOPRAZOLE 40 MG INJ IVP SCH (20:05)
[2023-11-13] MEDS: DILTIAZEM HCL 60 MG TAB PO SCH (21:02)
[2023-11-13] MEDS: TRAZODONE 150 MG TAB PO PRN (22:31)
[2023-11-14 03:41] VITALS: BMI 24.5
[2023-11-14 03:59] LABS: Absolute Basophils 0.1 K/uL (0-0.5); Absolute Lymphocytes (CBC) 1.2 K/uL (0.7-4.9); Basophils % 0.9 % (0-1.3); Hematocrit 29.4 % (36.0-45.0); Lymphocytes % 12.3 % (15.3-44.8); MCV 85.6 fL (80-100); MPV 7.9 fL (7.6-11.3); Platelets 225 thou/uL (152-406); RBC Red Blood Cell Count 3.43 M/uL (3.86-4.86)
[2023-11-14 04:24] LABS: Albumin/Globulin Ratio 0.7 (1.1-1.8); Anion Gap 7.8 mEq/L (5.0-15.0); Bilirubin Total 0.7 mg/dL (0.2-1.0); Magnesium 1.8 mg/dL (1.6-2.4); Potassium 3.8 mEq/L (3.5-5.1); Protein, Total 7.1 g/dL (6.4-8.2)
[2023-11-14 04:26] LABS: Troponin High Sensitivity 248.6 pg/mL (<58.9)
[2023-11-14] MEDS: LEVOTHYROXINE SOD 0.1 MG TAB PO SCH (05:44)
[2023-11-14] MEDS: MAGNESIUM SULFATE 1 gm IVPB 1 GM/100 ML BAG IV ONE (06:22)
[2023-11-14] MEDS: PNEUMOCOCCAL VACCINE 0.5 ML IMVAC ONE (08:00)
[2023-11-14] MEDS: ASPIRIN EC 81 MG TAB PO SCH (08:58)
[2023-11-14] MEDS: POTASSIUM CL SA 10 MEQ TAB PO ONE (08:58)
[2023-11-14] MEDS: lisinopriL 20 MG TAB PO SCH ×2 (08:58→20:31)
[2023-11-14] MEDS: CLOPIDOGREL 75 MG TABLET PO SCH (08:58)
[2023-11-14] MEDS: ENOXAPARIN 40 MG/0.4 ML SQ SCH (08:59)
--- NOTE | 2023-11-14 14:27 | P.DS ---
Admission Date: 11/13/23 Discharge Date: 11/14/23 Primary Care Provider: Dr. Linda Disposition: ROUTINE DISCHARGE Reason for Admission: a. fib RVR, CHF, COPD, Elevated trop Brief History of Present Illness: Ms. Staton is a [address] Linda. She has a past history of CHF, COPD, A-fib with RVR. She sees Dr. Domingo. Most recent echo was 07/08/2023 showing diastolic dysfunction, severe pulmonary hypertension with preserved ejection fraction of 59%. She presents to the ED with shortness of breath and weakness. Upon evaluation she is overloaded, significant pitting edema to lower extremities, chest x-ray shows mild bilateral lung opacities with a mildly enlarged heart. Room air saturation 81%. Ms. Staton does not have oxygen at home. SpO2 up to 100% on 2 L via nasal cannula. H&H is 10.6 and 32.4 may be dilutional, electrolytes unremarkable except for creatinine of 1.19, BUN 26, GFR 47. Her troponin is 263.6. EKG shows A-fib with RVR. She takes amiodarone twice daily, diltiazem, and carvedilol. She takes a baby aspirin and Plavix 75 mg daily. Ms. Staton relays a history of choking and difficulty swallowing at times on a chronic basis. This was to be evaluated in the next week. Will do a swallow study before giving an AHA diet. She will be admitted for aggressive diuresis and management of other acute on chronic problems. Hospital Course: Post diuresis Ms. Staton is significantly improved. She has no distress. She ambulated on room air SpO2 93%. Lower extremity edema is completely resolved. She states she feels better, no complaints. Vital Signs/Physical Exam: Temp Pulse Resp BP Pulse Ox 98.3 F 118 H 18 145/85 H 97 11/14/23 12:00 11/14/23 12:00 11/14/23 12:00 11/14/23 12:11/14/23 12:00 General: Alert, In no apparent distress, Oriented x3 HEENT: Atraumatic, Normocephalic Neck: Supple, 2+ carotid pulse no bruit Respiratory: Normal air movement Cardiovascular: Other (no peripheral edema), Irregular heart rate/rhythm Capillary refill: <2 Seconds Gastrointestinal: Soft and benign Musculoskeletal: No clubbing, No swelling Integumentary: No rashes Neurological: Normal speech Lymphatics: No axilla or inguinal lymphadenopathy External genitalia: Deferred Rectal: Deferred Laboratory Data at Discharge: WBC 9.60 thou/uL (4.3-10.9) 11/14/23 03:12 Hgb 9.8 g/dL (12.0-15.0) L 11/14/23 03:12 Hct 29.4 % (36.0-45.0) L 11/14/23 03:12 Plt Count 225 thou/uL (152-406) 11/14/23 03:12 PT 13.3 SECONDS (9.5-12.5) H 11/13/23 14:36 INR 1.22 11/13/23 14:36 APTT 33.3 SECONDS (24.3-36.9) 11/13/23 14:36 Sodium 139 mEq/L (136-145) 11/14/23 03:12 Potassium 3.8 mEq/L (3.5-5.1) D 11/14/23 03:12 BUN 24 mg/dL (7-18) H 11/14/23 03:12 Creatinine 1.16 mg/dL (0.55-1.02) H 11/14/23 03:12 Glucose 97 mg/dL (74-106) 11/14/23 03:12 Magnesium 1.8 mg/dL (1.6-2.4) 11/14/23 03:12 Total Bilirubin 0.7 mg/dL (0.2-1.0) 11/14/23 03:12 AST 33 U/L (15-37) 11/14/23 03:12 ALT 39 U/L (13-56) 11/14/23 03:12 Alkaline Phosphatase 134 U/L (45-117) H 11/14/23 03:12 Triglycerides 78 mg/dL (<150) 11/14/23 03:12 Cholesterol 98 mg/dL (<200) 11/14/23 03:12 HDL Cholesterol 32 mg/dL (40-60) L 11/14/23 03:12 Cholesterol/HDL Ratio 3.06 11/14/23 03:12 Lipase 26 U/L (13-75) 03/01/24 14:36 Home Medications: Amiodarone HCl [Cordarone*] 200 mg PO BID 11/14/23 Aspirin Chewable [Aspirin Chewable*] 81 mg PO DAILY 11/14/23 Atorvastatin Calcium [Lipitor] 80 mg PO BEDTIME 11/14/23 Clopidogrel Bisulfate [Plavix*] 75 mg PO DAILY 11/14/23 Diltiazem HCl [Diltiazem 12Hr ER] 60 mg PO BID 11/14/23 Duloxetine HCl [Cymbalta] 60 mg PO BID 11/14/23 Famotidine [Pepcid*] 20 mg PO BEDTIME 11/14/23 Fluticasone/Umeclidin/Vilanter [Trelegy Ellipta 100-62.5-25] 1 puff IH DAILY 11/14/23 Furosemide [Lasix*] 60 mg PO BID 11/14/23 Levothyroxine Sodium 100 mcg PO DAILY 11/14/23 Lisinopril [Zestril] 20 mg PO BID 11/14/23 Magnesium Oxide [Magnesium] 400 mg PO BID 11/14/23 Methscopolamine [place] 5 mg PO DAILY 11/14/23 Mometasone/Formoterol [Dulera 200 Mcg/5 Mcg Inhaler] 2 puff IH BID 11/14/23 Omeprazole [Prilosec] 40 mg PO DAILY 11/14/23 Potassium Chloride [Klor-Con 10] 10 meq PO DAILY 11/14/23 Sertraline [Zoloft*] 25 mg PO DAILY 11/14/23 Trazodone HCl 150 mg PO BEDTIME 11/14/23 carvediloL [Carvedilol] 6.25 mg PO BID 11/14/23 Physician Discharge Instructions: Efrain to DC IV and DC home Follow-up with Dr. Linda in 1 to 2 weeks Please call the inpatient unit for any questions or concerns regarding hospital stay Return to the ER for worsening symptoms Diet: AHA Followup: Jayy Linda MD [Primary Care Provider] -
[2023-11-14] MEDS: ACETAMINOPHEN 500 MG TAB PO ONE (16:43)
[2023-11-14] MEDS: DULOXETINE 30 MG CAP PO SCH (20:30)
[2023-11-14] MEDS: FAMOTIDINE 20 MG TAB PO SCH (20:30)
[2023-11-14] MEDS: MAGNESIUM OXIDE 400 MG TAB PO SCH (20:32)
[2023-11-14] MEDS: DILTIAZEM HCL 60 MG PO SCH (20:34)
[2023-11-14] MEDS ORDERED: HOME MED 1 EA UNK (Magnesium Oxide [Magnesium] 400 MG Tablet) PO SCH (21:00)
[2023-11-14] MEDS ORDERED: HOME MED 1 EA UNK (Duloxetine Hcl [Cymbalta] 60 MG Capsule.Dr) PO SCH (21:00)
[2023-11-14] MEDS ORDERED: DULERA 200/5 (MOMETASONE/FORMOTEROL) INHALER IH SCH (21:00)
[2023-11-15 04:09] LABS: Absolute Basophils 0.1 K/uL (0-0.5); Absolute Lymphocytes (CBC) 0.9 K/uL (0.7-4.9); Basophils % 0.7 % (0-1.3); Hematocrit 27.3 % (36.0-45.0); Lymphocytes % 11.6 % (15.3-44.8); MCV 84.6 fL (80-100); MPV 7.9 fL (7.6-11.3); Platelets 198 thou/uL (152-406); RBC Red Blood Cell Count 3.22 M/uL (3.86-4.86)
[2023-11-15 04:17] LABS: Albumin 2.5 g/dL (3.4-5.0); Albumin/Globulin Ratio 0.7 (1.1-1.8); Anion Gap 8.8 mEq/L (5.0-15.0); Bilirubin Total 0.6 mg/dL (0.2-1.0); Magnesium 1.9 mg/dL (1.6-2.4); Potassium 3.8 mEq/L (3.5-5.1); Protein, Total 6.3 g/dL (6.4-8.2)
[2023-11-15] MEDS: LEVOTHYROXINE SOD 0.1 MG TAB PO SCH (05:30)
[2023-11-15] MEDS: POTASSIUM CL SA 10 MEQ TAB PO SCH (08:26)
[2023-11-15] MEDS: POTASSIUM CL SA 10 MEQ TAB PO ONE (08:26)
[2023-11-15] MEDS: PANTOPRAZOLE 40MG TABLET PO SCH (08:29)
[2023-11-15] MEDS: SERTRALINE HCL 50 MG TAB PO SCH (08:29)
[2023-11-15] MEDS ORDERED: HOME MED 1 EA UNK (Fluticasone/Umeclidin/Vilanter [Trelegy Ellipta 100-62.5-25] Blst.W.Dev IH SCH (09:00)
[2023-11-15] MEDS ORDERED: HOME MED 1 EA UNK (Omeprazole [Prilosec] 40 MG Capsule.Dr) PO SCH (09:00)
[2023-11-15] MEDS: METHSCOPOLAMINE BROMIDE 5 MG PO SCH (09:00)
[2023-11-16 05:40] LABS: Absolute Lymphocytes (CBC) 0.7 K/uL (0.7-4.9); Basophils % 0.6 % (0-1.3); Lymphocytes % 8.7 % (15.3-44.8); MCV 84.2 fL (80-100); MPV 7.6 fL (7.6-11.3); Platelets 208 thou/uL (152-406); RBC Red Blood Cell Count 3.33 M/uL (3.86-4.86)
[2023-11-16 06:04] LABS: Albumin 2.6 g/dL (3.4-5.0); Albumin/Globulin Ratio 0.7 (1.1-1.8); Anion Gap 8.6 mEq/L (5.0-15.0); Bilirubin Total 0.6 mg/dL (0.2-1.0); Potassium 3.6 mEq/L (3.5-5.1); Protein, Total 6.5 g/dL (6.4-8.2)
[2023-11-16] MEDS: POTASSIUM CL SA 10 MEQ TAB PO ONE ×2 (09:00→13:21)
[2023-11-16] MEDS ORDERED: REGADENOSON 0.4 MG/5 ML SYR IV ONE (09:53)
--- NOTE | 2023-11-16 10:32 | RAD REPORT ---
EXAM DESCRIPTION: NM - Rest Stress Cardiac Imaging - 11/16/2023 10:23 am CLINICAL HISTORY: CP Chest pain. COMPARISON: Rest Stress Cardiac Imaging dated 12/04/2022 TECHNIQUE: The patient was administered approximately 10mCi of Tc 99m Sestamibi prior to resting SPE CT imaging of the heart. The patient was then administered approximately 30 mCi of Tc 99m Sestamibi f ollowing exercise or pharmacologic stress. Multiplanar SPECT images were reviewed. FINDINGS: There is reduction in radiopharmaceutical accumulation noted along the anterior wall stormy tible with mild stress-induced ischemia. This is a moderate sized area. Small fixed defect in the reg ion of the apex also noted likely related to prior infarct. The end diastolic volume is 88 ml, the end systolic volume is 66 ml, and the ejection fraction is 24 %. IMPRESSION: Moderate sized area of mild stress-induced ischemia involving the anterior wall.
--- NOTE | 2023-11-16 10:50 | RAD REPORT ---
EXAM DESCRIPTION: RAD - Barium Swallow Modified - 11/16/2023 10:42 am CLINICAL HISTORY: choking episodes COMPARISON: Abdomen Pelvis W Contrast dated 09/17/2023 TECHNIQUE: The patient was given liquid, semi-solid and solid forms of barium. Lateral view fluorosc opic imaging was performed in conjunction with speech pathology service. FINDINGS: No evidence of aspiration or penetration. Mildly persistent cricopharyngeus muscle suggest ing cricopharyngeal bar. Total fluoroscopy time: 1 minutes 39 seconds
--- NOTE | 2023-11-16 11:03 | RAD REPORT ---
EXAM DESCRIPTION: RAD - Chest Pa And Lat (2 Views) - 11/16/2023 10:45 am CLINICAL HISTORY: CHF Chest pain. COMPARISON: Chest Single View dated 11/13/2023; Chest Single View dated 07/07/2023; Chest Single View dated 03/16/2023; Chest Single View dated 12/06/2022 FINDINGS: Mild pulmonary edema is seen, mildly improved since 11/13/2023. The heart is moderately en larged. Trace bilateral pleural effusions. No displaced fractures. IMPRESSION: Mild improvement in CHF pattern since 11/13/2023.
--- NOTE | 2023-11-16 11:22 | P.CNS ---
Date of Consult: 11/16/23 Primary Care Provider: Dr. Linda Chief Complaint: a. fib RVR, CHF, COPD, Elevated trop History of Present Illness: Patient with PMH of atrial fibrillation, diastolic heart failure and CAD s/p PCI presented with worsening SOB over the last week, she report chronic fatigue, also report occasional chest pressure sensation, denies any other cardiac symptoms, patient got a history of 2 failed DCCV and watchman device placement. Allergies codeine Adverse Reaction (Verified 11/13/23 21:06) worsen my hernia Home Medications: Amiodarone HCl [Cordarone*] 200 mg PO BID 11/14/23 Aspirin Chewable [Aspirin Chewable*] 81 mg PO DAILY 11/14/23 Atorvastatin Calcium [Lipitor] 80 mg PO BEDTIME 11/14/23 Clopidogrel Bisulfate [Plavix*] 75 mg PO DAILY 11/14/23 Diltiazem HCl [Diltiazem 12Hr ER] 60 mg PO BID 11/14/23 Duloxetine HCl [Cymbalta] 60 mg PO BID 11/14/23 Famotidine [Pepcid*] 20 mg PO BEDTIME 11/14/23 Fluticasone/Umeclidin/Vilanter [Trelegy Ellipta 100-62.5-25] 1 puff IH DAILY 11/14/23 Furosemide [Lasix*] 60 mg PO BID 11/14/23 Levothyroxine Sodium 100 mcg PO DAILY 11/14/23 Lisinopril [Zestril] 20 mg PO BID 11/14/23 Magnesium Oxide [Magnesium] 400 mg PO BID 11/14/23 Methscopolamine [place] 5 mg PO DAILY 11/14/23 Mometasone/Formoterol [Dulera 200 Mcg/5 Mcg Inhaler] 2 puff IH BID 11/14/23 Omeprazole [Prilosec] 40 mg PO DAILY 11/14/23 Potassium Chloride [Klor-Con 10] 10 meq PO DAILY 11/14/23 Sertraline [Zoloft*] 25 mg PO DAILY 11/14/23 Trazodone HCl 150 mg PO BEDTIME 11/14/23 carvediloL [Carvedilol] 6.25 mg PO BID 11/14/23 - Past Medical/Surgical History Diabetic: No -: Hypertension -: Hypothyroidism -: Depression -: non-hodgkins lymphoma 2009 -: Hx DVT -: CHF -: Afib -: Incontinence -: Hysterectomy -: Cholecystectomy -: Watchman procedure -: Cardiac stent 2021 -: RLE stent -: Hemorrhoidectomy Psychosocial/ Personal History: Patient lives at home with her daughter - Family History Father Medical History: Heart disease Mother Medical History: Diabetes Sister Medical History: Cancer - Social History Smoking Status: Unknown if ever smoked Alcohol use: No CD- Drugs: No Caffeine use: Yes Place of Residence: Home (with Daughter) Review of Systems 10-point ROS is otherwise unremarkable Physical Examination Temp Pulse Resp BP Pulse Ox 97 F 102 H 18 172/102 H 97 11/16/23 08:00 11/16/23 08:00 11/16/23 08:00 11/16/23 08:00 11/16/23 08:00 General: Alert HEENT: Atraumatic Neck: Supple Respiratory: Crackles/rales Cardiovascular: Edema (bilateral +1 to lower extremities.), Irregular heart rate/rhythm Gastrointestinal: Normal bowel sounds - Problems (1) Atrial fibrillation with rapid ventricular response Current Visit: Yes Status: Acute Plan: patient is in AF w RVR with 2 failed DCCV in the past, advise to increase Amiodarone to 400 mg po BID for 5 days starting today stop Diltazem as patient BP is soft. Switch Coreg to Toprol XL 25 mg po BID Continue ASA and Plavix as patient got watchman placed in the past. (2) Acute on chronic diastolic heart failure Current Visit: Yes Status: Acute Plan: as above and agree with lasix 40 mg IV BID and close monitor of I&O and electrolytes. (3) CAD (coronary artery disease), [place] coronary artery Current Visit: Yes Status: Acute Plan: patient had a stress test done so will follow up on results continue ASA and Plavix
[2023-11-16] MEDS: ACETAMINOPHEN 500 MG TAB PO PRN (13:14)
--- NOTE | 2023-11-16 20:57 | PN ---
Date of Progress Note: 11/16/2023 Subjective: The patient was seen this morning for followup. She was admitted over the weekend by spitalist Service after she came into the emergency room with complaints of weakness, leg swelling, a nd shortness of breath. The patient was admitted to the hospital with congestive heart failure and h er condition has improved. Her leg swelling has resolved now with use of diuretic therapy. She has required supplemental oxygen therapy because of hypoxia or related to respiratory failure due to unde rlying congestive heart failure. She has been having some trouble swallowing from time to time and s he is scheduled to have modified barium swallow test today. Objective: HEENT: Unremarkable. Lungs: Bilateral good equal air entry except presence of rales in right lung base and diminished air entry in the left lung base. Heart: Sounds normal. Abdomen: Soft. Bowel sounds normal. No guarding, rigidity, tenderness, distention. Extremities: No leg edema. Impression: 1.Congestive heart failure. 2.Abnormal liver function tests. 3.Coronary artery disease. 4.Atrial fibrillation. 5.Hypertension. 6.Anemia, chronic. 7.Chronic kidney disease. 8.Hyperlipidemia. Plan: We will continue current diuretic therapy. Continue current DVT prophylaxis. Monitor electro lyte and renal function. We will follow up on results of modified barium swallow. Social Service is trying to make arrangements for home oxygen therapy. Possible discharge to go home tomorrow depending on her condition. Blood work done this morning, results i ana. LUIS/MODL Voice ID: [id number] Report ID: [id number]
--- NOTE | 2023-11-17 07:07 | TREADPHA ---
DX: CHEST PAIN Date of Study: 11/16/2023 Ht: 5' 7 " Wt: 155 lb 9.6 oz Consulting Physician: JT MEDICATIONS: ASPIRIN, PLAVIX, LOVENOX, LIPITOR, COREG, CORDARONE, PRINIVIL, KLOR-CON, CYMBALTA, CARDIZEM HISTORY: HYPERTENSION, CARDIAC STENT HISTORY, HYPERLIPIDEMIA, ATRIAL FIBRILLATION PHYSICIAL EXAMINATION: RESTING B.P.: 172/97 RESTING H.R.: 119 RESTING EKG: ATRIAL FIBRILLATION PROTOCOL: PHARMACOLOGIC EXERCISE TIME: 3:30 B.P. AT PEAK STRESS: 136/87 IMPRESSION: PATIENT IN ATRIAL FIBRILLATION PRE PROCEDURE, DURING, AND POST PROCEDURE. LEXISCAN INJECTED, CARDIOLITE INJECTED - SEE NUCLEAR MEDICINE REPORT. NO CHEST PAIN, NO VENTRICULAR TACHYCARDIA, NO SUPRAVENTRICULAR TACHYCARDIA. CARDIOLITE INJECTED PER PROTOCOL - SEE NUCLEAR MEDICINE REPORT. NO ELECTROCARDIOGRAM CHANGES IS ISCHEMIA WITH LEXISCAN.
[2023-11-17] MEDS: POTASSIUM CL SA 10 MEQ TAB PO ONE (10:12)
[2023-11-17] MEDS: METOPROLOL XL 25 MG TAB PO SCH (10:13)
[2023-11-17] MEDS: AMIODARONE HCL 200 MG TAB PO SCH (10:48)
--- NOTE | 2023-11-17 16:15 | PN ---
Date of Progress Note: 11/17/2023 Subjective: Seen by bedside. She denies having any chest pain. Has shortness of breath on exertion . No edema of lower extremities. No nausea, vomiting, diarrhea. No other complaints. Review of Systems: All systems are reviewed. They are negative except for mentioned above. Physical Examination: Vital Signs: Reviewed. Head and Neck: Pupils are equal, reactive to light. Intact eye movements. No JVD. No cervical lym phadenopathy. Neck is supple. Thyroid is not enlarged. Lungs: Decreased breathing sounds bilaterally with scattered wheezing. No accessory muscle use or m uscle retraction. Heart: Regular. No extra sounds. Abdomen: Soft, nontender. Bowel sounds positive. No organomegaly. No masses or hernia. Extremities: No edema, clubbing, or cyanosis. Skin: No rash or nodule. Neurologic: Alert, awake, oriented x3. No acute focal deficits appreciated. Investigations: Troponin peaked at 264. BUN 18, creatinine 0.95, and hemoglobin is 9.4. Assessment And Recommendations: 1.Atrial fibrillation with rapid ventricular response. Heart rate is still borderline increased. T he amiodarone was increased to 400 mg twice a day for reload over the next 5 days. I would recommend to increase metoprolol to 50 mg twice a day and continue baby aspirin. The patient is status post a ppendage closure. 2.Elevated troponin, chest pain on and off, abnormal stress test. Given p.o. past midnight. Plan f or coronary angiogram tomorrow. 3.Acute on chronic diastolic heart failure. Euvolemic clinically. Lasix can be switched to oral. Carefully monitor BUN, creatinine, and electrolytes. SR/MODL Voice ID: [id number] Report ID: [id number]
--- NOTE | 2023-11-17 17:19 | EKG ---
Test Date: 2023-11-13 Test Time: 15:15:45 Music Department Chair: MEASUREMENT RESULTS: Intervals: Rate: 107 PA: QRSD: 82 QT: 290 QTc: 387 [place]: P: PA: QRS: 68 T: 104 INTERPRETIVE STATEMENTS: Atrial fibrillation Nonspecific T wave abnormality, probably digitalis effect Abnormal ECG Compared to ECG 07/07/2023 15:12:41 T-wave abnormality now present Sinus rhythm no longer present Sinus arrhythmia no longer present ST (T wave) deviation no longer present Prolonged QT interval no longer present Electronically Signed On 11-17-23 17:07:09 INSURANCE CLERK by Ortiz Domingo
--- NOTE | 2023-11-18 06:29 | PN ---
Date of Progress Note: 11/17/2023 Subjective: The patient was seen this morning for followup, she was lying in bed, not in any distres s. Denies any new complaints. Objective: Vital Signs: Reviewed. HEENT: Unremarkable. Lungs: Clear to auscultation. Heart: Sounds normal. Abdomen: Soft. Bowel sounds normal. No guarding, rigidity, tenderness, distention. Extremities: No leg edema. Laboratory Data: No new blood work today. Her stress test from yesterday had shown stress-induced i schemia. Impression: 1.Coronary artery disease. 2.Chronic atrial fibrillation with rapid ventricular rate. 3.Congestive heart failure, chronic, diastolic with acute exacerbation. 4.Hypertension. Plan: We will continue to follow with counter pocket sewer, Dr. Domingo. He saw the patient yesterday and he has recommended to discontinue diltiazem and increase dose of amiodarone to 400 mg 2 times a day, ad d Toprol 25 mg b.i.d. and we will also discontinue carvedilol. Commissary Officer is planning to do cardia c cath on her and further plan of treatment will depend on that. The patient remains on aspirin and Plavix after her Watchman's procedure that was done within last few months. LUIS/MODL Voice ID: [id number] Report ID: [id number]
[2023-11-18] MEDS ORDERED: HEPA 1000U/500MLS 2,000 UNIT/1,000 ML BAG IV ONE (14:35)
[2023-11-18] MEDS ORDERED: LIDOCAINE 1% 20 ML MDV ONE (14:35)
[2023-11-18] MEDS ORDERED: HEPARIN 10,000 UNIT/10 ML VIAL IV ONE (14:36)
[2023-11-18] MEDS ORDERED: VERAPAMIL HCL 10 MG/4 ML VIAL IV ONE (14:36)
[2023-11-18] MEDS ORDERED: FENTANYL CITR 100 MCG/2 ML ONE (14:36)
[2023-11-18] MEDS ORDERED: HEPARIN 5000 UNIT/ML 1 ML VIAL ONE (14:36)
[2023-11-18] MEDS ORDERED: MIDAZOLAM HCL 2 MG/2 ML INJ ONE (14:36)
[2023-11-18] MEDS ORDERED: ATROPINE SULF 1 MG/10 ML SYR IV ONE (14:36)
[2023-11-18] MEDS ORDERED: TICAGRELOR 90 MG TABLET PO ONE (14:36)
[2023-11-18] MEDS ORDERED: CLOPIDOGREL 75 MG TABLET ONE (14:37)
[2023-11-18] MEDS ORDERED: ASPIRIN 325 MG TAB ONE (14:37)
[2023-11-18] MEDS ORDERED: NA CHLORIDE 0.9% 500 ML ONE (14:38)
--- NOTE | 2023-11-18 17:08 | P.PN ---
Subjective Date of Service: 11/18/23 Primary Care Provider: Dr. Linda Chief Complaint: a. fib RVR, CHF, COPD, Elevated trop Subjective: No new changes Review of Systems 10-point ROS is otherwise unremarkable Physical Examination - Vital Signs Temperature: 97.6 F Blood Pressure: 140/79 Pulse: 105 Respirations: 16 Pulse Ox (%): 96 - Physical Exam General: Alert HEENT: Atraumatic Neck: Supple Respiratory: Clear to auscultation bilaterally Cardiovascular: Edema, Irregular heart rate/rhythm Gastrointestinal: Normal bowel sounds - Studies Microbiology Data (last 24 hrs): 11/13/23 14:45 Blood - Blood Aerobic Blood Culture - Final No growth in 5 days. 11/13/23 14:45 Blood - Blood Anaerobic Blood Culture - Final No growth in 5 days. 11/13/23 14:36 Blood - Blood Aerobic Blood Culture - Final No growth in 5 days. 11/13/23 14:36 Blood - Blood Anaerobic Blood Culture - Final No growth in 5 days. Assessment And Plan - Current Problems (Diagnosis) (1) Acute on chronic diastolic heart failure Current Visit: Yes Status: Acute Plan: patient had a right heart cath done today that shows RA pressure of 18 mmHg, PA mean 33 mmHg and wedge of 16 mmHg which indicate elevated right and left filling pressures. continue with Laix 40 mg IV BID Continue to monitor input and output. correct electrolytes fluid restriction. (2) Atrial fibrillation with rapid ventricular response Current Visit: Yes Status: Acute Plan: continue Amiodarone load of 400 mg po BID for 48 hours then switch to amiodarone 200 mg po BID increase patient Toprol XL to 50 mg po BID in am D/C Diltazem patient is s/p watchman so continue ASA and Plavix. (3) CAD (coronary artery disease), [place] coronary artery Current Visit: Yes Status: Acute Plan: repeated coronary angiogram shows mild to moderate CAD with patent stents. continue medical management.
--- NOTE | 2023-11-18 20:18 | PN ---
Date of Progress Note: 11/18/2023 Subjective: The patient was seen this morning for followup. She was lying in bed, not in any distre ss. Denies any complaints this morning. No chest pain, shortness of breath. No nausea, vomiting. No abdominal pain. Objective: Vital Signs: Reviewed. HEENT: Unremarkable. Lungs: Clear to auscultation. Heart: Sounds normal. Abdomen: Soft. Bowel sounds normal. No guarding, rigidity, tenderness, distention. Extremities: No leg edema. Impression: 1.Congestive heart failure, chronic, diastolic, with acute exacerbation. 2.Hypertension. 3.Hyperlipidemia. 4.Coronary artery disease. 5.Chronic atrial fibrillation. Plan: We will go ahead and continue current aspirin, Plavix, antihypertensive medication. Continue statin therapy and current DVT prophylaxis. The patient is going to have cardiac cath with Dr. Aris mckeon and further plan of treatment will depend on machine feeder's recommendation after cardiac cath. We will continue current metoprolol and amiodarone as suggested by machine feeder. LUIS/MODL Voice ID: [id number] Report ID: [id number]
[2023-11-19 04:01] LABS: Absolute Basophils 0.1 K/uL (0-0.5); Absolute Lymphocytes (CBC) 0.7 K/uL (0.7-4.9); Basophils % 0.7 % (0-1.3); Hematocrit 30.2 % (36.0-45.0); MCV 83.7 fL (80-100); MPV 7.6 fL (7.6-11.3); Platelets 263 thou/uL (152-406)
[2023-11-19 04:13] LABS: Potassium 3.7 mEq/L (3.5-5.1)
[2023-11-19 04:14] LABS: Anion Gap 8.7 mEq/L (5.0-15.0)
[2023-11-19] MEDS: POTASSIUM CL SA 10 MEQ TAB PO ONE (08:20)
[2023-11-19] MEDS: METOPROLOL XL 50 MG TAB PO SCH (08:21)
--- NOTE | 2023-11-19 20:33 | PN ---
Date of Progress Note: 11/19/2023 Subjective: The patient was seen this morning for followup. No new complaints or problems reported by the patient. She had cardiac cath done and she actually had a right and a left heart catheterizat ion done yesterday. She did not require any intervention. She denies any complaints this morning. Objective: Vital Signs: Reviewed. HEENT: Unremarkable. Lungs: Clear to auscultation. Heart: Sounds normal. Abdomen: Soft. Bowel sounds normal. No guarding, rigidity, tenderness, distention. Extremities: No leg edema. : Right groin has small area of dressing present. No evidence of any bleeding, but she does have quite a bit large area of soft tissue swelling over right groin and superior to right groin area. It is slightly tender to touch. Overlying skin is normal. Impression: 1.Chronic diastolic heart failure, with acute exacerbation. 2.Coronary artery disease. 3.Hypertension. 4.Peripheral vascular disease. 5.Anemia. 6.Hematoma, right groin, status post cardiac cath. Plan: We will go ahead and continue to follow up with environmental protection forester. Per my request, nurse did yanetha ct environmental protection forester to evaluate her right groin area today and Cardiology first recommended for the patie nt to stay in hospital until tomorrow and we will keep her today with continuation of current medicat ions including her aspirin, Plavix, diuretic medications, and I will see her tomorrow morning for fol lowup and we will possibly discharge her to go home tomorrow. Her blood work today, white count was 8.9, hemoglobin 10.1, platelets 263. Her hemoglobin on 11/16/2023 was 9.4. Her chemistry today, sod ium 135, potassium 3.7, chloride 101, bicarb 29, BUN 23, creatinine 1.01, glucose 109. LUIS/MODL Voice ID: [id number] Report ID: [id number]
--- NOTE | 2023-11-19 22:07 | RAD REPORT ---
EXAM DESCRIPTION: CT - Abdomen Pelvis Wo Contrast - 11/19/2023 9:30 pm CLINICAL HISTORY: abdominal pain and swelling COMPARISON: Abdomen Pelvis W Contrast dated 09/17/2023; Abdomen Pelvis W Contrast dated 12/02/2022; Abdomen Pelvis W Contrast dated 10/13/2022; Abdomen Pelvis Wo Contrast dated 09/22/2022; Chest Pa A nd Lat (2 Views) dated 11/16/2023 TECHNIQUE: Thin cut axial CT imaging of the abdomen and pelvis was performed without IV contrast. Mu ltiplanar reformats were generated and reviewed. All CT scans are performed using dose optimization technique as appropriate and may include automated exposure control or mA/KV adjustment according to patient size. FINDINGS: Hyperdense ill-defined hematoma along the right anterior lower abdominal wall and groin, m easuring 4.4 x 7.3 cm in greatest axial dimensions. Pressure bandage present just below this level. H yperdense blood dissects along the groin inferior to this, with no other discrete collections. [id number] cardiomegaly. No suspicious findings in the lung bases. The liver again demonstrates nodular contour suggesting cirrhosis. Adrenal glands, spleen, and pancre as show no suspicious findings. Gallbladder and biliary tree are also without suspicious finding. Lobulated contour of both kidneys again seen, without suspicious parenchymal findings within limits o f noncontrast technique. No hydroureteronephrosis. Left superior pole 2-3 mm nonobstructing calculus. Bilateral hypoattenuating cortical lesions suggestive of cysts, probably stable allowing for differe nces in technique. No dilated bowel loops or bowel wall thickening. No free air, free fluid or inflammatory stranding. N o hernia, mass or bulky lymphadenopathy. The urinary bladder is without significant finding. No suspicious bony findings. Deformity of the left pubic bone again seen, suggesting healed fracture. IMPRESSION: Hyperdense ill-defined hematoma measuring 7.3 x 4.4 cm along the lower right anterior ab dominal wall and groin. Pressure bandage present just below this level. Nonobstructing left upper pole 2-3 mm calculus. Stigmata of cirrhosis and other incidental findings as above.
[2023-11-20 08:43] LABS: Absolute Basophils 0.1 K/uL (0-0.5); Absolute Lymphocytes (CBC) 0.9 K/uL (0.7-4.9); Basophils % 0.6 % (0-1.3); Hematocrit 30.1 % (36.0-45.0); Lymphocytes % 8.7 % (15.3-44.8); MCV 84.1 fL (80-100); MPV 7.5 fL (7.6-11.3); Platelets 271 thou/uL (152-406); RBC Red Blood Cell Count 3.58 M/uL (3.86-4.86)
[2023-11-20 08:55] LABS: Anion Gap 6.7 mEq/L (5.0-15.0); Potassium 3.7 mEq/L (3.5-5.1)
[2023-11-20 09:07] VITALS: TEMP 98.5
[2023-11-20 09:37] VITALS: O2SAT 99
[2023-11-20 13:12] VITALS: BP 105/71
--- NOTE | 2023-11-20 13:19 | RAD REPORT ---
EXAM DESCRIPTION: US - Extremity Nonvascular Complete - 11/20/2023 12:54 pm CLINICAL HISTORY: hematoma to rt groin? COMPARISON: Abdomen Pelvis Wo Contrast dated 11/19/2023; Extremity Venous Uni Ltd dated 01/31/2022; A bdomen Pelvis W Contrast dated 09/17/2023 FINDINGS: Focused ultrasound of the right groin. Complex mixed echogenic structure in the right inguinal region measuring 3.9 x 2.5 cm. There is a rou nded area that has flow measuring 1. X 1.7 cm and appears connected with a deeper vascular structure. There is a second structure in the right groin measuring 1.9 by 1 cm it has the appearance of an enla rged lymph node. IMPRESSION: Pseudoaneurysm strongly suspected at the vascular access site in the right groin. Surrou nding hematoma is present. Nonspecific enlarged right inguinal lymph node is probably reactive.
--- NOTE | 2023-11-20 16:06 | PN ---
Date of Progress Note: 11/20/2023 Subjective: Patient was seen this morning for followup. No new complaints or problems reported by h er. Lying in bed, not in distress. Objective: Vital signs: Reviewed. HEENT: Unremarkable. Lungs: Clear to auscultation. Heart: Sounds normal. Abdomen: Soft. Bowel sounds normal. No guarding, rigidity, distention. : Right groin area has hematoma and this swelling appears smaller today than yesterday, but more t jia today than yesterday. Overlying skin has some bluish discoloration in some areas. Extremities: No leg edema. Laboratory Data: CBC and chemistry done today, results reviewed. Impression: 1.Hematoma, right groin, post cardiac cath. 2.Coronary artery disease. 3.Chronic diastolic heart failure, with acute exacerbation. 4.Hypertension. 5.Anemia. Plan: We will go ahead and continue current medication. Patient is on aspirin and Plavix for her co ronary artery disease as well as after her Watchman procedure. She is on this dual anti-platelet the rapy. We will continue that. I have asked nursing staff to clarify that with fund development manager regarding anti-platelet therapy also. Hemoglobin has remained stable. Renal function is stable. Yesterday, patient had a CAT scan of abdomen and pelvis done showing this hematoma in the right groin area. No other acute findings. Today, fund development manager has ordered vascular ultrasound. After that, we will see if she can go home or not. LUIS/MODL Voice ID: [id number] Report ID: [id number]
--- NOTE | 2023-11-20 16:07 | P.PN ---
Subjective Date of Service: 11/20/23 Primary Care Provider: Dr. Linda Chief Complaint: a. fib RVR, CHF, COPD, Elevated trop Subjective: No new changes Review of Systems 10-point ROS is otherwise unremarkable Physical Examination - Vital Signs Temperature: 98.5 F Blood Pressure: 105/71 Pulse: 107 Respirations: 16 Pulse Ox (%): 97 - Physical Exam General: Alert, Oriented x3 Neck: Supple Respiratory: Clear to auscultation bilaterally, Crackles/rales Cardiovascular: Edema, Irregular heart rate/rhythm Gastrointestinal: Normal bowel sounds Assessment And Plan - Current Problems (Diagnosis) (1) Acute on chronic diastolic heart failure Current Visit: Yes Status: Acute Plan: patient had a right heart cath done today that shows RA pressure of 18 mmHg, PA mean 33 mmHg and wedge of 16 mmHg which indicate elevated right and left filling pressures. continue with Laix 40 mg IV BID, may switch to lasix 40 mg po BID if patient is discharged. Continue to monitor input and output. correct electrolytes fluid restriction. (2) Atrial fibrillation with rapid ventricular response Current Visit: Yes Status: Acute Plan: Please switch to amiodarone 200 mg po BID Continue Toprol XL 50 mg po BID in am patient is s/p watchman so continue ASA and Plavix. (3) CAD (coronary artery disease), hoh coronary artery Current Visit: Yes Status: Acute Plan: repeated coronary angiogram shows mild to moderate CAD with patent stents. continue medical management. (4) Hematoma Current Visit: Yes Status: Acute Plan: Patient had a large hematoma after coronary angiogram, closure was manual compression due to significant calcification of RCFA, patient had a CT scan done that shows hematoma and US shows possible pseudoaneurysm. plan is to get US duplex to measure neck of aneurysm and intervene accordingly. please place sand bag on patient groin meanwhile.
--- NOTE | 2023-11-20 16:29 | RAD REPORT ---
EXAM DESCRIPTION: US - Lower Extremity Artery Uni Ltd - 11/20/2023 4:13 pm CLINICAL HISTORY: CHECK NECK OF PSEUDO COMPARISON: Lower Extremity Arterial Bilat dated 08/19/2022 FINDINGS: Color Doppler, grayscale, and spectral analysis was performed. Again noted is pseudoaneurysm arising from the right common femoral artery. The neck of the pseudoane urysm measures approximately 1 cm. The aneurysm measures 4 cm in maximal dimension . Biphasic flow present within the common femoral artery, superficial femoral artery, and popliteal art giovanni. The posterior tibial artery is occluded. The dorsalis pedis has monophasic flow. IMPRESSION: 1. 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 Trevizo by Dr. Dent at 1620 on 11/20/23 2. Occluded posterior tibial artery and monophasic flow in the dorsalis pedis artery. The more proxim al vessels have multiphasic flow.
--- NOTE | 2023-11-22 10:13 | DS ---
Date of Discharge: 11/20/2023 Disposition: Discharged to go home. Physical Examination: HEENT: Unremarkable. Lungs: Clear to auscultation. Heart: Sounds normal. Abdomen: Soft. Bowel sounds normal. No guarding, rigidity, distention. Right groin has a small ar ea of hematoma, tender to touch with overlying skin bluish in color. Extremities: No leg edema. Laboratory Data: Last CBC today; white count 9.9, hemoglobin 9.9, and a platelet count of 271. Upon admission on 11/13/2023, white count was 9.5, hemoglobin 10.6, platelets 279. For chemistry, today sodium 135, potassium 3.7, chloride 102, bicarb 30, BUN 27, creatinine 1.10, glucose 113. Upon admis zana on 11/13/2023, sodium 139, potassium 4.6, chloride 111, bicarb 25, BUN 26, creatinine 1.19, gluc ose 128. Her initial troponin was 263.6, second troponin 221.4, third troponin 248.6 and last tropon in 264.8. TSH was 8.920. AST 40, ALT 44, alkaline phosphatase 155. Discharge Medications And Instructions: 1.Continue all prior home medication except following changes: a.Amiodarone 200 mg, take 2 tablets by mouth 2 times a day for 2 days, then 1 tablet by mouth daily. b.Stop carvedilol and stop diltiazem. c.Start metoprolol succinate 50 mg, take 1 tablet by mouth 2 times a day. d.Start Eliquis 2.5 mg. take 1 tablet by mouth 2 times a day. e.Stop Plavix, which is clopidogrel. f.Continue to take aspirin 81 mg by mouth daily. 2.Follow up at my office next week on 11/23/2023 between 8 a.m. to 10 a.m. 3.Follow up with vascular surgeon on Thursday, which is 11/24/2023 and vascular surgeon will call you with appointment. 4.Follow up with Dr. Domingo in 2 weeks. Hospital Course: This is a 78-year-old pleasant female patient who was admitted to the hospital with shortness of breath and weakness. Please see dictated H and P for more information. The patient wa s evaluated in the ER and admitted to hospital with acute exacerbation of chronic diastolic heart zeenat lure. The patient received IV diuretic therapy and Cardiology consultation was obtained. Her cardia c enzymes were abnormal and acetylene plant operator ordered stress test on her and her nuclear stress test came back showing stress-induced ischemia. The patient's symptoms of shortness of breath improved with di uretic therapy. She remained on aspirin and Plavix. The patient had a watchman's procedure done wit [facility] last few months and she remains on dual anti-platelet therapy, aspirin and Plavix, that is what s he continued during this hospitalization. Scraper Tender recommended cardiac cath on her because of he r abnormal stress test and her cardiac cath was done. She actually had a right and left heart cathet erization done by Dr. Trevizo and she did not require any coronary intervention, prior coronary stent that was placed remains patent and no new area of any concern requiring any further percutaneous inte rvention. She developed right groin hematoma after the cardiac cath procedure. Pressure dressing wa s applied. CT scan of the abdomen, pelvis showed evidence of large area of hematoma in this right gr oin region and subsequently acetylene plant operator ordered a vascular ultrasound of the right groin, showing ps eudoaneurysm with aneurysm neck of about [address] Trevizo communicated with the vascular [facility] that he works with and vascular surgeon recommended for patient to stop her Plavix and start Kristen bandar 2.5 mg 2 times a day and the patient can go home with outpatient followup with vascular surgeon next week on Thursday, which is November 24, [address] Trevizo has forwarded all necessary contact info rmation to vascular surgeon's office who will call patient for appointment for Thursday. All these details were discussed with the patient's daughter today on day of discharge when I called her. Final Diagnoses: 1.Congestive heart failure, chronic, diastolic, with acute exacerbation. 2.Coronary artery disease. 3.Peripheral vascular disease. 4.Anemia, chronic, unspecified. 5.Abnormal liver function tests. 6.Right groin hematoma. 7.Pseudoaneurysm, right groin. 8.Hyperlipidemia. 9.Insomnia. 10.Depression. 11.Chronic obstructive pulmonary disease. 12.Hypothyroidism. 13.Gastroesophageal reflux disease. 14.Paroxysmal atrial fibrillation. LUIS/MODL Voice ID: [id number] Report ID: [id number]
== END 2023-11-20 18:07 | disposition home or self-care (01) | DRG 291 ==
LOC: ER 13:30 → 2ND 16:58 → 4TH 11-19 13:42
PROVIDERS: ADMIT Internal Medicine; ATTEND Internal Medicine
DX: I13.0 Hypertensive heart and chronic kidney disease with heart failure and stage 1 through stage 4 chronic kidney disease, or unspecified chronic kidney disease (principal); I50.33 Acute on chronic diastolic (congestive) heart failure; J96.91 Respiratory failure, unspecified with hypoxia; J44.1 Chronic obstructive pulmonary disease with (acute) exacerbation; N18.9 Chronic kidney disease, unspecified; D63.1 Anemia in chronic kidney disease; E03.9 Hypothyroidism, unspecified; E78.00 Pure hypercholesterolemia, unspecified; I73.9 Peripheral vascular disease, unspecified; G47.00 Insomnia, unspecified; I48.0 Paroxysmal atrial fibrillation; F32.A Depression, unspecified; I27.20 Pulmonary hypertension, unspecified; K21.9 Gastro-esophageal reflux disease without esophagitis; I25.2 Old myocardial infarction; S30.1XXA Contusion of abdominal wall, initial encounter; R13.10 Dysphagia, unspecified; R94.5 Abnormal results of liver function studies; R79.89 Other specified abnormal findings of blood chemistry; Z88.5 Allergy status to narcotic agent; Z95.5 Presence of coronary angioplasty implant and graft; Z79.82 Long term (current) use of aspirin; Z90.49 Acquired absence of other specified parts of digestive tract; Z79.02 Long term (current) use of antithrombotics/antiplatelets; Z79.890 Hormone replacement therapy; Z79.899 Other long term (current) drug therapy; Z90.710 Acquired absence of both cervix and uterus; Z87.891 Personal history of nicotine dependence
CPT/HCPCS: 0240U; 36415; 71045; 71046; 74176; 74230; 76881; 76937; 78452; 80048; 80053; 80061; 80076; 83690; 83735; 83880; 84439; 84443; 84484; 85025; 85610; 85730; 87040; 92611; 93005; 93017; 93460; 93926; 97110; 97116; 97161; 97530; 99285; A9500; C1893; C9113; J0461; J1644; J1650; J1940; J2001; J2250; J2785; J3010; J3475; J3535; J7040; J7614; Q9966

== ENCOUNTER 2023-12-10 20:41 | Inpatient (IN) | payer OTHER ==
[2023-12-10 21:45] LABS: Absolute Basophils 0.1 K/uL (0-0.5); Absolute Lymphocytes (CBC) 1.6 K/uL (0.7-4.9); Absolute Monocytes 1.1 K/uL (0.1-1.3); Absolute Neutrophil 8.6 K/uL (1.8-8.0); Hematocrit 30.6 % (36.0-45.0); Hemoglobin 9.8 g/dL (12.0-15.0); MCH 26.6 pg (27.0-35.0); MCV 83.3 fL (80-100); MPV 7.5 fL (7.6-11.3); Monocytes % 9.9 % (3.3-12.3); Neutrophils % 75.1 % (41.7-73.7); Platelets 448 thou/uL (152-406); RBC Red Blood Cell Count 3.67 M/uL (3.86-4.86); Red Cell Distribution Width 18.5 % (12.1-15.2)
[2023-12-10 21:51] LABS: PT Prothrombin Time 18.2 SECONDS (9.5-12.5); Protime INR 1.68
[2023-12-10 22:07] LABS: Albumin 3.1 g/dL (3.4-5.0); Albumin/Globulin Ratio 0.6 (1.1-1.8); Anion Gap 12.1 mEq/L (5.0-15.0); Bilirubin Direct 0.3 mg/dL (0-0.2); Bilirubin Indirect, Calculated 0.3 mg/dL (0.2-0.8); Bilirubin Total 0.6 mg/dL (0.2-1.0); Magnesium 2.2 mg/dL (1.6-2.4); Potassium 4.1 mEq/L (3.5-5.1); Protein, Total 8.1 g/dL (6.4-8.2)
[2023-12-10] MEDS ORDERED: ONDANSETRON 4 MG/2 ML VIAL ONE (22:14)
[2023-12-10] MEDS ORDERED: NA CHLORIDE 0.9% 500 ML ONE (22:14)
[2023-12-10] MEDS ORDERED: NA CHLORIDE 0.9% 1,000 ML ONE (22:15)
--- NOTE | 2023-12-10 22:24 | RAD REPORT ---
EXAM DESCRIPTION: RADChest Single View12/10/2023 10:05 pm CLINICAL HISTORY: CHEST PAIN COMPARISON: Chest Pa And Lat (2 Views) dated 11/16/2023; Chest Single View dated 11/13/2023; Chest Singl e View dated 07/07/2023; Chest Single View dated 03/16/2023 TECHNIQUE: Portable AP view of the chest. FINDINGS: The lungs are clear. Continued partial improvement of central interstitial prominence. No pneumothorax or effusion. Stable cardiomegaly. Sequelae of left atrial appendage prosthesis. Mediast inal Contours are unremarkable. Anterior cervical plating hardware. IMPRESSION: Continued partial improvement of central interstitial prominence may reflect mild centra l congestion. No other acute cardiopulmonary process.
[2023-12-10] MEDS ORDERED: NOREPINEPHRINE BITARTRATE/D5W 4 MG/250 ML BAG IV ONE (23:18)
[2023-12-11] MEDS ORDERED: METOCLOPRAMIDE 10 MG/2mL INJ ONE (00:39)
[2023-12-11] MEDS ORDERED: HYDROMORPHONE HCL 0.5 MG/0.5 ML INJ ONE (00:39)
--- NOTE | 2023-12-11 00:47 | EDPHYS ---
Physician Documentation [facility] Name: Neela Staton Age: 78 yrs Sex: Female : 1945 Arrival Date: 12/10/2023 Time: 20:41 Bed 17 Private MD: ED Physician Rudi Ogden HPI: 12/09 20:52 This 78 yrs old Female presents to ER via Unassigned with complaints of [place]O sp4 sent due to low blood pressure. 12/10 00:38 [facility] 11/18/2023 - 1. Mild to moderate nonobstructive coronary artery disease. 2. sp4 Elevated right and left filling pressures. 3. Low cardiac output and cardiac index. Plan will be to continue aggressive diuresis.. 00:40 78 -year-old female presents with generalized weakness and hypotension starting this sp4 morning. Patient was sent here by her PCP for hypotension and generalized weakness. Patient states she was released from [facility] on 12/08/2023 , after prolonged stay at the [facility]. On 11/30/2023 patient had surgery for right groin hematoma evacuation. Patient has history of congestive heart failure, coronary artery disease, peripheral vascular disease, anemia, abnormal LFT, pseudoaneurysm right groin, hyperlipidemia, insomnia, depression, COPD, hypothyroidism, gastroesophageal reflux, paroxysmal atrial fibrillation. . Historical: - Allergies: 12/09 20:52 Codeine; jj7 - PMHx: 20:52 Atrial fibrillation; GERD; Depression; High Cholesterol; Hypertensive disorder; jj7 Hypothyroidism; Myocardial infarction; neuropathy; - PSHx: 20:52 back sx; Cholecystectomy; Total abdominal hysterectomy; watchman; jj7 - Immunization history:: Client reports receiving the 2nd dose of the Covid vaccine, Flu vaccine is up to date. - Social history:: Smoking status: Patient/guardian denies using tobacco, the patient reports quitting approximately 2 years ago, Patient/guardian denies using alcohol, street drugs, IV drugs. - Family history:: not pertinent. ROS: 12/10 00:40 Constitutional: Negative for fever, chills, and weight loss, positive generalized sp4 weakness, positive nausea, positive hypotension at home All other systems are negative, Exam: 00:40 Constitutional: This is a well developed, well nourished patient who is awake, alert, sp4 frail elderly female who is ill-appearing but not hypotensive Head/Face: Normocephalic, atraumatic. Eyes: Pupils equal round and reactive to light, extra-ocular motions intact. Lids and lashes normal. Conjunctiva and sclera are not injected. Cornea within normal limits. Periorbital areas with no swelling, redness, or edema. ENT: Nares patent. No nasal discharge, no septal abnormalities noted. Tympanic membranes are normal and external auditory canals are clear. Oropharynx with no redness, swelling, or masses, exudates, or evidence of obstruction, uvula midline. Mucous membranes moist. Neck: Trachea midline, no thyromegaly or masses palpated, and no cervical lymphadenopathy. Supple, full range of motion without nuchal rigidity, or vertebral point tenderness. Chest/axilla: Normal chest wall appearance and motion. Nontender with no deformity. No lesions are appreciated. Cardiovascular: Regular rate and rhythm with a normal S1 and S2. No gallops, murmurs, or rubs. Normal PMI, no JVD. No pulse deficits. Respiratory: Lungs have equal breath sounds bilaterally, clear to auscultation and percussion. No rales, rhonchi or wheezes noted. No increased work of breathing, no retractions or nasal flaring. Abdomen/GI: Soft, with normal bowel sounds. No distension or tympany. No guarding or rebound. No evidence of tenderness throughout. Right groin postoperative incision is clean dry and intact. Back: No spinal tenderness. No costovertebral tenderness. Female : Normal external genitalia. Skin: Warm, dry with normal turgor. Normal color with no rashes, no lesions, and no evidence of cellulitis. MS/ Extremity: Pulses equal, no cyanosis. Neurovascular intact. Full, normal range of motion. Neuro: Awake and alert, GCS 15, oriented to person, place, time, and situation. Cranial nerves II-XII grossly intact. Motor strength 5/5 in all extremities. Sensory grossly intact. Psych: Awake, alert, with orientation to person, place and time. Behavior, mood, and affect are within normal limits 00:40 ECG was reviewed by the Attending Physician. EKG at 2048 reveals marked sinus bradycardia, prolonged QT, rate 49 bpm, no ST elevation or depression. Vital Signs: 12/09 20:46 BP 150 / 81; Pulse 50; Resp 16; Temp 97; Pulse Ox 100% ; Weight 63.5 kg; Height 5 ft. 7 [facility] in. ; Pain 7/10; 22:07 BP 118 / 60; Pulse 48; Resp 19 S; Pulse Ox 99% on R/A; lg3 23:13 BP 57 / 34; Pulse 42; Resp 16 S; Pulse Ox 97% on R/A; lg3 23:23 BP 158 / 88; Pulse 58; Resp 20; Pulse Ox 97% on R/A; lg3 23:45 BP 112 / 81; Pulse 53; Resp 19 S; Pulse Ox 96% on R/A; lg3 12/10 01:00 BP 119 / 85; Pulse 63; Resp 17 S; Pulse Ox 97% on R/A; lg3 02:00 BP 128 / 98; Pulse 63; Resp 17 S; Pulse Ox 98% on R/A; lg3 12/09 20:46 Body Mass Index 21.93 (63.50 kg, 170.18 cm) [facility] 12/09 20:46 Pain Scale: Adult [facility] NIH Stroke Scale Scores: 00:40 NIHSS Score: 0 sp4 Jackson Coma Score: 00:40 Eye Response: spontaneous(4). Motor Response: obeys commands(6). Verbal Response: sp4 oriented(5). Total: 15. Procedures: 12/09 23:52 Central Line: the site was prepped with in sterile fashion, a triple lumen catheter was sp4 inserted, in the right internal jugular vein, in 1 attempts. placement was verified, by CXR, by blood return, the site was dressed with 4X4s, Tegaderm, using sterile technique, the patient tolerated the procedure, well, Ultrasound-guided central line placed right internal jugular location with ultrasound guidance. MDM: 20:53 Patient medically screened. sp4 12/10 00:31 ED course: IMPRESSION 1. Findings suggestive of cystitis. 2. Small abdominopelvic free sp4 fluid. Suspected mild periportal edema. 3. Fluid in the right upper quadrant about the duodenal bulb, which could be related to the more global free fluid. However, correlation should be made with clinical concern for potential duodenitis or occult ulcer. No free air or fluid collections. 4. No acute findings in the chest. 5. Resolving right inguinal subcutaneous hematoma, with a small amount of gas now in this region. Correlate for potential recent intervention in this location. Electronically signed by: Su Mayfield MD 12/10/2023 11:14 PM. 00:46 Differential Diagnosis altered mental status, sepsis, flu. Data reviewed: vital signs, sp4 nurses notes, old medical records, lab test result(s), EKG, radiologic studies, CT scan. Consideration of Admission/Observation Patient was admitted/placed on observation. Escalation of care including admission/observation considered. Management of patient was discussed with the following: Hospitalist: Maddi Hope MD . Power Tool Repairer: Chayo BENAVIDEZ . ED course: Patient was given central line for resuscitation secondary to persistent hypotension.. 00:50 ED course: CLINICAL HISTORY: CVL placement. COMPARISON: None. TECHNIQUE: Single viewAP sp4 chest radiograph(s). FINDINGS: Right IJ central venous catheter terminates in the distal SVC. No pulmonary infiltrate identified. No pleural effusion. No pneumothorax. Borderline cardiac size. Aortic calcific atherosclerosis. No significant osseous abnormality. IMPRESSION: Well-positioned right IJ central venous catheter.. 12/09 20:53 Order name: Basic Metabolic Panel; Complete Time: 22:29 sp4 12/09 20:53 Order name: CBC with Diff; Complete Time: 22: sp4 12/09 20:53 Order name: LFT's; Complete Time: 22: sp4 12/09 20:53 Order name: Magnesium; Complete Time: 22: sp4 12/09 20:53 Order name: NT PRO-BNP; Complete Time: 22: sp4 12/09 20:53 Order name: PT-INR; Complete Time: 22:29 sp4 12/09 20:53 Order name: Troponin HS; Complete Time: 22:29 sp4 12/09 21:01 Order name: Urinalysis W/Microscopic; Complete Time: :49 sp4 12/09 23:20 Order name: Lactate w/ 2H reflex if indic.; Complete Time: :49 sp4 12/10 04:42 Order name: Lactate Sepsis 2 HR Follow-up; Complete Time: 07:34 EDMS 12/10 06:15 Order name: Troponin High Sensitivity; Complete Time: 07:34 EDMS 12/10 07:50 Order name: Glucose, Ancillary Testing EDDC 12/09 20:53 Order name: XRAY Chest (1 view); Complete Time: 22:29 [facility] 12/09 22:29 Order name: CT Chest Abdomen Pelvis W/O Contrast [facility] 12/09 23:52 Order name: Chest Single View XRAY [facility] 12/09 20:53 Order name: EKG; Complete Time: 20:54 [facility] 12/10 01:00 Order name: CONS Physician Consult [facility] 12/09 20:53 Order name: Cardiac monitoring; Complete Time: 21:53 [facility] 12/09 20:53 Order name: EKG - Nurse/Tech; Complete Time: 21:53 [facility] 12/09 20:53 Order name: IV Saline Lock; Complete Time: 22:23 [facility] 12/09 20:53 Order name: Labs collected and sent; Complete Time: 21:53 [facility] 12/09 20:53 Order name: O2 Per Protocol; Complete Time: 21:53 [facility] 12/09 20:53 Order name: O2 Sat Monitoring; Complete Time: 21:53 [facility] 12/10 00:34 Order name: Avery; Complete Time: 01:09 [facility] EC:45 Rate is 49 beats/min. Rhythm is regular, Sinus bradycardia. QRS [place] is Normal. PA sp4 interval is normal. QRS interval is normal. QT interval is prolonged. No Q waves. T waves are Normal. No ST changes noted. Clinical impression: No evidence of ischemia. Interpreted by me. Reviewed by me. Administered Medications: 12/09 23:34 Discontinued: ns 0.9% 500 ml IV at bolus once [facility] 22:22 Drug: NS 0.9% IV 1000 ml IV at 125 ml/hr continuous Route: IV; Rate: 125 ml/hr; Site: lg3 right antecubital; 12/10 04:49 Follow up: IV Status: Infusion continued upon admission [facility] 12/09 22:22 Drug: Ondansetron IVP 4 mg IVP once; over 2 minutes Route: IVP; Site: right antecubital;[facility] 12/10 00:22 Follow up: Response: No adverse reaction; Marked relief of symptoms [facility] 12/09 22:22 Drug: NS 0.9% IV 500 ml IV at bolus once Route: IV; Rate: bolus; Site: right lg3 antecubital; 23:34 Follow up: IV Status: Order to discontinue infusion; IV Intake: 250ml lg3 23:15 Drug: Norepinephrine IV 0.1 mcg/kg/min IV at calculated rate See Administration lg3 Instructions; (Standard concentration 4 mg / 250 mL D5W); Recommended max rate 3 mcg/kg/min; Titrate 0.05 mcg/kg/min as often as every 5 minutes to achieve goal (see titration policy); Goal parameter MAP greater than 65 mmHg. Route: IV; Rate: calculated rate; Site: right antecubital; 12/10 04:49 Follow up: IV Status: Infusion continued upon admission lg3 00:52 Drug: HYDROmorphone IVP 0.5 mg IVP once Route: IVP; Site: right antecubital; lg3 04:49 Follow up: Response: No adverse reaction; Marked relief of symptoms; Pain is decreased; lg3 RASS: Alert and Calm (0) 00:52 Drug: metoCLOPramide IVP 10 mg IVP once; over 1 to 2 minutes Route: IVP; Site: right lg3 antecubital; 04:49 Follow up: Response: No adverse reaction lg3 01:27 Drug: Albumin IVPB 25 grams 100 ml IVPB once; (Note: Albumin 25% concentration) Volume: lg3 100 ml; Route: IVPB; Site: right jugular; 02:19 Follow up: Response: No adverse reaction; IV Status: Completed infusion; IV Intake: lg3 100ml 02:18 Drug: Rocephin - Rocephin (cefTRIAXone) IVPB 1 grams IVPB once over 30 mins; (mix in 50 lg3 mL NS) Route: IVPB; Infused Over: 30 mins; Site: right jugular; 02:19 Follow up: Response: No adverse reaction; IV Status: Completed infusion; IV Intake: [id number] Disposition Summary: 12/11/23 00:46 Hospitalization Ordered Notes: Hospitalization Status: Inpatient Admission sp4 Provider: Jayy Oquendo Condition: Serious sp4 Problem: new sp4 Symptoms: have improved sp4 Bed/Room Type: Standard sp4 Location: Intensive Care Unit(12/11/23 08:26) eb Room Assignment: 2-(12/11/23 08:26) eb Diagnosis - Hypotension, unspecified sp4 - Acute combined systolic and diastolic heart failure sp4 - Bradycardia, unspecified sp4 - Right groin postoperative pain, acute systolic heart failure, cardiogenic shock sp4 - UTI/ Urinary tract infection, site not specified sp4 - Acute cystitis sp4 Forms: - Medication Reconciliation Form sp4 - SBAR form sp4 - Leadership Thank You Letter sp4 Critical care time excluding procedures: 00:47 Critical care time: Bedside Care: 36 minutes, Consultation: 12 minutes, Family sp4 Intervention: 12 minutes. Total time: 60 minutes NIH Stroke Scale - NIH Stroke Score Date: 12/11/2023 Time: 00:40 Total Score = 0 10. Dysarthria (speech clarity - read or repeat words) - 0(Normal) 11. Extinction and Inattention (visual/tactile/auditory/spatial/personal) - 0(No abnormality) 1a. Level of Consciousness (LOC) - 0(Alert) 1b. Level of Consciousness (LOC) (Month \T\ Age) - 0(Both) 1c. LOC Commands (Open \T\ Closes Eyes/Clinical Staff Rn) - 0(Both) 2. Best Gaze (Lateral Gaze Paresis) - 0(Normal) 3. Visual Field Loss - 0(No visual loss) 4. Facial Palsy - 0(Normal) 5a. Left Arm: Motor (10-second hold) - 0(No drift) 5b. Right Arm: Motor (10-second hold) - 0(No drift) 6a. Left Leg: Motor (5-second hold - always test supine) - 0(No drift) 6b. Right Leg: Motor (5-second hold - always test supine) - 0(No drift) 7. Limb Ataxia (finger/nose \T\ heel/joseph - test with eyes open) - 0(Absent) 8. Sensory Loss (pinprick arms/legs/face) - 0(Normal) 9. Best Language: Aphasia (description/naming/reading) - 0(No aphasia) Initials: sp4 Signatures: Dispatcher [employer] EDMS Vineet Albarran RN RN Toya Green Lacie, RN RN [email or web address] Vance Conte RN RN [email or web address] Cristal Shane RN RN pf1 Rudi Ogden MD MD sp4 Corrections: (The following items were deleted from the chart) 12/09 22:45 22:05 Abdomen Pelvis W Con+CT.RAD.BRZ ordered. EDMS EDMS 03/29 00:55 00:46 Intensive Care Unit sp4 pf1 00:55 00:46 sp4 pf1 08:24 00:55 BR ER HOLD pf1 ja1 08:24 00:55 ERHOLD- pf1 ja1 08:26 08:24 Intensive Care Unit ja1 eb 08: 08:24 2- ja1 eb
--- NOTE | 2023-12-11 00:47 | ER ---
Nurse's Notes [facility] Name: Neela Staton Age: 78 yrs Sex: Female : 1945 Arrival Date: 12/10/2023 Time: 20:41 Bed 17 Private MD: Diagnosis: Hypotension, unspecified;Acute combined systolic and diastolic heart failure;Bradycardia, unspecified;Right groin postoperative pain, acute systolic heart failure, cardiogenic shock;UTI/ Urinary tract infection, site not specified;Acute cystitis Presentation: 12/09 20:46 Chief complaint: Patient's son or daughter states: LOW BP ALL DAY TODAY. DR OQUENDO TOLD jj7 THEM TO BRING HER TO THE ER. JUST STARTED HAVING ABD PAIN IN LOBBY. Coronavirus screen: At this time, the client does not indicate any symptoms associated with coronavirus-19. Ebola Screen: No symptoms or risks identified at this time. Initial Sepsis Screen: Does the patient meet any 2 criteria? No. Patient's initial sepsis screen is negative. Does the patient have a suspected source of infection? No. Patient's initial sepsis screen is negative. Risk Assessment: Do you want to hurt yourself or someone else? Patient reports no desire to harm self or others. Onset of symptoms was December 10, 2023. 20:46 Method Of Arrival: Wheelchair j 20:46 Acuity: BETHANY 3 jj7 Triage Assessment: 20:52 General: Appears in no apparent distress. uncomfortable, Behavior is calm, cooperative, jj7 appropriate for age. Pain: Complains of pain in suprapubic area, right lower quadrant and left lower quadrant Pain currently is 7 out of 10 on a pain scale. Historical: - Allergies: 20:52 Codeine; jj7 - PMHx: 20:52 Atrial fibrillation; GERD; Depression; High Cholesterol; Hypertensive disorder; jj7 Hypothyroidism; Myocardial infarction; neuropathy; - PSHx: 20:52 back sx; Cholecystectomy; Total abdominal hysterectomy; watchman; jj7 - Immunization history:: Client reports receiving the 2nd dose of the Covid vaccine, Flu vaccine is up to date. - Social history:: Smoking status: Patient/guardian denies using tobacco, the patient reports quitting approximately 2 years ago, Patient/guardian denies using alcohol, street drugs, IV drugs. - Family history:: not pertinent. Screenin:07 [facility] ED Fall Risk Assessment (Adult) History of falling in the last 3 months, lg3 including since admission No falls in past 3 months (0 pts). Abuse screen: Denies threats or abuse. Denies injuries from another. Nutritional screening: No deficits noted. Tuberculosis screening: No symptoms or risk factors identified. Assessment: 22:07 General: Appears in no apparent distress. comfortable, Behavior is calm, cooperative. lg3 Pain: Complains of pain in abdomen Pain does not radiate. Pain currently is 3 out of 10 on a pain scale. Neuro: No deficits noted. Wade Agitation-Sedation Scale (RASS): 0 - Alert and Calm Level of Consciousness is awake, alert, obeys commands, Oriented to person, place, time, situation. Cardiovascular: No deficits noted. Denies chest pain, shortness of breath, Capillary refill < 3 seconds Clubbing of nail beds is absent JVD is absent Patient's skin is warm and dry. Rhythm is sinus bradycardia. Respiratory: No deficits noted. Airway is patent Respiratory effort is even, unlabored, Respiratory pattern is regular, symmetrical, Breath sounds are clear bilaterally. GI: No deficits noted. Abdomen is flat, non-distended, Reports lower abdominal pain, upper abdominal pain. : No deficits noted. No signs and/or symptoms were reported regarding the genitourinary system. EENT: No deficits noted. No signs and/or symptoms were reported regarding the EENT system. Derm: No deficits noted. No signs and/or symptoms reported regarding the dermatologic system. Skin is intact, is healthy with good turgor, Skin is dry, Skin is normal, Skin temperature is warm. Musculoskeletal: No deficits noted. No signs and/or symptoms reported regarding the musculoskeletal system. Circulation, motion, and sensation intact. Range of motion: intact in all extremities. 23:59 Pain: Complains of pain in right leg and left leg. lg3 12/10 03:12 General: daughter Jeanine [phone]. lg3 Vital Signs: 12/09 20:46 BP 150 / 81; Pulse 50; Resp 16; Temp 97; Pulse Ox 100% ; Weight 63.5 kg; Height 5 ft. 7 jj7 in. ; Pain 7/10; 22:07 BP 118 / 60; Pulse 48; Resp 19 S; Pulse Ox 99% on R/A; lg3 23:13 BP 57 / 34; Pulse 42; Resp 16 S; Pulse Ox 97% on R/A; lg3 23:23 BP 158 / 88; Pulse 58; Resp 20; Pulse Ox 97% on R/A; lg3 23:45 BP 112 / 81; Pulse 53; Resp 19 S; Pulse Ox 96% on R/A; lg3 12/10 01:00 BP 119 / 85; Pulse 63; Resp 17 S; Pulse Ox 97% on R/A; lg3 02:00 BP 128 / 98; Pulse 63; Resp 17 S; Pulse Ox 98% on R/A; lg3 12/09 20:46 Body Mass Index 21.93 (63.50 kg, 170.18 cm) [facility] 12/09 20:46 Pain Scale: Adult [facility] Homero Coma Score: 00:40 Eye Response: spontaneous(4). Motor Response: obeys commands(6). Verbal Response: sp4 oriented(5). Total: 15. NIH Stroke Scale Scores: 00:40 NIHSS Score: 0 sp4 ED Course: 12/09 20:41 Patient arrived in ED. jj6 20:52 Rudi Ogden MD is Attending Physician. sp4 20:52 Triage completed. jj7 20:52 Arm band placed on right wrist. jj7 21:53 Zohreh Landin, RN is Primary Nurse. lg3 21:55 Basic Metabolic Panel Sent. kd3 21:55 LFT's Sent. kd3 21:55 Magnesium Sent. kd3 21:55 NT PRO-BNP Sent. kd3 21:55 Troponin HS Sent. kd3 22:07 XRAY Chest (1 view) In Process Unspecified. EDMS 22:07 Patient has correct armband on for positive identification. Placed in gown. Bed in low lg3 position. Call light in reach. Side rails up X 1. Client placed on continuous cardiac and pulse oximetry monitoring. NIBP monitoring applied. cardiac monitor technician on. Door closed. Noise minimized. Warm blanket given. Family accompanied patient. 22:07 Inserted saline lock: 22 gauge in right antecubital area, using aseptic technique. lg3 Blood collected. Patient maintains SpO2 saturation greater than 95% on room air. 22:45 CT Chest Abdomen Pelvis W/O Contrast In Process Unspecified. EDMS 23:58 Assisted provider with central line placement. Set up central line tray. Triple lumen lg3 line placed in right internal jugular. Line placed by Rudi Ogden MD Placement verified by CXR, blood return, Patient tolerated well. 12/10 00:03 One-on-one care X 30 minutes. lg3 00:17 Chest Single View XRAY In Process Unspecified. EDMS 00:45 Jayy Oquendo MD is Hospitalizing Provider. sp4 00:51 Lactate w/ 2H reflex if indic. Sent. lg3 01:10 Avery cath inserted, using sterile technique, 18 Fr., by sc, balloon inflated, to lg3 gravity drainage, urine specimen collected. returned cloudy urine. Patient tolerated well. 01:10 Urinalysis W/Microscopic Sent. rv1 04:43 Notified ED physician of a critical lab result(s). lactate. 3.9. pf1 04:48 Patient admitted, IV remains in place. lg3 06:17 Notified ED physician of a critical lab result(s). troponin 250.7. pf1 Administered Medications: 12/09 23:34 Discontinued: ns 0.9% 500 ml IV at bolus once 3 22:22 Drug: NS 0.9% IV 1000 ml IV at 125 ml/hr continuous Route: IV; Rate: 125 ml/hr; Site: [facility] right antecubital; 12/10 04:49 Follow up: IV Status: Infusion continued upon admission [facility] 12/09 22:22 Drug: Ondansetron IVP 4 mg IVP once; over 2 minutes Route: IVP; Site: right antecubital;3 12/10 00:22 Follow up: Response: No adverse reaction; Marked relief of symptoms 3 12/09 22:22 Drug: NS 0.9% IV 500 ml IV at bolus once Route: IV; Rate: bolus; Site: right lg3 antecubital; 23:34 Follow up: IV Status: Order to discontinue infusion; IV Intake: 250ml 3 23:15 Drug: Norepinephrine IV 0.1 mcg/kg/min IV at calculated rate See Administration lg3 Instructions; (Standard concentration 4 mg / 250 mL D5W); Recommended max rate 3 mcg/kg/min; Titrate 0.05 mcg/kg/min as often as every 5 minutes to achieve goal (see titration policy); Goal parameter MAP greater than 65 mmHg. Route: IV; Rate: calculated rate; Site: right antecubital; 12/10 04:49 Follow up: IV Status: Infusion continued upon admission lg3 00:52 Drug: HYDROmorphone IVP 0.5 mg IVP once Route: IVP; Site: right antecubital; lg3 04:49 Follow up: Response: No adverse reaction; Marked relief of symptoms; Pain is decreased; lg3 RASS: Alert and Calm (0) 00:52 Drug: metoCLOPramide IVP 10 mg IVP once; over 1 to 2 minutes Route: IVP; Site: right lg3 antecubital; 04:49 Follow up: Response: No adverse reaction lg3 01:27 Drug: Albumin IVPB 25 grams 100 ml IVPB once; (Note: Albumin 25% concentration) Volume: lg3 100 ml; Route: IVPB; Site: right jugular; 02:19 Follow up: Response: No adverse reaction; IV Status: Completed infusion; IV Intake: lg3 100ml 02:18 Drug: Rocephin - Rocephin (cefTRIAXone) IVPB 1 grams IVPB once over 30 mins; (mix in 50 lg3 mL NS) Route: IVPB; Infused Over: 30 mins; Site: right jugular; 02:19 Follow up: Response: No adverse reaction; IV Status: Completed infusion; IV Intake: [id number] Medication: 04:49 VIS not applicable for this client. lg3 Intake: 12/09 23:34 IV: 250ml; Total: 250ml. lg3 12/10 02:19 IV: 100ml; Total: 350ml. lg3 02:19 IV: 10ml; Total: 360ml. lg3 Outcome: 00:46 Decision to Hospitalize by Provider. sp4 04:48 Admitted to ER Hold. Please see [facility] for further documentation. lg3 04:48 Condition: stable 04:48 Instructed on the need for admit, 09:04 Patient left the ED. eb NIH Stroke Scale - NIH Stroke Score Date: 12/11/2023 Time: 00:40 Total Score = 0 10. Dysarthria (speech clarity - read or repeat words) - 0(Normal) 11. Extinction and Inattention (visual/tactile/auditory/spatial/personal) - 0(No abnormality) 1a. Level of Consciousness (LOC) - 0(Alert) 1b. Level of Consciousness (LOC) (Month \T\ Age) - 0(Both) 1c. LOC Commands (Open \T\ Closes Eyes/Helicopter Specialist) - 0(Both) 2. Best Gaze (Lateral Gaze Paresis) - 0(Normal) 3. Visual Field Loss - 0(No visual loss) 4. Facial Palsy - 0(Normal) 5a. Left Arm: Motor (10-second hold) - 0(No drift) 5b. Right Arm: Motor (10-second hold) - 0(No drift) 6a. Left Leg: Motor (5-second hold - always test supine) - 0(No drift) 6b. Right Leg: Motor (5-second hold - always test supine) - 0(No drift) 7. Limb Ataxia (finger/nose \T\ heel/joseph - test with eyes open) - 0(Absent) 8. Sensory Loss (pinprick arms/legs/face) - 0(Normal) 9. Best Language: Aphasia (description/naming/reading) - 0(No aphasia) Initials: sp4 Signatures: Dispatcher [employer] EDToya Harmon Lacie RN RN lg3 Lulu Delacruz jj6 Fatou Sosa RN RN kd3 Vance Conte RN RN jj7 Cristal Shane RN RN pf1 Meredith Das1 Rudi Ogden MD MD sp4
[2023-12-11] MEDS ORDERED: ALBUMIN HUMAN 25% 100 ML IV ONE (01:12)
[2023-12-11 01:39] LABS: Specific Gravity 1.015 (1.005-1.030); Sqamous Epithelial None Seen /HPF (None Seen); Urine Bacteria None Seen /HPF (<20); Urine Bilirubin NEGATIVE (Negative); Urine Blood 3+ (OVER) (Negative); Urine Clarity Extremely Turbid (Clear); Urine Color Orange (Yellow); Urine Culture Reflex Order REFLEXED; Urine Glucose NEGATIVE (Negative); Urine Ketones NEGATIVE (Negative); Urine Micro Reflex YN NO BILL MICROSCOPIC; Urine Mucus 1+ /HPF (None Seen); Urine Nitrite NEGATIVE (Negative); Urine Protein 3+ (Negative); Urine RBC >50 /HPF (None Seen); Urine Urobilinogen Normal (Normal); Urine WBC >50 /HPF (<5); Urine WBC Clump Many /HPF (None Seen); Urine Yeast (Budding) Few /HPF (None Seen)
[2023-12-11] MEDS ORDERED: NOREPINEPHRINE BITARTRATE/D5W 4 MG/250 ML BAG IV ONE ×3 (02:12→07:12)
[2023-12-11] MEDS ORDERED: CEFTRIAXONE 1000 MG/VIAL ONE (02:12)
[2023-12-11] MEDS ORDERED: ALBUTEROL 2.5 MG/3 ML NEB SOL NEB PRN (04:00)
[2023-12-11] MEDS ORDERED: DOBUTAMINE 250 MG/250 ML BAG IV SCH (04:00)
[2023-12-11] MEDS: NOREPINEPHRINE 4 MG in D5W 250 ML IV SCH (04:20)
[2023-12-11] MEDS: NA CHLORIDE 0.9% 1,000 ML IV SCH (04:44)
[2023-12-11] MEDS ORDERED: HYDROCODONE/APAP 10/325 TAB ONE ×3 (05:31→17:39)
[2023-12-11] MEDS: HYDROCODONE/APAP 10/325 TAB PO PRN (05:33)
[2023-12-11] MEDS ORDERED: NA CHLORIDE 0.9% 1,000 ML ONE (07:12)
[2023-12-11] MEDS ORDERED: FUROSEMIDE 40 MG/4 ML VIAL ONE ×2 (07:43→15:50)
[2023-12-11] MEDS ORDERED: AMIODARONE HCL 200 MG TAB ONE ×2 (07:43→10:29)
[2023-12-11] MEDS: FUROSEMIDE 40 MG/4 ML VIAL IV SCH (08:04)
[2023-12-11] MEDS: AMIODARONE HCL 200 MG TAB PO SCH ×2 (08:04→10:35)
[2023-12-11] MEDS ORDERED: HOME MED 1 EA UNK (Duloxetine Hcl [Cymbalta] 60 MG Capsule.Dr) PO SCH (09:00)
[2023-12-11] MEDS: DULERA 200/5 (MOMETASONE/FORMOTEROL) INHALER IH SCH (09:00)
[2023-12-11] MEDS ORDERED: HOME MED 1 EA UNK (Omeprazole [Prilosec] 40 MG Capsule.Dr) PO SCH (09:00)
[2023-12-11] MEDS: HOME MED (Fluticasone/Umeclidin/Vilanter [Trelegy Ellipta 100-62.5-25] Blst.W.Dev IH SCH (09:00)
[2023-12-11] MEDS ORDERED: HOME MED 1 EA UNK (Magnesium [Magnesium Gluconate] 200 MG Tablet) PO SCH (09:00)
[2023-12-11] MEDS ORDERED: D5W 0 ML IV ONE (09:15)
[2023-12-11] MEDS ORDERED: NOREPINEPHRINE 4 MG/4 ML VIAL ONE (09:15)
[2023-12-11] MEDS ORDERED: ONDANSETRON 4 MG/2 ML VIAL ONE (09:16)
[2023-12-11] MEDS: NOREPINEPHRINE 8 MG in D5W 250 ML IV SCH (09:39)
[2023-12-11] MEDS: MAGNESIUM OXIDE 400 MG TAB PO SCH (10:00)
[2023-12-11] MEDS ORDERED: DULOXETINE 30 MG CAP PO ONE (10:29)
[2023-12-11] MEDS ORDERED: MAGNESIUM OXIDE 400 MG TAB ONE (10:29)
[2023-12-11] MEDS: PANTOPRAZOLE 40MG TABLET PO SCH (10:35)
[2023-12-11] MEDS: DULOXETINE 30 MG CAP PO SCH (10:35)
[2023-12-11] MEDS: CEFTRIAXONE 1,000 MG in NA CHLORIDE 0.9% 50 ML IVPB SCH (10:35)
[2023-12-11] MEDS: ASPIRIN 81 MG CHEWABLE TABLET PO SCH (10:35)
[2023-12-11] MEDS: APIXABAN 2.5 MG TABLET PO SCH (10:35)
[2023-12-11 10:55] LABS: Arterial Blood Carboxyhemoglob 1.3 % (0-1.5); Blood Gas Oxyhemoglobin 94.3 % (94-97); Blood Gas THB 9.4 g/dl (12-18); Blood O2 Saturation 97.1 % (92-98.5)
--- NOTE | 2023-12-11 11:12 | HP ---
Date of Admission: 12/11/2023 Chief Complaint: Low blood pressure. History Of Present Illness: This is a 78-year-old pleasant female patient, who was at a hospital in [facility] for right groin pseudoaneurysm, for which she had surgery done and after few days of hospitalization, she came home this week on Thursday, which is December 08, 2023. Yesterday evening, the patient's daughter contacted me and informed me that the patient's blood pressure was running low and it was in range of 70 to 75 systolic blood pressure. No vomiting or diarrhea except she had 1 episode of vomiting and diarrhea, but no other problems. No blood in stool or black stool. No fever, chills. No abdominal pain. No chest pain. No shortness of breath. With this concern about low blood pressure, daughter was advised to bring the patient to the emergency room. After she was evaluated in the emergency room, she was admitted to the hospital to intensive care unit. The patient was started on norepinephrine for her hypotension and this morning when I saw her, she has remained hemodynamically very stable. Allergies: TO CODEINE. Review of Systems: Cardiovascular: As mentioned above. All other systems reviewed and negative. Medications: List reviewed. Past Medical History: Significant for hypothyroidism, COPD, hypertension, hyperlipidemia, coronary artery disease, paroxysmal atrial fibrillation, aortic atherosclerosis, peripheral vascular disease, gastroesophageal reflux disease, kidney stone, osteoarthritis at multiple sites, anemia, anxiety, hypokalemia, insomnia, hypomagnesemia. Past Surgical History: Coronary artery stent placement on December 18, 2021, Watchman's procedure on november 20, [address] Domingo, right leg stent placement May 2021, left leg stent placement 2000, cholecystectomy, hysterectomy, back surgery, cervical spine surgery, repair of right common femoral artery pseudoaneurysm in November 2023. Family History: Father had heart disease. Mother had diabetes. Social History: Prior history of smoking, alcohol use negative. Physical Examination: Vital Signs: Temperature 97.5, pulse 64, respiratory rate 18, blood pressure 116/85, oxygen saturation 95%. General: Awake, alert, oriented, not in distress. HEENT: Head atraumatic, normocephalic. Conjunctivae nonerythematous. Sclerae white. Mouth, no thrush or edema noted. Ears/Nose, no mass, lesion, discharge noted. Neck: Supple. No JVD, lymph nodes, bruit, thyromegaly noted. Lungs: Presence of rales noted in lower 1/4 of both lung region. Not using accessory muscles of respiration. Heart: Normal heart sounds, no murmur or gallop. Abdomen: The patient has some bruising on her lower anterior abdominal wall and right groin has surgical scar from recent surgery on the right groin for pseudoaneurysm. There is no evidence of any redness or swelling. Very minimal tenderness over the lateral aspect of this surgical scar with some mild soft tissue induration. No evidence of any fluid collection. Extremities: No leg edema. No calf tenderness. Skin: No rash, ulcer, cellulitis. Lymphatics: No lymph node enlargement in neck, supraclavicular, infraclavicular region. Neuro: No focal neurological deficit. Chest: Unremarkable. External Genitalia: Deferred. Rectal: Deferred. Laboratory Data: White count 11.4, hemoglobin 9.8, platelets 448. Sodium 135, potassium 4.1, chloride 99, bicarb 28, BUN 43, creatinine 2.06, glucose 104, lactic acid 2.8, AST 43, ALT 35, alkaline phosphatase 124. Troponin 230. First set and second set was 250.7 and this troponin level is slightly lower compared to last hospital admission. ProBNP 6620. Urinalysis, leukocyte esterase 500, wbc more than 50, bacteria not seen. Chest x-ray, prominent interstitial lung markings in central region. CAT scan of the chest and abdomen, no acute findings noted. Impression: 1. Congestive heart failure. 2. Acute kidney injury. 3. Coronary artery disease. 4. Urinary tract infection. 5. Hypertension. 6. Hyperlipidemia. 7. Anemia. 8. Peripheral vascular disease. 9. Insomnia. 10. Depression. 11. Chronic obstructive pulmonary disease. 12. Hypothyroidism. 13. Atrial fibrillation. 14. Gastroesophageal reflux disease. Plan: We will go ahead and admit the patient to hospital for further evaluation and management of this problem. The patient is appropriate for inpatient and is expected to spend 2 midnights in the hospital. She is on norepinephrine for hypotension problem. Medically, she is stable. Hemodynamically, she is stable at this point. We will try to wean off this vasopressor medication and after that, we can downgrade her to medical floor. Her cardiac enzymes were abnormal, but they always have been abnormal every time she comes to the hospital and this elevated troponin level is actually lower compared to last time when she was in the hospital. No need for any further intervention on it. Cardiology consultation has been requested. The patient had echocardiogram done during prior admissions and no need for repeating echocardiogram at this point. We will continue her Lasix as per order. No need for any antihypertensive medication, but we will consider to restart at appropriate time which will be metoprolol. She was discharged from outside hospital with instruction to take amiodarone 400 mg twice a day until she has visit with her poultry barn manager, Dr. Domingo, and I have requested Dr. Domingo to evaluate her while she is in the hospital to get his further recommendation. We will continue her statin therapy per order. Continue levothyroxine as per order and for COPD, continue her inhaler and oxygen as per current order. I did call the patient's daughter and talked to her over the phone this morning. The patient received 1 dose of ceftriaxone in the ER yesterday. We will continue that today and follow up on urine culture. LUIS/MODL Voice ID: [id number] MTDD
--- NOTE | 2023-12-11 11:51 | EKG ---
Test Date: 2023-12-10 Test Time: 20:49:22 Study Manager: REBEKA MEASUREMENT RESULTS: Intervals: Rate: 49 WA: 174 QRSD: 88 QT: 554 QTc: 500 Parmele: P: 25 WA: 174 QRS: 57 T: 93 INTERPRETIVE STATEMENTS: Marked sinus bradycardia Nonspecific T wave abnormality Prolonged QT Abnormal ECG Compared to ECG 11/13/2023 15:15:45 Prolonged QT interval now present Atrial fibrillation no longer present T-wave abnormality still present Electronically Signed On 12-11-23 11:48:55 CDT by Ortiz Domingo
[2023-12-11 12:27] LABS: Anion Gap 13.7 mEq/L (5.0-15.0); Potassium 4.7 mEq/L (3.5-5.1)
[2023-12-11 12:30] LABS: Troponin High Sensitivity 348.3 pg/mL (<58.9)
--- NOTE | 2023-12-11 12:57 | CON ---
Date of Consultation: 12/11/2023 Reason For Consultation: Congestive heart failure, questionable cardiogenic shock. History Of Present Illness: This is a 78-year-old female, past medical history of atrial fibrillatio n, diastolic heart failure, coronary artery disease, hypothyroidism, dyslipidemia, and hypertension, presented to the emergency room due to generalized weakness, was extremely hypotensive. She has been vomiting and having diarrhea as well for the past 24 hours. Unable to keep things down. She appare lb had a long hospitalization at [place], discharged recently due to a groin pseudoaneurysm afte r it was repaired by Vascular Surgery. She has shortness of breath on exertion, which is her baselin e. No lower extremity edema. No other complaints. Past Medical History: As outlined above in the HPI. Medications: Refer reconciliation sheet for detailed list. Allergies: CODEINE. Family History: No premature coronary artery disease or cancer. Social History: She does not drink or use any drugs. Review of Systems: All systems reviewed, they were negative except as mentioned in the HPI. Physical Examination: Vital Signs: Reviewed. Head and Neck: Pupils are equal, reactive to light. Intact eye movements. No JVD. No cervical lym phadenopathy. Neck is supple. Thyroid is not enlarged. Lungs: Clear to auscultation bilaterally. No rhonchi, rales, or crackles. No accessory muscle use. Heart: Irregular. No extra sounds. Abdomen: Soft, nontender. Bowel sounds positive. No organomegaly. No masses or hernia. No rigidi ty or rebound. Extremities: No edema, clubbing, cyanosis. Intact pulses. Skin: No rash or nodule. Neurologic: Alert, awake, oriented x3. No acute focal deficits appreciated. Investigations: BUN 43, creatinine 2.06. NT-proBNP is 6620. Troponins 250. Lactic acid was 3.9. Assessment/recommendation: 1.Hypovolemic shock. The patient is definitely behind on fluids and elevated lactate level is due t o that. This is not cardiogenic shock. The patient has normal ejection fraction. Recommend to addie nicholson the echo to evaluate the heart function and careful IV fluid hydration and to evaluate the source of the fluid loss which is a GI tract. Again, this is not a cardiogenic shock. 2.Hypertension. Her blood pressure is in the low side, very low. Due to the hypovolemic shock, rec ommend IV hydration. 3.Acute renal failure due to dehydration, likely recommend IV fluids. Carefully monitor BUN, creati nine, electrolytes, and Nephrology evaluation. 4.Atrial fibrillation. Continue amiodarone and Eliquis. SR/MODL Voice ID: [id number] Report ID: [id number]
--- NOTE | 2023-12-11 15:38 | RAD REPORT ---
EXAM DESCRIPTION: CT abdomen/pelvis WO Contrast COMPARISON: CT abdomen/pelvis from November 19, 2023. TECHNIQUE: CT of the chest, abdomen, and pelvis was performed without contrast. Axial, coronal, and sagittal reconstructions were created and sent to PACS. This exam was performed according to our departmental dose-optimization program, which includes autom ated exposure control, adjustment of the mA and/or kV according to patient size and/or use of iterati ve reconstruction technique. FINDINGS: Lungs and pleura: Mild centrilobular emphysema. Mild interstitial thickening, most promine nt in the basilar lower lobes, favored atelectasis. No pulmonary consolidation. No pleural effusion. No pneumothorax. Mediastinum and neck: No mediastinal lymphadenopathy identified by CT size criteria. Unremarkable joellen earance of the thyroid gland. Cardiac: Mild cardiomegaly. No pericardial effusion. No thoracic aortic aneurysm. Moderate aortic lorena cific atherosclerosis. CT evidence of anemia. Left atrial appendage occlusion device. Hepatobiliary: Suspected mild periportal edema. No concerning hepatic lesion identified. Cholecystect izzy. No pathologic biliary ductal dilatation. Pancreas: Unremarkable. Spleen: Unremarkable. Gastrointestinal: Fluid in the right upper quadrant about the duodenal bulb. No free air is identifie d. No walled off fluid collections. No evidence of bowel obstruction or perienteric inflammation. The appendix is normal. Adrenals: No abnormality identified in either adrenal gland. Renal: No concerning parenchymal abnormality in either kidney. No hydronephrosis or urolithiasis. Bladder/Reproductive: Moderate wall thickening of the urinary bladder with surrounding fat stranding. Hysterectomy. Vascular/Lymphatics: No lymphadenopathy identified by CT size criteria. Abdominal aorta is normal in caliber. Prominent calcific atherosclerosis. Musculoskeletal: Decreased size of the right inguinal subcutaneous hematoma, now with a liquefied joellen earance. There is a small amount of gas in this region. No significant surrounding inflammatory house es. No concerning osseous lesion identified. Fluid / peritoneum: Small abdominopelvic free fluid. No free intraperitoneal air identified. IMPRES RAFIA 1. Findings suggestive of cystitis. 2. Small abdominopelvic free fluid. Suspected mild periportal edema. 3. Fluid in the right upper quadrant about the duodenal bulb, which could be related to the more gl obal free fluid. However, correlation should be made with clinical concern for potential duodenitis o r occult ulcer. No free air or fluid collections. 4. No acute findings in the chest. 5. Resolving right inguinal subcutaneous hematoma, with a small amount of gas now in this region. C orrelate for potential recent intervention in this location. Electronically signed by: Su Mayfield MD 12/10/2023 11:14 PM CDT Due to temporary technical issues with the PACS/Fluency reporting system, reports are being signed by the in house radiologists without review as a courtesy to insure prompt reporting. The interpreting radiologist is fully responsible for the content of the report.
--- NOTE | 2023-12-11 15:46 | RAD REPORT ---
EXAM DESCRIPTION: Chest Single View CLINICAL HISTORY: CVL placement. COMPARISON: None. TECHNIQUE: Single view AP chest radiograph(s). FINDINGS: Right IJ central venous catheter terminates in the distal SVC. No pulmonary infiltrate i dentified. No pleural effusion. No pneumothorax. Borderline cardiac size. Aortic calcific atheroscler osis. No significant osseous abnormality. IMPRESSION: Well-positioned right IJ central venous catheter. Electronically signed by: Su Mayfield MD 12/11/2023 12:33 AM CDT Due to temporary technical issues with the PACS/Fluency reporting system, reports are being signed by the in house radiologists without review as a courtesy to insure prompt reporting. The interpreting radiologist is fully responsible for the content of the report.
[2023-12-11 15:58] LABS: Sqamous Epithelial <5 /HPF (None Seen); Urine Bacteria <20 /HPF (<20); Urine Bilirubin NEGATIVE (Negative); Urine Blood 2+ (Negative); Urine Clarity Extremely Turbid (Clear); Urine Color Yellow (Yellow); Urine Culture Reflex Order REFLEXED; Urine Glucose NEGATIVE (Negative); Urine Ketones NEGATIVE (Negative); Urine Microscopic Reflex YN ORDER UMIC; Urine Mucus Slight /HPF (None Seen); Urine Nitrite NEGATIVE (Negative); Urine Protein 1+ (Negative); Urine RBC >50 /HPF (None Seen); Urine Urobilinogen Normal (Normal); Urine WBC >50 /HPF (<5); Urine WBC Clump Moderate /HPF (None Seen); Urine pH 5.5 (5.0-7.0)
[2023-12-11] MEDS ORDERED: MORPHINE 4 MG/ML SYR ONE (18:42)
[2023-12-11] MEDS: MORPHINE 4 MG/ML SYR IV PRN (18:43)
[2023-12-11] MEDS: FAMOTIDINE 20 MG TAB PO SCH (20:41)
[2023-12-11] MEDS: TRAZODONE 150 MG TAB PO SCH (20:41)
[2023-12-11] MEDS: ATORVASTATIN 80 MG TAB PO SCH (21:00)
[2023-12-12 05:28] LABS: Absolute Basophils 0.1 K/uL (0-0.5); Absolute Lymphocytes (CBC) 1.4 K/uL (0.7-4.9); Absolute Monocytes 1.2 K/uL (0.1-1.3); Absolute Neutrophil 11.5 K/uL (1.8-8.0); Basophils % 0.8 % (0-1.3); Hematocrit 25.5 % (36.0-45.0); Hemoglobin 8.3 g/dL (12.0-15.0); Lymphocytes % 9.7 % (15.3-44.8); MCHC 32.7 g/dL (32.0-36.0); MCV 82.7 fL (80-100); MPV 7.3 fL (7.6-11.3); Monocytes % 8.2 % (3.3-12.3); Neutrophils % 81.3 % (41.7-73.7); Platelets 342 thou/uL (152-406); RBC Red Blood Cell Count 3.08 M/uL (3.86-4.86)
[2023-12-12] MEDS: LEVOTHYROXINE SOD 0.1 MG TAB PO SCH (05:32)
[2023-12-12 05:50] LABS: Anion Gap 11.6 mEq/L (5.0-15.0); Magnesium 2.1 mg/dL (1.6-2.4); Potassium 4.6 mEq/L (3.5-5.1)
[2023-12-12] MEDS ORDERED: MAGNESIUM OXIDE 400 MG TAB ONE (08:08)
[2023-12-12] MEDS ORDERED: AMIODARONE HCL 200 MG TAB ONE (08:08)
[2023-12-12] MEDS ORDERED: DULOXETINE 30 MG CAP PO ONE (08:09)
[2023-12-12] MEDS: HOME MED (Fluticasone/Umeclidin/Vilanter [Trelegy Ellipta 100-62.5-25] Blst.W.Dev IH SCH (08:13)
[2023-12-12] MEDS: SERTRALINE HCL 50 MG TAB PO SCH (08:14)
[2023-12-12] MEDS ORDERED: METOPROLOL TAR 25 MG TAB ONE (09:58)
[2023-12-12] MEDS: METOPROLOL TAR 25 MG TAB PO ONE (10:01)
[2023-12-12] MEDS: NA CHLORIDE 0.9% 1,000 ML IV SCH (10:01)
--- NOTE | 2023-12-12 10:17 | PN ---
Date of Progress Note: 12/12/2023 Subjective: Seen at bedside. Her creatinine is going up. Blood pressure is stabilizing. Review of Systems: No chest pain, shortness of breath, orthopnea, cough. No nausea, vomiting, diarrhea. All other syst ems reviewed are negative. Physical Examination: Vital signs: Reviewed. Head and Neck: Pupils are equal, reactive to light. Intact eye movements. No JVD. No cervical lym phadenopathy. Neck: Supple. Thyroid is not enlarged. Lungs: Clear to auscultation bilaterally. No rhonchi, rales, or crackles. No accessory muscle use. Heart: Irregularly irregular. No extra sounds. Abdomen: Soft, nontender. Bowel sounds positive. No organomegaly. No masses or hernia. No rigidi ty or rebound. Extremities: No edema, clubbing, cyanosis. Intact pulses. Skin: No rash, nausea. Neurologic: Alert, awake, oriented x3. No acute focal deficits appreciated. Investigations: Creatinine today is 2.56. Troponin 351. Assessment/recommendation: 1.Acute renal failure. I believe it is due to dehydration, possible ATN. Recommend gentle fluid hy dration and discontinue Lasix. Discussed with Dr. Linda and recommend Nephrology evaluation. 2.Elevated troponins, demand ischemia. No chest pain. 3.Atrial fibrillation. Rate is borderline elevated. Add metoprolol-XL 25 mg daily and I will monit or the patient. SR/MODL Voice ID: [id number] Report ID: [id number]
--- NOTE | 2023-12-12 11:05 | RAD REPORT ---
EXAM DESCRIPTION: Maria C Single View12/12/2023 10:56 am CLINICAL HISTORY: Chest pain COMPARISON: December 10, 2023 FINDINGS: Mild right upper lobe and mild left lung opacities Heart is moderately enlarged Central venous line in place IMPRESSION: Mild bilateral pulmonary opacities. This probably represents mild interstitial pulmonary edema superimposed over chronic changes
--- NOTE | 2023-12-12 11:06 | PN ---
Date of Progress Note: 12/12/2023 History Of Present Illness: The patient was seen this morning for followup, she was sitting at bedsi de, feeling fine, on nasal cannula oxygen and she is not receiving any vasopressor medication as of l ast night and maintaining adequate blood pressure. Denies any chest pain, shortness of breath. No n ausea, no vomiting. Intake output records reviewed. Vital signs reviewed. Physical Examination: HEENT: Unremarkable. Lungs: Bilateral good equal air entry with presence of rales noted in lower 1/4th of both lung field s, unchanged from yesterday. Not using any accessory muscles of respiration. Heart: Sounds normal. Abdomen: Soft, bowel sounds normal. No guarding, rigidity, tenderness, distention. Extremities: No leg edema. Laboratory Data: White count 14.2, hemoglobin 8.3, platelets 342. Sodium 131, potassium 4.6, chlori de 100, bicarb 24, BUN 51, creatinine 2.56, glucose 102, magnesium 2.1. Impression: 1.Acute kidney injury. 2.Diastolic heart failure. 3.Hypertension. 4.Chronic atrial fibrillation. 5.Chronic anticoagulation therapy. 6.Anemia. 7.Coronary artery disease. Plan: We will go ahead and continue IV fluid normal saline, but instead of 50 mL/hour, we will go ah ead and increase the dose to 75 mL/hour. We will go ahead and discontinue Lasix. Monitor her closel y in ICU for any signs symptoms of fluid overload. At this point she is asymptomatic. Her lung find ings today remains unchanged from yesterday. Unfortunately, renal function has deteriorated and we s trongly suspect that she probably has underlying ATN, acute tubular necrosis likely from hypotension that she had prior to hospital admission. Her hypotension problem has resolved and we would definite ly like to try to see if we can reverse the renal function with a little more gentle IV fluid hydrati on and if we do notice any problems with shortness of breath, hypoxia, etc., then we will go ahead an d give her IV Lasix at that time. We will get a chest x-ray done and she was in sinus rhythm yesterd ay, but overnight she has converted to atrial fibrillation again and she remains on amiodarone 200 mg twice a day and we will add metoprolol 25 mg 2 times a day. Details and plan of treatment discussed with Dr. Domingo and he is in agreement with that. I will see her tomorrow for followup. LUIS/MODL Voice ID: [id number] Report ID: [id number]
[2023-12-12] MEDS ORDERED: HYDROCODONE/APAP 10/325 TAB ONE (13:46)
[2023-12-12] MEDS ORDERED: MORPHINE 4 MG/ML SYR ONE (15:04)
[2023-12-12] MEDS ORDERED: METOPROLOL TAR 25 MG TAB PO SCH ×2 (21:00)
[2023-12-13] MEDS ORDERED: NA CHLORIDE 0.9% 1,000 ML ONE (00:36)
[2023-12-13] MEDS ORDERED: HYDROCODONE/APAP 10/325 TAB ONE ×2 (02:40→08:21)
[2023-12-13 05:14] LABS: Absolute Basophils 0.1 K/uL (0-0.5); Absolute Lymphocytes (CBC) 0.6 K/uL (0.7-4.9); Absolute Monocytes 1.1 K/uL (0.1-1.3); Absolute Neutrophil 9.9 K/uL (1.8-8.0); Basophils % 0.7 % (0-1.3); Hemoglobin 7.5 g/dL (12.0-15.0); MCH 25.9 pg (27.0-35.0); MCHC 31.3 g/dL (32.0-36.0); MCV 82.7 fL (80-100); MPV 7.6 fL (7.6-11.3); Monocytes % 9.1 % (3.3-12.3); Neutrophils % 85.2 % (41.7-73.7); Nucleated Red Blood Cells % 0.1 % (0-0); Platelets 287 thou/uL (152-406); Red Cell Distribution Width 18.2 % (12.1-15.2)
[2023-12-13 05:31] LABS: Anion Gap 11.1 mEq/L (5.0-15.0); Magnesium 2.3 mg/dL (1.6-2.4); Potassium 4.1 mEq/L (3.5-5.1)
[2023-12-13 06:57] LABS: Lymphocytes 3 % (15-42); Segmented Neutrophils 86 % (40-80)
[2023-12-13 06:58] LABS: Differential Total Cells Count 100; Monocytes 11 % (0-10); Platelet Estimate ADEQ
[2023-12-13 07:03] LABS: Blood Morphology Comment NOTED (NOT SEEN); Hypochromasia 1+
[2023-12-13] MEDS ORDERED: AMIODARONE HCL 200 MG TAB ONE ×2 (08:06→20:03)
[2023-12-13] MEDS ORDERED: MAGNESIUM OXIDE 400 MG TAB ONE ×2 (08:06→20:03)
[2023-12-13] MEDS ORDERED: DULOXETINE 30 MG CAP PO ONE ×2 (08:07→20:04)
[2023-12-13] MEDS: DOCUSATE NA 100 MG CAP PO SCH (10:52)
[2023-12-13] MEDS: NA CHLORIDE 0.9% 0 ML ONE (12:59)
--- NOTE | 2023-12-13 13:12 | PN ---
Date of Progress Note: 12/13/2023 Subjective: The patient was seen this morning for followup. She was lying in bed, not in distress. Denies any shortness of breath, chest pain. Vital signs reviewed. Intake, output records reviewed. Physical Examination: HEENT: Unremarkable. Lungs: Bilateral good equal air entry. Clear to auscultation except minimal basal rales noted and l keke findings actually better today than yesterday with less rales in lung yi. Not using any acce ssory muscles of respiration. Heart: Sounds normal. Abdomen: Soft. Bowel sounds normal. No guarding, rigidity, tenderness, distention. Right groin ex am remains unchanged from before. Surgical scar from recent right pseudoaneurysm surgery on the femo ral artery and surgical site shows signs of normal healing. There is no redness, swelling. Extremities: No leg edema. Laboratory Data: White count 11.7, hemoglobin 7.5, platelets 287. Sodium 133, potassium 4.1, chlori de 102, bicarb 24, BUN 54, creatinine 2.26, glucose 112. Urine culture grew klebsiella and it is sen sitive to ceftriaxone that the patient is currently on. Impression: 1.Acute kidney injury. 2.Chronic diastolic heart failure. 3.Coronary artery disease. 4.Hypertension. 5.Anemia, unspecified. 6.Urinary tract infection. 7.Chronic obstructive pulmonary disease. 8.Chronic atrial fibrillation. 9.Chronic anticoagulation therapy. 10.Constipation. Plan: The patient has not had a bowel movement since her hospital admission and we did talk about us ing different medications. She does not want to use milk of magnesia, so a stool softener, Colace 20 0 mg daily was ordered starting today. She did require Levophed for her low blood pressure overnight and as of early this morning now she was able to discontinue that. Yesterday, we did start her on m etoprolol. She got 1 dose and subsequently we had to stop it because she went back into sinus bradyc ardia with heart rate around 45-47 beats per minute and her blood pressure had dropped down, so we di scontinued metoprolol yesterday. We will go ahead and continue current amiodarone, Eliquis as per or gabi. Continue ceftriaxone for urinary tract infection. Renal function has improved. We will contin ue IV fluid, and her hemoglobin has dropped down today, and I will go ahead and give her 1 unit of ND BC blood transfusion and get a posttransfusion hemoglobin. Remove Avery catheter. LUIS/MODL Voice ID: [id number] Report ID: [id number]
[2023-12-13 19:37] LABS: Hematocrit 28.6 % (36.0-45.0); Hemoglobin 9.4 g/dL (12.0-15.0)
[2023-12-13] MEDS ORDERED: FAMOTIDINE 20 MG TAB ONE (20:04)
[2023-12-13] MEDS ORDERED: ZOLPIDEM TARTRATE 5 MG TABLET ONE (20:37)
[2023-12-13] MEDS: ZOLPIDEM TARTRATE 5 MG TABLET PO PRN (20:37)
[2023-12-13] MEDS ORDERED: ALBUTEROL 2.5 MG/3 ML NEB SOL ONE (20:58)
[2023-12-14 05:19] LABS: Absolute Basophils 0.1 K/uL (0-0.5); Absolute Lymphocytes (CBC) 0.8 K/uL (0.7-4.9); Absolute Neutrophil 8.6 K/uL (1.8-8.0); Basophils % 0.5 % (0-1.3); Hematocrit 27.7 % (36.0-45.0); Lymphocytes % 7.3 % (15.3-44.8); MCH 27.4 pg (27.0-35.0); MCHC 32.6 g/dL (32.0-36.0); MPV 7.7 fL (7.6-11.3); Monocytes % 9.5 % (3.3-12.3); Neutrophils % 82.7 % (41.7-73.7); Platelets 251 thou/uL (152-406); RBC Red Blood Cell Count 3.29 M/uL (3.86-4.86); Red Cell Distribution Width 17.4 % (12.1-15.2)
[2023-12-14 05:32] LABS: Anion Gap 9.1 mEq/L (5.0-15.0); Magnesium 2.4 mg/dL (1.6-2.4); Potassium 4.1 mEq/L (3.5-5.1)
[2023-12-14] MEDS ORDERED: CEFTRIAXONE 1000 MG/VIAL ONE ×2 (08:16→20:14)
[2023-12-14] MEDS ORDERED: PANTOPRAZOLE 40MG TABLET PO ONE (08:16)
[2023-12-14] MEDS ORDERED: ASPIRIN 81 MG CHEWABLE TABLET ONE (08:17)
[2023-12-14] MEDS ORDERED: AMIODARONE HCL 200 MG TAB ONE ×2 (08:17→20:15)
[2023-12-14] MEDS ORDERED: MAGNESIUM OXIDE 400 MG TAB ONE ×2 (08:17→20:15)
[2023-12-14] MEDS ORDERED: DULOXETINE 30 MG CAP PO ONE ×2 (08:17→20:15)
[2023-12-14] MEDS ORDERED: APIXABAN 5 MG TABLET ONE (08:17)
[2023-12-14] MEDS ORDERED: NA CHLORIDE 0.9% 100 ML ONE ×2 (08:18→20:16)
[2023-12-14] MEDS ORDERED: POLYETHYL GLY 3350 17 GM/DOSE ONE (08:18)
[2023-12-14] MEDS: POLYETHYL GLY 3350 17 GM/DOSE PO ONE (08:36)
[2023-12-14] MEDS ORDERED: HYDROCODONE/APAP 10/325 TAB ONE (09:59)
[2023-12-14] MEDS ORDERED: AMLODIPINE 5 MG TAB ONE (10:34)
[2023-12-14] MEDS: AMLODIPINE 5 MG TAB PO SCH (10:37)
[2023-12-14] MEDS ORDERED: cloNIDine HCL 0.1 MG TAB ONE ×2 (13:07→17:10)
[2023-12-14] MEDS: cloNIDine HCL 0.1 MG TAB PO PRN (13:11)
--- NOTE | 2023-12-14 13:46 | EKG ---
Test Date: 2023-12-12 Test Time: 06:11:10 Commercial Loan Manager: CMAR MEASUREMENT RESULTS: Intervals: Rate: 99 ND: QRSD: 96 QT: 408 QTc: 523 [place]: P: ND: QRS: 105 T: 79 INTERPRETIVE STATEMENTS: Atrial fibrillation Nonspecific ST abnormality, probably digitalis effect Prolonged QT Abnormal ECG Compared to ECG 12/10/2023 20:49:22 ST (T wave) deviation now present Sinus bradycardia no longer present T-wave abnormality no longer present Electronically Signed On 12-14-23 13:38:08 CDT by Ortiz Domingo
--- NOTE | 2023-12-14 20:05 | PN ---
Date of Progress Note: 12/14/2023 Subjective: The patient was seen this morning for followup. No new complaints or problems reported by the patient. She was lying in bed in ICU, not in distress. Objective: Vital Signs: Reviewed. HEENT: Unremarkable. Lungs: Clear to auscultation. No wheezing. No rales. Heart: Sounds normal. Abdomen: Soft. Bowel sounds normal. No guarding, rigidity, tenderness, distention. Extremities: No leg edema. Impression: 1.Hypertension. 2.Hyperlipidemia. 3.Coronary artery disease. 4.Anemia. 5.Urinary tract infection. Plan: We will continue current antibiotics. Ambulation was encouraged today. The patient's blood p ressure has started to go high and we started her on amlodipine and subsequently added clonidine. IC U nurse was advised to ambulate the patient today and our plan [facility] condition. LUIS/MODL Voice ID: [id number] Report ID: [id number]
[2023-12-14] MEDS: NA CHLORIDE 0.9% 50 ML ONE (20:07)
[2023-12-14] MEDS ORDERED: FAMOTIDINE 20 MG TAB ONE (20:15)
[2023-12-14] MEDS ORDERED: ZOLPIDEM TARTRATE 5 MG TABLET ONE (20:45)
[2023-12-15 05:13] LABS: Absolute Lymphocytes (CBC) 0.5 K/uL (0.7-4.9); Absolute Monocytes 0.9 K/uL (0.1-1.3); Absolute Neutrophil 6.6 K/uL (1.8-8.0); Basophils % 0.5 % (0-1.3); Hematocrit 26.2 % (36.0-45.0); Hemoglobin 8.3 g/dL (12.0-15.0); Lymphocytes % 6.5 % (15.3-44.8); MCH 26.6 pg (27.0-35.0); MCHC 31.7 g/dL (32.0-36.0); MCV 83.8 fL (80-100); MPV 7.6 fL (7.6-11.3); Monocytes % 10.8 % (3.3-12.3); Neutrophils % 82.2 % (41.7-73.7); Nucleated Red Blood Cells % 0.1 % (0-0); Platelets 234 thou/uL (152-406); RBC Red Blood Cell Count 3.12 M/uL (3.86-4.86); Red Cell Distribution Width 17.7 % (12.1-15.2)
[2023-12-15 05:19] LABS: Anion Gap 7.4 mEq/L (5.0-15.0); Potassium 4.4 mEq/L (3.5-5.1)
[2023-12-15] MEDS ORDERED: AMLODIPINE 5 MG TAB PO SCH (09:00)
[2023-12-15] MEDS ORDERED: AMIODARONE HCL 200 MG TAB ONE ×2 (09:13→19:48)
[2023-12-15] MEDS ORDERED: DULOXETINE 30 MG CAP PO ONE ×2 (09:13→19:49)
[2023-12-15] MEDS ORDERED: MAGNESIUM OXIDE 400 MG TAB ONE ×2 (09:13→19:48)
[2023-12-15] MEDS ORDERED: BISACODYL 10 MG RECTAL SUPP ONE (09:14)
[2023-12-15] MEDS: BISACODYL 10 MG RECTAL SUPP PR ONE (09:21)
[2023-12-15] MEDS: AMLODIPINE 5 MG TAB PO SCH (09:21)
[2023-12-15] MEDS ORDERED: HYDROCODONE/APAP 10/325 TAB ONE (09:36)
--- NOTE | 2023-12-15 17:06 | PN ---
Date of Progress Note: 12/15/2023 Subjective: Seen at bedside, doing well. Her creatinine has normalized. Review of Systems: No chest pain, shortness of breath, orthopnea, or cough. No nausea, vomiting, diarrhea. All other s ystems reviewed are negative. Physical Examination: Vital Signs: Reviewed. Head and Neck: Pupils are equal, reactive to light. Intact eye movements. No JVD. No cervical lym phadenopathy. Neck is supple. Thyroid is not enlarged. Lungs: Clear to auscultation bilaterally. No rhonchi, wheezing, or crackles. No accessory muscle u se. Heart: Regular rate and rhythm. No extra sounds. Abdomen: Soft, nontender. Bowel sounds positive. No organomegaly. No masses or hernia. No rigidit y or rebound. Extremities: No edema, clubbing, or cyanosis. Intact pulses. Skin: No rash or nodules. Neuro: Alert, awake, oriented x3. No acute focal deficits appreciated. Investigation: Labs were reviewed. Assessment/recommendations: 1.Atrial fibrillation. She is in sinus. Continue amiodarone and Eliquis. 2.Acute renal failure due to dehydration, off the diuretics. Once the blood pressure is recovered c ompletely, then the low-dose diuretics will be recommended with IV diuretics. 3.Dyslipidemia. Continue statin. 4.Elevated troponin. This is demand ischemia. We will monitor. SR/MODL Voice ID: [id number] Report ID: [id number]
[2023-12-15] MEDS ORDERED: FAMOTIDINE 20 MG TAB ONE (19:49)
[2023-12-15] MEDS ORDERED: NA CHLORIDE 0.9% 100 ML ONE (20:00)
[2023-12-15] MEDS ORDERED: ZOLPIDEM TARTRATE 5 MG TABLET ONE (20:23)
--- NOTE | 2023-12-15 20:57 | PN ---
Date of Progress Note: 12/15/2023 Subjective: The patient was seen this morning for followup. She was sleeping, not in distress. Objective: Vital Signs: Reviewed. HEENT: Unremarkable. Lungs: Clear to auscultation. Heart: Sounds normal. Abdomen: Soft. Bowel sounds normal. No guarding, rigidity, tenderness, distention. Extremities: No leg edema. Laboratory Data: White count 8.1, hemoglobin 8.3, platelets 230. Sodium 137, potassium 4.4, chlorid e 107, bicarb 27, BUN 38, creatinine 1.07, glucose 97. Impression: 1.Hypotension. 2.Acute kidney injury. 3.Atrial fibrillation. 4.Coronary artery disease. 5.Hyperlipidemia. 6.Generalized weakness. 7.Debility. 8.Peripheral vascular disease. Plan: The patient's blood pressure was low this morning, it was 89/59, and since 2 o'clock during ni ghttime, her blood pressure was around this range and subsequently as the day progressed, her blood p ressure has improved. Yesterday, her blood pressure was high that required initiation of antihyperte nsive medication which was amlodipine and clonidine and clonidine is ordered on a p.r.n. basis, but I have changed her amlodipine with instruction to hold if systolic blood pressure less than 130. The patient was only able to walk 6 steps and she has significant debility and generalized weakness and s he will benefit from inpatient rehab if she is able to go to rehab floor, so I have requested social Service consultation to assist with this. I will see her tomorrow for followup. LUIS/MODL Voice ID: [id number] Report ID: [id number]
[2023-12-16] MEDS: NOREPINEPHRINE 4 MG in D5W 250 ML IV SCH (01:00)
[2023-12-16] MEDS ORDERED: NOREPINEPHRINE BITARTRATE/D5W 4 MG/250 ML BAG IV ONE (01:10)
[2023-12-16] MEDS ORDERED: HYDROCODONE/APAP 10/325 TAB ONE ×2 (01:50→06:00)
[2023-12-16 05:24] LABS: Anion Gap 5.5 mEq/L (5.0-15.0); Potassium 4.5 mEq/L (3.5-5.1)
[2023-12-16 05:26] LABS: Absolute Lymphocytes (CBC) 0.6 K/uL (0.7-4.9); Absolute Monocytes 0.9 K/uL (0.1-1.3); Absolute Neutrophil 6.3 K/uL (1.8-8.0); Basophils % 0.3 % (0-1.3); Hematocrit 26.6 % (36.0-45.0); Hemoglobin 8.7 g/dL (12.0-15.0); Lymphocytes % 8.1 % (15.3-44.8); MCH 27.2 pg (27.0-35.0); MCHC 32.7 g/dL (32.0-36.0); MCV 83.3 fL (80-100); MPV 7.5 fL (7.6-11.3); Monocytes % 11.4 % (3.3-12.3); Neutrophils % 80.2 % (41.7-73.7); Nucleated Red Blood Cells % 0.1 % (0-0); Platelets 243 thou/uL (152-406); Red Cell Distribution Width 17.9 % (12.1-15.2)
[2023-12-16] MEDS ORDERED: MAGNESIUM OXIDE 400 MG TAB ONE ×2 (07:45→19:33)
[2023-12-16] MEDS ORDERED: DULOXETINE 30 MG CAP PO ONE ×3 (07:45→20:23)
[2023-12-16] MEDS ORDERED: AMIODARONE HCL 200 MG TAB ONE ×2 (07:45→19:33)
[2023-12-16] MEDS: FLEET ENEMA ADULT PR ONE (08:00)
[2023-12-16] MEDS: POLYETHYL GLY 3350 17 GM/DOSE PO SCH (08:01)
[2023-12-16] MEDS: AMLODIPINE 5 MG TAB PO SCH (08:01)
[2023-12-16] MEDS: DOCUSATE NA/SENNA CONC 1 TAB PO SCH (08:02)
[2023-12-16] MEDS: PNEUMOCOCCAL VACCINE 0.5 ML IMVAC ONE ×2 (12:44→17:37)
[2023-12-16] MEDS: ACETAMINOPHEN 325 MG TABLET PO PRN (12:50)
[2023-12-16] MEDS ORDERED: PNEUMOCOCCAL VACCINE 0.5 ML IMVAC ONE (17:32)
--- NOTE | 2023-12-16 18:08 | P.PN ---
Date of Service: 12/16/23 Date of Progress Note: 12/16/2023 Subjective: Seen at bedside, doing well. Her creatinine has normalized. Review of Systems: No chest pain, shortness of breath, orthopnea, or cough. No nausea, vomiting, diarrhea. All other systems reviewed are negative. Physical Examination: Vital Signs: Reviewed. Head and Neck: Pupils are equal, reactive to light. Intact eye movements. No JVD. No cervical lymphadenopathy. Neck is supple. Thyroid is not enlarged. Lungs: Clear to auscultation bilaterally. No rhonchi, wheezing, or crackles. No accessory muscle use. Heart: Regular rate and rhythm. No extra sounds. Abdomen: Soft, nontender. Bowel sounds positive. No organomegaly. No masses or hernia. No rigidity or rebound. Extremities: No edema, clubbing, or cyanosis. Intact pulses. Skin: No rash or nodules. Neuro: Alert, awake, oriented x3. No acute focal deficits appreciated. Investigation: Labs were reviewed. Assessment/recommendations: 1. Atrial fibrillation. She is in sinus. Continue amiodarone and Eliquis. 2. Acute renal failure due to dehydration, off the diuretics. Once the blood pressure is recovered completely, no signs of volume overload, may consider low dose diuretics in am 3. Dyslipidemia. Continue statin. 4. Elevated troponin. This is demand ischemia. We will monitor.
[2023-12-16] MEDS ORDERED: FAMOTIDINE 20 MG TAB ONE (19:34)
--- NOTE | 2023-12-16 19:54 | PN ---
Date of Progress Note: 12/16/2023 Subjective: The patient was seen this morning for followup. No new complaints or problems reported by the patient. She was lying in bed, not in distress. Last night, her blood pressure dropped down low and nurse from ICU had contacted me and she was started on Levophed drip and she required that on ly for 1 hour. After that, her blood pressure came up and remained throughout the night. She denies any shortness of breath. No chest pain. No nausea or vomiting. Objective: Vital Signs: Reviewed. HEENT: Unremarkable. Lungs: Clear to auscultation. No wheezing. No rales. Heart: Sounds normal. Abdomen: Soft. Bowel sounds normal. No guarding, rigidity, tenderness, distention. Extremities: No leg edema. Laboratory Data: White count 7.9, hemoglobin 8.7, platelets 243. Sodium 136, potassium 4.5, chlorid e 107, bicarb 28, BUN 31, creatinine 0.90, glucose 90. Impression: 1.Congestive heart failure, chronic, diastolic. 2.Acute kidney injury, improved. 3.Coronary artery disease. 4.Hypertension. 5.Hyperlipidemia. 6.Peripheral vascular disease. 7.Chronic atrial fibrillation. Plan: We will go ahead and continue current medication. Amlodipine will be continued, but instead o f 5 mg daily, I will drop it down to 2.5 mg daily, hold if systolic blood pressure less than 140 and we have her on clonidine for p.r.n. use for high blood pressure. We will have school social worker continue to work on trying to see if she gets approval for inpatient rehab. If not, then she will need to go to [facility] facility as she has significant debility and generalized weakness. Her lowest bl ood pressure during nighttime was 72/51 and after that her blood pressure has come up. Last blood pr essure this morning was 160/85. We will continue her anticoagulation therapy which is Eliquis and co ntinue ceftriaxone for urinary tract infection. She has not had a bowel movement in last few days. She reports having 1 bowel movement at least since she has been in hospital. We will discontinue her docusate sodium and instead of that, start her on Senokot-S 2 tablets 2 times a day. Give 1 Fleet e nema today and give MiraLAX twice a day. We will continue her ceftriaxone per order and discontinue hydrocodone because of the constipation problem. LUIS/MODL Voice ID: [id number] Report ID: [id number]
[2023-12-16] MEDS ORDERED: NA CHLORIDE 0.9% 100 ML ONE (20:24)
[2023-12-17 04:46] LABS: Absolute Basophils 0.1 K/uL (0-0.5); Absolute Lymphocytes (CBC) 0.6 K/uL (0.7-4.9); Absolute Monocytes 0.8 K/uL (0.1-1.3); Absolute Neutrophil 10.2 K/uL (1.8-8.0); Basophils % 0.6 % (0-1.3); Hemoglobin 9.5 g/dL (12.0-15.0); Lymphocytes % 5.3 % (15.3-44.8); MCHC 32.9 g/dL (32.0-36.0); MPV 6.9 fL (7.6-11.3); Monocytes % 7.1 % (3.3-12.3); Nucleated Red Blood Cells % 0.1 % (0-0); Platelets 266 thou/uL (152-406); RBC Red Blood Cell Count 3.53 M/uL (3.86-4.86); Red Cell Distribution Width 17.9 % (12.1-15.2)
[2023-12-17] MEDS ORDERED: ACETAMINOPHEN 325 MG TABLET ONE (04:53)
[2023-12-17 05:10] LABS: Anion Gap 6.5 mEq/L (5.0-15.0); Potassium 4.5 mEq/L (3.5-5.1)
[2023-12-17 05:17] LABS: Band Neutrophils 13 % (0-1); Differential Total Cells Count 100; Lymphocytes 4 % (15-42); Monocytes 1 % (0-10); Segmented Neutrophils 82 % (40-80)
[2023-12-17 05:18] LABS: Blood Morphology Comment NOT SEEN (NOT SEEN); Platelet Estimate ADEQ
[2023-12-17] MEDS: FLEET ENEMA ADULT PR ONE (06:25)
[2023-12-17] MEDS ORDERED: MAGNESIUM OXIDE 400 MG TAB ONE ×2 (08:18→20:10)
[2023-12-17] MEDS ORDERED: AMIODARONE HCL 200 MG TAB ONE ×2 (08:18→20:11)
[2023-12-17] MEDS ORDERED: DULOXETINE 30 MG CAP PO ONE ×2 (08:19→20:12)
[2023-12-17] MEDS: FUROSEMIDE 20 MG/ 2ML VIAL IV ONE (08:29)
[2023-12-17] MEDS: LACTULOSE 20 GM/30 ML UCUP PO SCH (08:31)
--- NOTE | 2023-12-17 12:09 | P.PN ---
Subjective Date of Service: 12/17/23 Subjective: No new changes Review of Systems 10-point ROS is otherwise unremarkable Physical Examination - Vital Signs Temperature: 97.2 F Blood Pressure: 139/85 Pulse: 68 Respirations: 20 Pulse Ox (%): 98 - Physical Exam General: Alert, Oriented x3 HEENT: Atraumatic Neck: Supple Respiratory: Crackles/rales Cardiovascular: Normal S1 S2, Edema Gastrointestinal: Normal bowel sounds Assessment And Plan - Current Problems (Diagnosis) (1) Acute on chronic diastolic heart failure Current Visit: No Status: Acute Plan: Metoprolol 25 mg po BID Lasix 20 mg po BID Monitor input and output. correct electrolytes. (2) Atrial fibrillation with rapid ventricular response Current Visit: No Status: Acute Plan: currently in sinus rhythm Continue Amiodarone 200 mg po BID Continue Eliquis 2.5 mg po BID Metoprolol 25 mg po BID (3) HTN (hypertension) Current Visit: No Status: Acute Plan: medications as above.
[2023-12-17] MEDS: METOPROLOL TAR 25 MG TAB PO SCH (17:12)
[2023-12-17] MEDS: FUROSEMIDE 20 MG TABLET PO SCH (17:20)
[2023-12-17] MEDS ORDERED: FAMOTIDINE 20 MG TAB ONE (20:11)
--- NOTE | 2023-12-17 22:36 | PN ---
Date of Progress Note: 12/17/2023 Subjective: The patient was seen this morning for followup. No new complaints or problems reported by her. She was lying in bed, not in distress. Objective: Vital Signs: Reviewed. HEENT: Unremarkable. Lungs: Bilateral good equal air entry. Minimal basal rales noted. Heart: Sounds normal. Abdomen: Soft. Bowel sounds normal. No guarding, rigidity, tenderness, distention. Extremities: No leg edema. Impression: 1.Chronic diastolic heart failure. 2.Generalized weakness. 3.Debility. 4.Anemia. 5.Coronary artery disease. 6.Hypertension. 7.Urinary tract infection. Plan: I have asked nursing staff to remove her central line from the right neck and establish periph eral IV access. Last night, her blood pressure did not drop significantly low. The lowest blood pre ssure during nighttime was 106/67. This morning, her blood pressure was 149/93. Yesterday, she rece ived Senokot, MiraLAX, and Fleet enema and had a small bowel movement. Today, we will repeat the khadijah e treatment for constipation and give her 1 dose of lactulose. Physical therapy to continue to work with her and we are waiting on [employer]'s answer for the patient to go to inpatient rehab. Continue antihypertensive medications, amlodipine and clonidine per order. One dose of Lasix 20 mg I V was ordered this morning and I will see her tomorrow for followup. Details and plan of treatment were discussed with the patient's daughter. LUIS/MODL Voice ID: [id number] Report ID: [id number]
[2023-12-18] MEDS ORDERED: AMIODARONE HCL 200 MG TAB ONE (08:05)
[2023-12-18] MEDS ORDERED: ASPIRIN EC 81 MG TAB PO ONE (08:06)
[2023-12-18] MEDS ORDERED: MAGNESIUM OXIDE 400 MG TAB ONE (08:06)
[2023-12-18] MEDS ORDERED: DULOXETINE 30 MG CAP PO ONE (08:06)
--- NOTE | 2023-12-18 10:43 | RAD REPORT ---
EXAM DESCRIPTION: Maria C Single View12/18/2023 10:09 am CLINICAL HISTORY: Chest pain COMPARISON: December 12, 2023 FINDINGS: Mild bilateral pulmonary opacities Heart remains enlarged COPD IMPRESSION: Mild bilateral pulmonary opacities appear minimally worsened. This may represent mild CH F superimposed over chronic changes
--- NOTE | 2023-12-18 13:32 | PN ---
Date of Progress Note: 12/18/2023 Subjective: Seen by bedside. Doing clinically very well. No chest pain. No shortness of breath. No palpitations. She has been in sinus. Blood pressure is normal and her creatinine normalized. Review of Systems: No chest pain, shortness of breath, orthopnea, cough. No nausea, vomiting, diarrhea. All other syst ems reviewed are negative. Objective: Vital signs: Reviewed. Head and Neck: Pupils are equal, reactive to light. Intact eye movements. No JVD. No cervical lym phadenopathy. Neck is supple. Thyroid is not enlarged. Lungs: Clear to auscultation bilaterally. No rhonchi, wheezing, or crackles. No accessory muscle u se. Heart: Regular rate and rhythm. No extra sounds. Abdomen: Soft, nontender. Bowel sounds positive. No organomegaly. No masses or hernia. No rigidi ty or rebound. Extremities: No edema, clubbing, or cyanosis. Intact pulses. Skin: No rash. No nodule. Neurologic: Alert, awake, oriented x3. No acute focal deficits appreciated. Investigations: BUN 23, creatinine 0.8. White blood cell count is 9.5. Assessment/recommendation: 1.Acute renal failure due to dehydration, resolved. 2.Chronic diastolic heart failure, appears to be euvolemic. Agree with oral Lasix at a low dose. C arefully monitor BUN, creatinine, electrolytes. 3.Atrial fibrillation. She is in sinus. Continue Eliquis and amiodarone. 4.Dyslipidemia. Continue statin. 5.Cardiology will sign off. We will follow the patient on outpatient basis post discharge. SR/MILDREDL Voice ID: [id number] Report ID: [id number]
--- NOTE | 2023-12-18 16:53 | PN ---
Date of Progress Note: 12/18/2023 Subjective: Patient was seen this morning for followup. No new complaints or problems reported by alexia martinez. She was lying in bed. She slept very well last night. Has not had any low blood pressure alexia jay, maintaining adequate oxygenation with nasal cannula oxygen. She did ambulate with physical t herapy yesterday. Objective: Vital Signs: Reviewed. HEENT: Unremarkable. Lungs: Bilateral good equal entry. Presence of basal rales in both lung yi. Not using accessor y muscles of respiration. Heart: Sounds normal. Abdomen: Soft. Bowel sounds normal. No guarding, rigidity, tenderness, distention. Extremities: No leg edema. Impression: 1.Congestive heart failure, chronic, diastolic. 2.Hypertension. 3.Coronary artery disease. 4.Urinary tract infection. 5.Anemia. 6.Generalized weakness. 7.Debility. Plan: We will go ahead and continue current medications. Continue current antibiotic which is ceftr iaxone. Continue amlodipine and clonidine as per order for blood pressure control and we will have P hysical Therapy continue to work with the patient. We are awaiting on insurance company's approval f or patient to go to alf facility and today nurse was advised that we can transfer patient to medical floor as soon as there is a room available with all current orders. Patient had four bow el movements yesterday and one this morning and lactulose actually has helped her better than other s tool softener and laxatives. So with that in mind, we will continue lactulose but we will stop her MiraLA X. LUIS/MODL Voice ID: [id number] Report ID: [id number]
[2023-12-19 04:51] LABS: Absolute Basophils 0.1 K/uL (0-0.5); Absolute Lymphocytes (CBC) 0.9 K/uL (0.7-4.9); Absolute Monocytes 1.1 K/uL (0.1-1.3); Absolute Neutrophil 10.8 K/uL (1.8-8.0); Basophils % 0.4 % (0-1.3); Hemoglobin 9.5 g/dL (12.0-15.0); MCHC 32.9 g/dL (32.0-36.0); MCV 82.1 fL (80-100); MPV 7.7 fL (7.6-11.3); Monocytes % 8.8 % (3.3-12.3); Neutrophils % 83.8 % (41.7-73.7); Nucleated Red Blood Cells % 0.1 % (0-0); Platelets 231 thou/uL (152-406); RBC Red Blood Cell Count 3.53 M/uL (3.86-4.86); Red Cell Distribution Width 18.5 % (12.1-15.2)
[2023-12-19 05:09] LABS: Anion Gap 8.2 mEq/L (5.0-15.0); Potassium 4.2 mEq/L (3.5-5.1)
[2023-12-19] MEDS: LACTULOSE 20 GM/30 ML UCUP PO SCH (09:39)
--- NOTE | 2023-12-19 10:45 | PN ---
Date of Progress Note: 12/19/2023 Subjective: The patient was seen this morning for followup. No new complaints or problems reported by the patient. She was lying in bed, not in distress. Vital signs reviewed. Denies any new compla ints. The patient is out of ICU on the regular medical floor. Physical Examination: Vital Signs: This morning, temperature 99.6, pulse 55, respiratory rate 14, blood pressure 135/67, o xygen saturation 92% on 2 L nasal cannula oxygen. HEENT: Unremarkable. Lungs: Clear to auscultation. No wheezing. No rales. Heart: Sounds normal. Abdomen: Soft. Bowel sounds normal. No guarding, rigidity, tenderness, distention. Extremities: No leg edema. Laboratory Data: White count 12.9, hemoglobin 9.5, platelets 231. Sodium 136, potassium 4.2, chlori de 104, bicarb 28, BUN 18, creatinine 0.82, glucose 101, magnesium 2. Impression: 1.Urinary tract infection. 2.Constipation. 3.Anemia. 4.Chronic diastolic heart failure. 5.Coronary artery disease. 6.Hypertension. 7.Generalized weakness. 8.Debility. Plan: For urinary tract infection, the patient is on ceftriaxone. We will continue that. No need f or further intervention. Anemia problem is stable and at this point no need for blood transfusion. We will continue to monitor her blood work. WBC count is slightly high today. No need for further i ntervention and we will continue to monitor that as well. The patient did respond well to lactulose and will continue lactulose 20 g p.o. daily and we will also go ahead and continue Senokot-S 2 tablet s 2 times a day for constipation. Continue current antihypertensive medication, which is amlodipine and clonidine per order for blood pressure and continue current Eliquis as well as amiodarone for her atrial fibrillation problem. Physical Therapy to continue to work with her. I will see her tomorro w for followup. LUIS/MODL Voice ID: [id number] Report ID: [id number]
--- NOTE | 2023-12-20 12:48 | PN ---
Date of Progress Note: 12/20/2023 Subjective: The patient was seen this morning for followup. No new complaints or problems reported by the patient. She was sleeping, easily arousable, not in any distress. Denies any new complaints. Objective: VITAL SIGNS: This morning, temperature 97.4, pulse 53, respiratory rate 20, blood pressu re 132/58, oxygen saturation 92%. HEENT: Unremarkable. LUNGS: Bilateral basal rales noted today. HEART: Sounds normal. ABDOMEN: Soft. Bowel sounds normal. No guarding, rigidity, tenderness, di stention. EXTREMITIES: No leg edema. Laboratory Data: There were no new labs today. Impression: 1.Coronary artery disease. 2.Hypertension. 3.Chronic atrial fibrillation. 4.Chronic anticoagulation therapy. 5.Generalized weakness. 6.Debility. 7.Chronic diastolic heart failure. Plan: We will go ahead and continue current oral diuretic therapy. Continue anticoagulation therapy with Eliquis. Physical therapy to continue to work with the patient. We are waiting on [facility]'s approval to see if the patient can go to inpatient rehab and hopefully we will know this by tomorrow. Continue current amiodarone and current antihypertensive medication. We will repeat blood work tomorrow morning. LUIS/MODL Voice ID: [id number] Report ID: [id number]
[2023-12-20] MEDS: ALBUTEROL 2.5 MG/3 ML NEB SOL NEB PRN (20:49)
[2023-12-21 06:48] LABS: Absolute Lymphocytes (CBC) 0.7 K/uL (0.7-4.9); Absolute Monocytes 1.1 K/uL (0.1-1.3); Absolute Neutrophil 9.4 K/uL (1.8-8.0); Basophils % 0.3 % (0-1.3); Hematocrit 26.5 % (36.0-45.0); Hemoglobin 8.8 g/dL (12.0-15.0); Lymphocytes % 6.2 % (15.3-44.8); MPV 7.9 fL (7.6-11.3); Monocytes % 10.2 % (3.3-12.3); Neutrophils % 83.3 % (41.7-73.7); Platelets 240 thou/uL (152-406); RBC Red Blood Cell Count 3.24 M/uL (3.86-4.86); Red Cell Distribution Width 18.2 % (12.1-15.2)
[2023-12-21 07:07] LABS: Albumin 2.5 g/dL (3.4-5.0); Albumin/Globulin Ratio 0.6 (1.1-1.8); Anion Gap 9.1 mEq/L (5.0-15.0); Bilirubin Total 0.6 mg/dL (0.2-1.0); Globulin 4.2 g/dL (2.3-3.5); Magnesium 2.1 mg/dL (1.6-2.4); Potassium 4.1 mEq/L (3.5-5.1); Protein, Total 6.7 g/dL (6.4-8.2)
[2023-12-21] MEDS: METOPROLOL TAR 25 MG TAB PO SCH (17:02)
[2023-12-21] MEDS: METOPROLOL TARTRATE 5 MG/5 ML INJ IV ONE (20:10)
--- NOTE | 2023-12-21 23:15 | PN ---
Date of Progress Note: 12/21/2023 Subjective: The patient was seen this morning for followup. She was lying in bed, not in distress. Denies any chest pain, shortness of breath, nausea, vomiting. She had 5 bowel movements yesterday a fter lactulose. Objective: Vital Signs: Reviewed. HEENT: Unremarkable. Lungs: Bilateral good equal air entry. Clear to auscultation. Very minimal basal rales noted. Not using any accessory muscles of respiration. Heart: Sounds normal. Abdomen: Soft. Bowel sounds normal. No guarding, rigidity, tenderness, distention. Extremities: No leg edema. Laboratory Data: White count 11.3, hemoglobin 8.8, platelets 240. Sodium 134, potassium 4.1, chlori de 103, bicarb 26, BUN 25, creatinine 0.91, glucose 109. Liver function tests unremarkable except T 79. Impression: 1.Coronary artery disease. 2.Hypertension. 3.Anemia. 4.Urinary tract infection. 5.Generalized weakness. 6.Debility. 7.Chronic obstructive pulmonary disease. 8.Chronic diastolic heart failure. Plan: The patient is on ceftriaxone and we will stop it after last dose today. We will have [facility] continue to work with the patient for her generalized weakness and debility problem. Pamela nue amiodarone. Continue her anticoagulation therapy. Her heart rate is in the range of 45 to 50 an d we will go ahead and discontinue her metoprolol because of this bradycardia problem. Today, Social Service notified me regarding need for us to go ahead and contact the patient's insurance company to have peer to peer discussion regarding senior care facility placement benefit and I did reach ou t to her insurance company and had to leave a message and [facility] and details were discussed and after all the details were explained to physician at the insurance company, she denied request for inpatient rehab, but she did approve senior care f acility benefit and I did reach out to Social Service and left a message for Social Service to nathalia nicholson this process for the patient to go to senior care facility. Once this arrangement gets comple shubham, the patient will be discharged to go to such facility of her choice and that can happen as early as tomorrow as the patient is medically stable for discharge. I will see her tomorrow for followup. LUIS/MODL Voice ID: [id number] Report ID: [id number]
--- NOTE | 2023-12-22 18:02 | RAD REPORT ---
EXAM DESCRIPTION: RAD - Chest Single View - 12/22/2023 5:56 pm CLINICAL HISTORY: shortness of breath Chest pain. COMPARISON: <Comparisons> FINDINGS: Portable technique limits examination quality. Extensive bilateral pulmonary opacities are present which may represent pulmonary edema or pneumonia. The heart is significantly enlarged. Cervical hardware plate.Aortic atherosclerosis. IMPRESSION: Significant bilateral pulmonary opacities likely representing pulmonary edema or pneumon ia.
[2023-12-22] MEDS: FUROSEMIDE 20 MG/ 2ML VIAL IV ONE (18:34)
--- NOTE | 2023-12-22 19:42 | PN ---
Date of Progress Note: 12/22/2023 Subjective: The patient was seen this morning for followup. No new complaints or problems reported by the patient. She was lying in bed. Denies any new complaints. No chest pain, shortness of breat h overnight. Objective: Vital Signs: Reviewed. HEENT: Unremarkable. Lungs: Clear to auscultation. Heart: Sounds normal. No murmur. No gallop. Abdomen: Soft. Bowel sounds normal. No guarding, rigidity, tenderness, distention. Extremities: No leg edema. Laboratory Data: There were no new labs today. Impression: 1.Chronic diastolic heart failure, with acute exacerbation. 2.Chronic obstructive pulmonary disease. 3.Coronary artery disease. 4.Hypertension. 5.Anemia. 6.Chronic atrial fibrillation. 7.Chronic anticoagulation therapy. Plan: We will go ahead and continue amiodarone, Eliquis. The patient is on oral diuretic therapy, f urosemide, and she was stable until sometime this afternoon. Late afternoon, nurse called and inform ed me that the patient was having some shortness of breath and felt like she was anxious. Her oxygen was increased from 3 to 4 L/minute to 5 to 6 L/minute and when nurse called me, I ordered a stat lisa st x-ray which showed extensive bilateral pulmonary edema type of pattern. She already had received her evening dose of oral Lasix and I ordered IV Lasix x1 dose and starting tomorrow we will give IV L asix instead of oral Lasix. We will repeat blood work tomorrow morning. This is exactly the reason why I argued with insurance company yesterday to try and see if they can approve inpatient rehab inst ead of sending her to shelter facility, but unfortunately, insurance company denied it. LUIS/MODL Voice ID: [id number] Report ID: [id number]
--- NOTE | 2023-12-23 07:52 | RAD REPORT ---
EXAM DESCRIPTION: RAD - Chest Single View - 12/23/2023 7:46 am CLINICAL HISTORY: CHF Chest pain. COMPARISON: Chest Single View dated 12/22/2023; Chest Single View dated 12/18/2023; Chest Single View da hsubham 12/12/2023; Chest Single View dated 12/10/2023 FINDINGS: Portable technique limits examination quality. Extensive bilateral pulmonary opacities are noted, with no significant change since yesterday's study . The heart is moderately enlarged in size. No displaced fractures.Cervical hardware plate. Aortic at herosclerosis. IMPRESSION: Stable chest since 12/22/2023 prior study.
[2023-12-23] MEDS: FUROSEMIDE 20 MG/ 2ML VIAL IV SCH (08:00)
[2023-12-23] MEDS: ALPRAZOLAM 0.25 MG TABLET PO SCH (08:02)
[2023-12-23] MEDS: ENSURE HIGH PROTEIN 237 ML CAN PO SCH (08:03)
[2023-12-23 09:03] LABS: Absolute Basophils 0.1 K/uL (0-0.5); Absolute Lymphocytes (CBC) 0.6 K/uL (0.7-4.9); Absolute Monocytes 1.1 K/uL (0.1-1.3); Absolute Neutrophil 13.8 K/uL (1.8-8.0); Basophils % 0.4 % (0-1.3); Hematocrit 29.8 % (36.0-45.0); Hemoglobin 9.2 g/dL (12.0-15.0); Lymphocytes % 3.7 % (15.3-44.8); MCH 25.7 pg (27.0-35.0); MCHC 30.9 g/dL (32.0-36.0); MCV 83.1 fL (80-100); MPV 7.9 fL (7.6-11.3); Monocytes % 6.9 % (3.3-12.3); Platelets 277 thou/uL (152-406); RBC Red Blood Cell Count 3.59 M/uL (3.86-4.86); Red Cell Distribution Width 18.6 % (12.1-15.2)
[2023-12-23 09:27] LABS: Albumin 2.7 g/dL (3.4-5.0); Albumin/Globulin Ratio 0.6 (1.1-1.8); Anion Gap 11.1 mEq/L (5.0-15.0); Bilirubin Total 0.9 mg/dL (0.2-1.0); Globulin 4.8 g/dL (2.3-3.5); Potassium 4.1 mEq/L (3.5-5.1); Protein, Total 7.5 g/dL (6.4-8.2)
[2023-12-23 10:09] LABS: Anisocytosis 1+; Blood Morphology Comment NOTED (NOT SEEN); Platelet Estimate ADEQ; White Blood Cell Scan OK (OK)
[2023-12-23] MEDS: FUROSEMIDE 40 MG/4 ML VIAL IV ONE (12:02)
[2023-12-23] MEDS: FUROSEMIDE 40 MG/4 ML VIAL IV SCH (20:00)
--- NOTE | 2023-12-23 21:29 | PN ---
Date of Progress Note: 12/23/2023 Subjective: I was asked by Dr. Linda to see the patient because she went into heart failure. Review of Systems: By bedside, she is having significant orthopnea, lower extremity edema, shortness of breath, minimal exertion, and does not have any chest pain, nausea, vomiting, diarrhea. No abdominal pain. No dysur ia, polyuria, urgency. No skin rash or headache. All other systems reviewed, they are negative. Objective: Vital Signs: Reviewed. Head and Neck: Pupils are equal, reactive to light. Intact eye movements. Positive JVD. No cervic al lymphadenopathy. Neck is supple. Thyroid is not enlarged. Lungs: Crackles half the way up bilaterally with slight increased respiratory effort. Heart: Irregular with S3 gallop. Abdomen: Soft, nontender. Bowel sounds positive. No organomegaly. No masses or hernia. No rigidi ty or rebound. Extremities: 1 to 2+ edema bilaterally. No clubbing, cyanosis. Intact pulses. Skin: No rash or nodule. Neuro: Alert, awake, oriented x3. No acute focal deficits appreciated. Investigations: BUN 20, creatinine 0.86, and hemoglobin 9.2. Assessment/recommendation: 1.Acute on chronic diastolic heart failure exacerbation. She is severely fluid overloaded. Start h er on Lasix 40 mg IV q.8 hours. Monitor BUN, creatinine, electrolytes on daily basis and then we carson l cut down on the Lasix as she had response to it and then switch her to her oral dose gradually. 2.Atrial fibrillation. This condition is controlled. Continue current management. 3.Hypertension. Blood pressure is up again. I would avoid adjusting blood pressure medicines as sonia phillips is fluid overloaded. She needs diuresis first and then at that time, if blood pressure continues to be elevated, then adjust medicines. 4.Dyslipidemia. Continue statin. SR/MODL Voice ID: [id number] Report ID: [id number]
[2023-12-23] MEDS: MIRTAZAPINE 15 MG TAB PO SCH (21:53)
--- NOTE | 2023-12-23 23:12 | PN ---
Date of Progress Note: 12/23/2023 Subjective: The patient was seen this morning for followup. No new complaints or problems reported by the patient. She was lying in bed, appears weaker than yesterday morning. Yesterday evening, she started to have problem with shortness of breath. Repeat chest x-ray showed significant bilateral p ulmonary opacities showing pulmonary edema and she was given IV Lasix yesterday evening. She remains on nasal cannula oxygen. This morning, she feels little bit better compared to yesterday evening. Her daughter was with her today as she spend last night with the patient since she was not feeling go od. Objective: Vital Signs: Reviewed. HEENT: Unremarkable. Lungs: Bilateral rales noted scattered all over her lungs. This is new compared to yesterday luis john. Heart: Sounds normal. Abdomen: Soft, bowel sounds normal. No guarding, rigidity, tenderness, distention. Extremities: No leg edema. Laboratory Data: CBC and chemistry results from today reviewed. Chest x-ray still shows extensive b ilateral pulmonary edema pattern, unchanged from yesterday. Impression: 1.Congestive heart failure, chronic, diastolic, with acute exacerbation. 2.Coronary artery disease. 3.Hypertension. 4.Hyperlipidemia. 5.Peripheral vascular disease. 6.Chronic atrial fibrillation. 7.Chronic anticoagulation therapy. 8.Anemia. Plan: We will go ahead and continue IV Lasix per order, 40 mg of Lasix IV x1 dose was ordered after blood work result and chest x-ray results reviewed today and subsequently new car make ready worker evaluated her and ordered Lasix 40 mg IV every 8 hours, which we will continue that with monitoring of her renal fu nction, electrolytes, and intake output. We will repeat blood work tomorrow morning. Continue curre nt anticoagulation therapy. The patient has received adequate number of days of IV antibiotic for ur inary tract infection and ceftriaxone was discontinued. I did talk to the patient this morning in pr esence of her daughter regarding advance directives and she informed me very clearly in the event of cardiopulmonary arrest, she wants everything done, so the patient remained full code. Later, I also communicated with the patient's daughter and informed her that overall the patient's prognosis is alix y poor and the way her condition changed suddenly yesterday, this is my concern that regardless of wh ere the patient is, whether she is at home, in the hospital, on the rehab floor, or in a intermediate , her conditions may change suddenly like that, and if she is outside the hospital, she will end up r equiring frequent visit to emergency room or hospitalization and daughter understands that. I will s ee her tomorrow for followup. LUIS/STEPHANI Voice ID: [id number] Report ID: [id number]
[2023-12-24 05:25] LABS: Anion Gap 9.6 mEq/L (5.0-15.0); Potassium 3.6 mEq/L (3.5-5.1)
[2023-12-24] MEDS: ONDANSETRON 4 MG/2 ML VIAL IV PRN (07:44)
[2023-12-24 08:52] LABS: Absolute Lymphocytes (CBC) 0.4 K/uL (0.7-4.9); Absolute Neutrophil 19.8 K/uL (1.8-8.0); Basophils % 0.7 % (0-1.3); Hemoglobin 9.2 g/dL (12.0-15.0); Lymphocytes % 1.9 % (15.3-44.8); MCH 26.8 pg (27.0-35.0); MCHC 32.8 g/dL (32.0-36.0); MCV 81.8 fL (80-100); MPV 7.8 fL (7.6-11.3); Monocytes % 4.8 % (3.3-12.3); Neutrophils % 92.6 % (41.7-73.7); Platelets 319 thou/uL (152-406); RBC Red Blood Cell Count 3.42 M/uL (3.86-4.86); Red Cell Distribution Width 19.3 % (12.1-15.2)
[2023-12-24 08:53] LABS: Absolute Basophils 0.2 K/uL (0-0.5)
[2023-12-24 09:24] LABS: Blood Morphology Comment NOTED (NOT SEEN); Differential Total Cells Count 100; Lymphocytes 1 % (15-42); Monocytes 4 % (0-10); Platelet Estimate ADEQ; Polychromasia 1+; Segmented Neutrophils 94 % (40-80)
[2023-12-24] MEDS: PIPER TAZO 3.375 GM in NA CHLORIDE 0.9% 100 ML IV SCH (11:58)
--- NOTE | 2023-12-24 15:06 | RAD REPORT ---
EXAM DESCRIPTION: RAD - Chest Single View - 12/24/2023 3:01 pm CLINICAL HISTORY: PICC Line Placement COMPARISON: Chest Single View dated 12/23/2023; Chest Single View dated 12/22/2023; Chest Single View d ated 12/18/2023; Chest Single View dated 12/12/2023 FINDINGS: Portable chest was obtained following placement of a left upper extremity PICC line. The c atheter tip projects over the SVC..
[2023-12-24] MEDS: ALPRAZOLAM 0.25 MG TABLET PO ONE (16:41)
[2023-12-24] MEDS: Mupirocin NASAL 2 APPL/1 GM TUBE NAS SCH (20:50)
--- NOTE | 2023-12-24 23:39 | PN ---
Date of Progress Note: 12/24/2023 Subjective: The patient was seen this morning for followup. No new complaints or problems reported by the patient. She was lying in bed, not in any distress, on BiPAP, which was started yesterday breann michel after respiratory therapist contacted me and informed me that the patient was still remaining hy poxic on nasal cannula oxygen. She has tolerated BiPAP very well overnight. Daughter was with her a t bedside. The patient did drink 3 cans of Ensure yesterday, but did not eat much and she had this E nsure after I explained her importance of using this nutritional supplement and today she was encoura ged to continue to do so. Objective: Vital Signs: Reviewed. HEENT: Unremarkable. Lungs: Bilateral good equal air entry with presence of rales noted in lower lung yi, somewhat be tter today than yesterday. Heart: Sounds normal. Abdomen: Soft. Bowel sounds normal. No guarding, rigidity, tenderness, distention. Extremities: No leg edema. Laboratory Data: Sodium 132, potassium 3.6, chloride 99, bicarb 27, BUN 23, creatinine 0.95, glucose 116. Impression: 1.Chronic diastolic heart failure, with acute exacerbation. 2.Acute respiratory failure with hypoxia. 3.Coronary artery disease. 4.Hypertension. 5.Pneumonia. 6.Peripheral vascular disease. 7.Chronic anticoagulation therapy. 8.Chronic atrial fibrillation. Plan: We will go ahead and continue amiodarone as she takes for atrial fibrillation. Continue aspir in and Eliquis. The patient's WBC count today has gone up to 21, and I am definitely concerned about pneumonia on top of congestive heart failure, so we will go ahead and start her on Zosyn as per orde r. Continue oxygen replacement therapy and BiPAP for respiratory failure with hypoxia. We will cont inue Lasix and we will monitor electrolytes and renal function per order as well as chest x-ray tomor row. The patient's daughter informed me today that yesterday she was going through some paperwork an moises found out the patient's paperwork that she had done several years ago and that basically stated damian t she did not want any heroic measures in the event of cardiopulmonary arrest and this is different t mcclain what the patient told me because yesterday during my discussion with her in presence of the ivorye nt's daughter, the patient had informed me that she wanted everything done and we have to go with pascual osei the patient's current decision is. So, once again today in presence of daughter, I did talk to the patient regarding her advance directives and today she tells me that she does want CPR and defibrill ation type of aggressive measures, but she does not want to be placed on life support machine, so aft er confirming this with her, order was placed for advance directive to be do not intubate. Overall, prognosis is poor and I will see her tomorrow for followup and PICC line was ordered. LUIS/MODL Voice ID: [id number] Report ID: [id number]
--- NOTE | 2023-12-24 23:57 | PN ---
Date of Progress Note: 12/24/2023 Subjective: Seen at bedside, required BiPAP yesterday. She gets easily hypoxic without BiPAP. On B iPAP, she is breathing comfortably. Review of Systems: Shortness of breath, orthopnea, lower extremity edema with improvement. Physical Examination: Vital Signs: Reviewed. Head and Neck: Pupils are equal, reactive to light. Intact eye movements. No JVD. No cervical lym phadenopathy. Neck is supple. Thyroid is not enlarged. Lungs: Decreased breathing sounds with crackles in both bases. No accessory muscle use or muscle re traction. Heart: Irregularly irregular. No extra sounds. Abdomen: Soft, nontender. Bowel sounds positive. No organomegaly. No masses or hernia. No rigidi ty or rebound. Extremities: No clubbing, cyanosis. Trace edema. Neurologic: Alert, awake, oriented x3. No acute focal deficits appreciated. Investigations: BUN 23, creatinine 0.95. Assessment/recommendation: 1.Acute hypoxic respiratory failure, definitely heart failure is part of that. On Lasix, she diures ed very well. Changed Lasix to q.12 hours now. Monitor BUN, creatinine, electrolytes. Probably als o part of her respiratory failure is due to pneumonia. She is on wide-spectrum antibiotics. 2.Atrial fibrillation, rate is controlled. Continue current management. 3.Acute on chronic diastolic heart failure exacerbation. Plan as above. 4.Likely pneumonia, on wide spectrum antibiotics. SR/MODL Voice ID: [id number] Report ID: [id number]
[2023-12-25] MEDS: ALPRAZOLAM 0.25 MG TABLET PO ONE (00:58)
[2023-12-25 06:50] LABS: Anion Gap 9.1 mEq/L (5.0-15.0); Magnesium 1.7 mg/dL (1.6-2.4); Potassium 4.1 mEq/L (3.5-5.1)
[2023-12-25 07:04] LABS: Absolute Basophils 0.1 K/uL (0-0.5); Absolute Lymphocytes (CBC) 0.4 K/uL (0.7-4.9); Absolute Monocytes 0.8 K/uL (0.1-1.3); Absolute Neutrophil 17.7 K/uL (1.8-8.0); Basophils % 0.4 % (0-1.3); Hematocrit 25.1 % (36.0-45.0); Hemoglobin 8.1 g/dL (12.0-15.0); MCH 26.5 pg (27.0-35.0); MCHC 32.4 g/dL (32.0-36.0); MPV 7.6 fL (7.6-11.3); Monocytes % 4.4 % (3.3-12.3); Neutrophils % 93.2 % (41.7-73.7); Platelets 312 thou/uL (152-406); RBC Red Blood Cell Count 3.06 M/uL (3.86-4.86)
--- NOTE | 2023-12-25 07:33 | RAD REPORT ---
EXAM DESCRIPTION: RAD - Chest Single View - 12/25/2023 6:01 am CLINICAL HISTORY: CHF COMPARISON: Chest Single View dated 12/24/2023; Chest Single View dated 12/23/2023; Chest Single View dated 12/22/2023; Chest Single View dated 12/18/2023; Chest Single View dated 09/22/2022; Chest Abd Pelvis Wo Con dated 12/10/2023 FINDINGS: Lines: Left subclavian approach PICC with tip overlying the SVC in satisfactory position. Lungs: Diffusely coarsened pulmonary interstitium. This is unchanged since 12/24/2023. Background of emphysema. Pleural: Suspect small pleural effusions. Cardiac: Cardiomegaly. Mediastinum: Within normal limits. Bones: No acute fractures. ACDF in the cervical spine . Other: None IMPRESSION: Diffusely coarsened pulmonary interstitium which may reflect a combination of edema and/ or pneumonia. Aeration is unchanged compared with yesterday (12/24/2023).
--- NOTE | 2023-12-25 09:18 | PN ---
Date of Progress Note: 12/25/2023 Subjective: The patient was sent this morning for followup. She was lying in bed, on BiPAP. Daught er was with her at bedside. Daughter reports that during nighttime, the patient was trying to take o ff BiPAP from time to time. Yesterday, she had 3 cans of Ensure, very little amount of food, but for last 2 days, at least she is having 3 cans of Ensure on a daily basis. Objective: Vital Signs: Reviewed. HEENT: Unremarkable. Lungs: Bilateral rales noted, unchanged from yesterday. Heart: Sounds normal. Abdomen: Soft. Bowel sounds normal. No guarding, rigidity, tenderness, distention. Extremities: No leg edema. Laboratory Data: White count 19, hemoglobin 8.1, platelets 312. Sodium 133, potassium 4.1, chloride 100, bicarb 28, BUN 32, creatinine 1.25, glucose 104, magnesium 1.7. Chest x-ray continues to show extensive bilateral opacities, unchanged. Impression: 1.Pulmonary edema. 2.Chronic diastolic heart failure, with acute exacerbation. 3.Pneumonia. 4.Anemia. 5.Acute kidney injury. 6.Chronic atrial fibrillation. 7.Chronic anticoagulation therapy. 8.Acute respiratory failure with hypoxia. Plan: We will go ahead and continue oxygen along with BiPAP. We will go ahead and continue IV Lasix . Renal function has deteriorated between yesterday and today and this is unfortunately due to IV di uretic therapy. The patient needs aggressive IV diuretic therapy with her ongoing pulmonary edema an d congestive heart failure problem. So at this point, we will continue current therapy with monitori ng of renal function and we will repeat blood work tomorrow. Depending on her renal function tomorro w, we will make decision whether we need to cut back on her diuretic therapy or not. For pneumonia, she was started on Zosyn. WBC count is slightly better today than yesterday and we will continue thi s current antibiotic at this point and repeat CBC tomorrow for followup. The patient was encouraged to drink 4 cans of Ensure today instead of 3 cans. Continue current anticoagulation therapy for anem ia. No need for further intervention except monitoring and we will repeat blood work tomorrow. Depe nding on hemoglobin, we will decide if she needs blood transfusion or not, but there is no such need at this point today. The patient is remaining in bed and is at high risk of decubitus ulcer and I sanchez ve asked nursing staff to see if we can put her on air mattress type of bed. Overall, prognosis is p oor and details were discussed with daughter. LUIS/STEPHANI Voice ID: [id number] Report ID: [id number]
[2023-12-25] MEDS: FUROSEMIDE 40 MG/4 ML VIAL IV SCH (09:55)
[2023-12-25] MEDS: ALPRAZOLAM 0.25 MG TABLET PO PRN (13:13)
[2023-12-25] MEDS: MORPHINE 2 MG/ML SYR IV PRN (20:39)
[2023-12-25] MEDS ORDERED: MAGNESIUM OXIDE 400 MG TAB ONE (21:06)
[2023-12-25] MEDS ORDERED: ATORVASTATIN 40 MG TAB ONE (21:06)
[2023-12-25] MEDS ORDERED: AMIODARONE HCL 200 MG TAB ONE (21:06)
[2023-12-25] MEDS ORDERED: FAMOTIDINE 20 MG TAB ONE (21:07)
[2023-12-25] MEDS ORDERED: ALPRAZOLAM 0.25 MG TABLET ONE (21:08)
--- NOTE | 2023-12-25 22:01 | RAD REPORT ---
EXAM DESCRIPTION: RAD - Abdomen 1 View (KUB) - 12/25/2023 7:09 pm CLINICAL HISTORY: Dobhoff Placement COMPARISON: No comparisons TECHNIQUE: Single AP view of the abdomen. FINDINGS: Proximal positioning of the enteric tube, with tip projecting over the body of the stomach . Nonobstructive bowel gas pattern. No air-fluid levels, free air, or pneumatosis. No suspicious calcif ications. No significant bony abnormality. IMPRESSION: Proximal positioning of the enteric tube, with tip projecting over the body of the stoma ch.
[2023-12-25] MEDS: JEVITY 1.5 CAL LIQUID 1,000 ML BOT FT SCH (22:52)
[2023-12-26] MEDS ORDERED: NA CHLORIDE 0.9% 100 ML ONE (00:28)
[2023-12-26] MEDS ORDERED: PIPERACIL/TAZO 3.375 GM VIAL IV ONE (00:28)
[2023-12-26] MEDS ORDERED: cloNIDine HCL 0.1 MG TAB ONE (03:20)
[2023-12-26 05:39] LABS: Absolute Lymphocytes (CBC) 0.4 K/uL (0.7-4.9); Absolute Monocytes 0.8 K/uL (0.1-1.3); Absolute Neutrophil 15.8 K/uL (1.8-8.0); Basophils % 0.3 % (0-1.3); Hemoglobin 7.8 g/dL (12.0-15.0); Lymphocytes % 2.3 % (15.3-44.8); MCH 26.4 pg (27.0-35.0); MCHC 32.4 g/dL (32.0-36.0); MCV 81.3 fL (80-100); MPV 7.7 fL (7.6-11.3); Monocytes % 4.6 % (3.3-12.3); Neutrophils % 92.8 % (41.7-73.7); Platelets 338 thou/uL (152-406); RBC Red Blood Cell Count 2.96 M/uL (3.86-4.86); Red Cell Distribution Width 19.1 % (12.1-15.2)
[2023-12-26 05:58] LABS: Anion Gap 10.8 mEq/L (5.0-15.0); Potassium 3.8 mEq/L (3.5-5.1)
--- NOTE | 2023-12-26 08:28 | RAD REPORT ---
EXAM DESCRIPTION: Maria C Single View12/26/2023 4:58 am CLINICAL HISTORY: Shortness of breath COMPARISON: December 25, 2023 FINDINGS: Minimal worsening in extensive bilateral pulmonary opacities. The heart remains enlarged. Tip of a Dobhoff tube 25 millimeters into stomach IMPRESSION: Minimal worsening extensive bilateral pulmonary opacities which may represent pulmonary edema or pneumonia Tip of a Dobhoff tube 25 millimeters into the stomach. It should be advanced
[2023-12-26] MEDS ORDERED: MAGNESIUM OXIDE 400 MG TAB ONE (09:08)
[2023-12-26] MEDS ORDERED: AMIODARONE HCL 200 MG TAB ONE (09:08)
[2023-12-26] MEDS: METHYLPREDNISOLONE 40 MG INJ IV SCH ×2 (10:37→12:06)
--- NOTE | 2023-12-26 10:41 | P.CNS ---
Date of Consult: 12/26/23 Reason for Consult: Respiratory failure Chief Complaint: Respiratory failure History of Present Illness: Patient is 78 years of age was transferred from the floor follow-up respiratory distress chest x-ray has worsened shows diffuse bilateral interstitial changes history of diastolic heart failure with A-fib currently on BiPAP alert responsive cussed with daughter baseline functioning is poor she is able to use a walker to ambulate lives in an and an apartment with her declining steadily former smoker quit 3 years ago has a history of COPD renal function has worsened also has a UTI Klebsiella isolated in the urine Allergies codeine Adverse Reaction (Verified 11/13/23 21:06) worsen my hernia Home Medications: Amiodarone HCl [Cordarone*] 200 mg PO BID 11/14/23 Aspirin Chewable [Aspirin Chewable*] 81 mg PO DAILY 11/14/23 Atorvastatin Calcium [Lipitor] 80 mg PO BEDTIME 11/14/23 Duloxetine HCl [Cymbalta] 60 mg PO BID 11/14/23 Famotidine [Pepcid*] 20 mg PO BEDTIME 11/14/23 Fluticasone/Umeclidin/Vilanter [Trelegy Ellipta 100-62.5-25] 1 puff IH DAILY 11/14/23 Furosemide [Lasix*] 60 mg PO BID 11/14/23 Levothyroxine Sodium 100 mcg PO DAILY 11/14/23 Lisinopril [Zestril] 20 mg PO BID 11/14/23 Methscopolamine [place] 5 mg PO DAILY 11/14/23 Mometasone/Formoterol [Dulera 200 Mcg/5 Mcg Inhaler] 2 puff IH BID 11/14/23 Omeprazole [Prilosec] 40 mg PO DAILY 11/14/23 Potassium Chloride [Klor-Con 10] 10 meq PO DAILY 11/14/23 Sertraline [Zoloft*] 25 mg PO DAILY 11/14/23 Trazodone HCl 150 mg PO BEDTIME 11/14/23 Apixaban [Eliquis] 2.5 mg PO BID 12/11/23 Magnesium [Magnesium Gluconate] 400 mg PO BID 12/11/23 Metoprolol Succinate [Toprol Xl] 50 mg PO BID 12/11/23 - Past Medical/Surgical History Diabetic: No -: Hypertension -: Hypothyroidism -: Depression -: non-hodgkins lymphoma 2009 -: Hx DVT -: CHF -: Afib -: Incontinence -: Hysterectomy -: Cholecystectomy -: Watchman procedure -: Cardiac stent 2021 -: RLE stent -: Hemorrhoidectomy Psychosocial/ Personal History: Patient lives at home with her daughter - Family History Father Medical History: Heart disease Mother Medical History: Diabetes Sister Medical History: Cancer - Social History Smoking Status: Unknown if ever smoked Alcohol use: No CD- Drugs: No Caffeine use: Yes Place of Residence: Home Review of Systems Unremarkable General: Weakness Respiratory: Shortness of Breath Physical Examination Temp Pulse Resp BP Pulse Ox 98.6 F 59 23 H 151/67 H 82 L 12/26/23 08:00 12/26/23 10:00 12/26/23 10:00 12/26/23 10:00 12/26/23 10:00 General: Alert, Oriented x3, Mild distress Respiratory: Crackles/rales Cardiovascular: No edema, Regular rate/rhythm, Normal S1 S2 - Problems (1) ARDS (adult respiratory distress syndrome) Current Visit: Yes Status: Acute Plan: Patient is 78 years of age has developed ARDS diffuse bilateral interstitial changes likely acute interstitial pneumonia trial of steroids continue with Zosyn for now patient's renal function has worsened patient was on Lasix this was discontinued Klebsiella isolated in the urine manage steroids titrate sat to 90% DC amiodarone possibility of amiodarone induced injury labs reviewed liver function tests worse/white count is declined BNP is over 21,000 s/p cardiac cath on stentable coronary artery disease
--- NOTE | 2023-12-26 11:01 | PN ---
Date of Progress Note: 12/26/2023 Subjective: The patient was seen this morning. She was in ICU and her daughter and were wit h her at bedside. Yesterday afternoon, after I talked to nurse, also talked to the patient's son on the phone and decision was made to transfer her to ICU because she was getting extremely hypoxic with in 10 seconds when BiPAP was removed and nasal cannula oxygen was given. During time of medication a dministration, her oxygen saturation would drop down to like 60% or so within 10 seconds and she was not able to eat or drink anything. She had maybe half to 3/4th of 1 can of Ensure yesterday and this is lot less compared to previous day. The patient is able to maintain adequate oxygenation with BiP AP. I did communicate with son regarding option of Dobhoff tube placement for nutritional support an d he was agreeable, so we transferred her to ICU and after bringing her to ICU, did communicate with the nursing staff and provided with orders for Dobhoff tube placement which was placed and tube feedi ng was started after verifying position. She is tolerating tube feeding very well and this morning, she was at 20 cc/hour and rate was just increased to 30 cc/hour. Physical Examination: Vital Signs: Reviewed. HEENT: Unremarkable. Lungs: Bilateral equal air entry with presence of some rales noted in lower lung yi. Heart: Sounds normal. Abdomen: Soft. Bowel sounds normal. No guarding, rigidity, tenderness, distention. Extremities: No leg edema. PICC line in place. Skin: Surrounding PICC line insertion site appears normal with some dry blood, but no fresh blood or no active bleeding. Laboratory Data: This morning, white count 17, hemoglobin 7.8, platelets 330. Sodium 136, potassium 3.8, chloride 101, bicarb 28, BUN 44, creatinine 1.44, glucose 125, magnesium 2. Chest x-ray shows extensive bilateral opacities in both lungs. Impression: 1.Acute respiratory failure with hypoxia. 2.Pneumonia. 3.Congestive heart failure, chronic, diastolic, with acute exacerbation. 4.ARDS. 5.Acute kidney injury. 6.Anemia. 7.Chronic atrial fibrillation. 8.Chronic anticoagulation therapy. Plan: We will go ahead and continue current antibiotic which is Zosyn. The patient's white count is responding and it is slowly improving for last 2 days. Pulmonary consultation has been requested fr Dr. Andrews and I have asked nurse today to hold amiodarone until Dr. Andrews sees her as we nee d to think about possibility of any pulmonary toxicity from amiodarone or not at this time. She is o n chronic anticoagulation therapy with Eliquis. We will continue that. Her Lasix was discontinued y afternoon when Dr. Domingo called me and was concerned about worsening renal function, so she did get 1 dose yesterday morning, but after that, we discontinued this morning. Renal function has deteriorated and when she was initially admitted, her creatinine was around 2 to 2.4 range. We will continue to monitor her renal function. Monitor intake and output records. Continue current nutriti onal support with Dobhoff tube feeding. Rate was increased to 30 cc/hour and nurse will increase the rate as she tolerates 250 cc/hour. Chest x-ray result shows deep of the Dobbhoff tube is about 2.5 cm in the stomach. So, nurse was advised to advance catheter and then reach the x-ray for position. Overall, prognosis is poor. Including poor prognosis, all those details were discussed with the rosalind fletcher's daughter as well as today. I will see her tomorrow for followup. LUIS/MODL Voice ID: [id number] Report ID: [id number]
--- NOTE | 2023-12-26 12:38 | RAD REPORT ---
EXAM DESCRIPTION: RAD - Abdomen 1 View (KUB) - 12/26/2023 12:28 pm CLINICAL HISTORY: Device placement Dobhoff tube placement FINDINGS: The tip of a Dobhoff tube lies within the gastric body
[2023-12-26] MEDS ORDERED: ALPRAZOLAM 0.25 MG TABLET ONE (20:01)
[2023-12-26] MEDS ORDERED: MORPHINE 2 MG/ML SYR ONE (22:01)
[2023-12-27] MEDS ORDERED: PIPERACIL/TAZO 3.375 GM VIAL IV ONE (00:58)
[2023-12-27] MEDS ORDERED: NA CHLORIDE 0.9% 100 ML ONE (00:58)
[2023-12-27] MEDS ORDERED: cloNIDine HCL 0.1 MG TAB ONE (03:13)
[2023-12-27 05:39] LABS: Absolute Lymphocytes (CBC) 0.4 K/uL (0.7-4.9); Absolute Monocytes 0.6 K/uL (0.1-1.3); Absolute Neutrophil 14.3 K/uL (1.8-8.0); Basophils % 0.3 % (0-1.3); Hematocrit 24.1 % (36.0-45.0); Hemoglobin 7.6 g/dL (12.0-15.0); Lymphocytes % 2.3 % (15.3-44.8); MCH 25.6 pg (27.0-35.0); MCHC 31.5 g/dL (32.0-36.0); MCV 81.1 fL (80-100); MPV 7.9 fL (7.6-11.3); Monocytes % 3.9 % (3.3-12.3); Neutrophils % 93.5 % (41.7-73.7); Nucleated Red Blood Cells % 0.1 % (0-0); Platelets 363 thou/uL (152-406); RBC Red Blood Cell Count 2.97 M/uL (3.86-4.86); Red Cell Distribution Width 18.8 % (12.1-15.2)
[2023-12-27 05:56] LABS: Magnesium 2.6 mg/dL (1.6-2.4)
[2023-12-27] MEDS ORDERED: MORPHINE 2 MG/ML SYR ONE (06:02)
--- NOTE | 2023-12-27 09:13 | RAD REPORT ---
EXAM DESCRIPTION: RADChest Single View12/27/2023 6:47 am CLINICAL HISTORY: CHF, ARDS COMPARISON: Abdomen 1 View (KUB) dated 12/26/2023; Chest Single View dated 12/26/2023; Abdomen 1 View (KUB) dated 12/25/2023; Chest Single View dated 12/25/2023 TECHNIQUE: Portable AP view of the chest. FINDINGS: Stable patchy alveolar and interstitial opacities dating back to 12/25/2023. Enteric tube in place. Left arm PICC again terminates at the distal SVC level. No pneumothorax or effusion. The c ardiomediastinal contours are unremarkable. IMPRESSION: Stable extensive opacities, may represent pneumonia or ARDS.
--- NOTE | 2023-12-27 11:21 | P.PN ---
Subjective Date of Service: 12/27/23 Chief Complaint: Respiratory failure No change in patient's condition she still continues to remain hypoxic alert responsive cooperative family members at the bedside and able to tolerate coming off the BiPAP is on 85% FiO2 tolerating tube feeds Review of Systems General: Weakness Respiratory: Shortness of Breath Physical Examination - Vital Signs Temperature: 98.2 F Blood Pressure: 146/63 Pulse: 53 Respirations: 17 Pulse Ox (%): 96 - Physical Exam General: Alert, Oriented x3, Cooperative Respiratory: Crackles/rales Cardiovascular: No edema, Regular rate/rhythm Gastrointestinal: Normal bowel sounds, Soft and benign, Non-distended Assessment And Plan - Current Problems (Diagnosis) (1) ARDS (adult respiratory distress syndrome) Current Visit: Yes Status: Acute Plan: Patient has developed ARDS continue with steroid will function is improving amiodarone discontinued count is declined to 15.3 pressure is also improved there is no evidence of clinical sepsis can change to biotics via NG tube signs stable continue with IV Solu-Medrol x-ray no change diffuse interstitial lung disease
--- NOTE | 2023-12-27 13:14 | PN ---
Date of Progress Note: 12/27/2023 Subjective: Patient was seen this morning for followup. Her daughter and other family members were with her at bedside and later on her also arrived. The patient remains on BiPAP, and because of the discomfort that BiPAP is causing on her face, she tries to take it off very frequently. Yest josue, nursing staff tried to take the BiPAP off for a very brief period of time to provide oral care and to give any oral medications or just maybe sip of water and she dropped her oxygen saturation si gnificantly into 70% range and took a while to recover. The patient's daughter informed me that yest evening the patient had a discussion with respiratory therapist asking her what would happen if she takes the mask off and just uses the oxygen per nasal cannula and respiratory therapist explaine d it to her that she will not be able to maintain adequate level of oxygenation, and eventually, she will kind of slip into respiratory failure with coma and pass away. I explained all that today to th e patient's family member and the patient was listening to all this discussion and right now BiPAP th erapy is what keeps her going with allowing her to maintain adequate oxygenation and if we stop it an d put her just on regular nasal cannula oxygen, she will not be able to maintain adequate oxygenation and this will result in rapid decline with the end result being . If patient makes such decisi on to go through withdrawal of BiPAP and put her on oxygen per nasal cannula and let the God and natu re take its course, in that case we will have to go ahead and make transition to inpatient hospice ca re and all these details were discussed with her as well today in presence of family. Yesterday, we stopped her amiodarone as they are thinking about possibility of acute lung injury from amiodarone an d Dr. Andrews was consulted from Pulmonary and he also agreed and he has started her on IV steroid. The patient is tolerating her nasogastric tube feeding per order. She has a small area of skin karen kdown on her face due to pressure from the BiPAP machine. Physical Examination: HEENT: Unremarkable. Lungs: Bilateral equal air entry with some rales in lower lung yi. Cardiac: Heart sounds normal. Abdomen: Soft. Bowel sounds normal. No guarding, rigidity, tenderness, distention. Extremities: No leg edema. Left arm PICC line insertion site appears normal. Laboratory Data: White count 15.3, hemoglobin 7.6, platelets 363. Sodium 137, potassium 4, chloride 104, bicarb 30, BUN 54, creatinine 1.30, glucose 167. Impression: 1.Acute respiratory failure with hypoxia. 2.Pneumonia. 3.Congestive heart failure, chronic, diastolic, with acute exacerbation. 4.Anemia. 5.Acute kidney injury. 6.Chronic atrial fibrillation. 7.Chronic anticoagulation therapy. Plan: We will go ahead and continue current Dobhoff tube feeding. She is tolerating that very well. Continue Eliquis, metoprolol per order. Continue current antibiotic, which is Zosyn and the patien t seems to be responding well with improvement in WBC count. Renal function is also slightly better today compared to yesterday and we will continue to monitor that. The patient is on IV Solu-Medrol 4 0 mg every 8 hours as of yesterday. We will continue that. We will repeat chest x-ray and blood wor k tomorrow. I had a long discussion with the patient and the patient's family regarding overall prog nosis, which is very poor, and if and when patient decides to stop BiPAP support, in that case we carson l request consultation from social service to make arrangements for inpatient hospice care as the pat chance's condition will be expected to decline rapidly at that time. I will see her tomorrow for erika fraser. All questions were answered today to family members. LUIS/MODL Voice ID: [id number] Report ID: [id number]
--- NOTE | 2023-12-27 18:19 | PN ---
Date of Progress Note: 12/27/2023 Subjective: Patient was seen by bedside. She is requiring ongoing BiPAP because of respiratory fail ure, shortness of breath. No edema. No orthopnea. No fever. Review of Systems: Positive for shortness of breath. No fever. No nausea, vomiting, diarrhea. No chest pain. No dysu oracio, polyuria, or urinary urgency. All other systems reviewed are negative. Physical Examination: VITAL SIGNS: Reviewed. HEAD AND NECK: Pupils are equal, reactive to light. Intact eye movements. No JVD. No cervical lym phadenopathy. NECK: Supple. Thyroid is not enlarged. Lungs: Rhonchi bilaterally. No accessory muscle use or muscle retraction. HEART: Regular rate and rhythm. No extra sounds. ABDOMEN: Soft and nontender. Bowel sounds positive. No organomegaly. No masses or hernia. No rig idity or rebound. EXTREMITIES: No edema, clubbing, cyanosis. Intact pulses. SKIN: No rash noted. NEUROLOGIC: Alert, awake, oriented x3. No focal associated lymph nodes. No cervical lymphadenopath y. Investigations: Labs reviewed. Assessment And Recommendation: 1.Acute hypoxic respiratory failure, likely due to acute respiratory distress syndrome and pneumonia . She is not fluid overloaded. Recommend to keep the Lasix on hold and Pulmonary is on the case. S he is on wide-spectrum antibiotics and Solu-Medrol. 2.Atrial fibrillation, rate is controlled. Agree with discontinuation of amiodarone due to lung inj ury. Continue Eliquis. Use metoprolol for rate control. 3.Hypertension. Continue current therapy. 4.Dyslipidemia. Continue statin. SR/MODL Voice ID: [id number] Report ID: [id number]
[2023-12-28] MEDS ORDERED: cloNIDine HCL 0.1 MG TAB ONE ×3 (02:13→18:53)
[2023-12-28 04:59] LABS: Absolute Basophils 0.1 K/uL (0-0.5); Absolute Lymphocytes (CBC) 0.4 K/uL (0.7-4.9); Absolute Monocytes 0.7 K/uL (0.1-1.3); Absolute Neutrophil 16.5 K/uL (1.8-8.0); Basophils % 0.3 % (0-1.3); Hematocrit 23.7 % (36.0-45.0); Hemoglobin 7.6 g/dL (12.0-15.0); MCHC 32.1 g/dL (32.0-36.0); MCV 81.2 fL (80-100); MPV 7.6 fL (7.6-11.3); Monocytes % 3.9 % (3.3-12.3); Neutrophils % 93.8 % (41.7-73.7); Nucleated Red Blood Cells % 0.2 % (0-0); Platelets 432 thou/uL (152-406); RBC Red Blood Cell Count 2.92 M/uL (3.86-4.86); Red Cell Distribution Width 19.1 % (12.1-15.2)
[2023-12-28 05:15] LABS: Anion Gap 8.1 mEq/L (5.0-15.0); Potassium 4.1 mEq/L (3.5-5.1)
[2023-12-28 05:22] LABS: Band Neutrophils 10 % (0-1); Differential Total Cells Count 100; Lymphocytes 5 % (15-42); Monocytes 2 % (0-10); Segmented Neutrophils 83 % (40-80)
[2023-12-28 05:23] LABS: Anisocytosis 1+; Blood Morphology Comment NOTED (NOT SEEN); Hypochromasia 1+; Microcytosis 1+; Platelet Estimate ADEQ
--- NOTE | 2023-12-28 07:04 | RAD REPORT ---
EXAM DESCRIPTION: Maria C Single View12/28/2023 5:45 am CLINICAL HISTORY: Shortness of breath COMPARISON: December 27, 2023 FINDINGS: No significant change in extensive bilateral pulmonary opacities Cardiomegaly PICC line and. .Dobhoff tube remain place IMPRESSION: No significant change in the extensive bilateral pulmonary opacities
[2023-12-28] MEDS ORDERED: MORPHINE 2 MG/ML SYR ONE ×3 (08:51→21:59)
[2023-12-28] MEDS: METHYLPREDNISOLONE 40 MG INJ IV SCH (09:00)
[2023-12-28] MEDS: AMLODIPINE 5 MG TAB PO SCH ×2 (09:01→20:27)
[2023-12-28] MEDS ORDERED: ALPRAZOLAM 0.25 MG TABLET ONE (12:10)
[2023-12-28] MEDS: AMLODIPINE 5 MG TAB PO ONE (16:16)
[2023-12-28] MEDS ORDERED: LACTULOSE 20 GM/30 ML UCUP ONE (18:53)
[2023-12-28] MEDS: LACTULOSE 20 GM/30 ML UCUP PO PRN (18:54)
[2023-12-28] MEDS ORDERED: AMLODIPINE 5 MG TAB ONE (19:25)
[2023-12-28] MEDS ORDERED: MAGNESIUM OXIDE 400 MG TAB ONE (19:25)
[2023-12-28] MEDS ORDERED: ATORVASTATIN 40 MG TAB ONE (19:25)
[2023-12-28] MEDS ORDERED: APIXABAN 5 MG TABLET ONE (19:25)
[2023-12-28] MEDS ORDERED: METHYLPREDNISOLONE 40 MG INJ ONE (19:26)
[2023-12-28] MEDS ORDERED: MUPIROCIN 2% OINT 22GM TUBE TOP ONE (19:26)
[2023-12-28] MEDS ORDERED: FAMOTIDINE 20 MG TAB ONE (19:26)
--- NOTE | 2023-12-28 19:47 | PN ---
Date of Progress Note: 12/28/2023 Subjective: The patient was seen this morning for followup. No new complaints or problems reported by nursing staff. She was in ICU lying in bed on BiPAP. Intake and output records reviewed. Physical Examination: Vital Signs: Reviewed. HEENT: Unremarkable. Lungs: Bilateral equal air entry. No wheezing. No rales. Heart: Sounds normal. Abdomen: Soft. Bowel sounds normal. No guarding, rigidity, tenderness, distention. Extremities: No leg edema. Laboratory Data: White count 17.6, hemoglobin 7.6, platelets 430. Sodium 137, potassium 4.1, chlori de 102, bicarb 31, BUN 67, creatinine 1.20, glucose 177. Impression: 1.Acute respiratory failure with hypoxia. 2.Pneumonia. 3.ARDS. 4.Anemia. 5.Acute kidney injury. 6.Chronic diastolic heart failure. 7.Hypertension. 8.Chronic atrial fibrillation. 9.Chronic anticoagulation therapy. Plan: We will go ahead and continue current IV steroid. She is on Solu-Medrol 40 mg IV every 8 hour s and we will continue that. Amiodarone was discontinued over the weekend with possibility of lung t oxicity. We will continue to follow with Dr. Andrews. Continue current Eliquis and the patient is on amlodipine and clonidine for high blood pressure, and today, we had to give extra dose of amlodipi ne in the afternoon. Hemoglobin is stable. We will continue to monitor. Her BUN and WBC count has gone up today, which could be very well due to steroids and we will continue to monitor that. Overall, prognosis is poor. I will see her tomorrow for followup. Continue current Zosyn and chest x-ray today remains unchanged. LUIS/MODL Voice ID: [id number] Report ID: [id number]
[2023-12-28] MEDS ORDERED: ZOLPIDEM TARTRATE 5 MG TABLET ONE (23:16)
[2023-12-29] MEDS ORDERED: ALPRAZOLAM 0.25 MG TABLET ONE (01:56)
[2023-12-29] MEDS ORDERED: PIPERACIL/TAZO 3.375 GM VIAL IV ONE (01:57)
[2023-12-29] MEDS ORDERED: NA CHLORIDE 0.9% 100 ML ONE (01:57)
[2023-12-29] MEDS ORDERED: METOPROLOL TAR 25 MG TAB ONE (06:15)
[2023-12-29 07:11] VITALS: BMI 25.5
--- NOTE | 2023-12-29 08:02 | PN ---
Date of Progress Note: 12/29/2023 Subjective: Seen by bedside. Continues to be in respiratory failure requiring BiPAP around the [facility]. Review of Systems: No chest pain, but there is significant shortness of breath at rest requiring BiPAP to maintain [place]. No nausea, vomiting, diarrhea, fever, skin rash. All other systems reviewed, they are negat kayley. Objective: Vital Signs: Reviewed. Head and Neck: Pupils are equal, reactive to light. Intact eye movements. No JVD. No cervical lym phadenopathy. Neck is supple. Thyroid is not enlarged. Lungs: Diffuse rhonchi bilaterally and wheezing and increased respiratory effort. Heart: Regular rate and rhythm. No extra sounds. Abdomen: Soft, nontender. Bowel sounds positive. No organomegaly. No masses or hernia. No rigidi ty or rebound. Extremities: No edema, clubbing, cyanosis. Intact pulses. Skin: No rash or nodule. Neurologic: Alert, awake, oriented x3. No acute focal deficits appreciated. Investigations: Labs reviewed. Assessment/recommendation: 1.Acute hypoxic respiratory failure due to ARDS and likely bacterial pneumonia, on wide-spectrum ant ibiotics, Solu-Medrol and BiPAP. Pulmonary on board. 2.Atrial fibrillation. She is in sinus. Continue current management including Eliquis. 3.CHF, systolic. Appears to be euvolemic. Avoid diuretics for now as it is on the dry side. 4.Dyslipidemia. Continuous current therapy. SR/MODL Voice ID: [id number] Report ID: [id number]
[2023-12-29] MEDS: METOPROLOL TAR 25 MG TAB PO ONE (08:34)
[2023-12-29] MEDS: DEXMEDETOMIDINE HCL 200 MCG in NA CHLORIDE 0.9% 98 ML IV SCH (09:03)
[2023-12-29 11:01] VITALS: O2SAT 95
[2023-12-29] MEDS: DEXMEDETOMIDINE HCL 1,000 MCG in NA CHLORIDE 0.9% 490 ML IV SCH (14:27)
[2023-12-29] MEDS: METOPROLOL TAR 25 MG TAB PO SCH (16:41)
[2023-12-29 17:36] VITALS: BP 114/44; TEMP 98.5
--- NOTE | 2023-12-30 12:56 | P.PN ---
Subjective Date of Service: 12/29/23 Chief Complaint: Respiratory failure Patient is gradually deteriorating and now on 100% FiO2 alert responsive and was made to transfer her to hospice care Review of Systems General: Weakness, Malaise Respiratory: Shortness of Breath Physical Examination - Vital Signs Temperature: 98.5 F Blood Pressure: 114/44 Pulse: 58 Respirations: 30 Pulse Ox (%): 93 - Physical Exam General: Alert, Oriented x2 Respiratory: Clear to auscultation bilaterally, Diminished Cardiovascular: No edema, Regular rate/rhythm Assessment And Plan - Current Problems (Diagnosis) (1) ARDS (adult respiratory distress syndrome) Status: Acute Plan: Patient has developed ARDS progressive worsening increased use of off oxygen currently on 100% FiO2 unable to stay off BiPAP his decision to make her DNR hospice care and take her off BiPAP gnosis poor use changes on chest x-ray and unresponsive to steroids
== END 2023-12-29 18:22 | disposition hospice, inpatient (51) | DRG 291 ==
LOC: ER 20:41 → ERHOLD 12-11 00:57 → 3RD-ICU 12-11 08:44 → 4TH 12-18 12:21 → 3RD-ICU 12-25 18:05
PROVIDERS: ADMIT Internal Medicine; ATTEND Internal Medicine
PROC: 4A033R1 Measurement of Arterial Saturation, Peripheral, Percutaneous Approach (ICD-10-PCS; principal; 2023-12-11)
PROC: 0T9B70Z Drainage of Bladder with Drainage Device, Via Natural or Artificial Opening (ICD-10-PCS; 2023-12-11)
PROC: 02HV33Z Insertion of Infusion Device into Superior Vena Cava, Percutaneous Approach (ICD-10-PCS; 2023-12-11)
PROC: 3E043XZ Introduction of Vasopressor into Central Vein, Percutaneous Approach (ICD-10-PCS; 2023-12-11)
PROC: 5A09557 Assistance with Respiratory Ventilation, Greater than 96 Consecutive Hours, Continuous Positive Airway Pressure (ICD-10-PCS; 2023-12-23)
PROC: 5A0945A Assistance with Respiratory Ventilation, 24-96 Consecutive Hours, High Flow/Velocity Cannula (ICD-10-PCS; 2023-12-26)
PROC: 0DH67UZ Insertion of Feeding Device into Stomach, Via Natural or Artificial Opening (ICD-10-PCS; 2023-12-26)
DX: I11.0 Hypertensive heart disease with heart failure (principal); I50.33 Acute on chronic diastolic (congestive) heart failure; R57.1 Hypovolemic shock; N17.0 Acute kidney failure with tubular necrosis; J80 Acute respiratory distress syndrome; J15.0 Pneumonia due to Klebsiella pneumoniae; N30.00 Acute cystitis without hematuria; I24.89 Other forms of acute ischemic heart disease; J44.0 Chronic obstructive pulmonary disease with (acute) lower respiratory infection; E03.9 Hypothyroidism, unspecified; I48.0 Paroxysmal atrial fibrillation; E78.00 Pure hypercholesterolemia, unspecified; D64.9 Anemia, unspecified; G47.00 Insomnia, unspecified; F32.A Depression, unspecified; E86.0 Dehydration; G62.9 Polyneuropathy, unspecified; K59.00 Constipation, unspecified; I73.9 Peripheral vascular disease, unspecified; K21.9 Gastro-esophageal reflux disease without esophagitis; I25.10 Atherosclerotic heart disease of native coronary artery without angina pectoris; I25.2 Old myocardial infarction; R00.1 Bradycardia, unspecified; Z23 Encounter for immunization; Z88.5 Allergy status to narcotic agent; Z95.5 Presence of coronary angioplasty implant and graft; Z90.49 Acquired absence of other specified parts of digestive tract; Z90.710 Acquired absence of both cervix and uterus; Z87.891 Personal history of nicotine dependence
CPT/HCPCS: 36415; 36600; 51702; 71045; 71250; 74018; 74176; 80048; 80053; 80076; 81001; 82805; 82947; 83605; 83735; 83880; 84484; 85014; 85018; 85025; 85610; 86850; 86900; 86901; 86920; 87070; 87077; 87086; 87088; 87186; 87205; 90471; 90732; 93005; 94640; 94660; 94760; 97110; 97116; 97161; 97165; 97530; 97542; 99291; 99292; J0696; J1170; J1940; J2270; J2405; J2543; J2765; J2920; J3535; J7030; J7040; J7060; J7613; P9016; P9047

== ENCOUNTER 2023-12-29 18:10 | Inpatient (IN) | payer OTHER ==
[2023-12-29] MEDS ORDERED: ONDANSETRON 4 MG/2 ML VIAL IV PRN (18:38)
[2023-12-29] MEDS ORDERED: ACETAMINOPHEN 650MG/RECT SUPP PR PRN (18:40)
[2023-12-29] MEDS ORDERED: BISACODYL 10 MG RECTAL SUPP PR PRN (18:41)
[2023-12-29] MEDS ORDERED: LORazepam 2 MG/ML VIAL ONE (18:59)
[2023-12-29] MEDS ORDERED: MORPHINE 4 MG/ML SYR ONE (18:59)
[2023-12-29] MEDS: LORazepam 2 MG/ML VIAL IV SCH (19:00)
[2023-12-29] MEDS: SCOPOLAMINE HYDROBROMIDE PATCH TD ONE (19:00)
[2023-12-29] MEDS: MORPHINE 4 MG/ML SYR IV SCH (19:00)
[2023-12-29 19:49] VITALS: O2SAT 90; BMI 25.5
[2023-12-29] MEDS: MORPHINE 4 MG/ML SYR IV PRN (20:00)
[2023-12-29] MEDS: LORazepam 2 MG/ML VIAL IV PRN (20:30)
[2023-12-29 20:55] VITALS: BP 118/50
== END 2023-12-29 20:55 | disposition expired | DRG 951 ==
LOC: 3RD-ICU 18:10
PROVIDERS: ADMIT Internal Medicine Hematology & Oncology; ATTEND Internal Medicine Hematology & Oncology
DX: Z51.5 Encounter for palliative care (principal)